=== PATIENT | female | born 1995 | race Caucasian/White ===

== ENCOUNTER 2024-08-08 20:33 | Emergency (ER) | payer BC, SELFPAY ==
[2024-08-08 21:54] VITALS: BP 124/60; PULSE 60; TEMP 36.8; O2SAT 97
[2024-08-08 22:26] VITALS: BP 152/83; PULSE 72; TEMP 36.9; O2SAT 99
--- NOTE | 2024-08-08 23:00 | CT_ITS ---
The [address] [address] Patient Name: JORGE ALBERTO LUNA MRN: [id number] date: 1995 Sex: F Assigned Patient Location: ER Current Patient Location: ER Accession/Order Number: [id number] Exam Date: 08/08/2024 23:59 Report Date: 08/09/2024 01:20 At the request of: PRECIOUS MARKER Procedure: CT abdomen pelvis w con EXAM: CT abdomen pelvis w con HISTORY: LUQ abd pain COMPARISON: CT abdomen pelvis, 12/17/2019. TECHNIQUE: IV contrast enhanced CT imaging the abdomen and pelvis was performed using 100 mL of Omnipaque 300 intravenous contrast. Sagittal and coronal reconstructions are provided. Dose reduction techniques were achieved by using automated exposure control and/or adjustment of mA and/or kV according to patient size and/or use of iterative reconstruction technique. FINDINGS: CT ABDOMEN: The lung bases are clear. The heart is unremarkable. The liver, gallbladder, pancreas, spleen, adrenal glands, stomach, small bowel, aorta and IVC appear within normal limits. There is a 4 mm nonobstructing stone in the midpole of the right kidney on image 46. There are innumerable cysts throughout both kidneys, measuring up to 6.7 cm in the posterior lower pole of the right kidney on image 57. The kidneys are otherwise unremarkable. CT PELVIS: A normal appendix is seen on image 89. The colon, pelvic small bowel loops, urinary bladder and ovaries are unremarkable. There is mild endometrial fluid or thickening, likely physiologic. The uterus is otherwise unremarkable. No inflammatory fat stranding, free fluid, loculated fluid or free air is seen in the abdomen or pelvis. A small benign bone island is seen in the right L2 vertebral body. No acute osseous abnormality or suspicious bony lesion is seen. CT/CT abdomen pelvis w con IMPRESSION: 1. No acute diagnostic abnormality in the abdomen or pelvis. No specific cause of left upper quadrant pain is seen. 2. Normal spleen. No splenomegaly or focal splenic lesion. 3. Nonobstructing 4 mm right renal calculus. 4. Innumerable bilateral renal cystic lesions favoring autosomal dominant polycystic kidney disease. Electronically authenticated by: DAVID DAILEY Date: 08/09/2024 01:20
--- NOTE | 2024-08-08 23:00 | PC.NURSE ---
this patient complains of left upper abdomen pain onset a couple days this patient voices no other
[2024-08-08 23:08] LABS: Basophils Absolute Auto 0.1 10^3/uL (0.0-0.1); Basophils Percent Auto 0.6 % (0.2-2.0); Eosinophils Percent Auto 0.3 % (0.9-7.0); Hemoglobin 14.9 g/dL (12.0-16.0); Immature Granulocytes Abs Auto 0.02 10^3/uL (0.00-0.03); Immature Granulocytes Pct Auto 0.2 % (0.0-0.5); Lymphocytes Absolute Auto 2.5 10^3/uL (1.2-3.8); Mean Corpuscular HGB Conc 34.7 g/dL (29.9-35.2); Mean Corpuscular Hemoglobin 30.4 pg (26.7-34.0); Mean Corpuscular Volume 87.8 fL (81.0-99.0); Mean Platelet Volume 9.8 fL (9.5-13.5); Monocytes Absolute Auto 0.6 10^3/uL (0.3-0.8); Monocytes Percent Auto 6.6 % (1.7-12.0); Neutrophils Absolute Auto 6.1 10^3/uL (1.4-6.5); Neutrophils Percent Auto 65.3 % (43.0-75.0); Platelet Count 354 10^3/uL (150-450); Red Cell Distribution Width 11.7 % (11.0-15.0); White Blood Count 9.3 10^3/uL (4.0-11.0)
--- NOTE | 2024-08-08 23:13 | ED.ABDPAIN1 ---
HPI - Abdominal Pain General Chief Complaint: Abdominal Pain Stated Complaint: ABDOMINAL PAIN Time Seen by Provider: 08/08/24 21:57 Source: patient Mode of arrival: walk-in Limitations: no limitations History of Present Illness HPI narrative: This otherwise healthy 28-year-old female presents for evaluation of left upper quadrant abdominal pain and swelling. The patient states she had an episode of nausea and vomiting earlier today. Afterwards she felt some discomfort in her left upper quadrant and feels that it is swollen. She has a history of polycystic kidney disease. She drinks occasionally on the weekends but denies any history of chronic alcohol use. She denies the possibility of . She has been urinating normally. She has not had a fever. She denies any sore throat. She has not had any diarrhea. She also states for the past several months she has had a decreased appetite and has been less energetic than usual. She denies any weight loss. Related Data Home Medications ?Medication ?Instructions ?Recorded ?Confirmed No Known Home Medications 08/08/24 08/08/24 Allergies Allergy/AdvReac Type Severity Reaction Status Date / Time Penicillins Allergy Unknown Verified 08/08/24 22:28 Review of Systems ROS Status of ROS 10 or more systems reviewed and unremarkable except as noted in history and below Exam Narrative Exam Narrative: Vital signs and Nursing Notes reviewed: Patient is afebrile with a normal pulse, blood pressure is mildly elevated at 152/83, he is not hypoxic with pulse ox of 99% on room air General: Awake, alert, oriented, no acute distress, lying comfortably on the stretcher HEENT: Normocephalic atraumatic, mucous membranes are moist and pink, eyes are clear, normal conjunctiva, vision is grossly intact, posterior pharynx is normal in appearance. Neck: Supple, no meningeal signs, no anterior or posterior cervical lymphadenopathy Chest: Lungs are clear to auscultation with good air entry, there is no wheezing rhonchi or rales appreciated no accessory muscle use, patient is speaking in complete sentences-no chest wall tenderness to palpation CVS: Regular rate and rhythm S1-S2, no murmurs rubs or gallops, pulses are brisk and equal bilaterally ABD: Soft, nondistended, nontender, no rebound guarding or rigidity, bowel sounds are normal, no pulsatile masses appreciated, I do not appreciate any swelling of the left upper quadrant, there is no right upper quadrant tenderness, negative McBurney's point tenderness and negative Montelongo sign. Extremities: Moving all extremities, no lower extremity tenderness or swelling noted, negative Homans' sign, pulses are brisk and equal bilaterally Skin: Normal in appearance without rash,pallor, petechiae or purpura Neuro: No focal deficits Constitutional Vital Signs, click to edit/add: Last Vital Signs Temp 99.5 F 08/09/24 00:29 Pulse 55 L 08/09/24 00:29 Resp 19 08/09/24 00:29 BP 138/87 08/09/24 00:29 Pulse Ox 100 08/09/24 00:29 O2 Del Method Room Air 08/08/24 22:26 Course Vital Signs Vital signs: Vital Signs Temperature 98.3 F 08/08/24 21:54 Pulse Rate 60 08/08/24 21:54 Respiratory Rate 16 08/08/24 21:54 Blood Pressure 124/60 08/08/24 21:54 Pulse Oximetry 97 08/08/24 21:54 Oxygen Delivery Method Room Air 08/08/24 21:54 Temperature 99.5 F 08/09/24 00:29 Pulse Rate 55 L 08/09/24 00:29 Respiratory Rate 19 08/09/24 00:29 Blood Pressure 138/87 08/09/24 00:29 Pulse Oximetry 100 08/09/24 00:29 Oxygen Delivery Method Room Air 08/08/24 22:26 MDM - Abdominal Pain MDM Narrative Medical decision making narrative: This otherwise healthy 28-year-old female presents for evaluation of generalized malaise for the past 2 weeks with decreased energy and an episode of nausea with vomiting today and left upper quadrant abdominal pain. The patient thinks that her spleen is swollen. She denies any injury. She is an occasional drinker. She is not having any fevers or chills. She has no sore throat. She has no bruising or swelling. Her physical exam was benign. Her abdomen is nontender and I do not appreciate any swelling in the right upper quadrant or left upper quadrant. An IV was placed and she was medicated with IV Zofran. Routine labs are reviewed. She has a normal white count and hemoglobin. Electrolytes are normal. Lipase is normal. Urine is normal. Her test is negative. CT scan of the abdomen pelvis was ordered and shows polycystic kidney disease which the patient was aware of as well as a 4 mm stone in the right kidney. The remainder of the CT scan is normal. The CT scan was discussed with the patient and she was given a copy. She is inquiring as to why she has nausea and the pain in her right upper quadrant. I explained to her that it may be a viral syndrome or some degree of constipation however at this time she is stable for discharge. She will be discharged home with a prescription for Zofran and a note for work. Medical Records Attestation: I reviewed the patient's medical records. Medical records narrative: [place] [address] CT Scan Report Signed Patient: JORGE ALBERTO LUNA MR#: [id number] : 1995 Acct:[id number] Age/Sex: 28 / F ADM Date: 08/08/24 Loc: ER Attending Dr: Ordering Physician: Precious Miguel Date of Service: 08/08/24 Procedure(s): CT abdomen pelvis w con Accession Number(s): [id number] cc: Physician,Non-Staff M.D.~ The [place] [id number] Patient Name: JORGE ALBERTO LUNA MRN: [id number] date: 1995 Sex: F Assigned Patient Location: ER Current Patient Location: ER Accession/Order Number: [id number] Exam Date: 08/08/2024 23:59 Report Date: 08/09/2024 01:20 At the request of: PRECIOUS MIGUEL Procedure: CT abdomen pelvis w con EXAM: CT abdomen pelvis w con HISTORY: LUQ abd pain COMPARISON: CT abdomen pelvis, 12/17/2019. TECHNIQUE: IV contrast enhanced CT imaging the abdomen and pelvis was performed using 100 mL of Omnipaque 300 intravenous contrast. Sagittal and coronal reconstructions are provided. Dose reduction techniques were achieved by using automated exposure control and/or adjustment of mA and/or kV according to patient size and/or use of iterative reconstruction technique. FINDINGS: CT ABDOMEN: The lung bases are clear. The heart is unremarkable. The liver, gallbladder, pancreas, spleen, adrenal glands, stomach, small bowel, aorta and IVC appear within normal limits. There is a 4 mm nonobstructing stone in the midpole of the right kidney on image 46. There are innumerable cysts throughout both kidneys, measuring up to 6.7 cm in the posterior lower pole of the right kidney on image 57. The kidneys are otherwise unremarkable. CT PELVIS: A normal appendix is seen on image 89. The colon, pelvic small bowel loops, urinary bladder and ovaries are unremarkable. There is mild endometrial fluid or thickening, likely physiologic. The uterus is otherwise unremarkable. No inflammatory fat stranding, free fluid, loculated fluid or free air is seen in the abdomen or pelvis. A small benign bone island is seen in the right L2 vertebral body. No acute osseous abnormality or suspicious bony lesion is seen. CT/CT abdomen pelvis w con IMPRESSION: 1. No acute diagnostic abnormality in the abdomen or pelvis. No specific cause of left upper quadrant pain is seen. 2. Normal spleen. No splenomegaly or focal splenic lesion. 3. Nonobstructing 4 mm right renal calculus. 4. Innumerable bilateral renal cystic lesions favoring autosomal dominant polycystic kidney disease. Electronically authenticated by: DAVID DAILEY Date: 08/09/2024 01:20 Lab Data Attestation: I reviewed the patient's lab results. Labs: Lab Results 08/08/24 08/08/24 08/08/24 Range/Units 22:33 22:50 23:10 WBC 9.3 (4.0-11.0) 10^3/uL RBC 4.90 (4.20-5.40) 10^6/uL Hgb 14.9 (12.0-16.0) g/dL Hct 43.0 (36.0-48.0) % MCV 87.8 (81.0-99.0) fL MCH 30.4 (26.7-34.0) pg MCHC 34.7 (29.9-35.2) g/dL RDW 11.7 (11.0-15.0) % Plt Count 354 (150-450) 10^3/uL MPV 9.8 (9.5-13.5) fL Neut % (Auto) 65.3 (43.0-75.0) % Lymph % (Auto) 27.0 (20.5-60.0) % [place] % (Auto) 6.6 (1.7-12.0) % Eos % (Auto) 0.3 L (0.9-7.0) % Baso % (Auto) 0.6 (0.2-2.0) % Neut # (Auto) 6.1 (1.4-6.5) 10^3/uL Lymph # (Auto) 2.5 (1.2-3.8) 10^3/uL [place] # (Auto) 0.6 (0.3-0.8) 10^3/uL Eos # (Auto) 0.0 (0.0-0.7) 10^3/uL Baso # (Auto) 0.1 (0.0-0.1) 10^3/uL Abs Immat Gran (auto) 0.02 (0.00-0.03) 10^3/uL Imm/Tot Granulo (auto) 0.2 (0.0-0.5) % Sodium 139 (136-145) mmol/L Potassium 3.8 (3.5-5.1) mmol/L Chloride 104 (98-107) mmol/L Carbon Dioxide 24.2 (21.0-32.0) mmol/L Anion Gap 14.6 BUN 10.0 (7.0-18.0) mg/dL Creatinine 0.82 (0.55-1.02) mg/dL Est GFR ( Amer) >60 (>=60 mL/min/1.73m^2) Est GFR (Non-Af Amer) >60 (>=60 mL/min/1.73m^2) BUN/Creatinine Ratio 12.2 Glucose 87 (74-106) mg/dL Calcium 9.3 (8.5-10.1) mg/dL Total Bilirubin 0.6 (0.2-1.0) mg/dL AST 17 (15-37) U/L ALT 19 (14-59) U/L Alkaline Phosphatase 47 (46-116) U/L Total Protein 7.5 (6.4-8.2) g/dL Albumin 4.0 (3.4-5.0) g/dL Globulin 3.5 g/dL Albumin/Globulin Ratio 1.1 Lipase 21.0 (16.0-77.0) U/L Urine Color Lt. yellow (YELLOW) Urine Clarity Clear (CLEAR) Urine pH 7.5 (5.0-9.0) Ur Specific [place] 1.020 (1.005-1.025) Urine Protein Negative (NEG/TRACE) mg/dL Urine Glucose (UA) Negative (NEGATIVE) mg/dL Urine Ketones Negative (NEGATIVE) mg/dL Urine Occult Blood Negative (NEGATIVE) Urine Nitrite Negative (NEGATIVE) Urine Bilirubin Negative (NEGATIVE) Urine Urobilinogen 0.2 (0.2-1.0) EU/dL Ur Leukocyte Esterase Negative (NEGATIVE) Urine RBC 0-2 (0-2) #/HPF Urine WBC 0-2 A (NONE SEEN) #/HPF Ur Squamous Epith Cells Moderate A (NONE/RARE) #/LPF Urine Crystals None seen (None Seen) #/HPF Urine Bacteria Trace A (NONE SEEN) #/HPF Urine Casts None seen (NONE SEEN) #/LPF Urine Mucus None seen (NONE SEEN) Urine HCG, Qual Negative (NEGATIVE) Monoscreen Negative (NEGATIVE) Discharge Plan Discharge Chief Complaint: Abdominal Pain Clinical Impression: Abdominal pain, Nausea, Polycystic kidney disease Patient Disposition: Home, Self-Care Time of Disposition Decision: 01:39 Condition: Good Prescriptions / Home Meds: No Action No Known Home Medications Print Language: Indonesian Instructions: Abdominal Pain (ED) Referrals: Physician,Non-Staff, [Primary Care Provider] - 1 week
[2024-08-08 23:18] LABS: Alanine Aminotransferase 19 U/L (14-59); Albumin Globulin Ratio 1.1; Alkaline Phosphatase 47 U/L (46-116); Anion Gap 14.6; Aspartate Amino Transferase 17 U/L (15-37); BUN Creatinine Ratio 12.2; Bilirubin Total 0.6 mg/dL (0.2-1.0); Calcium 9.3 mg/dL (8.5-10.1); Carbon Dioxide 24.2 mmol/L (21.0-32.0); Chloride 104 mmol/L (98-107); Estimated GFR (African America >60 (>=60 mL/min/1.73m^2); Estimated GFR (Non-African Ame >60 (>=60 mL/min/1.73m^2); Globulin 3.5 g/dL; Glucose 87 mg/dL (74-106); Potassium 3.8 mmol/L (3.5-5.1); Sodium 139 mmol/L (136-145); Total Protein 7.5 g/dL (6.4-8.2)
[2024-08-08 23:29] LABS: HCG Qualitative Urine* NEGATIVE (NEGATIVE); Internal Control Within Normal Limits
[2024-08-08 23:31] LABS: Bilirubin Urine NEGATIVE (NEGATIVE); Blood Urine NEGATIVE (NEGATIVE); Clarity Urine CLEAR (CLEAR); Color Urine LT. YELLOW (YELLOW); Glucose Urine UA NEGATIVE (NEGATIVE); Ketones Urine NEGATIVE (NEGATIVE); Leukocyte Esterase Urine NEGATIVE (NEGATIVE); Nitrite Urine NEGATIVE (NEGATIVE); Protein Urine NEGATIVE (NEG/TRACE); Urobilinogen Urine 0.2 EU/dL (0.2-1.0); pH Urine 7.5 (5.0-9.0)
[2024-08-08 23:40] LABS: Internal Control Within Normal Limits; Mono Screen NEGATIVE (NEGATIVE)
[2024-08-08 23:45] LABS: Bacteria Urine TRACE #/HPF (NONE SEEN); Cast Seen? NONE SEEN #/LPF (NONE SEEN); Crystals Seen? None Seen #/HPF (None Seen); Mucus Urine NONE SEEN (NONE SEEN); RBC Urine 0-2 #/HPF (0-2); Squamous Epithelial Cell Urine MODERATE #/LPF (NONE/RARE); WBC Urine 0-2 #/HPF (NONE SEEN)
[2024-08-09 00:29] VITALS: BP 138/87; PULSE 55; TEMP 37.5; O2SAT 100
[2024-08-09] MEDS: ONDANSETRON PF 4 MG/2 ML VIAL IV (00:31)
--- NOTE | 2024-08-09 01:12 | PC.NURSE ---
this patient lying awake on the bed looking at cell phone, i informed patient waiting on ct results to come back. this patient voices no concerns and shows no signs of distress
[2024-08-09 01:44] VITALS: BP 129/78; PULSE 59; TEMP 37.1; O2SAT 99
--- NOTE | 2024-08-09 01:51 | PC.NURSE ---
i gave this patient verbal and paper discharge orders and she voices yes to understanding these. at time of discharge this patient voices no concerns and shows no signs of distress
== END 2024-08-09 01:54 | disposition home or self-care (01) ==
PROVIDERS: Emergency Provider Emergency Medicine
DX: R10.12 Left upper quadrant pain (principal); R11.0 Nausea; Q61.3 Polycystic kidney, unspecified; N20.0 Calculus of kidney
CPT/HCPCS: 36415; 74177; 80053; 81001; 83690; 84703; 85025; 86308; 96374; 99284; J2405; Q9967

== ENCOUNTER 2024-11-15 13:48 | Emergency (ER) | payer BC, SELFPAY ==
[2024-11-15 13:53] VITALS: BP 154/92; PULSE 71; TEMP 36.8; O2SAT 98; BMI 29.1
[2024-11-15 14:38] LABS: Bilirubin Urine NEGATIVE (NEGATIVE); Blood Urine TRACE-I (NEGATIVE); Clarity Urine CLEAR (CLEAR); Color Urine YELLOW (YELLOW); Glucose Urine UA NEGATIVE (NEGATIVE); Ketones Urine 40 mg/dL (NEGATIVE); Leukocyte Esterase Urine NEGATIVE (NEGATIVE); Nitrite Urine NEGATIVE (NEGATIVE); Protein Urine TRACE mg/dL (NEG/TRACE); Urobilinogen Urine >=8.0 EU/dL (0.2-1.0)
[2024-11-15] MEDS: 0.9 % SODIUM CHLORIDE 1,000 ML 1000 ML IV ×2 (14:40→15:34)
[2024-11-15] MEDS: ONDANSETRON PF 4 MG/2 ML VIAL IV (14:40)
[2024-11-15 14:42] LABS: Basophils Absolute Auto 0.1 10^3/uL (0.0-0.1); Basophils Percent Auto 0.4 % (0.2-2.0); Eosinophils Percent Auto 0.1 % (0.9-7.0); Hematocrit 41.8 % (36.0-48.0); Hemoglobin 15.4 g/dL (12.0-16.0); Immature Granulocytes Abs Auto 0.07 10^3/uL (0.00-0.03); Immature Granulocytes Pct Auto 0.4 % (0.0-0.5); Lymphocytes Absolute Auto 2.5 10^3/uL (1.2-3.8); Lymphocytes Percent Auto 15.5 % (20.5-60.0); Mean Corpuscular HGB Conc 36.8 g/dL (29.9-35.2); Mean Corpuscular Hemoglobin 31.4 pg (26.7-34.0); Mean Corpuscular Volume 85.3 fL (81.0-99.0); Mean Platelet Volume 9.4 fL (9.5-13.5); Monocytes Absolute Auto 1.2 10^3/uL (0.3-0.8); Monocytes Percent Auto 7.2 % (1.7-12.0); Neutrophils Absolute Auto 12.3 10^3/uL (1.4-6.5); Neutrophils Percent Auto 76.4 % (43.0-75.0); Platelet Count 378 10^3/uL (150-450)
--- NOTE | 2024-11-15 14:44 | PC.NURSE ---
pt reports first and does not currently have an OBGYN, states has been trying OTC meds for nausea and vomiting but not helping.
[2024-11-15 14:45] LABS: Bacteria Urine TRACE #/HPF (NONE SEEN); Cast Seen? NONE SEEN #/LPF (NONE SEEN); Crystals Seen? None Seen #/HPF (None Seen); Mucus Urine NONE SEEN (NONE SEEN); RBC Urine 0-2 #/HPF (0-2); Squamous Epithelial Cell Urine MODERATE #/LPF (NONE/RARE); Urine Culture Indicated NO; WBC Urine NONE SEEN #/HPF (NONE SEEN)
[2024-11-15 15:08] LABS: Alanine Aminotransferase 90 U/L (14-59); Albumin Globulin Ratio 1.1; Albumin Level 4.1 g/dL (3.4-5.0); Alkaline Phosphatase 55 U/L (46-116); Aspartate Amino Transferase 40 U/L (15-37); BUN Creatinine Ratio 14.6; Bilirubin Total 1.8 mg/dL (0.2-1.0); Calcium 9.4 mg/dL (8.5-10.1); Carbon Dioxide 20.6 mmol/L (21.0-32.0); Chloride 98 mmol/L (98-107); Estimated GFR (African America >60 (>=60 mL/min/1.73m^2); Estimated GFR (Non-African Ame >60 (>=60 mL/min/1.73m^2); Globulin 3.8 g/dL; Glucose 111 mg/dL (74-106); Sodium 132 mmol/L (136-145); Total Protein 7.9 g/dL (6.4-8.2)
[2024-11-15 15:12] LABS: HCG Quantitative 80747 mIU/mL
[2024-11-15 15:13] LABS: Potassium 2.6 mmol/L (3.5-5.1)
[2024-11-15] MEDS: POTASSIUM CHLORIDE 10 MEQ ER TABLET 40 MEQ PO (15:21)
[2024-11-15 15:23] VITALS: BP 135/77; PULSE 55; O2SAT 100
--- NOTE | 2024-11-15 15:23 | ED.GENADUL1 ---
HPI HPI - General Adult General Chief complaint: Nausea/Vomiting/Diarrhea Stated complaint: NAUSEA, APPROX 7-10 WKS PG Time Seen by Provider: 11/15/24 13:49 Source: patient Mode of arrival: walk-in History of Present Illness HPI narrative: 28-year-old female presents to the emergency room with chief complaint of nausea and vomiting. She recently discovered she was . She has not followed up or seen [employer]. She believes she is 5 to 7 weeks . This is her first . She states over the last couple of weeks been unable to keep any fluids or food down. She does not currently have an [employer]CH[employer]IC due to insurance reasons. Patient has no other issues or concerns denies any vaginal bleeding discharge or dysuria. Related Data Previous Rx's ?Medication ?Instructions ?Recorded ondansetron 4 mg disintegrating 4 mg PO TID PRN nausea and 11/15/24 tablet vomiting 20 days #30 tabs potassium chloride 20 mEq oral 20 meq PO DAILY 7 days #7 ea 11/15/24 packet Allergies Allergy/AdvReac Type Severity Reaction Status Date / Time Penicillins Allergy Unknown Verified 08/08/24 22:28 Opioid HPI Opioid Management Most Recent Opioid Data: Last Pain Scale 5 08/09/24 00:30 08/09/24 Review of Systems ROS Narrative All Systems are negative except as noted/marked.All systems reviewed and otherwise negative PFSH PFSH Social History Little interest or pleasure in doing things: not at all Feeling down, depressed, or hopeless: not at all Exam Narrative Exam Narrative: All Systems are negative except as noted/marked.All systems reviewed and otherwise negative Nurses note and vital signs reviewed and patient is not hypoxic. General: The patient appears well and in no apparent distress. Patient is resting comfortably on cart. Skin: Warm, dry, no pallor noted. There is no rash noted. Head: Normocephalic, atraumatic Eye: Normal conjunctiva, no drainage, EOMI. PERRL Ears, Nose, Mouth, and Throat: oral mucosa is moist. Nares patent. Mouth without vesicles. Ear canals patent. Tm's without Erythema Cardiovascular: Regular Rate and Rhythm Respiratory: Patient is in no distress, no accessory muscle use, lungs are clear to auscultation, no wheezing, rales or rhonchi Back: non-tender, no CVA tenderness bilaterally to percussion. GI: Normal bowel sounds, no tenderness to palpation, no masses appreciated. No rebound, guarding, or rigidity noted. Musculoskeletal: The patient has no evidence of calf tenderness, no pitting edema, symmetrical pulses noted bilaterally Neurological: A&O x4, normal speech Psychiatric: Cooperative Constitutional Vital Signs, click to edit/add: Last Vital Signs Temp 98.3 F 11/15/24 13:53 Pulse 55 L 11/15/24 15:23 Resp 16 11/15/24 15:23 BP 135/77 11/15/24 15:23 Pulse Ox 100 11/15/24 15:23 Course Vital Signs Vital signs: Vital Signs Temperature 98.3 F 11/15/24 13:53 Pulse Rate 71 11/15/24 13:53 Respiratory Rate 18 11/15/24 13:53 Blood Pressure 154/92 H 11/15/24 13:53 Pulse Oximetry 98 11/15/24 13:53 Temperature 98.3 F 11/15/24 13:53 Pulse Rate 55 L 11/15/24 15:23 Respiratory Rate 16 11/15/24 15:23 Blood Pressure 135/77 11/15/24 15:23 Pulse Oximetry 100 11/15/24 15:23 Medical Decision Making MDM Narrative Medical decision making narrative: 28-year-old female presents to the emergency room with chief complaint of nausea and vomiting. She recently discovered she was . She has not followed up or seen [employer]. She believes she is 5 to 7 weeks . This is her first . She states over the last couple of weeks been unable to keep any fluids or food down. She does not currently have an [employer]CH[employer]IC due to insurance reasons. Patient has no other issues or concerns denies any vaginal bleeding discharge or dysuria. Upon arrival to the emergency room. IV was established. Blood work was obtained.patient was given 2 L of fluid. She is able to tolerate p.o. food crackers at this time. CMP was patient had mildly elevated white blood cell count consistent with hyperemesis sodium is 132 potassium is 2.6. Patient was given IV fluids with Zofran and oral potassium. Patient be able to be discharged home. To Dr. Adams's office. She was given a prescription of Zofran here. We did discuss possibility of Zofran pump once she is established with her [employer]. Patient's vital signs are stable she looks much improved Differential Diagnosis Differential Diagnosis: uti, hyperemesis Medical Records Medical records reviewed: Yes I reviewed the patient's medical records Lab Data Lab results reviewed: Yes I reviewed the patient's lab results Labs: Lab Results 11/15/24 11/15/24 Range/Units 14:09 14:26 WBC 16.0 H (4.0-11.0) 10^3/uL RBC 4.90 (4.20-5.40) 10^6/uL Hgb 15.4 (12.0-16.0) g/dL Hct 41.8 (36.0-48.0) % MCV 85.3 (81.0-99.0) fL MCH 31.4 (26.7-34.0) pg MCHC 36.8 H (29.9-35.2) g/dL RDW 12.0 (11.0-15.0) % Plt Count 378 (150-450) 10^3/uL MPV 9.4 L (9.5-13.5) fL Neut % (Auto) 76.4 H (43.0-75.0) % Lymph % (Auto) 15.5 L (20.5-60.0) % [place] % (Auto) 7.2 (1.7-12.0) % Eos % (Auto) 0.1 L (0.9-7.0) % Baso % (Auto) 0.4 (0.2-2.0) % Neut # (Auto) 12.3 H (1.4-6.5) 10^3/uL Lymph # (Auto) 2.5 (1.2-3.8) 10^3/uL [place] # (Auto) 1.2 H (0.3-0.8) 10^3/uL Eos # (Auto) 0.0 (0.0-0.7) 10^3/uL Baso # (Auto) 0.1 (0.0-0.1) 10^3/uL Abs Immat Gran (auto) 0.07 H (0.00-0.03) 10^3/uL Imm/Tot Granulo (auto) 0.4 (0.0-0.5) % Sodium 132 L (136-145) mmol/L Potassium 2.6 L* (3.5-5.1) mmol/L Chloride 98 (98-107) mmol/L Carbon Dioxide 20.6 L (21.0-32.0) mmol/L Anion Gap 16.0 BUN 13.0 (7.0-18.0) mg/dL Creatinine 0.89 (0.55-1.02) mg/dL Est GFR ( Amer) >60 (>=60 mL/min/1.73m^2) Est GFR (Non-Af Amer) >60 (>=60 mL/min/1.73m^2) BUN/Creatinine Ratio 14.6 Glucose 111 H (74-106) mg/dL Calcium 9.4 (8.5-10.1) mg/dL Total Bilirubin 1.8 H (0.2-1.0) mg/dL AST 40 H (15-37) U/L ALT 90 H (14-59) U/L Alkaline Phosphatase 55 (46-116) U/L Total Protein 7.9 (6.4-8.2) g/dL Albumin 4.1 (3.4-5.0) g/dL Globulin 3.8 g/dL Albumin/Globulin Ratio 1.1 HCG, Quant 24926 mIU/mL Urine Color Yellow (YELLOW) Urine Clarity Clear (CLEAR) Urine pH 7.0 (5.0-9.0) Ur Specific [place] 1.010 (1.005-1.025) Urine Protein Trace (NEG/TRACE) mg/dL Urine Glucose (UA) Negative (NEGATIVE) mg/dL Urine Ketones 40 A (NEGATIVE) mg/dL Urine Occult Blood Trace-i (NEGATIVE) Urine Nitrite Negative (NEGATIVE) Urine Bilirubin Negative (NEGATIVE) Urine Urobilinogen >=8.0 (0.2-1.0) EU/dL Ur Leukocyte Esterase Negative (NEGATIVE) Urine RBC 0-2 (0-2) #/HPF Urine WBC None seen (NONE SEEN) #/HPF Ur Squamous Epith Cells Moderate A (NONE/RARE) #/LPF Urine Crystals None seen (None Seen) #/HPF Urine Bacteria Trace A (NONE SEEN) #/HPF Urine Casts None seen (NONE SEEN) #/LPF Urine Mucus None seen (NONE SEEN) Ur Culture Indicated? No Discharge Plan Discharge Chief Complaint: Nausea/Vomiting/Diarrhea Clinical Impression: Hyperemesis gravidarum, Acute hyponatremia, Acute hypokalemia Patient Disposition: Home, Self-Care Time of Disposition Decision: 16:45 Condition: Good Prescriptions / Home Meds: New ondansetron 4 mg tablet,disintegrating 4 mg PO TID PRN (Reason: nausea and vomiting) 20 Days Qty: 30 0RF potassium chloride 20 mEq packet 20 meq PO DAILY 7 Days Qty: 7 0RF Print Language: Arabic Instructions: Hyperemesis Gravidarum (ED) Referrals: Jaspreet Adams DO [Physician] - 1 week Physician,Non-Staff, MD [Primary Care Provider] - 1 week
[2024-11-15 16:58] VITALS: BP 132/78; PULSE 58; O2SAT 100
== END 2024-11-15 17:00 | disposition home or self-care (01) ==
PROVIDERS: Physician Assistant; Emergency Provider Emergency Medicine
DX: O21.1 Hyperemesis gravidarum with metabolic disturbance (principal); Z3A.01 Less than 8 weeks gestation of pregnancy
CPT/HCPCS: 36415; 80053; 81001; 84702; 85025; 96361; 96374; 99284; J2405

== ENCOUNTER 2024-12-08 14:29 | Emergency (ER) | payer SELFPAY ==
[2024-12-08 14:34] VITALS: BP 122/72; PULSE 56; TEMP 36.7; O2SAT 100; BMI 29.1
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
--- NOTE | 2024-12-08 15:11 | ED_ITS ---
HPI HPI - General Adult General Chief complaint: Nausea/Vomiting/Diarrhea Stated complaint: NAUSEA, VOMITING Time Seen by Provider: 12/08/24 14:50 Source: patient Mode of arrival: walk-in History of Present Illness HPI narrative: Patient is a 29-year-old female who is approximately 10 weeks is coming in for intractable nausea and vomiting. Patient states that she has been having vomiting almost daily during her . Patient was taking vitamins, now she is back to taking her normal vitamins that have iron in them. Patient is going to be seeing Dr. Adams she has not gone to her appointments secondary to not feeling well. Patient does not work. Patient understands if she would go see Dr. Adams, he could help with her intractable nausea and vomiting or possible hyperemesis 3 . She is slightly lightheaded dizzy, no vertigo. No chest pain or shortness of breath. Patient child father is at bedside. No abdominal pain, mild cramping to mid epigastric area. She has no vaginal bleeding, no no pelvic pain, no flank pain, no back pain. Patient says that she has been using Zofran ODT at home with no relief. All systems are negative except as noted/marked. All systems reviewed and otherwise negative. Nurses note and vital signs reviewed and patient is not hypoxic. General: The patient appears well and in no apparent distress. Patient is resting comfortably on cart. Patient is not toxic, lethargic, or listless Skin: Warm, dry, no pallor noted. There is no rash noted. No petechiae, purpura. Head: Normocephalic, atraumatic Eye: Normal conjunctiva, no drainage, EOMI. PERRL Ears, Nose, Mouth, and Throat: oral mucosa is moist. Nares patent. Mouth without vesicles. Cardiovascular: Regular Rate and Rhythm, no murmur, gallop, rub Respiratory: Patient is in no distress, no accessory muscle use, lungs are clear to auscultation, no wheezing, rales or rhonchi Back: non-tender, no CVA tenderness bilaterally to percussion. No CT LS midline pain GI: Mild tenderness to palpation to mid epigastric area, soft, obese, no flank pain bilateral, no suprapubic tenderness to palpation, otherwise no tenderness to palpation, no masses appreciated. No rebound, guarding, or rigidity noted. No distention Musculoskeletal: Patient has full range of motion of all of the extremities, no motor, sensory, or focal neurological deficits Neurological: A&O x4, normal speech Psychiatric: Cooperative Related Data Previous Rx's ?Medication ?Instructions ?Recorded ondansetron 4 mg disintegrating 4 mg PO TID PRN nausea and 11/15/24 tablet vomiting 20 days #30 tabs ondansetron 4 mg disintegrating 4 mg PO Q4H PRN nausea and 12/08/24 tablet vomiting 3 days #6 tabs promethazine 25 mg tablet 25 mg PO BID PRN nausea and 12/08/24 vomiting #7 tabs Allergies Allergy/AdvReac Type Severity Reaction Status Date / Time Penicillins Allergy Unknown Verified 08/08/24 22:28 Opioid HPI Opioid Management Most Recent Opioid Data: Last Pain Scale 5 08/09/24 00:30 08/09/24 PFSH PFSH Social History Little interest or pleasure in doing things: not at all Feeling down, depressed, or hopeless: not at all Exam Constitutional Vital Signs, click to edit/add: Last Vital Signs Temp 98.1 F 12/08/24 14:34 Pulse 56 L 12/08/24 14:34 Resp 16 12/08/24 14:34 BP 122/72 12/08/24 14:34 Pulse Ox 100 12/08/24 14:34 O2 Del Method Room Air 12/08/24 14:34 Course Vital Signs Vital signs: Vital Signs Temperature 98.1 F 12/08/24 14:34 Pulse Rate 56 L 12/08/24 14:34 Respiratory Rate 16 12/08/24 14:34 Blood Pressure 122/72 12/08/24 14:34 Pulse Oximetry 100 12/08/24 14:34 Oxygen Delivery Method Room Air 12/08/24 14:34 Temperature 98.1 F 12/08/24 14:34 Pulse Rate 56 L 12/08/24 14:34 Respiratory Rate 16 12/08/24 14:34 Blood Pressure 122/72 12/08/24 14:34 Pulse Oximetry 100 12/08/24 14:34 Oxygen Delivery Method Room Air 12/08/24 14:34 Medical Decision Making MDM Narrative Medical decision making narrative: Patient seen and examined: IV, electrolytes, CBC, urine, IV Zofran and Compazine. Differential diagnosis includes but is not limited to: Hyperemesis gravidarum, UTI, pyelonephritis, gastroenteritis, food poisoning Diagnostics and management: Patient will have laboratory studies Relevant laboratory interpretation: White blood cells 14, left shift, sodium 134, potassium 3.2,, and carbon dioxide 20, urine shows contamination, urine culture will be done. Radiological studies: None Reevaluation: Patient feels better after IV fluids, IV Zofran and Compazine. Patient has done well oral challenge, patient was given oral potassium 1650 patient is tolerating ice chips and water. Patient be given oral potassium to drink. Shared decision making: I discussed with the patient the necessary laboratory findings and radiological findings. Social barriers to healthcare: There are no food insecurities, there is no issue with transportation, there are no insurance barriers. Disposition: I discussed with the patient initially giving her Zofran ODT that has not been working at home. Patient says that she has been in the ER several times in the last 10 weeks for nausea and vomiting. Patient says that she has been dehydrated and also she has had potassium and other electrolyte abnormalities. Patient has no vaginal bleeding, pelvic pain, no other acute complaints. Lab Data Labs: Lab Results 12/08/24 12/08/24 Range/Units 15:37 15:58 WBC 14.7 H (4.0-11.0) 10^3/uL RBC 4.64 (4.20-5.40) 10^6/uL Hgb 14.5 (12.0-16.0) g/dL Hct 40.1 (36.0-48.0) % MCV 86.4 (81.0-99.0) fL MCH 31.3 (26.7-34.0) pg MCHC 36.2 H (29.9-35.2) g/dL RDW 12.2 (11.0-15.0) % Plt Count 401 (150-450) 10^3/uL MPV 9.0 L (9.5-13.5) fL Seg Neuts % (Manual) 94.0 H (43.0-75.0) Lymphocytes % (Manual) 4.0 L (20.5-60.0) % Monocytes % (Manual) 2.0 (1.7-12.0) % Eosinophils % (Manual) 0.0 L (0.9-7.0) % Basophils % (Manual) 0.0 L (0.2-2.0) % Neutrophils # (Manual) 13.81 H (1.4-6.5) 10^3/uL Lymphocytes # (Manual) 0.58 L (1.20-3.80) 10^3/uL Monocytes # (Manual) 0.29 L (0.30-0.80) 10^3/uL Eosinophils # (Manual) 0.00 (0.00-0.70) 10^3/uL Basophils # (Manual) 0.00 (0.00-0.10) 10^3/uL Sodium 134 L (136-145) mmol/L Potassium 3.2 L (3.5-5.1) mmol/L Chloride 100 (98-107) mmol/L Carbon Dioxide 20.4 L (21.0-32.0) mmol/L Anion Gap 16.8 BUN 11.0 (7.0-18.0) mg/dL Creatinine 0.89 (0.55-1.02) mg/dL Est GFR ( Amer) >60 (>=60 mL/min/1.73m^2) Est GFR (Non-Af Amer) >60 (>=60 mL/min/1.73m^2) BUN/Creatinine Ratio 12.4 Glucose 126 H (74-106) mg/dL Calcium 9.5 (8.5-10.1) mg/dL Lipase 20.0 (16.0-77.0) U/L Urine Color Yellow (YELLOW) Urine Clarity Clear (CLEAR) Urine pH 6.5 (5.0-9.0) Ur Specific [place] 1.025 (1.005-1.025) Urine Protein >=300 A (NEG/TRACE) mg/dL Urine Glucose (UA) Negative (NEGATIVE) mg/dL Urine Ketones >=80 A (NEGATIVE) mg/dL Urine Occult Blood Moderate A (NEGATIVE) Urine Nitrite Negative (NEGATIVE) Urine Bilirubin Negative (NEGATIVE) Urine Urobilinogen 1.0 (0.2-1.0) EU/dL Ur Leukocyte Esterase Negative (NEGATIVE) Urine RBC 5-10 A (0-2) #/HPF Urine WBC 2-5 A (NONE SEEN) #/HPF Ur Squamous Epith Cells Moderate A (NONE/RARE) #/LPF Urine Crystals None seen (None Seen) #/HPF Urine Bacteria Trace A (NONE SEEN) #/HPF Urine Casts None seen (NONE SEEN) #/LPF Urine Mucus Large A (NONE SEEN) Ur Culture Indicated? No ECG Data Attestation: I personally reviewed and interpreted this ECG as follows: (EKG interpretation. Normal sinus rhythm at 83 beats a minute. Normal axis deviation. No acute ST elevation, no acute ectopy. QTc 396.) Discharge Plan Discharge Chief Complaint: Nausea/Vomiting/Diarrhea Clinical Impression: Nausea & vomiting, , Hypokalemia Patient Disposition: Home, Self-Care Time of Disposition Decision: 16:47 Condition: Fair Prescriptions / Home Meds: New promethazine 25 mg tablet 25 mg PO BID PRN (Reason: nausea and vomiting) Qty: 7 0RF ondansetron 4 mg tablet,disintegrating 4 mg PO Q4H PRN (Reason: nausea and vomiting) 3 Days Qty: 6 0RF No Action ondansetron 4 mg tablet,disintegrating 4 mg PO TID PRN (Reason: nausea and vomiting) 20 Days Qty: 30 0RF Print Language: [place] Citizen Instructions: (ED), Hypokalemia (ED), Acute Nausea and Vomiting (ED) Additional Instructions: It is imperative that you call Dr. Adams office tomorrow and make your follow-up appointment. If you continue to have intractable nausea vomiting through , that is one of the multiple reasons why you need to see your FLORICULTURIST for definitive FLORICULTURIST care. Use Zofran as needed orally, use Phenergan suppositories as needed as well. Continue taking your vitamins. Increase Gatorade, Powerade, water Referrals: Physician,Non-Staff, MD [Primary Care Provider] - 1 week
[2024-12-08] MEDS: 0.9 % SODIUM CHLORIDE 1,000 ML 1000 ML IV (15:47)
[2024-12-08] MEDS: PROCHLORPERAZINE 10 MG/2 ML VIAL IV (15:47)
[2024-12-08] MEDS: ONDANSETRON PF 4 MG/2 ML VIAL IV (15:47)
[2024-12-08 16:03] LABS: Hematocrit 40.1 % (36.0-48.0); Hemoglobin 14.5 g/dL (12.0-16.0); Mean Corpuscular HGB Conc 36.2 g/dL (29.9-35.2); Mean Corpuscular Hemoglobin 31.3 pg (26.7-34.0); Mean Corpuscular Volume 86.4 fL (81.0-99.0); Platelet Count 401 10^3/uL (150-450); Red Blood Count 4.64 10^6/uL (4.20-5.40); Red Cell Distribution Width 12.2 % (11.0-15.0); White Blood Count 14.7 10^3/uL (4.0-11.0)
[2024-12-08 16:04] LABS: Bilirubin Urine NEGATIVE (NEGATIVE); Blood Urine MODERATE (NEGATIVE); Clarity Urine CLEAR (CLEAR); Color Urine YELLOW (YELLOW); Glucose Urine UA NEGATIVE (NEGATIVE); Ketones Urine >=80 mg/dL (NEGATIVE); Leukocyte Esterase Urine NEGATIVE (NEGATIVE); Nitrite Urine NEGATIVE (NEGATIVE); Protein Urine >=300 mg/dL (NEG/TRACE); Specific Gravity Urine 1.025 (1.005-1.025); pH Urine 6.5 (5.0-9.0)
[2024-12-08 16:12] LABS: Bacteria Urine TRACE #/HPF (NONE SEEN); Cast Seen? NONE SEEN #/LPF (NONE SEEN); Crystals Seen? None Seen #/HPF (None Seen); Mucus Urine LARGE (NONE SEEN); Squamous Epithelial Cell Urine MODERATE #/LPF (NONE/RARE); Urine Culture Indicated NO
[2024-12-08 16:15] LABS: Anion Gap 16.8; BUN Creatinine Ratio 12.4; Carbon Dioxide 20.4 mmol/L (21.0-32.0); Chloride 100 mmol/L (98-107); Estimated GFR (African America >60 (>=60 mL/min/1.73m^2); Estimated GFR (Non-African Ame >60 (>=60 mL/min/1.73m^2); Glucose 126 mg/dL (74-106); Lymphocytes Absolute Manual 0.58 10^3/uL (1.20-3.80); Monocytes Absolute Manual 0.29 10^3/uL (0.30-0.80); Potassium 3.2 mmol/L (3.5-5.1); Segmented Neut Absolute Manual 13.81 10^3/uL (1.4-6.5); Sodium 134 mmol/L (136-145)
[2024-12-08 16:21] LABS: Calcium 9.5 mg/dL (8.5-10.1)
[2024-12-08] MEDS: POTASSIUM BICARBONATE/CIT 25 MEQ TABLET EFF 50 MEQ PO (16:54)
== END 2024-12-08 17:06 | disposition home or self-care (01) ==
PROVIDERS: Emergency Provider Emergency Medicine
DX: O21.9 Vomiting of pregnancy, unspecified (principal); O99.281 Endocrine, nutritional and metabolic diseases complicating pregnancy, first trimester; E87.6 Hypokalemia; Z3A.10 10 weeks gestation of pregnancy
CPT/HCPCS: 36415; 80048; 81001; 83690; 85007; 85027; 96361; 96374; 96375; 99285; J0780; J2405

== ENCOUNTER 2024-12-11 13:57 | Observation (INO) | payer SELFPAY ==
[2024-12-11] VITALS (8 sets, daily range): BP systolic 117–168; BP diastolic 70–91; PULSE 54–99; TEMP 36.5–37; O2SAT 98–100; BMI 29.1; BMI 28.9
--- NOTE | 2024-12-11 14:36 | ED.GENADUL1 ---
HPI HPI - General Adult General Chief complaint: Nausea/Vomiting/Diarrhea Stated complaint: nausea/vomiting - 10 weeks preg Time Seen by Provider: 12/11/24 13:59 Source: patient Mode of arrival: walk-in Limitations: no limitations History of Present Illness HPI narrative: Patient presents to ED for evaluation of nausea vomiting. Patient is G1, P0 at about 10 weeks. She says she does not have insurance right now and was told to come into the emergency room because she said she had some blood in her vomit and they were concerned so they wanted her to come in for further evaluation. She denies lower abdominal pain or vaginal bleeding. No loss of fluid. Patient does have a history already of hyperemesis and low potassium during . Patient denies fevers or back pain. No UTI symptoms. Patient was supposed to be sent home with suppository Phenergan however they filled tab instead. She said she has not been able to keep anything down at home. Related Data Previous Rx's ?Medication ?Instructions ?Recorded ondansetron 4 mg disintegrating 4 mg PO TID PRN nausea and 11/15/24 tablet vomiting 20 days #30 tabs ondansetron 4 mg disintegrating 4 mg PO Q4H PRN nausea and 12/08/24 tablet vomiting 3 days #6 tabs promethazine 25 mg tablet 25 mg PO BID PRN nausea and 12/08/24 vomiting #7 tabs Allergies Allergy/AdvReac Type Severity Reaction Status Date / Time Penicillins Allergy Unknown Verified 08/08/24 22:28 Opioid HPI Opioid Management Most Recent Opioid Data: Last Pain Scale 5 08/09/24 00:30 08/09/24 Review of Systems ROS Status of ROS 10 or more systems reviewed and unremarkable except as noted in history and below PFSH PFSH Social History Little interest or pleasure in doing things: not at all Feeling down, depressed, or hopeless: not at all Exam Narrative Exam Narrative: General: alert, no acute distress Cardiovascular: regular rate and rhythm, normal peripheral perfusion. Respiratory: Lungs CTA, respirations non labored. Extremities: no deformity, no trauma. Neurological: oriented x 4, LOC appropriate for age. Constitutional Vital Signs, click to edit/add: Last Vital Signs Temp 98.6 F 12/11/24 14:03 Pulse 78 12/11/24 14:03 Resp 18 12/11/24 14:03 BP 131/79 12/11/24 14:03 Pulse Ox 98 12/11/24 14:03 O2 Del Method Room Air 12/11/24 14:03 Course Vital Signs Vital signs: Vital Signs Temperature 98.6 F 12/11/24 14:03 Pulse Rate 78 12/11/24 14:03 Respiratory Rate 18 12/11/24 14:03 Blood Pressure 131/79 12/11/24 14:03 Pulse Oximetry 98 12/11/24 14:03 Oxygen Delivery Method Room Air 12/11/24 14:03 Temperature 98.6 F 12/11/24 14:03 Pulse Rate 78 12/11/24 14:03 Respiratory Rate 18 12/11/24 14:03 Blood Pressure 131/79 12/11/24 14:03 Pulse Oximetry 98 12/11/24 14:03 Oxygen Delivery Method Room Air 12/11/24 14:03 Medical Decision Making MDM Narrative Medical decision making narrative: Patient has a potassium of 2.8. Patient's been admitted in the past for hypokalemia due to her hyperemesis gravidarum. I spoke to Dr. Adams who states to bring the patient back in under Dr. Baca. Dr. Baca is familiar with this patient as well. Dr. Hall said he will begin the work on a Zofran pump for the patient. Patient was given IV potassium as well as p.o. potassium which she was able to keep down point. Patient was given IV hydration as well. Patient will be admitted for replacement of her potassium and Zofran pump. Patient is comfortable with care plan for admission Differential Diagnosis Differential Diagnosis: Hypokalemia hyperemesis gravidarum Medical Records Medical records reviewed: Yes I reviewed the patient's medical records Lab Data Lab results reviewed: Yes I reviewed the patient's lab results Labs: Lab Results 12/11/24 12/11/24 Range/Units 14:00 14:30 WBC 15.8 H (4.0-11.0) 10^3/uL RBC 4.90 (4.20-5.40) 10^6/uL Hgb 15.5 (12.0-16.0) g/dL Hct 41.7 (36.0-48.0) % MCV 85.1 (81.0-99.0) fL MCH 31.6 (26.7-34.0) pg MCHC 37.2 H (29.9-35.2) g/dL RDW 12.4 (11.0-15.0) % Plt Count 442 (150-450) 10^3/uL MPV 9.0 L (9.5-13.5) fL Seg Neuts % (Manual) 83.0 H (43.0-75.0) Lymphocytes % (Manual) 13.0 L (20.5-60.0) % Monocytes % (Manual) 3.0 (1.7-12.0) % Eosinophils % (Manual) 0.0 L (0.9-7.0) % Basophils % (Manual) 1.0 (0.2-2.0) % Neutrophils # (Manual) 13.11 H (1.4-6.5) 10^3/uL Lymphocytes # (Manual) 2.05 (1.20-3.80) 10^3/uL Monocytes # (Manual) 0.47 (0.30-0.80) 10^3/uL Eosinophils # (Manual) 0.00 (0.00-0.70) 10^3/uL Basophils # (Manual) 0.15 H (0.00-0.10) 10^3/uL Sodium 134 L (136-145) mmol/L Potassium 2.8 L* (3.5-5.1) mmol/L Chloride 96 L (98-107) mmol/L Carbon Dioxide 23.0 (21.0-32.0) mmol/L Anion Gap 17.8 BUN 8.0 (7.0-18.0) mg/dL Creatinine 0.83 (0.55-1.02) mg/dL Est GFR ( Amer) >60 (>=60 mL/min/1.73m^2) Est GFR (Non-Af Amer) >60 (>=60 mL/min/1.73m^2) BUN/Creatinine Ratio 9.6 Glucose 92 (74-106) mg/dL Calcium 9.7 (8.5-10.1) mg/dL Total Bilirubin 1.4 H (0.2-1.0) mg/dL AST 41 H (15-37) U/L ALT 89 H (14-59) U/L Alkaline Phosphatase 49 (46-116) U/L Total Protein 7.9 (6.4-8.2) g/dL Albumin 3.9 (3.4-5.0) g/dL Globulin 4.0 g/dL Albumin/Globulin Ratio 1.0 HCG, Quant 24402 mIU/mL Urine Color Dk. orange (YELLOW) Urine Clarity Cloudy A (CLEAR) Urine pH 7.5 (5.0-9.0) Ur Specific [place] 1.015 (1.005-1.025) Urine Protein 30 A (NEG/TRACE) mg/dL Urine Glucose (UA) Negative (NEGATIVE) mg/dL Urine Ketones >=80 A (NEGATIVE) mg/dL Urine Occult Blood Trace-i (NEGATIVE) Urine Nitrite Negative (NEGATIVE) Urine Bilirubin Small A (NEGATIVE) Urine Urobilinogen >=8.0 (0.2-1.0) EU/dL Ur Leukocyte Esterase Negative (NEGATIVE) Urine RBC 0-2 (0-2) #/HPF Urine WBC 0-2 A (NONE SEEN) #/HPF Ur Squamous Epith Cells Rare (NONE/RARE) #/LPF Urine Crystals Seen A (None Seen) #/HPF Amorphous Sediment Many Urine Bacteria Trace A (NONE SEEN) #/HPF Urine Casts None seen (NONE SEEN) #/LPF Urine Mucus Trace A (NONE SEEN) Ur Culture Indicated? No Imaging Data US - abdomen: Attestation: I have reviewed the pertinent imaging results. Discharge Plan Discharge Chief Complaint: Nausea/Vomiting/Diarrhea Clinical Impression: Acute hypokalemia, Hyperemesis gravidarum Patient Disposition: Admitted As Inpatient Time of Disposition Decision: 15:43 Condition: Fair Prescriptions / Home Meds: No Action ondansetron 4 mg tablet,disintegrating 4 mg PO TID PRN (Reason: nausea and vomiting) 20 Days Qty: 30 0RF promethazine 25 mg tablet 25 mg PO BID PRN (Reason: nausea and vomiting) Qty: 7 0RF ondansetron 4 mg tablet,disintegrating 4 mg PO Q4H PRN (Reason: nausea and vomiting) 3 Days Qty: 6 0RF Print Language: [place]ian Referrals: Physician,Non-Staff, MD [Primary Care Provider] - 1 week
[2024-12-11 14:37] LABS: Hematocrit 41.7 % (36.0-48.0); Hemoglobin 15.5 g/dL (12.0-16.0); Mean Corpuscular HGB Conc 37.2 g/dL (29.9-35.2); Mean Corpuscular Hemoglobin 31.6 pg (26.7-34.0); Mean Corpuscular Volume 85.1 fL (81.0-99.0); Platelet Count 442 10^3/uL (150-450); Red Cell Distribution Width 12.4 % (11.0-15.0); White Blood Count 15.8 10^3/uL (4.0-11.0)
[2024-12-11] MEDS: 0.9 % SODIUM CHLORIDE 1,000 ML 1000 ML IV (14:38)
[2024-12-11] MEDS: ONDANSETRON PF 4 MG/2 ML VIAL IV ×2 (14:38→19:58)
[2024-12-11 14:39] LABS: Bilirubin Urine SMALL (NEGATIVE); Blood Urine TRACE-I (NEGATIVE); Clarity Urine CLOUDY (CLEAR); Color Urine DK. ORANGE (YELLOW); Glucose Urine UA NEGATIVE (NEGATIVE); Ketones Urine >=80 mg/dL (NEGATIVE); Leukocyte Esterase Urine NEGATIVE (NEGATIVE); Nitrite Urine NEGATIVE (NEGATIVE); Protein Urine 30 mg/dL (NEG/TRACE); Specific Gravity Urine 1.015 (1.005-1.025); Urobilinogen Urine >=8.0 EU/dL (0.2-1.0); pH Urine 7.5 (5.0-9.0)
[2024-12-11 14:42] LABS: Urine Microscopic Indicated YES
[2024-12-11 14:49] LABS: Bacteria Urine TRACE #/HPF (NONE SEEN); Cast Seen? NONE SEEN #/LPF (NONE SEEN); Mucus Urine TRACE (NONE SEEN); RBC Urine 0-2 #/HPF (0-2); Squamous Epithelial Cell Urine RARE #/LPF (NONE/RARE); Urine Culture Indicated NO; WBC Urine 0-2 #/HPF (NONE SEEN)
[2024-12-11 14:50] LABS: Amorphous Sediment Urine MANY; Crystals Seen? Seen #/HPF (None Seen)
[2024-12-11 14:55] LABS: Alanine Aminotransferase 89 U/L (14-59); Albumin Level 3.9 g/dL (3.4-5.0); Alkaline Phosphatase 49 U/L (46-116); Anion Gap 17.8; Aspartate Amino Transferase 41 U/L (15-37); BUN Creatinine Ratio 9.6; Bilirubin Total 1.4 mg/dL (0.2-1.0); Calcium 9.7 mg/dL (8.5-10.1); Chloride 96 mmol/L (98-107); Estimated GFR (African America >60 (>=60 mL/min/1.73m^2); Estimated GFR (Non-African Ame >60 (>=60 mL/min/1.73m^2); Glucose 92 mg/dL (74-106); Sodium 134 mmol/L (136-145); Total Protein 7.9 g/dL (6.4-8.2)
[2024-12-11 14:58] LABS: Basophils Abs Manual 0.15 10^3/uL (0.00-0.10); Lymphocytes Absolute Manual 2.05 10^3/uL (1.20-3.80); Monocytes Absolute Manual 0.47 10^3/uL (0.30-0.80); Segmented Neut Absolute Manual 13.11 10^3/uL (1.4-6.5)
[2024-12-11 15:00] LABS: Potassium 2.8 mmol/L (3.5-5.1)
[2024-12-11] MEDS: POTASSIUM CHLORIDE 10 MEQ ER TABLET 40 MEQ PO (15:23)
[2024-12-11 15:33] LABS: HCG Quantitative 82514 mIU/mL
[2024-12-11] MEDS: SODIUM CHLORIDE 0.9% IV (15:36)
[2024-12-11] MEDS: POTASSIUM CHLORIDE IV (15:36)
--- NOTE | 2024-12-11 18:07 | P.HP_ITS ---
HPI H&P: HPI History of Present Illness Chief complaint: Hypokalemia Hyperemesis Narrative: Patient currently presented to emergency room with hyperemesis, found to have severe hypokalemia and is admitted for workup and treatment of same Opioid HPI Opioid Management Most Recent Pain and Opioid Data: Last Pain Scale 4 12/11/24 20:00 12/11/24 Last Pain Assessment 12/11/24 20:00 Last ORT Total Score 4 12/11/24 16:31 12/11/24 Last ORT Risk Category Moderate Risk 12/11/24 16:31 12/11/24 PFSH PFSH Social History Highest level of school completed/degree received: high school graduate Little interest or pleasure in doing things: not at all Feeling down, depressed, or hopeless: not at all Meds Home Medications and Allergies Home Medications ?Medication ?Instructions ?Recorded ?Confirmed ?Type ondansetron 4 mg disintegrating 4 mg PO TID PRN nausea and 11/15/24 12/08/24 Rx tablet vomiting 20 days #30 tabs ondansetron 4 mg disintegrating 4 mg PO Q4H PRN nausea and 12/08/24 Rx tablet vomiting 3 days #6 tabs promethazine 25 mg tablet 25 mg PO BID PRN nausea and 12/08/24 Rx vomiting #7 tabs Allergies Allergy/AdvReac Type Severity Reaction Status Date / Time Penicillins Allergy Unknown Verified 08/08/24 22:28 Exam Constitutional Vital Signs, click to edit/add: Last Vital Signs Temp 97.9 F 12/11/24 16:31 Pulse 99 H 12/11/24 16:31 Resp 16 12/11/24 16:31 BP 153/88 H 12/11/24 16:31 Pulse Ox 98 12/11/24 16:31 O2 Del Method Room Air 12/11/24 16:31 Documenting provider has reviewed patient's vital signs: yes Common normals: no apparent distress Chest Common normals: inspection of chest normal Respiratory Common normals: normal respiratory effort GI Common normals: tender Palpation: tender Details: epigastric Neuro Common normals: oriented x3, CN's II-XII intact bilaterally and moves all extremities Results Labs Labs: Short CBC 12/11/24 Range/Units 14:30 WBC 15.8 H (4.0-11.0) 10^3/uL Hgb 15.5 (12.0-16.0) g/dL Hct 41.7 (36.0-48.0) % Plt Count 442 (150-450) 10^3/uL BMP 12/11/24 14:30 Sodium 134 L Potassium 2.8 L* Chloride 96 L Carbon Dioxide 23.0 BUN 8.0 Creatinine 0.83 Glucose 92 Calcium 9.7 Liver Function 12/11/24 Range/Units 14:30 Total Bilirubin 1.4 H (0.2-1.0) mg/dL AST 41 H (15-37) U/L ALT 89 H (14-59) U/L Alkaline Phosphatase 49 (46-116) U/L Albumin 3.9 (3.4-5.0) g/dL Urine 12/11/24 Range/Units 14:00 Urine Color Dk. orange (YELLOW) Urine Clarity Cloudy A (CLEAR) Urine pH 7.5 (5.0-9.0) Ur Specific [place] 1.015 (1.005-1.025) Urine Protein 30 A (NEG/TRACE) mg/dL Urine Glucose (UA) Negative (NEGATIVE) mg/dL Assessment and Plan Assessment and Plan (1) Hyperemesis gravidarum: (2) Hypokalemia: (3) : Plan Admission findings: Sinus tachycardia, borderline elevated hypertension, mild leukocytosis, hypokalemia and elevated liver function test Hyperemesis gravidarum with significant hypokalemia-boluses of potassium, oral potassium, fluids overnight, she is tender in the epigastric area as a possible gastritis is an additional factor for the hyperemesis, start IV Protonix Mild elevation liver function test-check ultrasound, amylase, lipase Intrauterine -plan per obstetrics Admission status: Patient will be placed in observation status, if unable to improve hyperemesis or hypokalemia and requires an additional midnight stay, for medically necessary treatment with a spanning at least 2 midnights and she will be changed to inpatient status
[2024-12-11 18:30] LABS: Amylase 27 U/L (25-115)
[2024-12-11] MEDS: LACTATED RINGER'S SOLUTION 1,000 ML 100 ML IV (18:31)
[2024-12-11] MEDS: PANTOPRAZOLE SODIUM 40 MG VIAL IV (18:31)
[2024-12-11 18:45] LABS: Anion Gap 14.6; BUN Creatinine Ratio 9.3; Calcium 8.8 mg/dL (8.5-10.1); Carbon Dioxide 22.4 mmol/L (21.0-32.0); Chloride 101 mmol/L (98-107); Estimated GFR (African America >60 (>=60 mL/min/1.73m^2); Estimated GFR (Non-African Ame >60 (>=60 mL/min/1.73m^2); Glucose 85 mg/dL (74-106); Sodium 135 mmol/L (136-145)
[2024-12-12] VITALS (12 sets, daily range): BP systolic 136–158; BP diastolic 75–90; PULSE 51–77; TEMP 36.2–36.4; O2SAT 98–99
[2024-12-12] MEDS: ONDANSETRON PF 4 MG/2 ML VIAL IV ×3 (00:40→08:47)
[2024-12-12] MEDS: LACTATED RINGER'S SOLUTION 1,000 ML 100 ML IV (04:40)
[2024-12-12 06:05] LABS: Basophils Absolute Auto 0.1 10^3/uL (0.0-0.1); Basophils Percent Auto 0.4 % (0.2-2.0); Eosinophils Percent Auto 0.1 % (0.9-7.0); Hematocrit 37.4 % (36.0-48.0); Hemoglobin 13.4 g/dL (12.0-16.0); Immature Granulocytes Abs Auto 0.07 10^3/uL (0.00-0.03); Immature Granulocytes Pct Auto 0.6 % (0.0-0.5); Lymphocytes Absolute Auto 2.5 10^3/uL (1.2-3.8); Mean Corpuscular HGB Conc 35.8 g/dL (29.9-35.2); Mean Corpuscular Hemoglobin 30.9 pg (26.7-34.0); Mean Corpuscular Volume 86.4 fL (81.0-99.0); Mean Platelet Volume 9.1 fL (9.5-13.5); Monocytes Absolute Auto 0.8 10^3/uL (0.3-0.8); Monocytes Percent Auto 6.4 % (1.7-12.0); Neutrophils Absolute Auto 9.2 10^3/uL (1.4-6.5); Neutrophils Percent Auto 72.5 % (43.0-75.0); Platelet Count 341 10^3/uL (150-450); Red Blood Count 4.33 10^6/uL (4.20-5.40); Red Cell Distribution Width 12.4 % (11.0-15.0); White Blood Count 12.6 10^3/uL (4.0-11.0)
--- NOTE | 2024-12-12 06:24 | P.DS_ITS ---
DS: Providers Provider Date of admission: 12/11/24 16:02 Primary care physician: Non-Staff Physician, DS: Diagnosis Discharge Diagnosis (1) Hyperemesis gravidarum: (2) Hypokalemia: (3) : Plan Admission findings: Sinus tachycardia, borderline elevated hypertension, mild leukocytosis, hypokalemia and elevated liver function test Hyperemesis gravidarum with significant hypokalemia-boluses of potassium, oral potassium, fluids overnight, she is tender in the epigastric area as a possible gastritis is an additional factor for the hyperemesis, start IV Protonix Mild elevation liver function test-check ultrasound, amylase, lipase Intrauterine -plan per obstetrics Admission status: Patient will be placed in observation status, if unable to improve hyperemesis or hypokalemia and requires an additional midnight stay, for medically necessary treatment with a spanning at least 2 midnights and she will be changed to inpatient status ? DS: Summary Hospital Course Hospital Course: Admitted with hyperemesis of and severe hypokalemia, she did require 3 bolus doses of IV potassium, her potassium after that was improved, still not perfectly normal but much improved and no further emesis after hydration, so should be discharged home in improving condition. Medications to this list. Follow-up with PCP and OB within the next week. Elevated liver function test concerning for acute cholelithiasis or cholecystitis, ultrasound of the abdomen is negative Time Spent with Patient Time attestation: Total time spent providing and/or coordinating discharge services: Exam Constitutional Vital Signs, click to edit/add: Last Vital Signs Temp 97.5 F L 12/12/24 04:00 Pulse 63 12/12/24 06:00 Resp 18 12/12/24 04:00 BP 158/90 H 12/12/24 04:00 Pulse Ox 99 12/12/24 04:00 O2 Del Method Room Air 12/12/24 04:00 Documenting provider has reviewed patient's vital signs: yes Common normals: no apparent distress Chest Common normals: inspection of chest normal Respiratory Common normals: normal respiratory effort GI Common normals: non-tender (Epigastric tenderness resolved) Palpation: tender (Epigastric tenderness resolved) Details: not epigastric Neuro Common normals: oriented x3, CN's II-XII intact bilaterally and moves all extremities DS: Data Data Completed and Pending Labs on day of discharge: Labs from last 24 hours 12/12/24 12/11/24 12/11/24 05:38 18:32 14:30 WBC 12.6 H 15.8 H RBC 4.33 4.90 Hgb 13.4 15.5 Hct 37.4 41.7 MCV 86.4 85.1 MCH 30.9 31.6 MCHC 35.8 H 37.2 H RDW 12.4 12.4 Plt Count 341 442 MPV 9.1 L 9.0 L Neut % (Auto) 72.5 Lymph % (Auto) 20.0 L Simpson % (Auto) 6.4 Eos % (Auto) 0.1 L Baso % (Auto) 0.4 Neut # (Auto) 9.2 H Lymph # (Auto) 2.5 Simpson # (Auto) 0.8 Eos # (Auto) 0.0 Baso # (Auto) 0.1 Abs Immat Gran (auto) 0.07 H Seg Neuts % (Manual) 83.0 H Lymphocytes % (Manual) 13.0 L Monocytes % (Manual) 3.0 Eosinophils % (Manual) 0.0 L Basophils % (Manual) 1.0 Imm/Tot Granulo (auto) 0.6 H Neutrophils # (Manual) 13.11 H Lymphocytes # (Manual) 2.05 Monocytes # (Manual) 0.47 Eosinophils # (Manual) 0.00 Basophils # (Manual) 0.15 H Sodium 135 L 134 L Potassium 3.0 L 2.8 L* Chloride 101 96 L Carbon Dioxide 22.4 23.0 Anion Gap 14.6 17.8 BUN 7.0 8.0 Creatinine 0.75 0.83 Est GFR ( Amer) >60 >60 Est GFR (Non-Af Amer) >60 >60 BUN/Creatinine Ratio 9.3 9.6 Glucose 85 92 Calcium 8.8 9.7 Total Bilirubin 1.4 H AST 41 H ALT 89 H Alkaline Phosphatase 49 Total Protein 7.9 Albumin 3.9 Globulin 4.0 Albumin/Globulin Ratio 1.0 Amylase 27 Lipase 18.0 HCG, Quant [id number] Urine Color Urine Clarity Urine pH Ur Specific [place] Urine Protein Urine Glucose (UA) Urine Ketones Urine Occult Blood Urine Nitrite Urine Bilirubin Urine Urobilinogen Ur Leukocyte Esterase Urine RBC Urine WBC Ur Squamous Epith Cells Urine Crystals Amorphous Sediment Urine Bacteria Urine Casts Urine Mucus Ur Culture Indicated? 12/11/24 14:00 WBC RBC Hgb Hct MCV MCH MCHC RDW Plt Count MPV Neut % (Auto) Lymph % (Auto) Simpson % (Auto) Eos % (Auto) Baso % (Auto) Neut # (Auto) Lymph # (Auto) Simpson # (Auto) Eos # (Auto) Baso # (Auto) Abs Immat Gran (auto) Seg Neuts % (Manual) Lymphocytes % (Manual) Monocytes % (Manual) Eosinophils % (Manual) Basophils % (Manual) Imm/Tot Granulo (auto) Neutrophils # (Manual) Lymphocytes # (Manual) Monocytes # (Manual) Eosinophils # (Manual) Basophils # (Manual) Sodium Potassium Chloride Carbon Dioxide Anion Gap BUN Creatinine Est GFR ( Amer) Est GFR (Non-Af Amer) BUN/Creatinine Ratio Glucose Calcium Total Bilirubin AST ALT Alkaline Phosphatase Total Protein Albumin Globulin Albumin/Globulin Ratio Amylase Lipase HCG, Quant Urine Color Dk. orange Urine Clarity Cloudy A Urine pH 7.5 Ur Specific [place] 1.015 Urine Protein 30 A Urine Glucose (UA) Negative Urine Ketones >=80 A Urine Occult Blood Trace-i Urine Nitrite Negative Urine Bilirubin Small A Urine Urobilinogen >=8.0 Ur Leukocyte Esterase Negative Urine RBC 0-2 Urine WBC 0-2 A Ur Squamous Epith Cells Rare Urine Crystals Seen A Amorphous Sediment Many Urine Bacteria Trace A Urine Casts None seen Urine Mucus Trace A Ur Culture Indicated? No Discharge Plan Discharge Disposition: Home, Self-Care Condition: Fair Discharge Medications: New pantoprazole [Protonix] 40 mg tablet,delayed release (DR/EC) 40 mg PO DAILY Qty: 30 11RF potassium chloride 20 mEq tablet extended release 20 meq PO TID Qty: 90 11RF promethazine 25 mg tablet 25 mg PO Q4H PRN (Reason: nausea and vomiting) Qty: 20 0RF promethazine 25 mg suppository 25 mg AL Q4H PRN (Reason: nausea and vomiting) Qty: 36 0RF Continued ondansetron 4 mg tablet,disintegrating 4 mg PO TID PRN (Reason: nausea and vomiting) 20 Days Qty: 30 0RF promethazine 25 mg tablet 25 mg PO BID PRN (Reason: nausea and vomiting) Qty: 7 0RF Activity: increase activity as tolerated Diet: advance to your usual diet Print Language: Sinhala Patient Instructions: Hyperemesis Gravidarum (DC) Forms: Portal Instructions Follow Up Appointments: December 19 @ 10:30am with Dr. Adams [phone] Discharge Date/Time: 12/12/24 16:18
[2024-12-12 06:33] LABS: Alanine Aminotransferase 76 U/L (14-59); Albumin Level 3.2 g/dL (3.4-5.0); Alkaline Phosphatase 42 U/L (46-116); Anion Gap 16.6; Aspartate Amino Transferase 39 U/L (15-37); BUN Creatinine Ratio 10.9; Bilirubin Total 1.5 mg/dL (0.2-1.0); Calcium 8.5 mg/dL (8.5-10.1); Carbon Dioxide 18.6 mmol/L (21.0-32.0); Chloride 102 mmol/L (98-107); Estimated GFR (African America >60 (>=60 mL/min/1.73m^2); Estimated GFR (Non-African Ame >60 (>=60 mL/min/1.73m^2); Globulin 3.2 g/dL; Glucose 88 mg/dL (74-106); Potassium 3.2 mmol/L (3.5-5.1); Sodium 134 mmol/L (136-145); Total Protein 6.4 g/dL (6.4-8.2)
--- OUTSIDE RECORDS SUMMARY | 2024-12-12 07:10 | XMS_ITS | CCD ---
Author Organization [facility] Care Team Providers Care Shingle Packer Name Role Phone ADEOLA COHEN Admitting Unavailable ADEOLA COHEN Attending Unavailable TAMRA, DR BUTLER Primary Care Unavailable ADELOA COHEN Consulting Unavailable TAMRA, DR BUTLER Primary Care Unavailable ADRIAN CHRISTIANSEN Admitting Unavailable ADRIAN CHRISTIANSEN Attending Unavailable DR MACK SAMUESL Consulting Unavailable JOSE, DR SHERMAN Consulting Unavailable ADRIAN CHRISTIANSEN Consulting Unavailable NO FAMILY, PHYSICIAN Primary Care Provider DO Basilio Graham Emergency Provider [phone] Basilio Azevedo Attending Unavailable Basilio Azevedo Admitting Unavailable NO FAMILY, PHYSICIAN Primary Care Unavailable Allergies Allergy Classification Reported Allergen(s) Allergy Type Date of Onset Reaction(s) Facility (1 source) Penicillins Drug allergy (disorder) 09-28-2014 [facility] Repository (1 source) Penicillins Drug allergy (disorder) 02-22-2022 [facility] Repository Medications Current Medications Medication Drug [...] 04-05-2021 End: 02-20-2022 Promethazine Discontinued 25 MG IN Q6H April 04, 2021 11:00pm February 20, 2022 7:12am Start: 12-27-2019 End: 08-04-2020 take 12.5 mg by mouth every six hours Promethazine Discontinued 12.5 MG PO Q6H December 26, 2019 11:00pm August 04, 2020 9:41am Completed/Discontinued Medications Medication Drug Class(es) Dates Sig (Normalized) Sig (Original) [id number] 200 actuat albuterol 0.09 mg/actuat metered dose [...] D2) 1,250 mcg (50,000 unit) Capsule Discontinued [id number] UNIT PO every week 4 December 26, [...] Amylase [Catalytic activity/Vol] 32 U/L Normal 29-103 [facility] Comment on above: Performed By: #### L YTES, GLU, ETOH, CK, PT, BUN, LIPASE, CREAT, SAMUEL, AST, CBC ####[facility] [id number] [address] Aspartate aminotransferase [ Enzymatic activity/volume] in Serum or PlasmaOrdered By: Basilio Azevedo on 08-11-2023 AST [Catalytic activity/Vol] 24 U/L Normal 13-39 [facility] Comment on above: Performed By: #### L YTES, GLU, ETOH, CK, PT, BUN, LIPASE, CREAT, SAMUEL, AST, CBC ####[facility] Automated basophil %Ordered By: Basilio Azevedo on 08-11-2023 Basophils/100 WBC (Bld) 0.9 % Normal . [facility] Comment on above: Performed By: #### L YTES, GLU, ETOH, CK, PT, BUN, LIPASE, CREAT, SAMUEL, AST, CBC #### [facility] [address] Automated basophil countOrde red By: Basilio Azevedo on 08-11-2023 Basophils (Bld) [#/Vol] 0.1 10*3/uL Normal 0.0-0.2 [facility] Comment on above: Result Comment: PERF ORMED BY: [place] [address] PATHOLOGIST [employer] KEMAR DUKE M.D. Performed By: #### L YTES, GLU, ETOH, CK, PT, BUN, LIPASE, CREAT, SAMUEL, AST, CBC #### [address] Automated blood monocyte cou ntOrdered By: Basilio Azevedo on 08-11-2023 Monocytes (Bld) [#/Vol] 0.5 10*3/uL Normal 0.0-0.8 [facility] Comment on above: Performed By: #### L YTES, GLU, ETOH, CK, PT, BUN, LIPASE, CREAT, SAMUEL, AST, CBC #### [address] Automated eosinophil %Ordere d By: Basilio Azevedo on 08-11-2023 Eosinophils/100 WBC (Bld) 1.3 % Normal . [facility] Comment on above: Performed By: #### L YTES, GLU, ETOH, CK, PT, BUN, LIPASE, CREAT, SAMUEL, AST, CBC #### [address] Automated eosinophil countOr dered By: Basilio Azevedo on 08-11-2023 Eosinophils (Bld) [#/Vol] 0.1 10*3/uL Normal 0.0-0.45 [facility] Comment on above: Performed By: #### L YTES, GLU, ETOH, CK, PT, BUN, LIPASE, CREAT, SAMUEL, AST, CBC #### [address] Automated erythrocytes count in urine sediment (number/area)Ordered By: Basilio Azevedo on 08-11-2023 RBC Auto (Urine sed) [#/Area] 10-19 [HPF] 0-4 [facility] Automated leukocytes count i n urine sediment (number/area)Ordered By: Basilio Azevedo on 08-11-2023 WBC Auto (Urine sed) [#/Area] 3-4 [HPF] 0-4 [facility] Automated monocyte %Ordered By: Basilio Azevedo on 08-11-2023 Monocytes/100 WBC (Bld) 6.9 % Normal . [facility] Comment on above: Performed By: #### L YTES, GLU, ETOH, CK, PT, BUN, LIPASE, CREAT, SAMUEL, AST, CBC #### [address] Automated neutrophil %Ordere d By: Basilio Azevedo on 08-11-2023 Neutrophils/100 WBC (Bld) 67.8 % Normal . [facility] Comment on above: Performed By: #### L YTES, GLU, ETOH, CK, PT, BUN, LIPASE, CREAT, SAMUEL, AST, CBC #### [facility] [address] Automated urine color determ inationOrdered By: Basilio Azevedo on 08-11-2023 Color (U) Yellow Normal Yellow [facility] Comment on above: Order Comment: Name Collection Type:: Clean-Voided Midstream Performed By: #### U HCG, ADDONUAPLUS, URDS #### [facility] [address] Barbiturates [Presence] in U rine by Screen methodOrdered By: Basilio Azevedo on 08-11-2023 Barbiturates Screen Ql (U) Negative Negative [facility] Benzodiazepines Screen Ql (U )Ordered By: Basilio Azevedo on 08-11-2023 Benzodiazepines Ql (U) Negative Negative [facility] Benzoylecgonine [Presence] i n Urine by Screen methodOrdered By: Basilio Azevedo on 08-11-2023 Benzoylecgonine Screen Ql (U) Negative Negative [facility] Bilirubin Test strip Ql (U)O rdered By: Basilio Azevedo on 08-11-2023 Bilirubin Ql (U) Negative Negative [facility] CT abdomen pelvis w conon CT abdomen pelvis w con [facility] [address] CT Scan Report Signed Patient: Chente Gonzalez MR#: [id number] 62 : 1995 Acct:[id number] Age/Sex: 27 / F ADM Date: 08/11/23 Loc: ER Room: Type: [facility] ER Attending Dr: Copies to: Basilio Azevedo DO Ordering Provider: Basilio Azevedo DO Date of Service: 08/11/23 CT/CT chest w con: f ([id number]) CT/CT abdomen pelvis w con: f CT [...] Fercho Huddleston M.D.08/11/2023 8:06 PM Dictation Location: [place] [address] Transcribed By: [facility] 08/11/232005 Dictated By: Fercho Huddleston DO 08/11/231956 Signed By: 08/11/232005 Normal [facility] CT cervical spine wo conon 1 10-12-2022 CT cervical spine wo [facility] [place] [address] [place] [address] CT Scan Report Signed Patient: Chente Gonzalez MR#: [id number] 62 : 1995 Acct:[id number] Age/Sex: 27 / F ADM Date: 08/11/23 Loc: ER Room: Type: [facility] ER Attending Dr: Copies to: Basilio Azevedo [...] Fercho Huddleston M.D.08/11/2023 7:55 PM Dictation Location: [place] [address] Transcribed By: [facility] 08/11/231954 Dictated By: Fercho Huddleston DO 08/11/231952 Signed By: 08/11/231954 Normal [facility] CT facial bones wo champ CT facial bones wo [facility] [place] [address] CT Scan Report Signed Patient: Chente Gonzalez MR#: [id number] [birth year] : 1995 Acct:[id number] Age/Sex: 27 / F ADM Date: 08/11/23 Loc: ER Room: Type: [facility] ER Attending Dr: Copies to: Basilio Azevedo [...] DO 08/11/231954 Signed By: 08/11/231956 Normal [facility] CT head/brain wo conon 08-11 CT head/brain wo con [facility] [address] CT Scan Report Signed Patient: Chente Gonzalez MR#: [id number] [birth year] : 1995 Acct:[id number] Age/Sex: 27 / F ADM Date: 08/11/23 Loc: ER Room: Type: [facility] ER Attending Dr: Copies to: Basilio Azevedo [...] DO 08/11/231951 Signed By: 08/11/231952 Normal [facility] Cannabinoids [Presence] in U rine by Screen methodOrdered By: Basilio Azevedo on 08-11-2023 Cannabinoids Screen Ql (U) Positive Negative [facility] Comment on above: These are unconfirme d results and should not be used for legal purposes. Drug Cut-Off Concentration: AMPH 1000 ng/mL THOMAS 200 ng/mL ARTHUR 200 ng/mL COCM 300 ng/mL OP 300 ng/mL PCP 25 ng/mL THC 20 ng/mL Carbon dioxide, total [Moles /volume] in Serum or PlasmaOrdered By: Basilio Azevedo on 08-11-2023 CO2 [Moles/Vol] 17.8 mmol/L Low 21.0-31.0 [facility] Comment on above: Performed By: #### L YTES, GLU, ETOH, CK, PT, BUN, LIPASE, CREAT, SAMUEL, AST, CBC ####[facility] [id number] Chloride [Moles/volume] in S marline or PlasmaOrdered By: Basilio Azevedo on 08-11-2023 Chloride [Moles/Vol] 108 mmol/L High 98-107 [facility] Comment on above: Performed By: #### L YTES, GLU, ETOH, CK, PT, BUN, LIPASE, CREAT, SAMUEL, AST, CBC ####[facility] [id number] [address] Complete Blood Count Auto Di ffon 08-11-2023 Mean Corpuscular HGB Conc 35.1 g/dL High 32.0-35.0 [facility] Comment on above: Performed By: #### L YTES, GLU, ETOH, CK, PT, BUN, LIPASE, CREAT, SAMUEL, AST, CBC #### [facility] [address] [place] [address] [place] Monocytes/100 WBC (Bld) 17.99 % Normal 0.00-20.00 [facility] Comment on above: Performed By: #### L YTES, GLU, ETOH, CK, PT, BUN, LIPASE, CREAT, SAMUEL, AST, CBC #### [facility] [address] [place] [address] NRBC% 0.1 /100{WBC} Normal 0-0.5 [facility] Comment on above: Performed By: #### L YTES, GLU, ETOH, CK, PT, BUN, LIPASE, CREAT, SAMUEL, AST, CBC #### [address] Creatine kinase [Enzymatic a ctivity/volume] in Serum or PlasmaOrdered By: Basilio Azevedo on 08-11-2023 CK [Catalytic activity/Vol] 225 U/L High 30-223 [facility] Comment on above: Result Comment: PERF ORMED BY: [place] [address] PATHOLOGIST [employer] KEMAR DUKE M.D. Performed By: #### L YTES, GLU, ETOH, CK, PT, BUN, LIPASE, CREAT, SAMUEL, AST, CBC ####[address] Creatinineon 08-11-2023 Creatinine Clr Calc Pharmacy 138.27 Normal [facility] Comment on above: Performed By: #### L YTES, GLU, ETOH, CK, PT, BUN, LIPASE, CREAT, SAMUEL, AST, CBC ####[address] GFR/1.73 sq M.predicted MDRD (S/P/Bld) [Vol rate/Area] mL/min/{1.73_m2} Normal [facility] Comment on above: Performed By: #### L YTES, GLU, ETOH, CK, PT, BUN, LIPASE, CREAT, SAMUEL, AST, CBC ####[address] Creatinine [Mass/volume] in Serum or PlasmaOrdered By: Basilio Azevedo on 08-11-2023 Creatinine [Mass/Vol] 0.68 mg/dL Normal 0.60-1.20 [facility] Comment on above: Performed By: #### L YTES, GLU, ETOH, CK, PT, BUN, LIPASE, CREAT, SAMUEL, AST, CBC ####[facility] [id number] [place] [address] [place] Dipstick and Microscopicon 1 10-12-2022 Appearance (U) Clear Normal Clear [facility] Comment on above: Order Comment: Name Collection Type:: Clean-Voided Midstream Performed By: #### U HCG, ADDONUAPLUS, URDS #### [facility] [address] Bacteria,Urine None Seen Normal None Seen [facility] Comment on above: Order Comment: Name Collection Type:: Clean-Voided Midstream Performed By: #### U HCG, ADDONUAPLUS, URDS #### [facility] [address] [place] [address] Bilirubin,Urine Negative Normal Negative [facility] Comment on above: Order Comment: Name Collection Type:: Clean-Voided Midstream Performed By: #### U HCG, ADDONUAPLUS, URDS #### [facility] [address] [place] [address] Glucose Ql (U) Normal Normal Normal [facility] Comment on above: Order Comment: Name Collection Type:: Clean-Voided Midstream Performed By: #### U HCG, ADDONUAPLUS, URDS #### [facility] [address] [place] [address] [place] Hyaline Casts,Urine 0-8 Normal 0-8 [facility] Comment on above: Order Comment: Name Collection Type:: Clean-Voided Midstream Performed By: #### U HCG, ADDONUAPLUS, URDS #### [facility] [address] [place] [address] [place] Ketones Ql (U) Trace High Negative [facility] Comment on above: Order Comment: Name Collection Type:: Clean-Voided Midstream Performed By: #### U HCG, ADDONUAPLUS, URDS #### [facility] [address] [place] [address] Leukocyte esterase Test strip Ql (U) Negative Normal Negative [facility] Comment on above: Order Comment: Name Collection Type:: Clean-Voided Midstream Performed By: #### U HCG, ADDONUAPLUS, URDS #### [address] Nitrite,Urine Negative Normal Negative [facility] Comment on above: Order Comment: Name Collection Type:: Clean-Voided Midstream Performed By: #### U HCG, ADDONUAPLUS, URDS #### [address] Occult Blood,Urine 2+ High Negative [facility] Comment on above: Order Comment: Name Collection Type:: Clean-Voided Midstream Performed By: #### U HCG, ADDONUAPLUS, URDS #### [address] RBC,Urine 10-19 High 0-4 [facility] Comment on above: Order Comment: Name Collection Type:: Clean-Voided Midstream Performed By: #### U HCG, ADDONUAPLUS, URDS #### [address] Specificy [place],Urine 1.026 Normal 1.001-1.030 [facility] Comment on above: Order Comment: Name Collection Type:: Clean-Voided Midstream Performed By: #### U HCG, ADDONUAPLUS, URDS #### [address] Squamous Epithelial Cell,Urine 0-1 Normal 0-2 [facility] Comment on above: Order Comment: Name Collection Type:: Clean-Voided Midstream Performed By: #### U HCG, ADDONUAPLUS, URDS #### [address] Urobilinogen,Urine Normal Normal Normal [facility] Comment on above: Order Comment: Name Collection Type:: Clean-Voided Midstream Performed By: #### U HCG, ADDONUAPLUS, URDS #### [address] WBC,Urine 3-4 Normal 0-4 [facility] Comment on above: Order Comment: Name Collection Type:: Clean-Voided Midstream Performed By: #### U HCG, ADDONUAPLUS, URDS #### [place] [address] [place] Drug Screen,Urineon 08-11-20 Amphetamine Screen,Urine Negative Normal Negative [facility] Comment on above: Performed By: #### U HCG, ADDONUAPLUS, URDS #### [place] [address] [place] Barbiturate Screen,Urine Negative Normal Negative [facility] Comment on above: Performed By: #### U HCG, ADDONUAPLUS, URDS #### [place] [address] [place] Benzodiazepines Screen,Urine Negative Normal Negative [facility] Comment on above: Performed By: #### U HCG, ADDONUAPLUS, URDS #### [address] Cannabinoid Screen,Urine Positive High Negative [facility] Comment on above: Result Comment: Thes e are unconfirmed results and should not be used for legal purposes. Drug Cut-Off Concentration: AMPH 1000 ng/mL THOMAS 200 ng/mL ARTHUR 200 ng/mL COCM 300 ng/mL OP 300 ng/mL PCP 25 ng/mL THC 20 ng/mL PERFORMED BY: [place] [address] PATHOLOGIST [employer] KEMAR DUKE M.D. Performed By: #### U HCG, ADDONUAPLUS, URDS #### [address] Cocaine Screen,Urine Negative Normal Negative [facility] Comment on above: Performed By: #### U HCG, ADDONUAPLUS, URDS #### [place] [address] [place] Opiate Screen,Urine Negative Normal Negative [facility] Comment on above: Performed By: #### U HCG, ADDONUAPLUS, URDS #### [address] Phencyclidine Screen,Urine Negative Normal Negative [facility] Comment on above: Performed By: #### U HCG, ADDONUAPLUS, URDS #### [facility] [address] [place] [id number] [facility] ECG 12 lead ECGon 08-11-2023 ECG 12 lead ECG [facility] [place] [address] [place] [address] Electrocardiograph Report Signed Patient: Chente Gonzalez MR#: [id number] 62 : 1995 Acct:[id number] Age/Sex: 27 / F ADM Date: 08/11/23 Loc: ER Room: Type: [facility] ER Attending Dr: Ordering Provider: Basilio Azevedo [...] Anterior leads Confirmed by BASILIO AZEVEDO DO ([id number]) on 08/12/2023 1:42:26 AM Referred By: Electronically Signed By:BASILIO AZEVEDO DO Transcribed By: MUS Signed By Basilio Azevedo DO 08/12 0142 Normal [facility] Erythrocyte distribution wid th [Ratio] by Automated countOrdered By: Basilio Azevedo on 08-11-2023 Erythrocyte distribution width (RBC) [Ratio] 12.9 % Normal 11.9-15.3 [facility] Comment on above: Performed By: #### L YTES, GLU, ETOH, CK, PT, BUN, LIPASE, CREAT, SAMUEL, AST, CBC #### [facility] [address] [place], [place] [id number] [facility] Erythrocytes [#/volume] in B lood by Automated countOrdered By: Basilio Azevedo on 08-11-2023 RBC (Bld) [#/Vol] 4.66 10*6/uL Normal 3.60-5.00 [facility] Comment on above: Performed By: #### L YTES, GLU, ETOH, CK, PT, BUN, LIPASE, CREAT, SAMUEL, AST, CBC #### [facility] [address] Ethanol [Mass/volume] in Ser um or PlasmaOrdered By: Basilio Azevedo on 08-11-2023 Ethanol [Mass/Vol] mg/dL Normal [facility] Comment on above: Performed By: #### L YTES, GLU, ETOH, CK, PT, BUN, LIPASE, CREAT, SAMUEL, AST, CBC #### [facility] [address] Ethanol [Mass/Vol] TNP [facility] Comment on above: Test not performed Ethyl Alcohol Profileon 07-28 Percent Ethanol Not performed Normal [facility] Comment on above: Result Comment: PERF ORMED BY: [place] [address] PATHOLOGIST [employer] KEMAR DUKE M.D. Performed By: #### L YTES, GLU, ETOH, CK, PT, BUN, LIPASE, CREAT, SAMUEL, AST, CBC #### [facility] [address] Glucose [Mass/volume] in Ser um or PlasmaOrdered By: Basilio Azevedo on 08-11-2023 Glucose [Mass/Vol] 109 mg/dL High 70-100 [facility] Comment on above: ADA recommended refe rence rangeRandom Glucose Reference Range is dependent on time and content of last meal. Glucose of more than 200 mg/dL in a nonstressed, ambulatory subject supports the diagnosis of Diabetes Mellitus. Result Comment: [place] om Glucose Reference Range is dependent on time and content of last meal. Glucose of more than 200 mg/dL in a nonstressed, ambulatory subject supports the diagnosis of Diabetes Mellitus. ADA recommended reference range Performed By: #### L YTES, GLU, ETOH, CK, PT, BUN, LIPASE, CREAT, SAMUEL, AST, CBC ####[facility] Ock[address] HCG ( test) IA.rapi d Ql (U)Ordered By: Basilio Azevedo on 08-11-2023 HCG ( test) Ql (U) Negative [facility] HCG,Urineon 08-11-2023 Beta HCG ( test) Ql (U) Negative Normal [facility] Comment on above: Order Comment: Name Collection Type:: Clean-Voided Midstream Result Comment: PERF ORMED BY: [place] [address] PATHOLOGIST [employer] KEMAR DUKE M.D. Performed By: #### U HCG, ADDONUAPLUS, URDS #### [facility] [address] [place] [address] Hematocrit [Volume Fraction] of Blood by Automated countOrdered By: Basilio Azevedo on 08-11-2023 Hematocrit (Bld) [Volume fraction] 40.4 % Normal 34.0-46.4 [facility] Comment on above: Performed By: #### L YTES, GLU, ETOH, CK, PT, BUN, LIPASE, CREAT, SAMUEL, AST, CBC #### [facility] [address] [place] [address] Hemoglobin [Mass/volume] in BloodOrdered By: Basilio Azevedo on 08-11-2023 Hemoglobin (Bld) [Mass/Vol] 14.2 g/dL Normal 11.8-15.4 [facility] Comment on above: Performed By: #### L YTES, GLU, ETOH, CK, PT, BUN, LIPASE, CREAT, SAMUEL, AST, CBC #### [facility] [address] [place] [address] INR in Platelet poor plasma by Coagulation assayOrdered By: Basilio Azevedo on 08-11-2023 INR Coag (PPP) [Relative time] 1.0 {INR} Normal [facility] Comment on above: INR Therapeutic Rang [...] heart valves: 3 - 4.5 PERFORMED BY: [place] [address] PATHOLOGIST [employer] KEMAR DUKE M.D. Performed By: #### L YTES, GLU, ETOH, CK, PT, BUN, LIPASE, CREAT, SAMUEL, AST, CBC ####[facility] [id number] Ketones Auto test strip (U) [Mass/Vol]Ordered By: Basilio Azevedo on 08-11-2023 Ketones (U) [Mass/Vol] Trace Negative [facility] - UrinalysisOrder ed By: Basilio Azevedo on 08-11-2023 Hyaline casts LM Ql (Urine sed) 0-8 [LPF] 0-8 [facility] Leukocytes [#/volume] correc sonja for nucleated erythrocytes in Blood by Automated counOrdered By: Basilio Azevedo on 08-11-2023 WBC corrected for nucl RBC Auto (Bld) [#/Vol] 7.9 10*3/uL 3.8-11.6 [facility] Leukocytes [#/volume] in Blo od by Automated countOrdered By: Basilio Azevedo on 08-11-2023 WBC (Bld) [#/Vol] 7.9 10*3/uL Normal 3.8-11.6 [facility] Comment on above: Performed By: #### L YTES, GLU, ETOH, CK, PT, BUN, LIPASE, CREAT, SAMUEL, AST, CBC #### [facility] [address] Lipase [Enzymatic activity/v olume] in Serum or PlasmaOrdered By: Basilio Azevedo on 08-11-2023 Lipase [Catalytic activity/Vol] 13.0 U/L Normal 11.0-82.0 [facility] Comment on above: Result Comment: PERF ORMED BY: [place] [address] PATHOLOGIST [employer] KEMAR DUKE M.D. Performed By: #### L YTES, GLU, ETOH, CK, PT, BUN, LIPASE, CREAT, SAMUEL, AST, CBC ####[facility] [address] Lymphocytes [#/volume] in Bl ood by Automated countOrdered By: Basilio Azevedo on 08-11-2023 Lymphocytes (Bld) [#/Vol] 1.8 10*3/uL Normal 1.00-4.8 [facility] Comment on above: Performed By: #### L YTES, GLU, ETOH, CK, PT, BUN, LIPASE, CREAT, SAMUEL, AST, CBC #### [address] Lymphocytes/100 leukocytes i n Blood by Automated countOrdered By: Basilio Azevedo on 08-11-2023 Lymphocytes/100 WBC (Bld) 23.1 % Normal . [facility] Comment on above: Performed By: #### L YTES, GLU, ETOH, CK, PT, BUN, LIPASE, CREAT, SAMUEL, AST, CBC #### [facility] [address] [place] [address] MCH [Entitic mass] by Automa sonja countOrdered By: Basilio Azevedo on 08-11-2023 MCH (RBC) [Entitic mass] 30.4 pg Normal 24.7-34.3 [facility] Comment on above: Performed By: #### L YTES, GLU, ETOH, CK, PT, BUN, LIPASE, CREAT, SAMUEL, AST, CBC #### [address] MCHC Auto (RBC) [Mass/Vol]Or dered By: Basilio Azevedo on 08-11-2023 MCHC (RBC) [Mass/Vol] 35.1 g/dL 32.0-35.0 [facility] MCV [Entitic volume] by Auto mated countOrdered By: Basilio Azevedo on 08-11-2023 MCV (RBC) [Entitic vol] 86.7 fL Normal 80-100 [facility] Comment on above: Performed By: #### L YTES, GLU, ETOH, CK, PT, BUN, LIPASE, CREAT, SAMUEL, AST, CBC #### [facility] [address] [place] [address] [place] Monocyte distribution width [Entitic volume] in Blood by AutomatedOrdered By: Basilio Azevedo on 08-11-2023 Monocyte distribution width Auto (Bld) [Entitic vol] 17.99 % 0.00-20.00 [facility] Neutrophils [#/volume] in Bl ood by Automated countOrdered By: Basilio Azevedo on 08-11-2023 Neutrophils (Bld) [#/Vol] 5.4 10*3/uL Normal 1.8-7.7 [facility] Comment on above: Performed By: #### L YTES, GLU, ETOH, CK, PT, BUN, LIPASE, CREAT, SAMUEL, AST, CBC #### [facility] [address] Nitrite Test strip Ql (U)Ord ered By: Basilio Azevedo on 08-11-2023 Nitrite Ql (U) Negative Negative [facility] No Panel InformationOrdered By: Basilio Azevedo on 08-11-2023 Estimated GFR (CKD-EPI) > 60.0 mL/Min [facility] Creatinine Clearance (Chem 138.27 [facility] Nucleated erythrocytes [Pres ence] in Blood by Automated countOrdered By: Basilio Azevedo on 08-11-2023 Nucleated RBC Auto Ql (Bld) 0.1 /100{WBC} 0-0.5 [facility] Opiates [Presence] in Urine by Screen methodOrdered By: Basilio Azevedo on 08-11-2023 Opiates Screen Ql (U) Negative Negative [facility] Phencyclidine Screen Ql (U)O rdered By: Basilio Azevedo on 08-11-2023 Phencyclidine Ql (U) Negative Negative [facility] [facility] Platelet mean volume [Entiti c volume] in Blood by Automated countOrdered By: Basilio Azevedo on 08-11-2023 Platelet mean volume (Bld) [Entitic vol] 7.7 fL Normal 6.3-10.7 [facility] Comment on above: Performed By: #### L YTES, GLU, ETOH, CK, PT, BUN, LIPASE, CREAT, SAMUEL, AST, CBC #### [facility] [address] Platelets [#/volume] in Bloo d by Automated countOrdered By: Basilio Azevedo on 08-11-2023 Platelets (Bld) [#/Vol] 307 10*3/uL Normal 150-450 [facility] Comment on above: Performed By: #### L YTES, GLU, ETOH, CK, PT, BUN, LIPASE, CREAT, SAMUEL, AST, CBC #### [facility] [address] Potassium [Moles/volume] in Serum or PlasmaOrdered By: Basilio Azevedo on 08-11-2023 Potassium [Moles/Vol] 3.3 mmol/L Low 3.5-5.1 [facility] Comment on above: Performed By: #### L YTES, GLU, ETOH, CK, PT, BUN, LIPASE, CREAT, SAMUEL, AST, CBC ####[facility] Prothrombin time (PT)Ordered By: Basilio Azevedo on 08-11-2023 PT Coag (PPP) [Time] 12.1 s Normal 9.0-12.9 [facility] Comment on above: A hematocrit value g reater than 55% may lead to inaccurate results in coagulation testing. Patients having hematocrit values >55% require a special collection tube for coagulation studies. Please contact the laboratory at [phone] for redraw instructions. Result Comment: A he matocrit value greater than 55% may lead to inaccurate results in coagulation testing. Patients having hematocrit values >55% require a special collection tube for coagulation studies. Please contact the laboratory at [phone] for redraw instructions. Performed By: #### L YTES, GLU, ETOH, CK, PT, BUN, LIPASE, CREAT, SAMUEL, AST, CBC ####[place] [id number] [place] [id number] [facility] Serum or plasma anion gap de terminationOrdered By: Basilio Azevedo on 08-11-2023 Anion gap [Moles/Vol] 15.5 mmol/L High 6.0-15.0 [facility] Comment on above: Performed By: #### L YTES, GLU, ETOH, CK, PT, BUN, LIPASE, CREAT, SAMUEL, AST, CBC ####[place] [id number] [place] [id number] [facility] Sodium [Moles/volume] in Ser um or PlasmaOrdered By: Basilio Azevedo on 08-11-2023 Sodium [Moles/Vol] 138 mmol/L Normal 136-145 [facility] Comment on above: Performed By: #### L YTES, GLU, ETOH, CK, PT, BUN, LIPASE, CREAT, SAMUEL, AST, CBC ####[address] Specific gravity Auto test s trip (U) [Rel density]Ordered By: Basilio Azevedo on 08-11-2023 Specific gravity (U) [Rel density] 1.026 1.001-1.030 [facility] Squamous epithelial cells de tection in urine sediment by light microscopyOrdered By: Basilio Azevedo on 08-11-2023 Epithelial cells.squamous LM Ql (Urine sed) 0-1 [HPF] 0-2 [facility] Type and Screenon 08-11-2023 ABO and Rh group Nom (Bld) Blood group A Rh(D) negative Normal [facility] Comment on above: Result Comment: PERF ORMED BY: [facility] [address] [place] [id number] PATHOLOGIST [employer]PER[employer] KEMAR DUKE M.D. Urea nitrogen [Mass/volume] in Serum or PlasmaOrdered By: Basilio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
--- NOTE | 2024-12-12 08:16 | CM.NOTE ---
Rounds made with Dr. Baca, pt will discharge to home today. Dr. Adams's office working on Zofran pump for discharge.
[2024-12-12] MEDS: POTASSIUM CHLORIDE 40 MEQ in 0.9 % SODIUM CHLORIDE 250 ML 67.5 MEQ IV (08:51)
--- NOTE | 2024-12-12 09:31 | CM.NOTE ---
Called Dr. Adams's office, they sent order for Zofran pump to [facility]. [facility] will reach out to patient. SW will speak with pt regarding self-pay and possible cost up front for pump if truly self pay.
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
[2024-12-12 14:20] LABS: Anion Gap 13.5; BUN Creatinine Ratio 9.6; Calcium 8.6 mg/dL (8.5-10.1); Carbon Dioxide 21.9 mmol/L (21.0-32.0); Chloride 100 mmol/L (98-107); Estimated GFR (African America >60 (>=60 mL/min/1.73m^2); Estimated GFR (Non-African Ame >60 (>=60 mL/min/1.73m^2); Glucose 134 mg/dL (74-106); Potassium 3.4 mmol/L (3.5-5.1); Sodium 132 mmol/L (136-145)
--- NOTE | 2024-12-12 16:01 | SWNOTE1 ---
SELENA stopped back in to check on pt. She voiced she was not able to complete Medicaid tristan as she needed boyfriend's information. She stated she lives in [place] and will drop off information to [employer] and wants to speak to them anyways. SELENA did notify Angie in [facility] that pt was self pay. Angie messaged back that she has her [employer] forms and information from previous stay.
--- NOTE | 2024-12-16 12:59 | CM.DCFOLLOWU ---
1st attempt 12/16/24, no answer
--- NOTE | 2024-12-17 14:20 | CM.DCFOLLOWU ---
2nd attempt 12/17/24, no answer
--- NOTE | 2024-12-18 13:05 | CM.DCFOLLOWU ---
3rd attempt 12/18/24, no answer
== END 2024-12-12 16:18 | disposition home or self-care (01) ==
LOC: ER 15:43 → MS 12-12 07:08
PROVIDERS: Admitting Provider Family Medicine; Emergency Provider Emergency Medicine; Visit Provider Family Medicine
DX: O21.1 Hyperemesis gravidarum with metabolic disturbance (principal); Z3A.10 10 weeks gestation of pregnancy; O26.891 Other specified pregnancy related conditions, first trimester; R79.89 Other specified abnormal findings of blood chemistry; O16.1 Unspecified maternal hypertension, first trimester
CPT/HCPCS: 36415; 76705; 76801; 80048; 80053; 81001; 82150; 83690; 84702; 85007; 85025; 85027; 94761; 96361; 96365; 96366; 96375; 96376; 99285; G0378; J2405; J3480

== ENCOUNTER 2025-01-04 19:15 | Emergency (ER) | payer MEDICAID, SELFPAY ==
--- OUTSIDE RECORDS SUMMARY | 2025-01-04 19:23 | XMS_ITS | CCD ---
Author Organization [facility] Care Team Providers Care Supervisor Furnace Room Name Role Phone ADEOLA COHEN Admitting Unavailable ADEOLA COHEN Attending Unavailable TAMRA, DR BUTLER Primary Care Unavailable ADEOLA COHEN Consulting Unavailable TAMRA, DR BUTLER Primary Care Unavailable ADRIAN CHRISTIANSEN Admitting Unavailable ADRIAN CHRISTIANSEN Attending Unavailable DR MACK SAMUELS Consulting Unavailable JOSE, DR SHERMAN Consulting Unavailable ADRIAN CHRISTIANSEN Consulting Unavailable NO FAMILY, PHYSICIAN Primary Care Provider Unava ilDO Basilio Arreola Emergency Provider Basilio Azevedo Attending Unavailable Basilio Azevedo Admitting Unavailable NO FAMILY, PHYSICIAN Primary Care Unavailable Unavailable Primary Care Provider UnavailTYRELL Tuttle Attending Unavailable Allergies Allergy Classification Reported Allergen(s) Allergy Type Date of Onset Reaction(s) Facility (1 source) Penicillins Drug allergy (disorder) 09-28-2014 [facility] Repository (1 source) Penicillins Drug allergy (disorder) 02-22-2022 [facility] Repository (2 sources) Penicillins Drug Allergy 12-23-2024 [facility] Medications Current Medications Medication Drug Class(es) Dates Sig (Normalized) Sig (Original) ondansetron 4 mg disintegrating oral tablet (6 sources) Serotonin-3 Receptor Antagonist Start: 04-03-2021 End: [...] 04, 2020 9:41am ran out last night pantoprazole 40 mg delayed release oral tablet (2 sources) Proton Pump Inhibitor Start: 12-12-2024 take 1 tablet by mouth once daily pantoprazole (ProtoNix) 40 MG EC tablet Take 40 mg by mouth Daily 12/12/2024 Active potassium chloride 20 meq extended release oral tablet (2 sources) Start: 12-12-2024 take 1 tablet by mouth in the morning, then take 1 tablet by mouth in the evening, then take 1 tablet by mouth at bedtime potassium chloride CR (K-Tab) 20 MEQ ER tablet Take 20 mEq by mouth in the morning and 20 mEq in the evening and 20 mEq before bedtime. 12/12/2024 Active promethazine hydrochloride 25 mg rectal suppository (6 sources) Phenothiazine Start: 12-13-2024 take 12.5 mg rectal route every six hours as needed for vomiting and nausea promethazine (Phenergan) 25 MG suppository Insert 12.5 mg into the rectum every 6 (six) hours if needed for vomiting or nausea 12/13/2024 Active Start: 02-22-2022 take 25 mg by mouth three times daily Promethazine Active 25 MG PO Three times daily 12 February 21, 2022 11:00pm Start: 04-05-2021 End: 02-20-2022 Promethazine Discontinued 12 .5 MG PO Q6H April 04, 2021 11:00pm February 20, 2022 7:12am 3 doses during day; last dose no later than 4 hr before bedtime Start: 04-05-2021 End: 02-20-2022 Promethazine Discontinued 25 MG CA Q6H April 04, 2021 11:00pm February 20, 2022 7:12am Start: 12-27-2019 End: 08-04-2020 take 12.5 mg by mouth every six hours Promethazine Discontinued 12.5 MG PO Q6H December 26, 2019 11:00pm August 04, 2020 9:41am Completed/Discontinued Medications Medication Drug Class(es) Dates Sig (Normalized) Sig (Original) [id number] 200 actuat albuterol 0.09 mg/actuat metered dose [...] Cephalexin Discontinued 500 MG PO Twice daily 10 03March 07, 2021 11:00pm April 05, 2021 4:46am [...] D2) 1,250 mcg (50,000 unit) Capsule Discontinued 36359 UNIT PO every week 4 December 26, [...] mealtime Prednisone Discontinued 60 MG PO Daily April 02, 2021 11:00pm April 08, 2021 [...] PO 3x/Day before meals & bedtime 1200 30 August 08, 2020 12:00am March 08, 2021 [...] with vomiting, unspecified] Onset: 08-23-2021 Episodic Other aftercare (2 sources) Patient encounter status; Translations: [Encounter for follow-up examination after completed treatment for conditions other than malignant neoplasm] 12-23-2024 Episodic Other complications of (2 sources) Hyperemesis gravidarum; Translations: [Mild hyperemesis gravidarum] 12-23-2024 Episodic Other gastrointestinal disorders (1 source) Diarrhea; [...] on 08-11-2023 Amphetamines Ql (U) Negative Negative [facility] Amylase [Enzymatic activity/ volume] in Serum or PlasmaOrdered By: Basilio Azevedo on 08-11-2023 Amylase [Catalytic activity/Vol] 32 U/L Normal 29-103 [facility] Comment on above: Performed By: #### L YTES, GLU, ETOH, CK, PT, BUN, LIPASE, CREAT, SAMUEL, AST, CBC ####[facility] [id number] [place] [address] [facility] Aspartate aminotransferase [ Enzymatic activity/volume] in Serum or PlasmaOrdered By: Basilio Azevedo on 08-11-2023 AST [Catalytic activity/Vol] 24 U/L Normal 13-39 [facility] Comment on above: Performed By: #### L YTES, GLU, ETOH, CK, PT, BUN, LIPASE, CREAT, SAMUEL, AST, CBC ####[facility] Automated basophil %Ordered By: Basilio Azevedo on 08-11-2023 Basophils/100 WBC (Bld) 0.9 % Normal . [facility] Comment on above: Performed By: #### L YTES, GLU, ETOH, CK, PT, BUN, LIPASE, CREAT, SAMUEL, AST, CBC #### [facility] [address] Automated basophil countOrde red By: Basilio Azevedo on 08-11-2023 Basophils (Bld) [#/Vol] 0.1 10*3/uL Normal 0.0-0.2 [facility] Comment on above: Result Comment: PERF ORMED BY: [place] [address] PATHOLOGIST DIRECTOR OF SUSTAINABILITY KEMAR DUKE M.D. Performed By: #### L YTES, GLU, ETOH, CK, PT, BUN, LIPASE, CREAT, SAMUEL, AST, CBC #### [address] Automated blood monocyte cou ntOrdered By: Basilio Azevedo on 08-11-2023 Monocytes (Bld) [#/Vol] 0.5 10*3/uL Normal 0.0-0.8 [facility] Comment on above: Performed By: #### L YTES, GLU, ETOH, CK, PT, BUN, LIPASE, CREAT, SAMUEL, AST, CBC #### [address] Automated eosinophil %Ordere d By: Basilio Azevedo on 08-11-2023 Eosinophils/100 WBC (Bld) 1.3 % Normal . [facility] Comment on above: Performed By: #### L YTES, GLU, ETOH, CK, PT, BUN, LIPASE, CREAT, SAMUEL, AST, CBC #### [address] Automated eosinophil countOr dered By: Basilio Azevedo on 08-11-2023 Eosinophils (Bld) [#/Vol] 0.1 10*3/uL Normal 0.0-0.45 [facility] Comment on above: Performed By: #### L YTES, GLU, ETOH, CK, PT, BUN, LIPASE, CREAT, SAMUEL, AST, CBC #### [facility] [address] Automated erythrocytes count in urine sediment (number/area)Ordered By: Basilio Azevedo on 08-11-2023 RBC Auto (Urine sed) [#/Area] 10-19 [HPF] 0-4 [facility] Automated leukocytes count i n urine sediment (number/area)Ordered By: Basilio Azevedo on 08-11-2023 WBC Auto (Urine sed) [#/Area] 3-4 [HPF] 0-4 [facility] Automated monocyte %Ordered By: Basilio Azevedo on 08-11-2023 Monocytes/100 WBC (Bld) 6.9 % Normal . [facility] Comment on above: Performed By: #### L YTES, GLU, ETOH, CK, PT, BUN, LIPASE, CREAT, SAMUEL, AST, CBC #### [facility] [address] Automated neutrophil %Ordere d By: Basilio Azevedo on 08-11-2023 Neutrophils/100 WBC (Bld) 67.8 % Normal . [facility] Comment on above: Performed By: #### L YTES, GLU, ETOH, CK, PT, BUN, LIPASE, CREAT, SAMUEL, AST, CBC #### [facility] [address] Automated urine color determ inationOrdered By: Basilio Azevedo on 08-11-2023 Color (U) Yellow Normal Yellow [facility] Comment on above: Order Comment: Name Collection Type:: Clean-Voided Midstream Performed By: #### U HCG, ADDONUAPLUS, URDS #### [address] Barbiturates [Presence] in U rine by Screen methodOrdered By: Basilio Azevedo on 08-11-2023 Barbiturates Screen Ql (U) Negative Negative [facility] Benzodiazepines Screen Ql (U )Ordered By: Basilio Azevedo on 08-11-2023 Benzodiazepines Ql (U) Negative Negative [facility] Benzoylecgonine [Presence] i n Urine by Screen methodOrdered By: Basilio Azevedo on 08-11-2023 Benzoylecgonine Screen Ql (U) Negative Negative [facility] Bilirubin Test strip Ql (U)O rdered By: Basilio Azevedo on 08-11-2023 Bilirubin Ql (U) Negative Negative [facility] CT abdomen pelvis w conon CT abdomen pelvis w con [facility] [place] [address] [place] [address] CT Scan Report Signed Patient: Chente Gonzalez MR#: [id number] [birth year] : 1995 Acct:[id number] Age/Sex: 27 / F ADM Date: 08/11/23 Loc: ER Room: Type: [facility] ER Attending Dr: Copies to: Basilio Azevedo DO Ordering Provider: Basilio Azevedo DO Date of Service: 08/11/23 CT/CT chest w con: f ([id number]) CT/CT abdomen pelvis w con: f CT [...] Fercho Huddleston M.D.08/11/2023 8:06 PM Dictation Location: [place] [address] Transcribed By: [facility] 08/11/232005 Dictated By: Fercho Huddleston DO 08/11/231956 Signed By: 08/11/232005 Normal [facility] CT cervical spine wo conon 1 10-12-2022 CT cervical spine wo [facility] [place] [address] [place] [address] CT Scan Report Signed Patient: Chente Gonzalez MR#: [id number] 62 : 1995 Acct:[id number] Age/Sex: 27 / F ADM Date: 08/11/23 Loc: ER Room: Type: [facility] ER Attending Dr: Copies to: [...] Fercho Huddleston M.D.08/11/2023 7:55 PM Dictation Location: [facility]--05 Transcribed By: [facility] 08/11/231954 Dictated By: Fercho Huddleston DO 08/11/231952 Signed By: 08/11/231954 Normal [facility] Physician [facility] CT facial bones wo conon CT facial bones wo con [facility] [address] CT Scan Report Signed Patient: Chente Gonzalez MR#: [id number] [birth year] : 1995 Acct:[id number] Age/Sex: 27 / F ADM Date: 08/11/23 Loc: ER Room: Type: [facility] ER Attending Dr: Copies to: [...] Fercho Huddleston M.D.08/11/2023 7:57 PM Dictation Location: [facility]--05 Transcribed By: [facility] 08/11/231956 Dictated By: Fercho Huddleston DO 08/11/231954 Signed By: 08/11/231956 [facility] Physician [facility] CT head/brain wo conon 08-11 CT head/brain wo con [facility] [place] [address] [place] [address] CT Scan Report Signed Patient: Chente Gonzalez MR#: [id number] [birth year] : 1995 Acct:[id number] Age/Sex: 27 / F ADM Date: 08/11/23 Loc: ER Room: Type: [facility] ER Attending Dr: Copies to: [...] Fercho Huddleston M.D.08/11/2023 7:53 PM Dictation Location: [place] [address] Transcribed By: [facility] 08/11/231952 Dictated By: Fercho Huddleston DO 08/11/231951 Signed By: 08/11/231952 Normal [facility] Cannabinoids [Presence] in U rine by Screen methodOrdered By: Basilio Azevedo on 08-11-2023 Cannabinoids Screen Ql (U) Positive Negative [facility] Comment on above: These are unconfirme d results and should not be used for legal purposes. Drug Cut-Off Concentration: AMPH 1000 ng/mL THOMAS 200 ng/mL ARTHUR 200 ng/mL COCM 300 ng/mL OP 300 ng/mL PCP 25 ng/mL THC 20 ng/mL Carbon dioxide, total [Moles /volume] in Serum or PlasmaOrdered By: Basilio Azevedo on 08-11-2023 CO2 [Moles/Vol] 17.8 mmol/L Low 21.0-31.0 [facility] Comment on above: Performed By: #### L YTES, GLU, ETOH, CK, PT, BUN, LIPASE, CREAT, SAMUEL, AST, CBC ####[place] [id number] Chloride [Moles/volume] in S marline or PlasmaOrdered By: Basilio Azevedo on 08-11-2023 Chloride [Moles/Vol] 108 mmol/L High 98-107 [facility] Comment on above: Performed By: #### L YTES, GLU, ETOH, CK, PT, BUN, LIPASE, CREAT, SAMUEL, AST, CBC ####[place] [id number] Complete Blood Count Auto Di ffon 08-11-2023 Mean Corpuscular HGB Conc 35.1 g/dL High 32.0-35.0 [facility] Comment on above: Performed By: #### L YTES, GLU, ETOH, CK, PT, BUN, LIPASE, CREAT, SAMUEL, AST, CBC #### [facility] [address] [place] [address] Monocytes/100 WBC (Bld) 17.99 % Normal 0.00-20.00 [facility] Comment on above: Performed By: #### L YTES, GLU, ETOH, CK, PT, BUN, LIPASE, CREAT, SAMUEL, AST, CBC #### [facility] [address] [place] [address] NRBC% 0.1 /100{WBC} Normal 0-0.5 [facility] Comment on above: Performed By: #### L YTES, GLU, ETOH, CK, PT, BUN, LIPASE, CREAT, SAMUEL, AST, CBC #### [address] Creatine kinase [Enzymatic a ctivity/volume] in Serum or PlasmaOrdered By: Basilio Azevedo on 08-11-2023 CK [Catalytic activity/Vol] 225 U/L High 30-223 [facility] Comment on above: Result Comment: PERF ORMED BY: [address] [place] [address] PATHOLOGIST DIRECTOR OF SUSTAINABILITY KEMAR DUKE M.D. Performed By: #### L YTES, GLU, ETOH, CK, PT, BUN, LIPASE, CREAT, SAMUEL, AST, CBC ####[place] [id number] Creatinineon 08-11-2023 Creatinine Clr Calc Pharmacy 138.27 Normal [facility] Comment on above: Performed By: #### L YTES, GLU, ETOH, CK, PT, BUN, LIPASE, CREAT, SAMUEL, AST, CBC ####[place] [id number] GFR/1.73 sq M.predicted MDRD (S/P/Bld) [Vol rate/Area] mL/min/{1.73_m2} Normal [facility] Comment on above: Performed By: #### L YTES, GLU, ETOH, CK, PT, BUN, LIPASE, CREAT, SAMUEL, AST, CBC ####[address] Creatinine [Mass/volume] in Serum or PlasmaOrdered By: Basilio Azevedo on 08-11-2023 Creatinine [Mass/Vol] 0.68 mg/dL Normal 0.60-1.20 [facility] Comment on above: Performed By: #### L YTES, GLU, ETOH, CK, PT, BUN, LIPASE, CREAT, SAMUEL, AST, CBC ####[place] [address] Dipstick and Microscopicon 1 10-12-2022 Appearance (U) Clear Normal Clear [facility] Comment on above: Order Comment: Name Collection Type:: Clean-Voided Midstream Performed By: #### U HCG, ADDONUAPLUS, URDS #### [address] Bacteria,Urine None Seen Normal None Seen [facility] Comment on above: Order Comment: Name Collection Type:: Clean-Voided Midstream Performed By: #### U HCG, ADDONUAPLUS, URDS #### [facility] [address] [place] [address] [place] Bilirubin,Urine Negative Normal Negative [facility] Comment on above: Order Comment: Name Collection Type:: Clean-Voided Midstream Performed By: #### U HCG, ADDONUAPLUS, URDS #### [facility] [address] [place] [address] Glucose Ql (U) Normal Normal Normal [facility] Comment on above: Order Comment: Name Collection Type:: Clean-Voided Midstream Performed By: #### U HCG, ADDONUAPLUS, URDS #### [facility] [address] [place] [address] [place] Hyaline Casts,Urine 0-8 Normal 0-8 [facility] Comment on above: Order Comment: Name Collection Type:: Clean-Voided Midstream Performed By: #### U HCG, ADDONUAPLUS, URDS #### [address] Ketones Ql (U) Trace High Negative [facility] Comment on above: Order Comment: Name Collection Type:: Clean-Voided Midstream Performed By: #### U HCG, ADDONUAPLUS, URDS #### [address] Leukocyte esterase Test strip Ql (U) Negative Normal Negative [facility] Comment on above: Order Comment: Name Collection Type:: Clean-Voided Midstream Performed By: #### U HCG, ADDONUAPLUS, URDS #### [facility] [address] [place] [address] [place] Nitrite,Urine Negative Normal Negative [facility] Comment on above: Order Comment: Name Collection Type:: Clean-Voided Midstream Performed By: #### U HCG, ADDONUAPLUS, URDS #### [place] [address] [place] Occult Blood,Urine 2+ High Negative [facility] Comment on above: Order Comment: Name Collection Type:: Clean-Voided Midstream Performed By: #### U HCG, ADDONUAPLUS, URDS #### [address] [address] [place] RBC,Urine 10-19 High 0-4 [facility] Comment on above: Order Comment: Name Collection Type:: Clean-Voided Midstream Performed By: #### U HCG, ADDONUAPLUS, URDS #### [address] Specificy [place],Urine 1.026 Normal 1.001-1.030 [facility] Comment on above: Order Comment: Name Collection Type:: Clean-Voided Midstream Performed By: #### U HCG, ADDONUAPLUS, URDS #### [address] Squamous Epithelial Cell,Urine 0-1 Normal 0-2 [facility] Comment on above: Order Comment: Name Collection Type:: Clean-Voided Midstream Performed By: #### U HCG, ADDONUAPLUS, URDS #### [address] Urobilinogen,Urine Normal Normal Normal [facility] Comment on above: Order Comment: Name Collection Type:: Clean-Voided Midstream Performed By: #### U HCG, ADDONUAPLUS, URDS #### [address] WBC,Urine 3-4 Normal 0-4 [facility] Comment on above: Order Comment: Name Collection Type:: Clean-Voided Midstream Performed By: #### U HCG, ADDONUAPLUS, URDS #### [place] [address] [place] Drug Screen,Urineon 12-15-20 23 Amphetamine Screen,Urine Negative Normal Negative [facility] Comment on above: Performed By: #### U HCG, ADDONUAPLUS, URDS #### [address] Barbiturate Screen,Urine Negative Normal Negative [facility] Comment on above: Performed By: #### U HCG, ADDONUAPLUS, URDS #### [address] Benzodiazepines Screen,Urine Negative Normal Negative [facility] Comment on above: Performed By: #### U HCG, ADDONUAPLUS, URDS #### [address] Cannabinoid Screen,Urine Positive High Negative [facility] Comment on above: Result Comment: Thes e are unconfirmed results and should not be used for legal purposes. Drug Cut-Off Concentration: AMPH 1000 ng/mL THOMAS 200 ng/mL ARTHUR 200 ng/mL COCM 300 ng/mL OP 300 ng/mL PCP 25 ng/mL THC 20 ng/mL PERFORMED BY: [place] [address] PATHOLOGIST DIRECTOR OF SUSTAINABILITY KEMAR DUKE M.D. Performed By: #### U HCG, ADDONUAPLUS, URDS #### [address] Cocaine Screen,Urine Negative Normal Negative [facility] Comment on above: Performed By: #### U HCG, ADDONUAPLUS, URDS #### [address] Opiate Screen,Urine Negative Normal Negative [facility] Comment on above: Performed By: #### U HCG, ADDONUAPLUS, URDS #### [address] Phencyclidine Screen,Urine Negative Normal Negative [facility] Comment on above: Performed By: #### U HCG, ADDONUAPLUS, URDS #### [address] ECG 12 lead ECGon 08-11-2023 ECG 12 lead ECG [facility] [place] [address] Electrocardiograph Report Signed Patient: Chente Gonzalez MR#: [id number] 62 : 1995 Acct:[id number] Age/Sex: 27 / F ADM Date: 08/11/23 [...] Anterior leads Confirmed by BASILIO AZEVEDO DO ([id number]) on 08/12/2023 1:42:26 AM Referred By: Electronically Signed By:BASILIO AZEVEDO DO Transcribed By: MUS Signed By Basilio Azevedo DO 08/12 0142 Normal [facility] Erythrocyte distribution wid th [Ratio] by Automated countOrdered By: Basilio Azevedo on 08-11-2023 Erythrocyte distribution width (RBC) [Ratio] 12.9 % Normal 11.9-15.3 [facility] Comment on above: Performed By: #### L YTES, GLU, ETOH, CK, PT, BUN, LIPASE, CREAT, SAMUEL, AST, CBC #### [facility] [address] [place] [address] [place] Erythrocytes [#/volume] in B lood by Automated countOrdered By: Basilio Azevedo on 08-11-2023 RBC (Bld) [#/Vol] 4.66 10*6/uL Normal 3.60-5.00 [facility] Comment on above: Performed By: #### L YTES, GLU, ETOH, CK, PT, BUN, LIPASE, CREAT, SAMUEL, AST, CBC #### [facility] [address] [place] [id number] [place] Ethanol [Mass/volume] in Ser um or PlasmaOrdered By: Basilio Azevedo on 08-11-2023 Ethanol [Mass/Vol] mg/dL Normal [facility] Comment on above: Performed By: #### L YTES, GLU, ETOH, CK, PT, BUN, LIPASE, CREAT, SAMUEL, AST, CBC #### [facility] [address] [place] [id number] [place] Ethanol [Mass/Vol] TNP [facility] Comment on above: Test not performed Ethyl Alcohol Profileon 07-28 Percent Ethanol Not performed Normal [facility] Comment on above: Result Comment: PERF ORMED BY: [facility] [address] [place] [address] PATHOLOGIST DIRECTOR OF SUSTAINABILITY KEMAR DUKE M.D. Performed By: #### L YTES, GLU, ETOH, CK, PT, BUN, LIPASE, CREAT, SAMUEL, AST, CBC #### [facility] [address] [place] [id number] [place] Glucose [Mass/volume] in Ser um or PlasmaOrdered By: Basilio Azevedo on 08-11-2023 Glucose [Mass/Vol] 109 mg/dL High 70-100 [facility] Comment on above: ADA recommended refe rence rangeRandom Glucose Reference Range is dependent on time and content of last meal. Glucose of more than 200 mg/dL in a nonstressed, ambulatory subject supports the diagnosis of Diabetes Mellitus. Result Comment: [place] Glucose Reference Range is dependent on time and content of last meal. Glucose of more than 200 mg/dL in a nonstressed, ambulatory subject supports the diagnosis of Diabetes Mellitus. ADA recommended reference range Performed By: #### L YTES, GLU, ETOH, CK, PT, BUN, LIPASE, CREAT, SAMUEL, AST, CBC ####[facility] [place] [address] [facility] HCG ( test) IA.rapi d Ql (U)Ordered By: Basilio Azevedo on 08-11-2023 HCG ( test) Ql (U) Negative [facility] HCG,Urineon 08-11-2023 Beta HCG ( test) Ql (U) Negative Normal [facility] Comment on above: Order Comment: Name Collection Type:: Clean-Voided Midstream Result Comment: PERF ORMED BY: [address] [place] [address] PATHOLOGIST DIRECTOR OF SUSTAINABILITY KEMAR DUKE M.D. Performed By: #### U HCG, ADDONUAPLUS, URDS #### [facility] [address] [place], [place] [id number] [facility] Hematocrit [Volume Fraction] of Blood by Automated countOrdered By: Basilio Azevedo on 08-11-2023 Hematocrit (Bld) [Volume fraction] 40.4 % Normal 34.0-46.4 [facility] Comment on above: Performed By: #### L YTES, GLU, ETOH, CK, PT, BUN, LIPASE, CREAT, SAMUEL, AST, CBC #### [address] Hemoglobin [Mass/volume] in BloodOrdered By: Basilio Azevedo on 08-11-2023 Hemoglobin (Bld) [Mass/Vol] 14.2 g/dL Normal 11.8-15.4 [facility] Comment on above: Performed By: #### L YTES, GLU, ETOH, CK, PT, BUN, LIPASE, CREAT, SAMUEL, AST, CBC #### [address] INR in Platelet poor plasma by Coagulation assayOrdered By: Basilio Azevedo on 08-11-2023 INR Coag (PPP) [Relative time] 1.0 {INR} Normal [facility] Comment on above: INR Therapeutic Rang e [...] heart valves: 3 - 4.5 PERFORMED BY: [place] [address] PATHOLOGIST DIRECTOR OF SUSTAINABILITY KEMAR DUKE M.D. Performed By: #### L YTES, GLU, ETOH, CK, PT, BUN, LIPASE, CREAT, SAMUEL, AST, CBC ####[id number] Ketones Auto test strip (U) [Mass/Vol]Ordered By: Basilio Azevedo on 08-11-2023 Ketones (U) [Mass/Vol] Trace Negative [facility] - UrinalysisOrder ed By: Basilio Azevedo on 08-11-2023 Hyaline casts LM Ql (Urine sed) 0-8 [LPF] 0-8 [facility] Leukocytes [#/volume] correc sonja for nucleated erythrocytes in Blood by Automated counOrdered By: Basilio Azevedo on 08-11-2023 WBC corrected for nucl RBC Auto (Bld) [#/Vol] 7.9 10*3/uL 3.8-11.6 [facility] Leukocytes [#/volume] in Blo od by Automated countOrdered By: Basilio Azevedo on 08-11-2023 WBC (Bld) [#/Vol] 7.9 10*3/uL Normal 3.8-11.6 [facility] Comment on above: Performed By: #### L YTES, GLU, ETOH, CK, PT, BUN, LIPASE, CREAT, SAMUEL, AST, CBC #### [facility] [address] Lipase [Enzymatic activity/v olume] in Serum or PlasmaOrdered By: Basilio Azevedo on 08-11-2023 Lipase [Catalytic activity/Vol] 13.0 U/L Normal 11.0-82.0 [facility] Comment on above: Result Comment: PERF ORMED BY: [facility] [address] [place] [address] PATHOLOGIST DIRECTOR OF SUSTAINABILITY KEMAR DKUE M.D. Performed By: #### L YTES, GLU, ETOH, CK, PT, BUN, LIPASE, CREAT, SAMUEL, AST, CBC ####[facility] [id number] Lymphocytes [#/volume] in Bl ood by Automated countOrdered By: Basilio Azevedo on 08-11-2023 Lymphocytes (Bld) [#/Vol] 1.8 10*3/uL Normal 1.00-4.8 [facility] Comment on above: Performed By: #### L YTES, GLU, ETOH, CK, PT, BUN, LIPASE, CREAT, SAMUEL, AST, CBC #### [facility] [address] [place] [address] [place] Lymphocytes/100 leukocytes i n Blood by Automated countOrdered By: Basilio Azevedo on 08-11-2023 Lymphocytes/100 WBC (Bld) 23.1 % Normal . [facility] Comment on above: Performed By: #### L YTES, GLU, ETOH, CK, PT, BUN, LIPASE, CREAT, SAMUEL, AST, CBC #### [facility] [address] MCH [Entitic mass] by Automa sonja countOrdered By: Basilio Azevedo on 08-11-2023 MCH (RBC) [Entitic mass] 30.4 pg Normal 24.7-34.3 [facility] Comment on above: Performed By: #### L YTES, GLU, ETOH, CK, PT, BUN, LIPASE, CREAT, SAMUEL, AST, CBC #### [address] MCHC Auto (RBC) [Mass/Vol]Or dered By: Basilio Azevedo on 08-11-2023 MCHC (RBC) [Mass/Vol] 35.1 g/dL 32.0-35.0 [facility] MCV [Entitic volume] by Auto mated countOrdered By: Basilio Azevedo on 08-11-2023 MCV (RBC) [Entitic vol] 86.7 fL Normal 80-100 [facility] Comment on above: Performed By: #### L YTES, GLU, ETOH, CK, PT, BUN, LIPASE, CREAT, SAMUEL, AST, CBC #### [facility] [address] Monocyte distribution width [Entitic volume] in Blood by AutomatedOrdered By: Basilio Azevedo on 08-11-2023 Monocyte distribution width Auto (Bld) [Entitic vol] 17.99 % 0.00-20.00 [facility] Neutrophils [#/volume] in Bl ood by Automated countOrdered By: Basilio Azevedo on 08-11-2023 Neutrophils (Bld) [#/Vol] 5.4 10*3/uL Normal 1.8-7.7 [facility] Comment on above: Performed By: #### L YTES, GLU, ETOH, CK, PT, BUN, LIPASE, CREAT, SAMUEL, AST, CBC #### [facility] [address] Nitrite Test strip Ql (U)Ord ered By: Basilio Azevedo on 08-11-2023 Nitrite Ql (U) Negative Negative [facility] No Panel InformationOrdered By: Basilio Azevedo on 08-11-2023 Estimated GFR (CKD-EPI) > 60.0 mL/Min [facility] Creatinine Clearance (Chem 138.27 [facility] Nucleated erythrocytes [Pres ence] in Blood by Automated countOrdered By: Basilio Azevedo on 08-11-2023 Nucleated RBC Auto Ql (Bld) 0.1 /100{WBC} 0-0.5 [facility] Opiates [Presence] in Urine by Screen methodOrdered By: Basilio Azevedo on 08-11-2023 Opiates Screen Ql (U) Negative Negative [facility] Phencyclidine Screen Ql (U)O rdered By: Basilio Azevedo on 08-11-2023 Phencyclidine Ql (U) Negative Negative [facility] Platelet mean volume [Entiti c volume] in Blood by Automated countOrdered By: Basilio Azevedo on 08-11-2023 Platelet mean volume (Bld) [Entitic vol] 7.7 fL Normal 6.3-10.7 [facility] Comment on above: Performed By: #### L YTES, GLU, ETOH, CK, PT, BUN, LIPASE, CREAT, SAMUEL, AST, CBC #### [facility] [address] [place] [address] [place] Platelets [#/volume] in Bloo d by Automated countOrdered By: Basilio Azevedo on 08-11-2023 Platelets (Bld) [#/Vol] 307 10*3/uL Normal 150-450 [facility] Comment on above: Performed By: #### L YTES, GLU, ETOH, CK, PT, BUN, LIPASE, CREAT, SAMUEL, AST, CBC #### [facility] [address] Potassium [Moles/volume] in Serum or PlasmaOrdered By: Basilio Azevedo on 08-11-2023 Potassium [Moles/Vol] 3.3 mmol/L Low 3.5-5.1 [facility] Comment on above: Performed By: #### L YTES, GLU, ETOH, CK, PT, BUN, LIPASE, CREAT, SAMUEL, AST, CBC ####[facility] [id number] Prothrombin time (PT)Ordered By: Basilio Azevedo on 08-11-2023 PT Coag (PPP) [Time] 12.1 s Normal 9.0-12.9 [facility] Comment on above: A hematocrit value g reater than 55% may lead to inaccurate results in coagulation testing. Patients having hematocrit values >55% require a special collection tube for coagulation studies. Please contact the laboratory at [phone] for redraw instructions. Result Comment: A he matocrit value greater than 55% may lead to inaccurate results in coagulation testing. Patients having hematocrit values >55% require a special collection tube for coagulation studies. Please contact the laboratory at [phone] for redraw instructions. Performed By: #### L YTES, GLU, ETOH, CK, PT, BUN, LIPASE, CREAT, SAMUEL, AST, CBC ####[facility] Serum or plasma anion gap de terminationOrdered By: Basilio Azevedo on 08-11-2023 Anion gap [Moles/Vol] 15.5 mmol/L High 6.0-15.0 [facility] Comment on above: Performed By: #### L YTES, GLU, ETOH, CK, PT, BUN, LIPASE, CREAT, SAMUEL, AST, CBC ####[facility] Sodium [Moles/volume] in Ser um or PlasmaOrdered By: Basilio Azevedo on 08-11-2023 Sodium [Moles/Vol] 138 mmol/L Normal 136-145 [facility] Comment on above: Performed By: #### L YTES, GLU, ETOH, CK, PT, BUN, LIPASE, CREAT, SAMUEL, AST, CBC ####[place] [id number] [place] [id number] [facility] Specific gravity Auto test s trip (U) [Rel density]Ordered By: Basilio Azevedo on 08-11-2023 Specific gravity (U) [Rel density] 1.026 1.001-1.030 [facility] Squamous epithelial cells de tection in urine sediment by light microscopyOrdered By: Basilio Azevedo on 08-11-2023 Epithelial cells.squamous LM Ql (Urine sed) 0-1 [HPF] 0-2 [facility] Type and Screenon 08-11-2023 ABO and Rh group Nom (Bld) Blood group A Rh(D) negative Normal [facility] Comment on above: Result Comment: PERF ORMED BY: [facility] [address] [facility] [address] PATHOLOGIST DIRECTOR OF SUSTAINABILITY KEMAR DUKE M.D. Urea nitrogen [Mass/volume] in Serum or PlasmaOrdered By: Basilio Azevedo on 08-11-2023 Urea nitrogen [Mass/Vol] 11 mg/dL Normal 7-25 [facility] Comment on above: Performed By: #### L YTES, GLU, ETOH, CK, PT, BUN, LIPASE, CREAT, SAMUEL, AST, CBC ####[place] [id number] [place] [id number] [facility] Urine bacteria detection by automated methodOrdered By: Basilio Azevedo on 08-11-2023 Bacteria Auto Ql (U) None seen None Seen [facility] Urine clarity by refractomet ry automatedOrdered By: Basilio Azevedo on 08-11-2023 Clarity Refractometry automated (U) Clear Clear [facility] Urine glucose measurement by automated test strip (mass/volume)Ordered By: Basilio Azevedo on 08-11-2023 Glucose Auto test strip (U) [Mass/Vol] Normal mg/dL Normal [facility] Urine hemoglobin detection b y automated test stripOrdered By: Basilio Azevedo on 08-11-2023 Hemoglobin Auto test strip Ql (U) 2+ Negative [facility] Urine leukocyte esterase det ection by automated test stripOrdered By: Basilio Azevedo on 08-11-2023 Leukocyte esterase Auto test strip Ql (U) Negative Negative [facility] Urine pH measurement by auto mated test stripOrdered By: Basilio Azevedo on 08-11-2023 pH (U) 6.5 [pH] Normal 5.0-9.0 [facility] Comment on above: Order Comment: Name Collection Type:: Clean-Voided Midstream Performed By: #### U HCG, ADDONUAPLUS, URDS #### [facility] [address] [place] [address] Urine protein measurement by automated test strip (mass/volume)Ordered By: Basilio Azevedo on 08-11-2023 Protein (U) [Mass/Vol] 30 mg/dL High Negative [facility] Comment on above: Order Comment: Name Collection Type:: Clean-Voided Midstream Performed By: #### U HCG, ADDONUAPLUS, URDS #### [facility] [address] [place] [address] Urobilinogen Auto test strip (U) [Mass/Vol]Ordered By: Basilio Azevedo on 08-11-2023 Urobilinogen (U) [Mass/Vol] Normal mg/dL Normal [facility] XR chest 1V portableon 08-11 XR chest 1V portable [facility] [place] [address] XRay Report Signed Patient: Chente Gonzalez MR#: [id number] 62 : 1995 Acct:[id number] Age/Sex: 27 / F ADM Date: 08/11/23 Loc: ER Room: Type: [facility] ER Attending Dr: Copies to: Basilio Azevedo DO Ordering Provider: Basilio Azevedo DO Date of Service: 08/11/23 XR/XR chest 1V portable: TRAUMATIC INJURY ([id number]) XR/XR knee LT 2V: TRAUMATIC INJURY ([id number]) XR/XR hand RT min 3V*: TRAUMATIC INJURY [...] Fercho Huddleston M.D.08/11/2023 8:08 PM Dictation Location: [place] [address] Transcribed By: [facility] 08/11/232007 Dictated By: Fercho Huddleston DO 08/11/232005 Signed By: 08/11/232007 Normal [facility] BILIRUBIN CONJUGATED (DIRECT )on 03-03-2022 BILI, CONJUGATED 0.3 mg/dL Critically high 0.0-0.2 [facility] Comment on above: Performed By: #### D FERNANDEZ #### [facility] [address] [place] [address] Dr. Yaritza Bojorquez CBC AUTO DIFFon 03-03-2022 BASO # 0.1 103/ul Normal 0.0-0.1 [facility] Comment on above: Performed By: #### C BC #### [facility] [address] [place] [address] Dr. Yaritza Bojorquez Basophils/100 WBC (Bld) 0.5 % Normal 0.2-2.0 [facility] Comment on above: Performed By: #### C BC #### [facility] [address] [place] [address] Dr. Yaritza Bojorquez EO # 0.0 103/ul Normal 0.0-0.7 [facility] Comment on above: Performed By: #### C BC #### [facility] [address] [place] [address] Dr. Yaritza Bojorquez Eosinophils/100 WBC (Bld) 0.1 % Critically low 0.9-7.0 [facility] Comment on above: Performed By: #### C BC #### [facility] [address] [place] [address] Dr. Yaritza Bojorquez Erythrocyte distribution width (RBC) [Ratio] 12.1 % Normal 11.0-15.0 [facility] Comment on above: Performed By: #### C BC #### [facility] [address] [place] [address] Dr. Yaritza Bojorquez Hematocrit (Bld) [Volume fraction] 45.0 % Normal 36.0-48.0 [facility] Comment on above: Performed By: #### C BC #### [facility] [address] [place] [address] Dr. Yaritza Bojorquez Hemoglobin (Bld) [Mass/Vol] 16.5 g/dL Critically high 12.0-16.0 [facility] Comment on above: Performed By: #### C BC #### [facility] [address] [place] [address] Dr. Yaritza Bojorquez IG # 0.05 10e3/ul Critically high 0.00-0.03 [facility] Comment on above: Performed By: #### C BC #### [facility] [address] [place] [address] Dr. Yaritza Bojorquez IG % 0.3 % Normal 0.0-0.5 [facility] Comment on above: Performed By: #### C BC #### [facility] [address] [place] [address] Dr. Yaritza Bojorquez LYMPH # 3.2 103/ul Normal 1.2-3.8 [facility] Comment on above: Performed By: #### C BC #### [facility] [address] [place] [address] Dr. Yaritza Bojorquez Lymphocytes/100 WBC (Bld) 21.6 % Normal 20.5-60.0 [facility] Comment on above: Performed By: #### C BC #### [facility] [address] [place] [address] Dr. Yaritza Bojorquez MANUAL DIFF REQ NO Normal [facility] Comment on above: Performed By: #### C BC #### [facility] [address] [place] [address] Dr. Yaritza Bojorquez MCH (RBC) [Entitic mass] 30.7 pg Normal 26.7-34.0 [facility] Comment on above: Performed By: #### C BC #### [facility] [address] [place] [address] [address] Yaritza Bojorquez MCHC (RBC) [Mass/Vol] 36.7 g/dL Critically high 29.9-35.2 [facility] Comment on above: Performed By: #### C BC #### [facility] [address] [id number] Yaritza Bojorquez MCV (RBC) [Entitic vol] 83.8 fL Normal 81.0-99.0 [facility] Comment on above: Performed By: #### C BC #### [facility] [address] [place] [address] [address] Yaritza Bojorquez MONO # 0.8 103/ul Normal 0.3-0.8 [facility] Comment on above: Performed By: #### C BC #### [facility] [address] [place] [address] Dr. Yaritza Bojorquez Monocytes/100 WBC (Bld) 5.3 % Normal 1.7-12.0 [facility] Comment on above: Performed By: #### C BC #### [facility] [address] [place] [address] Dr. Yaritza Bojorquez NEUT # 10.5 103/ul Critically high 1.4-6.5 [facility] Comment on above: Performed By: #### C BC #### [facility] [address] [place], [place] [id number] Dr. Yaritza Bojorquez Neutrophils/100 WBC (Bld) 72.2 % Normal 43.0-75.0 [facility] Comment on above: Performed By: #### C BC #### [facility] [address] [place], [place] [id number] Dr. Yaritza Bojorquez Platelet mean volume (Bld) [Entitic vol] 10.0 fL Normal 9.5-13.5 [facility] Comment on above: Performed By: #### C BC #### [facility] [address] [place], [place] [id number] Dr. Yaritza Bojorquez PLT 450 103/ul Normal 150-450 [facility] Comment on above: Performed By: #### C BC #### [facility] [address] [place] [address] Dr. Yaritza Bojorquez RBC 5.37 106/ul Normal 4.20-5.40 [facility] Comment on above: Performed By: #### C BC #### [facility] [address] [place] [address] Dr. Yaritza Bojorquez WBC 14.6 103/ul Critically high 4.0-11.0 [facility] Comment on above: Performed By: #### C BC #### [facility] [address] [place] [address] Dr. Yaritza Bojorquez CULTURE URINEon 03-03-2022 CULTURE URINE Culture Observations : LIGHT GROWTH OF MIXED GENITAL KRYSTAL. NO POTENTIAL PATHOGENS SEEN. Normal [facility] Comment on above: Performed By: #### U RCX #### [facility] [address] [place] [address] Dr. Yaritza Bojorquez ER URINE PROFILEon 2 Bilirubin Ql (U) Negative Normal NEGATIVE [facility] Comment on above: Performed By: #### [place] URIBE UMRAJANRO #### [facility] [address] [place] [address] Dr. Yaritza Bojorquez Clarity (U) CLEAR Normal CLEAR [facility] Comment on above: Performed By: #### BABAK MAERO #### [facility] [address] [place] [address] Dr. Yaritza Bojorquez Color (U) DK. YELLOW Normal YELLOW [facility] Comment on above: Performed By: #### BABAK MAERO #### [facility] [address] [place] [address] Dr. Yaritza Bojorquez ERUAHD A micrscopic examina tion will be performed if indicated. Normal [facility] Comment on above: Performed By: #### BABAK MAERO #### [facility] [address] [place] [address] Dr. Yaritza Bojorquez Glucose Ql (U) Negative Normal NEGATIVE [facility] Comment on above: Performed By: #### [place] URIBE UMRAJANRO #### [facility] [address] [place] [address] Dr. Yaritza Bojorquez Hemoglobin Ql (U) Negative Normal NEGATIVE [facility] Comment on above: Performed By: #### E JOJO, UMICRO #### [facility] [address] [place] [address] Dr. Yaritza Bojorquez Ketones Ql (U) >=80 Abnormal NEGATIVE [facility] Comment on above: Performed By: #### E JOJO, UMICRO #### [facility] [address] [place] [address] Dr. Yaritza Bojorquez LEUKOCYTES TRACE Abnormal NEGATIVE [facility] Comment on above: Performed By: #### E JOJO, UMICRO #### [facility] [address] [place] [address] Dr. Yaritza Bojorquez Nitrite Ql (U) Negative Normal NEGATIVE [facility] Comment on above: Performed By: #### E JOJO UMICRO #### [facility] [address] [place] [address] Dr. Yaritza Bojorquez pH (U) 6.5 [pH] Normal 5-9 [facility] Comment on above: Performed By: #### [place] URIBE UMICRO #### [facility] [address] [place] [address] Dr. Yaritza Bojorquez Protein (U) [Mass/Vol] 100 mg/dL Abnormal NEGAT TORSTEN/ TRACE [facility] Comment on above: Performed By: #### [place] URIBE UMICRO #### [facility] [address] [place] [address] Dr. Yaritza Bojorquez SPEC GRAVITY 1.025 Normal 1.005-<=1.0 25 [facility] Comment on above: Performed By: #### [place]oval URIBE UMICRO #### [facility] [address] [place] [address] Dr. Yaritza Bojorquez UR MICRO IND INDICATED Normal [facility] Comment on above: Performed By: #### E JOJO, UMICRO #### [facility] [address] [place] [address] Dr. Yaritza Bojorquez Urobilinogen Qn (U) 4 {Emir'U}/dL Abnormal 0.2 - 1.0 [facility] Comment on above: Performed By: #### E JOJOALBARAJANMARK #### [facility] [address] [place] [address] [address] Yaritza Bojorquez PROF 14(COMP METB)on 022 Albumin [Mass/Vol] 4.5 g/dL Normal 3.4-5.0 [facility] Comment on above: Performed By: #### C MP #### [facility] [address] [place] [address] Dr. Yaritza Bojorquez Albumin/Globulin [Mass ratio] 1.2 {ratio} Normal [facility] Comment on above: Performed By: #### C MP #### [facility] [address] [place] [address] Dr. Yaritza Bojorquez ALP [Catalytic activity/Vol] 48 U/L Normal 46-116 [facility] Comment on above: Performed By: #### C MP #### [facility] [address] [place] [address] Dr. Yaritza Bojorquez ALT [Catalytic activity/Vol] 25 U/L Normal 14-59 [facility] Comment on above: Performed By: #### C MP #### [facility] [address] [place] [address] Dr. Yaritza Bojorquez Anion gap [Moles/Vol] 17.8 mmol/L Normal [facility] Comment on above: Performed By: #### C MP #### [facility] [address] [place] [address] Dr. Yaritza Bojorquez AST [Catalytic activity/Vol] 11 U/L Critically low 15-37 [facility] Comment on above: Performed By: #### C MP #### [facility] [address] [place] [address] Dr. Yaritza Bojorquez Bilirubin [Mass/Vol] 1.4 mg/dL Critically high 0.2-1.0 [facility] Comment on above: Performed By: #### C MP #### [facility] [address] [place] [address] Dr. Yaritza Bojorquez Calcium [Mass/Vol] 9.3 mg/dL Normal 8.5-10.1 [facility] Comment on above: Performed By: #### C MP #### [facility] [address] [place] [address] [address] Yaritza Bojorquez Chloride [Moles/Vol] 98 mmol/L Normal 98-107 [facility] Comment on above: Performed By: #### C MP #### [facility] [address] [place] [address] [address] Yaritza Bojorquez CO2 [Moles/Vol] 19.1 mmol/L Critically low 21.0-32.0 [facility] Comment on above: Performed By: #### C MP #### [facility] [address] [place] [address] [address] Yaritza Bojorquez Creatinine [Mass/Vol] 0.95 mg/dL Normal 0.55-1.02 [facility] Comment on above: Performed By: #### C MP #### [facility] [address] [place] [address] [address] Yaritza Bojorquez EGFR-AF ANDORRAN >60 Normal >=60 [facility] Comment on above: Performed By: #### C MP #### [facility] [address] [place] [address] [address] Yaritza Bojorquez EGFR-NON AF ANDORRAN >60 Normal >=60 [facility] Comment on above: Performed By: #### C MP #### [facility] [address] [place] [address] [address] Yaritza Bojorquez Globulin (S) [Mass/Vol] 3.6 g/dL Normal [facility] Comment on above: Performed By: #### C MP #### [facility] [address] [place] [address] [address] Yaritza Bojorquez Glucose [Mass/Vol] 138 mg/dL Critically high 74-106 T [facility] Comment on above: Performed By: #### C MP #### [facility] [address] [address] [address] Yaritza Bojorquez Potassium [Moles/Vol] 2.9 mmol/L Critically low 3.5-5.1 [facility] Comment on above: Performed By: #### C MP #### [facility] [address] [place] [address] Dr. Yaritza Bojorquez Protein [Mass/Vol] 8.1 g/dL Normal 6.4-8.2 [facility] Comment on above: Performed By: #### C MP #### [facility] [address] [place] [address] Dr. Yaritza Bojorquez Sodium [Moles/Vol] 132 mmol/L Critically low 136-145 Th [facility] Comment on above: Performed By: #### C MP #### [facility] [address] [place] [address] Dr. Yaritza Bojorquez Urea nitrogen [Mass/Vol] 8.0 mg/dL Normal 7.0-18.0 [facility] Comment on above: Performed By: #### C MP #### [facility] [address] [place] [address] Dr. Yaritza Bojorquez Urea nitrogen/Creatinine [Mass ratio] 8.4 mg/mg Normal [facility] Comment on above: Performed By: #### C MP #### [facility] [address] [place] [address] Dr. Yaritza Bojorquez URINE MICROSCOPIC ONLYon BACTERIA MODERATE Abnormal NONE SEEN [facility] Comment on above: Performed By: #### BABAK MAERO #### [facility] [address] [place] [address] Dr. Yaritza Bojorquez Bacteria identified Cx Nom (U) INDICATED Normal [facility] Comment on above: Performed By: #### Sandoval URIBE UMICRO #### [facility] [address] [place] [address] Dr. Yaritza Bojorquez CAST NONE SEEN Normal NONE SEEN [facility] Comment on above: Performed By: #### Sandoval URIBE UMICRO #### [facility] [address] [place] [address] Dr. Yaritza Bojorquez Crystals LM Nom (Urine sed) NONE SEEN Normal NONE SEEN [facility] Comment on above: Performed By: #### Sandoval URIBE UMICRO #### [facility] [address] [place] [address] Dr. Yaritza Bojorquez Epithelial cells LM Ql (Urine sed) MANY Abnormal NONE SEEN /RARE [facility] Comment on above: Performed By: #### E RUR, UMICRO #### [facility] [address] [address] [address] Yaritza Bojorquez MUCOUS SMALL Abnormal NONE SEEN [facility] Comment on above: Performed By: #### E RUR, UMICRO #### [facility] [address] [address] [address] Yaritza Bojorquez RBC 2-5 Abnormal 0-2 [facility] Comment on above: Performed By: #### E RUR, UMICRO #### [facility] [address] [address] [address] Yaritza Bojorquez WBC 5-10 Abnormal NONE SEEN [facility] Comment on above: Performed By: #### E RUR, UMICRO #### [facility] [address] [address] [address] Yaritza Bojorquez XR ABD FLAT UP_PA [...] MACK SAMUELS Date: 2022-03-03 07:46 Normal [facility] Covid-19 PCR (CVDTBH)on 07-29 SARS-CoV-2 (COVID-19) RNA KOLE+probe Ql (Unsp spec) Not detected Normal NOT DETECTED The [facility] Comment on above: Result Comment: This test is not yet approved or cleared by the [place] FDA. When there are no FDA-approved or cleared tests available, and other criteria are met, FDA can make tests available under an emergency access mechanism called an Emergency Use Authorization (EUA). The EUA for this test is supported by the Clinical Research Management Associate of Health and Human Service's (HHS's) declaration [...] consistent with SARS-CoV-2. Performed By: #### C [facility] #### [facility] [address] [place] [address] Dr. Yaritza Bojorquez Provider Note - ED [...] No Current Medications SIGNIFICANT EVENTS: Immunizations Description:Tdap INSURANCE VERIFY REP: Is : no(1) Is : no(1) RESULTS/VITAL SIGNS VITAL SIGNS: T PRBP SpO2O2(LPM) %FiO2 Method 22-Jun-2019 18:54:[id number] 99 room air, no respiratory support 22-Jun-2019 18:07:[id number]/71 97 room air, no respiratory support MEDICAL [...] - Final Verification: completed Procedure performed by: ri Personal Care Assistant(s): none Findings: grossly normal anatomy Specimen: [...] From Triage - ED 22-Jun-2019 18:07 Normal [facility] Risk Screen - Adult Emergenc yon 06-22-2019 Risk Screen - Adult Emergency Preferred Language: Preferred Language: Preferred Language for Discussing Health Care (patient/designee)Japanese Advanced Directives: Advance Directive/DNRno Family Violence Adult: Abuse Screen: Are you or have you been threatened or abused physically, emotionally, or sexually by anyoneno Learning Assessment (Patient): Learning Assessment (Patient): Patient is Able to be Assessed for Learningyes Factors Influencing Readiness to Learnacuteness of illness Factors that Impact Ability to Learnnone Devices/Methods Used to Communicatenone Learning Preferencesaudio Cultural Considerationsnone Developmental Considerationsnone Pentecostal Considerationsnone Learning Assessment (Other Learner): Learning Assessment (Other Learner): Other learner availableno Pressure Injury/TB/Substance: Pressure Injury: Pressure Injury Present on Admissionno Do you have a coughno Substance Use Current or Former Historynever: Cigarette/Tobacco, e-Cigarette/Vaping, Alcohol, Street Drugs Admission Risk Screen: Significant IndicatorsComplete CAGE: CAGE: Is this an injured patient at a Tra[place] Center [place]/[facility]): yes C: Have you ever felt you needed to Cut down on your drinking: no A: Have people Annoyed you by criticizing your drinking: no G: Have you ever felt Guilty about drinking: no E: Have you ever felt you needed a drink first thing in the morning (Eye-group home counselor) to steady your nerves or to get rid of hangover: no Electronic Signatures: Mehdi Chaney) (Signed 26-Oct-2019 18:11) Authored: Preferred Language, Advanced Directives, Family Violence Adult, Learning Assessment (Patient), Learning Assessment (Other Learner), Pressure Injury/TB/Substance, CAGE Last Updated: 22-Jun-2019 18:11 by Mehdi Chaney) [facility] Triage - EDon 06-22-2019 Triage - [...] Accompanied By: self Language: Spoken Language Preferred: Japanese PRIMARY ASSESSMENT CHENTE GONZALEZ's primary assessment is [...] Last Updated: 22-Jun-2019 18:40 by Nitin Singer (YAALA) Normal [facility] Vital Signs Date Time Vital Sign Value Performing Clinician Facility 12-23-2024 13:51-0400 Body mass index (BMI) [Ratio] 31.35 kg/m2 DrDoctor DO Work Phone: [facility] 12-23-2024 13:51-0400 Body weight 85.46 kg DrDoctor DO Work Phone: [facility] 12-23-2024 13:51-0400 Diastolic blood pressure 78 mm[Hg] [employer] Work Phone: [facility] 12-23-2024 13:51-0400 Systolic blood pressure 118 mm[Hg] [employer] DO Work Phone: [facility] 08-11-2023 22:07-0500 Diastolic blood pressure 64 mm[Hg] PHYSICIAN NO [facility] 08-11-2023 22:07-0500 Heart rate 71 /min PHYSICIAN NO [facility] 08-11-2023 22:07-0500 Respiratory rate 18 /min PHYSICIAN NO [facility] 08-11-2023 22:07-0500 SaO2% (BldA) [Mass fraction] 99 % PHYSICIAN NO [facility] 08-11-2023 22:07-0500 Systolic blood pressure 126 mm[Hg] PHYSICIAN NO [facility] 08-11-2023 19:17-0500 Body height 170.18 cm PHYSICIAN NO [facility] 08-11-2023 19:17-0500 Body weight 80.73 kg PHYSICIAN NO [facility] Encounters Encounter Date Encounter Type Care Provider Facility Start: 12-23-2024 End: 12-23-2024 Bamboo flowsheet Tyrell Angie DO Work Phone: [facility] Start: 12-23-2024 End: 12-23-2024 Bamboo flowsheet Tyrell Angie DO Work Phone: [facility] Start: 12-23-2024 End: 12-23-2024 ambulatory TYRELL ANGIE Not Available Start: 12-23-2024 End: 12-23-2024 Office outpatient visit 15 minutes Tyrell Angie DO Work Phone: [facility] Comment on above: Hyperemesis gravidar um; Follow-up exam Start: 08-11-2023 End: 08-11-2023 Emergency department patient visit PHYSICIAN NO [facility] Work Phone: Start: 03-03-2022 End: 03-03-[address] DOCTOR BARBOZA Facility:[facility] Start: 08-23-2021 End: 08-23-2021 ambulatory ADEOLA COHEN Facility:[facility] Procedures Date Procedure Procedure Detail Performing Clinician Start: 08-11-2023 Antibody screen Basilio rodriguez Comment on above: Result Comment: PERF ORMED BY: [facility] [address] [place] [address] PATHOLOGIST DIRECTOR OF SUSTAINABILITY KEMAR DUKE M.D. Start: 08-11-2023 Plain X-ray [...] of Treatment Date Care Activity Detail Author Start: 01-10-2025 End: 01-10-2025 ambulatory 01/10/2025 9:30 AM EDT Initial [facility] [address] [place] [address] [facility] Start: 01-10-2025 End: 01-10-2025 Professional / ancillary services management 01/10/2025 9:00 AM EDT Ancillary Procedure [facility] [address] [place] [address] [facility] Patient Education Head injury in adults Blunt Abdominal Trauma ED Blunt Chest Trauma ED [facility] Work Phone: Patient referral [facility] Work Phone: Immunizations Immunization Date Immunization Notes Care Provider Fa [facility] 08-11-2023 tetanus toxoid, redu christie diphtheria toxoid, and acellular pertussis vaccine, adsorbed PHYSICIAN NO [facility] Payers Date Payer Category Payer Medicaid [facility] [id number] 2023 Self-pay [id number] 2023 Unknown [id number] 2022 Unknown [id number] 1997 Unknown [id number] 1997 Unknown [id number] 1959 Unknown [id number] Unknown Regular Auto/Liability [id number] Unknown HCAP/HFA/FAP Active [id number] Unknown [id number] Social History Date Type Detail Facility Start: 08-11-2023 Tobacco smoking stat [facility] Never smoked tobacco (finding) [facility] Start: 1995 Sex Assigned At Female F [facility] Tobacco smoking stat [facility] Tobacco smoking consumption unknown [facility] Start: 12-22-2024 Gender identity Identifies as female gender (finding) [facility] Sexual orientation Not on file [facility] History of Present illness Narrative 12-23-2024 Nissa Matt LPN - 12/23/2024 1:30 PM EDT Note Date & Type Note Facility 12-23-2024 History of Presen t illness Narrative Reason for Appointment: Patient ID: Chente Gonzalez is a 29 y.o. female who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
[2025-01-04 19:41] VITALS: BP 157/75; PULSE 91; TEMP 36.9; O2SAT 96; BMI 29.1
--- NOTE | 2025-01-04 19:53 | PC.NURSE ---
coughing and spitting in emesis bag
[2025-01-04] MEDS: 0.9 % SODIUM CHLORIDE 1,000 ML 1000 ML IV (20:07)
[2025-01-04] MEDS: ONDANSETRON PF 4 MG/2 ML VIAL IV (20:09)
[2025-01-04] MEDS: METOCLOPRAMIDE HCL 10 MG/2 ML VIAL IVP (20:09)
[2025-01-04 20:26] LABS: Basophils Percent Auto 0.3 % (0.2-2.0); Eosinophils Percent Auto 0.1 % (0.9-7.0); Hemoglobin 14.5 g/dL (12.0-16.0); Immature Granulocytes Abs Auto 0.12 10^3/uL (0.00-0.03); Immature Granulocytes Pct Auto 0.8 % (0.0-0.5); Lymphocytes Absolute Auto 1.6 10^3/uL (1.2-3.8); Lymphocytes Percent Auto 10.3 % (20.5-60.0); Mean Corpuscular HGB Conc 37.2 g/dL (29.9-35.2); Mean Corpuscular Hemoglobin 32.2 pg (26.7-34.0); Mean Corpuscular Volume 86.5 fL (81.0-99.0); Mean Platelet Volume 9.3 fL (9.5-13.5); Monocytes Absolute Auto 0.8 10^3/uL (0.3-0.8); Monocytes Percent Auto 5.3 % (1.7-12.0); Neutrophils Absolute Auto 12.8 10^3/uL (1.4-6.5); Neutrophils Percent Auto 83.2 % (43.0-75.0); Platelet Count 409 10^3/uL (150-450); Red Blood Count 4.51 10^6/uL (4.20-5.40); Red Cell Distribution Width 12.6 % (11.0-15.0); White Blood Count 15.3 10^3/uL (4.0-11.0)
--- NOTE | 2025-01-04 20:35 | ED_ITS ---
HPI HPI - General Adult General Chief complaint: Nausea/Vomiting/Diarrhea Stated complaint: Morning sickness Time Seen by Provider: 01/04/25 19:46 Source: patient Mode of arrival: walk-in Limitations: no limitations History of Present Illness HPI narrative: 29-year-old female presents emergency room chief complaint nausea vomiting. She is approximately 13 weeks . She states she has had nausea and vomiting since 1 PM yesterday. She does have Zofran at home and has not been helping. Patient does states she has smoked marijuana. Patient denies any pain she denies abdominal pain or vaginal bleeding. She has had her intake appointment with her primary SUSTAINABLE AGRICULTURE SPECIALIST. I am familiar with this patient. Related Data Previous Rx's ?Medication ?Instructions ?Recorded ondansetron 4 mg disintegrating 4 mg PO TID PRN nausea and 11/15/24 tablet vomiting 20 days #30 tabs promethazine 25 mg tablet 25 mg PO BID PRN nausea and 12/08/24 vomiting #7 tabs pantoprazole 40 mg tablet,delayed 40 mg PO DAILY #30 t abs 12/12/24 release (Protonix) potassium chloride 20 mEq 20 meq PO TID #90 tabs 12/12 tablet,extended release promethazine 25 mg rectal 25 mg LA Q4H PRN nausea and 12/12/24 suppository vomiting #36 ea promethazine 25 mg tablet 25 mg PO Q4H PRN nausea and 12/12/24 vomiting #20 tabs metoclopramide HCl 10 mg tablet 10 mg PO Q8H PRN nause a and 01/04/25 (Reglan) vomiting #20 tabs Allergies Allergy/AdvReac Type Severity Reaction Status Date / Time Penicillins Allergy Unknown Verified 01/06/25 00:55 Opioid HPI Opioid Management Most Recent Opioid Data: Last Pain Scale 4 12/11/24, 20:00 Last ORT Total Score 4 12/11/24, 16:31 Last ORT Risk Category Moderate Risk 12/11/24, 16:31 Review of Systems ROS Status of ROS 10 or more systems reviewed and unremark able except as noted in history and below [facility] Medical History (Updated 01/06/25 @ 05:29 by Cristal Miguel MD) Hyperemesis gravidarum ?O21.0 - Mild hyperemesis gravidarum (ICD-10) Hypokalemia ?E87.6 - Hypokalemia (ICD-10) ?Z34.90 - Encounter for supervision of normal , unspecified, unspecified trimester (ICD-10) Acute hypokalemia ?E87.6 - Hypokalemia (ICD-10) Social History Highest level of school completed/degree received: high school graduate Little interest or pleasure in doing things: not at all Feeling down, depressed, or hopeless: not at all Exam Narrative Exam Narrative: All Systems are negative except as noted/marked.All systems reviewed and otherwise negative Nurses note and vital signs reviewed and patient is not hypoxic. General: The patient appears well and in no apparent distress. Patient is resting comfortably on cart. Skin: Warm, dry, no pallor noted. There is no rash noted. Head: Normocephalic, atraumatic Eye: Normal conjunctiva, no drainage, EOMI. PERRL Ears, Nose, Mouth, and Throat: oral mucosa is moist. Nares patent. Mouth without vesicles. Ear canals patent. Tm's without Erythema Cardiovascular: Regular Rate and Rhythm Respiratory: Patient is in no distress, no accessory muscle use, lungs are clear to auscultation, no wheezing, rales or rhonchi Back: non-tender, no CVA tenderness bilaterally to percussion. GI: Normal bowel sounds, no tenderness to palpation, no masses appreciated. No rebound, guarding, or rigidity noted. Musculoskeletal: The patient has no evidence of calf tenderness, no pitting edema, symmetrical pulses noted bilaterally Neurological: A&O x4, normal speech Psychiatric: Cooperative Constitutional Vital Signs, click to edit/add: Last Vital Signs Temp 98.4 F 01/04/25 19:41 Pulse 86 01/04/25 20:54 Resp 18 01/04/25 20:54 BP 119/59 01/04/25 20:54 Pulse Ox 98 01/04/25 20:54 O2 Del Method Room Air 01/04/25 20:54 Course Vital Signs Vital signs: Vital Signs Temperature 98.4 F 01/04/25 19:41 Pulse Rate 91 H 01/04/25 19:41 Respiratory Rate 18 01/04/25 19:41 Blood Pressure 157/75 H 01/04/25 19:41 Pulse Oximetry 96 01/04/25 19:41 Oxygen Delivery Method Room Air 01/04/25 19:41 Temperature 98.4 F 01/04/25 19:41 Pulse Rate 86 01/04/25 20:54 Respiratory Rate 18 01/04/25 20:54 Blood Pressure 119/59 01/04/25 20:54 Pulse Oximetry 98 01/04/25 20:54 Oxygen Delivery Method Room Air 01/04/25 20:54 Medical Decision Making MDM Narrative Medical decision making narrative: 29-year-old female presents emergency room chief complaint nausea vomiting. She is approximately 13 weeks . She states she has had nausea and vomiting since 1 PM yesterday. She does have Zofran at home and has not been helping. Patient does states she has smoked marijuana. Patient denies any pain she denies abdominal pain or vaginal bleeding. She has had her intake appointment with her primary SUSTAINABLE AGRICULTURE SPECIALIST. I am familiar with this patient. Patient is currently approximately 13 weeks . heart tones 152. Upon arrival to the emergency room patient was given IV fluids Reglan and Zofran. I am familiar with this patient. Transfer care to Dr. Mathew. Patient be discharged to home diagnosis of nausea vomiting. She will follow-up as scheduled at Dr. Adams's office. Reasons to return to the emergency room were discussed. Differential Diagnosis Differential Diagnosis: , Nausea vomiting, hyperemesis Medical Records Medical records reviewed: Yes I reviewed the patient's medical records Lab Data Lab results reviewed: Yes I reviewed the patient's lab results Labs: Lab Results 01/04/25 01/04/25 Range/Units 20:10 21:35 WBC 15.3 H (4.0-11.0) 10^3/uL RBC 4.51 (4.20-5.40) 10^6/uL Hgb 14.5 (12.0-16.0) g/dL Hct 39.0 (36.0-48.0) % MCV 86.5 (81.0-99.0) fL MCH 32.2 (26.7-34.0) pg MCHC 37.2 H (29.9-35.2) g/dL RDW 12.6 (11.0-15.0) % Plt Count 409 (150-450) 10^3/uL MPV 9.3 L (9.5-13.5) fL Neut % (Auto) 83.2 H (43.0-75.0) % Lymph % (Auto) 10.3 L (20.5-60.0) % [place] % (Auto) 5.3 (1.7-12.0) % Eos % (Auto) 0.1 L (0.9-7.0) % Baso % (Auto) 0.3 (0.2-2.0) % Neut # (Auto) 12.8 H (1.4-6.5) 10^3/uL Lymph # (Auto) 1.6 (1.2-3.8) 10^3/uL [place] # (Auto) 0.8 (0.3-0.8) 10^3/uL Eos # (Auto) 0.0 (0.0-0.7) 10^3/uL Baso # (Auto) 0.0 (0.0-0.1) 10^3/uL Abs Immat Gran (auto) 0.12 H (0.00-0.03) 10^3/uL Imm/Tot Granulo (auto) 0.8 H (0.0-0.5) % Sodium 133 L (136-145) mmol/L Potassium 2.9 L* (3.5-5.1) mmol/L Chloride 96 L (98-107) mmol/L Carbon Dioxide 20.1 L (21.0-32.0) mmol/L Anion Gap 19.8 BUN 11.0 (7.0-18.0) mg/dL Creatinine 0.76 (0.55-1.02) mg/dL Est GFR ( Amer) >60 (>=60 mL/min/1.73m^2) Est GFR (Non-Af Amer) >60 (>=60 mL/min/1.73m^2) BUN/Creatinine Ratio 14.5 Glucose 113 H (74-106) mg/dL Calcium 9.3 (8.5-10.1) mg/dL Total Bilirubin 1.2 H (0.2-1.0) mg/dL AST 20 (15-37) U/L ALT 42 (14-59) U/L Alkaline Phosphatase 50 (46-116) U/L Total Protein 7.7 (6.4-8.2) g/dL Albumin 3.6 (3.4-5.0) g/dL Globulin 4.1 g/dL Albumin/Globulin Ratio 0.9 HCG, Quant 17305 mIU/mL Urine HCG, Qual Positive A (NEGATIVE) Discharge Plan Discharge Chief Complaint: Nausea/Vomiting/Diarrhea Clinical Impression: Nausea & vomiting Patient Disposition: Home, Self-Care Time of Disposition Decision: 21:17 Condition: Good Mode of Transportation: Private Vehicle Prescriptions / Home Meds: New metoclopramide HCl [Reglan] 10 mg tablet 10 mg PO Q8H PRN (Reason: nausea and vomiting) Qty: 20 0RF No Action ondansetron 4 mg tablet,disintegrating 4 mg PO TID PRN (Reason: nausea and vomiting) 20 Days Qty: 30 0RF promethazine 25 mg tablet 25 mg PO BID PRN (Reason: nausea and vomiting) Qty: 7 0RF pantoprazole [Protonix] 40 mg tablet,delayed release (DR/EC) 40 mg PO DAILY Qty: 30 11RF potassium chloride 20 mEq tablet extended release 20 meq PO TID Qty: 90 11RF promethazine 25 mg tablet 25 mg PO Q4H PRN (Reason: nausea and vomiting) Qty: 20 0RF promethazine 25 mg suppository 25 mg LA Q4H PRN (Reason: nausea and vomiting) Qty: 36 0RF Print Language: [place]ian Instructions: Acute Nausea and Vomiting (ED) Referrals: Jaspreet Adams DO [Physician, SUSTAINABLE AGRICULTURE SPECIALIST] - 1 week Referral Note: call office for follow up appointment in nausea and vomiting continue Physician,Non-Staff, MD [Primary Care Provider] - 1 week Discharge Date/Time: 01/04/25 21:51
[2025-01-04 20:54] VITALS: BP 119/59; PULSE 86; O2SAT 98
[2025-01-04 21:08] LABS: Alanine Aminotransferase 42 U/L (14-59); Albumin Globulin Ratio 0.9; Albumin Level 3.6 g/dL (3.4-5.0); Alkaline Phosphatase 50 U/L (46-116); Anion Gap 19.8; Aspartate Amino Transferase 20 U/L (15-37); BUN Creatinine Ratio 14.5; Bilirubin Total 1.2 mg/dL (0.2-1.0); Calcium 9.3 mg/dL (8.5-10.1); Carbon Dioxide 20.1 mmol/L (21.0-32.0); Chloride 96 mmol/L (98-107); Estimated GFR (African America >60 (>=60 mL/min/1.73m^2); Estimated GFR (Non-African Ame >60 (>=60 mL/min/1.73m^2); Globulin 4.1 g/dL; Glucose 113 mg/dL (74-106); HCG Quantitative 55753 mIU/mL; Sodium 133 mmol/L (136-145); Total Protein 7.7 g/dL (6.4-8.2)
[2025-01-04 21:09] LABS: Potassium 2.9 mmol/L (3.5-5.1)
[2025-01-04] MEDS: POTASSIUM CHLORIDE 10 MEQ ER TABLET 20 MEQ PO (21:32)
[2025-01-04 21:52] LABS: HCG Qualitative Urine* POSITIVE (NEGATIVE); Internal Control Within Normal Limits
== END 2025-01-04 21:51 | disposition home or self-care (01) ==
PROVIDERS: Physician Assistant; Emergency Provider Internal Medicine
DX: O21.9 Vomiting of pregnancy, unspecified (principal); Z3A.13 13 weeks gestation of pregnancy
CPT/HCPCS: 36415; 80053; 84702; 84703; 85025; 96361; 96374; 96375; 99284; J2405; J2765

== ENCOUNTER → 2025-01-06 00:47 | Emergency (ER) | payer MEDICAID, SELFPAY ==
[2025-01-06 00:55] VITALS: BP 146/85; PULSE 65; TEMP 37.3; O2SAT 99; BMI 29.1
--- OUTSIDE RECORDS SUMMARY | 2025-01-06 00:56 | XMS_ITS | CCD ---
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 Name Role Phone ADEOLA COHEN Admitting Unavailable ADEOLA COHEN Attending Unavailable TAMRA, DR BUTLER Primary Care Unavailable ADEOLA COHEN Consulting Unavailable TAMRA, DR BUTLER Primary Care Unavailable ADRIAN CHRISTIANSEN Admitting Unavailable ADRIAN CHRISTIANSEN Attending Unavailable DR MACK SAMUELS Consulting Unavailable JOSE, DR SHERMAN Consulting Unavailable ADRIAN CHRISTIANSEN Consulting Unavailable NO FAMILY, PHYSICIAN Primary Care Provider Unava ilDO Basilio Arreola Emergency Provider [phone] Basilio Azevedo Attending Unavailable Basilio Azevedo Admitting Unavailable NO FAMILY, PHYSICIAN Primary Care Unavailable Unavailable Primary Care Provider UnavailTYRELL Tuttle Attending Unavailable Allergies Allergy Classification Reported Allergen(s) Allergy Type Date of Onset Reaction(s) Facility (1 source) Penicillins Drug allergy (disorder) 09-28-2014 [facility] Repository (1 source) Penicillins Drug allergy (disorder) 02-22-2022 [facility] Repository (2 sources) Penicillins Drug [...] 04-05-2021 End: 02-20-2022 Promethazine Discontinued 25 MG OK Q6H April 04, 2021 11:00pm February 20, 2022 7:12am Start: 12-27-2019 End: 08-04-2020 take 12.5 mg by mouth every six hours Promethazine Discontinued 12.5 MG PO Q6H December 26, 2019 11:00pm August 04, 2020 9:41am Completed/Discontinued Medications Medication Drug Class(es) Dates Sig (Normalized) Sig (Original) [id number] 200 actuat albuterol 0.09 mg/actuat metered dose [...] D2) 1,250 mcg (50,000 unit) Capsule Discontinued 70280 UNIT PO every week 4 December 26, [...] on 08-11-2023 Amphetamines Ql (U) Negative Negative [facility] Amylase [Enzymatic activity/ volume] in Serum or PlasmaOrdered By: Basilio Azevedo on 08-11-2023 Amylase [Catalytic activity/Vol] 32 U/L Normal 29-103 [facility] Comment on above: Performed By: #### L YTES, GLU, ETOH, CK, PT, BUN, LIPASE, CREAT, SAMUEL, AST, CBC ####[facility] [id number] [place] [address] [facility] Aspartate aminotransferase [ Enzymatic activity/volume] in Serum or PlasmaOrdered By: Basilio Azevedo on 08-11-2023 AST [Catalytic activity/Vol] 24 U/L Normal 13-39 [facility] Comment on above: Performed By: #### L YTES, GLU, ETOH, CK, PT, BUN, LIPASE, CREAT, SAMUEL, AST, CBC ####[facility] Automated basophil %Ordered By: Basilio Azevedo on 08-11-2023 Basophils/100 WBC (Bld) 0.9 % Normal . [facility] Comment on above: Performed By: #### L YTES, GLU, ETOH, CK, PT, BUN, LIPASE, CREAT, SAMUEL, AST, CBC #### [facility] [address] Automated basophil countOrde red By: Basilio Azevedo on 08-11-2023 Basophils (Bld) [#/Vol] 0.1 10*3/uL Normal 0.0-0.2 [facility] Comment on above: Result Comment: PERF ORMED BY: [place] [address] PATHOLOGIST SPINNING MULE OPERATOR KEMAR DUKE M.D. Performed By: #### L YTES, GLU, ETOH, CK, PT, BUN, LIPASE, CREAT, SAMUEL, AST, CBC #### [address] Automated blood monocyte cou ntOrdered By: Basilio Azevedo on 08-11-2023 Monocytes (Bld) [#/Vol] 0.5 10*3/uL Normal 0.0-0.8 [facility] Comment on above: Performed By: #### L YTES, GLU, ETOH, CK, PT, BUN, LIPASE, CREAT, SAMUEL, AST, CBC #### [address] Automated eosinophil %Ordere d By: Basilio Azevedo on 08-11-2023 Eosinophils/100 WBC (Bld) 1.3 % Normal . [facility] Comment on above: Performed By: #### L YTES, GLU, ETOH, CK, PT, BUN, LIPASE, CREAT, SAMUEL, AST, CBC #### [address] Automated eosinophil countOr dered By: Basilio Azevedo on 08-11-2023 Eosinophils (Bld) [#/Vol] 0.1 10*3/uL Normal 0.0-0.45 [facility] Comment on above: Performed By: #### L YTES, GLU, ETOH, CK, PT, BUN, LIPASE, CREAT, SAMUEL, AST, CBC #### [facility] [address] Automated erythrocytes count in urine sediment (number/area)Ordered By: Basilio Azevedo on 08-11-2023 RBC Auto (Urine sed) [#/Area] 10-19 [HPF] 0-4 [facility] Automated leukocytes count i n urine sediment (number/area)Ordered By: Basilio Azevedo on 08-11-2023 WBC Auto (Urine sed) [#/Area] 3-4 [HPF] 0-4 [facility] Automated monocyte %Ordered By: Basilio Azevedo on 08-11-2023 Monocytes/100 WBC (Bld) 6.9 % Normal . [facility] Comment on above: Performed By: #### L YTES, GLU, ETOH, CK, PT, BUN, LIPASE, CREAT, SAMUEL, AST, CBC #### [facility] [address] Automated neutrophil %Ordere d By: Basilio Azevedo on 08-11-2023 Neutrophils/100 WBC (Bld) 67.8 % Normal . [facility] Comment on above: Performed By: #### L YTES, GLU, ETOH, CK, PT, BUN, LIPASE, CREAT, SAMUEL, AST, CBC #### [facility] [address] Automated urine color determ inationOrdered By: Basilio Azevedo on 08-11-2023 Color (U) Yellow Normal Yellow [facility] Comment on above: Order Comment: Name Collection Type:: Clean-Voided Midstream Performed By: #### U HCG, ADDONUAPLUS, URDS #### [address] Barbiturates [Presence] in U rine by Screen methodOrdered By: Basilio Azevedo on 08-11-2023 Barbiturates Screen Ql (U) Negative Negative [facility] Benzodiazepines Screen Ql (U )Ordered By: Basilio Azevedo on 08-11-2023 Benzodiazepines Ql (U) Negative Negative [facility] Benzoylecgonine [Presence] i n Urine by Screen methodOrdered By: Basilio Azevedo on 08-11-2023 Benzoylecgonine Screen Ql (U) Negative Negative [facility] Bilirubin Test strip Ql (U)O rdered By: Basilio Azevedo on 08-11-2023 Bilirubin Ql (U) Negative Negative [facility] CT abdomen pelvis w conon CT abdomen pelvis w con [facility] [place] [address] [place] [address] CT Scan Report Signed Patient: Chente Gonzalez MR#: [id number] 62 : 1995 Acct:[id number] Age/Sex: 27 / F ADM Date: 08/11/23 Loc: ER Room: Type: [facility] ER Attending Dr: Copies to: Basilio Azevedo DO Ordering Provider: Basilio Azevedo DO Date of Service: 08/11/23 CT/CT chest w con: f ([id number]) CT/CT abdomen pelvis w con: f CT [...] Fercho Huddleston M.D.08/11/2023 8:06 PM Dictation Location: [place] [address] Transcribed By: [facility] 08/11/232005 Dictated By: Fercho Huddleston DO 08/11/231956 Signed By: 08/11/232005 Normal [facility] CT cervical spine wo conon 1 10-12-2022 CT cervical spine wo [facility] [place] [address] [place] [address] CT Scan Report Signed Patient: Chente Gonzalez MR#: [id number] 62 : 1995 Acct:[id number] Age/Sex: 27 / F ADM Date: 08/11/23 Loc: ER Room: Type: [facility] ER Attending Dr: Copies to: Basilio [...] Fercho Huddleston M.D.08/11/2023 7:55 PM Dictation Location: [facility]--05 Transcribed By: [facility] 08/11/231954 Dictated By: Fercho Huddleston DO 08/11/231952 Signed By: 08/11/231954 Normal [facility] CT facial bones wo conon CT facial bones wo con [facility] [place] [address] CT Scan Report Signed Patient: Chente Gonzalez MR#: [id number] 62 : 1995 Acct:[id number] Age/Sex: 27 / F ADM Date: 08/11/23 Loc: ER Room: Type: [facility] ER Attending Dr: Copies to: Basilio [...] 7:57 PM Dictation Location: [facility]--05 Transcribed By: [facility] 08/11/231956 Dictated By: Fercho Huddleston DO 08/11/231954 Signed By: 08/11/231956 [facility] CT head/brain wo conon 08-11 CT head/brain wo con [facility] [place] [address] [place] [address] CT Scan Report Signed Patient: Chente Gonzalez MR#: [id number] [birth year] : 1995 Acct:[id number] Age/Sex: 27 / F ADM Date: 08/11/23 Loc: ER Room: Type: [facility] ER Attending Dr: Copies to: Basilio [...] Fercho Huddleston M.D.08/11/2023 7:53 PM Dictation Location: [place] [address] Transcribed By: [facility] 08/11/231952 Dictated By: Fercho Huddleston DO 08/11/231951 Signed By: 08/11/231952 Normal [facility] Cannabinoids [Presence] in U rine by Screen methodOrdered By: Basilio Azevedo on 08-11-2023 Cannabinoids Screen Ql (U) Positive Negative [facility] Comment on above: These are unconfirme d results and should not be used for legal purposes. Drug Cut-Off Concentration: AMPH 1000 ng/mL THOMAS 200 ng/mL ARTHUR 200 ng/mL COCM 300 ng/mL OP 300 ng/mL PCP 25 ng/mL THC 20 ng/mL Carbon dioxide, total [Moles /volume] in Serum or PlasmaOrdered By: Basilio Azevedo on 08-11-2023 CO2 [Moles/Vol] 17.8 mmol/L Low 21.0-31.0 [facility] Comment on above: Performed By: #### L YTES, GLU, ETOH, CK, PT, BUN, LIPASE, CREAT, SAMUEL, AST, CBC ####[place] [address] Chloride [Moles/volume] in S marline or PlasmaOrdered By: Basilio Azevedo on 08-11-2023 Chloride [Moles/Vol] 108 mmol/L High 98-107 [facility] Comment on above: Performed By: #### L YTES, GLU, ETOH, CK, PT, BUN, LIPASE, CREAT, SAMUEL, AST, CBC ####[place] [address] Complete Blood Count Auto Di ffon 08-11-2023 Mean Corpuscular HGB Conc 35.1 g/dL High 32.0-35.0 [facility] Comment on above: Performed By: #### L YTES, GLU, ETOH, CK, PT, BUN, LIPASE, CREAT, SAMUEL, AST, CBC #### [facility] [address] [place] [address] Monocytes/100 WBC (Bld) 17.99 % Normal 0.00-20.00 [facility] Comment on above: Performed By: #### L YTES, GLU, ETOH, CK, PT, BUN, LIPASE, CREAT, SAMUEL, AST, CBC #### [facility] [address] [place] [address] NRBC% 0.1 /100{WBC} Normal 0-0.5 [facility] Comment on above: Performed By: #### L YTES, GLU, ETOH, CK, PT, BUN, LIPASE, CREAT, SAMUEL, AST, CBC #### [address] Creatine kinase [Enzymatic a ctivity/volume] in Serum or PlasmaOrdered By: Basilio Azevedo on 08-11-2023 CK [Catalytic activity/Vol] 225 U/L High 30-223 [facility] Comment on above: Result Comment: PERF ORMED BY: [address] [address] PATHOLOGIST SPINNING MULE OPERATOR KEMAR DUKE M.D. Performed By: #### L YTES, GLU, ETOH, CK, PT, BUN, LIPASE, CREAT, SAMUEL, AST, CBC ####[place] [address] Creatinineon 08-11-2023 Creatinine Clr Calc Pharmacy 138.27 Normal [facility] Comment on above: Performed By: #### L YTES, GLU, ETOH, CK, PT, BUN, LIPASE, CREAT, SAMUEL, AST, CBC ####[place] [address] GFR/1.73 sq M.predicted MDRD (S/P/Bld) [Vol rate/Area] mL/min/{1.73_m2} Normal [facility] Comment on above: Performed By: #### L YTES, GLU, ETOH, CK, PT, BUN, LIPASE, CREAT, SAMUEL, AST, CBC ####[address] Creatinine [Mass/volume] in Serum or PlasmaOrdered By: Basilio Azevedo on 08-11-2023 Creatinine [Mass/Vol] 0.68 mg/dL Normal 0.60-1.20 [facility] Comment on above: Performed By: #### L YTES, GLU, ETOH, CK, PT, BUN, LIPASE, CREAT, SAMUEL, AST, CBC ####[place] [address] Dipstick and Microscopicon 1 10-12-2022 Appearance (U) Clear Normal Clear [facility] Comment on above: Order Comment: Name Collection Type:: Clean-Voided Midstream Performed By: #### U HCG, ADDONUAPLUS, URDS #### [address] Bacteria,Urine None Seen Normal None Seen [facility] Comment on above: Order Comment: Name Collection Type:: Clean-Voided Midstream Performed By: #### U HCG, ADDONUAPLUS, URDS #### [facility] [address] [place] [address] [place] Bilirubin,Urine Negative Normal Negative [facility] Comment on above: Order Comment: Name Collection Type:: Clean-Voided Midstream Performed By: #### U HCG, ADDONUAPLUS, URDS #### [facility] [address] [place] [address] Glucose Ql (U) Normal Normal Normal [facility] Comment on above: Order Comment: Name Collection Type:: Clean-Voided Midstream Performed By: #### U HCG, ADDONUAPLUS, URDS #### [facility] [address] [place] [address] [place] Hyaline Casts,Urine 0-8 Normal 0-8 [facility] Comment on above: Order Comment: Name Collection Type:: Clean-Voided Midstream Performed By: #### U HCG, ADDONUAPLUS, URDS #### [address] Ketones Ql (U) Trace High Negative [facility] Comment on above: Order Comment: Name Collection Type:: Clean-Voided Midstream Performed By: #### U HCG, ADDONUAPLUS, URDS #### [address] Leukocyte esterase Test strip Ql (U) Negative Normal Negative [facility] Comment on above: Order Comment: Name Collection Type:: Clean-Voided Midstream Performed By: #### U HCG, ADDONUAPLUS, URDS #### [facility] [address] [place] [address] [place] Nitrite,Urine Negative Normal Negative [facility] Comment on above: Order Comment: Name Collection Type:: Clean-Voided Midstream Performed By: #### U HCG, ADDONUAPLUS, URDS #### [place] [address] [place] Occult Blood,Urine 2+ High Negative [facility] Comment on above: Order Comment: Name Collection Type:: Clean-Voided Midstream Performed By: #### U HCG, ADDONUAPLUS, URDS #### [address] [address] [place] RBC,Urine 10-19 High 0-4 [facility] Comment on above: Order Comment: Name Collection Type:: Clean-Voided Midstream Performed By: #### U HCG, ADDONUAPLUS, URDS #### [address] Specificy [place],Urine 1.026 Normal 1.001-1.030 [facility] Comment on above: Order Comment: Name Collection Type:: Clean-Voided Midstream Performed By: #### U HCG, ADDONUAPLUS, URDS #### [address] Squamous Epithelial Cell,Urine 0-1 Normal 0-2 [facility] Comment on above: Order Comment: Name Collection Type:: Clean-Voided Midstream Performed By: #### U HCG, ADDONUAPLUS, URDS #### [address] Urobilinogen,Urine Normal Normal Normal [facility] Comment on above: Order Comment: Name Collection Type:: Clean-Voided Midstream Performed By: #### U HCG, ADDONUAPLUS, URDS #### [address] WBC,Urine 3-4 Normal 0-4 [facility] Comment on above: Order Comment: Name Collection Type:: Clean-Voided Midstream Performed By: #### U HCG, ADDONUAPLUS, URDS #### [place] [address] [place] Drug Screen,Urineon 12-15-20 23 Amphetamine Screen,Urine Negative Normal Negative [facility] Comment on above: Performed By: #### U HCG, ADDONUAPLUS, URDS #### [address] Barbiturate Screen,Urine Negative Normal Negative [facility] Comment on above: Performed By: #### U HCG, ADDONUAPLUS, URDS #### [address] Benzodiazepines Screen,Urine Negative Normal Negative [facility] Comment on above: Performed By: #### U HCG, ADDONUAPLUS, URDS #### [address] Cannabinoid Screen,Urine Positive High Negative [facility] Comment on above: Result Comment: Thes e are unconfirmed results and should not be used for legal purposes. Drug Cut-Off Concentration: AMPH 1000 ng/mL THOMAS 200 ng/mL ARTHUR 200 ng/mL COCM 300 ng/mL OP 300 ng/mL PCP 25 ng/mL THC 20 ng/mL PERFORMED BY: [place] [address] PATHOLOGIST SPINNING MULE OPERATOR KEMAR DUKE M.D. Performed By: #### U HCG, ADDONUAPLUS, URDS #### [address] Cocaine Screen,Urine Negative Normal Negative [facility] Comment on above: Performed By: #### U HCG, ADDONUAPLUS, URDS #### [address] Opiate Screen,Urine Negative Normal Negative [facility] Comment on above: Performed By: #### U HCG, ADDONUAPLUS, URDS #### [address] Phencyclidine Screen,Urine Negative Normal Negative [facility] Comment on above: Performed By: #### U HCG, ADDONUAPLUS, URDS #### [address] ECG 12 lead ECGon 08-11-2023 ECG 12 lead ECG [facility] [place] [address] Electrocardiograph Report Signed Patient: Chente Gonzalez MR#: [id number] 62 : 1995 Acct:[id number] Age/Sex: 27 / F ADM Date: 08/11/23 Loc: ER Room: Type: [facility] ER Attending Dr: Ordering Provider: Basilio [...] Anterior leads Confirmed by BASILIO AZEVEDO DO ([id number]) on 08/12/2023 1:42:26 AM Referred By: Electronically Signed By:BASILIO AZEVEDO DO Transcribed By: MUS Signed By Basilio Azevedo DO 08/12 0142 Normal [facility] Erythrocyte distribution wid th [Ratio] by Automated countOrdered By: Basilio Azevedo on 08-11-2023 Erythrocyte distribution width (RBC) [Ratio] 12.9 % Normal 11.9-15.3 [facility] Comment on above: Performed By: #### L YTES, GLU, ETOH, CK, PT, BUN, LIPASE, CREAT, SAMUEL, AST, CBC #### [facility] [address] [place] [address] [place] Erythrocytes [#/volume] in B lood by Automated countOrdered By: Basilio Azevedo on 08-11-2023 RBC (Bld) [#/Vol] 4.66 10*6/uL Normal 3.60-5.00 [facility] Comment on above: Performed By: #### L YTES, GLU, ETOH, CK, PT, BUN, LIPASE, CREAT, SAMUEL, AST, CBC #### [facility] [address] [place] [id number] [place] Ethanol [Mass/volume] in Ser um or PlasmaOrdered By: Basilio Azevedo on 08-11-2023 Ethanol [Mass/Vol] mg/dL Normal [facility] Comment on above: Performed By: #### L YTES, GLU, ETOH, CK, PT, BUN, LIPASE, CREAT, SAMUEL, AST, CBC #### [facility] [address] [place] [id number] [place] Ethanol [Mass/Vol] TNP [facility] Comment on above: Test not performed Ethyl Alcohol Profileon 07-28 Percent Ethanol Not performed Normal [facility] Comment on above: Result Comment: PERF ORMED BY: [facility] [address] [place] [address] PATHOLOGIST SPINNING MULE OPERATOR KEMAR DUKE M.D. Performed By: #### L YTES, GLU, ETOH, CK, PT, BUN, LIPASE, CREAT, SAMUEL, AST, CBC #### [facility] [address] [place] [id number] [place] Glucose [Mass/volume] in Ser um or PlasmaOrdered By: Basilio Azevedo on 08-11-2023 Glucose [Mass/Vol] 109 mg/dL High 70-100 [facility] Comment on above: ADA recommended refe rence rangeRandom Glucose Reference Range is dependent on time and content of last meal. Glucose of more than 200 mg/dL in a nonstressed, ambulatory subject supports the diagnosis of Diabetes Mellitus. Result Comment: [place] Glucose Reference Range is dependent on time and content of last meal. Glucose of more than 200 mg/dL in a nonstressed, ambulatory subject supports the diagnosis of Diabetes Mellitus. ADA recommended reference range Performed By: #### L YTES, GLU, ETOH, CK, PT, BUN, LIPASE, CREAT, SAMUEL, AST, CBC ####[facility] [place] [address] [facility] HCG ( test) IA.rapi d Ql (U)Ordered By: Basilio Azevedo on 08-11-2023 HCG ( test) Ql (U) Negative [facility] HCG,Urineon 08-11-2023 Beta HCG ( test) Ql (U) Negative Normal [facility] Comment on above: Order Comment: Name Collection Type:: Clean-Voided Midstream Result Comment: PERF ORMED BY: [address] [place] [address] PATHOLOGIST SPINNING MULE OPERATOR KEMAR DUKE M.D. Performed By: #### U HCG, ADDONUAPLUS, URDS #### [facility] [address] [place], [place] [id number] [facility] Hematocrit [Volume Fraction] of Blood by Automated countOrdered By: Basilio Azevedo on 08-11-2023 Hematocrit (Bld) [Volume fraction] 40.4 % Normal 34.0-46.4 [facility] Comment on above: Performed By: #### L YTES, GLU, ETOH, CK, PT, BUN, LIPASE, CREAT, SAMUEL, AST, CBC #### [address] Hemoglobin [Mass/volume] in BloodOrdered By: Basilio Azevedo on 08-11-2023 Hemoglobin (Bld) [Mass/Vol] 14.2 g/dL Normal 11.8-15.4 [facility] Comment on above: Performed By: #### L YTES, GLU, ETOH, CK, PT, BUN, LIPASE, CREAT, SAMUEL, AST, CBC #### [address] INR in Platelet poor plasma by Coagulation assayOrdered By: Basilio Azevedo on 08-11-2023 INR Coag (PPP) [Relative time] 1.0 {INR} Normal [facility] Comment on above: INR Therapeutic [...] heart valves: 3 - 4.5 PERFORMED BY: [place] [address] PATHOLOGIST SPINNING MULE OPERATOR KEMAR DUKE M.D. Performed By: #### L YTES, GLU, ETOH, CK, PT, BUN, LIPASE, CREAT, SAMUEL, AST, CBC ####[facility] [id number] Ketones Auto test strip (U) [Mass/Vol]Ordered By: Basilio Azevedo on 08-11-2023 Ketones (U) [Mass/Vol] Trace Negative [facility] - UrinalysisOrder ed By: Basilio Azevedo on 08-11-2023 Hyaline casts LM Ql (Urine sed) 0-8 [LPF] 0-8 [facility] Leukocytes [#/volume] correc sonja for nucleated erythrocytes in Blood by Automated counOrdered By: Basilio Azevedo on 08-11-2023 WBC corrected for nucl RBC Auto (Bld) [#/Vol] 7.9 10*3/uL 3.8-11.6 [facility] Leukocytes [#/volume] in Blo od by Automated countOrdered By: Basilio Azevedo on 08-11-2023 WBC (Bld) [#/Vol] 7.9 10*3/uL Normal 3.8-11.6 [facility] Comment on above: Performed By: #### L YTES, GLU, ETOH, CK, PT, BUN, LIPASE, CREAT, SAMUEL, AST, CBC #### [facility] [address] Lipase [Enzymatic activity/v olume] in Serum or PlasmaOrdered By: Basilio Azevedo on 08-11-2023 Lipase [Catalytic activity/Vol] 13.0 U/L Normal 11.0-82.0 [facility] Comment on above: Result Comment: PERF ORMED BY: [facility] [address] [place] [address] PATHOLOGIST SPINNING MULE OPERATOR KEMAR DUKE M.D. Performed By: #### L YTES, GLU, ETOH, CK, PT, BUN, LIPASE, CREAT, SAMUEL, AST, CBC ####[facility] [address] Lymphocytes [#/volume] in Bl ood by Automated countOrdered By: Basilio Azevedo on 08-11-2023 Lymphocytes (Bld) [#/Vol] 1.8 10*3/uL Normal 1.00-4.8 [facility] Comment on above: Performed By: #### L YTES, GLU, ETOH, CK, PT, BUN, LIPASE, CREAT, SAMUEL, AST, CBC #### [facility] [address] [place] [address] [place] Lymphocytes/100 leukocytes i n Blood by Automated countOrdered By: Basilio Azevedo on 08-11-2023 Lymphocytes/100 WBC (Bld) 23.1 % Normal . [facility] Comment on above: Performed By: #### L YTES, GLU, ETOH, CK, PT, BUN, LIPASE, CREAT, SAMUEL, AST, CBC #### [facility] [address] MCH [Entitic mass] by Automa sonja countOrdered By: Basilio Azevedo on 08-11-2023 MCH (RBC) [Entitic mass] 30.4 pg Normal 24.7-34.3 [facility] Comment on above: Performed By: #### L YTES, GLU, ETOH, CK, PT, BUN, LIPASE, CREAT, SAMUEL, AST, CBC #### [address] MCHC Auto (RBC) [Mass/Vol]Or dered By: Basilio Azevedo on 08-11-2023 MCHC (RBC) [Mass/Vol] 35.1 g/dL 32.0-35.0 [facility] MCV [Entitic volume] by Auto mated countOrdered By: Basilio Azevedo on 08-11-2023 MCV (RBC) [Entitic vol] 86.7 fL Normal 80-100 [facility] Comment on above: Performed By: #### L YTES, GLU, ETOH, CK, PT, BUN, LIPASE, CREAT, SAMUEL, AST, CBC #### [facility] [address] Monocyte distribution width [Entitic volume] in Blood by AutomatedOrdered By: Basilio Azevedo on 08-11-2023 Monocyte distribution width Auto (Bld) [Entitic vol] 17.99 % 0.00-20.00 [facility] Neutrophils [#/volume] in Bl ood by Automated countOrdered By: Basilio Azevedo on 08-11-2023 Neutrophils (Bld) [#/Vol] 5.4 10*3/uL Normal 1.8-7.7 [facility] Comment on above: Performed By: #### L YTES, GLU, ETOH, CK, PT, BUN, LIPASE, CREAT, SAMUEL, AST, CBC #### [facility] [address] Nitrite Test strip Ql (U)Ord ered By: Basilio Azevedo on 08-11-2023 Nitrite Ql (U) Negative Negative [facility] No Panel InformationOrdered By: Basilio Azevedo on 08-11-2023 Estimated GFR (CKD-EPI) > 60.0 mL/Min [facility] Creatinine Clearance (Chem 138.27 [facility] Nucleated erythrocytes [Pres ence] in Blood by Automated countOrdered By: Basilio Azevedo on 08-11-2023 Nucleated RBC Auto Ql (Bld) 0.1 /100{WBC} 0-0.5 [facility] Opiates [Presence] in Urine by Screen methodOrdered By: Basilio Azevedo on 08-11-2023 Opiates Screen Ql (U) Negative Negative [facility] Phencyclidine Screen Ql (U)O rdered By: Basilio Azevedo on 08-11-2023 Phencyclidine Ql (U) Negative Negative [facility] Platelet mean volume [Entiti c volume] in Blood by Automated countOrdered By: Basilio Azevedo on 08-11-2023 Platelet mean volume (Bld) [Entitic vol] 7.7 fL Normal 6.3-10.7 [facility] Comment on above: Performed By: #### L YTES, GLU, ETOH, CK, PT, BUN, LIPASE, CREAT, SAMUEL, AST, CBC #### [facility] [address] [place] [address] [place] Platelets [#/volume] in Bloo d by Automated countOrdered By: Basilio Azevedo on 08-11-2023 Platelets (Bld) [#/Vol] 307 10*3/uL Normal 150-450 [facility] Comment on above: Performed By: #### L YTES, GLU, ETOH, CK, PT, BUN, LIPASE, CREAT, SAMUEL, AST, CBC #### [facility] [address] Potassium [Moles/volume] in Serum or PlasmaOrdered By: Basilio Azevedo on 08-11-2023 Potassium [Moles/Vol] 3.3 mmol/L Low 3.5-5.1 [facility] Comment on above: Performed By: #### L YTES, GLU, ETOH, CK, PT, BUN, LIPASE, CREAT, SAMUEL, AST, CBC ####[facility] Prothrombin time (PT)Ordered By: Basilio Azevedo on 08-11-2023 PT Coag (PPP) [Time] 12.1 s Normal 9.0-12.9 [facility] Comment on above: A hematocrit value g reater than 55% may lead to inaccurate results in coagulation testing. Patients having hematocrit values >55% require a special collection tube for coagulation studies. Please contact the laboratory at [phone] for redraw instructions. Result Comment: A he matocrit value greater than 55% may lead to inaccurate results in coagulation testing. Patients having hematocrit values >55% require a special collection tube for coagulation studies. Please contact the laboratory at [phone] for redraw instructions. Performed By: #### L YTES, GLU, ETOH, CK, PT, BUN, LIPASE, CREAT, SAMUEL, AST, CBC ####[facility] Serum or plasma anion gap de terminationOrdered By: Basilio Azevedo on 08-11-2023 Anion gap [Moles/Vol] 15.5 mmol/L High 6.0-15.0 [facility] Comment on above: Performed By: #### L YTES, GLU, ETOH, CK, PT, BUN, LIPASE, CREAT, SAMUEL, AST, CBC ####[facility] Sodium [Moles/volume] in Ser um or PlasmaOrdered By: Basilio Azevedo on 08-11-2023 Sodium [Moles/Vol] 138 mmol/L Normal 136-145 [facility] Comment on above: Performed By: #### L YTES, GLU, ETOH, CK, PT, BUN, LIPASE, CREAT, SAMUEL, AST, CBC ####[place] [address] [place] [id number] [facility] Specific gravity Auto test s trip (U) [Rel density]Ordered By: Basilio Azevedo on 08-11-2023 Specific gravity (U) [Rel density] 1.026 1.001-1.030 [facility] Squamous epithelial cells de tection in urine sediment by light microscopyOrdered By: Basilio Azevedo on 08-11-2023 Epithelial cells.squamous LM Ql (Urine sed) 0-1 [HPF] 0-2 [facility] Type and Screenon 08-11-2023 ABO and Rh group Nom (Bld) Blood group A Rh(D) negative Normal [facility] Comment on above: Result Comment: PERF ORMED BY: [facility] [address] [facility] [place] [place] [address] PATHOLOGIST [employer]IN[employer]ING [employer]LE OPERATOR KEMAR DUKE M.D. Urea nitrogen [Mass/volume] in Serum or PlasmaOrdered By: Basiilo Azevedo on 08-11-2023 Urea nitrogen [Mass/Vol] 11 mg/dL Normal 7-25 [facility] Comment on above: Performed By: #### L YTES, GLU, ETOH, CK, PT, BUN, LIPASE, CREAT, SAMUEL, AST, CBC ####[place] [address] [place] [id number] [facility] Urine bacteria detection by automated methodOrdered By: Basilio Azevedo on 08-11-2023 Bacteria Auto Ql (U) None seen None Seen [facility] Urine clarity by refractomet ry automatedOrdered By: Basilio Azevedo on 08-11-2023 Clarity Refractometry automated (U) Clear Clear [facility] Urine glucose measurement by automated test strip (mass/volume)Ordered By: Basilio Azevedo on 08-11-2023 Glucose Auto test strip (U) [Mass/Vol] Normal mg/dL Normal [facility] Urine hemoglobin detection b y automated test stripOrdered By: Basilio Azevedo on 08-11-2023 Hemoglobin Auto test strip Ql (U) 2+ Negative [facility] Urine leukocyte esterase det ection by automated test stripOrdered By: Basilio Azevedo on 08-11-2023 Leukocyte esterase Auto test strip Ql (U) Negative Negative [facility] Urine pH measurement by auto mated test stripOrdered By: Basilio Azevedo on 08-11-2023 pH (U) 6.5 [pH] Normal 5.0-9.0 [facility] Comment on above: Order Comment: Name Collection Type:: Clean-Voided Midstream Performed By: #### U HCG, ADDONUAPLUS, URDS #### [facility] [address] [place] [address] Urine protein measurement by automated test strip (mass/volume)Ordered By: aBsilio Azevedo on 08-11-2023 Protein (U) [Mass/Vol] 30 mg/dL High Negative [facility] Comment on above: Order Comment: Name Collection Type:: Clean-Voided Midstream Performed By: #### U HCG, ADDONUAPLUS, URDS #### [facility] [address] [place] [address] Urobilinogen Auto test strip (U) [Mass/Vol]Ordered By: Basilio Azevedo on 08-11-2023 Urobilinogen (U) [Mass/Vol] Normal mg/dL Normal [facility] XR chest 1V portableon 08-11 XR chest 1V portable [facility] [place] [address] XRay Report Signed Patient: Chente Gonzalez MR#: [id number] 62 : 1995 Acct:[id number] Age/Sex: 27 / F ADM Date: 08/11/23 Loc: ER Room: Type: [facility] ER Attending Dr: Copies to: Basilio Azevedo DO Ordering Provider: Basilio Azevedo DO Date of Service: 08/11/23 XR/XR chest 1V portable: TRAUMATIC INJURY ([id number]) XR/XR knee LT 2V: TRAUMATIC INJURY ([id number]) XR/XR hand RT min 3V*: TRAUMATIC INJURY [...] Fercho Huddleston M.D.08/11/2023 8:08 PM Dictation Location: [place] [address] Transcribed By: [facility] 08/11/232007 Dictated By: Fercho Huddleston DO 08/11/232005 Signed By: 08/11/232007 Normal [facility] BILIRUBIN CONJUGATED (DIRECT )on 03-03-2022 BILI, CONJUGATED 0.3 mg/dL Critically high 0.0-0.2 [facility] Comment on above: Performed By: #### D FERNANDEZ #### [facility] [address] [place] [address] Dr. Yaritza Bojorquez CBC AUTO DIFFon 03-03-2022 BASO # 0.1 103/ul Normal 0.0-0.1 [facility] Comment on above: Performed By: #### C BC #### [facility] [address] [place] [address] Dr. Yaritza Bojorquez Basophils/100 WBC (Bld) 0.5 % Normal 0.2-2.0 [facility] Comment on above: Performed By: #### C BC #### [facility] [address] [place] [address] Dr. Yaritza Bojorquez EO # 0.0 103/ul Normal 0.0-0.7 [facility] Comment on above: Performed By: #### C BC #### [facility] [address] [place] [address] Dr. Yaritza Bojorquez Eosinophils/100 WBC (Bld) 0.1 % Critically low 0.9-7.0 [facility] Comment on above: Performed By: #### C BC #### [facility] [address] [place] [address] Dr. Yaritza Bojorquez Erythrocyte distribution width (RBC) [Ratio] 12.1 % Normal 11.0-15.0 [facility] Comment on above: Performed By: #### C BC #### [facility] [address] [place] [address] Dr. Yaritza Bojorquez Hematocrit (Bld) [Volume fraction] 45.0 % Normal 36.0-48.0 [facility] Comment on above: Performed By: #### C BC #### [facility] [address] [place] [address] Dr. Yaritza Bojorquez Hemoglobin (Bld) [Mass/Vol] 16.5 g/dL Critically high 12.0-16.0 [facility] Comment on above: Performed By: #### C BC #### [facility] [address] [place] [address] Dr. Yaritza Bojorquez IG # 0.05 10e3/ul Critically high 0.00-0.03 [facility] Comment on above: Performed By: #### C BC #### [facility] [address] [place] [address] Dr. Yaritza Bojorquez IG % 0.3 % Normal 0.0-0.5 [facility] Comment on above: Performed By: #### C BC #### [facility] [address] [place] [address] Dr. Yaritza Bojorquez LYMPH # 3.2 103/ul Normal 1.2-3.8 [facility] Comment on above: Performed By: #### C BC #### [facility] [address] [place] [address] Dr. Yaritza Bojorquez Lymphocytes/100 WBC (Bld) 21.6 % Normal 20.5-60.0 [facility] Comment on above: Performed By: #### C BC #### [facility] [address] [place] [address] Dr. Yaritza Bojorquez MANUAL DIFF REQ NO Normal [facility] Comment on above: Performed By: #### C BC #### [facility] [address] [place] [address] Dr. Yaritza Bojorquez MCH (RBC) [Entitic mass] 30.7 pg Normal 26.7-34.0 [facility] Comment on above: Performed By: #### C BC #### [facility] [address] [place] [address] [address] Yaritza Bojorquez MCHC (RBC) [Mass/Vol] 36.7 g/dL Critically high 29.9-35.2 [facility] Comment on above: Performed By: #### C BC #### [facility] [id number] Yaritza Bojorquez MCV (RBC) [Entitic vol] 83.8 fL Normal 81.0-99.0 [facility] Comment on above: Performed By: #### C BC #### [facility] [address] [place] [address] [address] Yaritza Bojorquez MONO # 0.8 103/ul Normal 0.3-0.8 [facility] Comment on above: Performed By: #### C BC #### [facility] [address] [place] [address] Dr. Yaritza Bojorquez Monocytes/100 WBC (Bld) 5.3 % Normal 1.7-12.0 [facility] Comment on above: Performed By: #### C BC #### [facility] [address] [place] [address] Dr. Yaritza Bojorquez NEUT # 10.5 103/ul Critically high 1.4-6.5 [facility] Comment on above: Performed By: #### C BC #### [facility] [address] [place], [place] [id number] Dr. Yaritza Bojorquez Neutrophils/100 WBC (Bld) 72.2 % Normal 43.0-75.0 [facility] Comment on above: Performed By: #### C BC #### [facility] [address] [place], [place] [id number] Dr. Yaritza Bojorquez Platelet mean volume (Bld) [Entitic vol] 10.0 fL Normal 9.5-13.5 [facility] Comment on above: Performed By: #### C BC #### [facility] [address] [place], [place] [id number] Dr. Yaritza Bojorquez PLT 450 103/ul Normal 150-450 [facility] Comment on above: Performed By: #### C BC #### [facility] [address] [place] [address] Dr. Yaritza Bojorquez RBC 5.37 106/ul Normal 4.20-5.40 [facility] Comment on above: Performed By: #### C BC #### [facility] [address] [place] [address] Dr. Yaritza Bojorquez WBC 14.6 103/ul Critically high 4.0-11.0 [facility] Comment on above: Performed By: #### C BC #### [facility] [address] [place] [address] Dr. Yaritza Bojorquez CULTURE URINEon 03-03-2022 CULTURE URINE Culture Observations : LIGHT GROWTH OF MIXED GENITAL KRYSTAL. NO POTENTIAL PATHOGENS SEEN. Normal [facility] Comment on above: Performed By: #### U RCX #### [facility] [address] [place] [address] Dr. Yaritza Bojorquez ER URINE PROFILEon 2 Bilirubin Ql (U) Negative Normal NEGATIVE [facility] Comment on above: Performed By: #### Sandoval URIBE UMRAJANRO #### [facility] [address] [place] [address] Dr. Yaritza Bojorquez Clarity (U) CLEAR Normal CLEAR [facility] Comment on above: Performed By: #### BABAK MAERO #### [facility] [address] [place] [address] Dr. Yaritza Bojorquez Color (U) DK. YELLOW Normal YELLOW [facility] Comment on above: Performed By: #### BABAK MAERO #### [facility] [address] [place] [address] Dr. Yaritza Bojorquez ERUAHD A micrscopic examina tion will be performed if indicated. Normal [facility] Comment on above: Performed By: #### BABAK MAERO #### [facility] [address] [place] [address] Dr. Yaritza Bojorquez Glucose Ql (U) Negative Normal NEGATIVE [facility] Comment on above: Performed By: #### Sandoval URIBE UMRAJANRO #### [facility] [address] [place] [address] Dr. Yaritza Bojorquez Hemoglobin Ql (U) Negative Normal NEGATIVE [facility] Comment on above: Performed By: #### E JOJO, UMICRO #### [facility] [address] [place] [address] Dr. Yaritza Bojorquez Ketones Ql (U) >=80 Abnormal NEGATIVE [facility] Comment on above: Performed By: #### E JOJO, UMICRO #### [facility] [address] [place] [address] Dr. Yaritza Bojorquez LEUKOCYTES TRACE Abnormal NEGATIVE [facility] Comment on above: Performed By: #### E JOJO, UMICRO #### [facility] [address] [place] [address] Dr. Yaritza Bojorquez Nitrite Ql (U) Negative Normal NEGATIVE [facility] Comment on above: Performed By: #### E JOJO UMICRO #### [facility] [address] [place] [address] Dr. Yaritza Bojorquez pH (U) 6.5 [pH] Normal 5-9 [facility] Comment on above: Performed By: #### Sandoval URIBE UMICRO #### [facility] [address] [place] [address] Dr. Yaritza Bojorquez Protein (U) [Mass/Vol] 100 mg/dL Abnormal NEGAT TORSTEN/ TRACE [facility] Comment on above: Performed By: #### Sandoval URIBE UMICRO #### [facility] [address] [place] [address] Dr. Yaritza Boojrquez SPEC GRAVITY 1.025 Normal 1.005-<=1.0 25 [facility] Comment on above: Performed By: #### Sandoval URIBE UMICRO #### [facility] [address] [place] [address] Dr. Yaritza Bojorquez UR MICRO IND INDICATED Normal [facility] Comment on above: Performed By: #### E JOJO, UMICRO #### [facility] [address] [place] [address] Dr. Yaritza Bojorquez Urobilinogen Qn (U) 4 {Emir'U}/dL Abnormal 0.2 - 1.0 [facility] Comment on above: Performed By: #### E JOJOALBARAJANMARK #### [facility] [address] [place] [address] [address] Yaritza Bojorquez PROF 14(COMP METB)on 022 Albumin [Mass/Vol] 4.5 g/dL Normal 3.4-5.0 [facility] Comment on above: Performed By: #### C MP #### [facility] [address] [place] [address] Dr. Yaritza Bojorquez Albumin/Globulin [Mass ratio] 1.2 {ratio} Normal [facility] Comment on above: Performed By: #### C MP #### [facility] [address] [place] [address] Dr. Yaritza Bojorquez ALP [Catalytic activity/Vol] 48 U/L Normal 46-116 [facility] Comment on above: Performed By: #### C MP #### [facility] [address] [place] [address] Dr. Yaritza Bojorquez ALT [Catalytic activity/Vol] 25 U/L Normal 14-59 [facility] Comment on above: Performed By: #### C MP #### [facility] [address] [place] [address] Dr. Yaritza Bojorquez Anion gap [Moles/Vol] 17.8 mmol/L Normal [facility] Comment on above: Performed By: #### C MP #### [facility] [address] [place] [address] Dr. Yaritza Bojorquez AST [Catalytic activity/Vol] 11 U/L Critically low 15-37 [facility] Comment on above: Performed By: #### C MP #### [facility] [address] [place] [address] Dr. Yaritza Bojorquez Bilirubin [Mass/Vol] 1.4 mg/dL Critically high 0.2-1.0 [facility] Comment on above: Performed By: #### C MP #### [facility] [address] [place] [address] Dr. Yaritza Bojorquez Calcium [Mass/Vol] 9.3 mg/dL Normal 8.5-10.1 [facility] Comment on above: Performed By: #### C MP #### [facility] [address] [place] [address] [address] Yaritza Bojorquez Chloride [Moles/Vol] 98 mmol/L Normal 98-107 [facility] Comment on above: Performed By: #### C MP #### [facility] [address] [place] [address] [address] Yaritza Bojorquez CO2 [Moles/Vol] 19.1 mmol/L Critically low 21.0-32.0 [facility] Comment on above: Performed By: #### C MP #### [facility] [address] [place] [address] [address] Yaritza Bojorquez Creatinine [Mass/Vol] 0.95 mg/dL Normal 0.55-1.02 [facility] Comment on above: Performed By: #### C MP #### [facility] [address] [place] [address] [address] Yaritza Bojorquez EGFR-AF SALVADOREAN >60 Normal >=60 [facility] Comment on above: Performed By: #### C MP #### [facility] [address] [place] [address] [address] Yaritza Bojorquez EGFR-NON AF SALVADOREAN >60 Normal >=60 [facility] Comment on above: Performed By: #### C MP #### [facility] [address] [place] [address] [address] Yaritza Bojorquez Globulin (S) [Mass/Vol] 3.6 g/dL Normal [facility] Comment on above: Performed By: #### C MP #### [facility] [address] [place] [address] [address] Yaritza Bojorquez Glucose [Mass/Vol] 138 mg/dL Critically high 74-106 T [facility] Comment on above: Performed By: #### C MP #### [facility] [address] [place] [address] [address] Yaritza Bojorquez Potassium [Moles/Vol] 2.9 mmol/L Critically low 3.5-5.1 [facility] Comment on above: Performed By: #### C MP #### [facility] [address] [place] [address] Dr. Yaritza Bojorquez Protein [Mass/Vol] 8.1 g/dL Normal 6.4-8.2 [facility] Comment on above: Performed By: #### C MP #### [facility] [address] [place] [address] Dr. Yaritza Bojorquez Sodium [Moles/Vol] 132 mmol/L Critically low 136-145 Th [facility] Comment on above: Performed By: #### C MP #### [facility] [address] [place] [address] Dr. Yaritza Bojorquez Urea nitrogen [Mass/Vol] 8.0 mg/dL Normal 7.0-18.0 [facility] Comment on above: Performed By: #### C MP #### [facility] [address] [place] [address] Dr. Yaritza Bojorquez Urea nitrogen/Creatinine [Mass ratio] 8.4 mg/mg Normal [facility] Comment on above: Performed By: #### C MP #### [facility] [address] [place] [address] Dr. Yaritza Bojorquez URINE MICROSCOPIC ONLYon BACTERIA MODERATE Abnormal NONE SEEN [facility] Comment on above: Performed By: #### BABAK MAERO #### [facility] [address] [place] [address] Dr. Yaritza Bojorquez Bacteria identified Cx Nom (U) INDICATED Normal [facility] Comment on above: Performed By: #### Sandoval URIBE UMICRO #### [facility] [address] [place] [address] Dr. Yaritza Bojorquez CAST NONE SEEN Normal NONE SEEN [facility] Comment on above: Performed By: #### Sandoval URIBE UMICRO #### [facility] [address] [place] [address] Dr. Yaritza Bojorquez Crystals LM Nom (Urine sed) NONE SEEN Normal NONE SEEN [facility] Comment on above: Performed By: #### Sandoval URIBE UMICRO #### [facility] [address] [place] [address] Dr. Yaritza Bojorquez Epithelial cells LM Ql (Urine sed) MANY Abnormal NONE SEEN /RARE [facility] Comment on above: Performed By: #### E RUR, UMICRO #### [facility] [address] [place] [address] [address] Yaritza Bojorquez MUCOUS SMALL Abnormal NONE SEEN [facility] Comment on above: Performed By: #### E RUR, UMICRO #### [facility] [address] [place] [address] [address] Yarizta Bojorquez RBC 2-5 Abnormal 0-2 [facility] Comment on above: Performed By: #### E RUR, UMICRO #### [facility] [address] [place] [address] [address] Yaritza Bojorquez WBC 5-10 Abnormal NONE SEEN [facility] Comment on above: Performed By: #### E RUR, UMICRO #### [facility] [address] [place] [address] [address] Yaritza Bojorquez XR ABD FLAT UP_PA [...] MACK SAMUELS Date: 2022-03-03 07:46 Normal [facility] Covid-19 PCR (CVDTBH)on 07-29 SARS-CoV-2 (COVID-19) RNA KOLE+probe Ql (Unsp spec) Not detected Normal NOT DETECTED [facility] Comment on above: Result Comment: This test is not yet approved or cleared by the [place] FDA. When there are no FDA-approved or cleared tests available, and other criteria are met, FDA can make tests available under an emergency access mechanism called an Emergency Use Authorization (EUA). The EUA for this test is supported by the [employer] of Health and Human Service's (HHS's) declaration [...] consistent with SARS-CoV-2. Performed By: #### [facility] #### [facility] [address] [place] [address] Dr. Yaritza Bojorquez Provider Note - ED [...] No Current Medications SIGNIFICANT EVENTS: Immunizations Description:Tdap OIL PIPELINE DISPATCHER: Is : no(1) Is : no(1) RESULTS/VITAL SIGNS VITAL SIGNS: T PRBP SpO2O2(LPM) %FiO2 Method 22-Jun-2019 18:54:[id number] 99 room air, no respiratory support 22-Jun-2019 18:07:[id number] 97 room air, no respiratory support MEDICAL [...] - Final Verification: completed Procedure performed by: fl Student Services Director(s): none Findings: grossly normal anatomy Specimen: no [...] From Triage - ED 22-Jun-2019 18:07 Normal [facility] Risk Screen - Adult Emergenc yon 06-22-2019 Risk Screen - Adult Emergency Preferred Language: Preferred Language: Preferred Language for Discussing Health Care (patient/designee)Malawian Advanced Directives: Advance Directive/DNRno Family Violence Adult: Abuse Screen: Are you or have you been threatened or abused physically, emotionally, or sexually by anyoneno Learning Assessment (Patient): Learning Assessment (Patient): Patient is Able to be Assessed for Learningyes Factors Influencing Readiness to Learnacuteness of illness Factors that Impact Ability to Learnnone Devices/Methods Used to Communicatenone Learning Preferencesaudio Cultural Considerationsnone Developmental Considerationsnone Mandaeism Considerationsnone Learning Assessment (Other Learner): Learning Assessment (Other Learner): Other learner availableno Pressure Injury/TB/Substance: Pressure Injury: Pressure Injury Present on Admissionno Do you have a coughno Substance Use Current or Former Historynever: Cigarette/Tobacco, e-Cigarette/Vaping, Alcohol, Street Drugs Admission Risk Screen: Significant IndicatorsComplete CAGE: CAGE: Is this an injured patient at a Trauma Center ([facility]/[place]): yes C: Have you ever felt you needed to Cut down on your drinking: no A: Have people Annoyed you by criticizing your drinking: no G: Have you ever felt Guilty about drinking: no E: Have you ever felt you needed a drink first thing in the morning (Eye-groundman) to steady your nerves or to get rid of hangover: no Electronic Signatures: Mehdi Chaney) (Signed 26-Oct-2019 18:11) Authored: Preferred Language, Advanced Directives, Family Violence Adult, Learning Assessment (Patient), Learning Assessment (Other Learner), Pressure Injury/TB/Substance, CAGE Last Updated: 22-Jun-2019 18:11 by Mehdi Chaney) [facility] Triage - EDon 06-22-2019 Triage - [...] Accompanied By: self Language: Spoken Language Preferred: Malawian PRIMARY ASSESSMENT CHENTE GONZALEZ's primary assessment is [...] 22-Jun-2019 18:40 by Nitin Singer (AYALA) Normal [facility] Vital Signs Date Time Vital Sign Value Performing Clinician Facility 12-23-2024 13:51-0400 Body mass index (BMI) [Ratio] 31.35 kg/m2 BasharJobs DO Work Phone: [facility] 12-23-2024 13:51-0400 Body weight 85.46 kg BasharJobs DO Work Phone: [facility] 12-23-2024 13:51-0400 Diastolic blood pressure 78 mm[Hg] TyrellWebeeo [employer]! Work Phone: [facility] 12-23-2024 13:51-0400 Systolic blood pressure 118 mm[Hg] TyrellWebeeo DO Work Phone: [facility] 08-11-2023 22:07-0500 Diastolic blood pressure 64 mm[Hg] PHYSICIAN NO [facility] 08-11-2023 22:07-0500 Heart rate 71 /min PHYSICIAN NO [facility] 08-11-2023 22:07-0500 Respiratory rate 18 /min PHYSICIAN NO [facility] 08-11-2023 22:07-0500 SaO2% (BldA) [Mass fraction] 99 % PHYSICIAN NO [facility] 08-11-2023 22:07-0500 Systolic blood pressure 126 mm[Hg] PHYSICIAN NO [facility] 08-11-2023 19:17-0500 Body height 170.18 cm PHYSICIAN NO [facility] 08-11-2023 19:17-0500 Body weight 80.73 kg PHYSICIAN NO [facility] Encounters Encounter Date Encounter Type Care [...] 08-11-2023 Emergency department patient visit PHYSICIAN NO [facility] Work Phone: Start: 03-03-2022 End: 03-03-[address] DOCTOR BARBOZA Facility:[facility]1 Start: 08-23-2021 End: 08-23-2021 ambulatory ADEOLA COHEN Facility:[facility]1 Procedures Date Procedure Procedure Detail Performing Clinician Start: 08-11-2023 Antibody screen Basilio rodriguez Comment on above: Result Comment: PERF ORMED BY: [facility] [address] [place] [address] PATHOLOGIST SPINNING MULE OPERATOR KEMAR DUKE M.D. Start: 08-11-2023 Plain X-ray [...] AM EDT Initial [facility] [address] [place] [address] [facility] Start: 01-10-2025 End: 01-10-2025 Professional / ancillary services management 01/10/2025 9:00 AM EDT Ancillary Procedure [facility] [address] [facility] [place] [place] [address] [facility] Patient Education Head injury in adults Blunt Abdominal Trauma ED Blunt Chest Trauma ED [facility] Work Phone: Patient referral [facility] Work Phone: Immunizations Immunization Date Immunization Notes Care Provider Fa [facility] 08-11-2023 tetanus toxoid, redu christie diphtheria toxoid, and acellular pertussis vaccine, adsorbed PHYSICIAN NO [facility] Payers Date Payer Category Payer Medicaid [facility] [id number] 2023 Self-pay [id number] 2023 Unknown [id number] 2022 Unknown [id number] 1997 Unknown [id number] 1997 Unknown [id number] 1959 Unknown [id number] Unknown Regular Auto/Liability [id number] Unknown HCAP/HFA/FAP Active [id number] Unknown [id number] Social History Date Type Detail Facility Start: 08-11-2023 Tobacco smoking stat [facility] Never smoked tobacco (finding) [facility] Start: 1995 Sex Assigned At Female F [facility] Tobacco smoking stat [facility] Tobacco smoking consumption unknown [facility] [...] nursing note reviewed. Exam conducted with a batter mixer present. Vitals: Estimated body mass index is [...] Tyrell Adams DO documented in this encounter [facility] Healthcare Evaluation note Note Date & Type Note Facility Evaluation note No assessment [facility] Work Phone: Evaluation note Note Date [...] section and content) DATE CREATED AUTHOR [facility]/2019 [facility] DATE CREATED AUTHOR AUTHOR'S ORGANIZ ATION 06/07/2022 [facility] DATE CREATED AUTHOR AUTHOR'S ORGANIZ ATION 01/31/2024 [facility] DATE CREATED AUTHOR AUTHOR'S ORGANIZ ATION 12/24/2024 [facility] EPIC Care Teams (unrecognized sec [...] BE BASED ON THE PRIMARY CLINICAL RECORDS. [facility] [employer] provides no warranty or guarantee of the accuracy or completeness of information in this document.
--- NOTE | 2025-01-06 01:03 | ED_ITS ---
HPI - Nausea/Vomiting/Diarrhea General Chief complaint: Nausea/Vomiting/Diarrhea Stated complaint: VOMITING Time Seen by Provider: 01/06/25 00:53 Source: patient Mode of arrival: walk-in Limitations: no limitations History of Present Illness HPI Narrative: This 29-year-old female who is 13 weeks and seen here yesterday for nausea and vomiting and is followed by Dr. Adams presents for evaluation of ongoing nausea and vomiting. She was given IV Reglan and fluids yesterday and states she was able to stop vomiting for several hours but started vomiting again around 1 AM. She has been vomiting today all afternoon. She states she cannot count the number of times that she has thrown up. She denies any specific abdominal pain or vaginal bleeding. She has had an ultrasound with this . She has suppositories that she has been using and she states she feels that these are giving her diarrhea. She has had approximately 4 episodes of diarrhea today. She denies any specific abdominal pain. She is not having any fever. Related Data Previous Rx's ?Medication ?Instructions ?Recorded ondansetron 4 mg disintegrating 4 mg PO TID PRN nausea and 11/15/24 tablet vomiting 20 days #30 tabs promethazine 25 mg tablet 25 mg PO BID PRN nausea and 12/08/24 vomiting #7 tabs pantoprazole 40 mg tablet,delayed 40 mg PO DAILY #30 t abs 12/12/24 release (Protonix) potassium chloride 20 mEq 20 meq PO TID #90 tabs 12/12 tablet,extended release promethazine 25 mg rectal 25 mg SC Q4H PRN nausea and 12/12/24 suppository vomiting #36 ea promethazine 25 mg tablet 25 mg PO Q4H PRN nausea and 12/12/24 vomiting #20 tabs metoclopramide HCl 10 mg tablet 10 mg PO Q8H PRN nause a and 01/04/25 (Reglan) vomiting #20 tabs Allergies Allergy/AdvReac Type Severity Reaction Status Date / Time Penicillins Allergy Unknown Verified 01/06/25 00:55 Review of Systems ROS Status of ROS 10 or more systems reviewed and unremark able except as noted in history and below [facility] Medical History (Updated 01/06/25 @ 05:29 by Cristal Miguel MD) Hyperemesis gravidarum ?O21.0 - Mild hyperemesis gravidarum (ICD-10) Hypokalemia ?E87.6 - Hypokalemia (ICD-10) ?Z34.90 - Encounter for supervision of normal , unspecified, unspecified trimester (ICD-10) Acute hypokalemia ?E87.6 - Hypokalemia (ICD-10) Social History Highest level of school completed/degree received: high school graduate Little interest or pleasure in doing things: not at all Feeling down, depressed, or hopeless: not at all Exam Narrative Exam Narrative: Vital signs and Nursing Notes reviewed: Patient is afebrile with a normal pulse, blood pressure is mildly elevated at 146/85, she is not hypoxic with pulse ox of 99% on room air General: Awake, alert, oriented, no acute distress, lying comfortably on the stretcher, no respiratory distress, no active vomiting HEENT: Normocephalic atraumatic, mucous membranes are pink and dry, there is no swelling of the tongue, uvula or pharyngeal soft tissues Neck: Supple, no meningeal signs Chest: Lungs are clear to auscultation with good air entry, there is no wheezing rhonchi or rales appreciated no accessory muscle use, patient is speaking in complete sentences-no chest wall tenderness to palpation CVS: Regular rate and rhythm S1-S2, no murmurs rubs or gallops, pulses are brisk and equal bilaterally ABD: Soft, nondistended, nontender, no rebound guarding or rigidity, bowel sounds are normal Extremities: Moving all extremities, no lower extremity tenderness or swelling noted, negative Homans' sign, pulses are brisk and equal bilaterally Skin: Normal in appearance without rash,pallor, petechiae or purpura Neuro: No focal deficits Constitutional Vital Signs, click to edit/add: Last Vital Signs Temp 99.1 F 01/06/25 00:55 Pulse 64 01/06/25 06:29 Resp 16 01/06/25 06:29 BP 143/75 H 01/06/25 06:29 Pulse Ox 100 01/06/25 06:29 O2 Del Method Room Air 01/06/25 06:29 Course Vital Signs Vital signs: Vital Signs Temperature 99.1 F 01/06/25 00:55 Pulse Rate 65 01/06/25 00:55 Respiratory Rate 18 01/06/25 00:55 Blood Pressure 146/85 H 01/06/25 00:55 Pulse Oximetry 99 01/06/25 00:55 Oxygen Delivery Method Room Air 01/06/25 00:55 Temperature 99.1 F 01/06/25 00:55 Pulse Rate 64 01/06/25 06:29 Respiratory Rate 16 01/06/25 06:29 Blood Pressure 143/75 H 01/06/25 06:29 Pulse Oximetry 100 01/06/25 06:29 Oxygen Delivery Method Room Air 01/06/25 06:29 MDM - Nausea/Vomiting/Diarrhea MDM Narrative Medical decision making narrative: This 29-year-old female G1, P0 who is approximately 13 weeks and was seen yesterday for nausea and vomiting associated with her presents for evaluation of ongoing nausea and vomiting. Despite taking Phenergan oral and suppositories as well as Zofran she is unable to stop vomiting. She is not having any abdominal pain or vaginal bleeding. She has been seen during this and had a normal ultrasound performed. Her vital signs are stable and her mucous membranes are dry and she had multiple episodes of dry heaves in the ER. An IV was established and she was given IV fluids Pepcid and IV Compazine. Routine labs are ordered and are reviewed. Her white count is elevated at 15, similar to yesterday. Electrolytes are normal with the exception of a low CO2 at 20.1 and a low potassium of 2.8. Urine is negative for infection or positive for ketones. LFTS and lipase are normal. She was given a liter of normal s jin then a liter of D5LR. After the saline she appeared to be feeling somewhat better and was able to tolerate ice chips. After the second liter of fluids the patient is feeling much better. Her color has improved. She has not had any more vomiting or dry heaves. She will be discharged home at the conclusion of these fluids. She has Phenergan and Zofran at home. She will be given a prescription for oral potassium supplementation. I had ordered a repeat BMP but she declined this and it was canceled. Lab Data Labs: Lab Results 01/06/25 01/06/25 Range/Units 01:36 01:40 WBC 15.7 H (4.0-11.0) 10^3/uL RBC 4.39 (4.20-5.40) 10^6/uL Hgb 14.1 (12.0-16.0) g/dL Hct 37.8 (36.0-48.0) % MCV 86.1 (81.0-99.0) fL MCH 32.1 (26.7-34.0) pg MCHC 37.3 H (29.9-35.2) g/dL RDW 12.4 (11.0-15.0) % Plt Count 400 (150-450) 10^3/uL MPV 9.2 L (9.5-13.5) fL Neut % (Auto) 82.3 H (43.0-75.0) % Lymph % (Auto) 10.7 L (20.5-60.0) % [place] % (Auto) 5.7 (1.7-12.0) % Eos % (Auto) 0.0 L (0.9-7.0) % Baso % (Auto) 0.4 (0.2-2.0) % Neut # (Auto) 12.9 H (1.4-6.5) 10^3/uL Lymph # (Auto) 1.7 (1.2-3.8) 10^3/uL [place] # (Auto) 0.9 H (0.3-0.8) 10^3/uL Eos # (Auto) 0.0 (0.0-0.7) 10^3/uL Baso # (Auto) 0.1 (0.0-0.1) 10^3/uL Abs Immat Gran (auto) 0.14 H (0.00-0.03) 10^3/uL Imm/Tot Granulo (auto) 0.9 H (0.0-0.5) % Sodium 132 L (136-145) mmol/L Potassium 2.8 L* (3.5-5.1) mmol/L Chloride 97 L (98-107) mmol/L Carbon Dioxide 20.9 L (21.0-32.0) mmol/L Anion Gap 16.9 BUN 8.0 (7.0-18.0) mg/dL Creatinine 0.67 (0.55-1.02) mg/dL Est GFR ( Amer) >60 (>=60 mL/min/1.73m^2) Est GFR (Non-Af Amer) >60 (>=60 mL/min/1.73m^2) BUN/Creatinine Ratio 11.9 Glucose 104 (74-106) mg/dL Calcium 9.6 (8.5-10.1) mg/dL Total Bilirubin 1.6 H (0.2-1.0) mg/dL AST 20 (15-37) U/L ALT 38 (14-59) U/L Alkaline Phosphatase 48 (46-116) U/L Total Protein 7.5 (6.4-8.2) g/dL Albumin 3.5 (3.4-5.0) g/dL Globulin 4.0 g/dL Albumin/Globulin Ratio 0.9 Lipase 17.0 (16.0-77.0) U/L Urine Color Dk. orange (YELLOW) Urine Clarity Clear (CLEAR) Urine pH 6.0 (5.0-9.0) Ur Specific [place] 1.025 (1.005-1.025) Urine Protein 100 A (NEG/TRACE) mg/dL Urine Glucose (UA) 100 A (NEGATIVE) mg/dL Urine Ketones >=80 A (NEGATIVE) mg/dL Urine Occult Blood Small A (NEGATIVE) Urine Nitrite Negative (NEGATIVE) Urine Bilirubin Small A (NEGATIVE) Urine Urobilinogen >=8.0 (0.2-1.0) EU/dL Ur Leukocyte Esterase Negative (NEGATIVE) Urine RBC 0-2 (0-2) #/HPF Urine WBC 2-5 A (NONE SEEN) #/HPF Ur Squamous Epith Cells Rare (NONE/RARE) #/LPF Ur Transition Epith Cell Few A (NONE SEEN) #/LPF Urine Crystals None seen (None Seen) #/HPF Urine Bacteria Small A (NONE SEEN) #/HPF Urine Casts Seen A (NONE SEEN) #/LPF WBC Casts Rare Urine Mucus Moderate A (NONE SEEN) Ur Culture Indicated? [place] [place] Plan Discharge Chief Complaint: Nausea/Vomiting/Diarrhea Clinical Impression: Hyperemesis gravidarum, Hypokalemia Prescriptions / Home Meds: No Action ondansetron 4 mg tablet,disintegrating 4 mg PO TID PRN (Reason: nausea and vomiting) 20 Days Qty: 30 0RF promethazine 25 mg tablet 25 mg PO BID PRN (Reason: nausea and vomiting) Qty: 7 0RF pantoprazole [Protonix] 40 mg tablet,delayed release (DR/EC) 40 mg PO DAILY Qty: 30 11RF potassium chloride 20 mEq tablet extended release 20 meq PO TID Qty: 90 11RF promethazine 25 mg tablet 25 mg PO Q4H PRN (Reason: nausea and vomiting) Qty: 20 0RF promethazine 25 mg suppository 25 mg SC Q4H PRN (Reason: nausea and vomiting) Qty: 36 0RF metoclopramide HCl [Reglan] 10 mg tablet 10 mg PO Q8H PRN (Reason: nausea and vomiting) Qty: 20 0RF Print Language: Swedish Referrals: Physician,Non-Staff, MD [Primary Care Provider] - 1 week
[2025-01-06] MEDS: 0.9 % SODIUM CHLORIDE 1,000 ML 1000 ML IV (01:46)
[2025-01-06] MEDS: FAMOTIDINE/PF 20 MG/2 ML VIAL IV (01:46)
[2025-01-06] MEDS: PROCHLORPERAZINE 10 MG/2 ML VIAL IV (01:46)
[2025-01-06 02:03] LABS: Basophils Absolute Auto 0.1 10^3/uL (0.0-0.1); Basophils Percent Auto 0.4 % (0.2-2.0); Hematocrit 37.8 % (36.0-48.0); Hemoglobin 14.1 g/dL (12.0-16.0); Immature Granulocytes Abs Auto 0.14 10^3/uL (0.00-0.03); Immature Granulocytes Pct Auto 0.9 % (0.0-0.5); Lymphocytes Absolute Auto 1.7 10^3/uL (1.2-3.8); Lymphocytes Percent Auto 10.7 % (20.5-60.0); Mean Corpuscular HGB Conc 37.3 g/dL (29.9-35.2); Mean Corpuscular Hemoglobin 32.1 pg (26.7-34.0); Mean Corpuscular Volume 86.1 fL (81.0-99.0); Mean Platelet Volume 9.2 fL (9.5-13.5); Monocytes Absolute Auto 0.9 10^3/uL (0.3-0.8); Monocytes Percent Auto 5.7 % (1.7-12.0); Neutrophils Absolute Auto 12.9 10^3/uL (1.4-6.5); Neutrophils Percent Auto 82.3 % (43.0-75.0); Platelet Count 400 10^3/uL (150-450); Red Blood Count 4.39 10^6/uL (4.20-5.40); Red Cell Distribution Width 12.4 % (11.0-15.0); White Blood Count 15.7 10^3/uL (4.0-11.0)
[2025-01-06 02:03] LABS: Bilirubin Urine SMALL (NEGATIVE); Blood Urine SMALL (NEGATIVE); Clarity Urine CLEAR (CLEAR); Color Urine DK. ORANGE (YELLOW); Glucose Urine UA 100 mg/dL (NEGATIVE); Ketones Urine >=80 mg/dL (NEGATIVE); Leukocyte Esterase Urine NEGATIVE (NEGATIVE); Nitrite Urine NEGATIVE (NEGATIVE); Protein Urine 100 mg/dL (NEG/TRACE); Specific Gravity Urine 1.025 (1.005-1.025); Urobilinogen Urine >=8.0 EU/dL (0.2-1.0)
[2025-01-06 02:10] LABS: Crystals Seen? None Seen #/HPF (None Seen); RBC Urine 0-2 #/HPF (0-2); Squamous Epithelial Cell Urine RARE #/LPF (NONE/RARE); Transitional Epi Cells Urine FEW #/LPF (NONE SEEN)
[2025-01-06 02:11] LABS: Bacteria Urine SMALL #/HPF (NONE SEEN); Cast Seen? SEEN #/LPF (NONE SEEN); Mucus Urine MODERATE (NONE SEEN); Urine Culture Indicated YES-FRMC; White Blood Cell Casts Urine RARE
[2025-01-06 02:19] LABS: Alanine Aminotransferase 38 U/L (14-59); Albumin Globulin Ratio 0.9; Albumin Level 3.5 g/dL (3.4-5.0); Alkaline Phosphatase 48 U/L (46-116); Anion Gap 16.9; Aspartate Amino Transferase 20 U/L (15-37); BUN Creatinine Ratio 11.9; Bilirubin Total 1.6 mg/dL (0.2-1.0); Calcium 9.6 mg/dL (8.5-10.1); Carbon Dioxide 20.9 mmol/L (21.0-32.0); Chloride 97 mmol/L (98-107); Estimated GFR (African America >60 (>=60 mL/min/1.73m^2); Estimated GFR (Non-African Ame >60 (>=60 mL/min/1.73m^2); Glucose 104 mg/dL (74-106); Sodium 132 mmol/L (136-145); Total Protein 7.5 g/dL (6.4-8.2)
[2025-01-06 02:21] LABS: Potassium 2.8 mmol/L (3.5-5.1)
[2025-01-06] MEDS: POTASSIUM CHLORIDE IN WATER 10 MEQ/100 ML PREMIX 100 MEQ IV (03:12)
[2025-01-06] MEDS: DEXTROSE 5%-LACTATED RINGERS 1,000 ML 100 ML IV (03:12)
[2025-01-06 06:29] VITALS: BP 143/75; PULSE 64; O2SAT 100
== END | disposition home or self-care (01) ==
PROVIDERS: Emergency Provider Emergency Medicine
DX: O21.1 Hyperemesis gravidarum with metabolic disturbance (principal); O21.0 Mild hyperemesis gravidarum; Z3A.13 13 weeks gestation of pregnancy; R19.7 Diarrhea, unspecified
CPT/HCPCS: 36415; 80048; 80053; 81003; 83690; 85025; 87086; 96361; 96365; 96366; 96375; 99284; J0780; J3480; J3490

== ENCOUNTER 2025-01-31 15:10 | Outpatient (OUT) | payer SELFPAY ==
--- OUTSIDE RECORDS SUMMARY | 2025-01-24 10:30 | XMS_ITS | Encounter Summary ---
Author Organization [facility] Address [address] [facility] [address] [facility] [place] [address] Care Team Providers Care Cheerleading Coach Name Role Phone Unavailable Primary Care Provider Unavailabl e Encounter Details Date Type Department Care Team (Late st Contact Info) Description 01/24/2025 10:30 AM EDT Ancillary Procedure [facility] [address] [place], [place] [address] Missed menses Social History Tobacco Use Types Packs/Day Years Used Date Smoking Tobacco: Never Assessed Estimated Date of Delivery Comme nts Yes 07/01/2025 Based on Ultraso und Sex and Gender Information Value Date Recorded Sex Assigned at Female 12/22/2024 5:56 PM EDT Legal Sex Female 7:00 PM EDT Gender Identity Female 12/22/2024 5:56 PM EDT Sexual Orientation Not on file documented as of this encounter Plan of Treatment Upcoming Encounters Date Type Department Care Team (Late st Contact Info) Description 02/12/2025 9:00 AM EDT Clinical Support [facility] [address] [place] [address] 02/27/2025 8:50 AM EDT Routine [facility] [address] [place] [address] Jaspreet Adams DO [address] [place], [place] [id number] documented as of this encounter Procedures Procedure Name Priority Date/Time Associated Diagnosis Comments US OB LIMITED 1+ FETUSES Routine 01/24/2025 10:57 AM EDT Missed menses documented in this encounter Results * US OB limited 1+ fetuses (01/24/2025 10:57 AM EDT) Anatomical Region Laterality Modality Body Ultrasound 01/27/2025 10:2 4 AM EDT Narrative 01/27/2025 10:24 AM EDT EXAM: US OB LIMITED 1+ FETUSES HISTORY: Dating. COMPARISON: None available. TECHNIQUE: Two-dimensional transabdominal grayscale ultrasound imaging of the pelvis was performed. FINDINGS: Gestation: Single Presentation: Cephalic Cardiac Activity: 148 beats per minute Placental Location: Posterior with no sonographic abnormalities identified. Amniotic Fluid: Appears adequate MEASUREMENTS: BPD: 3.7 cm EGA: 17 weeks 3 days HC: 13.9 cm EGA: 17 weeks 2 days AC: 11.7 cm EGA: 17 weeks 3 days FL: 2.4 cm EGA: 17 weeks 3 days HC/AC Ratio: 1.19 The gestational age by today's ultrasound is 17 weeks 3 days (+/- 9 days gestation). IMPRESSION: 1. Single, live intrauterine gestation 16 weeks, 0 days by LMP. Today's ultrasound measurements correlate with a gestational age of 17 weeks 3 days. SOFIA is 07/01/2025. Interpreted by: Electronically signed by ALDEN PEREA II, MD, PHD at 27-Jan-2025 10:23:04 AM [facility] Procedure Note Alden Perea MD - 01/27/2025 EXAM: US OB LIMITED 1+ FETUSES HISTORY: Dating. COMPARISON: None available. TECHNIQUE: Two-dimensional transabdominal grayscale ultrasound imaging ofthe pelvis was performed. FINDINGS: Gestation: Single Presentation: Cephalic Cardiac Activity: 148 beats per minute Placental Location: Posterior with no sonographic abnormalitiesidentified. Amniotic Fluid: Appears adequate MEASUREMENTS: BPD: 3.7 cm EGA: 17 weeks 3 days HC: 13.9 cm EGA: 17 weeks 2 days AC: 11.7 cm EGA: 17 weeks 3 days FL: 2.4 cm EGA: 17 weeks 3 days HC/AC Ratio: 1.19 The gestational age by today's ultrasound is 17 weeks 3 days (+/- 9 daysgestation). IMPRESSION: 1. Single, live intrauterine gestation 16 weeks, 0 days by LMP. Today'sultrasound measurements correlate with a gestational age of 17 weeks 3days. SOFIA is 07/01/2025. Interpreted by: Electronically signed by ALDEN PEREA II, MD, PHD [id number] 10:23:04 AM [facility] us Jaspreet Angie DO IMG OB US PROCEDURES Final Resul t documented in this encounter Visit Diagnoses Diagnosis Missed menses documented in this encounter
--- OUTSIDE RECORDS SUMMARY | 2025-01-24 10:30 | XMS_ITS | Encounter Summary ---
Author Organization [facility] Address [address] [facility] [place] [address] Care Team Providers Care Blow Up Operator Name Role Phone Unavailable Primary Care Provider Unavailabl e Encounter Details Date Type Department Care Team (Late st Contact Info) Description 01/24/2025 10:30 AM EDT Ancillary Procedure [facility] [address] [place] [address] Missed menses Social History Tobacco Use [...] Support [facility] [address] [place] [address] 02/27/2025 8:50 AM EDT Routine [facility] [address] [place] [address] Jaspreet Adams DO [address], [place] [id number] documented as of this encounter Procedures Procedure [...] II, MD, PHD at 27-Jan-2025 10:23:04 AM [facility] Procedure Note Alden Perea MD - [...] signed by ALDEN PEREA II, MD, PHD [id number] 10:23:04 AM [facility] us Jaspreet Angie DO IMG OB US PROCEDURES Final Resul t documented in this encounter Visit Diagnoses Diagnosis Missed menses documented in this encounter
--- OUTSIDE RECORDS SUMMARY | 2025-01-24 11:00 | XMS_ITS | Encounter Summary ---
Author Organization [facility] Address [address] [place] [address] Care Team Providers Care Customer Service Administrator Name Role Phone Unavailable Primary Care Provider Unavailabl e Reason for Visit * Reason Comments Amenorrhea Encounter Details Date Type Department Care Team ([facility] Contact Info) Description 01/24/2025 11:00 AM EDT Initial [facility] [address] [facility] [place] [phone] GA: 17w3d Social History Tobacco Use Types Packs/Day Years Used Date Smoking Tobacco: Never Assessed Estimated Date of Delivery Comme nts Yes 07/01/2025 Based on Ultraso und Sex and Gender Information Value Date Recorded Sex Assigned at Female 12/22/2024 5:56 PM EDT Legal Sex Female 7:00 PM EDT Gender Identity Female 12/22/2024 5:56 PM EDT Sexual Orientation Not on file documented as of this encounter Last Filed Vital Signs Vital Sign Reading Time Taken Comments Blood Pressure 142/70 01/24/2025 11:42 AM EDT Pulse - - Temperature - - Respiratory Rate - - Oxygen Saturation - - Inhaled Oxygen Concentration - - Weight 87.3 kg (192 lb 6 oz) 01/24/2025 11:21 AM EDT Height - - Body Mass Index 32.01 12/01/2020 12:00 PM EDT documented in this encounter Progress Notes * Kalyn Jacob MA - 01/24/2025 11:00 AM EDT Reason for Appointment: Patient ID: Chente Gonzalez is a 29 y.o. female who presents for Amenorrhea Patient presents today for a Nurse OB Intake appointment. Patient is 17w3d with a Estimated Date ofDelivery: 07/01/25 OB History Para Term AB Living 1 SAB IAB Ectopic Multiple Live Births # Outcome Date GA Lbr Johan/2nd Weight Sex Type Anes PTL Lv 1 Current Current Medications: has a current medication list which includes the following prescription(s): multivitamin. Medical History: Active Ambulatory Problems Diagnosis Date Noted No Active Ambulatory Problems Resolved Ambulatory Problems Diagnosis Date Noted No Resolved Ambulatory Problems No Additional Past Medical History No family history on file. Social History Tobacco Use Smoking status: Not on file Smokeless tobacco: Not on file Substance Use Topics Alcohol use: Not on file Drug use: Not on file No past surgical history on file. Allergies Allergen Reactions Penicillins Other Reaction(s): Unknown Vitals: Estimated body mass index is 32.01 kg/m?? as calculated from the following: Height as of 12/01/20: 5' 5 . Weight as of this encounter: 192 lb 6 oz. BP: 142/70 Patient's last menstrual period was 10/04/2024 (approximate). Assessment/Plan Diagnoses and all orders for this visit: Missed menses - Type and screen; Future - ABO/Rh; Future - CBC and differential - Hemoglobin A1c - RPR - Rubella antibody, IgG - Hepatitis B surface antigen - Hepatitis C antibody - HIV-1 and HIV-2 antibodies - Urine culture - POCT , urine manually resulted - POCT urinalysis dipstick manually resulted , unspecified gestational age - Type and screen; Future - ABO/Rh; Future - CBC and differential - Hemoglobin A1c - RPR - Rubella antibody, IgG - Hepatitis B surface antigen - Hepatitis C antibody - HIV-1 and HIV-2 antibodies - Rapid drug screen, urine; Future Encounter for supervision of normal first in first trimester - Rapid drug screen, urine; Future - Alpha fetoprotein, maternal; Future Nurse Note: OB Intake: Patient presents today for first OB visit. Patients history has been reviewed in great detail including any potential risks. Patient signed consent forms and patient desires testing in both trimesters. Patient currently has no complaints and has been advised to drink 6-8 glasses of water a day, eatno raw or undercooked meat, and [facility] away from [facility]. Patient has also been advised to not change litter boxes and eat 6 small meals a day. Patient has been consulted regarding the do's and don'ts ofpregnancy. Patient was given labs and all questions and concerns were answered. Pt initial BP 150/90 BP retaken (142/70) Advised pt to return to office in 1wk with Dr. Adams to follow up. Follow Up: Patient is to have labs drawn at directed and return to office for initial OB appointment with provider. Patient may call office as needed with any concerns or questions. Nurse Visit Completed by: Kalyn Jacob MA documented in this encounter Plan of Treatment Upcoming Encounters Date Type Department Care Team (Late st Contact Info) Description 02/12/2025 9:00 AM EDT Clinical Support [facility] OB [address] [place] [address] [address] [place], [place] [address] 02/27/2025 8:50 AM EDT Routine [facility] OB [address] [place] [address] [address] [place], [place] [address] Jaspreet Adams, DO [address] [place] [address] [place] [address] Scheduled Orders Name Type Priority Associated Diagnoses Orde r Schedule Type and screen Lab Routine Missed menses , unspecified gestational age Expected: 01/24/2025 (Approximate), Expires: 01/24/2026 ABO/Rh Lab Routine Missed menses , unspecified gestational age Expected: 01/24/2025 (Approximate), Expires: 01/24/2026 CBC and differential Lab Routine Missed menses , unspecified gestational age Ordered: 01/24/2025 Hemoglobin A1c Lab Routine Missed menses , unspecified gestational age Ordered: 01/24/2025 RPR Lab Routine Missed menses , unspecified gestational age Ordered: 01/24/2025 Rubella antibody, IgG Lab Routine Missed menses , unspecified gestational age Ordered: 01/24/2025 Hepatitis B surface antigen Lab Routine Missed menses , unspecified gestational age Ordered: 01/24/2025 Hepatitis C antibody Lab Routine Missed menses , unspecified gestational age Ordered: 01/24/2025 HIV-1 and HIV-2 antibodies Lab Routine Missed menses , unspecified gestational age Ordered: 01/24/2025 Urine culture Microbiology Routine Missed menses Ordered: 01/24/2025 Rapid drug screen, urine Lab Routine , unspecified gestational age Encounter for supervision of normal first in first trimester Expected: 01/24/2025 (Approximate), Expires: 01/24/2026 Alpha fetoprotein, maternal Lab Routine Encounter for supervision of normal first in first trimester Expected: 01/24/2025 (Approximate), Expires: 03/26/2025 documented as of this encounter Procedures Procedure Name Priority Date/Time Associated Diagnosis Comments POCT , URINE Routine 01/24/2025 11:39 AM EDT Missed menses POCT URINALYSIS DIPSTICK Routine 01/24/2025 11:39 AM EDT Missed menses documented in this encounter Results * (ABNORMAL) POCT urinalysis dipstick manually resulted (01/24/2025 11:39 AM EDT) Color, UA Yellow Clarity, UA Clear Glucose, UA Negative Negative - 2000(110) ++++ mg/dL Bilirubin, UA Negative Negative - 4(70) +++ mg/dL Ketones, UA Negative Negative - 160(16) ++++ mg/dL Spec Grav, UA 1.020 1 - 1.03 Blood, UA Positive Negative - 50 Derick/mcL Comment:Trace-Intact pH, UA 7.0 5 - 9 Protein, UA Negative Negative - 2000(20) ++++ mg/dL Urobilinogen, UA 0.2 0.2 - 12 mg/dL Leukocytes, UA Negative Negative - 500+++ Julio/mcL Nitrite, UA Negative Negative - Positive Urine 01/24/2025 11:3 9 AM EDT Jaspreet Adams DO POINT OF CARE TEST ENTER/EDIT OR DERABLES Final Result * (ABNORMAL) POCT , urine manually resulted (01/24/2025 11:39 AM EDT) Preg Test, Ur Positive Negative Urine 01/24/2025 11:3 9 AM EDT Jaspreet Adams DO POINT OF CARE TEST ENTER/EDIT OR DERABLES Final Result documented in this encounter Visit Diagnoses Diagnosis Missed menses , unspecified gestational age Encounter for supervision of normal first in first trimester documented in this encounter
--- OUTSIDE RECORDS SUMMARY | 2025-01-24 11:00 | XMS_ITS | Encounter Summary ---
Author Organization [facility] Address [address] [place] [address] Care Team Providers Care Manager Clinical Pharmacy Name Role Phone Unavailable Primary Care Provider Unavailabl e Reason for Visit * Reason Comments Amenorrhea Encounter Details Date Type Department Care Team ([facility] Contact Info) Description 01/24/2025 11:00 AM EDT Initial [facility] OB [address] [facility] [place] [phone] GA: 17w3d Social History Tobacco Use Types [...] meat, and [facility] Patient has also been advised to not [...] 02/12/2025 9:00 AM EDT Clinical Support [facility] OB [address] [place] [address] [address] [place], [place] [address] 02/27/2025 8:50 AM EDT [facility] [address] [place] [address] [address] [place], [place] [address] Jaspreet Adams, DO [address] [place] [address] [place] [address] Scheduled Orders Name Type Priority Associated Diagnoses [...]
--- OUTSIDE RECORDS SUMMARY | 2025-01-29 10:20 | XMS_ITS | Encounter Summary ---
Author Organization [facility] Address [address] [facility] [place] [address] Care Team Providers Care Watch Crystal Grinder Name Role Phone Unavailable Primary Care Provider Unavailabl e Reason for Visit * Reason Comments Routine Visit Encounter Details Date Type Department Care Team (Late st Contact Info) Description 01/29/2025 10:20 AM EDT Routine [facility] [address] [facility] [place] [place] [address] Nabila Avila, WILLIE [address] [place] [address] Second trimester ; 18 weeks gestation of Social History Tobacco Use Types Packs/Day Years [...] Sign Reading Time Taken Comments Blood Pressure 136/80 01/29/2025 10:57 AM EDT Pulse - - Temperature - - Respiratory Rate - - Oxygen Saturation - - Inhaled Oxygen Concentration - - Weight 86 kg (189 lb 8 oz) 01/29/2025 10:57 AM E DT Height - - Body Mass Index 31.53 12/01/2020 12:00 PM EDT documented in this encounter Plan of Treatment Upcoming Encounters Date Type Department Care Team (Late st Contact Info) Description 02/12/2025 9:00 AM EDT Clinical Support [facility] [address] [facility] [place] [address] [place] [address] 02/27/2025 8:50 AM EDT Routine [facility] [address] [facility] [place] [place] [phone] Jaspreet Adams, DO [address] [facility] [place] [address] Scheduled Orders Name Type Priority Associated Diagnoses Orde r Schedule Urine culture Microbiology Routine Second trimester Ordered: 01/29/2025 documented as of this encounter Procedures Procedure Name Priority Date/Time Associated Diagnosis Comments POCT URINALYSIS DIPSTICK Routine 01/29/2025 11:02 AM EDT Second trimester documented in this encounter Results * (ABNORMAL) POCT urinalysis dipstick manually resulted (01/29/2025 11:02 AM EDT) Color, UA Yellow Clarity, UA Clear Glucose, UA Negative Negative - 1999(110) ++++ mg/dL Bilirubin, UA Negative Negative - 4(70) +++ mg/dL Ketones, UA Negative Negative - 160(16) ++++ mg/dL Spec Grav, UA 1.020 1 - 1.03 Blood, UA Positive Negative - 50 Derick/mcL Comment:Trace-intact pH, UA 7.0 5 - 9 Protein, UA Trace Negative - 2000(20) ++++ mg/dL Urobilinogen, UA 1.0 0.2 - 12 mg/dL Leukocytes, UA Negative Negative - 500+++ Julio/mcL Nitrite, UA Negative Negative - Positive Urine 01/29/2025 11:0 2 AM EDT Nabila Avila NP POINT OF CARE TEST ENTER/EDIT ORDERABLES Final Result documented in this encounter Visit Diagnoses Diagnosis Second trimester state, incidental 18 weeks gestation of documented in this encounter
--- OUTSIDE RECORDS SUMMARY | 2025-01-29 10:20 | XMS_ITS | Encounter Summary ---
Author Organization [facility] Address [address] [facility] [place] [address] Care Team Providers Care Priming Mixture Carrier Name Role Phone Unavailable Primary Care Provider Unavailabl e Reason for Visit * Reason Comments Routine Visit Encounter Details Date Type Department Care Team ([facility] Contact Info) Description 01/29/2025 10:20 AM EDT Routine [facility] [address] [facility] [place] [address] Nabila Avila NP [address] [facility] [place] [address] Second trimester ; 18 weeks gestation [...] documented in this encounter Progress Notes * Nabila Avila NP - 01/29/2025 10:20 AM EDT Reason for Appointment: Patient ID: Chente Gonzalez is a 29 y.o. female who presents for Routine Visit Patient presents today for Return OB appointment. MEDICATIONS Current Outpatient Medications Medication Instructions Multiple Vitamin (multivitamin) tablet 1 tablet, Daily ALLERGIES Allergies Allergen Reactions Penicillins Other Reaction(s): [...] SYSTEMS Review of Systems: Review of Systems Constitutional: Negative. HENT: Negative. Eyes: Negative. Respiratory: Negative. Cardiovascular: Negative. Gastrointestinal: Negative. Genitourinary: Negative. Musculoskeletal: Negative. Skin: Negative. Neurological: Negative. All other systems reviewed and are negative. Hematological: Negative. Endocrine: Negative. Allergic/Immunologic: Negative. OBJECTIVE Objective: Physical Exam Constitutional: Appearance: Normal [...] nursing note reviewed. Exam conducted with a engrosser present. Vitals: Estimated body mass index is 31.53 kg/m?? as calculated from the following: Height as of 12/01/20: 5' 5 . Weight as of this encounter: 189 lb 8 oz. BP: 136/80 Patient's last menstrual period was 10/04/2024 (approximate). ASSESSMENT & PLAN ICD-10-CM 1. Second trimester Z34.92 POCT urinalysis dipstick manually resulted 2. 18 weeks gestation of Z3A.18 Return OB: Patient presents today for a routine obstetrics appointment. Patient is currently 18w1d . Patient states she is doing well but has complaints of being tired due to current . Patient to return in 2 weeks for nurse visit for B/P recheck. Follow up OB appointment in 4 weeks. Orders Placed This Encounter Procedures POCT urinalysis dipstick manually resulted Follow Up: Patient is to return to office in 2 week for routine OB appointment. Documented by Nabila Avila NP on behalf of: Nabila Avila NP documented in this encounter Plan of Treatment Upcoming Encounters Date Type Department Care Team (Late st Contact Info) Description 02/12/2025 9:00 AM EDT Clinical Support [facility] [address] [facility] [place] [place] [address] 02/27/2025 8:50 AM EDT Routine [facility] OB [address] [place], [place] [address] [place] [address] Jaspreet Adams, DO [address] [place] [address] Scheduled Orders Name Type Priority Associated Diagnoses [...] - 9 Protein, UA Trace Negative - 1999(20) ++++ mg/dL Urobilinogen, UA 1.0 0.2 - [...]
--- OUTSIDE RECORDS SUMMARY | 2025-01-29 11:49 | XMS_ITS | Encounter Summary ---
Author Organization [facility] Address [address] [facility] [place] [address] Care Team Providers Care Rivet Tosser Name Role Phone Unavailable Primary Care Provider Unavailabl e Encounter Details Date Type Department Care Team (Late st Contact Info) Description 12/11/2024 Abstract [facility] OB [address] [place] [place] [phone] Jaspreet Adams DO [address] [place], [facility] Social History Tobacco Use Types Packs/Day Years Used Date Smoking Tobacco: Never Assessed Comments Unknown Sex and Gender Information Value Date Recorded Sex Assigned at Female 12/22/2024 5:56 PM EDT Legal Sex Female 7:00 PM EDT Gender Identity Female 12/22/2024 5:56 PM EDT Sexual Orientation Not on file documented as of this encounter Plan of Treatment Upcoming Encounters Date Type Department Care Team (Late Contact Info) Description 02/12/2025 9:00 AM EDT Clinical Support [facility] OB [address] [place] [place] [phone] 02/27/2025 8:50 AM EDT Routine [facility] OB [address] [place] [place] [address] Jaspreet Adams DO [address] [place], [place] [id number] documented as of this encounter Visit Diagnoses Not on filedocumented in this encounter
--- OUTSIDE RECORDS SUMMARY | 2025-01-29 11:49 | XMS_ITS | Encounter Summary ---
Author Organization [facility] Address [address] [facility] [place] [address] Care Team Providers Care Multi Operation Machine Operator Name Role Phone Unavailable Primary Care Provider Unavailabl e Encounter Details Date Type Department Care Team (Late Contact Info) Description 12/12/2024 Abstract [facility] OB [address] [place] [place] [phone] Jaspreet Adams DO [address] [place], [facility] Social History Tobacco Use Types Packs/Day Years [...] 02/12/2025 9:00 AM EDT Clinical Support [facility] OB [address] [place] [place] [phone] 02/27/2025 8:50 AM EDT Routine [facility] OB [address] [place] [place] [address] Jaspreet Adams DO [address] [place], [place] [id number] documented as of this encounter Visit Diagnoses Not on filedocumented in this encounter
--- OUTSIDE RECORDS SUMMARY | 2025-01-29 11:50 | XMS_ITS | Patient Health Record ---
Author Organization [facility] Blueliv es Address [address] [facility] [place] [address] Care Team Providers Care Slack Line Yarder Name Role Phone Yissel Butler Primary Care Provider Allergies Allergen (clinical drug ingredient) Drug/Non Drug Allergy documented on EMR Reaction Allergy Type Onset Date Status Penicillin Unknown Drug Allergy Active Reason For Referral No Information Medications Medication SIG (Take, Route, Fr equency, Duration) Notes Start Date End Date Status Ondansetron 4 MG 1 tablet on the tong ue and allow to dissolve Orally Once a day Activ e Social History Tobacco Use: Social History Observation Description Date Details (start date - stop date) Never Smoker NA - NA Tobacco Screen: Question Answer Notes Are you a: never smoker Sexual Hx: Question Answer Notes Had sex in the last 12 months (vaginal, oral, or anal)? No Alcohol Screening: Question Answer Notes Did you have a drink contain ing alcohol in the past year? Yes How often did you have a dri nk containing alcohol in the past year? Monthly or less (1 point) Points 1 Interpretation Negative Plan Of Treatment No Information Insurance Providers Payer Name Payer Address Payer Phone Subscriber Number Group Number Insured Name Patient Relationship to Insured Coverage Start Date Coverage End Date [employer] [address] [place] [phone] [id number] JORGE ALBERTO LUNA Self - patient is the insured 2 Medical (General) History Medical History History ICD Code Polycystic Kidney Disease Hospitalization History Reason Date(Month/Year) Hyperemesis 06/2021
--- OUTSIDE RECORDS SUMMARY | 2025-01-29 11:50 | XMS_ITS | Clinical Summary ---
Author Organization [facility] Address [address] [place] [address] Care Team Providers Care Allopathic Doctor Name Role Phone Unavailable Primary Care Provider Unavailabl e Allergies Active Allergy Reactions Criticality Noted Date Comments Penicillins 12/23/2024 Other Reaction(s): Unknown Medications Multiple Vitamin (multivitamin) tablet Take 1 tablet by mouth Daily Active ondansetron ODT (Zofran-ODT) 4 MG disintegrating tablet Take 4 mg by mouth 025 Discontinued potassium chloride CR (K-Tab) 20 MEQ ER tablet Take 20 mEq by mouth in the morning and 20 mEq in the evening and 20 mEq before bedtime. 12/13/19 25 025 Discontinued promethazine (Phenergan) 25 MG suppository Insert 12.5 mg into the rectum every 6 (six) hours if needed for vomiting or nausea 12/14/19 25 025 Discontinued pantoprazole (ProtoNix) 40 MG EC tablet Take 40 mg by mouth Daily 12/13/19 025 Discontinued Encounters Date Type Department Care Team Description 01/29/2025 10:20 AM EDT Routine [facility] [address] [place] [place] [address] Nabila Avila NP Second trimester ; 18 weeks gestation of 01/29/2025 Bamboo flowsheet [facility] [address] [place] [place] [address] Nabila Avila NP 01/24/2025 11:00 AM EDT Initial [facility] OB [address] [place] [address] GA: 17w3d 01/24/2025 10:30 AM EDT Ancillary Procedure [facility] [address] [place] [address] Missed menses 01/06/20[address] [facility] [address] [place] [address] Kalyn Jacob MA 12/23/2024 1:30 PM EDT Office Visit [facility] [address] [place] [address] Jaspreet Adams DO Hyperemesis gravidarum; Follow-up exam 12/23/2024 Bamboo flowsheet [facility] [address] [place] [address] Jaspreet Adams, 12/12/2024 Abstract [facility] [address] [place] [address] Jaspreet Adams, 12/11/2024 Telephone [facility] [address] [place] [address] Jaspreet Adams, 12/11/2024 Abstract [facility] [address] [place] [address] Jaspreet Adams, from Last 3 Months Social History Tobacco Use Types Packs/Day Years Used Date Smoking Tobacco: Never Assessed Estimated Date of Delivery Comme nts Yes 07/01/2025 Based on Ultraso und Sex and Gender Information Value Date Recorded Sex Assigned at Female 12/22/2024 5:56 PM EDT Legal Sex Female 7:00 PM EDT Gender Identity Female 12/22/2024 5:56 PM EDT Sexual Orientation Not on file Last Filed Vital Signs Vital Sign Reading Time Taken Comments Blood Pressure 136/80 01/29/2025 10:57 AM EDT Pulse - - Temperature - - Respiratory Rate - - Oxygen Saturation - - Inhaled Oxygen Concentration - - Weight 86 kg (189 lb 8 oz) 01/29/2025 10:57 AM E DT Height 165.1 cm (5' 5 ) 12/01/2020 12:00 PM EDT Body Mass Index 31.53 12/01/2020 12:00 PM EDT Plan of Treatment Upcoming Encounters Date Type Department Care Team (Late st Contact Info) Description 02/12/2025 9:00 AM EDT Clinical Support [facility] [address] [facility] [place] [address] [place] [phone] 02/27/2025 8:50 AM EDT Routine [facility] [address] [facility] [place] [place] [address] Jaspreet Adams, DO [address] [place] [address] [address] [place] [place], [place] [phone] Procedures Procedure Name Priority Date/Time Associated Diagnosis Comments POCT URINALYSIS DIPSTICK Routine 01/29/2025 11:02 AM EDT Second trimester POCT URINALYSIS DIPSTICK Routine 01/24/2025 11:39 AM EDT Missed menses POCT , URINE Routine 01/24/2025 11:39 AM EDT Missed menses US OB LIMITED 1+ FETUSES Routine 01/24/2025 10:57 AM EDT Missed menses from Last 3 Months Results * (ABNORMAL) POCT urinalysis dipstick manually resulted (01/29/2025 11:02 AM EDT) Only the most recent of2 resultswithin the time period is included. Color, UA Yellow Clarity, UA Clear Glucose, [...] OF CARE TEST ENTER/EDIT ORDERABLES Final Result * (ABNORMAL) POCT , urine manually resulted (01/24/2025 11:39 AM EDT) Preg Test, Ur Positive Negative Urine 01/24/2025 11:3 9 AM EDT Jaspreet Adams DO POINT OF CARE TEST ENTER/EDIT OR DERABLES Final Result * US OB limited 1+ fetuses (01/24/2025 [...] II, MD, PHD at 27-Jan-2025 10:23:04 AM [facility] Procedure Note Alden Perea MD - [...] signed by ALDEN PEREA II, MD, PHD [id number] 10:23:04 AM [facility] us Jaspreet Adams DO IM OB US PROCEDURES Final Resul t from Last 3 Months
--- OUTSIDE RECORDS SUMMARY | 2025-01-29 11:50 | XMS_ITS | Encounter Summary ---
Author Organization [facility] Address [address] [facility] [place] [address] Care Team Providers Care Legal Billing Analyst Name Role Phone Unavailable Primary Care Provider Unavailabl e Encounter Details Date Type Department Care Team (Late st Contact Info) Description 01/29/2025 Bamboo flowsheet [facility] OB [address] [place] [address] Nabila Avila, CREDIT COMPLIANCE OFFICER [address] [facility] [place] [address] Social History Tobacco Use Types Packs/Day Years [...] 02/12/2025 9:00 AM EDT Clinical Support [facility] OB [address] [place] [address] 02/27/2025 8:50 AM EDT Routine [facility] OB [address] [place] [address] Jaspreet Adams, [address] [place], [place] [id number] documented as of this encounter Visit Diagnoses Not on filedocumented in this encounter
--- OUTSIDE RECORDS SUMMARY | 2025-01-29 12:00 | XMS_ITS | CCD ---
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 [facility]. provides no warranty or guarantee of the accuracy or completeness of information in this document.
--- OUTSIDE RECORDS SUMMARY | 2025-01-31 15:12 | XMS_ITS | Encounter Summary ---
Author Organization [facility] Address [address] [facility] [place] [address] Care Team Providers Care Apricot Washer Name Role Phone Unavailable Primary Care Provider Unavailabl e Encounter Details Date Type Department Care Team (Late Contact Info) Description 01/29/2025 External Result Encounter [facility] External Department Unsolicited Nabila Avila, ORNAMENTAL METALWORK DESIGNER [address] [place] [phone] Social History Tobacco Use Types Packs/Day Years [...] Support [facility] [address] [place] [phone] 02/27/2025 8:50 AM EDT Routine [facility] [address] [place] [phone] Jaspreet Adams DO [address] [place], [place] [id number] documented as of this encounter Procedures Procedure Name Priority Date/Time Associated Diagnosis Comments URINARY TRACT INFECTION (HTRX) Routine 01/29/2025 12:18 PM EDT documented in this encounter Results * URINARY TRACT INFECTION (HTRX) (01/29/2025 12:18 PM EDT) [facility] ACINETOBACTER BAUMANII 0.000 19.961 - 24.689 ppm 01/30/2025 7:35 AM EDT [facility] ACINETOBACTER BAUMANII Not Detected 19.961 - 24.689 ppm 01/30/2025 7:35 AM EDT [facility] CITROBACTER FREUNDII 0.000 23.000 - 31.881 ppm 01/30/2025 7:35 AM EDT [facility] CITROBACTER FREUNDII Not Detected 23.000 - 31.881 ppm 01/30/2025 7:35 AM EDT [facility] ENTEROBACTER AEROGENES, CLOACAE 0.000 23.000 - 31.535 ppm 01/30/2025 7:35 AM EDT [facility] ENTEROBACTER AEROGENES, CLOACAE Not Detected 23.000 - 31.535 ppm 01/30/2025 7:35 AM EDT [facility] ENTEROCOCCUS FAECALIS, FAECIUM 0.000 26.000 - 31.575 ppm 01/30/2025 7:35 AM EDT [facility] ENTEROCOCCUS FAECALIS, FAECIUM Not Detected 26.000 - 31.575 ppm 01/30/2025 7:35 AM EDT [facility] ESCHERICHIA COLI 0.000 23.000 - 28.500 ppm 01/30/2025 7:35 AM EDT [facility] ESCHERICHIA COLI Not Detected 23.000 - 28.500 ppm 01/30/2025 7:35 AM EDT [facility] KLEBSIELLA PNEUMONIAE, OXYTOCA 0.000 23.000 - 30.500 ppm 01/30/2025 7:35 AM EDT [facility] KLEBSIELLA PNEUMONIAE, OXYTOCA Not Detected 23.000 - 30.500 ppm 01/30/2025 7:35 AM EDT [facility] MORGANELLA MORGANII 0.000 19.961 - 24.689 ppm 01/30/2025 7:35 AM EDT [facility] MORGANELLA MORGANII Not Detected 19.961 - 24.689 ppm 01/30/2025 7:35 AM EDT [facility] PROTEUS MIRABILIS, VULGARIS 0.000 23.000 - 28.500 ppm 01/30/2025 7:35 AM EDT [facility] PROTEUS MIRABILIS, VULGARIS Not Detected 23.000 - 28.500 ppm 01/30/2025 7:35 AM EDT [facility] PSEUDOMONAS AERUGINOSA 0.000 23.000 - 28.500 ppm 01/30/2025 7:35 AM EDT [facility] PSEUDOMONAS AERUGINOSA Not Detected 23.000 - 28.500 ppm 01/30/2025 7:35 AM EDT [facility] STAPHYLOCOCCUS AUREUS 0.000 26.000 - 30.902 ppm 01/30/2025 7:35 AM EDT [facility] STAPHYLOCOCCUS AUREUS Not Detected 26.000 - 30.902 ppm 01/30/2025 7:35 AM EDT [facility] STREPTOCOCCUS AGALACTIAE (GROUP B STREP) 0.000 26.000 - 32.222 ppm 01/30/2025 7:35 AM EDT [facility] STREPTOCOCCUS AGALACTIAE (GROUP B STREP) Not Detected 26.000 - 32.222 ppm 01/30/2025 7:35 AM EDT [facility] MAYNOR ALBICANS, PARAPSILOSIS, TROPICALIS 0.000 19.961 - 30.770 ppm 01/30/2025 7:35 AM EDT [facility] MAYNOR ALBICANS, PARAPSILOSIS, TROPICALIS Not Detected 19.961 - 30.770 ppm 01/30/2025 7:35 AM EDT [facility] MAYNOR GLABRATA 0.000 23.000 - 32.138 ppm 01/30/2025 7:35 AM EDT [facility] MAYNOR GLABRATA Not Detected 23.000 - 32.138 ppm 01/30/2025 7:35 AM EDT [facility] MAYNOR KRUSEI 0.000 23.000 - 32.271 ppm 01/30/2025 7:35 AM EDT [facility] MAYNOR KRUSEI Not Detected 23.000 - 32.271 ppm 01/30/2025 7:35 AM EDT [facility] SERRATIA MARCESCENS 0.000 23.000 - 31.204 ppm 01/30/2025 7:35 AM EDT [facility] SERRATIA MARCESCENS Not Detected 23.000 - 31.204 ppm 01/30/2025 7:35 AM EDT [facility] STREPTOCOCCUS PYOGENES (GROUP A STREP) 0.000 19.961 - 24.689 ppm 01/30/2025 7:35 AM EDT [facility] STREPTOCOCCUS PYOGENES (GROUP A STREP) Not Detected 19.961 - 24.689 ppm 01/30/2025 7:35 AM EDT [facility] STAPHYLOCOCCUS EPIDERMIDIS, HAEMOLYTICUS, LUGDUNENSIS, SAPROPHYTICUS (URINA 0.000 19.961 - 24.689 ppm 01/30/2025 7:35 AM EDT [facility] STAPHYLOCOCCUS EPIDERMIDIS, HAEMOLYTICUS, LUGDUNENSIS, SAPROPHYTICUS (URINA Not Detected 19.961 - 24.689 ppm 01/30/2025 7:35 AM EDT [facility] STAPHYLOCOCCUS EPIDERMIDIS, HAEMOLYTICUS, LUGDUNENSIS, SAPROPHYTICUS (URINA 0.000 19.961 - 24.689 ppm 01/30/2025 7:35 AM EDT [facility] STAPHYLOCOCCUS EPIDERMIDIS, HAEMOLYTICUS, LUGDUNENSIS, SAPROPHYTICUS (URINA Not Detected 19.961 - 24.689 ppm 01/30/2025 7:35 AM EDT [facility] Urine 01/29/2025 12:1 8 PM EDT 01/30/2025 2:05 AM EDT Nabila Avila NP LAB BLOOD ORDERABLES Final Re sult [facility] [address] [place] [address] documented in this encounter Visit Diagnoses Not on filedocumented in this encounter
--- OUTSIDE RECORDS SUMMARY | 2025-01-31 15:12 | XMS_ITS | Clinical Summary ---
Author Organization [facility] Address [address] [place] [address] Care Team Providers Care Maitre D Name Role Phone Unavailable Primary Care Provider [...] Routine [facility] OB [address] [place] [address] Nabila Avila NP Second trimester ; 18 weeks gestation of 01/29/2025 External Result Encounter [facility] External Department Unsolicited Nabila Avila NP 01/29/2025 Bamboo flowsheet [facility] OB [address] [place] [address] Nabila Avila NP 01/24/2025 11:00 AM EDT Initial [facility] OB [address] [place] [address] [address] [place], [place] [address] GA: 17w3d 01/24/2025 10:30 AM EDT Ancillary Procedure [facility] OB [address] [place] [address] Missed menses 01/06/2025 Telephone [facility] OB [address] [place] [address] [address] [place], [place] [address] Kalyn Jacob MA 12/23/2024 1:30 PM EDT Office Visit [facility] [address] [place] [address] Jaspreet Adams DO Hyperemesis gravidarum; Follow-up exam 12/23/2024 Bamboo flowsheet [facility] OB [address] [place] [address] [address] [place], [place] [address] Jaspreet Adams, 12/12/2024 Abstract [facility] OB [address] [place] [address] [address] [place], [place] [phone] Jaspreet Adams DO 12/11/20[address] [facility] [address] [place] [address] Jaspreet Adams DO 12/11/2024 Abstract [facility] OB [address] [place] [address] [address] [place], [place] [phone] Jaspreet Adams, from Last 3 Months Social [...] EDT Clinical Support [facility] OB [address] [place] [place] [phone] 02/27/2025 8:50 AM EDT Routine [facility] OB [address] [place] [address] [address] [place], [place] [phone] Jaspreet Adams, DO [address] [place] [address] [address] [place], [place] [phone] Procedures Procedure Name Priority Date/Time Associated Diagnosis Comments URINARY TRACT INFECTION (HTRX) Routine 01/29/2025 12:18 PM EDT POCT URINALYSIS DIPSTICK Routine 01/29/2025 11:02 AM EDT Second trimester POCT URINALYSIS DIPSTICK Routine 01/24/2025 11:39 AM EDT Missed menses POCT , URINE Routine 01/24/2025 11:39 AM EDT Missed menses US OB LIMITED 1+ FETUSES Routine 01/24/2025 10:57 AM EDT Missed menses from Last 3 Months Results * URINARY TRACT INFECTION (HTRX) (01/29/2025 12:18 PM EDT) ACINETOBACTER BAUMANII 0.000 19.961 - 24.689 ppm 01/30/2025 7:35 AM EDT [facility] ACINETOBACTER BAUMANII Not Detected 19.961 - 24.689 ppm 01/30/2025 7:35 AM EDT [facility] CITROBACTER FREUNDII 0.000 23.000 - 31.881 ppm 01/30/2025 7:35 AM EDT [facility] CITROBACTER FREUNDII Not Detected 23.000 - 31.881 ppm 01/30/2025 7:35 AM EDT [facility] ENTEROBACTER AEROGENES, CLOACAE 0.000 23.000 - 31.535 ppm 01/30/2025 7:35 AM EDT [facility] ENTEROBACTER AEROGENES, CLOACAE Not Detected 23.000 - 31.535 ppm 01/30/2025 7:35 AM EDT [facility] ENTEROCOCCUS FAECALIS, FAECIUM 0.000 26.000 - 31.575 ppm 01/30/2025 7:35 AM EDT [facility] ENTEROCOCCUS FAECALIS, FAECIUM Not Detected 26.000 - 31.575 ppm 01/30/2025 7:35 AM EDT [facility] ESCHERICHIA COLI 0.000 23.000 - 28.500 ppm 01/30/2025 7:35 AM EDT [facility] ESCHERICHIA COLI Not Detected 23.000 - 28.500 ppm 01/30/2025 7:35 AM EDT [facility] KLEBSIELLA PNEUMONIAE, OXYTOCA 0.000 23.000 - 30.500 ppm 01/30/2025 7:35 AM EDT [facility] KLEBSIELLA PNEUMONIAE, OXYTOCA Not Detected 23.000 - 30.500 ppm 01/30/2025 7:35 AM EDT [facility] MORGANELLA MORGANII 0.000 19.961 - 24.689 ppm 01/30/2025 7:35 AM EDT [facility] MORGANELLA MORGANII Not Detected 19.961 - 24.689 ppm 01/30/2025 7:35 AM EDT [facility] PROTEUS MIRABILIS, VULGARIS 0.000 23.000 - 28.500 ppm 01/30/2025 7:35 AM EDT [facility] PROTEUS MIRABILIS, VULGARIS Not Detected 23.000 - 28.500 ppm 01/30/2025 7:35 AM EDT [facility] PSEUDOMONAS AERUGINOSA 0.000 23.000 - 28.500 ppm 01/30/2025 7:35 AM EDT [facility] PSEUDOMONAS AERUGINOSA Not Detected 23.000 - 28.500 ppm 01/30/2025 7:35 AM EDT [facility] STAPHYLOCOCCUS AUREUS 0.000 26.000 - 30.902 ppm 01/30/2025 7:35 AM EDT [facility] STAPHYLOCOCCUS AUREUS Not Detected 26.000 - 30.902 ppm 01/30/2025 7:35 AM EDT [facility] STREPTOCOCCUS AGALACTIAE (GROUP B STREP) 0.000 26.000 - 32.222 ppm 01/30/2025 7:35 AM EDT [facility] STREPTOCOCCUS AGALACTIAE (GROUP B STREP) Not Detected 26.000 - 32.222 ppm 01/30/2025 7:35 AM EDT [facility] MAYNOR ALBICANS, PARAPSILOSIS, TROPICALIS 0.000 19.961 - 30.770 ppm 01/30/2025 7:35 AM EDT [facility] MAYNOR ALBICANS, PARAPSILOSIS, TROPICALIS Not Detected 19.961 - 30.770 ppm 01/30/2025 7:35 AM EDT [facility] MAYNOR GLABRATA 0.000 23.000 - 32.138 ppm 01/30/2025 7:35 AM EDT [facility] MAYNOR GLABRATA Not Detected 23.000 - 32.138 ppm 01/30/2025 7:35 AM EDT [facility] MAYNOR KRUSEI 0.000 23.000 - 32.271 ppm 01/30/2025 7:35 AM EDT [facility] MAYNOR KRUSEI Not Detected 23.000 - 32.271 ppm 01/30/2025 7:35 AM EDT [facility] SERRATIA MARCESCENS 0.000 23.000 - 31.204 ppm 01/30/2025 7:35 AM EDT [facility] SERRATIA MARCESCENS Not Detected 23.000 - 31.204 ppm 01/30/2025 7:35 AM EDT [facility] STREPTOCOCCUS PYOGENES (GROUP A STREP) 0.000 19.961 - 24.689 ppm 01/30/2025 7:35 AM EDT [facility] STREPTOCOCCUS PYOGENES (GROUP A STREP) Not Detected 19.961 - 24.689 ppm 01/30/2025 7:35 AM EDT [facility] STAPHYLOCOCCUS EPIDERMIDIS, HAEMOLYTICUS, LUGDUNENSIS, SAPROPHYTICUS (URINA 0.000 19.961 - 24.689 ppm 01/30/2025 7:35 AM EDT [facility] STAPHYLOCOCCUS EPIDERMIDIS, HAEMOLYTICUS, LUGDUNENSIS, SAPROPHYTICUS (URINA Not Detected 19.961 - 24.689 ppm 01/30/2025 7:35 AM EDT [facility] STAPHYLOCOCCUS EPIDERMIDIS, HAEMOLYTICUS, LUGDUNENSIS, SAPROPHYTICUS (URINA 0.000 19.961 - 24.689 ppm 01/30/2025 7:35 AM EDT [facility] STAPHYLOCOCCUS EPIDERMIDIS, HAEMOLYTICUS, LUGDUNENSIS, SAPROPHYTICUS (URINA Not Detected 19.961 - 24.689 ppm 01/30/2025 7:35 AM EDT [facility] Urine 01/29/2025 12:1 8 PM EDT 01/30/2025 2:05 AM EDT us Nabila Avila ASSISTANT CORPORATE SECRETARY LAB BLOOD ORDERABLES Final [facility] [address] [place] [address] * (ABNORMAL) POCT urinalysis dipstick manually resulted [...] II, MD, PHD at 27-Jan-2025 10:23:04 AM [facility] Procedure Note Alden Perea MD - [...] signed by ALDEN PEREA II, MD, PHD [id number] 10:23:04 AM [facility] us Jaspreet Adams DO IM OB US PROCEDURES Final Resul t from Last 3 Months
--- OUTSIDE RECORDS SUMMARY | 2025-01-31 15:12 | XMS_ITS | Encounter Summary ---
Author Organization [facility] Address [address] [facility] [place] [address] Care Team Providers Care Dyer Assistant Name Role Phone Unavailable Primary Care Provider Unavailabl e Encounter Details Date Type Department Care Team (Late Contact Info) Description 12/12/2024 Abstract [facility] OB [address] [place], [place] [phone] Jaspreet Adams DO [address] [place], [facility] Social History Tobacco Use Types Packs/Day Years [...] 02/12/2025 9:00 AM EDT Clinical Support [facility] OB [address] [place] [phone] 02/27/2025 8:50 AM EDT Routine [facility] [address] [place] [address] Jaspreet Adams DO [address] [place], [place] [phone] documented as of this encounter Visit Diagnoses Not on filedocumented in this encounter
--- OUTSIDE RECORDS SUMMARY | 2025-01-31 15:12 | XMS_ITS | Encounter Summary ---
Author Organization [facility] Address [address] [facility] [place] [address] Care Team Providers Care Day Care Worker Name Role Phone Unavailable Primary Care Provider Unavailabl e Encounter Details Date Type Department Care Team (Late st Contact Info) Description 01/29/2025 Bamboo flowsheet [facility] OB [address] [place] [address] Nabila Avila, EAR FLAP BINDER [address] [place] [address] Social History Tobacco Use Types Packs/Day [...] 02/12/2025 9:00 AM EDT Clinical Support [facility] OB [address] [place] [address] 02/27/2025 8:50 AM EDT Routine [facility] [address] [place] [address] Jaspreet Adams, [address] [place], [place] [phone] documented as of this encounter Visit Diagnoses Not on filedocumented in this encounter
--- OUTSIDE RECORDS SUMMARY | 2025-01-31 15:13 | XMS_ITS | Patient Health Record ---
Author Organization [facility] [facility] Address [address] [address] Care Team Providers Care Tower Hoist Operator Name Role Phone Yissel Butler Primary Care [...] MEDICAL [address]AC[address] [address] [place] [address] [phone] JORGE ALBERTO LUNA Self - patient is the insured 2 Medical (General) History Medical History History ICD Code Polycystic Kidney Disease Hospitalization History Reason Date(Month/Year) Hyperemesis 06/2021
[2025-01-31 15:42] LABS: BOX Test Reference Lab UNITY; BOX Test Sent Out UNITY BOX
[2025-01-31 15:47] LABS: Basophils Absolute Auto 0.1 10^3/uL (0.0-0.1); Basophils Percent Auto 0.5 % (0.2-2.0); Eosinophils Absolute Auto 0.1 10^3/uL (0.0-0.7); Eosinophils Percent Auto 0.8 % (0.9-7.0); Hematocrit 37.9 % (36.0-48.0); Hemoglobin 13.7 g/dL (12.0-16.0); Immature Granulocytes Abs Auto 0.06 10^3/uL (0.00-0.03); Immature Granulocytes Pct Auto 0.6 % (0.0-0.5); Lymphocytes Absolute Auto 2.1 10^3/uL (1.2-3.8); Lymphocytes Percent Auto 19.3 % (20.5-60.0); Mean Corpuscular HGB Conc 36.1 g/dL (29.9-35.2); Mean Corpuscular Hemoglobin 31.9 pg (26.7-34.0); Mean Corpuscular Volume 88.1 fL (81.0-99.0); Mean Platelet Volume 9.5 fL (9.5-13.5); Monocytes Absolute Auto 0.7 10^3/uL (0.3-0.8); Monocytes Percent Auto 6.6 % (1.7-12.0); Neutrophils Absolute Auto 7.8 10^3/uL (1.4-6.5); Neutrophils Percent Auto 72.2 % (43.0-75.0); Platelet Count 332 10^3/uL (150-450); Red Cell Distribution Width 12.5 % (11.0-15.0); White Blood Count 10.8 10^3/uL (4.0-11.0)
[2025-01-31 15:59] LABS: Amphetamine Screen Urine NEGATIVE (NEGATIVE); Barbiturates Screen Urine NEGATIVE (NEGATIVE); Benzodiazepines Screen Urine NEGATIVE (NEGATIVE); Buprenorphine Screen Urine NEGATIVE (NEGATIVE); Cannabinoid Screen Urine POSITIVE (NEGATIVE); Cocaine Screen Urine NEGATIVE (NEGATIVE); Methadone Screen Urine NEGATIVE (NEGATIVE); Methamphetamines Screen Urine NEGATIVE (NEGATIVE); Opiate Screen Urine NEGATIVE (NEGATIVE); Oxycodone Screen Urine NEGATIVE (NEGATIVE); Phencyclidine Screen Urine NEGATIVE (NEGATIVE); Tricyclic Antidepressant Urine NEGATIVE (NEGATIVE)
[2025-01-31 16:21] LABS: Estimated Average Glucose 94 mg/dL; Glycohemoglobin A1C 4.9 % (4.5-6.2)
[2025-02-01 02:07] LABS: HIV Ab/p24 Ag Screen Non Reactive (Non Reactive)
[2025-02-01 04:07] LABS: HBsAg Screen Negative (Negative); HCV Ab Non Reactive (Non Reactive)
[2025-02-01 06:08] LABS: Rubella Antibodies, IgG 7.29 index (Immune >0.99)
[2025-02-01 13:08] LABS: Rapid Plasma Reagin, Quant Non Reactive titer (NonRea<1:1)
[2025-02-02 01:07] LABS: Gest. Age on Collection Date 18.4 weeks (.); Gestat. Age Based On Ultrasound (.); Insulin Dep Diabetes No (.); Maternal Age At EDD 27.5 yr (.); OSBR Risk 1 IN 10000 (.); Results Report (.)
[2025-02-06 13:08] LABS: Cannabinoid Positive (.); Carboxy THC Conf, MS, UR >750 ng/mL (Cutoff=10)
== END 2025-01-31 15:11 | disposition home or self-care (01) ==
LOC: LAB 15:10
PROVIDERS: Visit Provider Obstetrics & Gynecology
DX: Z34.92 Encounter for supervision of normal pregnancy, unspecified, second trimester (principal); Z36.0 Encounter for antenatal screening for chromosomal anomalies; Z3A.17 17 weeks gestation of pregnancy; N92.6 Irregular menstruation, unspecified
CPT/HCPCS: 36415; 80307; 80349; 82105; 83036; 85025; 86592; 86762; 86803; 86850; 86900; 86901; 87086; 87340; 87389

== ENCOUNTER 2025-03-05 14:58 | Outpatient (REF) | payer SELFPAY ==
--- OUTSIDE RECORDS SUMMARY | 2025-02-19 08:00 | XMS_ITS | Encounter Summary ---
Author Organization [facility] Address [address] [facility] [place] [address] Care Team Providers Care Director Labor Standards Name Role Phone Unavailable Primary Care Provider Unavailabl e Encounter Details Date Type Department Care Team (Latest Contact Info) Description 02/19/2025 8:00 AM EDT Ancillary Procedure [facility] [address] [place] [address] Second trimester ([facility]); Screening, , for anatomic survey ([facility]) Social History Tobacco Use Types Packs/Day Years [...] Care Team (Late st Contact Info) Description 03/19/2025 9:30 AM EDT Ancillary Procedure [facility] [address] [place] [address] 04/03/2025 10:40 AM EDT Routine [facility] [address] [place] [address] Jaspreet Adams, DO [address] [place], [place] [id number] documented as of this encounter Procedures Procedure Name Priority Date/Time Associated Diagnosis Comments US OB 14+ WEEKS ANATOMY SCAN Routine 02/19/2025 8:54 AM EDT Second trimester ([facility]) Screening, , for anatomic survey ([facility]) documented in this encounter Results * US OB 14+ weeks anatomy scan (02/19/2025 8:54 AM EDT) Anatomical Region Laterality Modality Body Ultrasound 02/20/2025 9:48 AM EDT Narrative 02/20/2025 9:48 AM EDT EXAM: US OB 14+ WEEKS ANATOMY SCAN HISTORY: anatomy. COMPARISON: Ob ultrasound 01/24/2025. TECHNIQUE: Two-dimensional transabdominal grayscale ultrasound imaging of the pelvis was performed. FINDINGS: Gestation: Single Presentation: Cephalic Cardiac Activity: 153 beats per minute Placental Location: Posterior with no sonographic abnormalities identified. Distance from Placental Tip to Cervix: 3.7 cm Cervical Length: 5.1 cm Amniotic Fluid: Appears adequate MEASUREMENTS: BPD: 5.1 cm EGA: 21 weeks 4 days HC: 18.9 cm EGA: 21 weeks 1 days AC: 16.9 cm EGA: 21 weeks 6 days FL: 3.6 cm EGA: 21 weeks 2 days HC/AC Ratio: 1.12 The gestational age by today's ultrasound is 21 weeks 3 days (+/- 11 days gestation). Estimated Weight: 435 grams, +/- 65 grams ( 0 lb 15 oz). Weight Percentile for gestational age: 69 % ANATOMY C-Spine: Unremarkable T-Spine: Unremarkable L-Spine: Unremarkable Sacrum: Unremarkable Four Chamber Heart: Not well visualized LVOT: Not visualized RVOT: Not visualized Stomach: Unremarkable Kidneys: Unremarkable Bladder: Unremarkable Diaphragm: Unremarkable Cord insertion: Unremarkable Cord vessels: Three Lateral Ventricles: Unremarkable Cerebellum: Unremarkable Cisterna Magna: Unremarkable Posterior Fossa: Unremarkable Right Femur: Unremarkable Left Femur: Unremarkable Right Tib/Fib: Unremarkable Left Tib/Fib: Unremarkable Right Rad/Ulnar: Unremarkable Left Rad/Ulnar: Unremarkable Right Humerus: Unremarkable Left Humerus: Unremarkable Nose/Lips: Unremarkable Profile: Unremarkable Orbits: Unremarkable IMPRESSION: 1. Single, live intrauterine gestation 21 weeks, 1 days by LMP. Today's ultrasound measurements correlate with a gestational age of 21 weeks 3 days. Estimated weight is 435 grams, +/- 65 grams ( 0 lb 15 oz) which correlates to 69 %. SOFIA by today's ultrasound is 06/29/2025. 2. Unremarkable anatomy with limited visualization of the four-chamber heart and outflow tracts. A short-term follow-up ultrasound is recommended. Interpreted by: Electronically signed by ALDEN PEREA II, MD, PHD at 20-Feb-2025 09:47:05 AM [facility] Procedure Note Alden Perea MD - 02/20/2025 EXAM: US OB 14+ WEEKS ANATOMY SCAN HISTORY: anatomy. COMPARISON: Ob ultrasound 01/24/2025. TECHNIQUE: Two-dimensional transabdominal grayscale ultrasound imaging ofthe pelvis was performed. FINDINGS: Gestation: Single Presentation: Cephalic Cardiac Activity: 153 beats per minute Placental Location: Posterior with no sonographic abnormalitiesidentified. Distance from Placental Tip to Cervix: 3.7 cm Cervical Length: 5.1 cm Amniotic Fluid: Appears adequate MEASUREMENTS: BPD: 5.1 cm EGA: 21 weeks 4 days HC: 18.9 cm EGA: 21 weeks 1 days AC: 16.9 cm EGA: 21 weeks 6 days FL: 3.6 cm EGA: 21 weeks 2 days HC/AC Ratio: 1.12 The gestational age by today's ultrasound is 21 weeks 3 days (+/- 11 daysgestation). Estimated Weight: 435 grams, +/- 65 grams ( 0 lb 15 oz). Weight Percentile for gestational age: 69 % ANATOMY C-Spine: Unremarkable T-Spine: Unremarkable L-Spine: Unremarkable Sacrum: Unremarkable Four Chamber Heart: Not well visualized LVOT: Not visualized RVOT: Not visualized Stomach: Unremarkable Kidneys: Unremarkable Bladder: Unremarkable Diaphragm: Unremarkable Cord insertion: Unremarkable Cord vessels: Three Lateral Ventricles: Unremarkable Cerebellum: Unremarkable Cisterna Magna: Unremarkable Posterior Fossa: Unremarkable Right Femur: Unremarkable Left Femur: Unremarkable Right Tib/Fib: Unremarkable Left Tib/Fib: Unremarkable Right Rad/Ulnar: Unremarkable Left Rad/Ulnar: Unremarkable Right Humerus: Unremarkable Left Humerus: Unremarkable Nose/Lips: Unremarkable Profile: Unremarkable Orbits: Unremarkable IMPRESSION: 1. Single, live intrauterine gestation 21 weeks, 1 days by LMP. Today'sultrasound measurements correlate with a gestational age of 21 weeks 3days. Estimated weight is 435 grams, +/- 65 grams ( 0 lb 15 oz)which correlates to 69 %. SOFIA by today's ultrasound is 06/29/2025. 2. Unremarkable anatomy with limited visualization of thefour-chamber heart and outflow tracts. A short-term follow-up ultrasoundis recommended. Interpreted by: Electronically signed by ALDEN PERAE II, MD, PHD [id number] 09:47:05 AM [facility] us Nabila Avila NP IMG OB US PROCEDURES Final Re sult documented in this encounter Visit Diagnoses Diagnosis Second trimester ([facility]) state, incidental Screening, , for anatomic survey ([facility]) Encounter for anatomic survey documented in this encounter
--- OUTSIDE RECORDS SUMMARY | 2025-03-05 11:00 | XMS_ITS | Encounter Summary ---
Author Organization [facility] Address [address] [facility] [place] [address] Care Team Providers Care Pharmacy Specialist Name Role Phone Unavailable Primary Care Provider Unavailabl e Reason for Visit * Reason Comments Routine Visit Encounter Details Date Type Department Care Team (Latest Contact Info) Description 03/05/2025 11:00 AM EDT Routine [facility] OB [address] [place] [phone] Jaspreet Adams DO [address] [place] [address] Second trimester ([facility]); 23 weeks gestation of ([facility]); Diabetes mellitus screening; Well woman exam with routine gynecological exam; Other insomnia Social History Tobacco Use Types Packs/Day Years [...] Sign Reading Time Taken Comments Blood Pressure 128/78 03/05/2025 11:16 AM EDT Pulse - - Temperature - - Respiratory Rate - - Oxygen Saturation - - Inhaled Oxygen Concentration - - Weight 86.2 kg (190 lb) 03/05/2025 11:16 AM EDT Height - - Body Mass Index 31.62 12/01/2020 12:00 PM EDT documented in this encounter Progress Notes * Rahel Pendleton LPN - 03/05/2025 11:00 AM EDT Reason for Appointment: Patient ID: Chente Gonzalez is a 29 y.o. female who presents for Routine Visit Patient presents today for Annual Exam. and Return OB appointment. MEDICATIONS Current Outpatient Medications Medication Instructions Klor-Con 20 MEQ packet DISSOLVE 1 PACKET IN 4 OZ OF WATER OR OTHER BEVERAGE AND DRINK DAILY FOR 7 DAYS metoclopramide (Reglan) 10 MG tablet TAKE 1 TABLET ORALLY EVERY 8 HOURS NEEDED FOR NAUSEA AND VOMITING Multiple Vitamin (multivitamin) tablet 1 tablet, Daily promethazine (Phenergan) 25 MG tablet TAKE 1 TABLET BY MOUTH TWICE A DAY NEEDED FOR NAUSEA ALLERGIES Allergies Allergen Reactions Penicillins Other Reaction(s): [...] No family history on file. SURGICAL HISTORY History reviewed. No pertinent surgical history. REVIEW OF SYSTEMS Review of Systems: Review of Systems Constitutional: Negative. HENT: Negative. Eyes: Negative. Respiratory: Negative. Cardiovascular: Negative. Gastrointestinal: Negative. Genitourinary: Negative. Musculoskeletal: Negative. Skin: Negative. Neurological: Negative. All other systems reviewed and are negative. Hematological: Negative. Endocrine: Negative. Allergic/Immunologic: Negative. OBJECTIVE Objective: Physical Exam Constitutional: Appearance: Normal appearance. She is well-developed. Genitourinary: Vulva normal. Cardiovascular: Rate and Rhythm: Normal rate and [...] nursing note reviewed. Exam conducted with a pmo business analyst present. Vitals: Estimated body mass index is 31.62 kg/m?? as calculated from the following: Height as of 12/01/20: 5' 5 . Weight as of this encounter: 190 lb. BP: 128/78 Patient's last menstrual period was 10/04/2024 (approximate). ASSESSMENT & PLAN ICD-10-CM 1. Second trimester ([facility]) Z34.92 POCT urinalysis dipstick manually resulted 2. 23 weeks gestation of ([facility]) Z3A.23 3. Diabetes mellitus screening Z13.1 CBC Glucose tolerance, 1 hour CBC Glucose tolerance, 1 hour 4. Well woman exam with routine gynecological exam Z01.419 Pap Smear Return OB/Annual Exam: Patient presents today for a annual exam/routine obstetrics appointment. Patient is currently [id number]. Patient states she is doing well but has complaints of nausea in the morning. Pap was obtained without difficulty and patient was given orders for repeat anatomy scan and glucola and CBC jennifer obtained. Pt has inability to sleep rx for unisom faxed to pharmacy. Orders Placed This Encounter Procedures CBC Glucose tolerance, 1 hour POCT urinalysis dipstick manually resulted Follow Up: Patient is to schedule annual exam for next year and return to office in 4 weeks for OB appointment. Documented by Rahel Pendleton LPN on behalf of: Jaspreet Adams DO documented in this encounter Plan of Treatment Upcoming Encounters Date Type Department Care Team (Late st Contact Info) Description 03/19/2025 9:30 AM EDT Ancillary Procedure [facility] OB [address] [place] [phone] 04/03/2025 10:40 AM EDT Routine [facility] OB [address] [place] [address] Jaspreet Adams DO [address] [place] [address] Scheduled Orders Name Type Priority Associated Diagnoses Orde r Schedule Pap Smear Pathology and Cytology Routine Well woman exam with routine gynecological exam Ordered: 03/05/2025 CBC Lab Routine Diabetes mellitus screening Expected: 03/05/2025 (Approximate), Expires: 03/05/2026 Glucose tolerance, 1 hour Lab Routine Diabetes mellitus screening Expected: 03/05/2025 (Approximate), Expires: 03/05/2026 documented as of this encounter Procedures Procedure Name Priority Date/Time Associated Diagnosis Comments POCT URINALYSIS DIPSTICK Routine 03/05/2025 11:17 AM EDT Second trimester ([facility]) documented in this encounter Results * POCT urinalysis dipstick manually resulted (03/05/2025 11:17 AM EDT) Color, UA Yellow Clarity, UA Clear Glucose, UA Negative Negative - 2000(110) ++++ mg/dL Bilirubin, UA Negative Negative - 4(70) +++ mg/dL Ketones, UA Negative Negative - 160(16) ++++ mg/dL Spec Grav, UA 1.010 1 - 1.03 Blood, UA Negative Negative - 50 Derick/mcL pH, UA 6.0 5 - 9 Protein, UA Negative Negative - 2000(20) ++++ mg/dL Urobilinogen, UA 0.2 0.2 - 12 mg/dL Leukocytes, UA Negative Negative - 500+++ Julio/mcL Nitrite, UA Negative Negative - Positive Urine 03/05/2025 11:1 7 AM EDT Jaspreet Adams DO POINT OF CARE TEST ENTER/EDIT OR DERABLES Final Result documented in this encounter Visit Diagnoses Diagnosis Second trimester ([facility]) state, incidental 23 weeks gestation of ([facility]) Diabetes mellitus screening Screening for diabetes mellitus Well woman exam with routine gynecological exam Routine gynecological examination Other insomnia documented in this encounter
--- OUTSIDE RECORDS SUMMARY | 2025-03-05 15:07 | XMS_ITS | Encounter Summary ---
Author Organization [facility] Address [address] [facility] [place] [address] Care Team Providers Care Canal Superintendent Name Role Phone Unavailable Primary Care Provider Unavailabl e Encounter Details Date Type Department Care Team (Late Contact Info) Description 12/11/2024 Abstract [facility] OB [address] [place] [phone] Jaspreet Adams DO [address] [place], [facility] Social History Tobacco Use Types Packs/Day [...] Department Care Team (Late Contact Info) Description 03/19/2025 9:30 AM EDT Ancillary Procedure [facility] OB [address] [place] [phone] 04/03/2025 10:40 AM EDT Routine [facility] [address] [place] [phone] Jaspreet Adams DO [address] [place], [place] [id number] documented as of this encounter Visit Diagnoses Not on filedocumented in this encounter
--- OUTSIDE RECORDS SUMMARY | 2025-03-05 15:07 | XMS_ITS | Encounter Summary ---
Author Organization [facility] Address [address] [facility] [place] [address] Care Team Providers Care Street Cleaning Equipment Operator Name Role Phone Unavailable Primary Care Provider Unavailabl e Encounter Details Date Type Department Care Team (Late Contact Info) Description 12/12/2024 Abstract [facility] OB [address] [place] [phone] Jaspreet Adams DO [address] [place], [facility] Social History Tobacco Use Types Packs/Day Years [...] 03/19/2025 9:30 AM EDT Ancillary Procedure [facility] OB [address] [place] [phone] 04/03/2025 10:40 AM EDT Routine [facility] [address] [place] [phone] Jaspreet Adams DO [address] [place], [place] [id number] documented as of this encounter Visit Diagnoses Not on filedocumented in this encounter
--- OUTSIDE RECORDS SUMMARY | 2025-03-05 15:07 | XMS_ITS | Encounter Summary ---
Author Organization [facility] Address [address] [facility] [place] [address] Care Team Providers Care Visual Education Teacher Name Role Phone Unavailable Primary Care Provider Unavailabl e Encounter Details Date Type Department Care Team (Late Contact Info) Description 01/31/2025 Abstract [facility] OB [address] [place] [phone] Jaspreet Adams, DO [address] [place], [facility]11 Social History Tobacco Use Types Packs/Day Years [...] Procedure [facility] [address] [place] [address] 04/03/2025 10:40 AM EDT Routine [facility] OB [address] [place] [address] Jaspreet Adams, DO [address] [place], [facility] documented as of this encounter Visit Diagnoses Not on filedocumented in this encounter
--- OUTSIDE RECORDS SUMMARY | 2025-03-05 15:07 | XMS_ITS ---
Author Organization [facility] (ClinicalSummary Clone) Address Unknown Care Team Providers Care Machine Sprayer Name Role Phone Unavailable Primary Care Physician Unavailab le Results * [UNITY] ANEUPLOIDY NIPT Performed by: [id number] Value Range Date Fraction 5.6% 02/06/2025 10 :43 pm UTC Rh(D) NIPT RhD DETECTED 02/06/2025 10:4 3 pm UTC Sex Chromosome Aneuploidy NOT DETECTED 10:43 pm UTC Monosomy X LOW RISK <1 in 10,000 2024 10:43 pm UTC Trisomy 13 LOW RISK <1 in 10,000 2024 10:43 pm UTC Trisomy 18 LOW RISK <1 in 10,000 2024 10:43 pm UTC Trisomy 21 LOW RISK <1 in 10,000 2024 10:43 pm UTC Sex FEMALE 02/06/2025 10:4 3 pm UTC Gestation HARTMANN 02/07/20 10:43 pm UTC For detailed report, see PDF See PDF 02/06/2025 10:43 pm UTC 02/06/2025 10:4 3 pm UTC Social History Observation Value Start Date End Date
--- OUTSIDE RECORDS SUMMARY | 2025-03-05 15:07 | XMS_ITS | Encounter Summary ---
Author Organization [facility] Address [address] [place] [address] Care Team Providers Care Sectionizer Name Role Phone Unavailable Primary Care Provider Unavailabl e Encounter Details Date Type Department Care Team ([facility] st Contact Info) Description 02/24/2025 Telephone [facility] OB [address] [place] [address] Jaspreet Adams, DO [address] [place], [facility]11 Social History Tobacco Use Types Packs/Day [...] on file documented as of this encounter Miscellaneous Notes * Telephone Encounter - Marybel Blair LPN - 02/25/2025 10:29 AM EDT Patient was called made aware and she did voice understanding and she was transferred to clerical to schedule. * Telephone Encounter - Marybel Blair LPN - 02/24/2025 12:05 PM EDT Patient had called the office and was to be transferred back to go over results did not receive transfer, patient was called and asked to return call to advise of ultrasound in 4 weeks for repeat anatomy screen. * Telephone Encounter - Marybel Blair LPN - 02/24/2025 9:27 AM EDT Patient was called and a voicemail was left for the patient to return call to the office to go overresults. documented in this encounter Plan of Treatment Upcoming Encounters Date Type Department Care Team (Late st Contact Info) Description 03/19/2025 9:30 AM EDT Ancillary Procedure [facility] OB [address] [place] [phone] 04/03/2025 10:40 AM EDT Routine [facility] [address] [facility] [place] [place] [phone] Jaspreet Adams, DO [address] [place] [address] Scheduled Orders Name Type Priority Associated Diagnoses Orde r Schedule US OB limited 1+ fetuses Imaging Routine Encounter for follow-up ultrasound of anatomy ([facility]) Expected: 02/25/2025 (Approximate), Expires: 05/27/2025 documented as of this encounter Visit Diagnoses Diagnosis Encounter for follow-up ultrasound of anatomy ([facility]) documented in this encounter
--- OUTSIDE RECORDS SUMMARY | 2025-03-05 15:08 | XMS_ITS | Clinical Summary ---
Author Organization [facility] Healthcare Address [address] [place] [address] Care Team Providers Care Route Sales Specialist Name Role Phone Unavailable Primary Care Provider Unavailabl e Allergies Active Allergy Reactions Criticality Noted Date Comments Penicillins 12/23/2024 Other Reaction(s): Unknown Medications Multiple Vitamin (multivitamin) tablet Take 1 tablet by mouth Daily Active metoclopramide (Reglan) 10 MG tablet TAKE 1 TABLET ORALLY EVERY 8 HOURS NEEDED FOR NAUSEA AND VOMITING 01/05/2025 Active Klor-Con 20 MEQ packet DISSOLVE 1 PACKET IN 4 OZ OF WATER OR OTHER BEVERAGE AND DRINK DAILY FOR 7 DAYS 11/19/2024 Active promethazine (Phenergan) 25 MG tablet TAKE 1 TABLET BY MOUTH TWICE A DAY NEEDED FOR NAUSEA 12/08/2024 Active doxylamine (Unisom) 25 MG tabletIndicatio ns:Other insomnia Take 1 tablet (25 mg) by mouth as needed at bedtime for sleep 30 tablet 03/05/2025 04/04/20 25 Active Encounters Date Type Department Care Team Description 03/05/2025 11:00 AM EDT Routine [facility] [address] [place] [address] Jaspreet Adams DO Second trimester ([facility]); 23 weeks gestation of ([facility]); Diabetes mellitus screening; Well woman exam with routine gynecological exam; Other insomnia 03/05/2025 Abstract [facility] [address] [place] [address] Kalyn Jacob MA 03/05/2025 Bamboo flowsheet [facility] [address] [place] [address] Jaspreet Adams, DO 02/24/[address] [facility] [address] [place] [address] Jaspreet Adams, DO 02/19/2025 8:00 AM EDT Ancillary Procedure [facility] [address] [place] [address] Second trimester ([facility]); Screening, , for anatomic survey ([facility]) 02/12/2025 9:00 AM EDT Clinical Support [facility] [address] [place] [address] Second trimester ([facility]); 20 weeks gestation of ([facility]); Blood pressure check; Screening, , for anatomic survey ([facility]) 01/31/[address] [facility] [address] [place] [address] Jaspreet Adams, DO 01/31/2025 Clinisync Result Encounter [facility] External Department Unsolicited Jaspreet Adams, DO 01/29/2025 10:20 AM EDT Routine [facility] [address] [place] [address] Nabila Avila NP Second trimester ([facility]); 18 weeks gestation of ([facility]) 01/29/2025 External Result Encounter [facility] External Department Unsolicited Nabila Avila NP 01/29/2025 Bamboo flowsheet [facility] [address] [place] [address] Nabila Avila NP 01/24/2025 11:00 AM EDT Initial [facility] [address] [place] [address] GA: 17w3d 01/24/2025 10:30 AM EDT Ancillary Procedure [facility] [address] [place] [address] Missed menses 01/06/[address] [facility] [address] [place] [address] Kalyn Jacob MA 12/23/2024 1:30 PM EDT Office Visit [facility] [address] [place] [address] Jaspreet Adams DO Hyperemesis gravidarum ([facility]); Follow-up exam 12/23/2024 Bamboo flowsheet [facility] [address] [place] [address] Jaspreet Adams, 12/12/2024 Abstract [facility] [address] [place] [address] Jaspreet Adams DO 12/11/[address] [facility] [address] [place] [address] Jaspreet Adams, 12/11/2024 Abstract [facility] [address] [place] [address] Jaspreet Adams DO from Last 3 Months Social History Tobacco [...] (190 lb) 03/05/2025 11:16 AM EDT Height 165.1 cm (5' 5 ) 12/01/2020 12:00 PM EDT Body Mass Index 31.62 12/01/2020 12:00 PM EDT Plan of Treatment Upcoming Encounters Date Type Department Care Team (Late st Contact Info) Description 03/19/2025 9:30 AM EDT Ancillary Procedure [facility] [address] [facility] [place] [address] [place] [address] 04/03/2025 10:40 AM EDT Routine [facility] [address] [facility] [place] [address] Jaspreet Adams, DO [address] [place] [address] Procedures Procedure Name Priority Date/Time Associated Diagnosis Comments POCT URINALYSIS DIPSTICK Routine 03/05/2025 11:17 AM EDT Second trimester ([facility]) US OB 14+ WEEKS ANATOMY SCAN Routine 02/19/2025 8:54 AM EDT Second trimester ([facility]) Screening, , for anatomic survey ([facility]) AFP, SERUM, OPEN SPINA BIFIDA Routine 01/31/2025 3:28 PM EDT HBSAG SCREEN Routine 01/31/2025 3:28 PM EDT RAPID PLASMA REAGIN, QUANT Routine 01/31/2025 3:28 PM EDT HCV ANTIBODY RFX TO QUANT PCR Routine 01/31/2025 3:28 PM EDT ALL RUBELLA IGG AB Routine 01/31/2025 3: 28 PM EDT HIV AB/P24 AG WITH REFLEX Routine 01/31/2025 3:28 PM EDT MLR HEMOGLOBIN A1C Routine 01/31/2025 3: 28 PM EDT ALL TYPE AND SCREEN Routine 01/31/2025 3 :28 PM EDT ALL CBC WITH AUTO DIFF Routine 01/31/2025 3:28 PM EDT BOX TEST Routine 01/31/2025 3:28 PM EDT CANNABINOID CONF, MS, UR Routine 01/31/2025 3:15 PM EDT TBH DRUG SCREEN RAPID (URINE) Routine 01/31/2025 3:15 PM EDT URINARY TRACT INFECTION (HTRX) Routine 01/29/2025 12:18 PM EDT POCT URINALYSIS DIPSTICK Routine 01/29/2025 11:02 AM EDT Second trimester ([facility]) POCT URINALYSIS DIPSTICK Routine 01/24/2025 11:39 AM EDT Missed menses POCT , URINE Routine 01/24/2025 11:39 AM EDT Missed menses US OB LIMITED 1+ FETUSES Routine 01/24/2025 10:57 AM EDT Missed menses from Last 3 Months Results * POCT urinalysis dipstick manually resulted (03/05/2025 11:17 AM EDT) Only the most recent of3 resultswithin the time period is included. Color, UA Yellow Clarity, UA Clear Glucose, UA Negative Negative - 1999(110) ++++ mg/dL Bilirubin, UA Negative Negative - 4(70) +++ mg/dL Ketones, UA Negative Negative - 160(16) ++++ mg/dL Spec Grav, UA 1.010 1 - 1.03 Blood, UA Negative Negative - 50 Derick/mcL pH, UA 6.0 5 - 9 Protein, UA Negative Negative - 1999(20) ++++ mg/dL Urobilinogen, UA 0.2 0.2 - 12 mg/dL Leukocytes, UA Negative Negative - 500+++ Julio/mcL Nitrite, UA Negative Negative - Positive Urine 03/05/2025 11:1 7 AM EDT Jaspreet Adams DO POINT OF CARE TEST ENTER/EDIT OR DERABLES Final Result * US OB 14+ weeks anatomy scan [...] II, MD, PHD at 20-Feb-2025 09:47:05 AM [facility] Procedure Note Alden Perea MD - [...] signed by ALDEN PEREA II, MD, PHD 09:47:05 AM [facility] us Nabila Avila SKIN DRIER IMG OB US PROCEDURES Final Re sult * BOX TEST (01/31/2025 3:28 PM EDT) [facility] BOX TEST SENT OUT [address] [facility] [address] [facility] [address] 01/31/25 [facility] 01/31/2025 3:28 PM EDT 01/31/2025 3:33 PM EDT Narrative CLINISYWY - 01/31/2025 3:42 PM EDT [facility] Result [facility] Jaspreet Angie DO LAB BLOOD ORDERABLES Final Resul t Performing Organization Address [facility] Co de Phone Number [facility] * HBSAG SCREEN (01/31/2025 3:28 PM EDT) [facility] HBSAG SCREEN Negative Negative [facility] Comment: Performed at: [facility] [address] [id number] [employer] Operator: Rome Musa PhD, Phone: [phone] 01/31/2025 3:28 PM EDT 01/31/2025 3:33 PM EDT Narrative CLINISYNC - 02/01/2025 1:08 PM EDT Jaspreet Angie DO LAB BLOOD ORDERABLES Final Resul t Performing Organization Address City/[facility] Co de Phone Number [facility] * RAPID PLASMA REAGIN, QUANT (01/31/2025 3:28 PM EDT) [facility] RAPID PLASMA REAGIN, QUANT Non Reactive NonRea<1: 1 titer [facility] Comment: Please Note: This test does not meet current guidelines for screening and diagnosis of syphilis. This test is intended for following treatment response in patients being treated for syphilis infection. To screen for syphilis infection, a reflex cascade that includes both RPR and a treponema-specific assay should be utilized, such as Treponema pallidum (Syphilis) Screening [place] (361903) or Rapid Plasma Reagin (RPR) Test With Reflex to Quantitative RPR and Confirmatory Treponema pallidum Antibodies (194334). Performed at: [address] [id number] [employer] Operator: Rome Musa PhD, Phone: [phone] 01/31/2025 3:28 PM EDT 01/31/2025 3:33 PM EDT Narrative CLINISYWY - 02/01/2025 1:08 PM EDT Amitive DO LAB BLOOD ORDERABLES Final Resul t Performing Organization Address City/[facility] Co de Phone Number [facility] * HIV AB/P24 AG WITH REFLEX (01/31/2025 3:28 PM EDT) HIV AB/P24 AG SCREEN Non Reactive Non Reactive TB Comment: HIV-1/HIV-2 antibodies and HIV-1 p24 antigen were NOT detected. There is no laboratory evidence of HIV infection. HIV Negative Performed at: [address] [id number] [employer] Operator: Rome Musa PhD, Phone: [phone] 01/31/2025 3:28 PM EDT 01/31/2025 3:33 PM EDT Narrative CLINISYNC - 02/01/2025 2:07 AM EDT YChartso DO LAB BLOOD ORDERABLES Final Resul t Performing Organization Address City/[facility] Co de Phone Number [facility] * AFP, SERUM, OPEN SPINA BIFIDA (01/31/2025 3:28 PM EDT) RESULTS Report . [facility] TEST RESULTS: *Screen Negative* . [facility] GEST. AGE ON COLLECTION DATE 18.4 . weeks [facility] GESTAT. AGE BASED ON Ultrasound . [facility] Comment: 17.4 on 01/24/2025 Recalculations are not recommended when gestational dating by LMP and ultrasound are within 10 days. [age] [facility] RACE . [facility] WEIGHT 189 . lbs [facility] INSULIN DEP DIABETES No . [facility] MULTIPLE GESTATION No . [facility] AFP VALUE 26.0 . ng/mL [facility] AFP MOM 0.66 . [facility] [place] [address] [place] [address] . [facility] INTERPRETATION Comment . [facility] Comment: Interpretation: Screen Negative This result is screen negative for OSB. The AFP MoM calculated is based on the gestational age provided. MS-AFP can identify up to 80% of open neural tube defects. Closed neural tube defects and some open defects may not be detected by this test. This test does not screen for Down Syndrome or Trisomy 18. If screening for Down Syndrome or Trisomy 18 is desired, contact [employer] to discuss available options. The [place] recommends amniocentesis be offered to women age 35 and older. COMMENT: Comment . [facility] Comment: Ashley Rosario, Ph.D., [facility] Director References: Available Upon Request. Multiples Of Median Cutoffs For AFP Elevations Pandey 2.5 Black 2.8 IDD 2.0 Twins 4.5 Abbreviation Definitions IDD - Insulin Dep Diabetes OSBR - Open Spina Bifida Risk For further inquiries contact [facility] at [phone]. This test was developed and its performance characteristics determined by [employer]. It has not been cleared or approved by the Food and Drug Administration. Performed at: [facility] [address] [place], [place] [id number] [employer] Operator: Crissy Silver [facility], Phone: [phone] 01/31/2025 3:28 PM EDT 01/31/2025 3:33 PM EDT Narrative CLINISYNC - 02/02/2025 1:07 AM EDT N N ULTRASOUND [id number] 3 17 N 1 Y 189 N N N N N White/ us Jaspreet Adams DO LAB BLOOD ORDERABLES Final Resul t Performing Organization Address [facility]/ZIP Co de Phone Number [facility] * HCV ANTIBODY RFX TO QUANT PCR (01/31/2025 3:28 PM EDT) Pathologist [facility] HCV AB Non Reactive Non Reactive TB INTERPRETATION: Comment . TB Comment: Not infected with HCV unless early or acute infection is suspected (which may be delayed in an immunocompromised individual), or other evidence exists to indicate HCV infection. Performed at: [facility] [address] [id number] [employer] Operator: Rome Musa PhD, Phone: [phone] 01/31/2025 3:28 PM EDT 01/31/2025 3:33 PM EDT Narrative CLINISYNC - 02/01/2025 6:08 AM EDT Jaspreet Angie DO LAB BLOOD ORDERABLES Final Resul t Performing Organization Address [facility] Co de Phone Number [facility] * MLR HEMOGLOBIN A1C (01/31/2025 3:28 PM EDT) [facility] GLYCOHEMOGLOBIN A1C 4.9 4.5 - 6.2 % [facility] Comment: ADA RECOMMENDED LIMIT 4.0 - 6.0 ADA THERAPEUTIC TARGET < 7.0 ACTION SUGGESTED > 7.0 ESTIMATED AVERAGE GLUCOSE 94 mg/dL TB 01/31/2025 3:28 PM EDT 01/31/2025 3:33 PM EDT Narrative CLINISYNC - 01/31/2025 4:54 PM EDT Jaspreet Angie DO CLINISYNC Final Result Performing Organization Address City/[facility] Co de Phone Number [facility] * ALL TYPE AND SCREEN (01/31/2025 3:28 PM EDT) [facility] BLOOD TYPE A Negative TBH ANTIBODY SCREEN NEGATIVE TB 01/31/2025 3:28 PM EDT 01/31/2025 3:33 PM EDT Narrative CLINISYNC - 01/31/2025 4:29 PM EDT [facility] , Jaspreet Angie DO CLINISYNC Final Result [facility] * ALL RUBELLA IGG AB (01/31/2025 3:28 PM EDT) [facility] RUBELLA ANTIBODIES, IGG 7.29 Immune >0.99 index TBH Comment: Non-immune <0.90 Equivocal 0.90 - 0.99 Immune >0.99 Performed at: [facility] [id number] [employer] Operator: Rome Musa PhD, Phone: [phone] 01/31/2025 3:28 PM EDT 01/31/2025 3:33 PM EDT Narrative [facility] - 02/01/2025 6:08 AM EDT Jaspreet Angie DO CLINISYNC Final Result Performing Organization Address City/[facility]/ZIP Co de Phone Number [facility] * (ABNORMAL) ALL CBC WITH AUTO DIFF (01/31/2025 3:28 PM EDT) [facility] TB WBC 10.8 4.0 - 11.0 10 3/uL TBH TB RBC 4.30 4.20 - 5.40 10 6/uL TBH TB HGB 13.7 12.0 - 16.0 g/dL TB TB HCT 37.9 36.0 - 48.0 % TBH TB MCV 88.1 81.0 - 99.0 fL TB TB MCH 31.9 26.7 - 34.0 pg TBH TB MCHC 36.1(H) 29.9 - 35.2 g/dL TB TB RDW 12.5 11.0 - 15.0 % TBH TBH PLT 332 150 - 450 10 3/uL TBH TBH MPV 9.5 9.5 - 13.5 fL TBH NEUTROPHILS PERCENT AUTO 72.2 43.0 - 75.0 % TBH LYMPHOCYTES PERCENT AUTO 19.3(L) 20.5 - 60.0 % TBH MONOCYTES PERCENT AUTO 6.6 1.7 - 12.0 % TBH TBH EO % 0.8(L) 0.9 - 7.0 % TBH BASOPHILS PERCENT AUTO 0.5 0.2 - 2.0 % TBH IMMATURE GRANULOCYTES PCT AUTO 0.6(H) 0.0 - 0.5 % TBH NEUTROPHILS ABSOLUTE AUTO 7.8(H) 1.4 - 6.5 10 3/uL TBH LYMPHOCYTES ABSOLUTE AUTO 2.1 1.2 - 3.8 10 3/uL TBH MONOCYTES ABSOLUTE AUTO 0.7 0.3 - 0.8 10 3/uL TBH TBH EO # 0.1 0.0 - 0.7 10 3/uL TBH BASOPHILS ABSOLUTE AUTO 0.1 0.0 - 0.1 10 3/uL TBH IMMATURE GRANULOCYTES ABS AUTO 0.06(H) 0.00 - 0.03 10 3/uL TBH 01/31/2025 3:28 PM EDT 01/31/2025 3:33 PM EDT Narrative CLINISYNC - 01/31/2025 3:57 PM EDT us Jaspreet Adams DO CLINISYNC Final Result [facility] * (ABNORMAL) TB DRUG SCREEN RAPID (URINE) (01/31/2025 3:15 PM EDT) Pathologist [facility] CANNABINOID SCREEN URINE POSITIVE(A) NEGATIVE TBH PHENCYCLIDINE SCREEN URINE NEGATIVE NEGATIVE TBH COCAINE SCREEN URINE NEGATIVE NEGATIVE TBH METHAMPHETAMINES SCREEN URINE NEGATIVE NEGATIVE TBH OPIATE SCREEN URINE NEGATIVE NEGATIVE TBH AMPHETAMINE SCREEN URINE NEGATIVE NEGATIVE TBH BENZODIAZEPINES SCREEN URINE NEGATIVE NEGATIVE TBH TRICYCLIC ANTIDEPRESSANT URINE NEGATIVE NEGATIVE TBH METHADONE SCREEN URINE NEGATIVE NEGATIVE TBH BARBITURATES SCREEN URINE NEGATIVE NEGATIVE TBH OXYCODONE SCREEN URINE NEGATIVE NEGATIVE TBH BUPRENORPHINE SCREEN URINE NEGATIVE NEGATIVE TBH Comment: DRUG CLASS TEST SYSTEM CUT-OFF CONCENTRATIONS ARE FOLLOWS: AMP (Amphetamine): 500 ng/mL BAR (Barbiturates): 200 ng/mL BZO (Benzodiazepines): 150 ng/mL BUP (Buprenorphine): 10 ng/mL VILMA (Cocaine): 150 ng/mL mAMP (Methamphetamine): 500 ng/mL MTD (Methadone): 200 ng/mL OPI (Opiates): 100 ng/mL OXY (Oxycodone): 100 ng/mL PCP (Phencyclidine): 25 ng/mL THC (Cannabinoids): 50 ng/mL TCA (Trycyclic Antidepressants): 300 ng/mL 01/31/2025 3:15 PM EDT 01/31/2025 3:34 PM EDT Narrative CLINISYWY - 01/31/2025 4:00 PM EDT Jaspreet Angie DO CLINISYNC Final Result [facility] * (ABNORMAL) CANNABINOID CONF, MS, UR (01/31/2025 3:15 PM EDT) CANNABINOID Positive(A ) . TBH CARBOXY THC CONF, MS, UR >750 Cutoff=10 ng/mL TBH Comment: Performed at: [facility] [place] [address] [place] [id number] [employer] Operator: Brenda Ardon PhD, Phone: [phone] 01/31/2025 3:15 PM EDT 01/31/2025 4:00 PM EDT Narrative CLINISYWY - 02/06/2025 1:08 PM EDT [facility] LAB BLOOD ORDERABLES Final Resul t Performing Organization Address City/[facility]/ZIP Co de Phone Number [facility] * URINARY TRACT INFECTION (HTRX) (01/29/2025 12:18 PM EDT) ACINETOBACTER BAUMANII 0.000 19.961 - 24.689 ppm 01/30/2025 7:35 AM EDT [facility] ACINETOBACTER BAUMANII Not Detected 19.961 - 24.689 ppm 01/30/2025 7:35 AM EDT [facility] CITROBACTER FREUNDII 0.000 23.000 - 31.881 ppm 01/30/2025 7:35 AM EDT [facility] CITROBACTER FREUNDII Not Detected 23.000 - 31.881 ppm 01/30/2025 7:35 AM EDT [facility] ENTEROBACTER AEROGENES, CLOACAE 0.000 23.000 - 31.535 ppm 01/30/2025 7:35 AM EDT [facility] ENTEROBACTER AEROGENES, CLOACAE Not Detected 23.000 - 31.535 ppm 01/30/2025 7:35 AM EDT [facility] ENTEROCOCCUS FAECALIS, FAECIUM 0.000 26.000 - 31.575 ppm 01/30/2025 7:35 AM EDT [facility] ENTEROCOCCUS FAECALIS, FAECIUM Not Detected 26.000 - 31.575 ppm 01/30/2025 7:35 AM EDT [facility] ESCHERICHIA COLI 0.000 23.000 - 28.500 ppm 01/30/2025 7:35 AM EDT [facility] ESCHERICHIA COLI Not Detected 23.000 - 28.500 ppm 01/30/2025 7:35 AM EDT [facility] KLEBSIELLA PNEUMONIAE, OXYTOCA 0.000 23.000 - 30.500 ppm 01/30/2025 7:35 AM EDT [facility] KLEBSIELLA PNEUMONIAE, OXYTOCA Not Detected 23.000 - 30.500 ppm 01/30/2025 7:35 AM EDT [facility] MORGANELLA MORGANII 0.000 19.961 - 24.689 ppm 01/30/2025 7:35 AM EDT [facility] MORGANELLA MORGANII Not Detected 19.961 - 24.689 ppm 01/30/2025 7:35 AM EDT [facility] PROTEUS MIRABILIS, VULGARIS 0.000 23.000 - 28.500 ppm 01/30/2025 7:35 AM EDT [facility] PROTEUS MIRABILIS, VULGARIS Not Detected 23.000 - 28.500 ppm 01/30/2025 7:35 AM EDT [facility] PSEUDOMONAS AERUGINOSA 0.000 23.000 - 28.500 ppm 01/30/2025 7:35 AM EDT [facility] PSEUDOMONAS AERUGINOSA Not Detected 23.000 - 28.500 ppm 01/30/2025 7:35 AM EDT [facility] STAPHYLOCOCCUS AUREUS 0.000 26.000 - 30.902 ppm 01/30/2025 7:35 AM EDT [facility] STAPHYLOCOCCUS AUREUS Not Detected 26.000 - 30.902 ppm 01/30/2025 7:35 AM EDT [facility] STREPTOCOCCUS AGALACTIAE (GROUP B STREP) 0.000 26.000 - 32.222 ppm 01/30/2025 7:35 AM EDT [facility] STREPTOCOCCUS AGALACTIAE (GROUP B STREP) Not Detected 26.000 - 32.222 ppm 01/30/2025 7:35 AM EDT [facility] MAYNOR ALBICANS, PARAPSILOSIS, TROPICALIS 0.000 19.961 - 30.770 ppm 01/30/2025 7:35 AM EDT [facility] MAYNOR ALBICANS, PARAPSILOSIS, TROPICALIS Not Detected 19.961 - 30.770 ppm 01/30/2025 7:35 AM EDT [facility] MAYNOR GLABRATA 0.000 23.000 - 32.138 ppm 01/30/2025 7:35 AM EDT [facility] MAYNOR GLABRATA Not Detected 23.000 - 32.138 ppm 01/30/2025 7:35 AM EDT [facility] MAYNOR KRUSEI 0.000 23.000 - 32.271 ppm 01/30/2025 7:35 AM EDT [facility] MAYNOR KRUSEI Not Detected 23.000 - 32.271 ppm 01/30/2025 7:35 AM EDT [facility] SERRATIA MARCESCENS 0.000 23.000 - 31.204 ppm 01/30/2025 7:35 AM EDT [facility] SERRATIA MARCESCENS Not Detected 23.000 - 31.204 ppm 01/30/2025 7:35 AM EDT [facility] STREPTOCOCCUS PYOGENES (GROUP A STREP) 0.000 19.961 - 24.689 ppm 01/30/2025 7:35 AM EDT [facility] STREPTOCOCCUS PYOGENES (GROUP A STREP) Not Detected 19.961 - 24.689 ppm 01/30/2025 7:35 AM EDT [facility] STAPHYLOCOCCUS EPIDERMIDIS, HAEMOLYTICUS, LUGDUNENSIS, SAPROPHYTICUS (URINA 0.000 19.961 - 24.689 ppm 01/30/2025 7:35 AM EDT [facility] STAPHYLOCOCCUS EPIDERMIDIS, HAEMOLYTICUS, LUGDUNENSIS, SAPROPHYTICUS (URINA Not Detected 19.961 - 24.689 ppm 01/30/2025 7:35 AM EDT [facility] STAPHYLOCOCCUS EPIDERMIDIS, HAEMOLYTICUS, LUGDUNENSIS, SAPROPHYTICUS (URINA 0.000 19.961 - 24.689 ppm 01/30/2025 7:35 AM EDT [facility] STAPHYLOCOCCUS EPIDERMIDIS, HAEMOLYTICUS, LUGDUNENSIS, SAPROPHYTICUS (URINA Not Detected 19.961 - 24.689 ppm 01/30/2025 7:35 AM EDT [facility] Urine 01/29/2025 12:1 8 PM EDT 01/30/2025 2:05 AM EDT Nablia Avila [facility] LAB BLOOD ORDERABLES Final Re sult [facility] [address] [place] [address] * (ABNORMAL) POCT , urine manually resulted [...] II, MD, PHD at 27-Jan-2025 10:23:04 AM [facility] Procedure Note Alden Perea MD - [...] signed by ALDEN PEREA II, MD, PHD [id number] 10:23:04 AM [facility] us Jaspreet Adams DO IMG OB US PROCEDURES Final Resul t from Last 3 Months
--- OUTSIDE RECORDS SUMMARY | 2025-03-05 15:08 | XMS_ITS | Encounter Summary ---
Author Organization [facility] Address [address] [facility] [place] [address] Care Team Providers Care Farm Equipment Engineer Name Role Phone Unavailable Primary Care Provider Unavailabl e Encounter Details Date Type Department Care Team (Late Contact Info) Description 03/05/2025 Bamboo flowsheet [facility] OB [address] [address] Jaspreet Adams, DO [address], [facility] Social History Tobacco Use Types Packs/Day [...] 03/19/2025 9:30 AM EDT Ancillary Procedure [facility] [address] [address] 04/03/2025 10:40 AM EDT Routine [facility] [address] [address] Jaspreet Adams, DO [address], [facility] documented as of this encounter Visit Diagnoses Not on filedocumented in this encounter
--- OUTSIDE RECORDS SUMMARY | 2025-03-05 15:08 | XMS_ITS | Encounter Summary ---
Author Organization [facility] Address [address] [facility] [place] [address] Care Team Providers Care Hardwood Floor Refinisher Name Role Phone Unavailable Primary Care Provider Unavailabl e Encounter Details Date Type Department Care Team (Late st Contact Info) Description 03/05/2025 Abstract [facility] [address] [place] [address] Kalyn Jacob MA Social History Tobacco Use Types Packs/Day Years [...] 03/19/2025 9:30 AM EDT Ancillary Procedure [facility] [address] [place] [id number] 04/03/2025 10:40 AM EDT Routine [facility] [address] [place] [address] Jaspreet Adams DO [facility] [place], [place] [id number] documented as of this encounter Visit Diagnoses Not on filedocumented in this encounter
--- OUTSIDE RECORDS SUMMARY | 2025-03-05 15:08 | XMS_ITS | Patient Health Record ---
Author Organization [facility] Address [address] [place] [address] Care Team Providers Care Environmental Health Manager Name Role Phone Yissel Butler Primary Care [...] [employer]ICAL [employer] [address] [place] [address] [id number] [phone] JORGE ALBERTO LUNA Self - patient is the insured 2 Medical (General) History Medical History History ICD Code Polycystic Kidney Disease Hospitalization History Reason Date(Month/Year) Hyperemesis 06/2021
--- OUTSIDE RECORDS SUMMARY | 2025-03-05 21:28 | XMS_ITS | CCD ---
Author Organization [facility] Inform ion Partnership [facility] Care Team Providers Care Roll Up Guider Operator Name Role Phone ADEOLA COHEN Admitting Unavailable ADEOLA COHEN Attending Unavailable TAMRA, DR BUTLER Primary Care Unavailable ADEOLA COHEN Consulting Unavailable TAMRA, DR BUTLER Primary Care Unavailable ADRIAN CHRISTIANSEN Admitting Unavailable ADRIAN CHRISTIANSEN Attending Unavailable ARVIND, DR MACK Ansari Consulting Unavailable JOSE, DR SHERMAN Consulting Unavailable ADRIAN CHRISTIANSEN Consulting Unavailable NO FAMILY, PHYSICIAN Primary Care Provider Unava surjit Azevedo DO [facility] Emergency Provider Unavailable Primary Care Provider UnavailCristal Swenson Attending Unavailable Cristal Miguel Admitting Unavailable Cristal Miguel DO Attending Provider TYRELL ADAMS Attending Unavailable TYRELL ADAMS Referring Unavailable NABILA AVILA Attending Unavailable NABILA AVILA Referring Unavailable Allergies Allergy Classification Reported Allergen(s) Allergy Type Date of Onset Reaction(s) Facility (1 source) Penicillins Drug allergy (disorder) 09-28-2014 [facility] (8 sources) Penicillins Drug Allergy 12-23-2024 [facility] (1 source) Penicillins Drug allergy (disorder) 02-22-2022 [facility] Medications Current Medications Medication Drug Class(es) Dates Sig (Normalized) Sig (Original) Multiple Vitamin (multivitamin) tablet (6 sources) take 1 tablet by mouth once daily [...] daily as needed for nausea and vomiting 12 February 22, 2022 12:00am Start: 04-05-2021 End: 02-20-2022 [...] 25 mg supposito ry Discontinued 25 MG IN Q6H as needed for nausea and vomiting [...] Drug Class(es) Dates Sig (Normalized) Sig (Original) [id number] 200 actuat albuterol 0.09 mg/actuat metered dose [...] Discontinued 500 MG PO Twice daily 14 7 March 08, 2021 12:00am April 05, 2021 [...] D2) 1,250 mcg (50,000 unit) Capsule Discontinued [id number] UNIT PO every week December 27, 2019 [...] mg Tablet Discontinued 60 MG PO Daily April 03, 2021 12:00am April 08, 2021 [...] 08-11-2023 Episodic Other and delivery including normal (4 sources) ; Translations: [Encounter for supervision of normal , unspecified, unspecified trimester] 01-24-2025 Episodic Residual codes; unclassified (2 sources) Gestation period, 18 weeks; Translations: [18 weeks gestation of ] 01-29-2025 Episodic Sprains and strains (2 sources) Strain [...] Test Name Value Interpretation Reference Range Facility US OB 14+ WEEKS ANATOMY SCAN on 02-19-2025 US OB 14+ WEEKS ANATOMY SCAN EXAM: US OB 14+ WEEKS ANATOMY SCAN [...] II, MD, PHD at 20-Feb-2025 09:47:05 AM [facility] Normal Not Available Comment on above: Order Comment: US OB ANATOMY SINGLE W US OB CERVICAL LENGTH Estimated Date of Delivery: 07/01/25 Gestational Age as of 02/12/2025: 20w1d BOX TESTon 01-31-2025 BOX TEST SENT OUT [employer] [facility] [employer] [address] [employer] [facility] [employer] [address] 01/31/25 [facility] [employer] BOX [facility] No Panel Informationon 01-30 STAPHYLOCOCCUS EPIDERMIDIS, HAEMOLYTICUS, LUGDUNENSIS, SAPROPHYTICUS (URINA 0 [facility] STAPHYLOCOCCUS EPIDERMIDIS, HAEMOLYTICUS, LUGDUNENSIS, SAPROPHYTICUS (URINA Not detected [facility] URINARY TRACT INFECTION (HTR X)on 01-30-2025 ACINETOBACTER BAUMANII 0 [facility] ACINETOBACTER BAUMANII Not detected [facility] MAYNOR ALBICANS, PARAPSILOSIS, TROPICALIS 0 [facility] MAYNOR ALBICANS, PARAPSILOSIS, TROPICALIS Not detected [facility] MAY[facility] GLABRATA 0 [facility] GLABRATA Not detected [facility] KRUSEI 0 [facility] KRUSEI Not detected [facility] CITROBACTER FREUNDII 0 [facility] CITROBACTER FREUNDII Not detected [facility] ENTEROBACTER AEROGENES, CLOACAE 0 [facility] ENTEROBACTER AEROGENES, CLOACAE Not detected [facility] ENTEROCOCCUS FAECALIS, FAECIUM 0 [facility] ENTEROCOCCUS FAECALIS, FAECIUM Not detected [facility] ESCHERICHIA COLI 0 [facility] ESCHERICHIA COLI Not detected [facility] KLEBSIELLA PNEUMONIAE, OXYTOCA 0 [facility] KLEBSIELLA PNEUMONIAE, OXYTOCA Not detected [facility] MORGANELLA MORGANII 0 [facility] MORGANELLA MORGANII Not detected [facility] PROTEUS MIRABILIS, VULGARIS 0 [facility] PROTEUS MIRABILIS, VULGARIS Not detected [facility] PSEUDOMONAS AERUGINOSA 0 [facility] PSEUDOMONAS AERUGINOSA Not detected [facility] SERRATIA MARCESCENS 0 [facility] SERRATIA MARCESCENS Not detected [facility] STAPHYLOCOCCUS AUREUS 0 [facility] STAPHYLOCOCCUS AUREUS Not detected [facility] STREPTOCOCCUS AGALACTIAE (GROUP B STREP) 0 [facility] STREPTOCOCCUS AGALACTIAE (GROUP B STREP) Not detected [facility] STREPTOCOCCUS PYOGENES (GROUP A STREP) 0 [facility] STREPTOCOCCUS PYOGENES (GROUP A STREP) Not detected [facility] Urinalysis macro (dipstick) panel (U)on 01-29-2025 Bilirubin, UA Negative Negative - 4(70) +++ mg/dL [facility] Blood, UA Positive Negative - 50 Derick/mcL [facility] Comment on above: Trace-intact Clarity, UA Clear [facility] Color, UA Yellow [facility] Glucose, UA Negative Negative - 2000(110) ++++ mg/dL [facility] Interpretation and review of laboratory results Abnormal [facility] Ketones, UA Negative Negative - 160(16) ++++ mg/dL [facility] Leukocytes, UA Negative Negative - 500+++ Julio/mcL [facility] Nitrite, UA Negative Negative - Positive [facility] pH, UA 7 5 - 9 [facility] Protein, UA Trace Negative - 2000(20) ++++ mg/dL [facility] Spec Grav, UA 1.02 1 - 1.03 [facility] Urobilinogen, UA 1.0 0.2 - 12 mg/dL [facility] HCG ( test) Ql (U)o n 01-24-2025 Interpretation and review of laboratory results Abnormal [facility] Preg Test, Ur Positive Negative [facility] US [facility] LIMITED 1+ FETUSESon 0 01-24-2025 US [...] II, MD, PHD at 27-Jan-2025 10:23:04 AM [facility] Normal Not Available Comment on above: Order Comment: US OB TRANSVAGINAL No LMP recorded. Urinalysis macro (dipstick) panel (U)on 01-24-2025 Bilirubin, UA Negative Negative - 4(70) +++ mg/dL [facility] Blood, UA Positive Negative - 50 Derick/mcL [facility] Comment on above: Trace-Intact Clarity, UA Clear [facility] Color, UA Yellow [facility] Glucose, UA Negative Negative - 2000(110) ++++ mg/dL [facility] Interpretation and review of laboratory results Abnormal [facility] Ketones, UA Negative Negative - 160(16) ++++ mg/dL [facility] Leukocytes, UA Negative Negative - 500+++ Julio/mcL [facility] Nitrite, UA Negative Negative - Positive [facility] pH, UA 7 5 - 9 [facility] Protein, UA Negative Negative - 1999(20) ++++ mg/dL [facility] Spec Grav, UA 1.02 1 - 1.03 [facility] Urobilinogen, UA 0.2 0.2 - 12 mg/dL [facility] Urine Cultureon 01-06-2025 Bacteria identified Cx Nom (U) No Growth 2 Days PERFORMED BY: [facility] [address] [place] [address] PATHOLOGIST [employer] RAHUL Sanchez [facility] Comment on above: Performed By: #### C UU #### [facility] [address] Amphetamine Screen Ql (U)Ord ered By: Denny Azevedo on 08-11-2023 Amphetamines Ql (U) Negative Negative [facility] Amylase [Enzymatic activity/ volume] in Serum or PlasmaOrdered By: Denny Azevedo on 08-11-2023 Amylase [Catalytic activity/Vol] 32 U/L 29-103 [facility] Aspartate aminotransferase [ Enzymatic activity/volume] in Serum or PlasmaOrdered By: Denny Azevedo on 08-11-2023 AST [Catalytic activity/Vol] 24 U/L 13-39 [facility] Automated erythrocytes count in urine sediment (number/area)Ordered By: Denny Azevedo on 08-11-2023 RBC Auto (Urine sed) [#/Area] 10-19 [HPF] 0-4 [facility] Automated leukocytes count i n urine sediment (number/area)Ordered By: Denny Azevedo on 08-11-2023 WBC Auto (Urine sed) [#/Area] 3-4 [HPF] 0-4 [facility] Barbiturates [Presence] in U rine by Screen methodOrdered By: Denny Azevedo on 08-11-2023 Barbiturates Screen Ql (U) Negative Negative [facility] Basophils Auto (Bld) [#/Vol] Ordered By: Denny Azevedo on 08-11-2023 Basophils (Bld) [#/Vol] 0.1 10*3/uL 0.0-0.2 [facility] Basophils/100 WBC Auto (Bld) Ordered By: Denny Azevedo on 08-11-2023 Basophils/100 WBC (Bld) 0.9 % . [facility] Benzodiazepines Screen Ql (U )Ordered By: Denny Azevedo on 08-11-2023 Benzodiazepines Ql (U) Negative Negative [facility] Benzoylecgonine [Presence] i n Urine by Screen methodOrdered By: Denny Azevedo on 08-11-2023 Benzoylecgonine Screen Ql (U) Negative Negative [facility] Bilirubin Test strip Ql (U)O rdered By: Denny Azevedo on 08-11-2023 Bilirubin Ql (U) Negative Negative [facility] Cannabinoids [Presence] in U rine by Screen methodOrdered By: Denny Azevedo on 08-11-2023 Cannabinoids Screen Ql (U) Positive Negative [facility] Comment on above: These are unconfirme d results and should not be used for legal purposes. Drug Cut-Off Concentration: AMPH 1000 ng/mL THOMAS 200 ng/mL ARTHUR 200 ng/mL COCM 300 ng/mL OP 300 ng/mL PCP 25 ng/mL THC 20 ng/mL Carbon dioxide, total [Moles /volume] in Serum or PlasmaOrdered By: Dneny Azevedo on 08-11-2023 CO2 [Moles/Vol] 17.8 mmol/L 21.0-31.0 [facility] Chloride [Moles/volume] in S marline or PlasmaOrdered By: Denny Azevedo on 08-11-2023 Chloride [Moles/Vol] 108 mmol/L 98-107 [facility] Color Auto (U)Ordered By: French Azevedo on 08-11-2023 Color (U) Yellow Yellow [facility] Creatine kinase [Enzymatic a ctivity/volume] in Serum or PlasmaOrdered By: Denny Azevedo on 08-11-2023 CK [Catalytic activity/Vol] 225 U/L 30-223 [facility] Creatinine [Mass/volume] in Serum or PlasmaOrdered By: Denny Azevedo on 08-11-2023 Creatinine [Mass/Vol] 0.68 mg/dL 0.60-1.[address] [facility] Eosinophils Auto (Bld) [#/Vo l]Ordered By: Denny Azevedo on 08-11-2023 Eosinophils (Bld) [#/Vol] 0.1 10*3/uL 0.0-0.45 [facility] Eosinophils/100 WBC Auto (Bl d)Ordered By: Denny Azevedo on 08-11-2023 Eosinophils/100 WBC (Bld) 1.3 % . [facility] Erythrocyte distribution wid th Auto (RBC) [Ratio]Ordered By: Denny Azevedo on 08-11-2023 Erythrocyte distribution width (RBC) [Ratio] 12.9 % 11.9-15.3 [facility] Ethanol [Mass/volume] in Ser um or PlasmaOrdered By: Denny Azevedo on 08-11-2023 Ethanol [Mass/Vol] mg/dL [facility] Ethanol [Mass/Vol] TNP [facility] Comment on above: Test not performed Glucose [Mass/volume] in Ser um or PlasmaOrdered By: Denny Azevedo on 08-11-2023 Glucose [Mass/Vol] 109 mg/dL 70-100 [facility] Comment on above: ADA recommended refe rence rangeRandom Glucose Reference Range is dependent on time and content of last meal. Glucose of more than 200 mg/dL in a nonstressed, ambulatory subject supports the diagnosis of Diabetes Mellitus. HCG ( test) IA.rapi d Ql (U)Ordered By: Denny Azevedo on 08-11-2023 HCG ( test) Ql (U) Negative [facility] Hematocrit Auto (Bld) [Volum e fraction]Ordered By: Denny Azevedo on 08-11-2023 Hematocrit (Bld) [Volume fraction] 40.4 % 34.0-46.4 [facility] Hemoglobin [Mass/volume] in BloodOrdered By: Denny Azevedo on 08-11-2023 Hemoglobin (Bld) [Mass/Vol] 14.2 g/dL 11.8-15.4 [facility] INR in Platelet poor plasma by Coagulation assayOrdered By: Denny Azevedo on 08-11-2023 INR Coag (PPP) [Relative time] 1.0 {INR} [facility] Comment on above: INR Therapeutic Rang [...] on 08-11-2023 Ketones (U) [Mass/Vol] Trace Negative [facility] - UrinalysisOrder ed By: Denny Azevedo on 08-11-2023 Hyaline casts LM Ql (Urine sed) 0-8 [LPF] 0-8 [facility] Leukocytes [#/volume] correc sonja for nucleated erythrocytes in Blood by Automated counOrdered By: Denny Azevedo on 08-11-2023 WBC corrected for nucl RBC Auto (Bld) [#/Vol] 7.9 10*3/uL 3.8-11.6 [facility] Lipase [Enzymatic activity/v olume] in Serum or PlasmaOrdered By: Denny Azevedo on 08-11-2023 Lipase [Catalytic activity/Vol] 13.0 U/L 11.0-82.0 [facility] Lymphocytes Auto (Bld) [#/Vo l]Ordered By: Denny Azevedo on 08-11-2023 Lymphocytes (Bld) [#/Vol] 1.8 10*3/uL 1.00-4.8 [facility] Lymphocytes/100 WBC Auto (Bl d)Ordered By: Denny Azevedo on 08-11-2023 Lymphocytes/100 WBC (Bld) 23.1 % . [facility] MCH Auto (RBC) [Entitic mass ]Ordered By: Denny Azevedo on 08-11-2023 MCH (RBC) [Entitic mass] 30.4 pg 24.7-34.3 [facility] MCHC Auto (RBC) [Mass/Vol]Or dered By: Denny Azevedo on 08-11-2023 MCHC (RBC) [Mass/Vol] 35.1 g/dL 32.0-35.[address] [facility] MCV Auto (RBC) [Entitic vol] Ordered By: Denny Azevedo on 08-11-2023 MCV (RBC) [Entitic vol] 86.7 fL 80-100 [facility] Monocyte distribution width [Entitic volume] in Blood by AutomatedOrdered By: Denny Azevedo on 08-11-2023 Monocyte distribution width Auto (Bld) [Entitic vol] 17.99 % 0.00-20.00 [facility] Monocytes Auto (Bld) [#/Vol] Ordered By: Denny Azevedo on 08-11-2023 Monocytes (Bld) [#/Vol] 0.5 10*3/uL 0.0-0.8 [facility] Monocytes/100 WBC Auto (Bld) Ordered By: Denny Azevedo on 08-11-2023 Monocytes/100 WBC (Bld) 6.9 % . [facility] Neutrophils Auto (Bld) [#/Vo l]Ordered By: Denny Azevedo on 08-11-2023 Neutrophils (Bld) [#/Vol] 5.4 10*3/uL 1.8-7.7 [facility] Neutrophils/100 WBC Auto (Bl d)Ordered By: Denny Azevedo on 08-11-2023 Neutrophils/100 WBC (Bld) 67.8 % . [facility] Nitrite Test strip Ql (U)Ord ered By: Denny Azevedo on 08-11-2023 Nitrite Ql (U) Negative Negative [facility] No Panel InformationOrdered By: Denny Azevedo on 08-11-2023 Estimated GFR (CKD-EPI) > 60.0 mL/Min [facility] Creatinine Clearance (Chem 138.27 [facility] Nucleated erythrocytes [Pres ence] in Blood by Automated countOrdered By: Denny Azevedo on 08-11-2023 Nucleated RBC Auto Ql (Bld) 0.1 /100{WBC} 0-0.5 [facility] Opiates [Presence] in Urine by Screen methodOrdered By: Denny Azevedo on 08-11-2023 Opiates Screen Ql (U) Negative Negative [facility] Phencyclidine Screen Ql (U)O rdered By: Denny Azevedo on 08-11-2023 Phencyclidine Ql (U) Negative Negative [facility] Platelet mean volume Auto (B ld) [Entitic vol]Ordered By: Denny Azevedo on 08-11-2023 Platelet mean volume (Bld) [Entitic vol] 7.7 fL 6.3-10.7 [facility] Platelets Auto (Bld) [#/Vol] Ordered By: Denny Azevedo on 08-11-2023 Platelets (Bld) [#/Vol] 307 10*3/uL 150-450 [facility] Potassium [Moles/volume] in Serum or PlasmaOrdered By: Denny Azevedo on 08-11-2023 Potassium [Moles/Vol] 3.3 mmol/L 3.5-5.[address] [facility] Protein Auto test strip (U) [Mass/Vol]Ordered By: Denny Azevedo on 08-11-2023 Protein (U) [Mass/Vol] 30 mg/dL Negative [facility] Prothrombin time (PT)Ordered By: Denny Azevedo on 08-11-2023 PT Coag (PPP) [Time] 12.1 s 9.0-12.9 [facility] Comment on above: A hematocrit value g reater than 55% may lead to inaccurate results in coagulation testing. Patients having hematocrit values >55% require a special collection tube for coagulation studies. Please contact the laboratory at [phone] for redraw instructions. RBC Auto (Bld) [#/Vol]Ordere d By: Denny Azevedo on 08-11-2023 RBC (Bld) [#/Vol] 4.66 10*6/uL 3.60-5.00 [facility] Serum or plasma anion gap de terminationOrdered By: Denny Azevedo on 08-11-2023 Anion gap [Moles/Vol] 15.5 mmol/L 6.0-15.0 [facility] Sodium [Moles/volume] in Ser um or PlasmaOrdered By: Denny Azevedo on 08-11-2023 Sodium [Moles/Vol] 138 mmol/L 136-145 [facility] Specific gravity Auto test s trip (U) [Rel density]Ordered By: Denny Azevedo on 08-11-2023 Specific gravity (U) [Rel density] 1.026 1.001-1.03 0 [facility] Squamous epithelial cells de tection in urine sediment by light microscopyOrdered By: Denny Azevedo on 08-11-2023 Epithelial cells.squamous LM Ql (Urine sed) 0-1 [HPF] 0-2 [facility] Urea nitrogen [Mass/volume] in Serum or PlasmaOrdered By: Denny Azevedo on 08-11-2023 Urea nitrogen [Mass/Vol] 11 mg/dL 7-25 [facility] Urine bacteria detection by automated methodOrdered By: Denny Azevedo on 08-11-2023 Bacteria Auto Ql (U) None seen None Seen [facility] Urine clarity by refractomet ry automatedOrdered By: Denny Azevedo on 08-11-2023 Clarity Refractometry automated (U) Clear Clear [facility] Urine glucose measurement by automated test strip (mass/volume)Ordered By: Denny Azevedo on 08-11-2023 Glucose Auto test strip (U) [Mass/Vol] Normal mg/dL Normal [facility] Urine hemoglobin detection b y automated test stripOrdered By: Denny Azevedo on 08-11-2023 Hemoglobin Auto test strip Ql (U) 2+ Negative [facility] Urine leukocyte esterase det ection by automated test stripOrdered By: Denny Azevedo on 08-11-2023 Leukocyte esterase Auto test strip Ql (U) Negative Negative [facility] Urobilinogen Auto test strip (U) [Mass/Vol]Ordered By: Denny Azevedo on 08-11-2023 Urobilinogen (U) [Mass/Vol] Normal mg/dL Normal [facility] WBC Auto (Bld) [#/Vol]Ordere d By: Denny Azevedo on 08-11-2023 WBC (Bld) [#/Vol] 7.9 10*3/uL 3.8-11.6 [facility] pH Auto test strip (U)Ordere d By: Denny Azevedo on 08-11-2023 pH (U) 6.5 [pH] 5.0-9.0 [facility] BILIRUBIN CONJUGATED (DIRECT )on 03-03-2022 BILI, CONJUGATED 0.3 mg/dL Critically high 0.0-0.2 [facility] Comment on above: Performed By: #### D FERNANDEZ #### [facility] [address] [address] [address] Yaritza Bojorquez CBC AUTO DIFFon 03-03-2022 BASO # 0.1 103/ul Normal 0.0-0.1 [facility] Comment on above: Performed By: #### C BC #### [facility] [address] [address] [address] Yaritza Bojorquez Basophils/100 WBC (Bld) 0.5 % Normal 0.2-2.0 [facility] Comment on above: Performed By: #### C BC #### [facility] [address] [place] [address] Dr. Yaritza Bojorquez EO # 0.0 103/ul Normal 0.0-0.7 [facility] Comment on above: Performed By: #### C BC #### [facility] [address] [place] [address] Dr. Yaritza Bojorquez Eosinophils/100 WBC (Bld) 0.1 % Critically low 0.9-7.0 [facility] Comment on above: Performed By: #### C BC #### [facility] [address] [place] [address] Dr. Yaritza Bojorquez Erythrocyte distribution width (RBC) [Ratio] 12.1 % Normal 11.0-15.0 [facility] Comment on above: Performed By: #### C BC #### [facility] [address] [place] [address] Dr. Yaritza Bojorquez Hematocrit (Bld) [Volume fraction] 45.0 % Normal 36.0-48.0 [facility] Comment on above: Performed By: #### C BC #### [facility] [address] [place] [address] Dr. Yaritza Bojorquez Hemoglobin (Bld) [Mass/Vol] 16.5 g/dL Critically high 12.0-16.0 [facility] Comment on above: Performed By: #### C BC #### [facility] [address] [place] [address] Dr. Yaritza Bojorquez IG # 0.05 10e3/ul Critically high 0.00-0.03 [facility] Comment on above: Performed By: #### C BC #### [facility] [address] [place] [address] Dr. Yaritza Bojorquez IG % 0.3 % Normal 0.0-0.5 [facility] Comment on above: Performed By: #### C BC #### [facility] [address] [place] [address] Dr. Yaritza Bojorquez LYMPH # 3.2 103/ul Normal 1.2-3.8 [facility] Comment on above: Performed By: #### C BC #### [facility] [address] [place] [address] Dr. Yaritza Bojorquez Lymphocytes/100 WBC (Bld) 21.6 % Normal 20.5-60.0 [facility] Comment on above: Performed By: #### C BC #### [facility] [address] [place] [address] Dr. Yaritza Bojorquez MANUAL DIFF REQ NO Normal [facility] Comment on above: Performed By: #### C BC #### [facility] [address] [place] [address] Dr. Yaritza Bojorquez MCH (RBC) [Entitic mass] 30.7 pg Normal 26.7-34.0 [facility] Comment on above: Performed By: #### C BC #### [facility] [address] [place] [address] Dr. Yaritza Bojorquez MCHC (RBC) [Mass/Vol] 36.7 g/dL Critically high 29.9-35.2 [facility] Comment on above: Performed By: #### C BC #### [facility] [address] [place] [address] Dr. Yaritza Bojorquez MCV (RBC) [Entitic vol] 83.8 fL Normal 81.0-99.0 [facility] Comment on above: Performed By: #### C BC #### [facility] [address] [place] [address] Dr. Yaritza Bojorquez MONO # 0.8 103/ul Normal 0.3-0.8 [facility] Comment on above: Performed By: #### C BC #### [facility] [address] [place] [address] Dr. Yaritza Bojorquez Monocytes/100 WBC (Bld) 5.3 % Normal 1.7-12.0 [facility] Comment on above: Performed By: #### C BC #### [facility] [address] [place] [address] Dr. Yaritza Bojorquez NEUT # 10.5 103/ul Critically high 1.4-6.5 [facility] Comment on above: Performed By: #### C BC #### [facility] [address] [place] [address] Dr. Yaritza Bojorquez Neutrophils/100 WBC (Bld) 72.2 % Normal 43.0-75.0 [facility] Comment on above: Performed By: #### C BC #### [facility] [address] [place] [address] Dr. Yaritza Bojorquez Platelet mean volume (Bld) [Entitic vol] 10.0 fL Normal 9.5-13.5 [facility] Comment on above: Performed By: #### C BC #### [facility] [address] [place] [address] Dr. Yaritza Bojorquez PLT 450 103/ul Normal 150-450 [facility] Comment on above: Performed By: #### C BC #### [facility] [address] [place] [address] Dr. Yaritza Bojorquez RBC 5.37 106/ul Normal 4.20-5.40 [facility] Comment on above: Performed By: #### C BC #### [facility] [address] [place] [address] Dr. Yaritza Bojorquez WBC 14.6 103/ul Critically high 4.0-11.0 [facility] Comment on above: Performed By: #### C BC #### [facility] [address] [place] [address] Dr. Yaritza Bojorquez CULTURE URINEon 03-03-2022 CULTURE URINE Culture Observations : LIGHT GROWTH OF MIXED GENITAL KRYSTAL. NO POTENTIAL PATHOGENS SEEN. Normal [facility] Comment on above: Performed By: #### U RCX #### [facility] [address] [place] [address] Dr. Yaritza Bojorquez ER URINE PROFILEon 2 Bilirubin Ql (U) Negative Normal NEGATIVE [facility] Comment on above: Performed By: #### E RUR, UMICRO #### [facility] [address] [place] [address] Dr. Yaritza Bojorquez Clarity (U) CLEAR Normal CLEAR [facility] Comment on above: Performed By: #### BABAK MAERO #### [facility] [address] [place] [address] Dr. Yaritza Bojorquez Color (U) DK. YELLOW Normal YELLOW [facility] Comment on above: Performed By: #### BABAK MAERO #### [facility] [address] [place] [address] Dr. Yaritza Bojorquez ERUAHBlanca A micrscopic examina tion will be performed if indicated. Normal [facility] Comment on above: Performed By: #### ALBA MAEICRO #### [facility] [address] [place] [address] Dr. Yaritza Bojorquez Glucose Ql (U) Negative Normal NEGATIVE [facility] Comment on above: Performed By: #### BABAK MAERO #### [facility] [address] [place] [address] Dr. Yaritza Bojorquez Hemoglobin Ql (U) Negative Normal NEGATIVE [facility] Comment on above: Performed By: #### BABAK MAERO #### [facility] [address] [place] [address] Dr. Yaritza Bojorquez Ketones Ql (U) >=80 Abnormal NEGATIVE [facility] Comment on above: Performed By: #### BABAK MAERO #### [facility] [address] [place] [address] Dr. Yaritza Bojorquez LEUKOCYTES TRACE Abnormal NEGATIVE [facility] Comment on above: Performed By: #### BABAK MAERO #### [facility] [address] [place] [address] Dr. Yaritza Bojorquez Nitrite Ql (U) Negative Normal NEGATIVE [facility] Comment on above: Performed By: #### BABAK MEARO #### [facility] [address] [place] [address] Dr. Yaritza Bojorquez pH (U) 6.5 [pH] Normal 5-9 [facility] Comment on above: Performed By: #### BABAK MAERO #### [facility] [address] [place] [address] Dr. Yaritza Bojorquez Protein (U) [Mass/Vol] 100 mg/dL Abnormal NEGAT TORSTEN/ TRACE [facility] Comment on above: Performed By: #### BABAK MAERO #### [facility] [address] [place] [address] Dr. Yaritza Bojorquez SPEC GRAVITY 1.025 Normal 1.005-<=1. 025 [facility] Comment on above: Performed By: #### TAYLA MAE #### [facility] [address] [place] [address] Dr. Yaritza Bojorquez UR MICRO IND INDICATED Normal [facility] Comment on above: Performed By: #### TAYLA MAE #### [facility] [address] [place] [address] Dr. Yaritza Bojorquez Urobilinogen Qn (U) 4 {Emir'U}/dL Abnormal 0.2 - 1.0 [facility] Comment on above: Performed By: #### TAYLA MAE #### [facility] [address] [place] [address] Dr. Yaritza Bojorquez PROF 14(COMP METB)on 022 Albumin [Mass/Vol] 4.5 g/dL Normal 3.4-5.0 [facility] Comment on above: Performed By: #### C MP #### [facility] [address] [place] [address] Dr. Yaritza Bojorquez Albumin/Globulin [Mass ratio] 1.2 {ratio} Normal [facility] Comment on above: Performed By: #### C MP #### [facility] [address] [place] [address] Dr. Yaritza Bojorquez ALP [Catalytic activity/Vol] 48 U/L Normal 46-116 [facility] Comment on above: Performed By: #### C MP #### [facility] [address] [place] [address] Dr. Yaritza Bojorquez ALT [Catalytic activity/Vol] 25 U/L Normal 14-59 [facility] Comment on above: Performed By: #### C MP #### [facility] [address] [place] [address] Dr. Yaritza Bojorquez Anion gap [Moles/Vol] 17.8 mmol/L Normal [facility] Comment on above: Performed By: #### C MP #### [facility] [address] [address] [address] Yaritza Bojorquez AST [Catalytic activity/Vol] 11 U/L Critically low 15-37 [facility] Comment on above: Performed By: #### C MP #### [facility] [address] [place] [address] Dr. Yaritza Bojorquez Bilirubin [Mass/Vol] 1.4 mg/dL Critically high 0.2-1.0 [facility] Comment on above: Performed By: #### C MP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
[2025-03-07 18:13] LABS: Age Gdln ACOG Testing Note (.); IGP, rfx Aptima HPV ASCU Note (.)
== END 2025-03-05 14:59 | disposition home or self-care (01) ==
LOC: LAB 14:58
PROVIDERS: Visit Provider Obstetrics & Gynecology
DX: Z01.419 Encounter for gynecological examination (general) (routine) without abnormal findings (principal)
CPT/HCPCS: 88175

== ENCOUNTER 2025-03-06 10:05 | Outpatient (OUT) | payer SELFPAY ==
[2025-03-06 11:36] LABS: Hematocrit 35.9 % (36.0-48.0); Hemoglobin 13.0 g/dL (12.0-16.0); Immature Granulocytes Abs Auto 0.05 10^3/uL (0.00-0.03); Immature Granulocytes Pct Auto 0.5 % (0.0-0.5); Lymphocytes Absolute Auto 1.6 10^3/uL (1.2-3.8); Mean Corpuscular HGB Conc 36.2 g/dL (29.9-35.2); Mean Corpuscular Hemoglobin 32.8 pg (26.7-34.0); Mean Corpuscular Volume 90.7 fL (81.0-99.0); Platelet Count 271 10^3/uL (150-450); Red Blood Count 3.96 10^6/uL (4.20-5.40); White Blood Count 10.2 10^3/uL (4.0-11.0)
[2025-03-06 11:44] LABS: Glucose 1 Hour 141 mg/dL (<130)
== END 2025-03-06 10:06 | disposition home or self-care (01) ==
LOC: LAB 10:08
PROVIDERS: Visit Provider Obstetrics & Gynecology
DX: Z13.1 Encounter for screening for diabetes mellitus (principal)
CPT/HCPCS: 36415; 82950; 85025

== ENCOUNTER 2025-03-21 08:44 | Outpatient (OUT) | payer SELFPAY ==
--- OUTSIDE RECORDS SUMMARY | 2025-03-19 09:30 | XMS_ITS | Encounter Summary ---
Author Organization [facility] Address [address] [facility] [place] [address] Care Team Providers Care Certified Personal Chef Name Role Phone Unavailable Primary Care Provider Unavailabl e Encounter Details Date Type Department Care Team (Latest Contact Info) Description 03/19/2025 9:30 AM EDT Ancillary Procedure [facility] [address] [facility] [place] [place] [address] Encounter for follow-up ultrasound of anatomy ([facility]) Social History Tobacco Use Types Packs/Day Years [...] Care Team (Late st Contact Info) Description 04/03/2025 10:40 AM EDT Routine [facility] OB [address] [place] [address] Jaspreet Adams, DO [address] [place], [place] [id number] documented as of this encounter Procedures Procedure Name Priority Date/Time Associated Diagnosis Comments US OB LIMITED 1+ FETUSES Routine 03/19/2025 10:09 AM EDT Encounter for follow-up ultrasound of anatomy ([facility]) documented in this encounter Results * US OB limited 1+ fetuses (03/19/2025 10:09 AM EDT) Anatomical Region Laterality Modality Body Ultrasound 03/21/2025 8:32 AM EDT Narrative 03/21/2025 8:32 AM EDT EXAM: US OB LIMITED 1+ FETUSES HISTORY: Follow up anatomy. COMPARISON: Ob ultrasound 02/19/2025. TECHNIQUE: Two-dimensional transabdominal grayscale ultrasound imaging of the pelvis was performed. FINDINGS: Gestation: Single Presentation: Cephalic Cardiac Activity: 153 beats per minute Amniotic Fluid: Appears adequate ANATOMY Four Chamber Heart: Unremarkable LVOT: Unremarkable RVOT: Unremarkable IMPRESSION: 1. Single, live intrauterine gestation 25 weeks, 1 days by LMP. SOFIA by LMP is 07/01/2025. 2. Unremarkable follow-up anatomy of the heart. Interpreted by: Electronically signed by ALDEN PEREA II, MD, PHD at 21-Mar-2025 08:31:03 AM [facility] Procedure Note Alden Perea MD - 03/21/2025 EXAM: US OB LIMITED 1+ FETUSES HISTORY: Follow up anatomy. COMPARISON: Ob ultrasound 02/19/2025. TECHNIQUE: Two-dimensional transabdominal grayscale ultrasound imaging ofthe pelvis was performed. FINDINGS: Gestation: Single Presentation: Cephalic Cardiac Activity: 153 beats per minute Amniotic Fluid: Appears adequate ANATOMY Four Chamber Heart: Unremarkable LVOT: Unremarkable RVOT: Unremarkable IMPRESSION: 1. Single, live intrauterine gestation 25 weeks, 1 days by LMP. SOFIA byLMP is 07/01/2025. 2. Unremarkable follow-up anatomy of the heart. Interpreted by: Electronically signed by ALDEN PEREA II, MD, PHD [id number] 08:31:03 AM [facility] us Nabila Avila NP IMG OB US PROCEDURES Final Re sult documented in this encounter Visit Diagnoses Diagnosis Encounter for follow-up ultrasound of anatomy ([facility]) documented in this encounter
--- OUTSIDE RECORDS SUMMARY | 2025-03-21 08:47 | XMS_ITS | Encounter Summary ---
Author Organization [facility] Address [address] [facility] [place] [address] Care Team Providers Care Head Of Geography Name Role Phone Unavailable Primary Care Provider Unavailabl e Encounter Details Date Type Department Care Team (Late st Contact Info) Description 03/11/2025 Orders Only [facility] [address] [facility] [place] [address] Britt Christensen MA [address] [place] [address] Social History Tobacco Use Types Packs/Day Years [...] AM EDT Routine [facility] [address] [facility] [place] [address] Jaspreet Adams DO [address] [place], [place] [id number] documented as of this encounter Procedures Procedure Name Priority Date/Time Associated Diagnosis Comments PAP SMEAR Routine 03/05/2025 12:00 AM EDT documented in this encounter Results * Pap Smear (03/05/2025 12:00 AM EDT) Swab Cervical swab / Unknown us Jaspreet Adams DO LAB CYTOLOGY ORDERABLES Final Re sult EXTERNAL LAB documented in this encounter Visit Diagnoses Not on filedocumented in this encounter
--- OUTSIDE RECORDS SUMMARY | 2025-03-21 08:47 | XMS_ITS | Encounter Summary ---
Author Organization [facility] Address [address] [facility] [place] [address] Care Team Providers Care Tobacco Sprayer Name Role Phone Unavailable Primary Care Provider Unavailabl e Encounter Details Date Type Department Care Team (Late st Contact Info) Description 12/12/2024 Abstract [facility] OB [address] [place] [address] Jaspreet Adams, [address] [place], [facility] Social History Tobacco Use Types Packs/Day Years [...] Routine [facility] [address] [place] [address] Jaspreet Adams DO [address] [place], [place] [id number] documented as of this encounter Visit Diagnoses Not on filedocumented in this encounter
--- OUTSIDE RECORDS SUMMARY | 2025-03-21 08:47 | XMS_ITS | Encounter Summary ---
Author Organization [facility] Address [address] [facility] [place] [address] Care Team Providers Care Representative Name Role Phone Unavailable Primary Care Provider Unavailabl e Encounter Details Date Type Department Care Team (Late st Contact Info) Description 03/05/2025 Clinisync Result Encounter [facility] External Department Unsolicited Jaspreet Adams, DO [address] [place] [address] Social History Tobacco Use Types Packs/Day Years [...] AM EDT Routine [facility] [address] [facility] [place] [id number] Jaspreet Adams, [address] [place] [address] documented as of this encounter Procedures Procedure Name Priority Date/Time Associated Diagnosis Comments IGP,APTIMA HPV,AGE GDLN Routine 03/05/2025 11:08 AM EDT documented in this encounter Results * IGP,APTIMA HPV,AGE GDLN (03/05/2025 11:08 AM EDT) AGE GDLN ACOG TESTING Note . [facility] Comment: TESTS RESULT FLAG UNITS REF RANGE LAB Clinician Provided Cytology Information Source.............Endocervix Other.............. No. of containers..01 ThinPrep Vial Age Kristyo ACOG Mandie... FLAG LEGEND: L-Low Normal,H-High Normal,LL-Alert Low,HH-Alert High <-Panic Low,>-Panic High,A-Abnormal,AA-Critical Abnormal Performed at: 01 =G [address] [address] Mckenna Polanco MD, IGP, RFX APTIMA HPV ASCU Note . [facility] Comment: TESTS RESULT FLAG UNITS REF RANGE LAB DIAGNOSIS: 02 NEGATIVE FOR INTRAEPITHELIAL LESION OR MALIGNANCY. Specimen adequacy: 02 Satisfactory for evaluation. No endocervical component is identified. Performed by: Andres Pineda Sorting Cows Worker (ASCP) . 02 Note: Note 02 The Pap smear is a screening test designed to aid in the detection of premalignant and malignant conditions of the uterine cervix. It is not a diagnostic procedure and should not be used as the sole means of detecting cervical cancer. Both false-positive and false-negative reports do occur. Test Methodology: Note 02 This liquid based ThinPrep(R) pap test was screened with the use of an image guided system. . 02 The HPV DNA reflex criteria were not met with this specimen result therefore, no HPV testing was performed. FLAG LEGEND: L-Low Normal,H-High Normal,LL-Alert Low,HH-Alert High <-Panic Low,>-Panic High,A-Abnormal,AA-Critical Abnormal Performed at: [address] [phone] Mckenna Polanco MD, Performed at: = - [facility] [id number] Methods Engineer: Mckenna Polanco MD, Phone: [phone] Performed at: [facility] [id number] Methods Engineer: Mckenna Polanco MD, Phone: [phone] 03/05/2025 11:0 8 AM EDT 03/05/2025 3:05 PM EDT Narrative [facility] - 03/07/2025 6:13 PM EDT SPATULA-ALONE ENDOCERVIX us Jaspreet Adams DO LAB BLOOD ORDERABLES Final Resul t [facility] documented in this encounter Visit Diagnoses Not on filedocumented in this encounter
--- OUTSIDE RECORDS SUMMARY | 2025-03-21 08:47 | XMS_ITS | Encounter Summary ---
Author Organization [facility] Address [address] [facility] [place] [address] Care Team Providers Care Consumer Electronic Retail Specialist Name Role Phone Unavailable Primary Care Provider Unavailabl e Encounter Details Date Type Department Care Team (Late st Contact Info) Description 01/31/2025 Abstract [facility] OB [address] [place] [address] Jaspreet Adams DO [address] [place], [facility] Social History Tobacco Use Types Packs/Day [...] Routine [facility] OB [address] [place] [address] Jaspreet Adams DO [address] [place], [place] [id number] documented as of this encounter Visit Diagnoses Not on filedocumented in this encounter
--- OUTSIDE RECORDS SUMMARY | 2025-03-21 08:48 | XMS_ITS | Clinical Summary ---
Author Organization [facility] Address [address] [place] [address] Care Team Providers Care Rewriter Name Role Phone Unavailable Primary Care Provider [...] Encounters Date Type Department Care Team Description 03/19/2025 9:30 AM EDT Ancillary Procedure [facility] [address] [place] [address] Encounter for follow-up ultrasound of anatomy ([facility]) 03/11/2025 Orders Only [facility] [address] [place] [address] Britt Christensen MA 03/06/2025 Telephone [facility] [address] [place] [address] Kalyn Jacob MA 03/06/2025 Clinisync Result Encounter [facility] External Department Unsolicited Jaspreet Adams, DO 03/05/2025 11:00 AM EDT Routine [facility] [address] [place] [address] Jaspreet Adams, DO Second trimester ([facility]); 23 weeks gestation of ([facility]); Diabetes mellitus screening; Well woman exam with routine gynecological exam; Other insomnia 03/05/2025 Clinisync Result Encounter [facility] External Department Unsolicited Jaspreet Adams, DO 03/05/2025 Abstract [facility] [address] [place] [address] Kalyn Jacob TN 03/05/2025 Bamboo flowsheet [facility] [address] [place] [address] Jaspreet Adams, DO 02/24/2025 Telephone [facility] [address] [place] [address] Jaspreet Adams, DO 02/19/2025 8:00 AM EDT Ancillary Procedure [facility] [address] [place] [address] Second trimester ([facility]); Screening, , for anatomic survey ([facility]) 02/12/2025 9:00 AM EDT Clinical Support [facility] [address] [place] [address] Second trimester ([facility]); 20 weeks gestation of ([facility]); Blood pressure check; Screening, , for anatomic survey ([facility]) 01/31/2025 Abstract [facility] [address] [place] [address] Jaspreet Adams, DO 01/31/2025 Clinisync Result Encounter NOMS External Department Unsolicited Jaspreet Adams, DO 01/29/2025 10:20 AM EDT Routine [facility] [address] [place] [address] [phone] Nabila Avila NP Second trimester ([facility]); 18 weeks gestation of ([facility]) 01/29/2025 External Result Encounter [facility]OMS External Department Unsolicited Nabila Avila NP 01/29/2025 Bamboo flowsheet [facility] [address] [place] [address] Nabila Avila NP 01/24/2025 11:00 AM EDT Initial [facility] [address] [place] [address] GA: 17w3d 01/24/2025 10:30 AM EDT Ancillary Procedure [facility] [address] [place] [address] Missed menses 01/06/[address] [facility] [address] [place] [address] Kalyn Jacob MA 12/23/2024 1:30 PM EDT Office Visit [facility] [address] [place] [address] Jaspreet Adams DO Hyperemesis gravidarum ([facility]); Follow-up exam 12/23/2024 Bamboo flowsheet [facility] [address] [place] [address] Jaspreet Adams DO from Last 3 Months [...] AM EDT Routine [facility] [address] [place] [address] Jasprete Adams, DO [address] [place] [address] Procedures Procedure Name Priority Date/Time Associated Diagnosis Comments US OB LIMITED 1+ FETUSES Routine 03/19/2025 10:09 AM EDT Encounter for follow-up ultrasound of anatomy ([facility]) ALL CBC WITH AUTO DIFF Routine 03/06/2025 11:22 AM EDT GLUCOSE 1 HOUR Routine 03/06/2025 11:22 AM EDT POCT URINALYSIS DIPSTICK Routine 03/05/2025 11:17 AM EDT Second trimester ([facility]) IGP,APTIMA HPV,AGE GDLN Routine 03/05/2025 11:08 AM EDT PAP SMEAR Routine 03/05/2025 12:00 AM EDT US OB 14+ WEEKS ANATOMY SCAN Routine 02/19/2025 8:54 AM EDT Second trimester ([facility]) Screening, , for anatomic survey ([facility]) AFP, SERUM, OPEN SPINA BIFIDA Routine 01/31/2025 [...] Routine 01/29/2025 11:02 AM EDT Second trimester ([facility]) POCT URINALYSIS DIPSTICK Routine 01/24/2025 11:39 AM EDT Missed menses POCT , URINE Routine 01/24/2025 11:39 AM EDT Missed menses US OB LIMITED 1+ FETUSES Routine 01/24/2025 10:57 AM EDT Missed menses from Last 3 Months Results * US OB limited 1+ fetuses (03/19/2025 10:09 AM EDT) Only the most recent of2 resultswithin the time period is included. Anatomical Region Laterality Modality Body Ultrasound 03/21/2025 [...] II, MD, PHD at 21-Mar-2025 08:31:03 AM [facility] Procedure Note Alden Perea MD - [...] signed by ALDEN PEREA II, MD, PHD [id number] 08:31:03 AM [facility] us Nabila Avila NP IMG OB US PROCEDURES Final Re sult * (ABNORMAL) GLUCOSE 1 HOUR (03/06/2025 11:22 AM EDT) GLUCOSE 1 HOUR 141(H) <130 mg/dL TBH 03/06/2025 11:2 2 AM EDT 03/06/2025 11:24 AM EDT Narrative ROGER - 03/06/2025 11:47 AM EDT us Jaspreet Adams DO LAB BLOOD ORDERABLES Final Resul t [facility] MCCORMICK * (ABNORMAL) ALL CBC WITH AUTO DIFF (03/06/2025 11:22 AM EDT) Only the most recent of2 resultswithin the time period is included. TB WBC 10.2 4.0 - 11.0 10 3/uL TBH TBH RBC 3.96(L) 4.20 - 5.40 10 6/uL TBH TBH HGB 13.0 12.0 - 16.0 g/dL TBH TBH HCT 35.9(L) 36.0 - 48.0 % TBH TBH MCV 90.7 81.0 - 99.0 fL TBH TBH MCH 32.8 26.7 - 34.0 pg TBH TBH MCHC 36.2(H) 29.9 - 35.2 g/dL TBH TBH RDW 12.1 11.0 - 15.0 % TBH TBH PLT 271 150 - 450 10 3/uL TBH TBH MPV 9.6 9.5 - 13.5 fL TBH NEUTROPHILS PERCENT AUTO 77.1(H) 43.0 - 75.0 % TBH LYMPHOCYTES PERCENT AUTO 15.9(L) 20.5 - 60.0 % TBH MONOCYTES PERCENT AUTO 5.2 1.7 - 12.0 % TBH TBH EO % 0.9 0.9 - 7.0 % TBH BASOPHILS PERCENT AUTO 0.4 0.2 - 2.0 % TBH IMMATURE GRANULOCYTES PCT AUTO 0.5 0.0 - 0.5 % TBH NEUTROPHILS ABSOLUTE AUTO 7.8(H) 1.4 - 6.5 10 3/uL TBH LYMPHOCYTES ABSOLUTE AUTO 1.6 1.2 - 3.8 10 3/uL TBH MONOCYTES ABSOLUTE AUTO 0.5 0.3 - 0.8 10 3/uL TBH TBH EO # 0.1 0.0 - 0.7 10 3/uL TBH BASOPHILS ABSOLUTE AUTO 0.0 0.0 - 0.1 10 3/uL TBH IMMATURE GRANULOCYTES ABS AUTO 0.05(H) 0.00 - 0.03 10 3/uL [facility]H 03/06/2025 11:2 2 AM EDT 03/06/2025 11:24 AM EDT Narrative CLINISYNC - 03/06/2025 11:57 AM EDT Jaspreet Angie DO CLINISYNC Final Result [facility] * POCT urinalysis dipstick manually resulted (03/05/2025 [...] Urine 03/05/2025 11:1 7 AM EDT Jaspreet Angie DO POINT OF CARE TEST ENTER/EDIT OR DERABLES Final Result * IGP,APTIMA HPV,AGE GDLN (03/05/2025 11:08 AM EDT) AGE GDLN ACOG TESTING Note . [facility] Comment: TESTS RESULT FLAG UNITS REF RANGE LAB Clinician Provided Cytology Information Source.............[employer] Other.............. No. of containers..01 ThinPrep Vial Age Brijesh MARTIIN Mandie... FLAG LEGEND: L-Low Normal,H-High Normal,LL-Alert Low,HH-Alert High <-Panic Low,>-Panic High,A-Abnormal,AA-Critical Abnormal Performed at: 01 =[address] [phone] Mckenna Polanco MD, IGP, RFX APTIMA HPV ASCU Note . [facility] Comment: TESTS RESULT FLAG UNITS REF RANGE LAB DIAGNOSIS: 02 NEGATIVE FOR INTRAEPITHELIAL LESION OR MALIGNANCY. Specimen adequacy: 02 Satisfactory for evaluation. No endocervical component is identified. Performed by: 02 Vernell Pineda, Clamshell Operator ([facility]) . 02 Note: Note 02 The Pap [...] <-Panic Low,>-Panic High,A-Abnormal,AA-Critical Abnormal Performed at: [address] [phone] Mckenna Polanco MD, Performed at: [address] [id number] Mortician Helper: Mckenna Polanco MD, Phone: [phone] Performed at: [facility] [address] [id number] Mortician Helper: Mckenna Polanco MD, Phone: [phone] 03/05/2025 11:0 8 AM EDT 03/05/2025 3:05 PM EDT Narrative CLINISYNC - 03/07/2025 6:13 PM EDT SPATULA-ALONE ENDOCERVIX Jaspreet Angie DO LAB BLOOD ORDERABLES Final Resul t Performing Organization Address [facility]/ZIP Co de Phone Number CLINISYNC [facility] * Pap Smear (03/05/2025 12:00 AM EDT) Swab Cervical swab / Unknown Realvu Inco DO LAB CYTOLOGY ORDERABLES Final Re sult Performing Organization Address [facility]/ZIP Co de Phone Number EXTERNAL LAB * US OB 14+ weeks anatomy scan [...] II, MD, PHD at 20-Feb-2025 09:47:05 AM [facility] Procedure Note Alden Perea MD - [...] ALDEN PEREA II, MD, PHD 09:47:05 AM [facility] Nabila Avila JUDICIAL LAW CLERK IMG OB US PROCEDURES Final Re sult * BOX TEST (01/31/2025 3:28 PM EDT) [facility] BOX TEST SENT OUT UNITY BOX [facility] BOX1 UNITY [facility] BOX2 01/31/25 [facility] 01/31/2025 3:28 PM EDT 01/31/2025 3:33 PM EDT Narrative CLINISYNC - 01/31/2025 3:42 PM EDT UNITY BOX us Jaspreet Angie DO LAB BLOOD ORDERABLES Final Resul t Performing Organization Address City/[facility] Co de Phone Number [facility] * HBSAG SCREEN (01/31/2025 3:28 PM EDT) [facility] HBSAG SCREEN Negative Negative [facility] Comment: Performed at: [facility] [address] [id number] Mortician Helper: Rome Musa PhD, Phone: [phone] 01/31/2025 3:28 PM EDT 01/31/2025 3:33 PM EDT Narrative [facility] - 02/01/2025 1:08 PM EDT Jaspreet Angie DO LAB BLOOD ORDERABLES Final Resul t Performing Organization Address City/[facility]/ZIP Co de Phone Number [facility] * RAPID PLASMA REAGIN, QUANT (01/31/2025 3:28 PM EDT) [facility] RAPID PLASMA REAGIN, QUANT Non Reactive NonRea<1: 1 titer [facility] Comment: Please Note: This test does not meet current guidelines for screening and diagnosis of syphilis. This test is intended for following treatment response in patients being treated for syphilis infection. To screen for syphilis infection, a reflex cascade that includes both RPR and a treponema-specific assay should be utilized, such as Treponema pallidum (Syphilis) Screening [place] (048228) or Rapid Plasma Reagin (RPR) Test With Reflex to Quantitative RPR and Confirmatory Treponema pallidum Antibodies (116011). Performed at: [address] [id number] Mortician Helper: Rome Musa PhD, Phone: [phone] 01/31/2025 3:28 PM EDT 01/31/2025 3:33 PM EDT Narrative [facility] - 02/01/2025 1:08 PM EDT Jaspreet Angie DO LAB BLOOD ORDERABLES Final Resul t Performing Organization Address [facility] Co de Phone Number [facility] * HIV AB/P24 AG WITH REFLEX (01/31/2025 3:28 PM EDT) HIV AB/P24 AG SCREEN Non Reactive Non Reactive [facility] Comment: HIV-1/HIV-2 antibodies and HIV-1 p24 antigen were NOT detected. There is no laboratory evidence of HIV infection. HIV Negative Performed at: [address] [id number] Mortician Helper: Rome Musa PhD, Phone: [phone] 01/31/2025 3:28 PM EDT 01/31/2025 3:33 PM EDT Narrative [facility] - 02/01/2025 2:07 AM EDT Realvu Inco DO LAB BLOOD ORDERABLES Final Resul t Performing Organization Address [facility] Co de Phone Number [facility] * AFP, SERUM, OPEN SPINA BIFIDA (01/31/2025 3:28 PM EDT) RESULTS Report . [facility] TEST RESULTS: *Screen Negative* . [facility] GEST. AGE ON COLLECTION DATE 18.4 . weeks [facility] GESTAT. AGE BASED ON Ultrasound . [facility] Comment: 17.4 on 01/24/2025 Recalculations are not recommended when gestational dating by LMP and ultrasound are within 10 days. [age] [facility] RACE . [facility] WEIGHT 189 . lbs [facility] INSULIN DEP DIABETES No . [facility] MULTIPLE GESTATION No . [facility] AFP VALUE 26.0 . ng/mL [facility] AFP MOM 0.66 . [facility] [place] [address] [place] [address] . [facility] INTERPRETATION Comment . [facility] Comment: Interpretation: Screen Negative This result is [...] Customer Services to discuss available options. The [employer] recommends amniocentesis be offered to women age 35 and older. COMMENT: Comment . [facility] Comment: Ashley Rosario, Ph.D., [facility] Director References: Available Upon Request. Multiples Of Median Cutoffs For AFP Elevations Pandey 2.5 Black 2.8 IDD 2.0 Twins 4.5 Abbreviation Definitions IDD - Insulin Dep Diabetes OSBR - Open Spina Bifida Risk For further inquiries contact [facility] at [phone]. This test was developed and its performance characteristics determined by [employer]. It has not been cleared or approved by the Food and Drug Administration. Performed at: [facility] [place], [place] [id number] Mortician Helper: Crissy Silver [facility], Phone: [phone] 01/31/2025 3:28 PM EDT 01/31/2025 3:33 PM EDT Narrative MLNC - 02/02/2025 1:07 AM EDT N N ULTRASOUND [id number] 3 17 N 1 Y 189 N N N N N White/ us Jaspreet Angie DO LAB BLOOD ORDERABLES Final Resul t [facility] * HCV ANTIBODY RFX TO QUANT PCR (01/31/2025 3:28 PM EDT) HCV AB Non Reactive Non Reactive [facility] INTERPRETATION: Comment . [facility] Comment: Not infected with HCV unless early or acute infection is suspected (which may be delayed in an immunocompromised individual), or other evidence exists to indicate HCV infection. Performed at: - [facility] [id number] Mortician Helper: Rome Musa PhD, Phone: [phone] 01/31/2025 3:28 PM EDT 01/31/2025 3:33 PM EDT Narrative CLINISYNC - 02/01/2025 6:08 AM EDT Jaspreet Angie DO LAB BLOOD ORDERABLES Final Resul t Performing Organization Address City/[facility]/ZIP Co de Phone Number [facility] * MLR HEMOGLOBIN A1C (01/31/2025 3:28 PM EDT) [facility] GLYCOHEMOGLOBIN A1C 4.9 4.5 - 6.2 % [facility] Comment: ADA RECOMMENDED LIMIT 4.0 - 6.0 ADA THERAPEUTIC TARGET < 7.0 ACTION SUGGESTED > 7.0 ESTIMATED AVERAGE GLUCOSE 94 mg/dL [facility] 01/31/2025 3:28 PM EDT 01/31/2025 3:33 PM EDT Narrative CLINISYNC - 01/31/2025 4:54 PM EDT [facility] Angie DO CLINISYNC Final Result Performing Organization Address [facility] Co de Phone Number [facility] * ALL TYPE AND SCREEN (01/31/2025 3:28 PM EDT) [facility] BLOOD TYPE A Negative [facility] ANTIBODY SCREEN NEGATIVE TB 01/31/2025 3:28 PM EDT 01/31/2025 3:33 PM EDT Narrative CLINISYNC - 01/31/2025 4:29 PM EDT [facility] , Jaspreet Angie DO CLINISYNC Final Result Performing Organization Address [facility] Co de Phone Number [facility] * ALL RUBELLA IGG AB (01/31/2025 3:28 PM EDT) [facility] RUBELLA ANTIBODIES, IGG 7.29 Immune >0.99 index [facility] Comment: Non-immune <0.90 Equivocal 0.90 - 0.99 Immune >0.99 Performed at: [address] [id number] Mortician Helper: Rome Musa PhD, Phone: [phone] 01/31/2025 3:28 PM EDT 01/31/2025 3:33 PM EDT Narrative CLINISYNC - 02/01/2025 6:08 AM EDT us Jaspreet Angie DO CLINISYNC Final Result [facility] * (ABNORMAL) [facility] DRUG SCREEN RAPID (URINE) (01/31/2025 3:15 PM EDT) CANNABINOID SCREEN URINE POSITIVE(A) NEGATIVE TB[facility] PHENCYCLIDINE [...] PM EDT 01/31/2025 3:34 PM EDT Narrative CLINISYNC - 01/31/2025 4:00 PM EDT us Jaspreet Angie DO CLINISYNC Final Result Performing Organization Address City/[facility]/ZIP Co de Phone Number [facility] * (ABNORMAL) CANNABINOID CONF, MS, UR (01/31/2025 3:15 PM EDT) CANNABINOID Positive(A ) . [facility] CARBOXY THC CONF, MS, UR >750 Cutoff=10 ng/mL [facility] Comment: Performed at: [facility] [address] [place], [place] [id number] Mortician Helper: Brenda Ardon PhD, Phone: [phone] 01/31/2025 3:15 PM EDT 01/31/2025 4:00 PM EDT Narrative CLINISYNC - 02/06/2025 1:08 PM EDT Jaspreet Angie DO LAB BLOOD ORDERABLES Final Resul t Performing Organization Address [facility] Co de Phone Number [facility] * URINARY TRACT INFECTION (HTRX) (01/29/2025 12:18 PM EDT) ACINETOBACTER BAUMANII 0.000 19.961 - 24.689 ppm 01/30/2025 7:35 AM EDT [facility] ACINETOBACTER BAUMANII Not Detected 19.961 - 24.689 ppm 01/30/2025 7:35 AM EDT [facility] CITROBACTER FREUNDII 0.000 23.000 - 31.881 ppm 01/30/2025 7:35 AM EDT [facility] CITROBACTER FREUNDII Not Detected 23.000 - 31.881 ppm 01/30/2025 7:35 AM EDT [facility] ENTEROBACTER AEROGENES, CLOACAE 0.000 23.000 - 31.535 ppm 01/30/2025 7:35 AM EDT [facility] ENTEROBACTER AEROGENES, CLOACAE Not Detected 23.000 - 31.535 ppm 01/30/2025 7:35 AM EDT [facility] ENTEROCOCCUS FAECALIS, FAECIUM 0.000 26.000 - 31.575 ppm 01/30/2025 7:35 AM EDT [facility] ENTEROCOCCUS FAECALIS, FAECIUM Not Detected 26.000 - 31.575 ppm 01/30/2025 7:35 AM EDT [facility] ESCHERICHIA COLI 0.000 23.000 - 28.500 ppm 01/30/2025 7:35 AM EDT [facility] ESCHERICHIA COLI Not Detected 23.000 - 28.500 ppm 01/30/2025 7:35 AM EDT [facility] KLEBSIELLA PNEUMONIAE, OXYTOCA 0.000 23.000 - 30.500 ppm 01/30/2025 7:35 AM EDT [facility] KLEBSIELLA PNEUMONIAE, OXYTOCA Not Detected 23.000 - 30.500 ppm 01/30/2025 7:35 AM EDT [facility] MORGANELLA MORGANII 0.000 19.961 - 24.689 ppm 01/30/2025 7:35 AM EDT [facility] MORGANELLA MORGANII Not Detected 19.961 - 24.689 ppm 01/30/2025 7:35 AM EDT [facility] PROTEUS MIRABILIS, VULGARIS 0.000 23.000 - 28.500 ppm 01/30/2025 7:35 AM EDT [facility] PROTEUS MIRABILIS, VULGARIS Not Detected 23.000 - 28.500 ppm 01/30/2025 7:35 AM EDT [facility] PSEUDOMONAS AERUGINOSA 0.000 23.000 - 28.500 ppm 01/30/2025 7:35 AM EDT [facility] PSEUDOMONAS AERUGINOSA Not Detected 23.000 - 28.500 ppm 01/30/2025 7:35 AM EDT [facility] STAPHYLOCOCCUS AUREUS 0.000 26.000 - 30.902 ppm 01/30/2025 7:35 AM EDT [facility] STAPHYLOCOCCUS AUREUS Not Detected 26.000 - 30.902 ppm 01/30/2025 7:35 AM EDT [facility] STREPTOCOCCUS AGALACTIAE (GROUP B STREP) 0.000 26.000 - 32.222 ppm 01/30/2025 7:35 AM EDT [facility] STREPTOCOCCUS AGALACTIAE (GROUP B STREP) Not Detected 26.000 - 32.222 ppm 01/30/2025 7:35 AM EDT [facility] MAYNOR ALBICANS, PARAPSILOSIS, TROPICALIS 0.000 19.961 - 30.770 ppm 01/30/2025 7:35 AM EDT [facility] MAYNOR ALBICANS, PARAPSILOSIS, TROPICALIS Not Detected 19.961 - 30.770 ppm 01/30/2025 7:35 AM EDT [facility] MAYNOR GLABRATA 0.000 23.000 - 32.138 ppm 01/30/2025 7:35 AM EDT [facility] MAYNOR GLABRATA Not Detected 23.000 - 32.138 ppm 01/30/2025 7:35 AM EDT [facility] MAYNOR KRUSEI 0.000 23.000 - 32.271 ppm 01/30/2025 7:35 AM EDT [facility] MAYNOR KRUSEI Not Detected 23.000 - 32.271 ppm 01/30/2025 7:35 AM EDT [facility] SERRATIA MARCESCENS 0.000 23.000 - 31.204 ppm 01/30/2025 7:35 AM EDT [facility] SERRATIA MARCESCENS Not Detected 23.000 - 31.204 ppm 01/30/2025 7:35 AM EDT [facility] STREPTOCOCCUS PYOGENES (GROUP A STREP) 0.000 19.961 - 24.689 ppm 01/30/2025 7:35 AM EDT [facility] STREPTOCOCCUS PYOGENES (GROUP A STREP) Not Detected 19.961 - 24.689 ppm 01/30/2025 7:35 AM EDT [facility] STAPHYLOCOCCUS EPIDERMIDIS, HAEMOLYTICUS, LUGDUNENSIS, SAPROPHYTICUS (URINA 0.000 19.961 - 24.689 ppm 01/30/2025 7:35 AM EDT [facility] STAPHYLOCOCCUS EPIDERMIDIS, HAEMOLYTICUS, LUGDUNENSIS, SAPROPHYTICUS (URINA Not Detected 19.961 - 24.689 ppm 01/30/2025 7:35 AM EDT [facility] STAPHYLOCOCCUS EPIDERMIDIS, HAEMOLYTICUS, LUGDUNENSIS, SAPROPHYTICUS (URINA 0.000 19.961 - 24.689 ppm 01/30/2025 7:35 AM EDT [facility] STAPHYLOCOCCUS EPIDERMIDIS, HAEMOLYTICUS, LUGDUNENSIS, SAPROPHYTICUS (URINA Not Detected 19.961 - 24.689 ppm 01/30/2025 7:35 AM EDT Psychiatric Urine 01/29/2025 12:1 8 PM EDT 01/30/2025 2:05 AM EDT Nabila Avila JUDICIAL LAW CLERK LAB BLOOD ORDERABLES Final Re sult [facility] [address] [place] [address] * (ABNORMAL) POCT , urine manually resulted (01/24/2025 11:39 AM EDT) Preg Test, Ur Positive Negative Urine 01/24/2025 11:3 9 AM EDT Jaspreet Adams DO POINT OF CARE TEST ENTER/EDIT OR DERABLES Final Result from Last 3 Months
--- OUTSIDE RECORDS SUMMARY | 2025-03-21 08:48 | XMS_ITS | Patient Health Record ---
Author Organization [facility] [employer] es Address [address] [place] [place] [address] Care Team Providers Care Automatic Shirring Machine Operator Name Role Phone Yissel Butler Primary [...] [employer]ICAL M[employer]AC[employer] [address] [place] [address] [phone] JORGE ALBERTO LUNA Self - patient is the insured 2 Medical (General) History Medical History History ICD Code Polycystic Kidney Disease Hospitalization History Reason Date(Month/Year) Hyperemesis 06/2021
--- OUTSIDE RECORDS SUMMARY | 2025-03-21 08:48 | XMS_ITS | Encounter Summary ---
Author Organization [facility] Address [address] [facility] [place] [address] Care Team Providers Care Change Booth Attendant Name Role Phone Unavailable Primary Care Provider Unavailabl e Encounter Details Date Type Department Care Team (Late st Contact Info) Description 03/05/2025 Abstract [facility] [address] [place] [address] Kalny Jacob MA Social History Tobacco Use Types [...] Description 04/03/2025 10:40 AM EDT Routine [facility] [address] [place] [address] Jaspreet Adams DO [address] [place] [address] documented as of this encounter Visit Diagnoses Not on filedocumented in this encounter
[2025-03-21 11:31] LABS: Glucose 1 Hour 181 mg/dL (<180)
[2025-03-21 12:09] LABS: Glucose 2 Hour 162 mg/dL (<155)
[2025-03-21 12:54] LABS: Glucose 3 Hour 75 mg/dL (<140)
== END 2025-03-21 08:45 | disposition home or self-care (01) ==
LOC: LAB 08:46
PROVIDERS: Visit Provider Obstetrics & Gynecology
DX: R73.09 Other abnormal glucose (principal)
CPT/HCPCS: 36415; 82951; 82952

== ENCOUNTER 2025-04-24 11:40 | Outpatient (RCR) | payer OTHER, SELFPAY ==
[2025-04-24 11:45] VITALS: BP 152/86; PULSE 72; TEMP 36.6; O2SAT 96
[2025-04-24] MEDS: RHO(D) IMMUNE GLOBULIN 1,500 UNIT SYRINGE 1500 UNIT IM (11:48)
== END 2025-04-26 23:59 | disposition home or self-care (01) ==
LOC: LAB 11:40
PROVIDERS: Visit Provider Obstetrics & Gynecology
DX: Z67.91 Unspecified blood type, Rh negative (principal)
CPT/HCPCS: 36415; 86850; 86900; 86901; 96372; J2791

== ENCOUNTER 2025-05-15 10:58 | Outpatient (OUT) | payer OTHER, SELFPAY ==
[2025-05-15 11:07] VITALS: BP 142/86; PULSE 78
--- OUTSIDE RECORDS SUMMARY | 2025-05-15 11:16 | XMS_ITS | CCD ---
Author Organization [facility] Care Team Providers Care [place] Worker Name Role Phone ADEOLA COHEN Admitting Unavailable ADEOLA COHEN Attending Unavailable IRMAC, DR BUTLER Primary Care Unavailable ADEOLA COHEN Consulting Unavailable TAMRA, DR BUTLER Primary Care Unavailable ADRIAN CHRISTIANSEN Admitting Unavailable ADRIAN CHRISTIANSEN Attending Unavailable ARVIND, DR MACK Ansari Consulting Unavailable JOSE, DR SHERMAN Consulting Unavailable ADRIAN CHRISTIANSEN Consulting Unavailable NO FAMILY, PHYSICIAN Primary Care Provider Unava DO Denny Patrick Emergency Provider Unavailable Primary Care Provider UnavailCristal Swenson Attending Unavailable Cristal Miguel Admitting Unavailable Cristal Miguel DO Attending Provider Unavailable Primary Care Provider UnavailJASPREET Tuttle Attending Unavailable JASPREET ADAMS Referring Unavailable WILLY AVILA Attending Unavailable WILLY AVILA Referring Unavailable JASPREET ADAMS Attending Unavailable ANGIE, JASPREET Attending Unavailable DEYANIRA MCCLOUD Attending Unavailable AME DEYANIRA Referring Unavailable JASPREET ADAMS Attending Unavailable Allergies Allergy Classification Reported Allergen(s) Allergy Type Date of Onset Reaction(s) Facility (1 source) Penicillins Drug allergy (disorder) 09-28-2014 [facility] Repository (20 sources) Penicillins Drug Allergy 12-23-2024 [facility] (1 source) Penicillins Drug allergy (disorder) 02-22-2022 [facility] Repository Medications Current Medications Medication Drug Class(es) Dates Sig (Normalized) Sig (Original) Blood Glucose Monitoring Suppl (D-Care Glucometer) w/Device kit (11 sources) Start: 03-24-2025 End: 03-24-2026 Blood Glucose Monitoring Suppl (D-Care Glucometer) w/Device kit Indications: Gestational diabetes mellitus (GDM), antepartum, gestational diabetes method of control unspecified ([facility]) , Elevated glucose tolerance test 1 kit Daily Use four times daily to check FSBS. In the morning prior to breakfast & 1 hour after each meal for a total of 4times daily. 1 kit 03/24/2025 03/24/2026 Active doxylamine succinate 25 mg oral tablet (16 sources) Start: 03-05-2025 End: 04-04-2025 doxylamine (Unisom) 25 MG tablet Indications: Other insomnia Take 1 tablet (25 mg) by mouth as needed at bedtime for sleep 30 tablet 03/05/2025 Active isopropyl alcohol 0.7 ml/ml medicated pad (11 sources) Start: 03-24-2025 Alcohol Swabs (Alcohol Prep Pad) 70 % pads Indications: Gestational diabetes mellitus (GDM), antepartum, gestational diabetes method of control unspecified ([facility]) , Elevated glucose tolerance test Apply 1 Pad topically Daily Use four times daily to check FSBS. 150 each 3 03/24/2025 Active Multiple Vitamin (multivitamin) tablet (20 sources) take 1 tablet by mouth once [...] chloride 20 meq extended release oral tablet (20 sources) Start: 12-12-2024 End: 01-24-2025 take 1 tablet by mouth in the morning, then take 1 tablet by mouth in the evening, then take 1 tablet by mouth at bedtime potassium chloride CR (K-Tab) 20 MEQ ER tablet Take 20 mEq by mouth in the morning and 20 mEq in the evening and 20 mEq before bedtime. 12/12/2024 01/24/2025 Discontinued Start: 11-19-2024 Klor-Con 20 ME Q packet DISSOLVE 1 PACKET IN 4 OZ OF WATER OR OTHER BEVERAGE AND DRINK DAILY FOR 7 DAYS 11/19/2024 Active promethazine hydrochloride 25 mg rectal suppository (20 sources) Phenothiazine Start: 12-13-2024 End: 01-24-2025 take 12.5 mg rectal route every six hours as needed for vomiting and nausea promethazine (Phenergan) 25 MG suppository Insert 12.5 mg into the rectum every 6 (six) hours if needed for vomiting or nausea 12/13/2024 01/24/2025 Discontinued Start: 12-08-2024 End: 04-30-2025 take 1 tablet by mouth twice daily as needed for nausea promethazine (Phenergan) 25 MG tablet TAKE 1 TABLET BY MOUTH TWICE A DAY NEEDED FOR NAUSEA 12/08/2024 04/30/2025 Discontinued Start: 02-22-2022 take 1 tablet by vladimir three times daily as needed for nausea [...] 25 mg supposito ry Discontinued 25 MG WI Q6H as needed for nausea and vomiting [...] Drug Class(es) Dates Sig (Normalized) Sig (Original) [id number] 200 actuat albuterol 0.09 mg/actuat metered dose [...] D2) 1,250 mcg (50,000 unit) Capsule Discontinued [id number] UNIT PO every week 4 December 27, 2019 12:00am August 04, 2020 10:41am metoclopramide 10 mg oral tablet (14 sources) Dopamine-2 Receptor Antagonist Start: 01-05-2025 End: 04-30-2025 take 1 tablet by mouth every eight hours as needed for nausea and vomiting metoclopramide (Reglan) 10 MG tablet TAKE 1 TABLET ORALLY EVERY 8 HOURS NEEDED FOR NAUSEA AND VOMITING 01/05/2025 04/30/2025 Discontinued potassium citrate 10 meq extended release oral [...] Classification Problem Date Documented Da te Episodic/Chronic Diabetes or abnormal glucose tolerance complicating ; childbirth; or the puerperium (4 sources) Gestational diabetes mellitus; Translations: [Gestational diabetes mellitus in , unspecified control] 04-30-2025 Episodic E Codes: Cut/pierceb (2 sources) Fishing hook [...] request of Phys. EHR Cmte Other aftercare (4 sources) Patient encounter status; Translations: [Encounter for follow-up examination after completed treatment for conditions other than malignant neoplasm] 12-23-2024 Episodic Other complications of (2 sources) Hyperemesis gravidarum; Translations: [Mild hyperemesis gravidarum] 12-23-2024 Episodic Other complications of (2 sources) size does not accord with dates; Translations: [Uterine size-date discrepancy, second trimester] 04-17-2025 Episodic Other gastrointestinal disorders (2 sources) Diarrhea; Translations: [Diarrhea, unspecified] 08-09-2023 Episodic Comment on above: Problem List clean-u p per request of Phys. EHR Cmte Other injuries and conditions due to external causes (2 sources) Closed injury of head; Translations: [Unspecified injury of head, initial encounter] 08-11-2023 Episodic Other and delivery including normal (14 sources) ; Translations: [Encounter for supervision of normal , unspecified, unspecified trimester] 01-24-2025 Episodic Residual codes; unclassified (2 sources) Insomnia; Translations: [Other insomnia] 03-05-2025 Chronic Residual codes; unclassified (2 sources) Gestation period, 18 weeks; Translations: [18 weeks gestation of ] 01-29-2025 Episodic Residual codes; unclassified (2 sources) Gestation period, 23 weeks; Translations: [23 weeks gestation of ] 03-05-2025 Episodic Residual codes; unclassified (2 sources) Gestation period, 27 weeks; Translations: [27 weeks gestation of ] 04-03-2025 Episodic Residual codes; unclassified (2 sources) Gestation period, 29 weeks; Translations: [29 weeks gestation of ] 04-17-2025 Episodic Residual codes; unclassified (2 sources) Gestation period, 31 weeks; Translations: [31 weeks gestation of ] 04-30-2025 Episodic Residual codes; unclassified (2 sources) Gestation period, 33 weeks; Translations: [33 weeks gestation of ] 05-15-2025 Episodic Sprains and strains (2 sources) Strain [...] Test Name Value Interpretation Reference Range Facility Urinalysis macro (dipstick) panel (U)on 05-15-2025 Bilirubin, UA Negative Negative - 4(70) +++ mg/dL [facility] Blood, UA Positive Negative - 50 Derick/mcL [facility] Comment on above: 1+ Clarity, UA Clear [facility] Color, UA Straw [facility] Glucose, UA Negative Negative - 2000(110) ++++ mg/dL [facility] Interpretation and review of laboratory results Abnormal [facility] Ketones, UA Negative Negative - 160(16) ++++ mg/dL [facility] Leukocytes, UA Negative Negative - 500+++ Julio/mcL [facility] Nitrite, UA Negative Negative - Positive [facility] pH, UA 6 5 - 9 [facility] Protein, UA Positive Negative - 2000(20) ++++ mg/dL [facility] Comment on above: 2+ Spec Grav, UA 1.02 1 - 1.03 [facility] Urobilinogen, UA 1.0 0.2 - 12 mg/dL [facility] US OB FOLLOW UP TRANSABDOMIN AL APPROACHon 04-30-2025 US OB FOLLOW UP TRANSABDOMINAL APPROACH A single, live intrauterine is present with [...] BY: ELECTRONICALLY SIGNED BY: Ramana Lechuga MD Normal Not Available Comment on above: Order Comment: US OB SCAN FOR GROWTH Estimated Date of Delivery: 07/01/25 Gestational Age as of 04/17/2025: 29w2d Urinalysis macro (dipstick) panel (U)on 04-30-2025 Bilirubin, UA Negative Negative - 4(70) +++ mg/dL [facility] Blood, UA Positive Negative - 50 Derick/mcL [facility] Comment on above: 1+ Clarity, UA Clear [facility] Color, UA Yellow [facility] Glucose, UA Negative Negative - 1999(110) ++++ mg/dL [facility] Interpretation and review of laboratory results Abnormal [facility] Ketones, UA Negative Negative - 160(16) ++++ mg/dL [facility] Leukocytes, UA Negative Negative - 500+++ Julio/mcL [facility] Nitrite, UA Negative Negative - Positive [facility] pH, UA 6 5 - 9 [facility] Protein, UA Positive Negative - 2000(20) ++++ mg/dL [facility] Spec Grav, UA 1.01 1 - 1.03 [facility] Urobilinogen, UA 1.0 0.2 - 12 mg/dL [facility] Urinalysis macro (dipstick) panel (U)on 04-17-2025 Bilirubin, UA Negative Negative - 4(70) +++ mg/dL [facility] Blood, UA Positive Negative - 50 Derick/mcL [facility] Clarity, UA Clear [facility] Color, UA Yellow [facility] Glucose, UA Negative Negative - 2000(110) ++++ mg/dL [facility] Interpretation and review of laboratory results Abnormal [facility] Ketones, UA Negative Negative - 160(16) ++++ mg/dL [facility] Leukocytes, UA Positive Negative - 500+++ Julio/mcL [facility] Nitrite, UA Negative Negative - Positive [facility] pH, UA 6 5 - 9 [facility] Protein, UA Negative Negative - 1999(20) ++++ mg/dL [facility] Spec Grav, UA 1.015 1 - 1.03 [facility] Urobilinogen, UA 1.0 0.2 - 12 mg/dL [facility] Urinalysis macro (dipstick) panel (U)on 04-03-2025 Bilirubin, UA Negative Negative - 4(70) +++ mg/dL [facility] Blood, UA Positive Negative - 50 Derick/mcL [facility] Clarity, UA Clear [facility] Color, UA Yellow [facility] Glucose, UA Negative Negative - 1999(110) ++++ mg/dL [facility] Interpretation and review of laboratory results Abnormal [facility] Ketones, UA Negative Negative - 160(16) ++++ mg/dL [facility] Leukocytes, UA Negative Negative - 500+++ Julio/mcL [facility] Nitrite, UA Negative Negative - Positive [facility] pH, UA 6.5 5 - 9 [facility] Protein, UA Negative Negative - 1999(20) ++++ mg/dL [facility] Spec Grav, UA 1.015 1 - 1.03 [facility] Urobilinogen, UA 1.0 0.2 - 12 mg/dL [facility] GLUCOSE TOLERANCE 3 HOURon 0 03-21-2025 GLUCOSE TOLERANCE 3 HOUR High mg/dL [facility] Comment on above: GLU FAST 86 (<95) Co l: 03/21/25 0856 GLU 1HR 181H (<180) Col: 03/21/25 1002 GLU 2HR 162H (<155) Col: 03/21/25 1102 GLU 3HR 75 (<140) Col: 03/21/25 1202 Interpretation and review of laboratory results Abnormal [facility] US OB LIMITED 1+ FETUSESon 0 03-19-2025 US OB LIMITED 1+ FETUSES EXAM: US [...] II, MD, PHD at 21-Mar-2025 08:31:03 AM [facility] Normal Not Available Comment on above: Order Comment: US OB INCOMPLETE ANATOMY Estimated Date of Delivery: 07/01/25 Gestational Age as of 02/24/2025: 21w6d IGP,APTIMA HPV,AGE GDLNon AGE GDLN ACOG TESTING Note . [facility] Comment on above: TESTS RESULT FLAG UN ITS REF RANGE LAB Clinician Provided Cytology Information Source.............[employer] Other.............. No. of containers..01 ThinPrep Vial Age Algo ACOG Mandie... -25 09 FLAG LEGEND: L-Low Normal,H-High Normal,LL-Alert Low,HH-Alert High <-Panic Low,>-Panic High,A-Abnormal,AA-Critical Abnormal Performed at: 01 =G [address] [address] Mckenna Polanco MD, IGP, RFX APTIMA HPV ASCU Note . [facility] Comment on above: TESTS RESULT FLAG UN ITS REF RANGE LAB DIAGNOSIS: 02 NEGATIVE FOR INTRAEPITHELIAL LESION OR MALIGNANCY. Specimen adequacy: 02 Satisfactory for evaluation. No endocervical component is identified. Performed by: 02 Vernell Pineda, [employer] ([facility]) . 02 Note: Note 02 The Pap [...] <-Panic Low,>-Panic High,A-Abnormal,AA-Critical Abnormal Performed at: [address] [facility] [address] [place] [address] Mckenna Polanco MD, Performed at: =G - [facility] [address], [place] [id number] Upholstery Mechanic: Mckenna Polanco MD, Phone: [phone] Performed at: [address] [id number] Upholstery Mechanic: Mckenna Polanco MD, Phone: [phone] [facility] GLUCOSE 1 HOURon 03-06-2025 Glucose [Mass/Vol] 141 mg/dL High NINF - 13 0 mg/dL [facility] Interpretation and review of laboratory results Abnormal [facility] Glucose tolerance, 1 houron 03-06-2025 Glucose Tolerance Test 1 Hour 141 [facility] No Panel Informationon 03-06 [facility] Urinalysis macro (dipstick) panel (U)on 03-05-2025 Bilirubin, UA Negative Negative - 4(70) +++ mg/dL [facility] Blood, UA Negative Negative - 50 Derick/mcL [facility] Clarity, UA Clear [facility] Color, UA Yellow [facility] Glucose, UA Negative Negative - 2000(110) ++++ mg/dL [facility] Interpretation and review of laboratory results Normal [facility] Ketones, UA Negative Negative - 160(16) ++++ mg/dL [facility] Leukocytes, UA Negative Negative - 500+++ Julio/mcL [facility] Nitrite, UA Negative Negative - Positive [facility] pH, UA 6 5 - 9 [facility] Protein, UA Negative Negative - 2000(20) ++++ mg/dL [facility] Spec Grav, UA 1.01 1 - 1.03 [facility] Urobilinogen, UA 0.2 0.2 - 12 mg/dL [facility] US OB 14+ WEEKS ANATOMY SCAN on [...] II, MD, PHD at 20-Feb-2025 09:47:05 AM [facility] [facility] Normal Not Available Comment on above: Order Comment: US OB ANATOMY SINGLE W US OB CERVICAL LENGTH Estimated Date of Delivery: 07/01/25 Gestational Age as of 02/12/2025: 20w1d HBV surface Ag IA Qlon 02-01 Hepatitis B Surface Antigen Negative [facility] BOX TESTon 01-31-2025 BOX TEST SENT OUT [facility] BOX1 [facility] BOX2 01/31/25 [facility] BOX [facility] Drug Screen, Urineon 025 Amphetamine/Methamphet amine Negative [facility] Barbiturates Negative [facility] Benzodiazepines Negative [facility] Cocaine Metabolite Negative [facility] Ecstasy Negative [facility] Methadone Negative [facility] Opiates Negative [facility] Oxycodone Negative [facility] Phencyclidine Negative [facility] Thc Marijuana, Urine Positive [facility] HIV 1+2 Ab+HIV1 p24 Ag IA Ql on 01-31-2025 HIV 1&2 AB/AG Non-Reactive [facility] Hemoglobin A1con 01-31-2025 HbA1c (Bld) [Mass fraction] 4.9 % 4.0 - 6.0 % [facility] No Panel Informationon 01-31 [facility] Rubella IGG immune statuson 01-31-2025 Rubella immune IgG 7.29 [facility] Type and screenon 01-31-2025 Abo/Rh(D) Negative [facility] No Panel Informationon 01-30 STAPHYLOCOCCUS EPIDERMIDIS, HAEMOLYTICUS, LUGDUNENSIS, SAPROPHYTICUS (URINA 0 [facility] STAPHYLOCOCCUS EPIDERMIDIS, HAEMOLYTICUS, LUGDUNENSIS, SAPROPHYTICUS (URINA Not detected [facility] URINARY TRACT INFECTION (HTR X)on 01-30-2025 ACINETOBACTER [...] [facility] STAPHYLOCOCCUS AUREUS Not detected [facility] STREPTOCOCCUS AGALACTIAE (GROUP B STREP) 0 [facility] STREPTOCOCCUS AGALACTIAE (GROUP B STREP) Not detected [facility] STREPTOCOCCUS PYOGENES (GROUP A STREP) 0 [facility] STREPTOCOCCUS PYOGENES (GROUP A STREP) Not detected [facility] Urinalysis macro (dipstick) panel (U)on 01-29-2025 Bilirubin, UA Negative Negative - 4(70) +++ mg/dL [facility] Blood, UA Positive Negative - 50 Derick/mcL [facility] Comment on above: Trace-intact Clarity, UA Clear [facility] Color, UA Yellow [facility] Glucose, UA Negative Negative - 2000(110) ++++ mg/dL [facility] Interpretation and review of laboratory results Abnormal [facility] Ketones, UA Negative Negative - 160(16) ++++ mg/dL [facility] Leukocytes, UA Negative Negative - 500+++ Julio/mcL [facility] Nitrite, UA Negative Negative - Positive [facility] pH, UA 7 5 - 9 [facility] Protein, UA Trace Negative - 2000(20) ++++ mg/dL [facility] Spec Grav, UA 1.02 1 - 1.03 [facility] Urobilinogen, UA 1.0 0.2 - 12 mg/dL [facility] HCG ( test) Ql (U)o n 01-24-2025 Interpretation and review of laboratory results Abnormal [facility] Preg Test, Ur Positive Negative [facility] US OB LIMITED 1+ FETUSESon 0 01-24-2025 [...] II, MD, PHD at 27-Jan-2025 10:23:04 AM [facility] [facility] Normal Not Available Comment on above: Order Comment: US OB TRANSVAGINAL No LMP recorded. Urinalysis macro (dipstick) panel (U)on 01-24-2025 Bilirubin, UA Negative Negative - 4(70) +++ mg/dL [facility] Blood, UA Positive Negative - 50 Derick/mcL [facility] Comment on above: Trace-Intact Clarity, UA Clear [facility] Color, UA Yellow [facility] Glucose, UA Negative Negative - 2000(110) ++++ mg/dL [facility] Interpretation and review of laboratory results Abnormal [facility] Ketones, UA Negative Negative - 160(16) ++++ mg/dL [facility] Leukocytes, UA Negative Negative - 500+++ Julio/mcL [facility] Nitrite, UA Negative Negative - Positive [facility] pH, UA 7 5 - 9 [facility] Protein, UA Negative Negative - 2000(20) ++++ mg/dL [facility] Spec Grav, UA 1.02 1 - 1.03 [facility] Urobilinogen, UA 0.2 0.2 - 12 mg/dL [facility] Urine Cultureon 01-06-2025 Bacteria identified Cx Nom (U) No Growth 2 Days PERFORMED BY: [place] [address] PATHOLOGIST [employer] PRESIDENT RAHUL HOLCOMB M.D. Normal [facility] Comment on above: Performed By: #### C UU #### [address] Amphetamine Screen Ql (U)Ord ered By: Denny Azevedo on 08-11-2023 Amphetamines Ql (U) Negative Negative [facility] Amylase [Enzymatic activity/ volume] in Serum or PlasmaOrdered By: Denny Azevedo on 08-11-2023 Amylase [Catalytic activity/Vol] 32 U/L 29-103 [facility] Aspartate aminotransferase [ Enzymatic activity/volume] in Serum or PlasmaOrdered By: Denny Azevedo on 08-11-2023 AST [Catalytic activity/Vol] 24 U/L 13-39 [facility] Automated erythrocytes count in urine sediment (number/area)Ordered By: Denny Azevedo on 08-11-2023 RBC Auto (Urine sed) [#/Area] 10-19 [HPF] 0-4 [facility] Automated leukocytes count i n urine sediment (number/area)Ordered By: Denny Azevedo on 08-11-2023 WBC Auto (Urine sed) [#/Area] 3-4 [HPF] 0-4 [facility] Barbiturates [Presence] in U rine by Screen methodOrdered By: Denny Azevedo on 08-11-2023 Barbiturates Screen Ql (U) Negative Negative [facility] Basophils Auto (Bld) [#/Vol] Ordered By: Denny Azevedo on 08-11-2023 Basophils (Bld) [#/Vol] 0.1 10*3/uL 0.0-0.2 [facility] Basophils/100 WBC Auto (Bld) Ordered By: Denny Azevedo on 08-11-2023 Basophils/100 WBC (Bld) 0.9 % . [facility] Benzodiazepines Screen Ql (U )Ordered By: Denny Azevedo on 08-11-2023 Benzodiazepines Ql (U) Negative Negative [facility] Benzoylecgonine [Presence] i n Urine by Screen methodOrdered By: Denny Azevedo on 08-11-2023 Benzoylecgonine Screen Ql (U) Negative Negative [facility] Bilirubin Test strip Ql (U)O rdered By: Denny Azevedo on 08-11-2023 Bilirubin Ql (U) Negative Negative [facility] Cannabinoids [Presence] in U rine by Screen methodOrdered By: Denny Azevedo on 08-11-2023 Cannabinoids Screen Ql (U) Positive Negative [facility] Comment on above: These are unconfirme d results and should not be used for legal purposes. Drug Cut-Off Concentration: AMPH 1000 ng/mL THOMAS 200 ng/mL ARTHUR 200 ng/mL COCM 300 ng/mL OP 300 ng/mL PCP 25 ng/mL THC 20 ng/mL Carbon dioxide, total [Moles /volume] in Serum or PlasmaOrdered By: Denny Azevedo on 08-11-2023 CO2 [Moles/Vol] 17.8 mmol/L 21.0-31.0 [facility] Chloride [Moles/volume] in S marline or PlasmaOrdered By: Denny Azevedo on 08-11-2023 Chloride [Moles/Vol] 108 mmol/L 98-[address] [facility] Color Auto (U)Ordered By: French Azevedo on 08-11-2023 Color (U) Yellow Yellow [facility] Creatine kinase [Enzymatic a ctivity/volume] in Serum or PlasmaOrdered By: Denny Azevedo on 08-11-2023 CK [Catalytic activity/Vol] 225 U/L 30-223 [facility] Creatinine [Mass/volume] in Serum or PlasmaOrdered By: Denny Azevedo on 08-11-2023 Creatinine [Mass/Vol] 0.68 mg/dL 0.60-1.20 [facility] Eosinophils Auto (Bld) [#/Vo l]Ordered By: Denny Azevedo on 08-11-2023 Eosinophils (Bld) [#/Vol] 0.1 10*3/uL 0.0-0.45 [facility] Eosinophils/100 WBC Auto (Bl d)Ordered By: Denny Azevedo on 08-11-2023 Eosinophils/100 WBC (Bld) 1.3 % . [facility] Erythrocyte distribution wid th Auto (RBC) [Ratio]Ordered By: Denny Azevedo on 08-11-2023 Erythrocyte distribution width (RBC) [Ratio] 12.9 % 11.9-15.3 [facility] Ethanol [Mass/volume] in Ser um or PlasmaOrdered By: Denny Azevedo on 08-11-2023 Ethanol [Mass/Vol] mg/dL [facility] Ethanol [Mass/Vol] TNP [facility] Comment on above: Test not performed Glucose [Mass/volume] in Ser um or PlasmaOrdered By: Denny Azevedo on 08-11-2023 Glucose [Mass/Vol] 109 mg/dL 70-100 [facility] Comment on above: ADA recommended refe rence rangeRandom Glucose Reference Range is dependent on time and content of last meal. Glucose of more than 200 mg/dL in a nonstressed, ambulatory subject supports the diagnosis of Diabetes Mellitus. HCG ( test) IA.rapi d Ql (U)Ordered By: Denny Azevedo on 08-11-2023 HCG ( test) Ql (U) Negative [facility] Hematocrit Auto (Bld) [Volum e fraction]Ordered By: Denny Azevedo on 08-11-2023 Hematocrit (Bld) [Volume fraction] 40.4 % 34.0-46.4 [facility] Hemoglobin [Mass/volume] in BloodOrdered By: Denny Azevedo on 08-11-2023 Hemoglobin (Bld) [Mass/Vol] 14.2 g/dL 11.8-15.4 [facility] INR in Platelet poor plasma by Coagulation assayOrdered By: Denny Azevedo on 08-11-2023 INR Coag (PPP) [Relative time] 1.0 {INR} [facility] Comment on above: INR Therapeutic Rang e [...] on 08-11-2023 Ketones (U) [Mass/Vol] Trace Negative [facility] Laboratory - UrinalysisOrder ed By: Denny Azevedo on 08-11-2023 Hyaline casts LM Ql (Urine sed) 0-8 [LPF] 0-8 [facility] Leukocytes [#/volume] correc sonja for nucleated erythrocytes in Blood by Automated counOrdered By: Denny Azevedo on 08-11-2023 WBC corrected for nucl RBC Auto (Bld) [#/Vol] 7.9 10*3/uL 3.8-11.6 [facility] Lipase [Enzymatic activity/v olume] in Serum or PlasmaOrdered By: Denny Azevedo on 08-11-2023 Lipase [Catalytic activity/Vol] 13.0 U/L 11.0-82.0 [facility] Lymphocytes Auto (Bld) [#/Vo l]Ordered By: Denny Azevedo on 08-11-2023 Lymphocytes (Bld) [#/Vol] 1.8 10*3/uL 1.00-4.8 [facility] Lymphocytes/100 WBC Auto (Bl d)Ordered By: Denny Azevedo on 08-11-2023 Lymphocytes/100 WBC (Bld) 23.1 % . [facility] MCH Auto (RBC) [Entitic mass ]Ordered By: Denyn Azevedo on 08-11-2023 MCH (RBC) [Entitic mass] 30.4 pg 24.7-34.3 [facility] MCHC Auto (RBC) [Mass/Vol]Or dered By: Denny Azevedo on 08-11-2023 MCHC (RBC) [Mass/Vol] 35.1 g/dL 32.0-35.0 [facility] MCV Auto (RBC) [Entitic vol] Ordered By: Denny Azevedo on 08-11-2023 MCV (RBC) [Entitic vol] 86.7 fL 80-100 [facility] Monocyte distribution width [Entitic volume] in Blood by AutomatedOrdered By: Denny Azevedo on 08-11-2023 Monocyte distribution width Auto (Bld) [Entitic vol] 17.99 % 0.00-20.00 [facility] Monocytes Auto (Bld) [#/Vol] Ordered By: Denny Azevedo on 08-11-2023 Monocytes (Bld) [#/Vol] 0.5 10*3/uL 0.0-0.8 [facility] Monocytes/100 WBC Auto (Bld) Ordered By: Denny Azevedo on 08-11-2023 Monocytes/100 WBC (Bld) 6.9 % . [facility] Neutrophils Auto (Bld) [#/Vo l]Ordered By: Denny Azevedo on 08-11-2023 Neutrophils (Bld) [#/Vol] 5.4 10*3/uL 1.8-7.7 [facility] Neutrophils/100 WBC Auto (Bl d)Ordered By: Denny Azevedo on 08-11-2023 Neutrophils/100 WBC (Bld) 67.8 % . [facility] Nitrite Test strip Ql (U)Ord ered By: Denny Azevedo on 08-11-2023 Nitrite Ql (U) Negative Negative [facility] No Panel InformationOrdered By: Denny Azevedo on 08-11-2023 Estimated GFR (CKD-EPI) > 60.0 mL/Min [facility] Pharmacy Creatinine Clearance (Chem 138.27 [facility] Nucleated erythrocytes [Pres ence] in Blood by Automated countOrdered By: Denny Azevedo on 08-11-2023 Nucleated RBC Auto Ql (Bld) 0.1 /100{WBC} 0-0.5 [facility] Opiates [Presence] in Urine by Screen methodOrdered By: Denny Azevedo on 08-11-2023 Opiates Screen Ql (U) Negative Negative [facility] Phencyclidine Screen Ql (U)O rdered By: Denny Azevedo on 08-11-2023 Phencyclidine Ql (U) Negative Negative [facility] Platelet mean volume Auto (B ld) [Entitic vol]Ordered By: Denny Azevedo on 08-11-2023 Platelet mean volume (Bld) [Entitic vol] 7.7 fL 6.3-10.7 [facility] Platelets Auto (Bld) [#/Vol] Ordered By: Denny Azevedo on 08-11-2023 Platelets (Bld) [#/Vol] 307 10*3/uL 150-450 [facility] Potassium [Moles/volume] in Serum or PlasmaOrdered By: Denny Azevedo on 08-11-2023 Potassium [Moles/Vol] 3.3 mmol/L 3.5-5.1 [facility] Protein Auto test strip (U) [Mass/Vol]Ordered By: Denny Azevedo on 08-11-2023 Protein (U) [Mass/Vol] 30 mg/dL Negative [facility] Prothrombin time (PT)Ordered By: Denny Azevedo on 08-11-2023 PT Coag (PPP) [Time] 12.1 s 9.0-12.[address] [facility] Comment on above: A hematocrit value g reater than 55% may lead to inaccurate results in coagulation testing. Patients having hematocrit values >55% require a special collection tube for coagulation studies. Please contact the laboratory at [phone] for redraw instructions. RBC Auto (Bld) [#/Vol]Ordere d By: Denny Azevedo on 08-11-2023 RBC (Bld) [#/Vol] 4.66 10*6/uL 3.60-5.00 [facility] Serum or plasma anion gap de terminationOrdered By: Denny Azevedo on 08-11-2023 Anion gap [Moles/Vol] 15.5 mmol/L 6.0-15.0 Fi [facility] Sodium [Moles/volume] in Ser um or PlasmaOrdered By: Denny Azevedo on 08-11-2023 Sodium [Moles/Vol] 138 mmol/L 136-145 [facility] Specific gravity Auto test s trip (U) [Rel density]Ordered By: Denny Azevedo on 08-11-2023 Specific gravity (U) [Rel density] 1.026 1.001-1.03 0 [facility] Squamous epithelial cells de tection in urine sediment by light microscopyOrdered By: Denny Azevedo on 08-11-2023 Epithelial cells.squamous LM Ql (Urine sed) 0-1 [HPF] 0-2 [facility] Urea nitrogen [Mass/volume] in Serum or PlasmaOrdered By: Denny Azevedo on 08-11-2023 Urea nitrogen [Mass/Vol] 11 mg/dL 7-25 [facility] Urine bacteria detection by automated methodOrdered By: Denny Azevedo on 08-11-2023 Bacteria Auto Ql (U) None seen None Seen [facility] Urine clarity by refractomet ry automatedOrdered By: Denny Azevedo on 08-11-2023 Clarity Refractometry automated (U) Clear Clear [facility] Urine glucose measurement by automated test strip (mass/volume)Ordered By: Denny Azevedo on 08-11-2023 Glucose Auto test strip (U) [Mass/Vol] Normal mg/dL Normal [facility] Urine hemoglobin detection b y automated test stripOrdered By: Denny Azevedo on 08-11-2023 Hemoglobin Auto test strip Ql (U) 2+ Negative [facility] Urine leukocyte esterase det ection by automated test stripOrdered By: Denny zAevedo on 08-11-2023 Leukocyte esterase Auto test strip Ql (U) Negative Negative [facility] Urobilinogen Auto test strip (U) [Mass/Vol]Ordered By: Denny Azevedo on 08-11-2023 Urobilinogen (U) [Mass/Vol] Normal mg/dL Normal [facility] WBC Auto (Bld) [#/Vol]Ordere d By: Denny Azevedo on 08-11-2023 WBC (Bld) [#/Vol] 7.9 10*3/uL 3.8-11.6 [facility] pH Auto test strip (U)Ordere d By: Denny Azevedo on 08-11-2023 pH (U) 6.5 [pH] 5.0-9.0 [facility] BILIRUBIN CONJUGATED (DIRECT )on 03-03-2022 BILI, CONJUGATED 0.3 mg/dL Critically high 0.0-0.2 [facility] Comment on above: Performed By: #### D FERNANDEZ #### [facility] [address] [place] [address] Dr. Yaritza Bojorquez CBC AUTO DIFFon 03-03-2022 BASO # 0.1 103/ul Normal 0.0-0.1 [facility] Comment on above: Performed By: #### C BC #### [facility] [address] [place] [address] Dr. Yaritza Bojorquez Basophils/100 WBC (Bld) 0.5 % Normal 0.2-2.0 [facility] Comment on above: Performed By: #### C BC #### [facility] [address] [place] [address] Dr. Yaritza Bojorquez EO # 0.0 103/ul Normal 0.0-0.7 [facility] Comment on above: Performed By: #### C BC #### [facility] [address] [place] [address] Dr. Yaritza Bojorquez Eosinophils/100 WBC (Bld) 0.1 % Critically low 0.9-7.0 [facility] Comment on above: Performed By: #### C BC #### [facility] [address] [place] [address] Dr. Yaritza Bojorquez Erythrocyte distribution width (RBC) [Ratio] 12.1 % Normal 11.0-15.0 [facility] Comment on above: Performed By: #### C BC #### [facility] [address] [place] [address] Dr. Yaritza Bojorquez Hematocrit (Bld) [Volume fraction] 45.0 % Normal 36.0-48.0 [facility] Comment on above: Performed By: #### C BC #### [facility] [address] [place] [address] Dr. Yaritza Bojorquez Hemoglobin (Bld) [Mass/Vol] 16.5 g/dL Critically high 12.0-16.0 [facility] Comment on above: Performed By: #### C BC #### [facility] [address] [place] [address] Dr. Yaritza Bojorquez IG # 0.05 10e3/ul Critically high 0.00-0.03 [facility] Comment on above: Performed By: #### C BC #### [facility] [address] [place] [address] Dr. Yaritza Bojorquez IG % 0.3 % Normal 0.0-0.5 [facility] Comment on above: Performed By: #### C BC #### [facility] [address] [place] [address] Dr. Yaritza Bojorquez LYMPH # 3.2 103/ul Normal 1.2-3.8 [facility] Comment on above: Performed By: #### C BC #### [facility] [address] [place] [address] Dr. Yaritza Bojorquez Lymphocytes/100 WBC (Bld) 21.6 % Normal 20.5-60.0 [facility] Comment on above: Performed By: #### C BC #### [facility] [address] [place] [address] Dr. Yaritza Bojorquez MANUAL DIFF REQ NO Normal [facility] Comment on above: Performed By: #### C BC #### [facility] [address] [place] [address] Dr. Yaritza Bojorquez MCH (RBC) [Entitic mass] 30.7 pg Normal 26.7-34.0 [facility] Comment on above: Performed By: #### C BC #### [facility] [address] [address] [address] Yaritza Bojorquez MCHC (RBC) [Mass/Vol] 36.7 g/dL Critically high 29.9-35.2 [facility] Comment on above: Performed By: #### C BC #### [facility] [address] [address] [address] Yaritza Bojorquez MCV (RBC) [Entitic vol] 83.8 fL Normal 81.0-99.0 [facility] Comment on above: Performed By: #### C BC #### [facility] [address] [place] [address] Dr. Yaritza Bojorquez MONO # 0.8 103/ul Normal 0.3-0.8 [facility] Comment on above: Performed By: #### C BC #### [facility] [address] [place] [address] Dr. Yarizta Bojorquez Monocytes/100 WBC (Bld) 5.3 % Normal 1.7-12.0 [facility] Comment on above: Performed By: #### C BC #### [facility] [address] [place] [address] Dr. Yaritza Bojorquez NEUT # 10.5 103/ul Critically high 1.4-6.5 [facility] Comment on above: Performed By: #### C BC #### [facility] [address] [place] [address] Dr. Yaritza Bojorquez Neutrophils/100 WBC (Bld) 72.2 % Normal 43.0-75.0 [facility] Comment on above: Performed By: #### C BC #### [facility] [address] [place] [address] Dr. Yaritza Bojorquez Platelet mean volume (Bld) [Entitic vol] 10.0 fL Normal 9.5-13.5 [facility] Comment on above: Performed By: #### C BC #### [facility] [address] [place] [address] Dr. Yaritza Bojorquez PLT 450 103/ul Normal 150-450 [facility] Comment on above: Performed By: #### C BC #### [facility] [address] [place] [address] Dr. Yaritza Bojorquez RBC 5.37 106/ul Normal 4.20-5.40 [facility] Comment on above: Performed By: #### C BC #### [facility] [address] [place] [address] Dr. Yaritza Bojorquez WBC 14.6 103/ul Critically high 4.0-11.0 [facility] Comment on above: Performed By: #### C BC #### [facility] [address] [place] [address] Dr. Yaritza Bojorquez CULTURE URINEon 03-03-2022 CULTURE URINE Culture Observations : LIGHT GROWTH OF MIXED GENITAL KRYSTAL. NO POTENTIAL PATHOGENS SEEN. Normal [facility] Comment on above: Performed By: #### U RCX #### [facility] [address] [place] [address] Dr. Yaritza Bojorquez ER URINE PROFILEon 2 Bilirubin Ql (U) Negative Normal NEGATIVE [facility] Comment on above: Performed By: #### Sandoval URIBE UMICRO #### [facility] [address] [place] [address] Dr. Yaritza Bojorquez Clarity (U) CLEAR Normal CLEAR [facility] Comment on above: Performed By: #### ALBA MAEICRO #### [facility] [address] [place] [address] Dr. Yaritza Bojorquez Color (U) DK. YELLOW Normal YELLOW [facility] Comment on above: Performed By: #### ALBA MAEICRO #### [facility] [address] [place] [address] Dr. Yaritza Bojorquez ERUAHD A micrscopic examina tion will be performed if indicated. Normal [facility] Comment on above: Performed By: #### ALBA MAEICRO #### [facility] [address] [place] [address] Dr. Yaritza Bojorquez Glucose Ql (U) Negative Normal NEGATIVE [facility] Comment on above: Performed By: #### Sandoval URIBE UMICRO #### [facility] [address] [place] [address] Dr. Yaritza Bojorquez Hemoglobin Ql (U) Negative Normal NEGATIVE [facility] Comment on above: Performed By: #### Sandoval URIBE UMICRO #### [facility] [address] [place] [address] Dr. Yaritza Bojorquez Ketones Ql (U) >=80 Abnormal NEGATIVE [facility] Comment on above: Performed By: #### Sandoval URIBE UMICRO #### [facility] [address] [place] [address] Dr. Yaritza Bojorquez LEUKOCYTES TRACE Abnormal NEGATIVE [facility] Comment on above: Performed By: #### Sandoval URIBE UMICRO #### [facility] [address] [place] [address] Dr. Yaritza Bojorquez Nitrite Ql (U) Negative Normal NEGATIVE [facility] Comment on above: Performed By: #### Sandoval URIBE UMICRO #### [facility] [address] [place] [address] Dr. Yaritza Bojorquez pH (U) 6.5 [pH] Normal 5-9 [facility] Comment on above: Performed By: #### Sandoval URIBE UMICRO #### [facility] [address] [place] [address] Dr. Yaritza Bojorquez Protein (U) [Mass/Vol] 100 mg/dL Abnormal NEGAT TORSTEN/ TRACE [facility] Comment on above: Performed By: #### Sandoval URIBE UMICRO #### [facility] [address] [place] [address] Dr. Yaritza Bojorquez SPEC GRAVITY 1.025 Normal 1.005-<=1. 025 [facility] Comment on above: Performed By: #### Sandoval URIBE UMICRO #### [facility] [address] [place] [address] Dr. Yaritza Bojorquez UR MICRO IND INDICATED Normal [facility] Comment on above: Performed By: #### Sandoval URIBE UMICRO #### [facility] [address] [place] [address] Dr. Yaritza Bojorquez Urobilinogen Qn (U) 4 {Emir'U}/dL Abnormal 0.2 - 1.0 [facility] Comment on above: Performed By: #### E TAYLA URIBE #### [facility] [address] [place] [address] Dr. Yaritza Bojorquez PROF 14(COMP METB)on 022 Albumin [Mass/Vol] 4.5 g/dL Normal 3.4-5.0 [facility] Comment on above: Performed By: #### C MP #### [facility] [address] [place] [address] Dr. Yaritza Bojorquez Albumin/Globulin [Mass ratio] 1.2 {ratio} Normal [facility] Comment on above: Performed By: #### C MP #### [facility] [address] [place] [address] Dr. Yaritza Bojorquez ALP [Catalytic activity/Vol] 48 U/L Normal 46-116 [facility] Comment on above: Performed By: #### C MP #### [facility] [address] [place] [address] Dr. Yaritza Bojorquez ALT [Catalytic activity/Vol] 25 U/L Normal 14-59 [facility] Comment on above: Performed By: #### C MP #### [facility] [address] [place] [address] Dr. Yaritza Bojorquez Anion gap [Moles/Vol] 17.8 mmol/L Normal Th [facility] Comment on above: Performed By: #### C MP #### [facility] [address] [place] [address] Dr. Yaritza Bojorquez AST [Catalytic activity/Vol] 11 U/L Critically low 15-37 [facility] Comment on above: Performed By: #### C MP #### [facility] [address] [place] [address] Dr. Yaritza Bojorquez Bilirubin [Mass/Vol] 1.4 mg/dL Critically high 0.2-1.0 [facility] Comment on above: Performed By: #### C MP #### [facility] [address] [place] [address] Dr. Yaritza Bojorquez Calcium [Mass/Vol] 9.3 mg/dL Normal 8.5-10.1 [facility] Comment on above: Performed By: #### C MP #### [facility] [address] [address] [address] Yaritza Bojorquez Chloride [Moles/Vol] 98 mmol/L Normal 98-107 [facility] Comment on above: Performed By: #### C MP #### [facility] [address] [address] [address] Yaritza Bojorquez CO2 [Moles/Vol] 19.1 mmol/L Critically low 21.0-32.0 [facility] Comment on above: Performed By: #### C MP #### [facility] [address] [address] [address] Yaritza Bojorquez Creatinine [Mass/Vol] 0.95 mg/dL Normal 0.55-1.02 [facility] Comment on above: Performed By: #### C MP #### [facility] [address] [place] [address] Dr. Yaritza Bojorquez EGFR-AF THAI >60 Normal >=60 [facility] Comment on above: Performed By: #### C MP #### [facility] [address] [place] [address] Dr. Yaritza Bojorquez EGFR-NON AF THAI >60 Normal >=60 [facility] Comment on above: Performed By: #### C MP #### [facility] [address] [place] [address] Dr. Yaritza Bojorquez Globulin (S) [Mass/Vol] 3.6 g/dL Normal [facility] Comment on above: Performed By: #### C MP #### [facility] [address] [place] [address] Dr. Yaritza Bojorquez Glucose [Mass/Vol] 138 mg/dL Critically high 74-106 T [facility] Comment on above: Performed By: #### C MP #### [facility] [address] [place] [address] Dr. Yaritza Bojorquez Potassium [Moles/Vol] 2.9 mmol/L Critically low 3.5-5.1 [facility] Comment on above: Performed By: #### C MP #### [facility] [address] [place] [address] Dr. Yaritza Bojorquez Protein [Mass/Vol] 8.1 g/dL Normal 6.4-8.2 [facility] Comment on above: Performed By: #### C MP #### [facility] [address] [place] [address] Dr. Yaritza Bojorquez Sodium [Moles/Vol] 132 mmol/L Critically low 136-145 Th [facility] Comment on above: Performed By: #### C MP #### [facility] [address] [place] [address] Dr. Yaritza Bojorquez Urea nitrogen [Mass/Vol] 8.0 mg/dL Normal 7.0-18.0 [facility] Comment on above: Performed By: #### C MP #### [facility] [address] [place] [address] Dr. Yaritza Bojorquez Urea nitrogen/Creatinine [Mass ratio] 8.4 mg/mg Normal [facility] Comment on above: Performed By: #### C MP #### [facility] [address] [place] [address] Dr. Yaritza Bojorquez URINE MICROSCOPIC ONLYon BACTERIA MODERATE Abnormal NONE SEEN [facility] Comment on above: Performed By: #### Sandoval URIBE UMICRO #### [facility] [address] [place] [address] Dr. Yaritza Bojorquez Bacteria identified Cx Nom (U) INDICATED Normal [facility] Comment on above: Performed By: #### Sandoval URIBE UMICRO #### [facility] [address] [place] [address] Dr. Yaritza Bojorquez CAST NONE SEEN Normal NONE SEEN [facility] Comment on above: Performed By: #### Sandoval URIBE UMICRO #### [facility] [address] [place] [address] Dr. Yaritza Bojorquez Crystals LM Nom (Urine sed) NONE SEEN Normal NONE SEEN [facility] Comment on above: Performed By: #### Sandoval URIBE UMICRO #### [facility] [address] [place] [address] Dr. Yaritza Bojorquez Epithelial cells LM Ql (Urine sed) MANY Abnormal NONE SEEN /RARE [facility] Comment on above: Performed By: #### E RUR, UMICRO #### [facility] [address] [address] [address] Yaritza Bojorquez MUCOUS SMALL Abnormal NONE SEEN [facility] Comment on above: Performed By: #### E RUR, UMICRO #### [facility] [address] [address] [address] Yaritza Bojorquez RBC 2-5 Abnormal 0-2 [facility] Comment on above: Performed By: #### E RUR, UMICRO #### [facility] [address] [address] [address] Yaritza Bojorquez WBC 5-10 Abnormal NONE SEEN [facility] Comment on above: Performed By: #### E RUR, UMICRO #### [facility] [address] [address] [address] Yaritza Bojorquez XR ABD FLAT UP_PA [...] MACK SAMUELS Date: 2022-03-03 07:46 Normal [facility] Covid-19 PCR (CVDTBH)on 07-29 SARS-CoV-2 (COVID-19) RNA KOLE+probe Ql (Unsp spec) Not detected Normal NOT DETECTED [facility] Comment on above: Result Comment: This test is not yet approved or cleared by the [place] FDA. When there are no FDA-approved or cleared tests available, and other criteria are met, FDA can make tests available under an emergency access mechanism called an Emergency Use Authorization (EUA). The EUA for this test is supported by the [place] of Health and Human Service's (HHS's) declaration [...] consistent with SARS-CoV-2. Performed By: #### [facility] #### [facility] [address] [place] [address] Dr. Yaritza Bojorquez Provider Note - ED [...] No Current Medications SIGNIFICANT EVENTS: Immunizations Description:Tdap MAGNETIC RESONANCE IMAGING COORDINATOR: Is : no(1) Is : no(1) RESULTS/VITAL SIGNS VITAL SIGNS: T PRBP SpO2O2(LPM) %FiO2 Method 22-Jun-2019 18:54:[id number] 99 room air, no respiratory support 22-Jun-2019 18:07:[id number] 97 room air, no respiratory support MEDICAL [...] Final Verification: completed Procedure performed by: me Home Energy Consultant Supervisor(s): none Findings: grossly normal anatomy Specimen: no [...] From Triage - ED 22-Jun-2019 18:07 Normal [facility] Risk Screen - Adult Emergenc yon 06-22-2019 Risk Screen - Adult Emergency Preferred Language: Preferred Language: Preferred Language for Discussing Health Care (patient/designee)Guatemalan Advanced Directives: Advance Directive/DNRno Family Violence Adult: Abuse Screen: Are you or have you been threatened or abused physically, emotionally, or sexually by anyoneno Learning Assessment (Patient): Learning Assessment (Patient): Patient is Able to be Assessed for Learningyes Factors Influencing Readiness to Learnacuteness of illness Factors that Impact Ability to Learnnone Devices/Methods Used to Communicatenone Learning Preferencesaudio Cultural Considerationsnone Developmental Considerationsnone Sabianist Considerationsnone Learning Assessment (Other Learner): Learning Assessment (Other Learner): Other learner availableno Pressure Injury/TB/Substance: Pressure Injury: Pressure Injury Present on Admissionno Do you have a coughno Substance Use Current or Former Historynever: Cigarette/Tobacco, e-Cigarette/Vaping, Alcohol, Street Drugs Admission Risk Screen: Significant IndicatorsComplete CAGE: CAGE: Is this an injured patient at a Trauma Center ([facility]/[place]): yes C: Have you ever felt you needed to Cut down on your drinking: no A: Have people Annoyed you by criticizing your drinking: no G: Have you ever felt Guilty about drinking: no E: Have you ever felt you needed a drink first thing in the morning ([employer]-lo[employer] counter) to steady your nerves or to get rid of hangover: no Electronic Signatures: Mehdi Chaney) (Signed 22-Jun-2019 18:11) Authored: Preferred Language, Advanced Directives, Family Violence Adult, Learning Assessment (Patient), Learning Assessment (Other Learner), Pressure Injury/TB/Substance, CAGE Last Updated: 22-Jun-2019 18:11 by Mehdi Chaney (MALU) [facility] Triage - EDon 06-22-2019 Triage - ED [...] Accompanied By: self Language: Spoken Language Preferred: Guatemalan PRIMARY ASSESSMENT CHENTE GONZALEZ's primary assessment is Within Normal Limits. The airway is open and patent. Breathing spontaneous and unlabored with clear breath sounds bilaterally. Circulation is normal with good peripheral pulses. Skin is warm and dry and color is normal for race. Past Medical History: Past Medical History Reviewedyes Electronic Signatures: Nitin Singer (AAYLA) (Signed 22-Jun-2019 18:40) Authored: Triage Mehdi Chaney (RN) (Signed 22-Jun-2019 18:10) Authored: Triage, Past Medical History Last Updated: 22-Jun-2019 18:40 by Nitin Singer (AYALA) Normal [facility] Vital Signs Date Time Vital Sign Value Performing Clinician Facility 05-15-2025 10:03-0400 Body mass index (BMI) [Ratio] 36.08 kg/m2 Deyanira KABA Work Phone: [facility] 05-15-2025 10:03-0400 Body weight 98.34 kg Deyanira Mccloud PA Work Phone: [facility] 05-15-2025 10:03-0400 Diastolic blood pressure 78 mm[Hg] Deyanira Mccloud PA Work Phone: [facility] 05-15-2025 10:03-0400 Systolic blood pressure 140 mm[Hg] Deyanira Mccloud PA Work Phone: [facility] 04-30-2025 15:05-0400 Body mass index (BMI) [Ratio] 35.01 kg/m2 Jaspreet Angie DO Work Phone: [facility] 04-30-2025 15:05-0400 Body weight 95.44 kg Jaspreet Angie DO Work Phone: [facility] 04-30-2025 15:05-0400 Diastolic blood pressure 70 mm[Hg] Jaspreet Angie DO Work Phone: [facility] 04-30-2025 15:05-0400 Systolic blood pressure 120 mm[Hg] Jaspreet Angie DO Work Phone: [facility] 04-17-2025 10:41-0400 Body mass index (BMI) [Ratio] 33.91 kg/m2 Deyanira Mccloud PA Work Phone: [facility] 04-17-2025 10:41-0400 Body weight 92.44 kg Deyanira Denver PA Work Phone: [facility] 04-17-2025 10:41-0400 Diastolic blood pressure 86 mm[Hg] Deyanira Mccloud PA Work Phone: [facility] 04-17-2025 10:41-0400 Systolic blood pressure 134 mm[Hg] Deyanira Mccloud PA Work Phone: [facility] 04-03-2025 10:50-0400 Body mass index (BMI) [Ratio] 33.35 kg/m2 Jaspreet Angie DO Work Phone: [facility] 04-03-2025 10:50-0400 Body weight 90.9 kg Jaspreet Angie DO Work Phone: [facility] 04-03-2025 10:50-0400 Diastolic blood pressure 72 mm[Hg] Jaspreet Angie DO Work Phone: [facility] 04-03-2025 10:50-0400 Systolic blood pressure 130 mm[Hg] Jaspreet Angie DO Work Phone: [facility] 03-05-2025 11:16-0400 Body mass index (BMI) [Ratio] 31.62 kg/m2 Jaspreet Angie DO Work Phone: [facility] 03-05-2025 11:16-0400 Body weight 86.18 kg Jaspreet Angie DO Work Phone: [facility] 03-05-2025 11:16-0400 Diastolic blood pressure 78 mm[Hg] Jaspreet Angie DO Work Phone: [facility] 03-05-2025 11:16-0400 Systolic blood pressure 128 mm[Hg] Jaspreet Angie DO Work Phone: [facility] 06-04-2025 10:57-0400 Body mass index (BMI) [Ratio] 31.53 kg/m2 Willy Mirandaerly [employer] Work Phone: [facility] 01-29-2025 10:57-0400 Body weight 85.96 kg Willy Mirandaerly [employer] Work Phone: [facility] 01-29-2025 10:57-0400 Diastolic blood pressure 80 mm[Hg] Willy Mirandaerly [employer] Work Phone: [facility] 01-29-2025 10:57-0400 Systolic blood pressure 136 mm[Hg] Willy Mirandaerly [employer] Work Phone: [facility] 01-24-2025 11:42-0400 Diastolic blood pressure 70 mm[Hg] [facility]oms Nurse [facility] 01-24-2025 11:42-0400 Systolic blood pressure 142 mm[Hg] Nom Nurse [facility] 01-24-2025 11:21-0400 Body mass index (BMI) [Ratio] 32.01 kg/m2 Nom Nurse [facility] 01-24-2025 11:21-0400 Body weight 87.26 kg [facility] Nurse [facility] 12-23-2024 13:51-0400 Body mass index (BMI) [Ratio] 31.35 kg/m2 Jaspreet Angie DO Work Phone: [facility] 12-23-2024 13:51-0400 Body weight 85.46 kg Jaspreet Angie DO Work Phone: [facility] 12-23-2024 13:51-0400 Diastolic blood pressure 78 mm[Hg] Jaspreet Angie DO Work Phone: [facility] 12-23-2024 13:51-0400 Systolic blood pressure 118 mm[Hg] Jaspreet Angie DO Work Phone: [facility] 08-11-2023 22:07-0500 Diastolic blood pressure 64 mm[Hg] PHYSICIAN NO [facility] 08-11-2023 22:07-0500 Heart rate 71 /min PHYSICIAN NO [facility] 08-11-2023 22:07-0500 Respiratory rate 18 /min PHYSICIAN NO [facility] 08-11-2023 22:07-0500 SaO2% (BldA) [Mass fraction] 99 % PHYSICIAN NO [facility] 08-11-2023 22:07-0500 Systolic blood pressure 126 mm[Hg] PHYSICIAN NO [facility] 08-11-2023 19:17-0500 Body height 170.18 cm PHYSICIAN NO [facility] 08-11-2023 19:17-0500 Body weight 80.73 kg PHYSICIAN NO [facility] Encounters Encounter Date Encounter Type Care Provider Facility Start: 05-15-2025 End: 05-15-2025 Bamboo flowsheet Deyanira KABA Work Phone: [facility] Start: 05-15-2025 End: 05-15-2025 Bamboo flowsheet Deyanira KABA Work Phone: [facility] Start: 05-15-2025 End: 05-15-2025 Office outpatient visit 15 minutes Deyanira KABA Work Phone: [facility] Comment on above: 33 weeks gestation o f ([facility]); Third trimester ([facility]); Gestational diabetes mellitus (GDM), antepartum, gestational diabetes method of control unspecified ([facility]) Start: 04-30-2025 End: 04-30-2025 Office outpatient visit 15 minutes Jaspreet Angie DO Work Phone: [facility] Comment on above: 31 weeks gestation o f ([facility]); Third trimester ([facility]); Gestational diabetes mellitus (GDM), antepartum, gestational diabetes method of control unspecified ([facility]) Start: 04-30-2025 End: 04-30-2025 ambulatory JASPREET ANGIE Not Available Start: 04-17-2025 End: 04-17-2025 Bamboo flowsheet Deyanira KABA Work Phone: [facility] Start: 04-17-2025 End: 04-17-2025 Bamboo flowsheet Deyanira KABA Work Phone: [facility] Start: 04-17-2025 End: 04-17-2025 ambulatory DEYANIRA MCCLOUD Not Available Start: 04-17-2025 End: 04-17-2025 Office outpatient visit 15 minutes Deyanira KABA Work Phone: [facility] Comment on above: Size of fetus incons istent with dates in second trimester ([facility]) (Primary Dx); Third trimester ([facility]); 29 weeks gestation of ([facility]) Start: 04-03-2025 End: 04-03-2025 Bamboo flowsheet Jaspreet Angie DO Work Phone: [facility] Start: 04-03-2025 End: 04-03-2025 Bamboo flowsheet Jaspreet Angie DO Work Phone: [facility] Start: 04-03-2025 End: 04-03-2025 ambulatory JASPREET ANGIE Not Available Start: 04-03-2025 End: 04-03-2025 Office outpatient visit 15 minutes Jaspreet Angie DO Work Phone: [facility] Comment on above: Second trimester pre gnancy ([facility]); 27 weeks gestation of ([facility]) Start: 03-28-2025 End: 03-28-2025 Chart abstracting Scanning Provider External Maternal- Medicine at [facility] Start: 03-21-2025 End: 03-21-2025 Clinisync Result Encounter Jaspreet Angie DO Work Phone: [facility] Unsolicited Start: 03-21-2025 End: 03-21-2025 Clinisync Result Encounter Jaspreet Angie DO Work Phone: [facility] Unsolicited Start: 03-19-2025 End: 03-19-2025 ambulatory JASPREET ANGIE Not Available Start: 03-06-2025 End: 03-06-2025 Clinisync Result Encounter Jaspreet Angie DO Work Phone: [facility] Unsolicited Start: 03-06-2025 End: 03-06-2025 Clinisync Result Encounter Jaspreet Angie DO Work Phone: [facility] Department Unsolicited Start: 03-05-2025 End: 03-05-2025 Bamboo flowsheet Jaspreet Angie DO Work Phone: [facility] Start: 03-05-2025 End: 03-07-2025 Bamboo flowsheet Jaspreet Angie DO Work Phone: [facility] Start: 03-05-2025 End: 03-07-2025 Clinisync Result Encounter Jasprete Angie DO Work Phone: [facility] External Department Unsolicited Start: 03-05-2025 End: 03-05-2025 Patient encounter procedure Jaspreet Angie DO Work Phone: [facility] Start: 03-05-2025 End: 03-05-2025 Periodic preventive med est patient 18-39 yrs Jaspreet Angie DO Work Phone: [facility] Comment on above: Second trimester pre gnancy ([facility]); 23 weeks gestation of ([facility]); Diabetes mellitus screening; Well woman exam with routine gynecological exam; Other insomnia Start: 03-05-2025 End: 03-05-2025 ambulatory JASPREET ANGIE Not Available Start: 02-19-2025 End: 02-19-2025 ambulatory WILLY AVILA Not Available Start: 02-12-2025 End: 02-12-2025 ambulatory JASPREET ANGIE Not Available Start: 01-31-2025 End: 01-31-2025 Clinisync Result Encounter Jaspreet Angie DO Work Phone: [facility] External Department Unsolicited Start: 01-31-2025 End: 01-31-2025 Clinisync Result Encounter Jaspreet Angie DO Work Phone: [facility] External Department Unsolicited Start: 01-29-2025 End: 01-29-2025 Bamboo flowsheet Willy Avila [employer] Work Phone: [facility] Start: 01-29-2025 End: 01-30-2025 Bamboo flowsheet Willy Avila [employer] Work Phone: [facility] Start: 01-29-2025 End: 01-30-2025 External Result Encounter Willy Avila [employer] Work Phone: [facility] External Department Unsolicited Start: 01-29-2025 End: 01-29-2025 ambulatory WILLY AVILA Not Available Start: 01-29-2025 End: 01-29-2025 Office outpatient visit 15 minutes Willy Avila [employer] Work Phone: [facility] Comment on above: Second trimester pre gnancy; 18 weeks gestation of Start: 01-24-2025 End: 01-24-2025 Office outpatient visit 5 minutes [facility] Angie Nurse [facility] Comment on above: GA: 17w3d Start: 01-24-2025 End: 01-24-2025 ambulatory JASPREET ANGIE Not Available Start: 01-06-2025 End: 01-06-2025 ambulatory Cristal Butt Marker Facility:[facility] Start: 01-06-2025 End: 01-06-2025 Departed Referred Cristal Marker DO Work Phone: [facility] Start: 12-23-2024 End: 12-23-2024 Bamboo flowsheet Jaspreet Angie DO Work Phone: [facility] Start: 12-23-2024 End: 12-23-2024 Bamboo flowsheet Jaspreet Angie DO Work Phone: [facility] Start: 12-23-2024 End: 12-23-2024 ambulatory JASPREET ANGIE Not Available Start: 12-23-2024 End: 12-23-2024 Office outpatient visit 15 minutes Jaspreet Angie DO Work Phone: [facility] Comment on above: Hyperemesis gravidar um; Follow-up exam Start: 08-11-2023 End: 08-11-2023 Emergency department patient visit PHYSICIAN SASKIA [facility] Work Phone: Start: 03-03-2022 End: 03-03-[address] DOCTOR BARBOZA Facility:[facility] Start: 08-23-2021 End: 08-23-2021 ambulatory ADEOLA COHEN Facility:[facility] Procedures Date Procedure Procedure Detail Performing Clinician Start: 05-15-2025 Urnls dip stick/tabl et rgnt non-auto w/o micrscp Deyanira KABA Work Phone: Start: 04-30-2025 Urnls dip stick/tabl et rgnt non-auto w/o micrscp Jaspreet Angie DO Work Phone: Start: 04-17-2025 Urnls dip stick/tabl et rgnt non-auto w/o micrscp Jaspreet Angie DO Work Phone: Start: 04-03-2025 Urnls dip stick/tabl et rgnt non-auto w/o micrscp Jaspreet Angie DO Work Phone: Start: 03-21-2025 GLUCOSE TOLERANCE 3 HOUR Jaspreet Angie DO Work Phone: Start: 03-06-[address] gtt 3 specimens Not In System Ref Prov Start: 03-06-2025 GLUCOSE 1 HOUR Jaspreet Fa zio DO Work Phone: Start: 03-05-2025 Urnls dip stick/tabl et rgnt non-auto w/o micrscp Jaspreet Angie DO Work Phone: Start: 03-05-2025 IGP,APTIMA HPV,AGE GDLN Jaspreet Angie DO Work Phone: Start: 02-01-2025 Iaad ia hepatitis b surface antigen Not In System Ref Prov Start: 01-31-2025 BOX TEST Jaspreet Fazi o DO Work Phone: Start: 01-31-2025 Antibody rubella Not In System Ref Prov Start: 01-31-2025 Antibody screen Scannin g External Start: 01-31-2025 Drug scrn 1+ class nonchromo Not In System Ref Prov Start: 01-31-2025 Hemoglobin glycosyla sonja a1c Scanning Provider External Start: 01-31-2025 HIV 1&2 AB/AG SCREEN (P24 AG) Not In System Ref Prov Start: 01-31-2025 TYPE AND SCREEN Not In System Ref Prov Start: 01-29-2025 URINARY TRACT INFECT ION (HTRX) Willy Avila NP Work Phone: Start: 01-29-2025 Urnls dip stick/tabl et rgnt non-auto w/o micrscp Willy Avila NP Work Phone: Start: 01-24-2025 Urnls dip stick/tabl et rgnt non-auto w/o micrscp Jaspreet Angie DO Work Phone: Start: 08-11-2023 Plain [...] Treatment Date Care Activity Detail Author Start: 06-02-2025 End: 06-02-2025 Patient encounter procedure 06/02/2025 11:20 AM EDT Routine [facility] [address] [place] [address] Willy Avila, WILLIE [address] [place] [address] [facility] Start: 04-30-2025 End: 10-28-2025 US biophysical profile w non stress test US biophysical profile w non stress test Imaging Routine Gestational diabetes mellitus (GDM), antepartum, gestational diabetes method of control unspecified ([facility]) Expected: 04/30/2025 (Approximate), Expires: 10/28/2025 [facility] Work Phone: Comment on above: Expected: 04/30/2025 (Approximate), Expires: 10/28/2025 Start: 04-28-2025 Influenza vaccination Influenza Vacc ine [facility] Start: 04-17-2025 End: 08-17-2025 US for US OB follow up transabdominal approach Imaging Routine Size of fetus inconsistent with dates in second trimester ([facility]) Expected: 04/17/2025, Expires: 08/17/2025 [facility] Work Phone: Comment on above: Expected: 04/17/2025 , Expires: 08/17/2025 Start: 04-17-2025 End: 04-17-2025 Patient encounter procedure 04/17/2025 9:50 AM EDT Routine [facility] [address] [place] [address] Deyanira Mccloud PA [address] [place] [address] [facility] Start: 04-03-2025 End: 04-03-2025 ambulatory 04/03/2025 1:30 PM EDT Support Visit Maternal- Medicine at [facility] [address] [place] [phone] Rimma Richey RN [address] [facility], [address] [place] [address] Nikky Gonzalez LD Karl, Deborah, LD [address] [place] [address] [facility]- Medicine at [facility] Start: 04-03-2025 End: 04-03-2025 Patient encounter procedure 04/03/2025 10:40 AM EDT Routine [facility] [address] [place] [phone] Jaspreet Adams, DO [address] [place] [address] [facility] Start: 03-19-2025 End: 03-19-2025 Professional / ancillary services management 03/19/2025 9:30 AM EDT Ancillary Procedure [facility] [address] [facility] [place] [phone] [facility] Start: 03-05-2025 End: 03-05-2026 CBC panel - Blood by Automated count CBC Lab Routine Diabetes mellitus screening Expected: 03/05/2025 (Approximate), Expires: 03/05/2026 [facility] Comment on above: Expected: 03/05/2025 (Approximate), Expires: 03/05/2026 Start: 03-05-2025 End: 03-05-2026 Measurement of glucose 1 hour after glucose challenge for glucose tolerance test Glucose tolerance, 1 hour Lab Routine Diabetes mellitus screening Expected: 03/05/2025 (Approximate), Expires: 03/05/2026 [facility] Comment on above: Expected: 03/05/2025 (Approximate), Expires: 03/05/2026 Start: 03-05-2025 End: 03-05-2025 Patient encounter procedure 03/05/2025 11:00 AM EDT Routine [facility] [address] [place] [phone] Jaspreet Adams, DO [address] [place] [address] Arrived [facility] Comment on above: Arrived Start: 02-27-2025 End: 02-27-2025 Patient encounter procedure 02/27/2025 8:50 AM EDT Routine [facility] [address] [facility] [address] [facility] [place] [phone] Jaspreet Adams, DO [address] [place] [address] [facility] Start: 02-12-2025 End: 02-12-2025 Clinical Support 02/12/2025 9:00 AM EDT Clinical Support [facility] [address] [facility] [place] [phone] [facility] Start: 01-29-2025 End: 01-29-2025 Patient encounter procedure 01/29/2025 10:20 AM EDT Routine [facility] [address] [place] [phone] Willy Avila, WILLIE [address] [place] [phone] [facility] Start: 01-24-2025 End: 01-24-2026 ABO/Rh ABO/Rh Lab Routine Missed menses , unspecified gestational age Expected: 01/24/2025 (Approximate), Expires: 01/24/2026 [facility] Comment on above: Expected: 01/24/2025 (Approximate), Expires: 01/24/2026 Start: 01-24-2025 End: 03-26-2025 Alpha fetoprotein, maternal Alpha fetoprotein, maternal Lab Routine Encounter for supervision of normal first in first trimester Expected: 01/24/2025 (Approximate), Expires: 03/26/2025 [facility] Comment on above: Expected: 01/24/2025 (Approximate), Expires: 03/26/2025 Start: 01-24-2025 End: 01-24-2026 Blood type and Indirect antibody screen panel - Blood Type and screen Lab Routine Missed menses , unspecified gestational age Expected: 01/24/2025 (Approximate), Expires: 01/24/2026 [facility] Work Phone: Comment on above: Expected: 01/24/2025 (Approximate), Expires: 01/24/2026 Start: 01-24-2025 End: 05-30-2026 Drugs of abuse panel - Urine by Screen method Rapid drug screen, urine Lab Routine , unspecified gestational age Encounter for supervision of normal first in first trimester Expected: 01/24/2025 (Approximate), Expires: 01/24/2026 [facility] Comment on above: Expected: 01/24/2025 (Approximate), Expires: 01/24/2026 Start: 01-10-2025 End: 01-10-2025 ambulatory 01/10/2025 9:30 AM EDT Initial [facility] [address] [place] [address] [facility] Start: 01-10-2025 End: 01-10-2025 Professional / ancillary services management 01/10/2025 9:00 AM EDT Ancillary Procedure [facility] [address] [place] [address] [facility] Start: 01-06-2025 Bacteria identified in Urine by Culture Urine Culture [facility] Start: 01-06-2025 Urine culture [facility] Start: 2018 Screening for malign ant neoplasm of cervix Pap Smear [facility] Start: 2016 DTaP,Tdap and Td Vaccines (1 - Tdap) DTaP,Tdap and Td Vaccines (1 - Tdap) [facility] Start: 12-07-2015 Adult BMI Screening Adult BMI Screen ing [facility] Start: 2009 Depression Screening Depression Scre ening [facility] Start: 2009 Tobacco Screening Tobacco Screening [facility] Bacteria identified in Urine by Culture Urine culture Microbiology Routine Missed menses Ordered: 01/24/2025 [facility] Comment on above: Ordered: 01/24/2025 Bacteria identified in Urine by Culture Urine culture Microbiology Routine Second trimester Ordered: 01/29/2025 [facility] Work Phone: Comment on above: Ordered: 01/29/2025 CBC W Auto Different ial panel - Blood CBC and differential Lab Routine Missed menses , unspecified gestational age Ordered: 01/24/2025 [facility] Comment on above: Ordered: 01/24/2025 Cytology Cervical or vaginal smear or scraping study Pap Smear Pathology and Cytology Routine Well woman exam with routine gynecological exam Ordered: 03/05/2025 [facility] Work Phone: Comment on above: Ordered: 03/05/2025 Hemoglobin A1c/Hemoglobin.total in Blood Hemoglobin A1c Lab Routine Missed menses , unspecified gestational age Ordered: 01/24/2025 [facility] Comment on above: Ordered: 01/24/2025 Hepatitis B virus surface Ag [Presence] in Serum or Plasma by Immunoassay Hepatitis B surface antigen Lab Routine Missed menses , unspecified gestational age Ordered: 01/24/2025 [facility] Comment on above: Ordered: 01/24/2025 Hepatitis C virus Ab [Presence] in Serum or Plasma by Immunoassay Hepatitis C antibody Lab Routine Missed menses , unspecified gestational age Ordered: 01/24/2025 [facility] Comment on above: Ordered: 01/24/2025 HIV-1/HIV-2 antigen/antibody combination immunoassay HIV-1 and HIV-2 antibodies Lab Routine Missed menses , unspecified gestational age Ordered: 01/24/2025 [facility] Comment on above: Ordered: 01/24/2025 Patient Education Head injury in adults Blunt Abdominal Trauma ED Blunt Chest Trauma ED [facility] Work Phone: Patient referral [facility] Work Phone: Reagin Ab [Presence] in Serum by RPR RPR Lab Routine Missed menses , unspecified gestational age Ordered: 01/24/2025 [facility] Comment on above: Ordered: 01/24/2025 Rubella antibody, IgG Rubella an tibody, IgG Lab Routine Missed menses , unspecified gestational age Ordered: 01/24/2025 [facility] Comment on above: Ordered: 01/24/2025 Immunizations Immunization Date Immunization Notes Care Provider Fa dhaval 08-11-2023 tetanus toxoid, redu christie diphtheria toxoid, and acellular pertussis vaccine, adsorbed PHYSICIAN NO [facility] Payers Date Payer Category Payer Private Health Insurance [employer] [id number] 2025 Self-pay [id number] 2024 Medicaid [id number] 2024 Medicaid [id number] 1997 Unknown [id number] 1997 Unknown [id number] 1997 Unknown [id number] 1997 Unknown [id number] 1997 Unknown [id number] 1997 Unknown [id number] 1995 Unknown [id number]. 1259 1995 Unknown [id number] 2.16.840.1.565052.3.579.2. 1258 1995 Unknown [id number] 2.16.840.1.652702.3.579.2. 9 1995 Unknown [id number] 2.16.840.1.099738.3.579.2. 9 1997 Unknown [id number] 2.16.840.1.088031.3.579.2. 1259 1995 Unknown [id number] 2.16.840.1.303829.3.579.2. 1259 1997 Unknown [id number] 2.16.840.1.355758.3.579.2. 1259 1959 Unknown [id number] Unknown Regular Auto/Liability [id number] Unknown HCAP/HFA/FAP Active [id number] Unknown [id number] 2.16.840.1.395340.3.579.2. 531 Unknown Regular Auto/Liability [id number] Unknown HCAP/HFA/FAP Active [id number] Social History Date Type Detail Facility Start: 08-11-2023 End: 08-11-2023 Tobacco smoking status MO[facility] Never smoked tobacco (finding) [facility] Start: 1995 Sex Assigned At Female F [facility] Tobacco smoking stat us MOIS Tobacco smoking consumption unknown [facility] Start: 12-22-2024 Gender identity Identifies as female gender (finding) [facility] Sexual orientation Not on file [facility] Start: 01-07-2025 End: 03-26-2025 Sex Female (finding) [facility] Start: 10-08-2024 [facility] Start: 1995 Sex assigned at Not on file [facility] Medical Equipment Procedure Code Equipment Code Equipment Origin al Text Equipment Identifier Dates 1 strip by In Vi tro route Daily Use in the morning prior to breakfast, 1 hour after each meal for a total of 4times daily. [id number] Start: 03-24-2025 End: 04-23-2025 1 each by In Vit ro route Daily Use to check FSBS four times daily [id number] Start: 03-24-2025 End: 04-23-2025 Clinical Notes 12-23-2024 to 05-15-2025 SENDY Fan - 05/15/2025 9:50 AM Dina Pendleton, LORRAINE - 04/30/2025 3:00 PM SENDY Pascual - 04/17/2025 9:50 AM Ilsa Matt, LORRAINE - 04/03/2025 10:40 AM EDT Note Date & Type Note Facility 05-15-2025 History of Present illness Narrative Reason for Appointment: Patient ID: Chente Gonzalez is a 29 y.o. female who presents for No chief complaint on file. Patient presents today for Return OB appointment. MEDICATIONS Current Outpatient Medications Medication Instructions Alcohol Swabs (Alcohol Prep Pad) 70 % pads 1 Pad, Topical, Daily, Use four times daily to check FSBS. Blood Glucose Monitoring Suppl ([employer]mitted[employer] Glucometer) w/Device kit 1 kit, Does not [...] Vitals: Estimated body mass index is 36.08 kg/m as calculated from the following: Height as of 21: 5' 5 . Weight as of this encounter: 216 lb 12.8 oz. BP: 140/78 Patient's last menstrual period was 10/04/2024 (approximate). ASSESSMENT & PLAN ICD-10-CM 1. 33 weeks gestation of ([facility]) Z3A.33 POCT urinalysis dipstick manually resulted 2. Third trimester ([facility]) Z34.93 POCT urinalysis dipstick manually resulted 3. Gestational diabetes mellitus (GDM), antepartum, gestational diabetes method of control unspecified ([facility]) O24.419 Return OB: Patient presents today for [...] of: SENDY Fan documented in this encounter [facility] 04-30-2025 History of Present illness Narrative Reason for Appointment: Patient ID: Chente Gonzalez is a 29 y.o. female who presents for Routine Visit Patient presents today for Return OB appointment. MEDICATIONS Current Outpatient Medications Medication Instructions Alcohol Swabs (Alcohol Prep Pad) 70 % pads 1 Pad, Topical, Daily, Use four times daily to check FSBS. Blood Glucose Monitoring Suppl ([employer] Glucometer) w/Device kit 1 kit, Does not [...] nursing note reviewed. Exam conducted with a arc welding machine operator present. Vitals: Estimated body mass index is 35.01 kg/m as calculated from the following: Height as of 21: 5' 5 . Weight as of this encounter: 210 lb 6.4 oz. BP: 120/70 Patient's last menstrual period was 10/04/2024 (approximate). ASSESSMENT & PLAN ICD-10-CM 1. 31 weeks gestation of ([facility]) Z3A.31 POCT urinalysis dipstick manually resulted 2. Third trimester ([facility]) Z34.93 POCT urinalysis dipstick manually resulted 3. Gestational diabetes mellitus (GDM), antepartum, gestational diabetes method of control unspecified ([facility]) O24.419 US biophysical profile w non stress test Return OB: Patient presents today for a routine obstetrics appointment. Patient is currently 31w1d . Patient states she is doing well but has complaints of being tired due to current . Patient has verbalizes frequent movement. labor precautions was discussed/given and patient was instructed to perform kick counts three times a day. Orders Placed This Encounter Procedures US biophysical profile w non stress test POCT urinalysis dipstick manually resulted Follow Up: Patient is to return to office in 2 week for routine OB appointment. Documented by Rahel Pendleton LPN on behalf of: Jaspreet Adams DO documented in this encounter [facility] 04-17-2025 History of Present illness Narrative Reason for Appointment: Patient ID: Chente Gonzalez is a 29 y.o. female who presents for No chief complaint on file. Patient presents today for Return OB appointment. MEDICATIONS Current Outpatient Medications Medication Instructions Alcohol Swabs (Alcohol Prep Pad) 70 % pads 1 Pad, Topical, Daily, Use four times daily to check FSBS. Blood Glucose Monitoring Suppl ([employer] Glucometer) w/Device kit 1 kit, Does not apply, Daily, Use four times daily to check FSBS. In the morning prior to breakfast & 1 hour after each meal for a total of 4times daily. doxylamine (UNISOM) 25 mg, Oral, Nightly PRN Glucose Blood (Blood Glucose Test) strip 1 strip, In Vitro, Daily, Use in the morning prior to breakfast, 1 hour after each meal for a total of 4times daily. Klor-Con 20 MEQ packet DISSOLVE 1 PACKET IN 4 OZ OF WATER OR OTHER BEVERAGE AND DRINK DAILY FOR 7 DAYS Lancets Ultra Thin misc 1 each, In Vitro, Daily, Use to check FSBS four times daily metoclopramide (Reglan) 10 MG tablet TAKE 1 [...] reviewed. Vitals: Estimated body mass index is 33.91 kg/m as calculated from the following: Height as of 12/01/20: 5' 5 . Weight as of this encounter: 203 lb 12.8 oz. BP: 134/86 Patient's last menstrual period was 10/04/2024 (approximate). ASSESSMENT & PLAN ICD-10-CM 1. Third trimester ([facility]) Z34.93 POCT urinalysis dipstick manually resulted 2. 29 weeks gestation of ([facility]) Z3A.29 POCT urinalysis dipstick manually resulted Return OB: Patient presents today for a routine obstetrics appointment. Patient is currently 29w2d . Patient states she is doing well [...] of: SENDY Fan documented in this encounter [facility] 04-03-2025 History of Present illness Narrative Reason for Appointment: Patient ID: Chente Gonzalez is a 29 y.o. female who presents for Routine Visit Patient presents today for Return OB appointment. MEDICATIONS Current Outpatient Medications Medication Instructions Alcohol Swabs (Alcohol Prep Pad) 70 % pads 1 Pad, Topical, Daily, Use four times daily to check FSBS. Blood Glucose Monitoring Suppl (D-Admittedly Glucometer) w/Device kit 1 kit, Does not apply, Daily, Use four times daily to check FSBS. In the morning prior to breakfast & 1 hour after each meal for a total of 4times daily. doxylamine (UNISOM) 25 mg, Oral, Nightly PRN Glucose Blood (Blood Glucose Test) strip 1 strip, In Vitro, Daily, Use in the morning prior to breakfast, 1 hour after each meal for a total of 4times daily. Klor-Con 20 MEQ packet DISSOLVE 1 PACKET IN 4 OZ OF WATER OR OTHER BEVERAGE AND DRINK DAILY FOR 7 DAYS Lancets Ultra Thin misc 1 each, In Vitro, Daily, Use to check FSBS four times daily metoclopramide (Reglan) 10 MG tablet TAKE 1 [...] nursing note reviewed. Exam conducted with a arc welding machine operator present. Vitals: Estimated body mass index is 33.35 kg/m as calculated from the following: Height as of 12/01/20: 5' 5 . Weight as of this encounter: 200 lb 6.4 oz. BP: 130/72 Patient's last menstrual period was 10/04/2024 (approximate). ASSESSMENT & PLAN ICD-10-CM 1. Second trimester ([facility]) Z34.92 Urine dip 2. 27 weeks gestation of ([facility]) Z3A.27 Urine dip Patient presents today for a routine obstetrics appointment. Patient is currently 27w2d with a Estimated Date of Delivery: 07/01/25. Patient brought in FSBS logs for review and patient still desires to hold off on [facility] referral at this time, referral was previously sent on 03/24/25 and when contacted by [facility] patient will inform them that she will postpone scheduling at this time. Patient to return to clinic in 2 weeks for routine OB appointment. Documented by Nissa Matt LPN on behalf of: Jaspreet Adams DO documented in this encounter [facility] 03-05-2025 History of Present illness Narrative Reason for Appointment: Patient ID: [...] nursing note reviewed. Exam conducted with a arc welding machine operator present. Vitals: Estimated body mass index is 31.62 kg/m as calculated from the following: Height as of 12/01/20: 5' 5 . Weight as of this encounter: 190 lb. BP: 128/78 Patient's last menstrual period was 10/04/2024 (approximate). ASSESSMENT & PLAN ICD-10-CM 1. Second trimester ([facility]) Z34.92 POCT urinalysis dipstick manually resulted 2. 23 weeks gestation of ([facility]) Z3A.23 3. Diabetes mellitus screening Z13.1 CBC Glucose tolerance, 1 hour CBC Glucose tolerance, 1 hour 4. Well woman exam with routine gynecological exam Z01.419 Pap Smear Return OB/Annual Exam: Patient presents today for a annual exam/routine obstetrics appointment. Patient is currently 23w1d . Patient states she is doing well but has complaints of nausea in the morning. Pap was obtained without difficulty and patient was given orders for repeat anatomy scan and glucola and CBC to be obtained. Pt has inability to sleep rx for unisom faxed to pharmacy. Orders Placed This Encounter Procedures CBC Glucose tolerance, 1 hour POCT urinalysis dipstick manually resulted Follow Up: Patient is to schedule annual exam for next year and return to office in 4 weeks for OB appointment. Documented by Rahel Pendleton LPN on behalf of: Jaspreet Adams DO documented in this encounter [facility] 01-29-2025 History of Present illness Narrative Reason for Appointment: Patient ID: [...] nursing note reviewed. Exam conducted with a arc welding machine operator present. Vitals: Estimated body mass index is [...] week for routine OB appointment. Documented by Willy Avila NP on behalf of: Willy Avila NP documented in this encounter [facility] 01-24-2025 History of Present illness Narrative Reason for Appointment: Patient ID: [...] or undercooked meat, and stay away from [facility]. Patient has also been advised to not [...] Kalyn Jacob MA documented in this encounter [facility] 12-23-2024 History of Present illness Narrative Reason for Appointment: Patient ID: [...] nursing note reviewed. Exam conducted with a arc welding machine operator present. Vitals: Estimated body mass index is [...] by Nissa Matt LPN on behalf of: Jaspreet Adams DO documented in this encounter [facility] Evaluation note No assessment inform ation available [facility] Work Phone: Evaluation note Diagnosis Hyperemesis gravidarum Mild hyperemesis gravidarum, unspecified as to episode of care Follow-up exam Unspecified follow-up examination [facility] Diagnosis Missed menses , unspecified gestational age Encounter for supervision of normal first in first trimester [facility] Diagnosis Second trimester state, incidental 18 weeks gestation of [facility] Diagnosis Second trimester ([facility]) state, incidental 23 weeks gestation of ([facility]) Diabetes mellitus screening Screening for diabetes mellitus Well woman exam with routine gynecological exam Routine gynecological examination Other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
[2025-05-15 11:39] VITALS: BP 139/84; PULSE 75
== END 2025-05-15 11:42 | disposition home or self-care (01) ==
LOC: FBCO 11:01 → FBC 11:02
PROVIDERS: Visit Provider Obstetrics & Gynecology
DX: O99.283 Endocrine, nutritional and metabolic diseases complicating pregnancy, third trimester (principal); Z3A.00 Weeks of gestation of pregnancy not specified
CPT/HCPCS: 59025

== ENCOUNTER 2025-05-19 10:40 | Observation (INO) | payer OTHER, SELFPAY ==
[2025-05-19] VITALS (19 sets, daily range): BP systolic 117–150; BP diastolic 58–90; PULSE 73–110; TEMP 37
--- NOTE | 2025-05-19 10:10 | US_ITS ---
The [address] [address] Patient Name: JORGE ALBERTO LUNA MRN: [id number] date: 1995 Sex: F Assigned Patient Location: [facility] Current Patient Location: [facility] Accession/Order Number: [id number] Exam Date: 05/19/2025 10:15 Report Date: 05/19/2025 10:54 At the request of: TYRELL THAPA DO Procedure: US OB BPP w non-stress BIOPHYSICAL PROFILE: CLINICAL INFORMATION: Gestational diabetes mellitus COMPARISON: None There is a single live intrauterine gestation in cephalic presentation. The reported gestational age is 33 weeks 6 days. The heart rate measures 144 beats per minute. FINDINGS: TONE: 1 or more episodes of activity extension and flexion of extremity or opening and closing of the hand [Y] 2/2 GROSS BODY MOVEMENTS: 3 or more discrete body or limb movements [Y] 2/2 BREATHING MOVEMENTS: 1 or more episodes of breathing lasting at least 30 seconds [Y] 2/2 DOYLE: A single deepest vertical pocket of amniotic fluid greater than 2 cm [Y] 2/2 DOYLE: 7.7 cm. This is below the 5th percentile. Total score: 8/8 US/ OB BPP w non-stress IMPRESSION: NORMAL BIOPHYSICAL PROFILE. OLIGOHYDRAMNIOS. Impression dictated by: Rahel Mae M.D. 05/19/2025 10:54 AM Dictation Location: [facility] Electronically authenticated by: [id number] Y Date: 05/19/2025 10:54
--- OUTSIDE RECORDS SUMMARY | 2025-05-19 10:10 | XMS_ITS | CCD ---
Author Organization [facility] Care Team Providers Care Fare Enforcement Officer Name Role Phone ADEOLA COHEN Admitting Unavailable ADEOLA COHEN Attending Unavailable MISC, DR BUTLER Primary Care Unavailable ADEOLA COHEN [...] AVILA Attending Unavailable WILLY AVILA Referring Unavailable ANGIEADRY FELIXY Attending Unavailable ANGIE, JASPREET Attending Unavailable DEYANIRA MCCLOUD Attending Unavailable DEYANIRA MCCLOUD Referring Unavailable ANGIEJASPREET FELIX Attending Unavailable DEYANIRA MCCLOUD Attending Unavailable Allergies Allergy Classification Reported Allergen(s) Allergy Type Date of Onset Reaction(s) Facility (1 source) Penicillins Drug allergy (disorder) 09-28-2014 [facility] Repository (20 sources) Penicillins Drug Allergy 12-23-2024 [facility] (1 source) Penicillins Drug allergy (disorder) 02-22-2022 [facility] Repository Medications Current Medications Medication Drug Class(es) Dates Sig (Normalized) Sig (Original) Blood Glucose Monitoring Suppl (D-Care Glucometer) w/Device kit (11 sources) Start: 03-24-2025 End: 03-24-2026 Blood Glucose Monitoring Suppl (D-Care Glucometer) w/Device kit Indications: Gestational diabetes mellitus (GDM), antepartum, gestational diabetes method of control unspecified ([facility]) , Elevated glucose tolerance test 1 kit [...] antepartum, gestational diabetes method of control unspecified ([facility]) , Elevated glucose tolerance test Apply 1 [...] 25 mg supposito ry Discontinued 25 MG TN Q6H as needed for nausea and vomiting [...] Drug Class(es) Dates Sig (Normalized) Sig (Original) [id number] 200 actuat albuterol 0.09 mg/actuat metered dose [...] D2) 1,250 mcg (50,000 unit) Capsule Discontinued 34021 UNIT PO every week 4 December 27, [...] UA Negative Negative - 4(70) +++ mg/dL [facility] Blood, UA Positive Negative - 50 Derick/mcL [facility] Comment on above: 1+ Clarity, UA Clear [facility] Color, UA Straw [facility] Glucose, UA Negative Negative - 2000(110) ++++ mg/dL [facility] Interpretation and review of laboratory results Abnormal [facility] Ketones, UA Negative Negative - 160(16) ++++ mg/dL [facility] Leukocytes, UA Negative Negative - 500+++ Julio/mcL [facility] Nitrite, UA Negative Negative - Positive [facility] pH, UA 6 5 - 9 [facility] Protein, UA Positive Negative - 2000(20) ++++ mg/dL [facility] Comment on above: 2+ Spec Grav, UA 1.02 1 - 1.03 [facility] Urobilinogen, UA 1.0 0.2 - 12 mg/dL [facility] US OB FOLLOW UP TRANSABDOMIN AL APPROACHon [...] UA Negative Negative - 4(70) +++ mg/dL [facility] Blood, UA Positive Negative - 50 Derick/mcL [facility] Comment on above: 1+ Clarity, UA Clear [facility] Color, UA Yellow [facility] Glucose, UA Negative Negative - 1999(110) ++++ mg/dL [facility] Interpretation and review of laboratory results Abnormal [facility] Ketones, UA Negative Negative - 160(16) ++++ mg/dL [facility] Leukocytes, UA Negative Negative - 500+++ Julio/mcL [facility] Nitrite, UA Negative Negative - Positive [facility] pH, UA 6 5 - 9 [facility] Protein, UA Positive Negative - 2000(20) ++++ mg/dL [facility] Spec Grav, UA 1.01 1 - 1.03 [facility] Urobilinogen, UA 1.0 0.2 - 12 mg/dL [facility] Urinalysis macro (dipstick) panel (U)on 04-17-2025 Bilirubin, UA Negative Negative - 4(70) +++ mg/dL [facility] Blood, UA Positive Negative - 50 Derick/mcL [facility] Clarity, UA Clear [facility] Color, UA Yellow [facility] Glucose, UA Negative Negative - 2000(110) ++++ mg/dL [facility] Interpretation and review of laboratory results Abnormal [facility] Ketones, UA Negative Negative - 160(16) ++++ mg/dL [facility] Leukocytes, UA Positive Negative - 500+++ Julio/mcL [facility] Nitrite, UA Negative Negative - Positive [facility] pH, UA 6 5 - 9 [facility] Protein, UA Negative Negative - 1999(20) ++++ mg/dL [facility] Spec Grav, UA 1.015 1 - 1.03 [facility] Urobilinogen, UA 1.0 0.2 - 12 mg/dL [facility] Urinalysis macro (dipstick) panel (U)on 04-03-2025 Bilirubin, UA Negative Negative - 4(70) +++ mg/dL [facility] Blood, UA Positive Negative - 50 Derick/mcL [facility] Clarity, UA Clear [facility] Color, UA Yellow [facility] Glucose, UA Negative Negative - 1999(110) ++++ mg/dL [facility] Interpretation and review of laboratory results Abnormal [facility] Ketones, UA Negative Negative - 160(16) ++++ mg/dL [facility] Leukocytes, UA Negative Negative - 500+++ Julio/mcL [facility] Nitrite, UA Negative Negative - Positive [facility] pH, UA 6.5 5 - 9 [facility] Protein, UA Negative Negative - 1999(20) ++++ mg/dL [facility] Spec Grav, UA 1.015 1 - 1.03 [facility] Urobilinogen, UA 1.0 0.2 - 12 mg/dL [facility] GLUCOSE TOLERANCE 3 HOURon 0 03-21-2025 GLUCOSE TOLERANCE 3 HOUR High mg/dL [facility] Comment on above: GLU FAST 86 (<95) Co l: 03/21/25 0856 GLU 1HR 181H (<180) Col: 03/21/25 1002 GLU 2HR 162H (<155) Col: 03/21/25 1102 GLU 3HR 75 (<140) Col: 03/21/25 1202 Interpretation and review of laboratory results Abnormal [facility] US OB LIMITED 1+ FETUSESon 0 [...] II, MD, PHD at 21-Mar-2025 08:31:03 AM [facility] Normal Not Available Comment on above: Order Comment: US OB INCOMPLETE ANATOMY Estimated Date of Delivery: 07/01/25 Gestational Age as of 02/24/2025: 21w6d IGP,APTIMA HPV,AGE GDLNon AGE GDLN ACOG TESTING Note . [facility] Comment on above: TESTS RESULT FLAG U NITS REF RANGE LAB Clinician Provided Cytology Information Source.............[employer] Other.............. No. of containers..01 ThinPrep Vial Age Algo ACOG Mandie... -25 09 FLAG LEGEND: L-Low Normal,H-High Normal,LL-Alert Low,HH-Alert High <-Panic Low,>-Panic High,A-Abnormal,AA-Critical Abnormal Performed at: 01 =G [facility] [address] [id number] Mckenna Polanco MD, IGP, RFX APTIMA HPV ASCU Note . [facility] Comment on above: TESTS RESULT FLAG UN ITS REF RANGE LAB DIAGNOSIS: 02 NEGATIVE FOR INTRAEPITHELIAL LESION OR MALIGNANCY. Specimen adequacy: 02 Satisfactory for evaluation. No endocervical component is identified. Performed by: 02 Vernell Pineda, Law Office Assistant ([facility]) . 02 Note: Note 02 The [...] <-Panic Low,>-Panic High,A-Abnormal,AA-Critical Abnormal Performed at: 02 WB [facility] [address] [place] [address] Mckenna Polanco MD, Performed at: =G - [facility] [address] [id number] Powerhouse Engineer: Mckenna Polanco MD, Phone: [phone] Performed at: [address] [id number] Powerhouse Engineer: Mckenna Polanco MD, Phone: [phone] [facility] GLUCOSE 1 HOURon 03-06-2025 Glucose [Mass/Vol] 141 mg/dL High NINF - 13 0 mg/dL [facility] Interpretation and review of laboratory results Abnormal [facility] Glucose tolerance, 1 houron 03-06-2025 Glucose Tolerance Test 1 Hour 141 [facility] No Panel Informationon 03-06 [facility] Urinalysis macro (dipstick) panel (U)on 03-05-2025 Bilirubin, UA Negative Negative - 4(70) +++ mg/dL [facility] Blood, UA Negative Negative - 50 Derick/mcL [facility] Clarity, UA Clear [facility] Color, UA Yellow [facility] Glucose, UA Negative Negative - 2000(110) ++++ mg/dL [facility] Interpretation and review of laboratory results Normal [facility] Ketones, UA Negative Negative - 160(16) ++++ mg/dL [facility] Leukocytes, UA Negative Negative - 500+++ Julio/mcL [facility] Nitrite, UA Negative Negative - Positive [facility] pH, UA 6 5 - 9 [facility] Protein, UA Negative Negative - 2000(20) ++++ mg/dL [facility] Spec Grav, UA 1.01 1 - 1.03 [facility] Urobilinogen, UA 0.2 0.2 - 12 mg/dL [facility] US OB 14+ WEEKS ANATOMY SCAN on [...] II, MD, PHD at 20-Feb-2025 09:47:05 AM [facility] Normal Not Available Comment on above: Order Comment: US OB ANATOMY SINGLE W US OB CERVICAL LENGTH Estimated Date of Delivery: 07/01/25 Gestational Age as of 02/12/2025: 20w1d HBV surface Ag IA Qlon 02-01 Hepatitis B Surface Antigen Negative [facility] BOX TESTon 01-31-2025 BOX TEST SENT OUT [employer] [facility] [employer] [address]OX[employer] [facility] [employer] BOX[address] 01/31/25 [facility] BOX [facility] Drug Screen, Urineon 025 Amphetamine/Methamphet amine Negative [facility] Barbiturates Negative [facility] Benzodiazepines Negative [facility] Cocaine Metabolite Negative [facility] Ecstasy Negative [facility] Methadone Negative [facility] Opiates Negative [facility] Oxycodone Negative [facility] Phencyclidine Negative [facility] Thc Marijuana, Urine Positive [facility] HIV 1+2 Ab+HIV1 p24 Ag IA Ql on 01-31-2025 HIV 1&2 AB/AG Non-Reactive [facility] Hemoglobin A1con 01-31-2025 HbA1c (Bld) [Mass fraction] 4.9 % 4.0 - 6.0 % [facility] No Panel Informationon 01-31 [facility] Rubella IGG immune statuson 01-31-2025 Rubella immune IgG 7.29 [facility] Type and screenon 01-31-2025 Abo/Rh(D) Negative [facility] No Panel Informationon 01-30 STAPHYLOCOCCUS EPIDERMIDIS, HAEMOLYTICUS, [...] S Healthcare STAPHYLOCOCCUS AUREUS 0 NOM S [facility] STAPHYLOCOCCUS AUREUS Not detected N OMS [facility] STREPTOCOCCUS AGALACTIAE (GROUP B STREP) 0 [facility] STREPTOCOCCUS AGALACTIAE (GROUP B STREP) Not detected [facility] STREPTOCOCCUS PYOGENES (GROUP A STREP) 0 [facility] STREPTOCOCCUS PYOGENES (GROUP A STREP) Not detected [facility] Urinalysis macro (dipstick) panel (U)on 01-29-2025 Bilirubin, UA Negative Negative - 4(70) +++ mg/dL [facility] Blood, UA Positive Negative - 50 Derick/mcL [facility] Comment on above: Trace-intact Clarity, UA Clear [facility] Color, UA Yellow [facility] Glucose, UA Negative Negative - 2000(110) ++++ mg/dL [facility] Interpretation and review of laboratory results Abnormal [facility] Ketones, UA Negative Negative - 160(16) ++++ mg/dL [facility] Leukocytes, UA Negative Negative - 500+++ Julio/mcL [facility] Nitrite, UA Negative Negative - Positive [facility] pH, UA 7 5 - 9 [facility] Protein, UA Trace Negative - 2000(20) ++++ mg/dL [facility] Spec Grav, UA 1.02 1 - 1.03 [facility] Urobilinogen, UA 1.0 0.2 - 12 mg/dL [facility] HCG ( test) Ql (U)o n 01-24-2025 Interpretation and review of laboratory results Abnormal [facility] Preg Test, Ur Positive Negative [facility] US OB LIMITED 1+ FETUSESon 0 01-24-2025 [...] II, MD, PHD at 27-Jan-2025 10:23:04 AM [facility] Normal Not Available Comment on above: Order Comment: US OB TRANSVAGINAL No LMP recorded. Urinalysis macro (dipstick) panel (U)on 01-24-2025 Bilirubin, UA Negative Negative - 4(70) +++ mg/dL [facility] Blood, UA Positive Negative - 50 Derick/mcL [facility] Comment on above: Trace-Intact Clarity, UA Clear [facility] Color, UA Yellow [facility] Glucose, UA Negative Negative - 2000(110) ++++ mg/dL [facility] Interpretation and review of laboratory results Abnormal [facility] Ketones, UA Negative Negative - 160(16) ++++ mg/dL [facility] Leukocytes, UA Negative Negative - 500+++ Julio/mcL [facility] Nitrite, UA Negative Negative - Positive [facility] pH, UA 7 5 - 9 [facility] Protein, UA Negative Negative - 2000(20) ++++ mg/dL [facility] Spec Grav, UA 1.02 1 - 1.03 [facility] Urobilinogen, UA 0.2 0.2 - 12 mg/dL [facility] Urine Cultureon 01-06-2025 Bacteria identified Cx Nom (U) No Growth 2 Days PERFORMED BY: [place] [address] PATHOLOGIST CONTRACT SPECIALIST RAHUL HOLCOMB M.D. Normal [facility] Comment on above: Performed By: #### C UU #### [address] Amphetamine Screen Ql (U)Ord ered By: Denny Azevedo on 08-11-2023 Amphetamines Ql (U) Negative Negative [facility] Amylase [Enzymatic activity/ volume] in Serum or PlasmaOrdered By: Denny Azevedo on 08-11-2023 Amylase [Catalytic activity/Vol] 32 U/L 29-103 [facility] Aspartate aminotransferase [ Enzymatic activity/volume] in Serum or PlasmaOrdered By: Denny Azevedo on 08-11-2023 AST [Catalytic activity/Vol] 24 U/L 13-39 [facility] Automated erythrocytes count in urine sediment (number/area)Ordered By: Denny Azevedo on 08-11-2023 RBC Auto (Urine sed) [#/Area] 10-19 [HPF] 0-4 [facility] Automated leukocytes count i n urine sediment (number/area)Ordered By: Denny Azevedo on 08-11-2023 WBC Auto (Urine sed) [#/Area] 3-4 [HPF] 0-4 [facility] Barbiturates [Presence] in U rine by Screen methodOrdered By: Denny Azevedo on 08-11-2023 Barbiturates Screen Ql (U) Negative Negative [facility] Basophils Auto (Bld) [#/Vol] Ordered By: Denny Azevedo on 08-11-2023 Basophils (Bld) [#/Vol] 0.1 10*3/uL 0.0-0.2 [facility] Basophils/100 WBC Auto (Bld) Ordered By: Denny Azevedo on 08-11-2023 Basophils/100 WBC (Bld) 0.9 % . [facility] Benzodiazepines Screen Ql (U )Ordered By: Denny Azevedo on 08-11-2023 Benzodiazepines Ql (U) Negative Negative [facility] Benzoylecgonine [Presence] i n Urine by Screen methodOrdered By: Denny Azevedo on 08-11-2023 Benzoylecgonine Screen Ql (U) Negative Negative [facility] Bilirubin Test strip Ql (U)O rdered By: Denny Azevedo on 08-11-2023 Bilirubin Ql (U) Negative Negative [facility] Cannabinoids [Presence] in U rine by Screen methodOrdered By: Denny Azevedo on 08-11-2023 Cannabinoids Screen Ql (U) Positive Negative [facility] Comment on above: These are unconfirme d results and should not be used for legal purposes. Drug Cut-Off Concentration: AMPH 1000 ng/mL THOMAS 200 ng/mL ARTHUR 200 ng/mL COCM 300 ng/mL OP 300 ng/mL PCP 25 ng/mL THC 20 ng/mL Carbon dioxide, total [Moles /volume] in Serum or PlasmaOrdered By: Denny Azevedo on 08-11-2023 CO2 [Moles/Vol] 17.8 mmol/L 21.0-31.0 [facility] Chloride [Moles/volume] in S marline or PlasmaOrdered By: Denny Azevedo on 08-11-2023 Chloride [Moles/Vol] 108 mmol/L 98-107 [facility] Color Auto (U)Ordered By: French Azevedo on 08-11-2023 Color (U) Yellow Yellow [facility] Creatine kinase [Enzymatic a ctivity/volume] in Serum or PlasmaOrdered By: Denny Azevedo on 08-11-2023 CK [Catalytic activity/Vol] 225 U/L 30-223 [facility] Creatinine [Mass/volume] in Serum or PlasmaOrdered By: Denny Azevedo on 08-11-2023 Creatinine [Mass/Vol] 0.68 mg/dL 0.60-1.20 [facility] Eosinophils Auto (Bld) [#/Vo l]Ordered By: Denny Azevedo on 08-11-2023 Eosinophils (Bld) [#/Vol] 0.1 10*3/uL 0.0-0.45 [facility] Eosinophils/100 WBC Auto (Bl d)Ordered By: Denny Azevedo on 08-11-2023 Eosinophils/100 WBC (Bld) 1.3 % . [facility] Erythrocyte distribution wid th Auto (RBC) [Ratio]Ordered By: Denny Azevedo on 08-11-2023 Erythrocyte distribution width (RBC) [Ratio] 12.9 % 11.9-15.3 [facility] Ethanol [Mass/volume] in Ser um or PlasmaOrdered By: Denny Azevedo on 08-11-2023 Ethanol [Mass/Vol] mg/dL [facility] Ethanol [Mass/Vol] TNP [facility] Comment on above: Test not performed Glucose [Mass/volume] in Ser um or PlasmaOrdered By: Denny Azevedo on 08-11-2023 Glucose [Mass/Vol] 109 mg/dL 70-100 [facility] Comment on above: ADA recommended refe rence rangeRandom Glucose Reference Range is dependent on time and content of last meal. Glucose of more than 200 mg/dL in a nonstressed, ambulatory subject supports the diagnosis of Diabetes Mellitus. HCG ( test) IA.rapi d Ql (U)Ordered By: Denny Azevedo on 08-11-2023 HCG ( test) Ql (U) Negative [facility] Hematocrit Auto (Bld) [Volum e fraction]Ordered By: Denny Azevedo on 08-11-2023 Hematocrit (Bld) [Volume fraction] 40.4 % 34.0-46.4 [facility] Hemoglobin [Mass/volume] in BloodOrdered By: Denny Azevedo on 08-11-2023 Hemoglobin (Bld) [Mass/Vol] 14.2 g/dL 11.8-15.4 [facility] INR in Platelet poor plasma by Coagulation assayOrdered By: Denny Azevedo on 08-11-2023 INR Coag (PPP) [Relative time] 1.0 {INR} [facility] Comment on above: INR Therapeutic [...] on 08-11-2023 Ketones (U) [Mass/Vol] Trace Negative [facility] Laboratory - UrinalysisOrder ed By: Denny Azevedo on 08-11-2023 Hyaline casts LM Ql (Urine sed) 0-8 [LPF] 0-8 [facility] Leukocytes [#/volume] correc sonja for nucleated erythrocytes in Blood by Automated counOrdered By: Denny Azevedo on 08-11-2023 WBC corrected for nucl RBC Auto (Bld) [#/Vol] 7.9 10*3/uL 3.8-11.6 [facility] Lipase [Enzymatic activity/v olume] in Serum or PlasmaOrdered By: Denny Azevedo on 08-11-2023 Lipase [Catalytic activity/Vol] 13.0 U/L 11.0-82.0 [facility] Lymphocytes Auto (Bld) [#/Vo l]Ordered By: Denny Azevedo on 08-11-2023 Lymphocytes (Bld) [#/Vol] 1.8 10*3/uL 1.00-4.8 [facility] Lymphocytes/100 WBC Auto (Bl d)Ordered By: Denny Azevedo on 08-11-2023 Lymphocytes/100 WBC (Bld) 23.1 % . [facility] MCH Auto (RBC) [Entitic mass ]Ordered By: Denny Azevedo on 08-11-2023 MCH (RBC) [Entitic mass] 30.4 pg 24.7-34.3 [facility] MCHC Auto (RBC) [Mass/Vol]Or dered By: Denny Azevedo on 08-11-2023 MCHC (RBC) [Mass/Vol] 35.1 g/dL 32.0-35.0 [facility] MCV Auto (RBC) [Entitic vol] Ordered By: Denny Azevedo on 08-11-2023 MCV (RBC) [Entitic vol] 86.7 fL 80-100 [facility] Monocyte distribution width [Entitic volume] in Blood by AutomatedOrdered By: Denny Azevedo on 08-11-2023 Monocyte distribution width Auto (Bld) [Entitic vol] 17.99 % 0.00-20.00 [facility] Monocytes Auto (Bld) [#/Vol] Ordered By: Denny Azevedo on 08-11-2023 Monocytes (Bld) [#/Vol] 0.5 10*3/uL 0.0-0.8 [facility] Monocytes/100 WBC Auto (Bld) Ordered By: Denny Azevedo on 08-11-2023 Monocytes/100 WBC (Bld) 6.9 % . [facility] Neutrophils Auto (Bld) [#/Vo l]Ordered By: Denny Azevedo on 08-11-2023 Neutrophils (Bld) [#/Vol] 5.4 10*3/uL 1.8-7.7 [facility] Neutrophils/100 WBC Auto (Bl d)Ordered By: Denny Azevedo on 08-11-2023 Neutrophils/100 WBC (Bld) 67.8 % . [facility] Nitrite Test strip Ql (U)Ord ered By: eDnny Azevedo on 08-11-2023 Nitrite Ql (U) Negative Negative [facility] No Panel InformationOrdered By: Denny Azevedo on 08-11-2023 Estimated GFR (CKD-EPI) > 60.0 mL/Min [facility] Creatinine Clearance (Chem 138.27 [facility] Nucleated erythrocytes [Pres ence] in Blood by Automated countOrdered By: Denny Azevedo on 08-11-2023 Nucleated RBC Auto Ql (Bld) 0.1 /100{WBC} 0-0.5 [facility] Opiates [Presence] in Urine by Screen methodOrdered By: Denny Azevedo on 08-11-2023 Opiates Screen Ql (U) Negative Negative [facility] Phencyclidine Screen Ql (U)O rdered By: Denny Azevedo on 08-11-2023 Phencyclidine Ql (U) Negative Negative [facility] Platelet mean volume Auto (B ld) [Entitic vol]Ordered By: Denny Azevedo on 08-11-2023 Platelet mean volume (Bld) [Entitic vol] 7.7 fL 6.3-10.7 [facility] Platelets Auto (Bld) [#/Vol] Ordered By: Denny Azevedo on 08-11-2023 Platelets (Bld) [#/Vol] 307 10*3/uL 150-450 [facility] Potassium [Moles/volume] in Serum or PlasmaOrdered By: Denny Azevedo on 08-11-2023 Potassium [Moles/Vol] 3.3 mmol/L 3.5-5.1 [facility] Protein Auto test strip (U) [Mass/Vol]Ordered By: Denny Azevedo on 08-11-2023 Protein (U) [Mass/Vol] 30 mg/dL Negative [facility] Prothrombin time (PT)Ordered By: Denny Azevedo on 08-11-2023 PT Coag (PPP) [Time] 12.1 s 9.0-12.9 [facility] Comment on above: A hematocrit value g reater than 55% may lead to inaccurate results in coagulation testing. Patients having hematocrit values >55% require a special collection tube for coagulation studies. Please contact the laboratory at [phone] for redraw instructions. RBC Auto (Bld) [#/Vol]Ordere d By: Denny Azevedo on 08-11-2023 RBC (Bld) [#/Vol] 4.66 10*6/uL 3.60-5.00 [facility] Serum or plasma anion gap de terminationOrdered By: Denny Azevedo on 08-11-2023 Anion gap [Moles/Vol] 15.5 mmol/L 6.0-15.0 [facility] Sodium [Moles/volume] in Ser um or PlasmaOrdered By: Denny Azevedo on 08-11-2023 Sodium [Moles/Vol] 138 mmol/L 136-145 [facility] Specific gravity Auto test s trip (U) [Rel density]Ordered By: Denny Azevedo on 08-11-2023 Specific gravity (U) [Rel density] 1.026 1.001-1.03 0 [facility] Squamous epithelial cells de tection in urine sediment by light microscopyOrdered By: Denny Azevedo on 08-11-2023 Epithelial cells.squamous LM Ql (Urine sed) 0-1 [HPF] 0-2 [facility] Urea nitrogen [Mass/volume] in Serum or PlasmaOrdered By: Denny Azevedo on 08-11-2023 Urea nitrogen [Mass/Vol] 11 mg/dL 7-25 [facility] Urine bacteria detection by automated methodOrdered By: Denny Azevedo on 08-11-2023 Bacteria Auto Ql (U) None seen None Seen [facility] Urine clarity by refractomet ry automatedOrdered By: Denny Azevedo on 08-11-2023 Clarity Refractometry automated (U) Clear Clear [facility] Urine glucose measurement by automated test strip (mass/volume)Ordered By: Denny Azevedo on 08-11-2023 Glucose Auto test strip (U) [Mass/Vol] Normal mg/dL Normal [facility] Urine hemoglobin detection b y automated test stripOrdered By: Denny Azevedo on 08-11-2023 Hemoglobin Auto test strip Ql (U) 2+ Negative [facility] Urine leukocyte esterase det ection by automated test stripOrdered By: Denny Azevedo on 08-11-2023 Leukocyte esterase Auto test strip Ql (U) Negative Negative [facility] Urobilinogen Auto test strip (U) [Mass/Vol]Ordered By: Denny Azevedo on 08-11-2023 Urobilinogen (U) [Mass/Vol] Normal mg/dL Normal [facility] WBC Auto (Bld) [#/Vol]Ordere d By: Denny Azevedo on 08-11-2023 WBC (Bld) [#/Vol] 7.9 10*3/uL 3.8-11.6 [facility] pH Auto test strip (U)Ordere d By: Denny Azevedo on 08-11-2023 pH (U) 6.5 [pH] 5.0-9.0 [facility] BILIRUBIN CONJUGATED (DIRECT )on 03-03-2022 BILI, CONJUGATED 0.3 mg/dL Critically high 0.0-0.2 [facility] Comment on above: Performed By: #### D FERNANDEZ #### [facility] [address] [place] [address] Dr. Yaritza Bojorquez CBC AUTO DIFFon 03-03-2022 BASO # 0.1 103/ul Normal 0.0-0.1 [facility] Comment on above: Performed By: #### C BC #### [facility] [address] [place] [address] Dr. Yaritza Bojorquez Basophils/100 WBC (Bld) 0.5 % Normal 0.2-2.0 [facility] Comment on above: Performed By: #### C BC #### [facility] [address] [place] [address] Dr. Yaritza Bojorquez EO # 0.0 103/ul Normal 0.0-0.7 [facility] Comment on above: Performed By: #### C BC #### [facility] [address] [place] [address] Dr. Yaritza Bojorquez Eosinophils/100 WBC (Bld) 0.1 % Critically low 0.9-7.0 [facility] Comment on above: Performed By: #### C BC #### [facility] [address] [place] [address] Dr. Yaritza Bojorquez Erythrocyte distribution width (RBC) [Ratio] 12.1 % Normal 11.0-15.0 [facility] Comment on above: Performed By: #### C BC #### [facility] [address] [place] [address] Dr. Yaritza Bojorquez Hematocrit (Bld) [Volume fraction] 45.0 % Normal 36.0-48.0 [facility] Comment on above: Performed By: #### C BC #### [facility] [address] [place] [address] Dr. Yaritza Bojorquez Hemoglobin (Bld) [Mass/Vol] 16.5 g/dL Critically high 12.0-16.0 [facility] Comment on above: Performed By: #### C BC #### [facility] [address] [place] [address] Dr. Yaritza Bojorquez IG # 0.05 10e3/ul Critically high 0.00-0.03 [facility] Comment on above: Performed By: #### C BC #### [facility] [address] [place] [address] Dr. Yaritza Bojorquez IG % 0.3 % Normal 0.0-0.5 [facility] Comment on above: Performed By: #### C BC #### [facility] [address] [place] [address] Dr. Yaritza Bojorquez LYMPH # 3.2 103/ul Normal 1.2-3.8 [facility] Comment on above: Performed By: #### C BC #### [facility] [address] [place] [address] Dr. Yaritza Bojorquez Lymphocytes/100 WBC (Bld) 21.6 % Normal 20.5-60.0 [facility] Comment on above: Performed By: #### C BC #### [facility] [address] [place] [address] Dr. Yaritza Bojorquez MANUAL DIFF REQ NO Normal [facility] Comment on above: Performed By: #### C BC #### [facility] [address] [place] [address] Dr. Yaritza Bojorquez MCH (RBC) [Entitic mass] 30.7 pg Normal 26.7-34.0 [facility] Comment on above: Performed By: #### C BC #### [facility] [address] [address] [address] Yaritza Bojorquez MCHC (RBC) [Mass/Vol] 36.7 g/dL Critically high 29.9-35.2 [facility] Comment on above: Performed By: #### C BC #### [facility] [address] [place] [address] Dr. Yaritza Bojorquez MCV (RBC) [Entitic vol] 83.8 fL Normal 81.0-99.0 [facility] Comment on above: Performed By: #### C BC #### [facility] [address] [place] [address] Dr. Yaritza Bojorquez MONO # 0.8 103/ul Normal 0.3-0.8 [facility] Comment on above: Performed By: #### C BC #### [facility] [address] [place] [address] Dr. Yaritza Bojorquez Monocytes/100 WBC (Bld) 5.3 % Normal 1.7-12.0 [facility] Comment on above: Performed By: #### C BC #### [facility] [address] [place] [address] Dr. Yaritza Bojorquez NEUT # 10.5 103/ul Critically high 1.4-6.5 [facility] Comment on above: Performed By: #### C BC #### [facility] [address] [place] [address] Dr. Yaritza Bojorquez Neutrophils/100 WBC (Bld) 72.2 % Normal 43.0-75.0 [facility] Comment on above: Performed By: #### C BC #### [facility] [address] [place] [address] Dr. Yaritza Bojorquez Platelet mean volume (Bld) [Entitic vol] 10.0 fL Normal 9.5-13.5 [facility] Comment on above: Performed By: #### C BC #### [facility] [address] [place] [address] Dr. Yaritza Bojorquez PLT 450 103/ul Normal 150-450 [facility] Comment on above: Performed By: #### C BC #### [facility] [address] [place] [address] Dr. Yaritza Bojorquez RBC 5.37 106/ul Normal 4.20-5.40 [facility] Comment on above: Performed By: #### C BC #### [facility] [address] [place] [address] Dr. Yaritza Bojorquez WBC 14.6 103/ul Critically high 4.0-11.0 [facility] Comment on above: Performed By: #### C BC #### [facility] [address] [place] [address] Dr. Yaritza Bojorquez CULTURE URINEon 03-03-2022 CULTURE URINE Culture Observations : LIGHT GROWTH OF MIXED GENITAL KRYSTAL. NO POTENTIAL PATHOGENS SEEN. Normal [facility] Comment on above: Performed By: #### U RCX #### [facility] [address] [place] [address] Dr. Yaritza Bojorquez ER URINE PROFILEon 2 Bilirubin Ql (U) Negative Normal NEGATIVE [facility] Comment on above: Performed By: #### BABAK MAERO #### [facility] [address] [place] [address] Dr. Yaritza Bojorquez Clarity (U) CLEAR Normal CLEAR [facility] Comment on above: Performed By: #### BABAK MAERO #### [facility] [address] [place] [address] Dr. Yaritza Bojorquez Color (U) DK. YELLOW Normal YELLOW [facility] Comment on above: Performed By: #### BABAK MAERO #### [facility] [address] [place] [address] Dr. Yaritza Bojorquez ERUAHD A micrscopic examina tion will be performed if indicated. Normal [facility] Comment on above: Performed By: #### BABAK MAERO #### [facility] [address] [place] [address] Dr. Yaritza Bojorquez Glucose Ql (U) Negative Normal NEGATIVE [facility] Comment on above: Performed By: #### BABAK MAERO #### [facility] [address] [place] [address] Dr. Yaritza Bojorquez Hemoglobin Ql (U) Negative Normal NEGATIVE [facility] Comment on above: Performed By: #### ALBA MAEICRO #### [facility] [address] [place] [address] Dr. Yaritza Bojorquez Ketones Ql (U) >=80 Abnormal NEGATIVE [facility] Comment on above: Performed By: #### Sandoval URIBE UMICRO #### [facility] [address] [place] [address] Dr. Yaritza Bojorquez LEUKOCYTES TRACE Abnormal NEGATIVE [facility] Comment on above: Performed By: #### ALBA MAEICRO #### [facility] [address] [place] [address] Dr. Yaritza Bojorquez Nitrite Ql (U) Negative Normal NEGATIVE [facility] Comment on above: Performed By: #### BABAK MAERO #### [facility] [address] [place] [address] Dr. Yaritza Bojorquez pH (U) 6.5 [pH] Normal 5-9 [facility] Comment on above: Performed By: #### BABAK MAERO #### [facility] [address] [place] [address] Dr. Yaritza Bojorquez Protein (U) [Mass/Vol] 100 mg/dL Abnormal NEGAT TORSTEN/ TRACE [facility] Comment on above: Performed By: #### ALBA MAEICRO #### [facility] [address] [place] [address] Dr. Yaritza Bojorquez SPEC GRAVITY 1.025 Normal 1.005-<=1. 025 [facility] Comment on above: Performed By: #### ALBA MAEICRO #### [facility] [address] [place] [address] Dr. Yaritza Bojorquez UR MICRO IND INDICATED Normal [facility] Comment on above: Performed By: #### Sandoval URIBE UMICRO #### [facility] [address] [place] [address] Dr. Yaritza Bojorquez Urobilinogen Qn (U) 4 {Emir'U}/dL Abnormal 0.2 - 1.0 [facility] Comment on above: Performed By: #### E TAYLA URIBE #### [facility] [address] [place] [address] Dr. Yaritza Bojorquez PROF 14(COMP METB)on 022 Albumin [Mass/Vol] 4.5 g/dL Normal 3.4-5.0 [facility] Comment on above: Performed By: #### C MP #### [facility] [address] [place] [address] Dr. Yaritza Bojorquez Albumin/Globulin [Mass ratio] 1.2 {ratio} Normal [facility] Comment on above: Performed By: #### C MP #### [facility] [address] [place] [address] Dr. Yaritza Bojorquez ALP [Catalytic activity/Vol] 48 U/L Normal 46-116 [facility] Comment on above: Performed By: #### C MP #### [facility] [address] [place] [address] Dr. Yaritza Bojorquez ALT [Catalytic activity/Vol] 25 U/L Normal 14-59 [facility] Comment on above: Performed By: #### C MP #### [facility] [address] [place] [address] Dr. Yarizta Bojorquez Anion gap [Moles/Vol] 17.8 mmol/L Normal [facility] Comment on above: Performed By: #### C MP #### [facility] [address] [place] [address] Dr. Yaritza Bojorquez AST [Catalytic activity/Vol] 11 U/L Critically low 15-37 [facility] Comment on above: Performed By: #### C MP #### [facility] [address] [place] [address] Dr. Yaritza Bojorquez Bilirubin [Mass/Vol] 1.4 mg/dL Critically high 0.2-1.0 [facility] Comment on above: Performed By: #### C MP #### [facility] [address] [place] [address] Dr. Yaritza Bojorquez Calcium [Mass/Vol] 9.3 mg/dL Normal 8.5-10.1 [facility] Comment on above: Performed By: #### C MP #### [facility] [address] [place] [address] Dr. Yaritza Bojorquez Chloride [Moles/Vol] 98 mmol/L Normal 98-107 [facility] Comment on above: Performed By: #### C MP #### [facility] [address] [place] [address] Dr. Yaritza Bojorquez CO2 [Moles/Vol] 19.1 mmol/L Critically low 21.0-32.0 [facility] Comment on above: Performed By: #### C MP #### [facility] [address] [place] [address] Dr. Yaritza Bojorquez Creatinine [Mass/Vol] 0.95 mg/dL Normal 0.55-1.02 [facility] Comment on above: Performed By: #### C MP #### [facility] [address] [place] [address] Dr. Yaritza Bojorquez EGFR-AF POLISH >60 Normal >=60 [facility] Comment on above: Performed By: #### C MP #### [facility] [address] [place] [address] Dr. Yaritza Bojorquez EGFR-NON AF POLISH >60 Normal >=60 [facility] Comment on above: Performed By: #### C MP #### [facility] [address] [place] [address] Dr. Yaritza Bojorquez Globulin (S) [Mass/Vol] 3.6 g/dL Normal [facility] Comment on above: Performed By: #### C MP #### [facility] [address] [place] [address] Dr. Yaritza Bojorquez Glucose [Mass/Vol] 138 mg/dL Critically high 74-106 [facility] Comment on above: Performed By: #### C MP #### [facility] [address] [place] [address] Dr. Yaritza Bojorquez Potassium [Moles/Vol] 2.9 mmol/L Critically low 3.5-5.1 [facility] Comment on above: Performed By: #### C MP #### [facility] [address] [address] [address] Yaritza Bojorquez Protein [Mass/Vol] 8.1 g/dL Normal 6.4-8.2 [facility] Comment on above: Performed By: #### C MP #### [facility] [address] [place] [address] Dr. Yaritza Bojorquez Sodium [Moles/Vol] 132 mmol/L Critically low 136-145 [facility] Comment on above: Performed By: #### C MP #### [facility] [address] [place] [address] Dr. Yaritza Bojorquez Urea nitrogen [Mass/Vol] 8.0 mg/dL Normal 7.0-18.0 [facility] Comment on above: Performed By: #### C MP #### [facility] [address] [place] [address] Dr. Yaritza Bojorquez Urea nitrogen/Creatinine [Mass ratio] 8.4 mg/mg Normal [facility] Comment on above: Performed By: #### C MP #### [facility] [address] [place] [address] Dr. Yaritza Bojorquez URINE MICROSCOPIC ONLYon BACTERIA MODERATE Abnormal NONE SEEN [facility] Comment on above: Performed By: #### Sandoval URIBE UMICRO #### [facility] [address] [place] [address] Dr. Yaritza Bojorquez Bacteria identified Cx Nom (U) INDICATED Normal [facility] Comment on above: Performed By: #### Sandoval URIBE UMICRO #### [facility] [address] [place] [address] Dr. Yaritza Bojorquez CAST NONE SEEN Normal NONE SEEN [facility] Comment on above: Performed By: #### E JOJO UMICRO #### [facility] [address] [place] [address] Dr. Yaritza Bojorquez Crystals LM Nom (Urine sed) NONE SEEN Normal NONE SEEN [facility] Comment on above: Performed By: #### Sandoval URIBE UMICRO #### [facility] [address] [place] [address] Dr. Yaritza Bojorquez Epithelial cells LM Ql (Urine sed) MANY Abnormal NONE SEEN /RARE [facility] Comment on above: Performed By: #### E RUR, UMICRO #### [facility] [address] [address] [address] Yaritza Bojorquez MUCOUS SMALL Abnormal NONE SEEN [facility] Comment on above: Performed By: #### E RUR, UMICRO #### [facility] [address] [address] [address] Yaritza Bojorquez RBC 2-5 Abnormal 0-2 [facility] Comment on above: Performed By: #### E RUR, UMICRO #### [facility] [address] [place] [address] Dr. Yaritza Bojorquez WBC 5-10 Abnormal NONE SEEN [facility] Comment on above: Performed By: #### E RUR, UMICRO #### [facility] [address] [place] [address] Dr. Yaritza Bojorquez XR ABD FLAT UP_PA [...] MACK SAMUELS Date: 2022-03-03 07:46 Normal [facility] Covid-19 PCR (CVDTB)on 07-29 SARS-CoV-2 (COVID-19) RNA KOLE+probe Ql (Unsp spec) Not detected Normal NOT DETECTED [facility] Comment on above: Result Comment: This test is not yet approved or cleared by the [place] FDA. When there are no FDA-approved or cleared tests available, and other criteria are met, FDA can make tests available under an emergency access mechanism called an Emergency Use Authorization (EUA). The EUA for this test is supported by the [place] of Health and Human Service's (HHS's) declaration [...] consistent with SARS-CoV-2. Performed By: #### C [facility] #### [facility] [address] [place] [address] Dr. 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 Risk Screen - Adult Emergenc yon 06-22-2019 Risk Screen - Adult Emergency Preferred Language: Preferred Language: Preferred Language for Discussing Health Care (patient/designee)[place]an Advanced Directives: Advance Directive/DNRno Family Violence Adult: Abuse Screen: Are you or have you been threatened or abused physically, emotionally, or sexually by anyoneno Learning Assessment (Patient): Learning Assessment (Patient): Patient is Able to be Assessed for Learningyes Factors Influencing Readiness to Learnacuteness of illness Factors that Impact Ability to Learnnone Devices/Methods Used to Communicatenone Learning Preferencesaudio Cultural Considerationsnone Developmental Considerationsnone Tenriism Considerationsnone Learning Assessment (Other Learner): Learning Assessment (Other Learner): Other learner availableno Pressure Injury/TB/Substance: Pressure Injury: Pressure Injury Present on Admissionno Do you have a coughno Substance Use Current or Former Historynever: Cigarette/Tobacco, e-Cigarette/Vaping, Alcohol, Street Drugs Admission Risk Screen: Significant IndicatorsComplete CAGE: CAGE: Is this an injured patient at a Trauma Center ([facility]/[place]): yes C: Have you ever felt you needed to Cut down on your drinking: no A: Have people Annoyed you by criticizing your drinking: no G: Have you ever felt Guilty about drinking: no E: Have you ever felt you needed a drink first thing 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 Triage - EDon 06-22-2019 Triage - [...] Accompanied By: self Language: Spoken Language Preferred: [place]an PRIMARY ASSESSMENT CHENTE GONZALEZ's primary assessment is [...] 22-Jun-2019 18:40 by Nitin Singer (AYALA) Normal [facility] Vital Signs Date Time Vital Sign Value Performing Clinician Facility 05-15-2025 10:03-0400 Body mass index (BMI) [Ratio] 36.08 kg/m2 Deyanira Mccloud PA Work Phone: [facility] 05-15-2025 10:03-0400 Body weight 98.34 kg Deyanira Mccloud PA Work Phone: [facility] 05-15-2025 10:03-0400 Diastolic blood pressure 78 mm[Hg] Deyanira Mccloud PA Work Phone: [facility] 05-15-2025 10:03-0400 Systolic blood pressure 140 mm[Hg] Deyanira Mccloud PA Work Phone: [facility] 04-30-2025 15:05-0400 Body mass index (BMI) [Ratio] 35.01 kg/m2 Jaspreet Angie DO Work Phone: [facility] 04-30-2025 15:05-0400 Body weight 95.44 kg Jaspreet Angie DO Work Phone: [facility] 04-30-2025 15:05-0400 Diastolic blood pressure 70 mm[Hg] Jaspreet Angie DO Work Phone: [facility] 04-30-2025 15:05-0400 Systolic blood pressure 120 mm[Hg] Jaspreet Angie DO Work Phone: [facility] 04-17-2025 10:41-0400 Body mass index (BMI) [Ratio] 33.91 kg/m2 Deyanira Mccloud PA Work Phone: [facility] 04-17-2025 10:41-0400 Body weight 92.44 kg Deyanira Juan PA Work Phone: [facility] 04-17-2025 10:41-0400 Diastolic blood pressure 86 mm[Hg] Deyanira Juan PA Work Phone: [facility] 04-17-2025 10:41-0400 Systolic blood pressure 134 mm[Hg] Deyanira Mccloud PA Work Phone: [facility] 04-03-2025 10:50-0400 Body mass index (BMI) [Ratio] 33.35 kg/m2 Jaspreet Angie DO Work Phone: [facility] 04-03-2025 10:50-0400 Body weight 90.9 kg Jaspreet Angie DO Work Phone: [facility] 04-03-2025 10:50-0400 Diastolic blood pressure 72 mm[Hg] Jaspreet Angie DO Work Phone: [facility] 04-03-2025 10:50-0400 Systolic blood pressure 130 mm[Hg] Jaspreet Angie DO Work Phone: [facility] 03-05-2025 11:16-0400 Body mass index (BMI) [Ratio] 31.62 kg/m2 Jaspreet Angie DO Work Phone: [facility] 03-05-2025 11:16-0400 Body weight 86.18 kg Jaspreet Angie DO Work Phone: [facility] 03-05-2025 11:16-0400 Diastolic blood pressure 78 mm[Hg] Jaspreet Angie DO Work Phone: [facility] [facility] 03-05-2025 11:16-0400 Systolic blood pressure 128 mm[Hg] Jaspreet Angie DO Work Phone: [facility] 01-29-2025 10:57-0400 Body mass index (BMI) [Ratio] 31.53 kg/m2 Willy Avila CAR DISPATCHER Work Phone: [facility] 01-29-2025 10:57-0400 Body weight 85.96 kg Willy Austin CAR DISPATCHER Work Phone: [facility] 01-29-2025 10:57-0400 Diastolic blood pressure 80 mm[Hg] Willy Austin CAR DISPATCHER Work Phone: [facility] 01-29-2025 10:57-0400 Systolic blood pressure 136 mm[Hg] Willy Austin CAR DISPATCHER Work Phone: [facility] 01-24-2025 11:42-0400 Diastolic blood pressure 70 mm[Hg] Noms Nurse [facility] 01-24-2025 11:42-0400 Systolic blood pressure 142 mm[Hg] [facility]oms Nurse [facility] 01-24-2025 11:21-0400 Body mass index (BMI) [Ratio] 32.01 kg/m2 [facility] Nurse [facility] 01-24-2025 11:21-0400 Body weight 87.26 kg Nom Nurse [facility] 12-23-2024 13:51-0400 Body mass index (BMI) [Ratio] 31.35 kg/m2 Jaspreet Angie DO Work Phone: [facility] 12-23-2024 13:51-0400 Body weight 85.46 kg Jaspreet Angie DO Work Phone: [facility] 12-23-2024 13:51-0400 Diastolic blood pressure 78 mm[Hg] Jaspreet Angie DO Work Phone: [facility] 12-23-2024 13:51-0400 Systolic blood pressure 118 mm[Hg] Jaspreet Angie DO Work Phone: [facility] 08-11-2023 22:07-0500 Diastolic blood pressure 64 mm[Hg] PHYSICIAN NO [facility] 08-11-2023 22:07-0500 Heart rate 71 /min PHYSICIAN NO [facility] 08-11-2023 22:07-0500 Respiratory rate 18 /min PHYSICIAN NO [facility] 08-11-2023 22:07-0500 SaO2% (BldA) [Mass fraction] 99 % PHYSICIAN NO [facility] 08-11-2023 22:07-0500 Systolic blood pressure 126 mm[Hg] PHYSICIAN NO [facility] 08-11-2023 19:17-0500 Body height 170.18 cm PHYSICIAN NO [facility] 08-11-2023 19:17-0500 Body weight 80.73 kg PHYSICIAN NO [facility] Encounters Encounter Date Encounter Type Care Provider Facility Start: 05-15-2025 End: 05-15-2025 Bamboo flowsheet Deyanira KABA Work Phone: [facility] Start: 05-15-2025 End: 05-15-2025 Bamboo aaronheet Deyanira KABA Work Phone: [facility] Start: 05-15-2025 End: 05-15-2025 ambulatory DEYANIRA MCCLOUD Not Available Start: 05-15-2025 End: 05-15-2025 Office outpatient visit 15 minutes Deyanira KABA Work Phone: [facility] Comment on above: 33 weeks gestation o f ([facility]); Third trimester ([facility]); Gestational diabetes mellitus (GDM), antepartum, gestational diabetes method of control unspecified ([facility]) Start: 04-30-2025 End: 04-30-2025 Office outpatient visit 15 minutes Jaspreet Angie DO Work Phone: [facility] Comment on above: 31 weeks gestation o f ([facility]); Third trimester ([facility]); Gestational diabetes mellitus (GDM), antepartum, gestational diabetes method of control unspecified ([facility]) Start: 04-30-2025 End: 04-30-2025 ambulatory JASPREET ANGIE Not Available Start: 04-17-2025 End: 04-17-2025 Bamboo flowsheet Deyanira KABA Work Phone: [facility] Start: 04-17-2025 End: 04-17-2025 Bamboo flowsheet Deyanira KABA Work Phone: [facility] [facility] Start: 04-17-2025 End: 04-17-2025 ambulatory DEYANIRA MCCLOUD Not Available Start: 04-17-2025 End: 04-17-2025 Office outpatient visit 15 minutes Deyanira KABA Work Phone: [facility] Comment on above: Size of fetus incons istent with dates in second trimester ([facility]) (Primary Dx); Third trimester ([facility]); 29 weeks gestation of ([facility]) Start: 04-03-2025 End: 04-03-2025 Bamboo flowsheet Jaspreet Angie DO Work Phone: [facility] Start: 04-03-2025 End: 04-03-2025 Bamboo flowsheet Jaspreet Angie DO Work Phone: [facility] Start: 04-03-2025 End: 04-03-2025 ambulatory JASPREET ANGIE Not Available Start: 04-03-2025 End: 04-03-2025 Office outpatient visit 15 minutes Jaspreet Angie DO Work Phone: [facility] Comment on above: Second trimester pre gnancy ([facility]); 27 weeks gestation of ([facility]) Start: 03-28-2025 End: 03-28-2025 Chart abstracting Scanning Provider External Maternal- Medicine at [facility] Start: 03-21-2025 End: 03-21-2025 Clinisync Result [...] Unsolicited Start: 03-05-2025 End: 03-05-2025 Bamboo flowsheet Ajspreet Angie DO Work Phone: [facility] Start: 03-05-2025 End: 03-07-2025 Bamboo flowsheet Jaspreet Angie DO Work Phone: [facility] Start: 03-05-2025 End: 03-07-2025 Clinisync Result Encounter Jaspreet Angie DO Work Phone: [facility] Unsolicited Start: 03-05-2025 End: 03-05-2025 Patient encounter procedure Jaspreet Angie DO Work Phone: [facility] Start: 03-05-2025 End: 03-05-2025 Periodic preventive med est patient 18-39 yrs Jaspreet Angie DO Work Phone: [facility] Comment on above: Second trimester pre gnancy ([facility]); 23 weeks gestation of ([facility]); Diabetes mellitus screening; Well woman exam with routine gynecological exam; Other insomnia Start: 03-05-2025 End: 03-05-2025 ambulatory JASPREET ANGIE Not Available Start: 02-19-2025 End: 02-19-2025 ambulatory WILLY AUSTIN Not Available Start: 02-12-2025 End: 02-12-2025 ambulatory JASPREET ANGIE Not Available Start: 01-31-2025 End: 01-31-2025 Clinisync Result Encounter Jaspreet Angie DO Work Phone: [facility] Unsolicited Start: 01-31-2025 End: 01-31-2025 Clinisync Result Encounter Jaspreet Angie DO Work Phone: [facility] Unsolicited Start: 01-29-2025 End: 01-29-2025 Bamboo flowsheet Willy Avila CAR DISPATCHER Work Phone: [facility] Start: 01-29-2025 End: 01-30-2025 Bamboo flowsheet Willyprashant Avila CAR DISPATCHER Work Phone: [facility] Start: 01-29-2025 End: 01-30-2025 External Result Encounter Willy Avila CAR DISPATCHER Work Phone: [facility] Department Unsolicited Start: 01-29-2025 End: 01-29-2025 ambulatory WILLY AVILA Not Available Start: 01-29-2025 End: 01-29-2025 Office outpatient visit 15 minutes Willy Avila CAR DISPATCHER Work Phone: [facility] Comment on above: Second trimester pre gnancy; 18 weeks gestation of Start: 01-24-2025 End: 01-24-2025 Office outpatient visit 5 minutes [facility] Angie Nurse [facility] Comment on above: GA: 17w3d Start: 01-24-2025 End: 01-24-2025 ambulatory JASPREET ANGIE Not Available Start: 01-06-2025 End: 01-06-2025 ambulatory Cristal Butt Marker Facility:[facility] Start: 01-06-2025 End: 01-06-2025 Departed Referred Cristal Marker DO Work Phone: [facility] Start: 12-23-2024 End: 12-23-2024 Bamboo flowsheet [...] 08-11-2023 Emergency department patient visit PHYSICIAN SASKIA [facility] Work Phone: Start: 03-03-2022 End: [...] URINARY TRACT INFECT ION (HTRX) Willy Avila CAR DISPATCHER Work Phone: Start: 01-29-2025 Urnls dip stick/tabl et rgnt non-auto w/o micrscp Willy Avila CAR DISPATCHER Work Phone: Start: 01-24-2025 Urnls dip stick/tabl et rgnt non-auto w/o micrscp Jaspreet Adams DO Work Phone: Start: 08-11-2023 Plain X-ray [...] 11:20 AM EDT Routine [facility] [address] [place] [address] Willy Avila, WILLIE [address] [place] [address] [facility] Start: 04-30-2025 End: 10-28-2025 US biophysical profile w non stress test US biophysical profile w non stress test Imaging Routine Gestational diabetes mellitus (GDM), antepartum, gestational diabetes method of control unspecified ([facility]) Expected: 04/30/2025 (Approximate), Expires: 10/28/2025 [facility] Work Phone: Comment on above: Expected: 04/30/2025 (Approximate), Expires: 10/28/2025 Start: 04-28-2025 Influenza vaccination Influenza Vacc ine [facility] Start: 04-17-2025 End: 08-17-2025 US for US OB follow up transabdominal approach Imaging Routine Size of fetus inconsistent with dates in second trimester ([facility]) Expected: 04/17/2025, Expires: 08/17/2025 [facility] Work Phone: Comment on above: Expected: 04/17/2025 , Expires: 08/17/2025 Start: 04-17-2025 End: 04-17-2025 Patient encounter procedure 04/17/2025 9:50 AM EDT Routine [facility] [address] [place] [address] Deyanira Mccloud PA [address] [place] [address] [facility] Start: 04-03-2025 End: 04-03-2025 ambulatory 04/03/2025 1:30 PM EDT Support Visit Maternal- Medicine at [facility] [address] [place] [id number] Rimma Richey, RN [address] [address] Nikky Gonzalez, BLADE Brian, Consuelo, BLADE [address] [place] [address] Maternal- Medicine at [facility] Start: 04-03-2025 End: 04-03-2025 Patient encounter procedure 04/03/2025 10:40 AM EDT Routine [facility] [address] [place] [phone] Jaspreet Adams, DO [address] [place] [address] [facility] Start: 03-19-2025 End: 03-19-2025 Professional / ancillary services management 03/19/2025 9:30 AM EDT Ancillary Procedure [facility] [address] [place] [phone] [facility] Start: 03-05-2025 End: 03-05-2026 CBC panel - Blood by Automated count CBC Lab Routine Diabetes mellitus screening Expected: 03/05/2025 (Approximate), Expires: 03/05/2026 [facility] Comment on above: Expected: 03/05/2025 (Approximate), Expires: 03/05/2026 Start: 03-05-2025 End: 03-05-2026 Measurement of glucose 1 hour after glucose challenge for glucose tolerance test Glucose tolerance, 1 hour Lab Routine Diabetes mellitus screening Expected: 03/05/2025 (Approximate), Expires: 03/05/2026 [facility] Comment on above: Expected: 03/05/2025 (Approximate), Expires: 03/05/2026 Start: 03-05-2025 End: 03-05-2025 Patient encounter procedure 03/05/2025 11:00 AM EDT Routine [facility] [address] [place], [place] [phone] Jaspreet Adams, DO [address] [place] [address] Arrived [facility] Comment on above: Arrived Start: 02-27-2025 End: 02-27-2025 Patient encounter procedure 02/27/2025 8:50 AM EDT Routine [facility] [address] [place] [phone] Jaspreet Adams DO [address] [place] [address] [facility] Start: 02-12-2025 End: 02-12-2025 Clinical Support 02/12/2025 9:00 AM EDT Clinical Support [facility] [address] [place] [phone] [facility] Start: 01-29-2025 End: 01-29-2025 Patient encounter procedure 01/29/2025 10:20 AM EDT Routine [facility] [address] [place] [phone] Willy Avila, CAR DISPATCHER [address] [place] [phone] [facility] Start: 01-24-2025 End: 01-24-2026 ABO/Rh ABO/Rh Lab Routine Missed menses , unspecified gestational age Expected: 01/24/2025 (Approximate), Expires: 01/24/2026 [facility] Comment on above: Expected: 01/24/2025 (Approximate), Expires: 01/24/2026 Start: 01-24-2025 End: 03-26-2025 Alpha fetoprotein, maternal Alpha fetoprotein, maternal Lab Routine Encounter for supervision of normal first in first trimester Expected: 01/24/2025 (Approximate), Expires: 03/26/2025 [facility] Comment on above: Expected: 01/24/2025 (Approximate), Expires: 03/26/2025 Start: 01-24-2025 End: 01-24-2026 Blood type and Indirect antibody screen panel - Blood Type and screen Lab Routine Missed menses , unspecified gestational age Expected: 01/24/2025 (Approximate), Expires: 01/24/2026 [facility] Work Phone: Comment on above: Expected: 01/24/2025 (Approximate), Expires: 01/24/2026 Start: 01-24-2025 End: 01-24-2026 Drugs of abuse panel - Urine by Screen method Rapid drug screen, urine Lab Routine , unspecified gestational age Encounter for supervision of normal first in first trimester Expected: 01/24/2025 (Approximate), Expires: 01/24/2026 [facility] Comment on above: Expected: 01/24/2025 (Approximate), Expires: 01/24/2026 Start: 01-10-2025 End: 01-10-2025 ambulatory 01/10/2025 9:30 AM EDT Initial [facility] [address] [place] [address] [facility] Start: 01-10-2025 End: 01-10-2025 Professional / ancillary services management 01/10/2025 9:00 AM EDT Ancillary Procedure [facility] [address] [place] [phone] [facility] Start: 01-06-2025 Bacteria identified in Urine by Culture Urine Culture [facility] Start: 01-06-2025 Urine culture [facility] Start: 2018 Screening for malign ant neoplasm of cervix Pap Smear [facility] Start: 2016 DTaP,Tdap and Td Vaccines (1 - Tdap) DTaP,Tdap and Td Vaccines (1 - Tdap) [facility] Start: 12-07-2015 Adult BMI Screening Adult BMI Screen ing [facility] Start: 2009 Depression Screening Depression Scre ening [facility] Start: 2009 Tobacco Screening Tobacco Screening [facility] Bacteria identified in Urine by Culture Urine culture Microbiology Routine Missed menses Ordered: 01/24/2025 [facility] Comment on above: Ordered: 01/24/2025 Bacteria identified in Urine by Culture Urine culture Microbiology Routine Second trimester Ordered: 01/29/2025 [facility] Work Phone: Comment on above: Ordered: 01/29/2025 CBC W Auto Different ial panel - Blood CBC and differential Lab Routine Missed menses , unspecified gestational age Ordered: 01/24/2025 [facility] Comment on above: Ordered: 01/24/2025 Cytology Cervical or vaginal smear or scraping study Pap Smear Pathology and Cytology Routine Well woman exam with routine gynecological exam Ordered: 03/05/2025 [facility] Work Phone: Comment on above: Ordered: 03/05/2025 Hemoglobin A1c/Hemoglobin.total in Blood Hemoglobin A1c Lab Routine Missed menses , unspecified gestational age Ordered: 01/24/2025 [facility] Comment on above: Ordered: 01/24/2025 Hepatitis B virus surface Ag [Presence] in Serum or Plasma by Immunoassay Hepatitis B surface antigen Lab Routine Missed menses , unspecified gestational age Ordered: 01/24/2025 [facility] Comment on above: Ordered: 01/24/2025 Hepatitis C virus Ab [Presence] in Serum or Plasma by Immunoassay Hepatitis C antibody Lab Routine Missed menses , unspecified gestational age Ordered: 01/24/2025 [facility] Comment on above: Ordered: 01/24/2025 HIV-1/HIV-2 antigen/antibody combination immunoassay HIV-1 and HIV-2 antibodies Lab Routine Missed menses , unspecified gestational age Ordered: 01/24/2025 [facility] Comment on above: Ordered: 01/24/2025 Patient Education Head injury in adults Blunt Abdominal Trauma ED Blunt Chest Trauma ED [facility] Work Phone: Patient referral [facility] Work Phone: Reagin Ab [Presence] in Serum by RPR RPR Lab Routine Missed menses , unspecified gestational age Ordered: 01/24/2025 [facility] Comment on above: Ordered: 01/24/2025 Rubella antibody, IgG Rubella an tibody, IgG Lab Routine Missed menses , unspecified gestational age Ordered: 01/24/2025 [facility] Comment on above: Ordered: 01/24/2025 Immunizations Immunization Date Immunization Notes Care Provider Fa aaron 08-11-2023 tetanus toxoid, redu christie diphtheria toxoid, and acellular pertussis vaccine, adsorbed PHYSICIAN NO [facility] Payers Date Payer Category Payer Private Health Insurance [facility] MEDICAID [id number] 2025 Self-pay [id number] 2024 Medicaid [id number] 2024 Medicaid [id number] 1997 Unknown [id number] 2.16.840.1.465948.3.579.2. 593 1997 Unknown [id number] 2.16.840.1.189569.3.579.2. 593 1997 Unknown [id number] 2.16.840.1.305914.3.579.2. 9 1997 Unknown [id number] 2.16.840.1.805241.3.579.2. 1259 1997 Unknown [id number] 2.16.840.1.765279.3.579.2. 1259 1997 Unknown [id number] 2.16.840.1.935628.3.579.2. 1259 1997 Unknown [id number] 2.16.840.1.102572.3.579.2. 1259 1997 Unknown [id number] 2.16.840.1.222854.3.579.2. 1259 1997 Unknown [id number] 2.16.840.1.907990.3.579.2. 1259 1997 Unknown [id number] 2.16.840.1.835902.3.579.2. 1259 1997 Unknown [id number] 2.16.840.1.807121.3.579.2. 1259 1997 Unknown [id number] 2.16.840.1.474415.3.579.2. 1259 1997 Unknown [id number] 2..840.1.112484.3.579.2. 9 1997 Unknown [id number] 2.16.840.1.608109.3.579.2. 1259 1959 Unknown [id number] Unknown Regular Auto/Liability [id number] Unknown HCAP/HFA/FAP Active [id number] Unknown [id number] 2.16.840.1.093939.3.579.2. 531 Unknown Regular Auto/Liability 23-47 [id number] [id number] Unknown HCAP/HFA/FAP Active [id number] Social History Date Type Detail Facility Start: 08-11-2023 End: 08-11-2023 Tobacco smoking status MEIS Never smoked tobacco (finding) [facility] Start: 1995 Sex Assigned At Female F [facility] Tobacco smoking stat us MEIS Tobacco smoking consumption unknown [facility] Start: 12-22-2024 Gender identity Identifies as female gender (finding) [facility] Sexual orientation Not on file [facility] Start: 01-07-2025 End: 03-26-2025 Sex Female (finding) [facility] Start: 10-08-2024 [facility] Start: 1997 Sex assigned at Not on file [facility] [employer] [facility] Procedure Code Equipment Code Equipment Origin al Text Equipment Identifier Dates 1 strip by In Vi tro route Daily Use in the morning prior to breakfast, 1 hour after each meal for a total of 4times daily. [id number] Start: 03-24-2025 End: 04-23-2025 1 each by In Vit ro route Daily Use to check FSBS four times daily [id number] Start: 03-24-2025 End: 04-23-2025 Clinical Notes 12-23-2024 [...] to check FSBS. Blood Glucose Monitoring Suppl (D-Eyeona Glucometer) w/Device kit 1 kit, Does not [...] PLAN ICD-10-CM 1. 33 weeks gestation of ([facility]) Z3A.33 POCT urinalysis dipstick manually resulted 2. Third trimester ([facility]) Z34.93 POCT urinalysis dipstick manually resulted 3. Gestational diabetes mellitus (GDM), antepartum, gestational diabetes method of control unspecified ([facility]) O24.419 Return OB: Patient presents today [...] of: SENDY Fan documented in this encounter [facility] 04-30-2025 History of Present illness Narrative Reason for Appointment: Patient ID: Chente Gonzalez is a 29 y.o. female who presents for Routine Visit Patient presents today for Return OB appointment. MEDICATIONS Current Outpatient Medications Medication Instructions Alcohol Swabs (Alcohol Prep Pad) 70 % pads 1 Pad, Topical, Daily, Use four times daily to check FSBS. Blood Glucose Monitoring Suppl (embraase-Eyeona Glucometer) w/Device kit 1 kit, Does not [...] nursing note reviewed. Exam conducted with a kaiako kura kaupapa maori present. Vitals: Estimated body mass index is 35.01 kg/m as calculated from the following: Height as of 12/01/20: 5' 5 . Weight as of this encounter: 210 lb 6.4 oz. BP: 120/70 Patient's last menstrual period was 10/04/2024 (approximate). ASSESSMENT & PLAN ICD-10-CM 1. 31 weeks gestation of ([facility]) Z3A.31 POCT urinalysis dipstick manually resulted 2. Third trimester ([facility]) Z34.93 POCT urinalysis dipstick manually resulted 3. Gestational diabetes mellitus (GDM), antepartum, gestational diabetes method of control unspecified ([facility]) O24.419 US biophysical profile w non stress [...] by Rahel Pendleton LPN on behalf of: Jasperet Adams DO documented in this encounter [facility] 04-17-2025 History of Present illness Narrative [...] ASSESSMENT & PLAN ICD-10-CM 1. Third trimester ([facility]) Z34.93 POCT urinalysis dipstick manually resulted 2. 29 weeks gestation of ([facility]) Z3A.29 POCT urinalysis dipstick manually resulted Return [...] of: SENDY Fan documented in this encounter [facility] 04-03-2025 History of Present illness Narrative [...] nursing note reviewed. Exam conducted with a kaiako kura kaupapa maori present. Vitals: Estimated body mass index is 33.35 kg/m as calculated from the following: Height as of 21: 5' 5 . Weight as of this encounter: 200 lb 6.4 oz. BP: 130/72 Patient's last menstrual period was 10/04/2024 (approximate). ASSESSMENT & PLAN ICD-10-CM 1. Second trimester ([facility]) Z34.92 Urine dip 2. 27 weeks gestation of ([facility]) Z3A.27 Urine dip Patient presents today for a routine obstetrics appointment. Patient is currently 27w2d with a Estimated Date of Delivery: 07/01/25. Patient brought in FSBS logs for review and patient still desires to hold off on [facility] referral at this time, referral was previously sent on 03/24/25 and when contacted by [facility] patient will inform them that she will postpone scheduling at this time. Patient to return to clinic in 2 weeks for routine OB appointment. Documented by Nissa Matt LPN on behalf of: Jaspreet Adams DO documented in this encounter [facility] 03-05-2025 History of Present illness Narrative [...] nursing note reviewed. Exam conducted with a kaiako kura kaupapa maori present. Vitals: Estimated body mass index is 31.62 kg/m as calculated from the following: Height as of 21: 5' 5 . Weight as of this encounter: 190 lb. BP: 128/78 Patient's last menstrual period was 10/04/2024 (approximate). ASSESSMENT & PLAN ICD-10-CM 1. Second trimester ([facility]) Z34.92 POCT urinalysis dipstick manually resulted 2. 23 weeks gestation of ([facility]) Z3A.23 3. Diabetes mellitus screening Z13.1 [...] Jaspreet Adams DO documented in this encounter [facility] 01-29-2025 History of Present illness Narrative [...] nursing note reviewed. Exam conducted with a kaiako kura kaupapa maori present. Vitals: Estimated body mass index is [...] Willy Avila NP documented in this encounter [facility] 01-24-2025 History of Present illness Narrative [...] or undercooked meat, and stay away from [facility]. Patient has also been advised to not [...] Kalyn Jacob MA documented in this encounter [facility] 12-23-2024 History of Present illness Narrative [...] nursing note reviewed. Exam conducted with a kaiako kura kaupapa maori present. Vitals: Estimated body mass index is [...] Jaspreet Adams DO documented in this encounter [facility] Evaluation note No assessment inform ation available [facility] Work Phone: Evaluation note Diagnosis Hyperemesis [...] unspecified (HHS-HCC) documented in this encounter [facility]InstructionsNot on filedocumented in this [facility] Purpose Family History No Family History [...] section and content) DATE CREATED AUTHOR [facility] DATE CREATED AUTHOR AUTHOR'S ORGANIZ ATION 06/07/2022 [facility] DATE CREATED AUTHOR AUTHOR'S ORGANIZ ATION 01/09/2025 [facility] DATE CREATED AUTHOR AUTHOR'S ORGANWENDI ATION 05/16/[address] [facility] EPIC Care Teams (unrecognized [...] BE BASED ON THE PRIMARY CLINICAL RECORDS. [employer] provides no warranty or guarantee of the accuracy or completeness of information in this document.
--- OUTSIDE RECORDS SUMMARY | 2025-05-19 11:02 | XMS_ITS | CCD ---
Author Organization [facility] Care Team Providers Care Stay Cutter Name Role Phone ADEOLA COHEN Admitting Unavailable ADEOLA COEHN Attending Unavailable MISC, DR BUTLER Primary Care [...] (1 source) Penicillins Drug allergy (disorder) 09-28-2014 [facility] Repository (20 sources) Penicillins Drug Allergy 12-23-2024 [facility] (1 source) Penicillins Drug allergy (disorder) 02-22-[address] [facility] Repository Medications Current Medications Medication Drug Class(es) Dates Sig (Normalized) Sig (Original) Blood Glucose Monitoring Suppl (D-Care Glucometer) w/Device kit (12 sources) Start: 03-24-2025 End: 03-24-2026 Blood Glucose Monitoring Suppl (D-Care Glucometer) w/Device kit Indications: Gestational diabetes mellitus (GDM), antepartum, gestational diabetes method of control unspecified ([facility]) , Elevated glucose tolerance test 1 kit Daily Use four times daily to check FSBS. In the morning prior to breakfast & 1 hour after each meal for a total of 4times daily. 1 kit 03/24/2025 03/24/2026 Active doxylamine succinate 25 mg oral tablet (17 sources) Start: 03-05-2025 End: 04-04-2025 doxylamine (Unisom) 25 MG tablet Indications: Other insomnia Take 1 tablet (25 mg) by mouth as needed at bedtime for sleep 30 tablet 03/05/2025 Active isopropyl alcohol 0.7 ml/ml medicated pad (12 sources) Start: 03-24-2025 Alcohol Swabs (Alcohol Prep Pad) 70 % pads Indications: Gestational diabetes mellitus (GDM), antepartum, gestational diabetes method of control unspecified ([facility]) , Elevated glucose tolerance test Apply 1 [...] 25 mg supposito ry Discontinued 25 MG AL Q6H as needed for nausea and vomiting [...] Drug Class(es) Dates Sig (Normalized) Sig (Original) [id number] 200 actuat albuterol 0.09 mg/actuat metered dose [...] D2) 1,250 mcg (50,000 unit) Capsule Discontinued 08355 UNIT PO every week 4 December 27, [...] Test Name Value Interpretation Reference Range Facility OB BPP W NON-STRESS on 05-19-2025 [place] [address] Ultrasound Report Signed Patient: CHENET GONZALEZ MR#: [id number] : 1995 Acct:[id number] Age/Sex: 29 / F ADM Date: 05/19/25 Loc: [facility] 250-[address]: Jaspreet Adams D.O. Ordering Physician: Jaspreet Adams D.O. Date of Service: 05/19/25 Procedure(s): OB BPP w non-stress Accession Number(s): [id number] cc: Jaspreet Adams D.O.; Physician,Non-Staff M.Tony The [place] [address] Patient Name: CHENTE GONZALEZ MRN: [facility]:[id number] date: 1995 Sex: F Assigned Patient Location: [facility] Current Patient Location: [facility] Accession/Order Number: [id number] Exam Date: 05/19/2025 10:15 Report Date: 05/19/2025 10:54 At the request of: JASPREET AADMS DO Procedure: US OB BPP w non-stress BIOPHYSICAL PROFILE: CLINICAL INFORMATION: Gestational diabetes mellitus COMPARISON: None There is a single live intrauterine gestation in cephalic presentation. The reported gestational age is 33 weeks 6 days. The heart rate measures 144 beats per minute. FINDINGS: TONE: 1 or more episodes of activity extension and flexion of extremity or opening and closing of the hand [Y] 2/2 GROSS BODY MOVEMENTS: 3 or more discrete body or limb movements [Y] 2/2 BREATHING MOVEMENTS: 1 or more episodes of breathing lasting at least 30 seconds [Y] 2/2 DOYLE: A single deepest vertical pocket of amniotic fluid greater than 2 cm [Y] 2/2 DOYLE: 7.7 cm. This is below the 5th percentile. Total score: 8/8 US/US OB BPP w non-stress IMPRESSION: NORMAL BIOPHYSICAL PROFILE. OLIGOHYDRAMNIOS. Impression dictated by: Rahel Mae M.D. 05/19/2025 10:54 AM Dictation Location: [employer] GroupFORMERLY [facility]ITALAdexLink Electronically authenticated by: [id number] Y Date: 05/19/2025 10:54 Dictated By: Rahel Mae M.D. Signed By: 05/19/25 1056 DD/ 1054 TD/TT: Wheel Worker: [facility] Radiology, Radiologi MD guilherme - 05/19/2025 [place] [address] Ultrasound Report Signed Patient: CHENTE GONZALEZ MR#: [id number] : 1995 Acct:[id number] Age/Sex: 29 / F ADM Date: 05/19/25 Loc: [facility] 250-[address]: Jaspreet Adams D.O. Ordering Physician: Jaspreet Adams D.O. Date of Service: 05/19/25 Procedure(s): US OB BPP w non-stress Accession Number(s): [id number] cc: Jaspreet Adams D.O.; Physician,Non-Staff Alejandra The [address] [address] Patient Name: CHENTE GONZALEZ MRN: [facility]:[id number] date: 1995 Sex: F Assigned Patient Location: [facility] Current Patient Location: [facility] Accession/Order Number: [id number] Exam Date: 05/19/2025 10:15 Report Date: 05/19/2025 10:54 At the request of: JASPREET ADAMS DO Procedure: US OB BPP w non-stress BIOPHYSICAL PROFILE: CLINICAL INFORMATION: Gestational diabetes mellitus COMPARISON: None There is a single live intrauterine gestation in cephalic presentation. The reported gestational age is 33 weeks 6 days. The heart rate measures 144 beats per minute. FINDINGS: TONE: 1 or more episodes of activity extension and flexion of extremity or opening and closing of the hand [Y] 2/2 GROSS BODY MOVEMENTS: 3 or more discrete body or limb movements [Y] 2/2 BREATHING MOVEMENTS: 1 or more episodes of breathing lasting at least 30 seconds [Y] 2/2 DOYLE: A single deepest vertical pocket of amniotic fluid greater than 2 cm [Y] 2/2 DOYLE: 7.7 cm. This is below the 5th percentile. Total score: 8/8 US/US OB BPP w non-stress IMPRESSION: NORMAL BIOPHYSICAL PROFILE. OLIGOHYDRAMNIOS. Impression dictated by: Rahel Mae M.D. 05/19/2025 10:54 AM Dictation Location: [employer] Electronically authenticated by: [id number] Y Date: 05/19/2025 10:54 Dictated By: Rahel Mae M.D. Signed By: 05/19/25 1056 DD/ 1054 TD/TT: Wheel Worker: [facility] Radiology Study observation (narrative) [facility] US OB BPP W NON-STRESS Ordered By: Radiologist Radiology on 05-19-2025 [facility] Work Phone: Urinalysis macro (dipstick) panel (U)on 05-15-2025 Bilirubin, UA Negative Negative - 4(70) +++ mg/dL [facility] Blood, UA Positive Negative - 50 Derick/mcL [facility] Comment on above: 1+ Clarity, UA Clear [facility] Color, UA Straw [facility] Glucose, UA Negative Negative - 2000(110) ++++ mg/dL [facility] Interpretation and review of laboratory results Abnormal [facility] Ketones, UA Negative Negative - 160(16) ++++ mg/dL [facility] Leukocytes, UA Negative Negative - 500+++ Julio/mcL [facility] Nitrite, UA Negative Negative - Positive [facility] pH, UA 6 5 - 9 [facility] Protein, UA Positive Negative - 1999(20) ++++ mg/dL [facility] Comment on above: 2+ Spec Grav, UA 1.02 1 - 1.03 [facility] Urobilinogen, UA 1.0 0.2 - 12 mg/dL [facility] US OB FOLLOW UP TRANSABDOMIN AL APPROACHon [...] UA Negative Negative - 4(70) +++ mg/dL [facility] Blood, UA Positive Negative - 50 Derick/mcL [facility] Comment on above: 1+ Clarity, UA Clear [facility] Color, UA Yellow [facility] Glucose, UA Negative Negative - 1999(110) ++++ mg/dL [facility] Interpretation and review of laboratory results Abnormal [facility] Ketones, UA Negative Negative - 160(16) ++++ mg/dL [facility] Leukocytes, UA Negative Negative - 500+++ Julio/mcL [facility] Nitrite, UA Negative Negative - Positive [facility] pH, UA 6 5 - 9 [facility] Protein, UA Positive Negative - 1999(20) ++++ mg/dL [facility] Spec Grav, UA 1.01 1 - 1.03 [facility] Urobilinogen, UA 1.0 0.2 - 12 mg/dL [facility] Urinalysis macro (dipstick) panel (U)on 04-17-2025 Bilirubin, UA Negative Negative - 4(70) +++ mg/dL [facility] Blood, UA Positive Negative - 50 Derick/mcL [facility] Clarity, UA Clear [facility] Color, UA Yellow [facility] Glucose, UA Negative Negative - 1999(110) ++++ mg/dL [facility] Interpretation and review of laboratory results Abnormal [facility] Ketones, UA Negative Negative - 160(16) ++++ mg/dL [facility] Leukocytes, UA Positive Negative - 500+++ Julio/mcL [facility] Nitrite, UA Negative Negative - Positive [facility] pH, UA 6 5 - 9 [facility] Protein, UA Negative Negative - 1999(20) ++++ mg/dL [facility] Spec Grav, UA 1.015 1 - 1.03 [facility] Urobilinogen, UA 1.0 0.2 - 12 mg/dL [facility] Urinalysis macro (dipstick) panel (U)on 04-03-2025 Bilirubin, UA Negative Negative - 4(70) +++ mg/dL [facility] Blood, UA Positive Negative - 50 Derick/mcL [facility] Clarity, UA Clear [facility] Color, UA Yellow [facility] Glucose, UA Negative Negative - 1999(110) ++++ mg/dL [facility] Interpretation and review of laboratory results Abnormal [facility] Ketones, UA Negative Negative - 160(16) ++++ mg/dL [facility] Leukocytes, UA Negative Negative - 500+++ Julio/mcL [facility] Nitrite, UA Negative Negative - Positive [facility] pH, UA 6.5 5 - 9 [facility] Protein, UA Negative Negative - 1999(20) ++++ mg/dL [facility] Spec Grav, UA 1.015 1 - 1.03 [facility] Urobilinogen, UA 1.0 0.2 - 12 mg/dL [facility] GLUCOSE TOLERANCE 3 HOURon 0 03-21-2025 GLUCOSE TOLERANCE 3 HOUR High mg/dL [facility] Comment on above: GLU FAST 86 (<95) Co l: 03/21/25 0856 GLU 1HR 181H (<180) Col: 03/21/25 1002 GLU 2HR 162H (<155) Col: 03/21/25 1102 GLU 3HR 75 (<140) Col: 03/21/25 1202 Interpretation and review of laboratory results Abnormal [facility] US OB LIMITED 1+ FETUSESon 0 03-19-2025 [...] II, MD, PHD at 21-Mar-2025 08:31:03 AM [facility] Normal Not Available Comment on above: Order Comment: US OB INCOMPLETE ANATOMY Estimated Date of Delivery: 07/01/25 Gestational Age as of 02/24/2025: 21w6d IGP,APTIMA HPV,AGE GDLNon AGE GDLN ACOG TESTING Note . [facility] Comment on above: TESTS RESULT FLAG UN ITS REF RANGE LAB Clinician Provided Cytology Information Source.............[facility] Other.............. No. of containers..01 ThinPrep Vial Age Brijesh MARTINI Mandie... -25 09 FLAG LEGEND: L-Low Normal,H-High Normal,LL-Alert Low,HH-Alert High <-Panic Low,>-Panic High,A-Abnormal,AA-Critical Abnormal Performed at: 01 =G [facility] [address] Mckenna Polanco MD, IGP, RFX APTIMA HPV ASCU Note . [facility] Comment on above: TESTS RESULT FLAG UN ITS REF RANGE LAB DIAGNOSIS: 02 NEGATIVE FOR INTRAEPITHELIAL LESION OR MALIGNANCY. Specimen adequacy: 02 Satisfactory for evaluation. No endocervical component is identified. Performed by: Andres Pineda, Heel Cementer ([facility]) . 02 Note: Note 02 The [...] <-Panic Low,>-Panic High,A-Abnormal,AA-Critical Abnormal Performed at: [address] [address] Mckenna Polanco MD, Performed at: = - [facility] [id number] Principal Database Developer: Mckenna Polanco MD, Phone: [phone] Performed at: [facility] [id number] Principal Database Developer: Mceknna Polanco MD, Phone: [phone] [facility] GLUCOSE 1 HOURon 03-06-2025 Glucose [Mass/Vol] 141 mg/dL High NINF - 13 0 mg/dL [facility] Interpretation and review of laboratory results Abnormal [facility] Glucose tolerance, 1 houron 03-06-2025 Glucose Tolerance Test 1 Hour 141 [facility] No Panel Informationon 03-06 [facility] Urinalysis macro (dipstick) panel (U)on 03-05-2025 Bilirubin, UA Negative Negative - 4(70) +++ mg/dL [facility] Blood, UA Negative Negative - 50 Derick/mcL [facility] Clarity, UA Clear [facility] Color, UA Yellow [facility] Glucose, UA Negative Negative - 2000(110) ++++ mg/dL [facility] Interpretation and review of laboratory results Normal [facility] Ketones, UA Negative Negative - 160(16) ++++ mg/dL [facility] Leukocytes, UA Negative Negative - 500+++ Julio/mcL [facility] Nitrite, UA Negative Negative - Positive [facility] pH, UA 6 5 - 9 [facility] Protein, UA Negative Negative - 2000(20) ++++ mg/dL [facility] Spec Grav, UA 1.01 1 - 1.03 [facility] Urobilinogen, UA 0.2 0.2 - 12 mg/dL [facility] US OB 14+ WEEKS ANATOMY SCAN on [...] II, MD, PHD at 20-Feb-2025 09:47:05 AM [facility] Normal Not Available Comment on above: Order Comment: US OB ANATOMY SINGLE W US OB CERVICAL LENGTH Estimated Date of Delivery: 07/01/25 Gestational Age as of 02/12/2025: 20w1d HBV surface Ag IA Qlon 02-01 Hepatitis B Surface Antigen Negative [facility] BOX TESTon 01-31-2025 BOX TEST SENT OUT [facility] [address] [facility] BOX2 01/31/25 [facility] Drug Screen, Urineon 025 Amphetamine/Methamphet amine Negative [facility] Barbiturates Negative [facility] Benzodiazepines Negative [facility] Cocaine Metabolite Negative [facility] Ecstasy Negative [facility] Methadone Negative [facility] Opiates Negative [facility] Oxycodone Negative [facility] Phencyclidine Negative [facility] Thc Marijuana, Urine Positive [facility] HIV 1+2 Ab+HIV1 p24 Ag IA Ql on 01-31-2025 HIV 1&2 AB/AG Non-Reactive [facility] Hemoglobin A1con 01-31-2025 HbA1c (Bld) [Mass fraction] 4.9 % 4.0 - 6.0 % [facility] No Panel Informationon 01-31 [facility] Rubella IGG immune statuson 01-31-2025 Rubella immune IgG 7.29 [facility] Type and screenon 01-31-2025 Abo/Rh(D) Negative [facility] No Panel Informationon 01-30 STAPHYLOCOCCUS EPIDERMIDIS, HAEMOLYTICUS, LUGDUNENSIS, SAPROPHYTICUS (URINA 0 [facility] STAPHYLOCOCCUS EPIDERMIDIS, HAEMOLYTICUS, LUGDUNENSIS, SAPROPHYTICUS (URINA Not detected [facility] URINARY TRACT INFECTION (HTR X)on 01-30-2025 ACINETOBACTER BAUMANII 0 NO [facility] ACINETOBACTER BAUMANII Not detected [facility] ALBICANS, PARAPSILOSIS, TROPICALIS 0 [facility] MAYNOR ALBICANS, PARAPSILOSIS, TROPICALIS Not detected [facility] [place] GLABRATA 0 [facility] [place] GLABRATA Not detected [facility] [place] KRUSEI 0 [facility] [place] KRUSEI Not detected [facility] CITROBACTER FREUNDII 0 [facility] CITROBACTER FREUNDII Not detected NO [facility] ENTEROBACTER AEROGENES, CLOACAE 0 [facility] ENTEROBACTER AEROGENES, CLOACAE Not detected [facility] ENTEROCOCCUS FAECALIS, FAECIUM 0 [facility] ENTEROCOCCUS FAECALIS, FAECIUM Not detected [facility] ESCHERICHIA COLI 0 [facility] ESCHERICHIA COLI Not detected [facility] KLEBSIELLA PNEUMONIAE, OXYTOCA 0 [facility] KLEBSIELLA PNEUMONIAE, OXYTOCA Not detected [facility] MORGANELLA MORGANII 0 [facility] MORGANELLA MORGANII Not detected [facility] PROTEUS MIRABILIS, VULGARIS 0 [facility] PROTEUS MIRABILIS, VULGARIS Not detected [facility] PSEUDOMONAS AERUGINOSA 0 NO [facility] PSEUDOMONAS AERUGINOSA Not detected [facility] SERRATIA MARCESCENS 0 [facility] SERRATIA MARCESCENS Not detected [facility] STAPHYLOCOCCUS AUREUS 0 [facility] STAPHYLOCOCCUS AUREUS Not detected [facility] STREPTOCOCCUS AGALACTIAE (GROUP B STREP) 0 [facility] STREPTOCOCCUS AGALACTIAE (GROUP B STREP) Not detected [facility] STREPTOCOCCUS PYOGENES (GROUP A STREP) 0 [facility] STREPTOCOCCUS PYOGENES (GROUP A STREP) Not detected [facility] Urinalysis macro (dipstick) panel (U)on 01-29-2025 Bilirubin, UA Negative Negative - 4(70) +++ mg/dL [facility] Blood, UA Positive Negative - 50 Derick/mcL [facility] Comment on above: Trace-intact Clarity, UA Clear [facility] Color, UA Yellow [facility] Glucose, UA Negative Negative - 1999(110) ++++ mg/dL [facility] Interpretation and review of laboratory results Abnormal [facility] Ketones, UA Negative Negative - 160(16) ++++ mg/dL [facility] Leukocytes, UA Negative Negative - 500+++ Julio/mcL [facility] Nitrite, UA Negative Negative - Positive [facility] pH, UA 7 5 - 9 [facility] Protein, UA Trace Negative - 2000(20) ++++ mg/dL [facility] Spec Grav, UA 1.02 1 - 1.03 [facility] Urobilinogen, UA 1.0 0.2 - 12 mg/dL [facility] HCG ( test) Ql (U)o n 01-24-2025 Interpretation and review of laboratory results Abnormal [facility] Preg Test, Ur Positive Negative [facility] US OB LIMITED 1+ FETUSESon 0 [...] II, MD, PHD at 27-Jan-2025 10:23:04 AM [facility] Normal Not Available Comment on above: Order Comment: US OB TRANSVAGINAL No LMP recorded. Urinalysis macro (dipstick) panel (U)on 01-24-2025 Bilirubin, UA Negative Negative - 4(70) +++ mg/dL [facility] Blood, UA Positive Negative - 50 Derick/mcL [facility] Comment on above: Trace-Intact Clarity, UA Clear [facility] Color, UA Yellow [facility] Glucose, UA Negative Negative - 1999(110) ++++ mg/dL [facility] Interpretation and review of laboratory results Abnormal [facility] Ketones, UA Negative Negative - 160(16) ++++ mg/dL [facility] Leukocytes, UA Negative Negative - 500+++ Julio/mcL [facility] Nitrite, UA Negative Negative - Positive [facility] pH, UA 7 5 - 9 [facility] Protein, UA Negative Negative - 1999(20) ++++ mg/dL [facility] Spec Grav, UA 1.02 1 - 1.03 [facility] Urobilinogen, UA 0.2 0.2 - 12 mg/dL [facility] Urine Cultureon 01-06-2025 Bacteria identified Cx Nom (U) No Growth 2 Days PERFORMED BY: [facility] [address] [place] [address] PATHOLOGIST YEAST CULTURE DEVELOPER RAHUL HOLCOMB M.D. Normal [facility] Comment on above: Performed By: #### C UU #### [facility] [address] Amphetamine Screen Ql (U)Ord ered By: Denny Azevedo on 08-11-2023 Amphetamines Ql (U) Negative Negative [facility] Amylase [Enzymatic activity/ volume] in Serum or PlasmaOrdered By: Denny Azevedo on 08-11-2023 Amylase [Catalytic activity/Vol] 32 U/L 29-[address] [facility] Aspartate aminotransferase [ Enzymatic activity/volume] in Serum or PlasmaOrdered By: Denny Azevedo on 08-11-2023 AST [Catalytic activity/Vol] 24 U/L 13-[address] [facility] Automated erythrocytes count in urine sediment (number/area)Ordered By: Denny Azevedo on 08-11-2023 RBC Auto (Urine sed) [#/Area] 10-19 [HPF] 0-[address] [facility] Automated leukocytes count i n urine sediment (number/area)Ordered By: Denny Azevedo on 08-11-2023 WBC Auto (Urine sed) [#/Area] 3-4 [HPF] 0-[address] [facility] Barbiturates [Presence] in U rine by Screen methodOrdered By: Denny Azevedo on 08-11-2023 Barbiturates Screen Ql (U) Negative Negative [facility] Basophils Auto (Bld) [#/Vol] Ordered By: Denny Azevedo on 08-11-2023 Basophils (Bld) [#/Vol] 0.1 10*3/uL 0.0-0.[address] [facility] Basophils/100 WBC Auto (Bld) Ordered By: Denny Azevedo on 08-11-2023 Basophils/100 WBC (Bld) 0.9 % . [facility] Benzodiazepines Screen Ql (U )Ordered By: Denny Azevedo on 08-11-2023 Benzodiazepines Ql (U) Negative Negative [facility] Benzoylecgonine [Presence] i n Urine by Screen methodOrdered By: Denny Azevedo on 08-11-2023 Benzoylecgonine Screen Ql (U) Negative Negative [facility] Bilirubin Test strip Ql (U)O rdered By: Denny Azevedo on 08-11-2023 Bilirubin Ql (U) Negative Negative [facility] Cannabinoids [Presence] in U rine by Screen methodOrdered By: Denny Azevedo on 08-11-2023 Cannabinoids Screen Ql (U) Positive Negative [facility] Comment on above: These are unconfirme d results and should not be used for legal purposes. Drug Cut-Off Concentration: AMPH 1000 ng/mL THOMAS 200 ng/mL ARTHUR 200 ng/mL COCM 300 ng/mL OP 300 ng/mL PCP 25 ng/mL THC 20 ng/mL Carbon dioxide, total [Moles /volume] in Serum or PlasmaOrdered By: Denny Azevedo on 08-11-2023 CO2 [Moles/Vol] 17.8 mmol/L 21.0-31.0 [facility] Chloride [Moles/volume] in S marline or PlasmaOrdered By: Denny Azevedo on 08-11-2023 Chloride [Moles/Vol] 108 mmol/L 98-107 [facility] Color Auto (U)Ordered By: French Azevedo on 08-11-2023 Color (U) Yellow Yellow [facility] Creatine kinase [Enzymatic a ctivity/volume] in Serum or PlasmaOrdered By: Denny Azevedo on 08-11-2023 CK [Catalytic activity/Vol] 225 U/L 30-[address] [facility] Creatinine [Mass/volume] in Serum or PlasmaOrdered By: Denny Azevedo on 08-11-2023 Creatinine [Mass/Vol] 0.68 mg/dL 0.60-1.20 [facility] Eosinophils Auto (Bld) [#/Vo l]Ordered By: Denny Azevedo on 08-11-2023 Eosinophils (Bld) [#/Vol] 0.1 10*3/uL 0.0-0.[address] [facility] Eosinophils/100 WBC Auto (Bl d)Ordered By: Denny Azevedo on 08-11-2023 Eosinophils/100 WBC (Bld) 1.3 % . [facility] Erythrocyte distribution wid th Auto (RBC) [Ratio]Ordered By: Denny Azevedo on 08-11-2023 Erythrocyte distribution width (RBC) [Ratio] 12.9 % 11.9-15.[address] [facility] Ethanol [Mass/volume] in Ser um or PlasmaOrdered By: Denny Azevedo on 08-11-2023 Ethanol [Mass/Vol] mg/dL [facility] Ethanol [Mass/Vol] TNP [facility] Comment on above: Test not performed Glucose [Mass/volume] in Ser um or PlasmaOrdered By: Denny Azevedo on 08-11-2023 Glucose [Mass/Vol] 109 mg/dL 70-100 [facility] Comment on above: ADA recommended refe rence rangeRandom Glucose Reference Range is dependent on time and content of last meal. Glucose of more than 200 mg/dL in a nonstressed, ambulatory subject supports the diagnosis of Diabetes Mellitus. HCG ( test) IA.rapi d Ql (U)Ordered By: Denny Azevedo on 08-11-2023 HCG ( test) Ql (U) Negative [facility] Hematocrit Auto (Bld) [Volum e fraction]Ordered By: Denny Azevedo on 08-11-2023 Hematocrit (Bld) [Volume fraction] 40.4 % 34.0-46.[address] [facility] Hemoglobin [Mass/volume] in BloodOrdered By: Denny Azevedo 08-11-2023 Hemoglobin (Bld) [Mass/Vol] 14.2 g/dL 11.8-15.[address] [facility] INR in Platelet poor plasma by Coagulation assayOrdered By: Denny Azevedo on 08-11-2023 INR Coag (PPP) [Relative time] 1.0 {INR} [facility] Comment on above: INR Therapeutic [...] on 08-11-2023 Ketones (U) [Mass/Vol] Trace Negative [facility] - UrinalysisOrder ed By: Denny Azevedo on 08-11-2023 Hyaline casts LM Ql (Urine sed) 0-8 [LPF] 0-[address] [facility] Leukocytes [#/volume] correc sonja for nucleated erythrocytes in Blood by Automated counOrdered By: Denny Azevedo on 08-11-2023 WBC corrected for nucl RBC Auto (Bld) [#/Vol] 7.9 10*3/uL 3.8-11.[address] [facility] Lipase [Enzymatic activity/v olume] in Serum or PlasmaOrdered By: Denny Azevedo on 08-11-2023 Lipase [Catalytic activity/Vol] 13.0 U/L 11.0-82.[address] [facility] Lymphocytes Auto (Bld) [#/Vo l]Ordered By: Denny Azevedo on 08-11-2023 Lymphocytes (Bld) [#/Vol] 1.8 10*3/uL 1.00-4.[address] [facility] Lymphocytes/100 WBC Auto (Bl d)Ordered By: Denny Azevedo on 08-11-2023 Lymphocytes/100 WBC (Bld) 23.1 % . [facility] MCH Auto (RBC) [Entitic mass ]Ordered By: Denny Azevedo on 08-11-2023 MCH (RBC) [Entitic mass] 30.4 pg 24.7-34.[address] [facility] MCHC Auto (RBC) [Mass/Vol]Or dered By: Denny Azevedo on 08-11-2023 MCHC (RBC) [Mass/Vol] 35.1 g/dL 32.0-35.0 [facility] MCV Auto (RBC) [Entitic vol] Ordered By: Denny Azevedo on 08-11-2023 MCV (RBC) [Entitic vol] 86.7 fL 80-[address] [facility] Monocyte distribution width [Entitic volume] in Blood by AutomatedOrdered By: Denny Azevedo on 08-11-2023 Monocyte distribution width Auto (Bld) [Entitic vol] 17.99 % 0.00-20.[address] [facility] Monocytes Auto (Bld) [#/Vol] Ordered By: Denny Azevedo on 08-11-2023 Monocytes (Bld) [#/Vol] 0.5 10*3/uL 0.0-0.[address] [facility] Monocytes/100 WBC Auto (Bld) Ordered By: Denny Azevedo on 08-11-2023 Monocytes/100 WBC (Bld) 6.9 % . [facility] Neutrophils Auto (Bld) [#/Vo l]Ordered By: Denny Azevedo on 08-11-2023 Neutrophils (Bld) [#/Vol] 5.4 10*3/uL 1.8-7.[address] [facility] Neutrophils/100 WBC Auto (Bl d)Ordered By: Denny Azevedo on 08-11-2023 Neutrophils/100 WBC (Bld) 67.8 % . [facility] Nitrite Test strip Ql (U)Ord ered By: Dneny Azevedo on 08-11-2023 Nitrite Ql (U) Negative Negative [facility] No Panel InformationOrdered By: Denny Azevedo on 08-11-2023 Estimated GFR (CKD-EPI) > 60.0 mL/Min [facility] Creatinine Clearance (Chem 138.[address] [facility] Nucleated erythrocytes [Pres ence] in Blood by Automated countOrdered By: Denny Azevedo on 08-11-2023 Nucleated RBC Auto Ql (Bld) 0.1 /100{WBC} 0-0.[address] [facility] Opiates [Presence] in Urine by Screen methodOrdered By: Denny Azevedo on 08-11-2023 Opiates Screen Ql (U) Negative Negative [facility] Phencyclidine Screen Ql (U)O rdered By: Denny Azevedo on 08-11-2023 Phencyclidine Ql (U) Negative Negative [facility] Platelet mean volume Auto (B ld) [Entitic vol]Ordered By: Denny Azevedo on 08-11-2023 Platelet mean volume (Bld) [Entitic vol] 7.7 fL 6.3-10.[address] [facility] Platelets Auto (Bld) [#/Vol] Ordered By: Denny Azevedo on 08-11-2023 Platelets (Bld) [#/Vol] 307 10*3/uL 150-[address] [facility] Potassium [Moles/volume] in Serum or PlasmaOrdered By: Denny Azevedo on 08-11-2023 Potassium [Moles/Vol] 3.3 mmol/L 3.5-5.1 [facility] Protein Auto test strip (U) [Mass/Vol]Ordered By: Denny Azevedo on 08-11-2023 Protein (U) [Mass/Vol] 30 mg/dL Negative [facility] Prothrombin time (PT)Ordered By: Denny Azevedo on 08-11-2023 PT Coag (PPP) [Time] 12.1 s 9.0-12.9 [facility] Comment on above: A hematocrit value g reater than 55% may lead to inaccurate results in coagulation testing. Patients having hematocrit values >55% require a special collection tube for coagulation studies. Please contact the laboratory at [phone] for redraw instructions. RBC Auto (Bld) [#/Vol]Ordere d By: Denny Azevedo on 08-11-2023 RBC (Bld) [#/Vol] 4.66 10*6/uL 3.60-5.00 [facility] Serum or plasma anion gap de terminationOrdered By: Denny Azevedo 08-11-2023 Anion gap [Moles/Vol] 15.5 mmol/L 6.0-15.0 [facility] Sodium [Moles/volume] in Ser um or PlasmaOrdered By: Denny Azevedo 08-11-2023 Sodium [Moles/Vol] 138 mmol/L 136-145 [facility] Specific gravity Auto test s trip (U) [Rel density]Ordered By: Denny Azevedo 08-11-2023 Specific gravity (U) [Rel density] 1.026 1.001-1.[address] [facility] Squamous epithelial cells de tection in urine sediment by light microscopyOrdered By: Denny Azevedo 08-11-2023 Epithelial cells.squamous LM Ql (Urine sed) 0-1 [HPF] 0-[address] [facility] Urea nitrogen [Mass/volume] in Serum or PlasmaOrdered By: Denny Azevedo 08-11-2023 Urea nitrogen [Mass/Vol] 11 mg/dL 7-[address] [facility] Urine bacteria detection by automated methodOrdered By: Denny Azevedo on 08-11-2023 Bacteria Auto Ql (U) None seen None Seen [facility] Urine clarity by refractomet ry automatedOrdered By: Denny Azevedo on 08-11-2023 Clarity Refractometry automated (U) Clear Clear [facility] Urine glucose measurement by automated test strip (mass/volume)Ordered By: Denny Azevedo on 08-11-2023 Glucose Auto test strip (U) [Mass/Vol] Normal mg/dL Normal [facility] Urine hemoglobin detection b y automated test stripOrdered By: Denny Azevedo on 08-11-2023 Hemoglobin Auto test strip Ql (U) 2+ Negative [facility] Urine leukocyte esterase det ection by automated test stripOrdered By: Denny Azevedo on 08-11-2023 Leukocyte esterase Auto test strip Ql (U) Negative Negative [facility] Urobilinogen Auto test strip (U) [Mass/Vol]Ordered By: Denny Azevedo on 08-11-2023 Urobilinogen (U) [Mass/Vol] Normal mg/dL Normal [facility] WBC Auto (Bld) [#/Vol]Ordere d By: Denny Azevedo on 08-11-2023 WBC (Bld) [#/Vol] 7.9 10*3/uL 3.8-11.6 [facility] pH Auto test strip (U)Ordere d By: Denny Azevedo on 08-11-2023 pH (U) 6.5 [pH] 5.0-9.[address] [facility] BILIRUBIN CONJUGATED (DIRECT )on 03-03-2022 BILI, CONJUGATED 0.3 mg/dL Critically high 0.0-0.2 [facility] Comment on above: Performed By: #### D FERNANDEZ #### [facility] [address] [place] [id number] Yaritza Bojorquez CBC AUTO DIFFon 03-03-2022 BASO # 0.1 103/ul Normal 0.0-0.1 [facility] Comment on above: Performed By: #### C BC #### [facility] [address] [address] [address] Yaritza Bojorquez Basophils/100 WBC (Bld) 0.5 % Normal 0.2-2.0 [facility] Comment on above: Performed By: #### C BC #### [facility] [address] [place] [address] Dr. Yaritza Bojorquez EO # 0.0 103/ul Normal 0.0-0.7 [facility] Comment on above: Performed By: #### C BC #### [facility] [address] [address] [address] Yaritza Bojorquez Eosinophils/100 WBC (Bld) 0.1 % Critically low 0.9-7.0 [facility] Comment on above: Performed By: #### C BC #### [facility] [address] [place] [address] Dr. Yaritza Bojorquez Erythrocyte distribution width (RBC) [Ratio] 12.1 % Normal 11.0-15.0 [facility] Comment on above: Performed By: #### C BC #### [facility] [address] [place] [address] Dr. Yaritza Bojorquez Hematocrit (Bld) [Volume fraction] 45.0 % Normal 36.0-48.0 [facility] Comment on above: Performed By: #### C BC #### [facility] [address] [place] [address] Dr. Yaritza Bojorquez Hemoglobin (Bld) [Mass/Vol] 16.5 g/dL Critically high 12.0-16.0 [facility] Comment on above: Performed By: #### C BC #### [facility] [address] [place] [address] Dr. Yaritza Bojorquez IG # 0.05 10e3/ul Critically high 0.00-0.03 [facility] Comment on above: Performed By: #### C BC #### [facility] [address] [place] [address] Dr. Yaritza Bojorquez IG % 0.3 % Normal 0.0-0.5 [facility] Comment on above: Performed By: #### C BC #### [facility] [address] [place] [address] Dr. Yaritza Bojorquez LYMPH # 3.2 103/ul Normal 1.2-3.8 [facility] Comment on above: Performed By: #### C BC #### [facility] [address] [place] [address] Dr. Yaritza Bojorquez Lymphocytes/100 WBC (Bld) 21.6 % Normal 20.5-60.0 [facility] Comment on above: Performed By: #### C BC #### [facility] [address] [place] [address] Dr. Yaritza Bojorquez MANUAL DIFF REQ NO Normal [facility] Comment on above: Performed By: #### C BC #### [facility] [address] [place] [address] Dr. Yaritza Bojorquez MCH (RBC) [Entitic mass] 30.7 pg Normal 26.7-34.0 [facility] Comment on above: Performed By: #### C BC #### [facility] [address] [place] [address] Dr. Yaritza Bojorquez MCHC (RBC) [Mass/Vol] 36.7 g/dL Critically high 29.9-35.2 [facility] Comment on above: Performed By: #### C BC #### [facility] [address] [place] [address] Dr. Yaritza Bojorquez MCV (RBC) [Entitic vol] 83.8 fL Normal 81.0-99.0 [facility] Comment on above: Performed By: #### C BC #### [facility] [address] [place] [address] Dr. Yaritza Bojorquez MONO # 0.8 103/ul Normal 0.3-0.8 [facility] Comment on above: Performed By: #### C BC #### [facility] [address] [place] [address] Dr. Yaritza Bojorquez Monocytes/100 WBC (Bld) 5.3 % Normal 1.7-12.0 [facility] Comment on above: Performed By: #### C BC #### [facility] [address] [place] [address] Dr. Yaritza Bojorquez NEUT # 10.5 103/ul Critically high 1.4-6.5 [facility] Comment on above: Performed By: #### C BC #### [facility] [address] [place] [address] Dr. Yaritza Bojorquez Neutrophils/100 WBC (Bld) 72.2 % Normal 43.0-75.0 [facility] Comment on above: Performed By: #### C BC #### [facility] [address] [place] [address] Dr. Yaritza Bojorquez Platelet mean volume (Bld) [Entitic vol] 10.0 fL Normal 9.5-13.5 [facility] Comment on above: Performed By: #### C BC #### [facility] [address] [place] [address] Dr. Yaritza Bojorquez PLT 450 103/ul Normal 150-450 [facility] Comment on above: Performed By: #### C BC #### [facility] [address] [place] [address] Dr. Yaritza Bojorquez RBC 5.37 106/ul Normal 4.20-5.40 [facility] Comment on above: Performed By: #### C BC #### [facility] [address] [place] [address] Dr. Yaritza Bojorquez WBC 14.6 103/ul Critically high 4.0-11.0 [facility] Comment on above: Performed By: #### C BC #### [facility] [address] [place] [address] Dr. Yaritza Bojorquez CULTURE URINEon 03-03-2022 CULTURE URINE Culture Observations : LIGHT GROWTH OF MIXED GENITAL KRYSTAL. NO POTENTIAL PATHOGENS SEEN. Normal [facility] Comment on above: Performed By: #### U RCX #### [facility] [address] [place] [address] Dr. Yaritza Bojorquez ER URINE PROFILEon 2 Bilirubin Ql (U) Negative Normal NEGATIVE [facility] Comment on above: Performed By: #### E RUR, UMICRO #### [facility] [address] [place] [address] Dr. Yaritza Bojorquez Clarity (U) CLEAR Normal CLEAR [facility] Comment on above: Performed By: #### Sandoval URIBE UMICRO #### [facility] [address] [place] [address] Dr. Yaritza Bojorquez Color (U) DK. YELLOW Normal YELLOW [facility] Comment on above: Performed By: #### E JOJO UMICRO #### [facility] [address] [place] [address] Dr. Yaritza Bojorquez ERUAHD A micrscopic examina tion will be performed if indicated. Normal [facility] Comment on above: Performed By: #### Sandoval URIBE UMICRO #### [facility] [address] [place] [address] Dr. Yaritza Bojorquez Glucose Ql (U) Negative Normal NEGATIVE [facility] Comment on above: Performed By: #### Sandoval URIBE UMICRO #### [facility] [address] [place] [address] Dr. Yaritza Bojorquez Hemoglobin Ql (U) Negative Normal NEGATIVE [facility] Comment on above: Performed By: #### Sandoval URIBE UMICRO #### [facility] [address] [place] [address] Dr. Yaritza Bojorquez Ketones Ql (U) >=80 Abnormal NEGATIVE [facility] Comment on above: Performed By: #### Sandoval URIBE UMICRO #### [facility] [address] [place] [address] Dr. Yaritza Bojorquez LEUKOCYTES TRACE Abnormal NEGATIVE [facility] Comment on above: Performed By: #### Sandoval URIBE UMICRO #### [facility] [address] [place] [address] Dr. Yaritza Bojorquez Nitrite Ql (U) Negative Normal NEGATIVE [facility] Comment on above: Performed By: #### Sandoval URIEB UMICRO #### [facility] [address] [place] [address] Dr. Yaritza Bojorquez pH (U) 6.5 [pH] Normal 5-9 [facility] Comment on above: Performed By: #### Sandoval URIBE UMICRO #### [facility] [address] [place] [address] Dr. Yaritza Bojorquez Protein (U) [Mass/Vol] 100 mg/dL Abnormal NEGAT TORSTEN/ TRACE [facility] Comment on above: Performed By: #### TAYLA MAE #### [facility] [address] [place] [address] Dr. Yaritza Bojorquez SPEC GRAVITY 1.025 Normal 1.005-<=1. 025 [facility] Comment on above: Performed By: #### TAYLA MAE #### [facility] [address] [place] [address] Dr. Yaritza Bojorquez UR MICRO IND INDICATED Normal [facility] Comment on above: Performed By: #### TAYLA MAE #### [facility] [address] [place] [address] Dr. Yaritza Bojorquez Urobilinogen Qn (U) 4 {Emir'U}/dL Abnormal 0.2 - 1.0 [facility] Comment on above: Performed By: #### TAYLA MAE #### [facility] [address] [place] [address] Dr. Yaritza Bojorquez PROF 14(COMP METB)on 022 Albumin [Mass/Vol] 4.5 g/dL Normal 3.4-5.0 [facility] Comment on above: Performed By: #### C MP #### [facility] [address] [place] [address] Dr. Yaritza Bojorquez Albumin/Globulin [Mass ratio] 1.2 {ratio} Normal [facility] Comment on above: Performed By: #### C MP #### [facility] [address] [place] [address] Dr. Yaritza Bojorquez ALP [Catalytic activity/Vol] 48 U/L Normal 46-116 [facility] Comment on above: Performed By: #### C MP #### [facility] [address] [place] [address] Dr. Yaritza Bojorquez ALT [Catalytic activity/Vol] 25 U/L Normal 14-59 [facility] Comment on above: Performed By: #### C MP #### [facility] [address] [address] [address] Yaritza Bojorquez Anion gap [Moles/Vol] 17.8 mmol/L Normal [facility] Comment on above: Performed By: #### C MP #### [facility] [address] [address] [address] Yaritza Bojorquez AST [Catalytic activity/Vol] 11 U/L Critically low 15-37 [facility] Comment on above: Performed By: #### C MP #### [facility] [address] [address] [address] Yaritza Bojorquez Bilirubin [Mass/Vol] 1.4 mg/dL Critically high 0.2-1.0 [facility] Comment on above: Performed By: #### C MP #### [facility] [address] [place] [address] Dr. Yaritza Bojorquez Calcium [Mass/Vol] 9.3 mg/dL Normal 8.5-10.1 [facility] Comment on above: Performed By: #### C MP #### [facility] [address] [address] [address] Yaritza Bojorquez Chloride [Moles/Vol] 98 mmol/L Normal 98-107 [facility] Comment on above: Performed By: #### C MP #### [facility] [address] [place] [address] Dr. Yaritza Bojorquez CO2 [Moles/Vol] 19.1 mmol/L Critically low 21.0-32.0 [facility] Comment on above: Performed By: #### C MP #### [facility] [address] [place] [address] Dr. Yaritza Bojorquez Creatinine [Mass/Vol] 0.95 mg/dL Normal 0.55-1.02 [facility] Comment on above: Performed By: #### C MP #### [facility] [address] [place] [address] Dr. Yaritza Bojorquez EGFR-AF MEXICAN >60 Normal >=60 [facility] Comment on above: Performed By: #### C MP #### [facility] [address] [place] [address] Dr. Yaritza Bojorquez EGFR-NON AF MEXICAN >60 Normal >=60 [facility] Comment on above: Performed By: #### C MP #### [facility] [address] [place] [address] Dr. Yaritza Bojorquez Globulin (S) [Mass/Vol] 3.6 g/dL Normal [facility] Comment on above: Performed By: #### C MP #### [facility] [address] [address] [address] Yaritza Bojorquez Glucose [Mass/Vol] 138 mg/dL Critically high 74-106 T [facility] Comment on above: Performed By: #### C MP #### [facility] [address] [place] [address] Dr. Yaritza Bojorquez Potassium [Moles/Vol] 2.9 mmol/L Critically low 3.5-5.1 [facility] Comment on above: Performed By: #### C MP #### [facility] [address] [place] [address] Dr. Yaritza Bojorquez Protein [Mass/Vol] 8.1 g/dL Normal 6.4-8.2 [facility] Comment on above: Performed By: #### C MP #### [facility] [address] [place] [address] Dr. Yaritza Bojorquez Sodium [Moles/Vol] 132 mmol/L Critically low 136-145 [facility] Comment on above: Performed By: #### C MP #### [facility] [address] [place] [address] Dr. Yaritza Bojorquez Urea nitrogen [Mass/Vol] 8.0 mg/dL Normal 7.0-18.0 [facility] Comment on above: Performed By: #### C MP #### [facility] [address] [place] [address] Dr. Yaritza Bojorquez Urea nitrogen/Creatinine [Mass ratio] 8.4 mg/mg Normal [facility] Comment on above: Performed By: #### C MP #### [facility] [address] [place] [address] Dr. Yaritza Bojorquez URINE MICROSCOPIC ONLYon BACTERIA MODERATE Abnormal NONE SEEN [facility] Comment on above: Performed By: #### E RUR, UMICRO #### [facility] [address] [place] [address] Dr. Yaritza Bojorquez Bacteria identified Cx Nom (U) INDICATED Normal [facility] Comment on above: Performed By: #### E RUR, UMICRO #### [facility] [address] [place] [address] Dr. Yaritza Bojorquez CAST NONE SEEN Normal NONE SEEN [facility] Comment on above: Performed By: #### E RUR, UMICRO #### [facility] [address] [place] [address] Dr. Yaritza Bojorquez Crystals LM Nom (Urine sed) NONE SEEN Normal NONE SEEN [facility] Comment on above: Performed By: #### E RUR, UMICRO #### [facility] [address] [place] [address] Dr. Yaritza Bojorquez Epithelial cells LM Ql (Urine sed) MANY Abnormal NONE SEEN /RARE [facility] Comment on above: Performed By: #### E RUR, UMICRO #### [facility] [address] [place] [address] Dr. Yaritza Bojorquez MUCOUS SMALL Abnormal NONE SEEN [facility] Comment on above: Performed By: #### E RUR, UMICRO #### [facility] [address] [place] [address] Dr. Yaritza Bojorquez RBC 2-5 Abnormal 0-2 [facility] Comment on above: Performed By: #### Sandoval URIBE UMICRO #### [facility] [address] [place] [address] Dr. Yaritza Bojorquez WBC 5-10 Abnormal NONE SEEN [facility] Comment on above: Performed By: #### E JOJO, UMICRO #### [facility] [address] [place] [address] Dr. Yaritza Bojorquez XR ABD FLAT UP_PA [...] MACK SAMUELS Date: 2022-03-03 07:46 Normal [facility] Covid-19 PCR (CVDTB)on 07-29 SARS-CoV-2 (COVID-19) RNA KOLE+probe Ql (Unsp spec) Not detected Normal NOT DETECTED [facility] Comment on above: Result Comment: This test is not yet approved or cleared by the [place] FDA. When there are no FDA-approved or cleared tests available, and other criteria are met, FDA can make tests available under an emergency access mechanism called an Emergency Use Authorization (EUA). The EUA for this test is supported by the [place] of Health and Human Service's (HHS's) declaration [...] consistent with SARS-CoV-2. Performed By: #### [facility] #### [facility] [address] [place] [address] Dr. 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) Is : no(1) RESULTS/VITAL SIGNS VITAL SIGNS: T PRBP SpO2O2(LPM) %FiO2 Method 22-Jun-2019 18:54:[id number] 99 room air, no respiratory support 22-Jun-2019 18:07:[id number] 97 room air, no respiratory support MEDICAL [...] - Final Verification: completed Procedure performed by: mn Editor Department(s): none Findings: grossly normal anatomy Specimen: no [...] From Triage - ED 22-Jun-2019 18:07 Normal [facility] Risk Screen - Adult Emergenc yon 06-22-2019 Risk Screen - Adult Emergency Preferred Language: Preferred Language: Preferred Language for Discussing Health Care (patient/designee)Afghan Advanced Directives: Advance Directive/DNRno Family Violence Adult: Abuse Screen: Are you or have you been threatened or abused physically, emotionally, or sexually by anyoneno Learning Assessment (Patient): Learning Assessment (Patient): Patient is Able to be Assessed for Learningyes Factors Influencing Readiness to Learnacuteness of illness Factors that Impact Ability to Learnnone Devices/Methods Used to Communicatenone Learning Preferencesaudio Cultural Considerationsnone Developmental Considerationsnone Adventism Considerationsnone Learning Assessment (Other Learner): Learning Assessment (Other Learner): Other learner availableno Pressure Injury/TB/Substance: Pressure Injury: Pressure Injury Present on Admissionno Do you have a coughno Substance Use Current or Former Historynever: Cigarette/Tobacco, e-Cigarette/Vaping, Alcohol, Street Drugs Admission Risk Screen: Significant IndicatorsComplete CAGE: CAGE: Is this an injured patient at a Trauma Center ([facility]/[place]/[facility]): yes C: Have you ever felt you needed to Cut down on your drinking: no A: Have people Annoyed you by criticizing your drinking: no G: Have you ever felt Guilty about drinking: no E: Have you ever felt you needed a drink first thing in the morning (Eye-cloth finishing range tender) to steady your nerves or to get rid of hangover: no Electronic Signatures: Mehdi Chaney (MALU) (Signed 22-Jun-2019 18:11) Authored: Preferred Language, Advanced Directives, Family Violence Adult, Learning Assessment (Patient), Learning Assessment (Other Learner), Pressure Injury/TB/Substance, CAGE Last Updated: 22-Jun-2019 18:11 by Mehdi Chaney (RN) [facility] Triage - EDon 06-22-2019 Triage - ED [...] than 3 weeks: no Travel outside of [facility]: no Allergies: yes Last menstrual period: 24-May-2019 [...] Accompanied By: self Language: Spoken Language Preferred: Afghan PRIMARY ASSESSMENT CHENTE GONZALEZ's primary assessment is Within Normal Limits. The airway is open and patent. Breathing spontaneous and unlabored with clear breath sounds bilaterally. Circulation is normal with good peripheral pulses. Skin is warm and dry and color is normal for race. Past Medical History: Past Medical History Reviewedyes Electronic Signatures: Nitin Singer (AYALA) (Signed 22-Jun-2019 18:40) Authored: Triage Mehdi Chaney) (Signed 22-Jun-2019 18:10) Authored: Triage, Past Medical History Last Updated: 22-Jun-2019 18:40 by Nitin Singer (AYALA) Normal [facility] Vital Signs Date Time Vital Sign Value Performing Clinician Facility 05-15-2025 10:03-0400 Body mass index (BMI) [Ratio] 36.08 kg/m2 Deyanira KABA Work Phone: [facility] 05-15-2025 10:03-0400 Body weight 98.34 kg Deyanira KABA Work Phone: [facility] 05-15-2025 10:03-0400 Diastolic blood pressure 78 mm[Hg] Deyanira Mccloud PA Work Phone: [facility] 05-15-2025 10:03-0400 Systolic blood pressure 140 mm[Hg] Deyanira Juan PA Work Phone: [facility] 04-30-2025 15:05-0400 Body mass index (BMI) [Ratio] 35.01 kg/m2 Jaspreet Angie DO Work Phone: [facility] 04-30-2025 15:05-0400 Body weight 95.44 kg Jaspreet Angie DO Work Phone: [facility] 04-30-2025 15:05-0400 Diastolic blood pressure 70 mm[Hg] Jaspreet Angie DO Work Phone: [facility] 04-30-2025 15:05-0400 Systolic blood pressure 120 mm[Hg] Jaspreet Angie DO Work Phone: [facility] 04-17-2025 10:41-0400 Body mass index (BMI) [Ratio] 33.91 kg/m2 Deyanira Mccloud PA Work Phone: [facility] 04-17-2025 10:41-0400 Body weight 92.44 kg Deyanira Juan PA Work Phone: [facility] 04-17-2025 10:41-0400 Diastolic blood pressure 86 mm[Hg] Deyanira Mccloud PA Work Phone: [facility] 04-17-2025 10:41-0400 Systolic blood pressure 134 mm[Hg] Deyanira Mccloud PA Work Phone: [facility] 04-03-2025 10:50-0400 Body mass index (BMI) [Ratio] 33.35 kg/m2 Jaspreet Angie DO Work Phone: [facility] 04-03-2025 10:50-0400 Body weight 90.9 kg Jaspreet Angie DO Work Phone: [facility] 04-03-2025 10:50-0400 Diastolic blood pressure 72 mm[Hg] Jaspreet Angie DO Work Phone: [facility] 04-03-2025 10:50-0400 Systolic blood pressure 130 mm[Hg] Jaspreet Angie DO Work Phone: [facility] 03-05-2025 11:16-0400 Body mass index (BMI) [Ratio] 31.62 kg/m2 Jaspreet Angie DO Work Phone: [facility] 03-05-2025 11:16-0400 Body weight 86.18 kg Jaspreet Angie DO Work Phone: [facility] 03-05-2025 11:16-0400 Diastolic blood pressure 78 mm[Hg] Jaspreet Angie DO Work Phone: [facility] 03-05-2025 11:16-0400 Systolic blood pressure 128 mm[Hg] Jaspreet Angie DO Work Phone: [facility] 01-29-2025 10:57-0400 Body mass index (BMI) [Ratio] 31.53 kg/m2 Willy Austin ATHLETICS DIRECTOR Work Phone: [facility] 01-29-2025 10:57-0400 Body weight 85.96 kg Willy Austin ATHLETICS DIRECTOR Work Phone: [facility] 01-29-2025 10:57-0400 Diastolic blood pressure 80 mm[Hg] Willy Austin ATHLETICS DIRECTOR Work Phone: [facility] 01-29-2025 10:57-0400 Systolic blood pressure 136 mm[Hg] Willy Austin ATHLETICS DIRECTOR Work Phone: [facility] 01-24-2025 11:42-0400 Diastolic blood pressure 70 mm[Hg] Noms Nurse [facility] 01-24-2025 11:42-0400 Systolic blood pressure 142 mm[Hg] Noms Nurse [facility] 01-24-2025 11:21-0400 Body mass index (BMI) [Ratio] 32.01 kg/m2 Nom Nurse [facility] 01-24-2025 11:21-0400 Body weight 87.26 kg Nom Nurse [facility] 12-23-2024 13:51-0400 Body mass index (BMI) [Ratio] 31.35 kg/m2 Jaspreet Angie DO Work Phone: [facility] 12-23-2024 13:51-0400 Body weight 85.46 kg Jaspreet Angie DO Work Phone: [facility] 12-23-2024 13:51-0400 Diastolic blood pressure 78 mm[Hg] Jaspreet Angie DO Work Phone: [facility] 12-23-2024 13:51-0400 Systolic blood pressure 118 mm[Hg] Jaspreet Angie DO Work Phone: [facility] 08-11-2023 22:07-0500 Diastolic blood pressure 64 mm[Hg] PHYSICIAN NO [facility] 08-11-2023 22:07-0500 Heart rate 71 /min PHYSICIAN NO [facility] 08-11-2023 22:07-0500 Respiratory rate 18 /min PHYSICIAN NO [facility] 08-11-2023 22:07-0500 SaO2% (BldA) [Mass fraction] 99 % PHYSICIAN NO [facility] 08-11-2023 22:07-0500 Systolic blood pressure 126 mm[Hg] PHYSICIAN NO [facility] 08-11-2023 19:17-0500 Body height 170.18 cm PHYSICIAN NO [facility] 08-11-2023 19:17-0500 Body weight 80.73 kg PHYSICIAN NO [facility] Encounters Encounter Date Encounter Type Care Provider Facility Start: 05-19-2025 End: 05-19-2025 Clinisync Result Encounter Jaspreet Angie DO Work Phone: [facility] Unsolicited Start: 05-19-2025 End: 05-19-2025 Clinisync Result Encounter Jaspreet Angie DO Work Phone: [facility] External [facility] Unsolicited Start: 05-15-2025 End: 05-15-2025 Bamboo flowsheet Deyanira Mccloud PA Work Phone: [facility] Start: 05-15-2025 End: 05-15-2025 Bamboo flowsheet Deyanira KABA Work Phone: [facility] Start: 05-15-2025 End: 05-15-2025 ambulatory DEYANIRA MCCLOUD Not Available Start: 05-15-2025 End: 05-15-2025 Office outpatient visit 15 minutes Deyanira KABA Work Phone: [facility] Comment on above: 33 weeks gestation o f ([facility]); Third trimester ([facility]); Gestational diabetes mellitus (GDM), antepartum, gestational diabetes method of control unspecified ([facility]) Start: 04-30-2025 End: 04-30-2025 Office outpatient visit 15 minutes Jaspreet Angie DO Work Phone: [facility] Comment on above: 31 weeks gestation o f ([facility]); Third trimester ([facility]); Gestational diabetes mellitus (GDM), antepartum, gestational diabetes method of control unspecified ([facility]) Start: 04-30-2025 End: 04-30-2025 ambulatory JASPREET [...] incons istent with dates in second trimester ([facility]) (Primary Dx); Third trimester ([facility]); 29 weeks gestation of ([facility]) Start: 04-03-2025 End: 04-03-2025 Bamboo flowsheet Jaspreet Angie DO Work Phone: [facility] Start: 04-03-2025 End: 04-03-2025 Bamboo flowsheet Jaspreet Angie DO Work Phone: [facility] Start: 04-03-2025 End: 04-03-2025 ambulatory JASPREET ANGIE Not Available Start: 04-03-2025 End: 04-03-2025 Office outpatient visit 15 minutes Jaspreet Angie DO Work Phone: [facility] Comment on above: Second trimester pre gnancy ([facility]); 27 weeks gestation of ([facility]) Start: 03-28-2025 End: 03-28-2025 Chart abstracting Scanning Provider External Maternal- Medicine at [facility] Start: 03-21-2025 End: 03-21-2025 Clinisync Result Encounter [...] Comment on above: Second trimester pre gnancy ([facility]); 23 weeks gestation of ([facility]); Diabetes mellitus screening; Well woman exam with routine gynecological exam; Other insomnia Start: 03-05-2025 End: 03-05-2025 ambulatory JASPREET ANGIE Not Available Start: 02-19-2025 End: 02-19-2025 ambulatory WILLY AUSTIN Not Available Start: 02-12-2025 End: 02-12-2025 ambulatory JASPREET ANGIE Not Available Start: 01-31-2025 End: 01-31-2025 Clinisync Result Encounter Jaspreet Parikho DO Work Phone: [facility] External [facility] Unsolicited Start: 01-31-2025 End: 01-31-2025 Clinisync Result Encounter Jaspreet Angie DO Work Phone: [facility] External Department Unsolicited Start: 01-29-2025 End: 01-29-2025 Bamboo flowsheet Willy Austin ATHLETICS DIRECTOR Work Phone: [facility] Start: 01-29-2025 End: 01-30-2025 Bamboo flowsheet Willy Austin ATHLETICS DIRECTOR Work Phone: [facility] Start: 01-29-2025 End: 01-30-2025 External Result Encounter Willy Austin ATHLETICS DIRECTOR Work Phone: [facility] External Department Unsolicited Start: 01-29-2025 End: 01-29-2025 ambulatory WILLY AUSTIN Not Available Start: 01-29-2025 End: 01-29-2025 Office outpatient visit 15 minutes Willy Avila ATHLETICS DIRECTOR Work Phone: [facility] Comment on above: Second trimester pre gnancy; 18 weeks gestation of Start: 01-24-2025 End: 01-24-2025 Office outpatient visit 5 minutes [facility] Angie Nurse [facility] Comment on above: GA: 17w3d Start: 01-24-2025 End: 01-24-2025 ambulatory JASPREET ANGIE Not Available Start: 01-06-2025 End: 01-06-2025 ambulatory Cristal Butt Marker Facility:[facility] Start: 01-06-2025 End: 01-06-2025 Departed Referred Cristal Marker DO Work Phone: [facility] Start: 12-23-2024 End: 12-23-2024 Bamboo flowsheet [...] patient visit PHYSICIAN SASKIA HERR [facility] Work Phone: Start: 03-03-2022 End: 03-03-[address] DOCTOR BARBOZA Facility:[facility] Start: 08-23-2021 End: 08-23-2021 ambulatory ADEOLA COHEN Facility:[facility] Procedures Date Procedure Procedure Detail Performing Clinician Start: 05-19-2025 US OB BPP W NON-STRESS Jaspreet Angie DO Work Phone: Start: 05-15-2025 Urnls dip stick/tabl et rgnt non-auto w/o micrscp Deyanira Mccloud PA Work Phone: Start: 04-30-2025 Urnls dip stick/tabl [...] URINARY TRACT INFECT ION (HTRX) Willy Avila ATHLETICS DIRECTOR Work Phone: Start: 01-29-2025 Urnls dip stick/tabl et rgnt non-auto w/o micrscp Willy Avila ATHLETICS DIRECTOR Work Phone: Start: 01-24-2025 Urnls dip stick/tabl et rgnt non-auto w/o micrscp Jaspreet Adams Work Phone: Start: 08-11-2023 Plain X-ray of [...] encounter procedure 06/02/2025 11:20 AM EDT Routine [facility] [address] [place] [address] Willy Avila, ATHLETICS DIRECTOR [address] [place] [phone] [facility] Start: 04-30-2025 End: 10-28-2025 US biophysical profile w non stress test US biophysical profile w non stress test Imaging Routine Gestational diabetes mellitus (GDM), antepartum, gestational diabetes method of control unspecified ([facility]) Expected: 04/30/2025 (Approximate), Expires: 10/28/2025 [facility] Work Phone: Comment on above: Expected: 04/30/2025 (Approximate), Expires: 10/28/2025 Start: 04-28-2025 Influenza vaccination Influenza Vacc ine [facility] Start: 04-17-2025 End: 08-17-2025 US for US OB follow up transabdominal approach Imaging Routine Size of fetus inconsistent with dates in second trimester ([facility]) Expected: 04/17/2025, Expires: 08/17/2025 [facility] Work Phone: Comment on above: Expected: 04/17/2025 , Expires: 08/17/2025 Start: 04-17-2025 End: 04-17-2025 Patient encounter procedure 04/17/2025 9:50 AM EDT Routine [facility] [address] [place] [phone] Deyanira Mccloud PA [address] [place], [place] [id number] [facility] [place] [facility] Start: 04-03-2025 End: 04-03-2025 ambulatory 04/03/2025 1:30 PM EDT Support Visit Maternal- Medicine at [facility] [address] [place] [address] Rimma Richey, MALU [address] [facility], [address] [place] [address] Nikky Gonzalez, Consuelo Blanco, BLADE [address] [place] [address] Maternal- Medicine at [facility] Start: 04-03-2025 End: 04-03-2025 Patient encounter procedure 04/03/2025 10:40 AM EDT Routine [facility] [address] [place] [phone] Jaspreet Adams DO [address] [place], [place] [id number] [facility] Start: 03-19-2025 End: 03-19-2025 Professional / ancillary services management 03/19/2025 9:30 AM EDT Ancillary Procedure [facility] [address] [place] [address] [facility] Start: 03-05-2025 End: 03-05-2026 CBC panel - Blood by Automated count CBC Lab Routine Diabetes mellitus screening Expected: 03/05/2025 (Approximate), Expires: 03/05/2026 [facility] Comment on above: Expected: 03/05/2025 (Approximate), [...] AM EDT Routine [facility] [address] [place] [address] Jaspreet Adams, DO [address] [place] [address] Arrived [facility] Comment on above: Arrived Start: 02-27-2025 End: 02-27-2025 Patient encounter procedure 02/27/2025 8:50 AM EDT Routine [facility] [address] [place] [address] Jaspreet Adams, DO [address] [place] [address] [facility] Start: 02-12-2025 End: 02-12-2025 Clinical Support 02/12/2025 9:00 AM EDT Clinical Support [facility] [address] [place] [address] [facility] Start: 01-29-2025 End: 01-29-2025 Patient encounter procedure 01/29/2025 10:20 AM EDT Routine [facility] [address] [place] [address] [address] [place], [place] [address] Willy Avila, ATHLETICS DIRECTOR [address] [place] [address] [place] [address] [facility] Start: 01-24-2025 End: 01-24-2026 ABO/Rh ABO/Rh Lab Routine Missed menses , unspecified gestational age Expected: 01/24/2025 (Approximate), Expires: 01/24/2026 [facility] Comment on above: Expected: 01/24/2025 (Approximate), Expires: 01/24/2026 Start: 01-24-2025 End: 03-26-2025 Alpha fetoprotein, maternal Alpha fetoprotein, maternal Lab Routine Encounter for supervision of normal first in first trimester Expected: 01/24/2025 (Approximate), Expires: 03/26/2025 [facility] Comment on above: Expected: 01/24/2025 (Approximate), Expires: 03/26/2025 Start: 01-24-2025 End: 01-24-2026 Blood type and Indirect antibody screen panel - Blood Type and screen Lab Routine Missed menses , unspecified gestational age Expected: 01/24/2025 (Approximate), Expires: 01/24/2026 [facility] Work Phone: Comment on above: Expected: 01/24/2025 (Approximate), Expires: 01/24/2026 Start: 01-24-2025 End: 01-24-2026 Drugs of abuse panel - Urine by Screen method Rapid drug screen, urine Lab Routine , unspecified gestational age Encounter for supervision of normal first in first trimester Expected: 01/24/2025 (Approximate), Expires: 01/24/2026 [facility] Comment on above: Expected: 01/24/2025 (Approximate), Expires: 01/24/2026 Start: 01-10-2025 End: 01-10-2025 ambulatory 01/10/2025 9:30 AM EDT Initial [facility] [address] [place] [address] [address] [place], [place] [address] [facility] Start: 01-10-2025 End: 01-10-2025 Professional / ancillary services management 01/10/2025 9:00 AM EDT Ancillary Procedure [facility] [address] [place] [phone] [facility] Start: 01-06-2025 Bacteria identified in Urine by Culture Urine Culture [facility] Start: 01-06-2025 Urine culture [facility] Start: 2018 Screening for malign ant neoplasm of cervix Pap Smear [facility] Start: 2016 DTaP,Tdap and Td Vaccines (1 - Tdap) DTaP,Tdap and Td Vaccines (1 - Tdap) [facility] Start: 12-07-2015 Adult BMI Screening Adult BMI Screen ing [facility] Start: 2009 Depression Screening Depression Scre ening [facility] Start: 2009 Tobacco Screening Tobacco Screening [facility] Bacteria identified in Urine by Culture Urine culture Microbiology Routine Missed menses Ordered: 01/24/2025 [facility] Comment on above: Ordered: 01/24/2025 Bacteria identified in Urine by Culture Urine culture Microbiology Routine Second trimester Ordered: 01/29/2025 [facility] Work Phone: Comment on above: Ordered: 01/29/2025 CBC W Auto Different ial panel - Blood CBC and differential Lab Routine Missed menses , unspecified gestational age Ordered: 01/24/2025 [facility] Comment on above: Ordered: 01/24/2025 Cytology Cervical or vaginal smear or scraping study Pap Smear Pathology and Cytology Routine Well woman exam with routine gynecological exam Ordered: 03/05/2025 [facility] Work Phone: Comment on above: Ordered: 03/05/2025 Hemoglobin A1c/Hemoglobin.total in Blood Hemoglobin A1c Lab Routine Missed menses , unspecified gestational age Ordered: 01/24/2025 [facility] Comment on above: Ordered: 01/24/2025 Hepatitis B virus surface Ag [Presence] in Serum or Plasma by Immunoassay Hepatitis B surface antigen Lab Routine Missed menses , unspecified gestational age Ordered: 01/24/2025 [facility] Comment on above: Ordered: 01/24/2025 Hepatitis C virus Ab [Presence] in Serum or Plasma by Immunoassay Hepatitis C antibody Lab Routine Missed menses , unspecified gestational age Ordered: 01/24/2025 [facility] Comment on above: Ordered: 01/24/2025 HIV-1/HIV-2 antigen/antibody combination immunoassay HIV-1 and HIV-2 antibodies Lab Routine Missed menses , unspecified gestational age Ordered: 01/24/2025 [facility] Comment on above: Ordered: 01/24/2025 Patient Education Head injury in adults Blunt Abdominal Trauma ED Blunt Chest Trauma ED [facility] Work Phone: Patient referral [facility] Work Phone: Reagin Ab [Presence] in Serum by RPR RPR Lab Routine Missed menses , unspecified gestational age Ordered: 01/24/2025 [facility] Comment on above: Ordered: 01/24/2025 Rubella antibody, IgG Rubella an tibody, IgG Lab Routine Missed menses , unspecified gestational age Ordered: 01/24/2025 [facility] Comment on above: Ordered: 01/24/2025 Immunizations Immunization Date Immunization Notes Care Provider [facility] 08-11-2023 tetanus toxoid, redu christie diphtheria toxoid, and acellular pertussis vaccine, adsorbed PHYSICIAN NO [facility] Payers Date Payer Category Payer Private Health Insurance [facility]ICA[facility] ..[id number] 2025 Self-pay [id number] 2024 Medicaid ..[id number] 2024 Medicaid [id number] 1997 Unknown [id number] 2.16.840.1.484464.3.579.2. 593 1997 Unknown [id number] 2.16.840.1.526908.3.579.2. 593 1997 Unknown [id number] 2.16.840.1.121380.3.579.2. 9 1997 Unknown [id number] 2.16.840.1.727538.3.579.2. 1259 1997 Unknown [id number] 2.16.840.1.578002.3.579.2. 1258 1997 Unknown [id number] 2.16.840.1.029616.3.579.2. 1258 1997 Unknown [id number] 2.16.840.1.137888.3.579.2. 1258 1997 Unknown [id number] 2.16.840.1.356438.3.579.2. 1258 1997 Unknown [id number] 2.16.840.1.192305.3.579.2. 9 1997 Unknown [id number] 2.16.840.1.431658.3.579.2. 9 1997 Unknown [id number] 2.16.840.1.038987.3.579.2. 1258 1997 Unknown [id number] 2.16.840.1.227441.3.579.2. 125 1997 Unknown [id number] 2.16.840.1.158488.3.579.2. 1258 1997 Unknown [id number] 2.16.840.1.812217.3.579.2. 1259 1959 Unknown [id number] Unknown Regular Auto/Liability [id number] Unknown HCAP/HFA/FAP Active [id number] Unknown [id number] 2.16.840.1.029334.3.579.2. 531 Unknown Regular Auto/Liability [id number] Unknown HCAP/HFA/FAP Active [id number] Social History Date Type Detail Facility Start: 08-11-2023 End: 08-11-2023 Tobacco smoking status NHIS Never smoked tobacco (finding) [facility] Start: 1995 Sex Assigned At Female F [facility] Tobacco smoking stat us FLIS Tobacco smoking consumption unknown [facility] Start: 12-22-2024 Gender identity Identifies as female gender (finding) [facility] Sexual orientation Not on file [facility] Start: 01-07-2025 End: 03-26-2025 Sex Female (finding) [facility] Start: 10-08-2024 [facility] Start: 1997 Sex assigned at Not on file P [facility] Medical Equipment Procedure Code Equipment Code Equipment Origin al Text Equipment Identifier Dates 1 strip by In Vi tro route Daily Use in the morning prior to breakfast, 1 hour after each meal for a total of 4times daily. [id number] Start: 03-24-2025 End: 04-23-2025 1 each by In Vit ro route Daily Use to check FSBS four times daily [id number] Start: 03-24-2025 End: 04-23-2025 Clinical Notes 12-23-2024 to 05-15-2025 SENDY Fan - 05/15/2025 9:50 AM Dina Pendleton LPN - 04/30/2025 3:00 PM SENDY Pascual - 04/17/2025 9:50 AM Ilsa Matt LPN - 04/03/2025 10:40 AM EDT Note Date [...] to check FSBS. Blood Glucose Monitoring Suppl (Verimed-IGIGI Glucometer) w/Device kit 1 kit, Does not [...] PLAN ICD-10-CM 1. 33 weeks gestation of ([facility]) Z3A.33 POCT urinalysis dipstick manually resulted 2. Third trimester ([facility]) Z34.93 POCT urinalysis dipstick manually resulted 3. Gestational diabetes mellitus (GDM), antepartum, gestational diabetes method of control unspecified ([facility]) O24.419 Return OB: Patient presents today [...] of: SENDY Fan documented in this encounter [facility] 04-30-2025 History of Present illness Narrative Reason [...] nursing note reviewed. Exam conducted with a community mental health social worker present. Vitals: Estimated body mass index is 35.01 kg/m as calculated from the following: Height as of 12/01/20: 5' 5 . Weight as of this encounter: 210 lb 6.4 oz. BP: 120/70 Patient's last menstrual period was 10/04/2024 (approximate). ASSESSMENT & PLAN ICD-10-CM 1. 31 weeks gestation of ([facility]) Z3A.31 POCT urinalysis dipstick manually resulted 2. Third trimester ([facility]) Z34.93 POCT urinalysis dipstick manually resulted 3. Gestational diabetes mellitus (GDM), antepartum, gestational diabetes method of control unspecified ([facility]) O24.419 US biophysical profile w non [...] Jaspreet Adams DO documented in this encounter [facility] 04-17-2025 History of Present illness Narrative Reason for Appointment: Patient ID: Chente Gonzalez is a 29 y.o. female who presents for No chief complaint on file. Patient presents today for Return OB appointment. MEDICATIONS Current Outpatient Medications Medication Instructions Alcohol Swabs (Alcohol Prep Pad) 70 % pads 1 Pad, Topical, Daily, Use four times daily to check FSBS. Blood Glucose Monitoring Suppl (D-IGIGI Glucometer) w/Device kit 1 kit, Does not [...] ASSESSMENT & PLAN ICD-10-CM 1. Third trimester ([facility]) Z34.93 POCT urinalysis dipstick manually resulted 2. 29 weeks gestation of ([facility]) Z3A.29 POCT urinalysis dipstick manually resulted [...] of: SENDY Fan documented in this encounter [facility] 04-03-2025 History of Present illness Narrative Reason for Appointment: Patient ID: Chente Gonzalez is a 29 y.o. female who presents for Routine Visit Patient presents today for Return OB appointment. MEDICATIONS Current Outpatient Medications Medication Instructions Alcohol Swabs (Alcohol Prep Pad) 70 % pads 1 Pad, Topical, Daily, Use four times daily to check FSBS. Blood Glucose Monitoring Suppl ([employer] Glucometer) w/Device kit 1 kit, Does not [...] nursing note reviewed. Exam conducted with a community mental health social worker present. Vitals: Estimated body mass index is 33.35 kg/m as calculated from the following: Height as of 12/01/20: 5' 5 . Weight as of this encounter: 200 lb 6.4 oz. BP: 130/72 Patient's last menstrual period was 10/04/2024 (approximate). ASSESSMENT & PLAN ICD-10-CM 1. Second trimester ([facility]) Z34.92 Urine dip 2. 27 weeks gestation of ([facility]) Z3A.27 Urine dip Patient presents today for a routine obstetrics appointment. Patient is currently 27w2d with a Estimated Date of Delivery: 07/01/25. Patient brought in FSBS logs for review and patient still desires to hold off on [facility] referral at this time, referral was previously sent on 03/24/25 and when contacted by [facility] patient will inform them that she will postpone scheduling at this time. Patient to return to clinic in 2 weeks for routine OB appointment. Documented by Nissa Matt LPN on behalf of: Jaspreet Adams DO documented in this encounter [facility] 03-05-2025 History of Present illness Narrative Reason [...] nursing note reviewed. Exam conducted with a community mental health social worker present. Vitals: Estimated body mass index is 31.62 kg/m as calculated from the following: Height as of 4/6/21: 5' 5 . Weight as of this encounter: 190 lb. BP: 128/78 Patient's last menstrual period was 10/04/2024 (approximate). ASSESSMENT & PLAN ICD-10-CM 1. Second trimester ([facility]) Z34.92 POCT urinalysis dipstick manually resulted 2. 23 weeks gestation of ([facility]) Z3A.23 3. Diabetes mellitus screening Z13.1 [...] Jaspreet Adams DO documented in this encounter [facility] 01-29-2025 History of Present illness Narrative Reason [...] nursing note reviewed. Exam conducted with a community mental health social worker present. Vitals: Estimated body mass index is [...] Willy Avila NP documented in this encounter [facility] 01-24-2025 History of Present illness Narrative Reason [...] or undercooked meat, and stay away from [facility]. Patient has also been advised to [...] Kalyn Jacob MA documented in this encounter [facility] 12-23-2024 History of Present illness Narrative Reason [...] nursing note reviewed. Exam conducted with a community mental health social worker present. Vitals: Estimated body mass index is [...] Jaspreet Adams DO documented in this encounter [facility] Healthcare Evaluation note No assessment inform ation available [facility] Work Phone: Evaluation note Diagnosis [...] encounter [facility]Not on filedocumented [facility] Purpose Family History Relationship Condition Age [...] section and content) DATE CREATED AUTHOR [facility] DATE CREATED AUTHOR AUTHOR'S ORGANIZ ATION 06/07/2022 [facility] DATE CREATED AUTHOR AUTHOR'S ORGANIZ ATION 01/09/2025 [facility] [address] [facility] DATE CREATED AUTHOR AUTHOR'S ORGANIZ ATION 05/16/2025 [facility] EPIC Care Teams (unrecognized [...] BE BASED ON THE PRIMARY CLINICAL RECORDS. [facility], [facility]. provides no warranty or guarantee of the accuracy or completeness of information in this document.
[2025-05-19] MEDS: 0.9 % SODIUM CHLORIDE 1,000 ML 999 ML IV (11:05)
[2025-05-19 11:09] LABS: Hematocrit 35.6 % (36.0-48.0); Hemoglobin 12.7 g/dL (12.0-16.0); Immature Granulocytes Abs Auto 0.09 10^3/uL (0.00-0.03); Immature Granulocytes Pct Auto 0.9 % (0.0-0.5); Lymphocytes Absolute Auto 1.6 10^3/uL (1.2-3.8); Mean Corpuscular HGB Conc 35.7 g/dL (29.9-35.2); Mean Corpuscular Hemoglobin 31.1 pg (26.7-34.0); Mean Corpuscular Volume 87.0 fL (81.0-99.0); Platelet Count 322 10^3/uL (150-450); Red Blood Count 4.09 10^6/uL (4.20-5.40); White Blood Count 10.5 10^3/uL (4.0-11.0)
[2025-05-19] MEDS: BETAMETHASONE ACE/BETAMETHASONE SOD PHOS 30 MG/5 ML 12 MG IM (11:13)
[2025-05-19 11:23] LABS: Alanine Aminotransferase 25 U/L (14-59); Aspartate Amino Transferase 15 U/L (15-37); Blood Urea Nitrogen 7.0 mg/dL (7.0-18.0); Estimated GFR (African America >60 (>=60 mL/min/1.73m^2); Estimated GFR (Non-African Ame >60 (>=60 mL/min/1.73m^2); Uric Acid 4.4 mg/dL (2.6-6.0)
[2025-05-19] MEDS: LABETALOL HCL 100 MG TABLET 200 MG PO (11:34)
[2025-05-19 11:42] LABS: Fibrinogen 552 mg/dL (200-400); INR <0.93; Partial Thromboplastin Time 24.8 sec (22.3-36.2); Prothrombin Time 9.8 sec (9.0-11.6)
[2025-05-19 11:50] LABS: Protein Creatinine Ratio Urine 0.72; Total Protein Urine Random 35.9 mg/dL (<=11.9)
[2025-05-19] MEDS: 0.9 % SODIUM CHLORIDE 1,000 ML 125 ML IV (12:15)
== END 2025-05-19 15:20 | disposition home or self-care (01) ==
LOC: US 10:55 → FBC 10:55
PROVIDERS: Admitting Provider Obstetrics & Gynecology; Visit Provider Obstetrics & Gynecology
DX: O99.891 Other specified diseases and conditions complicating pregnancy (principal); Z3A.33 33 weeks gestation of pregnancy; R03.0 Elevated blood-pressure reading, without diagnosis of hypertension
CPT/HCPCS: 36415; 76818; 82565; 82570; 84156; 84450; 84460; 84520; 84550; 85025; 85384; 85610; 85730; 96372; G0378; G0379; J0702

== ENCOUNTER 2025-05-20 11:06 | Outpatient (OUT) | payer OTHER, SELFPAY ==
--- OUTSIDE RECORDS SUMMARY | 2025-05-15 09:50 | XMS_ITS | Encounter Summary ---
Author Organization [facility] Address [address] [facility] [place] [address] Care Team Providers Care Anesthesiology Resident Name Role Phone Unavailable Primary Care Provider Unavailabl e Encounter Details Date Type Department Care Team ([facility] Contact Info) Description 05/15/2025 9:50 AM EDT Routine [facility] [place] [facility] [address] [facility] [place] [id number] Deyanira Martinez PA [address] [facility] [address] [place], [facility]11 33 weeks gestation of ([facility]); Third trimester ([facility]); Gestational diabetes mellitus (GDM), antepartum, gestational diabetes method of control unspecified ([facility]) Social History Tobacco Use Types Packs/Day Years [...] Sign Reading Time Taken Comments Blood Pressure 140/78 05/15/2025 10:03 AM EDT Pulse - - Temperature - - Respiratory Rate - - Oxygen Saturation - - Inhaled Oxygen Concentration - - Weight 98.3 kg (216 lb 12.8 oz) 025 10:03 AM EDT Height - - Body Mass Index 36.08 12/01/2020 12:00 PM EDT documented in this encounter Progress Notes * SENDY Fan - 05/15/2025 9:50 AM EDT Reason for Appointment: Patient ID: Chente Gonzalez is a 29 y.o. female who presents for No chief complaint on file. Patient presents today for Return OB appointment. MEDICATIONS Current Outpatient Medications Medication Instructions Alcohol Swabs (Alcohol Prep Pad) 70 % pads 1 Pad, Topical, Daily, Use four times daily to check FSBS. Blood Glucose Monitoring Suppl ([employer] Glucometer) w/Device kit 1 kit, Does not apply, Daily, Use four times daily to check FSBS. In the morning prior to breakfast & 1 hour after each meal for a total of 4times daily. doxylamine (UNISOM) 25 mg, Oral, Nightly PRN Klor-Con 20 MEQ packet DISSOLVE 1 PACKET IN 4 OZ OF WATER OR OTHER BEVERAGE AND DRINK DAILY FOR 7 DAYS Multiple Vitamin (multivitamin) tablet 1 tablet, Daily ALLERGIES Allergies Allergen Reactions Penicillins Other Reaction(s): Unknown PROBLEMS Active Ambulatory Problems Diagnosis Date Noted No Active Ambulatory Problems Resolved Ambulatory Problems Diagnosis Date Noted No Resolved Ambulatory Problems No Additional Past Medical History HISTORY PAST MEDICAL HISTORY SOCIAL HISTORY History reviewed. No pertinent past medical history. Social History Tobacco Use Smoking status: Not [...] Exam Constitutional: Appearance: Normal appearance. She is normal weight. HENT: Head: Normocephalic. Cardiovascular: Rate and Rhythm: Normal rate. Pulses: Normal pulses. Pulmonary: Effort: Pulmonary effort is normal. Breath sounds: Normal breath sounds. Abdominal: Palpations: Abdomen is soft. Musculoskeletal: General: Normal range of motion. Neurological: General: No focal deficit present. Mental Status: She is alert and oriented to person, place, and time. Psychiatric: Mood and Affect: Mood normal. Behavior: Behavior normal. Thought Content: Thought content normal. Judgment: Judgment normal. Vitals and nursing note reviewed. Vitals: Estimated body mass index is 36.08 kg/m?? as calculated from the following: Height as of 12/01/20: 5' 5 . Weight as of this encounter: 216 lb 12.8 oz. BP: 140/78 Patient's last menstrual period was 10/04/2024 (approximate). ASSESSMENT & PLAN ICD-10-CM 1. 33 weeks gestation of ([facility]) Z3A.33 POCT urinalysis dipstick manually resulted 2. Third trimester ([facility]) Z34.93 POCT urinalysis dipstick manually resulted 3. Gestational diabetes mellitus (GDM), antepartum, gestational diabetes method of control unspecified ([facility]) O24.419 Return OB: Patient presents today for a routine obstetrics appointment. Patient is currently 33w2d . Patient states she is doing well but has complaints of being tired due to current . Patient has verbalizes frequent movement. labor precautions was discussed/given and patient was instructed to perform kick counts three times a day. Orders Placed This Encounter Procedures POCT urinalysis dipstick manually resulted Follow Up: Patient is to return to office in 1 week for routine OB appointment. Documented by SENDY Fan on behalf of: SENDY Fan documented in this encounter Plan of Treatment Upcoming Encounters Date Type Department Care Team (Late st Contact Info) Description 06/02/2025 11:20 AM EDT Routine [facility] [address] [place] [address] Nabila Avila, WILLIE [address] [facility] [place] [address] documented as of this encounter Procedures Procedure Name Priority Date/Time Associated Diagnosis Comments POCT URINALYSIS DIPSTICK Routine 05/15/2025 10:08 AM EDT 33 weeks gestation of ([facility]) Third trimester ([facility]) documented in this encounter Results * (ABNORMAL) POCT urinalysis dipstick manually resulted (05/15/2025 10:08 AM EDT) Color, UA Straw Clarity, UA Clear Glucose, UA Negative Negative - 2000(110) ++++ mg/dL Bilirubin, UA Negative Negative - 4(70) +++ mg/dL Ketones, UA Negative Negative - 160(16) ++++ mg/dL Spec Grav, UA 1.020 1 - 1.03 Blood, UA Positive Negative - 50 Derick/mcL Comment:1+ pH, UA 6.0 5 - 9 Protein, UA Positive Negative - 2000(20) ++++ mg/dL Comment:2+ Urobilinogen, UA 1.0 0.2 - 12 mg/dL Leukocytes, UA Negative Negative - 500+++ Julio/mcL Nitrite, UA Negative Negative - Positive Urine 05/15/2025 10:0 8 AM EDT Deyanira KABA POINT OF CARE TEST ENTER/EDIT OR DERABLES Final Result documented in this encounter Visit Diagnoses Diagnosis 33 weeks gestation of ([facility]) Third trimester ([facility]) state, incidental Gestational diabetes mellitus (GDM), antepartum, gestational diabetes method of control unspecified ([facility]) documented in this encounter
--- OUTSIDE RECORDS SUMMARY | 2025-05-20 11:08 | XMS_ITS | Clinical Summary ---
Author Organization [facility] Healthcare Address [address] [place] [address] Care Team Providers Care Investment Broker Name Role Phone Unavailable Primary Care Provider Unavailabl e Allergies Active Allergy Reactions Criticality Noted Date Comments Penicillins 12/23/2024 Other Reaction(s): Unknown Medications Multiple Vitamin (multivitamin) tablet Take 1 tablet by mouth Daily Active Klor-Con 20 MEQ packet DISSOLVE 1 PACKET IN 4 OZ OF WATER OR OTHER BEVERAGE AND DRINK DAILY FOR 7 DAYS 11/20/19 25 Active doxylamine (Unisom) 25 MG tabletIndicatio ns:Other insomnia Take 1 tablet (25 mg) by mouth as needed at bedtime for sleep 30 tablet 03/05/20 25 Active Additional Information Patient not taking.Reported on 05/15/2025 Alcohol Swabs (Alcohol Prep Pad) 70 % padsIndications :Gestational diabetes mellitus (GDM), antepartum, gestational diabetes method of control unspecified ([facility]),Maud sonja glucose tolerance test Apply 1 Pad topically Daily Use four times daily to check FSBS. 150 each 3 03/24/20 25 Active Blood Glucose Monitoring Suppl (D-Care Glucometer) w/Device kitIndications: Gestational diabetes mellitus (GDM), antepartum, gestational diabetes method of control unspecified ([facility]),Maud sonja glucose tolerance test 1 kit Daily Use four times daily to check FSBS. In the morning prior to breakfast & 1 hour after each meal for a total of 4times daily. 1 kit 03/24/20 25 026 Active metoclopramide (Reglan) 10 MG tablet TAKE 1 TABLET ORALLY EVERY 8 HOURS NEEDED FOR NAUSEA AND VOMITING 01/06/20 25 025 Discontinued promethazine (Phenergan) 25 MG tablet TAKE 1 TABLET BY MOUTH TWICE A DAY NEEDED FOR NAUSEA 12/09/19 025 Discontinued Lancets Ultra Thin miscIndications :Gestational diabetes mellitus (GDM), antepartum, gestational diabetes method of control unspecified ([facility]),Maud sonja glucose tolerance test 1 each by In Vitro route Daily Use to check FSBS four times daily 150 each 3 03/24/20 25 025 Glucose Blood (Blood Glucose Test) stripIndication s:Gestational diabetes mellitus (GDM), antepartum, gestational diabetes method of control unspecified ([facility]),Maud sonja glucose tolerance test 1 strip by In Vitro route Daily Use in the morning prior to breakfast, 1 hour after each meal for a total of 4times daily. 150 strip 3 03/24/20 025 Encounters Date Type Department Care Team Description 05/19/2025 Clinisync Result Encounter NOMS External Department Unsolicited Tyrell Adams DO 05/15/2025 9:50 AM EDT [place] [address] Deyanira Martinez PA 33 weeks gestation of ([facility]); Third trimester ([facility]); Gestational diabetes mellitus (GDM), antepartum, gestational diabetes method of control unspecified ([facility]) 05/15/2025 Bamboo flowsheet [place] [address] Deyanira Martinez PA 04/30/2025 3:00 PM EDT [place] [address] Tyrell Adams DO 31 weeks gestation of ([facility]); Third trimester ([facility]); Gestational diabetes mellitus (GDM), antepartum, gestational diabetes method of control unspecified ([facility]) 04/30/2025 2:30 PM EDT Ancillary Procedure [place] [address] Size of fetus inconsistent with dates in second trimester ([facility]) 04/17/2025 9:50 AM EDT Routine [facility] [place] [address] Deyanira Martinez PA Size of fetus inconsistent with dates in second trimester ([facility]) (Primary Dx); Third trimester ([facility]); 29 weeks gestation of ([facility]) 04/17/2025 Bamboo flowsheet [facility] [address] [place] [phone] Deyanira Martinez PA 04/03/2025 10:40 AM EDT Routine [facility] [address] [facility] [place] [phone] Tyrell Adams, Second trimester ([facility]); 27 weeks gestation of ([facility]) 04/03/2025 Bamboo flowsheet [facility] Kadie Zam[address] [place] [place] [phone] Tyrell Adams, DO 03/24/2025 Abstract [facility] [place] [address] Tyrell Adams, DO 03/24/2025 Telephone [facility] Kadie Zamora [place] [phone] Tyrell Adams, DO 03/21/2025 Clinisync Result Encounter NOMS External Department Unsolicited Tyrell Adams, DO 03/19/2025 9:30 AM EDT Ancillary Procedure [place] [address] Encounter for follow-up ultrasound of anatomy ([facility]) 03/11/2025 Orders [place] [address] Britt Christensen MA 03/06/2025 Telephone [place] [address] Kalyn Jacob MA 03/06/2025 Clinisync Result Encounter NOMS External Department Unsolicited Tyrell Adams, 03/05/2025 11:00 AM EDT [place] [address] Tyrell Adams, Second trimester ([facility]); 23 weeks gestation of ([facility]); Diabetes mellitus screening; Well woman exam with routine gynecological exam; Other insomnia 03/05/2025 Clinisync Result Encounter NOMS External Department Unsolicited Tyrell Adams, 03/05/2025 Abstract [place] [address] Kalyn Jacob [place] 03/05/2025 Bamboo flowsheet [facility] Kadie MORENOGYCarlos Alberto [address] [place] [place] [address] Tyrell Adams, 02/24/2025 Telephone [facility] Kadie MORENOGYCarlos Alberto [address] [place] [place] [address] Tyrell Adams, 02/19/2025 8:00 AM EDT Ancillary Procedure [place] [address] Second trimester ([facility]); Screening, , for anatomic survey ([facility]) from Last 3 Months Social History Tobacco [...] 12.8 oz) 025 10:03 AM EDT Height 165.1 cm (5' 5 ) 12/01/2020 12:0 0 PM EDT Body Mass Index 36.08 12/01/2020 12:00 PM EDT Plan of Treatment Upcoming Encounters Date Type Department Care Team (Late st Contact Info) Description 06/02/2025 11:20 AM EDT Routine [facility] Kadie [facility] [address] [place] [address] Nabila Avila, BULLET MAKER [address] [place] [address] Procedures Procedure Name Priority Date/Time Associated Diagnosis Comments MHPT FIBRINOGEN Routine 05/19/2025 11:00 AM EDT [facility] APTT Routine 05/19/2025 11:00 AM EDT SRMCOH PROTHROMBIN TIME INR W/O COUM Routine 05/19/2025 11:00 AM EDT [facility] ALT Routine 05/19/2025 11:00 AM EDT [facility] AST Routine 05/19/2025 11:00 AM EDT ALL URIC ACID Routine 05/19/2025 11:00 AM EDT TBH CREATININE Routine 05/19/2025 11:00 AM EDT ALL BUN Routine 05/19/2025 11:00 AM EDT ALL CBC WITH AUTO DIFF Routine 11:00 AM EDT US OB BPP W NON-STRESS 05/19/2025 10:54 AM EDT TBH URINE T PROTEIN CREAT RATIO Routine 05/19/2025 10:50 AM EDT POCT URINALYSIS DIPSTICK Routine 05/15/2025 10:08 AM EDT 33 weeks gestation of ([facility]) Third trimester ([facility]) POCT URINALYSIS DIPSTICK Routine 04/30/2025 3:11 PM EDT 31 weeks gestation of ([facility]) Third trimester ([facility]) US OB FOLLOW UP TRANSABDOMINAL APPROACH Routine 04/30/2025 2:49 PM EDT Size of fetus inconsistent with dates in second trimester ([facility]) POCT URINALYSIS DIPSTICK Routine 04/17/2025 10:45 AM EDT Third trimester ([facility]) 29 weeks gestation of ([facility]) POCT URINALYSIS DIPSTICK Routine 04/03/2025 10:59 AM EDT Second trimester ([facility]) 27 weeks gestation of ([facility]) CULTURE, URINE, ROUTINE Routine 03/31/2025 9:28 AM EDT Missed menses GLUCOSE TOLERANCE 3 HOUR Routine 03/21/2025 8:56 AM EDT US OB LIMITED 1+ FETUSES Routine 03/19/2025 10:09 AM EDT Encounter for follow-up ultrasound of anatomy ([facility]) ALL CBC WITH AUTO DIFF Routine 11:22 AM EDT GLUCOSE 1 HOUR Routine 03/06/2025 11:22 AM EDT POCT URINALYSIS DIPSTICK Routine 03/05/2025 11:17 AM EDT Second trimester ([facility]) IGP,APTIMA HPV,AGE GDLN Routine 03/05/2025 11:08 AM EDT PAP SMEAR Routine 03/05/2025 12:00 AM EDT US OB 14+ WEEKS ANATOMY SCAN Routine 02/19/2025 8:54 AM EDT Second trimester ([facility]) Screening, , for anatomic survey ([facility]) from Last 3 Months Results * TBH CREATININE (05/19/2025 11:00 AM EDT) CREATININE 0.65 0.55 - 1.02 mg/dL TBH TBH EGFR-AF CANADIAN >60 >=60 mL/min/1.7 3m 2 TBH TBH EGFR-NON AF CANADIAN >60 >=60 mL/min/1.7 3m 2 TBH 05/19/2025 11:0 0 AM EDT 05/19/2025 11:06 AM EDT Narrative CLINISYNC - 05/19/2025 11:31 AM EDT Prometheano DO CLINISYNC Final Result Performing Organization Address City/[facility]/ZIP Co de Phone Number [facility] * [facility] PROTHROMBIN TIME INR W/O COUM (05/19/2025 11:00 AM EDT) PROTHROMBIN TIME 9.8 9.0 - 11.6 sec TBH TBH INR <0.93 TBH Comment: DESIRED INR: 2.0-3.0 CONDITIONS NOT LISTED BELOW 2.5-3.5 FOR PROSTHETIC HEART VALVE REPLACEMENT 2.5-3.5 RECURRENT THROMBOSIS 05/19/2025 11:0 0 AM EDT 05/19/2025 11:06 AM EDT Narrative CLINISYNC - 05/19/2025 11:43 AM EDT Tyrell Angie DO CLINISYNC Final Result [facility] * (ABNORMAL) MHPT FIBRINOGEN (05/19/2025 11:00 AM EDT) FIBRINOGEN 552(H) 200 - 400 mg/dL TBH 05/19/2025 11:0 0 AM EDT 05/19/2025 11:06 AM EDT Narrative CLINISYNC - 05/19/2025 11:43 AM EDT Tyrell Angie DO CLINISYNC Final Result Performing Organization Address [facility]/ZIP Co de Phone Number CLINISYNC TB * [facility]CF AST (05/19/2025 11:00 AM EDT) ASPARTATE AMINO TRANSFERASE 15 15 - 37 U/L TBH 05/19/2025 11:0 0 AM EDT 05/19/2025 11:06 AM EDT Narrative CLINISYNC - 05/19/2025 11:31 AM EDT [facility] Angie DO CLINISYNC Final Result Performing Organization Address [facility] de Phone Number CLINISYNC TB * [facility]CF APTT (05/19/2025 11:00 AM EDT) PARTIAL THROMBOPLASTIN TIME 24.8 22.3 - 36.2 sec TBH 05/19/2025 11:0 0 AM EDT 05/19/2025 11:06 AM EDT Narrative CLINISYNC - 05/19/2025 11:43 AM EDT [facility] Angie DO CLINISYNC Final Result Performing Organization Address [facility] Co de Phone Number CLINISYNC TB * [facility]CF ALT (05/19/2025 11:00 AM EDT) ALANINE AMINOTRANSFERASE 25 14 - 59 U/L TBH 05/19/2025 11:0 0 AM EDT 05/19/2025 11:06 AM EDT Narrative CLINISYNC - 05/19/2025 11:31 AM EDT Tyrell Angie DO CLINISYNC Final Result [facility] * ALL URIC ACID (05/19/2025 11:00 AM EDT) Pathologist [facility] URIC ACID 4.4 2.6 - 6.0 mg/dL TB 05/19/2025 11:0 0 AM EDT 05/19/2025 11:06 AM EDT Narrative CLINISYNC - 05/19/2025 11:31 AM EDT [facility] CLINISYNC Final Result Performing Organization Address City/[facility]/ZIP Co de Phone Number [facility] * (ABNORMAL) ALL CBC WITH AUTO DIFF (05/19/2025 11:00 AM EDT) Only the most recent of2 resultswithin the time period is included. Pathologist [facility] TBH WBC 10.5 4.0 - 11.0 10 3/uL TBH TBH RBC 4.09(L) 4.20 - 5.40 10 6/uL TBH TBH HGB 12.7 12.0 - 16.0 g/dL TB TB HCT 35.6(L) 36.0 - 48.0 % TBH TBH MCV 87.0 81.0 - 99.0 fL TBH TBH MCH 31.1 26.7 - 34.0 pg TBH TBH MCHC 35.7(H) 29.9 - 35.2 g/dL TBH TBH RDW 11.9 11.0 - 15.0 % TBH TBH PLT 322 150 - 450 10 3/uL TBH TBH MPV 9.7 9.5 - 13.5 fL TBH NEUTROPHILS PERCENT AUTO 76.3(H) 43.0 - 75.0 % TBH LYMPHOCYTES PERCENT AUTO 14.9(L) 20.5 - 60.0 % TBH MONOCYTES PERCENT AUTO 6.8 1.7 - 12.0 % TBH TBH EO % 0.7(L) 0.9 - 7.0 % TBH BASOPHILS PERCENT AUTO 0.4 0.2 - 2.0 % TBH IMMATURE GRANULOCYTES PCT AUTO 0.9(H) 0.0 - 0.5 % TBH NEUTROPHILS ABSOLUTE AUTO 8.0(H) 1.4 - 6.5 10 3/uL TBH LYMPHOCYTES ABSOLUTE AUTO 1.6 1.2 - 3.8 10 3/uL TBH MONOCYTES ABSOLUTE AUTO 0.7 0.3 - 0.8 10 3/uL TBH TBH EO # 0.1 0.0 - 0.7 10 3/uL TBH BASOPHILS ABSOLUTE AUTO 0.0 0.0 - 0.1 10 3/uL TBH IMMATURE GRANULOCYTES ABS AUTO 0.09(H) 0.00 - 0.03 10 3/uL TBH 05/19/2025 11:0 0 AM EDT 05/19/2025 11:06 AM EDT Narrative CLINISYNC - 05/19/2025 11:15 AM EDT us Tyrell Angie DO CLINISYNC Final Result [facility] * ALL BUN (05/19/2025 11:00 AM EDT) BLOOD UREA NITROGEN 7.0 7.0 - 18.0 mg/dL TBH 05/19/2025 11:0 0 AM EDT 05/19/2025 11:06 AM EDT Narrative CLINISYNC - 05/19/2025 11:31 AM EDT us Tyrell Angie DO CLINISYNC Final Result [facility] * US OB BPP W NON-STRESS (05/19/2025 10:54 AM EDT) Anatomical Region Laterality Modality Other 05/19/2025 10:5 4 AM EDT Narrative 05/19/2025 10:56 AM EDT The [address] [address] Ultrasound Report Signed Patient: CHENTE GONZALEZ MR#: [id number] : 1995 Acct:[id number] Age/Sex: 29 / F ADM Date: 05/19/25 Loc: [facility] 250-[address]: Tyrell Adams D.O. Ordering Physician: Tyrell Adams D.O. Date of Service: 05/19/25 Procedure(s): US OB BPP w non-stress Accession Number(s): [id number] cc: Tyrell Adams D.O.; Physician,Non-Staff M.Tony [place] [address] Patient Name: CHENTE GONZALEZ MRN: [facility]:[id number] date: 1995 Sex: F Assigned Patient Location: [facility] Current Patient Location: [facility] Accession/Order Number: [id number] Exam Date: 05/19/2025 10:15 Report Date: 05/19/2025 10:54 At the request of: TYRELL ADAMS DO Procedure: US OB BPP w [...] Mae M.D. 05/19/2025 10:54 AM Dictation Location: [facility]Every[facility] Electronically authenticated by: [id number] Y Date: 05/19/2025 10:54 Dictated By: Rahel Mae M.D. Signed By: 05/19/25 1056 DD/ 1054 TD/TT: Electrical Manufacturing Engineer: Procedure Note Radiology, Radiologist, - 05/19/2025 [place] [address] Ultrasound Report Signed Patient: CHENTE GONZALEZ NMR#: [id number] : 1995Acct:[id number] Age/Sex: 29 / FADM Date: 05/19/25 Loc: [facility] 250-[address]: Tyrell Adams D.O. Ordering Physician: Tyrell Adams D.O. Date of Service: 05/19/25 Procedure(s): US OB BPP w non-stress Accession Number(s): [id number] cc: Tyrell Adams D.O.; Physician,Non-Staff Aljeandra The [place] [address] Patient Name: CHENTE GONZALEZ MRN: [facility]:[id number] date: 1995 Sex: F Assigned Patient Location: [facility] Current Patient Location: [facility] Accession/Order Number: [id number] Exam Date: 05/19/2025 10:15 Report Date: 05/19/2025 10:54 At the request of: TYRELL ADAMS DO Procedure: US OB BPP w non-stress BIOPHYSICAL PROFILE: CLINICAL INFORMATION: Gestational diabetes mellitus COMPARISON: None There is a single live intrauterine gestation in cephalic presentation.The reported gestational age is 33 weeks 6 days. The heart ratemeasures 144 beats per minute. FINDINGS: TONE: 1 or more episodes of activity extension and flexion of extremity or opening and closing of the hand [Y] 2/2 GROSS BODY MOVEMENTS: 3 or more discrete body or limb movements [Y] 2/2 BREATHING MOVEMENTS: 1 or more episodes of breathing lastingat least 30 seconds [Y] 2/2 DOYLE: A single deepest vertical pocket of amniotic fluid greater than 2 cm [Y] 2/2 DOYLE: 7.7 cm. This is below the 5th percentile. Total score: 8/8 US/US OB BPP w non-stress IMPRESSION: NORMAL BIOPHYSICAL PROFILE. OLIGOHYDRAMNIOS. Impression dictated by: Rahel Mae M.D. 05/19/2025 10:54 AM Dictation Location: [place] [address] Electronically authenticated by: [id number] Y Date: 0:54 Dictated By: Rahel Mae M.D. Signed By:05/19/25 1056 DD/ 1054 TD/TT: Electrical Manufacturing Engineer: us Tyrell Angie DO CLINISYNC IMAGING Final Result * (ABNORMAL) TBH URINE T PROTEIN CREAT RATIO (05/19/2025 10:50 AM EDT) TOTAL PROTEIN URINE RANDOM 35.9(H) <=11.9 mg/dL TBH CREATININE URINE RANDOM 50.11 20.00 - 300.00 mg/dL TBH PROTEIN CREATININE RATIO URINE 0.72 TBH 05/19/2025 10:5 0 AM EDT 05/19/2025 11:06 AM EDT Narrative CLINISYNC - 05/19/2025 11:55 AM EDT Tyrell Angie DO CLINISYNC Final Result [facility] * (ABNORMAL) POCT urinalysis dipstick manually resulted (05/15/2025 10:08 AM EDT) Only the most recent of5 resultswithin the time period is included. Color, UA Straw Clarity, UA Clear Glucose, [...] OR DERABLES Final Result * US OB follow up transabdominal approach (04/30/2025 2:49 PM EDT) Anatomical Region Laterality Modality Body Ultrasound 04/30/2025 3:45 PM EDT Impressions 05/01/2025 7:33 AM EDT Single, live intrauterine , current sonographic age of 31 weeks and 5 days, with an estimated date of delivery of June 27, 2025 * Estimated Weight (g) by Percentile is based upon an accurate estimated age based on last menstrual period. TRANSCRIBED BY: ELECTRONICALLY SIGNED BY: Ramana Lechuga MD Narrative 05/01/2025 7:33 AM EDT A single, live intrauterine is present with [...] 29, 2025 and the weight was 68.8% Procedure Note Ramana Lechuga MD - 05/01/2025 A single, live intrauterine is present with normal cardiacrate of 161 beats per minute. Normal activity and amniotic fluidvolume. Amniotic fluid index is 16.0 cm. Morphology is grossly normal.The current sonographic age is 31 weeks and 5 days, based on thefollowing measurements: BPD 7.9 cm (31 weeks, 4 days) Head Circumference 29.2cm (32 weeks, 2 days) Abdominal Circumference 27.2cm (31 weeks, 2 days) Femur Length 6.1cm (31 weeks, 5 days) Presentation Cephalic Weight (g) by Percentile 50.6 % * These measurements result in an estimated date of delivery of May. The current estimated weight is 1783 grams (3 pound, 15ounces). Comparison made with prior examination of February 19 2025 delivery at thattime was June 29, 2025 and the weight was 68.8% IMPRESSION: Single, live intrauterine , current sonographic age of 31 weeksand 5 days, with an estimated date of delivery of June 27, 2025 * Estimated Weight (g) by Percentile is based upon an accurateestimated age based on last menstrual period. TRANSCRIBED BY: ELECTRONICALLY SIGNED BY: Ramana Lechuga MD Deyanira KABA IMG OB US PROCEDURES Final Resul t * Urine culture (03/31/2025 9:28 AM EDT) Urine Urine specimen obtained by clean catch procedure / Unknown Tyrell Angie DO LAB MICROBIOLOGY - GENERAL ORDER LARRY Final Result EXTERNAL LAB * (ABNORMAL) GLUCOSE TOLERANCE 3 HOUR (03/21/2025 8:56 AM EDT) GLUCOSE TOLERANCE 3 HOUR (H) mg/dL TBH Comment: GLU FAST 86 (<95) Col: 03/21/25 0856 GLU 1HR 181H (<180) Col: 03/21/25 1002 GLU 2HR 162H (<155) Col: 03/21/25 1102 GLU 3HR 75 (<140) Col: 03/21/25 1202 03/21/2025 8:56 AM EDT 03/21/2025 9:09 AM EDT Narrative CLINISYNC - 03/21/2025 12:54 PM EDT Tyrell Angie DO LAB BLOOD ORDERABLES Final Resul t CLINISYNC TBH * US OB limited 1+ fetuses (03/19/2025 [...] heart. Interpreted by: Electronically signed by ALDEN CALLOWAY II, MD, PHD at 21-Mar-2025 08:31:03 AM [facility] Procedure Note Alden Calloway MD - 03/21/2025 EXAM: US OB LIMITED [...] heart. Interpreted by: Electronically signed by ALDEN CALLOWAY II, MD, PHD [id number] 08:31:03 AM [facility] us Nabila Avila BULLET MAKER IMG OB US PROCEDURES Final Re sult * (ABNORMAL) GLUCOSE 1 HOUR (03/06/2025 11:22 AM EDT) GLUCOSE 1 HOUR 141(H) <130 mg/dL [facility] 03/06/2025 11:2 2 AM EDT 03/06/2025 11:24 AM EDT Narrative ROGER - 03/06/2025 11:47 AM EDT us Tyrell Parikho DO LAB BLOOD ORDERABLES Final Resul t ROGER [facility] * IGP,APTIMA HPV,AGE GDLN (03/05/2025 11:08 AM EDT) AGE GDLN ACOG TESTING Note . [facility] Comment: TESTS RESULT FLAG UNITS REF RANGE LAB Clinician Provided Cytology Information Source.............[facility] Other.............. No. of containers..01 ThinPrep Vial Age Algo ACOG Mandie... - 01 FLAG LEGEND: L-Low Normal,H-High Normal,LL-Alert Low,HH-Alert High <-Panic Low,>-Panic High,A-Abnormal,AA-Critical Abnormal Performed at: 01 =G [facility] [place] [address] Mckenna Polanco MD, IGP, RFX APTIMA HPV ASCU Note . [facility] Comment: TESTS RESULT FLAG UNITS REF RANGE LAB DIAGNOSIS: 02 NEGATIVE FOR INTRAEPITHELIAL LESION OR MALIGNANCY. Specimen adequacy: 02 Satisfactory for evaluation. No endocervical component is identified. Performed by: Andres Pineda, Manager Garage ([facility]) . 02 Note: Note 02 [...] High,A-Abnormal,AA-Critical Abnormal Performed at: 02 [address] [facility] [address] [place] [address] Mckenna Polanco MD, Performed at: =G - [facility] [address] [id number] Financial Reporting Specialist: Mckenna Polanco MD, Phone: [phone] Performed at: [facility] [id number] Financial Reporting Specialist: Mckenna Polanco MD, Phone: [phone] 03/05/2025 11:0 8 AM EDT 03/05/2025 3:05 PM EDT Narrative JENNIFERLIBANNC - 03/07/2025 6:13 PM EDT SPATUL[facility]OCERV[facility] us Tyrell Angie DO LAB BLOOD ORDERABLES Final Resul t CLINISYNC TBH * Pap Smear (03/05/2025 12:00 AM EDT) Swab Cervical swab / Unknown us Tyrell Angie DO LAB CYTOLOGY ORDERABLES Final Re sult Performing Organization Address City/State/[facility] Co de Phone Number EXTERNAL LAB * [...] recommended. Interpreted by: Electronically signed by ALDEN CALLOWAY II, MD, PHD at 20-Feb-2025 09:47:05 AM [facility] Procedure Note Alden Calloway MD - 02/20/2025 EXAM: US OB 14+ [...] recommended. Interpreted by: Electronically signed by ALDEN CALLOWAY II, MD, PHD 09:47:05 AM [facility] us Nabila Avila BULLET MAKER IMG OB US PROCEDURES Final Re sult from Last 3 Months Insurance [employer]
--- OUTSIDE RECORDS SUMMARY | 2025-05-20 11:08 | XMS_ITS | Encounter Summary ---
Author Organization [facility] Address [address] [facility] [place] [address] Care Team Providers Care Concierge Receptionist Name Role Phone Unavailable Primary Care Provider Unavailabl e Encounter Details Date Type Department Care Team (Late Contact Info) Description 03/11/2025 Orders Only [facility] [address] [facility] [place] [place] [address] Britt Christensen MA [address] [place] [address] Social History Tobacco Use Types Packs/Day Years [...] Department Care Team (Late Contact Info) Description 06/02/2025 11:20 AM EDT Routine [facility] Kadie [facility] [address] [place] [place] [address] Nabila Avila, WILLIE [address] [place] [address] documented as of this encounter Procedures [...]
--- OUTSIDE RECORDS SUMMARY | 2025-05-20 11:08 | XMS_ITS | Encounter Summary ---
Author Organization [facility] Address [address] [facility] [place] [address] Care Team Providers Care Exceptional Children Teacher Name Role Phone Unavailable Primary Care Provider Unavailabl e Encounter Details Date Type Department Care Team (Late st Contact Info) Description 03/24/2025 Abstract NOM[facility]erny VARGAS [address] [place] [address] Jaspreet Adams DO [address] [place], [facility] Social History Tobacco Use Types Packs/Day [...] Info) Description 06/02/2025 11:20 AM EDT Routine MATTIE VARGAS [address] [place] [address] Nabila Avila NP [address] [place] [address] documented as of this encounter Visit Diagnoses Not on filedocumented in this encounter
--- OUTSIDE RECORDS SUMMARY | 2025-05-20 11:08 | XMS_ITS | Encounter Summary ---
Author Organization [facility] Address [address] [facility] [place] [address] Care Team Providers Care Sugar Cane Planter Machine Operator Name Role Phone Unavailable Primary Care Provider Unavailabl e Encounter Details Date Type Department Care Team (Late st Contact Info) Description 01/31/2025 Abstract NOMFerny VARGAS [address] [place], [place] [address] Jaspreet Adams DO [address], [facility]11 Social History Tobacco Use Types Packs/Day [...] EDT Routine MATTIE VARGAS [address] [place], [place] [address] Nabila Avila NP [address] [place] [address] documented as of this encounter Visit Diagnoses Not on filedocumented in this encounter
--- OUTSIDE RECORDS SUMMARY | 2025-05-20 11:08 | XMS_ITS | Encounter Summary ---
Author Organization [facility] Address [id number] [address] [place] [address] Care Team Providers Care Mash Tub Cooker Operator Name Role Phone Unavailable Primary Care Provider Unavailabl e Encounter Details Date Type Department Care Team (Late st Contact Info) Description 03/28/2025 Orders Only Maternal- Medicine at [facility] [address] [place] [phone] Domenica Ahmadi, ELECTRICAL MAINTENANCE MECHANIC Social History Tobacco Use Types Packs/Day Years Used Date Smoking Tobacco: Never Assessed Estimated Date of Delivery Comme nts Yes 07/01/2025 Based on Ultraso und Sex and Gender Information Value Date Recorded Sex Assigned at Not on file Legal Sex Female 9:06 AM EDT Gender Identity Not on file Sexual Orientation Not on file documented as of this encounter Plan of Treatment Not on file documented as of this encounter Procedures Procedure Name Priority Date/Time Associated Diagnosis Comments UNLISTED LAB TEST Routine 02/11/2025 9:59 AM EDT documented in this encounter Results * Unlisted Lab Test (02/11/2025 9:59 AM EDT) us Jaspreet Adams DO LAB BLOOD ORDERABLES Final Resu lt MANUALLY TRANSCRIBED RESULTS documented in this encounter Visit Diagnoses Not on filedocumented in this encounter
--- OUTSIDE RECORDS SUMMARY | 2025-05-20 11:08 | XMS_ITS | Encounter Summary ---
Author Organization [facility] Address [address] [facility] [place] [address] Care Team Providers Care Glue Spreading Machine Operator Name Role Phone Unavailable Primary Care Provider Unavailabl e Encounter Details Date Type Department Care Team (Late Contact Info) Description 12/12/2024 Abstract MATTIE VARGAS [address] [facility] [place] [address] Jaspreet Adams DO [address] [facility] [address] [place], [place] [address] Social History Tobacco Use Types Packs/Day Years [...] 11:20 AM EDT Routine MATTIE VARGAS [address] [facility] [place] [place] [address] Nabila Avila, WILLIE [address] [place] [address] documented as of this encounter Visit Diagnoses Not on filedocumented in this encounter
--- OUTSIDE RECORDS SUMMARY | 2025-05-20 11:08 | XMS_ITS | Encounter Summary ---
Author Organization [facility] Address [address] [facility] [place] [address] Care Team Providers Care Assistant News Director Name Role Phone Unavailable Primary Care Provider Unavailabl e Encounter Details Date Type Department Care Team (Late st Contact Info) Description 03/05/2025 Abstract NOMFerny VARGAS [address] [place] [address] Kalyn Jacob MA Social History Tobacco [...] VARGAS [address] [place] [address] Nabila Avila, WILLIE [address] [place] [address] documented as of this encounter Visit Diagnoses Not on filedocumented in this encounter
--- OUTSIDE RECORDS SUMMARY | 2025-05-20 11:08 | XMS_ITS | Clinical Summary ---
Author Organization [facility] tem Address [id number] [address] [place] [address] Care Team Providers Care Loader Helper Name Role Phone Unavailable Primary Care Provider Unavailabl e Encounters Date Type Department Care Team Description 03/28/2025 Abstract Maternal- Medicine at [facility] [address] [place] [phone] External, Scanning Provider 03/28/2025 Orders Only Maternal- Medicine at [facility] [address] [place] [phone] Domenica Ahmadi, ELECTRICIAN WIRING from Last 3 Months Social History Tobacco Use Types Packs/Day Years Used Date Smoking Tobacco: Never Assessed Estimated Date of Delivery Comme nts Yes 07/01/2025 Based on Ultraso und Sex and Gender Information Value Date Recorded Sex Assigned at Not on file Legal Sex Female 9:06 AM EDT Gender Identity Not on file Sexual Orientation Not on file Plan of Treatment Health Maintenance Due Date Last Done Comments Depression Screening 2009 Tobacco Screening 2009 Adult BMI Screening 12/07/2015 DTaP,Tdap and Td Vaccines (1 - Tdap) 2016 Pap Smear 2018 Influenza Vaccine 04/28/2025 Medical Devices Not on file Procedures Procedure Name Priority Date/Time Associated Diagnosis Comments GLUCOSE TOLERANCE, 1 HOUR Routine 03/06/2025 from Last 3 Months Results * Glucose tolerance, 1 hour (03/06/2025) Glucose Tolerance Test 1 Hour 141 MANUALLY TRANSCRIBED RESULTS Blood Venous blood / Unknown us Not In System Ref Prov LAB BLOOD ORDERABLES Janna west Result MANUALLY TRANSCRIBED RESULTS from Last 3 Months
--- OUTSIDE RECORDS SUMMARY | 2025-05-20 11:08 | XMS_ITS | Encounter Summary ---
Author Organization [facility] Address [address] [place] [address] Care Team Providers Care Awning Erector Name Role Phone Unavailable Primary Care Provider Unavailabl e Encounter Details Date Type Department Care Team (Late st Contact Info) Description 05/19/2025 Clinisync Result Encounter NOMS External Department Unsolicited Tyrell Adams DO [address] [place] [place] [id number] Social History Tobacco Use Types Packs/Day Years [...] Info) Description 06/02/2025 11:20 AM EDT Routine [facility]erny [place] [facility] [address] [facility] [place] [address] Nabila Avila, WILLIE [address] [place] [address] documented as of this encounter Procedures Procedure Name Priority Date/Time Associated Diagnosis Comments TBH CREATININE Routine 05/19/2025 11:00 AM EDT SRMCOH PROTHROMBIN TIME INR W/O COUM Routine 05/19/2025 11:00 AM EDT MHPT FIBRINOGEN Routine 05/19/2025 11:00 AM EDT [facility] AST Routine 05/19/2025 11:00 AM EDT [facility] APTT Routine 05/19/2025 11:00 AM EDT [facility] ALT Routine 05/19/2025 11:00 AM EDT ALL URIC ACID Routine 05/19/2025 11:00 AM EDT ALL CBC WITH AUTO DIFF Routine 05/19/2025 11:00 AM EDT ALL BUN Routine 05/19/2025 11:00 AM EDT US OB BPP W NON-STRESS 05/19/2025 10:54 AM EDT TBH URINE T PROTEIN CREAT RATIO Routine 05/19/2025 10:50 AM EDT documented in this encounter Results * (ABNORMAL) MHPT FIBRINOGEN (05/19/2025 11:00 AM EDT) FIBRINOGEN 552(H) 200 - 400 mg/dL TBH 05/19/2025 11:0 0 AM EDT 05/19/2025 11:06 AM EDT Narrative CLINISYNC - 05/19/2025 11:43 AM EDT us Tyrell Angie DO CLINISYNC Final Result CLINISYNC TB * [facility]CF APTT (05/19/2025 11:00 AM EDT) PARTIAL THROMBOPLASTIN TIME 24.8 22.3 - 36.2 sec TBH 05/19/2025 11:0 0 AM EDT 05/19/2025 11:06 AM EDT Narrative CLINISYNC - 05/19/2025 11:43 AM EDT Tyrell Parikho DO BULLNC Final Result Performing Organization Address [facility]/ZIP Co de Phone Number [facility] * SRMCOH PROTHROMBIN TIME INR W/O COUM (05/19/2025 11:00 AM EDT) PROTHROMBIN TIME 9.8 9.0 - 11.6 sec TBH TBH INR <0.93 TBH Comment: DESIRED INR: 2.0-3.0 CONDITIONS NOT LISTED BELOW 2.5-3.5 FOR PROSTHETIC HEART VALVE REPLACEMENT 2.5-3.5 RECURRENT THROMBOSIS 05/19/2025 11:0 0 AM EDT 05/19/2025 11:06 AM EDT Narrative CLINISYNC - 05/19/2025 11:43 AM EDT [facility]UR[facility]T Final Result Performing Organization Address [facility]/ZIP Co de Phone Number [facility] ALT (05/19/2025 11:00 AM EDT) ALANINE AMINOTRANSFERASE 25 14 - 59 U/L TB 05/19/2025 11:0 0 AM EDT 05/19/2025 11:06 AM EDT Narrative CLINISYNC - 05/19/2025 11:31 AM EDT Tyrell BURNETT Final Result Performing Organization Address [facility]/ZIP Co de Phone Number [facility] * [facility] AST (05/19/2025 11:00 AM EDT) ASPARTATE AMINO TRANSFERASE 15 15 - 37 U/L TB 05/19/2025 11:0 0 AM EDT 05/19/2025 11:06 AM EDT Narrative CLINISYNC - 05/19/2025 11:31 AM EDT us Tyrell Angie DO CLINISYNC Final Result [facility]INIS[facility]NC [facility] * ALL URIC ACID (05/19/2025 11:00 AM EDT) URIC ACID 4.4 2.6 - 6.0 mg/dL TB 05/19/2025 11:0 0 AM EDT 05/19/2025 11:06 AM EDT Narrative CLINISYNC - 05/19/2025 11:31 AM EDT us Tyrell Angie DO CLINISYNC Final Result Performing Organization Address [facility] Co de Phone Number CLINISYNC [facility] * TB CREATININE (05/19/2025 11:00 AM EDT) CREATININE 0.65 0.55 - 1.02 mg/dL TB TB EGFR-AF MICRONESIAN >60 >=60 mL/min/1.7 3m 2 TBH TBH EGFR-NON AF MICRONESIAN >60 >=60 mL/min/1.7 3m 2 TBH 05/19/2025 11:0 0 AM EDT 05/19/2025 11:06 AM EDT Narrative CLINISYNC - 05/19/2025 11:31 AM EDT us Tyrell Angie DO CLINISYNC Final Result Performing Organization Address City/[facility]/ZIP Co de Phone Number CLINISYNC [facility] * ALL BUN (05/19/2025 11:00 AM EDT) BLOOD UREA NITROGEN 7.0 7.0 - 18.0 mg/dL TB 05/19/2025 11:0 0 AM EDT 05/19/2025 11:06 AM EDT Narrative CLINISYNC - 05/19/2025 11:31 AM EDT us Tyrell Angie DO CLINISYNC Final Result CLINISYNC TBH * (ABNORMAL) ALL CBC WITH AUTO DIFF (05/19/2025 11:00 AM EDT) [facility] TB WBC 10.5 4.0 - 11.0 10 3/uL TBH TBH RBC 4.09(L) 4.20 - 5.40 10 6/uL TBH TBH HGB 12.7 12.0 - 16.0 g/dL TBH TBH HCT 35.6(L) 36.0 - 48.0 % TBH [...] Narrative CLINISYNC - 05/19/2025 11:15 AM EDT Tyrell Adams DO CLINISYJAMIE Final Result MLNC [facility] * US OB BPP W NON-STRESS (05/19/2025 10:54 AM EDT) Anatomical Region Laterality Modality Other 05/19/2025 10:5 4 AM EDT Narrative 05/19/2025 10:56 [place] [address] Ultrasound Report Signed Patient: CHENTE GONZALEZ MR#: [id number] : 1995 Acct:[id number] Age/Sex: 29 / F ADM Date: 05/19/25 Loc: [facility] 250-[address]: Tyrell Adams D.O. Ordering Physician: Tyrell Adams D.O. Date of Service: 05/19/25 Procedure(s): US OB BPP w non-stress Accession Number(s): [id number] cc: Tyrell Adams D.O.; Physician,Non-Staff MRu The [place] [address] Patient Name: CHENTE GONZALEZ MRN: [id number] date: 1995 Sex: F Assigned Patient Location: [facility] Current Patient Location: [facility] Accession/Order Number: [id number] Exam Date: 05/19/2025 10:15 Report Date: 05/19/2025 [...] Mae M.D. 05/19/2025 10:54 AM Dictation Location: [employer] Electronically authenticated by: [id number] Y Date: 05/19/2025 10:54 Dictated By: Rahel Mae M.D. Signed By: 05/19/25 1056 DD/ 1054 TD/TT: Printing Table Hand: Procedure Note Radiology, Radiologist, MD - 05/19/2025 [place] [address] Ultrasound Report Signed Patient: CHENTE GONZALEZ NMR#: [id number] : 1995Acct:[id number] Age/Sex: 29 / FADM Date: 05/19/25 Loc: [facility] 250-[address]: Tyrell Adams D.O. Ordering Physician: Tyrell Adams D.O. Date of Service: 05/19/25 Procedure(s): US OB BPP w non-stress Accession Number(s): [id number] cc: Tyrell Adams D.O.; Physician,Non-Staff Alejandra The [place] [id number] Patient Name: CHENTE GONZALEZ MRN: [id number] date: 1995 Sex: F Assigned Patient Location: [facility] Current Patient Location: [facility] Accession/Order Number: [id number] Exam Date: 05/19/2025 10:15 Report Date: 05/19/2025 [...] is below the 5th percentile. Total score: 04/04 US/US OB BPP w non-stress IMPRESSION: NORMAL BIOPHYSICAL PROFILE. OLIGOHYDRAMNIOS. Impression dictated by: Rahel Mae M.D. 05/19/2025 10:54 AM Dictation Location: [place] [address] Electronically authenticated by: [id number] Y Date: 0:54 Dictated By: Rahel Mae M.D. Signed By:05/19/25 1056 DD/ 1054 TD/TT: Printing Table Hand: Tyrell Angie DO CLINISYNC IMAGING Final Result [...] EDT Tyrell Angie DO CLINISYNC Final Result CLINISYNC TB documented in this encounter Visit Diagnoses Not on filedocumented in this encounter
--- OUTSIDE RECORDS SUMMARY | 2025-05-20 11:08 | XMS_ITS | Encounter Summary ---
Author Organization [facility] Address [address] [facility] [place] [address] Care Team Providers Care Lead Burner Apprentice Name Role Phone Unavailable Primary Care Provider Unavailabl e Encounter Details Date Type Department Care Team (Late Contact Info) Description 05/15/2025 Bamboo flowsheet NOMFerny VARGAS [address] [place] [place] [address] Deyanira Martinez PA [address] [place], [facility]11 Social History Tobacco Use Types [...] 06/02/2025 11:20 AM EDT Routine NOMS Kadie VARGAS [address] [place] [address] Nabila Avila NP [address] [place] [address] documented as of this encounter Visit Diagnoses Not on filedocumented in this encounter
--- NOTE | 2025-05-20 11:09 | US_ITS ---
[address] [address] Patient Name: JORGE ALBERTO LUNA MRN: [id number] date: 1995 Sex: F Assigned Patient Location: [facility] Current Patient Location: Accession/Order Number: [id number] Exam Date: 05/20/2025 11:10 Report Date: 05/20/2025 11:33 At the request of: TYRELL THAPA DO Procedure: US OB amniotic fluid vol ULTRASOUND OB AMNIOTIC FLUID VOLUME CLINICAL DATA: Oligohydramnios COMPARISON: BPP 05/17/2025 There is a single live intrauterine gestation in cephalic presentation. The reported gestational age is 34 weeks 0 days. There is cardiac and somatic activity with heart rate of 142 bpm. The amniotic fluid volume on today's study measures 11.2 cm. This is in low-normal range. The largest pocket is 4.2 cm. US/US OB amniotic fluid vol IMPRESSION: LOW NORMAL AMNIOTIC FLUID VOLUME. Impression dictated by: Rahel Mae M.D. 05/20/2025 11:33 AM Dictation Location: [employer] Electronically authenticated by: [id number] Y Date: 05/20/2025 11:33
--- OUTSIDE RECORDS SUMMARY | 2025-05-20 11:11 | XMS_ITS | CCD ---
Author Organization [facility] Care Team Providers Care Director Of Government Sales Name Role Phone ADEOLA COHEN Admitting Unavailable ADEOLA COHEN Attending Unavailable MISC, DR BUTLER Primary Care Unavailable ADEOLA COHEN Consulting Unavailable TAMRA, DR BUTLER Primary Care Unavailable ADRIAN CHRISTIANSEN Admitting Unavailable ADRIAN CHRISTIANSEN Attending Unavailable ARIVND, DR MACK Ansari Consulting Unavailable JOSE, DR SHERMAN Consulting Unavailable ADRIAN CHRISTIANSEN Consulting Unavailable NO FAMILY, PHYSICIAN Primary Care Provider Unava DO Denny Patrick Emergency Provider [phone] Unavailable Primary Care Provider UnavailCristal Swenson Attending Unavailable Cristal Miguel Admitting Unavailable Cristal Miguel DO Attending Provider Unavailable Primary Care Provider UnavailJASPREET Tuttle Attending Unavailable JASPREET ADMAS Referring Unavailable WILLY AVILA Attending Unavailable WILLY AVILA Referring Unavailable ANGIEJASPREET FELIX Attending Unavailable ANGIE, JASPREET Attending Unavailable DEYANIRA MCCLOUD Attending Unavailable DEYANIRA MCCLOUD Referring Unavailable ANGIEJASPREET FELIX Attending Unavailable DEYANIRA MCCLOUD Attending Unavailable Allergies Allergy Classification Reported Allergen(s) Allergy Type Date of Onset Reaction(s) Facility (1 source) Penicillins Drug allergy (disorder) 09-28-2014 [facility] Repository (20 sources) Penicillins Drug Allergy 12-23-2024 [facility] (1 source) Penicillins Drug allergy (disorder) 02-22-2022 [facility] Repository Medications Current Medications Medication Drug Class(es) Dates Sig (Normalized) Sig (Original) Blood Glucose Monitoring Suppl (D-Care Glucometer) w/Device kit (12 sources) Start: 03-24-2025 End: 03-24-2026 Blood Glucose Monitoring Suppl (D-Care Glucometer) w/Device kit Indications: Gestational diabetes mellitus (GDM), antepartum, gestational diabetes method of control unspecified ([facility]) , Elevated glucose tolerance test 1 kit [...] antepartum, gestational diabetes method of control unspecified ([facility]) , Elevated glucose tolerance test Apply 1 [...] 25 mg supposito ry Discontinued 25 MG HI Q6H as needed for nausea and vomiting [...] Drug Class(es) Dates Sig (Normalized) Sig (Original) [id number] 200 actuat albuterol 0.09 mg/actuat metered dose [...] D2) 1,250 mcg (50,000 unit) Capsule Discontinued 52187 UNIT PO every week 4 December 27, [...] OB BPP W NON-STRESS on 05-19-2025 [place] [address] Ultrasound Report Signed Patient: CHENTE GONZALEZ MR#: [id number] : 1995 Acct:[id number] Age/Sex: 29 / F ADM Date: 05/19/25 Loc: [facility] 250-[address]: Jaspreet Adams D.O. Ordering Physician: Jaspreet Adams D.O. Date of Service: 05/19/25 Procedure(s): OB BPP w non-stress Accession Number(s): [id number] cc: Jaspreet Adams D.O.; Physician,Non-Staff M.Tony The [place] [address] Patient Name: CHENTE GONZALEZ MRN: [facility]:[id number] date: 1995 Sex: F Assigned Patient Location: [facility] Current Patient Location: [facility] Accession/Order Number: [id number] Exam Date: 05/19/2025 10:15 Report Date: 05/19/2025 [...] Mae M.D. 05/19/2025 10:54 AM Dictation Location: [facility] Electronically authenticated by: [id number] Y Date: 05/19/2025 10:54 Dictated By: Rahel Mae M.D. Signed By: 05/19/25 1056 DD/ 1054 TD/TT: Gear Tooth Lapping Machine Operator: [facility] Radiology, Radiologi MD guilherme - 05/19/2025 [place] [address] Ultrasound Report Signed Patient: CHENTE GONZALEZ MR#: [id number] : 1995 Acct:[id number] Age/Sex: 29 / F ADM Date: 05/19/25 Loc: [facility] 250-[address]: Jaspreet Adams D.O. Ordering Physician: Jaspreet Adams D.O. Date of Service: 05/19/25 Procedure(s): US OB BPP w non-stress Accession Number(s): [id number] cc: Jaspreet Adams D.O.; Physician,Non-Staff Alejandra The [address] [address] Patient Name: CHENTE GONZALEZ MRN: [facility]:[id number] date: 1995 Sex: F Assigned Patient Location: [facility] Current Patient Location: [facility] Accession/Order Number: [id number] Exam Date: 05/19/2025 10:15 Report Date: 05/19/2025 [...] Mae M.D. 05/19/2025 10:54 AM Dictation Location: [employer] Electronically authenticated by: [id number] Y Date: 05/19/2025 10:54 Dictated By: Rahel Mae M.D. Signed By: 05/19/25 1056 DD/ 1054 TD/TT: Gear Tooth Lapping Machine Operator: [facility] Radiology Study observation (narrative) [facility] US OB BPP W NON-STRESS Ordered By: Radiologist Radiology on 05-19-2025 [facility] Work Phone: Urinalysis macro (dipstick) panel (U)on 05-15-2025 Bilirubin, UA Negative Negative - 4(70) +++ mg/dL [facility] Blood, UA Positive Negative - 50 Derick/mcL [facility] Comment on above: 1+ Clarity, UA Clear [facility] Color, UA Straw [facility] Glucose, UA Negative Negative - 2000(110) ++++ mg/dL [facility] Interpretation and review of laboratory results Abnormal [facility] Ketones, UA Negative Negative - 160(16) ++++ mg/dL [facility] Leukocytes, UA Negative Negative - 500+++ Julio/mcL [facility] Nitrite, UA Negative Negative - Positive [facility] pH, UA 6 5 - 9 [facility] Protein, UA Positive Negative - 1999(20) ++++ mg/dL [facility] Comment on above: 2+ Spec Grav, UA 1.02 1 - 1.03 [facility] Urobilinogen, UA 1.0 0.2 - 12 mg/dL [facility] US OB FOLLOW UP TRANSABDOMIN AL APPROACHon [...] UA Negative Negative - 4(70) +++ mg/dL [facility] Blood, UA Positive Negative - 50 Derick/mcL [facility] Comment on above: 1+ Clarity, UA Clear [facility] Color, UA Yellow [facility] Glucose, UA Negative Negative - 1999(110) ++++ mg/dL [facility] Interpretation and review of laboratory results Abnormal [facility] Ketones, UA Negative Negative - 160(16) ++++ mg/dL [facility] Leukocytes, UA Negative Negative - 500+++ Julio/mcL [facility] Nitrite, UA Negative Negative - Positive [facility] pH, UA 6 5 - 9 [facility] Protein, UA Positive Negative - 1999(20) ++++ mg/dL [facility] Spec Grav, UA 1.01 1 - 1.03 [facility] Urobilinogen, UA 1.0 0.2 - 12 mg/dL [facility] Urinalysis macro (dipstick) panel (U)on 04-17-2025 Bilirubin, UA Negative Negative - 4(70) +++ mg/dL [facility] Blood, UA Positive Negative - 50 Derick/mcL [facility] Clarity, UA Clear [facility] Color, UA Yellow [facility] Glucose, UA Negative Negative - 1999(110) ++++ mg/dL [facility] Interpretation and review of laboratory results Abnormal [facility] Ketones, UA Negative Negative - 160(16) ++++ mg/dL [facility] Leukocytes, UA Positive Negative - 500+++ Julio/mcL [facility] Nitrite, UA Negative Negative - Positive [facility] pH, UA 6 5 - 9 [facility] Protein, UA Negative Negative - 1999(20) ++++ mg/dL [facility] Spec Grav, UA 1.015 1 - 1.03 [facility] Urobilinogen, UA 1.0 0.2 - 12 mg/dL [facility] Urinalysis macro (dipstick) panel (U)on 04-03-2025 Bilirubin, UA Negative Negative - 4(70) +++ mg/dL [facility] Blood, UA Positive Negative - 50 Derick/mcL [facility] Clarity, UA Clear [facility] Color, UA Yellow [facility] Glucose, UA Negative Negative - 1999(110) ++++ mg/dL [facility] Interpretation and review of laboratory results Abnormal [facility] Ketones, UA Negative Negative - 160(16) ++++ mg/dL [facility] Leukocytes, UA Negative Negative - 500+++ Julio/mcL [facility] Nitrite, UA Negative Negative - Positive [facility] pH, UA 6.5 5 - 9 [facility] Protein, UA Negative Negative - 1999(20) ++++ mg/dL [facility] Spec Grav, UA 1.015 1 - 1.03 [facility] Urobilinogen, UA 1.0 0.2 - 12 mg/dL [facility] GLUCOSE TOLERANCE 3 HOURon 0 03-21-2025 GLUCOSE TOLERANCE 3 HOUR High mg/dL [facility] Comment on above: GLU FAST 86 (<95) Co l: 03/21/25 0856 GLU 1HR 181H (<180) Col: 03/21/25 1002 GLU 2HR 162H (<155) Col: 03/21/25 1102 GLU 3HR 75 (<140) Col: 03/21/25 1202 Interpretation and review of laboratory results Abnormal [facility] US OB LIMITED 1+ FETUSESon 0 [...] II, MD, PHD at 21-Mar-2025 08:31:03 AM [facility] [facility] Normal Not Available Comment on above: Order Comment: US OB INCOMPLETE ANATOMY Estimated Date of Delivery: 07/01/25 Gestational Age as of 02/24/2025: 21w6d IGP,APTIMA HPV,AGE GDLNon AGE GDLN ACOG TESTING Note . [facility] Comment on above: TESTS RESULT FLAG UN ITS REF RANGE LAB Clinician Provided Cytology Information Source.............[facility] Other.............. No. of containers..01 ThinPrep Vial Age Brijesh MARTINI Mandie... -25 09 FLAG LEGEND: L-Low Normal,H-High Normal,LL-Alert Low,HH-Alert High <-Panic Low,>-Panic High,A-Abnormal,AA-Critical Abnormal Performed at: 01 =G [facility] [address] Mckenna Polanco MD, IGP, RFX APTIMA HPV ASCU Note . [facility] Comment on above: TESTS RESULT FLAG UN ITS REF RANGE LAB DIAGNOSIS: 02 NEGATIVE FOR INTRAEPITHELIAL LESION OR MALIGNANCY. Specimen adequacy: 02 Satisfactory for evaluation. No endocervical component is identified. Performed by: Andres Pineda, Rn First Assist ([facility]) . 02 Note: Note 02 [...] <-Panic Low,>-Panic High,A-Abnormal,AA-Critical Abnormal Performed at: [address] [address] Mckenna Polanco MD, Performed at: = - [address] [id number] Associate Professor Plant Pathology: Mckenna Polanco MD, Phone: [phone] Performed at: [facility] [id number] Associate Professor Plant Pathology: Mckenna Polanco MD, Phone: [phone] [facility] GLUCOSE 1 HOURon 03-06-2025 Glucose [Mass/Vol] 141 mg/dL High NINF - 13 0 mg/dL [facility] Interpretation and review of laboratory results Abnormal [facility] Glucose tolerance, 1 houron 03-06-2025 Glucose Tolerance Test 1 Hour 141 [facility] No Panel Informationon 03-06 [facility] Urinalysis macro (dipstick) panel (U)on 03-05-2025 Bilirubin, UA Negative Negative - 4(70) +++ mg/dL [facility] Blood, UA Negative Negative - 50 Derick/mcL [facility] Clarity, UA Clear [facility] Color, UA Yellow [facility] Glucose, UA Negative Negative - 2000(110) ++++ mg/dL [facility] Interpretation and review of laboratory results Normal [facility] Ketones, UA Negative Negative - 160(16) ++++ mg/dL [facility] Leukocytes, UA Negative Negative - 500+++ Julio/mcL [facility] Nitrite, UA Negative Negative - Positive [facility] pH, UA 6 5 - 9 [facility] Protein, UA Negative Negative - 2000(20) ++++ mg/dL [facility] Spec Grav, UA 1.01 1 - 1.03 [facility] Urobilinogen, UA 0.2 0.2 - 12 mg/dL [facility] US OB 14+ WEEKS ANATOMY SCAN on [...] Qlon 02-01 Hepatitis B Surface Antigen Negative [facility] BOX TESTon 01-31-2025 BOX TEST SENT OUT [facility] BOX1 [facility] BOX2 01/31/25 [facility] Drug Screen, Urineon 025 Amphetamine/Methamphet amine Negative [facility] Barbiturates Negative [facility] Benzodiazepines Negative [facility] Cocaine Metabolite Negative [facility] Ecstasy Negative [facility] Methadone Negative [facility] Opiates Negative [facility] Oxycodone Negative [facility] Phencyclidine Negative [facility] Thc Marijuana, Urine Positive [facility] HIV 1+2 Ab+HIV1 p24 Ag IA Ql on 01-31-2025 HIV 1&2 AB/AG Non-Reactive [facility] Hemoglobin A1con 01-31-2025 HbA1c (Bld) [Mass fraction] 4.9 % 4.0 - 6.0 % [facility] No Panel Informationon 01-31 [facility] Rubella IGG immune statuson 01-31-2025 Rubella immune IgG 7.29 [facility] Type and screenon 01-31-2025 Abo/Rh(D) Negative [facility] No Panel Informationon 01-30 STAPHYLOCOCCUS EPIDERMIDIS, HAEMOLYTICUS, LUGDUNENSIS, SAPROPHYTICUS (URINA 0 [facility] STAPHYLOCOCCUS EPIDERMIDIS, HAEMOLYTICUS, LUGDUNENSIS, SAPROPHYTICUS (URINA Not detected [facility] URINARY TRACT INFECTION (HTR X)on 01-30-2025 ACINETOBACTER BAUMANII 0 NO [facility] ACINETOBACTER BAUMANII Not detected [facility] MAYNOR ALBICANS, PARAPSILOSIS, TROPICALIS [address] [facility] [facility] MAYNOR ALBICANS, PARAPSILOSIS, TROPICALIS Not detected [facility] MAYNOR GLABRATA 0 [facility] MAYNOR GLABRATA Not detected [facility] MAYNOR KRUSEI 0 [facility] MAYNOR KRUSEI Not detected [facility] CITROBACTER FREUNDII 0 [facility] CITROBACTER FREUNDII Not detected [facility] ENTEROBACTER AEROGENES, CLOACAE 0 [facility] ENTEROBACTER AEROGENES, CLOACAE Not detected [facility] ENTEROCOCCUS FAECALIS, FAECIUM 0 [facility] ENTEROCOCCUS FAECALIS, FAECIUM Not detected [facility] ESCHERICHIA COLI 0 [facility] ESCHERICHIA COLI Not detected [facility] KLEBSIELLA PNEUMONIAE, OXYTOCA 0 [facility] KLEBSIELLA PNEUMONIAE, OXYTOCA Not detected [facility] MORGANELLA MORGANII 0 [facility] MORGANELLA MORGANII Not detected [facility] PROTEUS MIRABILIS, VULGARIS 0 [facility] PROTEUS MIRABILIS, VULGARIS Not detected [facility] PSEUDOMONAS AERUGINOSA 0 NO [facility] PSEUDOMONAS AERUGINOSA Not detected [facility] SERRATIA MARCESCENS 0 [facility] SERRATIA MARCESCENS Not detected [facility] STAPHYLOCOCCUS AUREUS [address] [facility] [facility] STAPHYLOCOCCUS AUREUS Not detected [facility] STREPTOCOCCUS AGALACTIAE (GROUP B STREP) 0 [facility] STREPTOCOCCUS AGALACTIAE (GROUP B STREP) Not detected [facility] STREPTOCOCCUS PYOGENES (GROUP A STREP) [address] [facility] STREPTOCOCCUS PYOGENES (GROUP A STREP) Not detected [facility] Urinalysis macro (dipstick) panel (U)on 01-29-2025 Bilirubin, UA Negative Negative - 4(70) +++ mg/dL [facility] Blood, UA Positive Negative - 50 Derick/mcL [facility] Comment on above: Trace-intact Clarity, UA Clear [facility] Color, UA Yellow [facility] Glucose, UA Negative Negative - 1999(110) ++++ mg/dL [facility] Interpretation and review of laboratory results Abnormal [facility] Ketones, UA Negative Negative - 160(16) ++++ mg/dL [facility] Leukocytes, UA Negative Negative - 500+++ Julio/mcL [facility] Nitrite, UA Negative Negative - Positive [facility] pH, UA 7 5 - 9 [facility] Protein, UA Trace Negative - 2000(20) ++++ mg/dL [facility] Spec Grav, UA 1.02 1 - 1.03 [facility] Urobilinogen, UA 1.0 0.2 - 12 mg/dL [facility] HCG ( test) Ql (U)o n 01-24-2025 Interpretation and review of laboratory results Abnormal [facility] Preg Test, Ur Positive Negative [facility] US OB LIMITED 1+ FETUSESon 0 [...] II, MD, PHD at 27-Jan-2025 10:23:04 AM [facility] Normal Not Available Comment on above: Order Comment: US OB TRANSVAGINAL No LMP recorded. Urinalysis macro (dipstick) panel (U)on 01-24-2025 Bilirubin, UA Negative Negative - 4(70) +++ mg/dL [facility] Blood, UA Positive Negative - 50 Derick/mcL [facility] Comment on above: Trace-Intact Clarity, UA Clear [facility] Color, UA Yellow [facility] Glucose, UA Negative Negative - 1999(110) ++++ mg/dL [facility] Interpretation and review of laboratory results Abnormal [facility] Ketones, UA Negative Negative - 160(16) ++++ mg/dL [facility] Leukocytes, UA Negative Negative - 500+++ Julio/mcL [facility] Nitrite, UA Negative Negative - Positive [facility] pH, UA 7 5 - 9 [facility] Protein, UA Negative Negative - 1999(20) ++++ mg/dL [facility] Spec Grav, UA 1.02 1 - 1.03 [facility] Urobilinogen, UA 0.2 0.2 - 12 mg/dL [facility] Urine Cultureon 01-06-2025 Bacteria identified Cx Nom (U) No Growth 2 Days PERFORMED BY: [facility] [address] [place] [address] PATHOLOGIST SODA CLERK RAHUL HOLCOMB M.D. Normal [facility] Comment on above: Performed By: #### C UU #### [facility] [address] Amphetamine Screen Ql (U)Ord ered By: Denny Azevedo on 08-11-2023 Amphetamines Ql (U) Negative Negative [facility] Amylase [Enzymatic activity/ volume] in Serum or PlasmaOrdered By: Denny Azevedo on 08-11-2023 Amylase [Catalytic activity/Vol] 32 U/L 29-103 [facility] Aspartate aminotransferase [ Enzymatic activity/volume] in Serum or PlasmaOrdered By: Denny Azevedo on 08-11-2023 AST [Catalytic activity/Vol] 24 U/L 13-39 [facility] Automated erythrocytes count in urine sediment (number/area)Ordered By: Denny Azevedo on 08-11-2023 RBC Auto (Urine sed) [#/Area] 10-19 [HPF] 0-4 [facility] Automated leukocytes count i n urine sediment (number/area)Ordered By: Denny Azevedo on 08-11-2023 WBC Auto (Urine sed) [#/Area] 3-4 [HPF] 0-4 [facility] Barbiturates [Presence] in U rine by Screen methodOrdered By: Denny Azevedo on 08-11-2023 Barbiturates Screen Ql (U) Negative Negative [facility] Basophils Auto (Bld) [#/Vol] Ordered By: Denny Azevedo on 08-11-2023 Basophils (Bld) [#/Vol] 0.1 10*3/uL 0.0-0.2 [facility] Basophils/100 WBC Auto (Bld) Ordered By: Denny Azevedo on 08-11-2023 Basophils/100 WBC (Bld) 0.9 % . [facility] Benzodiazepines Screen Ql (U )Ordered By: Denny Azevedo on 08-11-2023 Benzodiazepines Ql (U) Negative Negative [facility] Benzoylecgonine [Presence] i n Urine by Screen methodOrdered By: Denny Azevedo on 08-11-2023 Benzoylecgonine Screen Ql (U) Negative Negative [facility] Bilirubin Test strip Ql (U)O rdered By: Denny Azevedo on 08-11-2023 Bilirubin Ql (U) Negative Negative [facility] Cannabinoids [Presence] in U rine by Screen methodOrdered By: Denny Azevedo on 08-11-2023 Cannabinoids Screen Ql (U) Positive Negative [facility] Comment on above: These are unconfirme d results and should not be used for legal purposes. Drug Cut-Off Concentration: AMPH 1000 ng/mL THOMAS 200 ng/mL ARTHUR 200 ng/mL COCM 300 ng/mL OP 300 ng/mL PCP 25 ng/mL THC 20 ng/mL Carbon dioxide, total [Moles /volume] in Serum or PlasmaOrdered By: Denny Azevedo on 08-11-2023 CO2 [Moles/Vol] 17.8 mmol/L 21.0-31.0 [facility] Chloride [Moles/volume] in S marline or PlasmaOrdered By: Denny Azevedo on 08-11-2023 Chloride [Moles/Vol] 108 mmol/L 98-107 [facility] Color Auto (U)Ordered By: French Azevedo on 08-11-2023 Color (U) Yellow Yellow [facility] Creatine kinase [Enzymatic a ctivity/volume] in Serum or PlasmaOrdered By: Denny Azevedo on 08-11-2023 CK [Catalytic activity/Vol] 225 U/L 30-223 [facility] Creatinine [Mass/volume] in Serum or PlasmaOrdered By: Denny Azevedo on 08-11-2023 Creatinine [Mass/Vol] 0.68 mg/dL 0.60-1.20 [facility] Eosinophils Auto (Bld) [#/Vo l]Ordered By: Denny Azevedo on 08-11-2023 Eosinophils (Bld) [#/Vol] 0.1 10*3/uL 0.0-0.45 [facility] Eosinophils/100 WBC Auto (Bl d)Ordered By: Denny Azevedo on 08-11-2023 Eosinophils/100 WBC (Bld) 1.3 % . [facility] Erythrocyte distribution wid th Auto (RBC) [Ratio]Ordered By: Denny Azevedo on 08-11-2023 Erythrocyte distribution width (RBC) [Ratio] 12.9 % 11.9-15.3 [facility] Ethanol [Mass/volume] in Ser um or PlasmaOrdered By: Denny Azevedo on 08-11-2023 Ethanol [Mass/Vol] mg/dL [facility] Ethanol [Mass/Vol] TNP [facility] Comment on above: Test not performed Glucose [Mass/volume] in Ser um or PlasmaOrdered By: Denny Azevedo on 08-11-2023 Glucose [Mass/Vol] 109 mg/dL 70-100 [facility] Comment on above: ADA recommended refe rence rangeRandom Glucose Reference Range is dependent on time and content of last meal. Glucose of more than 200 mg/dL in a nonstressed, ambulatory subject supports the diagnosis of Diabetes Mellitus. HCG ( test) IA.rapi d Ql (U)Ordered By: Denny Azevedo on 08-11-2023 HCG ( test) Ql (U) Negative [facility] Hematocrit Auto (Bld) [Volum e fraction]Ordered By: Denny Azevedo on 08-11-2023 Hematocrit (Bld) [Volume fraction] 40.4 % 34.0-46.4 [facility] Hemoglobin [Mass/volume] in BloodOrdered By: Denny Azevedo 08-11-2023 Hemoglobin (Bld) [Mass/Vol] 14.2 g/dL 11.8-15.4 [facility] INR in Platelet poor plasma by Coagulation assayOrdered By: Denny Azevedo on 08-11-2023 INR Coag (PPP) [Relative time] 1.0 {INR} [facility] Comment on above: INR Therapeutic Rang e [...] on 08-11-2023 Ketones (U) [Mass/Vol] Trace Negative [facility] Laboratory - UrinalysisOrder ed By: Denny Azevedo on 08-11-2023 Hyaline casts LM Ql (Urine sed) 0-8 [LPF] 0-8 [facility] Leukocytes [#/volume] correc sonja for nucleated erythrocytes in Blood by Automated counOrdered By: Denny Azevedo on 08-11-2023 WBC corrected for nucl RBC Auto (Bld) [#/Vol] 7.9 10*3/uL 3.8-11.6 [facility] Lipase [Enzymatic activity/v olume] in Serum or PlasmaOrdered By: Denny Azevedo on 08-11-2023 Lipase [Catalytic activity/Vol] 13.0 U/L 11.0-82.0 [facility] Lymphocytes Auto (Bld) [#/Vo l]Ordered By: Denny Azevedo on 08-11-2023 Lymphocytes (Bld) [#/Vol] 1.8 10*3/uL 1.00-4.8 [facility] Lymphocytes/100 WBC Auto (Bl d)Ordered By: Denny Azevedo on 08-11-2023 Lymphocytes/100 WBC (Bld) 23.1 % . [facility] MCH Auto (RBC) [Entitic mass ]Ordered By: Denny Azevedo on 08-11-2023 MCH (RBC) [Entitic mass] 30.4 pg 24.7-34.3 [facility] MCHC Auto (RBC) [Mass/Vol]Or dered By: Denny Azevedo on 08-11-2023 MCHC (RBC) [Mass/Vol] 35.1 g/dL 32.0-35.0 [facility] MCV Auto (RBC) [Entitic vol] Ordered By: Denny Azevedo on 08-11-2023 MCV (RBC) [Entitic vol] 86.7 fL 80-100 [facility] Monocyte distribution width [Entitic volume] in Blood by AutomatedOrdered By: Denny Azevedo on 08-11-2023 Monocyte distribution width Auto (Bld) [Entitic vol] 17.99 % 0.00-20.00 [facility] Monocytes Auto (Bld) [#/Vol] Ordered By: Denny Azevedo on 08-11-2023 Monocytes (Bld) [#/Vol] 0.5 10*3/uL 0.0-0.8 [facility] Monocytes/100 WBC Auto (Bld) Ordered By: Denny Azevedo on 08-11-2023 Monocytes/100 WBC (Bld) 6.9 % . [facility] Neutrophils Auto (Bld) [#/Vo l]Ordered By: Denny Azevedo on 08-11-2023 Neutrophils (Bld) [#/Vol] 5.4 10*3/uL 1.8-7.7 [facility] Neutrophils/100 WBC Auto (Bl d)Ordered By: Denny Azevedo on 08-11-2023 Neutrophils/100 WBC (Bld) 67.8 % . [facility] Nitrite Test strip Ql (U)Ord ered By: Denny Azevedo on 08-11-2023 Nitrite Ql (U) Negative Negative [facility] No Panel InformationOrdered By: Denny Azevedo on 08-11-2023 Estimated GFR (CKD-EPI) > 60.0 mL/Min [facility] Creatinine Clearance (Chem 138.27 [facility] Nucleated erythrocytes [Pres ence] in Blood by Automated countOrdered By: Denny Azevedo on 08-11-2023 Nucleated RBC Auto Ql (Bld) 0.1 /100{WBC} 0-0.5 [facility] Opiates [Presence] in Urine by Screen methodOrdered By: Denny Azevedo on 08-11-2023 Opiates Screen Ql (U) Negative Negative [facility] Phencyclidine Screen Ql (U)O rdered By: Denny Azevedo on 08-11-2023 Phencyclidine Ql (U) Negative Negative [facility] Platelet mean volume Auto (B ld) [Entitic vol]Ordered By: Denny Azevedo on 08-11-2023 Platelet mean volume (Bld) [Entitic vol] 7.7 fL 6.3-10.7 [facility] Platelets Auto (Bld) [#/Vol] Ordered By: Denny Azevedo on 08-11-2023 Platelets (Bld) [#/Vol] 307 10*3/uL 150-450 [facility] Potassium [Moles/volume] in Serum or PlasmaOrdered By: Denny Azevedo on 08-11-2023 Potassium [Moles/Vol] 3.3 mmol/L 3.5-5.1 [facility] Protein Auto test strip (U) [Mass/Vol]Ordered By: Denny Azevedo on 08-11-2023 Protein (U) [Mass/Vol] 30 mg/dL Negative [facility] Prothrombin time (PT)Ordered By: Denny Azevedo on 08-11-2023 PT Coag (PPP) [Time] 12.1 s 9.0-12.9 [facility] Comment on above: A hematocrit value g reater than 55% may lead to inaccurate results in coagulation testing. Patients having hematocrit values >55% require a special collection tube for coagulation studies. Please contact the laboratory at [phone] for redraw instructions. RBC Auto (Bld) [#/Vol]Ordere d By: Denny Azevedo on 08-11-2023 RBC (Bld) [#/Vol] 4.66 10*6/uL 3.60-5.00 [facility] Serum or plasma anion gap de terminationOrdered By: Denny Azevedo 08-11-2023 Anion gap [Moles/Vol] 15.5 mmol/L 6.0-15.0 [facility] Sodium [Moles/volume] in Ser um or PlasmaOrdered By: Denny Azevedo 08-11-2023 Sodium [Moles/Vol] 138 mmol/L 136-145 [facility] Specific gravity Auto test s trip (U) [Rel density]Ordered By: Denny Azevedo 08-11-2023 Specific gravity (U) [Rel density] 1.026 1.001-1.03 0 [facility] Squamous epithelial cells de tection in urine sediment by light microscopyOrdered By: Denny Azevedo 08-11-2023 Epithelial cells.squamous LM Ql (Urine sed) 0-1 [HPF] 0-2 [facility] Urea nitrogen [Mass/volume] in Serum or PlasmaOrdered By: Denny Azevedo 08-11-2023 Urea nitrogen [Mass/Vol] 11 mg/dL 7-25 [facility] Urine bacteria detection by automated methodOrdered By: Denny Azevedo on 08-11-2023 Bacteria Auto Ql (U) None seen None Seen [facility] Urine clarity by refractomet ry automatedOrdered By: Denny Azevedo on 08-11-2023 Clarity Refractometry automated (U) Clear Clear [facility] Urine glucose measurement by automated test strip (mass/volume)Ordered By: Denny Azevedo on 08-11-2023 Glucose Auto test strip (U) [Mass/Vol] Normal mg/dL Normal [facility] Urine hemoglobin detection b y automated test stripOrdered By: Denny Azevedo on 08-11-2023 Hemoglobin Auto test strip Ql (U) 2+ Negative [facility] Urine leukocyte esterase det ection by automated test stripOrdered By: Denny Azevedo on 08-11-2023 Leukocyte esterase Auto test strip Ql (U) Negative Negative [facility] Urobilinogen Auto test strip (U) [Mass/Vol]Ordered By: Denny Azevedo on 08-11-2023 Urobilinogen (U) [Mass/Vol] Normal mg/dL Normal [facility] WBC Auto (Bld) [#/Vol]Ordere d By: Denny Azevedo on 08-11-2023 WBC (Bld) [#/Vol] 7.9 10*3/uL 3.8-11.6 [facility] pH Auto test strip (U)Ordere d By: Denny Azevedo on 08-11-2023 pH (U) 6.5 [pH] 5.0-9.0 [facility] BILIRUBIN CONJUGATED (DIRECT )on 03-03-2022 BILI, CONJUGATED 0.3 mg/dL Critically high 0.0-0.2 [facility] Comment on above: Performed By: #### D FERNANDEZ #### [facility] [address] [place] [id number] [address] Yaritza Bojorquez CBC AUTO DIFFon 03-03-2022 BASO # 0.1 103/ul Normal 0.0-0.1 [facility] Comment on above: Performed By: #### C BC #### [facility] [address] [address] [address] Yaritza Bojorquez Basophils/100 WBC (Bld) 0.5 % Normal 0.2-2.0 [facility] Comment on above: Performed By: #### C BC #### [facility] [address] [place] [address] Dr. Yaritza Bojorquez EO # 0.0 103/ul Normal 0.0-0.7 [facility] Comment on above: Performed By: #### C BC #### [facility] [address] [address] [address] Yaritza Bojorquez Eosinophils/100 WBC (Bld) 0.1 % Critically low 0.9-7.0 [facility] Comment on above: Performed By: #### C BC #### [facility] [address] [place] [address] Dr. Yaritza Bojorquez Erythrocyte distribution width (RBC) [Ratio] 12.1 % Normal 11.0-15.0 [facility] Comment on above: Performed By: #### C BC #### [facility] [address] [place] [address] Dr. Yaritza Bojorquez Hematocrit (Bld) [Volume fraction] 45.0 % Normal 36.0-48.0 [facility] Comment on above: Performed By: #### C BC #### [facility] [address] [place] [address] Dr. Yaritza Bojorquez Hemoglobin (Bld) [Mass/Vol] 16.5 g/dL Critically high 12.0-16.0 [facility] Comment on above: Performed By: #### C BC #### [facility] [address] [place] [address] Dr. Yaritza Bojorquez IG # 0.05 10e3/ul Critically high 0.00-0.03 [facility] Comment on above: Performed By: #### C BC #### [facility] [address] [place] [address] Dr. Yaritza Bojorquez IG % 0.3 % Normal 0.0-0.5 [facility] Comment on above: Performed By: #### C BC #### [facility] [address] [place] [address] Dr. Yaritza Bojorquez LYMPH # 3.2 103/ul Normal 1.2-3.8 [facility] Comment on above: Performed By: #### C BC #### [facility] [address] [place] [address] Dr. Yaritza Bojorquez Lymphocytes/100 WBC (Bld) 21.6 % Normal 20.5-60.0 [facility] Comment on above: Performed By: #### C BC #### [facility] [address] [place] [address] Dr. Yaritza Bojorquez MANUAL DIFF REQ NO Normal [facility] Comment on above: Performed By: #### C BC #### [facility] [address] [place] [address] Dr. Yaritza Bojorquez MCH (RBC) [Entitic mass] 30.7 pg Normal 26.7-34.0 [facility] Comment on above: Performed By: #### C BC #### [facility] [address] [place] [address] Dr. Yaritza Bojorquez MCHC (RBC) [Mass/Vol] 36.7 g/dL Critically high 29.9-35.2 [facility] Comment on above: Performed By: #### C BC #### [facility] [address] [place] [address] Dr. Yaritza Bojorquez MCV (RBC) [Entitic vol] 83.8 fL Normal 81.0-99.0 [facility] Comment on above: Performed By: #### C BC #### [facility] [address] [place] [address] Dr. Yaritza Bojorquez MONO # 0.8 103/ul Normal 0.3-0.8 [facility] Comment on above: Performed By: #### C BC #### [facility] [address] [place] [address] Dr. Yaritza Bojorquez Monocytes/100 WBC (Bld) 5.3 % Normal 1.7-12.0 [facility] Comment on above: Performed By: #### C BC #### [facility] [address] [place] [address] Dr. Yaritza Bojorquez NEUT # 10.5 103/ul Critically high 1.4-6.5 [facility] Comment on above: Performed By: #### C BC #### [facility] [address] [place] [address] Dr. Yaritza Bojorquez Neutrophils/100 WBC (Bld) 72.2 % Normal 43.0-75.0 [facility] Comment on above: Performed By: #### C BC #### [facility] [address] [place] [address] Dr. Yaritza Bojorquez Platelet mean volume (Bld) [Entitic vol] 10.0 fL Normal 9.5-13.5 [facility] Comment on above: Performed By: #### C BC #### [facility] [address] [place] [address] Dr. Yaritza Bojorquez PLT 450 103/ul Normal 150-450 [facility] Comment on above: Performed By: #### C BC #### [facility] [address] [place] [address] Dr. Yaritza Bojorquez RBC 5.37 106/ul Normal 4.20-5.40 [facility] Comment on above: Performed By: #### C BC #### [facility] [address] [place] [address] Dr. Yaritza Bojorquez WBC 14.6 103/ul Critically high 4.0-11.0 [facility] Comment on above: Performed By: #### C BC #### [facility] [address] [place] [address] Dr. Yaritza Bojorquez CULTURE URINEon 03-03-2022 CULTURE URINE Culture Observations : LIGHT GROWTH OF MIXED GENITAL KRYSTAL. NO POTENTIAL PATHOGENS SEEN. Normal [facility] Comment on above: Performed By: #### U RCX #### [facility] [address] [place] [address] Dr. Yaritza Bojorquez ER URINE PROFILEon 2 Bilirubin Ql (U) Negative Normal NEGATIVE [facility] Comment on above: Performed By: #### E RUR, UMICRO #### [facility] [address] [place] [address] Dr. Yaritza Bojorquez Clarity (U) CLEAR Normal CLEAR [facility] Comment on above: Performed By: #### Sandoval URIBE UMICRO #### [facility] [address] [place] [address] Dr. Yaritza Bojorquez Color (U) DK. YELLOW Normal YELLOW [facility] Comment on above: Performed By: #### E JOJO UMICRO #### [facility] [address] [place] [address] Dr. Yaritza Bojorquez ERUAHD A micrscopic examina tion will be performed if indicated. Normal [facility] Comment on above: Performed By: #### Sandoval URIBE UMICRO #### [facility] [address] [place] [address] Dr. Yaritza Bojorquez Glucose Ql (U) Negative Normal NEGATIVE [facility] Comment on above: Performed By: #### Sandoval URIBE UMICRO #### [facility] [address] [place] [address] Dr. Yaritza Bojorquez Hemoglobin Ql (U) Negative Normal NEGATIVE [facility] Comment on above: Performed By: #### Sandoval URIBE UMICRO #### [facility] [address] [place] [address] Dr. Yaritza Bojorquez Ketones Ql (U) >=80 Abnormal NEGATIVE [facility] Comment on above: Performed By: #### Sandoval URIBE UMICRO #### [facility] [address] [place] [address] Dr. Yaritza Bojorquez LEUKOCYTES TRACE Abnormal NEGATIVE [facility] Comment on above: Performed By: #### Sandoval URIBE UMICRO #### [facility] [address] [place] [address] Dr. Yaritza Bojorquez Nitrite Ql (U) Negative Normal NEGATIVE [facility] Comment on above: Performed By: #### Sandoval URIBE UMICRO #### [facility] [address] [place] [address] Dr. Yaritza Bojorquez pH (U) 6.5 [pH] Normal 5-9 [facility] Comment on above: Performed By: #### Sandoval URIBE UMICRO #### [facility] [address] [place] [address] Dr. Yaritza Bojorquez Protein (U) [Mass/Vol] 100 mg/dL Abnormal NEGAT TORSTEN/ TRACE [facility] Comment on above: Performed By: #### TAYLA MAE #### [facility] [address] [place] [address] Dr. Yaritza Bojorquez SPEC GRAVITY 1.025 Normal 1.005-<=1. 025 [facility] Comment on above: Performed By: #### TAYLA MAE #### [facility] [address] [place] [address] Dr. Yaritza Bojorquez UR MICRO IND INDICATED Normal [facility] Comment on above: Performed By: #### TAYLA MAE #### [facility] [address] [place] [address] Dr. Yaritza Bojorquez Urobilinogen Qn (U) 4 {Emir'U}/dL Abnormal 0.2 - 1.0 [facility] Comment on above: Performed By: #### TAYLA MAE #### [facility] [address] [place] [address] Dr. Yaritza Bojorquez PROF 14(COMP METB)on 022 Albumin [Mass/Vol] 4.5 g/dL Normal 3.4-5.0 [facility] Comment on above: Performed By: #### C MP #### [facility] [address] [place] [address] Dr. Yaritza Bojorquez Albumin/Globulin [Mass ratio] 1.2 {ratio} Normal [facility] Comment on above: Performed By: #### C MP #### [facility] [address] [place] [address] Dr. Yaritza Bojorquez ALP [Catalytic activity/Vol] 48 U/L Normal 46-116 [facility] Comment on above: Performed By: #### C MP #### [facility] [address] [place] [address] Dr. Yaritza Bojorquez ALT [Catalytic activity/Vol] 25 U/L Normal 14-59 [facility] Comment on above: Performed By: #### C MP #### [facility] [address] [address] [address] Yaritza Bojorquez Anion gap [Moles/Vol] 17.8 mmol/L Normal [facility] Comment on above: Performed By: #### C MP #### [facility] [address] [address] [address] Yaritza Bojorquez AST [Catalytic activity/Vol] 11 U/L Critically low 15-37 [facility] Comment on above: Performed By: #### C MP #### [facility] [address] [address] [address] Yaritza Bojorquez Bilirubin [Mass/Vol] 1.4 mg/dL Critically high 0.2-1.0 [facility] Comment on above: Performed By: #### C MP #### [facility] [address] [place] [address] Dr. Yraitza Bojorquez Calcium [Mass/Vol] 9.3 mg/dL Normal 8.5-10.1 [facility] Comment on above: Performed By: #### C MP #### [facility] [address] [address] [address] Yaritza Bojorquez Chloride [Moles/Vol] 98 mmol/L Normal 98-107 [facility] Comment on above: Performed By: #### C MP #### [facility] [address] [place] [address] Dr. Yaritza Bojorquez CO2 [Moles/Vol] 19.1 mmol/L Critically low 21.0-32.0 [facility] Comment on above: Performed By: #### C MP #### [facility] [address] [place] [address] Dr. Yaritza Bojorquez Creatinine [Mass/Vol] 0.95 mg/dL Normal 0.55-1.02 [facility] Comment on above: Performed By: #### C MP #### [facility] [address] [place] [address] Dr. Yaritza Bojorquez EGFR-AF NIGERIAN >60 Normal >=60 [facility] Comment on above: Performed By: #### C MP #### [facility] [address] [place] [address] Dr. Yaritza Bojorquez EGFR-NON AF NIGERIAN >60 Normal >=60 [facility] Comment on above: Performed By: #### C MP #### [facility] [address] [place] [address] Dr. Yaritza Bojorquez Globulin (S) [Mass/Vol] 3.6 g/dL Normal [facility] Comment on above: Performed By: #### C MP #### [facility] [address] [address] [address] Yaritza Bojorquez Glucose [Mass/Vol] 138 mg/dL Critically high 74-106 [facility] Comment on above: Performed By: #### C MP #### [facility] [address] [place] [address] Dr. Yaritza Bojorquez Potassium [Moles/Vol] 2.9 mmol/L Critically low 3.5-5.1 [facility] Comment on above: Performed By: #### C MP #### [facility] [address] [place] [address] Dr. Yaritza Bojorquez Protein [Mass/Vol] 8.1 g/dL Normal 6.4-8.2 [facility] Comment on above: Performed By: #### C MP #### [facility] [address] [place] [address] Dr. Yaritza Bojorquez Sodium [Moles/Vol] 132 mmol/L Critically low 136-145 [facility] Comment on above: Performed By: #### C MP #### [facility] [address] [place] [address] Dr. Yaritza Bojorquez Urea nitrogen [Mass/Vol] 8.0 mg/dL Normal 7.0-18.0 [facility] Comment on above: Performed By: #### C MP #### [facility] [address] [place] [address] Dr. Yaritza Bojorquez Urea nitrogen/Creatinine [Mass ratio] 8.4 mg/mg Normal [facility] Comment on above: Performed By: #### C MP #### [facility] [address] [place] [address] Dr. Yaritza Bojorquez URINE MICROSCOPIC ONLYon BACTERIA MODERATE Abnormal NONE SEEN [facility] Comment on above: Performed By: #### E RUR, UMICRO #### [facility] [address] [place] [address] Dr. Yaritaz Bojorquez Bacteria identified Cx Nom (U) INDICATED Normal [facility] Comment on above: Performed By: #### E RUR, UMICRO #### [facility] [address] [place] [address] Dr. Yaritza Bojorquez CAST NONE SEEN Normal NONE SEEN [facility] Comment on above: Performed By: #### E RUR, UMICRO #### [facility] [address] [place] [address] Dr. Yaritza Bojorquez Crystals LM Nom (Urine sed) NONE SEEN Normal NONE SEEN [facility] Comment on above: Performed By: #### E RUR, UMICRO #### [facility] [address] [place] [address] Dr. Yaritza Bojorquez Epithelial cells LM Ql (Urine sed) MANY Abnormal NONE SEEN /RARE [facility] Comment on above: Performed By: #### E RUR, UMICRO #### [facility] [address] [place] [address] Dr. Yaritza Bojorquez MUCOUS SMALL Abnormal NONE SEEN [facility] Comment on above: Performed By: #### E RUR, UMICRO #### [facility] [address] [place] [address] Dr. Yaritza Bojorquez RBC 2-5 Abnormal 0-2 [facility] Comment on above: Performed By: #### Sandoval URIBE UMICRO #### [facility] [address] [place] [address] Dr. Yaritza Bojorquez WBC 5-10 Abnormal NONE SEEN [facility] Comment on above: Performed By: #### E JOJO, UMICRO #### [facility] [address] [place] [address] Dr. Yaritza Bojorquez XR ABD FLAT UP_PA [...] MACK SAMUELS Date: 2022-03-03 07:46 Normal [facility] Covid-19 PCR (CVDTB)on 07-29 SARS-CoV-2 (COVID-19) RNA KOLE+probe Ql (Unsp spec) Not detected Normal NOT DETECTED [facility] Comment on above: Result Comment: This test is not yet approved or cleared by the [place] FDA. When there are no FDA-approved or cleared tests available, and other criteria are met, FDA can make tests available under an emergency access mechanism called an Emergency Use Authorization (EUA). The EUA for this test is supported by the [place] of Health and Human Service's (HHS's) declaration [...] consistent with SARS-CoV-2. Performed By: #### [facility] #### [facility] [address] [place] [address] Dr. Yaritza Bojorquez Provider Note - ED [...] No Current Medications SIGNIFICANT EVENTS: Immunizations Description:Tdap COMPOSITE LAMINATOR: Is : no(1) Is : no(1) RESULTS/VITAL SIGNS VITAL SIGNS: T PRBP SpO2O2(LPM) %FiO2 Method 22-Jun-2019 18:54:[id number] 99 room air, no respiratory support 22-Jun-2019 18:07:[id number]/71 97 room air, no respiratory support MEDICAL [...] - Final Verification: completed Procedure performed by: pa Preparator(s): none Findings: grossly normal anatomy Specimen: no [...] Triage - ED 22-Jun-2019 18:[address] [facility] Risk Screen - Adult Emergenc yon 06-22-2019 Risk Screen - Adult Emergency Preferred Language: Preferred Language: Preferred Language for Discussing Health Care (patient/designee)Togolese Advanced Directives: Advance Directive/DNRno Family Violence Adult: Abuse Screen: Are you or have you been threatened or abused physically, emotionally, or sexually by anyoneno Learning Assessment (Patient): Learning Assessment (Patient): Patient is Able to be Assessed for Learningyes Factors Influencing Readiness to Learnacuteness of illness Factors that Impact Ability to Learnnone Devices/Methods Used to Communicatenone Learning Preferencesaudio Cultural Considerationsnone Developmental Considerationsnone Hinduism Considerationsnone Learning Assessment (Other Learner): Learning Assessment (Other Learner): Other learner availableno Pressure Injury/TB/Substance: Pressure Injury: Pressure Injury Present on Admissionno Do you have a coughno Substance Use Current or Former Historynever: Cigarette/Tobacco, e-Cigarette/Vaping, Alcohol, Street Drugs Admission Risk Screen: Significant IndicatorsComplete CAGE: CAGE: [place] an [place] [place]/[facility]/[place]): yes C: Have you ever felt you needed to Cut down on your drinking: no A: Have people Annoyed you by criticizing your drinking: no G: Have you ever felt Guilty about drinking: no E: Have you ever felt you needed 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) to 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 your nerves or to get rid of hangover: no Electronic Signatures: Mehdi Chaney (MALU) (Signed 22-Jun-2019 18:11) Authored: Preferred Language, Advanced Directives, Family Violence Adult, Learning Assessment (Patient), Learning Assessment (Other Learner), Pressure Injury/TB/Substance, CAGE Last Updated: 22-Jun-2019 18:11 by Mehdi Chaney (RN) [facility] Triage - EDon 06-22-2019 Triage - [...] than 3 weeks: no Travel outside of [facility]: no Allergies: yes Last menstrual period: 24-May-2019 [...] Accompanied By: self Language: Spoken Language Preferred: Togolese PRIMARY ASSESSMENT CHENTE GONZALEZ's primary assessment is [...] 18:40 by Nitin Singer (AYALA) Normal [facility] Vital Signs Date Time Vital Sign Value Performing Clinician Facility 05-15-2025 10:03-0400 Body mass index (BMI) [Ratio] 36.08 kg/m2 Deyanira KABA Work Phone: [facility] 05-15-2025 10:03-0400 Body weight 98.34 kg Deyanira KABA Work Phone: [facility] 05-15-2025 10:03-0400 Diastolic blood pressure 78 mm[Hg] Deyanira Mccloud PA Work Phone: [facility] 05-15-2025 10:03-0400 Systolic blood pressure 140 mm[Hg] Deyanira Juan PA Work Phone: [facility] 04-30-2025 15:05-0400 Body mass index (BMI) [Ratio] 35.01 kg/m2 Jaspreet Angie DO Work Phone: [facility] 04-30-2025 15:05-0400 Body weight 95.44 kg Jaspreet Angie DO Work Phone: [facility] 04-30-2025 15:05-0400 Diastolic blood pressure 70 mm[Hg] Jaspreet Angie DO Work Phone: [facility] 04-30-2025 15:05-0400 Systolic blood pressure 120 mm[Hg] Jaspreet Angie DO Work Phone: [facility] 04-17-2025 10:41-0400 Body mass index (BMI) [Ratio] 33.91 kg/m2 Deyanira Mccloud PA Work Phone: [facility] 04-17-2025 10:41-0400 Body weight 92.44 kg Deyanira Juan PA Work Phone: [facility] 04-17-2025 10:41-0400 Diastolic blood pressure 86 mm[Hg] Deyanira Mccloud PA Work Phone: [facility] 04-17-2025 10:41-0400 Systolic blood pressure 134 mm[Hg] Deyanira Mccloud PA Work Phone: [facility] 04-03-2025 10:50-0400 Body mass index (BMI) [Ratio] 33.35 kg/m2 Jaspreet Angie DO Work Phone: [facility] 04-03-2025 10:50-0400 Body weight 90.9 kg Jaspreet Angie DO Work Phone: [facility] 04-03-2025 10:50-0400 Diastolic blood pressure 72 mm[Hg] Jaspreet Angie DO Work Phone: [facility] 04-03-2025 10:50-0400 Systolic blood pressure 130 mm[Hg] Jaspreet Angie DO Work Phone: [facility] 03-05-2025 11:16-0400 Body mass index (BMI) [Ratio] 31.62 kg/m2 Jaspreet Angie DO Work Phone: [facility] 03-05-2025 11:16-0400 Body weight 86.18 kg Jaspreet Angie DO Work Phone: [facility] 03-05-2025 11:16-0400 Diastolic blood pressure 78 mm[Hg] Jaspreet Angie DO Work Phone: [facility] 03-05-2025 11:16-0400 Systolic blood pressure 128 mm[Hg] Jaspreet Angie DO Work Phone: [facility] 01-29-2025 10:57-0400 Body mass index (BMI) [Ratio] 31.53 kg/m2 Willy Austin [employer] Work Phone: [facility] 01-29-2025 10:57-0400 Body weight 85.96 kg Willy Austin [employer] Work Phone: [facility] 01-29-2025 10:57-0400 Diastolic blood pressure 80 mm[Hg] Willy Austin [employer] Work Phone: [facility] 01-29-2025 10:57-0400 Systolic blood pressure 136 mm[Hg] Willy Austin [employer] Work Phone: [facility] 01-24-2025 11:42-0400 Diastolic blood pressure 70 mm[Hg] [facility] 01-24-2025 11:42-0400 Systolic blood pressure 142 mm[Hg] [facility] 01-24-2025 11:21-0400 Body mass index (BMI) [Ratio] 32.01 kg/m2 Nom Nurse [facility] 01-24-2025 11:21-0400 Body weight 87.26 kg Nom Nurse [facility] 12-23-2024 13:51-0400 Body mass index (BMI) [Ratio] 31.35 kg/m2 Jaspreet Angie DO Work Phone: [facility] 12-23-2024 13:51-0400 Body weight 85.46 kg Jaspreet Angie DO Work Phone: [facility] 12-23-2024 13:51-0400 Diastolic blood pressure 78 mm[Hg] Jaspreet Angie DO Work Phone: [facility] 12-23-2024 13:51-0400 Systolic blood pressure 118 mm[Hg] Jaspreet Angie DO Work Phone: [facility] 08-11-2023 22:07-0500 Diastolic blood pressure 64 mm[Hg] PHYSICIAN NO [facility] 08-11-2023 22:07-0500 Heart rate 71 /min PHYSICIAN NO [facility] 08-11-2023 22:07-0500 Respiratory rate 18 /min PHYSICIAN NO [facility] 08-11-2023 22:07-0500 SaO2% (BldA) [Mass fraction] 99 % PHYSICIAN NO [facility] 08-11-2023 22:07-0500 Systolic blood pressure 126 mm[Hg] PHYSICIAN NO [facility] 08-11-2023 19:17-0500 Body height 170.18 cm PHYSICIAN NO [facility] 08-11-2023 19:17-0500 Body weight 80.73 kg PHYSICIAN NO [facility] Encounters Encounter Date Encounter Type Care Provider [...] on above: 33 weeks gestation o f ([facility]); Third trimester ([facility]); Gestational diabetes mellitus (GDM), antepartum, gestational diabetes method of control unspecified ([facility]) Start: 04-30-2025 End: 04-30-2025 Office outpatient visit 15 minutes Jaspreet Angie DO Work Phone: [facility] Comment on above: 31 weeks gestation o f ([facility]); Third trimester ([facility]); Gestational diabetes mellitus (GDM), antepartum, gestational diabetes method of control unspecified ([facility]) Start: 04-30-2025 End: 04-30-2025 ambulatory JASPREET [...] incons istent with dates in second trimester ([facility]) (Primary Dx); Third trimester ([facility]); 29 weeks gestation of ([facility]) Start: 04-03-2025 End: 04-03-2025 Bamboo flowsheet Jaspreet Angie DO Work Phone: [facility] Start: 04-03-2025 End: 04-03-2025 Bamboo flowsheet Jaspreet Angie DO Work Phone: [facility] Start: 04-03-2025 End: 04-03-2025 ambulatory JASPREET ANGIE Not Available Start: 04-03-2025 End: 04-03-2025 Office outpatient visit 15 minutes Jaspreet Angie DO Work Phone: [facility] Comment on above: Second trimester pre gnancy ([facility]); 27 weeks gestation of ([facility] Start: 03-28-2025 End: 03-28-2025 Chart abstracting Scanning Provider External Maternal- Medicine at [facility] Start: 03-21-2025 End: 03-21-2025 Clinisync [...] Comment on above: Second trimester pre gnancy ([facility]); 23 weeks gestation of ([facility]); Diabetes mellitus screening; Well woman exam with [...] 01-29-2025 End: 01-29-2025 Bamboo flowsheet Willy Austin [employer] Work Phone: [facility] Start: 01-29-2025 End: 01-30-2025 Bamboo flowsheet Willy Austin [employer] Work Phone: [facility] Start: 01-29-2025 End: 01-30-2025 External Result Encounter Willy Austin [employer] Work Phone: [facility] External Department Unsolicited Start: 01-29-2025 End: 01-29-2025 ambulatory WILLY AUSTIN Not Available Start: 01-29-2025 End: 01-29-2025 Office outpatient visit 15 minutes Willy Avila [employer] Work Phone: [facility] Comment on above: Second trimester pre gnancy; 18 weeks gestation of Start: 01-24-2025 End: 01-24-2025 Office outpatient visit 5 minutes [facility] Angie Nurse [facility] Comment on above: [place]: 17w3d Start: 01-24-2025 End: 01-24-2025 ambulatory JASPREET ANGIE Not Available Start: 01-06-2025 End: 01-06-2025 ambulatory Cristal Butt Marker Facility:[facility] Start: 01-06-2025 End: 01-06-2025 Departed Referred Cristal Marker DO Work Phone: [facility] Start: 12-23-2024 End: 12-23-2024 Bamboo flowsheet Jaspreet Angie DO Work Phone: [facility] Start: 12-23-2024 End: 12-23-2024 Bamboo flowsheet Jaspreet Angie DO Work Phone: [facility] Start: 12-23-2024 End: 12-23-2024 ambulatory JASPREET ANGIE Not Available Start: 12-23-2024 End: 12-23-2024 Office outpatient visit 15 minutes Jaspreet Agnie DO Work Phone: [facility] Comment on above: Hyperemesis gravidar um; Follow-up exam Start: 08-11-2023 End: 08-11-2023 Emergency department patient visit PHYSICIAN SASKIA HERR [facility] Work Phone: Start: 03-03-2022 [...] URINARY TRACT INFECT ION (HTRX) Willy Avila [employer] Work Phone: Start: 01-29-2025 Urnls dip stick/tabl et rgnt non-auto w/o micrscp Willy Avila [employer] Work Phone: Start: 01-24-2025 Urnls dip stick/tabl [...] AM EDT Routine [facility] [address] [place] [address] Willy Avila, [employer] [address] [place] [id number] [facility] Start: 04-30-2025 End: 10-28-2025 US biophysical profile w non stress test US biophysical profile w non stress test Imaging Routine Gestational diabetes mellitus (GDM), antepartum, gestational diabetes method of control unspecified ([facility]) Expected: 04/30/2025 (Approximate), Expires: 10/28/2025 [facility] Work Phone: Comment on above: Expected: 04/30/2025 (Approximate), Expires: 10/28/2025 Start: 04-28-2025 Influenza vaccination Influenza Vacc ine [facility] Start: 04-17-2025 End: 08-17-2025 US for US OB follow up transabdominal approach Imaging Routine Size of fetus inconsistent with dates in second trimester ([facility]) Expected: 04/17/2025, Expires: 08/17/2025 [facility] Work Phone: Comment on above: Expected: 04/17/2025 , Expires: 08/17/2025 Start: 04-17-2025 End: 04-17-2025 Patient encounter procedure 04/17/2025 9:50 AM EDT Routine [facility] [address] [place] [phone] Deyanira Mccloud PA [address] [place], [place] [id number] [facility] [place] [facility] Start: 04-03-2025 End: 04-03-2025 ambulatory 04/03/2025 1:30 PM EDT Support Visit Maternal- Medicine at [facility] [address] [place] [address] Rimma Richey, MALU [address] [facility], [address] [place] [address] Nikky Gonzalez, Consuelo Blanco, BLADE [address] [place] [address] Maternal- Medicine at [facility] Start: 04-03-2025 End: 04-03-2025 Patient encounter procedure 04/03/2025 10:40 AM EDT Routine [facility] [address] [place] [phone] Jaspreet Adams DO [address] [place], [place] [id number] [facility] Start: 03-19-2025 End: 03-19-2025 Professional / ancillary services management 03/19/2025 9:30 AM EDT Ancillary Procedure [facility] [address] [place] [address] [facility] Start: 03-05-2025 End: 03-05-2026 CBC panel - Blood by Automated count CBC Lab Routine Diabetes mellitus screening Expected: 03/05/2025 (Approximate), Expires: 03/05/2026 [facility] Comment on above: [...] AM EDT Routine [facility] [address] [place] [address] Jaspreet Adams, DO [address] [place] [address] Arrived [facility] Comment on above: Arrived Start: 02-27-2025 End: 02-27-2025 Patient encounter procedure 02/27/2025 8:50 AM EDT Routine [facility] [address] [place] [address] Jaspreet Adams, DO [address] [place] [address] [facility] Start: 02-12-2025 End: 02-12-2025 Clinical Support 02/12/2025 9:00 AM EDT Clinical Support [facility] [address] [place] [address] [facility] Start: 01-29-2025 End: 01-29-2025 Patient encounter procedure 01/29/2025 10:20 AM EDT Routine [facility] [address] [place] [address] [address] [place], [place] [address] Willy Avila, [employer] [address] [place] [address] [place] [address] [facility] Start: 01-24-2025 End: 01-24-2026 ABO/Rh ABO/Rh Lab Routine Missed menses , unspecified gestational age Expected: 01/24/2025 (Approximate), Expires: 01/24/2026 [facility] Comment on above: Expected: 01/24/2025 (Approximate), Expires: 01/24/2026 Start: 01-24-2025 End: 03-26-2025 Alpha fetoprotein, maternal Alpha fetoprotein, maternal Lab Routine Encounter for supervision of normal first in first trimester Expected: 01/24/2025 (Approximate), Expires: 03/26/2025 [facility] Comment on above: Expected: 01/24/2025 (Approximate), Expires: 03/26/2025 Start: 01-24-2025 End: 01-24-2026 Blood type and Indirect antibody screen panel - Blood Type and screen Lab Routine Missed menses , unspecified gestational age Expected: 01/24/2025 (Approximate), Expires: 01/24/2026 [facility] Work Phone: Comment on above: Expected: 01/24/2025 (Approximate), Expires: 01/24/2026 Start: 01-24-2025 End: 01-24-2026 Drugs of abuse panel - Urine by Screen method Rapid drug screen, urine Lab Routine , unspecified gestational age Encounter for supervision of normal first in first trimester Expected: 01/24/2025 (Approximate), Expires: 01/24/2026 [facility] Comment on above: Expected: 01/24/2025 (Approximate), Expires: 01/24/2026 Start: 01-10-2025 End: 01-10-2025 ambulatory 01/10/2025 9:30 AM EDT Initial [facility] [address] [place] [address] [address] [place], [place] [address] [facility] Start: 01-10-2025 End: 01-10-2025 Professional / ancillary services management 01/10/2025 9:00 AM EDT Ancillary Procedure [facility] [address] [place] [address] [facility] Start: 01-06-2025 Bacteria identified in Urine by Culture Urine Culture [facility] Start: 01-06-2025 Urine culture [facility] Start: 2018 Screening for malign ant neoplasm of cervix Pap Smear [facility] Start: 2016 DTaP,Tdap and Td Vaccines (1 - Tdap) DTaP,Tdap and Td Vaccines (1 - Tdap) [facility] Start: 12-07-2015 Adult BMI Screening Adult BMI Screen ing [facility] Start: 2009 Depression Screening Depression Scre ening [facility] Start: 2009 Tobacco Screening Tobacco Screening [facility] Bacteria identified in Urine by Culture Urine culture Microbiology Routine Missed menses Ordered: 01/24/2025 [facility] Comment on above: Ordered: 01/24/2025 Bacteria identified in Urine by Culture Urine culture Microbiology Routine Second trimester Ordered: 01/29/2025 [facility] Work Phone: Comment on above: Ordered: 01/29/2025 CBC W Auto Different ial panel - Blood CBC and differential Lab Routine Missed menses , unspecified gestational age Ordered: 01/24/2025 [facility] Comment on above: Ordered: 01/24/2025 Cytology Cervical or vaginal smear or scraping study Pap Smear Pathology and Cytology Routine Well woman exam with routine gynecological exam Ordered: 03/05/2025 [facility] Work Phone: Comment on above: Ordered: 03/05/2025 Hemoglobin A1c/Hemoglobin.total in Blood Hemoglobin A1c Lab Routine Missed menses , unspecified gestational age Ordered: 01/24/2025 [facility] Comment on above: Ordered: 01/24/2025 Hepatitis B virus surface Ag [Presence] in Serum or Plasma by Immunoassay Hepatitis B surface antigen Lab Routine Missed menses , unspecified gestational age Ordered: 01/24/2025 [facility] Comment on above: Ordered: 01/24/2025 Hepatitis C virus Ab [Presence] in Serum or Plasma by Immunoassay Hepatitis C antibody Lab Routine Missed menses , unspecified gestational age Ordered: 01/24/2025 [facility] Comment on above: Ordered: 01/24/2025 HIV-1/HIV-2 antigen/antibody combination immunoassay HIV-1 and HIV-2 antibodies Lab Routine Missed menses , unspecified gestational age Ordered: 01/24/2025 [facility] Comment on above: Ordered: 01/24/2025 Patient Education Head injury in adults Blunt Abdominal Trauma ED Blunt Chest Trauma ED [facility] Work Phone: Patient referral [facility] Work Phone: Reagin Ab [Presence] in Serum by RPR RPR Lab Routine Missed menses , unspecified gestational age Ordered: 01/24/2025 [facility] Comment on above: Ordered: 01/24/2025 Rubella antibody, IgG Rubella an tibody, IgG Lab Routine Missed menses , unspecified gestational age Ordered: 01/24/2025 [facility] Comment on above: Ordered: 01/24/2025 Immunizations Immunization Date Immunization Notes Care Provider [facility] 08-11-2023 tetanus toxoid, redu christie diphtheria toxoid, and acellular pertussis vaccine, adsorbed PHYSICIAN NO [facility] Payers Date Payer Category Payer Private Health Insurance [facility]ICA[facility] ..[id number] 2025 Self-pay [id number] 2024 Medicaid ..[id number] 2024 Medicaid [id number] 1997 Unknown [id number] 2.16.840.1.735847.3.579.2. 593 1997 Unknown [id number] 2.16.840.1.956692.3.579.2. 593 1997 Unknown [id number] 2.16.840.1.648568.3.579.2. 9 1997 Unknown [id number] 2.16.840.1.729954.3.579.2. 1259 1997 Unknown [id number] 2.16.840.1.522997.3.579.2. 1258 1997 Unknown [id number] 2.16.840.1.009027.3.579.2. 1258 1997 Unknown [id number] 2.16.840.1.421961.3.579.2. 1258 1997 Unknown [id number] 2.16.840.1.077368.3.579.2. 1258 1997 Unknown [id number] 2.16.840.1.678098.3.579.2. 9 1997 Unknown [id number] 2.16.840.1.118418.3.579.2. 9 1997 Unknown [id number] 2.16.840.1.406207.3.579.2. 1258 1997 Unknown [id number] 2.16.840.1.119731.3.579.2. 125 1997 Unknown [id number] 2.16.840.1.055782.3.579.2. 1258 1997 Unknown [id number] 2.16.840.1.363669.3.579.2. 1259 1959 Unknown [id number] Unknown Regular Auto/Liability [id number] Unknown HCAP/HFA/FAP Active [id number] Unknown [id number] 2.16.840.1.968053.3.579.2. 531 Unknown Regular Auto/Liability [id number] Unknown HCAP/HFA/FAP Active [id number] Social History Date Type Detail Facility Start: 08-11-2023 End: 08-11-2023 Tobacco smoking status NHIS Never smoked tobacco (finding) [facility] Start: 1995 Sex Assigned At Female F [facility] Tobacco smoking stat us DCIS Tobacco smoking consumption unknown [facility] Start: 12-22-2024 Gender identity Identifies as female gender (finding) [facility] Sexual orientation Not on file [facility] Start: 01-07-2025 End: 03-26-2025 Sex Female (finding) [facility] Start: 10-08-2024 [facility] Start: 1997 Sex assigned at Not on file P [facility] Medical Equipment Procedure Code Equipment Code Equipment Origin al Text Equipment Identifier Dates 1 strip by In Vi tro route Daily Use in the morning prior to breakfast, 1 hour after each meal for a total of 4times daily. [id number] Start: 03-24-2025 End: 04-23-2025 1 each by In Vit ro route Daily Use to check FSBS four times daily [id number] Start: 03-24-2025 End: 04-23-2025 Clinical Notes 12-23-2024 [...] to check FSBS. Blood Glucose Monitoring Suppl ([employer]Try[employer] Glucometer) w/Device kit 1 kit, Does not [...] PLAN ICD-10-CM 1. 33 weeks gestation of ([facility]) Z3A.33 POCT urinalysis dipstick manually resulted 2. Third trimester ([facility]) Z34.93 POCT urinalysis dipstick manually resulted 3. Gestational diabetes mellitus (GDM), antepartum, gestational diabetes method of control unspecified ([facility]) O24.419 Return OB: Patient presents today [...] of: SENDY Fan documented in this encounter [facility] 04-30-2025 History of Present illness Narrative [...] nursing note reviewed. Exam conducted with a stone cleaner present. Vitals: Estimated body mass index is 35.01 kg/m as calculated from the following: Height as of 12/01/20: 5' 5 . Weight as of this encounter: 210 lb 6.4 oz. BP: 120/70 Patient's last menstrual period was 10/04/2024 (approximate). ASSESSMENT & PLAN ICD-10-CM 1. 31 weeks gestation of ([facility]) Z3A.31 POCT urinalysis dipstick manually resulted 2. Third trimester ([facility]) Z34.93 POCT urinalysis dipstick manually resulted 3. Gestational diabetes mellitus (GDM), antepartum, gestational diabetes method of control unspecified ([facility]) O24.419 US biophysical profile w non [...] Jaspreet Adams DO documented in this encounter [facility] 04-17-2025 History of Present illness Narrative Reason for Appointment: Patient ID: Chente Gonzalez is a 29 y.o. female who presents for No chief complaint on file. Patient presents today for Return OB appointment. MEDICATIONS Current Outpatient Medications Medication Instructions Alcohol Swabs (Alcohol Prep Pad) 70 % pads 1 Pad, Topical, Daily, Use four times daily to check FSBS. Blood Glucose Monitoring Suppl ([employer] Glucometer) w/Device kit 1 kit, Does not [...] ASSESSMENT & PLAN ICD-10-CM 1. Third trimester ([facility]) Z34.93 POCT urinalysis dipstick manually resulted 2. 29 weeks gestation of ([facility]) Z3A.29 POCT urinalysis dipstick manually resulted [...] of: SENDY Fan documented in this encounter [facility] 04-03-2025 History of Present illness Narrative Reason for Appointment: Patient ID: Chente Gonzalez is a 29 y.o. female who presents for Routine Visit Patient presents today for Return OB appointment. MEDICATIONS Current Outpatient Medications Medication Instructions Alcohol Swabs (Alcohol Prep Pad) 70 % pads 1 Pad, Topical, Daily, Use four times daily to check FSBS. Blood Glucose Monitoring Suppl ([employer] Glucometer) w/Device kit 1 kit, Does not [...] nursing note reviewed. Exam conducted with a stone cleaner present. Vitals: Estimated body mass index is 33.35 kg/m as calculated from the following: Height as of 12/01/20: 5' 5 . Weight as of this encounter: 200 lb 6.4 oz. BP: 130/72 Patient's last menstrual period was 10/04/2024 (approximate). ASSESSMENT & PLAN ICD-10-CM 1. Second trimester ([facility]) Z34.92 Urine dip 2. 27 weeks gestation of ([facility]) Z3A.27 Urine dip Patient presents today for a routine obstetrics appointment. Patient is currently 27w2d with a Estimated Date of Delivery: 07/01/25. Patient brought in FSBS logs for review and patient still desires to hold off on [facility] referral at this time, referral was previously sent on 03/24/25 and when contacted by [facility] patient will inform them that she will postpone scheduling at this time. Patient to return to clinic in 2 weeks for routine OB appointment. Documented by Nissa Matt LPN on behalf of: Jaspreet Adams DO documented in this encounter [facility] 03-05-2025 History of Present illness Narrative [...] nursing note reviewed. Exam conducted with a stone cleaner present. Vitals: Estimated body mass index is 31.62 kg/m as calculated from the following: Height as of 4/6/21: 5' 5 . Weight as of this encounter: 190 lb. BP: 128/78 Patient's last menstrual period was 10/04/2024 (approximate). ASSESSMENT & PLAN ICD-10-CM 1. Second trimester ([facility]) Z34.92 POCT urinalysis dipstick manually resulted 2. 23 weeks gestation of ([facility]) Z3A.23 3. Diabetes mellitus screening Z13.1 [...] Jaspreet Adams DO documented in this encounter [facility] 01-29-2025 History of Present illness Narrative [...] nursing note reviewed. Exam conducted with a stone cleaner present. Vitals: Estimated body mass index is [...] Willy Avila NP documented in this encounter [facility] 01-24-2025 History of Present illness Narrative [...] or undercooked meat, and stay away from [facility]. Patient has also been advised to [...] Kalyn Jacob MA documented in this encounter [facility] 12-23-2024 History of Present illness Narrative [...] nursing note reviewed. Exam conducted with a stone cleaner present. Vitals: Estimated body mass index is [...] Jaspreet Adams DO documented in this encounter [facility] Evaluation note No assessment inform ation available [facility] Work Phone: Evaluation note Diagnosis [...] encounter [facility] HealthcareInstructionsNot on filedocumented in this encounterAdena [facility] Summary Purpose Family History Relationship [...] section and content) DATE [facility] DATE CREATED AUTHOR AUTHOR'S ORGANIZ ATION 06/07/2022 [facility] DATE CREATED AUTHOR AUTHOR'S ORGANIZ ATION 01/09/2025 [facility] DATE CREATED AUTHOR AUTHOR'S ORGANIZ ATION 05/16/2025 [facility] EPIC Care Teams [...] BE BASED ON THE PRIMARY CLINICAL RECORDS. [facility], [facility]. provides no warranty or guarantee of the accuracy or completeness of information in this document.
[2025-05-20] MEDS: BETAMETHASONE ACE/BETAMETHASONE SOD PHOS 30 MG/5 ML 12 MG IM (11:32)
[2025-05-20 11:35] VITALS: BP 134/64; PULSE 92
== END 2025-05-20 12:05 | disposition home or self-care (01) ==
LOC: FBCO 11:07 → FBC 11:09
PROVIDERS: Visit Provider Obstetrics & Gynecology
DX: O41.03X0 Oligohydramnios, third trimester, not applicable or unspecified (principal); Z3A.34 34 weeks gestation of pregnancy; O16.3 Unspecified maternal hypertension, third trimester
CPT/HCPCS: 59025; 76815; 96372; J0702

== ENCOUNTER 2025-05-22 11:06 | Outpatient (OUT) | payer OTHER, SELFPAY ==
--- OUTSIDE RECORDS SUMMARY | 2025-05-22 11:13 | XMS_ITS | CCD ---
Author Organization [facility] Care Team Providers Care Skin Fitter Name Role Phone ADEOLA COHEN Admitting Unavailable [...] Admitting Unavailable Cristal Miguel DO Attending Provider [phone] Unavailable Primary Care Provider UnavailJASPREET Tuttle Attending [...] source) Penicillins Drug allergy (disorder) 09-28-2014 [facility] (20 sources) Penicillins Drug Allergy 12-23-2024 [facility] (1 source) Penicillins Drug allergy (disorder) 02-22-2022 [facility] Repository Medications Current Medications Medication Drug Class(es) Dates Sig (Normalized) Sig (Original) Blood Glucose Monitoring Suppl (D-Care Glucometer) w/Device kit (13 sources) Start: 03-24-2025 End: 03-24-2026 Blood Glucose Monitoring Suppl (D-Care Glucometer) w/Device kit Indications: Gestational diabetes mellitus (GDM), antepartum, gestational diabetes method of control unspecified ([facility]) , Elevated glucose tolerance test 1 kit Daily Use four times daily to check FSBS. In the morning prior to breakfast & 1 hour after each meal for a total of 4times daily. 1 kit 03/24/2025 03/24/2026 Active doxylamine succinate 25 mg oral tablet (18 sources) Start: 03-05-2025 End: 04-04-2025 doxylamine (Unisom) 25 MG tablet Indications: Other insomnia Take 1 tablet (25 mg) by mouth as needed at bedtime for sleep 30 tablet 03/05/2025 Active isopropyl alcohol 0.7 ml/ml medicated pad (13 sources) Start: 03-24-2025 Alcohol Swabs (Alcohol Prep Pad) 70 % pads Indications: Gestational diabetes mellitus (GDM), antepartum, gestational diabetes method of control unspecified ([facility]) , Elevated glucose tolerance test Apply 1 [...] 25 mg supposito ry Discontinued 25 MG DE Q6H as needed for nausea and vomiting [...] Drug Class(es) Dates Sig (Normalized) Sig (Original) [id number] 200 actuat albuterol 0.09 mg/actuat metered dose [...] D2) 1,250 mcg (50,000 unit) Capsule Discontinued 07344 UNIT PO every week 4 December 27, [...] Name Value Interpretation Reference Range Facility US AMNIOTIC FLUID VOLUMEon 0 05-20-2025 [place] [address] Ultrasound Report Signed Patient: CHENTE GONZALEZ MR#: [id number] : 1995 Acct:[id number] Age/Sex: 29 / F ADM Date: 05/20/25 Loc: [facility] 250-[address]: Jaspreet Adams D.O. Ordering Physician: Jaspreet Adams D.O. Date of Service: 05/20/25 Procedure(s): US OB amniotic fluid vol Accession Number(s): [id number] cc: Jaspreet Adams D.O.; Physician,Non-Staff M.DPeggy The [place] [id number] Patient Name: CHENTE GONZALEZ MRN: [facility]:[id number] date: 1995 Sex: F Assigned Patient Location: [facility] Current Patient Location: US Accession/Order Number: [id number] Exam Date: 05/20/2025 11:10 Report Date: 05/20/2025 11:33 At the request of: JASPREET ADAMS DO Procedure: US OB amniotic fluid vol ULTRASOUND OB AMNIOTIC FLUID VOLUME CLINICAL DATA: Oligohydramnios COMPARISON: BPP 05/17/2025 There is a single live intrauterine gestation in cephalic presentation. The reported gestational age is 34 weeks 0 days. There is cardiac and somatic activity with heart rate of 142 bpm. The amniotic fluid volume on today's study measures 11.2 cm. This is in low-normal range. The largest pocket is 4.2 cm. US/US OB amniotic fluid vol IMPRESSION: LOW NORMAL AMNIOTIC FLUID VOLUME. Impression dictated by: Rahel Mae M.D. 05/20/2025 11:33 AM Dictation Location: [place] [address] Electronically authenticated by: [id number] Y Date: 05/20/2025 11:33 Dictated By: Rahel Mae M.D. Signed By: 05/20/25 1136 DD/ 1133 TD/TT: Filament Shaper: [facility] Radiology, Radiologi MD guilherme - 05/20/2025 [place] [address] Ultrasound Report Signed Patient: CHENTE GONZALEZ MR#: [id number] : 1995 Acct:[id number] Age/Sex: 29 / F ADM Date: 05/20/25 Loc: [place] [address]: Jaspreet Adams D.O. Ordering Physician: Jaspreet Adams D.O. Date of Service: 05/20/25 Procedure(s): US OB amniotic fluid vol Accession Number(s): [id number] cc: Jaspreet Adams D.O.; Physician,Non-Staff Alejandra The [place] [id number] Patient Name: CHENTE GONZALEZ MRN: [facility]:[id number] date: 1995 Sex: F Assigned Patient Location: [facility] Current Patient Location: US Accession/Order Number: [id number] Exam Date: 05/20/2025 11:10 Report Date: 05/20/2025 11:33 At the request of: JASPREET ADAMS DO Procedure: US OB amniotic fluid vol ULTRASOUND OB AMNIOTIC FLUID VOLUME CLINICAL DATA: Oligohydramnios COMPARISON: BP 05/17/2025 There is a single live intrauterine gestation in cephalic presentation. The reported gestational age is 34 weeks 0 days. There is cardiac and somatic activity with heart rate of 142 bpm. The amniotic fluid volume on today's study measures 11.2 cm. This is in low-normal range. The largest pocket is 4.2 cm. US/US OB amniotic fluid vol IMPRESSION: LOW NORMAL AMNIOTIC FLUID VOLUME. Impression dictated by: Rahel Mae M.D. 05/20/2025 11:33 AM Dictation Location: [place] [address] Electronically authenticated by: [id number] Y Date: 05/20/2025 11:33 Dictated By: Rahel Mae M.D. Signed By: 05/20/25 1136 DD/ 1133 TD/TT: Filament Shaper: [facility] Radiology Study observation (narrative) [facility] US AMNIOTIC FLUID VOLUMEOrde red By: Radiologist Radiology on 05-20-2025 [facility] Work Phone: US OB BPP W NON-STRESS on 05-19-2025 [place] [address] Ultrasound Report Signed Patient: CHENTE GONZALEZ MR#: [id number] : 1995 Acct:[id number] Age/Sex: 29 / F ADM Date: 05/19/25 Loc: [facility] 250-[address]: Jaspreet Adams D.O. Ordering Physician: Jaspreet Adams D.O. Date of Service: 05/19/25 Procedure(s): US OB BPP w non-stress Accession Number(s): [id number] cc: Jaspreet Adams D.O.; Physician,Non-Staff M.Tony The [place] [id number] Patient Name: CHENTE GONZALEZ MRN: [id number] date: 1995 Sex: F Assigned Patient Location: [facility] Current Patient Location: [facility] Accession/Order Number: [id number] Exam Date: 05/19/2025 10:15 Report Date: 05/19/2025 [...] Mae M.D. 05/19/2025 10:54 AM Dictation Location: [place] [address] Electronically authenticated by: [id number] Y Date: 05/19/2025 10:54 Dictated By: Rahel Mae M.D. Signed By: 05/19/25 1056 DD/ 1054 TD/TT: Filament Shaper: [facility] Radiology, Radiologi MD guilherme - 05/19/2025 [place] [address] Ultrasound Report Signed Patient: CHENTE GONZALEZ MR#: [id number] : 1995 Acct:[id number] Age/Sex: 29 / F ADM Date: 05/19/25 Loc: [facility] 250-[address]: Jaspreet Adams D.O. Ordering Physician: Jaspreet Adams D.O. Date of Service: 05/19/25 Procedure(s): US OB BPP w non-stress Accession Number(s): [id number] cc: Jaspreet Adams D.O.; Physician,Non-Staff Alejandra The [address] [address] Patient Name: CHENTE GONZALEZ MRN: [facility]:[id number] date: 1995 Sex: F Assigned Patient Location: [facility] Current Patient Location: [facility] Accession/Order Number: [id number] Exam Date: 05/19/2025 10:15 Report Date: 05/19/2025 [...] Mae M.D. 05/19/2025 10:54 AM Dictation Location: [place] [address] Electronically authenticated by: [id number] Y Date: 05/19/2025 10:54 Dictated By: Rahel Mae M.D. Signed By: 05/19/25 1056 DD/ 1054 TD/TT: Filament Shaper: [facility] Radiology Study observation (narrative) [facility] US OB BPP W NON-STRESS Ordered By: Radiologist Radiology on 05-19-2025 [facility] Work Phone: Urinalysis macro (dipstick) panel (U)on 05-15-2025 Bilirubin, UA Negative Negative - 4(70) +++ mg/dL [facility] Blood, UA Positive Negative - 50 Derick/mcL [facility] Comment on above: 1+ Clarity, UA Clear [facility] Color, UA Straw [facility] Glucose, UA Negative Negative - 2000(110) ++++ mg/dL [facility] Interpretation and review of laboratory results Abnormal [facility] Ketones, UA Negative Negative - 160(16) ++++ mg/dL [facility] Leukocytes, UA Negative Negative - 500+++ Julio/mcL [facility] Nitrite, UA Negative Negative - Positive [facility] pH, UA 6 5 - 9 [facility] Protein, UA Positive Negative - 2000(20) ++++ mg/dL [facility] Comment on above: 2+ Spec Grav, UA 1.02 1 - 1.03 [facility] Urobilinogen, UA 1.0 0.2 - 12 mg/dL [facility] US OB FOLLOW UP TRANSABDOMIN AL APPROACHon [...] UA Negative Negative - 4(70) +++ mg/dL [facility] Blood, UA Positive Negative - 50 Derick/mcL [facility] Comment on above: 1+ Clarity, UA Clear [facility] Color, UA Yellow [facility] Glucose, UA Negative Negative - 1999(110) ++++ mg/dL [facility] Interpretation and review of laboratory results Abnormal [facility] Ketones, UA Negative Negative - 160(16) ++++ mg/dL [facility] Leukocytes, UA Negative Negative - 500+++ Julio/mcL [facility] Nitrite, UA Negative Negative - Positive [facility] pH, UA 6 5 - 9 [facility] Protein, UA Positive Negative - 1999(20) ++++ mg/dL [facility] Healthcare Spec Grav, UA 1.01 1 - 1.03 [facility] Urobilinogen, UA 1.0 0.2 - 12 mg/dL [facility] Urinalysis macro (dipstick) panel (U)on 04-17-2025 Bilirubin, UA Negative Negative - 4(70) +++ mg/dL [facility] Blood, UA Positive Negative - 50 Derick/mcL [facility] Clarity, UA Clear [facility] Color, UA Yellow [facility] Glucose, UA Negative Negative - 1999(110) ++++ mg/dL [facility] Interpretation and review of laboratory results Abnormal [facility] Ketones, UA Negative Negative - 160(16) ++++ mg/dL [facility] Leukocytes, UA Positive Negative - 500+++ Julio/mcL [facility] Nitrite, UA Negative Negative - Positive [facility] pH, UA 6 5 - 9 [facility] Protein, UA Negative Negative - 1999(20) ++++ mg/dL [facility] Spec Grav, UA 1.015 1 - 1.03 [facility] Urobilinogen, UA 1.0 0.2 - 12 mg/dL [facility] Urinalysis macro (dipstick) panel (U)on 04-03-2025 Bilirubin, UA Negative Negative - 4(70) +++ mg/dL [facility] Blood, UA Positive Negative - 50 Derick/mcL [facility] Clarity, UA Clear [facility] Color, UA Yellow [facility] Glucose, UA Negative Negative - 1999(110) ++++ mg/dL [facility] Interpretation and review of laboratory results Abnormal [facility] Ketones, UA Negative Negative - 160(16) ++++ mg/dL [facility] Leukocytes, UA Negative Negative - 500+++ Julio/mcL [facility] Nitrite, UA Negative Negative - Positive [facility] pH, UA 6.5 5 - 9 [facility] Protein, UA Negative Negative - 2000(20) ++++ mg/dL [facility] Spec Grav, UA 1.015 1 - 1.03 [facility] Urobilinogen, UA 1.0 0.2 - 12 mg/dL [facility] GLUCOSE TOLERANCE 3 HOURon 0 03-21-2025 GLUCOSE TOLERANCE 3 HOUR High mg/dL [facility] Comment on above: GLU FAST 86 (<95) Co l: 03/21/25 0856 GLU 1HR 181H (<180) Col: 03/21/25 1002 GLU 2HR 162H (<155) Col: 03/21/25 1102 GLU 3HR 75 (<140) Col: 03/21/25 1202 Interpretation and review of laboratory results Abnormal [facility] US OB LIMITED 1+ FETUSESon 0 [...] II, MD, PHD at 21-Mar-2025 08:31:03 AM [facility] Normal Not Available Comment on above: Order Comment: US OB INCOMPLETE ANATOMY Estimated Date of Delivery: 07/01/25 Gestational Age as of 02/24/2025: 21w6d IGP,APTIMA HPV,AGE GDLNon AGE GDLN ACOG TESTING Note . [facility] Comment on above: TESTS RESULT FLAG UN ITS REF RANGE LAB Clinician Provided Cytology Information Source.............[employer] Other.............. No. of containers..01 ThinPrep Vial Age Brijesh MARTINI Mandie... FLAG LEGEND: L-Low Normal,H-High Normal,LL-Alert Low,HH-Alert High <-Panic Low,>-Panic High,A-Abnormal,AA-Critical Abnormal Performed at: 01 =[facility] [address] [place] [address] Mckenna Polanco MD, IGP, RFX APTIMA HPV ASCU Note . [facility] Comment on above: TESTS RESULT FLAG UN ITS REF RANGE LAB DIAGNOSIS: 02 NEGATIVE FOR INTRAEPITHELIAL LESION OR MALIGNANCY. Specimen adequacy: 02 Satisfactory for evaluation. No endocervical component is identified. Performed by: Andres Pineda, Non Profit Financial Controller ([facility]) . 02 Note: Note 02 The Pap [...] Low,>-Panic High,A-Abnormal,AA-Critical Abnormal Performed at: [address] [address] Mckenna Polanco MD, Performed at: =G - [facility] [id number] Skidder Operator: Mckenna Polanco MD, Phone: [phone] Performed at: [facility] [id number] Skidder Operator: Mckenna Polanco MD, Phone: [phone] [facility] GLUCOSE 1 HOURon 03-06-2025 Glucose [Mass/Vol] 141 mg/dL High NINF - 13 0 mg/dL [facility] Interpretation and review of laboratory results Abnormal [facility] Glucose tolerance, 1 houron 03-06-2025 Glucose Tolerance Test 1 Hour [facility] No Panel Informationon 03-06 [facility] Urinalysis macro (dipstick) panel (U)on 03-05-2025 Bilirubin, UA Negative Negative - 4(70) +++ mg/dL [facility] Blood, UA Negative Negative - 50 Derick/mcL [facility] Clarity, UA Clear [facility] Color, UA Yellow [facility] Glucose, UA Negative Negative - 2000(110) ++++ mg/dL [facility] Interpretation and review of laboratory results Normal [facility] Ketones, UA Negative Negative - 160(16) ++++ mg/dL [facility] Leukocytes, UA Negative Negative - 500+++ Julio/mcL [facility] Nitrite, UA Negative Negative - Positive [facility] pH, UA 6 5 - 9 [facility] Protein, UA Negative Negative - 2000(20) ++++ mg/dL [facility] Spec Grav, UA 1.01 1 - 1.03 [facility] Urobilinogen, UA 0.2 0.2 - 12 mg/dL [facility] US OB 14+ WEEKS ANATOMY SCAN on [...] II, MD, PHD at 20-Feb-2025 09:47:05 AM [facility] Normal Not Available Comment on above: Order Comment: US OB ANATOMY SINGLE W US OB CERVICAL LENGTH Estimated Date of Delivery: 07/01/25 Gestational Age as of 02/12/2025: 20w1d HBV surface Ag IA Qlon 02-01 Hepatitis B Surface Antigen Negative [facility] BOX TESTon 01-31-2025 BOX TEST SENT OUT [facility] BOX1 [facility] BOX2 01/31/[address] [facility] BOX [facility] Drug Screen, Urineon 025 Amphetamine/Methamphet amine Negative [facility] Barbiturates Negative [facility] Benzodiazepines Negative [facility] Cocaine Metabolite Negative [facility] Ecstasy Negative [facility] Methadone Negative [facility] Opiates Negative [facility] Oxycodone Negative [facility] Phencyclidine Negative [facility] Thc Marijuana, Urine Positive [facility] HIV 1+2 Ab+HIV1 p24 Ag IA Ql on 01-31-2025 HIV 1&2 AB/AG Non-Reactive [facility] Hemoglobin A1con 01-31-2025 HbA1c (Bld) [Mass fraction] 4.9 % 4.0 - 6.0 % [facility] No Panel Informationon 01-31 [facility] Rubella IGG immune statuson 01-31-2025 Rubella immune IgG 7.29 [facility] Type and screenon 01-31-2025 Abo/Rh(D) Negative [facility] No Panel Informationon 01-30 STAPHYLOCOCCUS EPIDERMIDIS, HAEMOLYTICUS, LUGDUNENSIS, SAPROPHYTICUS (URINA 0 [facility] STAPHYLOCOCCUS EPIDERMIDIS, HAEMOLYTICUS, LUGDUNENSIS, SAPROPHYTICUS (URINA Not detected [facility] URINARY TRACT INFECTION (HTR X)on 01-30-2025 [...] (GROUP A STREP) Not detected [facility] Urinalysis macro (dipstick) panel (U)on 01-29-2025 Bilirubin, UA Negative Negative - 4(70) +++ mg/dL [facility] Blood, UA Positive Negative - 50 Derick/mcL [facility] Comment on above: Trace-intact Clarity, UA Clear [facility] Color, UA Yellow [facility] Glucose, UA Negative Negative - 1999(110) ++++ mg/dL [facility] Interpretation and review of laboratory results Abnormal [facility] Ketones, UA Negative Negative - 160(16) ++++ mg/dL [facility] Leukocytes, UA Negative Negative - 500+++ Julio/mcL [facility] Nitrite, UA Negative Negative - Positive [facility] pH, UA 7 5 - 9 [facility] Protein, UA Trace Negative - 2000(20) ++++ mg/dL [facility] Spec Grav, UA 1.02 1 - 1.03 [facility] Urobilinogen, UA 1.0 0.2 - 12 mg/dL [facility] HCG ( test) Ql (U)o n 01-24-2025 Interpretation and review of laboratory results Abnormal [facility] Preg Test, Ur Positive Negative [facility] US OB LIMITED 1+ FETUSESon 0 [...] II, MD, PHD at 27-Jan-2025 10:23:04 AM [facility] Normal Not Available Comment on above: Order Comment: US OB TRANSVAGINAL No LMP recorded. Urinalysis macro (dipstick) panel (U)on 01-24-2025 Bilirubin, UA Negative Negative - 4(70) +++ mg/dL [facility] Blood, UA Positive Negative - 50 Derick/mcL [facility] Comment on above: Trace-Intact Clarity, UA Clear [facility] Color, UA Yellow [facility] Glucose, UA Negative Negative - 1999(110) ++++ mg/dL [facility] Interpretation and review of laboratory results Abnormal [facility] Ketones, UA Negative Negative - 160(16) ++++ mg/dL [facility] Leukocytes, UA Negative Negative - 500+++ Julio/mcL [facility] Nitrite, UA Negative Negative - Positive [facility] pH, UA 7 5 - 9 [facility] Protein, UA Negative Negative - 1999(20) ++++ mg/dL [facility] Spec Grav, UA 1.02 1 - 1.03 [facility] Urobilinogen, UA 0.2 0.2 - 12 mg/dL [facility] Urine Cultureon 01-06-2025 Bacteria identified Cx Nom (U) No Growth 2 Days PERFORMED BY: [facility] [address] [place] [address] PATHOLOGIST WREATH MAKER RAHUL HOLCOMB M.D. Normal [facility] Comment on above: Performed By: #### C UU #### [facility] [address] Amphetamine Screen Ql (U)Ord ered By: Denny Azevedo on 08-11-2023 Amphetamines Ql (U) Negative Negative [facility] Amylase [Enzymatic activity/ volume] in Serum or PlasmaOrdered By: Denny Azevedo on 08-11-2023 Amylase [Catalytic activity/Vol] 32 U/L 29-103 [facility] Aspartate aminotransferase [ Enzymatic activity/volume] in Serum or PlasmaOrdered By: Denny Azevedo on 08-11-2023 AST [Catalytic activity/Vol] 24 U/L 13-39 [facility] Automated erythrocytes count in urine sediment (number/area)Ordered By: Denny Azevedo on 08-11-2023 RBC Auto (Urine sed) [#/Area] 10-19 [HPF] 0-4 [facility] Automated leukocytes count i n urine sediment (number/area)Ordered By: Denny Azevedo on 08-11-2023 WBC Auto (Urine sed) [#/Area] 3-4 [HPF] 0-4 [facility] Barbiturates [Presence] in U rine by Screen methodOrdered By: Denny Azevedo on 08-11-2023 Barbiturates Screen Ql (U) Negative Negative [facility] Basophils Auto (Bld) [#/Vol] Ordered By: Denny Azevedo on 08-11-2023 Basophils (Bld) [#/Vol] 0.1 10*3/uL 0.0-0.2 [facility] Basophils/100 WBC Auto (Bld) Ordered By: Denny Azevedo on 08-11-2023 Basophils/100 WBC (Bld) 0.9 % . [facility] Benzodiazepines Screen Ql (U )Ordered By: Denny Azevedo on 08-11-2023 Benzodiazepines Ql (U) Negative Negative [facility] Benzoylecgonine [Presence] i n Urine by Screen methodOrdered By: Denny Azevedo on 08-11-2023 Benzoylecgonine Screen Ql (U) Negative Negative [facility] Bilirubin Test strip Ql (U)O rdered By: Denny Azevedo on 08-11-2023 Bilirubin Ql (U) Negative Negative [facility] Cannabinoids [Presence] in U rine by Screen methodOrdered By: Denny Azevedo on 08-11-2023 Cannabinoids Screen Ql (U) Positive Negative [facility] Comment on above: These are unconfirme d results and should not be used for legal purposes. Drug Cut-Off Concentration: AMPH 1000 ng/mL THOMAS 200 ng/mL ARTHUR 200 ng/mL COCM 300 ng/mL OP 300 ng/mL PCP 25 ng/mL THC 20 ng/mL Carbon dioxide, total [Moles /volume] in Serum or PlasmaOrdered By: Denny Azevedo on 08-11-2023 CO2 [Moles/Vol] 17.8 mmol/L 21.0-31.0 [facility] Chloride [Moles/volume] in S marline or PlasmaOrdered By: Denny Azevedo on 08-11-2023 Chloride [Moles/Vol] 108 mmol/L 98-107 [facility] Color Auto (U)Ordered By: French Azevedo on 08-11-2023 Color (U) Yellow Yellow [facility] Creatine kinase [Enzymatic a ctivity/volume] in Serum or PlasmaOrdered By: Denny Azevedo on 08-11-2023 CK [Catalytic activity/Vol] 225 U/L 30-223 [facility] Creatinine [Mass/volume] in Serum or PlasmaOrdered By: Denny Azevedo on 08-11-2023 Creatinine [Mass/Vol] 0.68 mg/dL 0.60-1.20 [facility] Eosinophils Auto (Bld) [#/Vo l]Ordered By: Denny Azevedo on 08-11-2023 Eosinophils (Bld) [#/Vol] 0.1 10*3/uL 0.0-0.45 [facility] Eosinophils/100 WBC Auto (Bl d)Ordered By: Denny Azevedo on 08-11-2023 Eosinophils/100 WBC (Bld) 1.3 % . [facility] Erythrocyte distribution wid th Auto (RBC) [Ratio]Ordered By: Denny Azevedo on 08-11-2023 Erythrocyte distribution width (RBC) [Ratio] 12.9 % 11.9-15.3 [facility] Ethanol [Mass/volume] in Ser um or PlasmaOrdered By: Denny Azevedo on 08-11-2023 Ethanol [Mass/Vol] mg/dL [facility] Ethanol [Mass/Vol] TNP [facility] Comment on above: Test not performed Glucose [Mass/volume] in Ser um or PlasmaOrdered By: Denny Azevedo on 08-11-2023 Glucose [Mass/Vol] 109 mg/dL 70-100 [facility] Comment on above: ADA recommended refe rence rangeRandom Glucose Reference Range is dependent on time and content of last meal. Glucose of more than 200 mg/dL in a nonstressed, ambulatory subject supports the diagnosis of Diabetes Mellitus. HCG ( test) IA.rapi d Ql (U)Ordered By: Denny Azevedo on 08-11-2023 HCG ( test) Ql (U) Negative [facility] Hematocrit Auto (Bld) [Volum e fraction]Ordered By: Denny Azevedo on 08-11-2023 Hematocrit (Bld) [Volume fraction] 40.4 % 34.0-46.4 [facility] Hemoglobin [Mass/volume] in BloodOrdered By: Denny Azevedo on 08-11-2023 Hemoglobin (Bld) [Mass/Vol] 14.2 g/dL 11.8-15.4 [facility] INR in Platelet poor plasma by Coagulation assayOrdered By: Denny Azevedo on 08-11-2023 INR Coag (PPP) [Relative time] 1.0 {INR} [facility] Comment on above: INR Therapeutic Rang [...] on 08-11-2023 Ketones (U) [Mass/Vol] Trace Negative [facility] Laboratory - UrinalysisOrder ed By: Denny Azevedo on 08-11-2023 Hyaline casts LM Ql (Urine sed) 0-8 [LPF] 0-8 [facility] Leukocytes [#/volume] correc sonja for nucleated erythrocytes in Blood by Automated counOrdered By: Denny Azevedo on 08-11-2023 WBC corrected for nucl RBC Auto (Bld) [#/Vol] 7.9 10*3/uL 3.8-11.6 [facility] Lipase [Enzymatic activity/v olume] in Serum or PlasmaOrdered By: Denny Azevedo on 08-11-2023 Lipase [Catalytic activity/Vol] 13.0 U/L 11.0-82.0 [facility] Lymphocytes Auto (Bld) [#/Vo l]Ordered By: Denny Azevedo on 08-11-2023 Lymphocytes (Bld) [#/Vol] 1.8 10*3/uL 1.00-4.8 [facility] Lymphocytes/100 WBC Auto (Bl d)Ordered By: Denny Azevedo on 08-11-2023 Lymphocytes/100 WBC (Bld) 23.1 % . [facility] MCH Auto (RBC) [Entitic mass ]Ordered By: Denny Azevedo on 08-11-2023 MCH (RBC) [Entitic mass] 30.4 pg 24.7-34.3 [facility] MCHC Auto (RBC) [Mass/Vol]Or dered By: Denny Azevedo on 08-11-2023 MCHC (RBC) [Mass/Vol] 35.1 g/dL 32.0-35.0 [facility] MCV Auto (RBC) [Entitic vol] Ordered By: Denny Azevedo on 08-11-2023 MCV (RBC) [Entitic vol] 86.7 fL 80-100 [facility] Monocyte distribution width [Entitic volume] in Blood by AutomatedOrdered By: Denny Azevedo on 08-11-2023 Monocyte distribution width Auto (Bld) [Entitic vol] 17.99 % 0.00-20.00 [facility] Monocytes Auto (Bld) [#/Vol] Ordered By: Denny Azevedo on 08-11-2023 Monocytes (Bld) [#/Vol] 0.5 10*3/uL 0.0-0.8 [facility] Monocytes/100 WBC Auto (Bld) Ordered By: Denny Azevedo on 08-11-2023 Monocytes/100 WBC (Bld) 6.9 % . [facility] Neutrophils Auto (Bld) [#/Vo l]Ordered By: Denny Azevedo on 08-11-2023 Neutrophils (Bld) [#/Vol] 5.4 10*3/uL 1.8-7.7 [facility] Neutrophils/100 WBC Auto (Bl d)Ordered By: Denny Azevedo on 08-11-2023 Neutrophils/100 WBC (Bld) 67.8 % . [facility] Nitrite Test strip Ql (U)Ord ered By: Denny Azevedo on 08-11-2023 Nitrite Ql (U) Negative Negative [facility] No Panel InformationOrdered By: Denny Azevedo on 08-11-2023 Estimated GFR (CKD-EPI) > 60.0 mL/Min [facility] Creatinine Clearance (Chem 138.27 [facility] Nucleated erythrocytes [Pres ence] in Blood by Automated countOrdered By: Denny Azevedo on 08-11-2023 Nucleated RBC Auto Ql (Bld) 0.1 /100{WBC} 0-0.5 [facility] Opiates [Presence] in Urine by Screen methodOrdered By: Denny Azevedo on 08-11-2023 Opiates Screen Ql (U) Negative Negative [facility] Phencyclidine Screen Ql (U)O rdered By: Denny Azevedo on 08-11-2023 Phencyclidine Ql (U) Negative Negative [facility] Platelet mean volume Auto (B ld) [Entitic vol]Ordered By: Denny Azevedo on 08-11-2023 Platelet mean volume (Bld) [Entitic vol] 7.7 fL 6.3-10.7 [facility] Platelets Auto (Bld) [#/Vol] Ordered By: Denny Azevedo on 08-11-2023 Platelets (Bld) [#/Vol] 307 10*3/uL 150-450 [facility] Potassium [Moles/volume] in Serum or PlasmaOrdered By: Denny Azevedo on 08-11-2023 Potassium [Moles/Vol] 3.3 mmol/L 3.5-5.1 [facility] Protein Auto test strip (U) [Mass/Vol]Ordered By: Denny Azevedo on 08-11-2023 Protein (U) [Mass/Vol] 30 mg/dL Negative [facility] Prothrombin time (PT)Ordered By: Denny Azevedo on 08-11-2023 PT Coag (PPP) [Time] 12.1 s 9.0-12.9 [facility] Comment on above: A hematocrit value g reater than 55% may lead to inaccurate results in coagulation testing. Patients having hematocrit values >55% require a special collection tube for coagulation studies. Please contact the laboratory at [phone] for redraw instructions. RBC Auto (Bld) [#/Vol]Ordere d By: Denny Azevedo on 08-11-2023 RBC (Bld) [#/Vol] 4.66 10*6/uL 3.60-5.00 [facility] Serum or plasma anion gap de terminationOrdered By: Denny Azeveod on 08-11-2023 Anion gap [Moles/Vol] 15.5 mmol/L 6.0-15.0 [facility] Sodium [Moles/volume] in Ser um or PlasmaOrdered By: Denny Azevedo on 08-11-2023 Sodium [Moles/Vol] 138 mmol/L 136-145 [facility] Specific gravity Auto test s trip (U) [Rel density]Ordered By: Denny Azevedo on 08-11-2023 Specific gravity (U) [Rel density] 1.026 1.001-1.03 0 [facility] Squamous epithelial cells de tection in urine sediment by light microscopyOrdered By: Denny Azevedo on 12-15-2023 Epithelial cells.squamous LM Ql (Urine sed) 0-1 [HPF] 0-2 [facility] Urea nitrogen [Mass/volume] in Serum or PlasmaOrdered By: Denny Azevedo on 08-11-2023 Urea nitrogen [Mass/Vol] 11 mg/dL 7-25 [facility] Urine bacteria detection by automated methodOrdered By: Denny Azevedo on 08-11-2023 Bacteria Auto Ql (U) None seen None Seen [facility] Urine clarity by refractomet ry automatedOrdered By: Denny Azevedo on 08-11-2023 Clarity Refractometry automated (U) Clear Clear [facility] Urine glucose measurement by automated test strip (mass/volume)Ordered By: Denny Azevedo on 08-11-2023 Glucose Auto test strip (U) [Mass/Vol] Normal mg/dL Normal [facility] Urine hemoglobin detection b y automated test stripOrdered By: Denny Azevedo on 08-11-2023 Hemoglobin Auto test strip Ql (U) 2+ Negative [facility] Urine leukocyte esterase det ection by automated test stripOrdered By: Denny Azevedo on 08-11-2023 Leukocyte esterase Auto test strip Ql (U) Negative Negative [facility] Urobilinogen Auto test strip (U) [Mass/Vol]Ordered By: Denny Azevedo on 08-11-2023 Urobilinogen (U) [Mass/Vol] Normal mg/dL Normal [facility] WBC Auto (Bld) [#/Vol]Ordere d By: Denny Azevedo on 08-11-2023 WBC (Bld) [#/Vol] 7.9 10*3/uL 3.8-11.6 [facility] pH Auto test strip (U)Ordere d By: Denny Azevedo on 08-11-2023 pH (U) 6.5 [pH] 5.0-9.0 [facility] BILIRUBIN CONJUGATED (DIRECT )on 03-03-2022 BILI, CONJUGATED 0.3 mg/dL Critically high 0.0-0.2 [facility] Comment on above: Performed By: #### D FERNANDEZ #### [facility] [address] [address] [address] Yaritza Bojorquez CBC AUTO DIFFon 03-03-2022 BASO # 0.1 103/ul Normal 0.0-0.1 [facility] Comment on above: Performed By: #### C BC #### [facility] [address] [place] [address] Dr. Yaritza Bojorquez Basophils/100 WBC (Bld) 0.5 % Normal 0.2-2.0 [facility] Comment on above: Performed By: #### C BC #### [facility] [address] [place] [address] Dr. Yaritza Bojorquez EO # 0.0 103/ul Normal 0.0-0.7 [facility] Comment on above: Performed By: #### C BC #### [facility] [address] [place] [address] Dr. Yaritza Bojorquez Eosinophils/100 WBC (Bld) 0.1 % Critically low 0.9-7.0 [facility] Comment on above: Performed By: #### C BC #### [facility] [address] [place] [address] Dr. Yaritza Bojorquez Erythrocyte distribution width (RBC) [Ratio] 12.1 % Normal 11.0-15.0 [facility] Comment on above: Performed By: #### C BC #### [facility] [address] [place] [address] Dr. Yaritza Bojorquez Hematocrit (Bld) [Volume fraction] 45.0 % Normal 36.0-48.0 [facility] Comment on above: Performed By: #### C BC #### [facility] [address] [place] [address] Dr. Yaritza Bojorquez Hemoglobin (Bld) [Mass/Vol] 16.5 g/dL Critically high 12.0-16.0 [facility] Comment on above: Performed By: #### C BC #### [facility] [address] [place] [address] Dr. Yaritza Bojorquez IG # 0.05 10e3/ul Critically high 0.00-0.03 [facility] Comment on above: Performed By: #### C BC #### [facility] [address] [place] [address] Dr. Yaritza Bojorquez IG % 0.3 % Normal 0.0-0.5 [facility] Comment on above: Performed By: #### C BC #### [facility] [address] [place] [address] Dr. Yaritza Bojorquez LYMPH # 3.2 103/ul Normal 1.2-3.8 [facility] Comment on above: Performed By: #### C BC #### [facility] [address] [place] [address] Dr. Yaritza Bojorquez Lymphocytes/100 WBC (Bld) 21.6 % Normal 20.5-60.0 [facility] Comment on above: Performed By: #### C BC #### [facility] [address] [place] [address] Dr. Yaritza Bojorquez MANUAL DIFF REQ NO Normal [facility] Comment on above: Performed By: #### C BC #### [facility] [address] [place] [address] Dr. Yaritza Bojorquez MCH (RBC) [Entitic mass] 30.7 pg Normal 26.7-34.0 [facility] Comment on above: Performed By: #### C BC #### [facility] [address] [place] [address] Dr. Yaritza Bojorquez MCHC (RBC) [Mass/Vol] 36.7 g/dL Critically high 29.9-35.2 [facility] Comment on above: Performed By: #### C BC #### [facility] [address] [place] [address] Dr. Yaritza Bojorquez MCV (RBC) [Entitic vol] 83.8 fL Normal 81.0-99.0 [facility] Comment on above: Performed By: #### C BC #### [facility] [address] [place] [address] Dr. Yaritza Bojorquez MONO # 0.8 103/ul Normal 0.3-0.8 [facility] Comment on above: Performed By: #### C BC #### [facility] [address] [place] [address] Dr. Yaritza Bojorquez Monocytes/100 WBC (Bld) 5.3 % Normal 1.7-12.0 [facility] Comment on above: Performed By: #### C BC #### [facility] [address] [address] [address] Yaritza Bojorquez NEUT # 10.5 103/ul Critically high 1.4-6.5 [facility] Comment on above: Performed By: #### C BC #### [facility] [address] [address] [address] Yaritza Bojorquez Neutrophils/100 WBC (Bld) 72.2 % Normal 43.0-75.0 [facility] Comment on above: Performed By: #### C BC #### [facility] [address] [place] [address] Dr. Yaritza Bojorquez Platelet mean volume (Bld) [Entitic vol] 10.0 fL Normal 9.5-13.5 [facility] Comment on above: Performed By: #### C BC #### [facility] [address] [place] [address] Dr. Yaritza Bojorquez PLT 450 103/ul Normal 150-450 [facility] Comment on above: Performed By: #### C BC #### [facility] [address] [place] [address] Dr. Yaritza Bojorquez RBC 5.37 106/ul Normal 4.20-5.40 [facility] Comment on above: Performed By: #### C BC #### [facility] [address] [place] [address] Dr. Yaritza Bojorquez WBC 14.6 103/ul Critically high 4.0-11.0 [facility] Comment on above: Performed By: #### C BC #### [facility] [address] [place] [address] Dr. Yaritza Bojorquez CULTURE URINEon 03-03-2022 CULTURE URINE Culture Observations : LIGHT GROWTH OF MIXED GENITAL KRYSTAL. NO POTENTIAL PATHOGENS SEEN. Normal [facility] Comment on above: Performed By: #### U RCX #### [facility] [address] [place] [address] Dr. Yaritza Bojorquez ER URINE PROFILEon Bilirubin Ql (U) Negative Normal NEGATIVE [facility] Comment on above: Performed By: #### Sandoval URIBE UMICRO #### [facility] [address] [place] [address] Dr. Yaritza Bojorquez Clarity (U) CLEAR Normal CLEAR [facility] Comment on above: Performed By: #### Sandoval URIBE UMICRO #### [facility] [address] [place] [address] Dr. Yaritza Bojorquez Color (U) DK. YELLOW Normal YELLOW [facility] Comment on above: Performed By: #### Sandoval URIBE UMICRO #### [facility] [address] [place] [address] Dr. Yaritza Bojorquez ERUAHD A micrscopic examina tion will be performed if indicated. Normal [facility] Comment on above: Performed By: #### Sandoval URIBE UMICRO #### [facility] [address] [place] [address] Dr. Yaritza Bojorquez Glucose Ql (U) Negative Normal NEGATIVE [facility] Comment on above: Performed By: #### Sandoval URIBE UMICRO #### [facility] [address] [place] [address] Dr. Yaritza Bojorquez Hemoglobin Ql (U) Negative Normal NEGATIVE [facility] Comment on above: Performed By: #### Sandoval URIBE UMICRO #### [facility] [address] [place] [address] Dr. Yaritza Bojorquez Ketones Ql (U) >=80 Abnormal NEGATIVE [facility] Comment on above: Performed By: #### ALBA MAEICRO #### [facility] [address] [place] [address] Dr. Yaritza Bojorquez LEUKOCYTES TRACE Abnormal NEGATIVE [facility] Comment on above: Performed By: #### ALBA MAEICRO #### [facility] [address] [place] [address] Dr. Yaritza Bojorquez Nitrite Ql (U) Negative Normal NEGATIVE [facility] Comment on above: Performed By: #### Sandoval URIBE UMICRO #### [facility] [address] [place] [address] Dr. Yaritza Bojorquez pH (U) 6.5 [pH] Normal 5-9 [facility] Comment on above: Performed By: #### TAYLA MAE #### [facility] [address] [place] [address] Dr. Yaritza Bojorquez Protein (U) [Mass/Vol] 100 mg/dL Abnormal NEGAT TORSTEN/ TRACE [facility] Comment on above: Performed By: #### TAYLA MAE #### [facility] [address] [place] [address] Dr. Yaritza Bojorquez SPEC GRAVITY 1.025 Normal 1.005-<=1. 025 [facility] Comment on above: Performed By: #### TAYLA MAE #### [facility] [address] [place] [address] Dr. Yaritza Bojorquez UR MICRO IND INDICATED Normal [facility] Comment on above: Performed By: #### TAYLA MAE #### [facility] [address] [place] [address] Dr. Yaritza Bojorquez Urobilinogen Qn (U) 4 {Emir'U}/dL Abnormal 0.2 - 1.0 [facility] Comment on above: Performed By: #### TAYLA MAE #### [facility] [address] [place] [address] Dr. Yaritza Bojorquez PROF 14(COMP METB)on 022 Albumin [Mass/Vol] 4.5 g/dL Normal 3.4-5.0 [facility] Comment on above: Performed By: #### C MP #### [facility] [address] [place] [address] Dr. Yaritza Bojorquez Albumin/Globulin [Mass ratio] 1.2 {ratio} Normal [facility] Comment on above: Performed By: #### C MP #### [facility] [address] [place] [address] Dr. Yaritza Bojorquez ALP [Catalytic activity/Vol] 48 U/L Normal 46-116 [facility] Comment on above: Performed By: #### C MP #### [facility] [address] [place] [address] Dr. Yaritza Bojorquez ALT [Catalytic activity/Vol] 25 U/L Normal 14-59 [facility] Comment on above: Performed By: #### C MP #### [facility] [address] [place] [address] Dr. Yaritza Bojorquez Anion gap [Moles/Vol] 17.8 mmol/L Normal [facility] Comment on above: Performed By: #### C MP #### [facility] [address] [address] [address] Yaritza Bojorquez AST [Catalytic activity/Vol] 11 U/L Critically low 15-37 [facility] Comment on above: Performed By: #### C MP #### [facility] [address] [place] [address] Dr. Yaritza Bojorquez Bilirubin [Mass/Vol] 1.4 mg/dL Critically high 0.2-1.0 [facility] Comment on above: Performed By: #### C MP #### [facility] [address] [place] [address] Dr. Yaritza Bojorquez Calcium [Mass/Vol] 9.3 mg/dL Normal 8.5-10.1 [facility] Comment on above: Performed By: #### C MP #### [facility] [address] [place] [address] Dr. Yaritza Bojorquez Chloride [Moles/Vol] 98 mmol/L Normal 98-107 [facility] Comment on above: Performed By: #### C MP #### [facility] [address] [place] [address] Dr. Yaritza Bojorquez CO2 [Moles/Vol] 19.1 mmol/L Critically low 21.0-32.0 [facility] Comment on above: Performed By: #### C MP #### [facility] [address] [place] [address] Dr. Yaritza Bojorquez Creatinine [Mass/Vol] 0.95 mg/dL Normal 0.55-1.02 [facility] Comment on above: Performed By: #### C MP #### [facility] [address] [place] [address] Dr. Yaritza Bojorquez EGFR-AF BERMUDIAN >60 Normal >=60 [facility] Comment on above: Performed By: #### C MP #### [facility] [address] [address] [address] Yaritza Bojorquez EGFR-NON AF BERMUDIAN >60 Normal >=60 [facility] Comment on above: Performed By: #### C MP #### [facility] [address] [address] [address] Yaritza Bojorquez Globulin (S) [Mass/Vol] 3.6 g/dL Normal [facility] Comment on above: Performed By: #### C MP #### [facility] [address] [address] [address] Yaritza Bojorquez Glucose [Mass/Vol] 138 mg/dL Critically high 74-106 T [facility] Comment on above: Performed By: #### C MP #### [facility] [address] [address] [address] Yaritza Bojorquez Potassium [Moles/Vol] 2.9 mmol/L Critically low 3.5-5.1 [facility] Comment on above: Performed By: #### C MP #### [facility] [address] [address] [address] Yaritza Bojorquez Protein [Mass/Vol] 8.1 g/dL Normal 6.4-8.2 [facility] Comment on above: Performed By: #### C MP #### [facility] [address] [address] [address] Yaritza Bojorquez Sodium [Moles/Vol] 132 mmol/L Critically low 136-145 Th [facility] Comment on above: Performed By: #### C MP #### [facility] [address] [address] [address] Yaritza Bojorquez Urea nitrogen [Mass/Vol] 8.0 mg/dL Normal 7.0-18.0 [facility] Comment on above: Performed By: #### C MP #### [facility] [address] [address] [address] Yaritza Bojorquez Urea nitrogen/Creatinine [Mass ratio] 8.4 mg/mg Normal [facility] Comment on above: Performed By: #### C MP #### [facility] [address] [place] [address] Dr. Yaritza Bojorquez URINE MICROSCOPIC ONLYon BACTERIA MODERATE Abnormal NONE SEEN [facility] Comment on above: Performed By: #### Sandoval URIBE, UMICRO #### [facility] [address] [place] [address] Dr. Yaritza Bojorquez Bacteria identified Cx Nom (U) INDICATED Normal [facility] Comment on above: Performed By: #### Sandoval URIBE, UMICRO #### [facility] [address] [place] [address] Dr. Yaritza Bojorquez CAST NONE SEEN Normal NONE SEEN [facility] Comment on above: Performed By: #### Sandoval URIBE UMICRO #### [facility] [address] [place] [address] Dr. Yaritza Bojorquez Crystals LM Nom (Urine sed) NONE SEEN Normal NONE SEEN [facility] Comment on above: Performed By: #### Sandoval URIBE UMICRO #### [facility] [address] [place] [address] Dr. Yaritza Bojorquez Epithelial cells LM Ql (Urine sed) MANY Abnormal NONE SEEN /RARE [facility] Comment on above: Performed By: #### Sandoval URIBE UMICRO #### [facility] [address] [place] [address] Dr. Yaritza Bojorquez MUCOUS SMALL Abnormal NONE SEEN [facility] Comment on above: Performed By: #### Sandoval URIBE UMICRO #### [facility] [address] [place] [address] Dr. Yaritza Bojorquez RBC 2-5 Abnormal 0-2 [facility] Comment on above: Performed By: #### Sandoval URIBE UMICRO #### [facility] [address] [place] [address] Dr. Yaritza Bojorquez WBC 5-10 Abnormal NONE SEEN [facility] Comment on above: Performed By: #### Sandoval URIBE UMICRO #### [facility] [address] [place] [address] Dr. Yaritza Bojorquez XR ABD FLAT UP_PA [...] MACK SAMUELS Date: 2022-03-03 07:46 Normal [facility] SARS-CoV-2 (COVID-19) RNA KOLE+probe Ql (Unsp spec) Not detected Normal NOT DETECTED [facility] Comment on above: Result Comment: This test is not yet approved or cleared by the [place] FDA. When there are no FDA-approved or cleared tests available, and other criteria are met, FDA can make tests available under an emergency access mechanism called an Emergency Use Authorization (EUA). The EUA for this test is supported by the [employer] Technician of Health and Human Service's (HHS's) declaration [...] consistent with SARS-CoV-2. Performed By: #### C [facility] #### [facility] [address] [place] [address] Dr. Yaritza Bojorquez Provider Note - ED [...] No Current Medications SIGNIFICANT EVENTS: Immunizations Description:Tdap SECURITIES CLERK: Is : no(1) Is : no(1) RESULTS/VITAL SIGNS VITAL SIGNS: T PRBP SpO2O2(LPM) %FiO2 Method 22-Jun-2019 18:54:[id number] 99 room air, no respiratory support 22-Jun-2019 18:07:[id number] 97 room air, no respiratory support MEDICAL [...] - Final Verification: completed Procedure performed by: Facilitator(s): none Findings: grossly normal anatomy Specimen: no [...] Triage - ED 22-Jun-2019 18:07 Normal [facility] Risk Screen - Adult Emergenc yon 06-22-2019 Risk Screen - Adult Emergency Preferred Language: Preferred Language: Preferred Language for Discussing Health Care (patient/designee)[place]izean Advanced Directives: Advance Directive/DNRno Family Violence Adult: Abuse Screen: Are you or have you been threatened or abused physically, emotionally, or sexually by anyoneno Learning Assessment (Patient): Learning Assessment (Patient): Patient is Able to be Assessed for Learningyes Factors Influencing Readiness to Learnacuteness of illness Factors that Impact Ability to Learnnone Devices/Methods Used to Communicatenone Learning Preferencesaudio Cultural Considerationsnone Developmental Considerationsnone Adventist Considerationsnone Learning Assessment (Other Learner): Learning Assessment (Other Learner): Other learner availableno Pressure Injury/TB/Substance: Pressure Injury: Pressure Injury Present on Admissionno Do you have a coughno Substance Use Current or Former Historynever: Cigarette/Tobacco, e-Cigarette/Vaping, Alcohol, Street Drugs Admission Risk Screen: Significant IndicatorsComplete CAGE: CAGE: Is this an injured patient at a Trauma Center ([facility]/[place]): yes C: Have you ever felt you needed to Cut down on your drinking: no A: Have people Annoyed you by criticizing your drinking: no G: Have you ever felt Guilty about drinking: no E: Have you ever felt you needed a drink first thing in the morning (Eye-pediatric orthodontist) to steady your nerves or to get rid of hangover: no Electronic Signatures: Mehdi Chaney (RN) (Signed 22-Jun-2019 18:11) Authored: Preferred Language, Advanced Directives, Family Violence Adult, Learning Assessment (Patient), Learning Assessment (Other Learner), Pressure Injury/TB/Substance, CAGE Last Updated: 22-Jun-2019 18:11 by Mehdi Chaney (RN) [facility] Triage - EDon 06-22-2019 Triage - [...] than 3 weeks: no Travel outside of [facility] [place]: no Allergies: yes Last menstrual period: 24-May-2019 [...] Accompanied By: self Language: Spoken Language Preferred: [place] PRIMARY ASSESSMENT CHENTE GONZALEZ's primary assessment is Within Normal Limits. The airway is open and patent. Breathing spontaneous and unlabored with clear breath sounds bilaterally. Circulation is normal with good peripheral pulses. Skin is warm and dry and color is normal for race. Past Medical History: Past Medical History Reviewedyes Electronic Signatures: Nitin Singer (AYALA) (Signed 22-Jun-2019 18:40) Authored: Triage Mehdi Chaney (MALU) (Signed 22-Jun-2019 18:10) Authored: Triage, Past Medical History Last Updated: 22-Jun-2019 18:40 by Nitin Singer (AYALA) Normal [facility] Vital Signs Date Time Vital Sign Value Performing Clinician Facility 05-15-2025 10:03-0400 Body mass index (BMI) [Ratio] 36.08 kg/m2 Deyanira KABA Work Phone: [facility] 05-15-2025 10:03-0400 Body weight 98.34 kg Deyanira Juan PA Work Phone: [facility] 05-15-2025 10:03-0400 Diastolic blood pressure 78 mm[Hg] Deyanira Middle[place] PA Work Phone: [facility] 05-15-2025 10:03-0400 Systolic blood pressure 140 mm[Hg] Deyanira [place] PA Work Phone: [facility] 04-30-2025 15:05-0400 Body mass index (BMI) [Ratio] 35.01 kg/m2 Jaspreet Angie DO Work Phone: [facility] 04-30-2025 15:05-0400 Body weight 95.44 kg Jaspreet Angie DO Work Phone: [facility] 04-30-2025 15:05-0400 Diastolic blood pressure 70 mm[Hg] Jaspreet Angie DO Work Phone: [facility] 04-30-2025 15:05-0400 Systolic blood pressure 120 mm[Hg] Jaspreet Angie DO Work Phone: [facility] 04-17-2025 10:41-0400 Body mass index (BMI) [Ratio] 33.91 kg/m2 Deyanira Juan PA Work Phone: [facility] 04-17-2025 10:41-0400 Body weight 92.44 kg Deyanira Juan PA Work Phone: [facility] 04-17-2025 10:41-0400 Diastolic blood pressure 86 mm[Hg] Deyanira Juan PA Work Phone: [facility] 04-17-2025 10:41-0400 Systolic blood pressure 134 mm[Hg] Deyanira Juan PA Work Phone: [facility] 04-03-2025 10:50-0400 Body mass index (BMI) [Ratio] 33.35 kg/m2 Jaspreet Angie DO Work Phone: [facility] 04-03-2025 10:50-0400 Body weight 90.9 kg Jaspreet Angie DO Work Phone: [facility] 04-03-2025 10:50-0400 Diastolic blood pressure 72 mm[Hg] Jaspreet Angie DO Work Phone: [facility] 04-03-2025 10:50-0400 Systolic blood pressure 130 mm[Hg] Jaspreet Angie DO Work Phone: [facility] 03-05-2025 11:16-0400 Body mass index (BMI) [Ratio] 31.62 kg/m2 Jaspreet Angie DO Work Phone: [facility] 03-05-2025 11:16-0400 Body weight 86.18 kg Jaspreet Angie DO Work Phone: [facility] 03-05-2025 11:16-0400 Diastolic blood pressure 78 mm[Hg] Jaspreet Angie DO Work Phone: [facility] 03-05-2025 11:16-0400 Systolic blood pressure 128 mm[Hg] Jaspreet Angie DO Work Phone: [facility] 01-29-2025 10:57-0400 Body mass index (BMI) [Ratio] 31.53 kg/m2 Willy Austin BATCHER OPERATOR Work Phone: [facility] 01-29-2025 10:57-0400 Body weight 85.96 kg Willy Austin BATCHER OPERATOR Work Phone: [facility] 01-29-2025 10:57-0400 Diastolic blood pressure 80 mm[Hg] Willy Austin BATCHER OPERATOR Work Phone: [facility] 01-29-2025 10:57-0400 Systolic blood pressure 136 mm[Hg] Willy Austin BATCHER OPERATOR Work Phone: [facility] 01-24-2025 11:42-0400 Diastolic blood pressure 70 mm[Hg] [facility] Nurse [facility] 01-24-2025 11:42-0400 Systolic blood pressure 142 mm[Hg] [facility] Nurse [facility] 01-24-2025 11:21-0400 Body mass index (BMI) [Ratio] 32.01 kg/m2 [facility] Nurse [facility] 01-24-2025 11:21-0400 Body weight 87.26 kg [facility] Nurse [facility] 12-23-2024 13:51-0400 Body mass index (BMI) [Ratio] 31.35 kg/m2 Jaspreet Angie DO Work Phone: [facility] 12-23-2024 13:51-0400 Body weight 85.46 kg Jaspreet Angie DO Work Phone: [facility] 12-23-2024 13:51-0400 Diastolic blood pressure 78 mm[Hg] Jaspreet Angie DO Work Phone: [facility] 12-23-2024 13:51-0400 Systolic blood pressure 118 mm[Hg] Jaspreet Angie DO Work Phone: [facility] 08-11-2023 22:07-0500 Diastolic blood pressure 64 mm[Hg] PHYSICIAN NO [facility] 08-11-2023 22:07-0500 Heart rate 71 /min PHYSICIAN NO [facility] 08-11-2023 22:07-0500 Respiratory rate 18 /min PHYSICIAN NO [facility] 08-11-2023 22:07-0500 SaO2% (BldA) [Mass fraction] 99 % PHYSICIAN NO [facility] 08-11-2023 22:07-0500 Systolic blood pressure 126 mm[Hg] PHYSICIAN NO [facility] 08-11-2023 19:17-0500 Body height 170.18 cm PHYSICIAN NO [facility] 08-11-2023 19:17-0500 Body weight 80.73 kg PHYSICIAN NO [facility] Encounters Encounter Date Encounter Type Care Provider Facility Start: 05-20-2025 End: 05-20-2025 Clinisync Result Encounter Jaspreet Angie DO Work Phone: [facility] Unsolicited Start: 05-20-2025 End: 05-20-2025 Clinisync Result Encounter Jaspreet Angie DO Work Phone: [facility] Unsolicited Start: 05-19-2025 End: 05-19-2025 Clinisync Result Encounter Jaspreet Angie DO Work Phone: [facility] Unsolicited Start: 05-19-2025 End: 05-19-2025 Clinisync Result Encounter Jaspreet Angie DO Work Phone: [facility] Unsolicited Start: 05-15-2025 End: 05-15-2025 Bamboo flowsheet Deyanira KABA Work Phone: [facility] Start: 05-15-2025 End: 05-15-2025 Bamboo flowsheet Deyanira KABA Work Phone: [facility] Start: 05-15-2025 End: 05-15-2025 ambulatory DEYANIRA MCCLOUD Not Available Start: 05-15-2025 End: 05-15-2025 Office outpatient visit 15 minutes Deyanira KABA Work Phone: [facility] Comment on above: 33 weeks gestation o f ([facility]); Third trimester ([facility]); Gestational diabetes mellitus (GDM), antepartum, gestational diabetes method of control unspecified ([facility]) Start: 04-30-2025 End: 04-30-2025 Office outpatient visit 15 minutes Jaspreet Angie DO Work Phone: [facility] Comment on above: 31 weeks gestation o f ([facility]); Third trimester ([facility]); Gestational diabetes mellitus (GDM), antepartum, gestational diabetes method of control unspecified ([facility]) Start: 04-30-2025 End: 04-30-2025 ambulatory JASPREET ANGIE Not Available Start: 04-17-2025 End: 04-17-2025 Bamboo flowsheet Deyanira KABA Work Phone: [facility] Start: 04-17-2025 End: 04-17-2025 Bamboo flowsheet Deyanira KABA Work Phone: [facility] Start: 04-17-2025 End: 04-17-2025 ambulatory DEYANIRA MCCLOUD Not Available Start: 04-17-2025 End: 04-17-2025 Office outpatient visit 15 minutes Deyanira Mccloud PA Work Phone: [facility] Comment on above: Size of fetus incons istent with dates in second trimester ([facility]) (Primary Dx); Third trimester ([facility]); 29 weeks gestation of ([facility]) Start: 04-03-2025 End: 04-03-2025 Bamboo flowsheet Jaspreet Angie DO Work Phone: [facility] Start: 04-03-2025 End: 04-03-2025 Bamboo flowsheet Jaspreet Angie DO Work Phone: [facility] Start: 04-03-2025 End: 04-03-2025 ambulatory JASPREET ANGIE Not Available Start: 04-03-2025 End: 04-03-2025 Office outpatient visit 15 minutes Jaspreet Angie DO Work Phone: [facility] Comment on above: Second trimester pre gnancy ([facility]); 27 weeks gestation of ([facility]) Start: 03-28-2025 End: 03-28-2025 Chart abstracting Scanning Provider External [facility] Start: 03-21-2025 End: 03-21-2025 Clinisync Result Encounter Jaspreet Angie DO Work Phone: [facility] Unsolicited Start: 03-21-2025 End: 03-21-2025 Clinisync Result Encounter Jaspreet Angie DO Work Phone: [facility] Unsolicited Start: 03-19-2025 End: 03-19-[address] ANGIE Not Available Start: 03-06-2025 End: 03-06-2025 [...] Comment on above: Second trimester pre gnancy ([facility]); 23 weeks gestation of ([facility]); Diabetes mellitus screening; Well woman exam with [...] 01-29-2025 End: 01-29-2025 Bamboo flowsheet Willy Avila BATCHER OPERATOR Work Phone: [facility] Start: 01-29-2025 End: 01-30-2025 Bamboo flowsheet Willy Marrufoerly BATCHER OPERATOR Work Phone: [facility] Start: 01-29-2025 End: 01-30-2025 External Result Encounter Willy Marrufoerly BATCHER OPERATOR Work Phone: [facility] Unsolicited Start: 01-29-2025 End: 01-29-2025 ambulatory WILLY MARRUFOERLY Not Available Start: 01-29-2025 End: 01-29-2025 Office outpatient visit 15 minutes Willy Marrufoerly BATCHER OPERATOR Work Phone: [facility] Comment on above: Second trimester pre gnancy; 18 weeks gestation of Start: 01-24-2025 End: 01-24-2025 Office outpatient visit 5 minutes [facility] Angie Nurse [facility] Comment on above: GA: 17w3d Start: 01-24-2025 End: 01-24-2025 ambulatory JASPREET ANGIE Not Available Start: 01-06-2025 End: 01-06-2025 ambulatory Cristal Butt Marker Facility:[facility] Start: 01-06-2025 End: 01-06-2025 Departed Referred Cristal Marker DO Work Phone: [facility] Start: [...] Emergency department patient visit PHYSICIAN SASKIA HERR [facility] Work Phone: Start: 03-03-2022 End: 03-03-[address] DOCTOR BARBOZA Facility:[facility] Start: 08-23-2021 End: 08-23-2021 ambulatory ADEOLA COHEN Facility:[facility] Procedures Date Procedure Procedure Detail Performing Clinician Start: 05-20-2025 US AMNIOTIC FLUID VOLUME Jaspreet Angie DO Work Phone: Start: 05-19-2025 US OB BPP W NON-STRESS [...] URINARY TRACT INFECT ION (HTRX) Willy Avila BATCHER OPERATOR Work Phone: Start: 01-29-2025 Urnls dip stick/tabl et rgnt non-auto w/o micrscp Willy Avila BATCHER OPERATOR Work Phone: Start: 01-24-2025 Urnls dip stick/tabl [...] EDT Routine [facility] [address] [address] Willy Avila, WILLIE [address] [place] [address] [facility] Start: 04-30-2025 End: 10-28-2025 US biophysical profile w non stress test US biophysical profile w non stress test Imaging Routine Gestational diabetes mellitus (GDM), antepartum, gestational diabetes method of control unspecified ([facility]) Expected: 04/30/2025 (Approximate), Expires: 10/28/2025 [facility] Work Phone: Comment on above: Expected: 04/30/2025 (Approximate), Expires: 10/28/2025 Start: 04-28-2025 Influenza vaccination Influenza Vacc ine [facility] Start: 04-17-2025 End: 08-17-2025 US for US OB follow up transabdominal approach Imaging Routine Size of fetus inconsistent with dates in second trimester ([facility]) Expected: 04/17/2025, Expires: 08/17/2025 [facility] Work Phone: Comment on above: Expected: 04/17/2025 , Expires: 08/17/2025 Start: 04-17-2025 End: 04-17-2025 Patient encounter procedure 04/17/2025 9:50 AM EDT Routine [facility] [place] [facility] [address] [place] [address] Deyanira Mccloud PA [address] [place] [address] [facility] [facility] Start: 04-03-2025 End: 04-03-2025 ambulatory 04/03/2025 1:30 PM EDT Support Visit [facility] [address] [place] [id number] Rimma Richey RN [address] [address] Nikky Gonzalez, BLADE Brian, [place], [place] [address] [place] [address] [facility] Start: 04-03-2025 End: 04-03-2025 Patient encounter procedure 04/03/2025 10:40 AM EDT Routine [facility] [address] [phone] Jaspreet Adams, DO [address] [place] [address] [facility] Start: 03-19-2025 End: 03-19-2025 Professional / ancillary services management 03/19/2025 9:30 AM EDT Ancillary Procedure [facility] [address] [place] [phone] [facility] Start: 03-05-2025 End: 03-05-2026 CBC panel - Blood by Automated count CBC Lab Routine Diabetes mellitus screening Expected: 03/05/2025 (Approximate), Expires: 03/05/2026 [facility] Comment on above: Expected: 03/05/2025 (Approximate), Expires: 03/05/2026 Start: 03-05-2025 End: 03-05-2026 Measurement of glucose 1 hour after glucose challenge for glucose tolerance test Glucose tolerance, 1 hour Lab Routine Diabetes mellitus screening Expected: 03/05/2025 (Approximate), Expires: 03/05/2026 [facility] Comment on above: Expected: 03/05/2025 (Approximate), Expires: 03/05/2026 Start: 03-05-2025 End: 03-05-2025 Patient encounter procedure 03/05/2025 11:00 AM EDT Routine [facility] [address] [place] [phone] Jaspreet Adams, DO [address] [place] [address] Arrived [facility] Comment on above: Arrived Start: 02-27-2025 End: 02-27-2025 Patient encounter procedure 02/27/2025 8:50 AM EDT Routine [facility] [address] [place] [phone] Jaspreet Adams DO [address] [place] [address] [facility] Start: 02-12-2025 End: 02-12-2025 Clinical Support 02/12/2025 9:00 AM EDT Clinical Support [facility] [address] [place] [address] [facility] Start: 01-29-2025 End: 01-29-2025 Patient encounter procedure 01/29/2025 10:20 AM EDT Routine [facility] [address] [place] [phone] Willy Avila, BATCHER OPERATOR [address] [place] [phone] [facility] Start: 01-24-2025 End: 01-24-2026 ABO/Rh ABO/Rh Lab Routine Missed menses , unspecified gestational age Expected: 01/24/2025 (Approximate), Expires: 01/24/2026 [facility] Comment on above: Expected: 01/24/2025 (Approximate), Expires: 01/24/2026 Start: 01-24-2025 End: 03-26-2025 Alpha fetoprotein, maternal Alpha fetoprotein, maternal Lab Routine Encounter for supervision of normal first in first trimester Expected: 01/24/2025 (Approximate), Expires: 03/26/2025 [facility] Comment on above: Expected: 01/24/2025 (Approximate), Expires: 03/26/2025 Start: 01-24-2025 End: 01-24-2026 Blood type and Indirect antibody screen panel - Blood Type and screen Lab Routine Missed menses , unspecified gestational age Expected: 01/24/2025 (Approximate), Expires: 01/24/2026 [facility] Work Phone: Comment on above: Expected: 01/24/2025 (Approximate), Expires: 01/24/2026 Start: 01-24-2025 End: 01-24-2026 Drugs of abuse panel - Urine by Screen method Rapid drug screen, urine Lab Routine , unspecified gestational age Encounter for supervision of normal first in first trimester Expected: 01/24/2025 (Approximate), Expires: 01/24/2026 [facility] Comment on above: Expected: 01/24/2025 (Approximate), Expires: 01/24/2026 Start: 01-10-2025 End: 01-10-2025 ambulatory 01/10/2025 9:30 AM EDT Initial [facility] [address] [place] [address] [facility] Start: 01-10-2025 End: 01-10-2025 Professional / ancillary services management 01/10/2025 9:00 AM EDT Ancillary Procedure [facility] [address] [place] [phone] [facility] Start: 01-06-2025 Bacteria identified in Urine by Culture Urine Culture [facility] Start: 01-06-2025 Urine culture [facility] Start: 2018 Screening for malign ant neoplasm of cervix Pap Smear [facility] Start: 2016 DTaP,Tdap and Td Vaccines (1 - Tdap) DTaP,Tdap and Td Vaccines (1 - Tdap) [facility] Start: 12-07-2015 Adult BMI Screening Adult BMI Screen ing [facility] Start: 2009 Depression Screening Depression Scre ening [facility] Start: 2009 Tobacco Screening Tobacco Screening [facility] Bacteria identified in Urine by Culture Urine culture Microbiology Routine Missed menses Ordered: 01/24/2025 [facility] Comment on above: Ordered: 01/24/2025 Bacteria identified in Urine by Culture Urine culture Microbiology Routine Second trimester Ordered: 01/29/2025 [facility] Work Phone: Comment on above: Ordered: 01/29/2025 CBC W Auto Different ial panel - Blood CBC and differential Lab Routine Missed menses , unspecified gestational age Ordered: 01/24/2025 [facility] Comment on above: Ordered: 01/24/2025 Cytology Cervical or vaginal smear or scraping study Pap Smear Pathology and Cytology Routine Well woman exam with routine gynecological exam Ordered: 03/05/2025 [facility] Work Phone: Comment on above: Ordered: 03/05/2025 Hemoglobin A1c/Hemoglobin.total in Blood Hemoglobin A1c Lab Routine Missed menses , unspecified gestational age Ordered: 01/24/2025 [facility] Comment on above: Ordered: 01/24/2025 Hepatitis B virus surface Ag [Presence] in Serum or Plasma by Immunoassay Hepatitis B surface antigen Lab Routine Missed menses , unspecified gestational age Ordered: 01/24/2025 [facility] Comment on above: Ordered: 01/24/2025 Hepatitis C virus Ab [Presence] in Serum or Plasma by Immunoassay Hepatitis C antibody Lab Routine Missed menses , unspecified gestational age Ordered: 01/24/2025 [facility] Comment on above: Ordered: 01/24/2025 HIV-1/HIV-2 antigen/antibody combination immunoassay HIV-1 and HIV-2 antibodies Lab Routine Missed menses , unspecified gestational age Ordered: 01/24/2025 [facility] Comment on above: Ordered: 01/24/2025 Patient Education Head injury in adults Blunt Abdominal Trauma ED Blunt Chest Trauma ED [facility] Work Phone: Patient referral [facility] Work Phone: Reagin Ab [Presence] in Serum by RPR RPR Lab Routine Missed menses , unspecified gestational age Ordered: 01/24/2025 [facility] Comment on above: Ordered: 01/24/2025 Rubella antibody, IgG Rubella an tibody, IgG Lab Routine Missed menses , unspecified gestational age Ordered: 01/24/2025 [facility] Comment on above: Ordered: 01/24/2025 Immunizations Immunization Date Immunization Notes Care Provider Fa aaron 08-11-2023 tetanus toxoid, redu christie diphtheria toxoid, and acellular pertussis vaccine, adsorbed PHYSICIAN NO [facility] Payers Date Payer Category Payer Private Health Insurance [employer] [id number] 2025 Self-pay [id number] 2024 Medicaid [id number] 2024 Medicaid [id number] 1997 Unknown [id number] 2.16.840.1.026634.3.579.2. 593 1997 Unknown [id number] 2.16.840.1.849541.3.579.2. 593 1997 Unknown [id number] 2.16.840.1.409759.3.579.2. 1258 1997 Unknown [id number] 2.16.840.1.580485.3.579.2. 1259 1997 Unknown [id number] 2.16.840.1.428424.3.579.2. 1259 1997 Unknown [id number] 2.16.840.1.574920.3.579.2. 1259 1997 Unknown [id number] 2.16.840.1.399678.3.579.2. 9 1997 Unknown [id number] 2.16.840.1.033764.3.579.2. 1259 1997 Unknown [id number] 2.16.840.1.421924.3.579.2. 1259 1997 Unknown [id number] 2.16.840.1.000238.3.579.2. 1259 1997 Unknown [id number] 2.16.840.1.093209.3.579.2. 1259 1997 Unknown [id number] 2.16.840.1.986006.3.579.2. 1259 1997 Unknown [id number] 2.16.840.1.135954.3.579.2. 9 1997 Unknown [id number] 2.16840.1.565507.3.579.2. 1259 1959 Unknown [id number] Unknown Regular Auto/Liability [id number] Unknown HCAP/HFA/FAP Active [id number] Unknown [id number] 2.16.840.1.468018.3.579.2. 531 Unknown Regular Auto/Liability 23-47 [id number] Unknown HCAP/HFA/FAP Active [id number] Social History Date Type Detail Facility Start: 08-11-2023 End: 08-11-2023 Tobacco smoking status ALIS Never smoked tobacco (finding) [facility] Start: 1995 Sex Assigned At Female F [facility] Tobacco smoking stat us ALIS Tobacco smoking consumption unknown [facility] Start: 12-22-2024 Gender identity Identifies as female gender (finding) [facility] Sexual orientation Not on file [facility] Start: 01-07-2025 End: 03-26-2025 Sex Female (finding) [facility] Start: 10-08-2024 [facility] Start: 1995 Sex assigned at Not on file [facility] Medical Equipment Procedure Code Equipment Code Equipment Origin al Text Equipment Identifier Dates 1 strip by In Vi tro route Daily Use in the morning prior to breakfast, 1 hour after each meal for a total of 4times daily. [id number] Start: 03-24-2025 End: 04-23-2025 1 each by In Vit ro route Daily Use to check FSBS four times daily [id number] Start: 03-24-2025 End: 04-23-2025 Clinical Notes 12-23-2024 [...] PLAN ICD-10-CM 1. 33 weeks gestation of ([facility]) Z3A.33 POCT urinalysis dipstick manually resulted 2. Third trimester ([facility]) Z34.93 POCT urinalysis dipstick manually resulted 3. Gestational diabetes mellitus (GDM), antepartum, gestational diabetes method of control unspecified ([facility]) O24.419 Return OB: Patient presents today for [...] of: SENDY Fan documented in this encounter [facility] 04-30-2025 History of Present illness Narrative Reason for Appointment: Patient ID: Chente Gonzalez is a 29 y.o. female who presents for Routine Visit Patient presents today for Return OB appointment. MEDICATIONS Current Outpatient Medications Medication Instructions Alcohol Swabs (Alcohol Prep Pad) 70 % pads 1 Pad, Topical, Daily, Use four times daily to check FSBS. Blood Glucose Monitoring Suppl (Traitify Glucometer) w/Device kit 1 kit, Does not [...] nursing note reviewed. Exam conducted with a clinical review specialist present. Vitals: Estimated body mass index is 35.01 kg/m as calculated from the following: Height as of 12/01/20: 5' 5 . Weight as of this encounter: 210 lb 6.4 oz. BP: 120/70 Patient's last menstrual period was 10/04/2024 (approximate). ASSESSMENT & PLAN ICD-10-CM 1. 31 weeks gestation of ([facility]) Z3A.31 POCT urinalysis dipstick manually resulted 2. Third trimester ([facility]) Z34.93 POCT urinalysis dipstick manually resulted 3. Gestational diabetes mellitus (GDM), antepartum, gestational diabetes method of control unspecified ([facility]) O24.419 US biophysical profile w non stress [...] Jaspreet Adams DO documented in this encounter [facility] 04-17-2025 History of Present illness Narrative [...] ASSESSMENT & PLAN ICD-10-CM 1. Third trimester ([facility]) Z34.93 POCT urinalysis dipstick manually resulted 2. 29 weeks gestation of ([facility]) Z3A.29 POCT urinalysis dipstick manually resulted Return [...] of: SENDY Fan documented in this encounter [facility] 04-03-2025 History of Present illness Narrative [...] nursing note reviewed. Exam conducted with a clinical review specialist present. Vitals: Estimated body mass index is 33.35 kg/m as calculated from the following: Height as of 12/01/20: 5' 5 . Weight as of this encounter: 200 lb 6.4 oz. BP: 130/72 Patient's last menstrual period was 10/04/2024 (approximate). ASSESSMENT & PLAN ICD-10-CM 1. Second trimester ([facility]) Z34.92 Urine dip 2. 27 weeks gestation of ([facility]) Z3A.27 Urine dip Patient presents today for a routine obstetrics appointment. Patient is currently 27w2d with a Estimated Date of Delivery: 07/01/25. Patient brought in FSBS logs for review and patient still desires to hold off on [facility] referral at this time, referral was previously sent on 03/24/25 and when contacted by [facility] patient will inform them that she will postpone scheduling at this time. Patient to return to clinic in 2 weeks for routine OB appointment. Documented by Nissa Matt LPN on behalf of: Jaspreet Adams DO documented in this encounter [facility] 03-05-2025 History of Present illness Narrative [...] nursing note reviewed. Exam conducted with a clinical review specialist present. Vitals: Estimated body mass index is 31.62 kg/m as calculated from the following: Height as of 12/01/20: 5' 5 . Weight as of this encounter: 190 lb. BP: 128/78 Patient's last menstrual period was 10/04/2024 (approximate). ASSESSMENT & PLAN ICD-10-CM 1. Second trimester ([facility] Z34.92 POCT urinalysis dipstick manually resulted 2. 23 weeks gestation of ([facility]) Z3A.23 3. Diabetes mellitus screening Z13.1 CBC [...] Jaspreet Adams DO documented in this encounter [facility] 01-29-2025 History of Present illness Narrative [...] nursing note reviewed. Exam conducted with a clinical review specialist present. Vitals: Estimated body mass index is [...] Willy Avila NP documented in this encounter [facility] 01-24-2025 History of Present illness Narrative [...] undercooked meat, and stay away from [facility]. Patient has also been advised to [...] Kalyn Jacob MA documented in this encounter [facility] 12-23-2024 History of Present illness Narrative [...] nursing note reviewed. Exam conducted with a clinical review specialist present. Vitals: Estimated body mass index is [...] Evaluation note No assessment inform ation available [facility] Work Phone: Evaluation note Diagnosis [...] encounter [facility]InstructionsNot on filedocumented in [facility] Summary Purpose Family History Relationship Condition Age [...] section and content) DATE CREATED AUTHOR [facility] DATE CREATED AUTHOR AUTHOR'S ORGANIZ ATION 06/07/2022 [facility] DATE CREATED AUTHOR AUTHOR'S ORGANIZ ATION 01/09/2025 [facility] DATE CREATED AUTHOR AUTHOR'S ORGANIZ ATION 05/16/2025 [facility] EPIC Care Teams (unrecognized sec [...] BE BASED ON THE PRIMARY CLINICAL RECORDS. [facility] [employer] provides no warranty or guarantee of the accuracy or completeness of information in this document.
[2025-05-22 11:14] VITALS: BP 133/74; PULSE 107
== END 2025-05-22 11:42 | disposition home or self-care (01) ==
LOC: FBCO 11:08 → FBC 11:09
PROVIDERS: Visit Provider Obstetrics & Gynecology
DX: O24.419 Gestational diabetes mellitus in pregnancy, unspecified control (principal)
CPT/HCPCS: 59025

== ENCOUNTER 2025-05-26 10:01 | Outpatient (OUT) | payer OTHER, SELFPAY ==
--- OUTSIDE RECORDS SUMMARY | 2025-05-15 09:53 | XMS_ITS ---
Author Name Auto Generated Organization [place] Support Name Relationship Address Phone CHERYL, DEYANIRA Next of Kin [address] [place] [address] + ALLEY, DEYANIRA Next of Kin [address] [place] [address] + ALLEY, DEYANIRA Next of [facility] [address] [place] [address] + ALLEY, DEYANIRA Next of Kin [address] [place] [address] + ALLEY, DEYANIRA Next of Kin [address] [facility] [address] [place] [address] + ALLEY, DEYANIRA Next of Kin [address] [place] [address] + ALLEY, DEYANIRA Next of Kin [address] [facility] [address] [place] [address] + ALLEY, DEYANIRA Next of Kin [address] [place] [address] + ALLEY, DEYANIRA Next of Kin [address] [place] [address] + ALLEY, DEYANIRA Next of Kin [address] [place] [address] + ALLEY, DEYANIRA Next of Kin [address] [place] [address] + ALLEY, DEYANIRA Next of Kin [address] [place] [address] + Alley, Deyanira Next of Kin [address] [place] [address] + ALLEY, DEYANIRA Next of Kin [address] [place] [address] + Care Team Providers Care Chemical Dependency Counselor Name Role Phone Marker, Cristal Butt Attending Unavailable Marker, Cristal Butt Admitting Unavailable ELIER, TYRELL Attending Unavailable ELIER, TYRELL Referring Unavailable GILDA, WILLY Attending Unavailable GILDA, WILLY Referring Unavailable ELIER, TYRELL Attending Unavailable ELIER, TYRELL Attending Unavailable AME, DEYANIRA Attending Unavailable AME, DEYANIRA Referring Unavailable ELIER, TYRELL Attending Unavailable AME, DEYANIRA Attending Unavailable PROBLEMS No Problem Records Found PROCEDURES No Procedure Records Found RESULTS US OB FOLLOW UP TRANSABDOMINAL APPROACH Observed: 04/30/2025 2:18 PM Status: F Source: [facility] Order Comment: US OB SCAN FO [...] Observed: 03/19 9:52 AM Status: F Source: [facility] Order Comment: US OB INCOMPL ETE [...] II, MD, PHD at 21-Mar-2025 08:31:03 AM [facility] US OB 14+ WEEKS ANATOMY SCAN Observed: 0 02/19/2025 7:56 AM Status: F Source: [facility] EP[facility] Order Comment: US OB [...] II, MD, PHD at 20-Feb-2025 09:47:05 AM [facility] US OB LIMITED 1+ FETUSES Observed: 01/24 10:18 AM Status: F Source: [facility] EP[facility] Order Comment: US OB [...] II, MD, PHD at 27-Jan-2025 10:23:04 AM [facility] URINE CULTURE Observed: 01/06/2025 1:40 AM Status: F Source: [facility] No Growth 2 Days PERFORMED BY: [place] [address] PATHOLOGIST [employer] HOC[employer] COACH RAHUL HOLCOMB M.D. Performed By: #### [facility] #### [address] ALLERGIES No Allergies Records Found ENCOUNTERS ADMIT/DISCHARGE ACCOUNT NUMBER ADMITTING ENCOUNTER CLASS LOCATION SOURCE 05/15/2025/05/15/20 [id number] Ambulatory Building:[facility] 04/30/2025/04/30/20 25 [id number] Ambulatory Building:[facility] 04/30/2025/04/30/20 25 [id number] Ambulatory Building:[facility] 04/17/2025/04/17/20 25 [id number] Ambulatory Building:[facility] 04/03/2025/04/03/20 25 [id number] Ambulatory Building:[facility] 03/19/2025/03/19/20 25 [id number] Ambulatory Building:[facility] 03/05/2025/03/05/20 25 [id number] Ambulatory Building:[facility] 02/19/2025/02/20/20 25 [id number] Ambulatory Building:[facility] 02/12/2025/02/13/20 25 [id number] Ambulatory Building:[facility] 01/29/2025/01/30/20 25 [id number] Ambulatory Building:[facility] 01/24/2025/01/25/20 25 [id number] Ambulatory Building:[facility] 01/24/2025/01/25/20 25 [id number] Ambulatory Building:[facility] 01/06/2025/01/07/20 25 [id number] Marker, Cristal Butt [facility] 12/23/2024/12/24/19 [id number] Ambulatory Building:[facility] EPIC PAYERS ENCOUNTER GUARANTOR PAYER SUBSCRIBER SOURCE 05/15/2025 CHENTE SLAUGHTEROB: [place], [place] [address]Kfw: (HP) Primary Insurance:[employer] MEDICAIDPolicy Number: [id number] Date:2025-03-28 CHENTE ALLEYDOB: [id number] [place] [address] [facility] EP[facility] 04/30/2025 CHENTE ALLEYDOB: [place], [place] [address]Owc: (HP) Primary Insurance:[employer] MEDICAIDPolicy Number: [id number] Date:2025-03-28 CHENTE ALLEYDOB: [id number] [place] [address] [facility] EP[facility] 04/30/2025 CHENTE ALLEYDOB: [place], [place] [address]Foy: (HP) Primary Insurance:[employer] MEDICAIDPolicy Number: [id number] Date:2025-03-28 CHENTE ALLEYDOB: [id number] [place] [address] [facility] EP[facility] 04/17/2025 CHENTE ALLEYDOB: [place], [place] [address]Vwh: (HP) [place] Insurance[place]: [id number] Date:2024-10-26 CHENTE ALLEYDOB: [id number] [place] [address] [facility] EP[facility] 04/03/2025 CHENTE ALLEYDOB: [place], [place] [address]Tgr: (HP) Primary Insurance:[place]: [id number] Date:2024-10-26 CHENTE ALLEYDOB: [id number] [place] [address] [facility] EP[facility] 03/19/2025 CHENTE ALLEYDOB: [place], [place] [address]Liw: (HP) Primary Insurance:[place]ID [place] Number: [id number] Date:2024-11-262025-01-25 CHENTE ALLEYDOB: [id number] [place] [address] [facility] EP[facility] 03/05/2025 CHENTE ALLEYDOB: [place], [place] [address]Xxe: (HP) Primary Insurance:[place] Number: [id number] Date:2024-11-262025-01-25 CHENTE ALLEYDOB: [id number] [place] [address] [facility] EP[facility] 02/19/2025 CHENTE ALLEYDOB: [place], [place] [address]Xge: (HP) Primary Insurance:[place]: [id number] Date:2024-11-262025-01-25 CHENTE ALLEYDOB: [id number] [place] [address] [facility] EP[facility] 02/12/2025 CHENTE ALLEYDOB: [place], [place] [address]Dkf: (HP) Primary Insurance:[place]ID [place] Number: [id number] Date:2024-11-262025-01-25 CHENTE ALLEYDOB: [id number] [place], [place] [id number] [place] [address] [facility] 01/29/2025 CHENTE ALLEYDOB: [place], [place] [address]Xyg: (HP) Primary Insurance:[place]ID [place] Number: [id number] Date:2024-11-26 - 2025-01-25 CHENTE ALLEYDOB: [id number] [place] [address] [facility] EP[facility] 01/24/2025 CHENTE ALLEYDOB: [place], [place] [address]Ohh: (HP) Primary Insurance:[place]ID [place] Number: [id number] Date:2024-11-26 CHENTE ALLEYDOB: [id number] [place] [address] [facility] 01/24/2025 CHENTE ALLEYDOB: [place], [place] [address]Jbz: (HP) Primary Insurance:[place] Number: [id number] Date:2024-11-26 CHENTE ALLEYDOB: [id number] [place] [address] [facility] 01/06/[address] [address]Bjc: (HP) Primary Insurance:Self PayPolicy Number: Effective Date:2025-01-06 [facility]
--- NOTE | 2025-05-26 | US_ITS ---
The [address] [address] Patient Name: JORGE ALBERTO LUNA MRN: [id number] date: 1995 Sex: F Assigned Patient Location: [facility] Current Patient Location: Accession/Order Number: [id number] Exam Date: 05/26/2025 10:05 Report Date: 05/26/2025 11:39 At the request of: TYRELL THAPA DO Procedure: US OB BPP w non-stress BIOPHYSICAL PROFILE: CLINICAL INFORMATION: Gestational diabetes mellitus o24.419 COMPARISON: 05/19/2025 There is a single live intrauterine gestation in cephalic presentation. The reported gestational age is 34 weeks 6 days. The heart rate measures 153 beats per minute. FINDINGS: TONE: 1 or more episodes of activity extension and flexion of extremity or opening and closing of the hand [Y] 2/2 GROSS BODY MOVEMENTS: 3 or more discrete body or limb movements [Y] 2/2 BREATHING MOVEMENTS: 1 or more episodes of breathing lasting at least 30 seconds [Y] 2/2 DOYLE: A single deepest vertical pocket of amniotic fluid greater than 2 cm [Y] 2/2 DOYLE: 7.3 cm . This is still below the 5th percentile. Total score: 8/8 US/US OB BPP w non-stress IMPRESSION: NORMAL BIOPHYSICAL PROFILE. CONTINUED OLIGOHYDRAMNIOS. Impression dictated by: Rahel Mae M.D. 05/26/2025 11:39 AM Dictation Location: [place] [address] Electronically authenticated by: [id number] Y Date: 05/26/2025 11:39
[2025-05-26 10:09] VITALS: BP 132/79; PULSE 90
== END 2025-05-26 11:20 | disposition home or self-care (01) ==
LOC: US 10:01 → FBC 10:02
PROVIDERS: Visit Provider Obstetrics & Gynecology
DX: O24.419 Gestational diabetes mellitus in pregnancy, unspecified control (principal); Z3A.34 34 weeks gestation of pregnancy
CPT/HCPCS: 76818

== ENCOUNTER 2025-05-29 11:03 | Outpatient (OUT) | payer OTHER, SELFPAY ==
--- OUTSIDE RECORDS SUMMARY | 2025-05-15 09:53 | XMS_ITS ---
Author Name Auto Generated Organization OHIP Support Name Relationship Address Phone CHERYL, DEYANIRA Next of Kin [address] [place] [address] + ALLEY, DEYANIRA Next of Kin [address] [place] [address] + ALLEY, DEYANIRA Next of [facility] [address] [place] [address] + ALLEY, DEYANIRA Next of Kin [address] [place] [address] + ALLEY, DEYANIRA Next of Kin [address] [address] [place] [address] + ALLEY, DEYANIRA Next of Kin [address] [place] [address] + ALLEY, DEYANIRA Next of Kin [address] [facility] [address] [address] [place] [address] + ALLEY, DEYANIRA Next of Kin [address] [place] [address] + ALLEY, DEYANIRA Next of Kin [address] [place] [address] + ALLEY, DEYANIRA Next of Kin [address] [place] [address] + ALLEY, DEYANIRA Next of Kin [address] [place] [address] + ALLEY, DEYANIRA Next of Kin [address] [place] [address] + Alley, Deyanira Next of Kin [address] [place] [address] + ALLEY, DEYANIRA Next of Kin [address] [place] [address] + Care Team Providers Care Supervisor Char House Name Role Phone TYRELL THAPA Attending Unavailable ELIER, TYRELL Referring Unavailable GILDA, WILLY Attending Unavailable GILDA, WILLY Referring Unavailable ELIER, TYRELL Attending Unavailable ELIER, TYRELL Attending Unavailable AME, DEYANIRA Attending Unavailable AME, DEYANIRA Referring Unavailable ELIER, TYRELL Attending Unavailable AME, DEYANIRA Attending Unavailable Marker, Cristal Butt Attending Unavailable Marker, Cristal Butt Admitting Unavailable PROBLEMS No Problem Records Found PROCEDURES No Procedure Records Found RESULTS US OB FOLLOW UP TRANSABDOMINAL APPROACH Observed: 04/30/2025 2:18 PM Status: F Source: [facility] EPIC Order Comment: US OB SCAN FO R GROWTH Estimated Date of Delivery: 07/01/25 Gestational Age as of 04/17/2025: 29w2d A single, live intrauterine is present with normal cardiac rate of 161 beats per minute. Normal activity and amniotic fluid volume. Amniotic fluid index is 16.0 cm. Morphology is grossly normal. The current sonographic age is 31 weeks and 5 days, based on the following measurements: BPD 7.9 cm (31 weeks, 4 days) Head Circumference 29.2cm (32 weeks, 2 days) Abdominal Circumference 27.2cm (31 weeks, 2 days) Femur Length 6.1cm (31 weeks, 5 days) Presentation Cephalic Weight (g) by Percentile 50.6 % * These measurements result in an estimated date of delivery of June 27, 2025. The current estimated weight is 1783 grams (3 pound, 15 ounces). Comparison made with prior examination of February 19 2025 delivery at that time was June 29, 2025 and the weight was 68.8% IMPRESSION: Single, live intrauterine , current sonographic age of 31 weeks and 5 days, with an estimated date of delivery of June 27, 2025 * Estimated Weight (g) by Percentile is based upon an accurate estimated age based on last menstrual period. TRANSCRIBED BY: ELECTRONICALLY SIGNED BY: Ramana Lechuga MD US OB LIMITED 1+ FETUSES Observed: 03/19 9:52 AM Status: F Source: [facility] EPIC Order Comment: US OB INCOMPL ETE ANATOMY Estimated Date of Delivery: 07/01/25 Gestational Age as of 02/24/2025: 21w6d EXAM: US OB LIMITED 1+ FETUS ES HISTORY: Follow up anatomy. COMPARISON: Ob ultrasound [...] II, MD, PHD at 21-Mar-2025 08:31:03 AM [facility] US OB 14+ WEEKS ANATOMY SCAN Observed: 0 02/19/2025 7:56 AM Status: F Source: [facility] EP[facility] Order Comment: US OB ANATOMY SINGLE W US OB CERVICAL LENGTH Estimated Date of Delivery: 07/01/25 Gestational Age as of 02/12/2025: 20w1d EXAM: US OB 14+ WEEKS ANATOM Y SCAN HISTORY: anatomy. COMPARISON: Ob ultrasound 01/24/2025. [...] II, MD, PHD at 20-Feb-2025 09:47:05 AM [facility] US OB LIMITED 1+ FETUSES Observed: 01/24 10:18 AM Status: F Source: [facility] EP[facility] Order Comment: US OB TRANSVA GINAL No LMP recorded. EXAM: US OB LIMITED 1+ FETUS ES HISTORY: Dating. COMPARISON: None available. TECHNIQUE: Two-dimensional [...] II, MD, PHD at 27-Jan-2025 10:23:04 AM [facility] URINE CULTURE Observed: 01/06/2025 1:40 AM Status: F Source: [facility] No Growth 2 Days PERFORMED BY: [place] [address] PATHOLOGIST BED MACHINE OPERATOR RAHUL HOLCOMB M.D. Performed By: #### CUU #### [address] ALLERGIES No Allergies Records Found ENCOUNTERS ADMIT/DISCHARGE ACCOUNT NUMBER ADMITTING ENCOUNTER CLASS LOCATION SOURCE 05/15/2025/05/15/20 [id number] Ambulatory Building:[facility] EP[facility] 04/30/2025/04/30/20 25 [id number] Ambulatory Building:[facility] 04/30/2025/04/30/20 25 [id number] Ambulatory Building:[facility] 04/17/2025/04/17/20 25 [id number] Ambulatory Building:[facility] 04/03/2025/04/03/20 25 [id number] Ambulatory Building:[facility] 03/19/2025/03/19/20 25 [id number] Ambulatory Building:[facility] 03/05/2025/03/05/20 25 [id number] Ambulatory Building:[facility] 02/19/2025/02/20/20 25 [id number] Ambulatory Building:[facility] 02/12/2025/02/13/20 25 [id number] Ambulatory Building:[facility] 01/29/2025/01/30/20 25 [id number] Ambulatory Building:[facility] 01/24/2025/01/25/20 25 [id number] Ambulatory Building:[facility] 01/24/2025/01/25/20 25 [id number] Ambulatory Building:[facility] 01/06/2025/01/07/20 25 [id number] Marker, Cristal Butt [facility] 12/23/2024/12/24/19 [id number] Ambulatory Building:[facility] EPIC PAYERS ENCOUNTER GUARANTOR PAYER SUBSCRIBER SOURCE 05/15/2025 CHENTE SLAUGHTEROB: [place], [place] [address]Atr: (HP) Primary Insurance:[employer] MEDICAIDPolicy Number: [id number] Date:2025-03-28 CHENTE ALLEYDOB: [id number] [place] [address] [facility] EPIC 04/30/2025 CHENTE ALLEYDOB: [place], [place] [address]Rco: (HP) Primary Insurance:[employer] MEDICAIDPolicy Number: [id number] Date:2025-03-28 CHENTE ALLEYDOB: [id number] [place] [address] [facility] EP[facility] 04/30/2025 CHENTE ALLEYDOB: [place], [place] [address]Pga: (HP) Primary Insurance:[employer] MEDICAIDPolicy Number: [id number] Date:2025-03-28 CHENTE ALLEYDOB: [id number] [place] [address] [facility] EP[facility] 04/17/2025 CHENTE ALLEYDOB: [place], [place] [address]Eip: (HP) [place]ID [place]: [id number] Date:2024-10-26 CHENTE ALLEYDOB: [id number] [place] [address] [facility] EPIC 04/03/2025 CHENTE ALLEYDOB: [place], [place] [address]Fnb: (HP) [place] Number: [id number] Date:2024-10-26 CHENTE ALLEYDOB: [id number] [place] [address] [facility] EP[facility] 03/19/2025 CHENTE ALLEYDOB: [place], [place] [address]Fkw: (HP) [place]: [id number] Date:2024-11-262025-01-25 CHENTE ALLEYDOB: [id number] [place] [address] [facility] EP[facility] 03/05/2025 CHENTE ALLEYDOB: [place], [place] [address]Efj: (HP) [place] Number: [id number] Date:2024-11-262025-01-25 CHENTE ALLEYDOB: [id number] [place] [address] [facility] EP[facility] 02/19/2025 CHENTE ALLEYDOB: [place], [place] [address]Qla: (HP) [place] Number: [id number] Date:2024-11-262025-01-25 CHENTE ALLEYDOB: [id number] [place] [address] [facility] 02/12/2025 CHENTE ALLEYDOB: [place], [place] [address]Wym: (HP) Primary Insurance:MED[place]ID [place] Number: [id number] Date:2024-11-262025-01-25 CHENTE ALLEYDOB: [id number] [place], [place] [address] [place] [address] [facility] 01/29/2025 CHENTE ALLEYDOB: [place], [place] [address]Fcv: (HP) Primary Insurance:MED[place]ID [place]: [id number] Date:2024-11-26 - 2025-01-25 CHENTE ALLEYDOB: [id number] [place] [address] [facility] 01/24/2025 CHENTE ALLEYDOB: [place], [place] [address]Ekv: (HP) Primary Insurance:[place] Number: [id number] Date:2024-11-26 CHENTE ALLEYDOB: [id number] [place] [address] [facility] EP[facility] 01/24/2025 CHENTE ALLEYDOB: [place], [place] [address]Owl: (HP) [place] Insurance[place] Number: [id number] Date:2024-11-26 CHENTE ALLEYDOB: [id number] [place] [address] [facility] EP[facility] 01/06/[address] [address]Ths: (HP) Primary Insurance:Self PayPolicy Number: Effective Date:2025-01-06 [facility]
[2025-05-29 11:11] VITALS: BP 139/75; PULSE 88
== END 2025-05-29 11:30 | disposition home or self-care (01) ==
LOC: FBCO 11:03 → FBC 11:04
PROVIDERS: Visit Provider Obstetrics & Gynecology
DX: O24.419 Gestational diabetes mellitus in pregnancy, unspecified control (principal); Z3A.35 35 weeks gestation of pregnancy
CPT/HCPCS: 59025

== ENCOUNTER 2025-06-02 10:00 | Outpatient (OUT) | payer OTHER, SELFPAY ==
--- OUTSIDE RECORDS SUMMARY | 2025-06-02 10:05 | XMS_ITS | Encounter Summary ---
Author Organization [facility] Address [address] [facility] [place] [address] Care Team Providers Care Public Health Professor Name Role Phone Unavailable Primary Care Provider Unavailabl e Encounter Details Date Type Department Care Team (Late Contact Info) Description 03/11/2025 Orders Only NOM[facility]erny [facility] [address] [facility] [place] [place] [address] Britt Christensen MA [address] [place] [address] Social History Tobacco Use Types Packs/Day Years [...] AM EDT Routine [facility] [address] [place] [place] [address] Nabila Avila, WILLIE [address] [facility] [place] [address] documented as of this encounter Procedures [...]
--- OUTSIDE RECORDS SUMMARY | 2025-06-02 10:05 | XMS_ITS | Clinical Summary ---
Author Organization [facility] tem Address [id number] [address] [place] [address] Care Team Providers Care Aluminum Welder Name Role Phone Unavailable Primary Care Provider Unavailabl e Encounters Date Type Department Care Team Description 03/28/2025 Abstract Maternal- Medicine at [facility] [address] [place] [phone] External, Scanning Provider 03/28/2025 Orders Only Maternal- Medicine at [facility] [address] [place] [phone] Domenica Ahmadi, BDR from Last 3 Months Social History Tobacco [...]
--- OUTSIDE RECORDS SUMMARY | 2025-06-02 10:05 | XMS_ITS | Encounter Summary ---
Author Organization [facility] Address [address] [facility] [place] [address] Care Team Providers Care Gas Flow Regulator Name Role Phone Unavailable Primary Care Provider Unavailabl e Encounter Details Date Type Department Care Team (Late st Contact Info) Description 03/05/2025 Abstract NOMFerny VARGAS [address] [place] [place] [address] Kalyn Jacob MA Social History Tobacco [...] EDT Routine MATTIE VARGAS [address] [place] [address] Nabila Avila, WILLIE [address] [place] [address] documented as of this encounter Visit Diagnoses Not on filedocumented in this encounter
--- OUTSIDE RECORDS SUMMARY | 2025-06-02 10:05 | XMS_ITS | Encounter Summary ---
Author Organization [facility] Address [address] [place] [address] Care Team Providers Care Consulting Sme Name Role Phone Unavailable Primary Care Provider Unavailabl e Encounter Details Date Type Department Care Team (Late st Contact Info) Description 05/26/2025 Clinisync Result Encounter [facility] External Department Unsolicited Tyrell Adams DO [address] [place], [place] [id number] Social History Tobacco Use Types Packs/Day Years Used Date Smoking Tobacco: Never Assessed PHQ-2 Answer Date Recorded Patient Health Questionnaire-2 Score 0 05/26/2025 Estimated Date of Delivery Comme nts Yes [...] EDT Routine [facility] [address] [place] [address] Nabila Avila NP [address] [place] [address] documented as of this encounter Procedures Procedure Name Priority Date/Time Associated Diagnosis Comments US OB BPP W NON-STRESS 05/26/2025 11:39 AM EDT documented in this encounter Results * US OB BPP W NON-STRESS (05/26/2025 11:39 AM EDT) Anatomical Region Laterality Modality Other 05/26/2025 11:3 9 AM EDT Narrative 05/26/2025 11:42 [place] [address] Ultrasound Report Signed Patient: CHENTE GONZALEZ MR#: [id number] : 1995 Acct:[id number] Age/Sex: 29 / F ADM Date: 05/26/25 Loc: US Attending Dr: Tyrell Adams D.O. Ordering Physician: Tyrell Adams D.O. Date of Service: 05/26/25 Procedure(s): US OB BPP w non-stress Accession Number(s): [id number] cc: Tyrell Adams D.O.; Physician,Non-Staff M.DPeggy The [place] [address] Patient Name: CHENTE GONZALEZ MRN: [id number] date: 1995 Sex: F Assigned Patient Location: [facility] Current Patient Location: Accession/Order Number: [id number] Exam Date: 05/26/2025 10:05 Report Date: 05/26/2025 11:39 At the request of: TYRELL ADAMS DO Procedure: US OB BPP w non-stress BIOPHYSICAL PROFILE: CLINICAL INFORMATION: Gestational diabetes mellitus o24.419 COMPARISON: 05/19/2025 There is a single live intrauterine gestation in cephalic presentation. The reported gestational age is 34 weeks 6 days. The heart rate measures 153 beats per minute. FINDINGS: TONE: 1 or [...] greater than 2 cm [Y] 2/2 DOYLE: 7.3 cm . This is still below the 5th percentile. Total score: 8 US/US OB BPP w non-stress IMPRESSION: NORMAL BIOPHYSICAL PROFILE. CONTINUED OLIGOHYDRAMNIOS. Impression dictated by: Rahel Mae M.D. 05/26/2025 11:39 AM Dictation Location: [place] [address] Electronically authenticated by: [id number] Y Date: 05/26/2025 11:39 Dictated By: Rahel Mae M.D. Signed By: 05/26/25 1142 DD/ 1139 TD/TT: Automotive Sales Associate: Procedure Note Radiology, Radiologist, MD - 05/26/2025 [place] [address] Ultrasound Report Signed Patient: CHENTE GONZALEZ NMR#: [id number] : 1995Acct:[id number] Age/Sex: 29 / FADM Date: 05/26/25 Loc: US Attending Dr: Tyrell Adams D.O. Ordering Physician: Tyrell Adams D.O. Date of Service: 05/26/25 Procedure(s): US OB BPP w non-stress Accession Number(s): [id number] cc: yTrell Adams D.O.; Physician,Non-Staff Alejandra The [address] [id number] Patient Name: CHENTE GONZALEZ MRN: [id number] date: 1995 Sex: F Assigned Patient Location: [facility] Current Patient Location: Accession/Order Number: [id number] Exam Date: 05/26/2025 10:05 Report Date: 05/26/2025 11:39 At the request of: TYRELL ADAMS DO Procedure: US OB BPP w non-stress BIOPHYSICAL PROFILE: CLINICAL INFORMATION: Gestational diabetes mellitus o24.419 COMPARISON: 05/19/2025 There is a single live intrauterine gestation in cephalic presentation.The reported gestational age is 34 weeks 6 days. The heart ratemeasures 153 beats per minute. FINDINGS: TONE: 1 or [...] greater than 2 cm [Y] 2/2 DOYLE: 7.3 cm . This is still below the 5th percentile. Total score: 04/04 US/US OB BPP w non-stress IMPRESSION: NORMAL BIOPHYSICAL PROFILE. CONTINUED OLIGOHYDRAMNIOS. Impression dictated by: Rahel Mae M.D. 05/26/2025 11:39 AM Dictation Location: [place] [address] Electronically authenticated by: [id number] Y Date: 1:39 Dictated By: Rahel Mae M.D. Signed By:05/26/25 1142 DD/ 1139 TD/TT: Automotive Sales Associate: us Tyrell Angie DO [facility] Final Result documented in this encounter Visit Diagnoses Not on filedocumented in this encounter
--- OUTSIDE RECORDS SUMMARY | 2025-06-02 10:05 | XMS_ITS ---
Author Organization [facility] Healthcare Address [address] [place] [address] Care Team Providers Care Clinic Clerk Name Role Phone Unavailable Primary Care Provider Unavailabl e Comprehensive Maternal Care (CMC) Status:Enrolled (Active) Start date:05/23/2025 Enrollment date:05/26/2025 Enrollment reason:Identified by Health Plan Case Team Name Relationship Phone Deyanira Phillips LPN(Responsible Staff) Licensed [facility] Nurse [phone] Continued Care and Services Coordination
--- OUTSIDE RECORDS SUMMARY | 2025-06-02 10:05 | XMS_ITS | Encounter Summary ---
Author Organization [facility] Address [address] [place] [address] Care Team Providers Care Full Time Babysitter Name Role Phone Unavailable Primary Care Provider Unavailabl e Encounter Details Date Type Department Care Team (Late Contact Info) Description 05/29/2025 Abstract [facility] [address] [place] [address] Deyanira Phillips LPN [address] [place] [address] Social History Tobacco Use Types Packs/Day Years [...] AM EDT Routine [facility] [place] [facility] [address] [facility] [place] [address] Nabila Avila, WILLIE [address] [place] [address] documented as of this encounter Visit Diagnoses Not on filedocumented in this encounter
--- OUTSIDE RECORDS SUMMARY | 2025-06-02 10:05 | XMS_ITS | Encounter Summary ---
Author Organization [facility] Address [address] [facility] [place] [address] Care Team Providers Care Mental Health Worker Name Role Phone Unavailable Primary Care Provider Unavailabl e Encounter Details Date Type Department Care Team (Late st Contact Info) Description 03/24/2025 Abstract NOMFerny VARGAS [address] [place] [place] [address] Jaspreet Adams DO [address] [place], [facility] Social History Tobacco Use Types Packs/Day Years [...] MATTIE VARGAS [address] [place] [address] Nabila Avila NP [address] [place] [address] documented as of this encounter Visit Diagnoses Not on filedocumented in this encounter
--- OUTSIDE RECORDS SUMMARY | 2025-06-02 10:05 | XMS_ITS | Encounter Summary ---
Author Organization [facility] Address [address] [place] [address] Care Team Providers Care Bobbin Stripper Name Role Phone Unavailable Primary Care Provider Unavailabl e Encounter Details Date Type Department Care Team ([facility] st Contact Info) Description 05/26/2025 Patient Outreach [facility] [address] [place] [address] Deyanira Phillips LPN [address] [place] [address] Social History Tobacco Use Types Packs/Day Years [...] on file documented as of this encounter Functional Status * Over the past 2 weeks, how often have you been bothered by any of the following problems? Question Answer Date of Assessment Author Little interest or pleasure in doing things Not at all 05/26/2025 3:01 PM EDT Deyanira Phillips LPN Feeling down, depressed, or hopeless Not at all 05/26/2025 3:01 PM EDT Deyanira Phillips LPN Patient Health Questionnaire -2 Score 0 05/26/2025 3:01 PM EDT Deyanira Phillips LPN documented as of this encounter Progress Notes * Deyanira Phillips LPN - 05/26/2025 3:00 PM EDT Initial Outreach. Call to pt. Pt report she feels baby moving frequently. Appetite and sleep are adequate, although sleep is interrupted. Bowels are regular. Pt denies any depression or difficulty coping at this time. Pt agrees to monthly outreach. Pt in process of becoming established with [facility]. Meds reviewed. Next OB OV 06/02/25. documented in this encounter Plan of Treatment Upcoming Encounters Date Type Department Care Team (Late st Contact Info) Description 06/02/2025 11:20 AM EDT Routine [facility] [address] [place] [place] [address] Nabila Avila, WILLIE [address] [place] [address] documented as of this encounter Visit Diagnoses Not on filedocumented in this encounter
--- OUTSIDE RECORDS SUMMARY | 2025-06-02 10:05 | XMS_ITS | Patient Health Record ---
Author Organization [facility] Address [address] [facility] [place] [place] [address] Care Team Providers Care Deaf Teacher Name Role Phone Yissel Butler Primary Care [...] MEDICAL MUT[address]JACINTA [address] [place] [address] [phone] [id number] JORGE ALBERTO LUNA Self - patient is the insured 2 Medical (General) History Medical History History ICD Code Polycystic Kidney Disease Hospitalization History Reason Date(Month/Year) Hyperemesis 06/2021
--- OUTSIDE RECORDS SUMMARY | 2025-06-02 10:05 | XMS_ITS | Encounter Summary ---
Author Organization [facility] Address [address] [facility] [place] [address] Care Team Providers Care Reverberatory Furnace Operator Name Role Phone Unavailable Primary Care Provider Unavailabl e Encounter Details Date Type Department Care Team (Late st Contact Info) Description 12/12/2024 Abstract MATTIE VARGAS [address] [facility] [place] [address] Jaspreet Adams DO [address] [facility] [address] [place], [place] [address] Social History Tobacco Use Types Packs/Day Years [...] 11:20 AM EDT Routine MATTIE VARGAS [address] [facility] [place] [address] Nabila Avila, WILLIE [address] [address] documented as of this encounter Visit Diagnoses Not on filedocumented in this encounter
--- OUTSIDE RECORDS SUMMARY | 2025-06-02 10:05 | XMS_ITS | Encounter Summary ---
Author Organization [facility] Address [address] [facility] [place] [address] Care Team Providers Care Senior Occupational Therapist Name Role Phone Unavailable Primary Care Provider Unavailabl e Encounter Details Date Type Department Care Team (Late st Contact Info) Description 05/20/2025 Clinisync Result Encounter [facility] External Department Unsolicited Tyrell Adams DO [address] [place], [facility] Social History Tobacco Use Types Packs/Day [...] AM EDT Routine [facility]y [place] [facility] [address] [facility] [place] [address] Nabila Avila, WILLIE [address] [place] [address] documented as of this encounter Procedures Procedure Name Priority Date/Time Associated Diagnosis Comments US AMNIOTIC FLUID VOLUME 05/20/2025 11:33 AM EDT documented in this encounter Results * US AMNIOTIC FLUID VOLUME (05/20/2025 11:33 AM EDT) Anatomical Region Laterality Modality Radiographic Eileen ging 05/20/2025 11:3 3 AM EDT Narrative 05/20/2025 11:36 AM EDT [address] [address] Ultrasound Report Signed Patient: CHENTE GONZALEZ MR#: [id number] : 1995 Acct:[id number] Age/Sex: 29 / F ADM Date: 05/20/25 Loc: [facility] 250-[address]: Tyrell Adams D.O. Ordering Physician: Tyrell Adams D.O. Date of Service: 05/20/25 Procedure(s): US OB amniotic fluid vol Accession Number(s): [id number] cc: Tyrell Adams D.O.; Physician,Non-Staff Alejandra The [place] [id number] Patient Name: CHENTE GONZALEZ MRN: [id number] date: 1995 Sex: F Assigned Patient Location: [facility] Current Patient Location: US Accession/Order Number: [id number] Exam Date: 05/20/2025 11:10 Report Date: 05/20/2025 11:33 At the request of: TYRELL ADAMS DO Procedure: US OB amniotic fluid vol ULTRASOUND OB AMNIOTIC FLUID VOLUME CLINICAL DATA: Oligohydramnios COMPARISON: [facility] 05/17/2025 There is a single live intrauterine [...] Mae M.D. 05/20/2025 11:33 AM Dictation Location: [facility] Electronically authenticated by: [id number] Y Date: 05/20/2025 11:33 Dictated By: Rahel Mae M.D. Signed By: 05/20/25 1136 DD/ 1133 TD/TT: Distribution Transformer Assembler: Procedure Note Radiology, Radiologist, - 05/20/2025 [place] [address] Ultrasound Report Signed Patient: CHENTE GONZALEZ NMR#: [id number] : 1995Acct:[id number] Age/Sex: 29 / FADM Date: 05/20/25 Loc: [facility] [address]: Tyrell Adams D.O. Ordering Physician: Tyrell Adams D.O. Date of Service: 05/20/25 Procedure(s): US OB amniotic fluid vol Accession Number(s): [id number] cc: Tyrell Adams D.O.; Physician,Non-Staff Alejandra The [place] [id number] Patient Name: CHENTE GONZALEZ MRN: [id number] date: 1995 Sex: F Assigned Patient Location: [facility] Current Patient Location: US Accession/Order Number: [id number] Exam Date: 05/20/2025 11:10 Report Date: 05/20/2025 11:33 At the request of: TYRELL ADAMS DO Procedure: US OB amniotic fluid vol ULTRASOUND OB AMNIOTIC FLUID VOLUME CLINICAL DATA: Oligohydramnios COMPARISON: [facility] 05/17/2025 There is a single live intrauterine gestation in cephalic presentation.The reported gestational age is 34 weeks 0 days. There is cardiac and somatic activity with heart rate of 142 bpm. The amniotic fluid volume on today's study measures 11.2 cm. This is in low-normal range. The largest pocket is 4.2 cm. US/US OB amniotic fluid vol IMPRESSION: LOW NORMAL AMNIOTIC FLUID VOLUME. Impression dictated by: Rahel Mae M.D. 05/20/2025 11:33 AM Dictation Location: [place] [address] Electronically authenticated by: [id number] Y Date: 1:33 Dictated By: Rahel Mae M.D. Signed By:05/20/25 1136 DD/ 1133 TD/TT: Distribution Transformer Assembler: us Tyrell Adams DO IMG XR PROCEDURES Final Result documented in this encounter Visit Diagnoses Not on filedocumented in this encounter
--- OUTSIDE RECORDS SUMMARY | 2025-06-02 10:05 | XMS_ITS | Encounter Summary ---
Author Organization [facility] Address [address] [place] [address] Care Team Providers Care Trimming Cutter Machine Name Role Phone Unavailable Primary Care Provider Unavailabl e Encounter Details Date Type Department Care Team (Late st Contact Info) Description 05/19/2025 Clinisync Result Encounter [facility] External Department Unsolicited Tyrell Adams DO [address] [place] [id number] Social History Tobacco Use Types Packs/Day Years [...] AM EDT Routine [facility] [place] [facility] [address] [facility] [place] [address] Nabila Avila, WILLIE [address] [place] [address] documented as of this encounter Procedures [...] DO BULLNC Final Result Performing Organization Address [facility]/ZIP Co de Phone Number [facility] * SRMCOH PROTHROMBIN TIME INR W/O COUM (05/19/2025 11:00 AM EDT) PROTHROMBIN TIME 9.8 9.0 - 11.6 sec TBH TBH INR <0.93 TBH Comment: DESIRED INR: 2.0-3.0 CONDITIONS NOT LISTED BELOW 2.5-3.5 FOR PROSTHETIC HEART VALVE REPLACEMENT 2.5-3.5 RECURRENT THROMBOSIS 05/19/2025 11:0 0 AM EDT 05/19/2025 11:06 AM EDT Narrative CLINISYNC - 05/19/2025 11:43 AM EDT [facility] [place] Final Result Performing Organization Address [facility]/ZIP Co de Phone Number [facility] * [facility] ALT (05/19/2025 11:00 AM EDT) ALANINE AMINOTRANSFERASE 25 14 - 59 U/L TB 05/19/2025 11:0 0 AM EDT 05/19/2025 11:06 AM EDT Narrative CLINISYNC - 05/19/2025 11:31 AM EDT Tyrell BURNETT Final Result Performing Organization Address [facility]/ZIP Co de Phone Number [facility] * [facility] AST (05/19/2025 11:00 AM EDT) ASPARTATE AMINO TRANSFERASE 15 15 - 37 U/L TB 05/19/2025 11:0 0 AM EDT 05/19/2025 11:06 AM EDT Narrative CLINISYNC - 05/19/2025 11:31 AM EDT us Tyrell Angie DO CLINISYNC Final Result [facility]INISYNC [facility] * ALL URIC ACID (05/19/2025 11:00 AM EDT) URIC ACID 4.4 2.6 - 6.0 mg/dL TB 05/19/2025 11:0 0 AM EDT 05/19/2025 11:06 AM EDT Narrative CLINISYNC - 05/19/2025 11:31 AM EDT us Tyrell Angie DO CLINISYNC Final Result Performing Organization Address [facility] Co de Phone Number CLINISYNC [facility] * TB CREATININE (05/19/2025 11:00 AM EDT) CREATININE 0.65 0.55 - 1.02 mg/dL TB TB EGFR-AF [place] >60 >=60 mL/min/1.7 3m 2 TBH TBH EGFR-NON AF [place] >60 >=60 mL/min/1.7 3m 2 TBH 05/19/2025 11:0 0 AM EDT 05/19/2025 11:06 AM EDT Narrative CLINISYNC - 05/19/2025 11:31 AM EDT us Tyrell Angie DO CLINISYNC Final Result Performing Organization Address City/[facility]/ZIP Co de Phone Number CLINISYNC [facility] * ALL BUN (05/19/2025 11:00 AM EDT) BLOOD UREA NITROGEN 7.0 7.0 - 18.0 mg/dL TB 05/19/2025 11:0 0 AM EDT 05/19/2025 11:06 AM EDT Narrative CLINISYNC - 05/19/2025 11:31 AM EDT us Tyrell Angie DO CLINISYNC Final Result CLINISYNC TBH * (ABNORMAL) ALL CBC WITH AUTO DIFF (05/19/2025 11:00 AM EDT) [facility] TB WBC 10.5 4.0 - 11.0 10 [...] Tyrell Adams DO CLINISYJAMIE Final Result MLNC [facility] * US OB BPP W NON-STRESS (05/19/2025 10:54 AM EDT) Anatomical Region Laterality Modality Other 05/19/2025 10:5 4 AM EDT Narrative 05/19/2025 10:56 [place] [address] Ultrasound Report Signed Patient: CHENTE GONZALEZ MR#: [id number] : 1995 Acct:[id number] Age/Sex: 29 / F ADM Date: 05/19/25 Loc: [facility] 250-[address]: Tyrell Adams D.O. Ordering Physician: Tyrell Adams D.O. Date of Service: 05/19/25 Procedure(s): US OB BPP w non-stress Accession Number(s): [id number] cc: Tyrell Adams D.O.; Physician,Non-Staff MRu The [place] [address] Patient Name: CHENTE GONZALEZ MRN: [id number] date: 1995 Sex: F Assigned Patient Location: [facility] Current Patient Location: [facility] Accession/Order Number: [id number] Exam Date: 05/19/2025 10:15 Report Date: 05/19/2025 [...] Mae M.D. 05/19/2025 10:54 AM Dictation Location: [employer] Electronically authenticated by: [id number] Y Date: 05/19/2025 10:54 Dictated By: Rahel Mae M.D. Signed By: 05/19/25 1056 DD/ 1054 TD/TT: Center Machine Operator: Procedure Note Radiology, Radiologist, MD - 05/19/2025 [place] [address] Ultrasound Report Signed Patient: CHENTE GONZALEZ NMR#: [id number] : 1995Acct:[id number] Age/Sex: 29 / FADM Date: 05/19/25 Loc: [facility] 250-[address]: Tyrell Adams D.O. Ordering Physician: Tyrell Adams D.O. Date of Service: 05/19/25 Procedure(s): US OB BPP w non-stress Accession Number(s): [id number] cc: Tyrell Adams D.O.; Physician,Non-Staff Alejandra The [place] [id number] Patient Name: CHENTE GONZALEZ MRN: [id number] date: 1995 Sex: F Assigned Patient Location: [facility] Current Patient Location: [facility] Accession/Order Number: [id number] Exam Date: 05/19/2025 10:15 Report Date: 05/19/2025 [...] Mae M.D. 05/19/2025 10:54 AM Dictation Location: [place] [address] Electronically authenticated by: [id number] Y Date: 0:54 Dictated By: Rahel Mae M.D. Signed By:05/19/25 1056 DD/ 1054 TD/TT: Center Machine Operator: Tyrell Angie DO CLINISYNC IMAGING Final Result [...]
--- OUTSIDE RECORDS SUMMARY | 2025-06-02 10:05 | XMS_ITS | Clinical Summary ---
Author Organization [facility] Address [address] [place] [address] Care Team Providers Care Security Monitor Name Role Phone Unavailable Primary Care Provider Unavailabl e Allergies Active Allergy Reactions Criticality Noted Date Comments Penicillins 12/23/2024 Other Reaction(s): Unknown Medications Multiple Vitamin (multivitamin) tablet Take 1 tablet by mouth Daily Active Klor-Con 20 MEQ packet DISSOLVE 1 PACKET IN 4 OZ OF WATER OR OTHER BEVERAGE AND DRINK DAILY FOR 7 DAYS 5 Active doxylamine (Unisom) 25 MG tabletIndication s:Other insomnia Take 1 tablet (25 mg) by mouth as needed at bedtime for sleep 30 tablet 5 Active Additional Information Patient not taking.Reported on 05/15/2025 Alcohol Swabs (Alcohol Prep Pad) 70 % padsIndications: Gestational diabetes mellitus (GDM), antepartum, gestational diabetes method of control unspecified (HHS-HCC),Elevat ed glucose tolerance test Apply 1 Pad topically Daily Use four times daily to check FSBS. 150 each 3 5 Active Blood Glucose Monitoring Suppl (D-Care Glucometer) w/Device kitIndications:G estational diabetes mellitus (GDM), antepartum, gestational diabetes method of control unspecified (HHS-HCC),Elevat ed glucose tolerance test 1 kit Daily Use four times daily to check FSBS. In the morning prior to breakfast & 1 hour after each meal for a total of 4times daily. 1 kit 5 03/24/20 26 Active Encounters Date Type Department Care Team Description 05/29/2025 Abstract [facility] [address] [place] [address] Deyanira Phillips LPN 05/26/2025 Patient Outreach [facility] [place] [address] Deyanira Phillips LPN 05/26/2025 Clinisync Result Encounter NOMS External Department Unsolicited Tyrell Adams, DO 05/23/2025 Abstract [place] [address] Tyrell Adams, DO 05/20/2025 Clinisync Result Encounter [facility]OMS External Department Unsolicited Tyrell Adams, DO 05/19/2025 Clinisync Result Encounter NOMS External Department Unsolicited Tyrell Adams, DO 05/15/2025 9:50 AM EDT [place] [address] Deyanira Martinez PA 33 weeks gestation of ([facility]); Third trimester ([facility]); Gestational diabetes mellitus (GDM), antepartum, gestational diabetes method of control unspecified ([facility]) 05/15/2025 Bamboo flowsheet [place] [address] Deyanira Martinez PA 04/30/2025 3:00 PM EDT [place] [address] Tyrell Adams, DO 31 weeks gestation of ([facility]); Third trimester ([facility]); Gestational diabetes mellitus (GDM), antepartum, gestational diabetes method of control unspecified ([facility]) 04/30/2025 2:30 PM EDT Ancillary [place] [address] Size of fetus inconsistent with dates in second trimester ([facility]) 04/17/2025 9:50 AM EDT [place] [phone] Deyanira Martinez PA Size of fetus inconsistent with dates in second trimester ([facility]) (Primary Dx); Third trimester ([facility]); 29 weeks gestation of ([facility]) 04/17/2025 Bamboo flowsheet [facility] [address] [place] [phone] Deyanira Martinez PA 04/03/2025 10:40 AM EDT Routine [facility] [address] [facility] [place] [phone] Tyrell Adams, Second trimester ([facility]); 27 weeks gestation of ([facility]) 04/03/2025 Bamboo flowsheet [facility] [facility] [address] [place] [place] [address] Tyrell Adams, 03/24/2025 Abstract [facility] [facility] [address] [place] [phone] Tyrell Adams, 03/24/2025 Telephone [facility] [place] [address] [place] [address] Tyrell Adams, 03/21/2025 Clinisync Result Encounter NOMS External Department Unsolicited Tyrell Adams, 03/19/2025 9:30 AM EDT Ancillary Procedure [facility] [place] [facility] [address] [place] [place] [phone] Encounter for follow-up ultrasound of anatomy ([facility]) 03/11/2025 Orders [place] [address] Britt Christensen MA 03/06/2025 Telephone [facility] [facility] [address] [facility] [place] [address] Kalyn Jacob MA 03/06/2025 Clinisync Result Encounter NOMS External Department Unsolicited Tyrell Adams DO 03/05/2025 11:00 AM EDT [place] [address] Tyrell Adams DO Second trimester ([facility]); 23 weeks gestation of ([facility]); Diabetes mellitus screening; Well woman exam with routine gynecological exam; Other insomnia 03/05/2025 Clinisync Result Encounter NOMS External Department Unsolicited Tyrell Adams DO 03/05/2025 Abstract [place] [address] Kalyn JacobATOKA, [place] 03/05/2025 Bamboo flowsheet [place] [address] Tyrell Adams DO from Last 3 Months Social [...] AM EDT Routine [facility] [place] [facility] [address] [place] [address] Nabila Avila NP [address] [facility] [address] [place] [address] Procedures Procedure Name Priority Date/Time Associated Diagnosis Comments US OB BPP W NON-STRESS 05/26/2025 11:39 AM EDT US AMNIOTIC FLUID VOLUME 05/20/2025 11:33 AM EDT MHPT FIBRINOGEN Routine 05/19/2025 11:00 [...] 10:08 AM EDT 33 weeks gestation of ([facility]) Third trimester ([facility]) POCT URINALYSIS DIPSTICK Routine 04/30/2025 3:11 PM EDT 31 weeks gestation of ([facility]) Third trimester ([facility]) US OB FOLLOW UP TRANSABDOMINAL APPROACH Routine 04/30/2025 2:49 PM EDT Size of fetus inconsistent with dates in second trimester ([facility]) POCT URINALYSIS DIPSTICK Routine 04/17/2025 10:45 AM EDT Third trimester ([facility]) 29 weeks gestation of ([facility]) POCT URINALYSIS DIPSTICK Routine 04/03/2025 10:59 AM EDT Second trimester ([facility]) 27 weeks gestation of ([facility]) CULTURE, URINE, ROUTINE Routine 03/31/2025 9:28 AM EDT Missed menses GLUCOSE TOLERANCE 3 HOUR Routine 03/21/2025 8:56 AM EDT US OB LIMITED 1+ FETUSES Routine 03/19/2025 10:09 AM EDT Encounter for follow-up ultrasound of anatomy ([facility]) ALL CBC WITH AUTO DIFF Routine 11:22 AM EDT GLUCOSE 1 HOUR Routine 03/06/2025 11:22 AM EDT POCT URINALYSIS DIPSTICK Routine 03/05/2025 11:17 AM EDT Second trimester ([facility]) IGP,APTIMA HPV,AGE GDLN Routine 03/05/2025 11:08 AM EDT PAP SMEAR Routine 03/05/2025 12:00 AM EDT from Last 3 Months Results * US OB BPP W NON-STRESS (05/26/2025 11:39 AM EDT) Only the most recent of2 resultswithin the time period is included. Anatomical Region Laterality Modality Other 05/26/2025 11:3 9 AM EDT Narrative 05/26/2025 11:42 [place] [address] Ultrasound Report Signed Patient: CHENTE GONZALEZ MR#: [id number] : 1995 Acct:[id number] Age/Sex: 29 / F ADM Date: 05/26/25 Loc: US Attending Dr: Tyrell Adams D.O. Ordering Physician: Tyrell Adams D.O. Date of Service: 05/26/25 Procedure(s): US OB BPP w non-stress Accession Number(s): [id number] cc: Tyrell Adams D.O.; Physician,Non-Staff [place] [id number] Patient Name: CHENTE GONZALEZ MRN: [id number] date: 1995 Sex: F Assigned Patient Location: [facility] Current Patient Location: Accession/Order Number: [id number] Exam Date: 05/26/2025 10:05 Report Date: 05/26/2025 [...] still below the 5th percentile. Total score: 8/8 US/US OB BPP w non-stress IMPRESSION: NORMAL BIOPHYSICAL PROFILE. CONTINUED OLIGOHYDRAMNIOS. Impression dictated by: Rahel Mae M.D. 05/26/2025 11:39 AM Dictation Location: [place] [address] Electronically authenticated by: [id number] Y Date: 05/26/2025 11:39 Dictated By: Rahel Mae M.D. Signed By: 05/26/25 1142 DD/ 1139 TD/TT: Tax Commissioner: Procedure Note Radiology, Radiologist, MD - 05/26/2025 [place] [address] Ultrasound Report Signed Patient: CHENTE GONZALEZ NMR#: [id number] : 1995Acct:[id number] Age/Sex: 29 / FADM Date: 05/26/25 Loc: US Attending Dr: Tyrell Adams D.O. Ordering Physician: Tyrell Adams D.O. Date of Service: 05/26/25 Procedure(s): US OB BPP w non-stress Accession Number(s): [id number] cc: Tyrell Adams D.O.; Physician,Non-Staff Alejandra The [place] [phone] Patient Name: CHENTE GONZALEZ MRN: [facility]:[id number] date: 1995 Sex: F Assigned Patient Location: [facility] Current Patient Location: Accession/Order Number: [id number] Exam Date: 05/26/2025 10:05 Report Date: 05/26/2025 [...] Mae M.D. 05/26/2025 11:39 AM Dictation Location: [place] [address] Electronically authenticated by: [id number] Y Date: 1:39 Dictated By: Rahel Mae M.D. Signed By:05/26/25 1142 DD/ 1139 TD/TT: Tax Commissioner: us Tyrell Adams DO CLINISYNC IMAGING Final Result * US AMNIOTIC FLUID VOLUME (05/20/2025 11:33 AM EDT) Anatomical Region Laterality Modality Radiographic Eileen ging 05/20/2025 11:3 3 AM EDT Narrative 05/20/2025 11:36 [place] [address] Ultrasound Report Signed Patient: CHENTE GONZALEZ MR#: [id number] : 1995 Acct:[id number] Age/Sex: 29 / F ADM Date: 05/20/25 Loc: [facility] 250-[address]: Tyrell Adams D.O. Ordering Physician: Tyrell Adams D.O. Date of Service: 05/20/25 Procedure(s): US OB amniotic fluid vol Accession Number(s): [id number] cc: Tyrell Adams D.O.; Physician,Non-Staff Alejandra The [address] [address] Patient Name: CHENTE GONZALEZ MRN: [id number] date: 1995 Sex: F Assigned Patient Location: [facility] Current Patient Location: US Accession/Order Number: [id number] Exam Date: 05/20/2025 11:10 Report Date: 05/20/2025 [...] Mae M.D. 05/20/2025 11:33 AM Dictation Location: [place] [address] Electronically authenticated by: [id number] Y Date: 05/20/2025 11:33 Dictated By: Rahel Mae M.D. Signed By: 05/20/25 1136 DD/ 1133 TD/TT: Tax Commissioner: Procedure Note Radiology, Radiologist, MD - 05/20/2025 [place] [address] Ultrasound Report Signed Patient: CHENTE GONZALEZ NMR#: [id number] : 1995Acct:[id number] Age/Sex: 29 / FADM Date: 05/20/25 Loc: [facility] 250-[address]: Tyrell Adams D.O. Ordering Physician: Tyrell Adams D.O. Date of Service: 05/20/25 Procedure(s): US OB amniotic fluid vol Accession Number(s): [id number] cc: Tyrell Adams D.O.; Physician,Non-Staff Alejandra The [address] [address] Patient Name: CHENTE GONZALEZ MRN: [facility]:[id number] date: 1995 Sex: F Assigned Patient Location: [facility] Current Patient Location: US Accession/Order Number: [id number] Exam Date: 05/20/2025 11:10 Report Date: 05/20/2025 [...] Mae M.D. 05/20/2025 11:33 AM Dictation Location: [facility] Electronically authenticated by: [id number] Y Date: 1:33 Dictated By: Rahel aMe M.D. Signed By:05/20/25 1136 DD/ 1133 TD/TT: Tax Commissioner: Tyrell Adams DO IMG XR PROCEDURES Final Result * TBH CREATININE (05/19/2025 11:00 AM EDT) CREATININE 0.65 0.55 - 1.02 mg/dL TBH TBH EGFR-AF TUVAL[place]AN >60 >=60 mL/min/1.7 3m 2 TBH TBH EGFR-NON AF T[place]VALUAN >60 >=60 mL/min/1.7 3m 2 TBH 05/19/2025 11:0 0 AM EDT 05/19/2025 11:06 AM EDT Narrative CLINISYNC - 05/19/2025 11:31 AM EDT Tyrell Adams DO CLINISYNC Final Result [facility]NC [facility] * SRMCOH PROTHROMBIN TIME INR W/O COUM (05/19/2025 11:00 AM EDT) PROTHROMBIN TIME 9.8 9.0 - 11.6 sec TB TB INR <0.93 TB Comment: DESIRED INR: 2.0-3.0 CONDITIONS NOT LISTED BELOW 2.5-3.5 FOR PROSTHETIC HEART VALVE REPLACEMENT 2.5-3.5 RECURRENT THROMBOSIS 05/19/2025 11:0 0 AM EDT 05/19/2025 11:06 AM EDT Narrative CLINISYNC - 05/19/2025 11:43 AM EDT SezWho Angie DO CLINISYNC Final Result [facility] * (ABNORMAL) MHPT FIBRINOGEN (05/19/2025 11:00 AM EDT) Pathologist [facility] FIBRINOGEN 552(H) 200 - 400 mg/dL [facility] 05/19/2025 11:0 0 AM EDT 05/19/2025 11:06 AM EDT Narrative CLINISYNC - 05/19/2025 11:43 AM EDT [facility] Final Result [facility] * [facility] AST (05/19/2025 11:00 AM EDT) Pathologist [facility] ASPARTATE AMINO TRANSFERASE 15 15 - 37 U/L [facility] 05/19/2025 11:0 0 AM EDT 05/19/2025 11:06 AM EDT Narrative CLINISYNC - 05/19/2025 11:31 AM EDT [facility]NC Final Result [facility] * [facility] APTT (05/19/2025 11:00 AM EDT) PARTIAL THROMBOPLASTIN TIME 24.8 22.3 - 36.2 sec TB 05/19/2025 11:0 0 AM EDT 05/19/2025 11:06 AM EDT Narrative CLINISYNC - 05/19/2025 11:43 AM EDT Tyrell Angie DO CLINISYNC Final Result Performing Organization Address [facility] de Phone Number [facility] * CCF ALT (05/19/2025 11:00 AM EDT) [facility] ALANINE AMINOTRANSFERASE 25 14 - 59 U/L TB 05/19/2025 11:0 0 AM EDT 05/19/2025 11:06 AM EDT [facility] - 05/19/2025 11:31 AM EDT [facility] Final Result Performing Organization Address [facility] Phone Number [facility] * ALL URIC ACID (05/19/2025 11:00 AM EDT) [facility] URIC ACID 4.4 2.6 - 6.0 mg/dL TB 05/19/2025 11:0 0 AM EDT 05/19/2025 11:[address] [facility] 05/19/2025 11:31 AM EDT [facility] Final Result Performing Organization Address [facility] de Phone Number [facility] * (ABNORMAL) ALL CBC WITH AUTO DIFF (05/19/2025 11:00 AM EDT) Only the most recent of2 resultswithin the time period is included. [facility] TBH WBC 10.5 4.0 - 11.0 10 [...] 05/19/2025 11:15 AM EDT Tyrell Adams DO CLINISYNC Final Result [facility] * ALL BUN (05/19/2025 11:00 AM EDT) BLOOD UREA NITROGEN 7.0 7.0 - 18.0 mg/dL TBH 05/19/2025 11:0 0 AM EDT 05/19/2025 11:06 AM EDT Narrative CLINISYNC - 05/19/2025 11:31 AM EDT Tyrell Parikho DO CLINISYNC Final Result Performing Organization Address [facility]/ZIP Co de Phone Number [facility] * (ABNORMAL) TBH URINE T PROTEIN CREAT RATIO (05/19/2025 10:50 AM EDT) TOTAL PROTEIN URINE RANDOM 35.9(H) <=11.9 mg/dL TBH CREATININE URINE RANDOM 50.11 20.00 - 300.00 mg/dL TBH PROTEIN CREATININE RATIO URINE 0.72 TBH 05/19/2025 10:5 0 AM EDT 05/19/2025 11:06 AM EDT Narrative CLINISYNC - 05/19/2025 11:55 AM EDT [facility] Parikho DO JENNIFERISYNC Final Result Performing Organization Address [facility]/ZIP Co de Phone Number [facility] * (ABNORMAL) POCT urinalysis dipstick manually resulted [...] - 9 Protein, UA Positive Negative - 1999(20) ++++ mg/dL Comment:2+ Urobilinogen, UA 1.0 0.2 - 12 mg/dL Leukocytes, UA Negative Negative - 500+++ Julio/mcL Nitrite, UA Negative Negative - Positive Urine 05/15/2025 10:0 8 AM EDT us Deyanira KABA POINT OF CARE TEST ENTER/EDIT [...] LAB BLOOD ORDERABLES Final Resul t CLINISYNC TB * US OB limited 1+ fetuses (03/19/2025 [...] II, MD, PHD at 21-Mar-2025 08:31:03 AM [facility] Procedure Note Alden Perea MD - [...] signed by ALDEN PEREA II, MD, PHD [id number] 08:31:03 AM [facility] us Nabila Avila NP IMG OB US PROCEDURES Final Re sult * (ABNORMAL) GLUCOSE 1 HOUR (03/06/2025 11:22 AM EDT) GLUCOSE 1 HOUR 141(H) <130 mg/dL TBH 03/06/2025 11:2 2 AM EDT 03/06/2025 11:24 AM EDT Narrative CLINISYNC - 03/06/2025 11:47 AM EDT us Tyrell Adams DO LAB BLOOD ORDERABLES Final Resul [...] Low,>-Panic High,A-Abnormal,AA-Critical Abnormal Performed at: 01 =G Aracelis Carter [address] [place] [phone] Mckenna Polanco MD, IGP, RFX APTIMA HPV ASCU Note . [facility] Comment: TESTS RESULT FLAG UNITS REF RANGE LAB DIAGNOSIS: 02 NEGATIVE FOR INTRAEPITHELIAL LESION OR MALIGNANCY. Specimen adequacy: 02 Satisfactory for evaluation. No endocervical component is identified. Performed by: Andres Pineda, Social Service Manager ([facility]) . 02 Note: Note 02 [...] <-Panic Low,>-Panic High,A-Abnormal,AA-Critical Abnormal Performed at: [address] [place] [address] Mckenna Polanco MD, Performed at: = - [facility] [id number] Regional Economist: Mckenna Polanco MD, Phone: [phone] Performed at: [address] [id number] Regional Economist: Mckenna Polanco MD, Phone: [phone] 03/05/2025 11:0 8 AM EDT 03/05/2025 3:05 PM EDT Narrative CLINISYNC - 03/07/2025 6:13 PM EDT SPATULA-ALONE ENDOCERVIX us Tyrell Angie DO LAB BLOOD ORDERABLES Final Resul t [facility] * Pap Smear (03/05/2025 12:00 AM EDT) Swab Cervical swab / Unknown us Tyrell Angie DO LAB CYTOLOGY ORDERABLES Final Re sult EXTERNAL LAB from Last 3 Months Insurance [employer]
--- OUTSIDE RECORDS SUMMARY | 2025-06-02 10:05 | XMS_ITS | Encounter Summary ---
[facility] Address [id number] [address] [place] [address] Care Team Providers Care Environmental Designer Name Role Phone Unavailable Primary Care Provider Unavailabl e Encounter Details Date Type Department Care Team (Late st Contact Info) Description 03/28/2025 Orders Only Maternal- Medicine at [facility] [address] [place] [id number] Domenica Ahmadi, MICROCHIP SPECIALIST Social History Tobacco Use Types Packs/Day Years [...]
--- OUTSIDE RECORDS SUMMARY | 2025-06-02 10:05 | XMS_ITS | Encounter Summary ---
Author Organization [facility] Address [address] [facility] [place] [address] Care Team Providers Care Fraud Examiner Name Role Phone Unavailable Primary Care Provider Unavailabl e Encounter Details Date Type Department Care Team ([facility] Contact Info) Description 05/23/2025 Abstract [facility] [address] [facility] [place] [id number] Jaspreet Adams DO [address] [facility] [address] [place], [facility] Social History Tobacco [...] Phillips LPN documented as of this encounter Plan of Treatment Upcoming Encounters Date Type Department Care Team (Late st Contact Info) Description 06/02/2025 11:20 AM EDT Routine [facility] [address] [facility] [place] [address] Nabila Avila, WILLIE [address] [place] [address] documented as of this encounter Visit Diagnoses Not on filedocumented in this encounter
--- OUTSIDE RECORDS SUMMARY | 2025-06-02 10:05 | XMS_ITS | Encounter Summary ---
Author Organization [facility] Address [address] [facility] [place] [address] Care Team Providers Care Suction Roller Name Role Phone Unavailable Primary Care Provider Unavailabl e Encounter Details Date Type Department Care Team (Late st Contact Info) Description 01/31/2025 Abstract [facility] [address] [place] [address] Jaspreet Adams DO [address] [place], [facility] Social History Tobacco Use Types Packs/Day [...] EDT Routine MATTIE VARGAS [address] [place] [address] Nabila Avila NP [address] [place] [address] documented as of this encounter Visit Diagnoses Not on filedocumented in this encounter
--- OUTSIDE RECORDS SUMMARY | 2025-06-02 10:05 | XMS_ITS | Encounter Summary ---
Author Organization [facility] Address [address] [facility] [place] [address] Care Team Providers Care Gear Setter Name Role Phone Unavailable Primary Care Provider Unavailabl e Encounter Details Date Type Department Care Team (Late st Contact Info) Description 12/11/2024 Abstract [facility] [address] [facility] [place] [address] Jaspreet Adams DO [address] [facility] [address] [place], [place] [address] Social History Tobacco Use Types Packs/Day Years [...] 11:20 AM EDT Routine [facility]IE [facility]ARGAS [address] [facility] [place] [address] Nabila Avila, WILLIE [address] [place] [address] documented as of this encounter Visit Diagnoses Not on filedocumented in this encounter
--- OUTSIDE RECORDS SUMMARY | 2025-06-02 10:10 | XMS_ITS | CCD ---
Author Organization [facility] Care Team Providers Care Patient Manager Name Role Phone ADEOLA COHEN Admitting Unavailable [...] (1 source) Penicillins Drug allergy (disorder) 09-28-2014 [facility] Repository (20 sources) Penicillins Drug Allergy 12-23-2024 [facility] (1 source) Penicillins Drug allergy (disorder) 02-22-2022 [facility] Repository Medications Current Medications Medication Drug Class(es) Dates Sig (Normalized) Sig (Original) Blood Glucose Monitoring Suppl (D-Care Glucometer) w/Device kit (14 sources) Start: 03-24-2025 End: 03-24-2026 Blood Glucose Monitoring Suppl (D-Care Glucometer) w/Device kit Indications: Gestational diabetes mellitus (GDM), antepartum, gestational diabetes method of control unspecified ([facility]) , Elevated glucose tolerance test 1 kit Daily Use four times daily to check FSBS. In the morning prior to breakfast & 1 hour after each meal for a total of 4times daily. 1 kit 03/24/2025 03/24/2026 Active doxylamine succinate 25 mg oral tablet (19 sources) Start: 03-05-2025 End: 04-04-2025 doxylamine (Unisom) 25 MG tablet Indications: Other insomnia Take 1 tablet (25 mg) by mouth as needed at bedtime for sleep 30 tablet 03/05/2025 Active isopropyl alcohol 0.7 ml/ml medicated pad (14 sources) Start: 03-24-2025 Alcohol Swabs (Alcohol Prep Pad) 70 % pads Indications: Gestational diabetes mellitus (GDM), antepartum, gestational diabetes method of control unspecified ([facility]) , Elevated glucose tolerance test Apply [...] 25 mg supposito ry Discontinued 25 MG IA Q6H as needed for nausea and vomiting [...] Drug Class(es) Dates Sig (Normalized) Sig (Original) [id number] 200 actuat albuterol 0.09 mg/actuat metered dose [...] D2) 1,250 mcg (50,000 unit) Capsule Discontinued 29741 UNIT PO every week 4 December 27, [...] Range Facility OB BPP W NON-STRESS on 05-26-2025 [place] [address] Ultrasound Report Signed Patient: CHENTE GONZALEZ MR#: [id number] : 1995 Acct:[id number] Age/Sex: 29 / F ADM Date: 05/26/25 Loc: US Attending Dr: Jaspreet Adams D.O. Ordering Physician: Jaspreet Adams D.O. Date of Service: 05/26/25 Procedure(s): US OB BPP w non-stress Accession Number(s): [id number] cc: Jaspreet Adams D.O.; Physician,Non-Staff M.Tony The [place] [id number] Patient Name: CHENTE GONZALEZ MRN: [facility]:[id number] date: 1995 Sex: F Assigned Patient Location: [facility] Current Patient Location: Accession/Order Number: [id number] Exam Date: 05/26/2025 10:05 Report Date: 05/26/2025 11:39 At the request of: JASPREET AADMS DO [...] still below the 5th percentile. Total score: 8/ US/US OB BPP w non-stress IMPRESSION: NORMAL BIOPHYSICAL PROFILE. CONTINUED OLIGOHYDRAMNIOS. Impression dictated by: Rahel Mae M.D. 05/26/2025 11:39 AM Dictation Location: [place] [address] Electronically authenticated by: [id number] Y Date: 05/26/2025 11:39 Dictated By: Rahel Mae M.D. Signed By: 05/26/25 1142 DD/ 1139 TD/TT: [employer] Head: [facility] Radiology, Radiologi MD guilherme - 05/26/2025 [place] [address] Ultrasound Report Signed Patient: CHENTE GONZALEZ MR#: [id number] : 1995 Acct:[id number] Age/Sex: 29 / F ADM Date: 05/26/25 Loc: US Attending Dr: Jaspreet Adams D.O. Ordering Physician: Jaspreet Adams D.O. Date of Service: 05/26/25 Procedure(s): US OB BPP w non-stress Accession Number(s): [id number] cc: Jaspreet Adams D.O.; Physician,Non-Staff Alejandra The [address] [address] Patient Name: CHENTE GONZALEZ MRN: [facility]:[id number] date: 1995 Sex: F Assigned Patient Location: [facility] Current Patient Location: Accession/Order Number: [id number] Exam Date: 05/26/2025 10:05 Report Date: 05/26/2025 11:39 At the request of: JASPREET ADAMS DO [...] Mae M.D. 05/26/2025 11:39 AM Dictation Location: [place] [address] Electronically authenticated by: [id number] Y Date: 05/26/2025 11:39 Dictated By: Rahel Mae M.D. Signed By: 05/26/25 1142 DD/ 1139 TD/TT: [employer] Head: [facility] Radiology Study observation (narrative) [facility] US OB BPP W NON-STRESS Ordered By: Radiologist Radiology on 05-26-2025 [facility] Work Phone: US AMNIOTIC FLUID VOLUMEon 0 05-20-2025 [place] [address] Ultrasound Report Signed Patient: CHENTE GONZALEZ MR#: [id number] : 1995 Acct:[id number] Age/Sex: 29 / F ADM Date: 05/20/25 Loc: [facility] 250-[address]: Jaspreet Adams D.O. Ordering Physician: Jaspreet Adams D.O. Date of Service: 05/20/25 Procedure(s): US OB amniotic fluid vol Accession Number(s): [id number] cc: Jaspreet Adams D.O.; Physician,Non-Staff Alejandra The [address] [address] Patient Name: CHENTE GONZALEZ MRN: [facility]:[id number] date: 1995 Sex: F Assigned Patient Location: [facility] Current Patient Location: US Accession/Order Number: [id number] Exam Date: 05/20/2025 11:10 Report Date: 05/20/2025 [...] NORMAL AMNIOTIC FLUID VOLUME. Impression dictated by: aRhel Mae M.D. 05/20/2025 11:33 AM Dictation Location: [place] [address] Electronically authenticated by: [id number] Y Date: 05/20/2025 11:33 Dictated By: Rahel Mae M.D. Signed By: 05/20/25 1136 DD/ 1133 TD/TT: [employer] Head: [facility] Radiology, Radiologi MD guilherme - 05/20/[address] [address] Ultrasound Report Signed Patient: CHENTE GONZALEZ MR#: [id number] : 1995 Acct:[id number] Age/Sex: 29 / F ADM Date: 05/20/25 Loc: [facility] 250-[address]: Jaspreet Adams D.O. Ordering Physician: Jaspreet Adams D.O. Date of Service: 05/20/25 Procedure(s): US OB amniotic fluid vol Accession Number(s): [id number] cc: Jaspreet Adams D.O.; Physician,Non-Staff Alejandra [place] [id number] Patient Name: CHENTE GONZALEZ MRN: [id number] date: 1995 Sex: F Assigned Patient Location: [facility] Current Patient Location: US Accession/Order Number: [id number] Exam Date: 05/20/2025 11:10 Report Date: 05/20/2025 [...] Mae M.D. 05/20/2025 11:33 AM Dictation Location: [place] [address] Electronically authenticated by: [id number] Y Date: 05/20/2025 11:33 Dictated By: Rahel Mae M.D. Signed By: 05/20/25 1136 DD/ 1133 TD/TT: [employer] Head: [facility] Radiology Study observation (narrative) [facility] US AMNIOTIC FLUID VOLUMEOrde red By: Radiologist Radiology on 05-20-2025 [facility] Work Phone: US OB BPP W NON-STRESS on 05-19-[address] [address] Ultrasound Report Signed Patient: CHENTE GONZALEZ MR#: [id number] : 1995 Acct:[id number] Age/Sex: 29 / F ADM Date: 05/19/25 Loc: [facility] 250-1 Attending : Jaspreet Adams D.O. Ordering Physician: Jaspreet Adams D.O. Date of Service: 05/19/25 Procedure(s): US OB BPP w non-stress Accession Number(s): [id number] cc: Jaspreet Adams D.O.; Physician,Non-Staff Alejandra [place] [id number] Patient Name: CHENTE GONZALEZ MRN: [facility]:[id number] date: 1995 Sex: F Assigned Patient Location: [facility] Current Patient Location: [facility] Accession/Order Number: [id number] Exam Date: 05/19/2025 10:15 Report Date: 05/19/2025 [...] Mae M.D. 05/19/2025 10:54 AM Dictation Location: [place] [address] Electronically authenticated by: [id number] Y Date: 05/19/2025 10:54 Dictated By: Rahel Mae M.D. Signed By: 05/19/25 1056 DD/ 1054 TD/TT: [employer] Head: [facility] Radiology, Radiologi MD guilherme - 05/19/2025 [place] [address] Ultrasound Report Signed Patient: CHENTE GONZALEZ MR#: [id number] : 1995 Acct:[id number] Age/Sex: 29 / F ADM Date: 05/19/25 Loc: [facility] 250-[address]: Jaspreet Adams D.O. Ordering Physician: Jaspreet Adams D.O. Date of Service: 05/19/25 Procedure(s): US OB BPP w non-stress Accession Number(s): [id number] cc: Jaspreet Adams D.O.; Physician,Non-Staff Alejandra The [place] [address] Patient Name: CHENTE GONZALEZ MRN: [id number] date: 1995 Sex: F Assigned Patient Location: [facility] Current Patient Location: [facility] Accession/Order Number: [id number] Exam Date: 05/19/2025 10:15 Report Date: 05/19/2025 [...] Mae M.D. 05/19/2025 10:54 AM Dictation Location: [place] [address] Electronically authenticated by: [id number] Y Date: 05/19/2025 10:54 Dictated By: Rahel Mae M.D. Signed By: 05/19/25 1056 DD/ 1054 TD/TT: Global Analytics Head: [facility] Radiology Study observation (narrative) [facility] US OB BPP W NON-STRESS Ordered By: Radiologist Radiology on 05-19-2025 [facility] Work Phone: Urinalysis macro (dipstick) panel (U)on 05-15-2025 Bilirubin, UA Negative Negative - 4(70) +++ mg/dL [facility] Blood, UA Positive Negative - 50 Derick/mcL [facility] Comment on above: 1+ Clarity, UA Clear [facility] Color, UA Straw [facility] Glucose, UA Negative Negative - 2000(110) ++++ mg/dL [facility] Interpretation and review of laboratory results Abnormal [facility] Ketones, UA Negative Negative - 160(16) ++++ mg/dL [facility] Leukocytes, UA Negative Negative - 500+++ Julio/mcL [facility] Nitrite, UA Negative Negative - Positive [facility] pH, UA 6 5 - 9 [facility] Protein, UA Positive Negative - 2000(20) ++++ mg/dL [facility] Comment on above: 2+ Spec Grav, UA 1.02 1 - 1.03 [facility] Urobilinogen, UA 1.0 0.2 - 12 mg/dL [facility] US OB FOLLOW UP TRANSABDOMIN AL APPROACHon [...] UA Negative Negative - 4(70) +++ mg/dL [facility] Blood, UA Positive Negative - 50 Derick/mcL [facility] Comment on above: 1+ Clarity, UA Clear [facility] Color, UA Yellow [facility] Glucose, UA Negative Negative - 1999(110) ++++ mg/dL [facility] Interpretation and review of laboratory results Abnormal [facility] Ketones, UA Negative Negative - 160(16) ++++ mg/dL [facility] Leukocytes, UA Negative Negative - 500+++ Julio/mcL [facility] Nitrite, UA Negative Negative - Positive [facility] pH, UA 6 5 - 9 [facility] Protein, UA Positive Negative - 1999(20) ++++ mg/dL [facility] Spec Grav, UA 1.01 1 - 1.03 [facility] Urobilinogen, UA 1.0 0.2 - 12 mg/dL [facility] Urinalysis macro (dipstick) panel (U)on 04-17-2025 Bilirubin, UA Negative Negative - 4(70) +++ mg/dL [facility] Blood, UA Positive Negative - 50 Derick/mcL [facility] Clarity, UA Clear [facility] Color, UA Yellow [facility] Glucose, UA Negative Negative - 2000(110) ++++ mg/dL [facility] Interpretation and review of laboratory results Abnormal [facility] Ketones, UA Negative Negative - 160(16) ++++ mg/dL [facility] Leukocytes, UA Positive Negative - 500+++ Julio/mcL [facility] Nitrite, UA Negative Negative - Positive [facility] pH, UA 6 5 - 9 [facility] Protein, UA Negative Negative - 2000(20) ++++ mg/dL [facility] Spec Grav, UA 1.015 1 - 1.03 [facility] Urobilinogen, UA 1.0 0.2 - 12 mg/dL [facility] Urinalysis macro (dipstick) panel (U)on 04-03-2025 Bilirubin, UA Negative Negative - 4(70) +++ mg/dL [facility] Blood, UA Positive Negative - 50 Derick/mcL [facility] Clarity, UA Clear [facility] Color, UA Yellow [facility] Glucose, UA Negative Negative - 1999(110) ++++ mg/dL [facility] Interpretation and review of laboratory results Abnormal [facility] Ketones, UA Negative Negative - 160(16) ++++ mg/dL [facility] Leukocytes, UA Negative Negative - 500+++ Julio/mcL [facility] Nitrite, UA Negative Negative - Positive [facility] pH, UA 6.5 5 - 9 [facility] Protein, UA Negative Negative - 1999(20) ++++ mg/dL [facility] Spec Grav, UA 1.015 1 - 1.03 [facility] Urobilinogen, UA 1.0 0.2 - 12 mg/dL [facility] GLUCOSE TOLERANCE 3 HOURon 0 03-21-2025 GLUCOSE TOLERANCE 3 HOUR High mg/dL [facility] Comment on above: GLU FAST 86 (<95) Co l: 03/21/25 0856 GLU 1HR 181H (<180) Col: 03/21/25 1002 GLU 2HR 162H (<155) Col: 03/21/25 1102 GLU 3HR 75 (<140) Col: 03/21/25 1202 Interpretation and review of laboratory results Abnormal [facility] US OB LIMITED 1+ FETUSESon 0 [...] II, MD, PHD at 21-Mar-2025 08:31:03 AM [facility] Normal Not Available Comment on above: Order Comment: US OB INCOMPLETE ANATOMY Estimated Date of Delivery: 07/01/25 Gestational Age as of 02/24/2025: 21w6d IGP,APTIMA HPV,AGE GDLNon AGE GDLN ACOG TESTING Note . [facility] Comment on above: TESTS RESULT FLAG UN ITS REF RANGE LAB Clinician Provided Cytology Information Source.............[employer] Other.............. No. of containers..01 ThinPrep Vial Age Algo ACOG Mandie... -25 09 FLAG LEGEND: L-Low Normal,H-High Normal,LL-Alert Low,HH-Alert High <-Panic Low,>-Panic High,A-Abnormal,AA-Critical Abnormal Performed at: 01 =[address] [address] Mckenna Polanco MD, IGP, RFX APTIMA HPV ASCU Note . [facility] Comment on above: TESTS RESULT FLAG UN ITS REF RANGE LAB DIAGNOSIS: 02 NEGATIVE FOR INTRAEPITHELIAL LESION OR MALIGNANCY. Specimen adequacy: 02 Satisfactory for evaluation. No endocervical component is identified. Performed by: 02 Venrell Pineda, Oracle Database Developer ([facility]) . 02 Note: Note 02 The [...] <-Panic Low,>-Panic High,A-Abnormal,AA-Critical Abnormal Performed at: [address] [place] [address] Mckenna Polanco MD, Performed at: = - [facility] [id number] Display Associate: Mckenna Polanco MD, Phone: [phone] Performed at: [facility] [place] [id number] Display Associate: Mckenna Polanco MD, Phone: [phone] [facility] GLU[facility]SE 1 HOURon 03-06-2025 Glucose [Mass/Vol] 141 mg/dL High NINF - 13 0 mg/dL [facility] Interpretation and review of laboratory results Abnormal [facility]IN[facility] Glucose tolerance, 1 houron 03-06-2025 Glucose Tolerance Test [address] [facility] No Panel Informationon 03-06 [facility] Urinalysis macro (dipstick) panel (U)on 03-05-2025 Bilirubin, UA Negative Negative - 4(70) +++ mg/dL [facility] Blood, UA Negative Negative - 50 Derick/mcL [facility] Clarity, UA Clear [facility] Color, UA Yellow [facility] Glucose, UA Negative Negative - 2000(110) ++++ mg/dL [facility] Interpretation and review of laboratory results Normal [facility] Ketones, UA Negative Negative - 160(16) ++++ mg/dL [facility] Leukocytes, UA Negative Negative - 500+++ Julio/mcL [facility] Nitrite, UA Negative Negative - Positive [facility] pH, UA 6 5 - 9 [facility] Protein, UA Negative Negative - 2000(20) ++++ mg/dL [facility] Spec Grav, UA 1.01 1 - 1.03 [facility] Urobilinogen, UA 0.2 0.2 - 12 mg/dL [facility] US OB 14+ WEEKS ANATOMY SCAN on [...] II, MD, PHD at 20-Feb-2025 09:47:05 AM [facility] Normal Not Available Comment on above: Order Comment: US OB ANATOMY SINGLE W US OB CERVICAL LENGTH Estimated Date of Delivery: 07/01/25 Gestational Age as of 02/12/2025: 20w1d HBV surface Ag IA Qlon 02-01 Hepatitis B Surface Antigen Negative [facility] BOX TESTon 01-31-2025 BOX TEST SENT OUT [facility] [email or web address] [address] [facility] [address] 01/31/25 [facility] BOX [facility] Drug Screen, Urineon 025 Amphetamine/Methamphet amine Negative [facility]ines [facility] Cocaine Metabolite Negative [facility] Ecstasy Negative [facility] Methadone Negative [facility] Opiates Negative [facility] Oxycodone Negative [facility] Phencyclidine Negative [facility] Thc Marijuana, Urine Positive [facility] HIV 1+2 Ab+HIV1 p24 Ag IA Ql on 01-31-2025 HIV 1&2 AB/AG Non-Reactive [facility] Hemoglobin A1con 01-31-2025 HbA1c (Bld) [Mass fraction] 4.9 % 4.0 - 6.0 % [facility] No Panel Informationon 01-31 [facility] Rubella IGG immune statuson 01-31-2025 Rubella immune IgG 7.29 [facility] Type and screenon 01-31-2025 Abo/Rh(D) Negative [facility] No Panel Informationon 01-30 STAPHYLOCOCCUS EPIDERMIDIS, HAEMOLYTICUS, [...] Healthcare STREPTOCOCCUS AGALACTIAE (GROUP B STREP) 0 [facility] STREPTOCOCCUS AGALACTIAE (GROUP B STREP) Not detected [facility] STREPTOCOCCUS PYOGENES (GROUP A STREP) 0 [facility] STREPTOCOCCUS PYOGENES (GROUP A STREP) Not detected [facility] Urinalysis macro (dipstick) panel (U)on 01-29-2025 Bilirubin, UA Negative Negative - 4(70) +++ mg/dL [facility] Blood, UA Positive Negative - 50 Derick/mcL [facility] Comment on above: Trace-intact Clarity, UA Clear [facility] Color, UA Yellow [facility] Glucose, UA Negative Negative - 2000(110) ++++ mg/dL [facility] Interpretation and review of laboratory results Abnormal [facility] Ketones, UA Negative Negative - 160(16) ++++ mg/dL [facility] Leukocytes, UA Negative Negative - 500+++ Julio/mcL [facility] Nitrite, UA Negative Negative - Positive [facility] pH, UA 7 5 - 9 [facility] Protein, UA Trace Negative - 2000(20) ++++ mg/dL [facility] Spec Grav, UA 1.02 1 - 1.03 [facility] Urobilinogen, UA 1.0 0.2 - 12 mg/dL [facility] HCG ( test) Ql (U)o n 01-24-2025 Interpretation and review of laboratory results Abnormal [facility] Preg Test, Ur Positive Negative [facility] US OB LIMITED 1+ FETUSESon 0 01-24-2025 [...] II, MD, PHD at 27-Jan-2025 10:23:04 AM [facility] Normal Not Available Comment on above: Order Comment: US OB TRANSVAGINAL No LMP recorded. Urinalysis macro (dipstick) panel (U)on 01-24-2025 Bilirubin, UA Negative Negative - 4(70) +++ mg/dL [facility] Blood, UA Positive Negative - 50 Derick/mcL [facility] Comment on above: Trace-Intact Clarity, UA Clear [facility] Color, UA Yellow [facility] Glucose, UA Negative Negative - 2000(110) ++++ mg/dL [facility] Interpretation and review of laboratory results Abnormal [facility] Ketones, UA Negative Negative - 160(16) ++++ mg/dL [facility] Leukocytes, UA Negative Negative - 500+++ Julio/mcL [facility] Nitrite, UA Negative Negative - Positive [facility] pH, UA 7 5 - 9 [facility] Protein, UA Negative Negative - 2000(20) ++++ mg/dL [facility] Spec Grav, UA 1.02 1 - 1.03 [facility] Urobilinogen, UA 0.2 0.2 - 12 mg/dL [facility] Urine Cultureon 01-06-2025 Bacteria identified Cx Nom (U) No Growth 2 Days PERFORMED BY: [place] [address] PATHOLOGIST ACCOUNTS RECEIVABLE CLERK RAHUL HOLCOMB M.D. Normal [facility] Comment on above: Performed By: #### C UU #### [address] Amphetamine Screen Ql (U)Ord ered By: Denny Azevedo on 08-11-2023 Amphetamines Ql (U) Negative Negative [facility] Amylase [Enzymatic activity/ volume] in Serum or PlasmaOrdered By: Denny Azevedo on 08-11-2023 Amylase [Catalytic activity/Vol] 32 U/L 29-103 [facility] Aspartate aminotransferase [ Enzymatic activity/volume] in Serum or PlasmaOrdered By: Denny Azevedo on 08-11-2023 AST [Catalytic activity/Vol] 24 U/L 13-39 [facility] Automated erythrocytes count in urine sediment (number/area)Ordered By: Denny Azevedo on 08-11-2023 RBC Auto (Urine sed) [#/Area] 10-19 [HPF] 0-4 [facility] Automated leukocytes count i n urine sediment (number/area)Ordered By: Denny Azevedo on 08-11-2023 WBC Auto (Urine sed) [#/Area] 3-4 [HPF] 0-4 [facility] Barbiturates [Presence] in U rine by Screen methodOrdered By: Denny Azevedo on 08-11-2023 Barbiturates Screen Ql (U) Negative Negative [facility] Basophils Auto (Bld) [#/Vol] Ordered By: Denny Azevedo on 08-11-2023 Basophils (Bld) [#/Vol] 0.1 10*3/uL 0.0-0.2 [facility] Basophils/100 WBC Auto (Bld) Ordered By: Denny Azevedo on 08-11-2023 Basophils/100 WBC (Bld) 0.9 % . [facility] Benzodiazepines Screen Ql (U )Ordered By: Denny Azevedo on 08-11-2023 Benzodiazepines Ql (U) Negative Negative [facility] Benzoylecgonine [Presence] i n Urine by Screen methodOrdered By: Denny Azevedo on 08-11-2023 Benzoylecgonine Screen Ql (U) Negative Negative [facility] Bilirubin Test strip Ql (U)O rdered By: Denny Azevedo on 08-11-2023 Bilirubin Ql (U) Negative Negative [facility] Cannabinoids [Presence] in U rine by Screen methodOrdered By: Denny Azevedo on 08-11-2023 Cannabinoids Screen Ql (U) Positive Negative [facility] Comment on above: These are unconfirme d results and should not be used for legal purposes. Drug Cut-Off Concentration: AMPH 1000 ng/mL THOMAS 200 ng/mL ARTHUR 200 ng/mL COCM 300 ng/mL OP 300 ng/mL PCP 25 ng/mL THC 20 ng/mL Carbon dioxide, total [Moles /volume] in Serum or PlasmaOrdered By: Denny Azevedo on 08-11-2023 CO2 [Moles/Vol] 17.8 mmol/L 21.0-31.0 [facility] Chloride [Moles/volume] in S marline or PlasmaOrdered By: Denny Azevedo on 08-11-2023 Chloride [Moles/Vol] 108 mmol/L 98-107 [facility] Color Auto (U)Ordered By: French Azevedo on 08-11-2023 Color (U) Yellow Yellow [facility] [facility] Creatine kinase [Enzymatic a ctivity/volume] in Serum or PlasmaOrdered By: Denny Azevedo on 08-11-2023 CK [Catalytic activity/Vol] 225 U/L 30-223 [facility] Creatinine [Mass/volume] in Serum or PlasmaOrdered By: Denny Azevedo on 08-11-2023 Creatinine [Mass/Vol] 0.68 mg/dL 0.60-1.20 [facility] Eosinophils Auto (Bld) [#/Vo l]Ordered By: Denny Azevedo on 08-11-2023 Eosinophils (Bld) [#/Vol] 0.1 10*3/uL 0.0-0.45 [facility] Eosinophils/100 WBC Auto (Bl d)Ordered By: Denny Azevedo on 08-11-2023 Eosinophils/100 WBC (Bld) 1.3 % . [facility] Erythrocyte distribution wid th Auto (RBC) [Ratio]Ordered By: Denny Azevedo on 08-11-2023 Erythrocyte distribution width (RBC) [Ratio] 12.9 % 11.9-15.3 [facility] Ethanol [Mass/volume] in Ser um or PlasmaOrdered By: Denny Azevedo on 08-11-2023 Ethanol [Mass/Vol] mg/dL [facility] Ethanol [Mass/Vol] TNP [facility] Comment on above: Test not performed Glucose [Mass/volume] in Ser um or PlasmaOrdered By: Denny Azevedo on 08-11-2023 Glucose [Mass/Vol] 109 mg/dL 70-100 [facility] Comment on above: ADA recommended refe rence rangeRandom Glucose Reference Range is dependent on time and content of last meal. Glucose of more than 200 mg/dL in a nonstressed, ambulatory subject supports the diagnosis of Diabetes Mellitus. HCG ( test) IA.rapi d Ql (U)Ordered By: Denny Azevedo on 08-11-2023 HCG ( test) Ql (U) Negative [facility] Hematocrit Auto (Bld) [Volum e fraction]Ordered By: Denny Azevedo on 08-11-2023 Hematocrit (Bld) [Volume fraction] 40.4 % 34.0-46.4 [facility] Hemoglobin [Mass/volume] in BloodOrdered By: Denny Azevedo on 08-11-2023 Hemoglobin (Bld) [Mass/Vol] 14.2 g/dL 11.8-15.4 [facility] INR in Platelet poor plasma by Coagulation assayOrdered By: Denny Azevedo on 08-11-2023 INR Coag (PPP) [Relative time] 1.0 {INR} [facility] Comment on above: INR Therapeutic Rang e [...] on 08-11-2023 Ketones (U) [Mass/Vol] Trace Negative [facility] - UrinalysisOrder ed By: Denny Azevedo on 08-11-2023 Hyaline casts LM Ql (Urine sed) 0-8 [LPF] 0-8 [facility] Leukocytes [#/volume] correc sonja for nucleated erythrocytes in Blood by Automated counOrdered By: Denny Azevedo on 08-11-2023 WBC corrected for nucl RBC Auto (Bld) [#/Vol] 7.9 10*3/uL 3.8-11.6 [facility] Lipase [Enzymatic activity/v olume] in Serum or PlasmaOrdered By: Denny Azevedo on 08-11-2023 Lipase [Catalytic activity/Vol] 13.0 U/L 11.0-82.0 [facility] Lymphocytes Auto (Bld) [#/Vo l]Ordered By: Denny Azevedo on 08-11-2023 Lymphocytes (Bld) [#/Vol] 1.8 10*3/uL 1.00-4.8 [facility] Lymphocytes/100 WBC Auto (Bl d)Ordered By: Denny Azevedo on 08-11-2023 Lymphocytes/100 WBC (Bld) 23.1 % . [facility] MCH Auto (RBC) [Entitic mass ]Ordered By: Denny Azevedo on 08-11-2023 MCH (RBC) [Entitic mass] 30.4 pg 24.7-34.3 [facility] MCHC Auto (RBC) [Mass/Vol]Or dered By: Denny Azevedo on 08-11-2023 MCHC (RBC) [Mass/Vol] 35.1 g/dL 32.0-35.0 [facility] MCV Auto (RBC) [Entitic vol] Ordered By: Denny Azevedo on 08-11-2023 MCV (RBC) [Entitic vol] 86.7 fL 80-100 [facility] Monocyte distribution width [Entitic volume] in Blood by AutomatedOrdered By: Denny Azevedo on 08-11-2023 Monocyte distribution width Auto (Bld) [Entitic vol] 17.99 % 0.00-20.00 [facility] Monocytes Auto (Bld) [#/Vol] Ordered By: Denny Azevedo on 08-11-2023 Monocytes (Bld) [#/Vol] 0.5 10*3/uL 0.0-0.8 [facility] Monocytes/100 WBC Auto (Bld) Ordered By: Denny Azevedo on 08-11-2023 Monocytes/100 WBC (Bld) 6.9 % . [facility] Neutrophils Auto (Bld) [#/Vo l]Ordered By: Denny Azevedo on 08-11-2023 Neutrophils (Bld) [#/Vol] 5.4 10*3/uL 1.8-7.7 [facility] Neutrophils/100 WBC Auto (Bl d)Ordered By: Denny Azevedo on 08-11-2023 Neutrophils/100 WBC (Bld) 67.8 % . [facility] Nitrite Test strip Ql (U)Ord ered By: Denny Azevedo on 08-11-2023 Nitrite Ql (U) Negative Negative [facility] No Panel InformationOrdered By: Denny Azevedo on 08-11-2023 Estimated GFR (CKD-EPI) > 60.0 mL/Min [facility] Creatinine Clearance (Chem 138.27 [facility] Nucleated erythrocytes [Pres ence] in Blood by Automated countOrdered By: Denny Azevedo on 08-11-2023 Nucleated RBC Auto Ql (Bld) 0.1 /100{WBC} 0-0.5 [facility] Opiates [Presence] in Urine by Screen methodOrdered By: Denny Azevedo on 08-11-2023 Opiates Screen Ql (U) Negative Negative [facility] Phencyclidine Screen Ql (U)O rdered By: Denny Azevedo on 08-11-2023 Phencyclidine Ql (U) Negative Negative [facility] Platelet mean volume Auto (B ld) [Entitic vol]Ordered By: Denny Azevedo on 08-11-2023 Platelet mean volume (Bld) [Entitic vol] 7.7 fL 6.3-10.7 [facility] Platelets Auto (Bld) [#/Vol] Ordered By: Denny Azevedo on 08-11-2023 Platelets (Bld) [#/Vol] 307 10*3/uL 150-450 [facility] Potassium [Moles/volume] in Serum or PlasmaOrdered By: Denny Azevedo on 08-11-2023 Potassium [Moles/Vol] 3.3 mmol/L 3.5-5.1 [facility] Protein Auto test strip (U) [Mass/Vol]Ordered By: Denny Azevedo on 08-11-2023 Protein (U) [Mass/Vol] 30 mg/dL Negative [facility] Prothrombin time (PT)Ordered By: Denny Azevedo on 08-11-2023 PT Coag (PPP) [Time] 12.1 s 9.0-12.9 [facility] Comment on above: A hematocrit value g reater than 55% may lead to inaccurate results in coagulation testing. Patients having hematocrit values >55% require a special collection tube for coagulation studies. Please contact the laboratory at [phone] for redraw instructions. RBC Auto (Bld) [#/Vol]Ordere d By: Denny Azevedo on 08-11-2023 RBC (Bld) [#/Vol] 4.66 10*6/uL 3.60-5.00 [facility] Serum or plasma anion gap de terminationOrdered By: Denny Azevedo on 08-11-2023 Anion gap [Moles/Vol] 15.5 mmol/L 6.0-15.0 [facility] Sodium [Moles/volume] in Ser um or PlasmaOrdered By: Denny Azevedo on 08-11-2023 Sodium [Moles/Vol] 138 mmol/L 136-145 [facility] Specific gravity Auto test s trip (U) [Rel density]Ordered By: Denny Azevedo on 08-11-2023 Specific gravity (U) [Rel density] 1.026 1.001-1.03 0 [facility] Squamous epithelial cells de tection in urine sediment by light microscopyOrdered By: Denny Azevedo on 08-11-2023 Epithelial cells.squamous LM Ql (Urine sed) 0-1 [HPF] 0-2 [facility] Urea nitrogen [Mass/volume] in Serum or PlasmaOrdered By: Denny Azevedo on 08-11-2023 Urea nitrogen [Mass/Vol] 11 mg/dL 7-25 [facility] Urine bacteria detection by automated methodOrdered By: Denny Azevedo on 08-11-2023 Bacteria Auto Ql (U) None seen None Seen [facility] Urine clarity by refractomet ry automatedOrdered By: Denny Azevedo on 08-11-2023 Clarity Refractometry automated (U) Clear Clear [facility] Urine glucose measurement by automated test strip (mass/volume)Ordered By: Denny Azevedo on 08-11-2023 Glucose Auto test strip (U) [Mass/Vol] Normal mg/dL Normal [facility] Urine hemoglobin detection b y automated test stripOrdered By: Denny Azevedo on 08-11-2023 Hemoglobin Auto test strip Ql (U) 2+ Negative [facility] Urine leukocyte esterase det ection by automated test stripOrdered By: Denny Azevedo on 08-11-2023 Leukocyte esterase Auto test strip Ql (U) Negative Negative [facility] Urobilinogen Auto test strip (U) [Mass/Vol]Ordered By: Denny Azevedo on 08-11-2023 Urobilinogen (U) [Mass/Vol] Normal mg/dL Normal [facility] WBC Auto (Bld) [#/Vol]Ordere d By: Denny Azevedo on 08-11-2023 WBC (Bld) [#/Vol] 7.9 10*3/uL 3.8-11.6 [facility] pH Auto test strip (U)Ordere d By: Denny Azevedo on 08-11-2023 pH (U) 6.5 [pH] 5.0-9.0 [facility] BILIRUBIN CONJUGATED (DIRECT )on 03-03-2022 BILI, CONJUGATED 0.3 mg/dL Critically high 0.0-0.2 [facility] Comment on above: Performed By: #### D FERNANDEZ #### [facility] [address] [place] [address] Dr. Yaritza Bojorquez CBC AUTO DIFFon 03-03-2022 BASO # 0.1 103/ul Normal 0.0-0.1 [facility] Comment on above: Performed By: #### C BC #### [facility] [address] [place] [address] Dr. Yaritza Bojorquez Basophils/100 WBC (Bld) 0.5 % Normal 0.2-2.0 [facility] Comment on above: Performed By: #### C BC #### [facility] [address] [place] [address] Dr. Yaritza Bojorquez EO # 0.0 103/ul Normal 0.0-0.7 [facility] Comment on above: Performed By: #### C BC #### [facility] [address] [place] [address] Dr. Yaritza Bojorquez Eosinophils/100 WBC (Bld) 0.1 % Critically low 0.9-7.0 [facility] Comment on above: Performed By: #### C BC #### [facility] [address] [place] [address] Dr. Yaritza Bojorquez Erythrocyte distribution width (RBC) [Ratio] 12.1 % Normal 11.0-15.0 [facility] Comment on above: Performed By: #### C BC #### [facility] [address] [place] [address] Dr. Yaritza Bojorquez Hematocrit (Bld) [Volume fraction] 45.0 % Normal 36.0-48.0 [facility] Comment on above: Performed By: #### C BC #### [facility] [address] [place] [address] Dr. Yaritza Bojorquez Hemoglobin (Bld) [Mass/Vol] 16.5 g/dL Critically high 12.0-16.0 [facility] Comment on above: Performed By: #### C BC #### [facility] [address] [place] [address] Dr. Yaritza Bojorquez IG # 0.05 10e3/ul Critically high 0.00-0.03 [facility] Comment on above: Performed By: #### C BC #### [facility] [address] [place] [address] Dr. Yaritza Bojorquez IG % 0.3 % Normal 0.0-0.5 [facility] Comment on above: Performed By: #### C BC #### [facility] [address] [place] [address] Dr. Yaritza Bojorquez LYMPH # 3.2 103/ul Normal 1.2-3.8 [facility] Comment on above: Performed By: #### C BC #### [facility] [address] [place] [address] Dr. Yaritza Bojorquez Lymphocytes/100 WBC (Bld) 21.6 % Normal 20.5-60.0 [facility] Comment on above: Performed By: #### C BC #### [facility] [address] [place] [address] Dr. Yaritza Bojorquez MANUAL DIFF REQ NO Normal [facility] Comment on above: Performed By: #### C BC #### [facility] [address] [place] [address] Dr. Yaritza Bojorquez MCH (RBC) [Entitic mass] 30.7 pg Normal 26.7-34.0 [facility] Comment on above: Performed By: #### C BC #### [facility] [address] [address] [address] Yaritza Bojorquez MCHC (RBC) [Mass/Vol] 36.7 g/dL Critically high 29.9-35.2 [facility] Comment on above: Performed By: #### C BC #### [facility] [address] [place] [address] Dr. Yaritza Bojorquez MCV (RBC) [Entitic vol] 83.8 fL Normal 81.0-99.0 [facility] Comment on above: Performed By: #### C BC #### [facility] [address] [place] [address] Dr. Yaritza Bojorquez MONO # 0.8 103/ul Normal 0.3-0.8 [facility] Comment on above: Performed By: #### C BC #### [facility] [address] [place] [address] Dr. Yaritza Bojorquez Monocytes/100 WBC (Bld) 5.3 % Normal 1.7-12.0 [facility] Comment on above: Performed By: #### C BC #### [facility] [address] [place] [address] Dr. Yaritza Bojorquez NEUT # 10.5 103/ul Critically high 1.4-6.5 [facility] Comment on above: Performed By: #### C BC #### [facility] [address] [place] [address] Dr. Yaritza Bojorquez Neutrophils/100 WBC (Bld) 72.2 % Normal 43.0-75.0 [facility] Comment on above: Performed By: #### C BC #### [facility] [address] [place] [address] Dr. Yaritza Bojorquez Platelet mean volume (Bld) [Entitic vol] 10.0 fL Normal 9.5-13.5 [facility] Comment on above: Performed By: #### C BC #### [facility] [address] [place] [address] Dr. Yaritza Bojorquez PLT 450 103/ul Normal 150-450 [facility] Comment on above: Performed By: #### C BC #### [facility] [address] [place] [address] Dr. Yaritza Bojorquez RBC 5.37 106/ul Normal 4.20-5.40 [facility] Comment on above: Performed By: #### C BC #### [facility] [address] [place] [address] Dr. Yaritza Bojorquez WBC 14.6 103/ul Critically high 4.0-11.0 [facility] Comment on above: Performed By: #### C BC #### [facility] [address] [place] [address] Dr. Yaritza Bojorquez CULTURE URINEon 03-03-2022 CULTURE URINE Culture Observations : LIGHT GROWTH OF MIXED GENITAL KRYSTAL. NO POTENTIAL PATHOGENS SEEN. Normal [facility] Comment on above: Performed By: #### U RCX #### [facility] [address] [place] [address] Dr. Yaritza Bojorquez ER URINE PROFILEon Bilirubin Ql (U) Negative Normal NEGATIVE [facility] Comment on above: Performed By: #### BABAK AMERO #### [facility] [address] [place] [address] Dr. Yaritza Bojorquez Clarity (U) CLEAR Normal CLEAR [facility] Comment on above: Performed By: #### BABAK MAERO #### [facility] [address] [place] [address] Dr. Yaritza Bojorquez Color (U) DK. YELLOW Normal YELLOW [facility] Comment on above: Performed By: #### BABAK MAERO #### [facility] [address] [place] [address] Dr. Yaritza Bojorquez ERUAHD A micrscopic examina tion will be performed if indicated. Normal [facility] Comment on above: Performed By: #### BABAK MAERO #### [facility] [address] [place] [address] Dr. Yaritza Bojorquez Glucose Ql (U) Negative Normal NEGATIVE [facility] Comment on above: Performed By: #### Sandoval URIBE UMICRO #### [facility] [address] [place] [address] Dr. Yaritza Bojorquez Hemoglobin Ql (U) Negative Normal NEGATIVE [facility] Comment on above: Performed By: #### Sandoval URIBE, UMICRO #### [facility] [address] [place] [address] Dr. Yaritza Bojorquez Ketones Ql (U) >=80 Abnormal NEGATIVE [facility] Comment on above: Performed By: #### E JOJO, UMICRO #### [facility] [address] [place] [address] Dr. Yaritza Bojorquez LEUKOCYTES TRACE Abnormal NEGATIVE [facility] Comment on above: Performed By: #### E JOJO, UMICRO #### [facility] [address] [place] [address] Dr. Yaritza Bojorquez Nitrite Ql (U) Negative Normal NEGATIVE [facility] Comment on above: Performed By: #### Sandoval URIBE UMICRO #### [facility] [address] [place] [address] Dr. Yaritza Bojorquez pH (U) 6.5 [pH] Normal 5-9 [facility] Comment on above: Performed By: #### Sandoval URIBE UMICRO #### [facility] [address] [place] [address] Dr. Yaritza Bojorquez Protein (U) [Mass/Vol] 100 mg/dL Abnormal NEGAT TORSTEN/ TRACE [facility] Comment on above: Performed By: #### Sandoval URIBE UMICRO #### [facility] [address] [place] [address] Dr. Yaritza Bojorquez SPEC GRAVITY 1.025 Normal 1.005-<=1. 025 [facility] Comment on above: Performed By: #### Sandoval URIBE UMICRO #### [facility] [address] [place] [address] Dr. Yaritza Bojorquez UR MICRO IND INDICATED Normal [facility] Comment on above: Performed By: #### Sandoval URIBE UMICRO #### [facility] [address] [place] [address] Dr. Yaritza Bojorquez Urobilinogen Qn (U) 4 {Emir'U}/dL Abnormal 0.2 - 1.0 [facility] Comment on above: Performed By: #### E JOJOTAYLA #### [facility] [address] [address] [address] Yaritza Bojorquez PROF 14(COMP METB)on 022 Albumin [Mass/Vol] 4.5 g/dL Normal 3.4-5.0 [facility] Comment on above: Performed By: #### C MP #### [facility] [address] [place] [address] Dr. Yaritza Bojorquez Albumin/Globulin [Mass ratio] 1.2 {ratio} Normal [facility] Comment on above: Performed By: #### C MP #### [facility] [address] [place] [address] Dr. Yaritza Bojorquez ALP [Catalytic activity/Vol] 48 U/L Normal 46-116 [facility] Comment on above: Performed By: #### C MP #### [facility] [address] [place] [address] Dr. Yaritza Bojorquez ALT [Catalytic activity/Vol] 25 U/L Normal 14-59 [facility] Comment on above: Performed By: #### C MP #### [facility] [address] [place] [address] Dr. Yaritza Bojorquez Anion gap [Moles/Vol] 17.8 mmol/L Normal [facility] Comment on above: Performed By: #### C MP #### [facility] [address] [place] [address] Dr. Yaritza Bojorquez AST [Catalytic activity/Vol] 11 U/L Critically low 15-37 [facility] Comment on above: Performed By: #### C MP #### [facility] [address] [place] [address] Dr. Yaritza Bojorquez Bilirubin [Mass/Vol] 1.4 mg/dL Critically high 0.2-1.0 [facility] Comment on above: Performed By: #### C MP #### [facility] [address] [place] [address] Dr. Yaritza Bojorquez Calcium [Mass/Vol] 9.3 mg/dL Normal 8.5-10.1 [facility] Comment on above: Performed By: #### C MP #### [facility] [address] [address] [address] Yaritza Bojorquez Chloride [Moles/Vol] 98 mmol/L Normal 98-107 [facility] Comment on above: Performed By: #### C MP #### [facility] [address] [address] [address] Yaritza Bojorquez CO2 [Moles/Vol] 19.1 mmol/L Critically low 21.0-32.0 [facility] Comment on above: Performed By: #### C MP #### [facility] [address] [address] [address] Yaritza Bojorquez Creatinine [Mass/Vol] 0.95 mg/dL Normal 0.55-1.02 [facility] Comment on above: Performed By: #### C MP #### [facility] [address] [address] [address] Yaritza Bojorquez EGFR-AF FAROESE >60 Normal >=60 [facility] Comment on above: Performed By: #### C MP #### [facility] [address] [address] [address] Yaritza Bojorquez EGFR-NON AF FAROESE >60 Normal >=60 [facility] Comment on above: Performed By: #### C MP #### [facility] [address] [address] [address] Yaritza Bojorquez Globulin (S) [Mass/Vol] 3.6 g/dL Normal [facility] Comment on above: Performed By: #### C MP #### [facility] [address] [address] [address] Yaritza Bojorquez Glucose [Mass/Vol] 138 mg/dL Critically high 74-106 T [facility] Comment on above: Performed By: #### C MP #### [facility] [address] [address] [address] Yaritza Bojorquez Potassium [Moles/Vol] 2.9 mmol/L Critically low 3.5-5.1 [facility] Comment on above: Performed By: #### C MP #### [facility] [address] [place] [address] Dr. Yaritza Bojorquez Protein [Mass/Vol] 8.1 g/dL Normal 6.4-8.2 [facility] Comment on above: Performed By: #### C MP #### [facility] [address] [place] [address] Dr. Yaritza Bojorquez Sodium [Moles/Vol] 132 mmol/L Critically low 136-145 [facility] Comment on above: Performed By: #### C MP #### [facility] [address] [place] [address] Dr. Yaritza Bojorquez Urea nitrogen [Mass/Vol] 8.0 mg/dL Normal 7.0-18.0 [facility] Comment on above: Performed By: #### C MP #### [facility] [address] [place] [address] Dr. Yaritza Bojorquez Urea nitrogen/Creatinine [Mass ratio] 8.4 mg/mg Normal [facility] Comment on above: Performed By: #### C MP #### [facility] [address] [place] [address] Dr. Yaritza Bojorquez URINE MICROSCOPIC ONLYon BACTERIA MODERATE Abnormal NONE SEEN [facility] Comment on above: Performed By: #### BABAK MAERO #### [facility] [address] [place] [address] Dr. Yaritza Bojorquez Bacteria identified Cx Nom (U) INDICATED Normal [facility] Comment on above: Performed By: #### Sandoval URIBE UMICRO #### [facility] [address] [place] [address] Dr. Yaritza Bojorquez CAST NONE SEEN Normal NONE SEEN [facility] Comment on above: Performed By: #### Sandoval URIBE UMICRO #### [facility] [address] [place] [address] Dr. Yaritza Bojorquez Crystals LM Nom (Urine sed) NONE SEEN Normal NONE SEEN [facility] Comment on above: Performed By: #### Sandoval URIBE UMICRO #### [facility] [address] [place] [address] Dr. Yaritza Bojorquez Epithelial cells LM Ql (Urine sed) MANY Abnormal NONE SEEN /RARE [facility] Comment on above: Performed By: #### E RUR, UMICRO #### [facility] [address] [address] [address] Yaritza Bojorquez MUCOUS SMALL Abnormal NONE SEEN [facility] Comment on above: Performed By: #### E RUR, UMICRO #### [facility] [address] [address] [address] Yaritza Bojorquez RBC 2-5 Abnormal 0-2 [facility] Comment on above: Performed By: #### E RUR, UMICRO #### [facility] [address] [address] [address] Yaritza Bojorquez WBC 5-10 Abnormal NONE SEEN [facility] Comment on above: Performed By: #### E RUR, UMICRO #### [facility] [address] [address] [address] Yaritza Bojorquez XR ABD FLAT UP_PA [...] MACK SAMUELS Date: 2022-03-03 07:46 Normal [facility] Covid-19 PCR (CVDTBH)on 07-29 SARS-CoV-2 (COVID-19) RNA KOLE+probe Ql (Unsp spec) Not detected Normal NOT DETECTED [facility] Comment on above: Result Comment: This test is not yet approved or cleared by the [place] FDA. When there are no FDA-approved or cleared tests available, and other criteria are met, FDA can make tests available under an emergency access mechanism called an Emergency Use Authorization (EUA). The EUA for this test is supported by the [place] of Health and Human Service's (HHS's) declaration [...] consistent with SARS-CoV-2. Performed By: #### C COUNT INCLUDES [facility] #### [facility] [address] [place] [address] Dr. Yaritza Bojorquez Provider Note - ED [...] No Current Medications SIGNIFICANT EVENTS: Immunizations Description:Tdap [employer]ING LEAD: Is : no(1) Is : no(1) RESULTS/VITAL SIGNS VITAL SIGNS: T PRBP SpO2O2(LPM) %FiO2 Method 22-Jun-2019 18:[id number] 99 room air, no respiratory support 22-Jun-2019 18:07:[id number] 97 room air, no respiratory support MEDICAL [...] - Final Verification: completed Procedure performed by: nv Branch Sales Manager(s): none Findings: grossly normal anatomy Specimen: no [...] From Triage - ED 22-Jun-2019 18:07 Normal [facility] Risk Screen - Adult Emergenc yon 06-22-2019 Risk Screen - Adult Emergency Preferred Language: Preferred Language: Preferred Language for Discussing Health Care (patient/designee)Yoruba Advanced Directives: Advance Directive/DNRno Family Violence Adult: Abuse Screen: Are you or have you been threatened or abused physically, emotionally, or sexually by anyoneno Learning Assessment (Patient): Learning Assessment (Patient): Patient is Able to be Assessed for Learningyes Factors Influencing Readiness to Learnacuteness of illness Factors that Impact Ability to Learnnone Devices/Methods Used to Communicatenone Learning Preferencesaudio Cultural Considerationsnone Developmental Considerationsnone Roman Catholic Considerationsnone Learning Assessment (Other Learner): Learning Assessment (Other Learner): Other learner availableno Pressure Injury/TB/Substance: Pressure Injury: Pressure Injury Present on Admissionno Do you have a coughno Substance Use Current or Former Historynever: Cigarette/Tobacco, e-Cigarette/Vaping, Alcohol, Street Drugs Admission Risk Screen: Significant IndicatorsComplete CAGE: CAGE: Is this an injured patient at a Trauma Center ([facility]/[place]y [place]): yes C: Have you ever felt you needed to Cut down on your drinking: no A: Have people Annoyed you by criticizing your drinking: no G: Have you ever felt Guilty about drinking: no E: Have you ever felt you needed a drink first thing in the morning (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) to steady your nerves or to get rid of hangover: no Electronic Signatures: Mehdi Chaney) (Signed 22-Jun-2019 18:11) Authored: Preferred Language, Advanced Directives, Family Violence Adult, Learning Assessment (Patient), Learning Assessment (Other Learner), Pressure Injury/TB/Substance, CAGE Last Updated: 22-Jun-2019 18:11 by Mehdi Chaney) [facility] Triage - EDon 06-22-2019 Triage - ED [...] Accompanied By: self Language: Spoken Language Preferred: Yoruba PRIMARY ASSESSMENT CHENTE GONZALEZ's primary assessment is [...] 22-Jun-2019 18:40 by Nitin Singer (AYALA) Normal [facility] Vital Signs Date Time Vital Sign Value Performing Clinician Facility 05-15-2025 10:03-0400 Body mass index (BMI) [Ratio] 36.08 kg/m2 Deyanira Mccloud PA Work Phone: [facility] 05-15-2025 10:03-0400 Body weight 98.34 kg Deyanira Mccloud PA Work Phone: [facility] 05-15-2025 10:03-0400 Diastolic blood pressure 78 mm[Hg] Deyanira Mccloud PA Work Phone: [facility] 05-15-2025 10:03-0400 Systolic blood pressure 140 mm[Hg] Deyanira Mccloud PA Work Phone: [facility] 04-30-2025 15:05-0400 Body mass index (BMI) [Ratio] 35.01 kg/m2 Jaspreet Angie DO Work Phone: [facility] 04-30-2025 15:05-0400 Body weight 95.44 kg Jaspreet Angie DO Work Phone: [facility] 04-30-2025 15:05-0400 Diastolic blood pressure 70 mm[Hg] Jaspreet Angie DO Work Phone: [facility] 04-30-2025 15:05-0400 Systolic blood pressure 120 mm[Hg] Jaspreet Angie DO Work Phone: [facility] 04-17-2025 10:41-0400 Body mass index (BMI) [Ratio] 33.91 kg/m2 Deyanira Mccloud PA Work Phone: [facility] 04-17-2025 10:41-0400 Body weight 92.44 kg Deyanira Mccloud PA Work Phone: [facility] 04-17-2025 10:41-0400 Diastolic blood pressure 86 mm[Hg] Deyanira Mccloud PA Work Phone: [facility] 04-17-2025 10:41-0400 Systolic blood pressure 134 mm[Hg] Deyanira Mccloud PA Work Phone: [facility] 04-03-2025 10:50-0400 Body mass index (BMI) [Ratio] 33.35 kg/m2 Jaspreet Angie DO Work Phone: [facility] 04-03-2025 10:50-0400 Body weight 90.9 kg Jaspreet Angie DO Work Phone: [facility] 04-03-2025 10:50-0400 Diastolic blood pressure 72 mm[Hg] Jaspreet Angie DO Work Phone: [facility] 04-03-2025 10:50-0400 Systolic blood pressure 130 mm[Hg] Jaspreet Angie DO Work Phone: [facility] 03-05-2025 11:16-0400 Body mass index (BMI) [Ratio] 31.62 kg/m2 Jaspreet Angie DO Work Phone: [facility] 03-05-2025 11:16-0400 Body weight 86.18 kg Jaspreet Angie DO Work Phone: [facility] 03-05-2025 11:16-0400 Diastolic blood pressure 78 mm[Hg] Jaspreet Angie DO Work Phone: [facility] 03-05-2025 11:16-0400 Systolic blood pressure 128 mm[Hg] Jaspreet Angie DO Work Phone: [facility] 01-29-2025 10:57-0400 Body mass index (BMI) [Ratio] 31.53 kg/m2 Willy Mirandaerly EQUIPMENT MAINTENANCE TECH Work Phone: [facility] 01-29-2025 10:57-0400 Body weight 85.96 kg Willy Mirandaerly EQUIPMENT MAINTENANCE TECH Work Phone: [facility] 01-29-2025 10:57-0400 Diastolic blood pressure 80 mm[Hg] Willy Mirandaerly EQUIPMENT MAINTENANCE TECH Work Phone: [facility] 01-29-2025 10:57-0400 Systolic blood pressure 136 mm[Hg] Willy Mirandaerly EQUIPMENT MAINTENANCE TECH Work Phone: [facility] 01-24-2025 11:42-0400 Diastolic blood pressure 70 mm[Hg] Noms Nurse [facility] 01-24-2025 11:42-0400 Systolic blood pressure 142 mm[Hg] Nom Nurse [facility] 01-24-2025 11:21-0400 Body mass index (BMI) [Ratio] 32.01 kg/m2 Nom Nurse [facility] 01-24-2025 11:21-0400 Body weight 87.26 kg Nom Nurse [facility] 12-23-2024 13:51-0400 Body mass index (BMI) [Ratio] 31.35 kg/m2 Jaspreet Angie DO Work Phone: [facility] 12-23-2024 13:51-0400 Body weight 85.46 kg Jaspreet Angie DO Work Phone: [facility] 12-23-2024 13:51-0400 Diastolic blood pressure 78 mm[Hg] Jaspreet Angie DO Work Phone: [facility] 12-23-2024 13:51-0400 Systolic blood pressure 118 mm[Hg] Jaspreet Angie DO Work Phone: [facility] 08-11-2023 22:07-0500 Diastolic blood pressure 64 mm[Hg] PHYSICIAN NO [facility] 08-11-2023 22:07-0500 Heart rate 71 /min PHYSICIAN NO [facility] 08-11-2023 22:07-0500 Respiratory rate 18 /min PHYSICIAN NO [facility] 08-11-2023 22:07-0500 SaO2% (BldA) [Mass fraction] 99 % PHYSICIAN NO [facility] 08-11-2023 22:07-0500 Systolic blood pressure 126 mm[Hg] PHYSICIAN NO [facility] 08-11-2023 19:17-0500 Body height 170.18 cm PHYSICIAN NO [facility] 08-11-2023 19:17-0500 Body weight 80.73 kg PHYSICIAN NO [facility] Encounters Encounter Date Encounter Type Care Provider Facility Start: 05-26-2025 End: 05-26-2025 Clinisync Result Encounter Jaspreet Angie DO Work Phone: [facility] Unsolicited Start: 05-26-2025 End: 05-26-2025 Clinisync Result Encounter Jaspreet Angie DO Work [...] Department Unsolicited Start: 05-15-2025 End: 05-15-2025 Bamboo flowsmala KABA Work Phone: [facility] Start: 05-15-2025 End: 05-15-2025 Bamboo flowsheet Deyanira KABA Work Phone: [facility] Start: 05-15-2025 End: 05-15-2025 ambulatory DEYANIRA MCCLOUD Not Available Start: 05-15-2025 End: 05-15-2025 Office outpatient visit 15 minutes Deyanira KABA Work Phone: [facility] Comment on above: 33 weeks gestation o f ([facility]); Third trimester ([facility]); Gestational diabetes mellitus (GDM), antepartum, gestational diabetes method of control unspecified ([facility]) Start: 04-30-2025 End: 04-30-2025 Office outpatient visit 15 minutes Jaspreet Angie DO Work Phone: [facility] Comment on above: 31 weeks gestation o f ([facility]); Third trimester ([facility]); Gestational diabetes mellitus (GDM), antepartum, gestational diabetes method of control unspecified ([facility]) Start: 04-30-2025 End: 04-30-2025 ambulatory JASPREET ANGIE Not Available Start: 04-17-2025 End: 04-17-2025 Bamboo flowsheet Deyanira KABA Work Phone: [facility] [facility] Start: 04-17-2025 End: 04-17-2025 Bamboo flowsheet Deyanira KABA Work Phone: [facility] Start: 04-17-2025 End: 04-17-2025 ambulatory DEYANIRA MCCLOUD Not Available Start: 04-17-2025 End: 04-17-2025 Office outpatient visit 15 minutes Deyanira KABA Work Phone: [facility] Comment on above: Size of fetus incons istent with dates in second trimester ([facility]) (Primary Dx); Third trimester ([facility]); 29 weeks gestation of ([facility]) Start: 04-03-2025 End: 04-03-2025 Bamboo flowsheet Jaspreet Angie DO Work Phone: [facility] Start: 04-03-2025 End: 04-03-2025 Bamboo flowsheet Jaspreet Angie DO Work Phone: [facility] Start: 04-03-2025 End: 04-03-2025 ambulatory JASPREET ANGIE Not Available Start: 04-03-2025 End: 04-03-2025 Office outpatient visit 15 minutes Jaspreet Angie DO Work Phone: [facility] Comment on above: Second trimester pre gnancy ([facility]); 27 weeks gestation of ([facility]) Start: 03-28-2025 End: 03-28-2025 Chart abstracting Scanning Provider External [facility]- Medicine at [facility] Start: 03-21-2025 End: 03-21-2025 Clinisync Result [...] pre gnancy ([facility]); 23 weeks gestation of ([facility]); Diabetes mellitus screening; Well woman exam [...] 01-29-2025 End: 01-29-2025 Bamboo flowsheet Willy Avila EQUIPMENT MAINTENANCE TECH Work Phone: [facility] Start: 01-29-2025 End: 01-30-2025 Bamboo flowsheet Willy Avila EQUIPMENT MAINTENANCE TECH Work Phone: [facility] Start: 01-29-2025 End: 01-30-2025 External Result Encounter Willy Avila EQUIPMENT MAINTENANCE TECH Work Phone: [facility] External Department Unsolicited Start: 01-29-2025 End: 01-29-2025 ambulatory WILLY AUSTIN Not Available Start: 01-29-2025 End: 01-29-2025 Office outpatient visit 15 minutes Willy Avila EQUIPMENT MAINTENANCE TECH Work Phone: [facility] Comment on above: Second trimester pre gnancy; 18 weeks gestation of Start: 01-24-2025 End: 01-24-2025 Office outpatient visit 5 minutes [facility] Angie Nurse [facility] Comment on above: GA: 17w3d Start: 01-24-2025 End: 01-24-2025 ambulatory JASPREET ANGIE Not Available Start: 01-06-2025 End: 01-06-2025 ambulatory Cristal Miguel Facility:[facility] Start: 01-06-2025 End: 01-06-2025 Departed Referred Cristal Miguel DO Work Phone: [facility] Start: 12-23-2024 End: 12-23-2024 Bamboo flowsheet [...] Emergency department patient visit PHYSICIAN SASKIA HERR [facility] Work Phone: Start: 03-03-2022 End: 03-03-[address] DOCTOR BARBOZA Facility:[facility] Start: 08-23-2021 End: 08-23-2021 ambulatory ADEOLA COHEN Facility:[facility] Procedures Date Procedure Procedure Detail Performing Clinician Start: 05-26-2025 US OB BPP W NON-STRESS Jaspreet Angie DO Work Phone: Start: 05-20-2025 US AMNIOTIC FLUID VOLUME Jaspreet Angie DO Work Phone: Start: 05-19-2025 US OB BPP W NON-STRESS Jaspreet Angie DO Work Phone: Start: 05-15-2025 Urnls dip stick/tabl et rgnt non-auto w/o micrscp Deyanira [place] PA Work Phone: Start: 04-30-2025 Urnls dip [...] URINARY TRACT INFECT ION (HTRX) Willy Avila EQUIPMENT MAINTENANCE TECH Work Phone: Start: 01-29-2025 Urnls dip stick/tabl et rgnt non-auto w/o micrscp Willy Avila EQUIPMENT MAINTENANCE TECH Work Phone: Start: 01-24-2025 Urnls dip stick/tabl [...] procedure 06/02/2025 11:20 AM EDT Routine [facility]BG[facility] Alber[facility] [address] [place] [address] Willy Avila, EQUIPMENT MAINTENANCE TECH [address] [place] [phone] [facility] Start: 04-30-2025 End: 10-28-2025 US biophysical profile w non stress test US biophysical profile w non stress test Imaging Routine Gestational diabetes mellitus (GDM), antepartum, gestational diabetes method of control unspecified ([facility]) Expected: 04/30/2025 (Approximate), Expires: 10/28/2025 [facility] Work Phone: Comment on above: Expected: 04/30/2025 (Approximate), Expires: 10/28/2025 Start: 04-28-2025 Influenza vaccination Influenza Vacc ine [facility] Start: 04-17-2025 End: 08-17-2025 US for US OB follow up transabdominal approach Imaging Routine Size of fetus inconsistent with dates in second trimester ([facility]) Expected: 04/17/2025, Expires: 08/17/2025 [facility] Work Phone: Comment on above: Expected: 04/17/2025 , Expires: 08/17/2025 Start: 04-17-2025 End: 04-17-2025 Patient encounter procedure 04/17/2025 9:50 AM EDT Routine [facility] [address] [place] [phone] Deyanira Mccloud PA [address] [place], [place] [phone] [facility] Start: 04-03-2025 End: 04-03-2025 ambulatory 04/03/2025 1:30 PM EDT Support Visit Maternal- Medicine at [facility] [address] [place] [address] Rimma Richey, RN [address] [address] Nikky Gonzalez, BLADE BrianConsuelo, LD [address] [place] [address] [facility]- [facility] at [facility] Start: 04-03-2025 End: 04-03-2025 Patient encounter procedure 04/03/2025 10:40 AM EDT Routine [facility] [address] [place] [address] Jaspreet Adams DO [address] [place] [address] [facility] Start: 03-19-2025 End: 03-19-2025 Professional / ancillary services management 03/19/2025 9:30 AM EDT Ancillary Procedure [facility] [address] [place] [address] [facility] Start: 03-05-2025 End: 03-05-2026 [...] Routine [facility] [address] [place] [address] Jaspreet Adams, DO [address] [place] [address] Arrived [facility] Comment on above: Arrived Start: 02-27-2025 End: 02-27-2025 Patient encounter procedure 02/27/2025 8:50 AM EDT Routine [facility] [address] [place] [address] Jaspreet Adams, DO [address] [place] [address] [facility] Start: 02-12-2025 End: 02-12-2025 Clinical Support 02/12/2025 9:00 AM EDT Clinical Support [facility] [address] [place] [phone] [facility] Start: 01-29-2025 End: 01-29-2025 Patient encounter procedure 01/29/2025 10:20 AM EDT Routine [facility] [address] [place] [address] Willy Avila, EQUIPMENT MAINTENANCE TECH [address] [place] [phone] [facility] Start: 01-24-2025 End: 01-24-2026 ABO/Rh ABO/Rh Lab Routine Missed menses , unspecified gestational age Expected: 01/24/2025 (Approximate), Expires: 01/24/2026 [facility] Comment on above: Expected: 01/24/2025 (Approximate), Expires: 01/24/2026 Start: 01-24-2025 End: 03-26-2025 Alpha fetoprotein, maternal Alpha fetoprotein, maternal Lab Routine Encounter for supervision of normal first in first trimester Expected: 01/24/2025 (Approximate), Expires: 03/26/2025 [facility] Comment on above: Expected: 01/24/2025 (Approximate), Expires: 03/26/2025 Start: 01-24-2025 End: 01-24-2026 Blood type and Indirect antibody screen panel - Blood Type and screen Lab Routine Missed menses , unspecified gestational age Expected: 01/24/2025 (Approximate), Expires: 01/24/2026 [facility] Work Phone: Comment on above: Expected: 01/24/2025 (Approximate), Expires: 01/24/2026 Start: 01-24-2025 End: 01-24-2026 Drugs of abuse panel - Urine by Screen method Rapid drug screen, urine Lab Routine , unspecified gestational age Encounter for supervision of normal first in first trimester Expected: 01/24/2025 (Approximate), Expires: 01/24/2026 [facility] Comment on above: Expected: 01/24/2025 (Approximate), Expires: 01/24/2026 Start: 01-10-2025 End: 01-10-2025 ambulatory 01/10/2025 9:30 AM EDT Initial [facility] [address] [place] [address] [facility] Start: 01-10-2025 End: 01-10-2025 Professional / ancillary services management 01/10/2025 9:00 AM EDT Ancillary Procedure [facility] [address] [place] [address] [facility] Start: 01-06-2025 Bacteria identified in Urine by Culture Urine Culture [facility] Start: 01-06-2025 Urine culture [facility] Start: 2018 Screening for malign ant neoplasm of cervix Pap Smear [facility] Start: 2016 DTaP,Tdap and Td Vaccines (1 - Tdap) DTaP,Tdap and Td Vaccines (1 - Tdap) [facility] Start: 12-07-2015 Adult BMI Screening Adult BMI Screen ing [facility] Start: 2009 Depression Screening Depression Scre ening [facility] Start: 2009 Tobacco Screening Tobacco Screening [facility] Bacteria identified in Urine by Culture Urine culture Microbiology Routine Missed menses Ordered: 01/24/2025 [facility] Comment on above: Ordered: 01/24/2025 Bacteria identified in Urine by Culture Urine culture Microbiology Routine Second trimester Ordered: 01/29/2025 [facility] Work Phone: Comment on above: Ordered: 01/29/2025 CBC W Auto Different ial panel - Blood CBC and differential Lab Routine Missed menses , unspecified gestational age Ordered: 01/24/2025 [facility] Comment on above: Ordered: 01/24/2025 Cytology Cervical or vaginal smear or scraping study Pap Smear Pathology and Cytology Routine Well woman exam with routine gynecological exam Ordered: 03/05/2025 [facility] Work Phone: Comment on above: Ordered: 03/05/2025 Hemoglobin A1c/Hemoglobin.total in Blood Hemoglobin A1c Lab Routine Missed menses , unspecified gestational age Ordered: 01/24/2025 [facility] Comment on above: Ordered: 01/24/2025 Hepatitis B virus surface Ag [Presence] in Serum or Plasma by Immunoassay Hepatitis B surface antigen Lab Routine Missed menses , unspecified gestational age Ordered: 01/24/2025 [facility] Comment on above: Ordered: 01/24/2025 Hepatitis C virus Ab [Presence] in Serum or Plasma by Immunoassay Hepatitis C antibody Lab Routine Missed menses , unspecified gestational age Ordered: 01/24/2025 [facility] Comment on above: Ordered: 01/24/2025 HIV-1/HIV-2 antigen/antibody combination immunoassay HIV-1 and HIV-2 antibodies Lab Routine Missed menses , unspecified gestational age Ordered: 01/24/2025 [facility] Comment on above: Ordered: 01/24/2025 Patient Education Head injury in adults Blunt Abdominal Trauma ED Blunt Chest Trauma ED [facility] Work Phone: Patient referral [facility] Work Phone: Reagin Ab [Presence] in Serum by RPR RPR Lab Routine Missed menses , unspecified gestational age Ordered: 01/24/2025 [facility] Comment on above: Ordered: 01/24/2025 Rubella antibody, IgG Rubella an tibody, IgG Lab Routine Missed menses , unspecified gestational age Ordered: 01/24/2025 [facility] Comment on above: Ordered: 01/24/2025 Immunizations Immunization Date Immunization Notes Care Provider [facility] 08-11-2023 tetanus toxoid, redu christie diphtheria toxoid, and acellular pertussis vaccine, adsorbed PHYSICIAN NO [facility] Payers Date Payer Category Payer Private Health Insurance [facility] MEDICA[facility] [id number] 2025 Self-pay [id number] 2024 Medicaid [id number] 2024 Medicaid [id number] 1997 Unknown [id number] 2.16.840.1.036296.3.579.2. 593 1997 Unknown [id number] 2.16.840.1.163840.3.579.2. 593 1997 Unknown [id number] 2.16.840.1.556040.3.579.2. 1259 1997 Unknown [id number] 2.16.840.1.251385.3.579.2. 1258 1997 Unknown [id number] 2.16.840.1.080419.3.579.2. 9 1997 Unknown [id number] 2.16.840.1.196317.3.579.2. 1258 1997 Unknown [id number] 2.16.840.1.266881.3.579.2. 9 1997 Unknown [id number] 2.16.840.1.785960.3.579.2. 9 1997 Unknown [id number] 2.16.840.1.021321.3.579.2. 9 1997 Unknown [id number] 2.16.840.1.222976.3.579.2. 9 1997 Unknown [id number] 2.16.840.1.437488.3.579.2. 1259 1997 Unknown [id number] 2.16.840.1.458379.3.579.2. 1258 1997 Unknown [id number] 2.16.840.1.072219.3.579.2. 9 1997 Unknown [id number] 2.16.840.1.052351.3.579.2. 9 1959 Unknown [id number] Unknown Regular Auto/Liability [id number] Unknown HCAP/HFA/FAP Active [id number] Unknown [id number] 2.16.840.1.505572.3.579.2. 531 Unknown Regular Auto/Liability [id number] Unknown HCAP/HFA/FAP Active [id number] Social History Date Type Detail Facility Start: 08-11-2023 End: 08-11-2023 Tobacco smoking status NHIS Never smoked tobacco (finding) [facility] Start: 1995 [facility]igned At [facility] Start: 12-22-2024 Gender identity Identifies as female gender (finding) [facility] Sexual orientation Not on file [facility] Start: 01-07-2025 End: 03-26-2025 Sex Female (finding) [facility] Start: 10-08-2024 [facility] Start: 1997 Sex assigned at Not on file [facility] Medical Equipment Procedure Code Equipment Code Equipment Origin al Text Equipment Identifier Dates 1 strip by In Vi tro route Daily Use in the morning prior to breakfast, 1 hour after each meal for a total of 4times daily. [id number] Start: 03-24-2025 End: 04-23-2025 1 each by In Vit ro route Daily Use to check FSBS four times daily [id number] Start: 03-24-2025 End: 04-23-2025 Clinical Notes 12-23-2024 [...] to check FSBS. Blood Glucose Monitoring Suppl ([employer] Glucometer) w/Device kit 1 kit, Does not [...] PLAN ICD-10-CM 1. 33 weeks gestation of ([facility]) Z3A.33 POCT urinalysis dipstick manually resulted 2. Third trimester ([facility]) Z34.93 POCT urinalysis dipstick manually resulted 3. Gestational diabetes mellitus (GDM), antepartum, gestational diabetes method of control unspecified ([facility]) O24.419 Return OB: Patient presents today [...] of: SENDY Fan documented in this encounter [facility] 04-30-2025 History of Present illness Narrative [...] nursing note reviewed. Exam conducted with a cream dipper present. Vitals: Estimated body mass index is 35.01 kg/m as calculated from the following: Height as of 12/01/20: 5' 5 . Weight as of this encounter: 210 lb 6.4 oz. BP: 120/70 Patient's last menstrual period was 10/04/2024 (approximate). ASSESSMENT & PLAN ICD-10-CM 1. 31 weeks gestation of ([facility]) Z3A.31 POCT urinalysis dipstick manually resulted 2. Third trimester ([facility]) Z34.93 POCT urinalysis dipstick manually resulted 3. Gestational diabetes mellitus (GDM), antepartum, gestational diabetes method of control unspecified ([facility]) O24.419 US biophysical profile w non [...] Jaspreet Adams DO documented in this encounter [facility] 04-17-2025 History of Present illness Narrative Reason for Appointment: Patient ID: Chente Gonzalez is a 29 y.o. female who presents for No chief complaint on file. Patient presents today for Return OB appointment. MEDICATIONS Current Outpatient Medications Medication Instructions Alcohol Swabs (Alcohol Prep Pad) 70 % pads 1 Pad, Topical, Daily, Use four times daily to check FSBS. Blood Glucose Monitoring Suppl ([employer] Glucometer) w/Device kit 1 kit, Does not [...] ASSESSMENT & PLAN ICD-10-CM 1. Third trimester ([facility]) Z34.93 POCT urinalysis dipstick manually resulted 2. 29 weeks gestation of ([facility]) Z3A.29 POCT urinalysis dipstick manually resulted [...] of: SENDY Fan documented in this encounter [facility] 04-03-2025 History of Present illness Narrative Reason for Appointment: Patient ID: Chente Gonzalez is a 29 y.o. female who presents for Routine Visit Patient presents today for Return OB appointment. MEDICATIONS Current Outpatient Medications Medication Instructions Alcohol Swabs (Alcohol Prep Pad) 70 % pads 1 Pad, Topical, Daily, Use four times daily to check FSBS. Blood Glucose Monitoring Suppl ([employer] Glucometer) w/Device kit 1 kit, Does not [...] nursing note reviewed. Exam conducted with a cream dipper present. Vitals: Estimated body mass index is 33.35 kg/m as calculated from the following: Height as of 12/01/20: 5' 5 . Weight as of this encounter: 200 lb 6.4 oz. BP: 130/72 Patient's last menstrual period was 10/04/2024 (approximate). ASSESSMENT & PLAN ICD-10-CM 1. Second trimester ([facility]) Z34.92 Urine dip 2. 27 weeks gestation of ([facility]) Z3A.27 Urine dip Patient presents today for a routine obstetrics appointment. Patient is currently 27w2d with a Estimated Date of Delivery: 07/01/25. Patient brought in FSBS logs for review and patient still desires to hold off on [facility] referral at this time, referral was previously sent on 03/24/25 and when contacted by [facility] patient will inform them that she will postpone scheduling at this time. Patient to return to clinic in 2 weeks for routine OB appointment. Documented by Nissa Matt LPN on behalf of: Jaspreet Adams DO documented in this encounter [facility] 03-05-2025 History of Present illness Narrative [...] nursing note reviewed. Exam conducted with a cream dipper present. Vitals: Estimated body mass index is 31.62 kg/m as calculated from the following: Height as of 21: 5' 5 . Weight as of this encounter: 190 lb. BP: 128/78 Patient's last menstrual period was 10/04/2024 (approximate). ASSESSMENT & PLAN ICD-10-CM 1. Second trimester ([facility]) Z34.92 POCT urinalysis dipstick manually resulted 2. 23 weeks gestation of ([facility]) Z3A.23 3. Diabetes mellitus screening Z13.1 [...] Jaspreet Adams DO documented in this encounter [facility] 01-29-2025 History of Present illness Narrative [...] nursing note reviewed. Exam conducted with a cream dipper present. Vitals: Estimated body mass index is [...] Willy Avila NP documented in this encounter [facility] 01-24-2025 History of Present illness Narrative [...] or undercooked meat, and stay away from [facility]. Patient has also been advised to [...] concerns or questions. Nurse Visit Completed by: Kalny Jacob MA documented in this encounter [facility] 12-23-2024 History of Present illness Narrative [...] nursing note reviewed. Exam conducted with a cream dipper present. Vitals: Estimated body mass index is [...] Jaspreet Adams DO documented in this encounter [facility] Healthcare Evaluation note No assessment inform ation available [facility] Work Phone: Evaluation note Diagnosis [...] HealthcareInstructionsNot on filedocumented in this [facility] Summary Purpose Family History Relationship Condition Age [...] section and content) DATE CREATED AUTHOR [facility]/2019 [facility] DATE CREATED AUTHOR AUTHOR'S ORGANIZ ATION 06/07/2022 [facility] DATE CREATED AUTHOR AUTHOR'S ORGANIZ ATION 01/09/2025 [facility] DATE CREATED AUTHOR AUTHOR'S ORGANIZ ATION 05/16/2025 [facility] EPIC Care Teams [...] BE BASED ON THE PRIMARY CLINICAL RECORDS. [facility]. provides no warranty or guarantee of the accuracy or completeness of information in this document.
[2025-06-02 10:36] VITALS: BP 120/72; PULSE 88
== END 2025-06-02 11:13 | disposition home or self-care (01) ==
LOC: US 10:00 → FBC 10:02
PROVIDERS: Visit Provider Obstetrics & Gynecology
DX: O24.419 Gestational diabetes mellitus in pregnancy, unspecified control (principal); Z3A.35 35 weeks gestation of pregnancy
CPT/HCPCS: 76818; 87081; 87184

== ENCOUNTER 2025-06-02 19:48 | Outpatient (REF) | payer OTHER, SELFPAY ==
--- OUTSIDE RECORDS SUMMARY | 2025-06-02 11:20 | XMS_ITS | Encounter Summary ---
Author Organization [facility] Address [address] [place] [address] Care Team Providers Care Muskrat Trapper Name Role Phone Unavailable Primary Care Provider Unavailabl e Reason for Visit * Reason Comments Routine Visit 35w 6d Encounter Details Date Type Department Care Team ([facility] st Contact Info) Description 06/02/2025 11:20 AM EDT Routine [facility] [address] [place] [address] Nabila Avila, WILLIE [address] [place] [address] 35 weeks gestation of ([facility]); Third trimester ([facility]) Social History Tobacco Use Types Packs/Day [...] Sign Reading Time Taken Comments Blood Pressure 126/80 06/02/2025 11:40 AM EDT Pulse - - Temperature - - Respiratory Rate - - Oxygen Saturation - - Inhaled Oxygen Concentration - - Weight 102 kg (224 lb) 06/02/2025 11:40 AM EDT Height - - Body Mass Index 37.28 12/01/2020 12:00 PM EDT documented in this encounter Progress Notes * Nabila Avila, PROOFING MACHINE OPERATOR - 06/02/2025 11:20 AM EDT Reason for Appointment: Patient ID: Chente Gonzalez is a 29 y.o. female who presents for Routine Visit (35w 6d) Patient presents today for Return OB appointment. MEDICATIONS Current Outpatient Medications Medication Instructions Alcohol Swabs (Alcohol Prep Pad) 70 % pads 1 Pad, Topical, Daily, Use four times daily to check FSBS. Blood Glucose Monitoring Suppl ([employer] Glucometer) w/Device kit 1 kit, Does not [...] 1 tablet, Daily ALLERGIES Allergies Allergen Reactions Penicillin G Unknown Penicillins Other Reaction(s): Unknown PROBLEMS Active Ambulatory [...] nursing note reviewed. Exam conducted with a button buttonhole marker present. Vitals: Estimated body mass index is 37.28 kg/m?? as calculated from the following: Height as of 12/01/20: 5' 5 . Weight as of this encounter: 224 lb. BP: 126/80 Patient's last menstrual period was 10/04/2024 (approximate). ASSESSMENT & PLAN ICD-10-CM 1. 35 weeks gestation of ([facility]) Z3A.35 POCT urinalysis dipstick manually resulted 2. Third trimester ([facility]) Z34.93 CULTURE, GROUP B STREP WITH SUSCEPTIBLITY CULTURE, GROUP B STREP WITH SUSCEPTIBLITY CANCELED: CULTURE, GROUP B STREP WITH SUSCEPTIBLITY Return OB: Patient presents today for a routine obstetrics appointment. Patient is currently 35w6d . Patient states she is doing well but has complaints of being tired due to current . Patient has verbalizes frequent movement. labor precautions was discussed/given and patient was instructed to perform kick counts three times a day. Continues to monitor glucose with fasting glucose in 80's and doing well. Orders Placed This Encounter Procedures CULTURE, GROUP B STREP WITH SUSCEPTIBLITY POCT urinalysis dipstick manually resulted Follow Up: Patient is to return to office in 1 week for routine OB appointment. Documented by Nabila Avila NP on behalf of: Nabila Avila NP documented in this encounter Plan of Treatment Upcoming Encounters Date Type Department Care Team (Late st Contact Info) Description 06/12/2025 9:40 AM EDT Routine [facility] [address] [place] [phone] Jaspreet Adams, [address] [place], [place] [id number] Scheduled Orders Name Type Priority Associated Diagnoses Orde r Schedule CULTURE, GROUP B STREP WITH SUSCEPTIBLITY Lab Routine Third trimester ([facility]) Expected: 06/02/2025, Expires: 06/02/2026 documented as of this encounter Procedures Procedure Name Priority Date/Time Associated Diagnosis Comments POCT URINALYSIS DIPSTICK Routine 06/02/2025 11:53 AM EDT 35 weeks gestation of ([facility]) documented in this encounter Results * (ABNORMAL) POCT urinalysis dipstick manually resulted (06/02/2025 11:53 AM EDT) Color, UA Yellow Clarity, UA Clear Glucose, UA Negative Negative - 2000(110) ++++ mg/dL Bilirubin, UA Negative Negative - 4(70) +++ mg/dL Ketones, UA Negative Negative - 160(16) ++++ mg/dL Spec Grav, UA 1.010 1 - 1.03 Blood, UA Positive Negative - 50 Derick/mcL pH, UA 6.5 5 - 9 Protein, UA Trace Negative - 2000(20) ++++ mg/dL Urobilinogen, UA 2.0 0.2 - 12 mg/dL Leukocytes, UA 3+ Negative - 500+++ Julio/mcL Nitrite, UA Negative Negative - Positive Urine 06/02/2025 11:5 3 AM EDT Nabila Avila NP POINT OF CARE TEST ENTER/EDIT ORDERABLES Final Result documented in this encounter Visit Diagnoses Diagnosis 35 weeks gestation of ([facility]) Third trimester ([facility]) state, incidental documented in this encounter
--- OUTSIDE RECORDS SUMMARY | 2025-06-02 19:50 | XMS_ITS | Encounter Summary ---
Author Organization [facility] Address [address] [place] [address] Care Team Providers Care Licensing Coordinator Name Role Phone Unavailable Primary Care Provider Unavailabl e Encounter Details Date Type Department Care Team (Late st Contact Info) Description 06/02/2025 Clinisync Result Encounter [facility] External Department Unsolicited Tyrell dAams DO [address] [place], [place] [phone] Social History Tobacco Use Types Packs/Day Years [...] Routine [facility] [address] [place] [address] Tyrell Adams DO [address] [place], [place] [id number] documented as of this encounter Procedures Procedure Name Priority Date/Time Associated Diagnosis Comments US OB BPP W NON-STRESS 06/02/2025 10:52 AM EDT documented in this encounter Results * US OB BPP W NON-STRESS (06/02/2025 10:52 AM EDT) Anatomical Region Laterality Modality Other 06/02/2025 10:5 2 AM EDT Narrative 06/02/2025 10:[place] [address] Ultrasound Report Signed Patient: CHENTE GONZALEZ MR#: [id number] : 1995 Acct:[id number] Age/Sex: 29 / F ADM Date: 06/02/25 Loc: [facility] 250-[address]: Tyrell Adams D.O. Ordering Physician: Tyrell Adams D.O. Date of Service: 06/02/25 Procedure(s): US OB BPP w non-stress Accession Number(s): [id number] cc: Tyrell Adams D.O.; Physician,Non-Staff M.DPeggy The [place] [address] Patient Name: CHENTE GONZALEZ MRN: [id number] date: 1995 Sex: F Assigned Patient Location: [facility] Current Patient Location: [facility] Accession/Order Number: [id number] Exam Date: 06/02/2025 10:22 Report Date: 06/02/2025 10:52 At the request of: TYRELL ADAMS DO Procedure: US OB BPP w non-stress Biophysical profile. Reason for exam: Gestational diabetes COMPARISON: 05/26/2025 TECHNIQUE: Transabdominal imaging of the gravid uterus was obtained. FINDINGS: The solar system installer reports a BPP of 8 out of 8. DOYLE is normal at 8.9 cm. heart rate 124 bpm. US/US OB BPP w non-stress IMPRESSION: BPP 8 out of 8. Impression dictated by: Ramana Raza Jr., D.O. 06/02/2025 10:52 AM Dictation Location: [place] [address] Electronically authenticated by: [id number] Y Date: 06/02/2025 10:52 Dictated By: Ramana Raza M.D. Signed By: 06/02/25 1054 DD/ 1052 TD/TT: Armature Inspector: Procedure Note Radiology, Radiologist, - 06/02/2025 [place] [address] Ultrasound Report Signed Patient: CHENTE GONZALEZ NMR#: [id number] : 1995Acct:[id number] Age/Sex: 29 / FADM Date: 06/02/25 Loc: [facility] 250-[address]: Tyrell Adams D.O. Ordering Physician: Tyrell Adams D.O. Date of Service: 06/02/25 Procedure(s): US OB BPP w non-stress Accession Number(s): [id number] cc: Tyrell Adams D.O.; Physician,Non-Staff Alejandra The [place] [address] Patient Name: CHENTE GONZALEZ MRN: [id number] date: 1995 Sex: F Assigned Patient Location: [facility] Current Patient Location: [facility] Accession/Order Number: [id number] Exam Date: 06/02/2025 10:22 Report Date: 06/02/2025 10:52 At the request of: TYRELL ADAMS DO Procedure: US OB BPP w non-stress Biophysical profile. Reason for exam: Gestational diabetes COMPARISON: 05/26/2025 TECHNIQUE: Transabdominal imaging of the gravid uterus was obtained. FINDINGS: The solar system installer reports a BPP of 8 out of 8. DOYLE is normal at8.9 cm. heart rate 124 bpm. US/US OB BPP w non-stress IMPRESSION: BPP 8 out of 8. Impression dictated by: Ramana Raza Jr., D.O. 06/02/2025 10:52 AM Dictation Location: [place] [address] Electronically authenticated by: [id number] Y Date: 0:52 Dictated By: Ramana Raza M.D. Signed By:06/02/25 1054 DD/ 1052 TD/TT: Armature Inspector: us Tyrell Adams DO [facility] Final Result documented in this encounter Visit Diagnoses Not on filedocumented in this encounter
--- OUTSIDE RECORDS SUMMARY | 2025-06-02 19:50 | XMS_ITS | Encounter Summary ---
Author Organization [facility] Address [address] [facility] [address] Care Team Providers Care Nut Tapper Name Role Phone Unavailable Primary Care Provider Unavailabl e Encounter Details Date Type Department Care Team (Late Contact Info) Description 01/31/2025 Abstract [facility] [address] [place] [address] Jaspreet Adams DO [address] [place], [place] [address] Social History Tobacco Use Types Packs/Day Years [...] Info) Description 06/12/2025 9:40 AM EDT Routine [facility] [address] [place] [address] Jaspreet Adams DO [address] [place], [facility]11 documented as of this encounter Visit Diagnoses Not on filedocumented in this encounter
--- OUTSIDE RECORDS SUMMARY | 2025-06-02 19:50 | XMS_ITS | Encounter Summary ---
Author Organization [facility] Address [address] [facility] [place] [address] Care Team Providers Care Certified Pathology Assistant Name Role Phone Unavailable Primary Care Provider Unavailabl e Encounter Details Date Type Department Care Team (Late Contact Info) Description 03/24/2025 Abstract [facility] [address] [place] [address] Jaspreet Adams DO [address] [place], [place] [address] Social History Tobacco Use Types Packs/Day Years [...] EDT Routine [facility] [address] [place] [address] Jaspreet Adams DO [address] [place], [facility]11 documented as of this encounter Visit Diagnoses Not on filedocumented in this encounter
--- OUTSIDE RECORDS SUMMARY | 2025-06-02 19:50 | XMS_ITS | Encounter Summary ---
Author Organization [facility] Address [address] [facility] [place] [address] Care Team Providers Care Bar Captain Name Role Phone Unavailable Primary Care Provider Unavailabl e Encounter Details Date Type Department Care Team (Late Contact Info) Description 12/12/2024 Abstract [facility] [address] [place] [address] Jaspreet Adams DO [address] [place], [place] [address] Social History Tobacco Use Types Packs/Day Years [...] EDT Routine [facility] [address] [place] [address] aJspreet Adams DO [address] [place], [facility]11 documented as of this encounter Visit Diagnoses Not on filedocumented in this encounter
--- OUTSIDE RECORDS SUMMARY | 2025-06-02 19:50 | XMS_ITS | Encounter Summary ---
[facility] Address [id number] [address] [place] [address] Care Team Providers Care Animal Ride Attendant Name Role Phone Unavailable Primary Care Provider Unavailabl e Encounter Details Date Type Department Care Team (Late st Contact Info) Description 03/28/2025 Orders Only Maternal- Medicine at [facility] [address] [place] [phone] Domenica Ahmadi, SKY LINE YARDER Social History Tobacco Use Types Packs/Day Years [...]
--- OUTSIDE RECORDS SUMMARY | 2025-06-02 19:50 | XMS_ITS ---
Author Organization [facility] Healthcare Address [address] [place] [address] Care Team Providers Care Skelp Processor Name Role Phone Unavailable Primary Care Provider Unavailabl e Comprehensive Maternal Care ([facility]) Status:Enrolled (Active) Start date:05/23/2025 Enrollment date:05/26/2025 Enrollment reason:Identified by Health Plan Case Team Name Relationship Phone Deyanira Phillips LPN(Responsible Staff) Licensed [facility] Nurse [phone] Continued Care and Services Coordination
--- OUTSIDE RECORDS SUMMARY | 2025-06-02 19:50 | XMS_ITS | Encounter Summary ---
Author Organization [facility] Address [address] [place] [address] Care Team Providers Care Drawing Operator Name Role Phone Unavailable Primary Care Provider Unavailabl e Encounter Details Date Type Department Care Team ([facility] st Contact Info) Description 05/26/2025 Patient Outreach [facility] [address] [place] [address] Deyanira Phillips LPN [address] [place] [address] Social History Tobacco Use Types Packs/Day Years [...] Pt in process of becoming established with [facility]. Meds reviewed. Next OB OV 06/02/25. documented in this encounter Plan of Treatment Upcoming Encounters Date Type Department Care Team (Late st Contact Info) Description 06/12/2025 9:40 AM EDT Routine [facility] [address] [place] [address] Jaspreet Adams DO [address] [place] [address] documented as of this encounter Visit Diagnoses Not on filedocumented in this encounter
--- OUTSIDE RECORDS SUMMARY | 2025-06-02 19:50 | XMS_ITS | Encounter Summary ---
Author Organization [facility] Address [address] [place] [address] Care Team Providers Care Adapted Physical Education Aide Name Role Phone Unavailable Primary Care Provider Unavailabl e Encounter Details Date Type Department Care Team (Late st Contact Info) Description 05/26/2025 Clinisync Result Encounter [facility] External Department Unsolicited Tyrell Adams DO [address] [place], [place] [phone] Social History Tobacco Use Types Packs/Day Years [...] Routine [facility] [address] [place] [address] Tyrell Adams DO [address] [place], [place] [address] documented as of this encounter Procedures Procedure Name Priority Date/Time Associated Diagnosis Comments US OB BPP W NON-STRESS 05/26/2025 11:39 AM EDT documented in this encounter Results * US OB BPP W NON-STRESS (05/26/2025 11:39 AM EDT) Anatomical Region Laterality Modality Other 05/26/2025 11:3 9 AM EDT Narrative 05/26/2025 11:42 [place] [address] Ultrasound Report Signed Patient: CHENTE GONZALEZ MR#: [id number] : 1995 Acct:[id number] Age/Sex: 29 / F ADM Date: 05/26/25 Loc: US Attending Dr: Tyrell Adams D.O. Ordering Physician: Tyrell Adams D.O. Date of Service: 05/26/25 Procedure(s): US OB BPP w non-stress Accession Number(s): [id number] cc: Tyrell Adams D.O.; Physician,Non-Staff M.DPeggy The [place] [id number] Patient Name: CHENTE GONZALEZ MRN: [id number] date: 1995 Sex: F Assigned Patient [facility]: [facility] Current Patient Location: Accession/Order Number: [id number] Exam Date: 05/26/2025 10:05 Report Date: 05/26/2025 [...] Mae M.D. 05/26/2025 11:39 AM Dictation Location: [place] [address] Electronically authenticated by: [id number] Y Date: 05/26/2025 11:39 Dictated By: Rahel Mae M.D. Signed By: 05/26/25 1142 DD/ 1139 TD/TT: Single Pointed Operator: Procedure Note Radiology, Radiologist, MD - 05/26/2025 [place] [address] Ultrasound Report Signed Patient: CHENTE GONZALEZ NMR#: [id number] : 1995Acct:[id number] Age/Sex: 29 FADM Date: 05/26/25 Loc: US Attending Dr: Tyrell Adams D.O. Ordering Physician: Tyrell Adams D.O. Date of Service: 05/26/25 Procedure(s): US OB BPP w non-stress Accession Number(s): [id number] cc: Tyrell Adams D.O.; Physician,Non-Staff Alejandra The [place] [id number] Patient Name: CHENTE GONZALEZ MRN: [id number] date: 1995 Sex: F Assigned Patient Location: [facility] Current Patient Location: Accession/Order Number: [id number] Exam Date: 05/26/2025 10:05 Report Date: 05/26/2025 [...] Mae M.D. 05/26/2025 11:39 AM Dictation Location: [place] [address] Electronically authenticated by: [id number] Y Date: 1:39 Dictated By: Rahel Mae M.D. Signed By:05/26/25 1142 DD/ 1139 TD/TT: Single Pointed Operator: us Tyrell Adams DO [facility] Final Result documented in this encounter Visit Diagnoses Not on filedocumented in this encounter
--- OUTSIDE RECORDS SUMMARY | 2025-06-02 19:50 | XMS_ITS | Clinical Summary ---
Author Organization [facility] tem Address [id number] [address] [place] [address] Care Team Providers Care Urogynaecologist Name Role Phone Unavailable Primary Care Provider Unavailabl e Encounters Date Type Department Care Team Description 03/28/2025 Abstract Maternal- Medicine at [facility] [address] [place] [phone] External, Scanning Provider 03/28/2025 Orders Only Maternal- Medicine at [facility] [address] [place] [phone] Domenica Ahmadi, WINDING RACK OPERATOR from Last 3 Months Social History Tobacco [...]
--- OUTSIDE RECORDS SUMMARY | 2025-06-02 19:50 | XMS_ITS | Encounter Summary ---
Author Organization [facility] Address [address] [place] [address] Care Team Providers Care Arc Cutter Name Role Phone Unavailable Primary Care Provider Unavailabl e Encounter Details Date Type Department Care Team (Late st Contact Info) Description 05/19/2025 Clinisync Result Encounter [facility] External Department Unsolicited Tyrell Adams DO [address] [place] [phone] Social History Tobacco Use Types Packs/Day Years [...] Info) Description 06/12/2025 9:40 AM EDT Routine [facility] [place] [facility] [address] [place], [place] [phone] Tyrell Adams DO [address] [place], [place] [phone] documented as of this encounter Procedures Procedure [...] Tyrell Angie DO CLINISYNC Final Result [facility] * [facility] APTT (05/19/2025 11:00 AM EDT) PARTIAL THROMBOPLASTIN TIME 24.8 22.3 - 36.2 sec TBH 05/19/2025 11:0 0 AM EDT 05/19/2025 11:06 AM EDT Narrative CLINISYNC - 05/19/2025 11:43 AM EDT Tyrell BURNETT Final Result Performing Organization Address [facility] Co de Phone Number [facility] * [facility] PROTHROMBIN TIME INR W/O COUM (05/19/2025 11:00 AM EDT) PROTHROMBIN TIME 9.8 9.0 - 11.6 sec TB TB INR <0.93 TBH Comment: DESIRED INR: 2.0-3.0 CONDITIONS NOT LISTED BELOW 2.5-3.5 FOR PROSTHETIC HEART VALVE REPLACEMENT 2.5-3.5 RECURRENT THROMBOSIS 05/19/2025 11:0 0 AM EDT 05/19/2025 11:06 AM EDT Narrative CLINISYNC - 05/19/2025 11:43 AM EDT Tyrell BURNETT Final Result Performing Organization Address [facility]/ZIP Co de Phone Number [facility] * [facility] ALT (05/19/2025 11:00 AM EDT) ALANINE AMINOTRANSFERASE 25 14 - 59 U/L TB 05/19/2025 11:0 0 AM EDT 05/19/2025 11:06 AM EDT Narrative CLINISYNC - 05/19/2025 11:31 AM EDT Tyrell BURNETT Final Result Performing Organization Address City/[facility]/ZIP Co de Phone Number [facility] * [facility] AST (05/19/2025 11:00 AM EDT) ASPARTATE AMINO TRANSFERASE 15 15 - 37 U/L TB 05/19/2025 11:0 0 AM EDT 05/19/2025 11:06 AM EDT Narrative CLINISYNC - 05/19/2025 11:31 AM EDT us Tyrell Angie DO CLINISYNC Final Result CLINISYNC TB * ALL URIC ACID (05/19/2025 11:00 AM EDT) URIC ACID 4.4 2.6 - 6.0 mg/dL TB 05/19/2025 11:0 0 AM EDT 05/19/2025 11:06 AM EDT Narrative CLINISYNC - 05/19/2025 11:31 AM EDT us Tyrell Angie DO CLINISYNC Final Result Performing Organization Address [facility] Co de Phone Number CLINISYNC TB * TBH CREATININE (05/19/2025 11:00 AM EDT) CREATININE 0.65 0.55 - 1.02 mg/dL TB TBH EGFR-AF UKRAINIAN >60 >=60 mL/min/1.7 3m 2 TBH TBH EGFR-NON AF UKRAINIAN >60 >=60 mL/min/1.7 3m 2 TBH 05/19/2025 11:0 0 AM EDT 05/19/2025 11:06 AM EDT Narrative CLINISYNC - 05/19/2025 11:31 AM EDT Tyrell Angie DO CLINISYNC Final Result Performing Organization Address City/[facility]/ZIP Co de Phone Number CLINISYNC TB * ALL BUN (05/19/2025 11:00 AM EDT) BLOOD UREA NITROGEN 7.0 7.0 - 18.0 mg/dL TB 05/19/2025 11:0 0 AM EDT 05/19/2025 11:06 AM EDT Narrative CLINISYNC - 05/19/2025 11:31 AM EDT Tyrell Angie DO CLINISYNC Final Result CLINISYNC TB * (ABNORMAL) ALL CBC WITH AUTO DIFF (05/19/2025 11:00 AM EDT) [facility] Signature TBH WBC 10.5 4.0 - 11.0 10 [...] AM EDT 05/19/2025 11:06 AM EDT Narrative JENNIFERISYNC - 05/19/2025 11:15 AM EDT Tyrell Adams DO CLINISYNC Final Result [facility] * US OB BPP W NON-STRESS (05/19/2025 10:54 AM EDT) Anatomical Region Laterality Modality Other 05/19/2025 10:5 4 AM EDT Narrative 05/19/2025 10:[place] [address] Ultrasound Report Signed Patient: CHENTE GONZALEZ MR#: [id number] : 1995 Acct:[id number] Age/Sex: 29 / F ADM Date: 05/19/25 Loc: [facility] 250-[address]: Tyrell Adams D.O. Ordering Physician: Tyrell Adams D.O. Date of Service: 05/19/25 Procedure(s): US OB BPP w non-stress Accession Number(s): [id number] cc: Tyrell Adams D.O.; Physician,Non-Staff MRu [place] [address] Patient Name: CHENTE GONZALEZ MRN: [id number] date: 1995 Sex: F Assigned Patient Location: [facility] Current Patient Location: [facility] Accession/Order Number: [id number] Exam Date: 05/19/2025 10:15 Report Date: 05/19/2025 [...] Mae M.D. 05/19/2025 10:54 AM Dictation Location: [place] [address] Electronically authenticated by: [id number] Y Date: 05/19/2025 10:54 Dictated By: Rahel Mae M.D. Signed By: 05/19/25 1056 DD/ 1054 TD/TT: Trade Specialist: Procedure Note Radiology, Radiologist, MD - 05/19/2025 [place] [address] Ultrasound Report Signed Patient: CHENTE GONZALEZ NMR#: [id number] : 1995Acct:[id number] Age/Sex: 29 / FADM Date: 05/19/25 Loc: [facility] 250-[address]: Tyrell Adams D.O. Ordering Physician: Tyrell Adams D.O. Date of Service: 05/19/25 Procedure(s): US OB BPP w non-stress Accession Number(s): [id number] cc: Tyrell Adams D.O.; Physician,Non-Staff [place] [id number] Patient Name: CHENTE GONZALEZ MRN: [id number] date: 1995 Sex: F Assigned Patient Location: [facility] Current Patient Location: [facility] Accession/Order Number: [id number] Exam Date: 05/19/2025 10:15 Report Date: 05/19/2025 [...] Mae M.D. 05/19/2025 10:54 AM Dictation Location: [place] Electronically authenticated by: [id number] Y Date: 0:54 Dictated By: Rahel Mae M.D. Signed By:05/19/25 1056 DD/ 1054 TD/TT: Trade Specialist: Tyrell Angie DO CLINISYNC IMAGING Final Result [...] Angie DO CLINISYNC Final Result CLINISYNC [facility] documented in this encounter Visit Diagnoses Not on filedocumented in this encounter
--- OUTSIDE RECORDS SUMMARY | 2025-06-02 19:50 | XMS_ITS | Encounter Summary ---
Author Organization [facility] Address [address] [facility] [place] [address] Care Team Providers Care Correctional Therapy Teacher Name Role Phone Unavailable Primary Care Provider Unavailabl e Encounter Details Date Type Department Care Team ([facility] Contact Info) Description 05/23/2025 Abstract [facility] [place] [address] [place] [phone] Jaspreet Adams DO [address] [place], [facility] Social History Tobacco Use Types [...] 06/12/2025 9:40 AM EDT Routine [facility] OBGYCarlos Alberto [address] [place] [address] Jaspreet Adams DO [address] [place] [address] documented as of this encounter Visit Diagnoses Not on filedocumented in this encounter
--- OUTSIDE RECORDS SUMMARY | 2025-06-02 19:50 | XMS_ITS | Encounter Summary ---
Author Organization [facility] Address [address] [facility] [place] [address] Care Team Providers Care Wax Molder Name Role Phone Unavailable Primary Care Provider Unavailabl e Encounter Details Date Type Department Care Team (Late st Contact Info) Description 05/20/2025 Clinisync Result Encounter [facility] External Department Unsolicited Tyrell Adams DO [address] [place] [address] Social History Tobacco Use Types Packs/Day Years [...] Routine [facility] [place] [address] [place], [place] [phone] Tyrell Adams DO [address] [place] [address] documented as of this encounter Procedures Procedure Name Priority Date/Time Associated Diagnosis Comments US AMNIOTIC FLUID VOLUME 05/20/2025 11:33 AM EDT documented in this encounter Results * US AMNIOTIC FLUID VOLUME (05/20/2025 11:33 AM EDT) Anatomical Region Laterality Modality Radiographic Eileen ging 05/20/2025 11:3 3 AM EDT Narrative 05/20/2025 11:36 AM EDT [address] [address] Ultrasound Report Signed Patient: CHENTE GONZALEZ MR#: [id number] : 1995 Acct:[id number] Age/Sex: 29 / F ADM Date: 05/20/25 Loc: [facility] 250-[address]: Tyrell Adams D.O. Ordering Physician: Tyrell Adams D.O. Date of Service: 05/20/25 Procedure(s): US OB amniotic fluid vol Accession Number(s): [id number] cc: Tyrell Adams D.O.; Physician,Non-Staff [place] [phone] Patient Name: CHENTE GONZALEZ MRN: [id number] date: 1995 Sex: F Assigned Patient Location: [facility] Current Patient Location: [place] Accession/Order Number: [id number] Exam Date: 05/20/2025 11:10 Report Date: 05/20/2025 11:33 At the request of: TYRELL ADAMS DO Procedure: US OB amniotic fluid vol ULTRASOUND OB AMNIOTIC FLUID VOLUME CLINICAL DATA: Oligohydramnios COMPARISON: [facility] 05/17/2025 There is a single live intrauterine [...] Mae M.D. 05/20/2025 11:33 AM Dictation Location: [place] [address] Electronically authenticated by: [id number] Y Date: 05/20/2025 11:33 Dictated By: Rahel Mae M.D. Signed By: 05/20/25 1136 DD/ 1133 TD/TT: Metal Cut Off Saw Tender: Procedure Note Radiology, Radiologist, - 05/20/2025 [place] [address] Ultrasound Report Signed Patient: CHENTE GONZALEZ NMR#: [id number] : 1995Acct:[id number] Age/Sex: 29 / FADM Date: 05/20/25 Loc: [facility] 250-[address]: Tyrell Adams D.O. Ordering Physician: Tyrell Adams D.O. Date of Service: 05/20/25 Procedure(s): US OB amniotic fluid vol Accession Number(s): [id number] cc: Tyrell Adams D.O.; Physician,Non-Staff Alejandra The [place] [id number] Patient Name: CHENTE GONZALEZ MRN: [id number] date: 1995 Sex: F Assigned Patient Location: [facility] Current Patient Location: [place] Accession/Order Number: [id number] Exam Date: 05/20/2025 11:10 Report Date: 05/20/2025 11:33 At the request of: TYRELL ADAMS DO Procedure: US OB amniotic fluid vol ULTRASOUND OB AMNIOTIC FLUID VOLUME CLINICAL DATA: Oligohydramnios COMPARISON: [facility] 05/17/2025 There is a single live intrauterine [...] Mae M.D. 05/20/2025 11:33 AM [facility]ictation [facility] Electronically authenticated by: [id number] Y Date: 1:33 Dictated By: Rahel Mae M.D. Signed By:05/20/25 1136 DD/ 1133 TD/TT: Metal Cut Off Saw Tender: Tyrell Adams DO IMG XR PROCEDURES Final Result documented in this encounter Visit Diagnoses Not on filedocumented in this encounter
--- OUTSIDE RECORDS SUMMARY | 2025-06-02 19:50 | XMS_ITS | Encounter Summary ---
Author Organization [facility] Address [address] [facility] [place] [address] Care Team Providers Care Flight Control Tower Operator Name Role Phone Unavailable Primary Care Provider Unavailabl e Encounter Details Date Type Department Care Team (Late Contact Info) Description 03/11/2025 Orders Only MATTIE VARGAS [address] [place] [address] Britt Christensen MA [address] [place] [address] Social History Tobacco Use Types Packs/Day Years [...] Department Care Team (Late Contact Info) Description 06/12/2025 9:40 AM EDT Routine [facility] [address] [place] [address] Jaspreet Adams DO [address] [place] [place], [place] [phone] documented as of this encounter Procedures Procedure [...]
--- OUTSIDE RECORDS SUMMARY | 2025-06-02 19:50 | XMS_ITS | Encounter Summary ---
Author Organization [facility] Address [address] [place] [address] Care Team Providers Care Mold Checker Name Role Phone Unavailable Primary Care Provider Unavailabl e Encounter Details Date Type Department Care Team (Late st Contact Info) Description 05/29/2025 Abstract [facility] [address] [place] [address] Deyanira Phillips LPN [address] [place] [address] Social History Tobacco Use Types Packs/Day Years [...] Description 06/12/2025 9:40 AM EDT Routine [facility] [place] OBGYCarlos Alberto [address] [place] [phone] Jaspreet Adams DO [address] [place] [address] documented as of this encounter Visit Diagnoses Not on filedocumented in this encounter
--- OUTSIDE RECORDS SUMMARY | 2025-06-02 19:51 | XMS_ITS | Clinical Summary ---
Author Organization [facility] Address [address] [place] [address] Care Team Providers Care Bar Host Name Role Phone Unavailable Primary Care Provider Unavailabl e Allergies Active Allergy Reactions Criticality Noted Date Comments Penicillin G Unknown 06/02/2025 Penicillins 12/23/2024 Other Reaction(s): Unknown Medications Multiple [...] Encounters Date Type Department Care Team Description 06/02/2025 11:20 AM EDT Routine [facility] Zamora [facility] [place] [address] [place] [address] Nabila Avila NP 35 weeks gestation of ([facility]); Third trimester ([facility]) 06/02/2025 Clinisync Result Encounter [facility]OM[facility] External Department Unsolicited Tyrell Adams, DO 05/29/2025 Abstract [facility] [place] [id number] [place] [address] Deyanira Phillips LPN 05/26/2025 Patient Outreach [facility] [address] [place] [address] Deyanira Phillips LPN 05/26/2025 Clinisync Result Encounter NOMS External Department Unsolicited Tyrell Adams, DO 05/23/2025 Abstract [facility] Kadie Zamora [facility] [address] [place] [address] Tyrell Adams, DO 05/20/2025 Clinisync Result Encounter NOMS External Department Unsolicited Tyrell Adams, DO 05/19/2025 Clinisync Result Encounter NOMS External Department Unsolicited Tyrell Adams, DO 05/15/2025 9:50 AM EDT Routine N[facility]erny Zamora [place] [address] Deyanira Martinez PA 33 weeks gestation of ([facility]); Third trimester ([facility]); Gestational diabetes mellitus (GDM), antepartum, gestational diabetes method of control unspecified ([facility]) 05/15/2025 Bamboo flowsheet [facility] Kadie Zamora [place] [address] Deyanira Martinez PA 04/30/2025 3:00 PM EDT Routine [facility] [place] [place] [address] Tyrell Adams, DO 31 weeks gestation of ([facility]); Third trimester ([facility]); Gestational diabetes mellitus (GDM), antepartum, gestational diabetes method of control unspecified ([facility]) 04/30/2025 2:30 PM EDT Ancillary Procedure [place] [address] Size of fetus inconsistent with dates in second trimester ([facility]) 04/17/2025 9:50 AM EDT Routine [facility] [place] [address] Deyanira Martinez PA Size of fetus inconsistent with dates in second trimester ([facility]) (Primary Dx); Third trimester ([facility]); 29 weeks gestation of ([facility]) 04/17/2025 Bamboo flowsheet [facility] [place] [address] Deyanira Martinez PA 04/03/2025 10:40 AM EDT [place] [address] Tyrell Adams, Second trimester ([facility]); 27 weeks gestation of ([facility]) 04/03/2025 Bamboo flowsheet [facility] Kadie Zamora [place] [address] [phone] Tyrell Adams, DO 03/24/2025 Abstract [facility] [place] [address] Tyrell Adams, DO 03/24/2025 [place]phone [place] [address] Tyrell Adams, DO 03/21/2025 Clinisync Result Encounter NOMS External Department Unsolicited Tyrell Adams, DO 03/19/2025 9:30 AM EDT Ancillary [place] [address] Encounter for follow-up ultrasound of anatomy ([facility]) 03/11/2025 Orders [place] [address] Britt Christensen MA 03/06/2025 [place]phone [place] [address] Kalyn Jacob MA 03/06/2025 Clinisync Result Encounter NOMS External Department Unsolicited Tyrell Adams DO 03/05/2025 11:00 AM EDT [place] [address] Tyrell Adams DO Second trimester ([facility]); 23 weeks gestation of ([facility]); Diabetes mellitus screening; Well woman exam with routine gynecological exam; Other insomnia 03/05/2025 Clinisync Result Encounter NOMS External Department Unsolicited Tyrell Adams DO 03/05/2025 Abstract [place] [address] Kalyn Jacob MA 03/05/2025 Bamboo flowsheet [place] [address] Tyrell Adams DO from Last 3 Months [...] (224 lb) 06/02/2025 11:40 AM EDT Height 165.1 cm (5' 5 ) 12/01/2020 12:00 PM EDT Body Mass Index 37.28 12/01/2020 12:00 PM EDT Plan of Treatment Upcoming Encounters Date Type Department Care Team (Late st Contact Info) Description 06/12/2025 9:40 AM EDT Routine [facility] [address] [facility] [address] [place] [address] Tyrell Adams DO [address] [facility] [place] [address] Procedures Procedure Name Priority Date/Time Associated Diagnosis Comments POCT URINALYSIS DIPSTICK Routine 06/02/2025 11:53 AM EDT 35 weeks gestation of ([facility]) US OB BPP W NON-STRESS 06/02/2025 10:52 AM EDT US OB BPP W NON-STRESS 05/26/2025 11:39 [...] 33 weeks gestation of ([facility]) Third trimester ([facility]) POCT URINALYSIS DIPSTICK Routine 04/30/2025 3:11 PM EDT 31 weeks gestation of ([facility]) Third trimester ([facility]) US OB FOLLOW UP TRANSABDOMINAL APPROACH Routine 04/30/2025 2:49 PM EDT Size of fetus inconsistent with dates in second trimester ([facility]) POCT URINALYSIS DIPSTICK Routine 04/17/2025 10:45 AM EDT Third trimester ([facility]) 29 weeks gestation of ([facility]) POCT URINALYSIS DIPSTICK Routine 04/03/2025 10:59 AM EDT Second trimester ([facility]) 27 weeks gestation of ([facility]) CULTURE, URINE, ROUTINE Routine 03/31/2025 9:28 AM EDT Missed menses GLUCOSE TOLERANCE 3 HOUR Routine 03/21/2025 8:56 AM EDT US OB LIMITED 1+ FETUSES Routine 03/19/2025 10:09 AM EDT Encounter for follow-up ultrasound of anatomy ([facility]) ALL CBC WITH AUTO DIFF Routine 11:22 AM EDT GLUCOSE 1 HOUR Routine 03/06/2025 11:22 AM EDT POCT URINALYSIS DIPSTICK Routine 03/05/2025 11:17 AM EDT Second trimester ([facility]) IGP,APTIMA HPV,AGE GDLN Routine 03/05/2025 11:08 AM EDT PAP SMEAR Routine 03/05/2025 12:00 AM EDT from Last 3 Months Results * (ABNORMAL) POCT urinalysis dipstick manually resulted (06/02/2025 11:53 AM EDT) Only the most recent of6 resultswithin the time period is included. Color, [...] CARE TEST ENTER/EDIT ORDERABLES Final Result * US OB BPP W NON-STRESS (06/02/2025 10:52 AM EDT) Only the most recent of3 resultswithin the time period is included. Anatomical Region Laterality Modality Other 06/02/2025 10:5 2 AM EDT Narrative 06/02/2025 10:54 AM EDT The [address] [address] Ultrasound Report Signed Patient: CHENTE GONZALEZ MR#: [id number] : 1995 Acct:[id number] Age/Sex: 29 / F ADM Date: 06/02/25 Loc: [facility] 250-[address]: Tyrell Adams D.O. Ordering Physician: Tyrell Adams D.O. Date of Service: 06/02/25 Procedure(s): US OB BPP w non-stress Accession Number(s): [id number] cc: Tyrell Adams D.O.; Physician,Non-Staff Alejandra The [address] [address] Patient Name: CHENTE GONZALEZ MRN: [id number] date: 1995 Sex: F Assigned Patient Location: [facility] Current Patient Location: [facility] Accession/Order Number: [id number] Exam Date: 06/02/2025 10:22 Report Date: 06/02/2025 10:52 At the request of: TYRELL ADAMS DO Procedure: US OB BPP w non-stress Biophysical profile. Reason for exam: Gestational diabetes COMPARISON: 05/26/2025 TECHNIQUE: Transabdominal imaging of the gravid uterus was obtained. FINDINGS: The driver education road instructor reports a BPP of 8 out of 8. DOYLE is normal at 8.9 cm. heart rate 124 bpm. US/US OB BPP w non-stress IMPRESSION: BPP 8 out of 8. Impression dictated by: Ramana Raza Jr., D.O. 06/02/2025 10:52 AM Dictation Location: [place] [address] Electronically authenticated by: [id number] Y Date: 06/02/2025 10:52 Dictated By: Ramana Raza M.D. Signed By: 06/02/25 1054 DD/ 1052 TD/TT: Contracts Intern: Procedure Note Radiology, Radiologist, - 06/02/[address] [address] Ultrasound Report Signed Patient: CHENTE GONZALEZ NMR#: [id number] : 1995Acct:[id number] Age/Sex: 29 / FADM Date: 06/02/25 Loc: [facility] 250-[address]: Tyrell Adams D.O. Ordering Physician: Tyrell Adams D.O. Date of Service: 06/02/25 Procedure(s): US OB BPP w non-stress Accession Number(s): [id number] cc: Tyrell Adams D.O.; Physician,Non-Staff Alejandra The [place] [address] Patient Name: CHENTE GONZALEZ MRN: [id number] date: 1995 Sex: F Assigned Patient Location: [facility] Current Patient Location: [facility] Accession/Order Number: [id number] Exam Date: 06/02/2025 10:22 Report Date: 06/02/2025 10:52 At the request of: TYRELL ADAMS DO Procedure: US OB BPP w non-stress Biophysical profile. Reason for exam: Gestational diabetes COMPARISON: 05/26/2025 TECHNIQUE: Transabdominal imaging of the gravid uterus was obtained. FINDINGS: The driver education road instructor reports a BPP of 8 out of 8. DOYLE is normal at8.9 cm. heart rate 124 bpm. US/US OB BPP w non-stress IMPRESSION: BPP 8 out of 8. Impression dictated by: Ramana Raza Jr., D.O. 06/02/2025 10:52 AM Dictation Location: [place] [address] Electronically authenticated by: [id number] Y Date: 0:52 Dictated By: Ramana Raza M.D. Signed By:06/02/25 1054 DD/ 1052 TD/TT: Contracts Intern: us Tyrell Adams DO [facility] IMAGING Final Result * US AMNIOTIC FLUID VOLUME (05/20/2025 11:33 AM EDT) Anatomical Region Laterality Modality Radiographic Eileen ging 05/20/2025 11:3 3 AM EDT Narrative 05/20/2025 11:36 AM EDT [address] [address] Ultrasound Report Signed Patient: CHENTE GONZALEZ MR#: [id number] : 1995 Acct:[id number] Age/Sex: 29 / F ADM Date: 05/20/25 Loc: [facility] 250-[address]: Tyrell Adams D.O. Ordering Physician: Tyrell Adams D.O. Date of Service: 05/20/25 Procedure(s): US OB amniotic fluid vol Accession Number(s): [id number] cc: Tyrell Adams D.O.; Physician,Non-Staff Alejandra [address] [address] Patient Name: CHENTE GONZALEZ MRN: [id number] date: 1995 Sex: F Assigned Patient Location: [facility] Current Patient Location: [place] Accession/Order Number: [id number] Exam Date: 05/20/2025 11:10 Report Date: 05/20/2025 11:33 At the request of: TYRELL ADAMS DO Procedure: US OB amniotic fluid vol ULTRASOUND OB AMNIOTIC FLUID VOLUME CLINICAL DATA: Oligohydramnios COMPARISON: [facility] 05/17/2025 There is a single live [...] Mae M.D. 05/20/2025 11:33 AM Dictation Location: [place] [address] Electronically authenticated by: [id number] Y Date: 05/20/2025 11:33 Dictated By: Rahel Mae M.D. Signed By: 05/20/25 1136 DD/ 1133 TD/TT: Contracts Intern: Procedure Note Radiology, Radiologist, - 05/20/2025 [place] [address] Ultrasound Report Signed Patient: CHENTE GONZALEZ NMR#: [id number] : 1995Acct:[id number] Age/Sex: 29 / FADM Date: 05/20/25 Loc: [facility] 250- Attending Dr: Tyrell Adams D.O. Ordering Physician: Tyrell Adams D.O. Date of Service: 05/20/25 Procedure(s): US OB amniotic fluid vol Accession Number(s): [id number] cc: Tyrell Adams D.O.; Physician,Non-Staff Alejandra The [place] [id number] Patient Name: CHENTE GONZALEZ MRN: [id number] date: 1995 Sex: F Assigned Patient Location: [facility] Current Patient Location: [place] Accession/Order Number: [id number] Exam Date: 05/20/2025 11:10 Report Date: 05/20/2025 11:33 At the request of: TYRELL ADAMS DO Procedure: US OB amniotic fluid vol ULTRASOUND OB AMNIOTIC FLUID VOLUME CLINICAL DATA: Oligohydramnios COMPARISON: [facility] 05/17/2025 There is a single live [...] Mae M.D. 05/20/2025 11:33 AM Dictation Location: [place] [address] Electronically authenticated by: [id number] Y Date: 1:33 Dictated By: Rahel Mae M.D. Signed By:05/20/25 1136 DD/ 1133 TD/TT: Contracts Intern: Tyrell Angie DO IMG XR PROCEDURES Final Result * [facility]H CREATININE (05/19/2025 11:00 AM EDT) CREATININE 0.65 0.55 - 1.02 mg/dL TBH TBH EGFR-AF FILIPINO >60 >=60 mL/min/1.7 3m 2 TBH TBH EGFR-NON AF FILIPINO >60 >=60 mL/min/1.7 3m 2 TBH 05/19/2025 11:0 0 AM EDT 05/19/2025 11:06 AM EDT Narrative [facility] - 05/19/2025 11:31 AM EDT Tyrell Angie DO CL[facility] Final Result [facility] * SRMCOH PROTHROMBIN TIME INR W/O COUM (05/19/2025 11:00 AM EDT) PROTHROMBIN TIME 9.8 9.0 - 11.6 sec TBH TBH INR <0.93 TBH Comment: DESIRED INR: 2.0-3.0 CONDITIONS NOT LISTED BELOW 2.5-3.5 FOR PROSTHETIC HEART VALVE REPLACEMENT 2.5-3.5 RECURRENT THROMBOSIS 05/19/2025 11:0 0 AM EDT 05/19/2025 11:06 AM EDT Narrative [facility]IN[facility]NC - 05/19/2025 11:43 AM EDT Tyrell Angie DO CLINIS[facility]NC Final Result [facility] * (ABNORMAL) MHPT FIBRINOGEN (05/19/2025 11:00 AM EDT) FIBRINOGEN 552(H) 200 - 400 mg/dL TBH 05/19/2025 11:0 0 AM EDT 05/19/2025 11:06 AM EDT Narrative CLINISYNC - 05/19/2025 11:43 AM EDT us Tyrell Angie DO CLINISYNC Final Result [facility] * [facility] AST (05/19/2025 11:00 AM EDT) ASPARTATE AMINO TRANSFERASE 15 15 - 37 U/L TBH 05/19/2025 11:0 0 AM EDT 05/19/2025 11:06 AM EDT Narrative CLINISYNC - 05/19/2025 11:31 AM EDT us Tyrell Angie DO CLINISYNC Final Result [facility] * [facility] APTT (05/19/2025 11:00 AM EDT) PARTIAL THROMBOPLASTIN TIME 24.8 22.3 - 36.2 sec TBH 05/19/2025 11:0 0 AM EDT 05/19/2025 11:06 AM EDT Narrative CLINISYNC - 05/19/2025 11:43 AM EDT Tyrell Angie DO CLINISYNC Final Result [facility] TB * [facility] ALT (05/19/2025 11:00 AM EDT) ALANINE AMINOTRANSFERASE 25 14 - 59 U/L TBH 05/19/2025 11:0 0 AM EDT 05/19/2025 11:06 AM EDT Narrative CLINISYNC - 05/19/2025 11:31 AM EDT Tyrell Angie DO CLINISYNC Final Result [facility] * ALL URIC ACID (05/19/2025 11:00 AM EDT) Pathologist [facility] URIC ACID 4.4 2.6 - 6.0 mg/dL TB 05/19/2025 11:0 0 AM EDT 05/19/2025 11:06 AM EDT Narrative CLINISYNC - 05/19/2025 11:31 AM EDT Tyrell Angie DO [facility]NC Final Result [facility] * (ABNORMAL) ALL CBC WITH AUTO DIFF (05/19/2025 11:00 AM EDT) Only the most recent of2 resultswithin the time period is included. [facility] TBH WBC 10.5 4.0 - 11.0 [...] CLINISYNC - 05/19/2025 11:15 AM EDT Tyrell Angie DO CLINISYNC Final Result [facility] TB * ALL BUN (05/19/2025 11:00 AM EDT) BLOOD UREA NITROGEN 7.0 7.0 - 18.0 mg/dL TBH 05/19/2025 11:0 0 AM EDT 05/19/2025 11:06 AM EDT Narrative CLINISYNC - 05/19/2025 11:31 AM EDT Tyrell Angie DO CLINISYNC Final Result Performing Organization Address [facility] Co de Phone Number [facility]NC TB * (ABNORMAL) TBH URINE T PROTEIN CREAT RATIO (05/19/2025 10:50 AM EDT) TOTAL PROTEIN URINE RANDOM 35.9(H) <=11.9 mg/dL TBH CREATININE URINE RANDOM 50.11 20.00 - 300.00 mg/dL TBH PROTEIN CREATININE RATIO URINE 0.72 TBH 05/19/2025 10:5 0 AM EDT 05/19/2025 11:06 AM EDT Narrative CLINISYNC - 05/19/2025 11:55 AM EDT Tyrell Angie DO CLINISYNC Final Result [facility] * US OB follow up transabdominal approach [...] period. TRANSCRIBED BY: ELECTRONICALLY SIGNED BY: Ramana Lcehuga MD us Deyanira KABA IMG OB US PROCEDURES Final Resul t * Urine culture (03/31/2025 9:28 AM EDT) Urine Urine specimen obtained by clean catch procedure / Unknown us Tyrell Angie DO LAB MICROBIOLOGY - GENERAL [...] Narrative CLINISYNC - 03/21/2025 12:54 PM EDT us Tyrell Angie DO LAB BLOOD ORDERABLES [...] II, MD, PHD at 21-Mar-2025 08:31:03 AM [facility] Procedure Note Alden Calloway MD - [...] signed by ALDEN CALLOWAY II, MD, PHD [id number] 08:31:03 AM [facility] Nabila Avila NP IMG OB US PROCEDURES Final Re sult * (ABNORMAL) GLUCOSE 1 HOUR (03/06/2025 11:22 AM EDT) GLUCOSE 1 HOUR 141(H) <130 mg/dL TBH 03/06/2025 11:2 2 AM EDT 03/06/2025 11:24 AM EDT Narrative CLINISYNC - 03/06/2025 11:47 AM EDT us Tyrell Angie DO LAB BLOOD ORDERABLES Final Resul t [facility] * IGP,APTIMA HPV,AGE GDLN (03/05/2025 11:08 AM EDT) AGE GDLN ACOG TESTING Note . [facility] Comment: TESTS RESULT FLAG UNITS REF RANGE LAB Clinician Provided Cytology Information Source.............[employer] Other.............. No. of containers..01 ThinPrep Vial Age Algo ACOG Mandie... -25 09 FLAG LEGEND: L-Low Normal,H-High Normal,LL-Alert Low,HH-Alert High <-Panic Low,>-Panic High,A-Abnormal,AA-Critical Abnormal Performed at: 01 [facility] [address] [place] [address] Mckenna Polanco MD, IGP, RFX APTIMA HPV ASCU Note . [facility] Comment: TESTS RESULT FLAG UNITS REF RANGE LAB DIAGNOSIS: 02 NEGATIVE FOR INTRAEPITHELIAL LESION OR MALIGNANCY. Specimen adequacy: 02 Satisfactory for evaluation. No endocervical component is identified. Performed by: 02 Vernell Pineda Qualification Engineer ([facility]) . 02 Note: Note 02 The [...] <-Panic Low,>-Panic High,A-Abnormal,AA-Critical Abnormal Performed at: [address] [id number] Mckenna Polanco MD, Performed at: = - [facility] [address] [id number] [employer]der [employer] Fitter: Mckenna Polanco MD, Phone: [phone] Performed at: [facility] [address] [id number] [employer] Fitter: Mckenna Polanco MD, Phone: [phone] 03/05/2025 11:0 8 AM EDT 03/05/2025 3:05 PM EDT Narrative CLINISYNC - 03/07/2025 6:13 PM EDT [facility] us Tyrell Angie DO LAB BLOOD ORDERABLES Final Resul t [facility] * Pap Smear (03/05/2025 12:00 AM EDT) Swab Cervical swab / Unknown us Tyrell Angie DO LAB CYTOLOGY ORDERABLES Final Re sult EXTERNAL LAB from Last 3 Months Insurance [employer]
--- OUTSIDE RECORDS SUMMARY | 2025-06-02 19:51 | XMS_ITS | CCD ---
Author Organization [facility] Care Team Providers Care Platform Consultant Name Role Phone ADEOLA COHEN Admitting Unavailable [...] (1 source) Penicillins Drug allergy (disorder) 09-28-2014 [facility] Repository (20 sources) Penicillins Drug Allergy 12-23-2024 [facility] (1 source) Penicillins Drug allergy (disorder) 02-22-[address] [facility] Repository Medications Current Medications Medication Drug Class(es) Dates Sig (Normalized) Sig (Original) Blood Glucose Monitoring Suppl (D-Care Glucometer) w/Device kit (14 sources) Start: 03-24-2025 End: 03-24-2026 Blood Glucose Monitoring Suppl (D-Care Glucometer) w/Device kit Indications: Gestational diabetes mellitus (GDM), antepartum, gestational diabetes method of control unspecified ([facility]) , Elevated glucose tolerance test 1 [...] gestational diabetes method of control unspecified ([facility]) , Elevated glucose tolerance test Apply [...] 25 mg supposito ry Discontinued 25 MG WA Q6H as needed for nausea and vomiting [...] Drug Class(es) Dates Sig (Normalized) Sig (Original) [id number] 200 actuat albuterol 0.09 mg/actuat metered dose [...] D2) 1,250 mcg (50,000 unit) Capsule Discontinued 53714 UNIT PO every week 4 December 27, [...] OB BPP W NON-STRESS on 05-26-2025 [place] [address] Ultrasound Report Signed Patient: CHENTE GONZALEZ MR#: [id number] : 1995 Acct:[id number] Age/Sex: 29 / F ADM Date: 05/26/25 Loc: US Attending Dr: Jaspreet Adams D.O. Ordering Physician: Jaspreet Adams D.O. Date of Service: 05/26/25 Procedure(s): US OB BPP w non-stress Accession Number(s): [id number] cc: Jaspreet Adams D.O.; Physician,Non-Staff M.Tony The [place] [id number] Patient Name: CHENTE GONZALEZ MRN: [facility]:[id number] date: 1995 Sex: F Assigned Patient Location: [facility] Current Patient Location: Accession/Order Number: [id number] Exam Date: 05/26/2025 10:05 Report Date: 05/26/2025 [...] Mae M.D. 05/26/2025 11:39 AM Dictation Location: [place] [address] Electronically authenticated by: [id number] Y Date: 05/26/2025 11:39 Dictated By: Rahel Mae M.D. Signed By: 05/26/25 1142 DD/ 1139 TD/TT: Etl Consultant: [facility] Radiology, Radiologi MD guilherme - 05/26/2025 [place] [address] Ultrasound Report Signed Patient: CHENTE GONZALEZ MR#: [id number] : 1995 Acct:[id number] Age/Sex: 29 / F ADM Date: 05/26/25 Loc: US Attending Dr: Jaspreet Adams D.O. Ordering Physician: Jaspreet Adams D.O. Date of Service: 05/26/25 Procedure(s): US OB BPP w non-stress Accession Number(s): [id number] cc: Jaspreet Adams D.O.; Physician,Non-Staff Alejandra The [address] [address] Patient Name: CHENTE GONZALEZ MRN: [facility]:[id number] date: 1995 Sex: F Assigned Patient Location: [facility] Current Patient Location: Accession/Order Number: [id number] Exam Date: 05/26/2025 10:05 Report Date: 05/26/2025 [...] Mae M.D. 05/26/2025 11:39 AM Dictation Location: [place] [address] Electronically authenticated by: [id number] Y Date: 05/26/2025 11:39 Dictated By: Rahel Mae M.D. Signed By: 05/26/25 1142 DD/ 1139 TD/TT: Etl Consultant: [facility] Radiology Study observation (narrative) [facility] US OB BPP W NON-STRESS Ordered By: Radiologist Radiology on 05-26-2025 [facility] Work Phone: US AMNIOTIC FLUID VOLUMEon 0 05-20-2025 [place] [address] Ultrasound Report Signed Patient: CHENTE GONZALEZ MR#: [id number] : 1995 Acct:[id number] Age/Sex: 29 / F ADM Date: 05/20/25 Loc: [facility] 250-[address]: Jaspreet Adams D.O. Ordering Physician: Jaspreet Adams D.O. Date of Service: 05/20/25 Procedure(s): US OB amniotic fluid vol Accession Number(s): [id number] cc: Jaspreet Adams D.O.; Physician,Non-Staff Alejandra The [address] [address] Patient Name: CHENTE GONZALEZ MRN: [facility]:[id number] date: 1995 Sex: F Assigned Patient Location: [facility] Current Patient Location: US Accession/Order Number: [id number] Exam Date: 05/20/2025 11:10 Report Date: 05/20/2025 [...] Mae M.D. 05/20/2025 11:33 AM Dictation Location: [place] [address] Electronically authenticated by: [id number] Y Date: 05/20/2025 11:33 Dictated By: Rahel Mae M.D. Signed By: 05/20/25 1136 DD/ 1133 TD/TT: Etl Consultant: [facility] Radiology, Radiologi MD guilherme - 05/20/[address] [address] Ultrasound Report Signed Patient: CHENTE GONZALEZ MR#: [id number] : 1995 Acct:[id number] Age/Sex: 29 / F ADM Date: 05/20/25 Loc: [facility] 250-[address]: Jaspreet Adams D.O. Ordering Physician: Jaspreet Adams D.O. Date of Service: 05/20/25 Procedure(s): US OB amniotic fluid vol Accession Number(s): [id number] cc: Jaspreet Adams D.O.; Physician,Non-Staff Alejandra [place] [id number] Patient Name: CHENTE GONZALEZ MRN: [id number] date: 1995 Sex: F Assigned Patient Location: [facility] Current Patient Location: US Accession/Order Number: [id number] Exam Date: 05/20/2025 11:10 Report Date: 05/20/2025 [...] Mae M.D. 05/20/2025 11:33 AM Dictation Location: [place] [address] Electronically authenticated by: [id number] Y Date: 05/20/2025 11:33 Dictated By: Rahel Mae M.D. Signed By: 05/20/25 1136 DD/ 1133 TD/TT: Etl Consultant: [facility] Radiology Study observation (narrative) [facility] US AMNIOTIC FLUID VOLUMEOrde red By: Radiologist Radiology on 05-20-2025 [facility] Work Phone: US OB BPP W NON-STRESS on 05-19-[address] [address] Ultrasound Report Signed Patient: CHENTE GONZALEZ MR#: [id number] : 1995 Acct:[id number] Age/Sex: 29 / F ADM Date: 05/19/25 Loc: [facility] 250-1 Attending : Jaspreet Adams D.O. Ordering Physician: Jaspreet Adams D.O. Date of Service: 05/19/25 Procedure(s): US OB BPP w non-stress Accession Number(s): [id number] cc: Jaspreet Adams D.O.; Physician,Non-Staff Alejandra [place] [id number] Patient Name: CHENTE GONZALEZ MRN: [facility]:[id number] date: 1995 Sex: F Assigned Patient Location: [facility] Current Patient Location: [facility] Accession/Order Number: [id number] Exam Date: 05/19/2025 10:15 Report Date: 05/19/2025 [...] Mae M.D. 05/19/2025 10:54 AM Dictation Location: [place] [address] Electronically authenticated by: [id number] Y Date: 05/19/2025 10:54 Dictated By: Rahel Mae M.D. Signed By: 05/19/25 1056 DD/ 1054 TD/TT: Etl Consultant: [facility] Radiology, Radiologi MD guilherme - 05/19/2025 [place] [address] Ultrasound Report Signed Patient: CHENTE GONZALEZ MR#: [id number] : 1995 Acct:[id number] Age/Sex: 29 / F ADM Date: 05/19/25 Loc: [facility] 250-[address]: Jaspreet Adams D.O. Ordering Physician: Jaspreet Adams D.O. Date of Service: 05/19/25 Procedure(s): US OB BPP w non-stress Accession Number(s): [id number] cc: Jaspreet Adams D.O.; Physician,Non-Staff Alejandra The [place] [address] Patient Name: CHENTE GONZALEZ MRN: [id number] date: 1995 Sex: F Assigned Patient Location: [facility] Current Patient Location: [facility] Accession/Order Number: [id number] Exam Date: 05/19/2025 10:15 Report Date: 05/19/2025 [...] Mae M.D. 05/19/2025 10:54 AM Dictation Location: [place] [address] Electronically authenticated by: [id number] Y Date: 05/19/2025 10:54 Dictated By: Rahel Mae M.D. Signed By: 05/19/25 1056 DD/ 1054 TD/TT: Etl Consultant: [facility] Radiology Study observation (narrative) [facility] US OB BPP W NON-STRESS Ordered By: Radiologist Radiology on 05-19-2025 [facility] Work Phone: Urinalysis macro (dipstick) panel (U)on 05-15-2025 Bilirubin, UA Negative Negative - 4(70) +++ mg/dL [facility] Blood, UA Positive Negative - 50 Derick/mcL [facility] Comment on above: 1+ Clarity, UA Clear [facility] Color, UA Straw [facility] Glucose, UA Negative Negative - 2000(110) ++++ mg/dL [facility] Interpretation and review of laboratory results Abnormal [facility] Ketones, UA Negative Negative - 160(16) ++++ mg/dL [facility] Leukocytes, UA Negative Negative - 500+++ Julio/mcL [facility] Nitrite, UA Negative Negative - Positive [facility] pH, UA 6 5 - 9 [facility] Protein, UA Positive Negative - 2000(20) ++++ mg/dL [facility] Comment on above: 2+ Spec Grav, UA 1.02 1 - 1.03 [facility] Urobilinogen, UA 1.0 0.2 - 12 mg/dL [facility] US OB FOLLOW UP TRANSABDOMIN AL APPROACHon [...] UA Negative Negative - 4(70) +++ mg/dL [facility] Blood, UA Positive Negative - 50 Derick/mcL [facility] Comment on above: 1+ Clarity, UA Clear [facility] Color, UA Yellow [facility] Glucose, UA Negative Negative - 1999(110) ++++ mg/dL [facility] Interpretation and review of laboratory results Abnormal [facility] Ketones, UA Negative Negative - 160(16) ++++ mg/dL [facility] Leukocytes, UA Negative Negative - 500+++ Julio/mcL [facility] Nitrite, UA Negative Negative - Positive [facility] pH, UA 6 5 - 9 [facility] Protein, UA Positive Negative - 1999(20) ++++ mg/dL [facility] Spec Grav, UA 1.01 1 - 1.03 [facility] Urobilinogen, UA 1.0 0.2 - 12 mg/dL [facility] Urinalysis macro (dipstick) panel (U)on 04-17-2025 Bilirubin, UA Negative Negative - 4(70) +++ mg/dL [facility] Blood, UA Positive Negative - 50 Derick/mcL [facility] Clarity, UA Clear [facility] Color, UA Yellow [facility] Glucose, UA Negative Negative - 2000(110) ++++ mg/dL [facility] Interpretation and review of laboratory results Abnormal [facility] Ketones, UA Negative Negative - 160(16) ++++ mg/dL [facility] Leukocytes, UA Positive Negative - 500+++ Julio/mcL [facility] Nitrite, UA Negative Negative - Positive [facility] pH, UA 6 5 - 9 [facility] Protein, UA Negative Negative - 2000(20) ++++ mg/dL [facility] Spec Grav, UA 1.015 1 - 1.03 [facility] Urobilinogen, UA 1.0 0.2 - 12 mg/dL [facility] Urinalysis macro (dipstick) panel (U)on 04-03-2025 Bilirubin, UA Negative Negative - 4(70) +++ mg/dL [facility] Blood, UA Positive Negative - 50 Derick/mcL [facility] Clarity, UA Clear [facility] Color, UA Yellow [facility] Glucose, UA Negative Negative - 1999(110) ++++ mg/dL [facility] Interpretation and review of laboratory results Abnormal [facility] Ketones, UA Negative Negative - 160(16) ++++ mg/dL [facility] Leukocytes, UA Negative Negative - 500+++ Julio/mcL [facility] Nitrite, UA Negative Negative - Positive [facility] pH, UA 6.5 5 - 9 [facility] Protein, UA Negative Negative - 1999(20) ++++ mg/dL [facility] Spec Grav, UA 1.015 1 - 1.03 [facility] Urobilinogen, UA 1.0 0.2 - 12 mg/dL [facility] GLUCOSE TOLERANCE 3 HOURon 0 03-21-2025 GLUCOSE TOLERANCE 3 HOUR High mg/dL [facility] Comment on above: GLU FAST 86 (<95) Co l: 03/21/25 0856 GLU 1HR 181H (<180) Col: 03/21/25 1002 GLU 2HR 162H (<155) Col: 03/21/25 1102 GLU 3HR 75 (<140) Col: 03/21/25 1202 Interpretation and review of laboratory results Abnormal [facility] US OB LIMITED 1+ FETUSESon 0 03-19-2025 [...] PHD at 21-Mar-2025 08:31:03 AM [facility] Normal Not Available Comment on above: Order Comment: US OB INCOMPLETE ANATOMY Estimated Date of Delivery: 07/01/25 Gestational Age as of 02/24/2025: 21w6d IGP,APTIMA HPV,AGE GDLNon AGE GDLN ACOG TESTING Note . [facility] Comment on above: TESTS RESULT FLAG UN ITS REF RANGE LAB Clinician Provided Cytology Information Source.............[employer] Other.............. No. of containers..01 ThinPrep Vial Age Algo ACOG Mandie... -25 09 FLAG LEGEND: L-Low Normal,H-High Normal,LL-Alert Low,HH-Alert High <-Panic Low,>-Panic High,A-Abnormal,AA-Critical Abnormal Performed at: 01 =[address] [address] Mckenna Polanco MD, IGP, RFX APTIMA HPV ASCU Note . [facility] Comment on above: TESTS RESULT FLAG UN ITS REF RANGE LAB DIAGNOSIS: 02 NEGATIVE FOR INTRAEPITHELIAL LESION OR MALIGNANCY. Specimen adequacy: 02 Satisfactory for evaluation. No endocervical component is identified. Performed by: 02 Vernell Pineda, Almond Paste Mixer ([facility]) . 02 Note: Note 02 [...] <-Panic Low,>-Panic High,A-Abnormal,AA-Critical Abnormal Performed at: [address] [place] [address] Mckenna Polanco MD, Performed at: = - [facility] [id number] Insulation Estimator: Mckenna Polanco MD, Phone: [phone] Performed at: [facility] [place] [id number] Insulation Estimator: Mckenna Polanco MD, Phone: [phone] [facility] GLUCOSE 1 HOURon 03-06-2025 Glucose [Mass/Vol] 141 mg/dL High NINF - 13 0 mg/dL [facility] Interpretation and review of laboratory results Abnormal [facility] Glucose tolerance, 1 houron 03-06-2025 Glucose Tolerance Test 1 Hour 141 [facility] No Panel Informationon 03-06 [facility] Urinalysis macro (dipstick) panel (U)on 03-05-2025 Bilirubin, UA Negative Negative - 4(70) +++ mg/dL [facility] Blood, UA Negative Negative - 50 Derick/mcL [facility] Clarity, UA Clear [facility] Color, UA Yellow [facility] Glucose, UA Negative Negative - 2000(110) ++++ mg/dL [facility] Interpretation and review of laboratory results Normal [facility] Ketones, UA Negative Negative - 160(16) ++++ mg/dL [facility] Leukocytes, UA Negative Negative - 500+++ Julio/mcL [facility] Nitrite, UA Negative Negative - Positive [facility] pH, UA 6 5 - 9 [facility] Protein, UA Negative Negative - 2000(20) ++++ mg/dL [facility] Spec Grav, UA 1.01 1 - 1.[address] [facility] Urobilinogen, UA 0.2 0.2 - 12 mg/dL [facility] US OB 14+ WEEKS ANATOMY SCAN on [...] II, MD, PHD at 20-Feb-2025 09:47:05 AM [facility] Normal Not Available Comment on above: Order Comment: US OB ANATOMY SINGLE W US OB CERVICAL LENGTH Estimated Date of Delivery: 07/01/25 Gestational Age as of 02/12/2025: 20w1d HBV surface Ag IA Qlon 02-01 Hepatitis B Surface Antigen Negative [facility] BOX TESTon 01-31-2025 BOX TEST SENT OUT [facility] BOX1 [facility] BOX2 01/31/25 [facility] BOX [facility] Drug Screen, Urineon 025 Amphetamine/Methamphet amine Negative [facility] Barbiturates Negative [facility] Benzodiazepines Negative [facility] Cocaine Metabolite Negative [facility] Ecstasy Negative [facility] Methadone Negative [facility] Opiates Negative [facility] Oxycodone Negative [facility] Phencyclidine Negative [facility] Thc Marijuana, Urine Positive [facility] HIV 1+2 Ab+HIV1 p24 Ag IA Ql on 01-31-2025 HIV 1&2 AB/AG Non-Reactive [facility] Hemoglobin A1con 01-31-2025 HbA1c (Bld) [Mass fraction] 4.9 % 4.0 - 6.0 % [facility] No Panel Informationon 01-31 [facility] Rubella IGG immune statuson 01-31-2025 Rubella immune IgG 7.29 [facility] Type and screenon 01-31-2025 Abo/Rh(D) Negative [facility] No Panel Informationon 01-30 STAPHYLOCOCCUS EPIDERMIDIS, [...] Healthcare STREPTOCOCCUS AGALACTIAE (GROUP B STREP) 0 [facility] STREPTOCOCCUS AGALACTIAE (GROUP B STREP) Not detected [facility] STREPTOCOCCUS PYOGENES (GROUP A STREP) 0 [facility] STREPTOCOCCUS PYOGENES (GROUP A STREP) Not detected [facility] Urinalysis macro (dipstick) panel (U)on 01-29-2025 Bilirubin, UA Negative Negative - 4(70) +++ mg/dL [facility] Blood, UA Positive Negative - 50 Derick/mcL [facility] Comment on above: Trace-intact Clarity, UA Clear [facility] Color, UA Yellow [facility] Glucose, UA Negative Negative - 2000(110) ++++ mg/dL [facility] Interpretation and review of laboratory results Abnormal [facility] Ketones, UA Negative Negative - 160(16) ++++ mg/dL [facility] Leukocytes, UA Negative Negative - 500+++ Julio/mcL [facility] Nitrite, UA Negative Negative - Positive [facility] pH, UA 7 5 - 9 [facility] Protein, UA Trace Negative - 2000(20) ++++ mg/dL [facility] Spec Grav, UA 1.02 1 - 1.03 [facility] Urobilinogen, UA 1.0 0.2 - 12 mg/dL [facility] HCG ( test) Ql (U)o n 01-24-2025 Interpretation and review of laboratory results Abnormal [facility] Preg Test, Ur Positive Negative [facility] US OB LIMITED 1+ FETUSESon 0 01-24-2025 [...] is 07/01/2025. Interpreted by: Electronically signed by LADEN PEREA II, MD, PHD at 27-Jan-2025 10:23:04 AM [facility] Normal Not Available Comment on above: Order Comment: US OB TRANSVAGINAL No LMP recorded. Urinalysis macro (dipstick) panel (U)on 01-24-2025 Bilirubin, UA Negative Negative - 4(70) +++ mg/dL [facility] Blood, UA Positive Negative - 50 Derick/mcL [facility] Comment on above: Trace-Intact Clarity, UA Clear [facility] Color, UA Yellow [facility] Glucose, UA Negative Negative - 2000(110) ++++ mg/dL [facility] Interpretation and review of laboratory results Abnormal [facility] Ketones, UA Negative Negative - 160(16) ++++ mg/dL [facility] Leukocytes, UA Negative Negative - 500+++ Julio/mcL [facility] Nitrite, UA Negative Negative - Positive [facility] pH, UA 7 5 - 9 [facility] Protein, UA Negative Negative - 2000(20) ++++ mg/dL [facility] Spec Grav, UA 1.02 1 - 1.[address] [facility] Urobilinogen, UA 0.2 0.2 - 12 mg/dL [facility] Urine Cultureon 01-06-2025 Bacteria identified Cx Nom (U) No Growth 2 Days PERFORMED BY: [place] [address] PATHOLOGIST HONING MACHINE OPERATOR SEMIAUTOMATIC RAHUL HOLCOMB M.D. Normal [facility] Comment on above: Performed By: #### C UU #### [address] Amphetamine Screen Ql (U)Ord ered By: Denny Azevedo on 08-11-2023 Amphetamines Ql (U) Negative Negative [facility] Amylase [Enzymatic activity/ volume] in Serum or PlasmaOrdered By: Denny Azevedo on 08-11-2023 Amylase [Catalytic activity/Vol] 32 U/L 29-[address] [facility] Aspartate aminotransferase [ Enzymatic activity/volume] in Serum or PlasmaOrdered By: Denny Azevedo on 08-11-2023 AST [Catalytic activity/Vol] 24 U/L 13-[address] [facility] Automated erythrocytes count in urine sediment (number/area)Ordered By: Denny Azevedo on 08-11-2023 RBC Auto (Urine sed) [#/Area] 10-19 [HPF] 0-[address] [facility] Automated leukocytes count i n urine sediment (number/area)Ordered By: Denny Azevedo on 08-11-2023 WBC Auto (Urine sed) [#/Area] 3-4 [HPF] 0-[address] [facility] Barbiturates [Presence] in U rine by Screen methodOrdered By: Denny Azevedo on 08-11-2023 Barbiturates Screen Ql (U) Negative Negative [facility] Basophils Auto (Bld) [#/Vol] Ordered By: Denny Azevedo on 08-11-2023 Basophils (Bld) [#/Vol] 0.1 10*3/uL 0.0-0.[address] [facility] Basophils/100 WBC Auto (Bld) Ordered By: Denny Azevedo on 08-11-2023 Basophils/100 WBC (Bld) 0.9 % . [facility] Benzodiazepines Screen Ql (U )Ordered By: Denny Azevedo on 08-11-2023 Benzodiazepines Ql (U) Negative Negative [facility] Benzoylecgonine [Presence] i n Urine by Screen methodOrdered By: Denny Azevedo on 08-11-2023 Benzoylecgonine Screen Ql (U) Negative Negative [facility] Bilirubin Test strip Ql (U)O rdered By: Denny Azevedo on 08-11-2023 Bilirubin Ql (U) Negative Negative [facility] Cannabinoids [Presence] in U rine by Screen methodOrdered By: Denny Azevedo on 08-11-2023 Cannabinoids Screen Ql (U) Positive Negative [facility] Comment on above: These are unconfirme d results and should not be used for legal purposes. Drug Cut-Off Concentration: AMPH 1000 ng/mL THOMAS 200 ng/mL ARTHUR 200 ng/mL COCM 300 ng/mL OP 300 ng/mL PCP 25 ng/mL THC 20 ng/mL Carbon dioxide, total [Moles /volume] in Serum or PlasmaOrdered By: Denny Azevedo on 08-11-2023 CO2 [Moles/Vol] 17.8 mmol/L 21.0-31.0 [facility] Chloride [Moles/volume] in S marline or PlasmaOrdered By: Denny Azevedo on 08-11-2023 Chloride [Moles/Vol] 108 mmol/L 98-107 [facility] Color Auto (U)Ordered By: French Azevedo on 08-11-2023 Color (U) Yellow Yellow [facility] Creatine kinase [Enzymatic a ctivity/volume] in Serum or PlasmaOrdered By: Denny Azevedo on 08-11-2023 CK [Catalytic activity/Vol] 225 U/L 30-[address] [facility] Creatinine [Mass/volume] in Serum or PlasmaOrdered By: Denny Azevedo on 08-11-2023 Creatinine [Mass/Vol] 0.68 mg/dL 0.60-1.20 [facility] Eosinophils Auto (Bld) [#/Vo l]Ordered By: Denny Azevedo on 08-11-2023 Eosinophils (Bld) [#/Vol] 0.1 10*3/uL 0.0-0.[address] [facility] Eosinophils/100 WBC Auto (Bl d)Ordered By: Denny Azevedo on 08-11-2023 Eosinophils/100 WBC (Bld) 1.3 % . [facility] Erythrocyte distribution wid th Auto (RBC) [Ratio]Ordered By: Denny Azevedo on 08-11-2023 Erythrocyte distribution width (RBC) [Ratio] 12.9 % 11.9-15.[address] [facility] Ethanol [Mass/volume] in Ser um or PlasmaOrdered By: Denny Azevedo on 08-11-2023 Ethanol [Mass/Vol] mg/dL [facility] Ethanol [Mass/Vol] TNP [facility] Comment on above: Test not performed Glucose [Mass/volume] in Ser um or PlasmaOrdered By: Denny Azevedo on 08-11-2023 Glucose [Mass/Vol] 109 mg/dL 70-100 [facility] Comment on above: ADA recommended refe rence rangeRandom Glucose Reference Range is dependent on time and content of last meal. Glucose of more than 200 mg/dL in a nonstressed, ambulatory subject supports the diagnosis of Diabetes Mellitus. HCG ( test) IA.rapi d Ql (U)Ordered By: Denny Azevedo on 08-11-2023 HCG ( test) Ql (U) Negative [facility] Hematocrit Auto (Bld) [Volum e fraction]Ordered By: Denny Azevedo on 08-11-2023 Hematocrit (Bld) [Volume fraction] 40.4 % 34.0-46.[address] [facility] Hemoglobin [Mass/volume] in BloodOrdered By: Denny Azevedo on 08-11-2023 Hemoglobin (Bld) [Mass/Vol] 14.2 g/dL 11.8-15.[address] [facility] INR in Platelet poor plasma by Coagulation assayOrdered By: Denny Azevedo on 08-11-2023 INR Coag (PPP) [Relative time] 1.0 {INR} [facility] Comment on above: INR Therapeutic Rang [...] Ketones Auto test strip (U) [Mass/Vol]Ordered By: Denyn Azevedo on 08-11-2023 Ketones (U) [Mass/Vol] Trace Negative [facility] - UrinalysisOrder ed By: Denny Azevedo on 08-11-2023 Hyaline casts LM Ql (Urine sed) 0-8 [LPF] 0-[address] [facility] Leukocytes [#/volume] correc sonja for nucleated erythrocytes in Blood by Automated counOrdered By: Denny Azevedo on 08-11-2023 WBC corrected for nucl RBC Auto (Bld) [#/Vol] 7.9 10*3/uL 3.8-11.[address] [facility] Lipase [Enzymatic activity/v olume] in Serum or PlasmaOrdered By: Denny Azevedo on 08-11-2023 Lipase [Catalytic activity/Vol] 13.0 U/L 11.0-82.[address] [facility] Lymphocytes Auto (Bld) [#/Vo l]Ordered By: Denny Azevedo on 08-11-2023 Lymphocytes (Bld) [#/Vol] 1.8 10*3/uL 1.00-4.[address] [facility] Lymphocytes/100 WBC Auto (Bl d)Ordered By: Denny Azevedo on 08-11-2023 Lymphocytes/100 WBC (Bld) 23.1 % . [facility] MCH Auto (RBC) [Entitic mass ]Ordered By: Denny Azevedo on 08-11-2023 MCH (RBC) [Entitic mass] 30.4 pg 24.7-34.[address] [facility] MCHC Auto (RBC) [Mass/Vol]Or dered By: Denny Azevedo on 08-11-2023 MCHC (RBC) [Mass/Vol] 35.1 g/dL 32.0-35.0 [facility] MCV Auto (RBC) [Entitic vol] Ordered By: Denny Azevedo on 08-11-2023 MCV (RBC) [Entitic vol] 86.7 fL 80-[address] [facility] Monocyte distribution width [Entitic volume] in Blood by AutomatedOrdered By: Denny Azevedo on 08-11-2023 Monocyte distribution width Auto (Bld) [Entitic vol] 17.99 % 0.00-20.[address] [facility] Monocytes Auto (Bld) [#/Vol] Ordered By: Denny Azevedo on 08-11-2023 Monocytes (Bld) [#/Vol] 0.5 10*3/uL 0.0-0.[address] [facility] Monocytes/100 WBC Auto (Bld) Ordered By: Denny Azevedo on 08-11-2023 Monocytes/100 WBC (Bld) 6.9 % . [facility] Neutrophils Auto (Bld) [#/Vo l]Ordered By: Denny Azevedo on 08-11-2023 Neutrophils (Bld) [#/Vol] 5.4 10*3/uL 1.8-7.[address] [facility] Neutrophils/100 WBC Auto (Bl d)Ordered By: Denny Azevedo on 08-11-2023 Neutrophils/100 WBC (Bld) 67.8 % . [facility] Nitrite Test strip Ql (U)Ord ered By: Denny Azevedo on 08-11-2023 Nitrite Ql (U) Negative Negative [facility] No Panel InformationOrdered By: Denny Azevedo on 08-11-2023 Estimated GFR (CKD-EPI) > 60.0 mL/Min [facility] Creatinine Clearance (Chem 138.[address] [facility] Nucleated erythrocytes [Pres ence] in Blood by Automated countOrdered By: Denny Azevedo on 08-11-2023 Nucleated RBC Auto Ql (Bld) 0.1 /100{WBC} 0-0.[address] [facility] Opiates [Presence] in Urine by Screen methodOrdered By: Denny Azevedo on 08-11-2023 Opiates Screen Ql (U) Negative Negative [facility] Phencyclidine Screen Ql (U)O rdered By: Denny Azevedo on 08-11-2023 Phencyclidine Ql (U) Negative Negative [facility] Platelet mean volume Auto (B ld) [Entitic vol]Ordered By: Denny Azevedo on 08-11-2023 Platelet mean volume (Bld) [Entitic vol] 7.7 fL 6.3-10.[address] [facility] Platelets Auto (Bld) [#/Vol] Ordered By: Denny Azevedo on 08-11-2023 Platelets (Bld) [#/Vol] 307 10*3/uL 150-[address] [facility] Potassium [Moles/volume] in Serum or PlasmaOrdered By: Denny Azevedo on 08-11-2023 Potassium [Moles/Vol] 3.3 mmol/L 3.5-5.1 [facility] Protein Auto test strip (U) [Mass/Vol]Ordered By: Denny Azevedo on 08-11-2023 Protein (U) [Mass/Vol] 30 mg/dL Negative [facility] Prothrombin time (PT)Ordered By: Denny Azevedo on 08-11-2023 PT Coag (PPP) [Time] 12.1 s 9.0-12.9 [facility] Comment on above: A hematocrit value g reater than 55% may lead to inaccurate results in coagulation testing. Patients having hematocrit values >55% require a special collection tube for coagulation studies. Please contact the laboratory at [phone] for redraw instructions. RBC Auto (Bld) [#/Vol]Ordere d By: Denny Azevedo on 08-11-2023 RBC (Bld) [#/Vol] 4.66 10*6/uL 3.60-5.00 [facility] Serum or plasma anion gap de terminationOrdered By: Denny Azevedo on 08-11-2023 Anion gap [Moles/Vol] 15.5 mmol/L 6.0-15.0 [facility] Sodium [Moles/volume] in Ser um or PlasmaOrdered By: Denny Azevedo on 08-11-2023 Sodium [Moles/Vol] 138 mmol/L 136-145 [facility] Specific gravity Auto test s trip (U) [Rel density]Ordered By: Denny Azevedo on 08-11-2023 Specific gravity (U) [Rel density] 1.026 1.001-1.[address] [facility] Squamous epithelial cells de tection in urine sediment by light microscopyOrdered By: Denny Azevedo on 08-11-2023 Epithelial cells.squamous LM Ql (Urine sed) 0-1 [HPF] 0-[address] [facility] Urea nitrogen [Mass/volume] in Serum or PlasmaOrdered By: Denny Azevedo on 08-11-2023 Urea nitrogen [Mass/Vol] 11 mg/dL 7-[address] [facility] Urine bacteria detection by automated methodOrdered By: Denny Azevedo on 08-11-2023 Bacteria Auto Ql (U) None seen None Seen [facility] Urine clarity by refractomet ry automatedOrdered By: Denny Azevedo on 08-11-2023 Clarity Refractometry automated (U) Clear Clear [facility] Urine glucose measurement by automated test strip (mass/volume)Ordered By: Denny Azevedo on 08-11-2023 Glucose Auto test strip (U) [Mass/Vol] Normal mg/dL Normal [facility] Urine hemoglobin detection b y automated test stripOrdered By: Denny Azevedo on 08-11-2023 Hemoglobin Auto test strip Ql (U) 2+ Negative [facility] Urine leukocyte esterase det ection by automated test stripOrdered By: Denny Azevedo on 08-11-2023 Leukocyte esterase Auto test strip Ql (U) Negative Negative [facility] Urobilinogen Auto test strip (U) [Mass/Vol]Ordered By: Denny Azevedo on 08-11-2023 Urobilinogen (U) [Mass/Vol] Normal mg/dL Normal [facility] WBC Auto (Bld) [#/Vol]Ordere d By: Denny Azevedo on 08-11-2023 WBC (Bld) [#/Vol] 7.9 10*3/uL 3.8-11.6 [facility] pH Auto test strip (U)Ordere d By: Denny Azevedo on 08-11-2023 pH (U) 6.5 [pH] 5.0-9.[address] [facility] BILIRUBIN CONJUGATED (DIRECT )on 03-03-2022 BILI, CONJUGATED 0.3 mg/dL Critically high 0.0-0.2 [facility] Comment on above: Performed By: #### D FERNANDEZ #### [facility] [address] [place] [address] Dr. Yaritza Bojorqeuz CBC AUTO DIFFon 03-03-2022 BASO # 0.1 103/ul Normal 0.0-0.1 [facility] Comment on above: Performed By: #### C BC #### [facility] [address] [place] [address] Dr. Yaritza Bojorquez Basophils/100 WBC (Bld) 0.5 % Normal 0.2-2.0 [facility] Comment on above: Performed By: #### C BC #### [facility] [address] [place] [address] Dr. Yaritza Bojorquez EO # 0.0 103/ul Normal 0.0-0.7 [facility] Comment on above: Performed By: #### C BC #### [facility] [address] [place] [address] Dr. Yaritza Bojorquez Eosinophils/100 WBC (Bld) 0.1 % Critically low 0.9-7.0 [facility] Comment on above: Performed By: #### C BC #### [facility] [address] [place] [address] Dr. Yaritza Bojorquez Erythrocyte distribution width (RBC) [Ratio] 12.1 % Normal 11.0-15.0 [facility] Comment on above: Performed By: #### C BC #### [facility] [address] [place] [address] Dr. Yaritza Bojorquez Hematocrit (Bld) [Volume fraction] 45.0 % Normal 36.0-48.0 [facility] Comment on above: Performed By: #### C BC #### [facility] [address] [place] [address] Dr. Yaritza Bojorqeuz Hemoglobin (Bld) [Mass/Vol] 16.5 g/dL Critically high 12.0-16.0 [facility] Comment on above: Performed By: #### C BC #### [facility] [address] [place] [address] Dr. Yaritza Bojorquez IG # 0.05 10e3/ul Critically high 0.00-0.03 [facility] Comment on above: Performed By: #### C BC #### [facility] [address] [place] [address] Dr. Yaritza Bojorquez IG % 0.3 % Normal 0.0-0.5 [facility] Comment on above: Performed By: #### C BC #### [facility] [address] [place] [address] Dr. Yaritza Bojorquez LYMPH # 3.2 103/ul Normal 1.2-3.8 [facility] Comment on above: Performed By: #### C BC #### [facility] [address] [place] [address] Dr. Yaritza Bojorquez Lymphocytes/100 WBC (Bld) 21.6 % Normal 20.5-60.0 [facility] Comment on above: Performed By: #### C BC #### [facility] [address] [place] [address] Dr. Yaritza Bojorquez MANUAL DIFF REQ NO Normal [facility] Comment on above: Performed By: #### C BC #### [facility] [address] [place] [address] Dr. Yaritza Bojorquez MCH (RBC) [Entitic mass] 30.7 pg Normal 26.7-34.0 [facility] Comment on above: Performed By: #### C BC #### [facility] [address] [address] [address] Yaritza Bojorquez MCHC (RBC) [Mass/Vol] 36.7 g/dL Critically high 29.9-35.2 [facility] Comment on above: Performed By: #### C BC #### [facility] [address] [place] [address] Dr. Yaritza Bojorquez MCV (RBC) [Entitic vol] 83.8 fL Normal 81.0-99.0 [facility] Comment on above: Performed By: #### C BC #### [facility] [address] [place] [address] Dr. Yaritza Bojorquez MONO # 0.8 103/ul Normal 0.3-0.8 [facility] Comment on above: Performed By: #### C BC #### [facility] [address] [place] [address] Dr. Yaritza Bojorquez Monocytes/100 WBC (Bld) 5.3 % Normal 1.7-12.0 [facility] Comment on above: Performed By: #### C BC #### [facility] [address] [place] [address] Dr. Yaritza Bojorquez NEUT # 10.5 103/ul Critically high 1.4-6.5 [facility] Comment on above: Performed By: #### C BC #### [facility] [address] [place] [address] Dr. Yaritza Bojorquez Neutrophils/100 WBC (Bld) 72.2 % Normal 43.0-75.0 [facility] Comment on above: Performed By: #### C BC #### [facility] [address] [place] [address] Dr. Yaritza Bojorquez Platelet mean volume (Bld) [Entitic vol] 10.0 fL Normal 9.5-13.5 [facility] Comment on above: Performed By: #### C BC #### [facility] [address] [place] [address] Dr. Yaritza Bojorquez PLT 450 103/ul Normal 150-450 [facility] Comment on above: Performed By: #### C BC #### [facility] [address] [place] [address] Dr. Yaritza Bojorquez RBC 5.37 106/ul Normal 4.20-5.40 [facility] Comment on above: Performed By: #### C BC #### [facility] [address] [place] [address] Dr. Yaritza Bojorquez WBC 14.6 103/ul Critically high 4.0-11.0 [facility] Comment on above: Performed By: #### C BC #### [facility] [address] [place] [address] Dr. Yaritza Bojorquez CULTURE URINEon 03-03-2022 CULTURE URINE Culture Observations : LIGHT GROWTH OF MIXED GENITAL KRYSTAL. NO POTENTIAL PATHOGENS SEEN. Normal [facility] Comment on above: Performed By: #### U RCX #### [facility] [address] [place] [address] Dr. Yaritza Bojorquez ER URINE PROFILEon Bilirubin Ql (U) Negative Normal NEGATIVE [facility] Comment on above: Performed By: #### BABAK MAERO #### [facility] [address] [place] [address] Dr. Yaritza Bojorquez Clarity (U) CLEAR Normal CLEAR [facility] Comment on above: Performed By: #### BABAK MAERO #### [facility] [address] [place] [address] Dr. Yaritza Bojorquez Color (U) DK. YELLOW Normal YELLOW [facility] Comment on above: Performed By: #### BABAK MAERO #### [facility] [address] [place] [address] Dr. Yaritza Bojorquez ERUAHD A micrscopic examina tion will be performed if indicated. Normal [facility] Comment on above: Performed By: #### BABAK MEARO #### [facility] [address] [place] [address] Dr. Yaritza Bojorquez Glucose Ql (U) Negative Normal NEGATIVE [facility] Comment on above: Performed By: #### Sandoval URIBE UMICRO #### [facility] [address] [place] [address] Dr. Yaritza Bojorquez Hemoglobin Ql (U) Negative Normal NEGATIVE [facility] Comment on above: Performed By: #### Sandoval URIBE, UMICRO #### [facility] [address] [place] [address] Dr. Yaritza Bojorquez Ketones Ql (U) >=80 Abnormal NEGATIVE [facility] Comment on above: Performed By: #### E JOJO, UMICRO #### [facility] [address] [place] [address] Dr. Yaritza Bojorquez LEUKOCYTES TRACE Abnormal NEGATIVE [facility] Comment on above: Performed By: #### E JOJO, UMICRO #### [facility] [address] [place] [address] Dr. Yaritza Bojorquez Nitrite Ql (U) Negative Normal NEGATIVE [facility] Comment on above: Performed By: #### Sandoval URIBE UMICRO #### [facility] [address] [place] [address] Dr. Yaritza Bojorquez pH (U) 6.5 [pH] Normal 5-9 [facility] Comment on above: Performed By: #### Sandoval URIBE UMICRO #### [facility] [address] [place] [address] Dr. Yaritza Bojorquez Protein (U) [Mass/Vol] 100 mg/dL Abnormal NEGAT TORSTEN/ TRACE [facility] Comment on above: Performed By: #### Sandoval URIBE UMICRO #### [facility] [address] [place] [address] Dr. Yaritza Bojorquez SPEC GRAVITY 1.025 Normal 1.005-<=1. 025 [facility] Comment on above: Performed By: #### Sandovla URIBE UMICRO #### [facility] [address] [place] [address] Dr. Yaritza Bojorquez UR MICRO IND INDICATED Normal [facility] Comment on above: Performed By: #### Sandoval URIBE UMICRO #### [facility] [address] [place] [address] Dr. Yaritza Bojorquez Urobilinogen Qn (U) 4 {Emir'U}/dL Abnormal 0.2 - 1.0 [facility] Comment on above: Performed By: #### E JOJOTAYLA #### [facility] [address] [address] [address] Yaritza Bojorquez PROF 14(COMP METB)on 022 Albumin [Mass/Vol] 4.5 g/dL Normal 3.4-5.0 [facility] Comment on above: Performed By: #### C MP #### [facility] [address] [place] [address] Dr. Yaritza Bojorquez Albumin/Globulin [Mass ratio] 1.2 {ratio} Normal [facility] Comment on above: Performed By: #### C MP #### [facility] [address] [place] [address] Dr. Yaritza Bojorquez ALP [Catalytic activity/Vol] 48 U/L Normal 46-116 [facility] Comment on above: Performed By: #### C MP #### [facility] [address] [place] [address] Dr. Yaritza Bojorquez ALT [Catalytic activity/Vol] 25 U/L Normal 14-59 [facility] Comment on above: Performed By: #### C MP #### [facility] [address] [place] [address] Dr. Yaritza Bojorquez Anion gap [Moles/Vol] 17.8 mmol/L Normal [facility] Comment on above: Performed By: #### C MP #### [facility] [address] [place] [address] Dr. Yaritza Bojorquez AST [Catalytic activity/Vol] 11 U/L Critically low 15-37 [facility] Comment on above: Performed By: #### C MP #### [facility] [address] [place] [address] Dr. Yaritza Bojorquez Bilirubin [Mass/Vol] 1.4 mg/dL Critically high 0.2-1.0 [facility] Comment on above: Performed By: #### C MP #### [facility] [address] [place] [address] Dr. Yaritza Bojorquez Calcium [Mass/Vol] 9.3 mg/dL Normal 8.5-10.1 [facility] Comment on above: Performed By: #### C MP #### [facility] [address] [address] [address] Yaritza Bojorquez Chloride [Moles/Vol] 98 mmol/L Normal 98-107 [facility] Comment on above: Performed By: #### C MP #### [facility] [address] [address] [address] Yaritza Bojorquez CO2 [Moles/Vol] 19.1 mmol/L Critically low 21.0-32.0 [facility] Comment on above: Performed By: #### C MP #### [facility] [address] [address] [address] Yaritza Bojorquez Creatinine [Mass/Vol] 0.95 mg/dL Normal 0.55-1.02 [facility] Comment on above: Performed By: #### C MP #### [facility] [address] [address] [address] Yaritza Bojorquez EGFR-AF BELARUSIAN >60 Normal >=60 [facility] Comment on above: Performed By: #### C MP #### [facility] [address] [address] [address] Yaritza Bojorquez EGFR-NON AF BELARUSIAN >60 Normal >=60 [facility] Comment on above: Performed By: #### C MP #### [facility] [address] [address] [address] Yaritza Bojorquez Globulin (S) [Mass/Vol] 3.6 g/dL Normal [facility] Comment on above: Performed By: #### C MP #### [facility] [address] [address] [address] Yaritza Bojorquez Glucose [Mass/Vol] 138 mg/dL Critically high 74-[address] [facility] Comment on above: Performed By: #### C MP #### [facility] [address] [address] [address] Yaritza Bojorquez Potassium [Moles/Vol] 2.9 mmol/L Critically low 3.5-5.1 [facility] Comment on above: Performed By: #### C MP #### [facility] [address] [place] [address] Dr. Yaritza Bojorquez Protein [Mass/Vol] 8.1 g/dL Normal 6.4-8.2 [facility] Comment on above: Performed By: #### C MP #### [facility] [address] [place] [address] Dr. Yaritza Bojorquez Sodium [Moles/Vol] 132 mmol/L Critically low 136-145 [facility] Comment on above: Performed By: #### C MP #### [facility] [address] [place] [address] Dr. Yaritza Bojorquez Urea nitrogen [Mass/Vol] 8.0 mg/dL Normal 7.0-18.0 [facility] Comment on above: Performed By: #### C MP #### [facility] [address] [place] [address] Dr. Yaritza Bojorquez Urea nitrogen/Creatinine [Mass ratio] 8.4 mg/mg Normal [facility] Comment on above: Performed By: #### C MP #### [facility] [address] [place] [address] Dr. Yaritza Bojorquez URINE MICROSCOPIC ONLYon BACTERIA MODERATE Abnormal NONE SEEN [facility] Comment on above: Performed By: #### BABAK MAERO #### [facility] [address] [place] [address] Dr. Yaritza Bojorquez Bacteria identified Cx Nom (U) INDICATED Normal [facility] Comment on above: Performed By: #### Sandoval URIBE UMICRO #### [facility] [address] [place] [address] Dr. Yaritza Bojorquez CAST NONE SEEN Normal NONE SEEN [facility] Comment on above: Performed By: #### Sandoval URIBE UMICRO #### [facility] [address] [place] [address] Dr. Yaritza Bojorquez Crystals LM Nom (Urine sed) NONE SEEN Normal NONE SEEN [facility] Comment on above: Performed By: #### Sandoval URIBE UMICRO #### [facility] [address] [place] [address] Dr. Yaritza Bojorquez Epithelial cells LM Ql (Urine sed) MANY Abnormal NONE SEEN /RARE [facility] Comment on above: Performed By: #### E RUR, UMICRO #### [facility] [address] [address] [address] Yaritza Bojorquez MUCOUS SMALL Abnormal NONE SEEN [facility] Comment on above: Performed By: #### E RUR, UMICRO #### [facility] [address] [address] [address] Yaritza Bojorquez RBC 2-5 Abnormal 0-2 [facility] Comment on above: Performed By: #### E RUR, UMICRO #### [facility] [address] [address] [address] Yaritza Bojorquez WBC 5-10 Abnormal NONE SEEN [facility] Comment on above: Performed By: #### E RUR, UMICRO #### [facility] [address] [address] [address] Yaritza Bojorquez XR ABD FLAT UP_PA [...] MACK SAMUELS Date: 2022-03-03 07:46 Normal [facility] Covid-19 PCR (CVDTBH)on 07-29 SARS-CoV-2 (COVID-19) RNA KOLE+probe Ql (Unsp spec) Not detected Normal NOT DETECTED [facility] Comment on above: Result Comment: This test is not yet approved or cleared by the [place] FDA. When there are no FDA-approved or cleared tests available, and other criteria are met, FDA can make tests available under an emergency access mechanism called an Emergency Use Authorization (EUA). The EUA for this test is supported by the [place] of Health and Human Service's (HHS's) declaration [...] consistent with SARS-CoV-2. Performed By: #### C [facility] #### [facility] [address] [place] [address] Dr. 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 INSPECTOR: Is : no(1) Is : no(1) RESULTS/VITAL SIGNS VITAL SIGNS: T PRBP SpO2O2(LPM) %FiO2 Method 22-Jun-2019 18:54:[id number] 99 room air, no respiratory support 22-Jun-2019 18:07:[id number] 97 room air, no respiratory support MEDICAL [...] - Final Verification: completed Procedure performed by: wv Assistant Golf Coach(s): none Findings: grossly normal anatomy Specimen: no [...] From Triage - ED 22-Jun-2019 18:07 Normal [facility] Risk Screen - Adult Emergenc yon 06-22-2019 Risk Screen - Adult Emergency Preferred Language: Preferred Language: Preferred Language for Discussing Health Care (patient/designee)Indonesian Advanced Directives: Advance Directive/DNRno Family Violence Adult: [...] injured patient at a Trauma Center ([facility]/[place]): yes C: Have you ever felt you needed to Cut down on your drinking: no A: Have people Annoyed you by criticizing your drinking: no G: Have you ever felt Guilty about drinking: no E: Have you ever felt you needed a drink 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 The airway is open and patent. Breathing spontaneous and unlabored with clear breath sounds bilaterally. Circulation is normal with good peripheral pulses. Skin is warm and dry and color is normal for race. Past Medical History: Past Medical History Reviewedyes Electronic Signatures: Nitin Singer (AYALA) (Signed 22-Jun-2019 18:40) Authored: Triage Mehdi Chnaey (RN) (Signed 22-Jun-2019 18:10) Authored: Triage, Past Medical History Last Updated: 22-Jun-2019 18:40 by Nitin Singer (AYALA) Normal [facility] Vital Signs Date Time Vital Sign Value Performing Clinician Facility 05-15-2025 10:03-0400 Body mass index (BMI) [Ratio] 36.08 kg/m2 Deyanira Mccloud PA Work Phone: [facility] 05-15-2025 10:03-0400 Body weight 98.34 kg Deyanira Mccloud PA Work Phone: [facility] 05-15-2025 10:03-0400 Diastolic blood pressure 78 mm[Hg] Deyanira Mccloud PA Work Phone: [facility] 05-15-2025 10:03-0400 Systolic blood pressure 140 mm[Hg] Deyanira Mccloud PA Work Phone: [facility] 04-30-2025 15:05-0400 Body mass index (BMI) [Ratio] 35.01 kg/m2 Jaspreet Angie DO Work Phone: [facility] 04-30-2025 15:05-0400 Body weight 95.44 kg Jaspreet Angie DO Work Phone: [facility] 04-30-2025 15:05-0400 Diastolic blood pressure 70 mm[Hg] Jaspreet Angie DO Work Phone: [facility] 04-30-2025 15:05-0400 Systolic blood pressure 120 mm[Hg] Jaspreet Angie DO Work Phone: [facility] 04-17-2025 10:41-0400 Body mass index (BMI) [Ratio] 33.91 kg/m2 Deyanira Mccloud PA Work Phone: [facility] 04-17-2025 10:41-0400 Body weight 92.44 kg Deyanira Mccloud PA Work Phone: [facility] 04-17-2025 10:41-0400 Diastolic blood pressure 86 mm[Hg] Deyanira Mccloud PA Work Phone: [facility] 04-17-2025 10:41-0400 Systolic blood pressure 134 mm[Hg] Deyanira Mccloud PA Work Phone: [facility] 04-03-2025 10:50-0400 Body mass index (BMI) [Ratio] 33.35 kg/m2 Jaspreet Angie DO Work Phone: [facility] 04-03-2025 10:50-0400 Body weight 90.9 kg Jaspreet Angie DO Work Phone: [facility] 04-03-2025 10:50-0400 Diastolic blood pressure 72 mm[Hg] Jaspreet Angie DO Work Phone: [facility] 04-03-2025 10:50-0400 Systolic blood pressure 130 mm[Hg] Jaspreet Angie DO Work Phone: [facility] 03-05-2025 11:16-0400 Body mass index (BMI) [Ratio] 31.62 kg/m2 Jaspreet Angie DO Work Phone: [facility] 03-05-2025 11:16-0400 Body weight 86.18 kg Jaspreet Angie DO Work Phone: [facility] 03-05-2025 11:16-0400 Diastolic blood pressure 78 mm[Hg] Jaspreet Angie DO Work Phone: [facility] 03-05-2025 11:16-0400 Systolic blood pressure 128 mm[Hg] Jaspreet Angie DO Work Phone: [facility] 01-29-2025 10:57-0400 Body mass index (BMI) [Ratio] 31.53 kg/m2 Willy Mirandaerly MAINTENANCE AND CUSTODIAN SUPERVISOR Work Phone: [facility] 01-29-2025 10:57-0400 Body weight 85.96 kg Willy Mirandaerly MAINTENANCE AND CUSTODIAN SUPERVISOR Work Phone: [facility] 01-29-2025 10:57-0400 Diastolic blood pressure 80 mm[Hg] Willy Mirandaerly MAINTENANCE AND CUSTODIAN SUPERVISOR Work Phone: [facility] 01-29-2025 10:57-0400 Systolic blood pressure 136 mm[Hg] Willy Mirandaerly MAINTENANCE AND CUSTODIAN SUPERVISOR Work Phone: [facility] 01-24-2025 11:42-0400 Diastolic blood pressure 70 mm[Hg] Noms Nurse [facility] 01-24-2025 11:42-0400 Systolic blood pressure 142 mm[Hg] Nom Nurse [facility] 01-24-2025 11:21-0400 Body mass index (BMI) [Ratio] 32.01 kg/m2 Nom Nurse [facility] 01-24-2025 11:21-0400 Body weight 87.26 kg Nom Nurse [facility] 12-23-2024 13:51-0400 Body mass index (BMI) [Ratio] 31.35 kg/m2 Jaspreet Angie DO Work Phone: [facility] 12-23-2024 13:51-0400 Body weight 85.46 kg Jaspreet Angie DO Work Phone: [facility] 12-23-2024 13:51-0400 Diastolic blood pressure 78 mm[Hg] Jaspreet Angie DO Work Phone: [facility] 12-23-2024 13:51-0400 Systolic blood pressure 118 mm[Hg] Jaspreet Angie DO Work Phone: [facility] 08-11-2023 22:07-0500 Diastolic blood pressure 64 mm[Hg] PHYSICIAN NO [facility] 08-11-2023 22:07-0500 Heart rate 71 /min PHYSICIAN NO [facility] 08-11-2023 22:07-0500 Respiratory rate 18 /min PHYSICIAN NO [facility] 08-11-2023 22:07-0500 SaO2% (BldA) [Mass fraction] 99 % PHYSICIAN NO [facility] 08-11-2023 22:07-0500 Systolic blood pressure 126 mm[Hg] PHYSICIAN NO [facility] 08-11-2023 19:17-0500 Body height 170.18 cm PHYSICIAN NO [facility] 08-11-2023 19:17-0500 Body weight 80.73 kg PHYSICIAN NO [facility] Encounters Encounter Date Encounter Type [...] on above: 33 weeks gestation o f ([facility]); Third trimester ([facility]); Gestational diabetes mellitus (GDM), antepartum, gestational diabetes method of control unspecified ([facility]) Start: 04-30-2025 End: 04-30-2025 Office outpatient visit 15 minutes Jaspreet Angie DO Work Phone: [facility] Comment on above: 31 weeks gestation o f ([facility]); Third trimester ([facility]); Gestational diabetes mellitus (GDM), antepartum, gestational diabetes method of control unspecified ([facility]) Start: 04-30-2025 End: 04-30-2025 ambulatory JASPREET [...] incons istent with dates in second trimester ([facility]) (Primary Dx); Third trimester ([facility]); 29 weeks gestation of ([facility]) Start: 04-03-2025 End: 04-03-2025 Bamboo flowsheet Jaspreet Angie DO Work Phone: [facility] Start: 04-03-2025 End: 04-03-2025 Bamboo flowsheet Jaspreet Angie DO Work Phone: [facility] Start: 04-03-2025 End: 04-03-2025 ambulatory JASPREET ANGIE Not Available Start: 04-03-2025 End: 04-03-2025 Office outpatient visit 15 minutes Jaspreet Angie DO Work Phone: [facility] Comment on above: Second trimester pre gnancy ([facility]); 27 weeks gestation of ([facility]) Start: 03-28-2025 End: 03-28-2025 Chart abstracting Scanning Provider External [facility] Start: 03-21-2025 End: 03-21-2025 [...] pre gnancy ([facility]); 23 weeks gestation of ([facility]); Diabetes mellitus screening; Well woman exam with [...] 01-29-2025 End: 01-29-2025 Bamboo flowsheet Willy Avila MAINTENANCE AND CUSTODIAN SUPERVISOR Work Phone: [facility] Start: 01-29-2025 End: 01-30-2025 Bamboo flowsheet Willy Avila MAINTENANCE AND CUSTODIAN SUPERVISOR Work Phone: [facility] Start: 01-29-2025 End: 01-30-2025 External Result Encounter Willy Avila MAINTENANCE AND CUSTODIAN SUPERVISOR Work Phone: [facility] External Department Unsolicited Start: 01-29-2025 End: 01-29-2025 ambulatory WILLY AUSTIN Not Available Start: 01-29-2025 End: 01-29-2025 Office outpatient visit 15 minutes Willy Avila MAINTENANCE AND CUSTODIAN SUPERVISOR Work Phone: [facility] Comment on above: Second trimester pre gnancy; 18 weeks gestation of Start: 01-24-2025 End: 01-24-2025 Office outpatient visit 5 minutes [facility] Angie Nurse [facility] Comment on above: GA: 17w3d Start: 01-24-2025 End: 01-24-2025 ambulatory JASPREET ANGIE Not Available Start: 01-06-2025 End: 01-06-2025 ambulatory Cristal Miguel Facility:[facility] Start: 01-06-2025 End: 01-06-2025 Departed Referred Cristal Miguel DO Work Phone: [facility] Start: 12-23-2024 End: 12-23-2024 Bamboo flowsheet [...] Emergency department patient visit PHYSICIAN SASKIA HERR [facility] Work Phone: Start: 03-03-2022 End: 03-03-[address] DOCTOR BARBOZA Facility:[facility] Start: 08-23-2021 End: 08-23-2021 ambulatory ADEOLA COHEN Facility:[facility] Procedures Date Procedure Procedure Detail Performing Clinician Start: 05-26-2025 US OB BPP W NON-STRESS Jaspreet Angie DO Work Phone: Start: 05-20-2025 US AMNIOTIC FLUID VOLUME Jaspreet Angie DO Work Phone: Start: 05-19-2025 US OB BPP W NON-STRESS Jasprete Angie DO Work Phone: Start: 05-15-2025 Urnls dip stick/tabl et rgnt non-auto w/o micrscp Deyanira [place] PA Work Phone: Start: 04-30-2025 Urnls dip [...] URINARY TRACT INFECT ION (HTRX) Willy Avila MAINTENANCE AND CUSTODIAN SUPERVISOR Work Phone: Start: 01-29-2025 Urnls dip stick/tabl et rgnt non-auto w/o micrscp Willy Avila MAINTENANCE AND CUSTODIAN SUPERVISOR Work Phone: Start: 01-24-2025 Urnls dip stick/tabl [...] EDT Routine [facility] [address] [place] [address] Willy Avila, MAINTENANCE AND CUSTODIAN SUPERVISOR [address] [place] [id number] [facility] Start: 04-30-2025 End: 10-28-2025 US biophysical profile w non stress test US biophysical profile w non stress test Imaging Routine Gestational diabetes mellitus (GDM), antepartum, gestational diabetes method of control unspecified ([facility]) Expected: 04/30/2025 (Approximate), Expires: 10/28/2025 [facility] Work Phone: Comment on above: Expected: 04/30/2025 (Approximate), Expires: 10/28/2025 Start: 04-28-2025 Influenza vaccination Influenza Vacc ine [facility] Start: 04-17-2025 End: 08-17-2025 US for US OB follow up transabdominal approach Imaging Routine Size of fetus inconsistent with dates in second trimester ([facility]) Expected: 04/17/2025, Expires: 08/17/2025 [facility] Work Phone: Comment on above: Expected: 04/17/2025 , Expires: 08/17/2025 Start: 04-17-2025 End: 04-17-2025 Patient encounter procedure 04/17/2025 9:50 AM EDT Routine [facility] [address] [place] [phone] Deyanira Mccloud PA [address] [place], [place] [id number] [facility] Start: 04-03-2025 End: 04-03-2025 ambulatory 04/03/2025 1:30 PM EDT Support Visit [facility] [address] [place] [address] Rimma Richey, RN [address] [address] Nikky Gonzalez, BLADE BrianConsuelo, [place] [address] [place] [address] [facility] Start: 04-03-2025 End: 04-03-2025 Patient encounter procedure 04/03/2025 10:40 AM EDT Routine [facility] [address] [place] [address] Jaspreet Adams DO [address] [place] [address] [facility] Start: 03-19-2025 End: 03-19-2025 Professional / ancillary services management 03/19/2025 9:30 AM EDT Ancillary Procedure [facility] [address] [place] [address] [facility] Start: 03-05-2025 End: 03-05-2026 [...] Routine [facility] [address] [place] [address] Jaspreet Adams, DO [address] [place] [address] Arrived [facility] Comment on above: Arrived Start: 02-27-2025 End: 02-27-2025 Patient encounter procedure 02/27/2025 8:50 AM EDT Routine [facility] [address] [place] [address] Jaspreet Adams, DO [address] [place] [address] [facility] Start: 02-12-2025 End: 02-12-2025 Clinical Support 02/12/2025 9:00 AM EDT Clinical Support [facility] [address] [place] [phone] [facility] Start: 01-29-2025 End: 01-29-2025 Patient encounter procedure 01/29/2025 10:20 AM EDT Routine [facility] [address] [place] [place] [address] Willy Avila, MAINTENANCE AND CUSTODIAN SUPERVISOR [address] [place] [phone] [facility] Start: 01-24-2025 End: 01-24-2026 ABO/Rh ABO/Rh Lab Routine Missed menses , unspecified gestational age Expected: 01/24/2025 (Approximate), Expires: 01/24/2026 [facility] Comment on above: Expected: 01/24/2025 (Approximate), Expires: 01/24/2026 Start: 01-24-2025 End: 03-26-2025 Alpha fetoprotein, maternal Alpha fetoprotein, maternal Lab Routine Encounter for supervision of normal first in first trimester Expected: 01/24/2025 (Approximate), Expires: 03/26/2025 [facility] Comment on above: Expected: 01/24/2025 (Approximate), Expires: 03/26/2025 Start: 01-24-2025 End: 01-24-2026 Blood type and Indirect antibody screen panel - Blood Type and screen Lab Routine Missed menses , unspecified gestational age Expected: 01/24/2025 (Approximate), Expires: 01/24/2026 [facility] Work Phone: Comment on above: Expected: 01/24/2025 (Approximate), Expires: 01/24/2026 Start: 01-24-2025 End: 01-24-2026 Drugs of abuse panel - Urine by Screen method Rapid drug screen, urine Lab Routine , unspecified gestational age Encounter for supervision of normal first in first trimester Expected: 01/24/2025 (Approximate), Expires: 01/24/2026 [facility] Comment on above: Expected: 01/24/2025 (Approximate), Expires: 01/24/2026 Start: 01-10-2025 End: 01-10-2025 ambulatory 01/10/2025 9:30 AM EDT Initial [facility] [address] [place] [address] [facility] Start: 01-10-2025 End: 01-10-2025 Professional / ancillary services management 01/10/2025 9:00 AM EDT Ancillary Procedure [facility] [address] [place] [address] [facility] Start: 01-06-2025 Bacteria identified in Urine by Culture Urine Culture [facility] Start: 01-06-2025 Urine culture [facility] Start: 2018 Screening for malign ant neoplasm of cervix Pap Smear [facility] Start: 2016 DTaP,Tdap and Td Vaccines (1 - Tdap) DTaP,Tdap and Td Vaccines (1 - Tdap) [facility] Start: 12-07-2015 Adult BMI Screening Adult BMI Screen ing [facility] Start: 2009 Depression Screening Depression Scre ening [facility] Start: 2009 Tobacco Screening Tobacco Screening [facility] Bacteria identified in Urine by Culture Urine culture Microbiology Routine Missed menses Ordered: 01/24/[address] [facility] Comment on above: Ordered: 01/24/2025 Bacteria identified in Urine by Culture Urine culture Microbiology Routine Second trimester Ordered: 01/29/20[address] [facility] Work Phone: Comment on above: Ordered: 01/29/2025 CBC W Auto Different ial panel - Blood CBC and differential Lab Routine Missed menses , unspecified gestational age Ordered: 01/24/2025 [facility] Comment on above: Ordered: 01/24/2025 Cytology Cervical or vaginal smear or scraping study Pap Smear Pathology and Cytology Routine Well woman exam with routine gynecological exam Ordered: 03/05/2025 [facility] Work Phone: Comment on above: Ordered: 03/05/2025 Hemoglobin A1c/Hemoglobin.total in Blood Hemoglobin A1c Lab Routine Missed menses , unspecified gestational age Ordered: 01/24/2025 [facility] Comment on above: Ordered: 01/24/2025 Hepatitis B virus surface Ag [Presence] in Serum or Plasma by Immunoassay Hepatitis B surface antigen Lab Routine Missed menses , unspecified gestational age Ordered: 01/24/2025 [facility] Comment on above: Ordered: 01/24/2025 Hepatitis C virus Ab [Presence] in Serum or Plasma by Immunoassay Hepatitis C antibody Lab Routine Missed menses , unspecified gestational age Ordered: 01/24/2025 [facility] Comment on above: Ordered: 01/24/2025 HIV-1/HIV-2 antigen/antibody combination immunoassay HIV-1 and HIV-2 antibodies Lab Routine Missed menses , unspecified gestational age Ordered: 01/24/2025 [facility] Comment on above: Ordered: 01/24/2025 Patient Education Head injury in adults Blunt Abdominal Trauma ED Blunt Chest Trauma ED [facility] Work Phone: Patient referral [facility] Work Phone: Reagin Ab [Presence] in Serum by RPR RPR Lab Routine Missed menses , unspecified gestational age Ordered: 01/24/2025 [facility] Comment on above: Ordered: 01/24/2025 Rubella antibody, IgG Rubella an tibody, IgG Lab Routine Missed menses , unspecified gestational age Ordered: 01/24/2025 [facility] Comment on above: Ordered: 01/24/2025 Immunizations Immunization Date Immunization Notes Care Provider Rosaline [facility] 08-11-2023 tetanus toxoid, redu christie diphtheria toxoid, and acellular pertussis vaccine, adsorbed PHYSICIAN NO [facility] Payers Date Payer Category Payer Private Health Insurance [facility] [id number] 2025 Self-pay [id number] 2024 Medicaid [id number] 2024 Medicaid [id number] 1997 Unknown [id number] 2.16.840.1.190784.3.579.2. 593 1997 Unknown [id number] 2.16.840.1.607874.3.579.2. 593 1997 Unknown [id number] 2.16.840.1.420989.3.579.2. 1259 1997 Unknown [id number] 2.16.840.1.244567.3.579.2. 1258 1997 Unknown [id number] 2.16.840.1.637827.3.579.2. 9 1997 Unknown [id number] 2.16.840.1.772497.3.579.2. 1258 1997 Unknown [id number] 2.16.840.1.791540.3.579.2. 9 1997 Unknown [id number] 2.16.840.1.185595.3.579.2. 9 1997 Unknown [id number] 2.16.840.1.239547.3.579.2. 9 1997 Unknown [id number] 2.16.840.1.065646.3.579.2. 9 1997 Unknown [id number] 2.16.840.1.078829.3.579.2. 1259 1997 Unknown [id number] 2.16.840.1.636430.3.579.2. 1258 1997 Unknown [id number] 2.16.840.1.547187.3.579.2. 9 1997 Unknown [id number] 2.16.840.1.200824.3.579.2. 9 1959 Unknown [id number] Unknown Regular Auto/Liability [id number] Unknown HCAP/HFA/FAP Active [id number] Unknown [id number] 2.16.840.1.103751.3.579.2. 531 Unknown Regular Auto/Liability 23-47 [id number] Unknown HCAP/HFA/FAP Active [id number] Social History Date Type Detail Facility Start: 08-11-2023 End: 08-11-2023 Tobacco smoking status NHIS Never smoked tobacco (finding) [facility] Start: 1995 Sex Assigned At Female F [facility] Start: 12-22-2024 Gender identity Identifies as female gender (finding) [facility] Sexual orientation Not on file [facility] Start: 01-07-2025 End: 03-26-2025 Sex Female (finding) [facility] Start: 10-08-2024 [facility] Start: 1997 Sex assigned at Not on file [email or web address] [facility] Medical Equipment Procedure Code Equipment Code Equipment Origin al Text Equipment Identifier Dates 1 strip by In Vi tro route Daily Use in the morning prior to breakfast, 1 hour after each meal for a total of 4times daily. [id number] Start: 03-24-2025 End: 04-23-2025 1 each by In Vit ro route Daily Use to check FSBS four times daily [id number] Start: 03-24-2025 End: 04-23-2025 Clinical Notes 12-23-2024 [...] to check FSBS. Blood Glucose Monitoring Suppl ([employer] Glucometer) w/Device kit 1 kit, Does not [...] PLAN ICD-10-CM 1. 33 weeks gestation of ([facility]) Z3A.33 POCT urinalysis dipstick manually resulted 2. Third trimester ([facility]) Z34.93 POCT urinalysis dipstick manually resulted 3. Gestational diabetes mellitus (GDM), antepartum, gestational diabetes method of control unspecified ([facility]) O24.419 Return OB: Patient presents today [...] of: SENDY Fan documented in this encounter [facility] 04-30-2025 History of Present illness Narrative Reason [...] nursing note reviewed. Exam conducted with a field kiln burner present. Vitals: Estimated body mass index is 35.01 kg/m as calculated from the following: Height as of 12/01/20: 5' 5 . Weight as of this encounter: 210 lb 6.4 oz. BP: 120/70 Patient's last menstrual period was 10/04/2024 (approximate). ASSESSMENT & PLAN ICD-10-CM 1. 31 weeks gestation of ([facility]) Z3A.31 POCT urinalysis dipstick manually resulted 2. Third trimester ([facility]) Z34.93 POCT urinalysis dipstick manually resulted 3. Gestational diabetes mellitus (GDM), antepartum, gestational diabetes method of control unspecified ([facility]) O24.419 US biophysical profile w non stress [...] Jaspreet Adams DO documented in this encounter [facility] 04-17-2025 History of Present illness Narrative Reason for Appointment: Patient ID: Chente Gonzalez is a 29 y.o. female who presents for No chief complaint on file. Patient presents today for Return OB appointment. MEDICATIONS Current Outpatient Medications Medication Instructions Alcohol Swabs (Alcohol Prep Pad) 70 % pads 1 Pad, Topical, Daily, Use four times daily to check FSBS. Blood Glucose Monitoring Suppl ([employer] Glucometer) w/Device kit 1 kit, Does not [...] ASSESSMENT & PLAN ICD-10-CM 1. Third trimester ([facility]) Z34.93 POCT urinalysis dipstick manually resulted 2. 29 weeks gestation of ([facility]) Z3A.29 POCT urinalysis dipstick manually resulted [...] of: SENDY Fan documented in this encounter [facility] 04-03-2025 History of Present illness Narrative Reason for Appointment: Patient ID: Chente Gonzalez is a 29 y.o. female who presents for Routine Visit Patient presents today for Return OB appointment. MEDICATIONS Current Outpatient Medications Medication Instructions Alcohol Swabs (Alcohol Prep Pad) 70 % pads 1 Pad, Topical, Daily, Use four times daily to check FSBS. Blood Glucose Monitoring Suppl (Trovit Glucometer) w/Device kit 1 kit, Does not [...] nursing note reviewed. Exam conducted with a field kiln burner present. Vitals: Estimated body mass index is 33.35 kg/m as calculated from the following: Height as of 12/01/20: 5' 5 . Weight as of this encounter: 200 lb 6.4 oz. BP: 130/72 Patient's last menstrual period was 10/04/2024 (approximate). ASSESSMENT & PLAN ICD-10-CM 1. Second trimester ([facility]) Z34.92 Urine dip 2. 27 weeks gestation of ([facility]) Z3A.27 Urine dip Patient presents today for a routine obstetrics appointment. Patient is currently 27w2d with a Estimated Date of Delivery: 07/01/25. Patient brought in FSBS logs for review and patient still desires to hold off on [facility] referral at this time, referral was previously sent on 03/24/25 and when contacted by [facility] patient will inform them that she will postpone scheduling at this time. Patient to return to clinic in 2 weeks for routine OB appointment. Documented by Nissa Matt LPN on behalf of: Jaspreet Adams DO documented in this encounter [facility] 03-05-2025 History of Present illness Narrative Reason [...] nursing note reviewed. Exam conducted with a field kiln burner present. Vitals: Estimated body mass index is 31.62 kg/m as calculated from the following: Height as of 21: 5' 5 . Weight as of this encounter: 190 lb. BP: 128/78 Patient's last menstrual period was 10/04/2024 (approximate). ASSESSMENT & PLAN ICD-10-CM 1. Second trimester ([facility]) Z34.92 POCT urinalysis dipstick manually resulted 2. 23 weeks gestation of ([facility]) Z3A.23 3. Diabetes mellitus screening Z13.1 [...] Jaspreet Adams DO documented in this encounter [facility] 01-29-2025 History of Present illness Narrative Reason [...] nursing note reviewed. Exam conducted with a field kiln burner present. Vitals: Estimated body mass index is [...] Willy Avila NP documented in this encounter [facility] 01-24-2025 History of Present illness Narrative Reason [...] or undercooked meat, and stay away from [facility]. Patient has also been advised to [...] Kalyn Jacob MA documented in this encounter [facility] 12-23-2024 History of Present illness Narrative Reason [...] nursing note reviewed. Exam conducted with a field kiln burner present. Vitals: Estimated body mass index is [...] Jaspreet Adams DO documented in this encounter [facility] Evaluation note No assessment inform ation available [facility] Work Phone: Evaluation note Diagnosis [...] encounter [facility]ructionsNot on filedocumented in [facility] Purpose Family History Relationship Condition [...] section and content) DATE CREATED AUTHOR [facility] DATE CREATED AUTHOR AUTHOR'S ORGANIZ ATION 06/07/2022 [facility] DATE CREATED AUTHOR AUTHOR'S ORGANIZ ATION 01/09/2025 [facility] DATE CREATED AUTHOR AUTHOR'S ORGANIZ ATION 05/16/2025 [facility] EPIC Care Teams (unrecognized [...] BE BASED ON THE PRIMARY CLINICAL RECORDS. [facility] [employer] [facility]. provides no warranty or guarantee of the accuracy or completeness of information in this document.
--- OUTSIDE RECORDS SUMMARY | 2025-06-02 19:51 | XMS_ITS | Encounter Summary ---
Author Organization [facility] Address [address] [place] [address] Care Team Providers Care Forensic Pathologist Name Role Phone Unavailable Primary Care Provider Unavailabl e Encounter Details Date Type Department Care Team (Late st Contact Info) Description 03/05/2025 Abstract [facility] [address] [address] Kalyn Jacob MA Social History Tobacco [...] EDT Routine [facility] [address] [address] Jaspreet Adams DO [address] [place], [place] [id number] documented as of this encounter Visit Diagnoses Not on filedocumented in this encounter
== END 2025-06-02 19:49 | disposition home or self-care (01) ==
LOC: LAB 19:48
PROVIDERS: Visit Provider Nurse Practitioner Family
DX: Z34.93 Encounter for supervision of normal pregnancy, unspecified, third trimester (principal)
CPT/HCPCS: 87081

== ENCOUNTER 2025-06-05 14:36 | Emergency (ER) | payer OTHER, SELFPAY ==
--- OUTSIDE RECORDS SUMMARY | 2025-06-05 14:45 | XMS_ITS | CCD ---
Author Organization [facility] Care Team Providers Care Vice President Client Services Name Role Phone ADEOLA COHEN Admitting Unavailable ADEOLA COHEN Attending Unavailable IRMAC, DR BUTLER Primary Care Unavailable ADEOLA COHEN Consulting Unavailable TAMRA, DR BUTLER Primary Care Unavailable ADRIAN CHRISTIANSEN Admitting Unavailable ADRIAN CHRISTIANSEN Attending Unavailable ARVIND, DR MACK Ansari Consulting Unavailable JOSE, DR SHERMAN Consulting Unavailable ADIRAN CHRISTIANSEN Consulting Unavailable NO FAMILY, PHYSICIAN Primary Care Provider Unava ilDO Denny Arreola Emergency Provider Unavailable Primary Care Provider UnavailCristal Swenson Attending Unavailable Cristal Miguel Admitting Unavailable Marker Cristal STANLEY Attending Provider Unavailable Primary Care Provider Unavailabl JASPREET Beltran Attending Unavailable ANGIE, JASPREET Referring Unavailable AUSTINLOLA HODGEA Attending Unavailable AUSTIN, WILLY Referring Unavailable ANGIE, JASPREET Attending Unavailable ANGIE, JASPREET Attending Unavailable JUAN, DEYANIRA Attending Unavailable JUAN, DEYANIRA Referring Unavailable ANGIE, JASPREET Attending Unavailable JUAN DEYANIRA Attending Unavailable AUSTIN, WILLY Attending Unavailable Allergies Allergy Classification Reported Allergen(s) Allergy Type Date of Onset Reaction(s) Facility (1 source) Penicillins Drug allergy (disorder) 09-28-2014 [facility] Repository (20 sources) Penicillins Drug Allergy 12-23-2024 [facility] Healthcare (1 source) Penicillins Drug allergy (disorder) 02-22-2022 [facility] Repository (2 sources) Penicillin G Drug Allergy 06-02-2025 Unknown [facility] Healthcare Medications Current Medications Medication Drug Class(es) Dates Sig (Normalized) Sig (Original) Blood Glucose Monitoring Suppl (D-Care Glucometer) w/Device kit (17 sources) Start: 03-24-2025 End: 03-24-2026 Blood Glucose Monitoring Suppl (D-Care Glucometer) w/Device kit Indications: Gestational diabetes mellitus (GDM), antepartum, gestational diabetes method of control unspecified ([facility]) , Elevated glucose tolerance test 1 kit Daily Use four times daily to check FSBS. In the morning prior to breakfast & 1 hour after each meal for a total of 4times daily. 1 kit 03/24/2025 03/24/2026 Active doxylamine succinate 25 mg oral tablet (20 sources) Start: 03-05-2025 End: 04-04-2025 doxylamine (Unisom) 25 MG tablet Indications: Other insomnia Take 1 tablet (25 mg) by mouth as needed at bedtime for sleep 30 tablet 03/05/2025 Active isopropyl alcohol 0.7 ml/ml medicated pad (17 sources) Start: 03-24-2025 Alcohol Swabs (Alcohol Prep Pad) 70 % pads Indications: Gestational diabetes mellitus (GDM), antepartum, gestational diabetes method of control unspecified ([facility]) , Elevated glucose tolerance test Apply 1 [...] 25 mg supposito ry Discontinued 25 MG VA Q6H as needed for nausea and vomiting [...] Drug Class(es) Dates Sig (Normalized) Sig (Original) [id number] 200 actuat albuterol 0.09 mg/actuat metered dose [...] D2) 1,250 mcg (50,000 unit) Capsule Discontinued 99227 UNIT PO every week 4 December 27, [...] & bedtime 1200 30 August 08, 2020 1:00am March 08, 2021 [...] 08-11-2023 Episodic Other and delivery including normal (16 sources) ; Translations: [Encounter for supervision of [...] [33 weeks gestation of ] 05-15-2025 Episodic Residual codes; unclassified (2 sources) Gestation period, 35 weeks; Translations: [35 weeks gestation of ] 06-02-2025 Episodic Sprains and strains (2 sources) Strain [...] Range Facility OB BPP W NON-STRESS on 06-02-2025 [place] [address] Ultrasound Report Signed Patient: CHENTE GONZALEZ MR#: [id number] : 1995 Acct:[id number] Age/Sex: 29 / F ADM Date: 06/02/25 Loc: [facility] 250-[address]: Jaspreet Adams D.O. Ordering Physician: Jaspreet Adams D.O. Date of Service: 06/02/25 Procedure(s): US OB BPP w non-stress Accession Number(s): [id number] cc: Jaspreet Adams D.O.; Physician,Non-Staff M.DPeggy The [place] [id number] Patient Name: CHENTE GONZALEZ MRN: [facility]:[id number] date: 1995 Sex: F Assigned Patient Location: [facility] Current Patient Location: [facility] Accession/Order Number: [id number] Exam Date: 06/02/2025 10:22 Report Date: 06/02/2025 10:52 At the request of: JASPREET ADAMS DO Procedure: US OB BPP w non-stress Biophysical profile. Reason for exam: Gestational diabetes COMPARISON: 05/26/2025 TECHNIQUE: Transabdominal imaging of the gravid uterus was obtained. FINDINGS: The auricular detoxification specialist reports a BPP of 8 out of 8. DOYLE is normal at 8.9 cm. heart rate 124 bpm. US/US OB BPP w non-stress IMPRESSION: BPP 8 out of 8. Impression dictated by: Ramana Raza Jr., D.O. 06/02/2025 10:52 AM Dictation Location: [place] [address] Electronically authenticated by: [id number] Y Date: 06/02/2025 10:52 Dictated By: Ramana Raza M.D. Signed By: 06/02/25 1054 DD/ 105 TD/TT: Noise Abatement Engineer: [facility] Radiology, Radiologval vanegas MD - 06/02/2025 [place] [address] Ultrasound Report Signed Patient: CHENTE GONZALEZ MR#: [id number] : 1995 Acct:[id number] Age/Sex: 29 / F ADM Date: 06/02/25 Loc: [place] [address]: Jaspreet Adams D.O. Ordering Physician: Jaspreet Adams D.O. Date of Service: 06/02/25 Procedure(s): US OB BPP w non-stress Accession Number(s): [id number] cc: Jaspreet Adams D.O.; Physician,Non-Staff Alejandra The [place] [address] Patient Name: CHENTE GONZALEZ MRN: [facility]:[id number] date: 1995 Sex: F Assigned Patient Location: [facility] Current Patient Location: [facility] Accession/Order Number: [id number] Exam Date: 06/02/2025 10:22 Report Date: 06/02/2025 10:52 At the request of: JASPREET ADAMS DO Procedure: US OB BPP w non-stress Biophysical profile. Reason for exam: Gestational diabetes COMPARISON: 05/26/2025 TECHNIQUE: Transabdominal imaging of the gravid uterus was obtained. FINDINGS: The auricular detoxification specialist reports a BPP of 8 out of 8. DOYLE is normal at 8.9 cm. heart rate 124 bpm. US/US OB BPP w non-stress IMPRESSION: BPP 8 out of 8. Impression dictated by: Ramana Raza Jr., D.O. 06/02/2025 10:52 AM Dictation Location: [employer] Electronically authenticated by: [id number] Y Date: 06/02/2025 10:52 Dictated By: Ramana Raza M.D. Signed By: 06/02/25 1054 DD/ 105 TD/TT: Noise Abatement Engineer: [facility] Radiology Study observation (narrative) [facility] US OB BPP W NON-STRESS Ordered By: Radiologist Radiology on 06-02-2025 [facility] Work Phone: Urinalysis macro (dipstick) panel (U)on 06-02-2025 Bilirubin, UA Negative Negative - 4(70) +++ mg/dL [facility] Blood, UA Positive Negative - 50 Derick/mcL [facility] Clarity, UA Clear [facility] Color, UA Yellow [facility] Glucose, UA Negative Negative - 2000(110) ++++ mg/dL [facility] Interpretation and review of laboratory results Abnormal [facility] Ketones, UA Negative Negative - 160(16) ++++ mg/dL [facility] Leukocytes, UA 3+ Negative - 500+++ Julio/mcL [facility] Nitrite, UA Negative Negative - Positive [facility] pH, UA 6.5 5 - 9 [facility] Protein, UA Trace Negative - 2000(20) ++++ mg/dL [facility] Spec Grav, UA 1.01 1 - 1.03 [facility] Urobilinogen, UA 2.0 0.2 - 12 mg/dL [facility] US OB BPP W NON-STRESS on 05-26-[address] [address] Ultrasound Report Signed Patient: CHENTE GONZALEZ MR#: [id number] : 1995 Acct:[id number] Age/Sex: 29 / F ADM Date: 05/26/25 Loc: US Attending Dr: Jaspreet Adams D.O. Ordering Physician: Jaspreet Adams D.O. Date of Service: 05/26/25 Procedure(s): US OB BPP w non-stress Accession Number(s): [id number] cc: Jaspreet Adams D.O.; Physician,Non-Staff [place] [id number] Patient Name: CHENTE GONZALEZ MRN: [facility]:[id number] date: 1995 Sex: F Assigned Patient Location: [facility] Current Patient Location: Accession/Order Number: [id number] Exam Date: 05/26/2025 10:05 Report Date: 05/26/2025 [...] Mae M.D. 05/26/2025 11:39 AM Dictation Location: [place] [address] Electronically authenticated by: [id number] Y Date: 05/26/2025 11:39 Dictated By: Rahel Mae M.D. Signed By: 05/26/25 1142 DD/ 1139 TD/TT: Noise Abatement Engineer: [facility] Radiology, Radiologval vanegas MD - 05/26/2025 [place] [address] Ultrasound Report Signed Patient: CHENTE GONZALEZ MR#: [id number] : 1995 Acct:[id number] Age/Sex: 29 / F ADM Date: 05/26/25 Loc: US Attending Dr: Jaspreet Adams D.O. Ordering Physician: Jaspreet Adams D.O. Date of Service: 05/26/25 Procedure(s): US OB BPP w non-stress Accession Number(s): [id number] cc: Jaspreet Adams D.O.; Physician,Non-Staff MRu The [place] [id number] Patient Name: CHENTE GONZALEZ MRN: [facility]:[id number] date: 1995 Sex: F Assigned Patient Location: [facility] Current Patient Location: Accession/Order Number: [id number] Exam Date: 05/26/2025 10:05 Report Date: 05/26/2025 [...] Mae M.D. 05/26/2025 11:39 AM Dictation Location: [place] [address] Electronically authenticated by: [id number] Y Date: 05/26/2025 11:39 Dictated By: Rahel Mae M.D. Signed By: 05/26/25 1142 DD/ 1139 TD/TT: Noise Abatement Engineer: [facility] Radiology Study observation (narrative) [facility] US OB BPP W NON-STRESS Ordered By: Radiologist Radiology on 05-26-2025 [facility] Work Phone: US AMNIOTIC FLUID VOLUMEon 0 05-20-2025 [place] [address] Ultrasound Report Signed Patient: CHENTE GONZALEZ MR#: [id number] : 1995 Acct:[id number] Age/Sex: 29 / F ADM Date: 05/20/25 Loc: [place] [address]- Attending Dr: Jaspreet Adams D.O. Ordering Physician: Jaspreet Adams D.O. Date of Service: 05/20/25 Procedure(s): US OB amniotic fluid vol Accession Number(s): [id number] cc: Jaspreet Adams D.O.; Physician,Non-Staff Alejandra The [place] [id number] Patient Name: CHENTE GONZALEZ MRN: [id number]:[id number] date: 1995 Sex: F Assigned Patient Location: [facility] Current Patient Location: US Accession/Order Number: [id number] Exam Date: 05/20/2025 11:10 Report Date: 05/20/2025 [...] Mae M.D. 05/20/2025 11:33 AM Dictation Location: [place] [address] Electronically authenticated by: [id number] Y Date: 05/20/2025 11:33 Dictated By: Rahel Mae M.D. Signed By: 05/20/25 1136 DD/ 1133 TD/TT: Noise Abatement Engineer: [facility] Radiology, Radiologval vanegas MD - 05/20/2025 [place] [address] Ultrasound Report Signed Patient: CHENTE GONZALEZ MR#: [id number] : 1995 Acct:[id number] Age/Sex: 29 / F ADM Date: 05/20/25 Loc: [place] [address]: Jaspreet Adams D.O. Ordering Physician: Jaspreet Adams D.O. Date of Service: 05/20/25 Procedure(s): US OB amniotic fluid vol Accession Number(s): [id number] cc: Jaspreet Adams D.O.; Physician,Non-Staff Alejandra The [place] [id number] Patient Name: CHENTE GONZALEZ MRN: [facility]:[id number] date: 1995 Sex: F Assigned Patient Location: [facility] Current Patient Location: US Accession/Order Number: [id number] Exam Date: 05/20/2025 11:10 Report Date: 05/20/2025 [...] Mae M.D. 05/20/2025 11:33 AM Dictation Location: [place] [address] Electronically authenticated by: [id number] Y Date: 05/20/2025 11:33 Dictated By: Rahel Mae M.D. Signed By: 05/20/25 1136 DD/ 1133 TD/TT: Noise Abatement Engineer: [facility] Radiology Study observation (narrative) [facility] US AMNIOTIC FLUID VOLUMEOrde red By: Radiologist Radiology on 05-20-2025 [facility] Work Phone: US OB BPP W NON-STRESS on 05-19-2025 [place] [address] Ultrasound Report Signed Patient: CHENTE GONZALEZ MR#: [id number] : 1995 Acct:[id number] Age/Sex: 29 / F ADM Date: 05/19/25 Loc: [place] [address]: Jaspreet Adams D.O. Ordering Physician: Jaspreet Adams D.O. Date of Service: 05/19/25 Procedure(s): US OB BPP w non-stress Accession Number(s): [id number] cc: Jaspreet Adams D.O.; Physician,Non-Staff Alejandra The [place] [id number] Patient Name: CHENTE GONZALEZ MRN: [facility]:[id number] date: 1995 Sex: F Assigned Patient Location: [facility] Current Patient Location: [facility] Accession/Order Number: [id number] Exam Date: 05/19/2025 10:15 Report Date: 05/19/2025 [...] Mae M.D. 05/19/2025 10:54 AM Dictation Location: [place] [address] Electronically authenticated by: [id number] Y Date: 05/19/2025 10:54 Dictated By: Rahel Mae M.D. Signed By: 05/19/25 1056 DD/ 1054 TD/TT: Noise Abatement Engineer: [facility] Radiology, Radiologi MD guilherme - 05/19/2025 [place] [address] Ultrasound Report Signed Patient: CHENTE GONZALEZ MR#: [id number] : 1995 Acct:[id number] Age/Sex: 29 / F ADM Date: 05/19/25 Loc: [facility] 250-[address]: Jaspreet Adams D.O. Ordering Physician: Jaspreet Adams D.O. Date of Service: 05/19/25 Procedure(s): US OB BPP w non-stress Accession Number(s): [id number] cc: Jaspreet Adams D.O.; Physician,Non-Staff Alejandra The [address] [address] Patient Name: CHENTE GONZALEZ MRN: [facility]:[id number] date: 1995 Sex: F Assigned Patient Location: [facility] Current Patient Location: [facility] Accession/Order Number: [id number] Exam Date: 05/19/2025 10:15 Report Date: 05/19/2025 [...] Mae M.D. 05/19/2025 10:54 AM Dictation Location: [place] [address] Electronically authenticated by: [id number] Y Date: 05/19/2025 10:54 Dictated By: Rahel Mae M.D. Signed By: 05/19/25 1056 DD/ 1054 TD/TT: Noise Abatement Engineer: [facility] Radiology Study observation (narrative) [facility] US OB BPP W NON-STRESS Ordered By: Radiologist Radiology on 05-19-2025 [facility] Work Phone: Urinalysis macro (dipstick) panel (U)on 05-15-2025 Bilirubin, UA Negative Negative - 4(70) +++ mg/dL [facility] Blood, UA Positive Negative - 50 Derick/mcL [facility] Comment on above: 1+ Clarity, UA Clear [facility] Color, UA Straw [facility] Glucose, UA Negative Negative - 1999(110) ++++ mg/dL [facility] Interpretation and review of laboratory results Abnormal [facility] Ketones, UA Negative Negative - 160(16) ++++ mg/dL [facility] Leukocytes, UA Negative Negative - 500+++ Julio/mcL [facility] Nitrite, UA Negative Negative - Positive [facility] pH, UA 6 5 - 9 [facility] Protein, UA Positive Negative - 1999(20) ++++ mg/dL [facility] Comment on above: 2+ Spec Grav, UA 1.02 1 - 1.03 [facility] Urobilinogen, UA 1.0 0.2 - 12 mg/dL [facility] US OB FOLLOW UP TRANSABDOMIN [...] UA Negative Negative - 4(70) +++ mg/dL [facility] Blood, UA Positive Negative - 50 Derick/mcL [facility] Comment on above: 1+ Clarity, UA Clear [facility] Color, UA Yellow [facility] Glucose, UA Negative Negative - 1999(110) ++++ mg/dL [facility] Interpretation and review of laboratory results Abnormal [facility] Ketones, UA Negative Negative - 160(16) ++++ mg/dL [facility] Leukocytes, UA Negative Negative - 500+++ Julio/mcL [facility] Nitrite, UA Negative Negative - Positive [facility] pH, UA 6 5 - 9 [facility] Protein, UA Positive Negative - 1999(20) ++++ mg/dL [facility] Spec Grav, UA 1.01 1 - 1.03 [facility] Urobilinogen, UA 1.0 0.2 - 12 mg/dL [facility] Urinalysis macro (dipstick) panel (U)on 04-17-2025 Bilirubin, UA Negative Negative - 4(70) +++ mg/dL [facility] Blood, UA Positive Negative - 50 Derick/mcL [facility] Clarity, UA Clear [facility] Color, UA Yellow [facility] Glucose, UA Negative Negative - 1999(110) ++++ mg/dL [facility] Interpretation and review of laboratory results Abnormal [facility] Ketones, UA Negative Negative - 160(16) ++++ mg/dL [facility] Leukocytes, UA Positive Negative - 500+++ Julio/mcL [facility] Nitrite, UA Negative Negative - Positive [facility] pH, UA 6 5 - 9 [facility] Protein, UA Negative Negative - 1999(20) ++++ mg/dL [facility] Spec Grav, UA 1.015 1 - 1.03 [facility] Urobilinogen, UA 1.0 0.2 - 12 mg/dL [facility] Urinalysis macro (dipstick) panel (U)on 04-03-2025 Bilirubin, UA Negative Negative - 4(70) +++ mg/dL [facility] Blood, UA Positive Negative - 50 Derick/mcL [facility] Clarity, UA Clear [facility] Color, UA Yellow [facility] Glucose, UA Negative Negative - 1999(110) ++++ mg/dL [facility] Interpretation and review of laboratory results Abnormal [facility] Ketones, UA Negative Negative - 160(16) ++++ mg/dL [facility] Leukocytes, UA Negative Negative - 500+++ Julio/mcL [facility] Nitrite, UA Negative Negative - Positive [facility] pH, UA 6.5 5 - 9 [facility] Protein, UA Negative Negative - 2000(20) ++++ mg/dL [facility] Spec Grav, UA 1.015 1 - 1.03 [facility] Urobilinogen, UA 1.0 0.2 - 12 mg/dL [facility] GLUCOSE TOLERANCE 3 HOURon 0 03-21-2025 GLUCOSE TOLERANCE 3 HOUR High mg/dL [facility] Comment on above: GLU FAST 86 (<95) Co l: 03/21/25 0856 GLU 1HR 181H (<180) Col: 03/21/25 1002 GLU 2HR 162H (<155) Col: 03/21/25 1102 GLU 3HR 75 (<140) Col: 03/21/25 1202 Interpretation and review of laboratory results Abnormal [facility] US OB LIMITED 1+ FETUSESon 0 03-19-2025 [...] II, MD, PHD at 21-Mar-2025 08:31:03 AM [facility] Normal Not Available Comment on above: Order Comment: US OB INCOMPLETE ANATOMY Estimated Date of Delivery: 07/01/25 Gestational Age as of 02/24/2025: 21w6d IGP,APTIMA HPV,AGE GDLNon AGE GDLN ACOG TESTING Note . [facility] Comment on above: TESTS RESULT FLAG UN ITS REF RANGE LAB Clinician Provided Cytology Information Source.............[employer] Other.............. No. of containers..01 ThinPrep Vial Age Brijesh MARTINI Mandie... FLAG LEGEND: L-Low Normal,H-High Normal,LL-Alert Low,HH-Alert High <-Panic Low,>-Panic High,A-Abnormal,AA-Critical Abnormal Performed at: 01 [facility] [address] [place] [address] Mckenna Polanco MD, IGP, RFX APTIMA HPV ASCU Note . [facility] Comment on above: TESTS RESULT FLAG UN ITS REF RANGE LAB DIAGNOSIS: 02 NEGATIVE FOR INTRAEPITHELIAL LESION OR MALIGNANCY. Specimen adequacy: 02 Satisfactory for evaluation. No endocervical component is identified. Performed by: Andres Pineda Mammography Technician ([facility]) . 02 Note: Note 02 The [...] <-Panic Low,>-Panic High,A-Abnormal,AA-Critical Abnormal Performed at: [address] [address] Mckenna Polanco MD, Performed at: = - [facility] [id number] Ceramic Chemist: Mckenna Polanco MD, Phone: [phone] Performed at: [facility] [id number] Ceramic Chemist: Mckenna Polanco MD, Phone: [phone] [facility] GLUCOSE 1 HOURon 03-06-2025 Glucose [Mass/Vol] 141 mg/dL High NINF - 13 0 mg/dL [facility] Interpretation and review of laboratory results Abnormal [facility] Glucose tolerance, 1 houron 03-06-2025 Glucose Tolerance Test 1 Hour 141 [employer] [facility] No Panel Informationon 03-06 [facility] Urinalysis macro (dipstick) panel (U)on 03-05-2025 Bilirubin, UA Negative Negative - 4(70) +++ mg/dL [facility] Blood, UA Negative Negative - 50 Derick/mcL [facility] Clarity, UA Clear [facility] Color, UA Yellow [facility] Glucose, UA Negative Negative - 2000(110) ++++ mg/dL [facility] Interpretation and review of laboratory results Normal [facility] Ketones, UA Negative Negative - 160(16) ++++ mg/dL [facility] Leukocytes, UA Negative Negative - 500+++ Julio/mcL [facility] Nitrite, UA Negative Negative - Positive [facility] pH, UA 6 5 - 9 [facility] Protein, UA Negative Negative - 2000(20) ++++ mg/dL [facility] Spec Grav, UA 1.01 1 - 1.03 [facility] Urobilinogen, UA 0.2 0.2 - 12 mg/dL [facility] US OB 14+ WEEKS ANATOMY SCAN on 02-19-2025 US OB 14+ WEEKS ANATOMY SCAN EXAM: US OB 14+ WEEKS ANATOMY SCAN HISTORY: anatomy. COMPARISON: ultrasound 01/24/2025. TECHNIQUE: Two-dimensional transabdominal grayscale ultrasound [...] II, MD, PHD at 20-Feb-2025 09:47:05 AM [facility] Normal Not Available Comment on above: Order Comment: US OB ANATOMY SINGLE W US OB CERVICAL LENGTH Estimated Date of Delivery: 07/01/25 Gestational Age as of 02/12/2025: 20w1d HBV surface Ag IA Qlon 02-01 Hepatitis B Surface Antigen Negative [facility] BOX TESTon 01-31-2025 BOX TEST SENT OUT [facility] BOX2 01/31/25 [facility] Drug Screen, Urineon 025 Amphetamine/Methamphet amine Negative [facility] Barbiturates Negative [facility] Benzodiazepines Negative [facility] Cocaine Metabolite Negative [facility] Ecstasy Negative [facility] Methadone Negative [facility] Opiates Negative [facility] Oxycodone Negative [facility] Phencyclidine Negative [facility] Thc Marijuana, Urine Positive [facility] HIV 1+2 Ab+HIV1 p24 Ag IA Ql on 01-31-2025 HIV 1&2 AB/AG Non-Reactive [facility] Hemoglobin A1con 01-31-2025 HbA1c (Bld) [Mass fraction] 4.9 % 4.0 - 6.0 % [facility] No Panel Informationon 01-31 [facility] Rubella IGG immune statuson 01-31-2025 Rubella immune IgG 7.29 [facility] Type and screenon 01-31-2025 Abo/Rh(D) Negative [facility] No Panel Informationon 01-30 STAPHYLOCOCCUS EPIDERMIDIS, HAEMOLYTICUS, LUGDUNENSIS, SAPROPHYTICUS (URINA 0 [facility] STAPHYLOCOCCUS EPIDERMIDIS, HAEMOLYTICUS, LUGDUNENSIS, SAPROPHYTICUS (URINA Not detected [facility] URINARY TRACT INFECTION (HTR X)on 01-30-2025 [...] (GROUP A STREP) Not detected [facility] Urinalysis macro (dipstick) panel (U)on 01-29-2025 Bilirubin, UA Negative Negative - 4(70) +++ mg/dL [facility] Blood, UA Positive Negative - 50 Derick/mcL [facility] Comment on above: Trace-intact Clarity, UA Clear [facility] Color, UA Yellow [facility] Glucose, UA Negative Negative - 2000(110) ++++ mg/dL [facility] Interpretation and review of laboratory results Abnormal [facility] Ketones, UA Negative Negative - 160(16) ++++ mg/dL [facility] Leukocytes, UA Negative Negative - 500+++ Julio/mcL [facility] Nitrite, UA Negative Negative - Positive [facility] pH, UA 7 5 - 9 [facility] Protein, UA Trace Negative - 1999(20) ++++ mg/dL [facility] Spec Grav, UA 1.02 1 - 1.03 [facility] Urobilinogen, UA 1.0 0.2 - 12 mg/dL [facility] HCG ( test) Ql (U)o n 01-24-2025 Interpretation and review of laboratory results Abnormal [facility] Preg Test, Ur Positive Negative [facility] US OB LIMITED 1+ FETUSESon [...] II, MD, PHD at 27-Jan-2025 10:23:04 AM [facility] Normal Not Available Comment on above: Order Comment: US OB TRANSVAGINAL No LMP recorded. Urinalysis macro (dipstick) panel (U)on 01-24-2025 Bilirubin, UA Negative Negative - 4(70) +++ mg/dL [facility] Blood, UA Positive Negative - 50 Derick/mcL [facility] Comment on above: Trace-Intact Clarity, UA Clear [facility] Color, UA Yellow [facility] Glucose, UA Negative Negative - 2000(110) ++++ mg/dL [facility] Interpretation and review of laboratory results Abnormal [facility] Ketones, UA Negative Negative - 160(16) ++++ mg/dL [facility] Leukocytes, UA Negative Negative - 500+++ Julio/mcL [facility] Nitrite, UA Negative Negative - Positive [facility] pH, UA 7 5 - 9 [facility] Protein, UA Negative Negative - 2000(20) ++++ mg/dL [facility] Spec Grav, UA 1.02 1 - 1.03 [facility] Urobilinogen, UA 0.2 0.2 - 12 mg/dL [facility] Urine Cultureon 01-06-2025 Bacteria identified Cx Nom (U) No Growth 2 Days PERFORMED BY: [place] [address] PATHOLOGIST MACHINE [employer]PECT[employer] RAHUL HOLCOMB M.D. Normal [facility] Comment on above: Performed By: #### C UU #### [address] Amphetamine Screen Ql (U)Ord ered By: Denny Azevedo on 08-11-2023 Amphetamines Ql (U) Negative Negative [facility] Amylase [Enzymatic activity/ volume] in Serum or PlasmaOrdered By: Denny Azevedo on 08-11-2023 Amylase [Catalytic activity/Vol] 32 U/L 29-103 [facility] Aspartate aminotransferase [ Enzymatic activity/volume] in Serum or PlasmaOrdered By: Denny Azevedo on 08-11-2023 AST [Catalytic activity/Vol] 24 U/L 13-39 [facility] Automated erythrocytes count in urine sediment (number/area)Ordered By: Denny Azevedo on 08-11-2023 RBC Auto (Urine sed) [#/Area] 10-19 [HPF] 0-4 [facility] Automated leukocytes count i n urine sediment (number/area)Ordered By: Denny Azevedo on 08-11-2023 WBC Auto (Urine sed) [#/Area] 3-4 [HPF] 0-4 [facility] Barbiturates [Presence] in U rine by Screen methodOrdered By: Denny Azevedo on 08-11-2023 Barbiturates Screen Ql (U) Negative Negative [facility] Basophils Auto (Bld) [#/Vol] Ordered By: Denny Azevedo on 08-11-2023 Basophils (Bld) [#/Vol] 0.1 10*3/uL 0.0-0.2 [facility] Basophils/100 WBC Auto (Bld) Ordered By: Denny Azevedo on 08-11-2023 Basophils/100 WBC (Bld) 0.9 % . [facility] Benzodiazepines Screen Ql (U )Ordered By: Denny Azevedo on 08-11-2023 Benzodiazepines Ql (U) Negative Negative [facility] Benzoylecgonine [Presence] i n Urine by Screen methodOrdered By: Denny Azevedo on 08-11-2023 Benzoylecgonine Screen Ql (U) Negative Negative [facility] Bilirubin Test strip Ql (U)O rdered By: Denny Azevedo on 08-11-2023 Bilirubin Ql (U) Negative Negative [facility] Cannabinoids [Presence] in U rine by Screen methodOrdered By: Denny Azevedo on 08-11-2023 Cannabinoids Screen Ql (U) Positive Negative [facility] Comment on above: These are unconfirme d results and should not be used for legal purposes. Drug Cut-Off Concentration: AMPH 1000 ng/mL THOMAS 200 ng/mL ARTHUR 200 ng/mL COCM 300 ng/mL OP 300 ng/mL PCP 25 ng/mL THC 20 ng/mL Carbon dioxide, total [Moles /volume] in Serum or PlasmaOrdered By: Denny Azevedo on 08-11-2023 CO2 [Moles/Vol] 17.8 mmol/L 21.0-31.0 [facility] Chloride [Moles/volume] in S marline or PlasmaOrdered By: Denny Azevedo on 08-11-2023 Chloride [Moles/Vol] 108 mmol/L 98-107 [facility] Color Auto (U)Ordered By: French Azevedo on 08-11-2023 Color (U) Yellow Yellow [facility] Creatine kinase [Enzymatic a ctivity/volume] in Serum or PlasmaOrdered By: Denny Azevedo on 08-11-2023 CK [Catalytic activity/Vol] 225 U/L 30-223 [facility] Creatinine [Mass/volume] in Serum or PlasmaOrdered By: Denny Azevedo on 08-11-2023 Creatinine [Mass/Vol] 0.68 mg/dL 0.60-1.20 [facility] Eosinophils Auto (Bld) [#/Vo l]Ordered By: Denny Azevedo on 08-11-2023 Eosinophils (Bld) [#/Vol] 0.1 10*3/uL 0.0-0.45 [facility] Eosinophils/100 WBC Auto (Bl d)Ordered By: Denny Azevedo on 08-11-2023 Eosinophils/100 WBC (Bld) 1.3 % . [facility] Erythrocyte distribution wid th Auto (RBC) [Ratio]Ordered By: Denny Azevedo on 08-11-2023 Erythrocyte distribution width (RBC) [Ratio] 12.9 % 11.9-15.3 [facility] Ethanol [Mass/volume] in Ser um or [...] ( test) Ql (U) Negative [facility] Hematocrit Auto (Bld) [Volum e fraction]Ordered By: Denny Azevedo on 08-11-2023 Hematocrit (Bld) [Volume fraction] 40.4 % 34.0-46.4 [facility] Hemoglobin [Mass/volume] in BloodOrdered By: Denny Azevedo on 08-11-2023 Hemoglobin (Bld) [Mass/Vol] 14.2 g/dL 11.8-15.4 [facility] INR in Platelet poor plasma by Coagulation assayOrdered By: Denny Azevedo on 08-11-2023 INR Coag (PPP) [Relative time] 1.0 {INR} [facility] Comment on above: INR [...] on 08-11-2023 Ketones (U) [Mass/Vol] Trace Negative [facility] - UrinalysisOrder ed By: Denny Azevedo on 08-11-2023 Hyaline casts LM Ql (Urine sed) 0-8 [LPF] 0-8 [facility] Leukocytes [#/volume] correc sonja for nucleated erythrocytes in Blood by Automated counOrdered By: Denny Azevedo on 08-11-2023 WBC corrected for nucl RBC Auto (Bld) [#/Vol] 7.9 10*3/uL 3.8-11.6 [facility] Lipase [Enzymatic activity/v olume] in Serum or PlasmaOrdered By: Denny Azevedo on 08-11-2023 Lipase [Catalytic activity/Vol] 13.0 U/L 11.0-82.0 [facility] Lymphocytes Auto (Bld) [#/Vo l]Ordered By: Denny Azevedo on 08-11-2023 Lymphocytes (Bld) [#/Vol] 1.8 10*3/uL 1.00-4.8 [facility] Lymphocytes/100 WBC Auto (Bl d)Ordered By: Denny Azevedo on 08-11-2023 Lymphocytes/100 WBC (Bld) 23.1 % . [facility] MCH Auto (RBC) [Entitic mass ]Ordered By: Denny Azevedo on 08-11-2023 MCH (RBC) [Entitic mass] 30.4 pg 24.7-34.3 [facility] MCHC Auto (RBC) [Mass/Vol]Or dered By: Denny Azevedo on 08-11-2023 MCHC (RBC) [Mass/Vol] 35.1 g/dL 32.0-35.0 [facility] MCV Auto (RBC) [Entitic vol] Ordered By: Denny Azevedo on 08-11-2023 MCV (RBC) [Entitic vol] 86.7 fL 80-100 [facility] Monocyte distribution width [Entitic volume] in Blood by AutomatedOrdered By: Denny Azevedo on 08-11-2023 Monocyte distribution width Auto (Bld) [Entitic vol] 17.99 % 0.00-20.00 [facility] Monocytes Auto (Bld) [#/Vol] Ordered By: Denny Azevedo on 08-11-2023 Monocytes (Bld) [#/Vol] 0.5 10*3/uL 0.0-0.8 [facility] Monocytes/100 WBC Auto (Bld) Ordered By: Denny Azevedo on 08-11-2023 Monocytes/100 WBC (Bld) 6.9 % . [facility] Neutrophils Auto (Bld) [#/Vo l]Ordered By: Denny Azevedo on 08-11-2023 Neutrophils (Bld) [#/Vol] 5.4 10*3/uL 1.8-7.7 [facility] Neutrophils/100 WBC Auto (Bl d)Ordered By: Denny Azevedo on 08-11-2023 Neutrophils/100 WBC (Bld) 67.8 % . [facility] Nitrite Test strip Ql (U)Ord ered By: Denny Azevedo on 08-11-2023 Nitrite Ql (U) Negative Negative [facility] No Panel InformationOrdered By: Denny Azevedo on 08-11-2023 Estimated GFR (CKD-EPI) > 60.0 mL/Min [facility] Creatinine Clearance (Chem 138.27 [facility] Nucleated erythrocytes [Pres ence] in Blood by Automated countOrdered By: Denny Azevedo on 08-11-2023 Nucleated RBC Auto Ql (Bld) 0.1 /100{WBC} 0-0.5 [facility] Opiates [Presence] in Urine by Screen methodOrdered By: Denny Azevedo on 08-11-2023 Opiates Screen Ql (U) Negative Negative [facility] Phencyclidine Screen Ql (U)O rdered By: Denny Azevedo on 08-11-2023 Phencyclidine Ql (U) Negative Negative [facility] Platelet mean volume Auto (B ld) [Entitic vol]Ordered By: Denny Azevedo on 08-11-2023 Platelet mean volume (Bld) [Entitic vol] 7.7 fL 6.3-10.7 [facility] Platelets Auto (Bld) [#/Vol] Ordered By: Denny Azevedo on 08-11-2023 Platelets (Bld) [#/Vol] 307 10*3/uL 150-450 [facility] Potassium [Moles/volume] in Serum or PlasmaOrdered By: Denny Azevedo on 08-11-2023 Potassium [Moles/Vol] 3.3 mmol/L 3.5-5.1 [facility] Protein Auto test strip (U) [Mass/Vol]Ordered By: Denny Azevedo on 08-11-2023 Protein (U) [Mass/Vol] 30 mg/dL Negative [facility] Prothrombin time (PT)Ordered By: Denny Azevedo on 08-11-2023 PT Coag (PPP) [Time] 12.1 s 9.0-12.9 [facility] Comment on above: A hematocrit value g reater than 55% may lead to inaccurate results in coagulation testing. Patients having hematocrit values >55% require a special collection tube for coagulation studies. Please contact the laboratory at [phone] for redraw instructions. RBC Auto (Bld) [#/Vol]Ordere d By: Denny Azevedo on 08-11-2023 RBC (Bld) [#/Vol] 4.66 10*6/uL 3.60-5.00 [facility] Serum or plasma anion gap de terminationOrdered By: Denny Azevedo on 08-11-2023 Anion gap [Moles/Vol] 15.5 mmol/L 6.0-15.0 [facility] Sodium [Moles/volume] in Ser um or PlasmaOrdered By: Denny Azevedo on 08-11-2023 Sodium [Moles/Vol] 138 mmol/L 136-145 [facility] Specific gravity Auto test s trip (U) [Rel density]Ordered By: Denny Azevedo on 08-11-2023 Specific gravity (U) [Rel density] 1.026 1.001-1.03 0 [facility] Squamous epithelial cells de tection in urine sediment by light microscopyOrdered By: Denny Azevedo on 08-11-2023 Epithelial cells.squamous LM Ql (Urine sed) 0-1 [HPF] 0-2 [facility] Urea nitrogen [Mass/volume] in Serum or PlasmaOrdered By: Denny Azevedo on 08-11-2023 Urea nitrogen [Mass/Vol] 11 mg/dL 7-25 [facility] Urine bacteria detection by automated methodOrdered By: Denny Azevedo on 08-11-2023 Bacteria Auto Ql (U) None seen None Seen [facility] Urine clarity by refractomet ry automatedOrdered By: Denny Azevedo on 08-11-2023 Clarity Refractometry automated (U) Clear Clear [facility] Urine glucose measurement by automated test strip (mass/volume)Ordered By: Denny Azevedo on 08-11-2023 Glucose Auto test strip (U) [Mass/Vol] Normal mg/dL Normal [facility] Urine hemoglobin detection b y automated test stripOrdered By: Denny Azevedo on 08-11-2023 Hemoglobin Auto test strip Ql (U) 2+ Negative [facility] Urine leukocyte esterase det ection by automated test stripOrdered By: Denny Azevedo on 08-11-2023 Leukocyte esterase Auto test strip Ql (U) Negative Negative [facility] Urobilinogen Auto test strip (U) [Mass/Vol]Ordered By: Denny Azevedo on 08-11-2023 Urobilinogen (U) [Mass/Vol] Normal mg/dL Normal [facility] WBC Auto (Bld) [#/Vol]Ordere d By: Denny Azevedo on 08-11-2023 WBC (Bld) [#/Vol] 7.9 10*3/uL 3.8-11.6 [facility] pH Auto test strip (U)Ordere d By: Denny Azevedo on 08-11-2023 pH (U) 6.5 [pH] 5.0-9.0 [facility] BILIRUBIN CONJUGATED (DIRECT )on 03-03-2022 BILI, CONJUGATED 0.3 mg/dL Critically high 0.0-0.2 [facility] Comment on above: Performed By: #### D FERNANDEZ #### [facility] [address] [place] [address] Dr. Yaritza Bojorquez CBC AUTO DIFFon 03-03-2022 BASO # 0.1 103/ul Normal 0.0-0.1 [facility] Comment on above: Performed By: #### C BC #### [facility] [address] [place] [address] Dr. Yaritza Bojorquez Basophils/100 WBC (Bld) 0.5 % Normal 0.2-2.0 [facility] Comment on above: Performed By: #### C BC #### [facility] [address] [place] [address] Dr. Yaritza Bojorquez EO # 0.0 103/ul Normal 0.0-0.7 [facility] Comment on above: Performed By: #### C BC #### [facility] [address] [place] [address] Dr. Yaritza Bojorquez Eosinophils/100 WBC (Bld) 0.1 % Critically low 0.9-7.0 [facility] Comment on above: Performed By: #### C BC #### [facility] [address] [place] [address] Dr. Yaritza Bojorquez Erythrocyte distribution width (RBC) [Ratio] 12.1 % Normal 11.0-15.0 [facility] Comment on above: Performed By: #### C BC #### [facility] [address] [place] [address] Dr. Yaritza Bojorquez Hematocrit (Bld) [Volume fraction] 45.0 % Normal 36.0-48.0 [facility] Comment on above: Performed By: #### C BC #### [facility] [address] [place] [address] Dr. Yaritza Bojorquez Hemoglobin (Bld) [Mass/Vol] 16.5 g/dL Critically high 12.0-16.0 [facility] Comment on above: Performed By: #### C BC #### [facility] [address] [place] [address] Dr. Yaritza Bojorquez IG # 0.05 10e3/ul Critically high 0.00-0.03 [facility] Comment on above: Performed By: #### C BC #### [facility] [address] [place] [address] Dr. Yaritza Bojorquez IG % 0.3 % Normal 0.0-0.5 [facility] Comment on above: Performed By: #### C BC #### [facility] [address] [place] [address] Dr. Yaritza Bojorquez LYMPH # 3.2 103/ul Normal 1.2-3.8 [facility] Comment on above: Performed By: #### C BC #### [facility] [address] [place] [address] Dr. Yaritza Bojorquez Lymphocytes/100 WBC (Bld) 21.6 % Normal 20.5-60.0 [facility] Comment on above: Performed By: #### C BC #### [facility] [address] [place] [address] Dr. Yaritza Bojorquez MANUAL DIFF REQ NO Normal [facility] Comment on above: Performed By: #### C BC #### [facility] [address] [place] [address] Dr. Yaritza Bojorquez MCH (RBC) [Entitic mass] 30.7 pg Normal 26.7-34.0 [facility] Comment on above: Performed By: #### C BC #### [facility] [address] [place] [address] Dr. Yaritza Bojorquez MCHC (RBC) [Mass/Vol] 36.7 g/dL Critically high 29.9-35.2 [facility] Comment on above: Performed By: #### C BC #### [facility] [address] [place] [address] Dr. Yaritza Bojorquez MCV (RBC) [Entitic vol] 83.8 fL Normal 81.0-99.0 [facility] Comment on above: Performed By: #### C BC #### [facility] [address] [place] [address] Dr. Yaritza Bojorquez MONO # 0.8 103/ul Normal 0.3-0.8 [facility] Comment on above: Performed By: #### C BC #### [facility] [address] [place] [address] Dr. Yaritza Bojorquez Monocytes/100 WBC (Bld) 5.3 % Normal 1.7-12.0 [facility] Comment on above: Performed By: #### C BC #### [facility] [address] [place] [address] Dr. Yaritaz Bojorquez NEUT # 10.5 103/ul Critically high 1.4-6.5 [facility] Comment on above: Performed By: #### C BC #### [facility] [address] [place] [address] Dr. Yaritza Bojorquez Neutrophils/100 WBC (Bld) 72.2 % Normal 43.0-75.0 [facility] Comment on above: Performed By: #### C BC #### [facility] [address] [place] [address] Dr. Yaritza Bojorquez Platelet mean volume (Bld) [Entitic vol] 10.0 fL Normal 9.5-13.5 [facility] Comment on above: Performed By: #### C BC #### [facility] [address] [place] [address] Dr. Yaritza Bojorquez PLT 450 103/ul Normal 150-450 [facility] Comment on above: Performed By: #### C BC #### [facility] [address] [place] [address] Dr. Yaritza Bojorquez RBC 5.37 106/ul Normal 4.20-5.40 [facility] Comment on above: Performed By: #### C BC #### [facility] [address] [place] [address] Dr. Yaritza Bojorquez WBC 14.6 103/ul Critically high 4.0-11.0 [facility] Comment on above: Performed By: #### C BC #### [facility] [address] [place] [address] Dr. Yaritza Bojorquez CULTURE URINEon 03-03-2022 CULTURE URINE Culture Observations : LIGHT GROWTH OF MIXED GENITAL KRYSTAL. NO POTENTIAL PATHOGENS SEEN. Normal [facility] Comment on above: Performed By: #### U RCX #### [facility] [address] [place] [address] Dr. Yaritza Bojorquez ER URINE PROFILEon 2 Bilirubin Ql (U) Negative Normal NEGATIVE [facility] Comment on above: Performed By: #### Sandoval URIBE UMICRO #### [facility] [address] [place] [address] Dr. Yaritza Bojorquez Clarity (U) CLEAR Normal CLEAR [facility] Comment on above: Performed By: #### E JOJO UMICRO #### [facility] [address] [place] [address] Dr. Yaritza Bojorquez Color (U) DK. YELLOW Normal YELLOW [facility] Comment on above: Performed By: #### E JOJO UMICRO #### [facility] [address] [place] [address] Dr. Yaritza CONN A micrscopic examina tion will be performed if indicated. Normal [facility] Comment on above: Performed By: #### Sandoval URIBE UMICRO #### [facility] [address] [place] [address] Dr. Yaritza Bojorquez Glucose Ql (U) Negative Normal NEGATIVE [facility] Comment on above: Performed By: #### Sandoval URIBE UMICRO #### [facility] [address] [place] [address] Dr. Yaritza Bojorquez Hemoglobin Ql (U) Negative Normal NEGATIVE [facility] Comment on above: Performed By: #### Sandoval URIBE UMICRO #### [facility] [address] [place] [address] Dr. Yaritza Bojorquez Ketones Ql (U) >=80 Abnormal NEGATIVE [facility] Comment on above: Performed By: #### Sandoval URIBE UMICRO #### [facility] [address] [place] [address] Dr. Yaritza Bojorquez LEUKOCYTES TRACE Abnormal NEGATIVE [facility] Comment on above: Performed By: #### Sandoval URIBE UMICRO #### [facility] [address] [place] [address] Dr. Yaritza Bojorquez Nitrite Ql (U) Negative Normal NEGATIVE [facility] Comment on above: Performed By: #### Sandoval URIBE UMICRO #### [facility] [address] [place] [address] Dr. Yaritza Bojorquez pH (U) 6.5 [pH] Normal 5-9 [facility] Comment on above: Performed By: #### TAYLA MAE #### [facility] [address] [place] [address] Dr. Yaritza Bojorquez Protein (U) [Mass/Vol] 100 mg/dL Abnormal NEGAT TORSTEN/ TRACE [facility] Comment on above: Performed By: #### TAYLA MAE #### [facility] [address] [place] [address] Dr. Yaritza Bojorquez SPEC GRAVITY 1.025 Normal 1.005-<=1. 025 [facility] Comment on above: Performed By: #### TAYLA MAE #### [facility] [address] [place] [address] Dr. Yaritza Bojorquez UR MICRO IND INDICATED Normal [facility] Comment on above: Performed By: #### TAYLA MAE #### [facility] [address] [place] [address] Dr. Yaritza Bojorquez Urobilinogen Qn (U) 4 {Emir'U}/dL Abnormal 0.2 - 1.0 [facility] Comment on above: Performed By: #### TAYLA MAE #### [facility] [address] [place] [address] Dr. Yaritza Bojorquez PROF 14(COMP METB)on 022 Albumin [Mass/Vol] 4.5 g/dL Normal 3.4-5.0 [facility] Comment on above: Performed By: #### C MP #### [facility] [address] [place] [address] Dr. Yaritza Bojorquez Albumin/Globulin [Mass ratio] 1.2 {ratio} Normal [facility] Comment on above: Performed By: #### C MP #### [facility] [address] [place] [address] Dr. Yaritza Bojorquez ALP [Catalytic activity/Vol] 48 U/L Normal 46-116 [facility] Comment on above: Performed By: #### C MP #### [facility] [address] [address] [address] Yaritza Bojorquez ALT [Catalytic activity/Vol] 25 U/L Normal 14-59 [facility] Comment on above: Performed By: #### C MP #### [facility] [address] [address] [address] Yaritza Bojorquez Anion gap [Moles/Vol] 17.8 mmol/L Normal Th e [facility] Comment on above: Performed By: #### C MP #### [facility] [address] [address] [address] Yaritza Bojorquez AST [Catalytic activity/Vol] 11 U/L Critically low 15-37 [facility] Comment on above: Performed By: #### C MP #### [facility] [address] [place] [address] Dr. Yaritza Bojorquez Bilirubin [Mass/Vol] 1.4 mg/dL Critically high 0.2-1.0 [facility] Comment on above: Performed By: #### C MP #### [facility] [address] [place] [address] Dr. Yaritza Bojorquez Calcium [Mass/Vol] 9.3 mg/dL Normal 8.5-10.1 [facility] Comment on above: Performed By: #### C MP #### [facility] [address] [place] [address] Dr. Yaritza Bojorquez Chloride [Moles/Vol] 98 mmol/L Normal 98-107 [facility] Comment on above: Performed By: #### C MP #### [facility] [address] [address] [address] Yaritza Bojorquez CO2 [Moles/Vol] 19.1 mmol/L Critically low 21.0-32.0 [facility] Comment on above: Performed By: #### C MP #### [facility] [address] [place] [address] Dr. Yaritza Bojorquez Creatinine [Mass/Vol] 0.95 mg/dL Normal 0.55-1.02 [facility] Comment on above: Performed By: #### C MP #### [facility] [address] [address] [address] Yaritza Bojorquez EGFR-AF SIERRA LEONEAN >60 Normal >=60 [facility] Comment on above: Performed By: #### C MP #### [facility] [address] [address] [address] Yaritza Bojorquez EGFR-NON AF SIERRA LEONEAN >60 Normal >=60 [facility] Comment on above: Performed By: #### C MP #### [facility] [address] [address] [address] Yaritza Bojorquez Globulin (S) [Mass/Vol] 3.6 g/dL Normal [facility] Comment on above: Performed By: #### C MP #### [facility] [address] [address] [address] Yaritza Bojorquez Glucose [Mass/Vol] 138 mg/dL Critically high 74-106 T [facility] Comment on above: Performed By: #### C MP #### [facility] [address] [address] [address] Yaritza Bojorquez Potassium [Moles/Vol] 2.9 mmol/L Critically low 3.5-5.1 [facility] Comment on above: Performed By: #### C MP #### [facility] [address] [place] [address] Dr. Yaritza Bojorquez Protein [Mass/Vol] 8.1 g/dL Normal 6.4-8.2 [facility] Comment on above: Performed By: #### C MP #### [facility] [address] [address] [address] Yaritza Bojorquez Sodium [Moles/Vol] 132 mmol/L Critically low 136-145 Th [facility] Comment on above: Performed By: #### C MP #### [facility] [address] [place] [address] Dr. Yaritza Bojorquez Urea nitrogen [Mass/Vol] 8.0 mg/dL Normal 7.0-18.0 [facility] Comment on above: Performed By: #### C MP #### [facility] [address] [address] [address] Yaritza Bojorquez Urea nitrogen/Creatinine [Mass ratio] 8.4 mg/mg Normal [facility] Comment on above: Performed By: #### C MP #### [facility] [address] [place] [address] Dr. Yaritza Bojorquez URINE MICROSCOPIC ONLYon BACTERIA MODERATE Abnormal NONE SEEN [facility] Comment on above: Performed By: #### E RUR, UMICRO #### [facility] [address] [place] [address] Dr. Yaritza Bojorquez Bacteria identified Cx Nom (U) INDICATED Normal [facility] Comment on above: Performed By: #### E RUR, UMICRO #### [facility] [address] [place] [address] Dr. Yaritza Bojorquez CAST NONE SEEN Normal NONE SEEN [facility] Comment on above: Performed By: #### E RUR, UMICRO #### [facility] [address] [place] [address] Dr. Yaritza Bojorquez Crystals LM Nom (Urine sed) NONE SEEN Normal NONE SEEN [facility] Comment on above: Performed By: #### E RUR, UMICRO #### [facility] [address] [place] [address] Dr. Yaritza Bojorquez Epithelial cells LM Ql (Urine sed) MANY Abnormal NONE SEEN /RARE [facility] Comment on above: Performed By: #### E RUR, UMICRO #### [facility] [address] [place] [address] Dr. Yaritza Bojorquez MUCOUS SMALL Abnormal NONE SEEN [facility] Comment on above: Performed By: #### E RUR, UMICRO #### [facility] [address] [place] [address] Dr. Yaritza Bojorquez RBC 2-5 Abnormal 0-2 [facility] Comment on above: Performed By: #### E RUR, UMICRO #### [facility] [address] [place] [address] Dr. Yaritza Bojorquez WBC 5-10 Abnormal NONE SEEN [facility] Comment on above: Performed By: #### E RUR, UMICRO #### [facility] [address] [address] [address] Yaritza Bojorquez XR ABD FLAT UP_PA [...] Date: 2022-03-03 07:46 Normal [facility] Covid-19 PCR (CVDTB)on 07-29 SARS-CoV-2 (COVID-19) RNA KOLE+probe Ql (Unsp spec) Not detected Normal NOT DETECTED [facility] Comment on above: Result Comment: This test is not yet approved or cleared by the [place] FDA. When there are no FDA-approved or cleared tests available, and other criteria are met, FDA can make tests available under an emergency access mechanism called an Emergency Use Authorization (EUA). The EUA for this test is supported by the [place] of Health and Human Service's (HHS's) declaration [...] consistent with SARS-CoV-2. Performed By: #### [facility] #### [facility] [address] [address] [address] Yaritza Bojorquez Provider Note - ED [...] Current Medications SIGNIFICANT EVENTS: Immunizations Description:Tdap INSURANCE VERIFICATION REPRESENTATIVE: Is : no(1) Is : no(1) RESULTS/VITAL SIGNS VITAL SIGNS: T PRBP SpO2O2(LPM) %FiO2 Method 22-Jun-2019 18:54:[id number] 99 room air, no respiratory support 22-Jun-2019 18:07:[id number] 97 room air, no respiratory support MEDICAL [...] - Final Verification: completed Procedure performed by: mt Refrigerator Tester(s): none Findings: grossly normal anatomy Specimen: no [...] Language: Preferred Language for Discussing Health Care (patient/designee)Wolof Advanced Directives: Advance Directive/DNRno Family Violence Adult: Abuse Screen: Are you or have you been threatened or abused physically, emotionally, or sexually by anyoneno Learning Assessment (Patient): Learning Assessment (Patient): Patient is Able to be Assessed for Learningyes Factors Influencing Readiness to Learnacuteness of illness Factors that Impact Ability to Learnnone Devices/Methods Used to Communicatenone Learning Preferencesaudio Cultural Considerationsnone Developmental Considerationsnone Anabaptism Considerationsnone Learning Assessment (Other Learner): Learning Assessment (Other Learner): Other learner availableno Pressure Injury/TB/Substance: Pressure Injury: Pressure Injury Present on Admissionno Do you have a coughno Substance Use Current or Former Historynever: Cigarette/Tobacco, e-Cigarette/Vaping, Alcohol, Street Drugs Admission Risk Screen: Significant IndicatorsComplete CAGE: CAGE: Is this an injured patient at a Trauma Center ([facility]/[place]): yes C: Have you ever felt you needed to Cut down on your drinking: no A: Have people Annoyed you by criticizing your drinking: no G: Have you ever felt Guilty about drinking: no E: Have you ever felt you needed a drink first thing in the morning (Eye-transmission rebuilder) to steady your nerves or to get rid of hangover: no Electronic Signatures: Mehdi Chaney (MALU) (Signed 22-Jun-2019 18:11) Authored: Preferred Language, Advanced Directives, Family Violence Adult, Learning Assessment (Patient), Learning Assessment (Other Learner), Pressure Injury/TB/Substance, CAGE Last Updated: 22-Jun-2019 18:11 by Mehdi Chaney (MALU) [facility] Triage - EDon 06-22-2019 Triage - ED [...] than 3 weeks: no Travel outside of [facility]: no Allergies: yes Last menstrual period: [...] Accompanied By: self Language: Spoken Language Preferred: Wolof PRIMARY ASSESSMENT CHENTE GONZALEZ's primary assessment is [...] Time Vital Sign Value Performing Clinician Facility 06-02-2025 11:40-0400 Body mass index (BMI) [Ratio] 37.28 kg/m2 Willy Avila NP Work Phone: [facility] 06-02-2025 11:40-0400 Body weight 101.61 kg Willy Avila SPOT REMOVER Work Phone: [facility] 06-02-2025 11:40-0400 Diastolic blood pressure 80 mm[Hg] Willy Cardozaly SPOT REMOVER Work Phone: [facility] 06-02-2025 11:40-0400 Systolic blood pressure 126 mm[Hg] Willy Avila SPOT REMOVER Work Phone: [facility] 05-15-2025 10:03-0400 Body mass index (BMI) [Ratio] 36.08 kg/m2 Deyanira Mccloud PA Work Phone: [facility] 05-15-2025 10:03-0400 Body weight 98.34 kg Deyanira Juan PA Work Phone: [facility] 05-15-2025 10:03-0400 Diastolic blood pressure 78 mm[Hg] Deyanira Juan PA Work Phone: [facility] 05-15-2025 10:03-0400 Systolic blood pressure 140 mm[Hg] Deyanira Juan PA Work Phone: [facility] 04-30-2025 15:05-0400 Body mass index (BMI) [Ratio] 35.01 kg/m2 Jaspreet Angie DO Work Phone: [facility] 04-30-2025 15:05-0400 Body weight 95.44 kg Jaspreet Angie DO Work Phone: [facility] 04-30-2025 15:05-0400 Diastolic blood pressure 70 mm[Hg] Jaspreet Angie DO Work Phone: [facility] 04-30-2025 15:05-0400 Systolic blood pressure 120 mm[Hg] Jaspreet Angie DO Work Phone: [facility] 04-17-2025 10:41-0400 Body mass index (BMI) [Ratio] 33.91 kg/m2 Deyanira Juan PA Work Phone: [facility] 04-17-2025 10:41-0400 Body weight 92.44 kg Deyanira KABA Work Phone: [facility] 04-17-2025 10:41-0400 Diastolic blood pressure 86 mm[Hg] Deyanira KABA Work Phone: [facility] 04-17-2025 10:41-0400 Systolic blood pressure 134 mm[Hg] Deyanira KABA Work Phone: [facility] 04-03-2025 10:50-0400 Body mass index (BMI) [Ratio] 33.35 kg/m2 Jaspreet Angie DO Work Phone: [facility] 04-03-2025 10:50-0400 Body weight 90.9 kg Jaspreet Angie DO Work Phone: [facility] 04-03-2025 10:50-0400 Diastolic blood pressure 72 mm[Hg] Jaspreet Angie DO Work Phone: [facility] 04-03-2025 10:50-0400 Systolic blood pressure 130 mm[Hg] Jaspreet Angie DO Work Phone: [facility] 03-05-2025 11:16-0400 Body mass index (BMI) [Ratio] 31.62 kg/m2 Jaspreet Angie DO Work Phone: [facility] 03-05-2025 11:16-0400 Body weight 86.18 kg Jaspreet Angie DO Work Phone: [facility] 03-05-2025 11:16-0400 Diastolic blood pressure 78 mm[Hg] Jaspreet Angie DO Work Phone: [facility] 03-05-2025 11:16-0400 Systolic blood pressure 128 mm[Hg] Jaspreet Angie DO Work Phone: [facility] 01-29-2025 10:57-0400 Body mass index (BMI) [Ratio] 31.53 kg/m2 Willy Avila NP Work Phone: [facility] 01-29-2025 10:57-0400 Body weight 85.96 kg Willy Avila SPOT REMOVER Work Phone: [facility] 01-29-2025 10:57-0400 Diastolic blood pressure 80 mm[Hg] Willy Marrufoerly SPOT REMOVER Work Phone: [facility] 01-29-2025 10:57-0400 Systolic blood pressure 136 mm[Hg] Willy Cardozaly SPOT REMOVER Work Phone: [facility] 01-24-2025 11:42-0400 Diastolic blood pressure 70 mm[Hg] [facility] Nurse [facility] 01-24-2025 11:42-0400 Systolic blood pressure 142 mm[Hg] [facility] Nurse [facility] 01-24-2025 11:21-0400 Body mass index (BMI) [Ratio] 32.01 kg/m2 [facility] Nurse [facility] 01-24-2025 11:21-0400 Body weight 87.26 kg [facility] Nurse [facility] 12-23-2024 13:51-0400 Body mass index (BMI) [Ratio] 31.35 kg/m2 Jaspreet Angie DO Work Phone: [facility] 12-23-2024 13:51-0400 Body weight 85.46 kg Jaspreet Angie DO Work Phone: [facility] 12-23-2024 13:51-0400 Diastolic blood pressure 78 mm[Hg] Jaspreet Angie DO Work Phone: [facility] 12-23-2024 13:51-0400 Systolic blood pressure 118 mm[Hg] Jaspreet Angie DO Work Phone: [facility] 08-11-2023 22:07-0500 Diastolic blood pressure 64 mm[Hg] PHYSICIAN NO [facility] 08-11-2023 22:07-0500 Heart rate 71 /min PHYSICIAN NO [facility] 08-11-2023 22:07-0500 Respiratory rate 18 /min PHYSICIAN NO [facility] 08-11-2023 22:07-0500 SaO2% (BldA) [Mass fraction] 99 % PHYSICIAN NO [facility] 08-11-2023 22:07-0500 Systolic blood pressure 126 mm[Hg] PHYSICIAN NO [facility] 08-11-2023 19:17-0500 Body height 170.18 cm PHYSICIAN NO [facility] 08-11-2023 19:17-0500 Body weight 80.73 kg PHYSICIAN NO [facility] Encounters Encounter Date Encounter Type Care Provider Facility Start: 06-02-2025 End: 06-02-2025 Clinisync Result Encounter Jaspreet Angie DO Work Phone: [facility] Unsolicited Start: 06-02-2025 End: 06-02-2025 Clinisync Result Encounter Jaspreet Angie DO Work Phone: [facility] Unsolicited Start: 06-02-2025 End: 06-02-2025 ambulatory WILLY AVILA Not Available Start: 06-02-2025 End: 06-02-2025 Office outpatient visit 15 minutes Willy Avila SPOT REMOVER Work Phone: [facility] Comment on above: 35 weeks gestation o f ([facility]); Third trimester ([facility]) Start: 05-26-2025 End: 05-26-2025 Clinisync Result Encounter [...] Bamboo flowsheet Deyanira KABA Work Phone: [facility] Start: 05-15-2025 End: 05-15-2025 Bamboo flowsheet Deyanira KABA Work Phone: [facility] Start: 05-15-2025 End: 05-15-2025 ambulatory DEYANIRA MCCLOUD Not Available Start: 05-15-2025 End: 05-15-2025 Office outpatient visit 15 minutes Deyanira KABA Work Phone: [facility] Comment on above: 33 weeks gestation o f ([facility]); Third trimester ([facility]); Gestational diabetes mellitus (GDM), antepartum, gestational diabetes method of control unspecified ([facility]) Start: 04-30-2025 End: 04-30-2025 Office outpatient visit 15 minutes Jaspreet Angie DO Work Phone: [facility] Comment on above: 31 weeks gestation o f ([facility]); Third trimester ([facility]); Gestational diabetes mellitus (GDM), antepartum, gestational diabetes method of control unspecified ([facility]) Start: 04-30-2025 End: 04-30-2025 ambulatory JASPREET ANGIE [...] incons istent with dates in second trimester ([facility]) (Primary Dx); Third trimester ([facility]); 29 weeks gestation of ([facility]) Start: 04-03-2025 End: 04-03-2025 Bamboo flowsheet Jaspreet Angie DO Work Phone: [facility] Start: 04-03-2025 End: 04-03-2025 Bamboo flowsheet Jaspreet Angie DO Work Phone: [facility] Start: 04-03-2025 End: 04-03-2025 ambulatory JASPREET ANGIE Not Available Start: 04-03-2025 End: 04-03-2025 Office outpatient visit 15 minutes Jaspreet Angie DO Work Phone: [facility] Comment on above: Second trimester pre gnancy ([facility]); 27 weeks gestation of ([facility]) Start: 03-28-2025 End: 03-28-2025 Chart abstracting Scanning Provider External [facility]- Medicine at [facility] Start: 03-21-2025 End: 03-21-2025 Clinisync Result [...] trimester pre gnancy ([facility]); 23 weeks gestation of ([facility]); Diabetes mellitus screening; Well woman exam with [...] 01-29-2025 End: 01-29-2025 Bamboo flowsheet Willy Avila SPOT REMOVER Work Phone: [facility] Start: 01-29-2025 End: 01-30-2025 Bamboo flowsheet Willy Avila SPOT REMOVER Work Phone: [facility] Start: 01-29-2025 End: 01-30-2025 External Result Encounter Willy Austin SPOT REMOVER Work Phone: [facility] External Department Unsolicited Start: 01-29-2025 End: 01-29-2025 ambulatory WILLY MARRUFOERLY Not Available Start: 01-29-2025 End: 01-29-2025 Office outpatient visit 15 minutes Willy Avila SPOT REMOVER Work Phone: [facility] Comment on above: Second trimester pre gnancy; 18 weeks gestation of Start: 01-24-2025 End: 01-24-2025 Office outpatient visit 5 minutes [facility] Angie Nurse [facility] Comment on above: GA: 17w3d Start: 01-24-2025 End: 01-24-2025 ambulatory JASPREET ANGIE Not Available Start: 01-06-2025 End: 01-06-2025 ambulatory Cristal Butt Marker Facility:[facility] Start: 01-06-2025 End: 01-06-2025 Departed Referred Cristal Marker DO Work Phone: [facility] Path Spec [facility] [...] 08-11-2023 Emergency department patient visit PHYSICIAN SASK[facility] Work Phone: Start: 03-03-2022 End: 03-03-[address] DOCTOR BARBOZA Facility:[facility] Start: 08-23-2021 End: 08-23-2021 ambulatory ADEOLA COHEN Facility:[facility] Procedures Date Procedure Procedure Detail Performing Clinician Start: 06-02-2025 Urnls dip stick/tabl et rgnt non-auto w/o micrscp Willy Avila NP Work Phone: Start: 06-02-2025 US OB BPP W NON-STRESS Jaspreet Angie DO Work Phone: Start: 05-26-2025 US OB BPP W NON-STRESS [...] Phone: Start: 03-05-2025 IGP,APTIMA HPV,AGE GDLN Jaspreet Parikho DO Work Phone: Start: 02-01-2025 Iaad ia hepatitis b surface antigen Not In System Ref Prov Start: 01-31-2025 BOX TEST Jaspreet terrell DO Work Phone: Start: 01-31-2025 Antibody rubella [...] URINARY TRACT INFECT ION (HTRX) Willy Avila SPOT REMOVER Work Phone: Start: 01-29-2025 Urnls dip stick/tabl et rgnt non-auto w/o micrscp Willy Avila SPOT REMOVER Work Phone: Start: 01-24-2025 Urnls dip stick/tabl [...] Treatment Date Care Activity Detail Author Start: 06-12-2025 End: 06-12-2025 Patient encounter procedure 06/12/2025 9:40 AM EDT Routine [facility] [address] [place] [id number] Jaspreet Adams DO [address] [place], [place] [id number] [facility] [place] [facility] Start: 06-02-2025 End: 06-02-2026 CULTURE, GROUP B STREP WITH SUSCEPTIBLITY CULTURE, GROUP B STREP WITH SUSCEPTIBLITY Lab Routine Third trimester ([facility]) Expected: 06/02/2025, Expires: 06/02/2026 [facility] Work Phone: Comment on above: Expected: 06/02/2025 , Expires: 06/02/2026 Start: 06-02-2025 End: 06-02-2025 Patient encounter procedure 06/02/2025 11:20 AM EDT Routine [facility] [address] [place] [id number] Willy Avila, SPOT REMOVER [address] [place] [id number] [facility] [place] [facility] Start: 04-30-2025 End: 10-28-2025 US biophysical profile w non stress test US biophysical profile w non stress test Imaging Routine Gestational diabetes mellitus (GDM), antepartum, gestational diabetes method of control unspecified ([facility]) Expected: 04/30/2025 (Approximate), Expires: 10/28/2025 [facility] Work Phone: Comment on above: Expected: 04/30/2025 (Approximate), Expires: 10/28/2025 Start: 04-28-2025 Influenza vaccination Influenza Vacc ine [facility] Start: 04-17-2025 End: 08-17-2025 US for US OB follow up transabdominal approach Imaging Routine Size of fetus inconsistent with dates in second trimester ([facility]) Expected: 04/17/2025, Expires: 08/17/2025 [facility] Work Phone: Comment on above: Expected: 04/17/2025 , Expires: 08/17/2025 Start: 04-17-2025 End: 04-17-2025 Patient encounter procedure 04/17/2025 9:50 AM EDT Routine [facility] [address] [place] [id number] Deyanira Mccloud PA [address] [place], [place] [id number] [facility] Start: 04-03-2025 End: 04-03-2025 ambulatory 04/03/2025 1:30 PM EDT Support Visit M[facility]- Medicine at [facility] [address] [place] [address] Rimma Richey RN [address] [facility], [address] [place] [address] Nikky Gonzalez, BLADE Brian, Consuelo, [place] [address] [place] [address] [facility] Start: 04-03-2025 End: 04-03-2025 Patient encounter procedure 04/03/2025 10:40 AM EDT Routine [facility] [address] [place] [phone] Jaspreet Adams DO [address] [place] [address] [facility] Start: 03-19-2025 End: 03-19-2025 Professional / ancillary services management 03/19/2025 9:30 AM EDT Ancillary Procedure [facility] [address] [place] [phone] [facility] Start: 03-05-2025 End: 03-05-2026 [...] [facility] [address] [place] [phone] Jaspreet Aadms, DO [address] [place] [address] Arrived [facility] Comment on above: Arrived Start: 02-27-2025 End: 02-27-2025 Patient encounter procedure 02/27/2025 8:50 AM EDT Routine [facility] [address] [place] [phone] Jaspreet Adams, DO [address] [place] [address] [facility] Start: 02-12-2025 End: 02-12-2025 Clinical Support 02/12/2025 9:00 AM EDT Clinical Support [facility] [address] [place] [phone] [facility] Start: 01-29-2025 End: 01-29-2025 Patient encounter procedure 01/29/2025 10:20 AM EDT Routine [facility] [address] [place] [phone] Willy Avila, SPOT REMOVER [address] [place] [address] [facility] Start: 01-24-2025 End: 01-24-2026 ABO/Rh ABO/Rh Lab Routine Missed menses , unspecified gestational age Expected: 01/24/2025 (Approximate), Expires: 01/24/2026 [facility] Comment on above: Expected: 01/24/2025 (Approximate), Expires: 01/24/2026 Start: 01-24-2025 End: 03-26-2025 Alpha fetoprotein, maternal Alpha fetoprotein, maternal Lab Routine Encounter for supervision of normal first in first trimester Expected: 01/24/2025 (Approximate), Expires: 03/26/2025 [facility] Comment on above: Expected: 01/24/2025 (Approximate), Expires: 03/26/2025 Start: 01-24-2025 End: 01-24-2026 Blood type and Indirect antibody screen panel - Blood Type and screen Lab Routine Missed menses , unspecified gestational age Expected: 01/24/2025 (Approximate), Expires: 01/24/2026 [facility] Work Phone: Comment on above: Expected: 01/24/2025 (Approximate), Expires: 01/24/2026 Start: 01-24-2025 End: 01-24-2026 Drugs of abuse panel - Urine by Screen method Rapid drug screen, urine Lab Routine , unspecified gestational age Encounter for supervision of normal first in first trimester Expected: 01/24/2025 (Approximate), Expires: 01/24/2026 [facility] Comment on above: Expected: 01/24/2025 (Approximate), Expires: 01/24/2026 Start: 01-10-2025 End: 01-10-2025 ambulatory 01/10/2025 9:30 AM EDT Initial [facility] [address] [place] [address] [facility] Start: 01-10-2025 End: 01-10-2025 Professional / ancillary services management 01/10/2025 9:00 AM EDT Ancillary Procedure [facility] [address] [place] [address] [facility] Start: 01-06-2025 Bacteria identified in Urine by Culture Urine Culture [facility] Start: 01-06-2025 Urine culture [facility] Start: 2018 Screening for malign ant neoplasm of cervix Pap Smear [facility] Start: 2016 DTaP,Tdap and Td Vaccines (1 - Tdap) DTaP,Tdap and Td Vaccines (1 - Tdap) [facility] Start: 12-07-2015 Adult BMI Screening Adult BMI Screen ing [facility] Start: 2009 Depression Screening Depression Scre ening [facility] Start: 2009 Tobacco Screening Tobacco Screening [facility] Bacteria identified in Urine by Culture Urine culture Microbiology Routine Missed menses Ordered: 01/24/2025 [facility] Comment on above: Ordered: 01/24/2025 Bacteria identified in Urine by Culture Urine culture Microbiology Routine Second trimester Ordered: 01/29/2025 [facility] Work Phone: Comment on above: Ordered: 01/29/2025 CBC W Auto Different ial panel - Blood CBC and differential Lab Routine Missed menses , unspecified gestational age Ordered: 01/24/2025 [facility] Comment on above: Ordered: 01/24/2025 Cytology Cervical or vaginal smear or scraping study Pap Smear Pathology and Cytology Routine Well woman exam with routine gynecological exam Ordered: 03/05/2025 [facility] Work Phone: Comment on above: Ordered: 03/05/2025 Hemoglobin A1c/Hemoglobin.total in Blood Hemoglobin A1c Lab Routine Missed menses , unspecified gestational age Ordered: 01/24/2025 [facility] Comment on above: Ordered: 01/24/2025 Hepatitis B virus surface Ag [Presence] in Serum or Plasma by Immunoassay Hepatitis B surface antigen Lab Routine Missed menses , unspecified gestational age Ordered: 01/24/2025 [facility] Comment on above: Ordered: 01/24/2025 Hepatitis C virus Ab [Presence] in Serum or Plasma by Immunoassay Hepatitis C antibody Lab Routine Missed menses , unspecified gestational age Ordered: 01/24/2025 [facility] Comment on above: Ordered: 01/24/2025 HIV-1/HIV-2 antigen/antibody combination immunoassay HIV-1 and HIV-2 antibodies Lab Routine Missed menses , unspecified gestational age Ordered: 01/24/2025 [facility] Comment on above: Ordered: 01/24/2025 Patient Education Head injury in adults Blunt Abdominal Trauma ED Blunt Chest Trauma ED [facility] Work Phone: Patient referral [facility] Work Phone: Reagin Ab [Presence] in Serum by RPR RPR Lab Routine Missed menses , unspecified gestational age Ordered: 01/24/2025 [facility] Comment on above: Ordered: 01/24/2025 Rubella antibody, IgG Rubella an tibody, IgG Lab Routine Missed menses , unspecified gestational age Ordered: 01/24/2025 [facility] Comment on above: Ordered: 01/24/2025 Immunizations Immunization Date Immunization Notes Care Provider Fa [facility] 08-11-2023 tetanus toxoid, redu christie diphtheria toxoid, and acellular pertussis vaccine, adsorbed PHYSICIAN NO [facility] Payers Date Payer Category Payer Private Health Insurance [facility] MEDICAID [id number] 2025 Self-pay [id number] 2024 Medicaid [id number] 2024 Medicaid [id number] 1997 Unknown [id number] 2.16.840.1.732314.3.579.2. 593 1997 Unknown [id number] 2.16.840.1.913430.3.579.2. 593 1997 Unknown [id number] 2.16.840.1.469005.3.579.2. 9 1997 Unknown [id number] 2.16.840.1.867252.3.579.2. 1258 1997 Unknown [id number] 2.16.840.1.092481.3.579.2. 1258 1997 Unknown [id number] 2.16.840.1.972754.3.579.2. 1258 1997 Unknown [id number] 2.16.840.1.306883.3.579.2. 1258 1997 Unknown [id number] 2.16.840.1.343291.3.579.2. 1258 1997 Unknown [id number] 2.16.840.1.727431.3.579.2. 1258 1997 Unknown [id number] 2.16.840.1.541928.3.579.2. 1258 1997 Unknown [id number] 2.16.840.1.610353.3.579.2. 9 1997 Unknown [id number] 2.16.840.1.824533.3.579.2. 1258 1997 Unknown [id number] 2.16.840.1.667998.3.579.2. 1258 1997 Unknown [id number] 2.16.840.1.773329.3.579.2. 1258 1997 Unknown [id number] 2.16.840.1.729278.3.579.2. 1259 1959 Unknown [id number] Unknown Regular Auto/Liability [id number] Unknown HCAP/HFA/FAP Active [id number] Unknown [id number] 2.16.840.1.256695.3.579.2. 531 Unknown Regular Auto/Liability [id number] Unknown HCAP/HFA/FAP Active [id number] Social History Date Type Detail Facility Start: 08-11-2023 End: 08-11-2023 Tobacco smoking status NHIS Never smoked tobacco (finding) [facility] Start: 1995 Sex Assigned At Female F [facility] Tobacco smoking stat [facility] Tobacco smoking consumption unknown [facility] Start: 12-22-2024 Gender identity Identifies as female gender (finding) [facility] Start: 05-26-2025 Sexual orientation Not on file [facility] Work Phone: Start: 01-07-2025 End: 03-26-2025 Sex Female (finding) [facility] Start: 10-08-2024 [facility] Start: 1995 Sex assigned at Not on file [facility] Start: 05-26-2025 History of Social function [facility] Work Phone: Medical Equipment Procedure Code Equipment Code Equipment Origin al Text Equipment Identifier Dates 1 strip by In Vi tro route Daily Use in the morning prior to breakfast, 1 hour after each meal for a total of 4times daily. [id number] Start: 03-24-2025 End: 04-23-2025 1 each by In Vit ro route Daily Use to check FSBS four times daily [id number] Start: 03-24-2025 End: 04-23-2025 Clinical Notes 12-23-2024 to 06-02-2025 Willy Avila NP - 06/02/2025 11:20 AM SENDY Pascual - 05/15/2025 9:50 AM Dina Pendleton LPN - 04/30/2025 3:00 PM SENDY Pascual - 04/17/2025 9:50 AM EDT Note Date & Type Note Facility 06-02-2025 History of Present illness Narrative Reason for Appointment: Patient ID: Chente Gonzalez is a 29 y.o. female who presents for Routine Visit (35w 6d) Patient presents today for Return OB appointment. MEDICATIONS Current Outpatient Medications Medication Instructions Alcohol Swabs (Alcohol Prep Pad) 70 % pads 1 Pad, Topical, Daily, Use four times daily to check FSBS. Blood Glucose Monitoring Suppl (IntroFly Glucometer) w/Device kit 1 kit, Does not [...] nursing note reviewed. Exam conducted with a assembly adjuster present. Vitals: Estimated body mass index is 37.28 kg/m as calculated from the following: Height as of 12/01/20: 5' 5 . Weight as of this encounter: 224 lb. BP: 126/80 Patient's last menstrual period was 10/04/2024 (approximate). ASSESSMENT & PLAN ICD-10-CM 1. 35 weeks gestation of ([facility]) Z3A.35 POCT urinalysis dipstick manually resulted 2. Third trimester ([facility]) Z34.93 CULTURE, GROUP B STREP WITH SUSCEPTIBLITY [...] Willy Avila NP documented in this encounter [facility] 05-15-2025 History of Present illness Narrative Reason [...] PLAN ICD-10-CM 1. 33 weeks gestation of ([facility]) Z3A.33 POCT urinalysis dipstick manually resulted 2. Third trimester ([facility]) Z34.93 POCT urinalysis dipstick manually resulted 3. Gestational diabetes mellitus (GDM), antepartum, gestational diabetes method of control unspecified ([facility]) O24.419 Return OB: Patient presents today for [...] of: SENDY Fan documented in this encounter [facility] 04-30-2025 History of Present illness Narrative Reason [...] nursing note reviewed. Exam conducted with a assembly adjuster present. Vitals: Estimated body mass index is 35.01 kg/m as calculated from the following: Height as of 12/01/20: 5' 5 . Weight as of this encounter: 210 lb 6.4 oz. BP: 120/70 Patient's last menstrual period was 10/04/2024 (approximate). ASSESSMENT & PLAN ICD-10-CM 1. 31 weeks gestation of ([facility]) Z3A.31 POCT urinalysis dipstick manually resulted 2. Third trimester ([facility]) Z34.93 POCT urinalysis dipstick manually resulted 3. Gestational diabetes mellitus (GDM), antepartum, gestational diabetes method of control unspecified ([facility]) O24.419 US biophysical profile w non stress [...] Jaspreet Adams DO documented in this encounter [facility] 04-17-2025 History of Present illness Narrative Reason for Appointment: Patient ID: Chente Gonzalez is a 29 y.o. female who presents for No chief complaint on file. Patient presents today for Return OB appointment. MEDICATIONS Current Outpatient Medications Medication Instructions Alcohol Swabs (Alcohol Prep Pad) 70 % pads 1 Pad, Topical, Daily, Use four times daily to check FSBS. Blood Glucose Monitoring Suppl (IntroFly Glucometer) w/Device kit 1 kit, Does not [...] ASSESSMENT & PLAN ICD-10-CM 1. Third trimester ([facility]) Z34.93 POCT urinalysis dipstick manually resulted 2. 29 weeks gestation of ([facility]) Z3A.29 POCT urinalysis dipstick manually resulted Return [...] of: SENDY Fan documented in this encounter [facility] 04-03-2025 History of Present illness Narrative Reason for Appointment: Patient ID: Chente Gonzalez is a 29 y.o. female who presents for Routine Visit Patient presents today for Return OB appointment. MEDICATIONS Current Outpatient Medications Medication Instructions Alcohol Swabs (Alcohol Prep Pad) 70 % pads 1 Pad, Topical, Daily, Use four times daily to check FSBS. Blood Glucose Monitoring Suppl (IntroFly Glucometer) w/Device kit 1 kit, Does not [...] nursing note reviewed. Exam conducted with a assembly adjuster present. Vitals: Estimated body mass index is 33.35 kg/m as calculated from the following: Height as of 21: 5' 5 . Weight as of this encounter: 200 lb 6.4 oz. BP: 130/72 Patient's last menstrual period was 10/04/2024 (approximate). ASSESSMENT & PLAN ICD-10-CM 1. Second trimester ([facility]) Z34.92 Urine dip 2. 27 weeks gestation of ([facility]) Z3A.27 Urine dip Patient presents today for a routine obstetrics appointment. Patient is currently 27w2d with a Estimated Date of Delivery: 07/01/25. Patient brought in FSBS logs for review and patient still desires to hold off on [facility] referral at this time, referral was previously sent on 03/24/25 and when contacted by [facility] patient will inform them that she will postpone scheduling at this time. Patient to return to clinic in 2 weeks for routine OB appointment. Documented by Nissa Matt LPN on behalf of: Jaspreet Adams DO documented in this encounter [facility] 03-05-2025 History of Present illness Narrative Reason [...] nursing note reviewed. Exam conducted with a assembly adjuster present. Vitals: Estimated body mass index is 31.62 kg/m as calculated from the following: Height as of 12/01/20: 5' 5 . Weight as of this encounter: 190 lb. BP: 128/78 Patient's last menstrual period was 10/04/2024 (approximate). ASSESSMENT & PLAN ICD-10-CM 1. Second trimester ([facility]) Z34.92 POCT urinalysis dipstick manually resulted 2. 23 weeks gestation of ([facility]) Z3A.23 3. Diabetes mellitus screening Z13.1 CBC [...] Jaspreet Adams DO documented in this encounter [facility] 01-29-2025 History of Present illness Narrative Reason [...] nursing note reviewed. Exam conducted with a assembly adjuster present. Vitals: Estimated body mass index is [...] Willy Avila NP documented in this encounter [facility] 01-24-2025 History of Present illness Narrative Reason [...] or undercooked meat, and stay away from [facility]. Patient has also been advised to not [...] Kalyn Jacob MA documented in this encounter [facility] 12-23-2024 History of Present illness Narrative Reason [...] nursing note reviewed. Exam conducted with a assembly adjuster present. Vitals: Estimated body mass index is [...] Evaluation note No assessment inform ation available [facility] Work Phone: Evaluation note [...] [facility] Diagnosis 35 weeks gestation of ([facility]) Third trimester ([facility]) state, incidental documented in this encounter [facility] HealthcareInstructionsNot on filedocumented in [facility] Purpose Family History No Family History [...] section and content) DATE CREATED AUTHOR 06/25/2019 [facility] DATE CREATED AUTHOR AUTHOR'S ORGANIZ ATION 06/07/2022 [facility] DATE CREATED AUTHOR AUTHOR'S ORGANIZ ATION 01/09/2025 [facility] DATE CREATED AUTHOR AUTHOR'S ORGANIZ ATION 06/04/2025 [facility] EPIC Care Teams (unrecognized sec [...] Reason Comments Amenorrhea Reason Comments Routine Visit Reason Comments Routine Visit 35w 6d FOR RECORDS PERTAINING TO PATIENTS WHO ARE [...] BE BASED ON THE PRIMARY CLINICAL RECORDS. [facility] [place] [employer] [facility]. provides no warranty or guarantee of the accuracy or completeness of information in this document.
[2025-06-05 14:49] VITALS: BP 145/96; PULSE 99; TEMP 37.1; O2SAT 95; BMI 36.2
--- NOTE | 2025-06-05 15:10 | ED.GENADUL1 ---
HPI HPI - General Adult General Chief complaint: Fever Stated complaint: FEVER, SORE THROAT, COUGH Time Seen by Provider: 06/05/25 14:51 Source: patient Mode of arrival: walk-in Limitations: no limitations History of Present Illness HPI narrative: Patient is a 29-year-old female that presents to the emergency department with complaints of fever, cough, nasal congestion, left ear pain, and sore throat that started yesterday. She states that she took her temperature and the highest was 102. She did have some muscle aches as well. She is almost [address] had [address] Dr. Adams's office to update them and they recommended being evaluated in the emergency department. She states that she did vomit a little bit this morning but denies nausea at this time. She denies any other episodes of vomiting and denies diarrhea. She reports normal movement. She has not had any vaginal bleeding or loss of fluids. Related Data Previous Rx's ?Medication ?Instructions ?Recorded ondansetron 4 mg disintegrating 4 mg PO TID PRN nausea and 11/15/24 tablet vomiting 20 days #30 tabs promethazine 25 mg tablet 25 mg PO BID PRN nausea and 12/08/24 vomiting #7 tabs pantoprazole 40 mg tablet,delayed 40 mg PO DAILY #30 tabs 12/12/24 release (Protonix) potassium chloride 20 mEq 20 meq PO TID #90 tabs 12/12/24 tablet,extended release promethazine 25 mg rectal 25 mg TX Q4H PRN nausea and 12/12/24 suppository vomiting #36 ea promethazine 25 mg tablet 25 mg PO Q4H PRN nausea and 12/12/24 vomiting #20 tabs metoclopramide HCl 10 mg tablet 10 mg PO Q8H PRN nausea and 01/04/25 (Reglan) vomiting #20 tabs labetalol 200 mg tablet 200 mg PO BID 30 days #60 tabs 05/19/25 Allergies Allergy/AdvReac Type Severity Reaction Status Date / Time Penicillins Allergy Unknown Verified 06/05/25 14:55 Opioid HPI Opioid Management Most Recent Opioid Data: Last Pain Scale 5 Today, 15:10 Last ORT Total Score 4 12/11/24, 16:31 Last ORT Risk Category Moderate Risk 12/11/24, 16:31 Urine Cannabinoids, (.) Positive A 01/31/25, 15:15 Ur Phencyclidine Scrn, (NEGATIVE) Negative 01/31/25, 15:15 Review of Systems ROS Status of ROS 10 or more systems reviewed and unremarkable except as noted in history and below [facility] Medical History (Updated 06/05/25 @ 15:49 by SENDY Olea) Hyperemesis gravidarum ?O21.0 - Mild hyperemesis gravidarum (ICD-10) Hypokalemia ?E87.6 - Hypokalemia (ICD-10) ?Z34.90 - Encounter for supervision of normal , unspecified, unspecified trimester (ICD-10) Acute hypokalemia ?E87.6 - Hypokalemia (ICD-10) Social History Highest level of school completed/degree received: high school graduate Little interest or pleasure in doing things: not at all Feeling down, depressed, or hopeless: not at all Exam Narrative Exam Narrative: General: No distress, age-appropriate Skin: Warm, dry, no pallor. No rash. Head: Normocephalic, atraumatic. Neck: Supple, non-tender. Eye: Pupils are equal, round and EOMI. No scleral icterus. Ears, Nose, Mouth, and Throat: TMs visualized bilaterally, nonbulging, ear canals with erythema, no nasal mucosal hypertrophy. Oral mucosa is moist, mild oropharynx erythema, no tonsillar exudates, uvula is mid-line Cardiovascular: Regular Rate and Rhythm without murmur, gallop or rub. Respiratory: No accessory muscle use or respiratory distress. Lungs are clear to auscultation, no wheezing, rales or rhonchi Chest Wall: no tenderness Back: No midline thoracic or lumbar vertebral tenderness. Musculoskeletal: Full ROM of all extremities, no calf or popliteal tenderness GI: Abdomen is soft, gravid, non tender to palpation. No masses appreciated. No rebound, guarding, or rigidity noted. Neurological: A&O x4. No cranial nerve dysfunction observed. No truncal ataxia. Moves all extremities. Sensation intact. Psychiatric: Cooperative and interactive. Normal mood and affect. Constitutional Vital Signs, click to edit/add: Last Vital Signs Temp 98.8 F 06/05/25 14:49 Pulse 85 06/05/25 16:22 Resp 18 06/05/25 16:22 BP 156/93 H 06/05/25 16:22 Pulse Ox 99 06/05/25 16:22 O2 Del Method Room Air 06/05/25 16:22 Documenting provider has reviewed patient's vital signs: yes Course Vital Signs Vital signs: Vital Signs Temperature 98.8 F 06/05/25 14:49 Pulse Rate 99 H 06/05/25 14:49 Respiratory Rate 16 06/05/25 14:49 Blood Pressure 145/96 H 06/05/25 14:49 Pulse Oximetry 95 06/05/25 14:49 Oxygen Delivery Method Room Air 06/05/25 14:49 Temperature 98.8 F 06/05/25 14:49 Pulse Rate 85 06/05/25 16:22 Respiratory Rate 18 06/05/25 16:22 Blood Pressure 156/93 H 06/05/25 16:22 Pulse Oximetry 99 06/05/25 16:22 Oxygen Delivery Method Room Air 06/05/25 16:22 Medical Decision Making MDM Narrative Medical decision making narrative: This is a 29-year-old female who is 36 weeks and 5 days that presented to the emergency department on recommendations by her OB office after she started getting upper respiratory infection symptoms yesterday to include cough, nasal congestion, ear pain, fever with Tmax 102, muscle aches, and sore throat. She reports normal movement, denies vaginal bleeding or loss of fluids. On arrival patient is in no distress, nontoxic-appearing. Gravid abdomen. Vitals are stable, BP is hypertensive. Temperature is afebrile 98.8. No respiratory distress, on 9 9% O2 saturation on room air. Doppler heart tones 144 bpm. COVID-19, influenza A/B, and strep a swabs taken. COVID-19 positive. I discussed results with patient. heart tones were evaluated in the ED and were reassuring at 144 bpm. No signs of distress or labor. Patient remains well-appearing, oxygenating adequately on room air, tolerating PO intake, and has not had recurrent vomiting or dehydration. Ear pain is likely viral-related and not consistent with bacterial otitis media upon exam. Given stable maternal and status, lack of hypoxia or signs of lower respiratory tract involvement, and ability to tolerate oral intake, the patient is deemed appropriate for outpatient management with supportive care. Risks, signs of worsening illness, labor precautions, and infection control measures were thoroughly discussed. The patient was instructed to follow up closely with her OB provider (Dr. Adams) and to return immediately for any warning signs, including decreased movement, shortness of breath, persistent vomiting, or signs of labor. No antibiotics, antivirals, or other medications are indicated at this time. Differential Diagnosis Differential Diagnosis: Viral URI, influenza, COVID-19, streptococcal pharyngitis Lab Data Lab results reviewed: Yes I reviewed the patient's lab results Labs: Lab Results 06/05/25 Range/Units 15:00 Influenza Type A Ag Negative Influenza Type B Ag Negative SARS-CoV-2 Ag (CV2AG) Positive A (NEGATIVE) Streptococcus Screen Negative Discharge Plan Discharge Chief Complaint: Fever Clinical Impression: COVID-19 affecting in third trimester Patient Disposition: Home, Self-Care Time of Disposition Decision: 15:46 Condition: Good Mode of Transportation: Private Vehicle Prescriptions / Home Meds: No Action labetalol 200 mg tablet 200 mg PO BID 30 Days Qty: 60 0RF ondansetron 4 mg tablet,disintegrating 4 mg PO TID PRN (Reason: nausea and vomiting) 20 Days Qty: 30 0RF promethazine 25 mg tablet 25 mg PO BID PRN (Reason: nausea and vomiting) Qty: 7 0RF pantoprazole [Protonix] 40 mg tablet,delayed release (DR/EC) 40 mg PO DAILY Qty: 30 11RF potassium chloride 20 mEq tablet extended release 20 meq PO TID Qty: 90 11RF promethazine 25 mg tablet 25 mg PO Q4H PRN (Reason: nausea and vomiting) Qty: 20 0RF promethazine 25 mg suppository 25 mg TX Q4H PRN (Reason: nausea and vomiting) Qty: 36 0RF metoclopramide HCl [Reglan] 10 mg tablet 10 mg PO Q8H PRN (Reason: nausea and vomiting) Qty: 20 0RF Print Language: Cambodian Instructions: How to Recover from COVID-19 at Home (ED) Additional Instructions: Treatment & Home Care: Rest: Get plenty of rest and avoid strenuous activity. Hydration: Drink fluids frequently to stay hydrated. Fever/Body Aches: Take acetaminophen (Tylenol) 650?1000 mg every 6 hours as needed (do not exceed 3,000 mg/day). Nasal congestion/sore throat: Use saline nasal spray, warm salt water gargles, throat lozenges, and a humidifier if available. Vomiting: If this continues, use OB-approved anti-nausea medication. Monitor movements: You should feel the baby move several times an hour. Call your OB if you notice decreased movement. Warning Signs ? Seek Immediate Medical Attention If You Experience: Shortness of breath or difficulty breathing Chest pain or persistent pressure Confusion or difficulty waking up High fever not responding to acetaminophen Vomiting that prevents you from keeping fluids down Vaginal bleeding or leaking of fluid Painful or regular contractions (possible signs of labor) Decreased movement COVID-19 Isolation Guidance (Per CDC & [facility] Dept.): Stay home and isolate for at least 5 full days from symptom onset. Wear a mask around others for 10 days from symptom onset. You can end isolation after 5 days if symptoms are improving and you are fever-free for 24 hours without medication. Avoid contact with elderly or immunocompromised individuals during your isolation period. Referrals: Jaspreet Adams DO [Physician, PATTERN CHAIN MAKER SUPERVISOR] - 1 week Referral Note: Called to see if their office is okay with you following up Monday for your regularly scheduled appointment Physician,Non-Staff, [Primary Care Provider] - 1 week Discharge Date/Time: 06/05/25 16:25
[2025-06-05 15:31] LABS: SARS-CoV-2 Ag POSITIVE (NEGATIVE)
[2025-06-05 16:22] VITALS: BP 156/93; PULSE 85; O2SAT 99
== END 2025-06-05 16:25 | disposition home or self-care (01) ==
PROVIDERS: Physician Assistant; Emergency Provider Student in an Organized Health Care Education/Training Program
DX: O98.513 Other viral diseases complicating pregnancy, third trimester (principal); U07.1 COVID-19; Z3A.36 36 weeks gestation of pregnancy
CPT/HCPCS: 87070; 87804; 87811; 87880; 99285

== ENCOUNTER 2025-06-12 11:00 | Outpatient (OUT) | payer OTHER, SELFPAY ==
[2025-06-12 11:06] VITALS: BP 133/74; PULSE 78
--- OUTSIDE RECORDS SUMMARY | 2025-06-12 11:06 | XMS_ITS | CCD ---
Author Organization [facility] Care Team Providers Care Human Resources Coordinator Name Role Phone ADEOLA COHEN Admitting Unavailable [...] Admitting Unavailable Marker Cristal STANLEY Attending Provider [phone] Unavailable Primary Care Provider Unavailabl JASPREET Beltran [...] Penicillins Drug allergy (disorder) 09-28-2014 [facility] Repository (20 sources) Penicillins Drug Allergy 12-23-2024 [facility] Healthcare (1 source) Penicillins Drug allergy (disorder) 02-22-2022 [facility] Repository (5 sources) Penicillin G Drug Allergy 06-02-2025 Unknown [facility] Medications Current Medications Medication Drug Class(es) Dates Sig (Normalized) Sig (Original) Blood Glucose Monitoring Suppl (D-Care Glucometer) w/Device kit (20 sources) Start: 03-24-2025 End: 03-24-2026 Blood Glucose Monitoring Suppl (D-Care Glucometer) w/Device kit Indications: Gestational diabetes mellitus (GDM), antepartum, gestational diabetes method of control unspecified ([facility]) , Elevated glucose tolerance test 1 kit [...] Active isopropyl alcohol 0.7 ml/ml medicated pad (20 sources) Start: 03-24-2025 Alcohol Swabs (Alcohol Prep Pad) 70 % pads Indications: Gestational diabetes mellitus (GDM), antepartum, gestational diabetes method of control unspecified ([facility]) , Elevated glucose tolerance test Apply 1 [...] 25 mg supposito ry Discontinued 25 MG KS Q6H as needed for nausea and vomiting [...] Drug Class(es) Dates Sig (Normalized) Sig (Original) [id number] 200 actuat albuterol 0.09 mg/actuat metered dose [...] D2) 1,250 mcg (50,000 unit) Capsule Discontinued 21584 UNIT PO every week 4 December 27, [...] 08-11-2023 Episodic Other and delivery including normal (18 sources) ; Translations: [Encounter for supervision of [...] [35 weeks gestation of ] 06-02-2025 Episodic Residual codes; unclassified (2 sources) Gestation period, 37 weeks; Translations: [37 weeks gestation of ] 06-12-2025 Episodic Sprains and strains (2 sources) Strain [...] Range Facility Urinalysis macro (dipstick) panel (U)on 06-12-2025 Bilirubin, UA Negative Negative - 4(70) +++ mg/dL [facility] Blood, UA Positive Negative - 50 Derick/mcL [facility] Comment on above: Trace Clarity, UA Clear [facility] Color, UA Yellow [facility] Glucose, UA Negative Negative - 2000(110) ++++ mg/dL [facility] Interpretation and review of laboratory results Abnormal [facility] Ketones, UA Negative Negative - 160(16) ++++ mg/dL [facility] Leukocytes, UA Negative Negative - 500+++ Julio/mcL [facility] Nitrite, UA Negative Negative - Positive [facility] pH, UA 6.0 5 - 9 [facility] Protein, UA Positive Negative - 2000(20) ++++ mg/dL [facility] Comment on above: Trace Spec Grav, UA 1.020 1 - 1.03 [facility] Urobilinogen, UA 0.2 0.2 - 12 mg/dL [facility] US OB BPP W NON-STRESS on 06-02-[address] [address] Ultrasound Report Signed Patient: CHENTE GONZALEZ MR#: [id number] : 1995 Acct:[id number] Age/Sex: 29 / F ADM Date: 06/02/25 Loc: [facility] 250-[address]: Jaspreet Adams D.O. Ordering Physician: Jaspreet Adams D.O. Date of Service: 06/02/25 Procedure(s): US OB BPP w non-stress Accession Number(s): [id number] cc: Jaspreet Adams D.O.; Physician,Non-Staff Alejandra The [place] [address] Patient Name: CHENTE GONZALEZ MRN: [facility]:[id number] date: 1995 Sex: F Assigned Patient Location: [facility] Current Patient Location: [facility] Accession/Order Number: [id number] Exam Date: 06/02/2025 10:22 Report Date: 06/02/2025 10:52 At the request of: JASPREET ADAMS DO Procedure: US OB BPP w non-stress Biophysical profile. Reason for exam: Gestational diabetes COMPARISON: 05/26/2025 TECHNIQUE: Transabdominal imaging of the gravid uterus was obtained. FINDINGS: The veterinary anatomist reports a BPP of 8 out of 8. DOYLE is normal at 8.9 cm. heart rate 124 bpm. US/US OB BPP w non-stress IMPRESSION: BPP 8 out of 8. Impression dictated by: Ramana Raza Jr., D.O. 06/02/2025 10:52 AM Dictation Location: [place] [address] Electronically authenticated by: [id number] Y Date: 06/02/2025 10:52 Dictated By: Ramana Raza M.D. Signed By: 06/02/25 1054 DD/ 105 TD/TT: Police Surgeon: [facility] Radiology, Peggyogval vanegas MD - 06/02/2025 [place] [address] Ultrasound Report Signed Patient: CHENTE GONZALEZ MR#: [id number] : 1995 Acct:[id number] Age/Sex: 29 / F ADM Date: 06/02/25 Loc: [facility] 250-[address]: Jaspreet Adams D.O. Ordering Physician: Jaspreet Adams D.O. Date of Service: 06/02/25 Procedure(s): US OB BPP w non-stress Accession Number(s): [id number] cc: Jaspreet Adams D.O.; Physician,Non-Staff Aeljandra [place] [address] Patient Name: CHENTE GONZALEZ MRN: [id number] date: 1995 Sex: F Assigned Patient Location: [facility] Current Patient Location: [facility] Accession/Order Number: [id number] Exam Date: 06/02/2025 10:22 Report Date: 06/02/2025 10:52 At the request of: JASPREET ADAMS DO Procedure: US OB BPP w non-stress Biophysical profile. Reason for exam: Gestational diabetes COMPARISON: 05/26/2025 TECHNIQUE: Transabdominal imaging of the gravid uterus was obtained. FINDINGS: The veterinary anatomist reports a BPP of 8 out of 8. DOYLE is normal at 8.9 cm. heart rate 124 bpm. US/US OB BPP w non-stress IMPRESSION: BPP 8 out of 8. Impression dictated by: Ramana Raza Jr., D.O. 06/02/2025 10:52 AM Dictation Location: [place] [address] Electronically authenticated by: [id number] Y Date: 06/02/2025 10:52 Dictated By: Ramana Raza M.D. Signed By: 06/02/25 1054 DD/ 105 TD/TT: Police Surgeon: [facility] Radiology Study observation (narrative) [facility] US OB BPP W NON-STRESS Ordered By: Radiologist Radiology on 06-02-2025 [facility] Work Phone: Urinalysis [...] mg/dL [facility] Leukocytes, UA 3+ Negative - 500+++ Julio/mcL [facility] Nitrite, UA Negative Negative - Positive [facility] pH, UA 6.5 5 - 9 [facility] Protein, UA Trace Negative - 1999(20) ++++ mg/dL [facility] Spec Grav, UA 1.01 1 - 1.03 [facility] Urobilinogen, UA 2.0 0.2 - 12 mg/dL [facility] Healthcare US OB BPP W NON-STRESS on 05-26-2025 [place] [address] Ultrasound Report Signed Patient: CHENTE GONZALEZ MR#: [id number] : 1995 Acct:[id number] Age/Sex: 29 / F ADM Date: 05/26/25 Loc: US Attending Dr: Jaspreet Adams D.O. Ordering Physician: Jaspreet Adams D.O. Date of Service: 05/26/25 Procedure(s): US OB BPP w non-stress Accession Number(s): [id number] cc: Jaspreet Adams D.O.; Physician,Non-Staff M.DPeggy The [place] [id number] Patient Name: CHENTE GONZALEZ MRN: [id number] date: 1995 Sex: F Assigned Patient Location: [facility] Current Patient Location: Accession/Order Number: [id number] Exam Date: 05/26/2025 10:05 Report Date: 05/26/2025 [...] Mae M.D. 05/26/2025 11:39 AM Dictation Location: [place] [address] Electronically authenticated by: [id number] Y Date: 05/26/2025 11:39 Dictated By: Rahel Mae M.D. Signed By: 05/26/25 1142 DD/ 1139 TD/TT: Police Surgeon: [facility] Radiology, Peggyogval vanegas MD - 05/26/2025 [place] [address] Ultrasound Report Signed Patient: CHENTE GONZALEZ MR#: [id number] : 1995 Acct:[id number] Age/Sex: 29 / F ADM Date: 05/26/25 Loc: US Attending Dr: Jaspreet Adams D.O. Ordering Physician: Jaspreet Adams D.O. Date of Service: 05/26/25 Procedure(s): US OB BPP w non-stress Accession Number(s): [id number] cc: Jaspreet Adams D.O.; Physician,Non-Staff Alejandra The [place] [id number] Patient Name: CHENTE GONZALEZ MRN: [facility]:[id number] date: 1995 Sex: F Assigned Patient Location: [facility] Current Patient Location: Accession/Order Number: [id number] Exam Date: 05/26/2025 10:05 Report Date: 05/26/2025 [...] Mae M.D. 05/26/2025 11:39 AM Dictation Location: [place] [address] Electronically authenticated by: [id number] Y Date: 05/26/2025 11:39 Dictated By: Rahel Mae M.D. Signed By: 05/26/25 1142 DD/ 1139 TD/TT: Police Surgeon: [facility] Radiology Study observation (narrative) [facility] US OB BPP W NON-STRESS Ordered By: Radiologist Radiology on 05-26-2025 [facility] [employer] Work Phone: US AMNIOTIC FLUID VOLUMEon 0 05-20-2025 [place] [address] Ultrasound Report Signed Patient: CHENTE GONZALEZ MR#: [id number] : 1995 Acct:[id number] Age/Sex: 29 / F ADM Date: 05/20/25 Loc: [place] [address]-[address]: Jaspreet Adams D.O. Ordering Physician: Jaspreet Adams D.O. Date of Service: 05/20/25 Procedure(s): US OB amniotic fluid vol Accession Number(s): [id number] cc: Jaspreet Adams D.O.; Physician,Non-Staff Alejandra The [address] [id number] Patient Name: CHENTE GONZALEZ MRN: [facility]:[id number] date: 1995 Sex: F Assigned Patient Location: [facility] Current Patient Location: US Accession/Order Number: [id number] Exam Date: 05/20/2025 11:10 Report Date: 05/20/2025 11:33 At the request of: JASPREET ADAMS DO Procedure: US OB amniotic fluid vol ULTRASOUND OB AMNIOTIC FLUID VOLUME CLINICAL DATA: Oligohydramnios COMPARISON: [facility] [place] 05/17/2025 There is a single live intrauterine [...] Mae M.D. 05/20/2025 11:33 AM Dictation Location: [place] [address] Electronically authenticated by: [id number] Y Date: 05/20/2025 11:33 Dictated By: Rahel Mae M.D. Signed By: 05/20/25 1136 DD/ 1133 TD/TT: Police Surgeon: [facility] RadiologyPeggyogavl vanegas MD - 05/20/[address] [address] Ultrasound Report Signed Patient: CHENTE GONZALEZ MR#: [id number] : 1995 Acct:[id number] Age/Sex: 29 / F ADM Date: 05/20/25 Loc: [facility] 250-[address]: Jaspreet Adams D.O. Ordering Physician: Jaspreet Adams D.O. Date of Service: 05/20/25 Procedure(s): US OB amniotic fluid vol Accession Number(s): [id number] cc: Jaspreet Adams D.O.; Physician,Non-Staff Alejandra [place] [address] Patient Name: CHENTE GONZALEZ MRN: [id number] date: 1995 Sex: F Assigned Patient Location: [facility] Current Patient Location: Accession/Order Number: [id number] Exam Date: 05/20/2025 11:10 Report Date: 05/20/2025 [...] Mae M.D. 05/20/2025 11:33 AM Dictation Location: [place] [address] Electronically authenticated by: [id number] Y Date: 05/20/2025 11:33 Dictated By: Rahel Mae M.D. Signed By: 05/20/25 1136 DD/ 1133 TD/TT: Police Surgeon: [facility] Radiology Study observation (narrative) [facility] US AMNIOTIC FLUID VOLUMEOrde red By: Radiologist Radiology on 05-20-2025 [facility] Work Phone: US OB BPP W NON-STRESS on 05-19-2025 The [place] [id number] Ultrasound Report Signed Patient: CHENTE GONZALEZ MR#: [id number] : 1995 Acct:[id number] Age/Sex: 29 / F ADM Date: 05/19/25 Loc: [facility] 250-[address]: Jaspreet Adams D.O. Ordering Physician: Jaspreet Adams D.O. Date of Service: 05/19/25 Procedure(s): US OB BPP w non-stress Accession Number(s): [id number] cc: Jaspreet Adams D.O.; Physician,Non-Staff Alejandra [place] [address] Patient Name: CHENTE GONZALEZ MRN: [id number] date: 1995 Sex: F Assigned Patient Location: [facility] Current Patient Location: [facility] Accession/Order Number: [id number] Exam Date: 05/19/2025 10:15 Report Date: 05/19/2025 [...] is below the 5th percentile. Total score: 8/ US/US OB BPP w non-stress IMPRESSION: NORMAL BIOPHYSICAL PROFILE. OLIGOHYDRAMNIOS. Impression dictated by: Rahel Mae M.D. 05/19/2025 10:54 AM Dictation Location: [employer] Electronically authenticated by: [id number] Y Date: 05/19/2025 10:54 Dictated By: Rahel Mae M.D. Signed By: 05/19/25 1056 DD/ 1054 TD/TT: Police Surgeon: [facility] Radiology, Radiologval vanegas MD - 05/19/2025 [place] [address] Ultrasound Report Signed Patient: CHENTE GONZALEZ MR#: [id number] : 1995 Acct:[id number] Age/Sex: 29 / F ADM Date: 05/19/25 Loc: [facility] 250-[address]: Jaspreet Adams D.O. Ordering Physician: Jaspreet Adams D.O. Date of Service: 05/19/25 Procedure(s): US OB BPP w non-stress Accession Number(s): [id number] cc: Jaspreet Adams D.O.; Physician,Non-Staff Alejandra The [place] [id number] Patient Name: CHENTE GONZALEZ MRN: [facility]:[id number] date: 1995 Sex: F Assigned Patient Location: [facility] Current Patient Location: [facility] Accession/Order Number: [id number] Exam Date: 05/19/2025 10:15 Report Date: 05/19/2025 [...] Mae M.D. 05/19/2025 10:54 AM Dictation Location: [employer] Electronically authenticated by: [id number] Y Date: 05/19/2025 10:54 Dictated By: Rahel Mae M.D. Signed By: 05/19/25 1056 DD/ 1054 TD/TT: Police Surgeon: [facility] Radiology Study observation [...] Urobilinogen, UA 1.0 0.2 - 12 mg/dL [facility], 1928[facility]1983 US OB FOLLOW UP TRANSABDOMIN AL APPROACHon [...] Urobilinogen, UA 1.0 0.2 - 12 mg/dL [facility] Urinalysis macro (dipstick) panel (U)on 04-17-2025 Bilirubin, [...] Urobilinogen, UA 1.0 0.2 - 12 mg/dL [facility] Urinalysis macro (dipstick) panel (U)on 04-03-2025 Bilirubin, [...] Urobilinogen, UA 1.0 0.2 - 12 mg/dL [facility] GLUCOSE TOLERANCE 3 HOURon 0 03-21-2025 GLUCOSE [...] II, MD, PHD at 21-Mar-2025 08:31:03 AM [facility] Normal Not Available Comment on above: Order Comment: US OB INCOMPLETE ANATOMY Estimated Date of Delivery: 07/01/25 Gestational Age as of 02/24/2025: 21w6d IGP,APTIMA HPV,AGE GDLNon AGE GDLN ACOG TESTING Note . [facility] Comment on above: TESTS RESULT FLAG UN ITS REF RANGE LAB Clinician Provided Cytology Information Source.............[employer] Other.............. No. of containers..01 ThinPrep Vial Age Algo ACOG Mandie... FLAG LEGEND: L-Low Normal,H-High Normal,LL-Alert Low,HH-Alert High <-Panic Low,>-Panic High,A-Abnormal,AA-Critical Abnormal Performed at: 01 =G [facility] [address] [place] [address] Mckenna Polanco MD, IGP, RFX APTIMA HPV ASCU Note . [facility] Comment on above: TESTS RESULT FLAG UN ITS REF RANGE LAB DIAGNOSIS: 02 NEGATIVE FOR INTRAEPITHELIAL LESION OR MALIGNANCY. Specimen adequacy: 02 Satisfactory for evaluation. No endocervical component is identified. Performed by: Andres Pineda, Grants Administrator ([facility]) . 02 Note: Note 02 The Pap [...] High,A-Abnormal,AA-Critical Abnormal Performed at: 02 WB [facility] [address] [place] [address] Mckenna Polanco MD, Performed at: = - [facility] [address] [id number] Jewel Inserter: Mckenna Polanco MD, Phone: [phone] Performed at: - [facility] [address] [id number] Jewel Inserter: Mckenna Polanco MD, Phone: [phone] [facility] GLUCOSE 1 HOURon 03-06-2025 Glucose [Mass/Vol] 141 mg/dL High NINF - 13 0 mg/dL [facility] Interpretation and review of laboratory results Abnormal [facility] Glucose tolerance, 1 houron 03-06-2025 Glucose Tolerance Test 1 Hour 141 [facility] No Panel Informationon 03-06 [facility] [...] Urobilinogen, UA 0.2 0.2 - 12 mg/dL [facility], [facility]1983 US OB 14+ WEEKS ANATOMY SCAN on [...] II, MD, PHD at 20-Feb-2025 09:47:05 AM [facility] Normal Not Available Comment on above: Order Comment: US OB ANATOMY SINGLE W US OB CERVICAL LENGTH Estimated Date of Delivery: 07/01/25 Gestational Age as of 02/12/2025: 20w1d HBV surface Ag IA Qlon 02-01 Hepatitis B Surface Antigen Negative [facility] Sightly [facility] BOX TESTon 01-31-2025 BOX TEST SENT OUT [employer] [email or web address] [employer] [facility] [employer] BOX[address] 01/31/25 [facility] Drug Screen, Urineon 025 Amphetamine/Methamphet amine Negative [facility] Barbiturates Negative [facility] Benzodiazepines Negative [facility] Cocaine Metabolite Negative [facility] Ecstasy Negative [facility] Methadone Negative [facility] Opiates Negative [facility] Oxycodone Negative [facility] Phencyclidine Negative [facility] Thc Marijuana, Urine Positive [facility] HIV 1+2 Ab+HIV1 p24 Ag IA Ql on 01-31-2025 HIV 1&2 AB/AG Non-Reactive [facility] Hemoglobin A1con 01-31-2025 HbA1c (Bld) [Mass fraction] 4.9 % 4.0 - 6.0 % [facility] No Panel Informationon 01-31 [facility] Rubella IGG immune statuson 01-31-2025 Rubella immune IgG 7.29 [facility] Type and screenon 01-31-2025 Abo/Rh(D) Negative [facility] No Panel Informationon 01-30 STAPHYLOCOCCUS EPIDERMIDIS, HAEMOLYTICUS, LUGDUNENSIS, SAPROPHYTICUS (URINA 0 [facility] STAPHYLOCOCCUS EPIDERMIDIS, HAEMOLYTICUS, LUGDUNENSIS, SAPROPHYTICUS (URINA Not detected [facility] URINARY TRACT INFECTION (HTR X)on 01-30-2025 ACINETOBACTER BAUMANII 0 NO [facility] ACINETOBACTER BAUMANII Not detected [facility] [...] detected [facility] PSEUDOMONAS AERUGINOSA 0 NO [facility] PSEUDOMONAS AERUGINOSA Not detected [facility] SERRATIA MARCESCENS 0 [facility] SERRATIA MARCESCENS Not detected [facility] STAPHYLOCOCCUS AUREUS 0 [facility] STAPHYLOCOCCUS AUREUS Not detected N [facility] STREPTOCOCCUS AGALACTIAE (GROUP B STREP) 0 [facility] STREPTOCOCCUS AGALACTIAE (GROUP B STREP) Not detected [facility] STREPTOCOCCUS PYOGENES (GROUP A STREP) 0 [facility] STREPTOCOCCUS PYOGENES (GROUP A STREP) Not detected [facility] Urinalysis macro (dipstick) panel (U)on 01-29-2025 Bilirubin, [...] Urobilinogen, UA 1.0 0.2 - 12 mg/dL [facility] HCG ( test) Ql (U)o n 01-24-2025 Interpretation and review of laboratory results Abnormal [facility] Preg Test, Ur Positive Negative [facility]1983 US OB LIMITED 1+ FETUSESon 0 01-24-2025 [...] II, MD, PHD at 27-Jan-2025 10:23:04 AM [facility] Normal Not Available Comment on above: [...] Spec Grav, UA 1.02 1 - 1.03 [facility] Urobilinogen, UA 0.2 0.2 - 12 mg/dL [facility] Urine Cultureon 01-06-2025 Bacteria identified Cx Nom (U) No Growth 2 Days PERFORMED BY: [place] [address] PATHOLOGIST [employer] RAHUL HOLCOMB M.D. Normal [facility] Comment on above: Performed By: #### C UU #### [address] Amphetamine Screen Ql (U)Ord ered By: Denny Azevedo on 08-11-2023 Amphetamines Ql (U) Negative Negative [facility] Amylase [Enzymatic activity/ volume] in Serum or PlasmaOrdered By: Denny Azevedo on 08-11-2023 Amylase [Catalytic activity/Vol] 32 U/L 29-103 [facility] Aspartate aminotransferase [ Enzymatic activity/volume] in Serum or PlasmaOrdered By: Denny Azevedo on 08-11-2023 AST [Catalytic activity/Vol] 24 U/L 13-39 [facility] Automated erythrocytes count in urine sediment (number/area)Ordered By: Denny Azevedo on 08-11-2023 RBC Auto (Urine sed) [#/Area] 10-19 [HPF] 0-4 [facility] Automated leukocytes count i n urine sediment (number/area)Ordered By: Denny Azevedo on 08-11-2023 WBC Auto (Urine sed) [#/Area] 3-4 [HPF] 0-4 [facility] Barbiturates [Presence] in U rine by Screen methodOrdered By: Denny Azevedo on 08-11-2023 Barbiturates Screen Ql (U) Negative Negative [facility] Basophils Auto (Bld) [#/Vol] Ordered By: Denny Azevedo on 08-11-2023 Basophils (Bld) [#/Vol] 0.1 10*3/uL 0.0-0.2 [facility] Basophils/100 WBC Auto (Bld) Ordered By: Denny Azevedo on 08-11-2023 Basophils/100 WBC (Bld) 0.9 % . [facility] Benzodiazepines Screen Ql (U )Ordered By: Denny Azevedo on 08-11-2023 Benzodiazepines Ql (U) Negative Negative [facility] Benzoylecgonine [Presence] i n Urine by Screen methodOrdered By: Denny Azevedo on 08-11-2023 Benzoylecgonine Screen Ql (U) Negative Negative [facility] Bilirubin Test strip Ql (U)O rdered By: Denny Azevedo on 08-11-2023 Bilirubin Ql (U) Negative Negative [facility] Cannabinoids [Presence] in U rine by Screen methodOrdered By: Denny Azevedo on 08-11-2023 Cannabinoids Screen Ql (U) Positive Negative [facility] Comment on above: These are unconfirme d results and should not be used for legal purposes. Drug Cut-Off Concentration: AMPH 1000 ng/mL THOMAS 200 ng/mL ARTHUR 200 ng/mL COCM 300 ng/mL OP 300 ng/mL PCP 25 ng/mL THC 20 ng/mL Carbon dioxide, total [Moles /volume] in Serum or PlasmaOrdered By: Denny Azevedo on 08-11-2023 CO2 [Moles/Vol] 17.8 mmol/L 21.0-31.0 [facility] Chloride [Moles/volume] in S marline or PlasmaOrdered By: Denny Azevedo on 08-11-2023 Chloride [Moles/Vol] 108 mmol/L 98-107 [facility] Color Auto (U)Ordered By: French Azevedo on 08-11-2023 Color (U) Yellow Yellow [facility] Creatine kinase [Enzymatic a ctivity/volume] in Serum or PlasmaOrdered By: Denny Azevedo on 08-11-2023 CK [Catalytic activity/Vol] 225 U/L 30-223 [facility] Creatinine [Mass/volume] in Serum or PlasmaOrdered By: Denny Azevedo on 08-11-2023 Creatinine [Mass/Vol] 0.68 mg/dL 0.60-1.[address] [facility] Eosinophils Auto (Bld) [#/Vo l]Ordered By: Denny Azevedo on 08-11-2023 Eosinophils (Bld) [#/Vol] 0.1 10*3/uL 0.0-0.45 [facility] Eosinophils/100 WBC Auto (Bl d)Ordered By: Denny Azevedo on 08-11-2023 Eosinophils/100 WBC (Bld) 1.3 % . [facility] Erythrocyte distribution wid th Auto (RBC) [Ratio]Ordered By: Denny Azevedo on 08-11-2023 Erythrocyte distribution width (RBC) [Ratio] 12.9 % 11.9-15.3 [facility] Ethanol [Mass/volume] in Ser um or PlasmaOrdered By: Denny Azevedo on 08-11-2023 Ethanol [Mass/Vol] mg/dL [facility] Ethanol [Mass/Vol] TNP [facility] Comment on above: Test not performed Glucose [Mass/volume] in Ser um or PlasmaOrdered By: Denny Azevedo on 08-11-2023 Glucose [Mass/Vol] 109 mg/dL 70-100 [facility] Comment on above: ADA recommended refe rence rangeRandom Glucose Reference Range is dependent on time and content of last meal. Glucose of more than 200 mg/dL in a nonstressed, ambulatory subject supports the diagnosis of Diabetes Mellitus. HCG ( test) IA.rapi d Ql (U)Ordered By: Denny Azevedo on 08-11-2023 HCG ( test) Ql (U) Negative [facility] Hematocrit Auto (Bld) [Volum e fraction]Ordered By: Denny Azevedo on 08-11-2023 Hematocrit (Bld) [Volume fraction] 40.4 % 34.0-46.4 [facility] Hemoglobin [Mass/volume] in BloodOrdered By: Denny Azevedo on 08-11-2023 Hemoglobin (Bld) [Mass/Vol] 14.2 g/dL 11.8-15.4 [facility] INR in Platelet poor plasma by Coagulation assayOrdered By: Denny Azevedo on 08-11-2023 INR Coag (PPP) [Relative time] 1.0 {INR} [facility] Comment on above: INR Therapeutic [...] on 08-11-2023 Ketones (U) [Mass/Vol] Trace Negative [facility] - UrinalysisOrder ed By: Denny Azevedo on 08-11-2023 Hyaline casts LM Ql (Urine sed) 0-8 [LPF] 0-8 [facility] Leukocytes [#/volume] correc sonja for nucleated erythrocytes in Blood by Automated counOrdered By: Denny Azevedo on 08-11-2023 WBC corrected for nucl RBC Auto (Bld) [#/Vol] 7.9 10*3/uL 3.8-11.6 [facility] Lipase [Enzymatic activity/v olume] in Serum or PlasmaOrdered By: Denny Azevedo on 08-11-2023 Lipase [Catalytic activity/Vol] 13.0 U/L 11.0-82.0 [facility] Lymphocytes Auto (Bld) [#/Vo l]Ordered By: Denny Azevedo on 08-11-2023 Lymphocytes (Bld) [#/Vol] 1.8 10*3/uL 1.00-4.8 [facility] Lymphocytes/100 WBC Auto (Bl d)Ordered By: Denny Azevedo on 08-11-2023 Lymphocytes/100 WBC (Bld) 23.1 % . [facility] MCH Auto (RBC) [Entitic mass ]Ordered By: Denny Azevedo on 08-11-2023 MCH (RBC) [Entitic mass] 30.4 pg 24.7-34.3 [facility] MCHC Auto (RBC) [Mass/Vol]Or dered By: Denny Azevedo on 08-11-2023 MCHC (RBC) [Mass/Vol] 35.1 g/dL 32.0-35.[address] [facility] MCV Auto (RBC) [Entitic vol] Ordered By: Denny Azevedo on 08-11-2023 MCV (RBC) [Entitic vol] 86.7 fL 80-100 [facility] Monocyte distribution width [Entitic volume] in Blood by AutomatedOrdered By: Denny Azevedo on 08-11-2023 Monocyte distribution width Auto (Bld) [Entitic vol] 17.99 % 0.00-20.00 [facility] Monocytes Auto (Bld) [#/Vol] Ordered By: Denny Azevedo on 08-11-2023 Monocytes (Bld) [#/Vol] 0.5 10*3/uL 0.0-0.8 [facility] Monocytes/100 WBC Auto (Bld) Ordered By: Denny Azevedo on 08-11-2023 Monocytes/100 WBC (Bld) 6.9 % . [facility] Neutrophils Auto (Bld) [#/Vo l]Ordered By: Denny Azevedo on 08-11-2023 Neutrophils (Bld) [#/Vol] 5.4 10*3/uL 1.8-7.7 [facility] Neutrophils/100 WBC Auto (Bl d)Ordered By: Denny Azevedo on 08-11-2023 Neutrophils/100 WBC (Bld) 67.8 % . [facility] Nitrite Test strip Ql (U)Ord ered By: Denny Azevedo on 08-11-2023 Nitrite Ql (U) Negative Negative [facility] No Panel InformationOrdered By: Denny Azevedo on 08-11-2023 Estimated GFR (CKD-EPI) > 60.0 mL/Min [facility] Creatinine Clearance (Chem 138.27 [facility] Nucleated erythrocytes [Pres ence] in Blood by Automated countOrdered By: Denny Azevedo on 08-11-2023 Nucleated RBC Auto Ql (Bld) 0.1 /100{WBC} 0-0.5 [facility] Opiates [Presence] in Urine by Screen methodOrdered By: Denny Azevedo on 08-11-2023 Opiates Screen Ql (U) Negative Negative [facility] Phencyclidine Screen Ql (U)O rdered By: Denny Azevedo on 08-11-2023 Phencyclidine Ql (U) Negative Negative [facility] Platelet mean volume Auto (B ld) [Entitic vol]Ordered By: Denny Azevedo on 08-11-2023 Platelet mean volume (Bld) [Entitic vol] 7.7 fL 6.3-10.7 [facility] Platelets Auto (Bld) [#/Vol] Ordered By: Denny Azevedo on 08-11-2023 Platelets (Bld) [#/Vol] 307 10*3/uL 150-450 [facility] Potassium [Moles/volume] in Serum or PlasmaOrdered By: Denny Azevedo on 08-11-2023 Potassium [Moles/Vol] 3.3 mmol/L 3.5-5.[address] [facility] Protein Auto test strip (U) [Mass/Vol]Ordered By: Denny Azevedo on 08-11-2023 Protein (U) [Mass/Vol] 30 mg/dL Negative [facility] Prothrombin time (PT)Ordered By: Denny Azevedo on 08-11-2023 PT Coag (PPP) [Time] 12.1 s 9.0-12.9 [facility] Comment on above: A hematocrit value g reater than 55% may lead to inaccurate results in coagulation testing. Patients having hematocrit values >55% require a special collection tube for coagulation studies. Please contact the laboratory at [phone] for redraw instructions. RBC Auto (Bld) [#/Vol]Ordere d By: Denny Azevedo on 08-11-2023 RBC (Bld) [#/Vol] 4.66 10*6/uL 3.60-5.00 [facility] Serum or plasma anion gap de terminationOrdered By: Denny Azevedo on 08-11-2023 Anion gap [Moles/Vol] 15.5 mmol/L 6.0-15.0 [facility] Sodium [Moles/volume] in Ser um or PlasmaOrdered By: Denny Azevedo on 08-11-2023 Sodium [Moles/Vol] 138 mmol/L 136-145 [facility] Specific gravity Auto test s trip (U) [Rel density]Ordered By: Denny Azevedo on 08-11-2023 Specific gravity (U) [Rel density] 1.026 1.001-1.03 0 [facility] Squamous epithelial cells de tection in urine sediment by light microscopyOrdered By: Denny Azevedo 08-11-2023 Epithelial cells.squamous LM Ql (Urine sed) 0-1 [HPF] 0-2 [facility] Urea nitrogen [Mass/volume] in Serum or PlasmaOrdered By: Denny Azevedo 08-11-2023 Urea nitrogen [Mass/Vol] 11 mg/dL 7-25 [facility] Urine bacteria detection by automated methodOrdered By: Denny Azevedo 08-11-2023 Bacteria Auto Ql (U) None seen None Seen [facility] Urine clarity by refractomet ry automatedOrdered By: Denny Azevedo on 08-11-2023 Clarity Refractometry automated (U) Clear Clear [facility] Urine glucose measurement by automated test strip (mass/volume)Ordered By: Denny Azevedo on 08-11-2023 Glucose Auto test strip (U) [Mass/Vol] Normal mg/dL Normal [facility] Urine hemoglobin detection b y automated test stripOrdered By: Denny Azevedo on 08-11-2023 Hemoglobin Auto test strip Ql (U) 2+ Negative [facility] Urine leukocyte esterase det ection by automated test stripOrdered By: Denny Azevedo on 08-11-2023 Leukocyte esterase Auto test strip Ql (U) Negative Negative [facility] Urobilinogen Auto test strip (U) [Mass/Vol]Ordered By: Denny Azevedo on 08-11-2023 Urobilinogen (U) [Mass/Vol] Normal mg/dL Normal [facility] WBC Auto (Bld) [#/Vol]Ordere d By: Denny Azevedo on 08-11-2023 WBC (Bld) [#/Vol] 7.9 10*3/uL 3.8-11.6 [facility] pH Auto test strip (U)Ordere d By: Denny Azevedo on 08-11-2023 pH (U) 6.5 [pH] 5.0-9.0 [facility] BILIRUBIN CONJUGATED (DIRECT )on 03-03-2022 BILI, CONJUGATED 0.3 mg/dL Critically high 0.0-0.2 [facility] Comment on above: Performed By: #### D FERNANDEZ #### [facility] [address] [place] [address] Dr. Yaritza Bojorquez CBC AUTO DIFFon 03-03-2022 BASO # 0.1 103/ul Normal 0.0-0.1 [facility] Comment on above: Performed By: #### C BC #### [facility] [address] [place] [address] Dr. Yaritza Bojorquez Basophils/100 WBC (Bld) 0.5 % Normal 0.2-2.0 [facility] Comment on above: Performed By: #### C BC #### [facility] [address] [place] [address] Dr. Yaritza Bjoorquez EO # 0.0 103/ul Normal 0.0-0.7 [facility] Comment on above: Performed By: #### C BC #### [facility] [address] [place] [address] Dr. Yaritza Bojorquez Eosinophils/100 WBC (Bld) 0.1 % Critically low 0.9-7.0 [facility] Comment on above: Performed By: #### C BC #### [facility] [address] [place] [address] Dr. Yaritza Bojorquez Erythrocyte distribution width (RBC) [Ratio] 12.1 % Normal 11.0-15.0 [facility] Comment on above: Performed By: #### C BC #### [facility] [address] [place] [address] Dr. Yaritza Bojorquez Hematocrit (Bld) [Volume fraction] 45.0 % Normal 36.0-48.0 [facility] Comment on above: Performed By: #### C BC #### [facility] [address] [place] [address] Dr. Yaritza Bojorquez Hemoglobin (Bld) [Mass/Vol] 16.5 g/dL Critically high 12.0-16.0 [facility] Comment on above: Performed By: #### C BC #### [facility] [address] [place] [address] Dr. Yaritza Bojorquez IG # 0.05 10e3/ul Critically high 0.00-0.03 [facility] Comment on above: Performed By: #### C BC #### [facility] [address] [place] [address] Dr. Yaritza Bojorquez IG % 0.3 % Normal 0.0-0.5 [facility] Comment on above: Performed By: #### C BC #### [facility] [address] [place] [address] Dr. Yaritza Bojorquez LYMPH # 3.2 103/ul Normal 1.2-3.8 [facility] Comment on above: Performed By: #### C BC #### [facility] [address] [place] [address] Dr. Yaritza Bojorquez Lymphocytes/100 WBC (Bld) 21.6 % Normal 20.5-60.0 [facility] Comment on above: Performed By: #### C BC #### [facility] [address] [place] [address] Dr. Yaritza Bojorquez MANUAL DIFF REQ NO Normal [facility] Comment on above: Performed By: #### C BC #### [facility] [address] [place] [address] Dr. Yaritza Bojorquez MCH (RBC) [Entitic mass] 30.7 pg Normal 26.7-34.0 [facility] Comment on above: Performed By: #### C BC #### [facility] [address] [place] [address] Dr. Yaritza Bojorquez MCHC (RBC) [Mass/Vol] 36.7 g/dL Critically high 29.9-35.2 [facility] Comment on above: Performed By: #### C BC #### [facility] [address] [place] [address] Dr. Yaritza Bojorquez MCV (RBC) [Entitic vol] 83.8 fL Normal 81.0-99.0 [facility] Comment on above: Performed By: #### C BC #### [facility] [address] [place] [address] Dr. Yaritza Bojorquez MONO # 0.8 103/ul Normal 0.3-0.8 [facility] Comment on above: Performed By: #### C BC #### [facility] [address] [place] [address] Dr. Yaritza Bojorquez Monocytes/100 WBC (Bld) 5.3 % Normal 1.7-12.0 [facility] Comment on above: Performed By: #### C BC #### [facility] [address] [place] [address] Dr. Yaritza Bojorquez NEUT # 10.5 103/ul Critically high 1.4-6.5 [facility] Comment on above: Performed By: #### C BC #### [facility] [address] [place] [address] Dr. Yaritza Bojorquez Neutrophils/100 WBC (Bld) 72.2 % Normal 43.0-75.0 [facility] Comment on above: Performed By: #### C BC #### [facility] [address] [place] [address] Dr. Yaritza Bojorquez Platelet mean volume (Bld) [Entitic vol] 10.0 fL Normal 9.5-13.5 [facility] Comment on above: Performed By: #### C BC #### [facility] [address] [place] [address] Dr. Yaritza Bojorquez PLT 450 103/ul Normal 150-450 [facility] Comment on above: Performed By: #### C BC #### [facility] [address] [place] [address] Dr. Yaritza Bojorquez RBC 5.37 106/ul Normal 4.20-5.40 [facility] Comment on above: Performed By: #### C BC #### [facility] [address] [place] [address] Dr. Yaritza Bojorquez WBC 14.6 103/ul Critically high 4.0-11.0 [facility] Comment on above: Performed By: #### C BC #### [facility] [address] [place] [address] Dr. Yaritza Bojorquez CULTURE URINEon 03-03-2022 CULTURE URINE Culture Observations : LIGHT GROWTH OF MIXED GENITAL KRYSTAL. NO POTENTIAL PATHOGENS SEEN. Normal [facility] Comment on above: Performed By: #### U RCX #### [facility] [address] [place] [address] Dr. Yaritza Bojorquez ER URINE PROFILEon 2 Bilirubin Ql (U) Negative Normal NEGATIVE [facility] Comment on above: Performed By: #### BABAK MAERO #### [facility] [address] [place] [address] Dr. Yaritza Bojoruqez Clarity (U) CLEAR Normal CLEAR [facility] Comment on above: Performed By: #### Sandoval URIBE UMICRO #### [facility] [address] [place] [address] Dr. Yaritza Bojorquez Color (U) DK. YELLOW Normal YELLOW [facility] Comment on above: Performed By: #### Sandoval URIBE UMICRO #### [facility] [address] [place] [address] Dr. Yaritza CONN A micrscopic examina tion will be performed if indicated. Normal [facility] Comment on above: Performed By: #### Sandoval URIBE UMICRO #### [facility] [address] [place] [address] Dr. Yaritza Bojorquez Glucose Ql (U) Negative Normal NEGATIVE [facility] Comment on above: Performed By: #### Sandoval URIBE UMICRO #### [facility] [address] [place] [address] Dr. Yaritza Bojorquez Hemoglobin Ql (U) Negative Normal NEGATIVE [facility] Comment on above: Performed By: #### Sandoval URIBE UMICRO #### [facility] [address] [place] [address] Dr. Yaritza Bojorquez Ketones Ql (U) >=80 Abnormal NEGATIVE [facility] Comment on above: Performed By: #### Sandoval URIBE UMICRO #### [facility] [address] [place] [address] Dr. Yaritza Bojorquez LEUKOCYTES TRACE Abnormal NEGATIVE [facility] Comment on above: Performed By: #### Sandoval URIBE UMICRO #### [facility] [address] [place] [address] Dr. Yaritza Bojorquez Nitrite Ql (U) Negative Normal NEGATIVE [facility] Comment on above: Performed By: #### Sandoval URIBE UMICRO #### [facility] [address] [place] [address] Dr. Yaritza Bojorquez pH (U) 6.5 [pH] Normal 5-9 [facility] Comment on above: Performed By: #### Sandoval URIBE UMICRO #### [facility] [address] [place] [address] Dr. Yaritza Bojorquez Protein (U) [Mass/Vol] 100 mg/dL Abnormal NEGAT TORSTEN/ TRACE [facility] Comment on above: Performed By: #### Sandoval URIBE UMICRO #### [facility] [address] [place] [address] Dr. Yaritza Bojorquez SPEC GRAVITY 1.025 Normal 1.005-<=1. 025 [facility] Comment on above: Performed By: #### Sandoval URIBE UMICRO #### [facility] [address] [place] [address] Dr. Yaritza Bojorquez UR MICRO IND INDICATED Normal [facility] Comment on above: Performed By: #### Sandoval URIBE UMICRO #### [facility] [address] [place] [address] Dr. Yaritza Bojorquez Urobilinogen Qn (U) 4 {Emir'U}/dL Abnormal 0.2 - 1.0 [facility] Comment on above: Performed By: #### E TAYLA URIBE #### [facility] [address] [place] [address] Dr. Yaritza Bojorquez PROF 14(COMP METB)on 022 Albumin [Mass/Vol] 4.5 g/dL Normal 3.4-5.0 [facility] Comment on above: Performed By: #### C MP #### [facility] [address] [place] [address] Dr. Yaritza Bojorquez Albumin/Globulin [Mass ratio] 1.2 {ratio} Normal [facility] Comment on above: Performed By: #### C MP #### [facility] [address] [place] [address] Dr. Yaritza Bojorquez ALP [Catalytic activity/Vol] 48 U/L Normal 46-116 [facility] Comment on above: Performed By: #### C MP #### [facility] [address] [place] [address] Dr. Yaritza Bojorquez ALT [Catalytic activity/Vol] 25 U/L Normal 14-59 [facility] Comment on above: Performed By: #### C MP #### [facility] [address] [place] [address] Dr. Yaritza Bojorquez Anion gap [Moles/Vol] 17.8 mmol/L Normal [facility] Comment on above: Performed By: #### C MP #### [facility] [address] [place] [address] Dr. Yaritza Bojorquez AST [Catalytic activity/Vol] 11 U/L Critically low 15-37 [facility] Comment on above: Performed By: #### C MP #### [facility] [address] [place] [address] Dr. Yaritza Bojorquez Bilirubin [Mass/Vol] 1.4 mg/dL Critically high 0.2-1.0 [facility] Comment on above: Performed By: #### C MP #### [facility] [address] [address] [address] Yaritza Bojorquez Calcium [Mass/Vol] 9.3 mg/dL Normal 8.5-10.1 [facility] Comment on above: Performed By: #### C MP #### [facility] [address] [address] [address] Yaritza Bojorquez Chloride [Moles/Vol] 98 mmol/L Normal 98-107 [facility] Comment on above: Performed By: #### C MP #### [facility] [address] [place] [address] Dr. Yaritza Bojorquez CO2 [Moles/Vol] 19.1 mmol/L Critically low 21.0-32.0 [facility] Comment on above: Performed By: #### C MP #### [facility] [address] [place] [address] Dr. Yaritza Bojorquez Creatinine [Mass/Vol] 0.95 mg/dL Normal 0.55-1.02 [facility] Comment on above: Performed By: #### C MP #### [facility] [address] [place] [address] Dr. Yaritza Bojorquez EGFR-AF ISRAELI >60 Normal >=60 [facility] Comment on above: Performed By: #### C MP #### [facility] [address] [place] [address] Dr. Yaritza Bojorquez EGFR-NON AF ISRAELI >60 Normal >=60 [facility] Comment on above: Performed By: #### C MP #### [facility] [address] [place] [address] Dr. Yaritza Bojorquez Globulin (S) [Mass/Vol] 3.6 g/dL Normal [facility] Comment on above: Performed By: #### C MP #### [facility] [address] [place] [address] Dr. Yaritza Bojorquez Glucose [Mass/Vol] 138 mg/dL Critically high 74-106 [facility] Comment on above: Performed By: #### C MP #### [facility] [address] [place] [address] Dr. Yaritza Bojorquez Potassium [Moles/Vol] 2.9 mmol/L Critically low 3.5-5.1 [facility] Comment on above: Performed By: #### C MP #### [facility] [address] [place] [address] Dr. Yaritza Bojorquez Protein [Mass/Vol] 8.1 g/dL Normal 6.4-8.2 [facility] Comment on above: Performed By: #### C MP #### [facility] [address] [place] [address] Dr. Yaritza Bojorquez Sodium [Moles/Vol] 132 mmol/L Critically low 136-145 [facility] Comment on above: Performed By: #### C MP #### [facility] [address] [place] [address] Dr. Yaritza Bojorquez Urea nitrogen [Mass/Vol] 8.0 mg/dL Normal 7.0-18.0 [facility] Comment on above: Performed By: #### C MP #### [facility] [address] [place] [address] Dr. Yaritza Bojorquez Urea nitrogen/Creatinine [Mass ratio] 8.4 mg/mg Normal [facility] Comment on above: Performed By: #### C MP #### [facility] [address] [place] [address] Dr. Yaritza Bojorquez URINE MICROSCOPIC ONLYon BACTERIA MODERATE Abnormal NONE SEEN [facility] Comment on above: Performed By: #### Sandoval URIEB UMICRO #### [facility] [address] [place] [address] Dr. Yaritza Bojorquez Bacteria identified Cx Nom (U) INDICATED Normal [facility] Comment on above: Performed By: #### Sandoval URIBE UMICRO #### [facility] [address] [place] [address] Dr. Yaritza Bojorquez CAST NONE SEEN Normal NONE SEEN [facility] Comment on above: Performed By: #### Sandoval URIBE UMICRO #### [facility] [address] [place] [address] Dr. Yaritza Bojorquez Crystals LM Nom (Urine sed) NONE SEEN Normal NONE SEEN [facility] Comment on above: Performed By: #### E RUR, UMICRO #### [facility] [address] [address] [address] Yaritza Bojorquez Epithelial cells LM Ql (Urine sed) MANY Abnormal NONE SEEN /RARE [facility] Comment on above: Performed By: #### E RUR, UMICRO #### [facility] [address] [address] [address] Yaritza Bojorquez MUCOUS SMALL Abnormal NONE SEEN [facility] Comment on above: Performed By: #### E RUR, UMICRO #### [facility] [address] [address] [address] Yaritza Bojorquez RBC 2-5 Abnormal 0-2 [facility] Comment on above: Performed By: #### E RUR, UMICRO #### [facility] [address] [address] [address] Yaritza Bojorquez WBC 5-10 Abnormal NONE SEEN [facility] Comment on above: Performed By: #### E RUR, UMICRO #### [facility] [address] [address] [address] Yaritza Bojorquez XR ABD FLAT UP_PA [...] Date: 2022-03-03 07:46 Normal [facility] Covid-19 PCR (CVDTB)on 07-29 SARS-CoV-2 (COVID-19) RNA KOLE+probe Ql (Unsp spec) Not detected Normal NOT DETECTED [facility] Comment on above: Result Comment: This test is not yet approved or cleared by the [place] FDA. When there are no FDA-approved or cleared tests available, and other criteria are met, FDA can make tests available under an emergency access mechanism called an Emergency Use Authorization (EUA). The EUA for this test is supported by the [place] of Health and Human Service's (HHS's) declaration [...] consistent with SARS-CoV-2. Performed By: #### C [facility] #### [facility] [address] [place] [address] Dr. Yaritza Bojorquez Provider Note - ED [...] No Current Medications SIGNIFICANT EVENTS: Immunizations Description:Tdap IMMIGRATION CASE MANAGER: Is : no(1) Is : no(1) RESULTS/VITAL SIGNS VITAL SIGNS: T PRBP SpO2O2(LPM) %FiO2 Method 22-Jun-2019 18:54:[id number] 99 room air, no respiratory support 22-Jun-2019 18:07:[id number] 97 room air, no respiratory support MEDICAL [...] Final Verification: completed Procedure performed by: me Fireboat Operator(s): none Findings: grossly normal anatomy Specimen: no [...] a critically ill patient: no Electronic Signatures: aBrb Sanchez) (Signed 23-Jun-2019 07:29) Authored: Provider Note - ED v2 Last Updated: 23-Jun-2019 07:29 by Barb Sanchez) References: 1. Data Referenced From Triage - ED 22-Jun-2019 18:07 Normal [facility] Risk Screen - Adult Emergenc yon 06-22-2019 Risk Screen - Adult Emergency Preferred Language: Preferred Language: Preferred Language for Discussing Health Care (patient/designee)[place] Advanced Directives: Advance Directive/DNRno Family Violence Adult: Abuse Screen: Are you or have you been threatened or abused physically, emotionally, or sexually by anyoneno Learning Assessment (Patient): Learning Assessment (Patient): Patient is Able to be Assessed for Learningyes Factors Influencing Readiness to Learnacuteness of illness Factors that Impact Ability to Learnnone Devices/Methods Used to Communicatenone Learning Preferencesaudio Cultural Considerationsnone Developmental Considerationsnone Scientologist Considerationsnone Learning Assessment (Other Learner): Learning Assessment (Other Learner): Other learner availableno Pressure Injury/TB/Substance: Pressure Injury: Pressure Injury Present on Admissionno Do you have a coughno Substance Use Current or Former Historynever: Cigarette/Tobacco, e-Cigarette/Vaping, Alcohol, Street Drugs Admission Risk Screen: Significant IndicatorsComplete CAGE: CAGE: Is this an injured [place] a [place] Center [place]/[facility]y [place]): yes C: Have you ever felt you needed to Cut down on your drinking: no A: Have people Annoyed you by criticizing your drinking: no G: Have you ever felt Guilty about drinking: no E: Have you ever felt you needed a drink first thing in the morning (Eye-mine promotor) to steady your nerves or to get rid of hangover: no Electronic Signatures: Mehdi Chaney (RN) (Signed 22-Jun-2019 18:11) Authored: Preferred Language, Advanced Directives, Family Violence Adult, Learning Assessment (Patient), Learning Assessment (Other Learner), Pressure Injury/TB/Substance, CAGE Last Updated: 22-Jun-2019 18:11 by Mehdi Chaney (RN) [facility] Triage - EDon 06-22-2019 Triage - ED [...] Accompanied By: self Language: Spoken Language Preferred: [place] PRIMARY ASSESSMENT CHENTE GONZALEZ's primary assessment is [...] 22-Jun-2019 18:40 by Nitin Singer (AYALA) Normal [facility] Vital Signs Date Time Vital Sign Value Performing Clinician Facility 06-12-2025 09:50-0400 Body mass index (BMI) [Ratio] 37.61 kg/m2 Jaspreet Angie DO Work Phone: [facility] 06-12-2025 09:50-0400 Body weight 102.51 kg Jaspreet Angie DO Work Phone: [facility] 06-12-2025 09:50-0400 Diastolic blood pressure 72 mm[Hg] Jaspreet Angie DO Work Phone: [facility] 06-12-2025 09:50-0400 Systolic blood pressure 128 mm[Hg] Jaspreet Angie DO Work Phone: [facility] 06-02-2025 11:40-0400 Body mass index (BMI) [Ratio] 37.28 kg/m2 Willy Avila ARMED GUARD Work Phone: [facility] 06-02-2025 11:40-0400 Body weight 101.61 kg Willy Avila ARMED GUARD Work Phone: [facility] 06-02-2025 11:40-0400 Diastolic blood pressure 80 mm[Hg] Willy Avila ARMED GUARD Work Phone: [facility] 06-02-2025 11:40-0400 Systolic blood pressure 126 mm[Hg] Willy Avila ARMED GUARD Work Phone: [facility] 05-15-2025 10:03-0400 Body mass index (BMI) [Ratio] 36.08 kg/m2 Deyanira Juan PA Work Phone: [facility] 05-15-2025 10:03-0400 Body weight 98.34 kg Deyanira [place] PA Work Phone: [facility] 05-15-2025 10:03-0400 Diastolic blood pressure 78 mm[Hg] Deyanira Juan PA Work Phone: [facility] 05-15-2025 10:03-0400 Systolic blood pressure 140 mm[Hg] Deyanira Juan PA Work Phone: [facility] [...] 33.91 kg/m2 Deyanira Juan PA Work Phone: [facility] 04-17-2025 10:41-0400 Body weight 92.44 kg Deyanira Juan PA Work Phone: [facility] 04-17-2025 10:41-0400 Diastolic blood pressure 86 mm[Hg] Deyanira Juan PA Work Phone: [facility] 04-17-2025 10:41-0400 Systolic blood pressure 134 mm[Hg] Deyanira KABA Work Phone: [facility] 04-03-2025 [...] index (BMI) [Ratio] 31.53 kg/m2 Willy Avila ARMED GUARD Work Phone: [facility] 01-29-2025 10:57-0400 Body weight 85.96 kg Willy Austin ARMED GUARD Work Phone: [facility] 01-29-2025 10:57-0400 Diastolic blood pressure 80 mm[Hg] Willy Austin ARMED GUARD Work Phone: [facility] 01-29-2025 10:57-0400 Systolic blood pressure 136 mm[Hg] Willy Avila ARMED GUARD Work Phone: [facility] 01-24-2025 11:42-0400 Diastolic blood pressure 70 mm[Hg] [facility] Nurse [facility] 01-24-2025 11:42-0400 Systolic blood pressure 142 mm[Hg] [facility] Nurse [facility] 01-24-2025 11:21-0400 Body mass index (BMI) [Ratio] 32.01 kg/m2 [facility] Nurse [facility] 01-24-2025 11:21-0400 Body weight 87.26 kg [facility] Nurse [facility] 12-23-2024 13:51-0400 [...] Diastolic blood pressure 64 mm[Hg] PHYSICIAN NO [facility] 08-11-2023 22:07-0500 Heart rate 71 /min PHYSICIAN NO [facility] 08-11-2023 22:07-0500 Respiratory rate 18 /min PHYSICIAN NO [facility] 08-11-2023 22:07-0500 SaO2% (BldA) [Mass fraction] 99 % PHYSICIAN NO [facility] 08-11-2023 22:07-0500 Systolic blood pressure 126 mm[Hg] PHYSICIAN NO [facility] 08-11-2023 19:17-0500 Body height 170.18 cm PHYSICIAN NO [facility] 08-11-2023 19:17-0500 Body weight 80.73 kg PHYSICIAN NO [facility] Encounters Encounter Date Encounter Type Care Provider Facility Start: 06-12-2025 End: 06-12-2025 Bamboo flowsheet Jaspreet Angie DO Work Phone: [facility] Start: 06-12-2025 End: 06-12-2025 Bamboo flowsheet Jaspreet Angie DO Work Phone: [facility] Start: 06-12-2025 End: 06-12-2025 Office outpatient visit 15 minutes Jaspreet Angie DO Work Phone: [facility] Comment on above: Third trimester preg reshma ([facility]); 37 weeks gestation of ([facility]) Start: 06-02-2025 End: 06-02-2025 Clinisync Result Encounter Jaspreet Angie DO Work Phone: [facility] Unsolicited Start: 06-02-2025 End: 06-02-2025 Clinisync Result Encounter Jaspreet Angie DO Work Phone: [facility] Unsolicited Start: 06-02-2025 End: 06-02-2025 ambulatory WILLY AUSTIN Not Available Start: 06-02-2025 End: 06-02-2025 Office outpatient visit 15 minutes Willy Avila ARMED GUARD Work Phone: [facility] Comment on above: 35 weeks gestation o f ([facility]); Third trimester ([facility]) Start: 05-26-2025 End: 05-26-2025 Clinisync Result Encounter [...] flowsheet Deyanira KABA Work Phone: [facility] Start: 05-15-2025 End: 05-15-2025 Bamboo flowsheet Deyanira KABA Work Phone: [facility] Start: 05-15-2025 End: 05-15-2025 ambulatory DEYANIRA MCCLOUD Not Available Start: 05-15-2025 End: 05-15-2025 Office outpatient visit 15 minutes Deyanira KABA Work Phone: [facility] Comment on above: 33 weeks gestation o f ([facility]); Third trimester ([facility]); Gestational diabetes mellitus (GDM), antepartum, gestational diabetes method of control unspecified ([facility]) Start: 04-30-2025 End: 04-30-2025 Office outpatient visit 15 minutes Jaspreet Angie DO Work Phone: [facility] Comment on above: 31 weeks gestation o f ([facility]); Third trimester ([facility]); Gestational diabetes mellitus (GDM), antepartum, gestational diabetes method of control unspecified ([facility]) Start: 04-30-2025 End: 04-30-2025 ambulatory JASPREET ANGIE Not Available Start: 04-17-2025 End: 04-17-2025 Bamboo flowsheet Deyanira KABA Work Phone: [facility] Start: 04-17-2025 End: 04-17-2025 Bamboo flowsheet Deyanira KABA Work Phone: [facility] Start: 04-17-2025 End: 04-17-2025 ambulatory DEYANIRA MCCLOUD Not Available Start: 04-17-2025 End: 04-17-2025 Office outpatient visit 15 minutes Deyanira KABA Work Phone: [facility] Comment on above: Size of fetus incons istent with dates in second trimester ([facility]) (Primary Dx); Third trimester ([facility]); 29 weeks gestation of ([facility]) Start: 04-03-2025 End: 04-03-2025 Bamboo flowsheet Jaspreet Angie DO Work Phone: [facility] Start: 04-03-2025 End: 04-03-2025 Bamboo flowsheet Jaspreet Angie DO Work Phone: [facility] Start: 04-03-2025 End: 04-03-2025 ambulatory JASPREET ANGIE Not Available Start: 04-03-2025 End: 04-03-2025 Office outpatient visit 15 minutes Jaspreet Angie DO Work Phone: [facility] Comment on above: Second trimester pre gnancy ([facility]); 27 weeks gestation of ([facility]) Start: 03-28-2025 End: 03-28-2025 Chart abstracting Scanning Provider External Maternal- Medicine at [facility] Start: 03-21-2025 End: 03-21-2025 Clinisync Result [...] pre gnancy ([facility]); 23 weeks gestation of ([facility]); Diabetes mellitus screening; Well woman exam with [...] 01-29-2025 End: 01-29-2025 Bamboo flowsheet Willy Avila ARMED GUARD Work Phone: [facility] Start: 01-29-2025 End: 01-30-2025 Bamboo flowsheet Willy Avila ARMED GUARD Work Phone: [facility] Start: 01-29-2025 End: 01-30-2025 External Result Encounter Willy Avila ARMED GUARD Work Phone: [facility] Unsolicited Start: 01-29-2025 End: 01-29-2025 ambulatory WILLY AVILA Not Available Start: 01-29-2025 End: 01-29-2025 Office outpatient visit 15 minutes Willy Avila ARMED GUARD Work Phone: [facility] Comment on above: Second trimester pre gnancy; 18 weeks gestation of Start: 01-24-2025 End: 01-24-2025 Office outpatient visit 5 minutes [facility]ie Nurse [facility] Comment on above: GA: 17w3d Start: 01-24-2025 End: 01-24-2025 ambulatory JASPREET ANGIE Not Available Start: 01-06-2025 End: 01-06-2025 ambulatory Cristal Butt Marker Facility:[facility] Start: 01-06-2025 End: 01-06-2025 Departed Referred Cristal Marker DO Work Phone: [facility] Start: [...] 08-11-2023 Emergency department patient visit PHYSICIAN [facility] Work Phone: Start: 03-03-2022 End: 03-03-[address] DOCTOR BARBOZA Facility:[facility] Start: 08-23-2021 End: 08-23-2021 ambulatory ADEOLA COHEN Facility:[facility] Procedures Date Procedure Procedure Detail Performing Clinician Start: 06-12-2025 Urnls dip stick/tabl et rgnt non-auto w/o micrscp Jaspreet Angie DO Work Phone: Start: 06-02-2025 Urnls dip stick/tabl et rgnt [...] Ref Prov Start: 03-06-2025 GLUCOSE 1 HOUR Jaspreetnish vuo DO Work Phone: Start: 03-05-2025 Urnls dip stick/tabl et rgnt non-auto w/o micrscp Jaspreetnish Parikho DO Work Phone: Start: 03-05-2025 IGP,APTIMA HPV,AGE GDLN Jaspreetnish Adams DO Work Phone: Start: 02-01-2025 Iaad ia hepatitis b surface antigen Not In System Ref Prov Start: 01-31-2025 BOX TEST Jaspreetnish terrell DO Work Phone: Start: 01-31-2025 Antibody [...] URINARY TRACT INFECT ION (HTRX) Willy Avila ARMED GUARD Work Phone: Start: 01-29-2025 Urnls dip stick/tabl et rgnt non-auto w/o micrscp Willy Avila ARMED GUARD Work Phone: Start: 01-24-2025 Urnls dip stick/tabl et rgnt non-auto w/o micrscp Jaspreet Parikho DO Work Phone: Start: 08-11-2023 Plain X-ray [...] Treatment Date Care Activity Detail Author Start: 06-19-2025 End: 06-19-2025 Patient encounter procedure 06/19/2025 9:40 AM EDT Routine [facility] [address] [place] [address] Deyanira Mccloud PA [address] [place], [facility] [facility] Start: 06-12-2025 End: 06-12-2025 Patient encounter procedure 06/12/2025 9:40 AM EDT Routine [facility] [address] [place] [address] Jaspreet Adams DO [address] [place], [place] [address] [facility] Start: 06-02-2025 End: 06-02-2026 CULTURE, GROUP B STREP WITH SUSCEPTIBLITY CULTURE, GROUP B STREP WITH SUSCEPTIBLITY Lab Routine Third trimester ([facility]) Expected: 06/02/2025, Expires: 06/02/2026 [facility] Work Phone: Comment on above: Expected: 06/02/2025 , Expires: 06/02/2026 Start: 06-02-2025 End: 06-02-2025 Patient encounter procedure 06/02/2025 11:20 AM EDT Routine [facility] [address] [place] [address] Willy Avila, ARMED GUARD [address] [place] [address] [facility] Start: 04-30-2025 End: 10-28-2025 US biophysical profile w non stress test US biophysical profile w non stress test Imaging Routine Gestational diabetes mellitus (GDM), antepartum, gestational diabetes method of control unspecified ([facility]) Expected: 04/30/2025 (Approximate), Expires: 10/28/2025 [facility] Work Phone: Comment on above: Expected: 04/30/2025 (Approximate), Expires: 10/28/2025 Start: 04-28-2025 Influenza vaccination Influenza Vacc ine [facility] Start: 04-17-2025 End: 08-17-2025 US for US OB follow up transabdominal approach Imaging Routine Size of fetus inconsistent with dates in second trimester ([facility]) Expected: 04/17/2025, Expires: 08/17/2025 [facility] Work Phone: Comment on above: Expected: 04/17/2025 , Expires: 08/17/2025 Start: 04-17-2025 End: 04-17-2025 Patient encounter procedure 04/17/2025 9:50 AM EDT Routine [facility] [address] [place] [id number] Deyanira Mccloud PA [address] [place] [address] [facility] Start: 04-03-2025 End: 04-03-2025 ambulatory 04/03/2025 1:30 PM EDT Support Visit Maternal- Medicine at [facility] [address] [place] [phone] Rimma Richey RN [address] [facility], [address] [place] [address] [place] [address] Nikky Gonzalez LD Karl, Deborah, LD [address] [place] [address] Maternal- Medicine at [facility] Start: 04-03-2025 End: 04-03-2025 Patient encounter procedure 04/03/2025 10:40 AM EDT Routine [facility] [address] [place] [phone] Jaspreet Adams, DO [address] [place] [address] [facility] Start: 03-19-2025 End: 03-19-2025 Professional / ancillary services management 03/19/2025 9:30 AM EDT Ancillary Procedure [facility] [address] [place] [phone] [facility] Start: 03-05-2025 End: 03-05-2026 CBC panel - Blood by Automated count CBC Lab Routine Diabetes mellitus screening Expected: 03/05/2025 (Approximate), Expires: 03/05/2026 [facility] Comment on above: Expected: 03/05/2025 (Approximate), Expires: 03/05/2026 Start: 03-05-2025 End: 03-05-2026 Measurement of glucose 1 hour after glucose challenge for glucose tolerance test Glucose tolerance, 1 hour Lab Routine Diabetes mellitus screening Expected: 03/05/2025 (Approximate), Expires: 03/05/2026 [facility] Comment on above: Expected: 03/05/2025 (Approximate), Expires: 03/05/2026 Start: 03-05-2025 End: 03-05-2025 Patient encounter procedure 03/05/2025 11:00 AM EDT Routine [facility] [address] [place] [phone] Jaspreet Adams, DO [address] [place] [address] Arrived [facility] Comment on above: Arrived Start: 02-27-2025 End: 02-27-2025 Patient encounter procedure 02/27/2025 8:50 AM EDT Routine [facility] [address] [place] [address] Jaspreet Adams DO [address] [place] [address] [facility] Start: 02-12-2025 End: 02-12-2025 Clinical Support 02/12/2025 9:00 AM EDT Clinical Support [facility] [address] [place] [address] [facility] Start: 01-29-2025 End: 01-29-2025 Patient encounter procedure 01/29/2025 10:20 AM EDT Routine [facility] [address] [place] [address] Willy Avila, WILLIE [address] [place] [address] [facility] Start: 01-24-2025 End: 01-24-2026 ABO/Rh ABO/Rh Lab Routine Missed menses , unspecified gestational age Expected: 01/24/2025 (Approximate), Expires: 01/24/2026 [facility] Comment on above: Expected: 01/24/2025 (Approximate), Expires: 01/24/2026 Start: 01-24-2025 End: 03-26-2025 Alpha fetoprotein, maternal Alpha fetoprotein, maternal Lab Routine Encounter for supervision of normal first in first trimester Expected: 01/24/2025 (Approximate), Expires: 03/26/2025 [facility] Comment on above: Expected: 01/24/2025 [...] AM EDT Initial [facility] [address] [place] [address] [facility] Start: 01-10-2025 End: 01-10-2025 Professional / ancillary services management 01/10/2025 9:00 AM EDT Ancillary Procedure [facility] [address] [place] [address] [facility] Start: 01-06-2025 Bacteria identified in Urine by Culture Urine Culture [facility] Start: 01-06-2025 Urine culture [facility] Start: 2018 Screening for malign ant neoplasm of cervix Pap Smear [facility] Start: 2016 DTaP,Tdap and Td Vaccines (1 - Tdap) DTaP,Tdap and Td Vaccines (1 - Tdap) [facility] Start: 12-07-2015 Adult BMI Screening Adult BMI Screen ing [facility] Start: 2009 Depression Screening Depression Scre ening [facility] Start: 2009 Tobacco Screening Tobacco Screening [facility] Bacteria identified in Urine by Culture [...] Abdominal Trauma ED Blunt Chest Trauma ED [facility] Work Phone: Patient referral [facility] Work Phone: Reagin Ab [Presence] in Serum by RPR RPR Lab Routine Missed menses , unspecified gestational age Ordered: 01/24/2025 [facility] Comment on above: Ordered: 01/24/2025 Rubella antibody, IgG Rubella an tibody, IgG Lab Routine Missed menses , unspecified gestational age Ordered: 01/24/2025 [facility] Comment on above: Ordered: 01/24/2025 Immunizations Immunization Date Immunization Notes Care Provider Fa aaron 08-11-2023 tetanus toxoid, redu christie diphtheria toxoid, and acellular pertussis vaccine, adsorbed PHYSICIAN NO FAMILY [facility] Payers Date Payer Category Payer Private Health Insurance [facility] MEDICAID [id number] 2025 Self-pay [id number] 2024 Medicaid [id number] 2024 Medicaid [id number] 1997 Unknown [id number] 2.16.840.1.172704.3.579.2. 593 1997 Unknown [id number] 2.16.840.1.232133.3.579.2. 593 1997 Unknown [id number] 2.16.840.1.245556.3.579.2. 1259 1997 Unknown [id number] 2.16.840.1.970210.3.579.2. 1259 1997 Unknown [id number] 2.16.840.1.740770.3.579.2. 1259 1997 Unknown [id number] 2.16.840.1.367074.3.579.2. 1259 1997 Unknown [id number] 2.16.840.1.759798.3.579.2. 1259 1997 Unknown [id number] 2.16.840.1.177540.3.579.2. 1259 1997 Unknown [id number] 2.16.840.1.947584.3.579.2. 1259 1997 Unknown [id number] 2.16.840.1.718360.3.579.2. 9 1997 Unknown [id number] 2.16.840.1.762851.3.579.2. 9 1997 Unknown [id number] 2.16.840.1.466750.3.579.2. 1258 1997 Unknown [id number] 2.16.840.1.720566.3.579.2. 9 1997 Unknown [id number] 2.16.840.1.043609.3.579.2. 9 1997 Unknown [id number] 2.16.840.1.828718.3.579.2. 1259 1959 Unknown [id number] Unknown Regular Auto/Liability [id number] Unknown HCAP/HFA/FAP Active [id number] Unknown [id number] 2.16.840.1.594141.3.579.2. 531 Unknown Regular Auto/Liability 23-47 [id number] Unknown HCAP/HFA/FAP Active [id number] Social History Date Type Detail Facility Start: 08-11-2023 End: 08-11-2023 Tobacco smoking status NHIS Never smoked tobacco (finding) [facility] Start: 1995 Sex Assigned At Female F [facility] smoking consumption unknown [facility] Start: 12-22-2024 Gender identity Identifies as female gender (finding) [facility] Start: 05-26-2025 Sexual orientation Not on file [facility] Work Phone: Start: 01-07-2025 End: 03-26-2025 Sex Female (finding) [facility] Start: 10-08-2024 [facility] Start: 1995 Sex assigned at Not on file [facility] [employer] Start: 05-26-2025 History of Social function [facility] Work Phone: Start: 11-09-2022 Sex Female MATTIE williamson Medical Equipment Procedure Code Equipment Code Equipment Origin al Text Equipment Identifier Dates 1 strip by In Vi tro route Daily Use in the morning prior to breakfast, 1 hour after each meal for a total of 4times daily. [id number] Start: 03-24-2025 End: 04-23-2025 1 each by In Vit ro route Daily Use to check FSBS four times daily [id number] Start: 03-24-2025 End: 04-23-2025 Clinical Notes 12-23-2024 to 06-12-2025 Nissa Matt LPN - 06/12/2025 9:40 AM Cam Avila NP - 06/02/2025 11:20 AM SENDY Pascual - 05/15/2025 9:50 AM Dina Pendleton LPN - 04/30/2025 3:00 PM EDT Note Date & Type Note Facility 06-12-2025 History of Present illness Narrative Reason for [...] nursing note reviewed. Exam conducted with a coat tailor present. Vitals: Estimated body mass index is 37.61 kg/m as calculated from the following: Height as of 12/01/20: 5' 5 . Weight as of this encounter: 226 lb. BP: 128/72 Patient's last menstrual period was 10/04/2024 (approximate). ASSESSMENT & PLAN ICD-10-CM 1. Third trimester ([facility]) Z34.93 POCT urinalysis dipstick manually resulted 2. 37 weeks gestation of ([facility]) Z3A.37 Patient presents today for a routine [...] history on file. documented in this encounter [facility] 06-02-2025 History of Present illness Narrative Reason for Appointment: Patient ID: Chente Gonzalez is a 29 y.o. female who presents for Routine Visit (35w 6d) Patient presents today for Return OB appointment. MEDICATIONS Current Outpatient Medications Medication Instructions Alcohol Swabs (Alcohol Prep Pad) 70 % pads 1 Pad, Topical, Daily, Use four times daily to check FSBS. Blood Glucose Monitoring Suppl ([employer] Glucometer) w/Device kit 1 kit, Does not [...] nursing note reviewed. Exam conducted with a coat tailor present. Vitals: Estimated body mass index is 37.28 kg/m as calculated from the following: Height as of 21: 5' 5 . Weight as of this encounter: 224 lb. BP: 126/80 Patient's last menstrual period was 10/04/2024 (approximate). ASSESSMENT & PLAN ICD-10-CM 1. 35 weeks gestation of ([facility]) Z3A.35 POCT urinalysis dipstick manually resulted 2. Third trimester ([facility]) Z34.93 CULTURE, GROUP B STREP WITH SUSCEPTIBLITY [...] in this encounter [facility] 05-15-2025 History of Present illness Narrative Reason for Appointment: Patient ID: Chente Gonzalez is a 29 y.o. female who presents for No chief complaint on file. Patient presents today for Return OB appointment. MEDICATIONS Current Outpatient Medications Medication Instructions Alcohol Swabs (Alcohol Prep Pad) 70 % pads 1 Pad, Topical, Daily, Use four times daily to check FSBS. Blood Glucose Monitoring Suppl ([employer] Glucometer) w/Device kit 1 kit, Does not [...] PLAN ICD-10-CM 1. 33 weeks gestation of ([facility]) Z3A.33 POCT urinalysis dipstick manually resulted 2. Third trimester ([facility]) Z34.93 POCT urinalysis dipstick manually resulted 3. Gestational diabetes mellitus (GDM), antepartum, gestational diabetes method of control unspecified ([facility]) O24.419 Return OB: Patient presents today for [...] nursing note reviewed. Exam conducted with a coat tailor present. Vitals: Estimated body mass index is 35.01 kg/m as calculated from the following: Height as of 12/01/20: 5' 5 . Weight as of this encounter: 210 lb 6.4 oz. BP: 120/70 Patient's last menstrual period was 10/04/2024 (approximate). ASSESSMENT & PLAN ICD-10-CM 1. 31 weeks gestation of ([facility]) Z3A.31 POCT urinalysis dipstick manually resulted 2. Third trimester ([facility]) Z34.93 POCT urinalysis dipstick manually resulted 3. Gestational diabetes mellitus (GDM), antepartum, gestational diabetes method of control unspecified ([facility]) O24.419 US biophysical profile w non stress [...] ASSESSMENT & PLAN ICD-10-CM 1. Third trimester ([facility]) Z34.93 POCT urinalysis dipstick manually resulted 2. 29 weeks gestation of ([facility]) Z3A.29 POCT urinalysis dipstick manually resulted Return [...] to check FSBS. Blood Glucose Monitoring Suppl ([employer] Glucometer) w/Device kit 1 kit, Does not [...] nursing note reviewed. Exam conducted with a coat tailor present. Vitals: Estimated body mass index is 33.35 kg/m as calculated from the following: Height as of 12/01/20: 5' 5 . Weight as of this encounter: 200 lb 6.4 oz. BP: 130/72 Patient's last menstrual period was 10/04/2024 (approximate). ASSESSMENT & PLAN ICD-10-CM 1. Second trimester ([facility]) Z34.92 Urine dip 2. 27 weeks gestation of ([facility]) Z3A.27 Urine dip Patient presents today for a routine obstetrics appointment. Patient is currently 27w2d with a Estimated Date of Delivery: 07/01/25. Patient brought in FSBS logs for review and patient still desires to hold off on [facility] referral at this time, referral was previously sent on 03/24/25 and when contacted by [facility] patient will inform them that she [...] nursing note reviewed. Exam conducted with a coat tailor present. Vitals: Estimated body mass index is 31.62 kg/m as calculated from the following: Height as of 12/01/20: 5' 5 . Weight as of this encounter: 190 lb. BP: 128/78 Patient's last menstrual period was 10/04/2024 (approximate). ASSESSMENT & PLAN ICD-10-CM 1. Second trimester ([facility]) Z34.92 POCT urinalysis dipstick manually resulted 2. 23 weeks gestation of ([facility]) Z3A.23 3. Diabetes mellitus screening Z13.1 CBC [...] nursing note reviewed. Exam conducted with a coat tailor present. Vitals: Estimated body mass index is [...] or undercooked meat, and stay away from [facility]. Patient has also been advised to [...] Kalyn Jacob MA documented [facility] [...] nursing note reviewed. Exam conducted with a coat tailor present. Vitals: Estimated body mass index is [...] Evaluation note No assessment inform ation available [facility] Work Phone: Evaluation note Diagnosis [...] antepartum, gestational diabetes method of control unspecified ([facility]) [facility] Diagnosis 33 weeks gestation of ([facility]) Third trimester ([facility]) state, incidental Gestational diabetes mellitus (GDM), antepartum, gestational diabetes method of control unspecified ([facility]) [facility] Diagnosis 35 weeks gestation of ([facility]) Third trimester ([facility]) state, incidental [facility] Diagnosis Third trimester ([facility]) state, incidental 37 weeks gestation of ([facility]) documented in this encounter [facility] HealthcareInstructionsNot on filedocumented [facility] Family History Relationship Condition [...] section and content) DATE CREATED AUTHOR 06/25/2019 [facility] DATE CREATED AUTHOR AUTHOR'S ORGANIZ ATION [facility]20[facility] DATE CREATED AUTHOR AUTHOR'S ORGANIZ ATION 01/09/2025 [facility] DATE CREATED AUTHOR AUTHOR'S ORGANIZ ATION 06/04/2025 [facility] [employer] Care Teams (unrecognized sec tion [...] BE BASED ON THE PRIMARY CLINICAL RECORDS. [facility] [employer] [facility]. provides no warranty or guarantee of the accuracy or completeness of information in this document.
--- NOTE | 2025-06-12 11:35 | US_ITS ---
[address] [address] Patient Name: JORGE ALBERTO LUNA MRN: [id number] date: 1995 Sex: F Assigned Patient Location: [facility] Current Patient Location: Accession/Order Number: [id number] Exam Date: 06/12/2025 11:38 Report Date: 06/12/2025 14:34 At the request of: TYRELL THAPA DO Procedure: US OB BPP w non-stress Biophysical profile. Reason for exam: Gestational diabetes COMPARISON: 06/02/2025 TECHNIQUE: Transabdominal imaging of the gravid uterus was obtained. FINDINGS: The production team member reports a BPP of 8 out of 8. DOYLE is normal at 8.3 cm. heart rate 136 bpm. US/US OB BPP w non-stress IMPRESSION: BPP 8 out of 8. Impression dictated by: Ramana Raza Jr. DPeggyOPeggy 06/12/2025 2:34 PM Dictation Location: [place] [address] Electronically authenticated by: [id number] Y Date: 06/12/2025 14:34
== END 2025-06-12 11:55 | disposition home or self-care (01) ==
LOC: FBCO 11:01 → FBC 11:02
PROVIDERS: Visit Provider Obstetrics & Gynecology
DX: O24.419 Gestational diabetes mellitus in pregnancy, unspecified control (principal); Z3A.37 37 weeks gestation of pregnancy
CPT/HCPCS: 76818

== ENCOUNTER 2025-06-16 10:09 | Outpatient (OUT) | payer OTHER, SELFPAY ==
--- NOTE | 2025-06-16 10:16 | US_ITS ---
[facility] [place] [id number] Patient Name: JORGE ALBERTO LUNA MRN: [id number] date: 1995 Sex: F Assigned Patient Location: [facility] Current Patient Location: Accession/Order Number: [id number] Exam Date: 06/16/2025 10:18 Report Date: 06/16/2025 17:04 At the request of: TYRELL THAPA DO Procedure: US OB BPP w non-stress BIOPHYSICAL PROFILE: CLINICAL INFORMATION: Gestational diabetes mellitus COMPARISON: 06/12/2025 There is a single live intrauterine gestation in cephalic presentation. The reported gestational age is 37 weeks 6 days. The heart rate measures 148 beats per minute. FINDINGS: TONE: 1 or more episodes of activity extension and flexion of extremity or opening and closing of the hand [Y] 2/2 GROSS BODY MOVEMENTS: 3 or more discrete body or limb movements [Y] 2/2 BREATHING MOVEMENTS: 1 or more episodes of breathing lasting at least 30 seconds [Y] 2/2 DOYLE: A single deepest vertical pocket of amniotic fluid greater than 2 cm [Y] 2/2 DOYLE: 9.5 cm . The 5th percentile 7.3 cm. Total score: 8/8 US/US OB BPP w non-stress IMPRESSION: NORMAL BIOPHYSICAL PROFILE Impression dictated by: Rahel Mae M.D. 06/16/2025 5:04 PM Dictation Location: [place] [address] Electronically authenticated by: [id number] Y Date: 06/16/2025 17:04
--- OUTSIDE RECORDS SUMMARY | 2025-06-16 10:17 | XMS_ITS | CCD ---
Author Organization [facility] Care Team Providers Care Power Tong Operator Name Role Phone ADEOLA COHEN Admitting [...] Admitting Unavailable Marker Cristal STANLEY Attending Provider [phone] Unavailable Primary Care Provider Unavailabl e ADRY ADAMSY Attending Unavailable ANGIE, JASPREET Referring Unavailable AUSTIN, WILLY Attending Unavailable AUSTIN, WILLY Referring Unavailable ANGIE, JASPREET Attending Unavailable ANGIE, JASPREET Attending Unavailable JUANDEYANIRA Attending Unavailable JUAN, DEYANIRA Referring Unavailable ANGIE, JASPREET Attending Unavailable JUAN DEYANIRA Attending Unavailable AUSTIN, WILLY Attending Unavailable ANGIE, JASPREET Attending Unavailable Allergies Allergy Classification Reported Allergen(s) Allergy Type Date of Onset Reaction(s) Facility (1 source) Penicillins Drug allergy (disorder) 09-28-2014 [facility] Repository (20 sources) Penicillins Drug Allergy 12-23-2024 [facility] Healthcare (1 source) Penicillins Drug allergy (disorder) 02-22-2022 [facility] Repository (5 sources) Penicillin G Drug Allergy 06-02-2025 Unknown [facility] Healthcare Medications Current Medications Medication Drug Class(es) Dates Sig (Normalized) Sig (Original) Blood Glucose Monitoring Suppl (D-Care Glucometer) w/Device kit (20 sources) Start: 03-24-2025 End: 03-24-2026 Blood Glucose Monitoring Suppl (D-Care Glucometer) w/Device kit Indications: Gestational diabetes mellitus (GDM), antepartum, gestational diabetes method of control unspecified ([facility]) , Elevated glucose tolerance test 1 [...] antepartum, gestational diabetes method of control unspecified ([facility]) , Elevated glucose tolerance test Apply [...] 25 mg supposito ry Discontinued 25 MG MA Q6H as needed for nausea and vomiting [...] Drug Class(es) Dates Sig (Normalized) Sig (Original) [id number] 200 actuat albuterol 0.09 mg/actuat metered dose [...] D2) 1,250 mcg (50,000 unit) Capsule Discontinued 19754 UNIT PO every week 4 December 27, [...] UA Negative Negative - 4(70) +++ mg/dL [facility] Blood, UA Positive Negative - 50 Derick/mcL [facility] Healthcare Comment on above: Trace Clarity, UA Clear [facility] Color, UA Yellow [facility] Glucose, UA Negative Negative - 2000(110) ++++ mg/dL [facility] Interpretation and review of laboratory results Abnormal [facility] Ketones, UA Negative Negative - 160(16) ++++ mg/dL [facility] Leukocytes, UA Negative Negative - 500+++ Julio/mcL [facility] Nitrite, UA Negative Negative - Positive [facility] pH, UA 6.0 5 - 9 [facility] Healthcare Protein, UA Positive Negative - 2000(20) ++++ mg/dL [facility] Comment on above: Trace Spec Grav, UA 1.020 1 - 1.03 [facility] Urobilinogen, UA 0.2 0.2 - 12 mg/dL [facility] Healthcare US OB BPP W NON-STRESS on 06-02-[address] [address] Ultrasound Report Signed Patient: CHENTE GONZALEZ MR#: [id number] : 1995 Acct:[id number] Age/Sex: 29 / F ADM Date: 06/02/25 Loc: [facility] 250-[address]: Jaspreet Adams D.O. Ordering Physician: Jaspreet Adams D.O. Date of Service: 06/02/25 Procedure(s): US OB BPP w non-stress Accession Number(s): [id number] cc: Jaspreet Adams D.O.; Physician,Non-Staff Alejandra The [place] [address] Patient Name: CHENTE GONZALEZ MRN: [facility]:[id number] date: 1995 Sex: F Assigned Patient Location: [facility] Current Patient Location: [facility] Accession/Order Number: [id number] Exam Date: 06/02/2025 10:22 Report Date: 06/02/2025 10:52 At the request of: JASPREET ADAMS DO Procedure: US OB BPP w non-stress Biophysical profile. Reason for exam: Gestational diabetes COMPARISON: 05/26/2025 TECHNIQUE: Transabdominal imaging of the gravid uterus was obtained. FINDINGS: The prepress supervisor reports a BPP of 8 out of 8. DOYLE is normal at 8.9 cm. heart rate 124 bpm. US/US OB BPP w non-stress IMPRESSION: BPP 8 out of 8. Impression dictated by: Ramana Raza Jr., D.O. 06/02/2025 10:52 AM Dictation Location: [place] [address] Electronically authenticated by: [id number] Y Date: 06/02/2025 10:52 Dictated By: Ramana Raza M.D. Signed By: 06/02/25 1054 DD/ 105 TD/TT: Investment Sales Assistant: [facility] Radiology, Radiologval vanegas MD - 06/02/2025 [place] [address] Ultrasound Report Signed Patient: CHENTE GONZALEZ MR#: [id number] : 1995 Acct:[id number] Age/Sex: 29 / F ADM Date: 06/02/25 Loc: [facility] 250-[address]: Jaspreet Adams D.O. Ordering Physician: Jaspreet Adams D.O. Date of Service: 06/02/25 Procedure(s): US OB BPP w non-stress Accession Number(s): [id number] cc: Jaspreet Adams D.O.; Physician,Non-Staff Alejandra [place] [address] Patient Name: CHENTE GONZALEZ MRN: [id number] date: 1995 Sex: F Assigned Patient Location: [facility] Current Patient Location: [facility] Accession/Order Number: [id number] Exam Date: 06/02/2025 10:22 Report Date: 06/02/2025 10:52 At the request of: JASPREET ADAMS DO Procedure: US OB BPP w non-stress Biophysical profile. Reason for exam: Gestational diabetes COMPARISON: 05/26/2025 TECHNIQUE: Transabdominal imaging of the gravid uterus was obtained. FINDINGS: The prepress supervisor reports a BPP of 8 out of 8. DOYLE is normal at 8.9 cm. heart rate 124 bpm. US/US OB BPP w non-stress IMPRESSION: BPP 8 out of 8. Impression dictated by: Ramana Raza Jr., D.O. 06/02/2025 10:52 AM Dictation Location: [place] [address] Electronically authenticated by: [id number] Y Date: 06/02/2025 10:52 Dictated By: Ramana Raza M.D. Signed By: 06/02/25 1054 DD/ 105 TD/TT: Investment Sales Assistant: [facility] Radiology Study observation (narrative) [facility] US OB BPP W NON-STRESS Ordered By: Radiologist Radiology on 06-02-2025 [facility] Work Phone: Urinalysis macro (dipstick) panel (U)on 06-02-2025 Bilirubin, UA Negative Negative - 4(70) +++ mg/dL [facility] Blood, UA Positive Negative - 50 Derick/mcL [facility] Clarity, UA Clear [facility] Color, UA Yellow [facility] Glucose, UA Negative Negative - 1999(110) ++++ mg/dL [facility] Interpretation and review of laboratory results Abnormal [facility] Ketones, UA Negative Negative - 160(16) ++++ mg/dL [facility] Leukocytes, UA 3+ Negative - 500+++ Julio/mcL [facility] Nitrite, UA Negative Negative - Positive [facility] pH, UA 6.5 5 - 9 [facility] Protein, UA Trace Negative - 1999(20) ++++ mg/dL [facility] Spec Grav, UA 1.01 1 - 1.03 [facility] Urobilinogen, UA 2.0 0.2 - 12 mg/dL [facility] Healthcare US OB BPP W NON-STRESS on 05-26-2025 [place] [address] Ultrasound Report Signed Patient: CHENTE GONZALEZ MR#: [id number] : 1995 Acct:[id number] Age/Sex: 29 / F ADM Date: 05/26/25 Loc: US Attending Dr: Jaspreet Adams D.O. Ordering Physician: Jaspreet Adams D.O. Date of Service: 05/26/25 Procedure(s): US OB BPP w non-stress Accession Number(s): [id number] cc: Jaspreet Adams D.O.; Physician,Non-Staff M.DPeggy The [address] [id number] Patient Name: CHENTE GONZALEZ MRN: [id number] date: 1995 Sex: F Assigned Patient Location: [facility] Current Patient Location: Accession/Order Number: [id number] Exam Date: 05/26/2025 10:05 Report Date: 05/26/2025 [...] Mae M.D. 05/26/2025 11:39 AM Dictation Location: [place] [address] Electronically authenticated by: [id number] Y Date: 05/26/2025 11:39 Dictated By: Rahel Mae M.D. Signed By: 05/26/25 1142 DD/ 1139 TD/TT: Investment Sales Assistant: [facility] Radiology, Radiologval vanegas MD - 05/26/2025 [place] [address] Ultrasound Report Signed Patient: CHENTE GONZALEZ MR#: [id number] : 1995 Acct:[id number] Age/Sex: 29 / F ADM Date: 05/26/25 Loc: US Attending Dr: Jaspreet Adams D.O. Ordering Physician: Jaspreet Adams D.O. Date of Service: 05/26/25 Procedure(s): US OB BPP w non-stress Accession Number(s): [id number] cc: Jaspreet Adams D.O.; Physician,Non-Staff Alejandra The [address] [address] Patient Name: CHENTE GONZALEZ MRN: [facility]:[id number] date: 1995 Sex: F Assigned Patient Location: [facility] Current Patient Location: Accession/Order Number: [id number] Exam Date: 05/26/2025 10:05 Report Date: 05/26/2025 [...] Mae M.D. 05/26/2025 11:39 AM Dictation Location: [place] [address] Electronically authenticated by: [id number] Y Date: 05/26/2025 11:39 Dictated By: Rahel Mae M.D. Signed By: 05/26/25 1142 DD/ 1139 TD/TT: Investment Sales Assistant: [facility] Radiology Study observation (narrative) [facility] US OB BPP W NON-STRESS Ordered By: Radiologist Radiology on 05-26-2025 [facility] Work Phone: US AMNIOTIC FLUID VOLUMEon 0 05-20-[address] [address] Ultrasound Report Signed Patient: CHENTE GONZALEZ MR#: [id number] : 1995 Acct:[id number] Age/Sex: 29 / F ADM Date: 05/20/25 Loc: [facility] 250-[address]: Jaspreet Adams D.O. Ordering Physician: Jaspreet Adams D.O. Date of Service: 05/20/25 Procedure(s): US OB amniotic fluid vol Accession Number(s): [id number] cc: Jaspreet Adams D.O.; Physician,Non-Staff Alejandra The [place] [id number] Patient Name: CHENTE GONZALEZ MRN: [facility]:[id number] date: 1995 Sex: F Assigned Patient Location: [facility] Current Patient Location: Accession/Order Number: [id number] Exam Date: 05/20/2025 11:10 Report Date: 05/20/2025 [...] Mae M.D. 05/20/2025 11:33 AM Dictation Location: [place] [address] Electronically authenticated by: [id number] Y Date: 05/20/2025 11:33 Dictated By: Rahel Mae M.D. Signed By: 05/20/25 1136 DD/ 1133 TD/TT: Investment Sales Assistant: [facility] Radiology, Radiologi MD guilherme - 05/20/2025 [place] [address] Ultrasound Report Signed Patient: CHENTE GONZALEZ MR#: [id number] : 1995 Acct:[id number] Age/Sex: 29 / F ADM Date: 05/20/25 Loc: [facility] 250-[address]: Jaspreet Adams D.O. Ordering Physician: Jaspreet Adams D.O. Date of Service: 05/20/25 Procedure(s): US OB amniotic fluid vol Accession Number(s): [id number] cc: Jaspreet Adams D.O.; Physician,Non-Staff [place] [address] Patient Name: CHENTE GONZALEZ MRN: [id number] date: 1995 Sex: F Assigned Patient Location: [facility] Current Patient Location: Accession/Order Number: [id number] Exam Date: 05/20/2025 11:10 Report Date: 05/20/2025 [...] Mae M.D. 05/20/2025 11:33 AM Dictation Location: [place] [address] Electronically authenticated by: [id number] Y Date: 05/20/2025 11:33 Dictated By: Rahel Mae M.D. Signed By: 05/20/25 1136 DD/ 1133 TD/TT: Investment Sales Assistant: [facility] Radiology Study observation (narrative) [facility] US AMNIOTIC FLUID VOLUMEOrde red By: Radiologist Radiology on 05-20-2025 [facility] Work Phone: US OB BPP W NON-STRESS on 05-19-2025 The [place] [id number] Ultrasound Report Signed Patient: CHENTE GONZALEZ MR#: [id number] : 1995 Acct:[id number] Age/Sex: 29 / F ADM Date: 05/19/25 Loc: [facility] 250-[address]: Jaspreet Adams D.O. Ordering Physician: Jaspreet Adams D.O. Date of Service: 05/19/25 Procedure(s): US OB BPP w non-stress Accession Number(s): [id number] cc: Jaspreet Adams D.O.; Physician,Non-Staff Alejandra [place] [address] Patient Name: CHENTE GONZALEZ MRN: [id number] date: 1995 Sex: F Assigned Patient Location: [facility] Current Patient Location: [facility] Accession/Order Number: [id number] Exam Date: 05/19/2025 10:15 Report Date: 05/19/2025 [...] Mae M.D. 05/19/2025 10:54 AM Dictation Location: [place] [address] Electronically authenticated by: [id number] Y Date: 05/19/2025 10:54 Dictated By: Rahel Mae M.D. Signed By: 05/19/25 1056 DD/ 1054 TD/TT: Investment Sales Assistant: [facility] Radiology, Radiologval vanegas MD - 05/19/2025 [place] [address] Ultrasound Report Signed Patient: CHENTE GONZALEZ MR#: [id number] : 1995 Acct:[id number] Age/Sex: 29 / F ADM Date: 05/19/25 Loc: [facility] 250-[address]: Jaspreet Adams D.O. Ordering Physician: Jaspreet Adams D.O. Date of Service: 05/19/25 Procedure(s): US OB BPP w non-stress Accession Number(s): [id number] cc: Jaspreet Adams D.O.; Physician,Non-Staff Alejandra The [place] [id number] Patient Name: CHENTE GONZALEZ MRN: [facility]:[id number] date: 1995 Sex: F Assigned Patient Location: [facility] Current Patient Location: [facility] Accession/Order Number: [id number] Exam Date: 05/19/2025 10:15 Report Date: 05/19/2025 [...] Mae M.D. 05/19/2025 10:54 AM Dictation Location: [employer] Electronically authenticated by: [id number] Y Date: 05/19/2025 10:54 Dictated By: Rahel Mae M.D. Signed By: 05/19/25 1056 DD/ 1054 TD/TT: Investment Sales Assistant: [facility] Radiology Study observation (narrative) [facility] US OB BPP W NON-STRESS Ordered By: Radiologist Radiology on 05-19-2025 [facility] Work Phone: Urinalysis macro (dipstick) panel (U)on 05-15-2025 Bilirubin, UA Negative Negative - 4(70) +++ mg/dL [facility] Blood, UA Positive Negative - 50 Derick/mcL [facility] Comment on above: 1+ Clarity, UA Clear [facility] Color, UA Straw [facility] Glucose, UA Negative Negative - 2000(110) ++++ mg/dL [facility] Interpretation and review of laboratory results Abnormal [facility] Ketones, UA Negative Negative - 160(16) ++++ mg/dL [facility] Leukocytes, UA Negative Negative - 500+++ Julio/mcL [facility] Nitrite, UA Negative Negative - Positive [facility] pH, UA 6 5 - 9 [facility] Protein, UA Positive Negative - 2000(20) ++++ mg/dL [facility] Comment on above: 2+ Spec Grav, UA 1.02 1 - 1.03 [facility] Urobilinogen, UA 1.0 0.2 - 12 mg/dL [facility] US OB FOLLOW UP TRANSABDOMIN AL APPROACHon [...] UA Negative Negative - 4(70) +++ mg/dL [facility] Blood, UA Positive Negative - 50 Derick/mcL [facility] Comment on above: 1+ Clarity, UA Clear [facility] Color, UA Yellow [facility] Glucose, UA Negative Negative - 1999(110) ++++ mg/dL [facility] Interpretation and review of laboratory results Abnormal [facility] Ketones, UA Negative Negative - 160(16) ++++ mg/dL [facility] Leukocytes, UA Negative Negative - 500+++ Julio/mcL [facility] Nitrite, UA Negative Negative - Positive [facility] pH, UA 6 5 - 9 [facility] Protein, UA Positive Negative - 1999(20) ++++ mg/dL [facility] Spec Grav, UA 1.01 1 - 1.03 [facility] Urobilinogen, UA 1.0 0.2 - 12 mg/dL [facility] Urinalysis macro (dipstick) panel (U)on 04-17-2025 Bilirubin, UA Negative Negative - 4(70) +++ mg/dL [facility] Blood, UA Positive Negative - 50 Derick/mcL [facility] Clarity, UA Clear [facility] Color, UA Yellow [facility] Glucose, UA Negative Negative - 1999(110) ++++ mg/dL [facility] Interpretation and review of laboratory results Abnormal [facility] Ketones, UA Negative Negative - 160(16) ++++ mg/dL [facility] Leukocytes, UA Positive Negative - 500+++ Julio/mcL [facility] Nitrite, UA Negative Negative - Positive [facility] pH, UA 6 5 - 9 [facility] Protein, UA Negative Negative - 1999(20) ++++ mg/dL [facility] Spec Grav, UA 1.015 1 - 1.03 [facility] Urobilinogen, UA 1.0 0.2 - 12 mg/dL [facility] Urinalysis macro (dipstick) panel (U)on 04-03-2025 Bilirubin, UA Negative Negative - 4(70) +++ mg/dL [facility] Blood, UA Positive Negative - 50 Derick/mcL [facility] Clarity, UA Clear [facility] Color, UA Yellow [facility] Glucose, UA Negative Negative - 1999(110) ++++ mg/dL [facility] Interpretation and review of laboratory results Abnormal [facility] Ketones, UA Negative Negative - 160(16) ++++ mg/dL [facility] Leukocytes, UA Negative Negative - 500+++ Julio/mcL [facility] Nitrite, UA Negative Negative - Positive [facility] pH, UA 6.5 5 - 9 [facility] Protein, UA Negative Negative - 1999(20) ++++ mg/dL [facility] Spec Grav, UA 1.015 1 - 1.03 [facility] Urobilinogen, UA 1.0 0.2 - 12 mg/dL [facility] GLUCOSE TOLERANCE 3 HOURon 0 03-21-2025 GLUCOSE TOLERANCE 3 HOUR High mg/dL [facility] Comment on above: GLU FAST 86 (<95) Co l: 03/21/25 0856 GLU 1HR 181H (<180) Col: 03/21/25 1002 GLU 2HR 162H (<155) Col: 03/21/25 1102 GLU 3HR 75 (<140) Col: 03/21/25 1202 Interpretation and review of laboratory results Abnormal [facility] US OB LIMITED 1+ FETUSESon [...] II, MD, PHD at 21-Mar-2025 08:31:03 AM [facility] Normal Not Available Comment on above: Order Comment: US OB INCOMPLETE ANATOMY Estimated Date of Delivery: 07/01/25 Gestational Age as of 02/24/2025: 21w6d IGP,APTIMA HPV,AGE GDLNon AGE GDLN ACOG TESTING Note . [facility] Comment on above: TESTS RESULT FLAG U NITS REF RANGE LAB Clinician Provided Cytology Information Source.............[employer] Other.............. No. of containers..01 ThinPrep Vial Age Algo ACOG Mandie... FLAG LEGEND: L-Low Normal,H-High Normal,LL-Alert Low,HH-Alert High <-Panic Low,>-Panic High,A-Abnormal,AA-Critical Abnormal Performed at: 01 =G [facility] [address] [place] [address] Mckenna Polanco MD, IGP, RFX APTIMA HPV ASCU Note . [facility] Comment on above: TESTS RESULT FLAG UN ITS REF RANGE LAB DIAGNOSIS: 02 NEGATIVE FOR INTRAEPITHELIAL LESION OR MALIGNANCY. Specimen adequacy: 02 Satisfactory for evaluation. No endocervical component is identified. Performed by: 02 Vernell Pineda, Architecture Drafter ([facility]) . 02 Note: Note [...] High,A-Abnormal,AA-Critical Abnormal Performed at: 02 WB [facility] [address] [place] [address] Mckenna Polanco MD, Performed at: = - [facility] [address], [place] [id number] Cutting Machine Fixer: Mckenna Polanco MD, Phone: [phone] Performed at: - [facility] [address], [place] [id number] Cutting Machine Fixer: Mckenna Polanco MD, Phone: [phone] [facility] GLUCOSE 1 HOURon 03-06-2025 Glucose [Mass/Vol] 141 mg/dL High NINF - 13 0 mg/dL [facility] Interpretation and review of laboratory results Abnormal [facility] Glucose tolerance, 1 houron 03-06-2025 Glucose Tolerance Test 1 Hour 141 [facility] No Panel Informationon 03-06 [facility] Urinalysis macro (dipstick) panel (U)on 03-05-2025 Bilirubin, UA Negative Negative - 4(70) +++ mg/dL [facility] Blood, UA Negative Negative - 50 Derick/mcL [facility] Clarity, UA Clear [facility] Color, UA Yellow [facility] Glucose, UA Negative Negative - 2000(110) ++++ mg/dL [facility] Interpretation and review of laboratory results Normal [facility] Ketones, UA Negative Negative - 160(16) ++++ mg/dL [facility] Leukocytes, UA Negative Negative - 500+++ Julio/mcL [facility] Nitrite, UA Negative Negative - Positive [facility] pH, UA 6 5 - 9 [facility] Protein, UA Negative Negative - 2000(20) ++++ mg/dL [facility] Spec Grav, UA 1.01 1 - 1.03 [facility] Urobilinogen, UA 0.2 0.2 - 12 mg/dL [facility] US OB 14+ WEEKS ANATOMY SCAN on [...] II, MD, PHD at 20-Feb-2025 09:47:05 AM [facility] Normal Not Available Comment on above: Order Comment: US OB ANATOMY SINGLE W US OB CERVICAL LENGTH Estimated Date of Delivery: 07/01/25 Gestational Age as of 02/12/2025: 20w1d HBV surface Ag IA Qlon 02-01 Hepatitis B Surface Antigen [facility] [employer] [facility] BOX TESTon 01-31-2025 BOX TEST SENT OUT [employer] BOX1 [employer] BOX2 01/31/25 [facility] Drug Screen, Urineon 025 Amphetamine/Methamphet amine Negative [facility] Barbiturates Negative [facility] Benzodiazepines Negative [facility] Cocaine Metabolite Negative [facility] Ecstasy Negative [facility] Methadone Negative [facility] Opiates Negative [facility] Oxycodone Negative [facility] Phencyclidine Negative [facility] Thc Marijuana, Urine Positive [facility] HIV 1+2 Ab+HIV1 p24 Ag IA Ql on 01-31-2025 HIV 1&2 AB/AG Non-Reactive [facility] Hemoglobin A1con 01-31-2025 HbA1c (Bld) [Mass fraction] 4.9 % 4.0 - 6.0 % [facility] No Panel Informationon 01-31 [facility] Rubella IGG immune statuson 01-31-2025 Rubella immune IgG 7.29 [facility] Type and screenon 01-31-2025 Abo/Rh(D) Negative [facility] No Panel Informationon 01-30 STAPHYLOCOCCUS EPIDERMIDIS, HAEMOLYTICUS, LUGDUNENSIS, SAPROPHYTICUS (URINA 0 [facility] STAPHYLOCOCCUS EPIDERMIDIS, HAEMOLYTICUS, LUGDUNENSIS, SAPROPHYTICUS (URINA Not detected [facility] URINARY TRA[facility] INFECTION (HTR X)on 01-30-2025 ACINETOBACTER BAUMANII 0 NO [facility] ACINETOBACTER BAUMANII Not detected [facility] MAYNOR ALBICANS, PARAPSILOSIS, TROPICALIS 0 [facility] MAYNOR ALBICANS, PARAPSILOSIS, TROPICALIS Not detected [facility] MAYNOR GLABRATA 0 [facility] MAYNOR GLABRATA Not detected [facility] MAYNOR KRUSEI 0 [facility] KRUSEI Not detected [facility] CITROBACTER FREUNDII 0 [facility] CITROBACTER FREUNDII Not detected [facility] ENTEROBACTER AEROGENES, CLOACAE 0 [facility] [...] [facility] PROTEUS MIRABILIS, VULGARIS Not detected [facility] PSEUDOMONAS AERUGINOSA 0 NO [facility] PSEUDOMONAS AERUGINOSA Not detected [facility] SERRATIA MARCESCENS 0 [facility] SERRATIA MARCESCENS Not detected [facility] STAPHYLOCOCCUS AUREUS 0 [facility] STAPHYLOCOCCUS AUREUS Not detected [facility] STREPTOCOCCUS AGALACTIAE (GROUP B STREP) 0 [facility] STREPTOCOCCUS AGALACTIAE (GROUP B STREP) Not detected [facility] STREPTOCOCCUS PYOGENES (GROUP A STREP) 0 [facility] STREPTOCOCCUS PYOGENES (GROUP A STREP) Not detected [facility] Urinalysis macro (dipstick) panel (U)on 01-29-2025 Bilirubin, UA Negative Negative - 4(70) +++ mg/dL [facility] Blood, UA Positive Negative - 50 Derick/mcL [facility] Comment on above: Trace-intact Clarity, UA Clear [facility] Color, UA Yellow [facility] Glucose, UA Negative Negative - 2000(110) ++++ mg/dL [facility] Interpretation and review of laboratory results Abnormal [facility] Ketones, UA Negative Negative - 160(16) ++++ mg/dL [facility] Leukocytes, UA Negative Negative - 500+++ Julio/mcL [facility] Nitrite, UA Negative Negative - Positive [facility] pH, UA 7 5 - 9 [facility] Protein, UA Trace Negative - 2000(20) ++++ mg/dL [facility] Spec Grav, UA 1.02 1 - 1.03 [facility] Urobilinogen, UA 1.0 0.2 - 12 mg/dL [facility] HCG ( test) Ql (U)o n 01-24-2025 Interpretation and review of laboratory results Abnormal [facility] Preg Test, Ur Positive Negative [facility] US OB LIMITED 1+ FETUSESon 0 01-24-2025 [...] II, MD, PHD at 27-Jan-2025 10:23:04 AM [facility] Normal Not Available Comment on above: Order Comment: US OB TRANSVAGINAL No LMP recorded. Urinalysis macro (dipstick) panel (U)on 01-24-2025 Bilirubin, UA Negative Negative - 4(70) +++ mg/dL [facility] Blood, UA Positive Negative - 50 Derick/mcL [facility] Comment on above: Trace-Intact Clarity, UA Clear [facility] Color, UA Yellow [facility] Glucose, UA Negative Negative - 1999(110) ++++ mg/dL [facility] Interpretation and review of laboratory results Abnormal [facility] Ketones, UA Negative Negative - 160(16) ++++ mg/dL [facility] Leukocytes, UA Negative Negative - 500+++ Julio/mcL [facility] Nitrite, UA Negative Negative - Positive [facility] pH, UA 7 5 - 9 [facility] Protein, UA Negative Negative - 2000(20) ++++ mg/dL [facility] Spec Grav, UA 1.02 1 - 1.03 [facility] Urobilinogen, UA 0.2 0.2 - 12 mg/dL [facility] Urine Cultureon 01-06-2025 Bacteria identified Cx Nom (U) No Growth 2 Days PERFORMED BY: [place] [address] PATHOLOGIST CHILD PSYCHOLOGIST RAHUL HOLCOMB M.D. Normal [facility] Comment on above: Performed By: #### C UU #### [address] Amphetamine Screen Ql (U)Ord ered By: Denny Azevedo on 08-11-2023 Amphetamines Ql (U) Negative Negative [facility] Amylase [Enzymatic activity/ volume] in Serum or PlasmaOrdered By: Denny Azevedo on 08-11-2023 Amylase [Catalytic activity/Vol] 32 U/L 29-103 [facility] Aspartate aminotransferase [ Enzymatic activity/volume] in Serum or PlasmaOrdered By: Denny Azevedo on 08-11-2023 AST [Catalytic activity/Vol] 24 U/L 13-39 [facility] Automated erythrocytes count in urine sediment (number/area)Ordered By: Denny Azevedo on 08-11-2023 RBC Auto (Urine sed) [#/Area] 10-19 [HPF] 0-4 [facility] Automated leukocytes count i n urine sediment (number/area)Ordered By: Denny Azevedo on 08-11-2023 WBC Auto (Urine sed) [#/Area] 3-4 [HPF] 0-4 [facility] Barbiturates [Presence] in U rine by Screen methodOrdered By: Denny Azevedo on 08-11-2023 Barbiturates Screen Ql (U) Negative Negative [facility] Basophils Auto (Bld) [#/Vol] Ordered By: Denny Azevedo on 08-11-2023 Basophils (Bld) [#/Vol] 0.1 10*3/uL 0.0-0.2 [facility] Basophils/100 WBC Auto (Bld) Ordered By: Denny Azevedo on 08-11-2023 Basophils/100 WBC (Bld) 0.9 % . [facility] Benzodiazepines Screen Ql (U )Ordered By: Denny Azevedo on 08-11-2023 Benzodiazepines Ql (U) Negative Negative [facility] Benzoylecgonine [Presence] i n Urine by Screen methodOrdered By: Denny Azevedo on 08-11-2023 Benzoylecgonine Screen Ql (U) Negative Negative [facility] Bilirubin Test strip Ql (U)O rdered By: Denny Azevedo on 08-11-2023 Bilirubin Ql (U) Negative Negative [facility] Cannabinoids [Presence] in U rine by [...] on 08-11-2023 CO2 [Moles/Vol] 17.8 mmol/L 21.0-31.0 [facility] Chloride [Moles/volume] in S marline or PlasmaOrdered By: Denny Azevedo on 08-11-2023 Chloride [Moles/Vol] 108 mmol/L 98-107 [facility] Color Auto (U)Ordered By: French Azevedo on 08-11-2023 Color (U) Yellow Yellow [facility] Creatine kinase [Enzymatic a ctivity/volume] in Serum or PlasmaOrdered By: Denny Azevedo on 08-11-2023 CK [Catalytic activity/Vol] 225 U/L 30-223 [facility] Creatinine [Mass/volume] in Serum or PlasmaOrdered By: Denny Azevedo on 08-11-2023 Creatinine [Mass/Vol] 0.68 mg/dL 0.60-1.20 [facility] Eosinophils Auto (Bld) [#/Vo l]Ordered By: Denny Azevedo on 08-11-2023 Eosinophils (Bld) [#/Vol] 0.1 10*3/uL 0.0-0.45 [facility] Eosinophils/100 WBC Auto (Bl d)Ordered By: Denny Azevedo on 08-11-2023 Eosinophils/100 WBC (Bld) 1.3 % . [facility] Erythrocyte distribution wid th Auto (RBC) [Ratio]Ordered By: Denny Azevedo on 08-11-2023 Erythrocyte distribution width (RBC) [Ratio] 12.9 % 11.9-15.3 [facility] Ethanol [Mass/volume] in Ser um or PlasmaOrdered By: Denny Azevedo on 08-11-2023 Ethanol [Mass/Vol] mg/dL [facility] Ethanol [Mass/Vol] TNP [facility] Comment on above: Test not performed Glucose [Mass/volume] in Ser um or PlasmaOrdered By: Denny Azevedo on 08-11-2023 Glucose [Mass/Vol] 109 mg/dL 70-100 [facility] Comment on above: ADA recommended refe rence rangeRandom Glucose Reference Range is dependent on time and content of last meal. Glucose of more than 200 mg/dL in a nonstressed, ambulatory subject supports the diagnosis of Diabetes Mellitus. HCG ( test) IA.rapi d Ql (U)Ordered By: Denny Azevedo on 08-11-2023 HCG ( test) Ql (U) Negative [facility] Hematocrit Auto (Bld) [Volum e fraction]Ordered By: Denny Azevedo on 08-11-2023 Hematocrit (Bld) [Volume fraction] 40.4 % 34.0-46.4 [facility] Hemoglobin [Mass/volume] in BloodOrdered By: Denny Azevedo on 08-11-2023 Hemoglobin (Bld) [Mass/Vol] 14.2 g/dL 11.8-15.4 [facility] INR in Platelet poor plasma by Coagulation assayOrdered By: Denny Azevedo on 08-11-2023 INR Coag (PPP) [Relative time] 1.0 {INR} [facility] Comment on above: INR [...] on 08-11-2023 Ketones (U) [Mass/Vol] Trace Negative [facility] Laboratory - UrinalysisOrder ed By: Denny Azevedo on 08-11-2023 Hyaline casts LM Ql (Urine sed) 0-8 [LPF] 0-8 [facility] Leukocytes [#/volume] correc sonja for nucleated erythrocytes in Blood by Automated counOrdered By: Denny Azevedo on 08-11-2023 WBC corrected for nucl RBC Auto (Bld) [#/Vol] 7.9 10*3/uL 3.8-11.6 [facility] Lipase [Enzymatic activity/v olume] in Serum or PlasmaOrdered By: Denny Azevedo on 08-11-2023 Lipase [Catalytic activity/Vol] 13.0 U/L 11.0-82.0 [facility] Lymphocytes Auto (Bld) [#/Vo l]Ordered By: Denny Azevedo on 08-11-2023 Lymphocytes (Bld) [#/Vol] 1.8 10*3/uL 1.00-4.8 [facility] Lymphocytes/100 WBC Auto (Bl d)Ordered By: Denny Azevedo on 08-11-2023 Lymphocytes/100 WBC (Bld) 23.1 % . [facility] MCH Auto (RBC) [Entitic mass ]Ordered By: Denny Azevedo on 08-11-2023 MCH (RBC) [Entitic mass] 30.4 pg 24.7-34.3 [facility] MCHC Auto (RBC) [Mass/Vol]Or dered By: Denny Azevedo on 08-11-2023 MCHC (RBC) [Mass/Vol] 35.1 g/dL 32.0-35.0 [facility] MCV Auto (RBC) [Entitic vol] Ordered By: Denny Azevedo on 08-11-2023 MCV (RBC) [Entitic vol] 86.7 fL 80-100 [facility] Monocyte distribution width [Entitic volume] in Blood by AutomatedOrdered By: Denny Azevedo on 08-11-2023 Monocyte distribution width Auto (Bld) [Entitic vol] 17.99 % 0.00-20.00 [facility] Monocytes Auto (Bld) [#/Vol] Ordered By: Denny Azevedo on 08-11-2023 Monocytes (Bld) [#/Vol] 0.5 10*3/uL 0.0-0.8 [facility] Monocytes/100 WBC Auto (Bld) Ordered By: Denny Azevedo on 08-11-2023 Monocytes/100 WBC (Bld) 6.9 % . [facility] Neutrophils Auto (Bld) [#/Vo l]Ordered By: Denny Azevedo on 08-11-2023 Neutrophils (Bld) [#/Vol] 5.4 10*3/uL 1.8-7.7 [facility] Neutrophils/100 WBC Auto (Bl d)Ordered By: Denny Azevedo on 08-11-2023 Neutrophils/100 WBC (Bld) 67.8 % . [facility] Nitrite Test strip Ql (U)Ord ered By: Denny Azevedo on 08-11-2023 Nitrite Ql (U) Negative Negative [facility] No Panel InformationOrdered By: Denny Azevedo [...] 08-11-2023 Opiates Screen Ql (U) Negative Negative [facility] Phencyclidine Screen Ql (U)O rdered By: Denny Azevedo on 08-11-2023 Phencyclidine Ql (U) Negative Negative [facility] Platelet mean volume Auto (B ld) [Entitic vol]Ordered By: Denny Azevedo on 08-11-2023 Platelet mean volume (Bld) [Entitic vol] 7.7 fL 6.3-10.7 [facility] Platelets Auto (Bld) [#/Vol] Ordered By: Denny Azevedo on 08-11-2023 Platelets (Bld) [#/Vol] 307 10*3/uL 150-450 [facility] Potassium [Moles/volume] in Serum or PlasmaOrdered By: Denny Azevedo on 08-11-2023 Potassium [Moles/Vol] 3.3 mmol/L 3.5-5.1 [facility] Protein Auto test strip (U) [Mass/Vol]Ordered By: Denny Azevedo on 08-11-2023 Protein (U) [Mass/Vol] 30 mg/dL Negative [facility] Prothrombin time (PT)Ordered By: Denny Azevedo on 08-11-2023 PT Coag (PPP) [Time] 12.1 s 9.0-12.9 [facility] Comment on above: A hematocrit value g reater than 55% may lead to inaccurate results in coagulation testing. Patients having hematocrit values >55% require a special collection tube for coagulation studies. Please contact the laboratory at [phone] for redraw instructions. RBC Auto (Bld) [#/Vol]Ordere d By: Denny Azevedo on 08-11-2023 RBC (Bld) [#/Vol] 4.66 10*6/uL 3.60-5.00 [facility] Serum or plasma anion gap de terminationOrdered By: Denny Azevedo on 08-11-2023 Anion gap [Moles/Vol] 15.5 mmol/L 6.0-15.0 [facility] Sodium [Moles/volume] in Ser um or PlasmaOrdered By: Denny Azevedo on 08-11-2023 Sodium [Moles/Vol] 138 mmol/L 136-145 [facility] Specific gravity Auto test s trip (U) [Rel density]Ordered By: Denny Azevedo on 08-11-2023 Specific gravity (U) [Rel density] 1.026 1.001-1.03 0 [facility] Squamous epithelial cells de tection in urine sediment by light microscopyOrdered By: Denny Azevedo on 08-11-2023 Epithelial cells.squamous LM Ql (Urine sed) 0-1 [HPF] 0-2 [facility] Urea nitrogen [Mass/volume] in Serum or PlasmaOrdered By: Denny Azevedo 08-11-2023 Urea nitrogen [Mass/Vol] 11 mg/dL 7-25 [facility] Urine bacteria detection by automated methodOrdered By: Denny Azevedo on 08-11-2023 Bacteria Auto Ql (U) None seen None Seen [facility] Urine clarity by refractomet ry automatedOrdered By: Denny Azevedo 08-11-2023 Clarity Refractometry automated (U) Clear Clear [facility] Urine glucose measurement by automated test strip (mass/volume)Ordered By: Denny Azevedo on 08-11-2023 Glucose Auto test strip (U) [Mass/Vol] Normal mg/dL Normal [facility] Urine hemoglobin detection b y automated test stripOrdered By: Denny Azevedo 08-11-2023 Hemoglobin Auto test strip Ql (U) 2+ Negative [facility] Urine leukocyte esterase det ection by automated test stripOrdered By: Denny Azevedo on 08-11-2023 Leukocyte esterase Auto test strip Ql (U) Negative Negative [facility] Urobilinogen Auto test strip (U) [Mass/Vol]Ordered By: Denny Azevedo on 08-11-2023 Urobilinogen (U) [Mass/Vol] Normal mg/dL Normal [facility] WBC Auto (Bld) [#/Vol]Ordere d By: Denny Azevedo on 08-11-2023 WBC (Bld) [#/Vol] 7.9 10*3/uL 3.8-11.6 [facility] pH Auto test strip (U)Ordere d By: Denny Azevedo on 08-11-2023 pH (U) 6.5 [pH] 5.0-9.0 [facility] BILIRUBIN CONJUGATED (DIRECT )on 03-03-2022 BILI, CONJUGATED 0.3 mg/dL Critically high 0.0-0.2 [facility] Comment on above: Performed By: #### D FERNANDEZ #### [facility] [address] [place] [address] Dr. Yaritza Bojorquez CBC AUTO DIFFon 03-03-2022 BASO # 0.1 103/ul Normal 0.0-0.1 [facility] Comment on above: Performed By: #### C BC #### [facility] [address] [place] [address] Dr. Yaritza Bojorquez Basophils/100 WBC (Bld) 0.5 % Normal 0.2-2.0 [facility] Comment on above: Performed By: #### C BC #### [facility] [address] [place] [address] Dr. Yaritza Bojorquez EO # 0.0 103/ul Normal 0.0-0.7 [facility] Comment on above: Performed By: #### C BC #### [facility] [address] [place] [address] Dr. Yaritza Bojorquez Eosinophils/100 WBC (Bld) 0.1 % Critically low 0.9-7.0 [facility] Comment on above: Performed By: #### C BC #### [facility] [address] [place] [address] Dr. Yaritza Bojorquez Erythrocyte distribution width (RBC) [Ratio] 12.1 % Normal 11.0-15.0 [facility] Comment on above: Performed By: #### C BC #### [facility] [address] [place] [address] Dr. Yaritza Bojorquez Hematocrit (Bld) [Volume fraction] 45.0 % Normal 36.0-48.0 [facility] Comment on above: Performed By: #### C BC #### [facility] [address] [place] [address] Dr. Yaritza Bojorquez Hemoglobin (Bld) [Mass/Vol] 16.5 g/dL Critically high 12.0-16.0 [facility] Comment on above: Performed By: #### C BC #### [facility] [address] [place] [address] Dr. Yaritza Bojorquez IG # 0.05 10e3/ul Critically high 0.00-0.03 [facility] Comment on above: Performed By: #### C BC #### [facility] [address] [place] [address] Dr. Yaritza Bojorquez IG % 0.3 % Normal 0.0-0.5 [facility] Comment on above: Performed By: #### C BC #### [facility] [address] [place] [address] Dr. Yaritza Bojorquez LYMPH # 3.2 103/ul Normal 1.2-3.8 [facility] Comment on above: Performed By: #### C BC #### [facility] [address] [place] [address] Dr. Yaritza Bojorquez Lymphocytes/100 WBC (Bld) 21.6 % Normal 20.5-60.0 [facility] Comment on above: Performed By: #### C BC #### [facility] [address] [place] [address] Dr. Yaritza Bojorquez MANUAL DIFF REQ NO Normal [facility] Comment on above: Performed By: #### C BC #### [facility] [address] [place], [place] [id number] Dr. Yaritza Bojorquez MCH (RBC) [Entitic mass] 30.7 pg Normal 26.7-34.0 [facility] Comment on above: Performed By: #### C BC #### [facility] [address] [place] [address] Dr. Yaritza Bojorquez MCHC (RBC) [Mass/Vol] 36.7 g/dL Critically high 29.9-35.2 [facility] Comment on above: Performed By: #### C BC #### [facility] [address] [place] [address] Dr. Yaritza Bojorquez MCV (RBC) [Entitic vol] 83.8 fL Normal 81.0-99.0 [facility] Comment on above: Performed By: #### C BC #### [facility] [address] [place] [address] Dr. Yaritza Bojorquez MONO # 0.8 103/ul Normal 0.3-0.8 [facility] Comment on above: Performed By: #### C BC #### [facility] [address] [place] [address] Dr. Yaritza Bojorquez Monocytes/100 WBC (Bld) 5.3 % Normal 1.7-12.0 [facility] Comment on above: Performed By: #### C BC #### [facility] [address] [place] [address] Dr. Yaritza Bojorquez NEUT # 10.5 103/ul Critically high 1.4-6.5 [facility] Comment on above: Performed By: #### C BC #### [facility] [address] [place] [address] Dr. Yaritza Bojorquez Neutrophils/100 WBC (Bld) 72.2 % Normal 43.0-75.0 [facility] Comment on above: Performed By: #### C BC #### [facility] [address] [place] [address] Dr. Yaritza Bojorquez Platelet mean volume (Bld) [Entitic vol] 10.0 fL Normal 9.5-13.5 [facility] Comment on above: Performed By: #### C BC #### [facility] [address] [place] [address] Dr. Yaritza Bojorquez PLT 450 103/ul Normal 150-450 [facility] Comment on above: Performed By: #### C BC #### [facility] [address] [place] [address] Dr. Yaritza Bojorquez RBC 5.37 106/ul Normal 4.20-5.40 [facility] Comment on above: Performed By: #### C BC #### [facility] [address] [place] [address] Dr. Yaritza Bojorquez WBC 14.6 103/ul Critically high 4.0-11.0 [facility] Comment on above: Performed By: #### C BC #### [facility] [address] [place] [address] Dr. Yaritza Bojorquez CULTURE URINEon 03-03-2022 CULTURE URINE Culture Observations : LIGHT GROWTH OF MIXED GENITAL KRYSTAL. NO POTENTIAL PATHOGENS SEEN. Normal [facility] Comment on above: Performed By: #### U RCX #### [facility] [address] [place] [address] Dr. Yaritza Bojorquez ER URINE PROFILEon 2 Bilirubin Ql (U) Negative Normal NEGATIVE [facility] Comment on above: Performed By: #### BABAK MAERO #### [facility] [address] [place] [address] Dr. Yaritza Bojorquez Clarity (U) CLEAR Normal CLEAR [facility] Comment on above: Performed By: #### ALBA MAEICRO #### [facility] [address] [place] [address] Dr. Yaritza Bojorquez Color (U) DK. YELLOW Normal YELLOW [facility] Comment on above: Performed By: #### BABAK MAERO #### [facility] [address] [place] [address] Dr. Yaritza Bojorquez ERUAHD A micrscopic examina tion will be performed if indicated. Normal [facility] Comment on above: Performed By: #### BABAK MAERO #### [facility] [address] [place] [address] Dr. Yaritza Bojorquez Glucose Ql (U) Negative Normal NEGATIVE [facility] Comment on above: Performed By: #### E RUR, UMICRO #### [facility] [address] [place] [address] Dr. Yaritza Bojorquez Hemoglobin Ql (U) Negative Normal NEGATIVE [facility] Comment on above: Performed By: #### E RUR, UMICRO #### [facility] [address] [place] [address] Dr. Yaritza Bojorquez Ketones Ql (U) >=80 Abnormal NEGATIVE [facility] Comment on above: Performed By: #### E RUR, UMICRO #### [facility] [address] [place] [address] Dr. Yaritza Bojorquez LEUKOCYTES TRACE Abnormal NEGATIVE [facility] Comment on above: Performed By: #### E JOJO, UMICRO #### [facility] [address] [place] [address] Dr. Yaritza Bojorquez Nitrite Ql (U) Negative Normal NEGATIVE [facility] Comment on above: Performed By: #### Sandoval URIBE, UMICRO #### [facility] [address] [place] [address] Dr. Yaritza Bojorquez pH (U) 6.5 [pH] Normal 5-9 [facility] Comment on above: Performed By: #### E JOJO, UMICRO #### [facility] [address] [place] [address] Dr. Yaritza Bojorquez Protein (U) [Mass/Vol] 100 mg/dL Abnormal NEGAT TORSTEN/ TRACE [facility] Comment on above: Performed By: #### E JOJO, UMICRO #### [facility] [address] [place] [address] Dr. Yaritza Bojorquez SPEC GRAVITY 1.025 Normal 1.005-<=1. 025 [facility] Comment on above: Performed By: #### E CLAIRER, UMICRO #### [facility] [address] [place] [address] Dr. Yaritza Bojorquez UR MICRO IND INDICATED Normal [facility] Comment on above: Performed By: #### E RUCoty, UMICRO #### [facility] [address] [place] [address] Dr. Yaritza Bojorquez Urobilinogen Qn (U) 4 {Emir'U}/dL Abnormal 0.2 - 1.0 [facility] Comment on above: Performed By: #### TAYLA MAE #### [facility] [address] [place] [address] Dr. Yaritza Bojorquez PROF 14(COMP METB)on 022 Albumin [Mass/Vol] 4.5 g/dL Normal 3.4-5.0 [facility] Comment on above: Performed By: #### C MP #### [facility] [address] [place] [address] Dr. Yaritza Bojorquez Albumin/Globulin [Mass ratio] 1.2 {ratio} Normal [facility] Comment on above: Performed By: #### C MP #### [facility] [address] [place] [address] Dr. Yaritza Bojorquez ALP [Catalytic activity/Vol] 48 U/L Normal 46-116 [facility] Comment on above: Performed By: #### C MP #### [facility] [address] [place] [address] Dr. Yaritza Bojorquez ALT [Catalytic activity/Vol] 25 U/L Normal 14-59 [facility] Comment on above: Performed By: #### C MP #### [facility] [address] [place] [address] Dr. Yaritza Bojorquez Anion gap [Moles/Vol] 17.8 mmol/L Normal [facility] Comment on above: Performed By: #### C MP #### [facility] [address] [place] [address] Dr. Yaritza Bojorquez AST [Catalytic activity/Vol] 11 U/L Critically low 15-37 [facility] Comment on above: Performed By: #### C MP #### [facility] [address] [place] [address] Dr. Yaritza Bojorquez Bilirubin [Mass/Vol] 1.4 mg/dL Critically high 0.2-1.0 [facility] Comment on above: Performed By: #### C MP #### [facility] [address] [address] [address] Yaritza Bojorquez Calcium [Mass/Vol] 9.3 mg/dL Normal 8.5-10.1 [facility] Comment on above: Performed By: #### C MP #### [facility] [address] [address] [address] Yaritza Bojorquez Chloride [Moles/Vol] 98 mmol/L Normal 98-107 [facility] Comment on above: Performed By: #### C MP #### [facility] [address] [address] [address] Yaritza Bojorquez CO2 [Moles/Vol] 19.1 mmol/L Critically low 21.0-32.0 [facility] Comment on above: Performed By: #### C MP #### [facility] [address] [place] [address] Dr. Yaritza Bojorquez Creatinine [Mass/Vol] 0.95 mg/dL Normal 0.55-1.02 [facility] Comment on above: Performed By: #### C MP #### [facility] [address] [address] [address] Yaritza Bojorquez EGFR-AF BRAZILIAN >60 Normal >=60 [facility] Comment on above: Performed By: #### C MP #### [facility] [address] [place] [address] Dr. Yaritza Bojorquez EGFR-NON AF BRAZILIAN >60 Normal >=60 [facility] Comment on above: Performed By: #### C MP #### [facility] [address] [place] [address] Dr. Yaritza Bojorquez Globulin (S) [Mass/Vol] 3.6 g/dL Normal [facility] Comment on above: Performed By: #### C MP #### [facility] [address] [place] [place] [address] Dr. Yaritza Bojorquez Glucose [Mass/Vol] 138 mg/dL Critically high 74-106 T [facility] Comment on above: Performed By: #### C MP #### [facility] [address] [place] [address] Dr. Yaritza Bojorquez Potassium [Moles/Vol] 2.9 mmol/L Critically low 3.5-5.1 [facility] Comment on above: Performed By: #### C MP #### [facility] [address] [place] [address] Dr. Yaritza Bojorquez Protein [Mass/Vol] 8.1 g/dL Normal 6.4-8.2 [facility] Comment on above: Performed By: #### C MP #### [facility] [address] [place] [address] Dr. Yaritza Bojorquez Sodium [Moles/Vol] 132 mmol/L Critically low 136-145 Th [facility] Comment on above: Performed By: #### C MP #### [facility] [address] [place] [address] Dr. Yaritza Bojorquez Urea nitrogen [Mass/Vol] 8.0 mg/dL Normal 7.0-18.0 [facility] Comment on above: Performed By: #### C MP #### [facility] [address] [place] [address] Dr. Yaritza Bojorquez Urea nitrogen/Creatinine [Mass ratio] 8.4 mg/mg Normal [facility] Comment on above: Performed By: #### C MP #### [facility] [address] [place] [address] Dr. Yaritza Bojorquez URINE MICROSCOPIC ONLYon BACTERIA MODERATE Abnormal NONE SEEN [facility] Comment on above: Performed By: #### BABAK MAERO #### [facility] [address] [place] [address] Dr. Yaritza Bojorquez Bacteria identified Cx Nom (U) INDICATED Normal [facility] Comment on above: Performed By: #### BABAK MAERO #### [facility] [address] [place] [address] Dr. Yaritza Bojorquez CAST NONE SEEN Normal NONE SEEN [facility] Comment on above: Performed By: #### Sandoval URIBE UMICRO #### [facility] [address] [place] [address] Dr. Yaritza Bojorquez Crystals LM Nom (Urine sed) NONE SEEN Normal NONE SEEN [facility] Comment on above: Performed By: #### E RUR, UMICRO #### [facility] [address] [address] [address] Yaritza Bojorquez Epithelial cells LM Ql (Urine sed) MANY Abnormal NONE SEEN /RARE [facility] Comment on above: Performed By: #### E RUR, UMICRO #### [facility] [address] [address] [address] Yaritza Bojorquez MUCOUS SMALL Abnormal NONE SEEN [facility] Comment on above: Performed By: #### E RUR, UMICRO #### [facility] [address] [address] [address] Yaritza Bojorquez RBC 2-5 Abnormal 0-2 [facility] Comment on above: Performed By: #### E RUR, UMICRO #### [facility] [address] [place] [address] Dr. Yarizta Bojorquez WBC 5-10 Abnormal NONE SEEN [facility] Comment on above: Performed By: #### E RUR, UMICRO #### [facility] [address] [place] [address] Dr. Yaritza Bojorquez XR ABD FLAT UP_PA [...] Normal [facility]on 07-29 SARS-CoV-2 (COVID-19) RNA KOLE+probe Ql (Unsp [...] for this test is supported by the [employer] of Health and Human Service's (HHS's) declaration [...] with SARS-CoV-2. Performed By: #### C [facility] #### [facility] [address] [place] [address] Dr. Yaritza Bojorquez Provider Note - ED [...] No Current Medications SIGNIFICANT EVENTS: Immunizations Description:Tdap COMMISSIONS ANALYST: Is : no(1) Is : no(1) RESULTS/VITAL SIGNS VITAL SIGNS: T PRBP SpO2O2(LPM) %FiO2 Method 22-Jun-2019 18:54:[id number] 99 room air, no respiratory support 22-Jun-2019 18:07:[id number] 97 room air, no respiratory support MEDICAL [...] Final Verification: completed Procedure performed by: me Box Sealing Machine Operator(s): none Findings: grossly normal anatomy Specimen: [...] From Triage - ED 22-Jun-2019 18:07 Normal [facility] Risk Screen - Adult Emergenc yon 06-22-2019 Risk Screen - Adult Emergency Preferred Language: Preferred Language: Preferred Language for Discussing Health Care (patient/designee)Maltese Advanced Directives: Advance Directive/DNRno Family Violence Adult: Abuse Screen: Are you or have you been threatened or abused physically, emotionally, or sexually by anyoneno Learning Assessment (Patient): Learning Assessment (Patient): Patient is Able to be Assessed for Learningyes Factors Influencing Readiness to Learnacuteness of illness Factors that Impact Ability to Learnnone Devices/Methods Used to Communicatenone Learning Preferencesaudio Cultural Considerationsnone Developmental Considerationsnone Catholic Considerationsnone Learning Assessment (Other Learner): Learning Assessment (Other Learner): Other learner availableno Pressure Injury/TB/Substance: Pressure Injury: Pressure Injury Present on Admissionno Do you have a coughno Substance Use Current or Former Historynever: Cigarette/Tobacco, e-Cigarette/Vaping, Alcohol, Street Drugs Admission Risk Screen: Significant IndicatorsComplete CAGE: CAGE: Is this an injured patient at a Trauma Center ([place]/[facility]/[place]/[facility]/[place]): yes C: Have you ever felt you needed to Cut down on your drinking: no A: Have people Annoyed you by criticizing your drinking: no G: Have you ever felt Guilty about drinking: no E: Have you ever felt you needed a drink first thing in the morning (Eye-gum mixer) to steady your nerves or to get rid of hangover: no Electronic Signatures: Mehdi Chaney (MALU) (Signed 22-Jun-2019 18:11) Authored: Preferred Language, Advanced Directives, Family Violence Adult, Learning Assessment (Patient), Learning Assessment (Other Learner), Pressure Injury/TB/Substance, CAGE Last Updated: 22-Jun-2019 18:11 by Mehdi Chaney (MALU) [facility] Triage - EDon 06-22-2019 Triage - [...] Accompanied By: self Language: Spoken Language Preferred: Maltese PRIMARY ASSESSMENT CHENTE GONZALEZ's primary assessment is [...] 22-Jun-2019 18:40 by Nitin Singer (AYALA) Normal [facility] Vital Signs Date Time Vital Sign Value Performing Clinician Facility 06-12-2025 09:50-0400 Body mass index (BMI) [Ratio] 37.61 kg/m2 [employer] DO Work Phone: [facility] 06-12-2025 09:50-0400 Body weight 102.51 kg Jaspreet Angie DO Work Phone: [facility] 06-12-2025 09:50-0400 Diastolic blood pressure 72 mm[Hg] Jaspreet Angie DO Work Phone: [facility] 06-12-2025 09:50-0400 Systolic blood pressure 128 mm[Hg] Jaspreet Angie DO Work Phone: [facility] 06-02-2025 11:40-0400 Body mass index (BMI) [Ratio] 37.28 kg/m2 Willy Avila NP Work Phone: [facility] 06-02-2025 11:40-0400 Body weight 101.61 kg Willy Avila NP Work Phone: [facility] 06-02-2025 11:40-0400 Diastolic blood pressure 80 mm[Hg] Willy Austin PUBLICITY WRITER Work Phone: [facility] 06-02-2025 11:40-0400 Systolic blood pressure 126 mm[Hg] Willy Austin PUBLICITY WRITER Work Phone: [facility] 05-15-2025 10:03-0400 Body mass index (BMI) [Ratio] 36.08 kg/m2 Deyanira Mccloud PA Work Phone: [facility] 05-15-2025 10:03-0400 Body weight 98.34 kg Deyanira Juan PA Work Phone: [facility] 05-15-2025 10:03-0400 Diastolic blood pressure 78 mm[Hg] Deyanira Mccloud PA Work Phone: [facility] 05-15-2025 10:03-0400 Systolic blood pressure 140 mm[Hg] Deyanira Mccloud PA Work Phone: [facility] 04-30-2025 15:05-0400 Body mass index (BMI) [Ratio] 35.01 kg/m2 Jaspreet Angie DO Work Phone: [facility] 04-30-2025 15:05-0400 Body weight 95.44 kg Jaspreet Angie DO Work Phone: [facility] 04-30-2025 15:05-0400 Diastolic blood pressure 70 mm[Hg] Jaspreet Angie DO Work Phone: [facility] 04-30-2025 15:05-0400 Systolic blood pressure 120 mm[Hg] Jaspreet Angie DO Work Phone: [facility] 04-17-2025 10:41-0400 Body mass index (BMI) [Ratio] 33.91 kg/m2 Deyanira Juan PA Work Phone: [facility] 04-17-2025 10:41-0400 Body weight 92.44 kg Deyanira Juan PA Work Phone: [facility] 04-17-2025 10:41-0400 Diastolic blood pressure 86 mm[Hg] Deyanira Mccloud PA Work Phone: [facility] 04-17-2025 10:41-0400 Systolic blood pressure 134 mm[Hg] Deyanira KABA Work Phone: [facility] 04-03-2025 10:50-0400 Body mass index (BMI) [Ratio] 33.35 kg/m2 Jaspreet Angie DO Work Phone: [facility] 04-03-2025 10:50-0400 Body weight 90.9 kg Jaspreet Angie DO Work Phone: [facility] 04-03-2025 10:50-0400 Diastolic blood pressure 72 mm[Hg] Jaspreet Angie DO Work Phone: [facility] 04-03-2025 10:50-0400 Systolic blood pressure 130 mm[Hg] Jaspreet Angie DO Work Phone: [facility] 03-05-2025 11:16-0400 Body mass index (BMI) [Ratio] 31.62 kg/m2 Jaspreet Angie DO Work Phone: [facility] 03-05-2025 11:16-0400 Body weight 86.18 kg Jaspreet Angie DO Work Phone: [facility] 03-05-2025 11:16-0400 Diastolic blood pressure 78 mm[Hg] Jaspreet Angie DO Work Phone: [facility] 03-05-2025 11:16-0400 Systolic blood pressure 128 mm[Hg] Jaspreet Angie DO Work Phone: [facility] 01-29-2025 10:57-0400 Body mass index (BMI) [Ratio] 31.53 kg/m2 Willy Avila PUBLICITY WRITER Work Phone: [facility] 01-29-2025 10:57-0400 Body weight 85.96 kg Willy Avila PUBLICITY WRITER Work Phone: [facility] 01-29-2025 10:57-0400 Diastolic blood pressure 80 mm[Hg] Willy Avila PUBLICITY WRITER Work Phone: [facility] 01-29-2025 10:57-0400 Systolic blood pressure 136 mm[Hg] Willy Avila PUBLICITY WRITER Work Phone: [facility] 01-24-2025 11:42-0400 Diastolic blood pressure 70 mm[Hg] Noms Nurse [facility] 01-24-2025 11:42-0400 Systolic blood pressure 142 mm[Hg] Nom Nurse [facility] 01-24-2025 11:21-0400 Body mass index (BMI) [Ratio] 32.01 kg/m2 Nom Nurse [facility] 01-24-2025 11:21-0400 Body weight 87.26 kg [facility] Nurse [facility] 12-23-2024 13:51-0400 Body mass index (BMI) [Ratio] 31.35 kg/m2 Jaspreet Angie DO Work Phone: [facility] 12-23-2024 13:51-0400 Body weight 85.46 kg Jaspreet Angie DO Work Phone: [facility] 12-23-2024 13:51-0400 Diastolic blood pressure 78 mm[Hg] Jaspreet Angie DO Work Phone: [facility] 12-23-2024 13:51-0400 Systolic blood pressure 118 mm[Hg] Jaspreet Angie DO Work Phone: [facility] 08-11-2023 22:07-0500 Diastolic blood pressure 64 mm[Hg] PHYSICIAN NO [facility] 08-11-2023 22:07-0500 Heart rate 71 /min PHYSICIAN NO [facility] 08-11-2023 22:07-0500 Respiratory rate 18 /min PHYSICIAN NO [facility] 08-11-2023 22:07-0500 SaO2% (BldA) [Mass fraction] 99 % PHYSICIAN NO [facility] 08-11-2023 22:07-0500 Systolic blood pressure 126 mm[Hg] PHYSICIAN NO [facility] 08-11-2023 19:17-0500 Body height 170.18 cm PHYSICIAN NO [facility] 08-11-2023 19:17-0500 Body weight 80.73 kg PHYSICIAN NO [facility] Encounters Encounter Date Encounter Type Care Provider Facility Start: 06-12-2025 End: 06-12-2025 Bamboo flowsheet Jaspreet Angie DO Work Phone: [facility] Start: 06-12-2025 End: 06-12-2025 Bamboo flowsheet Jaspreet Angie DO Work Phone: [facility] Start: 06-12-2025 End: 06-12-2025 ambulatory JASPREET ANGIE Not Available Start: 06-12-2025 End: 06-12-2025 Office outpatient visit 15 minutes Jaspreet Angie DO Work Phone: [facility] Comment on above: Third trimester preg reshma ([facility]); 37 weeks gestation of ([facility]) Start: 06-02-2025 End: 06-02-2025 Clinisync Result Encounter Jaspreet Angie DO Work Phone: [facility] External Department Unsolicited Start: 06-02-2025 End: 06-02-2025 Clinisync Result Encounter Jaspreet Angie DO Work Phone: [facility] External Department Unsolicited Start: 06-02-2025 End: 06-02-2025 ambulatory WILLY AUSTIN Not Available Start: 06-02-2025 End: 06-02-2025 Office outpatient visit 15 minutes Willy Avila PUBLICITY WRITER Work Phone: [facility] Comment on above: 35 weeks gestation o f ([facility]); Third trimester ([facility]) Start: 05-26-2025 End: 05-26-2025 Clinisync Result Encounter Ajspreet Angie DO Work Phone: [facility] External Department [...] [facility] Start: 05-15-2025 End: 05-15-2025 Bamboo flowsheet Deyanira KABA Work Phone: [facility] Start: 05-15-2025 End: 05-15-2025 ambulatory DEYANIRA MCCLOUD Not Available Start: 05-15-2025 End: 05-15-2025 Office outpatient visit 15 minutes Deyanira KABA Work Phone: [facility] Comment on above: 33 weeks gestation o f ([facility]); Third trimester ([facility]); Gestational diabetes mellitus (GDM), antepartum, gestational diabetes method of control unspecified ([facility]) Start: 04-30-2025 End: 04-30-2025 Office outpatient visit 15 minutes Jaspreet Angie DO Work Phone: [facility] Comment on above: 31 weeks gestation o f ([facility]); Third trimester ([facility]); Gestational diabetes mellitus (GDM), antepartum, gestational diabetes method of control unspecified ([facility]) Start: 04-30-2025 End: 04-30-2025 ambulatory JASPREET ANGIE Not Available Start: 04-17-2025 End: 04-17-2025 Bamboo flowsheet Deyanira KABA Work Phone: [facility] Start: 04-17-2025 End: 04-17-2025 Bamboo flowsheet Deyanira KABA Work Phone: [facility] Start: 04-17-2025 End: 04-17-2025 ambulatory DEYANIRA MCCLOUD Not Available Start: 04-17-2025 End: 04-17-2025 Office outpatient visit 15 minutes Deyanira KABA Work Phone: [facility] Comment on above: Size of fetus incons istent with dates in second trimester ([facility]) (Primary Dx); Third trimester ([facility]); 29 weeks gestation of ([facility]) Start: 04-03-2025 End: 04-03-2025 Bamboo flowsheet Jaspreet Angie DO Work Phone: [facility] Start: 04-03-2025 End: 04-03-2025 Bamboo flowsheet Jaspreet Angie DO Work Phone: [facility] Start: 04-03-2025 End: 04-03-2025 ambulatory JASPREET ANGIE Not Available Start: 04-03-2025 End: 04-03-2025 Office outpatient visit 15 minutes Jaspreet Angie DO Work Phone: [facility] Comment on above: Second trimester pre gnancy ([facility]); 27 weeks gestation of ([facility]) Start: 03-28-2025 End: 03-28-2025 Chart abstracting Scanning Provider External Maternal- Medicine at [facility] Start: 03-21-2025 End: 03-21-2025 Clinisync [...] Comment on above: Second trimester pre gnancy ([facility]); 23 weeks gestation of ([facility]); Diabetes mellitus screening; Well woman exam [...] Unsolicited Start: 01-29-2025 End: 01-29-2025 Bamboo flowsheet Willyprashant Avila PUBLICITY WRITER Work Phone: [facility] Start: 01-29-2025 End: 01-30-2025 Bamboo flowsheet Willy Austin PUBLICITY WRITER Work Phone: [facility] Start: 01-29-2025 End: 01-30-2025 External Result Encounter Willy Austin PUBLICITY WRITER Work Phone: [facility] External Department Unsolicited Start: 01-29-2025 End: 01-29-2025 ambulatory WILLY AUSTIN Not Available Start: 01-29-2025 End: 01-29-2025 Office outpatient visit 15 minutes Willy Avila PUBLICITY WRITER Work Phone: [facility] Comment on above: Second trimester pre gnancy; 18 weeks gestation of Start: 01-24-2025 End: 01-24-2025 Office outpatient visit 5 minutes [facility] Angie Nurse [facility] Comment on above: GA: 17w3d Start: 01-24-2025 End: 01-24-2025 ambulatory JASPREET ANGIE Not Available Start: 01-06-2025 End: 01-06-2025 ambulatory Cristal Butt Marker Facility:[facility] Start: 01-06-2025 End: 01-06-2025 Departed Referred Cristal Marker DO Work Phone: [facility] Path Spec [facility] [...] 08-11-2023 Emergency department patient visit PHYSICIAN [facility] Work Phone: Start: 03-03-2022 End: [...] Prov Start: 03-06-2025 GLUCOSE 1 HOUR Jaspreet [employer] [facility] hor[facility] DO Work Phone: Start: 03-05-2025 Urnls dip stick/tabl et rgnt non-auto w/o micrscp Jaspreet Angie DO Work Phone: Start: 03-05-2025 IGP,APTIMA HPV,AGE GDLN [facility] Work Phone: Start: 02-01-2025 Iaad ia hepatitis b surface antigen Not In System Ref Prov Start: 01-31-2025 BOX TEST [facility] DO Work Phone: Start: 01-31-2025 Antibody rubella [...] URINARY TRACT INFECT ION (HTRX) Willy Avila PUBLICITY WRITER Work Phone: Start: 01-29-2025 Urnls dip stick/tabl et rgnt non-auto w/o micrscp Willy Avila PUBLICITY WRITER Work Phone: Start: 01-24-2025 Urnls dip stick/tabl [...] encounter procedure 06/19/2025 9:40 AM EDT Routine [facility] [address] [place] [address] Deyanira Mccloud PA [address] [place], [facility] Start: 06-12-2025 End: 06-12-2025 Patient encounter procedure 06/12/2025 9:40 AM EDT Routine [facility]BG[facility] Alberto [address] [place] [address] Jaspreet Adams DO [address] [place] [place], [place] [id number] [facility] Start: 06-02-2025 End: 06-02-2026 CULTURE, GROUP B STREP WITH SUSCEPTIBLITY CULTURE, GROUP B STREP WITH SUSCEPTIBLITY Lab Routine Third trimester ([facility]) Expected: 06/02/2025, Expires: 06/02/2026 [facility] Work Phone: Comment on above: Expected: 06/02/2025 , Expires: 06/02/2026 Start: 06-02-2025 End: 06-02-2025 Patient encounter procedure 06/02/2025 11:20 AM EDT Routine [facility] [address] [place] [id number] Willy Avila NP [address] [place] [address] [facility] [place] [facility] Start: 04-30-2025 End: 10-28-2025 US biophysical profile w non stress test US biophysical profile w non stress test Imaging Routine Gestational diabetes mellitus (GDM), antepartum, gestational diabetes method of control unspecified ([facility]) Expected: 04/30/2025 (Approximate), Expires: 10/28/2025 [facility] Work Phone: Comment on above: Expected: 04/30/2025 (Approximate), Expires: 10/28/2025 Start: 04-28-2025 Influenza vaccination Influenza Vacc ine [facility] Start: 04-17-2025 End: 08-17-2025 US for US OB follow up transabdominal approach Imaging Routine Size of fetus inconsistent with dates in second trimester ([facility]) Expected: 04/17/2025, Expires: 08/17/2025 [facility] Work Phone: Comment on above: Expected: 04/17/2025 , Expires: 08/17/2025 Start: 04-17-2025 End: 04-17-2025 Patient encounter procedure 04/17/2025 9:50 AM EDT Routine [facility] [address] [place] [phone] Deyanira Mccloud PA [address] [place] [address] [facility] [place] [facility]BG[facility] Alber[facility] Start: 04-03-2025 End: 04-03-2025 ambulatory 04/03/2025 1:30 PM EDT Support Visit Maternal- Medicine at [facility] [address] [place] [id number] Rimma Richey RN [address] [facility], [address] [place] [address], [place] [address] Nikky Gonzalez, BLADE Brian, Consuelo, [place] [address] [place] [address] [facility]- [facility] at [facility] Start: 04-03-2025 End: 04-03-2025 Patient encounter procedure 04/03/2025 10:40 AM EDT Routine [facility] [address] [place] [phone] Jaspreet Adams, DO [address] [place] [address] [facility] Start: 03-19-2025 End: 03-19-2025 Professional / ancillary services management 03/19/2025 9:30 AM EDT Ancillary Procedure [facility] [address] [place] [address] [facility] Start: 03-05-2025 End: 03-05-2026 CBC panel - Blood by Automated count CBC Lab Routine Diabetes mellitus screening Expected: 03/05/2025 (Approximate), Expires: 03/05/2026 [facility] Comment on above: Expected: 03/05/2025 (Approximate), Expires: 03/05/2026 Start: 03-05-2025 End: 03-05-2026 Measurement of glucose 1 hour after glucose challenge for glucose tolerance test Glucose tolerance, 1 hour Lab Routine Diabetes mellitus screening Expected: 03/05/2025 (Approximate), Expires: 03/05/2026 [facility] Comment on above: Expected: 03/05/2025 (Approximate), Expires: 03/05/2026 Start: 03-05-2025 End: 03-05-2025 Patient encounter procedure 03/05/2025 11:00 AM EDT Routine [facility] [address] [place] [phone] Jaspreet Adams, DO [address] [place], [place] [id number] Arrived [facility] Comment on above: Arrived Start: 02-27-2025 End: 02-27-2025 Patient encounter procedure 02/27/2025 8:50 AM EDT Routine [facility] [address] [place] [address] Jaspreet Adams, [address] [place] [address] [facility] Start: 02-12-2025 End: 02-12-2025 Clinical Support 02/12/2025 9:00 AM EDT Clinical Support [facility] [address] [place] [address] [facility] Start: 01-29-2025 End: 01-29-2025 Patient encounter procedure 01/29/2025 10:20 AM EDT Routine [facility] [address] [place] [address] Willy Avila, PUBLICITY WRITER [address] [place] [address] [facility] Start: 01-24-2025 End: 01-24-2026 ABO/Rh ABO/Rh Lab Routine Missed menses , unspecified gestational age Expected: 01/24/2025 (Approximate), Expires: 01/24/2026 [facility] Comment on above: Expected: 01/24/2025 (Approximate), Expires: 01/24/2026 Start: 01-24-2025 End: 03-26-2025 Alpha fetoprotein, maternal Alpha fetoprotein, maternal Lab Routine Encounter for supervision of normal first in first trimester Expected: 01/24/2025 (Approximate), Expires: 03/26/2025 [facility] Comment on above: Expected: 01/24/2025 [...] AM EDT Initial [facility] [address] [place] [phone] [facility] Start: 01-10-2025 End: 01-10-2025 Professional / ancillary services management 01/10/2025 9:00 AM EDT Ancillary Procedure [facility] [address] [place] [phone] [facility] Start: 01-06-2025 Bacteria identified in Urine by Culture Urine Culture [facility] Start: 01-06-2025 Urine culture [facility] Start: 2018 Screening for malign ant neoplasm of cervix Pap Smear [facility] Start: 2016 DTaP,Tdap and Td Vaccines (1 - Tdap) DTaP,Tdap and Td Vaccines (1 - Tdap) [facility] Start: 12-07-2015 Adult BMI Screening Adult BMI Screen ing [facility] Start: 2009 Depression Screening Depression Scre ening [facility] Start: 2009 Tobacco Screening Tobacco Screening [facility] Bacteria identified in Urine by Culture Urine culture Microbiology Routine Missed menses Ordered: 01/24/2025 [facility] Comment on above: Ordered: 01/24/2025 Bacteria identified in Urine by Culture Urine culture Microbiology Routine Second trimester Ordered: 01/29/2025 [facility] Work Phone: Comment on above: Ordered: 01/29/2025 CBC W Auto Different ial panel - Blood CBC and differential Lab Routine Missed menses , unspecified gestational age Ordered: 01/24/2025 [facility] Comment on above: Ordered: 01/24/2025 Cytology Cervical or vaginal smear or scraping study Pap Smear Pathology and Cytology Routine Well woman exam with routine gynecological exam Ordered: 03/05/2025 [facility] Work Phone: Comment on above: Ordered: 03/05/2025 Hemoglobin A1c/Hemoglobin.total in Blood Hemoglobin A1c Lab Routine Missed menses , unspecified gestational age Ordered: 01/24/2025 [facility] Comment on above: Ordered: 01/24/2025 Hepatitis B virus surface Ag [Presence] in Serum or Plasma by Immunoassay Hepatitis B surface antigen Lab Routine Missed menses , unspecified gestational age Ordered: 01/24/2025 [facility] Comment on above: Ordered: 01/24/2025 Hepatitis C virus Ab [Presence] in Serum or Plasma by Immunoassay Hepatitis C antibody Lab Routine Missed menses , unspecified gestational age Ordered: 01/24/2025 [facility] Comment on above: Ordered: 01/24/2025 HIV-1/HIV-2 antigen/antibody combination immunoassay HIV-1 and HIV-2 antibodies Lab Routine Missed menses , unspecified gestational age Ordered: 01/24/2025 [facility] Comment on above: Ordered: 01/24/2025 Patient Education Head injury in adults Blunt Abdominal Trauma ED Blunt Chest Trauma ED [facility] Work Phone: Patient referral [facility] Work Phone: Reagin Ab [Presence] in Serum by RPR RPR Lab Routine Missed menses , unspecified gestational age Ordered: 01/24/2025 [facility] Comment on above: Ordered: 01/24/2025 Rubella antibody, IgG Rubella an tibody, IgG Lab Routine Missed menses , unspecified gestational age Ordered: 01/24/2025 [facility] Comment on above: Ordered: 01/24/2025 Immunizations Immunization Date Immunization Notes Care Provider Fa cili 08-11-2023 tetanus toxoid, redu christie diphtheria toxoid, and acellular pertussis vaccine, adsorbed PHYSICIAN NO [facility] Payers Date Payer Category Payer Private Health Insurance [facility] MEDICAID [id number] 2025 Self-pay [id number] 2024 Medicaid [id number] 2024 Medicaid [id number] 1997 Unknown [id number] 2.16.840.1.224874.3.579.2. 593 1997 Unknown [id number] 2.16.840.1.810375.3.579.2. 593 1997 Unknown [id number] 2.16.840.1.968331.3.579.2. 1259 1997 Unknown [id number] 2.16.840.1.979522.3.579.2. 1259 1997 Unknown [id number] 2.16.840.1.464862.3.579.2. 1259 1997 Unknown [id number] 2.16.840.1.037802.3.579.2. 1259 1997 Unknown [id number] 2.16.840.1.805444.3.579.2. 1259 1997 Unknown [id number] 2.16.840.1.321608.3.579.2. 1259 1997 Unknown [id number] 2.16.840.1.246021.3.579.2. 9 1997 Unknown [id number] 2.16.840.1.897545.3.579.2. 9 1997 Unknown [id number] 2.16.840.1.043239.3.579.2. 1258 1997 Unknown [id number] 2.16.840.1.158450.3.579.2. 9 1997 Unknown [id number] 2.16.840.1.649830.3.579.2. 1258 1997 Unknown [id number] 2.16.840.1.996956.3.579.2. 9 1997 Unknown [id number] 2.16840.1.823816.3.579.2. 1258 1997 Unknown [id number] 2.16.840.1.329056.3.579.2. 9 1959 Unknown [id number] Unknown Regular Auto/Liability 78094 [id number] Unknown HCAP/HFA/FAP Active [id number] Unknown [id number] 2.16.840.1.712450.3.579.2. 531 Unknown Regular Auto/Liability 23-47 [id number] Unknown HCAP/HFA/FAP Active [id number] Social History Date Type Detail Facility Start: 08-11-2023 End: 08-11-2023 Tobacco smoking status VAIS Never smoked tobacco (finding) [facility] Start: 1995 Sex Assigned At Female F [facility] Tobacco smoking stat us VAIS Tobacco smoking consumption unknown [facility] Start: 12-22-2024 Gender identity Identifies as female gender (finding) [facility] Start: 05-26-2025 Sexual orientation Not on file [facility] Work Phone: Start: 01-07-2025 End: 03-26-2025 Sex Female (finding) [facility] Start: 10-08-2024 [facility] Start: 1997 Sex assigned at Not on file P [employer] [facility] Start: 05-26-2025 History of Social function [facility] Work Phone: Start: 11-09-2022 Sex Female [facility] Medical Equipment Procedure Code Equipment Code Equipment Origin al Text Equipment Identifier Dates 1 strip by In Vi tro route Daily Use in the morning prior to breakfast, 1 hour after each meal for a total of 4times daily. [id number] Start: 03-24-2025 End: 04-23-2025 1 each by In Vit ro route Daily Use to check FSBS four times daily [id number] Start: 03-24-2025 End: 04-23-2025 Clinical Notes 12-23-2024 [...] nursing note reviewed. Exam conducted with a filling separator present. Vitals: Estimated body mass index is 37.61 kg/m as calculated from the following: Height as of 21: 5' 5 . Weight as of this encounter: 226 lb. BP: 128/72 Patient's last menstrual period was 10/04/2024 (approximate). ASSESSMENT & PLAN ICD-10-CM 1. Third trimester ([facility]) Z34.93 POCT urinalysis dipstick manually resulted 2. 37 weeks gestation of ([facility]) Z3A.37 Patient presents today for a [...] history on file. documented in this encounter [facility] 06-02-2025 History of Present illness Narrative Reason for Appointment: Patient ID: Chente Gonzalez is a 29 y.o. female who presents for Routine Visit (35w 6d) Patient presents today for Return OB appointment. MEDICATIONS Current Outpatient Medications Medication Instructions Alcohol Swabs (Alcohol Prep Pad) 70 % pads 1 Pad, Topical, Daily, Use four times daily to check FSBS. Blood Glucose Monitoring Suppl ([employer] Glucometer) w/Device kit 1 kit, Does not [...] nursing note reviewed. Exam conducted with a filling separator present. Vitals: Estimated body mass index is 37.28 kg/m as calculated from the following: Height as of 21: 5' 5 . Weight as of this encounter: 224 lb. BP: 126/80 Patient's last menstrual period was 10/04/2024 (approximate). ASSESSMENT & PLAN ICD-10-CM 1. 35 weeks gestation of ([facility]) Z3A.35 POCT urinalysis dipstick manually resulted 2. Third trimester ([facility]) Z34.93 CULTURE, GROUP B STREP WITH [...] Willy Avila NP documented in this encounter [facility] 05-15-2025 History of Present illness [...] to check FSBS. Blood Glucose Monitoring Suppl ([employer] Glucometer) w/Device kit 1 kit, Does [...] PLAN ICD-10-CM 1. 33 weeks gestation of ([facility]) Z3A.33 POCT urinalysis dipstick manually resulted 2. Third trimester ([facility]) Z34.93 POCT urinalysis dipstick manually resulted 3. Gestational diabetes mellitus (GDM), antepartum, gestational diabetes method of control unspecified ([facility]) O24.419 Return OB: Patient presents today [...] of: SENDY Fan documented in this encounter [facility] 04-30-2025 History of Present illness [...] nursing note reviewed. Exam conducted with a filling separator present. Vitals: Estimated body mass index is 35.01 kg/m as calculated from the following: Height as of 21: 5' 5 . Weight as of this encounter: 210 lb 6.4 oz. BP: 120/70 Patient's last menstrual period was 10/04/2024 (approximate). ASSESSMENT & PLAN ICD-10-CM 1. 31 weeks gestation of ([facility]) Z3A.31 POCT urinalysis dipstick manually resulted 2. Third trimester ([facility]) Z34.93 POCT urinalysis dipstick manually resulted 3. Gestational diabetes mellitus (GDM), antepartum, gestational diabetes method of control unspecified ([facility]) O24.419 US biophysical profile w [...] Jaspreet Adams DO documented in this encounter [facility] 04-17-2025 History of Present illness [...] ASSESSMENT & PLAN ICD-10-CM 1. Third trimester ([facility]) Z34.93 POCT urinalysis dipstick manually resulted 2. 29 weeks gestation of ([facility]) Z3A.29 POCT urinalysis dipstick manually resulted [...] of: SENDY Fan documented in this encounter [facility] 04-03-2025 History of Present illness Narrative Reason for Appointment: Patient ID: Chente Gonzalez is a 29 y.o. female who presents for Routine Visit Patient presents today for Return OB appointment. MEDICATIONS Current Outpatient Medications Medication Instructions Alcohol Swabs (Alcohol Prep Pad) 70 % pads 1 Pad, Topical, Daily, Use four times daily to check FSBS. Blood Glucose Monitoring Suppl ([employer] Glucometer) w/Device kit 1 kit, Does not [...] nursing note reviewed. Exam conducted with a filling separator present. Vitals: Estimated body mass index is 33.35 kg/m as calculated from the following: Height as of 12/01/20: 5' 5 . Weight as of this encounter: 200 lb 6.4 oz. BP: 130/72 Patient's last menstrual period was 10/04/2024 (approximate). ASSESSMENT & PLAN ICD-10-CM 1. Second trimester ([facility]) Z34.92 Urine dip 2. 27 weeks gestation of ([facility]) Z3A.27 Urine dip Patient presents today for a routine obstetrics appointment. Patient is currently 27w2d with a Estimated Date of Delivery: 07/01/25. Patient brought in FSBS logs for review and patient still desires to hold off on [facility] referral at this time, referral was previously sent on 03/24/25 and when contacted by [facility] patient will inform them that she will postpone scheduling at this time. Patient to return to clinic in 2 weeks for routine OB appointment. Documented by Nissa Matt LPN on behalf of: Jaspreet Adams DO documented in this encounter [facility] 03-05-2025 History of Present illness [...] nursing note reviewed. Exam conducted with a filling separator present. Vitals: Estimated body mass index is 31.62 kg/m as calculated from the following: Height as of 12/01/20: 5' 5 . Weight as of this encounter: 190 lb. BP: 128/78 Patient's last menstrual period was 10/04/2024 (approximate). ASSESSMENT & PLAN ICD-10-CM 1. Second trimester ([facility]) Z34.92 POCT urinalysis dipstick manually resulted 2. 23 weeks gestation of ([facility]) Z3A.23 3. Diabetes mellitus screening Z13.1 [...] Jaspreet Adams DO documented in this encounter [facility] 01-29-2025 History of Present illness [...] nursing note reviewed. Exam conducted with a filling separator present. Vitals: Estimated body mass index is [...] Willy Avila NP documented in this encounter [facility] 01-24-2025 History of Present illness [...] undercooked meat, and stay away from [facility]. Patient has also been advised to [...] Kalyn Jacob MA documented in this encounter [facility] 12-23-2024 History of Present illness [...] nursing note reviewed. Exam conducted with a filling separator present. Vitals: Estimated body mass index is [...] Jaspreet Adams DO documented in this encounter [facility] Healthcare Evaluation note No assessment inform ation available [facility] Work Phone: Evaluation note [...] encounter [facility] HealthcareInstructionsNot on filedocumented in this encounterProSt. Rita'[facility] Summary Purpose Family History No [...] section and content) DATE CREATED AUTHOR [facility]/2019 [facility] DATE CREATED AUTHOR AUTHOR'S ORGANIZ ATION 06/07/2022 [facility] DATE CREATED AUTHOR AUTHOR'S ORGANIZ ATION 01/09/2025 [facility] DATE CREATED AUTHOR AUTHOR'S ORGANIZ ATION 06/14/2025 [facility] EPIC Care Teams (unrecognized sec [...] BE BASED ON THE PRIMARY CLINICAL RECORDS. [employer] provides no warranty or guarantee of the accuracy or completeness of information in this document.
[2025-06-16 10:38] VITALS: BP 118/65; PULSE 78
== END 2025-06-16 11:04 | disposition home or self-care (01) ==
LOC: US 10:09 → FBC 10:13
PROVIDERS: Visit Provider Obstetrics & Gynecology
DX: O24.419 Gestational diabetes mellitus in pregnancy, unspecified control (principal); Z3A.37 37 weeks gestation of pregnancy
CPT/HCPCS: 76818

== ENCOUNTER 2025-06-19 11:09 | Outpatient (OUT) | payer OTHER, SELFPAY ==
--- OUTSIDE RECORDS SUMMARY | 2025-06-12 09:40 | XMS_ITS | Encounter Summary ---
Author Organization [facility] Address [address] [place] [address] Care Team Providers Care Viner Operator Name Role Phone Unavailable Primary Care Provider Unavailabl e Reason for Visit * ReasonCommentsRoutine Visit Encounter Details DateTypeDepartmentCare Team (Latest Contact Info)Agxkopbbzne43/16/2025 9:40 AM EDTRoutine NOMFerny [facility] [address] [place] [address] Jaspreet Adams DO [address] [place] [address] Third trimester ([facility]); 37 weeks gestation of ([facility]) Social History Tobacco UseTypesPacks/DayYears UsedDateSmoking Tobacco: Never AssessedPHQ-2 AnswerDate RecordedPatient Health Questionnaire-2 Mzmvq147 Estimated Date of SihpcmvlDnizgpjpYnc82/04/2025ased on UltrasoundSex and Gender InformationValueDate RecordedSex Assigned at KuqltIzlayb21/27/2025 5:56 PM EDT Legal GjmKhtqux56/15/2023 7:00 PM EDTGender BhlieidoOplzhx15/27/2025 5:56 PM EDT Sexual OrientationNot on filedocumented as of this encounter Last Filed Vital Signs Vital SignReadingTime TakenCommentsBlood Nstrcwmv901/7206/12/2025 9:50 AM EDT Pulse--Temperature--Respiratory Rate--Oxygen Saturation--Inhaled Oxygen Concentration--Daizqw668 kg (226 lb)06/12/2025 9:50 AM EDTHeight--Body Mass [...] to check FSBS. Blood Glucose Monitoring Suppl ([employer] Glucometer) w/Device kit 1 kit, Does not [...] nursing note reviewed. Exam conducted with a ecommerce project manager present. Vitals: Estimated body mass index is 37.61 kg/m?? as calculated from the following: Height as of 12/01/20: 5' 5 . Weight as of this encounter: 226 lb. BP: 128/72 Patient's last menstrual period was 10/04/2024 (approximate). ASSESSMENT & PLAN ICD-10-CM 1. Third trimester ([facility]) Z34.93 POCT urinalysis dipstick manually resulted 2. 37 weeks gestation of ([facility]) Z3A.37 Patient presents today for a routine [...] Plan of Treatment DateTypeDepartmentCare Team (Latest Contact Info)Eqntcadgaze44/30/2025 9:20 AM EDTRoutine [facility] [address] [place] [id number] Deyanira Martinez PA [address] [place] [address] documented as of this encounter Procedures Procedure NamePriorityDate/TimeAssociated DiagnosisCommentsPOCT URINALYSIS CLKCVDTDFmkvtpg99/16/2025 9:56 AM EDT Third trimester ([facility]) documented in this encounter Results * (ABNORMAL) POCT urinalysis dipstick manually resulted (06/12/2025 9:56 AM EDT) ComponentValueRef RangeTest MethodAnalysis TimePerformed AtPathologist SignatureColor, UAYellowClarity, UAClearGlucose, UANegativeNegative - 2000(110) ++++ mg/dLBilirubin, UANegativeNegative - 4(70) +++ mg/dLKetones, UA NegativeNegative - 160(16) ++++ mg/dLSpec Grav, UA1.0201 - 1.03Blood, UA PositiveNegative - 50 Derick/mcLComment:TracepH, UA6.05 - 9Protein, UAPositive Negative - 2000(20) ++++ mg/dLComment:TraceUrobilinogen, UA0.20.2 - 12 mg/dL Leukocytes, UANegativeNegative - 500+++ Julio/mcLNitrite, UANegativeNegative - PositiveSpecimen (Source)Anatomical Location / LateralityCollection Method / VolumeCollection TimeReceived HeowTiwag74/16/2025 9:56 AM EDT Narrative Authorizing ProviderResult TypeResult StatusCorey Angie DOPOINT OF CARE TEST ENTER/EDIT ORDERABLESFinal Result documented in this encounter Visit Diagnoses Diagnosis Third trimester ([facility]) state, incidental 37 weeks gestation of ([facility]) documented in this encounter
--- OUTSIDE RECORDS SUMMARY | 2025-06-19 09:40 | XMS_ITS | Encounter Summary ---
Author Organization [facility] Address [address] [place] [place] [address] Care Team Providers Care Refuse And Recycling Worker Name Role Phone Unavailable Primary Care Provider Unavailabl e Reason for Visit * ReasonCommentsRoutine Visit Encounter Details DateTypeDepartmentCare Team (Latest Contact Info)Wtdyekgzdzo75/23/2025 9:40 AM EDTRoutine [facility] [address] [place] [address] Deyanira Martinez PA [address] [place] [address] Third trimester ([facility]); 38 weeks gestation of ([facility]) Social History Tobacco UseTypesPacks/DayYears UsedDateSmoking Tobacco: Never AssessedPHQ-2 AnswerDate RecordedPatient Health Questionnaire-2 Yywpr324 Estimated Date of JafjarrxQjcasjwsXwa72/04/2025ased on UltrasoundSex and Gender InformationValueDate RecordedSex Assigned at YsdkgHdwnqw21/27/2025 5:56 PM EDT Legal OrpGhznys96/15/2023 7:00 PM EDTGender OmqjlstiIjyjnw34/27/2025 5:56 PM EDT Sexual OrientationNot on filedocumented as of this encounter Last Filed Vital Signs Vital SignReadingTime TakenCommentsBlood Vzcewtse027/7006/19/2025 10:26 AM EDT Pulse--Temperature--Respiratory Rate--Oxygen Saturation--Inhaled Oxygen Concentration--Doqoya835 kg (228 lb)06/19/2025 10:26 AM EDTHeight--Body Mass Index37.9404 12:00 PM EDTdocumented in this encounter Plan of Treatment DateTypeDepartmentCare Team (Latest Contact Info)Wfcecljyrqz49/30/2025 9:20 AM EDTRoutine [facility] [address] [place] [address] Deyanira Martinez PA [address] [place] [address] documented as of this encounter Procedures Procedure NamePriorityDate/TimeAssociated DiagnosisCommentsPOCT URINALYSIS WRHEWFIVIaqffjm31/23/2025 10:26 AM EDT 38 weeks gestation of ([facility]) documented in this encounter Results * (ABNORMAL) [...] / LateralityCollection Method / VolumeCollection Time Received UzrkSrlxg87/23/2025 10:26 AM EDT Narrative Authorizing ProviderResult TypeResult StatusDeyanira Martinez PAPOINT OF CARE TEST ENTER/EDIT ORDERABLESFinal Result documented in this encounter Visit Diagnoses Diagnosis Third trimester ([facility]) state, incidental 38 weeks gestation of ([facility]) documented in this encounter
--- OUTSIDE RECORDS SUMMARY | 2025-06-19 11:13 | XMS_ITS | Encounter Summary ---
Author Organization [facility] Address [address] [facility] [place] [address] Care Team Providers Care Control Inspector Name Role Phone Unavailable Primary Care Provider Unavailabl e Encounter Details DateTypeDepartmentCare Team (Latest Contact Info)Olngepmojjc88/16/2025Bamboo flowsheet NOM[facility]erny [facility] [address] [place] [address] Jaspreet Adams DO [address] [facility] [address] [facility] [address] Eryn [place], [facility]11 Social History Tobacco UseTypesPacks/DayYears UsedDateSmoking Tobacco: Never AssessedPHQ-2 AnswerDate RecordedPatient Health Questionnaire-2 [id number] Estimated Date of ClsvtscjTzuymksdSsq05/04/2025Based on UltrasoundSex and Gender InformationValueDate RecordedSex Assigned at JbjttOlotgl77/27/2025 5:56 PM EDT Legal RlbRuannn76/15/2023 7:00 PM EDTGender VvibwodkOuioot39/27/2025 5:56 PM EDT Sexual OrientationNot on filedocumented as of this encounter Plan of Treatment DateTypeDepartmentCare Team (Latest Contact Info)Sjyxdyretzs47/30/2025 9:20 AM EDTRoutine NOMFerny VARGAS [address] [place] [address] Deyanira Martinez PA [address] [place] [address] documented as of this encounter Visit Diagnoses Not on filedocumented in this encounter
--- OUTSIDE RECORDS SUMMARY | 2025-06-19 11:13 | XMS_ITS | Clinical Summary ---
Author Organization [facility] tem Address [id number] [place] [address] Care Team Providers Care Film Technician Name Role Phone Unavailable Primary Care Provider Unavailabl e Encounters DateTypeDepartmentCare AlmqUjysaviryij76/01/2025bstract Maternal- Medicine at [facility] [address] [place] [address] External, Scanning Provider 03/28/2025Orders Only Maternal- Medicine at [facility] [address] [place] [id number] Domenica Ahmadi, PUBLICITY EXPERT from Last 3 Months Social History Tobacco UseTypesPacks/DayYears UsedDateSmoking Tobacco: Never Assessed Estimated Date of NrqhueqnKjamzzmxPgk54/04/2025ased on UltrasoundSex and Gender InformationValueDate RecordedSex Assigned at BirthNot on fileLegal SexFemale 03/26/2025 9:06 AM EDTGender IdentityNot on fileSexual OrientationNot on file Plan of Treatment Health MaintenanceDue DateLast DoneCommentsDepression Hbkgkwptn77/11/2010Tobacco Ocgkxnyoo62/11/2010dult BMI Vblesjqmj90/11/2016DTaP,Tdap and Td Vaccines (1 - Tdap)2016Pap Smear2018Influenza Epgizre6504/28/2025 Medical Devices Not on file
--- OUTSIDE RECORDS SUMMARY | 2025-06-19 11:13 | XMS_ITS | Encounter Summary ---
Author Organization [facility] Address [address] [place] [address] Care Team Providers Care Grinding And Spraying Supervisor Name Role Phone Unavailable Primary Care Provider Unavailabl e Encounter Details DateTypeDepartmentCare Team (Latest Contact Info)Kccgzdedpre92/09/2025Telephone [facility] [address] [place] [phone] Britt Christensen MA [address] [facility] [address] [place] [address] Social History Tobacco UseTypesPacks/DayYears UsedDateSmoking Tobacco: Never AssessedPHQ-2 AnswerDate RecordedPatient Health Questionnaire-2 Wfstc486 Estimated Date of QptlcuwqZojyyvsuSve33/04/2025Based on UltrasoundSex and Gender InformationValueDate RecordedSex Assigned at LscjiAsviqh14/27/2025 5:56 PM EDT Legal ZduUjwxwi24/15/2023 7:00 PM EDTGender SgkenejrVzhnah12/27/2025 5:56 PM EDT Sexual OrientationNot on filedocumented as of this encounter Miscellaneous Notes * Telephone Encounter - Britt Christensen MA - 06/05/2025 1:22 PM EDT Pt called she is running a high fever since last night. Pt states she feels horrible. Pt is 36 weeks and does not know if its the flu or Covid. Pt was advised to go and get checked out at the hospital. The hospital can swab and evaluate you. PVU. documented in this encounter Plan of Treatment DateTypeDepartmentCare Team (Latest Contact Info)Qblyjvxenps65/30/2025 9:20 AM EDTRoutine [facility]ie [facility]ARGAS [address] [place] [address] Deyanira Martinez PA [address] [facility] [address] [place], [place] [id number] documented as of this encounter Visit Diagnoses Not on filedocumented in this encounter
--- OUTSIDE RECORDS SUMMARY | 2025-06-19 11:14 | XMS_ITS | Encounter Summary ---
Author Organization [facility] Address [address] [facility] [place] [address] Care Team Providers Care Scallop Dredger Name Role Phone Unavailable Primary Care Provider Unavailabl e Encounter Details DateTypeDepartmentCare Team (Latest Contact Info)Dmtarfzhmek76/23/2025amboo flowsheet MATTIE VARGAS [address] [place] [address] Deyanira Martinez, PA [address] [facility] [address] [place], [facility]11 Social History Tobacco UseTypesPacks/DayYears UsedDateSmoking Tobacco: Never AssessedPHQ-2 AnswerDate RecordedPatient Health Questionnaire-2 [id number] Estimated Date of YiwldlrfYozpkvljMen16/04/2025Based on UltrasoundSex and Gender InformationValueDate RecordedSex Assigned at OflnbDevtew88/27/2025 5:56 PM EDT Legal BuyYilncb85/15/2023 7:00 PM EDTGender VmzfyuwqGqkmws17/27/2025 5:56 PM EDT Sexual OrientationNot on filedocumented as of this encounter Plan of Treatment DateTypeDepartmentCare Team (Latest Contact Info)Aofjqovhzlh58/30/2025 9:20 AM EDTRoutine NOMFerny VARGAS [address] [place] [address] Deyanira Martinez, PA [address] [facility] [address] [place], [place] [id number] documented as of this encounter Visit Diagnoses Not on filedocumented in this encounter
--- OUTSIDE RECORDS SUMMARY | 2025-06-19 11:14 | XMS_ITS | Clinical Summary ---
Author Organization [facility] Address [address] [place] [address] Care Team Providers Care Retail Pharmacist Name Role Phone Unavailable Primary Care Provider Unavailabl e Allergies Active AllergyReactionsCriticalityNoted DateCommentsPenicillin GUnknown 06/02/20255274Hatsmoaxcvs64/28/2025 Other Reaction(s): Unknown Medications MedicationSigDispense QuantityRefillsLast FilledStart DateEnd DateStatus Multiple Vitamin (multivitamin) tablet Take 1 tablet by mouth DailyActive Klor-Con 20 MEQ packet DISSOLVE 1 PACKET IN 4 OZ OF WATER OR OTHER BEVERAGE AND DRINK DAILY FOR 7 DAYS 5Active doxylamine (Unisom) 25 MG tablet Indications:Other insomniaTake 1 tablet (25 mg) by mouth as needed at bedtime for sleep 30 tablet 5Active Additional Information Patient not taking.Reported on 05/15/2025 Alcohol Swabs (Alcohol Prep Pad) 70 % pads Indications:Gestational diabetes mellitus (GDM), antepartum, gestational diabetes method of control unspecified(HHS-HCC),Elevated glucose tolerance test Apply 1 Pad topically Daily Use four times daily to check FSBS. 150 each 5Active Blood Glucose Monitoring Suppl (D-Care Glucometer) w/Device kit Indications:Gestational diabetes mellitus (GDM), antepartum, gestational diabetes method of control unspecified(HHS-HCC),Elevated glucose tolerance test1 kit Daily Use four times daily to check FSBS. In the morning prior to breakfast & 1 hour after each meal for a total of 4times daily. 1 kit 506Active Encounters DateTypeDepartmentCare DnvmIiqcizmiyok65/23/2025 9:40 AM EDTRoutine [facility] [place] [facility] [address] [place] [address] Deyanira Martinez PA Third trimester ([facility]); 38 weeks gestation of ([facility])06/19/2025amboo flowsheet [facility] [place] [facility] [address] [place] [address] Deyanira Martinez PA 06/12/2025 9:40 AM EDTRoutine [facility] [place] [facility] [address] [place] [address] Tyrell Adams, Third trimester ([facility]); 37 weeks gestation of ([facility])06/12/2025amb flowsheet [facility] [place] [facility] [address] [place] [address] Tyrell Adams, 06/05/2025Telephone [facility] [place] [facility] [address] [place] [address] Britt Christensen MA 06/02/2025 11:20 AM EDTRoutine [facility] [place] [facility] [address] [place] [address] Nabila Avila NP 35 weeks gestation of ([facility]); Third trimester ([facility])06/02/2025linisync Result Encounter [facility] External Department Unsolicited Tyrell Adams, DO 05/29/2025bstract [facility] [address] [place] [address] Deyanira Phillips LPN 05/26/2025Patient Outreach [facility] [address] [place] [address] Deyanira Phillips LPN 05/26/2025linisync Result Encounter [facility]OM[facility] External Department Unsolicited Tyrell Adams, DO 05/23/2025bstract [facility] [place] [facility] [address] [place] [address] Tyrell Adams, DO 5Clinisync Result Encounter NOMS External Department Unsolicited Tyrell Adams, DO 5Clinisync Result Encounter NOMS External Department Unsolicited Tyrell Adams, DO 05/15/2025 9:50 AM EDTRoutine [facility] [place] [facility] [place] [address] Deyanira Martinez PA 33 weeks gestation of ([facility]); Third trimester ([facility]); Gestational diabetes mellitus (GDM), antepartum, gestational diabetes method of control unspecified([facility])05/15/2025amboo flowsheet [facility] [place] [facility] [place] [address] Deyanira Martinez PA 04/30/2025 3:00 PM EDTRoutine [facility] [place] [facility] [place] [address] Tyrell Adams, DO 31 weeks gestation of ([facility]); Third trimester ([facility]); Gestational diabetes mellitus (GDM), antepartum, gestational diabetes method of control unspecified([facility])04/30/2025 2:30 PM EDTAncillary Procedure [facility] [place] [facility] [place] [address] Size of fetus inconsistent with dates in second trimester ([facility])04/17/2025 9:50 AM EDTRoutine [facility] [place] [facility] [place] [address] Deyanira Martinez PA Size of fetus inconsistent with dates in second trimester ([facility]) (Primary Dx); Third trimester ([facility]); 29 weeks gestation of ([facility])5Bamboo flowsheet [facility] [place] [address] Deyanira Martinez PA 04/03/2025 10:40 [place] [address] Tyrell Adams, DO Second trimester ([facility]); 27 weeks gestation of ([facility])04/03/2025amboo flowsheet [facility] [place] [facility] [place] [address] Tyrell Adams, DO 03/24/2025bstract [facility] [place] [address] Tyrell Adams, DO 03/24/2025Telephone [facility] [place] [address] Tyrell Adams, DO 03/21/2025linisync Result Encounter NOMS External Department Unsolicited Tyrell Adams, DO 03/19/2025 9:30 AM EDTAncillary Procedure [facility] [place] [facility] [address] [place] [phone] Encounter for follow-up ultrasound of anatomy ([facility])from Last 3 Months Social History Tobacco UseTypesPacks/DayYears UsedDateSmoking Tobacco: Never AssessedPHQ-2 AnswerDate RecordedPatient Health Questionnaire-2 Oeucw487 Estimated Date of HososzhdBiwopwrxLzy42/04/2025ased on UltrasoundSex and Gender InformationValueDate RecordedSex Assigned at UztviJziqbj06/27/2025 5:56 PM EDT Legal ZdpDeidts61/15/2023 7:00 PM EDTGender ZbdrvydhJkjvzg60/27/2025 5:56 PM EDT Sexual OrientationNot on file Last Filed Vital Signs Vital SignReadingTime TakenCommentsBlood Mhwbrskv488/7010 10:26 AM EDT Pulse--Temperature--Respiratory Rate--Oxygen Saturation--Inhaled Oxygen Concentration--Odquxz413 kg (228 lb)06/19/2025 10:26 AM OVYCirgfq117.1 cm (5' 5 )12/01/2020 12:00 PM EDTBody Mass Index37.9412/01/2020 12:00 PM EDT Plan of Treatment DateTypeDepartmentCare Team (Latest Contact Info)Fgbgxwtfjyp68/30/2025 9:20 AM EDTRoutine [facility] [place] [facility] [address] [place] [address] Deyanira Martinez PA [address] [place] [address] Procedures Procedure NamePriorityDate/TimeAssociated DiagnosisCommentsPOCT URINALYSIS PIOOLEOHUcnavcz90/23/2025 10:26 AM EDT 38 weeks gestation of ([facility]) POCT URINALYSIS FEXJDPWQEhenrsb99/16/2025 9:56 AM EDT Third trimester ([facility]) POCT URINALYSIS AMEGCIIBSmhbptk25/06/2025 11:53 AM EDT 35 weeks gestation of ([facility]) US OB BPP W NON-LUYPIU3206/02/2025 10:52 AM EDT US OB BPP W NON-CETYKZ0505/26/2025 11:39 AM EDT US AMNIOTIC FLUID HUGXCJ3705/20/2025 11:33 AM EDT MHPT FPDRHAGLQPVfgifwj36/22/2025 11:00 AM EDT [facility] UWFRRmukpxj38/22/2025 11:00 AM EDT SRMCOH PROTHROMBIN TIME INR W/O CMQSHhsohww34/22/2025 11:00 AM EDT [facility] UDZOrynlzc44/22/2025 11:00 AM EDT [facility] PZUXuvixop65/22/2025 11:00 AM EDT ALL URIC CULAHhhytgc68/22/2025 11:00 AM EDT TBH HUKHRSJZGSWsmzlya02/22/2025 11:00 AM EDT ALL LOUFgmtjlk35/22/2025 11:00 AM EDT ALL CBC WITH AUTO MBEBFkbwdmv35/22/2025 11:00 AM EDT US OB BPP W NON-BCEURL0305/19/2025 10:54 AM EDT TB[facility] URINE T PROTEIN CREAT UDTNKJdnhdio17/22/2025 10:50 AM EDT POCT URINALYSIS GHIYFBCUKxgnpaz92/18/2025 10:08 AM EDT 33 weeks gestation of (HHS-HCC) Third trimester (HHS-HCC) POCT URINALYSIS HMLMPQVUAxbzxmh28/03/2025 3:11 PM EDT 31 weeks gestation of ([facility]) Third trimester (HHS-HCC) US OB FOLLOW UP TRANSABDOMINAL HVVURFWFTqhhvtl46/03/2025 2:49 PM EDT Size of fetus inconsistent with dates in second trimester (HHS-HCC) POCT URINALYSIS POCPMSAASrrqfyp90/21/2025 10:45 AM EDT Third trimester (HHS-HCC) 29 weeks gestation of (HHS-HCC) POCT URINALYSIS FZSEVCZARoozgzn73/07/2025 10:59 AM EDT Second trimester (HHS-HCC) 27 weeks gestation of (HHS-HCC) CULTURE, URINE, UGKKYCPZyglnis88/04/2025 9:28 AM EDT Missed menses GLUCOSE TOLERANCE 3 YNPVTfdqybb63/25/2025 8:56 AM EDT US OB LIMITED 1+ SGHAMRCJcdnlah49/23/2025 10:09 AM EDT Encounter for follow-up ultrasound of anatomy ([facility]) from Last 3 Months Results * (ABNORMAL) POCT urinalysis dipstick manually resulted (06/19/2025 10:26 AM EDT) Only the most recent of7 resultswithin the time period is included. ComponentValueRef RangeTest MethodAnalysis TimePerformed AtPathologist Signature Color, UAYellowClarity, UAClearGlucose, UANegativeNegative - 2000(110) ++++ mg/dLBilirubin, UANegativeNegative - 4(70) +++ mg/dLKetones, UANegativeNegative - 160(16) ++++ mg/dLSpec Grav, UA1.0201 - 1.03Blood, UAPositiveNegative - 50 Derick/mcLpH, UA6.05 - 9Protein, UA1+Negative - 2000(20) ++++ mg/dLUrobilinogen, UA >=8.00.2 - 12 mg/dLLeukocytes, UATraceNegative - 500+++ Julio/mcLNitrite, UA NegativeNegative - PositiveSpecimen (Source)Anatomical Location / Laterality Collection Method / VolumeCollection TimeReceived JwubAwoor27/23/2025 10:26 AM EDT Narrative Authorizing ProviderResult TypeResult StatusTwin County Regional Healthcare TEST ENTER/EDIT ORDERABLESFinal Result * US OB BPP W NON-STRESS (06/02/2025 10:52 AM EDT) Only the most recent of3 resultswithin the time period is included. Anatomical RegionLateralityModalityOtherSpecimen (Source)Anatomical Location / LateralityCollection Method / VolumeCollection TimeReceived Time06/02/2025 10:52 AM EDT Narrative 06/02/2025 10:54 AM EDT [facility] ?[address] ? [place] [address] ? Ultrasound Report ? Signed ? Patient: ALLEY,CHENTE N ?MR#: [id number] ?? : 1995 ?Acct:[id number] ?? Age/Sex: 29 / F ?ADM Date: 10/06/25 ?? Loc: [facility] ??250-1 ? Attending Dr: Tyrell Adams D.O. ? Ordering Physician: Tyrell Adams D.O. ?? Date of Service: 06/02/25 ?? Procedure(s): US OB BPP w non-stress ?? Accession Number(s): [id number] ? cc: Tyrell Adams D.O.; Physician,Non-Staff M.D. ? [facility] ? [address] ? [place] [address] ? Patient Name: ?? CHENTE Carcamo JOSÉNish ? MRN: [facility]:[id number] ? date: 1995 ?Sex: F ?? Assigned Patient Location: [facility] ?? Current Patient Location: [facility] ?? Accession/Order Number: [id number] ?? Exam Date: 06/02/2025 ??10:22 ?Report Date: 06/02/2025 ??10:52 ? At the request of: ?? TYRELL ??ANGIE ??DO ? Procedure: ??US OB BPP w non-stress ? Biophysical profile. ? Reason for exam: Gestational diabetes ? COMPARISON: 05/26/2025 ? TECHNIQUE: Transabdominal imaging of the gravid uterus was obtained. ? FINDINGS: The deputy sheriff custody reports a BPP of 8 out of 8. ??DOYLE is normal at 8.9 ?? cm. ?? heart rate 124 bpm. ? US/US OB BPP w non-stress ?? IMPRESSION: BPP 8 out of 8. ? Impression dictated by: Ramana Raza Jr. D.OPeggy ??06/02/2025 10:52 AM ? Dictation Location: RADIO-PC-22 ? Electronically authenticated by: [id number] ??Y ?? Date: 06/02/2025 ??10:52 ? Dictated By: ?Ramana Raza M.D. ? Signed By: ?06/02/25 1054 ? DD/ 1052 ? TD/TT: ? Golf Course Mechanic: Procedure Note Radiology, Radiologist, MD - 06/02/2025 [place] [address] Ultrasound Report Signed Patient: CHENTE GONZALEZ NMR#: [id number] : 1995Acct:[id number] Age/Sex: 29 / FADM Date: 06/02/25 Loc: [facility] 250-[address]: Tyrell Adams D.O. Ordering Physician: Tyrell Adams D.O. Date of Service: 06/02/25 Procedure(s): US OB BPP w non-stress Accession Number(s): [id number] cc: Tyrell Adams D.O.; Physician,Non-Staff [place] [address] Patient Name: CHENTE GONZALEZ MRN: [facility]:[id number] date: 1995 Sex: F Assigned Patient Location: [facility] Current Patient Location: [facility] Accession/Order Number: [id number] Exam Date: 06/02/2025 10:22 Report Date: 06/02/2025 10:52 At the request of: TYRELL ADAMS DO Procedure: US OB BPP w non-stress Biophysical profile. Reason for exam: Gestational diabetes COMPARISON: 05/26/2025 TECHNIQUE: Transabdominal imaging of the gravid uterus was obtained. FINDINGS: The deputy sheriff custody reports a BPP of 8 out of 8. DOYLE is normal at8.9 cm. heart rate 124 bpm. US/US OB BPP w non-stress IMPRESSION: BPP 8 out of 8. Impression dictated by: Ramana Raza Jr., D.O. 06/02/2025 10:52 AM Dictation Location: [place] [address] Electronically authenticated by: [id number] Y Date: 0:52 Dictated By: Ramana Raza M.D. Signed By:06/02/25 1054 DD/ 1052 TD/TT: Golf Course Mechanic: Authorizing ProviderResult TypeResult StatusCorey Angie DOCLINISYNC IMAGINGFinal Result * US AMNIOTIC FLUID VOLUME (05/20/2025 11:33 AM EDT)Anatomical RegionLaterality ModalityRadiographic ImagingSpecimen (Source)Anatomical Location / Laterality Collection Method / VolumeCollection TimeReceived Time05/20/2025 11:33 AM EDT Narrative 05/20/2025 11:36 AM EDT [facility] ?[address] ? [place] [address] ? Ultrasound Report ? Signed ? Patient: JOSÉNish,CHENTE N ?MR#: [id number] ?? : 1995 ?Acct:[id number] ?? Age/Sex: 29 / F ?ADM Date: 05/20/25 ?? Loc: [facility] ??250-1 ? Attending Dr: Tyrell Adams D.O. ? Ordering Physician: Tyrell Adams D.O. ?? Date of Service: 05/20/25 ?? Procedure(s): US OB amniotic fluid vol ?? Accession Number(s): [id number] ? cc: Tyrell Adams D.O.; Physician,Non-Staff M.D. ? [facility] ? [address] [place] [address] ? [place] [address] ? Patient Name: ?? CHENTE GONZALEZ ? MRN: [facility]:[id number] ? date: 1995 ?Sex: F ?? Assigned Patient Location: [facility] ?? Current Patient Location: US ?? Accession/Order Number: [id number] ?? Exam Date: 05/20/2025 ??11:10 ?Report Date: 05/20/2025 ??11:33 ? At the request of: ?? TYRELL ??ANGIE ??DO ? Procedure: ??US OB amniotic fluid vol ? ULTRASOUND OB AMNIOTIC FLUID VOLUME ? CLINICAL DATA: Oligohydramnios ? COMPARISON: [facility] 05/17/2025 ? There is a single live intrauterine gestation in cephalic presentation. ??The ?? reported gestational age is 34 weeks 0 days. ??There is cardiac and ?? somatic activity with heart rate of 142 bpm. ??The amniotic fluid volume on ?? today's study measures 11.2 cm. ??This is in low-normal range. ??The largest ?? pocket is 4.2 cm. ? US/US OB amniotic fluid vol ?? IMPRESSION: ? LOW NORMAL AMNIOTIC FLUID VOLUME. ? Impression dictated by: Rahel Mae M.D. ??05/20/2025 11:33 AM ? Dictation Location: RADIO-PC-30 ? Electronically authenticated by: [id number] ??Y ?? Date: 05/20/2025 ??11:33 ? Dictated By: ?Rahel Mae M.D. ? Signed By: ?05/20/25 1136 ? DD/ 1133 ? TD/TT: ? Golf Course Mechanic: Procedure Note Radiology, Radiologist, MD - 05/20/2025 [place] [address] Ultrasound Report Signed Patient: CHENTE GONZALEZ NMR#: [id number] : 1995Acct:[id number] Age/Sex: 29 / FADM Date: 05/20/25 Loc: [facility] 250-[address]: Tyrell Adams D.O. Ordering Physician: Tyrell Adams D.O. Date of Service: 05/20/25 Procedure(s): US OB amniotic fluid vol Accession Number(s): [id number] cc: Tyrell Adams D.O.; Physician,Non-Staff Ale[place] [id number] Patient Name: CHENTE GONZALEZ MRN: [facility]:[id number] date: 1995 Sex: F Assigned Patient Location: [facility] Current Patient Location: US Accession/Order Number: [id number] Exam Date: 05/20/2025 11:10 Report Date: 05/20/2025 [...] 05/20/2025 11:33 AM Dictation Location: [place] [address] Electronically authenticated by: [id number] Y Date: 1:33 Dictated By: Rahel Mae M.D. Signed By:05/20/25 1136 DD/ 1133 TD/TT: Golf Course Mechanic: Authorizing ProviderResult TypeResult StatusCorey Angie HARRISMG XR PROCEDURESFinal Result * TBH CREATININE (05/19/2025 11:00 AM EDT)ComponentValueRef RangeTest Method Analysis TimePerformed AtPathologist SignatureCREATININE0.650.55 - 1.02 mg/dL TBHTBH EGFR-AF RUSSIAN>60>=60 mL/min/1.73m 2TBHTBH EGFR-NON AF RUSSIAN>60 >=60 mL/min/1.73m 2TBHSpecimen (Source)Anatomical Location / Laterality Collection Method / VolumeCollection TimeReceived Time05/19/2025 11:00 AM EDT 05/19/2025 11:06 AM EDT Narrative [facility] - 05/19/2025 11:31 AM EDT Authorizing ProviderResult TypeResult StatusCorey Angie MASTERSLINISYNCFinal Result Performing OrganizationAddressCity/State/ZIP CodePhone Number [facility] * SRMCOH PROTHROMBIN TIME INR W/O COUM (05/19/2025 11:00 AM EDT)ComponentValue Ref RangeTest MethodAnalysis TimePerformed AtPathologist SignaturePROTHROMBIN TIME9.89.0 - 11.6 secTBHTBH INR<0.93TBHComment: DESIRED INR: 2.0-3.0 CONDITIONS NOT LISTED BELOW 2.5-3.5 FOR PROSTHETIC HEART VALVE REPLACEMENT 2.5-3.5 RECURRENT THROMBOSIS Specimen (Source)Anatomical Location / LateralityCollection Method / Volume Collection TimeReceived Time05/19/2025 11:00 AM EDT05/19/2025 11:06 AM EDT Narrative [facility] - 05/19/2025 11:43 AM EDT Authorizing ProviderResult TypeResult StatusCorey Angie DOCLINISYNCFinal Result Performing OrganizationAddressCity/State/ZIP CodePhone Number [facility] * (ABNORMAL) MHPT FIBRINOGEN (05/19/2025 11:00 AM EDT)ComponentValueRef Range Test MethodAnalysis TimePerformed AtPathologist JgzeydrgvJVNMHQWYFK399(H)200 - 400 mg/dLTBHSpecimen (Source)Anatomical Location / LateralityCollection Method / VolumeCollection TimeReceived Time05/19/2025 11:00 AM EDT05/19/2025 11:06 AM EDT Narrative [facility] - 05/19/2025 11:43 AM EDT Authorizing ProviderResult TypeResult StatusCorey Angie DOCLINISYNCFinal Result Performing OrganizationAddressCity/State/ZIP CodePhone Number [facility] * [facility] AST (05/19/2025 11:00 AM EDT)ComponentValueRef RangeTest MethodAnalysis TimePerformed AtPathologist SignatureASPARTATE AMINO EDSYISKVUZE5860 - 37 U/L TBHSpecimen (Source)Anatomical Location / LateralityCollection Method / Volume Collection TimeReceived Time05/19/2025 11:00 AM EDT05/19/2025 11:06 AM EDT Narrative [facility] - 05/19/2025 11:31 AM EDT Authorizing ProviderResult TypeResult StatusCorey Angie DOCLINISYNCFinal Result Performing OrganizationAddressCity/State/ZIP CodePhone Number [facility] * [facility] APTT (05/19/2025 11:00 AM EDT)ComponentValueRef RangeTest MethodAnalysis TimePerformed AtPathologist SignaturePARTIAL THROMBOPLASTIN TIME24.822.3 - 36.2 secTBHSpecimen (Source)Anatomical Location / LateralityCollection Method / VolumeCollection TimeReceived Time05/19/2025 11:00 AM EDT05/19/2025 11:06 AM EDT Narrative [facility] - 05/19/2025 11:43 AM EDT Authorizing ProviderResult TypeResult StatusCorey Angie DOCLINISYNCFinal Result Performing OrganizationAddressCity/State/ZIP CodePhone Number [facility] * [facility] ALT (05/19/2025 11:00 AM EDT)ComponentValueRef RangeTest MethodAnalysis TimePerformed AtPathologist SignatureALANINE ZZRUCJLILQRJDCMA5648 - 59 U/LTBH Specimen (Source)Anatomical Location / LateralityCollection Method / Volume Collection TimeReceived Time05/19/2025 11:00 AM EDT05/19/2025 11:06 AM EDT Narrative [facility] - 05/19/2025 11:31 AM EDT Authorizing ProviderResult TypeResult StatusCorey Angie DOCLINISYNCFinal Result Performing OrganizationAddressCity/State/ZIP CodePhone Number [facility] * ALL URIC ACID (05/19/2025 11:00 AM EDT)ComponentValueRef RangeTest Method Analysis TimePerformed AtPathologist SignatureURIC ACID4.42.6 - 6.0 mg/dLTBH Specimen (Source)Anatomical Location / LateralityCollection Method / Volume Collection TimeReceived Time05/19/2025 11:00 AM EDT05/19/2025 11:06 AM EDT Narrative [facility] - 05/19/2025 11:31 AM EDT Authorizing ProviderResult TypeResult StatusCorey Angie DOCLINISYNCFinal Result Performing OrganizationAddressCity/State/ZIP CodePhone Number [facility] * (ABNORMAL) ALL CBC WITH AUTO DIFF (05/19/2025 11:00 AM EDT)ComponentValueRef RangeTest MethodAnalysis TimePerformed AtPathologist SignatureTBH WBC10.54.0 - 11.0 10 3/uLTBHTBH RBC4.09(L)4.20 - 5.40 10 6/uLTBHTBH HGB12.712.0 - 16.0 g/dL TBHTBH HCT35.6(L)36.0 - 48.0 %TBHTBH MCV87.081.0 - 99.0 fLTBHTBH MCH31.126.7 - 34.0 pgTBHTBH MCHC35.7(H)29.9 - 35.2 g/dLTBHTBH RDW11.911.0 - 15.0 %TBHTBH PLT 530687 - 450 10 3/uLTBHTBH MPV9.79.5 - 13.5 fLTBHNEUTROPHILS PERCENT AUTO76.3 (H)43.0 - 75.0 %TBHLYMPHOCYTES PERCENT AUTO14.9(L)20.5 - 60.0 %TBHMONOCYTES PERCENT AUTO6.81.7 - 12.0 %TBHTBH EO %0.7(L)0.9 - 7.0 %TBHBASOPHILS PERCENT AUTO0.40.2 - 2.0 %TBHIMMATURE GRANULOCYTES PCT AUTO0.9(H)0.0 - 0.5 %TBH NEUTROPHILS ABSOLUTE AUTO8.0(H)1.4 - 6.5 10 3/uLTBHLYMPHOCYTES ABSOLUTE AUTO 1.61.2 - 3.8 10 3/uLTBHMONOCYTES ABSOLUTE AUTO0.70.3 - 0.8 10 3/uLTBHTBH EO # 0.10.0 - 0.7 10 3/uLTBHBASOPHILS ABSOLUTE AUTO0.00.0 - 0.1 10 3/uLTBHIMMATURE GRANULOCYTES ABS AUTO0.09(H)0.00 - 0.03 10 3/uLTBHSpecimen (Source)Anatomical Location / LateralityCollection Method / VolumeCollection TimeReceived Time 05/19/2025 11:00 AM EDT05/19/2025 11:06 AM EDT Narrative [facility] - 05/19/2025 11:15 AM EDT Authorizing ProviderResult TypeResult StatusCorey Angie DOCLINISYNCFinal Result Performing OrganizationAddressCity/State/ZIP CodePhone Number [facility] * ALL BUN (05/19/2025 11:00 AM EDT)ComponentValueRef RangeTest MethodAnalysis TimePerformed AtPathologist SignatureBLOOD UREA NITROGEN7.07.0 - 18.0 mg/dLTBH Specimen (Source)Anatomical Location / LateralityCollection Method / Volume Collection TimeReceived Time05/19/2025 11:00 AM EDT05/19/2025 11:06 AM EDT [facility] - 05/19/2025 11:31 AM EDT Authorizing ProviderResult TypeResult StatusCorey Angie DOCLINISYNCFinal Result Performing OrganizationAddressty/State/ZIP CodePhone Number [facility] * (ABNORMAL) TB[facility] URINE T PROTEIN CREAT RATIO (05/19/2025 10:50 AM EDT)Component ValueRef RangeTest MethodAnalysis TimePerformed AtPathologist SignatureTOTAL PROTEIN URINE NIWSUK20.9(H)<=11.9 mg/dLTBHCREATININE URINE VMIRUB30.1120.00 - 300.00 mg/dLTBHPROTEIN CREATININE RATIO URINE0.72TBHSpecimen (Source) Anatomical Location / LateralityCollection Method / VolumeCollection Time Received Time05/19/2025 10:50 AM EDT05/19/2025 11:06 AM EDT Narrative [facility] - 05/19/2025 11:55 AM EDT Authorizing ProviderResult TypeResult StatusCorey Angie DOCLINISYNCFinal Result Performing OrganizationAddressCity/State/ZIP CodePhone Number [facility] * OB follow up transabdominal approach (04/30/2025 2:49 PM EDT)Anatomical RegionLateralityModalityBodyUltrasoundSpecimen (Source)Anatomical Location / LateralityCollection Method / VolumeCollection TimeReceived Time04/30/2025 3:45 PM EDT Impressions 05/01/2025 7:33 AM EDT Single, live intrauterine , current sonographic age of 31 weeks and 5 days, with an estimated date of delivery of June 27, 2025 * ??Estimated Weight (g) by Percentile is based upon an accurate estimated age based onlast menstrual period. ?? TRANSCRIBED BY: ? ELECTRONICALLY SIGNED BY: Ramana Lechuga MD Narrative 05/01/2025 7:33 AM EDT A single, live intrauterine is present with normal cardiac rate of 161 beats per minute. Normal activity and amniotic fluid volume. Amniotic fluid index is 16.0 cm. Morphology is grossly normal. The current sonographic age is 31 weeks and 5 days, based on the following measurements: BPD ? 7.9 cm (31 weeks, 4 ??days) Head Circumference ?29.2cm (32 weeks, 2 ??days) Abdominal Circumference ?27.2cm (31 ??weeks, 2 ?? days) Femur Length ?6.1cm (31 weeks, 5 days) Presentation ? Cephalic ? Weight (g) by Percentile ??50.6 % * These measurements result in an estimated date of delivery of ??June 27, 2025. ?The current estimated weight is 1783 ?? grams (3 ??pound, 15 ??ounces). ?? Comparison made with prior examination of February [...] BY: ELECTRONICALLY SIGNED BY: Ramana Lechuga MD Authorizing ProviderResult TypeResult StatusDeyanira CastAdventHealth [facility] OB US PROCEDURES Final Result * Urine culture (03/31/2025 9:28 AM EDT)Specimen (Source)Anatomical Location / LateralityCollection Method / VolumeCollection TimeReceived TimeUrineUrine specimen obtained by clean catch procedure / Unknown Narrative Authorizing ProviderResult TypeResult StatusCorenish MONTERROSO MICROBIOLOGY - GENERAL ORDERABLESFinal ResultPerforming OrganizationAddressCity/State/ZIP Code Phone Number EXTERNAL LAB * (ABNORMAL) GLUCOSE TOLERANCE 3 HOUR (03/21/2025 8:56 AM EDT)ComponentValueRef RangeTest MethodAnalysis TimePerformed AtPathologist SignatureGLUCOSE TOLERANCE 3 HOUR(H)mg/dLTBHComment: GLU FAST 86 (<95) Col: 03/21/25 0856 GLU 1HR 181H (<180) Col: 03/21/25 1002 GLU 2HR 162H (<155) Col: 03/21/25 1102 GLU 3HR 75 (<140) Col: 03/21/25 1202 Specimen (Source)Anatomical Location / LateralityCollection Method / Volume Collection TimeReceived Time03/21/2025 8:56 AM EDT03/21/2025 9:09 AM EDT Narrative [facility] - 03/21/2025 12:54 PM EDT Authorizing ProviderResult TypeResult StatusCorey Angie DOLAB BLOOD ORDERABLES Final ResultPerforming OrganizationAddressCity/State/ZIP CodePhone Number [facility] * US OB limited 1+ fetuses (03/19/2025 10:09 AM EDT)Anatomical RegionLaterality ModalityBodyUltrasoundSpecimen (Source)Anatomical Location / Laterality Collection Method / VolumeCollection TimeReceived Time03/21/2025 8:32 AM EDT Narrative 03/21/2025 8:32 AM EDT EXAM: US OB LIMITED 1+ FETUSES HISTORY: ??Follow up anatomy. COMPARISON: ??Ob ultrasound 02/19/2025. TECHNIQUE: Two-dimensional transabdominal grayscale ultrasound imaging of the pelvis was performed. FINDINGS: Gestation: Single Presentation: ??Cephalic ?? Cardiac Activity: ??153 beats per minute Amniotic Fluid: Appears adequate ANATOMY Four Chamber Heart: Unremarkable LVOT: Unremarkable RVOT: Unremarkable IMPRESSION: 1. Single, live intrauterine gestation 25 weeks, 1 ??days by LMP. ??SOFIA by LMP is 07/01/2025. 2. Unremarkable follow-up anatomy of the heart. Interpreted by: Electronically signed by ALDEN PEREA II, ?? , PHD at 21-Mar-2025 08:31:03 AM [facility] Procedure Note Alden Perea MD - [...] signed by ALDEN PEREA II, MD, PHD 08:31:03 AM [facility] Authorizing ProviderResult TypeResult StatusKrprashant Avila NPIMG OB US PROCEDURESFinal Result from Last 3 Months Insurance
--- OUTSIDE RECORDS SUMMARY | 2025-06-19 11:15 | XMS_ITS | CCD ---
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 UANegativeNegative - 4(70) +++ mg/dLNOMS HealthcareBlood, UAPositive Negative - 50 Derick/mcLNOMS HealthcareComment on above:1+Clarity, UAClearNOMS HealthcareColor, UAStrawNOMS HealthcareGlucose, UANegativeNegative - 2000(110) ++++ mg/dLNOMS HealthcareInterpretation and review of laboratory resultsAbnormal NOMS HealthcareKetones, UANegativeNegative - 160(16) ++++ mg/dLNOMS Healthcare Leukocytes, UANegativeNegative - 500+++ Julio/mcLNOMS HealthcareNitrite, UA NegativeNegative - PositiveNOMS HealthcarepH, UA65 - 9NOMS HealthcareProtein, UA PositiveNegative - 2000(20) ++++ mg/dLNOMS HealthcareComment on above:2+Spec Grav, UA1.021 - 1.03NOMS HealthcareUrobilinogen, UA1.00.2 - 12 mg/dLNOMS HealthcareNOMS HealthcareUS OB FOLLOW UP TRANSABDOMINAL APPROACHon 15-75-6648AL OB FOLLOW UP TRANSABDOMINAL APPROACHA single, live intrauterine is present with normal [...] menstrual period. TRANSCRIBED BY: ELECTRONICALLY SIGNED BY: Ammon QuinterosNot AvailableComment on above:Order Comment: US OB SCAN FOR GROWTH Estimated Date of Delivery: 07/01/25 Gestational Age as of 04/17/2025: 58l1jKvafecmqas macro (dipstick) panel (U)on 31-50-8005Jxgwldcxg, UANegativeNegative - 4(70) +++ mg/dLNOMS HealthcareBlood, UAPositiveNegative - 50 Derick/mcLNOMS HealthcareComment on above:1+Clarity, UA ClearNOMS HealthcareColor, UAYellowNOMS HealthcareGlucose, UANegativeNegative - 1999(110) ++++ mg/dLNOMS HealthcareInterpretation and review of laboratory resultsAbnormalNOMS HealthcareKetones, UANegativeNegative - 160(16) ++++ mg/dL NOMS HealthcareLeukocytes, UANegativeNegative - 500+++ Julio/mcLNOMS Healthcare Nitrite, UANegativeNegative - PositiveNOMS HealthcarepH, UA65 - 9[facility] Healthcare Protein, UAPositiveNegative - 1999(20) ++++ mg/dLNOMS HealthcareSpec Grav, UA 1.011 - 1.03NOMS HealthcareUrobilinogen, UA1.00.2 - 12 mg/dLNOMS HealthcareNOMS HealthcareUrinalysis macro (dipstick) panel (U)on 97-97-5381Wqhzqtjpl, UA NegativeNegative - 4(70) +++ mg/dLNOMS HealthcareBlood, UAPositiveNegative - 50 Derick/mcLNOMS HealthcareClarity, UAClearNOMS HealthcareColor, UAYellowNOMS HealthcareGlucose, UANegativeNegative - 1999(110) ++++ mg/dLNOMS Healthcare Interpretation and review of laboratory resultsAbnormalNOMS HealthcareKetones, UANegativeNegative - 160(16) ++++ mg/dLNOMS HealthcareLeukocytes, UAPositive Negative - 500+++ Julio/mcLNOMS HealthcareNitrite, UANegativeNegative - Positive NOMS HealthcarepH, UA65 - 9NOMS HealthcareProtein, UANegativeNegative - 1999(20) ++++ mg/dLNOMS HealthcareSpec Grav, UA1.0151 - 1.03NOMS HealthcareUrobilinogen, UA1.00.2 - 12 mg/dLNOMS HealthcareNOMS HealthcareUrinalysis macro (dipstick) panel (U)on 73-29-6240Wtjqqggnd, UANegativeNegative - 4(70) +++ mg/dLNOMS HealthcareBlood, UAPositiveNegative - 50 Derick/mcLNOMS HealthcareClarity, UAClear NOMS HealthcareColor, UAYellowNOMS HealthcareGlucose, UANegativeNegative - 1999(110) ++++ mg/dLNOMS HealthcareInterpretation and review of laboratory resultsAbnormalNOAL HealthcareKetones, UANegativeNegative - 160(16) ++++ mg/dL NOMS HealthcareLeukocytes, UANegativeNegative - 500+++ Julio/mcLNOMS Healthcare Nitrite, UANegativeNegative - PositiveNOMS HealthcarepH, UA6.55 - 9NOMS HealthcareProtein, UANegativeNegative - 2000(20) ++++ mg/dLNOMS HealthcareSpec Grav, UA1.0151 - 1.03NOMS HealthcareUrobilinogen, UA1.00.2 - 12 mg/dLNOMS HealthcareNOMS HealthcareGLUCOSE TOLERANCE 3 HOURon 82-32-9413RADOKQM TOLERANCE 3 HOURHighmg/dLNOMS HealthcareComment on above:GLU FAST 86 (<95) Col: 03/21/25 0856 GLU 1HR 181H (<180) Col: 03/21/25 1002 GLU 2HR 162H (<155) Col: 03/21/25 1102 GLU 3HR 75 (<140) Col: 03/21/25 1202 Interpretation and review of laboratory resultsAbnormalMOAB REGIONAL [facility]ITAL HealthcareCLINISYNC NOMS HealthcareUS OB LIMITED 1+ FETUSESon 80-81-2463UJ OB LIMITED 1+ FETUSES EXAM: US OB [...] II, MD, PHD at 21-Mar-2025 08:31:03 AM [facility] TeleradiologyNormalNot AvailableComment on above:Order Comment: US OB INCOMPLETE ANATOMY Estimated Date of Delivery: 07/01/25 Gestational Age as of 02/24/2025: 08v3tXBH,APTIMA HPV,AGE GDLNon 65-29-6424ESQ [facility] AC TESTINGNotsandoval.[facility] HealthcareComment on above:TESTS RESULT FLAG UNITS REF RANGE LAB Clinician Provided Cytology Information Source.............[employer] Other.............. No. of containers..01 ThinPrep Vial Age Brijesh LIANET Mandie... FLAG LEGEND: L-Low Normal,H-High Normal,LL-Alert Low,HH-Alert High <-Panic Low,>-Panic High,A-Abnormal,AA-Critical Abnormal Performed at: 01 =G [address] [address] Mckenna Polanco MD, IGP, RFX APTIMA HPV ASCUNote.[facility] HealthcareComment on above:TESTS RESULT FLAG UNITS REF RANGE LAB DIAGNOSIS: 02 NEGATIVE FOR INTRAEPITHELIAL LESION OR MALIGNANCY. Specimen adequacy: 02 Satisfactory for evaluation. No endocervical component is identified. Performed by: 02 Vernell Pineda, Communications Manager ([facility]) . 02 Note: Note 02 [...] <-Panic Low,>-Panic High,A-Abnormal,AA-Critical Abnormal Performed at: [address] [address] Mckenna Polanco MD, Performed at: = - [facility] [id number] [employer] Tanker Driver: Mckenna Polanco MD, Phone: [phone] Performed at: [facility] [address] [id number] [employer] Tanker Driver: Mckenna Polanco MD, Phone: [phone] [facility] ENDOCERVIX CLINISYNCNOMS HealthcareGLUCOSE 1 HOURon 47-19-5359Nemibpy [Mass/Vol]141 mg/dL HighNINF - 130 mg/dLNOAL HealthcareInterpretation and review of laboratory resultsAbnormalNOMS HealthcareCLINISYNCGlucose tolerance, 1 houron 03-06-2025 Glucose Tolerance Test 1 Luxd766TfcJqmymf Health SystemNo Panel Informationon 10-72-6941VRSD HealthcareUrinalysis macro (dipstick) panel (U)on 03-05-2025 Bilirubin, UANegativeNegative - 4(70) +++ mg/dLNOMS HealthcareBlood, UANegative Negative - 50 Derick/mcLNOAL HealthcareClarity, UAClearNOMS HealthcareColor, UA YellowNOMS HealthcareGlucose, UANegativeNegative - 2000(110) ++++ mg/dLNOAL HealthcareInterpretation and review of laboratory resultsNormalNOAL Healthcare Ketones, UANegativeNegative - 160(16) ++++ mg/dLNOAL HealthcareLeukocytes, UA NegativeNegative - 500+++ Julio/mcLNOAL HealthcareNitrite, UANegativeNegative - PositiveNOMS HealthcarepH, UA65 - 9NOAL HealthcareProtein, UANegativeNegative - 2000(20) ++++ mg/dLNOAL HealthcareSpec Grav, UA1.011 - 1.03NOAL Healthcare Urobilinogen, UA0.20.2 - 12 mg/dLNOSaint John's HospitalNOAL HealthcareUS OB 14+ WEEKS ANATOMY SCANon 37-75-9432RA OB 14+ WEEKS ANATOMY SCANEXAM: US OB 14+ WEEKS ANATOMY SCAN HISTORY: [...] II, MD, PHD at 20-Feb-2025 09:47:05 AM [facility] TeleradiologyNormalNot AvailableComment on above:Order Comment: US OB ANATOMY SINGLE W US OB CERVICAL LENGTH Estimated Date of Delivery: 07/01/25 Gestational Age as of 02/12/2025: 34y9eJPF surface Ag IA Qlon 78-13-8406Psyriaxnq B Surface AntigenNegativeProMedica Health SystemProMedica Health SystemBOX TEST on 21-15-4064VSX TEST SENT OUTUNITY BOXNOAL DfhbsaprwsKCH7TREJBCUYA Healthcare BOX20/02/25NOAL HealthcareUNITY BOX CLINISYNCDrug Screen, Urineon 48-48-3837Nrpijrjaojb/MethamphetamineNegative [facility] SystemBarbituratesNegativeProMedica Health System BenzodiazepinesNegativeProMedica Health SystemCocaine MetaboliteNegative [facility] SystemEcstasyNegativeProMedica Health SystemMethadoneNegative [facility] SystemOpiatesNegativeProMedica Health SystemOxycodoneNegative [facility] SystemPhencyclidineNegativeProMedica Health SystemThc Marijuana, UrinePositiveProMedica Health SystemHIV 1+2 Ab+HIV1 p24 Ag IA Qlon 39-34-6331JWQ 1&2 AB/AGNon-ReactiveProSuburban Community Hospital & Brentwood HospitalHemoglobin A1con 27-57-5173WcZ6p (Bld) [Mass fraction]4.9 %4.0 - 6.0 %[facility] SystemNo Panel Informationon 95-73-4140AIUY HealthcareRubella IGG immune statuson 22-20-4768Ufhkfmg immune IgG7.29ProMercy Health St. [facility] SystemType and screenon 30-72-7950Ths/Rh(D)NegativeProSuburban Community Hospital & Brentwood HospitalNo Panel Informationon 48-49-8886FVTITFYZXKZGGZ EPIDERMIDIS, HAEMOLYTICUS, LUGDUNENSIS, SAPROPHYTICUS (WCROP9PEKA HealthcareSTAPHYLOCOCCUS EPIDERMIDIS, HAEMOLYTICUS, LUGDUNENSIS, SAPROPHYTICUS (URINANot detectedNOMS HealthcareURINARY TRACT INFECTION (HTRX)on 67-64-9891HSHAPHVTBFTMA FLWVWZEY2SBRH HealthcareACINETOBACTER BAUMANIINot detectedNOMS HealthcareCANDIDA ALBICANS, PARAPSILOSIS, WGMQUKYBWR3OCQU HealthcareCANDIDA ALBICANS, PARAPSILOSIS, TROPICALISNot detectedNOMS Healthcare MAYNOR HSAHCXRD2FYFR HealthcareCANDIDA GLABRATANot detectedNOMS Healthcare MAYNOR BXTOXL8NNCQ HealthcareCANDIDA KRUSEINot detectedNOMS Healthcare CITROBACTER LSDERXVW4JOLP HealthcareCITROBACTER FREUNDIINot detectedNOMS HealthcareENTEROBACTER AEROGENES, TWGZHOQ6LLXA HealthcareENTEROBACTER AEROGENES, CLOACAENot detectedNOMS HealthcareENTEROCOCCUS FAECALIS, DLMRKUT1GWWR Healthcare ENTEROCOCCUS FAECALIS, FAECIUMNot detectedNOMS HealthcareESCHERICHIA YPSA7FEWU HealthcareESCHERICHIA COLINot detectedNOMS HealthcareKLEBSIELLA PNEUMONIAE, VHMFWWY7XNJB HealthcareKLEBSIELLA PNEUMONIAE, OXYTOCANot detectedNOMS Healthcare MORGANELLA PNOUSYVS5SGKK HealthcareMORGANELLA MORGANIINot detectedNOMS HealthcarePROTEUS MIRABILIS, GFBSRNNH1ZJAL HealthcarePROTEUS MIRABILIS, VULGARIS Not detectedNOMS HealthcarePSEUDOMONAS YQTTXYUANP0SBNN HealthcarePSEUDOMONAS AERUGINOSANot detectedNOMS HealthcareSERRATIA YGXZPEGKPY6AUSY HealthcareSERRATIA MARCESCENSNot detectedNOMS HealthcareSTAPHYLOCOCCUS SPPQVY0RUQC Healthcare STAPHYLOCOCCUS AUREUSNot detectedNOMS HealthcareSTREPTOCOCCUS AGALACTIAE (GROUP B STREP)0NOMS HealthcareSTREPTOCOCCUS AGALACTIAE (GROUP B STREP)Not detectedNOMS HealthcareSTREPTOCOCCUS PYOGENES (GROUP A STREP)0NOMS HealthcareSTREPTOCOCCUS PYOGENES (GROUP A STREP)Not detectedNOMS HealthcareNOMS HealthcareUrinalysis macro (dipstick) panel (U)on 98-84-8888Chfndjbst, UANegativeNegative - 4(70) +++ mg/dLNOMS HealthcareBlood, UAPositiveNegative - 50 Derick/mcLNOMS HealthcareComment on above:Trace-intactClarity, UAClearNOMS HealthcareColor, UAYellowNOMS HealthcareGlucose, UANegativeNegative - 2000(110) ++++ mg/dLNOMS Healthcare Interpretation and review of laboratory resultsAbnormalNOMS HealthcareKetones, UANegativeNegative - 160(16) ++++ mg/dLNOMS HealthcareLeukocytes, UANegative Negative - 500+++ Julio/mcLNOMS HealthcareNitrite, UANegativeNegative - Positive NOMS HealthcarepH, UA75 - 9NOMS HealthcareProtein, UATraceNegative - 2000(20) ++++ mg/dLNOMS HealthcareSpec Grav, UA1.021 - 1.03NOMS HealthcareUrobilinogen, UA1.00.2 - 12 mg/dLNOMS HealthcareNOMS HealthcareHCG ( test) Ql (U)on 77-76-9504Jlgdkqygpkoebi and review of laboratory resultsAbnormalNOMS Healthcare Preg Test, UrPositiveNegativeNOMS HealthcareNOMS HealthcareUS OB LIMITED 1+ FETUSESon 28-27-4439XO OB LIMITED 1+ FETUSESEXAM: US OB LIMITED 1+ FETUSES HISTORY: Dating. [...] II, MD, PHD at 27-Jan-2025 10:23:04 AM [facility] TeleradiologyNormalNot AvailableComment on above:Order Comment: US OB TRANSVAGINAL No LMP recorded.Urinalysis macro (dipstick) panel (U)on 78-02-3573Myqqdvstd, UA NegativeNegative - 4(70) +++ mg/dLNOMS HealthcareBlood, UAPositiveNegative - 50 Derick/mcLNOMS HealthcareComment on above:Trace-IntactClarity, UAClearNOMS HealthcareColor, UAYellowNOMS HealthcareGlucose, UANegativeNegative - 2000(110) ++++ mg/dLNOMS HealthcareInterpretation and review of laboratory resultsAbnormal NOMS HealthcareKetones, UANegativeNegative - 160(16) ++++ mg/dLNOMS Healthcare Leukocytes, UANegativeNegative - 500+++ Julio/mcLNOMS HealthcareNitrite, UA NegativeNegative - PositiveNOMS HealthcarepH, UA75 - 9NOMS HealthcareProtein, UA NegativeNegative - 2000(20) ++++ mg/dLNOMS HealthcareSpec Grav, UA1.021 - 1.03 NOMS HealthcareUrobilinogen, UA0.20.2 - 12 mg/dLNOMS HealthcareNOMS Healthcare Urine Cultureon 61-42-6412Cvfdzfrl identified Cx Nom (U)No Growth 2 Days PERFORMED BY: [place] [address] PATHOLOGIST CHIEF DESIGN DRAFTER RAHUL HOLCOMB M.D.NormalLake City Va Medical Center Physician GroupComment on above: Performed By: #### CUU #### [address] Wise StreetAmphetamine Screen Ql (U)Ordered By: Denny Azevedo on 90-49-1641Zdgwncsdlyou Ql (U)NegativeNegativeTrumbull Regional Medical Center Amylase [Enzymatic activity/volume] in Serum or PlasmaOrdered By: Denny Azevedo on 52-95-5630Dkugwod [Catalytic activity/Vol]32 U/S55-598MtjeeoqehTrumbull Regional Medical CenterAspartate aminotransferase [Enzymatic activity/volume] in Serum or PlasmaOrdered By: Denny Azevedo on 02-44-6474NHP [Catalytic activity/Vol]24 U/L 13-39Tr[facility] Medical CenterAutomated erythrocytes count in urine sediment (number/area)Ordered By: Denny Azevedo on 47-95-0028IZQ Auto (Urine sed) [#/Area]10-19 [HPF]0-4FProtestant HospitalAutomated leukocytes count in urine sediment (number/area)Ordered By: Denny Azevedo on 88-27-4926ZMQ Auto (Urine sed) [#/Area]3-4 [HPF]0-4FProtestant Hospital Barbiturates [Presence] in Urine by Screen methodOrdered By: Denny Azevedo on 25-95-5192Cwpolqsnvtwq Screen Ql (U)NegativeNegWilson Street HospitalBasophils Auto (Bld) [#/Vol]Ordered By: Denny Azevedo on 08-11-2023 Basophils (Bld) [#/Vol]0.1 10*3/uL0.0-0.2FProtestant Hospital Basophils/100 WBC Auto (Bld)Ordered By: Denny Azevedo on 56-66-7464Lbpjdiaaj/100 WBC (Bld)0.9 %.[facility] Medical CenterBenzodiazepines Screen Ql (U) Ordered By: Denny Azevedo on 41-93-4709Xoobwortduewpbw Ql (U)NegativeNegative [facility] CenterBenzoylecgonine [Presence] in Urine by Screen methodOrdered By: Denny Azevedo on 99-92-7365Ehwsxwlvqxkveis Screen Ql (U) NegativeNegativeTrumbull Regional Medical CenterBilirubin Test strip Ql (U) Ordered By: Denny Azevedo on 41-72-4620Qkebmisrm Ql (U)NegativeNegativeTrumbull Regional Medical CenterCannabinoids [Presence] in Urine by Screen methodOrdered By: Denny Azevedo on 82-64-3078Ehnhdkomggel Screen Ql (U)PositiveNegative [facility] CenterComment on above:These are unconfirmed results and should not be used for legal purposes. Drug Cut-Off Concentration: AMPH 1000 ng/mL THOMAS 200 ng/mL ARTHUR 200 ng/mL COCM 300 ng/mL OP 300 ng/mL PCP 25 ng/mL THC 20 ng/mLCarbon dioxide, total [Moles/volume] in Serum or PlasmaOrdered By: Denny Azevedo on 47-24-1944TU9 [Moles/Vol]17.8 mmol/L21.0-31.0[facility] CenterChloride [Moles/volume] in Serum or PlasmaOrdered By: Denny Azevedo on 08-12-4851Cvgcznay [Moles/Vol]108 mmol/Y02-248AtkonuxpaTrumbull Regional Medical CenterColor Auto (U)Ordered By: Denny Azevedo on 82-37-2434Aqdzd (U) YellowYellowTrumbull Regional Medical CenterCreatine kinase [Enzymatic activity/volume] in Serum or PlasmaOrdered By: Denny Azevedo on 54-50-9201JA [Catalytic activity/Vol]225 U/G90-646NatwybukwTrumbull Regional Medical CenterCreatinine [Mass/volume] in Serum or PlasmaOrdered By: Denny Azevedo on 08-11-2023 Creatinine [Mass/Vol]0.68 mg/dL0.60-1.20[facility] Eosinophils Auto (Bld) [#/Vol]Ordered By: Denny Azevedo on 10-96-4375Gvegpauuymr (Bld) [#/Vol]0.1 10*3/uL0.0-0.45[facility] Eosinophils/100 WBC Auto (Bld)Ordered By: Denny Azevedo on 08-11-2023 Eosinophils/100 WBC (Bld)1.3 %.[facility] Medical CenterErythrocyte distribution width Auto (RBC) [Ratio]Ordered By: Denny Azevedo on 08-11-2023 Erythrocyte distribution width (RBC) [Ratio]12.9 %11.9-15.3FProtestant HospitalEthanol [Mass/volume] in Serum or PlasmaOrdered By: Denny Azevedo on 50-89-5981Tvmkyum [Mass/Vol]mg/dLTrumbull Regional Medical CenterEthanol [Mass/Vol]TNPTrumbull Regional Medical CenterComment on above:Test not performedGlucose [Mass/volume] in Serum or PlasmaOrdered By: Denny Azevedo on 90-71-5398Twfponf [Mass/Vol]109 mg/kZ96-301XypozzjwtTrumbull Regional Medical Center Comment on above:ADA recommended reference rangeRandom Glucose Reference Range is dependent on time and content of last meal. Glucose of more than 200 mg/dL in a nonstressed, ambulatory subject supports the diagnosisof Diabetes Mellitus. HCG ( test) IA.rapid Ql (U)Ordered By: Denny Azevedo on 51-51-9799YFZ ( test) Ql (U)NegativeTrumbull Regional Medical CenterHematocrit Auto (Bld) [Volume fraction]Ordered By: Denny Azevedo on 42-71-3432Xielpmgzpv (Bld) [Volume fraction]40.4 %34.0-46.4FProtestant HospitalHemoglobin [Mass/volume] in BloodOrdered By: Denny Azevedo on 12-36-9641Lpbjvxuwbf (Bld) [Mass/Vol]14.2 g/dL11.8-15.4FProtestant HospitalINR in Platelet poor plasma by Coagulation assayOrdered By: Denny Azevedo on 33-74-9428CDJ Coag (PPP) [Relative time]1.0 {INR}[facility] CenterComment on above: INR Therapeutic Range A) Pre- and Peroperative [...] By: Denny Azevedo on 08-11-2023 Ketones (U) [Mass/Vol]TraceNegativeTrumbull Regional Medical CenterLaboratory - UrinalysisOrdered By: Denny Azevedo on 56-90-2456Wwdukee casts LM Ql (Urine sed)0-8 [LPF]0-8[facility] CenterLeukocytes [#/volume] corrected for nucleated erythrocytes in Blood by Automated counOrdered By: Denny Azevedo on 05-10-7763DHT corrected for nucl RBC Auto (Bld) [#/Vol]7.9 10*3/uL3.8-11.6 [facility] CenterLipase [Enzymatic activity/volume] in Serum or PlasmaOrdered By: Denny Azevedo on 99-43-5341Hvllhf [Catalytic activity/Vol]13.0 U/L11.0-82.0[facility] Medical CenterLymphocytes Auto (Bld) [#/Vol] Ordered By: Denny Azevedo on 49-04-1984Ozbhiujnvlp (Bld) [#/Vol]1.8 10*3/uL 1.00-4.8[facility] Medical CenterLymphocytes/100 WBC Auto (Bld)Ordered By: Denny Azevedo on 44-93-6797Byjttgvbndm/100 WBC (Bld)23.1 %.[facility] Auto (RBC) [Entitic mass]Ordered By: Denny Azevedo on 43-65-3066KPM (RBC) [Entitic mass]30.4 pg24.7-34.3FProtestant HospitalMCHC Auto (RBC) [Mass/Vol]Ordered By: Denny Azevedo on 34-28-8824VIVS (RBC) [Mass/Vol]35.1 g/dL32.0-35.0[facility] CenterMCV Auto (RBC) [Entitic vol]Ordered By: Denny Azevedo on 09-76-0460GGR (RBC) [Entitic vol]86.7 yK52-187WsihppomlTrumbull Regional Medical CenterMonocyte distribution width [Entitic volume] in Blood by AutomatedOrdered By: Denny Azevedo on 08-11-2023 Monocyte distribution width Auto (Bld) [Entitic vol]17.99 %0.00-20.00[facility] Medical CenterMonocytes Auto (Bld) [#/Vol]Ordered By: Denny Azevedo on 40-32-8218Busojmera (Bld) [#/Vol]0.5 10*3/uL0.0-0.8[facility] CenterMonocytes/100 WBC Auto (Bld)Ordered By: Denny Azevedo on 08-11-2023 Monocytes/100 WBC (Bld)6.9 %.[facility] Medical CenterNeutrophils Auto (Bld) [#/Vol]Ordered By: Denny Azevedo on 02-95-2470Elpdnwnyfti (Bld) [#/Vol]5.4 10*3/uL1.8-7.7FProtestant HospitalNeutrophils/100 WBC Auto (Bld) Ordered By: Denny Azevedo on 64-23-2191Mxnmqztnarp/100 WBC (Bld)67.8 %.[facility] Medical CenterNitrite Test strip Ql (U)Ordered By: Denny Azevedo on 41-12-6406Zsllipp Ql (U)NegativeNegativeTrumbull Regional Medical CenterNo Panel InformationOrdered By: Denny Azevedo on 52-88-3609Skcrymeao GFR (CKD-EPI)> 60.0 mL/MinTrumbull Regional Medical CenterPharmacy Creatinine Clearance (Chem 138.27[facility] Medical CenterNucleated erythrocytes [Presence] in Blood by Automated countOrdered By: Denny Azevedo on 17-26-3581Iinmmhyei RBC Auto Ql (Bld)0.1 /100{WBC}0-0.5FProtestant HospitalOpiates [Presence] in Urine by Screen methodOrdered By: Denny Azevedo on 08-11-2023 Opiates Screen Ql (U)NegativeNegWilson Street [facility] Phencyclidine Screen Ql (U)Ordered By: Denny Azevedo on 37-01-1097Wieytmiepnbtb Ql (U)NegativeNegativeTrumbull Regional Medical CenterPlatelet mean volume Auto (Bld) [Entitic vol]Ordered By: Denny Azevedo on 78-26-1494Wpswfrgj mean volume (Bld) [Entitic vol]7.7 fL6.3-10.7FProtestant HospitalPlatelets Auto (Bld) [#/Vol]Ordered By: Denny Azevedo on 78-54-6374Cwmbtoisu (Bld) [#/Vol]307 10*3/gW812-786BprfvzbrtTrumbull Regional Medical CenterPotassium [Moles/volume] in Serum or PlasmaOrdered By: Denny Azevedo on 84-88-0129Jrrtobjwl [Moles/Vol]3.3 mmol/L 3.5-5.1FProtestant HospitalProtein Auto test strip (U) [Mass/Vol] Ordered By: Denny Azevedo on 20-77-2825Oglkmxg (U) [Mass/Vol]30 mg/dLNegative [facility] CenterProthrombin time (PT)Ordered By: Denny Azevedo on 72-05-6152HX Coag (PPP) [Time]12.1 s9.0-12.9[facility] Comment on above:A hematocrit value greater than 55% may lead to inaccurate results in coagulation testing. Patientshaving hematocrit values >55% require a special collection tube for coagulation studies. Please contact the laboratory at [phone] for redraw instructions.RBC Auto (Bld) [#/Vol]Ordered By: Denny Azevedo on 87-01-2373NLD (Bld) [#/Vol]4.66 10*6/uL3.60-5.00[facility] Hospitalerum or plasma anion gap determinationOrdered By: Denny Azevedo 97-31-2114Gxsck gap [Moles/Vol]15.5 mmol/L6.0-15.0[facility] Hospitalodium [Moles/volume] in Serum or PlasmaOrdered By: Denny Azevedo 47-76-6507Ftmaqh [Moles/Vol]138 mmol/M437-560CovvmukqtTrumbull Regional Medical Center Specific gravity Auto test strip (U) [Rel density]Ordered By: Denny Azevedo 17-79-3106Ejhritwf gravity (U) [Rel density]1.0261.001-1.030[facility] Hospitalquamous epithelial cells detection in urine sediment by light microscopyOrdered By: Denny Azevedo on 50-81-3676Wsaxsyrfkl cells.squamous LM Ql (Urine sed)0-1 [HPF]0-2FProtestant HospitalUrea nitrogen [Mass/volume] in Serum or PlasmaOrdered By: Denny Azevedo 42-09-9250Pvgw nitrogen [Mass/Vol]11 mg/dL7-25[facility] CenterUrine bacteria detection by automated methodOrdered By: Denny Azevedo 14-09-7043Qiirreev Auto Ql (U)None seenNone SeenTrumbull Regional Medical CenterUrine clarity by refractometry automatedOrdered By: Denny Azevedo on 62-71-8143Iergecg Refractometry automated (U)ClearCleMercy Health St. Joseph Warren HospitalUrine glucose measurement by automated test strip (mass/volume)Ordered By: Denny Azevedo on 14-79-2751Gmnczwf Auto test strip (U) [Mass/Vol]Normal mg/dLNoWayne HealthCare Main CampusUrine hemoglobin detection by automated test stripOrdered By: Denny Azevedo on 39-47-1577Hylozxrqif Auto test strip Ql (U)2+ NegativeTrumbull Regional Medical CenterUrine leukocyte esterase detection by automated test stripOrdered By: Denny Azevedo on 56-20-4174Andgjgygv esterase Auto test strip Ql (U)NegativeNegativeTrumbull Regional Medical Center Urobilinogen Auto test strip (U) [Mass/Vol]Ordered By: Denny Azevedo on 09-00-5491Uirdhdsshjom (U) [Mass/Vol]Normal mg/dLTogus VA Medical CenterWBC Auto (Bld) [#/Vol]Ordered By: Denny Azevedo on 52-28-5723YRK (Bld) [#/Vol]7.9 10*3/uL3.8-11.6FProtestant HospitalpH Auto test strip (U)Ordered By: Denny Azevedo on 51-49-5918xP (U)6.5 [pH]5.0-9.0[facility] CenterBILIRUBIN CONJUGATED (DIRECT)on 98-64-4841XYOP, CONJUGATED0.3 mg/dLCritically high0.0-0.2The [facility] CenterComment on above: Performed By: #### DBIL #### [facility] [address] [place] [address] Dr. Yaritza BojorquezT.J. [facility] AUTO DIFFon 63-98-4812DDKR #0.1 103/ulNormal0.0-0.1The [facility] Medical CenterComment on above:Performed By: #### CBC #### [facility] [address] [address] [address] Yaritza Shieldssophils/100 WBC (Bld)0.5 %Normal0.2-2.0[facility] Comment on above:Performed By: #### CBC #### [facility] [address] [place] [address] Dr. Yaritza Blue #0.0 103/ulNormal0.0-0.7The [facility] CenterComment on above: Performed By: #### CBC #### [facility] [address] [place] [address] Dr. Yaritza Tafoyaosinophils/100 WBC (Bld)0.1 %Critically low0.9-7.0The [facility] CenterComment on above:Performed By: #### CBC #### [facility] [address] [place] [address] Dr. Yaritza Tafoyarythrocyte distribution width (RBC) [Ratio]12.1 %Gysmpw30.0-15.0 The [facility] CenterComment on above:Performed By: #### CBC #### [facility] [address] [place] [address] Dr. Yaritza BojorquezHematocrit (Bld) [Volume fraction]45.0 %Odnjwa94.0-48.0The [facility] CenterComment on above:Performed By: #### CBC #### [facility] [address] [place] [address] Dr. Yaritza BojorquezHemoglobin (Bld) [Mass/Vol]16.5 g/dLCritically high12.0-16.0The [facility] CenterComment on above:Performed By: #### CBC #### [facility] [address] [place] [address] Dr. Yaritza Chandler #0.05 10e3/ulCritically high0.00-0.03The [facility] Comment on above:Performed By: #### CBC #### [facility] [address] [place] [address] Dr. Yaritza Chandler %0.3 %Normal0.0-0.5The [facility] CenterComment on above: Performed By: #### CBC #### [facility] [address] [place] [address] Dr. Yaritza Cruz #3.2 103/ulNormal1.2-3.8The [facility] CenterComment on above:Performed By: #### CBC #### [facility] [address] [place] [address] Dr. Yaritza Akersmphocytes/100 WBC (Bld)21.6 %Zgczyp93.5-60.0The [facility] CenterComment on above:Performed By: #### CBC #### [facility] [address] [place] [address] Dr. Yaritza GuidryUAL DIFF REQNONormalThe [facility]S Medical CenterComment on above: Performed By: #### CBC #### [facility] [address] [place] [address] Dr. Yaritza Tesfaye (RBC) [Entitic mass]30.7 nmQbibuu00.7-34.0The [facility] CenterComment on above:Performed By: #### CBC #### [facility] [address] [place] [address] Dr. Yaritza Tesfaye (RBC) [Mass/Vol]36.7 g/dLCritically high29.9-35.2The [facility] CenterComment on above:Performed By: #### CBC #### [facility] [address] [place] [address] Dr. Yaritza Tesfaye (RBC) [Entitic vol]83.8 rAOuyzob67.0-99.0The [facility] CenterComment on above:Performed By: #### CBC #### [facility] [address] [place] [address] Dr. Yaritza Mercedes #0.8 103/ulNormal0.3-0.8The [facility] CenterComment on above:Performed By: #### CBC #### [facility] [address] [place] [address] Dr. Yaritza Jonesocytes/100 WBC (Bld)5.3 %Normal1.7-12.0[facility] Comment on above:Performed By: #### CBC #### [facility] [address] [place] [address] Dr. Yaritza Pearce #10.5 103/ulCritically high1.4-6.5The [facility] Comment on above:Performed By: #### CBC #### [facility] [address] [place] [address] Dr. Yaritza Alegriautrophils/100 WBC (Bld)72.2 %Blhkhe57.0-75.0The [facility]ment on above:Performed By: #### CBC #### [facility] [address] [place] [address] Dr. Yaritza Blevinslet mean volume (Bld) [Entitic vol]10.0 fLNormal9.5-13.5The [facility] CenterComment on above:Performed By: #### CBC #### [facility] [address] [place] [address] Dr. Yaritza BojorquezPLT450 103/oxPmgepm394-434Pas [facility] on above: Performed By: #### CBC #### [facility] [address] [place] [address] Dr. Yaritza BojorquezRBC5.37 106/ulNormal4.20-5.40The [facility]S Medical CenterComment on above:Performed By: #### CBC #### [facility] [address] [place] [address] Dr. Yaritza BojorquezWBC14.6 103/ulCritically high4.0-11.0The [facility]ment on above:Performed By: #### CBC #### [facility] [address] [place] [address] Dr. Yaritza Vuong URINEon 51-66-0356NAGFBKH URINECulture Observations: LIGHT GROWTH OF MIXED GENITAL KRYSTAL. NO POTENTIAL PATHOGENS SEEN.NormalThe [facility]S Medical CenterComment on above:Performed By: #### URCX #### [facility] [address] [place] [address] Dr. Yaritza Bosch URINE PROFILEon 99-15-9481Dmkmqvrsb Ql (U)NegativeNormal NEGATIVEThe [facility]S Medical CenterComment on above:Performed By: #### ERUR, UMICRO #### [facility] [address] [place] [address] Dr. Yaritza BojorquezClarity (U)CLEARNormalCLEARThe [facility]S Medical CenterComment on above: Performed By: #### NENO UMICRO #### [facility] [address] [address] [address] Yaritza Cornell (U) YELLOWNormalYELLOWTogus Va Medical CenterComment on above:Performed By: #### NENO, UMICRO #### [facility] [address] [address] [address] Yaritza Day micrscopic examination will be performed if indicated. NormalTrinity Health System West Campus HospitalComment on above:Performed By: #### NENO UMICRO #### [facility] [address] [address] [address] Yaritza BojorquezGlucose Ql (U)NegativeNormalNEGATIVETogus Va Medical CenterComment on above:Performed By: #### NENO UMICRO #### [facility] [address] [address] [address] Yaritza BojorquezHemoglobin Ql (U)NegativeNormalNEGATIVEKettering Health Preble on above:Performed By: #### NENO UMICRO #### [facility] [address] [address] [address] Yaritza Jay Ql (U)>=80AbnormalNEGATIVETogus Va Medical CenterComment on above:Performed By: #### NENO UMICRO #### [facility] [address] [address] [address] Yaritza BojorquezLEUKOCYTESTRACEAbnormalNEGATIVETogus Va Medical CenterComment on above:Performed By: #### NENO, UMICRO #### [facility] [address] [address] [address] Yaritza BojorquezNitrite Ql (U)NegativeNormalNEGATIVETogus Va Medical CenterComment on above:Performed By: #### NENO, UMICRO #### [facility] [address] [address] [address] Yaritza BojorquezpH (U)6.5 [pH]Normal5-9[facility] Medical CenterComment on above: Performed By: #### ERUR, UMICRO #### [facility] [address] [place] [address] Dr. Yaritza BojorquezProtein (U) [Mass/Vol]100 mg/dLAbnormalNEGATIVE/ TRACEThe [facility]S Medical CenterComment on above:Performed By: #### NENO UMICRO #### [facility] [address] [place] [address] Dr. Yaritza BojorquezSPEC GRAVITY1.306Eorbyw9.005-<=1.025The [facility]S Medical CenterComment on above:Performed By: #### ALBA LAZCANOICRO #### [facility] [address] [place] [address] Dr. Yaritza Rodriguez MICRO INDINDICATEDNoMount St. Mary Hospitale [facility] Medical CenterComment on above: Performed By: #### BABAK LAZCANORO #### [facility] [address] [place] [address] Dr. Yaritza Lemosbilinogen Qn (U)4 {Emir'U}/dLAbnormal0.2 - 1.0The [facility]S Medical CenterComment on above:Performed By: #### NENO RAJANRO #### [facility] [address] [place] [address] Dr. Yaritza BojorquezPROF 14(COMP METB)on 28-63-1905Kdaavco [Mass/Vol]4.5 g/dLNormal 3.4-5.0The [facility] Medical CenterComment on above:Performed By: #### CMP #### [facility] [address] [place] [address] Dr. Yaritza BojorquezAlbumin/Globulin [Mass ratio]1.2 {ratio}NormalThe [facility]'S Medical CenterComment on above:Performed By: #### CMP #### [facility] [address] [place] [address] Dr. Yaritza Banks [Catalytic activity/Vol]48 U/DBjcvis50-421Vvq [facility] CenterComment on above:Performed By: #### CMP #### [facility] [address] [place] [address] Dr. Yaritza Garcia [Catalytic activity/Vol]25 U/VPigeqo35-55Wlt [facility] CenterComment on above:Performed By: #### CMP #### [facility] [address] [address] [address] Yaritza Escalante gap [Moles/Vol]17.8 mmol/LNormalTog[facility] Comment on above:Performed By: #### CMP #### [facility] [address] [address] [address] Yaritza BojorquezAST [Catalytic activity/Vol]11 U/LCritically way15-89Ptt [facility] Medical CenterComment on above:Performed By: #### CMP #### [facility] [address] [address] [address] Yaritza BojorquezBilirubin [Mass/Vol]1.4 mg/dLCritically high0.2-1.0The [facility] Medical CenterComment on above:Performed By: #### CMP #### [facility] [address] [address] [address] Yaritza BojorquezCalcium [Mass/Vol]9.3 mg/dLNormal8.5-10.1[facility] Comment on above:Performed By: #### CMP #### [facility] [address] [address] [address] Yaritza BojorquezChloride [Moles/Vol]98 mmol/APffcys59-100PfjTogus Va Medical Center Comment on above:Performed By: #### CMP #### [facility] [address] [address] [address] Yaritza BojorquezCO2 [Moles/Vol]19.1 mmol/LCritically low21.0-32.0The [facility] Medical CenterComment on above:Performed By: #### CMP #### [facility] [address] [address] [address] Yaritza BojorquezCreatinine [Mass/Vol]0.95 mg/dLNormal0.55-1.02The [facility] Medical CenterComment on above:Performed By: #### CMP #### [facility] [address] [address] [address] Vigil ChangEGFR-AF GUATEMALAN>60Normal>=60The [facility]S Medical CenterComment on above:Performed By: #### CMP #### [facility] [address] [address] [address] Yaritza Chavez-NON AF GUATEMALAN>60Normal>=60The [facility] CenterComment on above:Performed By: #### CMP #### [facility] [address] [address] [address] Yaritza BojorquezGlobulin (S) [Mass/Vol]3.6 g/dLNormalThProMedica Memorial HospitalComment on above:Performed By: #### CMP #### [facility] [address] [address] [address] Yaritza BojorquezGlucose [Mass/Vol]138 mg/dLCritically djtw32-006Ecp [facility] CenterComment on above:Performed By: #### CMP #### [facility] [address] [address] [address] Yaritza BojorquezPotassium [Moles/Vol]2.9 mmol/LCritically low3.5-5.1The [facility] CenterComment on above:Performed By: #### CMP #### [facility] [address] [address] [address] Yaritza BojorquezProtein [Mass/Vol]8.1 g/dLNormal6.4-8.2The [facility] Comment on above:Performed By: #### CMP #### [facility] [address] [address] [address] Yaritza BojorquezSodium [Moles/Vol]132 mmol/LCritically rbk333-675Syo [facility] CenterComment on above:Performed By: #### CMP #### [facility] [address] [address] [address] Yaritza BojorquezUrea nitrogen [Mass/Vol]8.0 mg/dLNormal7.0-18.0The [facility] Medical CenterComment on above:Performed By: #### CMP #### [facility] [address] [address] [address] Yaritza BojorquezUrea nitrogen/Creatinine [Mass ratio]8.4 mg/mgNormalThProMedica Memorial HospitalComment on above:Performed By: #### CMP #### [facility] [address] [address] [address] Yaritza Justin MICROSCOPIC ONLYon [id number]GGEY SEENKettering Health Dayton on above:Performed By: #### NENO, UMICRO #### [facility] [address] [address] [address] Yaritza Hidalgo identified Cx Nom (U)INDICATEDNoDayton VA Medical CenterComhenry ford [facility] on above:Performed By: #### RACHELLER, UMICRO #### [facility] [address] [address] [address] Yaritza Jones SEENNormwiNONE [facility] on above:Performed By: #### NENO UMICRO #### [facility] [address] [address] [address] Yaritza Cochran LM Nom (Urine sed)NONE SEENNormalNONE SEENKettering Health [place] on above:Performed By: #### NENO UMICRO #### [facility] [address] [address] [address] Vigil ChangEpithelial cells LM Ql (Urine sed)MANYAbnormalNONE SEEN /RAREKettering Health Dayton on above:Performed By: #### NENO UMICRO #### [facility] [address] [address] [address] Yaritza LeeMALLAbnormalNONE SEENKettering Health Dayton on above:Performed By: #### NENO UMICRO #### [facility] [address] [address] [address] Yaritza BojorquezLanwhWZR3-6Yrrcauad5-2PloKettering Health Dayton on above:Performed By: #### RACHELLER, UMICRO #### [facility] [address] [address] [address] Yaritza WhitlockBC5-10AbnormalNONE SEENKettering Health Dayton on above: Performed By: #### ERUR, TAYLA #### [facility] [address] [place], [place] [address] Dr. Yaritza BojorquezXR ABD FLAT UP_PA Coreen [id number] ABD FLAT UP_PA CHEXAMINATION: XR ABD FLAT UP_PA CH HISTORY: NAUSEA [...] Electronically authenticated by: MACK SAMUELS Date: 2022-03-03 07:46NoDayton VA Medical CenterCovid-19 PCR (CVDTBH)on [id number]-CoV-2 (COVID-19) RNA KOLE+probe Ql (Unsp spec)Not detectedNormalNOT DETECTEDTogus Va Medical Center Comment on above:Result Comment: This test is not yet approved or cleared by the [place] FDA. When there are no FDA-approved or cleared tests available, and other criteria are met, FDA can make tests available under an emergency access mechanism called an Emergency Use Authorization (EUA). The EUA for this test is supported by the [employer] of Health and Human Service's (HHS's) declaration that circumstances exist to justify the emergency use of in vitro diagnostics for the detection and/or diagnosis of the virus that causes COVID- 19. This EUA will remain in effect (meaning [...] of clinical signs and symptoms consistent with SARS-CoV-2.Performed By: #### CVDTBH #### [facility] [address], [place] [address] Dr. Yaritza BojorquezProvider Note - ED v2on [id number] Note - ED a1Ahjnyhry Note - ED v2: Chart Review: ED [...] No Current Medications SIGNIFICANT EVENTS: Immunizations Description:Tdap [employer]: Is : no(1) Is : no(1) RESULTS/VITAL SIGNS VITAL SIGNS: T PRBP SpO2O2(LPM) %FiO2 Method 22-Jun-2019 18:54:00-8274192/69 99 room air, no respiratory support 22-Jun-2019 18:07:00-36.37623410/71 97 room air, no respiratory support MEDICAL [...] - Final Verification: completed Procedure performed by: hi Package Wrapper(s): none Findings: grossly normal anatomy Specimen: no [...] Data Referenced From Triage - ED 22-Jun-2019 18:07[facility]Risk Screen - Adult Emergencyon [id number] Screen - Adult Emergency Preferred Language: Preferred Language: Preferred Language for Discussing Health Care (patient/designee)Senegalese Advanced Directives: Advance Directive/DNRno Family Violence Adult: Abuse Screen: Are you or have you been threatened or abused physically, emotionally, or sexually by anyoneno Learning Assessment (Patient): Learning Assessment (Patient): Patient is Able to be Assessed for Learningyes Factors Influencing Readiness to Learnacuteness of illness Factors that Impact Ability to Learnnone Devices/Methods Used to Communicatenone Learning Preferencesaudio Cultural Considerationsnone Developmental Considerationsnone Denominational Considerationsnone Learning Assessment (Other Learner): Learning Assessment (Other Learner): Other learner availableno Pressure Injury/TB/Substance: Pressure Injury: Pressure Injury Present on Admissionno Do you have a coughno Substance Use Current or Former Historynever: Cigarette/Tobacco, e-Cigarette/Vaping, Alcohol, Street Drugs Admission Risk Screen: Significant IndicatorsComplete CAGE: CAGE: Is this an injured patient at a Tra[place] Center [place]/[place]): yes C: Have you ever felt you needed to Cut down on your drinking: no A: Have people Annoyed you by criticizing your drinking: no G: Have you ever felt Guilty about drinking: no E: Have you ever felt you needed a drink first thing in the morning (Eye-planer hand) to steady your nerves or to get rid of hangover: no Electronic Signatures: Mehdi Chaney (RN) (Signed 22-Jun-2019 18:11) Authored: Preferred Language, Advanced Directives, Family Violence Adult, Learning Assessment (Patient), Learning Assessment (Other Learner), Pressure Injury/TB/Substance, CAGE Last Updated: 22-Jun-2019 18:11 by Mehdi Chaney (MALU)[facility] HospitalTriage - Desi [id number] - Maryann Triage: The patient and/or guardian verbally acknowledges [...] than 3 weeks: no Travel outside of [facility]: no Allergies: yes Last menstrual period: [...] Accompanied By: self Language: Spoken Language Preferred: Senegalese PRIMARY ASSESSMENT CHENTE GONZALEZ's primary assessment is [...] Last Updated: 22-Jun-2019 18:40 by Nitin Singer (AYALA)[facility] Vital Signs Date TimeVital SignValuePerforming OxguungnpRrdqokyy03-22-3088 09:50-0400Body mass index (BMI) [Ratio]37.61 kg/g6Qwizf Angie DO Work Phone: 1(597)[facility] [place], [place] [address]Triqmptbpg03-43-2599 09:50-0400Body .51 kgCorey Angie DO Work Phone: 1(904)[facility] [place], [place] [address]Uwajflwnzt81-27-3666 09:50-0400Diastolic blood pemmvznj09 mm[Hg]Jaspreet Angie DO Work Phone: 1(391)[facility] [place], [place] [address]Qlxdgrptfo18-64-5495 09:50-0400Systolic blood mm[Hg]Jaspreet Angie DO Work Phone: 1(377)[facility] [place], [place] [address]Ucwloyxcoh70-20-3086 11:40-0400Body mass index (BMI) [Ratio]37.28 kg/p9MjcgkshtWilly Avila NUCLEAR LICENSING ENGINEER Work Phone: 1(248)[address] [place], [place] [address]10-06-2025 11:40-0400Body tidzsj363.61 kgWilly Avila NUCLEAR LICENSING ENGINEER Work Phone: 1(253)[facility] [place], [place] [address]Wnvjougfdb50-82-9694 11:40-0400Diastolic blood lhnjfqje17 mm[Hg]Willy Avila NUCLEAR LICENSING ENGINEER Work Phone: 1(724)[facility] [place], [place] [address]Fevxdscplk81-59-9754 11:40-0400Systolic blood cewikeon578 mm[Hg]Willy Avila NUCLEAR LICENSING ENGINEER Work Phone: [phone])[address] [place], [place] [address]709-18-2025 10:03-0400Body mass index (BMI) [Ratio]36.08 kg/m2Deyanira KABA Work Phone: [phone])[address] [place], [place] [address]709-18-2025 10:03-0400Body uxepbb05.34 kgDeyanira KABA Work Phone: 1(957)[facility] [place], [place] [address]Pnvmylixiz52-90-8958 10:03-0400Diastolic blood ayompwal52 mm[Hg]Deyanira KABA Work Phone: 1(687)[facility] [place] [address]-18-2025 10:03-0400Systolic blood ijbsbolq587 mm[Hg]Deyanira KABA Work Phone: [facility]ullivanQkzssjfnsk22-95-4843 15:05-0400Body mass index (BMI) [Ratio]35.01 kg/b5Essvd Angie DO Work Phone: [facility]SullivanApkjkifrut74-26-0685 15:05-0400Body tkubay71.44 kgCorey Angie DO Work Phone: [facility]SullivanEprxpquhek29-17-2318 15:05-0400Diastolic blood yrxqthmf33 mm[Hg]Jaspreet Angie DO Work Phone: [facility]-SullivanJhmqzyvtvr60-73-8100 15:05-0400Systolic blood juorapwx322 mm[Hg]Jaspreet Angie DO Work Phone: [facility]-SullivanYdrsjmfojp45-38-0207 10:41-0400Body mass index (BMI) [Ratio]33.91 kg/m2Deyanira KABA Work Phone: [facility]-SullivanIlpijcueit47-30-3054 10:41-0400Body .44 kgDeyanira KABA Work Phone: [facility]-SullivanAbtuwrtlpi97-28-3834 10:41-0400Diastolic blood olfqqlxn04 mm[Hg]Deyanira KABA Work Phone: [facility]-SullivanLgfamorjag35-73-9376 10:41-0400Systolic blood jtdnulrt207 mm[Hg]Deyanira KABA Work Phone: [facility]-SullivanRzcxvxefvq77-07-6733 10:50-0400Body mass index (BMI) [Ratio]33.35 kg/e5Reome Angie DO Work Phone: [facility]SullivanJsoziohccd61-88-0396 10:50-0400Body lyjnjx24.9 kg Jaspreet Angie DO Work Phone: [facility]SullivanYhbdvmsvjt88-10-9806 10:50-0400Diastolic blood hrojsgoa97 mm[Hg]Jaspreet Angie DO Work Phone: [facility]SullivanEkglezgspo27-35-1291 10:50-0400Systolic blood zkedualn563 mm[Hg]Jaspreet Angie DO Work Phone: [facility]-SullivanCcjokmoiyd85-96-2228 11:16-0400Body mass index (BMI) [Ratio]31.62 kg/q6Xrrcy Angie DO Work Phone: [facility]-SullivanAcyrofuegx22-19-6315 11:16-0400Body lvyvsg64.18 kgCorey Angie DO Work Phone: 1(400)471-[facility]-SullivanJzpfjgiyqs80-46-8052 11:16-0400Diastolic blood yomndnpp73 mm[Hg]Jaspreet Angie DO Work Phone: 1(326)716-[address] [place], [place] [address]Vyzfnxsdry38-48-1726 11:16-0400Systolic blood rapoxjem609 mm[Hg]Jaspreet Angie DO Work Phone: 1(029)237-[address] [place], [place] [address]Kicvzfvmyy12-46-7673 10:57-0400Body mass index (BMI) [Ratio]31.53 kg/l1LraqxawaWilly Avila NUCLEAR LICENSING ENGINEER Work Phone: 1(435)878-[address] [place], [place] [address]Atizfkntmw89-72-7738 10:57-0400Body kstcju05.96 kgKrprashant Avila NUCLEAR LICENSING ENGINEER Work Phone: [phone] [place], [place] [address]Ijhmfxvngm45-66-9099 10:57-0400Diastolic blood ksdwcaoc16 mm[Hg]Willy Avila NUCLEAR LICENSING ENGINEER Work Phone: [phone] [place], [place] [address]Oqoibbiidi47-06-9139 10:57-0400Systolic blood mm[Hg]Willy Avila NUCLEAR LICENSING ENGINEER Work Phone: 1([phone] [place], [place] [address]Viiawveqlc94-00-5482 11:42-0400Diastolic blood ddqtducf39 mm[Hg][facility]05-30-2025 11:42-0400Systolic blood vldvlerj524 mm[Hg][facility]05-30-2025 11:21-0400Body mass index (BMI) [Ratio]32.01 kg/m2[facility]05-30-2025 11:21-0400Body kvtvuz90.26 kgKindred Hospital04-28-2025 13:51-0400Body mass index (BMI) [Ratio]31.35 kg/i5Evhkh Angie DO Work Phone: [facility]SullivanYmugmfkqhv92-45-8219 13:51-0400Body zynwju99.46 kgCorey Angie DO Work Phone: [facility]SullivanNmkecfcxyj81-08-8630 13:51-0400Diastolic blood duijbbqt10 mm[Hg]Jaspreet Angie DO Work Phone: [facility]OSaint [facility] HospitalBmcjocdaht40-70-4089 13:51-0400Systolic blood bpjfatme381 mm[Hg]Jaspreet Angie DO Work Phone: [facility]-SullivanOvoxkmwide60-67-4198 22:07-0500Diastolic blood fkfedswi26 mm[Hg]PHYSICIAN NO [facility]12-15-2023 22:07-0500Heart rate71 /minPHYSICIAN [facility] 08-11-2023 22:07-0500Respiratory rate18 /minPHYSICIAN [facility]12-15-2023 22:07-1533RkC1% (BldA) [Mass fraction]99 % PHYSICIAN NO [facility]12-15-2023 22:07-0500 Systolic blood llvcpuni068 mm[Hg]PHYSICIAN [facility]12-15-2023 19:17-0500Body gydghm334.18 cmPHYSICIAN [facility]23 19:17-0500Body ieljzi43.73 kgPHYSICIAN [facility] Encounters Encounter DateEncounter TypeCare ProviderFacilityStart: 06-12-2025 End: 42-14-0349Rtipql flowsheetCorey Angie DO Work Phone: [facility] OBGYNStart: 06-12-2025 End: 21-51-6202Ztaauc flowsheetCorey Angie DO Work Phone: [facility] OBGYNStart: 06-12-2025 End: 40-17-6881lnqxwzkytbETQCF FAZIONot AvailableStart: 06-12-2025 End: 82-96-5001Aegmep outpatient visit 15 minutesCorey Angie DO Work Phone: noms Mon[place] OBGYNComment on above:Third trimester ([facility]); 37 weeks gestation of ([facility])Start: 06-02-2025 End: 38-01-9368Zkrhrvigu Result EncounterCorey Angie DO Work Phone: noms External Department UnsolicitedStart: 06-02-2025 End: 16-91-3799Jrtifrnoy Result EncounterCorey Angie DO Work Phone: noms External Department UnsolicitedStart: 06-02-2025 End: 71-97-5104rslxhoqtllSSPSHBPA EBERLYNot AvailableStart: 06-02-2025 End: 37-59-4225Uxnujb outpatient visit 15 minutesWilly Avila NUCLEAR LICENSING ENGINEER Work Phone: noms Moneta OBGYNComment on above:35 weeks gestation of ([facility]); Third trimester ([facility])Start: 05-26-2025 End: 53-55-4734Umyrxnigk Result EncounterCorey Angie DO Work Phone: noms External Department UnsolicitedStart: 05-26-2025 End: 66-59-8416Jhdebhixq Result EncounterCorey Angie DO Work Phone: noms External Department UnsolicitedStart: 05-20-2025 End: 48-64-5468Nglbertsl Result EncounterCorey Angie DO Work Phone: noms External Department UnsolicitedStart: 05-20-2025 End: 54-17-6707Beoosousf Result EncounterCorey Angie DO Work Phone: noms External Department UnsolicitedStart: 05-19-2025 End: 00-33-9476Qnsfcmxhc Result EncounterCorey Angie DO Work Phone: noms External Department UnsolicitedStart: 05-19-2025 End: 80-24-6973Xqmhumxso Result EncounterCorey Angie DO Work Phone: NOMS External Department UnsolicitedStart: 05-15-2025 End: 62-51-4839Lrebrv Effie KABA Work Phone: NO Kadie OBGYNStart: 05-15-2025 End: 14-35-7877Bgqwgp Effie KABA Work Phone: [facility] OBGYNStart: 05-15-2025 End: 25-71-8195nyuznlbcnpRUD RAMEYNot AvailableStart: 05-15-2025 End: 73-22-0802Xdlrlf outpatient visit 15 minutesDeyanira KABA Work Phone: NOMS Kadie OBGYNComment on above:33 weeks gestation of ([facility]); Third trimester ([facility]); Gestational diabetes mellitus (GDM), antepartum, gestational diabetes method of control unspecified([facility])Start: 04-30-2025 End: 84-54-9010Keczan outpatient visit 15 minutesCorey Angie DO Work Phone: NOMS Kadie OBGYNComment on above:31 weeks gestation of ([facility]); Third trimester ([facility]); Gestational diabetes mellitus (GDM), antepartum, gestational diabetes method of control unspecified([facility])Start: 04-30-2025 End: 25-40-8429dcrrukryzuSKJEP FAZIONot AvailableStart: 04-17-2025 End: 64-11-0576Hhsidd Effie KABA Work Phone: N[facility]ie OBGYNStart: 04-17-2025 End: 14-20-5748Fxfpdv Effie KABA Work Phone: [facility] OBGYNStart: 04-17-2025 End: 27-59-8492qqvopcdpkiJNS RAMEYNot AvailableStart: 04-17-2025 End: 68-05-5546Khygdj outpatient visit 15 minutesDeyanira KABA Work Phone: NOMS Kadie OBGYNComment on above:Size of fetus inconsistent with dates in second trimester ([facility]) (Primary Dx); Third trimester ([facility]); 29 weeks gestation of ([facility])Start: 04-03-2025 End: 99-34-4630Zqbcod flowsheetCorey Angie DO Work Phone: noms [facility]ie OBGYNStart: 04-03-2025 End: 03-20-8429Fmjhlf flowsheetCorey Angie DO Work Phone: noms [facility] OBGYNStart: 04-03-2025 End: 64-55-3708ygzkmfxoosKPAIF FAZIONot AvailableStart: 04-03-2025 End: 25-88-2531Brjauk outpatient visit 15 minutesCorey Angie DO Work Phone: NOES Moneta OBGYNComment on above:Second trimester ([facility]); 27 weeks gestation of ([facility])Start: 03-28-2025 End: 89-92-3583Oumwm abstractingScanning Provider ExternalMaternal- Medicine at [facility] Hospitaltart: 03-21-2025 End: 73-49-6369Zxdhmtwmy Result EncounterCorey Angie DO Work Phone: noms External Department UnsolicitedStart: 03-21-2025 End: 87-45-4052Menavamkn Result EncounterCorey Angie DO Work Phone: noms External Department UnsolicitedStart: 03-19-2025 End: 99-56-9088pfebmtrbqbSEXLQ FAZIONot AvailableStart: 03-06-2025 End: 86-21-5995Dqsvindkq Result EncounterCorey Angie DO Work Phone: noms External Department UnsolicitedStart: 03-06-2025 End: 66-56-2079Kpkozdvdl Result EncounterCorey Angie DO Work Phone: noms External Department UnsolicitedStart: 03-05-2025 End: 46-77-4296Vlabay flowsheetCorey Angie DO Work Phone: NOMS BCP OBStart: 03-05-2025 End: 83-67-9585Tvjkye flowsheetCorey Angie DO Work Phone: NOMS BCP OBStart: 03-05-2025 End: 42-47-2218Nookmhmxv Result EncounterCorey Angie DO Work Phone: NOMS External Department UnsolicitedStart: 03-05-2025 End: 21-50-3993Glwpcel encounter procedureCorey Angie DO Work Phone: NOMS HealthcareStart: 03-05-2025 End: 93-44-9993Khkmilzl preventive med est patient 18-39 yrsCorey Angie DO Work Phone: [facility] OBComment on above:Second trimester ([facility]); 23 weeks gestation of ([facility]); Diabetes mellitus screening; Well woman exam with routine gynecological exam; Other insomniaStart: 03-05-2025 End: 01-51-1930lvieymlsccIHZYL FAZIONot AvailableStart: 02-19-2025 End: 30-55-8779fnbvpdjniiQHQAGLTF EBERLYNot AvailableStart: 02-12-2025 End: 45-43-4379roffjimthsHBKZF FAZIONot AvailableStart: 01-31-2025 End: 22-38-0476Gacdczvsr Result EncounterCorey Angie DO Work Phone: NOMS External Department UnsolicitedStart: 01-31-2025 End: 70-54-1123Itetmbots Result EncounterCorey Angie DO Work Phone: NOMS External Department UnsolicitedStart: 01-29-2025 End: 96-46-6378Ckvgse flowsheetLolaa Austin NUCLEAR LICENSING ENGINEER Work Phone: NOMS BCP OBStart: 01-29-2025 End: 50-30-4658Htcbjl flowsheetKristina Austin NUCLEAR LICENSING ENGINEER Work Phone: NOMS BCP OBStart: 01-29-2025 End: 40-86-0892Iykjlcam Result EncounterWilly Avila NUCLEAR LICENSING ENGINEER Work Phone: NOMS External Department UnsolicitedStart: 01-29-2025 End: 06-37-7641eshddfgcijNCEOMIJY EBERLYNot AvailableStart: 01-29-2025 End: 23-35-1955Poplvs outpatient visit 15 minutesWilly Avila NUCLEAR LICENSING ENGINEER Work Phone: NOMS BCP OBComment on above:Second trimester ; 18 weeks gestation of pregnancyStart: 01-24-2025 End: 43-94-6449Rjwdaz outpatient visit 5 minutesNoms Bcp Ob Angie NurseNOMS BCP OBComment on above:GA: 20m0fKntkj: 01-24-2025 End: 90-44-1667tbhnvesywkFOXBO FAZIONot AvailableStart: 01-06-2025 End: 22-30-9278gdlfahzhrnAiptkzg Filomena MarkerFacility:[facility] Hospitaltart: 01-06-2025 End: 14-38-0815Jincrjdf ReferredMelissa Marker DO Work Phone: [facility]-LAB Path Spec Kadie HospStart: 12-23-2024 End: 86-11-3509Brlsqp flowsheetCorey Angie DO Work Phone: NOMS BCP OBStart: 12-23-2024 End: 78-30-8731Jlbrsg flowsheetCorey Angie DO Work Phone: NOMS BCP OBStart: 12-23-2024 End: 59-43-9445gwftdiqqocZHNDQ FAZIONot AvailableStart: 12-23-2024 End: 84-33-5381Opsrhk outpatient visit 15 minutesCorey Angie DO Work Phone: noMS BCP OBComment on above:Hyperemesis gravidarum; Follow-up examStart: 08-11-2023 End: 55-34-8724Tswaflwdu department patient visitPHYSICIAN NO [facility] Work Phone: Start: 03-03-2022 End: 02-61-4908aihujbpuyzLG DOCTOR MISCFacility:V3Uwina: 08-23-2021 End: 77-37-6195ezhrpowrflZXIBSG RODRIGUEZFacility:H1 Procedures DateProcedureProcedure DetailPerforming ClinicianStart: 14-99-6845Ganhd dip stick/tablet rgnt non-auto w/o micrscpCorey Angie DO Work Phone: Start: 27-78-2107Xkeyx dip stick/tablet rgnt non-auto w/o micrscpKristina Austin NUCLEAR LICENSING ENGINEER Work Phone: Start: 34-98-3463PC OB BPP W NON-STRESSCorey Angie DO Work Phone: Start: 86-94-2971CO OB BPP W NON-STRESSCorey Angie DO Work Phone: Start: 04-55-3703NJ AMNIOTIC FLUID VOLUMECorey Angie DO Work Phone: Start: 98-90-7220NX OB BPP W NON-STRESSCorey Angie DO Work Phone: Start: 84-39-1132Xneuz dip stick/tablet rgnt non-auto w/o micrscpAmy Juan KABA Work Phone: Start: 34-73-1737Nwryr dip stick/tablet rgnt non-auto w/o micrscpCorey Angie DO Work Phone: Start: 79-01-8801Uxcft dip stick/tablet rgnt non-auto w/o micrscpCorey Angie DO Work Phone: Start: 64-75-2447Odvat dip stick/tablet rgnt non-auto w/o micrscpCorey Angie DO Work Phone: Start: 79-94-1996UUVSQMQ TOLERANCE 3 HOURCorey Angie DO Work Phone: Start: 77-15-9546Vsstovb tolerance test gtt 3 specimensNot In System Ref ProvStart: 50-52-9934NEVXFFC 1 HOURCorey Angie DO Work Phone: Start: 60-17-6415Bzgdi dip stick/tablet rgnt non-auto w/o micrscpCorey Angie DO Work Phone: Start: 58-06-8457ZFG,APTIMA HPV,AGE GDLNCorey Angie DO Work Phone: Start: 21-37-1074Pikx ia hepatitis b surface antigen Not In System Ref ProvStart: 34-01-8628WZH TESTCorey Angie DO Work Phone: Start: 79-01-9096Hqdujfjd rubellaNot In System Ref ProvStart: 98-34-2110Xgejcbpx screenScanning ExternalStart: 47-78-9770Lmfm scrn 1+ class nonchromoNot In System Ref ProvStart: 59-17-5835Obeqmdpwtq glycosylated s4sWphxelfj Provider ExternalStart: 87-64-4070KGI 1&2 AB/AG SCREEN (P24 AG)Not In System Ref ProvStart: 47-24-5983MDWA AND SCREENNot In System Ref ProvStart: 49-06-4759UMCZGAB TRACT INFECTION (HTRX)Willy Avila NP Work Phone: Start: 87-89-7009Whvdx dip stick/tablet rgnt non-auto w/o micrscpWilly Avila NP Work Phone: Start: 78-00-1431Rjdhm dip stick/tablet rgnt non-auto w/o micrscpCorey Angie DO Work Phone: Start: 55-95-4121Ftogq X-ray of right handPHYSICIAN NO FAMILYStart: 25-72-4166Zapzffgd tomography of abdomen and pelvis with contrast PHYSICIAN NO FAMILYStart: 37-75-2276KB cervical spine without contrastPHYSICIAN NO FAMILYStart: 71-26-8756TE of facial bones without contrastPHYSICIAN NO FAMILY Start: 32-66-1551UB of head without contrastPHYSICIAN NO FAMILYStart: 08-11-2023 CT of thorax with contrastPHYSICIAN NO FAMILYStart: 08-11-2023 End: 74-26-7710Brfij chest X-rayPHYSICIAN NO FAMILY Plan of Treatment DateCare ActivityDetailAuthorStart: 06-19-2025 End: 82-54-8671Nwpwvxt encounter emvcoughf92/23/2025 9:40 AM EDT Routine [facility]ie VARGAS [address] [place], [id number] Deyanira Martinez PA [address] [place], [place] [id number] NOMS Kadie OBGYNStart: 06-12-2025 End: 06-14-7098Ostnhwy encounter xsjbitbvy60/16/2025 9:40 AM EDT Routine [facility] VARGAS [address] [place], [id number] Jaspreet Adams DO [address] [place] [address] NOMS Kadie OBGYNStart: 06-02-2025 End: 53-23-1243MVMFKCW, GROUP B STREP WITH SUSCEPTIBLITYCULTURE, GROUP B STREP WITH SUSCEPTIBLITY Lab Routine Third trimester ([facility]) Expected: 06/02/2025, Expires: [facility] Work Phone: comment on above:Expected: 06/02/2025, Expires: 06/02/2026Start: 06-02-2025 End: 09-16-2167Jqxfmbo encounter otabumpir78/06/2025 11:20 AM EDT Routine NOMFerny VARGAS [address] [place] [address] Willy Avila, NUCLEAR LICENSING ENGINEER [address] [place] [address] NOMFerny [place] OBGYNStart: 04-30-2025 End: 35-86-6187CB biophysical profile w non stress testUS biophysical profile w non stress test Imaging Routine Gestational diabetes mellitus (GDM),antepartum, gestational diabetes method of control unspecified ([facility]) Expected: 04/30/2025 (Approximate), Expires: 10/28/2025[facility] Work Phone: comment on above:Expected: 04/30/2025 (Approximate), Expires: 10/28/2025Start: 18-91-0847Thmxnbvmr vaccinationInfluenza Vaccine [facility] Mercytart: 04-17-2025 End: 24-92-8714MO for pregnancyUS OB follow up transabdominal approach Imaging Routine Size of fetus inconsistent with dates in second trimester ([facility]) Expected: 04/17/2025, Expires: 08/17/2025[facility] Work Phone: comment on above:Expected: 04/17/2025, Expires: 08/17/2025Start: 04-17-2025 End: 90-85-0686Wckdpyk encounter menupayxs62/21/2025 9:50 AM EDT Routine MATTIE VARGAS [address] [place], [id number] Deyanira Martinez PA [address] [place] [address] NOMFerny [place] OBGYNStart: 04-03-2025 End: 58-95-5938wxjmupvask92/07/2025 1:30 PM EDT Support Visit Maternal- Medicine at [facility] [address] [place] [phone] Rimma Richey RN [address] [facility]Sand[facility], [address] [place] [address], [place] [address] Nikky Gonzalez, Consuelo Blanco, [place] [address] [place] [address] [facility]: 04-03-2025 End: 02-28-6330Svoaxor encounter mwrvlqtdu36/07/2025 10:40 AM EDT Routine [facility] BCP OB [address] [place] [phone] Jaspreet Adams, DO [facility] [place] [address] NOMS BCP OBStart: 03-19-2025 End: 19-30-6564Mdbdajrfxsyb / ancillary services /23/2025 9:30 AM EDT Ancillary Procedure [facility] BCP OB [address] [place] [address] NOMS BCP OBStart: 03-05-2025 End: 78-51-0213JXI panel - Blood by Automated countCBC Lab Routine Diabetes mellitus screening Expected: 03/05/2025 (Approximate), Expires: 03/05/2026[facility] HealthcareComment on above:Expected: 03/05/2025 (Approximate), Expires: 03/05/2026Start: 03-05-2025 End: 24-59-1410Sptfxxvreno of glucose 1 hour after glucose challenge for glucose tolerance testGlucose tolerance, 1 hour Lab Routine Diabetes mellitus screening Expected: 03/05/2025 (Approximate), Expires: 03/05/2026[facility] HealthcareComment on above:Expected: 03/05/2025 (Approximate), Expires: 03/05/2026Start: 03-05-2025 End: 40-47-3520Knjtjri encounter mqkjygjob88/09/2025 11:00 AM EDT Routine [facility] BCP OB [address] [place] [phone] Jaspreet Adams, DO [facility] [address] [place], [place] [id number] ArrivedNOMS BCP OBComment on above: ArrivedStart: 02-27-2025 End: 63-20-0242Ngihnxr encounter azerispqw15/03/2025 8:50 AM EDT Routine [facility]CP OB [address] [place] [address] Jaspreet Adams DO [address] [place] [address] NOMS BCP OBStart: 02-12-2025 End: 70-33-0269Vpskehff Kplexlx6102/12/2025 9:00 AM EDT Clinical Support [facility] OB [address] [place] [address] NOMS BCP OB Start: 01-29-2025 End: 80-47-6285Uivxbhx encounter eiyuroyze46/04/2025 10:20 AM EDT Routine NOM[facility] OB [address] [place] [address] Willy Avila, NUCLEAR LICENSING ENGINEER [address] [place] [address] NOMS BCP OBStart: 01-24-2025 End: 11-54-3153UCY/RhABO/Rh Lab Routine Missed menses , unspecified gestational age Expected: 01/24/2025 (Approximate), Expires: 01/24/2026[facility] HealthcareComment on above:Expected: 01/24/2025 (Approximate), Expires: 01/24/2026Start: 01-24-2025 End: 04-01-4034Yuvld fetoprotein, maternalAlpha fetoprotein, maternal Lab Routine Encounter for supervision of normal first in first trimester Expected: 01/24/2025 (Approximate), Expires: 03/26/2025[facility] HealthcareComment on above:Expected: 01/24/2025 (Approximate), Expires: 03/26/2025Start: 01-24-2025 End: 78-59-4222Vbual type and Indirect antibody screen panel - BloodType and screen Lab Routine Missed menses , unspecified gestational age Expected: 01/24/2025 (Approximate), Expires: 01/24/2026[facility] Work Phone: comment on above:Expected: 01/24/2025 (Approximate), Expires: 01/24/2026Start: 01-24-2025 End: 26-32-7891Gexql of abuse panel - Urine by Screen methodRapid drug screen, urine Lab Routine , unspecified gestational age Encounter for supervision of normal first in first trimester Expected: 01/24/2025 (Approximate), Expires: 01/24/2026NO[facility] HealthcareComment on above:Expected: 01/24/2025 (Approximate), Expires: 01/24/2026Start: 01-10-2025 End: 48-03-3698igcmiiybgp37/16/2025 9:30 AM EDT Initial [facility] [address] [facility] [address] [address] [place] [place] [address] TYOS BCP OBStart: 01-10-2025 End: 09-39-9202Kxjdahnbueno / ancillary services ksdqugfbbe96/16/2025 9:00 AM EDT Ancillary Procedure [facility] [address] [place] [address] [facility] OBStart: 20-49-7361Ikfiugee identified in Urine by CultureUrine CultureMercy Health St. Joseph Warren Hospitaltart: 05-62-7108Cwhuq cultureMercy Health St. Joseph Warren Hospitaltart: 62-91-6589Pdekltdgy for malignant neoplasm of cervixPap SmearProMercy Health St. Charles Hospital SystemStart: 25-74-7939TNmF,Tdap and Td Vaccines (1 - Tdap)DTaP,Tdap and Td Vaccines (1 - Tdap)[facility] SystemStart: 75-87-0784Guzre BMI ScreeningAdult BMI ScreeningProMercy Health St. Charles Hospital SystemStart: 72-45-0076Jttctpyasv ScreeningDepression ScreeningProMercy Health St. Charles Hospital SystemStart: 85-04-7005Ernfttr ScreeningTobacco ScreeningUniversity Hospitals [facility] System Bacteria identified in Urine by CultureUrine culture Microbiology Routine Missed menses Ordered: 01/24/2025[facility] HealthcareComment on above:Ordered: 01/24/2025 Bacteria identified in Urine by CultureUrine culture Microbiology Routine Second trimester Ordered: 01/29/2025[facility] Work Phone: comment on above:Ordered: 01/29/2025BC W Auto Differential panel - BloodCBC and differential Lab Routine Missed menses , unspecified gestational age Ordered: 01/24/2025[facility] HealthcareComment on above:Ordered: 01/24/2025ytology Cervical or vaginal smear or scraping studyPap Smear Pathology and Cytology Routine Well woman exam with routine gynecological exam Ordered: 03/05/2025[facility] Work Phone: comment on above:Ordered: 03/05/2025Hemoglobin A1c/Hemoglobin.total in BloodHemoglobin A1c Lab Routine Missed menses , unspecified gestational age Ordered: 01/24/2025[facility] HealthcareComment on above: Ordered: 01/24/2025Hepatitis B virus surface Ag [Presence] in Serum or Plasma by ImmunoassayHepatitis B surface antigen Lab Routine Missed menses , unspecified gestational age Ordered: 01/24/2025[facility] HealthcareComment on above: Ordered: 01/24/2025Hepatitis C virus Ab [Presence] in Serum or Plasma by ImmunoassayHepatitis C antibody Lab Routine Missed menses , unspecified gestational age Ordered: 01/24/2025[facility] HealthcareComment on above:Ordered: 01/24/2025HIV-1/HIV-2 antigen/antibody combination immunoassayHIV-1 and HIV-2 antibodies Lab Routine Missed menses , unspecified gestational age Ordered: 01/24/2025[facility] HealthcareComment on above:Ordered: 01/24/2025Patient EducationHead injury in adults Blunt Abdominal Trauma ED Blunt Chest Trauma ED [facility] Work Phone: Patient referralMer[facility] Health St[facility] Work Phone: Reagin Ab [Presence] in Serum by RPRRPR Lab Routine Missed menses , unspecified gestational age Ordered: 01/24/2025[facility] HealthcareComment on above:Ordered: 01/24/2025Rubella antibody, IgGRubella antibody, IgG Lab Routine Missed menses , unspecified gestational age Ordered: 01/24/2025[facility] HealthcareComment on above:Ordered: 01/24/2025 Immunizations Immunization DateImmunizationNotesCare PhfwmjdnWdxfzydf82-44-1114lkvyvnl toxoid, reduced diphtheria toxoid, and acellular pertussis vaccine, adsorbedPHYSICIAN NO [facility] Payers DatePayer CategoryPayerPolicy [id number] Health InsuranceCAR[facility]OPUSHM[facility]ICA[facility] [id number]-jnk [id number] [id number] [id number] 2..1.704749.3.57[id number] 2.0.1.098241.3.57[id number] 2..1.098230.3.57[id number] 2..1.732180.3.579.2.842304-10-9591Ogidqqq79004441 2..1.719479.3.57[id number] 2.0.1.333168.3.57[id number] 2..1.091532.3.57[id number] 2..1.339098.3.57[id number] 2..1.165043.3.57[id number] 2..1.143728.3.57[id number] 2..1.531846.3.57[id number] 2..1.849335.3.579.[id number] 2..1.947941.3.579.2.693823-08-6880Ktidfyc54907572 2..1.175133.3.579.2.399906-36-5321Hbwbebd8690492 2..1.535267.3.579.2.766525-43-9388Xdlzcwq3513513 2..1.242451.3.579.2.084565-28-4517Ttkuqwv872948785955ZeiiuqsLxbszwe Auto/[id number] 4266x8p0-q421-51q4-666d-6ms68w589j4tBuzceehSEEH/HFA/FAP Tcjurh26n1c507-j146-36kl-[id number] 2..1.119318.3.579.2.531UnknownRegular Auto/Lhxnozssy18-3615050 7ae13r61-524x-348v-a2b8-7a1ls1160359QvgggqkQTFE/HFA/FAP [id number] 99266u73-u113-9u9p-860z-se8w73jrb1iw Social History DateTypeDetailFacilityStart: 08-11-2023 End: 65-88-7959Ftwhpzf smoking status NHISNever smoked tobacco (finding) [facility] Hospitaltart: 34-39-8022Phn Assigned At BirthFeAshtabula County Medical CenterTobasaint [facility] [place] smoking status NHISTobacco smoking consumption unknownMOAB REGIONAL [facility]ITAL HealthcareStart: 68-34-8680Daxwvv identityIdentifies as female gender (finding)[facility] HealthcareStart: 10-24-8019Zqpjxs orientationNot on [facility] Work Phone: Start: 01-07-2025 End: 48-28-2611MlzXujajr (finding)[facility] Hospitaltart: 84-70-0825ZupbhegwmZCIE HealthcareStart: 83-46-4553Mnq assigned at birthNot on [facility] SystemStart: 48-20-5965Ckikgex of Social functionMOAB REGIONAL HOSPITAL Healthcare Work Phone: Start: 91-83-5455QkfGvoafhLFBK Healthcare Medical Equipment Procedure CodeEquipment CodeEquipment Original TextEquipment IdentifierDates1 strip by In Vitro route Daily Use in the morning prior to breakfast, 1 hour after each meal for atotal of 4times daily.[id number]: 03-24-2025 End: each by In Vitro route Daily Use to check FSBS four times daily [id number]: 03-24-2025 End: 04-23-2025 Clinical Notes 12-23-2024 to 06-12-2025 Note Date & [id number] History of Present illness Narrative* Nissa Matt, LORRAINE - 06/12/2025 9:40 AM EDT Reason for Appointment: Patient ID: Chente Gonzalez is a 29 y.o. female who presents for Routine Visit Patient presents today for Return OB appointment. MEDICATIONS Current Outpatient Medications Medication Instructions Alcohol Swabs (Alcohol Prep Pad) 70 % pads 1 Pad, Topical, Daily, Use four times daily to check FSBS. Blood Glucose Monitoring Suppl (DataPop Glucometer) w/Device kit 1 kit, Does not [...] nursing note reviewed. Exam conducted with a wildlife control agent present. Vitals: Estimated body mass index is 37.61 kg/m as calculated from the following: Height as of 4/6/21: 5' 5 . Weight as of this encounter: 226 lb. BP: 128/72 Patient's last menstrual period was 10/04/2024 (approximate). ASSESSMENT & PLAN ICD-10-CM 1. Third trimester ([facility]) Z34.93 POCT urinalysis dipstick manually resulted 2. 37 weeks gestation of ([facility]) Z3A.37 Patient presents today for a [...] surgical history on file. [facility]Miss[facility]-[id number] History of Present illness Narrative* Willy Avila NP - 06/02/2025 11:20 AM EDT Reason for [...] nursing note reviewed. Exam conducted with a wildlife control agent present. Vitals: Estimated body mass index is 37.28 kg/m as calculated from the following: Height as of 12/01/20: 5' 5 . Weight as of this encounter: 224 lb. BP: 126/80 Patient's last menstrual period was 10/04/2024 (approximate). ASSESSMENT & PLAN ICD-10-CM 1. 35 weeks gestation of ([facility]) Z3A.35 POCT urinalysis dipstick manually resulted 2. Third trimester ([facility]) Z34.93 CULTURE, GROUP B STREP WITH [...] of: Willy Avila NP documented in this encounterMissouri Baptist Hospital-[id number] History of Present illness Narrative* SENDY Fan - 05/15/2025 9:50 AM EDT Reason for Appointment: Patient ID: Chente Gonzalez is a 29 y.o. female who presents for No chief complaint on file. Patient presents today for Return OB appointment. MEDICATIONS Current Outpatient Medications Medication Instructions Alcohol Swabs (Alcohol Prep Pad) 70 % pads 1 Pad, Topical, Daily, Use four times daily to check FSBS. Blood Glucose Monitoring Suppl ([employer] Glucometer) w/Device kit 1 kit, Does not [...] PLAN ICD-10-CM 1. 33 weeks gestation of ([facility]) Z3A.33 POCT urinalysis dipstick manually resulted 2. Third trimester ([facility]) Z34.93 POCT urinalysis dipstick manually resulted 3. Gestational diabetes mellitus (GDM), antepartum, gestational diabetes method of control unspecified ([facility]) O24.419 Return OB: Patient presents today [...] behalf of: SENDY Fan documented in this encounterMissouri Baptist Hospital-[id number] History of Present illness Narrative* Rahel Pendleton LPN - 04/30/2025 3:00 PM EDT Reason for Appointment: Patient ID: Chente Gonzalez is a 29 y.o. female who presents for Routine Visit Patient presents today for Return OB appointment. MEDICATIONS Current Outpatient Medications Medication Instructions Alcohol Swabs (Alcohol Prep Pad) 70 % pads 1 Pad, Topical, Daily, Use four times daily to check FSBS. Blood Glucose Monitoring Suppl ([employer] Glucometer) w/Device kit 1 kit, Does not [...] nursing note reviewed. Exam conducted with a wildlife control agent present. Vitals: Estimated body mass index is 35.01 kg/m as calculated from the following: Height as of 12/01/20: 5' 5 . Weight as of this encounter: 210 lb 6.4 oz. BP: 120/70 Patient's last menstrual period was 10/04/2024 (approximate). ASSESSMENT & PLAN ICD-10-CM 1. 31 weeks gestation of ([facility]) Z3A.31 POCT urinalysis dipstick manually resulted 2. Third trimester ([facility]) Z34.93 POCT urinalysis dipstick manually resulted 3. Gestational diabetes mellitus (GDM), antepartum, gestational diabetes method of control unspecified ([facility]) O24.419 US biophysical profile w non [...] of: Jaspreet Adams DO documented in this encounterMissouri Baptist Hospital-[id number] History of Present illness Narrative* SENDY Fan - 04/17/2025 9:50 AM EDT Reason for Appointment: Patient [...] ASSESSMENT & PLAN ICD-10-CM 1. Third trimester ([facility]) Z34.93 POCT urinalysis dipstick manually resulted 2. 29 weeks gestation of ([facility]) Z3A.29 POCT urinalysis dipstick manually resulted [...] behalf of: SENDY Fan documented in this encounterMissouri Baptist Hospital-[id number] History of Present illness Narrative* Nissa Matt, LORRAINE - 04/03/2025 10:40 AM EDT Reason for Appointment: Patient ID: [...] nursing note reviewed. Exam conducted with a wildlife control agent present. Vitals: Estimated body mass index is 33.35 kg/m as calculated from the following: Height as of 12/01/20: 5' 5 . Weight as of this encounter: 200 lb 6.4 oz. BP: 130/72 Patient's last menstrual period was 10/04/2024 (approximate). ASSESSMENT & PLAN ICD-10-CM 1. Second trimester ([facility]) Z34.92 Urine dip 2. 27 weeks gestation of ([facility]) Z3A.27 Urine dip Patient presents today for a routine obstetrics appointment. Patient is currently 27w2d with a Estimated Date of Delivery: 07/01/25. Patient brought in FSBS logs for review and patient still desires to hold off on [facility] referral at this time, referral was previously sent on 03/24/25 and when c ontacted by [facility] patient will inform them that she will postpone scheduling at this time. Patient toreturn to clinic in 2 weeks for routine OB appointment. Documented by Nissa Matt LPN on behalf of: Jaspreet Adams DO documented in this encounterMissouri Baptist Hospital-[id number] History of Present illness Narrative* Rahel Pendleton LPN - 03/05/2025 11:00 AM [...] nursing note reviewed. Exam conducted with a wildlife control agent present. Vitals: Estimated body mass index is 31.62 kg/m as calculated from the following: Height as of 12/01/20: 5' 5 . Weight as of this encounter: 190 lb. BP: 128/78 Patient's last menstrual period was 10/04/2024 (approximate). ASSESSMENT & PLAN ICD-10-CM 1. Second trimester ([facility]) Z34.92 POCT urinalysis dipstick manually resulted 2. 23 weeks gestation of ([facility]) Z3A.23 3. Diabetes mellitus screening Z13.1 CBC Glucose tolerance, 1 hour CBC Glucose tolerance, 1 hour 4. Well woman exam with routine gynecological exam Z01.419 Pap Smear Return OB/Annual Exam: Patient presents today for a annual exam/routine obstetrics appointment. Patient is currently [id number]. Patient states she is doing well but [...] of: Jaspreet Adams DO documented in this encounterMissouri Baptist Hospital-[id number] History of Present illness Narrative* Willy Avila NP - 01/29/2025 10:20 AM EDT [...] nursing note reviewed. Exam conducted with a wildlife control agent present. Vitals: Estimated body mass index is [...] of: Willy Avila NP documented in this encounterMissouri Baptist Hospital-[id number] History of Present illness Narrative* Kalyn Jacob MA - 01/24/2025 11:00 AM [...] or undercooked meat, and [facility] from [facility]. Patient has also been advised to not [...] by: Kalyn Jacob MA documented in this encounterMissouri Baptist Hospital-[id number] History of Present illness Narrative* Nissa Matt LPN - 12/23/2024 1:30 PM EDT Reason for Appointment: Patient ID: Chente [...] nursing note reviewed. Exam conducted with a wildlife control agent present. Vitals: Estimated body mass index is [...] ultrasound. Patient given proof of to turn infor Medicaid Insurance. Documented by Nissa Matt LPN on behalf of: Jaspreet Adams DO documented in this encounterNOMS HealthcareEvaluation noteNo assessment information availableMercy Health St. [facility] Work Phone: Evaluation note* Diagnosis Hyperemesis gravidarum Mild hyperemesis gravidarum, unspecified [...] (GDM), antepartum, gestational diabetes method of control unspecified([facility]) documented in this encounter [facility] HealthcareEvaluation note* Diagnosis 33 weeks gestation of ([facility]) Third trimester ([facility]) state, incidental Gestational diabetes mellitus (GDM), antepartum, gestational diabetes method of control unspecified([facility]) documented in this encounter [facility] HealthcareEvaluation note* Diagnosis 35 weeks gestation of ([facility]) Third trimester ([facility]) state, incidental documented in this encounter [facility] HealthcareEvaluation note* Diagnosis Third trimester ([facility]) state, incidental 37 weeks gestation of ([facility]) documented in this encounter [facility] HealthcareInstructionsNot on filedocumented in this encounterPremier Health [facility] Summary Purpose Family History No Family History Records Found Relationship Condition Age at Onset Recorded Date/T alicia brother Polycystic kidney disease Unknown fatherPolycystic kidney diseaseUnknown Advance Directives No Advanced Directives Records Found [...] section and content) DATE CREATED AUTHOR 06/25/2019 [facility] DATE CREATED AUTHOR AUTHOR'S ORGANIZ ATION 06/07/2022 [facility] DATE CREATED AUTHOR AUTHOR'S ORGANIZ ATION 01/09/2025 [facility] DATE CREATED AUTHOR AUTHOR'S ORGANIZ ATION 06/14/2025 [facility] EPIC Care Teams (unrecognized sec tion and content) Team Status: Active Member Role Status Dates PHYSICIAN NO FAMILY Primary Care Provider Active Team Status: Inactive Member Role Status Dates PHYSICIAN NO FAMILY Primary Care Provider Active Michelle Douglass ProviderActive Team Status: Inactive Member Role Status Dates DO Sanchez Bran Provider Active Start: January 06, 2025 End: January 06, 2025 Goals (unrecognized section and content) Goals may be documented in a n alternate sectionGoals may be documented in an alternate sectionNot on filedocumented as of this encounter Reason for Visit (unrecogniz ed section and content) ReasonCommentsFollow-upReasonCommentsAmenorrheaReasonCommentsRoutine VisitReasonCommentsRoutine Kewop59g 6d FOR RECORDS PERTAINING TO PATIENTS WHO [...] BE BASED ON THE PRIMARY CLINICAL RECORDS. [facility]. provides no warranty or guarantee of the accuracy or completeness of information in this document.
[2025-06-19 11:19] VITALS: BP 131/88; PULSE 86
== END 2025-06-19 12:10 | disposition home or self-care (01) ==
LOC: FBCO 11:10 → FBC 11:11
PROVIDERS: Visit Provider Obstetrics & Gynecology
DX: O99.283 Endocrine, nutritional and metabolic diseases complicating pregnancy, third trimester (principal)
CPT/HCPCS: 59025

== ENCOUNTER 2025-06-23 10:00 | Outpatient (OUT) | payer OTHER, SELFPAY ==
--- NOTE | 2025-06-23 10:02 | US_ITS ---
The [address] [address] Patient Name: JORGE ALBERTO LUNA MRN: [id number] date: 1995 Sex: F Assigned Patient Location: Current Patient Location: [place] Accession/Order Number: [id number] Exam Date: 06/23/2025 10:03 Report Date: 06/23/2025 10:45 At the request of: TYRELL THAPA DO Procedure: US OB BPP w non-stress BIOPHYSICAL PROFILE: CLINICAL INFORMATION: Gestational diabetes mellitus COMPARISON: 06/16/2025 There is a single live intrauterine gestation in cephalic presentation. The reported gestational age is 38 weeks 6 days. The heart rate [id number] beats per minute. FINDINGS: TONE: 1 or more episodes of activity extension and flexion of extremity or opening and closing of the hand [Y] 2/2 GROSS BODY MOVEMENTS: 3 or more discrete body or limb movements [Y] 2/2 BREATHING MOVEMENTS: 1 or more episodes of breathing lasting at least 30 seconds [Y] 2/2 DOYLE: A single deepest vertical pocket of amniotic fluid greater than 2 cm [Y] 2/2 DOYLE: 7.0 cm . The 5th percentile 7.2 cm. Total score: 8/8 US/ OB BPP w non-stress IMPRESSION: NORMAL BIOPHYSICAL PROFILE. BORDERLINE OLIGOHYDRAMNIOS. Impression dictated by: Rahel Mae M.D. 06/23/2025 10:45 AM Dictation Location: [place] [address] Electronically authenticated by: [id number] Y Date: 06/23/2025 10:45
[2025-06-23 10:20] VITALS: BP 143/74; PULSE 82
--- OUTSIDE RECORDS SUMMARY | 2025-06-23 10:28 | XMS_ITS | CCD ---
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 mg/dLNOMS Healthcare Leukocytes, UANegativeNegative - 500+++ Julio/mcLNOMS HealthcareNitrite, UA NegativeNegative - PositiveNOMS HealthcarepH, UA65 - 9NOMS HealthcareProtein, UA PositiveNegative - 2000(20) ++++ mg/dLNOMS HealthcareComment on above:2+Spec Grav, UA1.021 - 1.03NOMS HealthcareUrobilinogen, UA1.00.2 - 12 mg/dLNOMS HealthcareNOMS HealthcareUS OB FOLLOW UP TRANSABDOMINAL APPROACHon 72-93-2272XP OB FOLLOW UP TRANSABDOMINAL APPROACHA single, live [...] Delivery: 07/01/25 Gestational Age as of 04/17/2025: 66x3vRkpwoudsil macro (dipstick) panel (U)on 84-86-1208Seatrxwau, UANegativeNegative - 4(70) +++ mg/dLNOMS HealthcareBlood, UAPositiveNegative - 50 Derick/mcLNOMS HealthcareComment on above:1+Clarity, UA ClearNOMS HealthcareColor, UAYellowNOMS HealthcareGlucose, UANegativeNegative - 2000(110) ++++ mg/dLNOMS HealthcareInterpretation and review of laboratory resultsAbnormalNOMS HealthcareKetones, UANegativeNegative - 160(16) ++++ mg/dL NOMS HealthcareLeukocytes, UANegativeNegative - 500+++ Julio/mcLNOMS Healthcare Nitrite, UANegativeNegative - PositiveNOMS HealthcarepH, UA65 - 9NOMS Healthcare Protein, UAPositiveNegative - 2000(20) ++++ mg/dLNOMS HealthcareSpec Grav, UA 1.011 - 1.03NOMS HealthcareUrobilinogen, UA1.00.2 - 12 mg/dLNOMS HealthcareNOMS HealthcareUrinalysis macro (dipstick) panel (U)on 86-24-0201Ojwseegjh, UA NegativeNegative - 4(70) +++ mg/dLNOMS HealthcareBlood, UAPositiveNegative - 50 Derick/mcLNOMS HealthcareClarity, UAClearNOMS HealthcareColor, UAYellowNOMS HealthcareGlucose, UANegativeNegative - 2000(110) ++++ mg/dLNOMS Healthcare Interpretation and review of laboratory resultsAbnormalNOMS HealthcareKetones, UANegativeNegative - 160(16) ++++ mg/dLNOMS HealthcareLeukocytes, UAPositive Negative - 500+++ Julio/mcLNOMS HealthcareNitrite, UANegativeNegative - Positive NOMS HealthcarepH, UA65 - 9NOMS HealthcareProtein, UANegativeNegative - 2000(20) ++++ mg/dLNOMS HealthcareSpec Grav, UA1.0151 - 1.03NOMS HealthcareUrobilinogen, UA1.00.2 - 12 mg/dLNOMS HealthcareNOMS HealthcareUrinalysis macro (dipstick) panel (U)on 87-14-6305Txcbbbmiu, UANegativeNegative - 4(70) +++ mg/dLNOMS HealthcareBlood, UAPositiveNegative - 50 Derick/mcLNOMS HealthcareClarity, UAClear NOMS HealthcareColor, UAYellowNOMS HealthcareGlucose, UANegativeNegative - 2000(110) ++++ mg/dLNOMS HealthcareInterpretation and review of laboratory resultsAbnormalNOMS HealthcareKetones, UANegativeNegative - 160(16) ++++ mg/dL NOMS HealthcareLeukocytes, UANegativeNegative - 500+++ Julio/mcLNOMS Healthcare Nitrite, UANegativeNegative - PositiveNOMS HealthcarepH, UA6.55 - 9NOMS HealthcareProtein, UANegativeNegative - 2000(20) ++++ mg/dLNOMS HealthcareSpec Grav, UA1.0151 - 1.03NOMS HealthcareUrobilinogen, UA1.00.2 - 12 mg/dLNOMS HealthcareNOMS HealthcareGLUCOSE TOLERANCE 3 HOURon 66-63-4050CKNJCGW TOLERANCE 3 HOURHighmg/dLNOMS HealthcareComment on above:GLU FAST 86 (<95) Col: 07/25/25 0856 GLU 1HR 181H (<180) Col: 03/21/25 1002 GLU 2HR 162H (<155) Col: 03/21/25 1102 GLU 3HR 75 (<140) Col: 03/21/25 1202 Interpretation and review of laboratory resultsAbnoalSheltering Arms Hospital HealthcareUS OB LIMITED 1+ FETUSESon 82-85-1124SK OB LIMITED 1+ FETUSES EXAM: US OB [...] II, MD, PHD at 21-Mar-2025 08:31:03 AM [facility] TeleradiologyNormalNot AvailableComment on above:Order Comment: US OB INCOMPLETE ANATOMY Estimated Date of Delivery: 07/01/25 Gestational Age as of 02/24/2025: 50s2rLAE,APTIMA HPV,AGE GDLNon 19-54-6574MKR GDLN ACOG TESTINGNote.[facility] HealthcareComment on above:TESTS RESULT FLAG UNITS REF RANGE LAB Clinician Provided Cytology Information Source.............[employer] Other.............. No. of containers..01 ThinPrep Vial Age Kristyo LIANET Mandie... -25 09 FLAG LEGEND: L-Low Normal,H-High Normal,LL-Alert Low,HH-Alert High <-Panic Low,>-Panic High,A-Abnormal,AA-Critical Abnormal Performed at: 01 =G [facility] [place] [address] Mckenna Polanco MD, IGP, RFX APTIMA HPV ASCUNote.[facility] HealthcareComment on above:TESTS RESULT FLAG UNITS REF RANGE LAB DIAGNOSIS: 02 NEGATIVE FOR INTRAEPITHELIAL LESION OR MALIGNANCY. Specimen adequacy: 02 Satisfactory for evaluation. No endocervical component is identified. Performed by: Andres Pineda, [place] Representative ([facility]) . 02 Note: Note 02 [...] <-Panic Low,>-Panic High,A-Abnormal,AA-Critical Abnormal Performed at: [address] [address] Mckenna Polanco MD, Performed at: =G - [facility] [address] [id number] Hand Fur Cleaner: Mckenna Polanco MD, Phone: [phone] Performed at: - [facility] [id number] Hand Fur Cleaner: Mckenna Polanco MD, Phone: [phone] [facility] ENDOCERVIX CLINISYNCNOCA HealthcareGLUCOSE 1 HOURon 73-21-4837Jouwham [Mass/Vol]141 mg/dL HighNINF - 130 mg/dLNOCA HealthcareInterpretation and review of laboratory resultsAbnormalUTAH STATE HOSPITAL HealthcareCLINISYNCGlucose tolerance, 1 houron 03-06-2025 Glucose Tolerance Test 1 Glde301AhqPjkmop Health SystemNo Panel Informationon 06-26-6303JQWN HealthcareUrinalysis macro (dipstick) panel (U)on 03-05-2025 Bilirubin, UANegativeNegative - 4(70) +++ mg/dLNOCA HealthcareBlood, UANegative Negative - 50 Derick/mcLNOCA HealthcareClarity, UAClearNOMS HealthcareColor, UA YellowNOMS HealthcareGlucose, UANegativeNegative - 2000(110) ++++ mg/dLNOCA HealthcareInterpretation and review of laboratory resultsNormalSSM Health [facility] Ketones, UANegativeNegative - 160(16) ++++ mg/dLNOCA HealthcareLeukocytes, UA NegativeNegative - 500+++ Julio/mcLNOMS HealthcareNitrite, UANegativeNegative - PositiveNOMS HealthcarepH, UA65 - 9NOMS HealthcareProtein, UANegativeNegative - 2000(20) ++++ mg/dLNOMS HealthcareSpec Grav, UA1.011 - 1.03NOCA Healthcare Urobilinogen, UA0.20.2 - 12 mg/dLNovant Health New Hanover Regional Medical CenterUS OB 14+ WEEKS ANATOMY SCANon 85-49-2254NL OB 14+ WEEKS ANATOMY SCANEXAM: US OB [...] II, MD, PHD at 20-Feb-2025 09:47:05 AM [facility] TeleradiologyNormalNot AvailableComment on above:Order Comment: US OB ANATOMY SINGLE W US OB CERVICAL LENGTH Estimated Date of Delivery: 07/01/25 Gestational Age as of 02/12/2025: 27h8rFCN surface Ag IA Qlon 50-55-1394Cdvlbpjqs B Surface AntigenNegativeProMedica Health SystemProMedica Health SystemBOX TEST on 60-49-0328TUU TEST SENT OUTUNITY BOXNOCA SlifojcdihUSR6WQFCXEVVM Healthcare BOX26/02/19NOCA HealthcareUNITY BOX CLINISYNCDrug Screen, Urineon 22-91-3816Xixnbfpzaqa/MethamphetamineNegative [facility] Health SystemBarbituratesNegativeProMedica Health System BenzodiazepinesNegativeProMedica Health SystemCocaine MetaboliteNegative [facility] SystemEcstasyNegativeProMedica Health SystemMethadoneNegative [facility] SystemOpiatesNegativeSpringfield HospitalMedica Health SystemOxycodoneNegative [facility] SystemPhencyclidineNegativeProMedica Health SystemThc Marijuana, UrinePositiveProMedica Health SystemHIV 1+2 Ab+HIV1 p24 Ag IA Qlon 54-51-9122DBZ 1&2 AB/AGNon-ReactiveACMC Healthcare Systemca [facility] SystemHemoglobin A1con 85-81-8417QlI5b (Bld) [Mass fraction]4.9 %4.0 - 6.0 %[facility] Hospitaledica Health SystemNo Panel Informationon 28-29-6845ZXIW HealthcareRubella IGG immune statuson 64-06-4102Qcrbfsj immune IgG7.29ProFayette Medical Center Health SystemType and screenon 26-35-2081Ssg/Rh(D)NegativeProGuernsey Memorial Hospital SystemNo Panel Informationon 07-88-3365LNJHDFZDGYILPR EPIDERMIDIS, HAEMOLYTICUS, LUGDUNENSIS, SAPROPHYTICUS (CESTC4JVQF HealthcareSTAPHYLOCOCCUS EPIDERMIDIS, HAEMOLYTICUS, LUGDUNENSIS, SAPROPHYTICUS (URINANot detectedNOMS HealthcareURINARY TRACT INFECTION (HTRX)on 01-40-9469GGHHASJIYEOZV PBQAWSQL5RHDY HealthcareACINETOBACTER BAUMANIINot detectedNOMS HealthcareCANDIDA ALBICANS, PARAPSILOSIS, JFKAWDBEJT2HKFC HealthcareCANDIDA ALBICANS, PARAPSILOSIS, TROPICALISNot detectedNOMS Healthcare MAYNOR IZMMKUHC7MAYI HealthcareCANDIDA GLABRATANot detectedNOMS Healthcare MAYNOR QNYYRY3ICGU HealthcareCANDIDA KRUSEINot detectedNOMS Healthcare CITROBACTER USEEWJJB1NUQE HealthcareCITROBACTER FREUNDIINot detectedNOMS HealthcareENTEROBACTER AEROGENES, HCQSHFN6ZIZM HealthcareENTEROBACTER AEROGENES, CLOACAENot detectedNOMS HealthcareENTEROCOCCUS FAECALIS, FJAKTGE7RLAZ Healthcare ENTEROCOCCUS FAECALIS, FAECIUMNot detectedNOMS HealthcareESCHERICHIA AZDU6SJZM HealthcareESCHERICHIA COLINot detectedNOMS HealthcareKLEBSIELLA PNEUMONIAE, YXQEGHB7VHTS HealthcareKLEBSIELLA PNEUMONIAE, OXYTOCANot detectedNOMS Healthcare MORGANELLA QRXXSJMD0YTXL HealthcareMORGANELLA MORGANIINot detectedNOMS HealthcarePROTEUS MIRABILIS, BPCFCQUS8CHZR HealthcarePROTEUS MIRABILIS, VULGARIS Not detectedNOMS HealthcarePSEUDOMONAS NTHMSZEWVC5RTOF HealthcarePSEUDOMONAS AERUGINOSANot detectedNOMS HealthcareSERRATIA VXUJWKGKUJ7PMBO HealthcareSERRATIA MARCESCENSNot detectedNOMS HealthcareSTAPHYLOCOCCUS RQRHOK7WGAU Healthcare STAPHYLOCOCCUS AUREUSNot detectedNOMS HealthcareSTREPTOCOCCUS AGALACTIAE (GROUP B STREP)0NOMS HealthcareSTREPTOCOCCUS AGALACTIAE (GROUP B STREP)Not detectedNOMS HealthcareSTREPTOCOCCUS PYOGENES (GROUP A STREP)0NOMS HealthcareSTREPTOCOCCUS PYOGENES (GROUP A STREP)Not detectedNOMS HealthcareNOMS HealthcareUrinalysis macro (dipstick) panel (U)on 03-94-1074Fwjshkodv, UANegativeNegative - 4(70) +++ mg/dLNOMS HealthcareBlood, UAPositiveNegative - 50 Derick/mcLNOMS HealthcareComment on above:Trace-intactClarity, UAClearNOMS HealthcareColor, UAYellowNOMS HealthcareGlucose, UANegativeNegative - 2000(110) ++++ mg/dLNOMS Healthcare Interpretation and review of laboratory resultsAbnormalNOMS HealthcareKetones, UANegativeNegative - 160(16) ++++ mg/dLNOMS HealthcareLeukocytes, UANegative Negative - 500+++ Julio/mcLNOMS HealthcareNitrite, UANegativeNegative - Positive NOMS HealthcarepH, UA75 - 9NOMS HealthcareProtein, UATraceNegative - 1999(20) ++++ mg/dLNOMS HealthcareSpec Grav, UA1.021 - 1.03NOMS HealthcareUrobilinogen, UA1.00.2 - 12 mg/dLNOMS HealthcareNOMS HealthcareHCG ( test) Ql (U)on 17-04-6842Kxanwdugqljnta and review of laboratory resultsAbnormalNOMS Healthcare Preg Test, UrPositiveNegativeNOMS HealthcareNOMS HealthcareUS OB LIMITED 1+ FETUSESon 91-54-5327VV OB LIMITED 1+ FETUSESEXAM: US OB LIMITED [...] at 27-Jan-2025 10:23:04 AM [facility] TeleradiologyNormalNot AvailableComment on above:Order Comment: US OB TRANSVAGINAL No LMP recorded.Urinalysis macro (dipstick) panel (U)on 30-26-1585Lijvpvmnv, UA NegativeNegative - 4(70) +++ mg/dLNOMS HealthcareBlood, UAPositiveNegative - 50 Derick/mcLNOMS HealthcareComment on above:Trace-IntactClarity, UAClearNOMS HealthcareColor, UAYellowNOMS HealthcareGlucose, UANegativeNegative - 1999(110) ++++ mg/dLNOCA HealthcareInterpretation and review of laboratory resultsAbnormal NOMS HealthcareKetones, UANegativeNegative - 160(16) ++++ mg/dLUTAH [facility] Healthcare Leukocytes, UANegativeNegative - 500+++ Julio/mcLNOCA HealthcareNitrite, UA NegativeNegative - PositiveNOMS HealthcarepH, UA75 - 9NOCA HealthcareProtein, UA NegativeNegative - 2000(20) ++++ mg/dLNOCA HealthcareSpec Grav, UA1.021 - 1.03 NOMS HealthcareUrobilinogen, UA0.20.2 - 12 mg/dLNOKindred HospitalNOCA Healthcare Urine Cultureon 59-78-6899Biufrkxd identified Cx Nom (U)No Growth 2 Days PERFORMED BY: [place] [address] PATHOLOGIST FLAT SURFACER RAHUL HOLCOMB M.D.[facility] Physician GroupComment on above: Performed By: #### CUU #### [address] Carter StreetAmphetamine Screen Ql (U)Ordered By: Denny Azevedo on 06-21-0648Dqpsyapwdtan Ql (U)NegativeNegativeSelect Medical Specialty Hospital - [facility] Amylase [Enzymatic activity/volume] in Serum or PlasmaOrdered By: Denny Azevedo on 48-53-5047Xkaiwfg [Catalytic activity/Vol]32 U/P32-589XwdofsjzvSelect Medical Specialty Hospital - ColumbusAspartate aminotransferase [Enzymatic activity/volume] in Serum or PlasmaOrdered By: Denny Azevedo on 73-32-2985XKV [Catalytic activity/Vol]24 U/L 13-39[facility] ColumbusAutomated erythrocytes count in urine sediment (number/area)Ordered By: Denny Azevedo on 28-25-4996XFC Auto (Urine sed) [#/Area]10-19 [HPF]0-4FMary Rutan HospitalAutomated leukocytes count in urine sediment (number/area)Ordered By: Denny Azevedo on 13-82-4598JDG Auto (Urine sed) [#/Area]3-4 [HPF]0-4FMary Rutan Hospital Barbiturates [Presence] in Urine by Screen methodOrdered By: Denny Azevedo on 47-11-6038Wppdgqqhbeum Screen Ql (U)NegativeNegativeSelect Medical Specialty Hospital - ColumbusBasophils Auto (Bld) [#/Vol]Ordered By: Denny Azevedo on 08-11-2023 Basophils (Bld) [#/Vol]0.1 10*3/uL0.0-0.2FMary Rutan Hospital Basophils/100 WBC Auto (Bld)Ordered By: Denny Azevedo on 01-55-1620Jkqxywrmg/100 WBC (Bld)0.9 %.[facility] - ColumbusBenzodiazepines Screen Ql (U) Ordered By: Denny Azevedo on 38-84-6500Mfnghtuvyelnztk Ql (U)NegativeNegative [facility] ColumbusBenzoylecgonine [Presence] in Urine by Screen methodOrdered By: Denny Azevedo on 98-84-4545Wkxewudtuhbosma Screen Ql (U) NegativeNegPaulding County HospitalBilirubin Test strip Ql (U) Ordered By: Denny Azevedo on 73-91-2032Helhbqppa Ql (U)NegativeNegPaulding County HospitalCannabinoids [Presence] in Urine by Screen methodOrdered By: Denny Azevedo on 78-79-1595Rklwdzptopej Screen Ql (U)PositiveNegative [facility] ColumbusComment on above:These are unconfirmed results and should not be used for legal purposes. Drug Cut-Off Concentration: AMPH 1000 ng/mL THOMAS 200 ng/mL ARTHUR 200 ng/mL COCM 300 ng/mL OP 300 ng/mL PCP 25 ng/mL THC 20 ng/mLCarbon dioxide, total [Moles/volume] in Serum or PlasmaOrdered By: Denny Azevedo on 14-97-6763PO4 [Moles/Vol]17.8 mmol/L21.0-31.0[facility] ColumbusChloride [Moles/volume] in Serum or PlasmaOrdered By: Denny Azevedo 54-62-1542Qbnxdmzf [Moles/Vol]108 mmol/Q70-866IbxpomasySelect Medical Specialty Hospital - ColumbusColor Auto (U)Ordered By: Denny Azevedo on 00-46-6715Aoavp (U) YellowYellowSelect Medical Specialty Hospital - ColumbusCreatine kinase [Enzymatic activity/volume] in Serum or PlasmaOrdered By: Denny Azevedo on 81-30-8838MF [Catalytic activity/Vol]225 U/K90-315JrfrqbiidSelect Medical Specialty Hospital - ColumbusCreatinine [Mass/volume] in Serum or PlasmaOrdered By: Denny Azevedo on 08-11-2023 Creatinine [Mass/Vol]0.68 mg/dL0.60-1.20[facility] Eosinophils Auto (Bld) [#/Vol]Ordered By: Denny Azevedo on 10-58-5428Kaykixsnjlm (Bld) [#/Vol]0.1 10*3/uL0.0-0.45[facility] Eosinophils/100 WBC Auto (Bld)Ordered By: Denny Azevedo on 08-11-2023 Eosinophils/100 WBC (Bld)1.3 %.[facility] ColumbusErythrocyte distribution width Auto (RBC) [Ratio]Ordered By: Denny Azevedo on 08-11-2023 Erythrocyte distribution width (RBC) [Ratio]12.9 %11.9-15.3FMary Rutan HospitalEthanol [Mass/volume] in Serum or PlasmaOrdered By: Denny Azevedo on 05-29-8582Edtwrmw [Mass/Vol]mg/dLSelect Medical Specialty Hospital - ColumbusEthanol [Mass/Vol]TNPSelect Medical Specialty Hospital - ColumbusComment on above:Test not performedGlucose [Mass/volume] in Serum or PlasmaOrdered By: Denny Azevedo on 92-84-1088Ujgisto [Mass/Vol]109 mg/bK22-484RhxenjlymSelect Medical Specialty Hospital - Columbus Comment on above:ADA recommended reference rangeRandom Glucose Reference Range is dependent on time and content of last meal. Glucose of more than 200 mg/dL in a nonstressed, ambulatory subject supports the diagnosisof Diabetes Mellitus. HCG ( test) IA.rapid Ql (U)Ordered By: Denny Azevedo on 29-50-1205OAY ( test) Ql (U)NegativeSelect Medical Specialty Hospital - ColumbusHematocrit Auto (Bld) [Volume fraction]Ordered By: Denny Azevedo on 14-18-0647Ndxfhgfunu (Bld) [Volume fraction]40.4 %34.0-46.4FMary Rutan HospitalHemoglobin [Mass/volume] in BloodOrdered By: Denny Azevedo on 90-74-2914Hqqqymmzdj (Bld) [Mass/Vol]14.2 g/dL11.8-15.4FMary Rutan HospitalINR in Platelet poor plasma by Coagulation assayOrdered By: Denny Azevedo on 10-02-0505OZT Coag (PPP) [Relative time]1.0 {INR}[facility] - ColumbusComment on above: INR Therapeutic Range A) Pre- [...] By: Denny Azevedo on 08-11-2023 Ketones (U) [Mass/Vol]TraceNegativeSelect Medical Specialty Hospital - ColumbusLaboratory - UrinalysisOrdered By: Denny Azevedo on 18-68-4275Knfutmo casts LM Ql (Urine sed)0-8 [LPF]0-8[facility] - ColumbusLeukocytes [#/volume] corrected for nucleated erythrocytes in Blood by Automated counOrdered By: Denny Azevedo on 15-64-6658TMO corrected for nucl RBC Auto (Bld) [#/Vol]7.9 10*3/uL3.8-11.6 [facility] ColumbusLipase [Enzymatic activity/volume] in Serum or PlasmaOrdered By: Denny Azevedo on 22-58-5420Pdujqn [Catalytic activity/Vol]13.0 U/L11.0-82.0[facility] - ColumbusLymphocytes Auto (Bld) [#/Vol] Ordered By: Denny Azevedo on 91-13-9777Oulvyjxukjj (Bld) [#/Vol]1.8 10*3/uL 1.00-4.8[facility] ColumbusLymphocytes/100 WBC Auto (Bld)Ordered By: Denny Azevedo on 20-22-8420Vqnyqbtdzxi/100 WBC (Bld)23.1 %.[facility] - ColumbusMCH Auto (RBC) [Entitic mass]Ordered By: Denny Azevedo on 88-48-5244JWG (RBC) [Entitic mass]30.4 pg24.7-34.3FMary Rutan HospitalMCHC Auto (RBC) [Mass/Vol]Ordered By: Denny Azevedo on 71-55-9761TJPC (RBC) [Mass/Vol]35.1 g/dL32.0-35.0[facility] ColumbusMCV Auto (RBC) [Entitic vol]Ordered By: Denny Azevedo on 90-38-0438CFA (RBC) [Entitic vol]86.7 pC88-524NfxtguwvmSelect Medical Specialty Hospital - ColumbusMonocyte distribution width [Entitic volume] in Blood by AutomatedOrdered By: Denny Azevedo on 08-11-2023 Monocyte distribution width Auto (Bld) [Entitic vol]17.99 %0.00-20.00[facility] - ColumbusMonocytes Auto (Bld) [#/Vol]Ordered By: Denny Azevedo on 83-46-5952Arnlwkvja (Bld) [#/Vol]0.5 10*3/uL0.0-0.8[facility] ColumbusMonocytes/100 WBC Auto (Bld)Ordered By: Denny Azevedo on 08-11-2023 Monocytes/100 WBC (Bld)6.9 %.[facility] - ColumbusNeutrophils Auto (Bld) [#/Vol]Ordered By: Denny Azevedo on 95-90-2396Oeeohbzhleq (Bld) [#/Vol]5.4 10*3/uL1.8-7.7FMary Rutan HospitalNeutrophils/100 WBC Auto (Bld) Ordered By: Denny Azevedo on 00-92-6614Zephnsncjzm/100 WBC (Bld)67.8 %.[facility] - ColumbusNitrite Test strip Ql (U)Ordered By: Denny Azevedo on 63-43-9711Rfpjcmb Ql (U)NegativeNegativeSelect Medical Specialty Hospital - ColumbusNo Panel InformationOrdered By: Denny Azevedo on 78-22-2712Ewutcgvfn GFR (CKD-EPI)> 60.0 mL/MinSelect Medical Specialty Hospital - ColumbusPharmacy Creatinine Clearance (Chem 138.27[facility] ColumbusNucleated erythrocytes [Presence] in Blood by Automated countOrdered By: Denny Azevedo on 10-97-4329Ygicakcnj RBC Auto Ql (Bld)0.1 /100{WBC}0-0.5FMary Rutan HospitalOpiates [Presence] in Urine by Screen methodOrdered By: Denny Azevedo on 08-11-2023 Opiates Screen Ql (U)NegativeNegativeSelect Medical Specialty Hospital - Columbus Phencyclidine Screen Ql (U)Ordered By: Denny Azevedo on 33-27-1549Jyctnpsgralik Ql (U)NegativeNegativeSelect Medical Specialty Hospital - ColumbusPlatelet mean volume Auto (Bld) [Entitic vol]Ordered By: Denny Azevedo on 20-83-0343Itirticx mean volume (Bld) [Entitic vol]7.7 fL6.3-10.7FMary Rutan HospitalPlatelets Auto (Bld) [#/Vol]Ordered By: Denny Azevedo on 23-75-9010Liambsbtr (Bld) [#/Vol]307 10*3/vG418-399EyktvrnemSelect Medical Specialty Hospital - ColumbusPotassium [Moles/volume] in Serum or PlasmaOrdered By: Denny Azevedo on 19-67-9084Tcjyyydlf [Moles/Vol]3.3 mmol/L 3.5-5.1FMary Rutan HospitalProtein Auto test strip (U) [Mass/Vol] Ordered By: Denny Azevedo on 80-31-7871Slsnqbo (U) [Mass/Vol]30 mg/dLNegAshtabula County Medical CenterProthrombin time (PT)Ordered By: Denny Azevedo on 82-38-2778BL Coag (PPP) [Time]12.1 s9.0-12.9[facility] Comment on above:A hematocrit value greater than 55% may lead to inaccurate results in coagulation testing. Patientshaving hematocrit values >55% require a special collection tube for coagulation studies. Please contact the laboratory at [phone] for redraw instructions.RBC Auto (Bld) [#/Vol]Ordered By: Denny Azevedo on 46-62-3937APJ (Bld) [#/Vol]4.66 10*6/uL3.60-5.00[facility] – Jacksonerum or plasma anion gap determinationOrdered By: Denny Azevedo on 21-92-0466Sstgy gap [Moles/Vol]15.5 mmol/L6.0-15.0[facility] – Jacksonodium [Moles/volume] in Serum or PlasmaOrdered By: Denny Azevedo on 92-29-1120Sqlhxg [Moles/Vol]138 mmol/F595-058LaugrzwceSelect Medical Specialty Hospital - Columbus Specific gravity Auto test strip (U) [Rel density]Ordered By: Denny Azevedo on 35-74-0335Gsnvlilb gravity (U) [Rel density]1.0261.001-1.030[facility] – Jacksonquamous epithelial cells detection in urine sediment by light microscopyOrdered By: Denny Azevedo on 32-58-0434Laapjrfyka cells.squamous LM Ql (Urine sed)0-1 [HPF]0-2FMary Rutan HospitalUrea nitrogen [Mass/volume] in Serum or PlasmaOrdered By: Denny Azevedo on 77-14-8691Ahzn nitrogen [Mass/Vol]11 mg/dL7-25[facility] - ColumbusUrine bacteria detection by automated methodOrdered By: Denny Azevedo on 43-61-5440Ggjfdjtl Auto Ql (U)None seenNone SeenSelect Medical Specialty Hospital - ColumbusUrine clarity by refractometry automatedOrdered By: Denny Azevedo 18-12-5709Jlsrmzk Refractometry automated (U)ClearCleOhioHealth Grady Memorial HospitalUrine glucose measurement by automated test strip (mass/volume)Ordered By: Denny Azevedo 92-77-3483Echxeji Auto test strip (U) [Mass/Vol]Normal mg/dLFirelands Regional Medical Center South CampusUrine hemoglobin detection by automated test stripOrdered By: Denny Azevedo 94-23-0302Yawgmqgszg Auto test strip Ql (U)2+ NegativeSelect Medical Specialty Hospital - ColumbusUrine leukocyte esterase detection by automated test stripOrdered By: Denny Azevedo 24-69-1582Ysmemtegy esterase Auto test strip Ql (U)NegativeNegativeSelect Medical Specialty Hospital - Columbus Urobilinogen Auto test strip (U) [Mass/Vol]Ordered By: Denny Azevedo on 54-51-2143Wgisopwplacu (U) [Mass/Vol]Normal mg/dLNoSt. Rita's HospitalWBC Auto (Bld) [#/Vol]Ordered By: Denny Azevedo on 67-99-6467WHQ (Bld) [#/Vol]7.9 10*3/uL3.8-11.6FMary Rutan HospitalpH Auto test strip (U)Ordered By: Denny Azevedo on 37-45-5300yD (U)6.5 [pH]5.0-9.0[facility] - ColumbusBILIRUBIN CONJUGATED (DIRECT)on 56-89-3833HKOR, CONJUGATED0.3 mg/dLCritically high0.0-0.2The Madison HealthComment on above: Performed By: #### DBIL #### [facility] [address] [address] [address] Yaritza Washburn AUTO DIFFon 36-23-2745SAGJ #0.1 103/ulNormal0.0-0.1The [facility] HealthComment on above:Performed By: #### CBC #### [facility] [address] [address] [address] Yaritza BojorquezBasophils/100 WBC (Bld)0.5 %Normal0.2-2.0[facility] Comment on above:Performed By: #### CBC #### [facility] [address] [address] [address] Yaritza Blue #0.0 103/ulNormal0.0-0.7The [facility] HealthComment on above: Performed By: #### CBC #### [facility] [address] [address] [address] Yaritza Tafoyaosinophils/100 WBC (Bld)0.1 %Critically low0.9-7.0The [facility] HealthComment on above:Performed By: #### CBC #### [facility] [address] [address] [address] Yaritza Tafoyarythrocyte distribution width (RBC) [Ratio]12.1 %Xhphba61.0-15.0 The [facility] HealthComment on above:Performed By: #### CBC #### [facility] [facility] [address] [address] [address] Yaritza BojorquezHematocrit (Bld) [Volume fraction]45.0 %Ydmwhg00.0-48.0The [facility] HealthComment on above:Performed By: #### CBC #### [facility] [address] [place] [address] Dr. Yaritza BojorquezHemoglobin (Bld) [Mass/Vol]16.5 g/dLCritically high12.0-16.0The [facility] HealthComment on above:Performed By: #### CBC #### [facility] [address] [place] [address] Dr. Yaritza Chandler #0.05 10e3/ulCritically high0.00-0.03The [facility] Comment on above:Performed By: #### CBC #### [facility] [address] [place] [address] Dr. Yaritza Chandler %0.3 %Normal0.0-0.5The [facility] HealthComment on above: Performed By: #### CBC #### [facility] [address] [place] [address] Dr. Yaritza Cruz #3.2 103/ulNormal1.2-3.8The [facility] HealthComment on above:Performed By: #### CBC #### [facility] [address] [place] [address] Dr. Yaritza Gillhocytes/100 WBC (Bld)21.6 %Qsmtnu96.5-60.0The [facility] HealthComment on above:Performed By: #### CBC #### [facility] [address] [place] [address] Dr. Yaritza GuidryUAL DIFF REQNONormalThe [facility] HealthComment on above: Performed By: #### CBC #### [facility] [address] [place] [address] Dr. Yaritza Ocampo (RBC) [Entitic mass]30.7 uaSkcbje65.7-34.0The [facility] HealthComment on above:Performed By: #### CBC #### [facility] [address] [place] [address] Dr. Yaritza Tesfaye (RBC) [Mass/Vol]36.7 g/dLCritically high29.9-35.2The [facility] HealthComment on above:Performed By: #### CBC #### [facility] [address] [place] [address] Dr. Yaritza Conteh (RBC) [Entitic vol]83.8 rMFlmpgq57.0-99.0The [facility] HealthComment on above:Performed By: #### CBC #### [facility] [address] [place] [address] Dr. Yaritza Mercedes #0.8 103/ulNormal0.3-0.8The [facility] HealthComment on above:Performed By: #### CBC #### [facility] [address] [place] [address] Dr. Yaritza Jonesocytes/100 WBC (Bld)5.3 %Normal1.7-12.0[facility] Comment on above:Performed By: #### CBC #### [facility] [address] [place] [address] Dr. Yaritza Pearce #10.5 103/ulCritically high1.4-6.5[facility] Comment on above:Performed By: #### CBC #### [facility] [address] [place] [address] Dr. Yaritza Alegriautrophils/100 WBC (Bld)72.2 %Dfjbzw81.0-75.0The [facility] HealthComment on above:Performed By: #### CBC #### [facility] [address] [place] [address] Dr. Yaritza Blevinslet mean volume (Bld) [Entitic vol]10.0 fLNormal9.5-13.5The [facility] HealthComment on above:Performed By: #### CBC #### [facility] [address] [place] [address] Dr. Yaritza Burdick450 103/whVelxzy941-517Qcg [facility] HealthComment on above: Performed By: #### CBC #### [facility] [address] [place] [address] Dr. Yaritza BojorquezRBC5.37 106/ulNormal4.20-5.40The [facility] HealthComment on above:Performed By: #### CBC #### [facility] [address] [place] [address] Dr. Yaritza BojorquezWBC14.6 103/ulCritically high4.0-11.0The [facility] HealthComment on above:Performed By: #### CBC #### [facility] [address] [place] [address] Dr. Yaritza Vuong URINEon 83-94-9030JSPHIIU URINECulture Observations: LIGHT GROWTH OF MIXED GENITAL KRYSTAL. NO POTENTIAL PATHOGENS SEEN.NormalParkview Health Montpelier HospitalComment on above:Performed By: #### URCX #### [facility] [address] [place] [address] Dr. Yaritza Bosch URINE PROFILEon 29-19-0853Vakbchrfa Ql (U)NegativeNormal NEGATIVEThe Madison HealthComment on above:Performed By: #### BABAK LAZCANORO #### [facility] [address] [place] [address] Dr. Yaritza BojorquezClarity (U)CLEARNormalCLEARThe [facility] HealthComment on above: Performed By: #### BABAK LAZCANORO #### [facility] [address] [place] [address] Dr. Yaritza Cornell (U)DK. YELLOWNormalYELLOWParkview Health Montpelier HospitalComment on above:Performed By: #### ALBA LAZCANOICRO #### [facility] [address] [place] [address] Dr. Yaritza Day micrscopic examination will be performed if indicated. NormalParkview Health Montpelier HospitalComment on above:Performed By: #### NENO UMICRO #### [facility] [address] [place] [address] Dr. Yaritza Osbornose Ql (U)NegativeNormalNEGATIVEThe [facility] HealthComment on above:Performed By: #### NENO UMICRO #### [facility] [address] [place] [address] Dr. Yilan ChangHemoglobin Ql (U)NegativeNormalNEGATIVEThe [facility] on above:Performed By: #### BABAK LAZCANORO #### [facility] [address] [place] [address] Dr. Yaritza Chatmanones Ql (U)>=80AbnormalNEGATIVEThe [facility] HealthComment on above:Performed By: #### BABAK LAZCANORO #### [facility] [address] [place] [address] Dr. Yaritza BojorquezLEUKOCYTESTRACEAbnormalNEGATIVEThe [facility] HealthComment on above:Performed By: #### BABAK LAZCANORO #### [facility] [address] [place] [address] Dr. Yaritza BojorquezNitrite Ql (U)NegativeNormalNEGATIVEThe [facility] HealthComment on above:Performed By: #### BABAK LAZCANORO #### [facility] [address] [place] [address] Dr. Yaritza BojorquezpH (U)6.5 [pH]Normal5-9The [facility] HealthComment on above: Performed By: #### BABAK LAZCANORO #### [facility] [address] [place] [address] Dr. Yaritza BojorquezProtein (U) [Mass/Vol]100 mg/dLAbnormalNEGATIVE/ TRACEThe [facility] HealthComment on above:Performed By: #### BABAK LAZCANORO #### [facility] [address] [place] [address] Dr. Yaritza BojorquezSPEC GRAVITY1.401Qsqlgz7.005-<=1.025The [facility] HealthComment on above:Performed By: #### BABAK LAZCANORO #### [facility] [address] [place] [address] Dr. Yaritza Rodriguez MICRO INDINDICATEDNormalThe [facility] HealthComment on above: Performed By: #### BABAK LAZCANORO #### [facility] [address] [place] [address] Dr. Yilan ChangUrobilinogen Qn (U)4 {Emir'U}/dLAbnormal0.2 - 1.0The [facility] HealthComment on above:Performed By: #### TAYLA LAZCANO #### [facility] [address] [address] [address] Yraitza BojorquezPROF 14(COMP METB)on 22-57-8397Bjfbldm [Mass/Vol]4.5 g/dLNormal 3.4-5.0The [facility] HealthComment on above:Performed By: #### CMP #### [facility] [address] [place] [address] Dr. Yaritza BojorquezAlbumin/Globulin [Mass ratio]1.2 {ratio}NormalThe [facility] HealthComment on above:Performed By: #### CMP #### [facility] [address] [place] [address] Dr. Yaritza MedinaP [Catalytic activity/Vol]48 U/YPqogja87-596Daa [facility] HealthComment on above:Performed By: #### CMP #### [facility] [address] [address] [address] Yaritza Garcia [Catalytic activity/Vol]25 U/ALhrwme10-24Ewm [facility] HealthComment on above:Performed By: #### CMP #### [facility] [address] [place] [address] Dr. Yaritza Escalante gap [Moles/Vol]17.8 mmol/LNormalThe [facility] Comment on above:Performed By: #### CMP #### [facility] [address] [place] [address] Dr. Yaritza BojorquezAST [Catalytic activity/Vol]11 U/LCritically lgm20-75Vnr [facility] HealthComment on above:Performed By: #### CMP #### [facility] [address] [place] [address] Dr. Yaritza BojorquezBilirubin [Mass/Vol]1.4 mg/dLCritically high0.2-1.0The [facility] HealthComment on above:Performed By: #### CMP #### [facility] [address] [address] [address] Yaritza BojorquezCalcium [Mass/Vol]9.3 mg/dLNormal8.5-10.1The [facility] Comment on above:Performed By: #### CMP #### [facility] [address] [place] [address] Dr. Yaritza BojorquezChloride [Moles/Vol]98 mmol/OVinnqg70-624Gnp [facility] Comment on above:Performed By: #### CMP #### [facility] [address] [place] [address] Dr. Yaritza BojorquezCO2 [Moles/Vol]19.1 mmol/LCritically low21.0-32.0The [facility] HealthComment on above:Performed By: #### CMP #### [facility] [address] [place] [address] Dr. Yaritza BojorquezCreatinine [Mass/Vol]0.95 mg/dLNormal0.55-1.02The [facility] HealthComment on above:Performed By: #### CMP #### [facility] [address] [place] [address] Dr. Vigil ChangEGFR-AF ALBANIAN>60Normal>=60The [facility] HealthComment on above:Performed By: #### CMP #### [facility] [address] [place] [address] Dr. Yaritza TafoyaGFR-NON AF ALBANIAN>60Normal>=60The [facility] HealthComment on above:Performed By: #### CMP #### [facility] [address] [place] [address] Dr. Yaritza BojorquezGlobulin (S) [Mass/Vol]3.6 g/dLNormalThe [facility] HealthComment on above:Performed By: #### CMP #### [facility] [address] [place] [address] Dr. Yaritza BojorquezGlucose [Mass/Vol]138 mg/dLCritically azrw46-503Qcd [facility] HealthComment on above:Performed By: #### CMP #### [facility] [address] [place] [address] Dr. Yaritza BojorquezPotassium [Moles/Vol]2.9 mmol/LCritically low3.5-5.1The [facility] HealthComment on above:Performed By: #### CMP #### [facility] [address] [place] [address] Dr. Yaritza BojorquezProtein [Mass/Vol]8.1 g/dLNormal6.4-8.2The [facility] Comment on above:Performed By: #### CMP #### [facility] [address] [place] [address] Dr. Yaritza BojorquezSodium [Moles/Vol]132 mmol/LCritically jty883-268Aau [facility] HealthComment on above:Performed By: #### CMP #### [facility] [address] [place] [address] Dr. Yaritza BojorquezUrea nitrogen [Mass/Vol]8.0 mg/dLNormal7.0-18.0The [facility] HealthComment on above:Performed By: #### CMP #### [facility] [address] [place] [address] Dr. Yaritza Barahona nitrogen/Creatinine [Mass ratio]8.4 mg/mgNoTriHealth McCullough-Hyde Memorial HospitalComment on above:Performed By: #### CMP #### [facility] [address] [place] [address] Dr. Yaritza Justin MICROSCOPIC ONLYon 59-59-1918AGNQZEDKAGGMMNTNYntjuoulEPLT SEENParkview Health Montpelier HospitalComment on above:Performed By: #### BABAK LAZCANORO #### [facility] [address] [place] [address] Dr. Yaritza Hidalgo identified Cx Nom (U)INDICATEDNoTriHealth McCullough-Hyde Memorial HospitalComment on above:Performed By: #### NENO UMICRO #### [facility] [address] [place] [address] Dr. Yaritza Jones SEENSsm Saint [facility] Health CenteralNONE SEENParkview Health Montpelier HospitalComment on above:Performed By: #### NENO UMRAJANRO #### [facility] [address] [place] [address] Dr. Yaritza BojorquezCrystals LM Nom (Urine sed)NONE SEENNormalNONE SEENThe [facility] HealthComment on above:Performed By: #### ERUR, UMICRO #### [facility] [address] [address] [address] Vigil ChangEpithelial cells LM Ql (Urine sed)MANYAbnormalNONE SEEN /RAREThe [facility] HealthComformerly [facility] on above:Performed By: #### ERUR, UMICRO #### [facility] [address] [address] [address] Yaritza BojorquezMUCOUSSMALLAbnormalNONE SEENThe [facility] HealthComformerly [facility] on above:Performed By: #### RACHELLER, UMICRO #### [facility] [address] [place] [address] Dr. Yaritza BojorquezXkhliGRM4-5Cankbszt0-8[facility] on above:Performed By: #### NENO, UMICRO #### [facility] [address] [place] [address] Dr. Yaritza BojorquezWBC5-10AbnormalNONE SEENThe [facility] HealthComformerly [facility] on above: Performed By: #### ERUCoty, UMICRO #### [facility] [address] [place] [address] Dr. Yaritza BojorquezXR ABD FLAT UP_PA Coreen 97-12-3359RT ABD FLAT UP_PA CHEXAMINATION: XR ABD FLAT [...] Electronically authenticated by: MACK SAMUELS Date: 2022-03-03 07:46[facility] CompanyCovid-19 PCR (CVDTBH)on 20-43-9606JHLJ-CoV-2 (COVID-19) RNA KOLE+probe Ql (Unsp spec)Not detectedNormalNOT DETECTEDThe [facility] Comment on above:Result Comment: This test is not yet approved or cleared by the [place] FDA. When there are no FDA-approved or cleared tests available, and other criteria are met, FDA can make tests available under an emergency access mechanism called an Emergency Use Authorization (EUA). The EUA for this test is supported by the [employer] Worker of Health and Human Service's (HHS's) declaration [...] consistent with SARS-CoV-2.Performed By: #### CVDTBH #### [facility] [address] [place] [address] Dr. Yaritza BojorquezProvider Note - ED v2on 37-78-1970Pfursknx Note - ED v0Pcprgjnh Note - ED v2: Chart Review: ED [...] No Current Medications SIGNIFICANT EVENTS: Immunizations Description:Tdap HATCHERY MANAGER: Is : no(1) Is : no(1) RESULTS/VITAL SIGNS VITAL SIGNS: T PRBP SpO2O2(LPM) %FiO2 Method 22-Jun-2019 18:54:00-1512941/69 99 room air, no respiratory support 22-Jun-2019 18:07:00-36.86645160/71 97 room air, no respiratory support MEDICAL [...] - Final Verification: completed Procedure performed by: Oracle Consultant(s): none Findings: grossly normal anatomy Specimen: no [...] ED v2 Last Updated: 23-Jun-2019 07:29 by Babr Sanchez) References: 1. Data Referenced From Triage - ED 22-Jun-2019 18:07[facility] NortheastRisk Screen - Adult Emergencyon 03-17-1449Ukmz Screen - Adult Emergency Preferred Language: Preferred Language: Preferred Language for Discussing Health Care (patient/designee)Moroccan Advanced Directives: Advance Directive/DNRno Family Violence Adult: [...] an injured patient at a Trauma Center ([facility]): yes C: Have you ever felt you needed to Cut down on your drinking: no A: Have people Annoyed you by criticizing your drinking: no G: Have you ever felt Guilty about drinking: no E: Have you ever felt you needed a drink first thing in the morning (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) to steady your nerves or to get rid of hangover: no Electronic Signatures: Mehdi Chaney (RN) (Signed 22-Jun-2019 18:11) Authored: Preferred Language, Advanced Directives, Family Violence Adult, Learning Assessment (Patient), Learning Assessment (Other Learner), Pressure Injury/TB/Substance, CAGE Last Updated: 22-Jun-2019 18:11 by Mehdi Chaney (RN)[facility] 20-48-2580Qvnjjf - EDQuick Triage: The patient and/or guardian verbally acknowledges [...] Accompanied By: self Language: Spoken Language Preferred: Moroccan PRIMARY ASSESSMENT CHENTE GONZALEZ's primary assessment is [...] Last Updated: 22-Jun-2019 18:40 by Nitin Singer (AYALA)[facility] Vital Signs Date TimeVital SignValuePerforming AsopkjpmhQbouiwth13-03-8844 10:26-0400Body mass index (BMI) [Ratio]37.94 kg/m2Deyanira KABA Work Phone: [facility]'s HospitalLrwcuipusy26-75-5135 10:260400Body ddintq481.42 kgDeyanira KABA Work Phone: [phone]'s HospitalVeflzhpzzc12-09-8922 10:260400Diastolic blood vwygqxjc85 mm[Hg]Deyanira KABA Work Phone: [facility] HospitalXaptyckmby10-40-7827 10:260400Systolic blood mmzrrpna930 mm[Hg]Deyanira KABA Work Phone: [facility]'s HospitalXkspbgjknk15-28-1876 09:50-0400Body mass index (BMI) [Ratio]37.61 kg/t5EepzcJaspreet Adams DO Work Phone: [phone] [place] [address]-16-2025 09:50-0400Body ieywpi224.51 kgCorey Angie DO Work Phone: [phone] [place] [address]-16-2025 09:50-0400Diastolic blood qpftbfso10 mm[Hg]Jaspreet Angie DO Work Phone: [phone] [place], [place] [address]Pewycejvev66-03-3446 09:50-0400Systolic blood vrgzoeuz188 mm[Hg]Jaspreet Angie DO Work Phone: [phone] [place], [place] [address]Biqkmgpmdv21-89-2932 11:40-0400Body mass index (BMI) [Ratio]37.28 kg/d2YvpufpwuWilly Avila ENGINEERING AND DEVELOPMENT DIRECTOR Work Phone: [phone] [place] [address]-06-2025 11:40-0400Body .61 kgKrprashant Avila ENGINEERING AND DEVELOPMENT DIRECTOR Work Phone: [phone] [place], [place] [address]Uxbphwymrr57-09-4869 11:40-0400Diastolic blood sitwintz43 mm[Hg]Willy Avila ENGINEERING AND DEVELOPMENT DIRECTOR Work Phone: [phone] [place] [address]-06-2025 11:40-0400Systolic blood rwwkixnv950 mm[Hg]Willy Avila ENGINEERING AND DEVELOPMENT DIRECTOR Work Phone: [phone] [place], [place] [address]Rnoudvboew47-04-3904 10:03-0400Body mass index (BMI) [Ratio]36.08 kg/m2Amy Juan PA Work Phone: [phone] [place], [place] [address]Pjsejaotnd52-92-8134 10:03-0400Body qmffaa00.34 kgAmy Juan PA Work Phone: [phone] [place] [address]-18-2025 10:03-0400Diastolic blood uzmabbxi26 mm[Hg]Deyanira Martinez PA Work Phone: [phone] [place] [address]-18-2025 10:03-0400Systolic blood pifpainu152 mm[Hg]Deyanira Martinez PA Work Phone: [phone] [place] [address]-03-2025 15:05-0400Body mass index (BMI) [Ratio]35.01 kg/o5Tdayq Angie DO Work Phone: [phone] [place] [address]-03-2025 15:05-0400Body qhixsl10.44 kgCorey Angie DO Work Phone: [phone]-[facility]'s HospitalVpmdncgjlh77-33-1859 15:05-0400Diastolic blood keexedev97 mm[Hg]Jaspreet Angie DO Work Phone: [facility]'s HospitalEhcethfpwo51-68-5588 15:05-0400Systolic blood ndvfydel735 mm[Hg]Jaspreet Angie DO Work Phone: [phone] [place], [place] [address]Pualqqcggc16-39-3225 10:41-0400Body mass index (BMI) [Ratio]33.91 kg/m2Amy Juan KABA Work Phone: [phone] [place], [place] [address]Mhnkaykehz53-62-1013 10:41-0400Body frysgz01.44 kgAmy Juan KABA Work Phone: [phone] [place], [place] [address]Ctsrotyctg46-28-2970 10:41-0400Diastolic blood tbvetakn09 mm[Hg]Deyanira KABA Work Phone: [phone] [place], [place] [address]Lyduweaagm86-64-0583 10:41-0400Systolic blood kxheolid961 mm[Hg]Deyanira KABA Work Phone: [phone] [place], [place] [address]Lmtduayfhv93-23-3827 10:50-0400Body mass index (BMI) [Ratio]33.35 kg/s0Abcsn Angie DO Work Phone: [phone] [place], [place] [address]Zmoqyxlusk37-67-6386 10:50-0400Body .9 kg Jaspreet Angie DO Work Phone: [phone] [place], [place] [address]Oruximzsbp15-17-6010 10:50-0400Diastolic blood vzdcgenp37 mm[Hg]Jaspreet Angie DO Work Phone: [phone] [place], [place] [address]Vqearizukb20-43-7184 10:50-0400Systolic blood pffokmat408 mm[Hg]Jaspreet Angie DO Work Phone: [phone] [place], [place] [address]Epwuzkjlqo34-17-9969 11:16-0400Body mass index (BMI) [Ratio]31.62 kg/l7Veric Angie DO Work Phone: [phone] [place], [place] [address]Mohjcpmgdi83-43-3423 11:16-0400Body ylbqdu70.18 kgCorey Angie DO Work Phone: [phone] [place], [place] [address]Fhbbtqojpf37-34-1099 11:16-0400Diastolic blood qpifwccz92 mm[Hg]Jaspreet Angie DO Work Phone: [phone] [place], [place] [address]Lyyndsiroj60-41-5584 11:16-0400Systolic blood lcsckbik804 mm[Hg]Jaspreet Angie DO Work Phone: [phone] [place], [place] [address]Vxzbwzvxim76-22-1182 10:57-0400Body mass index (BMI) [Ratio]31.53 kg/e8AcnawvxhWilly Avila ENGINEERING AND DEVELOPMENT DIRECTOR Work Phone: [phone] [place], [place] [address]Jzlqairmkk11-12-8226 10:57-0400Body wmonxa10.96 kgKrprashant Avila ENGINEERING AND DEVELOPMENT DIRECTOR Work Phone: [phone] [place], [place] [address]Akewbmqniu09-13-5708 10:57-0400Diastolic blood zrgecxyh12 mm[Hg]Willy Avila ENGINEERING AND DEVELOPMENT DIRECTOR Work Phone: [phone] [place], [place] [address]Bhhtyhguvr54-79-3985 10:57-0400Systolic blood eulrzwoy850 mm[Hg]Willy Avila ENGINEERING AND DEVELOPMENT DIRECTOR Work Phone: [phone] [place], [place] [address]Zdhzedqqqb62-06-5690 11:42-0400Diastolic blood wtluwder55 mm[Hg][facility]05-30-2025 11:42-0400Systolic blood rcqacnez681 mm[Hg][facility]05-30-2025 11:21-0400Body mass index (BMI) [Ratio]32.01 kg/m2[facility]05-30-2025 11:21-0400Body vrebyj09.26 kgP[facility] Hospital04-28-2025 13:51-0400Body mass index (BMI) [Ratio]31.35 kg/e9Itxmq Angie DO Work Phone: [phone] [place], [place] [address]Ocxxklrwbp93-29-9710 13:51-0400Body .46 kgCorey Angie DO Work Phone: [phone] [place], [place] [address]Nlwnlsuhvu98-09-6393 13:51-0400Diastolic blood udqzkhrb98 mm[Hg]Jaspreet Angie DO Work Phone: NOKind[facility] HospitalVlowgafcbn41-66-5446 13:51-0400Systolic blood mm[Hg]Jaspreet Angie DO Work Phone: NOKindred HospitalQaibvtprmj21-64-0567 22:07-0500Diastolic blood kubcugjo55 mm[Hg]PHYSICIAN [facility]12-15-2023 22:07-0500Heart rate71 /minPHYSICIAN [facility] 08-11-2023 22:07-0500Respiratory rate18 /minPHYSICIAN [facility]12-15-2023 22:07-7843ZwI9% (BldA) [Mass fraction]99 % PHYSICIAN NO [facility]12-15-2023 22:07-0500 Systolic blood agwcrxak774 mm[Hg]PHYSICIAN [facility]12-15-2023 19:17-0500Body eunjrh348.18 cmPHYSICIAN [facility]12-15-2023 19:17-0500Body ywvdxh51.73 kgPHYSICIAN [facility] Encounters Encounter DateEncounter TypeCare ProviderFacilityStart: 06-19-2025 End: 16-20-5112Mfgjgi Effie KABA Work Phone: [facility] OBGYNStart: 06-19-2025 End: 45-53-6534Ldcbywfelton KABA Work Phone: [facility] [place] OBGYNStart: 06-19-2025 End: 68-67-8574gwawgtgbyjQTV RAMEYNot AvailableStart: 06-19-2025 End: 93-64-9461Aexezl outpatient visit 15 minutesDeyanira KABA Work Phone: [facility] OBGYNComment on above:Third trimester ([facility]); 38 weeks gestation of ([facility])Start: 06-12-2025 End: 95-80-6454Jranok flowsheetCorey Angie DO Work Phone: [facility]BGYNStart: 06-12-2025 End: 37-91-7488Eueuxc flowsheetCorey Angie DO Work Phone: [facility] [place] OBGYNStart: 06-12-2025 End: 50-70-3118bsxvnzhhmyQSOQZ FAZIONot AvailableStart: 06-12-2025 End: 82-23-0934Gmtmge outpatient visit 15 minutesCorey Angie DO Work Phone: NOEM [facility] OBGYNComment on above:Third trimester ([facility] 37 weeks gestation of ([facility])Start: 06-02-2025 End: 57-52-8574Bvivkdufx Result EncounterCorey Angie DO Work Phone: noms External Department UnsolicitedStart: 06-02-2025 End: 72-04-4228Pkxmaezwf Result EncounterCorey Angie DO Work Phone: NOAZ External Department UnsolicitedStart: 06-02-2025 End: 59-05-5809nevyjxwpgvPGJPTSIV EBERLYNot AvailableStart: 06-02-2025 End: 15-18-7387Eyqpoc outpatient visit 15 minutesKristina Austin ENGINEERING AND DEVELOPMENT DIRECTOR Work Phone: NOXV [place] OBGYNComment on above:35 weeks gestation of ([facility]); Third trimester ([facility])Start: 05-26-2025 End: 26-78-6626Hpurhhqfo Result EncounterCorey Angie DO Work Phone: NOKY External Department UnsolicitedStart: 05-26-2025 End: 60-11-2927Hexgargbx Result EncounterCorey Angie DO Work Phone: NOUN External Department UnsolicitedStart: 05-20-2025 End: 99-32-2058Lbawzwfgs Result EncounterCorey Angie DO Work Phone: [facility] External Department UnsolicitedStart: 05-20-2025 End: 86-68-2939Amehzxuep Result EncounterCorey Angie DO Work Phone: [facility] External Department UnsolicitedStart: 05-19-2025 End: 14-16-2201Geymyeuct Result EncounterCorey Angie DO Work Phone: [facility] External Department UnsolicitedStart: 05-19-2025 End: 71-89-8484Ciijkevon Result EncounterCorey Angie DO Work Phone: [facility] External Department UnsolicitedStart: 05-15-2025 End: 42-76-6371Xugkap Effie KABA Work Phone: [place] OBGYNStart: 05-15-2025 End: 26-04-1138Cqjnnw Effie KABA Work Phone: NOMS [facility] OBGYNStart: 05-15-2025 End: 19-47-1262ncmdurpywcDTZ Mitra AvailableStart: 05-15-2025 End: 61-15-2440Abfaxl outpatient visit 15 minutesDeyanira KABA Work Phone: NOMS Veronica OBGYNComment on above:33 weeks gestation of ([facility]); Third trimester ([facility]); Gestational diabetes mellitus (GDM), antepartum, gestational diabetes method of control unspecified([facility])Start: 04-30-2025 End: 93-95-8218Zubyop outpatient visit 15 minutesCorey Angie DO Work Phone: NOMS Veronica OBGYNComment on above:31 weeks gestation of ([facility]); Third trimester ([facility]); Gestational diabetes mellitus (GDM), antepartum, gestational diabetes method of control unspecified([facility])Start: 04-30-2025 End: 15-45-6865fbhtbklqogVPXVR FAZIONot AvailableStart: 04-17-2025 End: 40-66-2406Ahmfwf Effie KABA Work Phone: [facility] [place] [facility]BGYNStart: 04-17-2025 End: 71-34-1825Zxmgmv flowsheetDeyanira KABA Work Phone: [place] OBGYNStart: 04-17-2025 End: 67-21-6982edpaynkjgtYYC JUANNot AvailableStart: 04-17-2025 End: 84-01-2632Njntox outpatient visit 15 minutesAmy Juan KABA Work Phone: NOMS Veronica OBGYNComment on above:Size of fetus inconsistent with dates in second trimester ([facility]) (Primary Dx); Third trimester ([facility]); 29 weeks gestation of ([facility])Start: 04-03-2025 End: 69-46-8329Hlfbzp flowsheetCorey Angie DO Work Phone: [facility] [place] [facility]BGYNStart: 04-03-2025 End: 15-04-5874Afkzge flowsheetCorey Angie DO Work Phone: [facility] OBGYNStart: 04-03-2025 End: 08-83-4494ojofxboiqjAXXQW FAZIONot AvailableStart: 04-03-2025 End: 26-99-0604Wftbxa outpatient visit 15 minutesCorey Angie DO Work Phone: NOMS Veronica OBGYNComment on above:Second trimester ([facility]); 27 weeks gestation of ([facility])Start: 03-28-2025 End: 34-81-7642Oxkzg abstractingScanning Provider ExternalMaternal- Medicine at Pomerene Hospitaltart: 03-21-2025 End: 26-98-4255Sqysielwh Result EncounterCorey Angie DO Work Phone: [facility] External Department UnsolicitedStart: 03-21-2025 End: 15-78-2008Vsulgbasr Result EncounterCorey Angie DO Work Phone: [facility] External Department UnsolicitedStart: 03-19-2025 End: 86-53-2669tnmukkysllCEF RAMEYNot AvailableStart: 03-06-2025 End: 04-92-6661Rxmnksozm Result EncounterCorey Angie DO Work Phone: noMS External Department UnsolicitedStart: 03-06-2025 End: 65-57-9919Vbxxjsswi Result EncounterCorey Angie DO Work Phone: noms External Department UnsolicitedStart: 03-05-2025 End: 51-69-4322Mbvqbm flowsheetCorey Angie DO Work Phone: [facility] BCP OBStart: 03-05-2025 End: 55-99-7917Qnlwza flowsheetCorey Angie DO Work Phone: NOXL BCP OBStart: 03-05-2025 End: 92-11-1201Egteeuhln Result EncounterCorey Angie DO Work Phone: noms External Department UnsolicitedStart: 03-05-2025 End: 37-40-5350Oxcaizq encounter procedureCorey Angie DO Work Phone: NOAZ HealthcareStart: 03-05-2025 End: 99-02-8322Ihpuqsqd preventive med est patient 18-39 yrsCorey Angie DO Work Phone: noms [facility] OBComment on above:Second trimester ([facility] 23 weeks gestation of ([facility]); Diabetes mellitus screening; Well woman exam with routine gynecological exam; Other insomniaStart: 03-05-2025 End: 83-72-9539najnyebnabWKUGQ FAZIONot AvailableStart: 02-19-2025 End: 20-37-3045rdjozntyosYJMIJWSU EBERLYNot AvailableStart: 02-12-2025 End: 21-64-8631jgeksuyvyjCXM RAMEYNot AvailableStart: 01-31-2025 End: 72-85-3943Ogmwjgqnj Result EncounterCorey Angie DO Work Phone: noms External Department UnsolicitedStart: 01-31-2025 End: 43-96-2931Skgvyoflg Result EncounterCorey Angie DO Work Phone: [facility] External Department UnsolicitedStart: 01-29-2025 End: 26-60-9879Mwdvfd flowsheetKarlaa Austin ENGINEERING AND DEVELOPMENT DIRECTOR Work Phone: NOM[facility] BCP OBStart: 01-29-2025 End: 07-99-0102Dmuezu flowsheetKristina Austin ENGINEERING AND DEVELOPMENT DIRECTOR Work Phone: [facility]OM[facility] BCP OBStart: 01-29-2025 End: 06-95-0545Feigiucu Result EncounterKristina Austin ENGINEERING AND DEVELOPMENT DIRECTOR Work Phone: NOMS External Department UnsolicitedStart: 01-29-2025 End: 15-50-1866rswnqsoxduNKAJMVYK NIRUERLYNot AvailableStart: 01-29-2025 End: 73-42-6926Fstrsm outpatient visit 15 minutesKrprashant Avila ENGINEERING AND DEVELOPMENT DIRECTOR Work Phone: NOMS BCP OBComment on above:Second trimester ; 18 weeks gestation of pregnancyStart: 01-24-2025 End: 09-82-8966Vstazw outpatient visit 5 minutesNoms Bcp Ob Angie NurseNOMS BCP OBComment on above:GA: 70p5yVovwd: 01-24-2025 End: 49-16-0979wwqsgrfphwRIOXG FAZIONot AvailableStart: 01-06-2025 End: 09-74-8182apojisawfoLathndk Filomena MarkerFacility:[facility]sontart: 01-06-2025 End: 35-18-9695Yimznpbo ReferredMelissa Marker DO Work Phone: [facility]-LAB Path Spec Veronica HospStart: 12-23-2024 End: 09-10-3919Lacaie flowsheetCorey Angie DO Work Phone: [facility] BCP OBStart: 12-23-2024 End: 81-65-7457Pbxtpu flowsheetCorey Angie DO Work Phone: [facility] BCP OBStart: 12-23-2024 End: 81-16-8848hdkqvgthbcPZOHQ FAZIONot AvailableStart: 12-23-2024 End: 41-06-9677Feaduu outpatient visit 15 minutesCorey Angie DO Work Phone: NOQR [facility] OBComment on above:Hyperemesis gravidarum; Follow-up examStart: 08-11-2023 End: 84-94-2185Phpepphng department patient visitPHYSICIAN [facility] Work Phone: Start: 03-03-2022 End: 11-84-9914aauofgiagyEL DOCTOR MISCFacility:B8Atowj: 08-23-2021 End: 04-12-3619hfhboytcxrOEZHMT RODRIGUEZFacility:H1 Procedures DateProcedureProcedure DetailPerforming ClinicianStart: 80-71-1196Zycgn dip stick/tablet rgnt non-auto w/o micrscpAmy Juan KABA Work Phone: Start: 74-58-4613Nrfay dip stick/tablet rgnt non-auto w/o micrscpCorey Angie DO Work Phone: Start: 02-97-4409Pxwho dip stick/tablet rgnt non-auto w/o micrscpKristina Austin TAPIA Work Phone: Start: 44-16-1896MZ OB BPP W NON-STRESSCorey Angie DO Work Phone: Start: 32-37-4378MT OB BPP W NON-STRESSCorey Angie DO Work Phone: Start: 46-81-9408AO AMNIOTIC FLUID VOLUMECorey Angie DO Work Phone: Start: 08-10-1619DE OB BPP W NON-STRESSCorey Angie DO Work Phone: Start: 99-86-0382Ximgz dip stick/tablet rgnt non-auto w/o micrscpAmy Juan KABA Work Phone: Start: 20-23-8842Wpsqt dip stick/tablet rgnt non-auto w/o micrscpCorey Angie DO Work Phone: Start: 28-66-6529Hiabg dip stick/tablet rgnt non-auto w/o micrscpCorey Angie DO Work Phone: Start: 49-57-0941Igxgv dip stick/tablet rgnt non-auto w/o micrscpCorey Angie DO Work Phone: Start: 38-07-0431IPDMRWI TOLERANCE 3 HOURCorey Angie DO Work Phone: Start: 18-86-8870Hacochz tolerance test gtt 3 specimensNot In System Ref ProvStart: 55-26-0550TJBERGZ 1 HOURCorey Angie DO Work Phone: Start: 23-94-7736Jiwhy dip stick/tablet rgnt non-auto w/o micrscpCorey Angie DO Work Phone: Start: 82-97-2427OFZ,APTIMA HPV,AGE GDLNCorey Angie DO Work Phone: Start: 08-24-4496Ysgj ia hepatitis b surface antigen Not In System Ref ProvStart: 52-42-2544GWZ TESTCorey Angie DO Work Phone: Start: 49-68-2120Rqjmogpa rubellaNot In System Ref ProvStart: 78-66-7850Tgoshlkr screenScanning ExternalStart: 55-15-8378Ymwd scrn 1+ class nonchromoNot In System Ref ProvStart: 57-70-2865Uhtiujvaxg glycosylated z4aTtwynqbt Provider ExternalStart: 90-08-0906KLD 1&2 AB/AG SCREEN (P24 AG)Not In System Ref ProvStart: 32-12-6392HVYG AND SCREENNot In System Ref ProvStart: 74-89-7019FPARMIX TRACT INFECTION (HTRX)Willy Avila ENGINEERING AND DEVELOPMENT DIRECTOR Work Phone: Start: 43-71-0225Lkrzc dip stick/tablet rgnt non-auto w/o micrscpKristina Austin ENGINEERING AND DEVELOPMENT DIRECTOR Work Phone: Start: 30-59-4130Lnxuj dip stick/tablet rgnt non-auto w/o micrscpCorey Angie DO Work Phone: Start: 50-49-2329Ahjba X-ray of right handPHYSICIAN NO FAMILYStart: 26-78-2538Mokqgdgg tomography of abdomen and pelvis with contrast PHYSICIAN NO FAMILYStart: 98-79-7070IQ cervical spine without contrastPHYSICIAN NO FAMILYStart: 11-49-4679RJ of facial bones without contrastPHYSICIAN NO FAMILY Start: 37-53-4538SP of head without contrastPHYSICIAN NO FAMILYStart: 08-11-2023 CT of thorax with contrastPHYSICIAN NO FAMILYStart: 08-11-2023 End: 89-09-2251Eszrc chest X-rayPHYSICIAN NO FAMILY Plan of Treatment DateCare ActivityDetailAuthorStart: 06-26-2025 End: 37-99-9240Wvddize encounter tuswvgcod28/30/2025 9:20 AM EDT Routine [facility] [address], [id number] Deyanira Martinez, PA [address] [place] [address] NOMS Veronica OBGYNStart: 06-19-2025 End: 15-84-6758Zcwqgxo encounter jkuasoipk95/23/2025 9:40 AM EDT Routine [facility] [place] [facility] [address], [id number] Deyanira Martinez PA [address] [place] [address] NOMS Veronica OBGYNStart: 06-12-2025 End: 18-08-5428Hgajisy encounter mxunowsgu37/16/2025 9:40 AM EDT Routine [facility] [address] [place], [id number] Jaspreet Adams DO [address] [place] [place], [place] [id number] MATTIE Veronica OBGYNStart: 06-02-2025 End: 71-46-1500VOJANRU, GROUP B STREP WITH SUSCEPTIBLITYCULTURE, GROUP B STREP WITH SUSCEPTIBLITY Lab Routine Third trimester ([facility]) Expected: 06/02/2025, Expires: [facility] Work Phone: comment on above:Expected: 06/02/2025, Expires: 06/02/2026Start: 06-02-2025 End: 45-96-8692Hamexgi encounter /06/2025 11:20 AM EDT Routine [facility] [place] [facility] [address] [place] [phone] Willy Avila, ENGINEERING AND DEVELOPMENT DIRECTOR [address] [place] [phone] KUNALFerny Veronica OBGYNStart: 04-30-2025 End: 24-06-6334MM biophysical profile w non stress testUS biophysical profile w non stress test Imaging Routine Gestational diabetes mellitus (GDM),antepartum, gestational diabetes method of control unspecified ([facility]) Expected: 04/30/2025 (Approximate), Expires: 10/28/2025[facility] Work Phone: comment on above:Expected: 04/30/2025 (Approximate), Expires: 10/28/2025Start: 26-81-7960Quxnezgtg vaccinationInfluenza Vaccine [facility] SystemStart: 04-17-2025 End: 86-11-4458GN for pregnancyUS OB follow up transabdominal approach Imaging Routine Size of fetus inconsistent with dates in second trimester ([facility]) Expected: 04/17/2025, Expires: 08/17/2025[facility] Work Phone: comment on above:Expected: 04/17/2025, Expires: 08/17/2025Start: 04-17-2025 End: 38-83-0473Mdnipdm encounter ubnhwoamg56/21/2025 9:50 AM EDT Routine [facility] [address], [id number] Deyanira Martinez PA [address] [place], [place] [id number] NOMS Veronica OBGYNStart: 04-03-2025 End: 21-47-2816ccpmfceirv25/07/2025 1:30 PM EDT Support Visit Maternal- Medicine at [place] [id number] [place] [address] Rimma Richey RN [address] [facility], [address] [place] [address] Nikky Gonzalez, BLADE Brian, Consuelo, [place] [address] [place] [address] [facility]: 04-03-2025 End: 69-08-1497Fdxebxs encounter fbqbwjewn60/07/2025 10:40 AM EDT Routine [facility] [address], [place] [address] Jaspreet Adams DO [address] [place], [place] [id number] NOMS BCP OBStart: 03-19-2025 End: 67-11-0017Guhupfgcceiw / ancillary services ertqhcqajk97/23/2025 9:30 AM EDT Ancillary Procedure [facility] [address], [place] [address] NOMS BCP OBStart: 03-05-2025 End: 98-17-3564ATU panel - Blood by Automated countCBC Lab Routine Diabetes mellitus screening Expected: 03/05/2025 (Approximate), Expires: 03/05/2026NOMS HealthcareComment on above:Expected: 03/05/2025 (Approximate), Expires: 03/05/2026Start: 03-05-2025 End: 83-18-6650Dgaunztofsf of glucose 1 hour after glucose challenge for glucose tolerance testGlucose tolerance, 1 hour Lab Routine Diabetes mellitus screening Expected: 03/05/2025 (Approximate), Expires: 03/05/2026NOMS HealthcareComment on above:Expected: 03/05/2025 (Approximate), Expires: 03/05/2026Start: 03-05-2025 End: 56-40-8246Bckwdck encounter ozrvkvwmg78/09/2025 11:00 AM EDT Routine [facility] [address], [place] [address] Jaspreet Adams, [address] [place] [address] ArrivedNOCA BCP OBComment on above: ArrivedStart: 02-27-2025 End: 80-06-6172Shzjpoo encounter auzrisxwe96/03/2025 8:50 AM EDT Routine [facility] [place] [address] [address] Jaspreet Adams, DO [address] [place] [address] NOMS BCP OBStart: 02-12-2025 End: 05-08-3527Qrmetkvn Vveucyz8302/12/2025 9:00 AM EDT Clinical Support [facility] [address] [place] [address] MOFN BCP OB Start: 01-29-2025 End: 05-96-8871Liuotuw encounter wnpuafuwa96/04/2025 10:20 AM EDT Routine [facility] [address] [place] [address] Willy Avila, ENGINEERING AND DEVELOPMENT DIRECTOR [address] [place] [address] NOMS BCP OBStart: 01-24-2025 End: 64-06-7069MXX/RhABO/Rh Lab Routine Missed menses , unspecified gestational age Expected: 01/24/2025 (Approximate), Expires: 01/24/2026NOMS HealthcareComment on above:Expected: 01/24/2025 (Approximate), Expires: 01/24/2026Start: 01-24-2025 End: 49-84-3532Pqnqu fetoprotein, maternalAlpha fetoprotein, maternal Lab Routine Encounter for supervision of normal first in first trimester Expected: 01/24/2025 (Approximate), Expires: 03/26/2025NOMS HealthcareComment on above:Expected: 01/24/2025 (Approximate), Expires: 03/26/2025Start: 01-24-2025 End: 80-83-9450Zzgsb type and Indirect antibody screen panel - BloodType and screen Lab Routine Missed menses , unspecified gestational age Expected: 01/24/2025 (Approximate), Expires: 01/24/2026[facility] Work Phone: comment on above:Expected: 01/24/2025 (Approximate), Expires: 01/24/2026Start: 01-24-2025 End: 45-25-7050Mxgua of abuse panel - Urine by Screen methodRapid drug screen, urine Lab Routine , unspecified gestational age Encounter for supervision of normal first in first trimester Expected: 01/24/2025 (Approximate), Expires: 01/24/2026NOCA HealthcareComment on above:Expected: 01/24/2025 (Approximate), Expires: 01/24/2026Start: 01-10-2025 End: 24-49-7551jxanutuvlg66/16/2025 9:30 AM EDT Initial [facility] [address] [place] [address] [address] [place], [place] [address] [facility]S [facility] OBStart: 01-10-2025 End: 46-51-2370Uzshhltenvpe / ancillary services vbqcujophj08/16/2025 9:00 AM EDT Ancillary Procedure [facility] [address] [place] [address] EDSS [facility] OBStart: 44-53-3428Zsohzkoq identified in Urine by CultureUrine CultureHolzer Medical Center – Jacksontart: 95-22-9763Qbdzj cultureHolzer Medical Center – Jacksontart: 39-50-0695Oljrqctku for malignant neoplasm of cervixPap SmearSCCI Hospital Lima SystemStart: 20-26-0186RVaL,Tdap and Td Vaccines (1 - Tdap)DTaP,Tdap and Td Vaccines (1 - Tdap)[facility] SystemStart: 40-94-8659Zyuti BMI ScreeningAdult BMI ScreeningAtrium Health Wake Forest Baptist Medical Centertart: 93-19-3847Tykgrfgynp ScreeningDepression ScreeningAtrium Health Wake Forest Baptist Medical Centertart: 73-40-5806Cnzycon ScreeningTobacco ScreeningLakeHealth [facility] Bacteria identified in Urine by CultureUrine culture Microbiology Routine Missed menses Ordered: 01/24/2025[facility] HealthcareComment on above:Ordered: 01/24/2025 Bacteria identified in Urine by CultureUrine culture Microbiology Routine Second trimester Ordered: 01/29/2025[facility] Healthcare Work Phone: comment on above:Ordered: 01/29/2025BC W Auto Differential panel - BloodCBC and differential Lab Routine Missed menses , unspecified gestational age Ordered: 01/24/2025[facility] HealthcareComment on above:Ordered: 01/24/2025ytology Cervical or vaginal smear or scraping studyPap Smear Pathology and Cytology Routine Well woman exam with routine gynecological exam Ordered: 03/05/2025[facility] Healthcare Work Phone: comment on above:Ordered: 03/05/2025Hemoglobin A1c/Hemoglobin.total in BloodHemoglobin A1c Lab Routine Missed menses , unspecified gestational age Ordered: 01/24/2025[facility] HealthcareComment on above: Ordered: 01/24/2025Hepatitis B virus surface Ag [Presence] in Serum or Plasma by ImmunoassayHepatitis B surface antigen Lab Routine Missed menses , unspecified gestational age Ordered: 01/24/2025[facility] HealthcareComment on above: Ordered: 01/24/2025Hepatitis C virus Ab [Presence] in Serum or Plasma by ImmunoassayHepatitis C antibody Lab Routine Missed menses , unspecified gestational age Ordered: 01/24/2025[facility] HealthcareComment on above:Ordered: 01/24/2025HIV-1/HIV-2 antigen/antibody combination immunoassayHIV-1 and HIV-2 antibodies Lab Routine Missed menses , unspecified gestational age Ordered: 01/24/2025[facility] HealthcareComment on above:Ordered: 01/24/2025Patient EducationHead injury in adults Blunt Abdominal Trauma ED Blunt Chest Trauma ED [facility] Work Phone: Patient [facility] Work Phone: Reagin Ab [Presence] in Serum by RPRRPR Lab Routine Missed menses , unspecified gestational age Ordered: 01/24/2025[facility] HealthcareComment on above:Ordered: 01/24/2025Rubella antibody, IgGRubella antibody, IgG Lab Routine Missed menses , unspecified gestational age Ordered: 01/24/2025[facility] HealthcareComment on above:Ordered: 01/24/2025 Immunizations Immunization DateImmunizationNotesCare ItcxmgrmLfbvyhou87-62-4907mwxvkaa toxoid, reduced diphtheria toxoid, and acellular pertussis vaccine, adsorbedPHYSICIAN [facility] Payers DatePayer CategoryPayerPolicy [id number] Health [facility] [id number]-ymd [id number] [id number] [id number] [id number] 2.840.1.342325.3.57[id number] 2.0.1.084224.3.57[id number] 2.840.1.037229.3.57[id number] 2.840.1.424689.3.57[id number] 2.840.1.377120.3.57[id number] 2.840.1.455944.3.579.[id number] 2.840.1.654385.3.57[id number] 2.840.1.467428.3.57[id number] 2.16840.1.975988.3.57[id number] 2.840.1.537519.3.57[id number] 2.840.1.029025.3.57[id number] 2.840.1.240267.3.57[id number] 2..0.1.712832.3.579.2.9[id number] 2..0.1.727695.3.57[id number] 2..0.1.681914.3.579.[id number] 2.0.1.103949.3.57[id number] 2..0.1.430238.3.579.2.243315-07-2348Fqboaew108302789449NriaqhsUayobrn Auto/[id number] 9437v1y5-q749-99q9-269b-8hh58p604l0sDtgyrvoXRMM/HFA/FAP Pjyinr76a3p773-p278-70iy-sd[id number] 2.0.1.957485.3.579.2.531UnknownRegular Auto/Wapydwlhh53-5757218 8mn32s97-677r-135d-a8q3-6j7ud5023944XtifatiMURZ/HFA/FAP [id number] 71968n38-d997-9y4b-862t-cc2s23ost4vf Social History DateTypeDetailFacilityStart: 08-11-2023 End: 27-63-6519Lqllrac smoking status NHISNever smoked tobacco (finding) [facility]art: 58-42-4766Dho Assigned At BirthFemale [facility] ColumbusTobacco smoking status NHISTobacco smoking consumption unknownUTAH STATE HOSPITAL HealthcareStart: 58-73-2473Wengud identityIdentifies as female gender (finding)[facility] HealthcareStart: 70-51-4266Qgkdxi orientationNot on [facility] Work Phone: Start: 01-07-2025 End: 91-15-7213RpuIfloel (finding)[facility]art: 79-16-6961PciyfsjalJOZK HealthcareStart: 02-19-1483Drd assigned at birthNot on fileRegional Medical Center North by South St. Vincent[facility] Hospital Westchestertart: 69-17-3500Gjjrbyc of Social functionUTAH STATE HOSPITAL [employer] Work Phone: Start: 56-94-1900BzwNozfofYLZX Healthcare Medical Equipment Procedure CodeEquipment CodeEquipment Original TextEquipment IdentifierDates1 strip by In Vitro route Daily Use in the morning prior to breakfast, 1 hour after each meal for atotal of 4times daily.[id number]: 03-24-2025 End: each by In Vitro route Daily Use to check FSBS four times daily [id number]: 03-24-2025 End: 04-23-2025 Clinical Notes 12-23-2024 to 06-19-2025 Note Date & GgvuIybeIwchmoiv55-78-1331 History of Present illness Narrative* SENDY Fan - 06/19/2025 9:40 AM EDT [...] ASSESSMENT & PLAN ICD-10-CM 1. Third trimester ([facility]) Z34.93 2. 38 weeks gestation of ([facility]) Z3A.38 POCT urinalysis dipstick manually resulted Return [...] behalf of: SENDY Fan documented in this encounterSSM Health Cardinal Glennon Children's HospitalEpweomteft06-66-3990 History of Present illness Narrative* Nissa Matt LPN - 06/12/2025 9:40 AM EDT Reason for Appointment: Patient ID: Chente Gonzalez is a 29 y.o. female who presents for Routine Visit Patient presents today for Return OB appointment. MEDICATIONS Current Outpatient Medications Medication Instructions Alcohol Swabs (Alcohol Prep Pad) 70 % pads 1 Pad, Topical, Daily, Use four times daily to check FSBS. Blood Glucose Monitoring Suppl ([employer] Glucometer) w/Device kit 1 kit, Does not [...] nursing note reviewed. Exam conducted with a postmaster relief present. Vitals: Estimated body mass index is 37.61 kg/m as calculated from the following: Height as of 12/01/20: 5' 5 . Weight as of this encounter: 226 lb. BP: 128/72 Patient's last menstrual period was 10/04/2024 (approximate). ASSESSMENT & PLAN ICD-10-CM 1. Third trimester ([facility]) Z34.93 POCT urinalysis dipstick manually resulted 2. 37 weeks gestation of ([facility]) Z3A.37 Patient presents today for a routine [...] surgical history on file. [facility]SS[facility] [id number] History of Present illness Narrative* Willy Avila [...] nursing note reviewed. Exam conducted with a postmaster relief present. Vitals: Estimated body mass index is 37.28 kg/m as calculated from the following: Height as of 12/01/20: 5' 5 . Weight as of this encounter: 224 lb. BP: 126/80 Patient's last menstrual period was 10/04/2024 (approximate). ASSESSMENT & PLAN ICD-10-CM 1. 35 weeks gestation of ([facility]) Z3A.35 POCT urinalysis dipstick manually resulted 2. Third trimester ([facility]) Z34.93 CULTURE, GROUP B STREP WITH SUSCEPTIBLITY [...] of: Willy Avila NP documented in this encounterSS[facility] [id number] History of Present illness Narrative* SENDY Fan [...] to check FSBS. Blood Glucose Monitoring Suppl ([employer] Glucometer) w/Device kit 1 kit, Does not [...] PLAN ICD-10-CM 1. 33 weeks gestation of ([facility]) Z3A.33 POCT urinalysis dipstick manually resulted 2. Third trimester [facility] [place] Z34.93 POCT urinalysis dipstick manually resulted 3. Gestational diabetes mellitus (GDM), antepartum, gestational diabetes method of control unspecified ([facility]) O24.419 Return OB: Patient presents today for [...] behalf of: SENDY Fan documented in this encounterSSM Health Cardinal Glennon Children's [id number] History of Present illness Narrative* Rahel Pendleton [...] to check FSBS. Blood Glucose Monitoring Suppl (V[employer]ampo Glucometer) w/Device kit 1 kit, Does not [...] nursing note reviewed. Exam conducted with a postmaster relief present. Vitals: Estimated body mass index is 35.01 kg/m as calculated from the following: Height as of 12/01/20: 5' 5 . Weight as of this encounter: 210 lb 6.4 oz. BP: 120/70 Patient's last menstrual period was 10/04/2024 (approximate). ASSESSMENT & PLAN ICD-10-CM 1. 31 weeks gestation of ([facility]) Z3A.31 POCT urinalysis dipstick manually resulted 2. Third trimester ([facility]) Z34.93 POCT urinalysis dipstick manually resulted 3. Gestational diabetes mellitus (GDM), antepartum, gestational diabetes method of control unspecified ([facility]) O24.419 US biophysical profile w non stress [...] of: Jaspreet Adams DO documented in this encounterSSM Health Cardinal Glennon Children's [id number] History of Present illness Narrative* SENDY Fan [...] ASSESSMENT & PLAN ICD-10-CM 1. Third trimester ([facility]) Z34.93 POCT urinalysis dipstick manually resulted 2. 29 weeks gestation of ([facility]) Z3A.29 POCT urinalysis dipstick manually resulted Return [...] behalf of: SENDY Fan documented in this encounterSSM Health Cardinal Glennon Children's [id number] History of Present illness Narrative* Nissa Matt LPN - 04/03/2025 10:40 AM EDT Reason for [...] nursing note reviewed. Exam conducted with a postmaster relief present. Vitals: Estimated body mass index is 33.35 kg/m as calculated from the following: Height as of 12/01/20: 5' 5 . Weight as of this encounter: 200 lb 6.4 oz. BP: 130/72 Patient's last menstrual period was 10/04/2024 (approximate). ASSESSMENT & PLAN ICD-10-CM 1. Second trimester ([facility]) Z34.92 Urine dip 2. 27 weeks gestation of ([facility]) Z3A.27 Urine dip Patient presents today for a routine obstetrics appointment. Patient is currently 27w2d with a Estimated Date of Delivery: 07/01/25. Patient brought in FSBS logs for review and patient still desires to hold off on [facility] referral at this time, referral was previously sent on 03/24/25 and when c ontacted by [facility] patient will inform them that she will postpone scheduling at this time. Patient toreturn to clinic in 2 weeks for routine OB appointment. Documented by Nissa Matt LPN on behalf of: Jaspreet Adams DO documented in this encounterSSM Health Cardinal Glennon Children's [id number] History of Present illness Narrative* Rahel Pendleton [...] nursing note reviewed. Exam conducted with a postmaster relief present. Vitals: Estimated body mass index is 31.62 kg/m as calculated from the following: Height as of 21: 5' 5 . Weight as of this encounter: 190 lb. BP: 128/78 Patient's last menstrual period was 10/04/2024 (approximate). ASSESSMENT & PLAN ICD-10-CM 1. Second trimester ([facility]) Z34.92 POCT urinalysis dipstick manually resulted 2. 23 weeks gestation of ([facility]) Z3A.23 3. Diabetes mellitus screening Z13.1 CBC Glucose tolerance, 1 hour CBC Glucose tolerance, 1 hour 4. Well woman exam with routine gynecological exam Z01.419 Pap Smear Return OB/Annual Exam: Patient presents today for a annual exam/routine obstetrics appointment. Patient is currently 22i3wumwtnyac. Patient states she is doing well but [...] of: Jaspreet Adams DO documented in this encounterSSM Health Cardinal Glennon Children's [id number] History of Present illness Narrative* Willy Avila, WILLIE - 01/29/2025 10:20 AM EDT Reason for [...] nursing note reviewed. Exam conducted with a postmaster relief present. Vitals: Estimated body mass index is [...] of: Willy Avila NP documented in this encounterSSM Health Cardinal Glennon Children's [id number] History of Present illness Narrative* Kalyn Jacob [...] by: Kalyn Jacob MA documented in this encounterSSM Health Cardinal Glennon Children's [id number] History of Present illness Narrative* Nissa Matt [...] nursing note reviewed. Exam conducted with a postmaster relief present. Vitals: Estimated body mass index is [...] ultrasound. Patient given proof of to turn [facility] Medicaid Insurance. Documented by Nissa Matt LPN on behalf of: Jaspreet Adams DO documented in this encounterNOMS HealthcareEvaluation noteNo assessment information availableSelect Medical [facility] Work Phone: Evaluation note* Diagnosis Hyperemesis [...] note* Diagnosis Third trimester ([facility]) state, incidental 38 weeks gestation of ([facility]) documented in this encounter [facility] HealthcareInstructionsNot on filedocumented in this encounterProGuernsey Memorial Hospital System Summary Purpose Family History [...] section and content) DATE CREATED AUTHOR 06/25/2019 [facility] DATE CREATED AUTHOR AUTHOR'S ORGANIZ ATION 06/07/2022 [facility] DATE CREATED AUTHOR AUTHOR'S ORGANIZ ATION 01/09/2025 [facility] DATE CREATED AUTHOR AUTHOR'S ORGANIZ ATION 06/20/2025 [facility] EPIC Care Teams (unrecognized [...] (unrecogniz ed section and content) ReasonCommentsFollow-upReasonCommentsAmenorrheaReasonCommentsRoutine VisitReasonCommentsRoutine Wodsr93p 6d FOR RECORDS PERTAINING TO PATIENTS WHO [...] BE BASED ON THE PRIMARY CLINICAL RECORDS. [facility]Photo[facility]. provides no warranty or guarantee of the accuracy or completeness of information in this document.
== END 2025-06-23 11:01 | disposition home or self-care (01) ==
LOC: US 10:00 → FBC 10:09
PROVIDERS: Visit Provider Obstetrics & Gynecology
DX: O24.419 Gestational diabetes mellitus in pregnancy, unspecified control (principal); Z3A.38 38 weeks gestation of pregnancy
CPT/HCPCS: 76818

== ENCOUNTER 2025-06-26 11:02 | Outpatient (OUT) | payer OTHER, SELFPAY ==
--- OUTSIDE RECORDS SUMMARY | 2025-06-12 09:40 | XMS_ITS | Encounter Summary ---
Author Organization [facility] Address [address] [place] [address] Care Team Providers Care Biomass Plant Manager Name Role Phone Unavailable Primary Care Provider Unavailabl e Reason for Visit * ReasonCommentsRoutine Visit Encounter Details DateTypeDepartmentCare Team (Latest Contact Info)Djkfvvcsxtt41/16/2025 9:40 AM EDTRoutine NOMFerny [facility] [address] [place] [address] Jaspreet Adams DO [address] [place] [address] Third trimester ([facility]); 37 weeks gestation of ([facility]) Social History Tobacco UseTypesPacks/DayYears UsedDateSmoking Tobacco: Never AssessedPHQ-2 AnswerDate RecordedPatient Health Questionnaire-2 [id number] Estimated Date of OsejiiqjOzinqbouCgc01/04/2025ased on UltrasoundSex and Gender InformationValueDate RecordedSex Assigned at KkzqtTqsvst17/27/2025 5:56 PM EDT Legal KobVkbobf11/15/2023 7:00 PM EDTGender AvtvgywnQlfgsl27/27/2025 5:56 PM EDT Sexual OrientationNot on filedocumented as of this encounter Last Filed Vital Signs Vital SignReadingTime TakenCommentsBlood Kojepzmd330/7206/12/2025 9:50 AM EDT Pulse--Temperature--Respiratory Rate--Oxygen Saturation--Inhaled Oxygen Concentration--Mjrgrq259 kg (226 lb)06/12/2025 9:50 AM EDTHeight--Body Mass Index37.6104 12:00 PM EDTdocumented in this encounter Progress Notes * Nissa Matt LPN - 06/12/2025 9:40 AM EDT Reason for Appointment: Patient ID: Chente Gonzalez is a 29 y.o. female who presents for Routine Visit Patient presents today for Return OB appointment. MEDICATIONS Current Outpatient Medications Medication Instructions Alcohol Swabs (Alcohol Prep Pad) 70 % pads 1 Pad, Topical, Daily, Use four times daily to check FSBS. Blood Glucose Monitoring Suppl ([employer] Glucometer) w/Device kit 1 kit, Does not [...] Vitamin (multivitamin) tablet 1 tablet, Daily ALLERGIES Allergies[1] PROBLEMS Active Ambulatory Problems Diagnosis Date Noted No Active Ambulatory Problems Resolved Ambulatory Problems Diagnosis Date Noted No Resolved Ambulatory Problems No Additional Past Medical History HISTORY PAST MEDICAL HISTORY SOCIAL HISTORY Medical History[2] Social History Tobacco Use Smoking status: Not on file Smokeless tobacco: Not on file Substance Use Topics Alcohol use: Not on file Drug use: Not on file FAMILY HISTORY Family History[3] SURGICAL HISTORY Surgical History[4] REVIEW OF SYSTEMS Review of Systems: Review [...] nursing note reviewed. Exam conducted with a corporate legal manager present. Vitals: Estimated body mass index is 37.61 kg/m?? as calculated from the following: Height as of 12/01/20: 5' 5 . Weight as of this encounter: 226 lb. BP: 128/72 Patient's last menstrual period was 10/04/2024 (approximate). ASSESSMENT & PLAN ICD-10-CM 1. Third trimester ([facility]) Z34.93 POCT urinalysis dipstick manually resulted 2. 37 weeks gestation of ([facility]) Z3A.37 Patient presents today for a routine obstetrics appointment. Patient is currently 37w2d with a Estimated Date of Delivery: 07/01/25. Return to clinic in 1 week. Documented by Nissa Matt LPN on behalf of: Jaspreet Adams DO [1] Allergies Allergen Reactions Penicillin G Unknown Penicillins Other Reaction(s): Unknown [2] No past medical history on file. [3] No family history on file. [4] No past surgical history on file. documented in this encounter Plan of Treatment DateTypeDepartmentCare Team (Latest Contact Info)Udtbkowjyql29/16/2025 10:30 AM ESTPostpartum Visit [facility] [address] [place] [address] Deyanira Martinez PA [address] [place] [address] documented as of this encounter Procedures Procedure NamePriorityDate/TimeAssociated DiagnosisCommentsPOCT URINALYSIS OGMAXAFXLpfixfd75/16/2025 9:56 AM EDT Third trimester ([facility]) documented in this encounter Results * (ABNORMAL) POCT urinalysis dipstick manually resulted (06/12/2025 9:56 AM EDT) ComponentValueRef RangeTest MethodAnalysis TimePerformed AtPathologist SignatureColor, UAYellowClarity, UAClearGlucose, UANegativeNegative - 1999(110) ++++ mg/dLBilirubin, UANegativeNegative - 4(70) +++ mg/dLKetones, UA NegativeNegative - 160(16) ++++ mg/dLSpec Grav, UA1.0201 - 1.03Blood, UA PositiveNegative - 50 Derick/mcLComment:TracepH, UA6.05 - 9Protein, UAPositive Negative - 2000(20) ++++ mg/dLComment:TraceUrobilinogen, UA0.20.2 - 12 mg/dL Leukocytes, UANegativeNegative - 500+++ Julio/mcLNitrite, UANegativeNegative - PositiveSpecimen (Source)Anatomical Location / LateralityCollection Method / VolumeCollection TimeReceived OcssYlqms55/16/2025 9:56 AM EDT Narrative Authorizing ProviderResult TypeResult StatusCorey Angie DOPOINT OF CARE TEST ENTER/EDIT ORDERABLESFinal Result documented in this encounter Visit Diagnoses Diagnosis Third trimester ([facility]) state, incidental 37 weeks gestation of ([facility]) documented in this encounter
--- OUTSIDE RECORDS SUMMARY | 2025-06-19 09:40 | XMS_ITS | Encounter Summary ---
Author Organization [facility] Address [address] [address] Care Team Providers Care Woolen Tester Name Role Phone Unavailable Primary Care Provider Unavailabl e Reason for Visit * ReasonCommentsRoutine Visit Encounter Details DateTypeDepartmentCare Team (Latest Contact Info)Lvgwnbjfmau63/23/2025 9:40 AM EDTRoutine [facility] [address] [place] [phone] Deyanira Martinez PA [address] [place] [address] Third trimester ([facility]); 38 weeks gestation of ([facility]) Social History Tobacco UseTypesPacks/DayYears UsedDateSmoking Tobacco: Never AssessedPHQ-2 AnswerDate RecordedPatient Health Questionnaire-2 Ddcvs846 Estimated Date of NfbuzyxzFfkszrbuVio68/04/2025ased on UltrasoundSex and Gender InformationValueDate RecordedSex Assigned at AsccsUjbdti18/27/2025 5:56 PM EDT Legal FnvGclmez04/15/2023 7:00 PM EDTGender CqajcwrqBcocup91/27/2025 5:56 PM EDT Sexual OrientationNot on filedocumented as of this encounter Last Filed Vital Signs Vital SignReadingTime TakenCommentsBlood Tpcgipfx158/7006/19/2025 10:26 AM EDT Pulse--Temperature--Respiratory Rate--Oxygen Saturation--Inhaled Oxygen Concentration--Qjzsdp727 kg (228 lb)06/19/2025 10:26 AM EDTHeight--Body Mass [...] to check FSBS. Blood Glucose Monitoring Suppl ([employer] Glucometer) w/Device kit 1 kit, Does not [...] ([facility]) Z34.93 2. 38 weeks gestation of ([facility]) Z3A.38 POCT urinalysis dipstick manually resulted [...] Plan of Treatment DateTypeDepartmentCare Team (Latest Contact Info)Wzyfnufzbab56/16/2025 10:30 AM ESTPostpartum Visit [facility] [address] [place] [phone] Deyanira Martinez PA [address] [place] [address] documented as of this encounter Procedures Procedure NamePriorityDate/TimeAssociated DiagnosisCommentsPOCT URINALYSIS PAVZEBUZUubgigb11/23/2025 10:26 AM EDT 38 weeks gestation of ([facility]) documented in this encounter Results * [...] / LateralityCollection Method / VolumeCollection Time Received IoahNrrxz98/23/2025 10:26 AM EDT Narrative Authorizing ProviderResult TypeResult StatusLifePoint Health TEST ENTER/EDIT ORDERABLESFinal Result documented in this encounter Visit Diagnoses Diagnosis Third trimester ([facility]) state, incidental 38 weeks gestation of ([facility]) documented in this encounter
--- OUTSIDE RECORDS SUMMARY | 2025-06-26 09:20 | XMS_ITS | Encounter Summary ---
Author Organization [facility] Address [address] [facility] [facility] [place] [address] Care Team Providers Care Mainspring Torque Tester Name Role Phone Unavailable Primary Care Provider Unavailabl e Reason for Visit * ReasonCommentsRoutine Visit Encounter Details DateTypeDepartmentCare Team (Latest Contact Info)Jgxoniwurzo08/30/2025 9:20 AM EDTRoutine [facility] [address] [place] [phone] Deyanira Martinez PA [address] [place] [address] 39 weeks gestation of ([facility]); Third trimester ([facility]) Social History Tobacco UseTypesPacks/DayYears UsedDateSmoking Tobacco: Never AssessedPHQ-2 AnswerDate RecordedPatient Health Questionnaire-2 Otdke005 Estimated Date of VwqrvxbuHdpjrammGlr66/04/2025ased on UltrasoundSex and Gender InformationValueDate RecordedSex Assigned at YxbzdOgnvmx80/27/2025 5:56 PM EDT Legal NkpTzfwdb80/15/2023 7:00 PM EDTGender WpwidrvqWaknkq06/27/2025 5:56 PM EDT Sexual OrientationNot on filedocumented as of this encounter Last Filed Vital Signs Vital SignReadingTime TakenCommentsBlood Hakkiaxx720/801 9:45 AM EDT Pulse--Temperature--Respiratory Rate--Oxygen Saturation--Inhaled Oxygen Concentration--Cencrw074 kg (233 lb 12.8 oz)06/26/2025 9:45 AM EDTHeight--Body Mass Index38.9104 12:00 PM EDTdocumented in this encounter Plan of Treatment DateTypeDepartmentCare Team (Latest Contact Info)Akmwfdfrwbm59/16/2025 10:30 AM ESTPostpartum Visit [facility]BGYCarlos Alberto [address] [place] [phone] Deyanira Martinez PA [address] [place], [place] [phone] documented as of this encounter Procedures Procedure NamePriorityDate/TimeAssociated DiagnosisCommentsPOCT URINALYSIS RIYOVLJIWzqmlgs18/30/2025 9:55 AM EDT 39 weeks gestation of ([facility]) Third trimester ([facility]) documented in this encounter Results * [...] / LateralityCollection Method / VolumeCollection Time Received PunuEklhq80/30/2025 9:55 AM EDT Narrative Authorizing ProviderResult TypeResult StatusDeyanira Martinez PAPOINT OF CARE TEST ENTER/EDIT ORDERABLESFinal Result documented in this encounter Visit Diagnoses Diagnosis 39 weeks gestation of ([facility]) Third trimester ([facility]) state, incidental documented in this encounter
--- OUTSIDE RECORDS SUMMARY | 2025-06-26 11:05 | XMS_ITS | Encounter Summary ---
Author Organization [facility] Address [address] [place] [address] Care Team Providers Care Acute Care Surgeon Name Role Phone Unavailable Primary Care Provider Unavailabl e Encounter Details DateTypeDepartmentCare Team (Latest Contact Info)Nnbdpilszze00/16/2025Bamboo flowsheet NOM[facility]y [facility] [address] [place] [place] [address] Jaspreet Adams DO [address] [place] [address] Social History Tobacco UseTypesPacks/DayYears UsedDateSmoking Tobacco: Never AssessedPHQ-2 AnswerDate RecordedPatient Health Questionnaire-2 Yuwuz820 Estimated Date of VywqqcsvDmydzcgsUvp53/04/2025Based on UltrasoundSex and Gender InformationValueDate RecordedSex Assigned at UkhhlSxnewu99/27/2025 5:56 PM EDT Legal TebFzyjne18/15/2023 7:00 PM EDTGender DbhljufyMzrflc31/27/2025 5:56 PM EDT Sexual OrientationNot on filedocumented as of this encounter Plan of Treatment DateTypeDepartmentCare Team (Latest Contact Info)Quhwclxursq19/16/2025 10:30 AM ESTPostpartum Visit NOMFerny [facility] [address] [place] [address] Deyanira Martinez PA [address] [place] [address] documented as of this encounter Visit Diagnoses Not on filedocumented in this encounter
--- OUTSIDE RECORDS SUMMARY | 2025-06-26 11:05 | XMS_ITS | Encounter Summary ---
Author Organization [facility] Address [address] [facility] [place] [address] Care Team Providers Care Guest Relations Receptionist Name Role Phone Unavailable Primary Care Provider Unavailabl e Encounter Details DateTypeDepartmentCare Team (Latest Contact Info)Zizwilzvpxx64/30/2025Bamboo flowsheet NOM[facility]y [facility]ARGAS [address] [place] [place] [address] Deyanira Martinez PA [address] [place] [address] Social History Tobacco UseTypesPacks/DayYears UsedDateSmoking Tobacco: Never AssessedPHQ-2 AnswerDate RecordedPatient Health Questionnaire-2 Jwxoo947 Estimated Date of WouwfflvUxnkmzkmSsj09/04/2025Based on UltrasoundSex and Gender InformationValueDate RecordedSex Assigned at CouyjOhzxbb37/27/2025 5:56 PM EDT Legal CcbCcaaqy72/15/2023 7:00 PM EDTGender ClxpjrwbWvkkzs86/27/2025 5:56 PM EDT Sexual OrientationNot on filedocumented as of this encounter Plan of Treatment DateTypeDepartmentCare Team (Latest Contact Info)Qdmuhcfwztm16/16/2025 10:30 AM ESTPostpartum Visit [facility] [address] [place] [address] Deyanira Martinez, PA [address] [place], [facility] documented as of this encounter Visit Diagnoses Not on filedocumented in this encounter
--- OUTSIDE RECORDS SUMMARY | 2025-06-26 11:05 | XMS_ITS | Encounter Summary ---
Author Organization [facility] Address [address] [place] [address] Care Team Providers Care Biofuels Plant Superintendent Name Role Phone Unavailable Primary Care Provider Unavailabl e Encounter Details DateTypeDepartmentCare Team (Latest Contact Info)Qmdvjwrfgqb55/28/2025Patient Outreach [facility] [address] [place] [address] Deyanira Phillips LPN [address] [place] [address] Social History Tobacco UseTypesPacks/DayYears UsedDateSmoking Tobacco: Never AssessedPHQ-2 AnswerDate RecordedPatient Health Questionnaire-2 Dzqxp326 Estimated Date of KdsaduvcAqfvlrbqYvh65/04/2025Based on UltrasoundSex and Gender InformationValueDate RecordedSex Assigned at ZufwzHwnnfo94/27/2025 5:56 PM EDT Legal ZndBpkjwu68/15/2023 7:00 PM EDTGender IrnqgbjrNntvgg34/27/2025 5:56 PM EDT Sexual OrientationNot on filedocumented as of this encounter Progress Notes * Deyanira Phillips LPN - 06/24/2025 10:08 AM EDT Monthly Outreach. Call to pt X2, LVM. documented in this encounter Plan of Treatment DateTypeDepartmentCare Team (Latest Contact Info)Envpbitbvor28/16/2025 10:30 AM ESTPostpartum Visit [facility] [address] [place] [address] Deyanira Martinez PA [address] [place] [address] documented as of this encounter Visit Diagnoses Not on filedocumented in this encounter
--- OUTSIDE RECORDS SUMMARY | 2025-06-26 11:05 | XMS_ITS | Clinical Summary ---
Author Organization [facility] Address [id number] [address] [place] [address] Care Team Providers Care Metal Bonding Press Operator Name Role Phone Unavailable Primary Care Provider Unavailabl e Encounters DateTypeDepartmentCare YwkxUfmfmutfhtx06/01/2025bstract Maternal- Medicine at [facility] [address] [place] [address] External, Scanning Provider 03/28/2025Orders Only Maternal- Medicine at [facility] [address] [place] [id number] Domenica Ahmadi, PLATFORM SUPERVISOR from Last 3 Months Social History Tobacco UseTypesPacks/DayYears UsedDateSmoking Tobacco: Never Assessed Estimated Date of RzlkzwasZojeeaunZes16/04/2025ased on UltrasoundSex and Gender InformationValueDate RecordedSex Assigned at BirthNot on fileLegal SexFemale 03/26/2025 9:06 AM EDTGender IdentityNot on fileSexual OrientationNot on file Plan of Treatment Health MaintenanceDue DateLast DoneCommentsDepression Owlkrpiys11/11/2010Tobacco Wnnubbmrm68/11/2010dult BMI Mqqfrmvci05/11/2016DTaP,Tdap and Td Vaccines (1 - Tdap)2016Pap Smear2018Influenza Vwbjisc6704/28/2025 Medical Devices Not on file
--- OUTSIDE RECORDS SUMMARY | 2025-06-26 11:05 | XMS_ITS | Encounter Summary ---
Author Organization [facility] Address [address] [facility] [place] [address] Care Team Providers Care Painter Tumbling Barrel Name Role Phone Unavailable Primary Care Provider Unavailabl e Encounter Details DateTypeDepartmentCare Team (Latest Contact Info)Iykpxamdawz11/23/2025Bamboo flowsheet [facility] [address] [place] [place] [address] Deyanira Martinez PA [address] [place] [address] Social History Tobacco UseTypesPacks/DayYears UsedDateSmoking Tobacco: Never AssessedPHQ-2 AnswerDate RecordedPatient Health Questionnaire-2 Cdbjp012 Estimated Date of YlnusrnvEpekkjwiVom10/04/2025Based on UltrasoundSex and Gender InformationValueDate RecordedSex Assigned at SmiosKzfqvd82/27/2025 5:56 PM EDT Legal OebVmfple70/15/2023 7:00 PM EDTGender JgsxsrlmBgcxze21/27/2025 5:56 PM EDT Sexual OrientationNot on filedocumented as of this encounter Plan of Treatment DateTypeDepartmentCare Team (Latest Contact Info)Mhcertfgqja79/16/2025 10:30 AM ESTPostpartum Visit [facility] [address] [place] [address] Deyanira Martinez, PA [address] [place], [facility] documented as of this encounter Visit Diagnoses Not on filedocumented in this encounter
--- OUTSIDE RECORDS SUMMARY | 2025-06-26 11:05 | XMS_ITS | Encounter Summary ---
Author Organization [facility] Address [address] [place] [address] Care Team Providers Care Production Laborer Name Role Phone Unavailable Primary Care Provider Unavailabl e Encounter Details DateTypeDepartmentCare Team (Latest Contact Info)Cspkywgdtsy99/27/2025linisync Result Encounter [facility] External Department Unsolicited Tyrell Adams DO [address] [place] [address] Social History Tobacco UseTypesPacks/DayYears UsedDateSmoking Tobacco: Never AssessedPHQ-2 AnswerDate RecordedPatient Health Questionnaire-2 Leyzn082 Estimated Date of VkjxpkayJxuddryyFsn98/04/2025Based on UltrasoundSex and Gender InformationValueDate RecordedSex Assigned at JfdvpWkrhuu54/27/2025 5:56 PM EDT Legal GjaHogxba86/15/2023 7:00 PM EDTGender OczmnsyaKmomov91/27/2025 5:56 PM EDT Sexual OrientationNot on filedocumented as of this encounter Plan of Treatment DateTypeDepartmentCare Team (Latest Contact Info)Dnfdwuwkejc05/16/2025 10:30 AM ESTPostpartum Visit [facility] [address] [place] [address] Deyanira Martinez PA [address] [place] [address] documented as of this encounter Procedures Procedure NamePriorityDate/TimeAssociated DiagnosisCommentsUS OB BPP W NON-JNKTDT0406/23/2025 10:45 AM EDT documented in this encounter Results * US OB BPP W NON-STRESS (06/23/2025 10:45 AM EDT)Anatomical Region LateralityModalityOtherSpecimen (Source)Anatomical Location / Laterality Collection Method / VolumeCollection TimeReceived Time06/23/2025 10:45 AM EDT Narrative 06/23/2025 10:48 AM EDT [facility] ?[address] ? [place], [facility]11 ? Ultrasound Report ? Signed ? Patient: CHERYL,CHENTE N ?MR#: [id number] ?? : 1995 ?Acct:[id number] ?? Age/Sex: 29 / F ?ADM Date: 06/23/25 ?? Loc: [facility] ??250-1 ? Attending Dr: Tyrell Adams D.O. ? Ordering Physician: Tyrell Adams D.O. ?? Date of Service: 06/23/25 ?? Procedure(s): US OB BPP w non-stress ?? Accession Number(s): [id number] ? cc: Tyrell Adams D.O.; Physician,Non-Staff M.D. ? [facility] ? [address] ? [place] [address] ? Patient Name: ?? CHENTE GONZALEZ ? MRN: [facility]:[id number] ? date: 1995 ?Sex: F ?? Assigned Patient Location: US ?? Current Patient Location: US ?? Accession/Order Number: [id number] ?? Exam Date: 06/23/2025 ??10:03 ?Report Date: 06/23/2025 ??10:45 ? At the request of: ?? TYRELL ??ANGIE ??DO ? Procedure: ??US OB BPP w non-stress ? BIOPHYSICAL PROFILE: ? CLINICAL INFORMATION: Gestational diabetes mellitus ? COMPARISON: 06/16/2025 ? There is a single live intrauterine gestation in cephalic presentation. ??The ?? reported gestational age is 38 weeks 6 days. ??The heart rate lqeweaui831 ?? beats per minute. ? FINDINGS: ? TONE: 1 or more episodes of activity extension and flexion of ?? extremity or opening and closing of the hand ?[Y] ? 2/2 ?? GROSS BODY MOVEMENTS: 3 or more discrete body or limb movements ?[Y] ? 2/2 ?? BREATHING MOVEMENTS: 1 or more episodes of breathing lasting at ?? least 30 seconds ? [Y] ? 2/2 ?? DOYLE: A single deepest vertical pocket of amniotic fluid greater than 2 cm ? [Y] ? 2/2 ?DOYLE: 7.0 cm . The 5th percentile 7.2 cm. ? Total score: ? 8/8 ? US/US OB BPP w non-stress ?? IMPRESSION: ? NORMAL BIOPHYSICAL PROFILE. ? BORDERLINE OLIGOHYDRAMNIOS. ? Impression dictated by: Rahel Mae M.D. ??06/23/2025 10:45 AM ? Dictation Location: RADIO-PC-02 ? Electronically authenticated by: [id number] ??Y ?? Date: 06/23/2025 ??10:45 ? Dictated By: ?Rahel Mae M.D. ? Signed By: ?10/27/25 1048 ? DD/ 1045 ? TD/TT: ? Credit Collections Rep: Procedure Note Radiology, Radiologist, MD - 06/23/2025 [place] [address] Ultrasound Report Signed Patient: CHENTE GONZALEZ NMR#: [id number] : 1995Acct:[id number] Age/Sex: Date: 06/23/25 Loc: [facility] 250-[address]: Tyrell Adams D.O. Ordering Physician: Tyrell Adams D.O. Date of Service: 06/23/25 Procedure(s): US OB BPP w non-stress Accession Number(s): [id number] cc: Tyrell Adams D.O.; Physician,Non-Staff M.Tony The [address] [address] Patient Name: CHENTE GONZALEZ MRN: [id number] date: 1995 Sex: F Assigned Patient Location: US Current Patient Location: [place] Accession/Order Number: [id number] Exam Date: 06/23/2025 10:03 Report Date: 06/23/2025 10:45 At the request of: TYRELL ADAMS DO Procedure: US OB BPP w non-stress BIOPHYSICAL PROFILE: CLINICAL INFORMATION: Gestational diabetes mellitus COMPARISON: 06/16/2025 There is a single live intrauterine gestation in cephalic presentation.The reported gestational age is 38 weeks 6 days. The heart ozqxxanlhwmv990 beats per minute. FINDINGS: TONE: 1 or [...] greater than 2 cm [Y] 2/2 DOYLE: 7.0 cm . The 5th percentile 7.2 cm. Total score: 8/8 US/US OB BPP w non-stress IMPRESSION: NORMAL BIOPHYSICAL PROFILE. BORDERLINE OLIGOHYDRAMNIOS. Impression dictated by: Rahel Mae M.D. 06/23/2025 10:45 AM Dictation Location: [place] [address] Electronically authenticated by: [id number] Y Date: 0:45 Dictated By: Rahel Mae M.D. Signed By:06/23/25 1048 DD/ 1045 TD/TT: Credit Collections Rep: Authorizing ProviderResult TypeResult StatusCorey Angie DOCLINISYNC IMAGINGFinal Result documented in this encounter Visit Diagnoses Not on filedocumented in this encounter
--- OUTSIDE RECORDS SUMMARY | 2025-06-26 11:05 | XMS_ITS ---
Author Organization [facility] Source Produ ction (ClinicalSummary Clone) Address Unknown Care Team Providers Care Showroom Executive Director Name Role Phone Unavailable Primary Care Physician Unavailab le Results * [UNITY] ANEUPLOIDY NIPT Performed by: SocialVolt Component Value Range Date Fraction 5.6% 02/06/2025 10:43 pm UTCRh(D) NIPTRhD YYFBXNAQ27/12/2025 10:43 pm UTCSex Chromosome AneuploidyNOT QHADJRDG71/12/2025 10:43 pm UTCMonosomy XLOW RISK <1 in 10:43 pm UTCTrisomy 13LOW RISK <1 in , 10:43 pm UTCTrisomy 18LOW RISK <1 in , 10:43 pm UTCTrisomy 21LOW RISK <1 in , 10:43 pm UTCFetal HzmQRWHNH41/12/2025 10:43 pm UTCPregnancy ZfdhlewseVZFVGBEMQ55/12/2025 10:43 pm UTCFor detailed report, see PDFSee PDF 02/06/2025 10:43 pm UTC02/06/2025 10:43 pm UTC Social History Observation Value Start Date End Date
--- OUTSIDE RECORDS SUMMARY | 2025-06-26 11:06 | XMS_ITS | CCD ---
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 Patient Name: CHENTE GONZALEZ MRN: [id number] date: 1995 Sex: F Assigned Patient Location: [facility] Current Patient Location: [facility] Accession/Order Number: [id number] Exam Date: 05/19/2025 10:15 Report Date: 05/19/2025 [...] Mae M.D. 05/19/2025 10:54 AM D[facility]ation [facility] Electronically authenticated by: [id number] Y Date: 05/19/2025 10:54 Dictated By: Rahel Mae M.D. Signed By: 05/19/25 1056 DD/ 1054 TD/TT: Expanded Function Dental Assistant:TBHRadiology, Radiologist, - 05/19/2025 [place] [address] Ultrasound Report Signed Patient: CHENTE GONZALEZ MR#: [id number] : 1995 Acct:[id number] Age/Sex: 29 / F ADM Date: 05/19/25 Loc: [facility] 250-[address]: Jaspreet Adams D.O. Ordering Physician: Jaspreet Adams D.O. Date of Service: 05/19/25 Procedure(s): US OB BPP w non-stress Accession Number(s): [id number] cc: Jaspreet Adams D.O.; Physician,Non-Staff Alejandra The [address] [address] Patient Name: CHENTE GONZALEZ MRN: [facility]:[id number] date: 1995 Sex: F Assigned Patient Location: [facility] Current Patient Location: [facility] Accession/Order Number: [id number] Exam Date: 05/19/2025 10:15 Report Date: 05/19/2025 [...] Mae M.D. 05/19/2025 10:54 AM Dictation Location: [place] [address] Electronically authenticated by: [id number] Y Date: 05/19/2025 10:54 Dictated By: Rahel Mae M.D. Signed By: 05/19/25 1056 DD/ 1054 TD/TT: Expanded Function Dental Assistant: MATTIE HealthcareRadiology Study observation (narrative)MATTIE ProUS OB BPP W NON-STRESSOrdered By: Radiologist Radiology on 87-68-9269CXTK Healthcare Work Phone: Urinalysis macro (dipstick) panel [...] HealthcareNOMS HealthcareUS OB FOLLOW UP TRANSABDOMINAL APPROACHon 50-33-0866PE OB FOLLOW UP TRANSABDOMINAL APPROACHA single, live [...] menstrual period. TRANSCRIBED BY: ELECTRONICALLY SIGNED BY: Brooke QuinterosalNot AvailableComment on above:Order Comment: US OB SCAN FOR GROWTH Estimated Date of Delivery: 07/01/25 Gestational Age as of 04/17/2025: 77w3rFnrywjsbmu macro (dipstick) panel (U)on 37-31-5863Amsgxdeau, UANegativeNegative - 4(70) +++ mg/dLNOMS HealthcareBlood, UAPositiveNegative [...] mg/dLNOMS HealthcareNOMS HealthcareUrinalysis macro (dipstick) panel (U)on 94-75-3326Wsjlyjljq, UA NegativeNegative - 4(70) +++ mg/dLNOMS HealthcareBlood, [...] mg/dLNOMS HealthcareNOMS HealthcareUrinalysis macro (dipstick) panel (U)on 34-69-7535Oyealrifn, UANegativeNegative - 4(70) +++ mg/dLNOMS HealthcareBlood, UAPositiveNegative - 50 Derick/mcLNOMS HealthcareClarity, UAClear NOMS HealthcareColor, UAYellowNOMS HealthcareGlucose, UANegativeNegative - 2000(110) ++++ mg/dLNOMS HealthcareInterpretation and review of laboratory resultsAbnormalNONV HealthcareKetones, UANegativeNegative - 160(16) ++++ mg/dL NOMS HealthcareLeukocytes, UANegativeNegative - 500+++ Julio/mcLNOMS Healthcare Nitrite, UANegativeNegative - PositiveNOMS HealthcarepH, UA6.55 - 9NOMS HealthcareProtein, UANegativeNegative - 2000(20) ++++ mg/dLNOMS HealthcareSpec Grav, UA1.0151 - 1.03NOMS HealthcareUrobilinogen, UA1.00.2 - 12 mg/dLNOMS HealthcareNOMS HealthcareGLUCOSE TOLERANCE 3 HOURon 94-42-0188NTORWMR TOLERANCE 3 HOURHighmg/dLNOMS HealthcareComment on above:GLU FAST 86 (<95) Col: 03/21/25 0856 GLU 1HR 181H (<180) Col: 03/21/25 1002 GLU 2HR 162H (<155) Col: 03/21/25 1102 GLU 3HR 75 (<140) Col: 03/21/25 1202 Interpretation and review of laboratory resultsAbnormalGUNNISON VALLEY [facility]ITAL HealthcareCLINISYNC NOMS HealthcareUS OB LIMITED 1+ FETUSESon 72-67-6813ML OB LIMITED 1+ FETUSES EXAM: US OB [...] II, MD, PHD at 21-Mar-2025 08:31:03 AM [facility] TeleradiologyNormalNot AvailableComment on above:Order Comment: US OB INCOMPLETE ANATOMY Estimated Date of Delivery: 07/01/25 Gestational Age as of 02/24/2025: 88j5oDKM,APTIMA HPV,AGE GDLNon 13-59-0900VAJ GDLN ACOG TESTINGNote.NOMS HealthcareComment on above:TESTS RESULT FLAG UNITS REF RANGE LAB Clinician Provided Cytology Information Source.............[employer] Other.............. No. of containers..01 ThinPrep Vial Age Brjiesh LIANET Mandie... FLAG LEGEND: L-Low Normal,H-High Normal,LL-Alert Low,HH-Alert High <-Panic Low,>-Panic High,A-Abnormal,AA-Critical Abnormal Performed at: 01 =[facility] [address] Mckenna Polanco MD, IGP, RFX APTIMA HPV ASCUNote.NOM HealthcareComment on above:TESTS RESULT FLAG UNITS REF RANGE LAB DIAGNOSIS: 02 NEGATIVE FOR INTRAEPITHELIAL LESION OR MALIGNANCY. Specimen adequacy: 02 Satisfactory for evaluation. No endocervical component is identified. Performed by: 02 Vernell Pineda, Rfid Systems Engineer (ASC) . 02 Note: Note 02 The Pap [...] <-Panic Low,>-Panic High,A-Abnormal,AA-Critical Abnormal Performed at: [address] [address] Mckenna Polanco MD, Performed at: =G - [facility] [address] [id number] Outside Medical Sales Representative: Mckenna Polanco MD, Phone: [phone] Performed at: - [facility] [id number] Outside Medical Sales Representative: Mckenna Polanco MD, Phone: [phone] SPATULA-ALONE ENDOCERVIX CLINISYNCNONV HealthcareGLUCOSE 1 HOURon 14-44-8418Ijluoug [Mass/Vol]141 mg/dL HighNINF - 130 mg/dLNONV HealthcareInterpretation and review of laboratory resultsAbnormalNONV HealthcareCLINISYNCGlucose tolerance, 1 houron 03-06-2025 Glucose Tolerance Test [address] [place], [place] [address]No Panel Informationon 03-26-6717NLZX HealthcareUrinalysis macro (dipstick) panel (U)on 03-05-2025 Bilirubin, UANegativeNegative - 4(70) +++ mg/dLNOMS HealthcareBlood, UANegative Negative - 50 Derick/mcLNONV HealthcareClarity, UAClearNOMS HealthcareColor, UA YellowNONV HealthcareGlucose, UANegativeNegative - 2000(110) ++++ mg/dLNONV HealthcareInterpretation and review of laboratory resultsNormalNOCoxHealth Ketones, UANegativeNegative - 160(16) ++++ mg/dLGUNNISON VALLEY HOSPITAL HealthcareLeukocytes, UA NegativeNegative - 500+++ Julio/mcLNONV HealthcareNitrite, UANegativeNegative - PositiveNOMS HealthcarepH, UA65 - 9NONV HealthcareProtein, UANegativeNegative - 2000(20) ++++ mg/dLNONV HealthcareSpec Grav, UA1.011 - 1.03NONV Healthcare Urobilinogen, UA0.20.2 - 12 mg/dLNOMS HealthcareNONV HealthcareUS OB 14+ WEEKS ANATOMY SCANon 44-62-2233DN OB 14+ WEEKS ANATOMY SCANEXAM: US OB [...] II, MD, PHD at 20-Feb-2025 09:47:05 AM [facility] TeleradiologyNormalNot AvailableComment on above:Order Comment: US OB ANATOMY SINGLE W US OB CERVICAL LENGTH Estimated Date of Delivery: 07/01/25 Gestational Age as of 02/12/2025: 71i2lRNX surface Ag IA Qlon 16-52-2874Ysamxxiir B Surface AntigenNegativeProMedica Health SystemProMedica Health SystemBOX TEST on 92-55-0928LFD TEST SENT OUTUNITY BOXNONV TjznmuopfnQYM2KFUXQKMKL Healthcare BOX/02/19NONV HealthcareUNITY BOX CLINISYNCDrug Screen, Urineon 99-19-9628Tjvyyihorvv/MethamphetamineNegative [facility] Health SystemBarbituratesNegativeProMedica Health System BenzodiazepinesNegativeProMedica Health SystemCocaine MetaboliteNegative [facility] SystemEcstasyNegativeProMedica Health SystemMethadoneNegative [facility] SystemOpiatesNegativeProMedica Health SystemOxycodoneNegative [facility] SystemPhencyclidineNegativeProMedica Health SystemThc Marijuana, UrinePositiveProMedica Health SystemHIV 1+2 Ab+HIV1 p24 Ag IA Qlon 39-13-7938PPD 1&2 AB/AGNon-ReactiveProMercy Health – The Jewish Hospital SystemHemoglobin A1con 18-76-4834DjY6x (Bld) [Mass fraction]4.9 %4.0 - 6.0 %[facility] SystemNo Panel Informationon 78-41-6651WCOL HealthcareRubella IGG immune statuson 02-40-9374Egndinq immune IgG7.29ProMercy Health – The Jewish Hospital SystemType and screenon 78-60-9758Nif/Rh(D)NegativeProMercy Health – The Jewish Hospital SystemNo Panel Informationon 78-13-4892EALTAPTUJJOQKD EPIDERMIDIS, HAEMOLYTICUS, LUGDUNENSIS, SAPROPHYTICUS (CHERD4KQKN HealthcareSTAPHYLOCOCCUS EPIDERMIDIS, HAEMOLYTICUS, LUGDUNENSIS, SAPROPHYTICUS (URINANot detectedNOMS HealthcareURINARY TRACT INFECTION (HTRX)on 21-10-1496EVKIOWOCCEBTE CUMCAJXS9JLSY HealthcareACINETOBACTER BAUMANIINot detectedNOMS HealthcareCANDIDA ALBICANS, PARAPSILOSIS, XDTYRMSZTS5YFPE HealthcareCANDIDA ALBICANS, PARAPSILOSIS, TROPICALISNot detectedNOMS Healthcare MAYNOR MOCBELMF8SGYU HealthcareCANDIDA GLABRATANot detectedNOMS Healthcare MAYNOR KGEDSG7EMDQ HealthcareCANDIDA KRUSEINot detectedNOMS Healthcare CITROBACTER AVGUJEZA8KJKI HealthcareCITROBACTER FREUNDIINot detectedNOMS HealthcareENTEROBACTER AEROGENES, TUCELTZ1GJSE HealthcareENTEROBACTER AEROGENES, CLOACAENot detectedNOMS HealthcareENTEROCOCCUS FAECALIS, NDJDLLM6DEHZ Healthcare ENTEROCOCCUS FAECALIS, FAECIUMNot detectedNOMS HealthcareESCHERICHIA USGL2ZAUU HealthcareESCHERICHIA COLINot detectedNOMS HealthcareKLEBSIELLA PNEUMONIAE, NHNCLHK4ZVRV HealthcareKLEBSIELLA PNEUMONIAE, OXYTOCANot detectedNOMS Healthcare MORGANELLA WRYHPRSZ2WNCP HealthcareMORGANELLA MORGANIINot detectedNOMS HealthcarePROTEUS MIRABILIS, HMHIMWGH8BKNZ HealthcarePROTEUS MIRABILIS, VULGARIS Not detectedNOMS HealthcarePSEUDOMONAS YHJJRSGTYL4TOSG HealthcarePSEUDOMONAS AERUGINOSANot detectedNOMS HealthcareSERRATIA DDPOOBHBRM6BHKM HealthcareSERRATIA MARCESCENSNot detectedNOMS HealthcareSTAPHYLOCOCCUS VSVXJD1UNGP Healthcare STAPHYLOCOCCUS AUREUSNot detectedNOMS HealthcareSTREPTOCOCCUS AGALACTIAE (GROUP B STREP)0NOMS HealthcareSTREPTOCOCCUS AGALACTIAE (GROUP B STREP)Not detectedNOMS HealthcareSTREPTOCOCCUS PYOGENES (GROUP A STREP)0NOMS HealthcareSTREPTOCOCCUS PYOGENES (GROUP A STREP)Not detectedNOMS HealthcareNOMS HealthcareUrinalysis macro (dipstick) panel (U)on 88-69-8109Xyqvzxrll, UANegativeNegative - 4(70) +++ mg/dLNOMS HealthcareBlood, UAPositiveNegative - 50 Derick/mcLNOMS HealthcareComment on above:Trace-intactClarity, UAClearNOMS HealthcareColor, UAYellowNOMS HealthcareGlucose, UANegativeNegative - 2000(110) ++++ mg/dLNOMS Healthcare Interpretation and review of laboratory resultsAbnormalNONV HealthcareKetones, UANegativeNegative - 160(16) ++++ mg/dLNONV HealthcareLeukocytes, UANegative Negative - 500+++ Julio/mcLNOMS HealthcareNitrite, UANegativeNegative - Positive NOMS HealthcarepH, UA75 - 9NOMS HealthcareProtein, UATraceNegative - 2000(20) ++++ mg/dLNOMS HealthcareSpec Grav, UA1.021 - 1.03NOMS HealthcareUrobilinogen, UA1.00.2 - 12 mg/dLNOMS HealthcareNOMS HealthcareHCG ( test) Ql (U)on 77-11-7134Jcrepavgxbhftw and review of laboratory resultsAbnoUniversity of Pennsylvania Health System Preg Test, UrPositiveNegativeNOMS HealthcareNOMS HealthcareUS OB LIMITED 1+ FETUSESon 53-49-0542NF OB LIMITED 1+ FETUSESEXAM: US OB LIMITED [...] II, MD, PHD at 27-Jan-2025 10:23:04 AM [facility] TeleradiologyNormalNot AvailableComment on above:Order Comment: US OB TRANSVAGINAL No LMP recorded.Urinalysis macro (dipstick) panel (U)on 55-31-8188Fbhuabyah, UA NegativeNegative - 4(70) +++ mg/dLNOMS HealthcareBlood, [...] - 12 mg/dLNOMS HealthcareNOMS Healthcare Urine Cultureon 73-74-7104Egmvrypi identified Cx Nom (U)No Growth 2 Days PERFORMED BY: [place] [address] PATHOLOGIST ANIMAL RESEARCHER RAHUL HOLCOMB M.D.NormalThe [facility] Physician GroupComment on above: Performed By: #### CUU #### [address] StreetAmphetamine Screen Ql (U)Ordered By: Denny Azevedo on 74-89-3331Qauonwbotmnq Ql (U)NegativeNegativeUniversity Hospitals Conneaut Medical Center Amylase [Enzymatic activity/volume] in Serum or PlasmaOrdered By: Denny Azevedo on 04-61-1664Vwwxqit [Catalytic activity/Vol]32 U/K51-191IelhvtaflUniversity Hospitals Conneaut Medical CenterAspartate aminotransferase [Enzymatic activity/volume] in Serum or PlasmaOrdered By: Denny Azevedo on 15-58-2374BPB [Catalytic activity/Vol]24 U/L 13-39[facility] Medical CenterAutomated erythrocytes count in urine sediment (number/area)Ordered By: Denny Azevedo on 05-00-0703ENV Auto (Urine sed) [#/Area]10-19 [HPF]0-4FPaulding County HospitalAutomated leukocytes count in urine sediment (number/area)Ordered By: Denny Azevedo on 60-66-7161JJY Auto (Urine sed) [#/Area]3-4 [HPF]0-4FPaulding County Hospital Barbiturates [Presence] in Urine by Screen methodOrdered By: Denny Azevedo on 76-74-1741Wwgalxrhdygj Screen Ql (U)NegativeNegBlanchard Valley Health SystemBasophils Auto (Bld) [#/Vol]Ordered By: Denny Azevedo on 08-11-2023 Basophils (Bld) [#/Vol]0.1 10*3/uL0.0-0.2FPaulding County Hospital Basophils/100 WBC Auto (Bld)Ordered By: Denny Azevedo on 53-77-7118Bpurauvnt/100 WBC (Bld)0.9 %.[facility] Medical CenterBenzodiazepines Screen Ql (U) Ordered By: Denny Azevedo on 06-04-9380Xfwwgzkelevvhai Ql (U)NegativeNegative [facility] Medical CenterBenzoylecgonine [Presence] in Urine by Screen methodOrdered By: Denny Azevedo on 56-44-3436Srqfxmvowhmtbjt Screen Ql (U) NegativeNegativeUniversity Hospitals Conneaut Medical CenterBilirubin Test strip Ql (U) Ordered By: Denny Azevedo on 49-02-7710Wmbqpnwcb Ql (U)NegativeNegativeUniversity Hospitals Conneaut Medical CenterCannabinoids [Presence] in Urine by Screen methodOrdered By: Denny Azevedo on 21-92-9009Aubracrrafok Screen Ql (U)PositiveNegative [facility] Medical CenterComment on above:These are unconfirmed results and should not be used for legal purposes. Drug Cut-Off Concentration: AMPH 1000 ng/mL THOMAS 200 ng/mL ARTHUR 200 ng/mL COCM 300 ng/mL OP 300 ng/mL PCP 25 ng/mL THC 20 ng/mLCarbon dioxide, total [Moles/volume] in Serum or PlasmaOrdered By: Denny Azevedo on 62-97-5285VU6 [Moles/Vol]17.8 mmol/L21.0-31.0[facility] Medical CenterChloride [Moles/volume] in Serum or PlasmaOrdered By: Denny Azevedo on 76-50-3120Jfsjeemr [Moles/Vol]108 mmol/W64-507OalkzcycqUniversity Hospitals Conneaut Medical CenterColor Auto (U)Ordered By: Denny Azevedo on 15-83-6950Yevzx (U) YellowYellowUniversity Hospitals Conneaut Medical CenterCreatine kinase [Enzymatic activity/volume] in Serum or PlasmaOrdered By: Denny Aezvedo on 67-58-3926AO [Catalytic activity/Vol]225 U/H05-886OwqjtgbchUniversity Hospitals Conneaut Medical CenterCreatinine [Mass/volume] in Serum or PlasmaOrdered By: Denny Azevedo on 08-11-2023 Creatinine [Mass/Vol]0.68 mg/dL0.60-1.20[facility] Eosinophils Auto (Bld) [#/Vol]Ordered By: Denny Azevedo on 17-96-5321Lpymhkafsgf (Bld) [#/Vol]0.1 10*3/uL0.0-0.45[facility] Eosinophils/100 WBC Auto (Bld)Ordered By: Denny Azevedo on 08-11-2023 Eosinophils/100 WBC (Bld)1.3 %.[facility] Medical CenterErythrocyte distribution width Auto (RBC) [Ratio]Ordered By: Denny Azevedo on 08-11-2023 Erythrocyte distribution width (RBC) [Ratio]12.9 %11.9-15.3FPaulding County HospitalEthanol [Mass/volume] in Serum or PlasmaOrdered By: Denny Azevedo on 53-42-7305Siwobmv [Mass/Vol]mg/dLUniversity Hospitals Conneaut Medical CenterEthanol [Mass/Vol]TNPUniversity Hospitals Conneaut Medical CenterComment on above:Test not performedGlucose [Mass/volume] in Serum or PlasmaOrdered By: Denny Azevedo on 40-92-6733Ankurwy [Mass/Vol]109 mg/hQ15-580LedamdwqkUniversity Hospitals Conneaut Medical Center Comment on above:ADA recommended reference rangeRandom Glucose Reference Range is dependent on time and content of last meal. Glucose of more than 200 mg/dL in a nonstressed, ambulatory subject supports the diagnosisof Diabetes Mellitus. HCG ( test) IA.rapid Ql (U)Ordered By: Denny Azevedo on 57-08-7553EAS ( test) Ql (U)NegativeUniversity Hospitals Conneaut Medical CenterHematocrit Auto (Bld) [Volume fraction]Ordered By: Denny Azevedo on 24-75-1246Ikhyonzbxu (Bld) [Volume fraction]40.4 %34.0-46.4FPaulding County HospitalHemoglobin [Mass/volume] in BloodOrdered By: Denny Azevedo on 38-96-8032Socliwpxwt (Bld) [Mass/Vol]14.2 g/dL11.8-15.4FPaulding County HospitalINR in Platelet poor plasma by Coagulation assayOrdered By: Denny Azevedo on 57-20-4790CRN Coag (PPP) [Relative time]1.0 {INR}[facility] CenterComment on above: INR Therapeutic Range [...] By: Denny Azevedo on 08-11-2023 Ketones (U) [Mass/Vol]TraceNegativeUniversity Hospitals Conneaut Medical CenterLaboratory - UrinalysisOrdered By: Denny Azevedo on 80-67-5379Ykvofeo casts LM Ql (Urine sed)0-8 [LPF]0-8[facility] Medical CenterLeukocytes [#/volume] corrected for nucleated erythrocytes in Blood by Automated counOrdered By: Denny Azevedo on 52-02-7110BXI corrected for nucl RBC Auto (Bld) [#/Vol]7.9 10*3/uL3.8-11.6 [facility] Medical CenterLipase [Enzymatic activity/volume] in Serum or PlasmaOrdered By: Denny Azevedo on 78-03-4156Nqwugk [Catalytic activity/Vol]13.0 U/L11.0-82.0[facility] Medical CenterLymphocytes Auto (Bld) [#/Vol] Ordered By: Denny Azevedo on 44-51-5468Acmbzledlnh (Bld) [#/Vol]1.8 10*3/uL 1.00-4.8[facility] Medical CenterLymphocytes/100 WBC Auto (Bld)Ordered By: Denny Azevedo on 94-10-8700Vlxbenhwzco/100 WBC (Bld)23.1 %.[facility] Auto (RBC) [Entitic mass]Ordered By: Denny Azevedo on 35-97-9602VFI (RBC) [Entitic mass]30.4 pg24.7-34.3FPaulding County HospitalMCHC Auto (RBC) [Mass/Vol]Ordered By: Denny Azevedo on 03-46-0418LQXM (RBC) [Mass/Vol]35.1 g/dL32.0-35.0[facility] Medical CenterMCV Auto (RBC) [Entitic vol]Ordered By: Denny Azevedo on 13-51-5796RVO (RBC) [Entitic vol]86.7 hR03-491WeuokthkrUniversity Hospitals Conneaut Medical CenterMonocyte distribution width [Entitic volume] in Blood by AutomatedOrdered By: Denny Azevedo on 08-11-2023 Monocyte distribution width Auto (Bld) [Entitic vol]17.99 %0.00-20.00[facility] Medical CenterMonocytes Auto (Bld) [#/Vol]Ordered By: Denny Azevedo on 27-41-9282Kbdplhwbh (Bld) [#/Vol]0.5 10*3/uL0.0-0.8[facility] Medical CenterMonocytes/100 WBC Auto (Bld)Ordered By: Denny Azevedo on 08-11-2023 Monocytes/100 WBC (Bld)6.9 %.[facility] Medical CenterNeutrophils Auto (Bld) [#/Vol]Ordered By: Denny Azevedo on 47-85-7555Qjueglknhmd (Bld) [#/Vol]5.4 10*3/uL1.8-7.7FPaulding County HospitalNeutrophils/100 WBC Auto (Bld) Ordered By: Denny Azevedo on 20-15-5936Rzpegssvnjh/100 WBC (Bld)67.8 %.[facility] Medical CenterNitrite Test strip Ql (U)Ordered By: Denny Azevedo on 04-46-9274Iqdwued Ql (U)NegativeNegativeUniversity Hospitals Conneaut Medical CenterNo Panel InformationOrdered By: Denny Azevedo on 47-46-4821Ldcnbgdlc GFR (CKD-EPI)> 60.0 mL/MinUniversity Hospitals Conneaut Medical CenterPharmacy Creatinine Clearance (Chem 138.27[facility] CenterNucleated erythrocytes [Presence] in Blood by Automated countOrdered By: Denny Azevedo on 16-48-2873Wetflvivv RBC Auto Ql (Bld)0.1 /100{WBC}0-0.5FPaulding County HospitalOpiates [Presence] in Urine by Screen methodOrdered By: Denny Azevedo on 08-11-2023 Opiates Screen Ql (U)NegativeNegBlanchard Valley Health System Phencyclidine Screen Ql (U)Ordered By: Denny Azevedo on 95-74-3646Iekpolujqyftu Ql (U)NegativeNegBlanchard Valley Health SystemPlatelet mean volume Auto (Bld) [Entitic vol]Ordered By: Denny Azevedo on 80-22-0977Muhfvjqe mean volume (Bld) [Entitic vol]7.7 fL6.3-10.7FPaulding County HospitalPlatelets Auto (Bld) [#/Vol]Ordered By: Denny Azevedo on 97-44-9791Fftyygpfl (Bld) [#/Vol]307 10*3/oD999-823RhqtwqvoeUniversity Hospitals Conneaut Medical CenterPotassium [Moles/volume] in Serum or PlasmaOrdered By: Denny Azevedo on 93-37-9267Vzzkdwxay [Moles/Vol]3.3 mmol/L 3.5-5.1FPaulding County HospitalProtein Auto test strip (U) [Mass/Vol] Ordered By: Denny Azevedo on 96-42-6160Qalnvko (U) [Mass/Vol]30 mg/dLNegative [facility] Medical CenterProthrombin time (PT)Ordered By: Denny Azevedo on 68-27-3303HP Coag (PPP) [Time]12.1 s9.0-12.9[facility] Comment on above:A hematocrit value greater than 55% may lead to inaccurate results in coagulation testing. Patientshaving hematocrit values >55% require a special collection tube for coagulation studies. Please contact the laboratory at [phone] for redraw instructions.RBC Auto (Bld) [#/Vol]Ordered By: Denny Azevedo on 33-83-6566RUA (Bld) [#/Vol]4.66 10*6/uL3.60-5.00Wilson Memorial Hospitalerum or plasma anion gap determinationOrdered By: Denny Azevedo on 75-44-0386Krcex gap [Moles/Vol]15.5 mmol/L6.0-15.0Wilson Memorial Hospitalodium [Moles/volume] in Serum or PlasmaOrdered By: Denny Azevedo 46-69-9368Ktbwyf [Moles/Vol]138 mmol/K932-365XfrmddwfnUniversity Hospitals Conneaut Medical Center Specific gravity Auto test strip (U) [Rel density]Ordered By: Denny Azevedo on 23-31-6688Xfoanukt gravity (U) [Rel density]1.0261.001-1.030Wilson Memorial Hospitalquamous epithelial cells detection in urine sediment by light microscopyOrdered By: Denny Azevedo on 76-98-5744Zriszoxvaw cells.squamous LM Ql (Urine sed)0-1 [HPF]0-2FPaulding County HospitalUrea nitrogen [Mass/volume] in Serum or PlasmaOrdered By: Denny Azevedo on 69-97-6883Fvra nitrogen [Mass/Vol]11 mg/dL7-25[facility] CenterUrine bacteria detection by automated methodOrdered By: Denny Azevedo on 50-15-4814Ivpebmyp Auto Ql (U)None seenNone SeenUniversity Hospitals Conneaut Medical CenterUrine clarity by refractometry automatedOrdered By: Denny Azevedo on 37-37-8800Maxjnqk Refractometry automated (U)ClearClearFPaulding County HospitalUrine glucose measurement by automated test strip (mass/volume)Ordered By: Denny Azevedo on 08-54-7764Ewiwtbi Auto test strip (U) [Mass/Vol]Normal mg/dLClinton Memorial HospitalUrine hemoglobin detection by automated test stripOrdered By: Denny Azevedo on 59-89-7945Kzffmkmyot Auto test strip Ql (U)2+ NegativeUniversity Hospitals Conneaut Medical CenterUrine leukocyte esterase detection by automated test stripOrdered By: Denny Azevedo on 47-18-0263Jswuferyy esterase Auto test strip Ql (U)NegativeNegativeUniversity Hospitals Conneaut Medical Center Urobilinogen Auto test strip (U) [Mass/Vol]Ordered By: Denny Azevedo on 57-02-4584Xidbqkhzerwy (U) [Mass/Vol]Normal mg/dLKindred HealthcareWBC Auto (Bld) [#/Vol]Ordered By: Denny Azevedo on 07-84-2379QQA (Bld) [#/Vol]7.9 10*3/uL3.8-11.6FPaulding County HospitalpH Auto test strip (U)Ordered By: Denny Azevedo on 71-46-9427gR (U)6.5 [pH]5.0-9.0[facility] Medical CenterBILIRUBIN CONJUGATED (DIRECT)on 27-57-5568QNNJ, CONJUGATED0.3 mg/dLCritically high0.0-0.2The Regional Medical CenterComment on above: Performed By: #### DBIL #### [facility] [address] [address] [address] Yaritza BojorquezUOFL HEALTH [facility] AUTO DIFFon 64-13-3681GBQJ #0.1 103/ulNormal0.0-0.1The Regional Medical CenterComment on above:Performed By: #### CBC #### [facility] [address] [address] [address] Yaritza BojorquezBasophils/100 WBC (Bld)0.5 %Normal0.2-2.0[facility] Comment on above:Performed By: #### CBC #### [facility] [address] [place] [address] Dr. Yaritza Blue #0.0 103/ulNormal0.0-0.7The [facility] Medical CenterComment on above: Performed By: #### CBC #### [facility] [address] [place] [address] Dr. Yaritza Tafoyaosinophils/100 WBC (Bld)0.1 %Critically low0.9-7.0The [facility] Medical CenterComment on above:Performed By: #### CBC #### [facility] [address] [place] [address] Dr. Yaritza Tafoyarythrocyte distribution width (RBC) [Ratio]12.1 %Dxomyo79.0-15.0 The [facility] Medical CenterComment on above:Performed By: #### CBC #### [facility] [address] [place] [address] Dr. Yaritza BojorquezHematocrit (Bld) [Volume fraction]45.0 %Ycufog87.0-48.0The Regional Medical CenterComment on above:Performed By: #### CBC #### [facility] [address] [place] [address] Dr. Yaritza BojorquezHemoglobin (Bld) [Mass/Vol]16.5 g/dLCritically high12.0-16.0The [facility] Hospitalment on above:Performed By: #### CBC #### [facility] [address] [place] [address] Dr. Yaritza Chandler #0.05 10e3/ulCritically high0.00-0.03[facility] Comment on above:Performed By: #### CBC #### [facility] [address] [place] [address] Dr. Yaritza Chandler %0.3 %Normal0.0-0.5The [facility] Medical CenterComment on above: Performed By: #### CBC #### [facility] [address] [place] [address] Dr. Yaritza Galo #3.2 103/ulNormal1.2-3.8The Regional Medical CenterComment on above:Performed By: #### CBC #### [facility] [address] [place] [address] Dr. Yaritza Akersmphocytes/100 WBC (Bld)21.6 %Uxcvot47.5-60.0[facility] on above:Performed By: #### CBC #### [facility] [address] [place] [address] Dr. Yaritza GuidryUAL DIFF REQNONormalThe Regional Medical CenterComment on above: Performed By: #### CBC #### [facility] [address] [place] [address] Dr. Yaritza Tesfaye (RBC) [Entitic mass]30.7 mcRjvqmt25.7-34.0The [facility] Medical CenterComment on above:Performed By: #### CBC #### [facility] [address] [place] [address] Dr. Yaritza Tesfaye (RBC) [Mass/Vol]36.7 g/dLCritically high29.9-35.2The [facility] Medical CenterComment on above:Performed By: #### CBC #### [facility] [address] [place] [address] Dr. Yaritza Tesfaye (RBC) [Entitic vol]83.8 rFLkonlc36.0-99.0The [facility] Medical CenterComment on above:Performed By: #### CBC #### [facility] [address] [place] [address] Dr. Yaritza Mercedes #0.8 103/ulNormal0.3-0.8The [facility] Medical CenterComment on above:Performed By: #### CBC #### [facility] [address] [place] [address] Dr. Yaritza Jonesocytes/100 WBC (Bld)5.3 %Normal1.7-12.0[facility] Comment on above:Performed By: #### CBC #### [facility] [address] [place] [address] Dr. Yaritza Pearce #10.5 103/ulCritically high1.4-6.5[facility] Comment on above:Performed By: #### CBC #### [facility] [address] [address] [address] Yaritza Alegriautrophils/100 WBC (Bld)72.2 %Xxycuv51.0-75.0The [facility] Medical CenterComment on above:Performed By: #### CBC #### [facility] [address] [place] [address] Dr. Yaritza Blevinslet mean volume (Bld) [Entitic vol]10.0 fLNormal9.5-13.5The [facility] Medical CenterComment on above:Performed By: #### CBC #### [facility] [address] [place] [address] Dr. Yaritza BojorquezPLT450 103/puMofjgk367-962Qxu [facility] Medical CenterCommymichigan medical center clare on above: Performed By: #### CBC #### [facility] [address] [place] [address] Dr. Yaritza BojorquezRBC5.37 106/ulNormal4.20-5.40The [facility] Medical CenterComment on above:Performed By: #### CBC #### [facility] [address] [place] [address] Dr. Yaritza BojorquezWBC14.6 103/ulCritically high4.0-11.0The [facility] Medical CenterComment on above:Performed By: #### CBC #### [facility] [address] [place] [address] Dr. Yaritza Vuong URINEon 33-55-7178IYZKSUT URINECulture Observations: LIGHT GROWTH OF MIXED GENITAL KRYSTAL. NO POTENTIAL PATHOGENS SEEN.NormalThe Regional Medical CenterComment on above:Performed By: #### URCX #### [facility] [address] [place] [address] Dr. Yaritza Bosch URINE PROFILEon 20-00-1367Zrknkwtty Ql (U)NegativeNormal NEGATIVEThe Regional Medical CenterComment on above:Performed By: #### ERUR, UMICRO #### [facility] [address] [place] [address] Dr. Yaritza BojorquezClarity (U)CLEARNormalCLEARThe Regional Medical CenterComment on above: Performed By: #### NENO UMICRO #### [facility] [address] [address] [address] Yaritza Cornell (U) YELLOWNormalYELLOWUniversity Hospitals Lake West Medical CenterComment on above:Performed By: #### NENO UMICRO #### [facility] [address] [address] [address] Yaritza Day micrscopic examination will be performed if indicated. NormalThe Reynolds HospitalComment on above:Performed By: #### NENO UMICRO #### [facility] [address] [address] [address] Yaritza BojorquezGlucose Ql (U)NegativeNormalNEGATIVEUniversity Hospitals Lake West Medical CenterComment on above:Performed By: #### NENO UMICRO #### [facility] [address] [address] [address] Yaritza BojorquezHemoglobin Ql (U)NegativeNormalNEGATIVESumma Health [facility]ron Campus on above:Performed By: #### NENO UMICRO #### [facility] [address] [address] [address] Yaritza Jay Ql (U)>=80AbnormalNEGATIVEUniversity Hospitals Lake West Medical CenterComment on above:Performed By: #### NENO UMICRO #### [facility] [address] [address] [address] Yaritza BojorquezLEUKOCYTESTRACEAbnormalNEGATIVEUniversity Hospitals Lake West Medical CenterComment on above:Performed By: #### NENO, UMICRO #### [facility] [address] [address] [address] Yaritza BojorquezNitrite Ql (U)NegativeNormalNEGATIVEUniversity Hospitals Lake West Medical CenterComment on above:Performed By: #### NENO, UMICRO #### [facility] [address] [address] [address] Yaritza BojorquezpH (U)6.5 [pH]Normal5-9[facility] Medical CenterComment on above: Performed By: #### NENO UMICRO #### [facility] [address] [place] [address] Dr. Yaritza BojorquezProtein (U) [Mass/Vol]100 mg/dLAbnormalNEGATIVE/ TRACEThe Regional Medical CenterComment on above:Performed By: #### ALBA LAZCANOICRO #### [facility] [address] [place] [address] Dr. Yaritza BojorquezSPEC GRAVITY1.046Ettaku8.005-<=1.025The [facility] Medical CenterComment on above:Performed By: #### ALBA LAZCANOICRO #### [facility] [address] [place] [address] Dr. Yaritza Rodriguez FINLAND INDINDICATEDFormerly [facility], [facility] Hospitale Regional Medical CenterComment on above: Performed By: #### BABAK LAZCANORO #### [facility] [address] [place] [address] Dr. Yaritza Lemosbiltoñito Qn (U)4 {Emir'U}/dLAbnormal0.2 - 1.0The [facility] Medical CenterComment on above:Performed By: #### NENO RAJANRO #### [facility] [address] [place] [address] Dr. Yaritza Jerez 14(COMP METB)on 39-19-9258Hlilscd [Mass/Vol]4.5 g/dLNormal 3.4-5.0The [facility] Medical CenterComment on above:Performed By: #### CMP #### [facility] [address] [place] [address] Dr. Yaritza BojorquezAlbumin/Globulin [Mass ratio]1.2 {ratio}NormalThe Regional Medical CenterComment on above:Performed By: #### CMP #### [facility] [address] [place] [address] Dr. Yarizta Banks [Catalytic activity/Vol]48 U/QPlrpma99-249Vyg Regional Medical CenterCommymichigan medical center clare on above:Performed By: #### CMP #### [facility] [address] [place] [address] Dr. Yaritza Garcia [Catalytic activity/Vol]25 U/RZpfytu72-46Yjg [facility] Medical CenterComment on above:Performed By: #### CMP #### [facility] [address] [address] [address] Yaritza Escalante gap [Moles/Vol]17.8 mmol/LNormalUniversity Hospitals [facility] Comment on above:Performed By: #### CMP #### [facility] [address] [address] [address] Yaritza BojorquezAST [Catalytic activity/Vol]11 U/LCritically ods11-19Lwl [facility] CenterComment on above:Performed By: #### CMP #### [facility] [address] [address] [address] Yaritza BojorquezBilirubin [Mass/Vol]1.4 mg/dLCritically high0.2-1.0The [facility] Medical CenterComment on above:Performed By: #### CMP #### [facility] [address] [address] [address] Yaritza BojorquezCalcium [Mass/Vol]9.3 mg/dLNormal8.5-10.1[facility] Comment on above:Performed By: #### CMP #### [facility] [address] [place] [address] Dr. Yaritza BojorquezChloride [Moles/Vol]98 mmol/XQmashi62-812Dgk [facility] Comment on above:Performed By: #### CMP #### [facility] [address] [address] [address] Yaritza BojorquezCO2 [Moles/Vol]19.1 mmol/LCritically low21.0-32.0The [facility] Medical CenterComment on above:Performed By: #### CMP #### [facility] [address] [address] [address] Yaritza BojorquezCreatinine [Mass/Vol]0.95 mg/dLNormal0.55-1.02The [facility] Medical CenterComment on above:Performed By: #### CMP #### [facility] [address] [address] [address] Vigil ChangEGFR-AF RWANDAN>60Normal>=60The [facility] Medical CenterComment on above:Performed By: #### CMP #### [facility] [address] [address] [address] Yaritza TafoyaGFR-NON AF RWANDAN>60Normal>=60The [facility] Medical CenterComment on above:Performed By: #### CMP #### [facility] [address] [address] [address] Yaritza BojorquezGlobulin (S) [Mass/Vol]3.6 g/dLNormalThCentervilleComment on above:Performed By: #### CMP #### [facility] [address] [address] [address] Yaritza BojorquezGlucose [Mass/Vol]138 mg/dLCritically rlkh71-605Dfc [facility] CenterComment on above:Performed By: #### CMP #### [facility] [address] [address] [address] Yaritza BojorquezPotassium [Moles/Vol]2.9 mmol/LCritically low3.5-5.1The [facility] Medical CenterComment on above:Performed By: #### CMP #### [facility] [address] [address] [address] Yairtza BojorquezProtein [Mass/Vol]8.1 g/dLNormal6.4-8.2The [facility] Comment on above:Performed By: #### CMP #### [facility] [address] [address] [address] Yaritza BojorquezSodium [Moles/Vol]132 mmol/LCritically bmh947-453Htp [facility] CenterComment on above:Performed By: #### CMP #### [facility] [address] [address] [address] Yaritza BojorquezUrea nitrogen [Mass/Vol]8.0 mg/dLNormal7.0-18.0The [facility] Medical CenterComment on above:Performed By: #### CMP #### [facility] [address] [address] [address] Yaritza BojorquezUrea nitrogen/Creatinine [Mass ratio]8.4 mg/mgNormKindred Hospital LimaComment on above:Performed By: #### CMP #### [facility] [address] [address] [address] Yaritza Justin MICROSCOPIC ONLYon 72-79-2495ZHPHDRJWDFUHCLINRvsoqgtvPWLU SEENSelect [facility]ty [facility] on above:Performed By: #### ERUR, UMICRO #### [facility] [address] [address] [address] Yaritza Hidalgo identified Cx Nom (U)INDICATEDMercer County Community Hospital on above:Performed By: #### ERUR, UMICRO #### [facility] [address] [place] [address] Dr. Yaritza Jones SEENWatchungNONE SEENSelect Medical Specialty [facility] on above:Performed By: #### NENO, UMICRO #### [facility] [address] [place] [address] Dr. Yaritza Cochran LM Nom (Urine sed)NONE SEENNormalNONE SEENSelect Medical Specialty [facility] on above:Performed By: #### NENO UMICRO #### [facility] [address] [address] [address] Vigil ChangEjose dthelial cells LM Ql (Urine sed)MANYAbnormalNONE SEEN /RARESelect Medical Specialty [facility] on above:Performed By: #### NENO, UMICRO #### [facility] [address] [address] [address] Yaritza LeeMALLAbnormalNONE SEENSelect Medical Specialty [facility] on above:Performed By: #### NENO, UMICRO #### [facility] [address] [address] [address] Yaritza BojorquezMhwnrINV8-0Podnvhqo1-6UwySelect Medical Specialty Hospital [facility] on above:Performed By: #### ERUR, UMICRO #### [facility] [address] [address] [address] Yaritza BojorquezWBC5-10AbnormalNONE SEENThe Reynolds HospitalComment on above: Performed By: #### ERURTAYLA #### [facility] [address] [address] [address] Yaritza BojorquezXR ABD FLAT UP_PA Coreen 48-54-1133IT ABD FLAT UP_PA CHEXAMINATION: XR ABD FLAT [...] Electronically authenticated by: MACK SAMUELS Date: 2022-03-03 07:46NoSouthwest General Health CenterCovid-19 PCR (CVDTBH)on 85-63-1534ONBG-CoV-2 (COVID-19) RNA KOLE+probe Ql (Unsp spec)Not detectedNormalNOT DETECTEDThe [facility] Comment on above:Result Comment: This test is not yet approved or cleared by the [place] FDA. When there are no FDA-approved or cleared tests available, and other criteria are met, FDA can make tests available under an emergency access mechanism called an Emergency Use Authorization (EUA). The EUA for this test is supported by the [place] of Health and Human Service's (HHS's) declaration [...] consistent with SARS-CoV-2.Performed By: #### CVDTBH #### [facility] [address] [place], [place] [address] Dr. 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(1) Is : no(1) RESULTS/VITAL SIGNS VITAL SIGNS: T PRBP SpO2O2(LPM) %FiO2 Method 22-Jun-2019 18:54:00-6083616/69 99 room air, no respiratory support 22-Jun-2019 18:07:00-36.58045282/71 97 room air, no respiratory support MEDICAL [...] - Final Verification: completed Procedure performed by: ma Automatic Bandsaw Tender(s): none Findings: grossly normal anatomy Specimen: no [...] Data Referenced From Triage - ED 22-Jun-2019 18:07[facility] HospitalRisk Screen - Adult Emergencyon 36-95-0381Bqyx Screen - Adult Emergency Preferred Language: Preferred Language: Preferred Language for Discussing Health Care (patient/designee)[place] Advanced Directives: Advance Directive/DNRno Family Violence Adult: Abuse Screen: Are you or have you been threatened or abused physically, emotionally, or sexually by anyoneno Learning Assessment (Patient): Learning Assessment (Patient): Patient is Able to be Assessed for Learningyes Factors Influencing Readiness to Learnacuteness of illness Factors that Impact Ability to Learnnone Devices/Methods Used to Communicatenone Learning Preferencesaudio Cultural Considerationsnone Developmental Considerationsnone Oriental Orthodox Considerationsnone Learning Assessment (Other Learner): Learning Assessment (Other Learner): Other learner availableno Pressure Injury/TB/Substance: Pressure Injury: Pressure Injury Present on Admissionno Do you have a coughno Substance Use Current or Former Historynever: Cigarette/Tobacco, e-Cigarette/Vaping, Alcohol, Street Drugs Admission Risk Screen: Significant IndicatorsComplete CAGE: CAGE: Is this an injured patient at a Trauma Center ([facility]/[place]): yes C: Have you ever felt you needed to Cut down on your drinking: no A: Have people Annoyed you by criticizing your drinking: no G: Have you ever felt Guilty about drinking: no E: Have you ever felt you needed a drink first thing in 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) to steady your nerves or to get rid of hangover: no Electronic Signatures: Mehdi Chaney (MALU) (Signed 22-Jun-2019 18:11) Authored: Preferred Language, Advanced Directives, Family Violence Adult, Learning Assessment (Patient), Learning Assessment (Other Learner), Pressure Injury/TB/Substance, CAGE Last Updated: 22-Jun-2019 18:11 by Mehdi Chaney (MALU)[facility] HospitalJennifer - Desi 87-84-6834Jdafse - EDQuick Triage: The patient and/or guardian [...] than 3 weeks: no [facility]: no Allergies: yes Last menstrual period: 24-May-2019 [...] Accompanied By: self Language: Spoken Language Preferred: [place] PRIMARY ASSESSMENT CHENTE GONZALEZ's primary assessment is [...] History Last Updated: 22-Jun-2019 18:40 by Nitin Singer)[facility] Vital Signs Date TimeVital SignValuePerforming WdoijtkrhKbsnrsjy31-29-4025 10:26-0400Body mass index (BMI) [Ratio]37.94 kg/m2Deyanira KABA Work Phone: [phone] [place], [place] [address]Flzclquhya66-78-5510 10:26-0400Body gasctn537.42 kgDeyanira Juan KABA Work Phone: [phone] [place], [place] [address]Bavgdzpaez40-42-1382 10:26-0400Diastolic blood iykcwzov92 mm[Hg]Deyanira KABA Work Phone: [phone] [place], [place] [address]Didivhxmwe64-45-7192 10:26-0400Systolic blood nbcqhvsy939 mm[Hg]Deyanira Martinez PA Work Phone: [phone] [place], [place] [address]Eeldvtttoh49-28-9894 09:50-0400Body mass index (BMI) [Ratio]37.61 kg/l7Igabd Angie DO Work Phone: [phone] [place], [place] [address]Emaxvhuwrg11-30-9718 09:50-0400Body jqsuza657.51 kgCorey Angie DO Work Phone: [phone] [place], [place] [address]Pkolcnsvtg88-60-2856 09:50-0400Diastolic blood psmnnqzu51 mm[Hg]Jaspreet Angie DO Work Phone: [phone] [place], [place] [address]Wvvdmzdxfl66-43-0376 09:50-0400Systolic blood vrepeygr000 mm[Hg]Jaspreet Angie DO Work Phone: [phone] [place], [place] [address]Xjsnwfomoy54-90-9309 11:40-0400Body mass index (BMI) [Ratio]37.28 kg/l8FjhrbzzcWilly Avila FOOT TENDER Work Phone: [phone] [place], [place] [address]Iwcdaiuuum51-37-4219 11:40-0400Body tvebir829.61 kgWilly Avila FOOT TENDER Work Phone: [phone] [place], [place] [address]Lwzddahbee83-52-0749 11:40-0400Diastolic blood mm[Hg]Willy Avila FOOT TENDER Work Phone: [phone] [place], [place] [address]Gwspbftwdd43-55-8132 11:40-0400Systolic blood bfhfixqg109 mm[Hg]Willy Avila NP Work Phone: [facility] CenterRikyixdmin44-31-1636 10:03-0400Body mass index (BMI) [Ratio]36.08 kg/m2Amy Juan KABA Work Phone: [facility] CenterEfivwjmsku13-55-1019 10:03-0400Body naduwq91.34 kgAmy Juan KABA Work Phone: [facility] CenterAuucvknaiw70-01-5754 10:03-0400Diastolic blood gbzpuvlx83 mm[Hg]Deyanira KABA Work Phone: [facility] CenterKgvflebnwn63-85-2192 10:03-0400Systolic blood wsalgrmg783 mm[Hg]Deyanira KABA Work Phone: [facility] CenterHzcttreiux51-89-2249 15:05-0400Body mass index (BMI) [Ratio]35.01 kg/o0Bnmqt Angie DO Work Phone: [facility] CenterJmuboanvdo40-21-0066 15:05-0400Body hxzefg65.44 kgCorey Angie DO Work Phone: [facility] CenterDvgzzudvsc96-30-1267 15:05-0400Diastolic blood onxuzapp70 mm[Hg]Jaspreet Angie DO Work Phone: [facility] CenterOkzoyofjxg90-01-3929 15:05-0400Systolic blood rjixnhfb863 mm[Hg]Jaspreet Angie DO Work Phone: [facility] CenterUwbzeffbac00-72-6402 10:41-0400Body mass index (BMI) [Ratio]33.91 kg/m2Amy Juan KABA Work Phone: [facility] CenterLcosrxkywj92-43-3057 10:41-0400Body pulqmj26.44 kgDeyanira KABA Work Phone: [facility] CenterRauukwhago89-94-9684 10:41-0400Diastolic blood kqoaowuk68 mm[Hg]Deyanira KABA Work Phone: [facility] CenterFhkcljlpsu10-98-2596 10:41-0400Systolic blood vvxqigyd060 mm[Hg]Deyanira KABA Work Phone: [phone])313-[address] [place], [place] [address]Hluoxktekc20-07-2949 10:50-0400Body mass index (BMI) [Ratio]33.35 kg/c5Kcjif Angie DO Work Phone: [phone] [place], [place] [address]Dqcmvioeks75-20-1517 10:50-0400Body .9 kg Jaspreet Angie DO Work Phone: [phone] [place], [place] [address]Lrrpwzzfyy61-17-8703 10:50-0400Diastolic blood lurmfmjc16 mm[Hg]Jaspreet Angie DO Work Phone: [phone] [place], [place] [address]Cmffadkkfr88-28-4064 10:50-0400Systolic blood yrninewd812 mm[Hg]Jaspreet Angie DO Work Phone: [phone] [place], [place] [address]Gvtauahswe09-66-8064 11:16-0400Body mass index (BMI) [Ratio]31.62 kg/s7Hhxft Angie DO Work Phone: [phone])[facility] [place], [place] [address]Yhxhkkxfpt09-22-1526 11:16-0400Body pdxovc93.18 kgCorey Angie DO Work Phone: [phone])[facility] [place], [place] [address]Wfxydrvtck37-97-0898 11:16-0400Diastolic blood mehwwejo98 mm[Hg]Jaspreet Angie DO Work Phone: [phone] [place], [place] [address]Sphuzkmkwr56-98-1310 11:16-0400Systolic blood utpgwawe125 mm[Hg]Jaspreet Angie DO Work Phone: [phone] [place], [place] [address]Tsjlquhiud83-18-3675 10:57-0400Body mass index (BMI) [Ratio]31.53 kg/h1JwotfommWilly Avila FOOT TENDER Work Phone: [phone])550-[address] [place], [place] [address]Eirksegpfu52-05-0650 10:57-0400Body xcegtw77.96 kgWilly Avila FOOT TENDER Work Phone: [phone] [place], [place] [address]Heqrtekvbr24-19-9296 10:57-0400Diastolic blood oftiqxqp48 mm[Hg]Willy Avila FOOT TENDER Work Phone: [phone])327-[address] [place], [place] [address]Fmcttelcvw82-74-3024 10:57-0400Systolic blood kgapdigz893 mm[Hg]Willy Avila FOOT TENDER Work Phone: [facility] CenterRsdjvvbsyw32-85-8524 11:42-0400Diastolic blood oqfdvrml61 mm[Hg][facility]05-30-2025 11:42-0400Systolic blood rxfmozco731 mm[Hg][facility]05-30-2025 11:21-0400Body mass index (BMI) [Ratio]32.01 kg/m2[facility]05-30-2025 11:21-0400Body xzchyr23.26 kgFreeman [facility] Institute04-28-2025 13:51-0400Body mass index (BMI) [Ratio]31.35 kg/o8Cjppv Angie DO Work Phone: [facility] CenterZnbqaszyve95-28-2333 13:51-0400Body tuotah15.46 kgCorey Angie DO Work Phone: [facility] CenterDuqdbzkbhf24-12-7352 13:51-0400Diastolic blood opeauwvi90 mm[Hg]Jaspreet Angie DO Work Phone: [place] [address]Opvebujwmb01-53-6097 13:51-0400Systolic blood oudtqcsv151 mm[Hg]Jaspreet Angie DO Work Phone: [facility] CenterMjkrwjsqaz56-12-6995 22:07-0500Diastolic blood duoenofj36 mm[Hg][facility]12-15-2023 22:07-0500Heart rate71 /minPHYSICIAN [facility] 08-11-2023 22:07-0500Respiratory rate18 /minPHYSICIAN [facility]12-15-2023 22:07-2231FoT3% (BldA) [Mass fraction]99 % PHYSICIAN [facility]12-15-2023 22:07-0500 Systolic blood oonncpvu168 mm[Hg][facility]12-15-2023 19:17-0500Body aehlzq874.18 cmPHYSICIAN [facility]12-15-2023 19:17-0500Body kprvqa68.73 kgPHYSICIAN NO [facility] Encounters Encounter DateEncounter TypeCare ProviderFacilityStart: 06-23-2025 End: 81-35-6489Uudwsrwzt Result EncounterCorey Angie DO Work Phone: [facility] External Department UnsolicitedStart: 06-23-2025 End: 58-08-1183Knxiymyik Result EncounterCorey Angie DO Work Phone: [facility] External Department UnsolicitedStart: 06-19-2025 End: 49-27-8348Kttnek aaronRichard KABA Work Phone: [facility] OBGYNStart: 06-19-2025 End: 04-55-9220Lycrvt Effie Martinez PA Work Phone: [facility]BGYNStart: 06-19-2025 End: 67-65-8377kgvxqjgyqtDQQ JUANNot AvailableStart: 06-19-2025 End: 26-12-3480Taqgpw outpatient visit 15 minutesAmy Juan KABA Work Phone: [facility] OBGYNComment on above:Third trimester ([facility] 38 weeks gestation of ([facility])Start: 06-12-2025 End: 45-48-4027Qasdve flowsheetCorey Angie DO Work Phone: [facility] OBGYNStart: 06-12-2025 End: 06-62-0629Wqpjlm flowsheetCorey Angie DO Work Phone: [facility]BGYNStart: 06-12-2025 End: 61-62-9362murixqwaefYFMEI FAZIONot AvailableStart: 06-12-2025 End: 26-46-0314Kgmqzr outpatient visit 15 minutesCorey Angie DO Work Phone: NOMS Kadie OBGYNComment on above:Third trimester ([facility]); 37 weeks gestation of ([facility])Start: 06-02-2025 End: 98-48-9764Puobkcvxq Result EncounterCorey Angie DO Work Phone: noms External Department UnsolicitedStart: 06-02-2025 End: 13-23-9141Pxlavdiyz Result EncounterCorey Angie DO Work Phone: noms External Department UnsolicitedStart: 06-02-2025 End: 39-04-6957ruofdwwiivYQASOVJJ EBERLYNot AvailableStart: 06-02-2025 End: 15-05-5925Wjoptq outpatient visit 15 minutesWilly Avila NP Work Phone: NORE Reynolds OBGYNComment on above:35 weeks gestation of ([facility]); Third trimester ([facility])Start: 05-26-2025 End: 58-62-2456Gnibkowxd Result EncounterCorey Angie DO Work Phone: noms External Department UnsolicitedStart: 05-26-2025 End: 84-31-6741Jhjdcegad Result EncounterCorey Angie DO Work Phone: noms External Department UnsolicitedStart: 05-20-2025 End: 64-20-2463Lpaicodvr Result EncounterCorey Angie DO Work Phone: noms External Department UnsolicitedStart: 05-20-2025 End: 89-31-6747Elvjvgehs Result EncounterCorey Angie DO Work Phone: noms External Department UnsolicitedStart: 05-19-2025 End: 29-76-8344Qmldjovax Result EncounterCorey Angie DO Work Phone: noms External Department UnsolicitedStart: 05-19-2025 End: 09-17-6840Dalbevuio Result EncounterCorey Angie DO Work Phone: noms External Department UnsolicitedStart: 05-15-2025 End: 62-65-7596Suoyfd Effie KABA Work Phone: NOBV Kadie OBGYNStart: 05-15-2025 End: 01-16-8400Ibdliu Effie KABA Work Phone: NO Reynolds OBGYNStart: 05-15-2025 End: 19-25-3268fkyreuulvzXDB RAMEYNot AvailableStart: 05-15-2025 End: 37-39-4625Yoyybn outpatient visit 15 minutesDeyanira KABA Work Phone: NOMS Kadie OBGYNComment on above:33 weeks gestation of ([facility]); Third trimester ([facility]); Gestational diabetes mellitus (GDM), antepartum, gestational diabetes method of control unspecified([facility])Start: 04-30-2025 End: 90-83-2801Ajhstw outpatient visit 15 minutesCorey Angie DO Work Phone: NOMS Kadie OBGYNComment on above:31 weeks gestation of ([facility]); Third trimester ([facility]); Gestational diabetes mellitus (GDM), antepartum, gestational diabetes method of control unspecified([facility])Start: 04-30-2025 End: 61-50-6392ldpfpnjjsuZKUYY FAZIONot AvailableStart: 04-17-2025 End: 32-83-9841Pflakc Effie KABA Work Phone: NOMS Reynolds OBGYNStart: 04-17-2025 End: 28-56-0960Uhjjuw Effie KABA Work Phone: NOMS Kadie OBGYNStart: 04-17-2025 End: 63-39-4122perlhlwtwaIJO RAMEYNot AvailableStart: 04-17-2025 End: 80-83-8297Pqpstm outpatient visit 15 minutesDeyanira KABA Work Phone: NOMS Kadie OBGYNComment on above:Size of fetus inconsistent with dates in second trimester ([facility]) (Primary Dx); Third trimester ([facility]); 29 weeks gestation of ([facility])Start: 04-03-2025 End: 40-77-0018Goxoxa flowsheetCorey Angie DO Work Phone: noms Reynolds OBGYNStart: 04-03-2025 End: 48-39-0687Dkfihq flowsheetCorey Angie DO Work Phone: NOZB Reynolds OBGYNStart: 04-03-2025 End: 61-04-1919ghqtlwmfvxFTBLR FAZIONot AvailableStart: 04-03-2025 End: 61-75-4195Fbqitw outpatient visit 15 minutesCorey Angie DO Work Phone: NOMS Reynolds OBGYNComment on above:Second trimester ([facility]); 27 weeks gestation of ([facility])Start: 03-28-2025 End: 46-24-9670Nuovn abstractingScanning Provider ExternalMaternal- Medicine at [facility] Hospitaltart: 03-21-2025 End: 64-76-4090Jfpgkpiwe Result EncounterCorey Angie DO Work Phone: NOOP External Department UnsolicitedStart: 03-21-2025 End: 47-74-2762Apnbkcvkf Result EncounterCorey Angie DO Work Phone: noms External Department UnsolicitedStart: 03-19-2025 End: 17-44-7339bpgvotthxrMAK RAMEYNot AvailableStart: 03-06-2025 End: 38-90-8296Oktvlxkqp Result EncounterCorey Angie DO Work Phone: NOEJ External Department UnsolicitedStart: 03-06-2025 End: 72-87-8698Jjhnfuwsv Result EncounterCorey Angie DO Work Phone: noms External Department UnsolicitedStart: 03-05-2025 End: 41-89-6793Ilysly flowsheetCorey Angie DO Work Phone: NOIX BCP OBStart: 03-05-2025 End: 84-41-6301Xcwbrq flowsheetCorey Angie DO Work Phone: NOMS BCP OBStart: 03-05-2025 End: 94-47-7086Colpteuxl Result EncounterCorey Angie DO Work Phone: NOMS External Department UnsolicitedStart: 03-05-2025 End: 43-02-0818Tsynnif encounter procedureCorey Angie DO Work Phone: NOMS HealthcareStart: 03-05-2025 End: 48-43-5216Sekwzujj preventive med est patient 18-39 yrsCorey Angie DO Work Phone: NOM[facility] OBComment on above:Second trimester ([facility]); 23 weeks gestation of ([facility]); Diabetes mellitus screening; Well woman exam with routine gynecological exam; Other insomniaStart: 03-05-2025 End: 40-87-4940bswwklsmfyOKOBQ FAZIONot AvailableStart: 02-19-2025 End: 25-05-3567zcobnzmlciSZWVSKVT EBERLYNot AvailableStart: 02-12-2025 End: 62-78-0889pecdhylpuoIBA RAMEYNot AvailableStart: 01-31-2025 End: 71-87-7720Kdhlytqge Result EncounterCorey Angie DO Work Phone: NOMS External Department UnsolicitedStart: 01-31-2025 End: 79-86-8958Zzccuvhwi Result EncounterCorey Angie DO Work Phone: NOMS External Department UnsolicitedStart: 01-29-2025 End: 69-57-4223Lxbbgn flowsheetKristina Austin FOOT TENDER Work Phone: NOMS BCP OBStart: 01-29-2025 End: 26-42-6436Xyjgtk flowsheetKristina Austin FOOT TENDER Work Phone: NOMS BCP OBStart: 01-29-2025 End: 82-60-5077Szenlwer Result EncounterKristina Austin FOOT TENDER Work Phone: NOMS External Department UnsolicitedStart: 01-29-2025 End: 84-69-2584wkivwcqutiNFRZIESM EBERLYNot AvailableStart: 01-29-2025 End: 40-96-9837Upegnk outpatient visit 15 minutesWilly Avila FOOT TENDER Work Phone: NOMS BCP OBComment on above:Second trimester ; 18 weeks gestation of pregnancyStart: 01-24-2025 End: 47-78-8246Pejbsh outpatient visit 5 minutesNoms Bcp Ob Angie NurseNOMS BCP OBComment on above:GA: 09e5zUocwo: 01-24-2025 End: 93-52-5131nypgcepmjrUDLNJ FAZIONot AvailableStart: 01-06-2025 End: 16-42-7066uuxyovilxpLzafzpo Filomena MarkerFacility:[facility] Hospitaltart: 01-06-2025 End: 21-01-9988Dpkpppro ReferredMelissa Marker DO Work Phone: [facility] Ctr-LAB Path Spec Kadie HospStart: 12-23-2024 End: 01-55-9306Cxzhlg flowsheetCorey Angie DO Work Phone: NOMS BCP OBStart: 12-23-2024 End: 75-76-9588Tfkobs flowsheetCorey Angie DO Work Phone: NOMS BCP OBStart: 12-23-2024 End: 78-68-5479orbtfmxpmpPCOOP FAZIONot AvailableStart: 12-23-2024 End: 14-00-9425Gjqjrj outpatient visit 15 minutesCorey Angie DO Work Phone: NOMS BCP OBComment on above:Hyperemesis gravidarum; Follow-up examStart: 08-11-2023 End: 17-08-6575Xoddwtprj department patient visitPHYSICIAN NO [facility] Work Phone: Start: 03-03-2022 End: 69-55-8735koryfvirywED DOCTOR MISCFacility:N2Zlkyw: 08-23-2021 End: 49-77-0601mtcamfstlyKEZRGM RODRIGUEZFacility:H1 Procedures DateProcedureProcedure DetailPerforming ClinicianStart: 15-44-6453OU OB BPP W NON-STRESSCorey Angie DO Work Phone: Start: 63-49-6319Wghuf dip stick/tablet rgnt non-auto w/o micrscpAmy Juan KABA Work Phone: Start: 10-50-4878Jorwu dip stick/tablet rgnt non-auto w/o micrscpCorey Angie DO Work Phone: Start: 24-68-5948Mngnw dip stick/tablet rgnt non-auto w/o micrscpKristina Austin FOOT TENDER Work Phone: Start: 62-50-1109LI OB BPP W NON-STRESSCorey Angie DO Work Phone: Start: 72-95-5840BK OB BPP W NON-STRESSCorey Angie DO Work Phone: Start: 56-50-7165RY AMNIOTIC FLUID VOLUMECorey Angie DO Work Phone: Start: 98-16-7669EX OB BPP W NON-STRESSCorey Angie DO Work Phone: Start: 63-81-9716Qbunb dip stick/tablet rgnt non-auto w/o micrscpAmy Juan KABA Work Phone: Start: 02-88-2888Qpjup dip stick/tablet rgnt non-auto w/o micrscpCorey Angie DO Work Phone: Start: 62-57-0196Buziu dip stick/tablet rgnt non-auto w/o micrscpCorey Angie DO Work Phone: Start: 25-10-7801Sodcf dip stick/tablet rgnt non-auto w/o micrscpCorey Angie DO Work Phone: Start: 94-72-3279KJKDDGV TOLERANCE 3 HOURCorey Angie DO Work Phone: Start: 58-06-1865Cgdgyxq tolerance test gtt 3 specimensNot In System Ref ProvStart: 23-84-6509VNSQXXJ 1 HOURCorey Angie DO Work Phone: Start: 03-11-2454Ztouc dip stick/tablet rgnt non-auto w/o micrscpCorey Angie DO Work Phone: Start: 80-25-1306XSJ,APTIMA HPV,AGE GDLNCorey Angie DO Work Phone: Start: 95-67-6229Onmx ia hepatitis b surface antigen Not In System Ref ProvStart: 03-71-2804OMD TESTCorey Angie DO Work Phone: Start: 79-29-1978Gnmiwrsd rubellaNot In System Ref ProvStart: 02-79-8269Qyxjirxb screenScanning ExternalStart: 34-25-8105Canm scrn 1+ class nonchromoNot In System Ref ProvStart: 50-05-5160Pgpackvbdm glycosylated l2bRhinnpsd Provider ExternalStart: 42-06-8183ZKP 1&2 AB/AG SCREEN (P24 AG)Not In System Ref ProvStart: 17-91-5787ETLW AND SCREENNot In System Ref ProvStart: 00-87-5074BHXVLVZ TRACT INFECTION (HTRX)Willy Avila NP Work Phone: Start: 23-71-5186Vcjjk dip stick/tablet rgnt non-auto w/o micrscpWilly Avila NP Work Phone: Start: 49-53-0829Qhqqi dip stick/tablet rgnt non-auto w/o micrscpCorey Angie DO Work Phone: Start: 72-21-5104Ezvqn X-ray of right handPHYSICIAN NO FAMILYStart: 13-35-9348Zjjqktoh tomography of abdomen and pelvis with contrast PHYSICIAN NO FAMILYStart: 44-24-7894BS cervical spine without contrastPHYSICIAN NO FAMILYStart: 43-38-4553WG of facial bones without contrastPHYSICIAN NO FAMILY Start: 47-46-4069CW of head without contrastPHYSICIAN NO FAMILYStart: 08-11-2023 CT of thorax with contrastPHYSICIAN NO FAMILYStart: 08-11-2023 End: 12-90-9664Ciepy chest X-rayPHYSICIAN NO FAMILY Plan of Treatment DateCare ActivityDetailAuthorStart: 06-26-2025 End: 84-41-4029Ylwmqrq encounter qrwreuyoa74/30/2025 9:20 AM EDT Routine NOMS Kadie MORENOGYCarlos Alberto [address] [place], [id number] Deyanira Martinez, PA [address] [place] [address] NOMFerny [place] OBGYNStart: 06-19-2025 End: 59-12-6142Axasodw encounter /23/2025 9:40 AM EDT Routine NOMS Kadie VARGAS [address] [place], [id number] Deyanira Martinez, PA [address] [place], [place] [address] NOMFerny [place] OBGYNStart: 06-12-2025 End: 26-36-5771Irkpnjs encounter qgxlwpcub29/16/2025 9:40 AM EDT Routine NOMFerny VARGAS [address] [place], [id number] Jaspreet Adams DO [address] [place] [address] NOMFerny [place] OBGYNStart: 06-02-2025 End: 33-44-0925VYGEGRR, GROUP B STREP WITH SUSCEPTIBLITYCULTURE, GROUP B STREP WITH SUSCEPTIBLITY Lab Routine Third trimester ([facility]) Expected: 06/02/2025, Expires: 06/02/2026[facility] Work Phone: comment on above:Expected: 06/02/2025, Expires: 06/02/2026Start: 06-02-2025 End: 72-24-9346Shndpxh encounter mouxbsgoi75/06/2025 11:20 AM EDT Routine [facility] OBGYN [address] [place] [address] Willy Avila NP [address] [place] [address] NOMS Kadie OBGYNStart: 04-30-2025 End: 62-42-5735EZ biophysical profile w non stress testUS biophysical profile w non stress test Imaging Routine Gestational diabetes mellitus (GDM),antepartum, gestational diabetes method of control unspecified ([facility]) Expected: 04/30/2025 (Approximate), Expires: 10/28/2025NONV Healthcare Work Phone: comment on above:Expected: 04/30/2025 (Approximate), Expires: 10/28/2025Start: 50-90-7058Xndaobrxr vaccinationInfluenza Vaccine [facility] HospitalCreate! Art CollectiveBinghamton State Hospitaltart: 04-17-2025 End: 53-61-1893AJ for pregnancyUS OB follow up transabdominal approach Imaging Routine Size of fetus inconsistent with dates in second trimester ([facility]) Expected: 04/17/2025, Expires: 08/17/2025[facility] Work Phone: comment on above:Expected: 04/17/2025, Expires: 08/17/2025Start: 04-17-2025 End: 07-44-4129Edtpdzp encounter kyogpkepu87/21/2025 9:50 AM EDT Routine [facility] OBGYN [address] [place], [id number] Deyanira Martinez, PA [address] [place] [address] MATTIE [place] OBGYNStart: 04-03-2025 End: 84-42-0909fonwhmrddf86/07/2025 1:30 PM EDT Support Visit Maternal- Medicine at [facility] [address] [place] [address] Rimma Richey, RN [address], [address] [place] [address], [place] [address] Nikky Gonzalez, BLADE Brian, Consuelo, LD [address] [facility] [place] [address] [facility]: 04-03-2025 End: 37-21-4261Ufkievu encounter /07/2025 10:40 AM EDT Routine NOMS BCP OB [address] [place] [address] Jaspreet Adams, DO [address] [place] [address] NOMS BCP OBStart: 03-19-2025 End: 94-85-0858Bnftvveyetfx / ancillary services rhknzkldod62/23/2025 9:30 AM EDT Ancillary Procedure [facility]OM[facility] OB [address] [place] [address] NOMS BCP OBStart: 03-05-2025 End: 36-38-0269BDD panel - Blood by Automated countCBC Lab Routine Diabetes mellitus screening Expected: 03/05/2025 (Approximate), Expires: 03/05/2026NOMS HealthcareComment on above:Expected: 03/05/2025 (Approximate), Expires: 03/05/2026Start: 03-05-2025 End: 93-66-0188Hgfsudzznrb of glucose 1 hour after glucose challenge for glucose tolerance testGlucose tolerance, 1 hour Lab Routine Diabetes mellitus screening Expected: 03/05/2025 (Approximate), Expires: 03/05/2026NOMS HealthcareComment on above:Expected: 03/05/2025 (Approximate), Expires: 03/05/2026Start: 03-05-2025 End: 25-35-5468Fiwwmzv encounter rftcuyjyn84/09/2025 11:00 AM EDT Routine [facility]CP [facility] [address] [place] [address] Jaspreet Adams, DO [address] [place] [address] ArrivedNOMS BCP OBComment on above: ArrivedStart: 02-27-2025 End: 94-26-9079Rrswexx encounter /03/2025 8:50 AM EDT Routine NOMS BCP OB [address] [place] [address] Jaspreet Adams, DO [address] [place] [address] NOMS BCP OBStart: 02-12-2025 End: 92-79-8506Kuoudqtj Njotlxs4602/12/2025 9:00 AM EDT Clinical Support NOMS BCP OB [address] [place] [address] NOMS BCP OB Start: 01-29-2025 End: 65-86-2858Ibsqqgk encounter /04/2025 10:20 AM EDT Routine [facility]OM[facility] BCP OB [address] [place], [place] [address] Willy Avila, FOOT TENDER [address] [place] [address] NOMS BCP OBStart: 01-24-2025 End: 22-51-9281NCN/RhABO/Rh Lab Routine Missed menses , unspecified gestational age Expected: 01/24/2025 (Approximate), Expires: 01/24/2026NOMS HealthcareComment on above:Expected: 01/24/2025 (Approximate), Expires: 01/24/2026Start: 01-24-2025 End: 42-37-8983Yjgne fetoprotein, maternalAlpha fetoprotein, maternal Lab Routine Encounter for supervision of normal first in first trimester Expected: 01/24/2025 (Approximate), Expires: 03/26/2025NONV HealthcareComment on above:Expected: 01/24/2025 (Approximate), Expires: 03/26/2025Start: 01-24-2025 End: 62-22-9011Gwtrk type and Indirect antibody screen panel - BloodType and screen Lab Routine Missed menses , unspecified gestational age Expected: 01/24/2025 (Approximate), Expires: 01/24/2026N[facility]S Healthcare Work Phone: comment on above:Expected: 01/24/2025 (Approximate), Expires: 01/24/2026Start: 01-24-2025 End: 14-06-1469Sikpv of abuse panel - Urine by Screen methodRapid drug screen, urine Lab Routine , unspecified gestational age Encounter for supervision of normal first in first trimester Expected: 01/24/2025 (Approximate), Expires: 01/24/2026NOMS HealthcareComment on above:Expected: 01/24/2025 (Approximate), Expires: 01/24/2026Start: 01-10-2025 End: 82-10-3770wlwjmprzwy69/16/2025 9:30 AM EDT Initial [facility] [address] [place] [address] NOMS BCP OBStart: 01-10-2025 End: 02-84-1290Pfowwklvjgdx / ancillary services ogldbpzqfb53/16/2025 9:00 AM EDT Ancillary Procedure [facility] [address] [place] [address] [phone] BCP OBStart: 77-31-5110Jfredaoc identified in Urine by CultureUrine [facility] Hospitaltart: 11-80-0703Zdsyy [facility]tart: 86-49-9237Yhldyuyqw for malignant neoplasm of cervixPap SmearProVitaFlavor [facility] SystemStart: 66-23-2825ULaV,Tdap and Td Vaccines (1 - Tdap)DTaP,Tdap and Td Vaccines (1 - Tdap)[facility] SystemStart: 00-11-5631Cffmc BMI ScreeningAdult BMI ScreeningProMercy Health – The Jewish Hospital SystemStart: 49-02-1738Irvvwxbiqo ScreeningDepression ScreeningKettering Health Hamilton SystemStart: 32-00-1166Rdpgfgq ScreeningTobacco ScreeningMercy Health [facility] Bacteria identified in Urine by CultureUrine culture Microbiology Routine Missed menses Ordered: 01/24/2025[facility] HealthcareComment on above:Ordered: 01/24/2025 Bacteria identified in Urine by CultureUrine culture Microbiology Routine Second trimester Ordered: 01/29/2025[facility] Healthcare Work Phone: comment on above:Ordered: 01/29/2025BC W Auto Differential panel - BloodCBC and differential Lab Routine Missed menses , unspecified gestational age Ordered: 01/24/2025[facility] HealthcareComment on above:Ordered: 01/24/2025ytology Cervical or vaginal smear or scraping studyPap Smear Pathology and Cytology Routine Well woman exam with routine gynecological exam Ordered: 03/05/2025[facility] Healthcare Work Phone: comment on above:Ordered: 03/05/2025Hemoglobin A1c/Hemoglobin.total in BloodHemoglobin A1c Lab Routine Missed menses , unspecified gestational age Ordered: 01/24/2025[facility] HealthcareComment on above: Ordered: 01/24/2025Hepatitis B virus surface Ag [Presence] in Serum or Plasma by ImmunoassayHepatitis B surface antigen Lab Routine Missed menses , unspecified gestational age Ordered: 01/24/2025[facility] HealthcareComment on above: Ordered: 01/24/2025Hepatitis C virus Ab [Presence] in Serum or Plasma by ImmunoassayHepatitis C antibody Lab Routine Missed menses , unspecified gestational age Ordered: 01/24/2025[facility] HealthcareComment on above:Ordered: 01/24/2025HIV-1/HIV-2 antigen/antibody combination immunoassayHIV-1 and HIV-2 antibodies Lab Routine Missed menses , unspecified gestational age Ordered: 01/24/2025[facility] HealthcareComment on above:Ordered: 01/24/2025Patient EducationHead injury in adults Blunt Abdominal Trauma ED Blunt Chest Trauma ED [facility] Work Phone: Patient [facility] Work Phone: Reagin Ab [Presence] in Serum by RPRRPR Lab Routine Missed menses , unspecified gestational age Ordered: 01/24/2025NONV HealthcareComment on above:Ordered: 01/24/2025Rubella antibody, IgGRubella antibody, IgG Lab Routine Missed menses , unspecified gestational age Ordered: 01/24/2025NONV HealthcareComment on above:Ordered: 01/24/2025 Immunizations Immunization DateImmunizationNotesCare CucredciNhxmqlmw71-99-8000lyygwup toxoid, reduced diphtheria toxoid, and acellular pertussis vaccine, adsorbedPHYSICIAN NO [facility] Payers DatePayer CategoryPayerPolicy [id number] Health InsuranceCARECITIZENS [facility]ALTH[facility] MEDICAID [id number] [id number] [id number] [id number] 10.13.830.1.012341.3.57[id number] 2.16.840.1.785098.3.57[id number] 2.16.840.1.098554.3.57[id number] 2.16840.1.225722.3.57[id number] 2.16840.1.089379.3.57[id number] 2.840.1.123561.3.57[id number] 2.840.1.246509.3.57[id number] 2.0.1.581490.3.57[id number] 2.840.1.117787.3.579.2.[id number] 2.840.1.044755.3.57[id number] 2.840.1.231587.3.57[id number] 2.840.1.167486.3.57[id number] 2.840.1.411036.3.57[id number] 2.16840.1.745124.3.57[id number] 2.16840.1.380094.3.57[id number] 2.16.840.1.919630.3.579.2.180[id number] Auto/[id number] 8144l9l4-v150-73c7-355d-5xi72q095k3nCkgrnobZWNO/HFA/FAP Wlnopm08e9t748-s265-93xw-[id number] 2.16.840.1.802298.3.579.2.531UnknownRegular Auto/Qmeudypoj75-8006028 5pw26p06-955a-302h-d5s2-5a6qv3037419EfieystSQUL/HFA/FAP [id number] 17307a33-g029-2l5e-930z-ss2k76umh5cz Social History DateTypeDetailFacilityStart: 08-11-2023 End: 86-35-3636Ciivgcp smoking status NHISNever smoked tobacco (finding) [facility] Hospitaltart: 09-29-2934Zcf Assigned At BirthFeCrystal Clinic Orthopedic CenterTobacc smoking status NHISTobacco smoking consumption unknownGUNNISON VALLEY [facility]ITAL HealthcareStart: 01-16-7786Daclvl identityIdentifies as female gender (finding)[facility] HealthcareStart: 88-93-4885Bcmwdo orientationNot on [facility] Work Phone: Start: 01-07-2025 End: 14-36-5302QrcAroysb (finding)[facility] Hospitaltart: 99-38-4014DydyaapnwHCNW HealthcareStart: 37-10-7711Rop assigned at birthNot on [facility] HospitalVipVentasd Bidstalk SystemStart: 35-58-3396Xoubnpt of Social functionGUNNISON VALLEY HOSPITAL Healthcare Work Phone: Start: 57-29-3541EjsVjocbzQSAA Healthcare Medical Equipment Procedure CodeEquipment CodeEquipment Original TextEquipment IdentifierDates1 strip by In Vitro route Daily Use in the morning prior to breakfast, 1 hour after each meal for atotal of 4times daily.[id number]: 03-24-2025 End: each by In Vitro route Daily Use to check FSBS four times daily [id number]: 03-24-2025 End: 04-23-2025 Clinical Notes 12-23-2024 to 06-19-2025 Note Date & [id number] History of Present illness Narrative* SENDY Fan [...] to check FSBS. Blood Glucose Monitoring Suppl ([employer] Glucometer) w/Device kit 1 kit, Does not [...] Third trimester ([facility]) Z34.93 2. 38 weeks gestation of ([facility]) Z3A.38 POCT urinalysis dipstick manually resulted Return [...] behalf of: SENDY Fan documented in this encounterHedrick Medical [id number] History of Present illness Narrative* Nissa Matt, [...] nursing note reviewed. Exam conducted with a [facility] certified concierge present. Vitals: Estimated body mass index is 37.61 kg/m as calculated from the following: Height as of 12/01/20: 5' 5 . Weight as of this encounter: 226 lb. BP: 128/72 Patient's last menstrual period was 10/04/2024 (approximate). ASSESSMENT & PLAN ICD-10-CM 1. Third trimester ([facility]) Z34.93 POCT urinalysis dipstick manually resulted 2. 37 weeks gestation of ([facility]) Z3A.37 Patient presents today for a routine [...] surgical history on file. documented in this encounterHedrick Medical [id number] History of Present illness Narrative* Willy Avila [...] to check FSBS. Blood Glucose Monitoring Suppl ([employer] Glucometer) w/Device kit 1 kit, Does not [...] nursing note reviewed. Exam conducted with a [employer] certified concierge present. Vitals: Estimated body mass index is 37.28 kg/m as calculated from the following: Height as of 21: 5' 5 . Weight as of this encounter: 224 lb. BP: 126/80 Patient's last menstrual period was 10/04/2024 (approximate). ASSESSMENT & PLAN ICD-10-CM 1. 35 weeks gestation of ([facility]) Z3A.35 POCT urinalysis dipstick manually resulted 2. Third trimester ([facility]) Z34.93 CULTURE, GROUP B STREP WITH SUSCEPTIBLITY [...] of: Willy Avila NP documented in this encounterHedrick Medical [id number] History of Present illness Narrative* SENDY Fan [...] to check FSBS. Blood Glucose Monitoring Suppl ([employer] Glucometer) w/Device kit 1 kit, Does not [...] gestation of ([facility]) Z3A.33 POCT urinalysis dipstick manually resulted 2. Third trimester ([facility]) Z34.93 POCT urinalysis dipstick manually resulted 3. Gestational diabetes mellitus (GDM), antepartum, gestational diabetes method of control unspecified ([facility]) O24.419 Return OB: Patient presents today for [...] behalf of: SENDY Fan documented in this encounterHedrick Medical [id number] History of Present illness Narrative* Rahel Pendleton [...] nursing note reviewed. Exam conducted with a nca certified concierge present. Vitals: Estimated body mass index is 35.01 kg/m as calculated from the following: Height as of 12/01/20: 5' 5 . Weight as of this encounter: 210 lb 6.4 oz. BP: 120/70 Patient's last menstrual period was 10/04/2024 (approximate). ASSESSMENT & PLAN ICD-10-CM 1. 31 weeks gestation of ([facility]) Z3A.31 POCT urinalysis dipstick manually resulted 2. Third trimester ([facility]) Z34.93 POCT urinalysis dipstick manually resulted 3. Gestational diabetes mellitus (GDM), antepartum, gestational diabetes method of control unspecified ([facility]) O24.419 US biophysical profile w non stress [...] of: Jaspreet Adams DO documented in this encounterHedrick Medical [id number] History of Present illness Narrative* SENDY Fan [...] to check FSBS. Blood Glucose Monitoring Suppl ([employer] Glucometer) w/Device kit 1 kit, Does not [...] Third trimester ([facility]) Z34.93 POCT urinalysis dipstick manually resulted 2. 29 weeks gestation of ([facility]) Z3A.29 POCT urinalysis dipstick manually resulted Return [...] behalf of: SENDY Fan documented in this encounterHedrick Medical [id number] History of Present illness Narrative* Nissa Matt, SYSTEM VALIDATION ENGINEER - 04/03/2025 10:40 AM EDT Reason for Appointment: Patient ID: Chente Gonzalez is a 29 y.o. female who presents for Routine Visit Patient presents today for Return OB appointment. MEDICATIONS Current Outpatient Medications Medication Instructions Alcohol Swabs (Alcohol Prep Pad) 70 % pads 1 Pad, Topical, Daily, Use four times daily to check FSBS. Blood Glucose Monitoring Suppl ([employer] Glucometer) w/Device kit 1 kit, Does not [...] nursing note reviewed. Exam conducted with a nca certified concierge present. Vitals: Estimated body mass index is 33.35 kg/m as calculated from the following: Height as of 21: 5' 5 . Weight as of this encounter: 200 lb 6.4 oz. BP: 130/72 Patient's last menstrual period was 10/04/2024 (approximate). ASSESSMENT & PLAN ICD-10-CM 1. Second trimester ([facility]) Z34.92 Urine dip 2. 27 weeks gestation of ([facility]) Z3A.27 Urine dip Patient presents today for a routine obstetrics appointment. Patient is currently 27w2d with a Estimated Date of Delivery: 07/01/25. Patient brought in FSBS logs for review and patient still desires to hold off on [facility] referral at this time, referral was previously sent on 03/24/25 and when c ontacted by [facility] patient will inform them that she will postpone scheduling at this time. Patient toreturn to clinic in 2 weeks for routine OB appointment. Documented by Nissa Matt LPN on behalf of: Jaspreet Adams DO documented in this encounterHedrick Medical [id number] History of Present illness Narrative* Rahel Pendleton, SYSTEM VALIDATION ENGINEER - 03/05/2025 11:00 AM EDT Reason for [...] nursing note reviewed. Exam conducted with a nca certified concierge present. Vitals: Estimated body mass index is 31.62 kg/m as calculated from the following: Height as of 21: 5' 5 . Weight as of this encounter: 190 lb. BP: 128/78 Patient's last menstrual period was 10/04/2024 (approximate). ASSESSMENT & PLAN ICD-10-CM 1. Second trimester ([facility]) Z34.92 POCT urinalysis dipstick manually resulted 2. 23 weeks gestation of ([facility]) Z3A.23 3. Diabetes mellitus screening Z13.1 CBC Glucose tolerance, 1 hour CBC Glucose tolerance, 1 hour 4. Well woman exam with routine gynecological exam Z01.419 Pap Smear Return OB/Annual Exam: Patient presents today for a annual exam/routine obstetrics appointment. Patient is currently [id number]. Patient states she is doing well but [...] of: Jaspreet Adams DO documented in this encounterHedrick Medical [id number] History of Present illness Narrative* Willy Avila [...] nursing note reviewed. Exam conducted with a nca certified concierge present. Vitals: Estimated body mass index is [...] of: Willy Avila NP documented in this encounterHedrick Medical [id number] History of Present illness Narrative* Kalyn Jacob [...] or undercooked meat, and stay away from [facility]. Patient has also been advised to [...] by: Kalyn Jacob MA documented in this encounterHedrick Medical [id number] History of Present illness Narrative* Nissa Matt [...] nursing note reviewed. Exam conducted with a [employer]ca certified concierge present. Vitals: Estimated body mass index is [...] ultrasound. [facility]. Documented by Nissa Matt LPN on behalf of: Jaspreet Adams DO documented in this encounterNOMS HealthcareEvaluation noteNo assessment information availableUniversity Hospitals [facility] Work Phone: Evaluation note* Diagnosis Hyperemesis [...] encounter NOMS HealthcareInstructionsNot on filedocumented in this encounterKettering Health [facility] System Summary Purpose Family History Relationship Condition Age at Onset Recorded Date/T alicia brother Polycystic kidney disease Unknown fatherPolycystic kidney diseaseUnknown Advance Directives Advance Directive Response Recorded Date/ Time Advance Directives No January 18 9 1:06pm Advance Directive Response Recorded Date/ Time Advance Directives No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
--- OUTSIDE RECORDS SUMMARY | 2025-06-26 11:06 | XMS_ITS | Clinical Summary ---
Author Organization [facility] Healthcare Address [address] [place] [address] Care Team Providers Care Requirements Manager Name Role Phone Unavailable Primary Care Provider Unavailabl e Allergies Active AllergyReactionsCriticalityNoted DateCommentsPenicillin GUnknown 06/02/20254203Shfmgqrgfak54/28/2025 Other Reaction(s): Unknown Medications MedicationSigDispense QuantityRefillsLast FilledStart DateEnd DateStatus Multiple Vitamin (multivitamin) tablet Take 1 tablet by mouth DailyActive Klor-Con 20 MEQ packet DISSOLVE 1 PACKET IN 4 OZ OF WATER OR OTHER BEVERAGE AND DRINK DAILY FOR 7 DAYS 11/19/2024tive labetalol (Normodyne) 200 MG tablet Take 1 tablet by mouth in the morning and 1 tablet before bedtime.05/19/2025 Active doxylamine (Unisom) 25 MG tablet Indications:Other insomniaTake 1 tablet (25 mg) by mouth as needed at bedtime for sleep 30 tablet Discontinued Alcohol Swabs (Alcohol Prep Pad) 70 % pads Indications:Gestational diabetes mellitus (GDM), antepartum, gestational diabetes method of control unspecified(HHS-HCC),Elevated glucose tolerance test Apply 1 Pad topically Daily Use four times daily to check FSBS. 150 each Discontinued Blood Glucose Monitoring Suppl (D-Care Glucometer) w/Device kit Indications:Gestational diabetes mellitus (GDM), antepartum, gestational diabetes method of control unspecified(HHS-HCC),Elevated glucose tolerance test1 kit Daily Use four times daily to check FSBS. In the morning prior to breakfast & 1 hour after each meal for a total of 4times daily. 1 kit /30/2025Discontinued Encounters DateTypeDepartmentCare MiqsPlbbskrsfzy27/30/2025 9:20 AM EDTRoutine NOMS Kadie Zam[address] [place] [address] Deyanira Martinez PA 39 weeks gestation of ([facility]); Third trimester ([facility])06/26/2025amboo flowsheet NOMS Kadie VARGAS [address] [place] [place] [address] [phone] Deyanira Martinez PA 06/24/2025Patient Outreach NOMS [facility] [address] [place] [address] Deyanira Phillips LPN 06/23/2025linisync Result Encounter NOMS External Department Unsolicited Tyrell Adams DO 06/19/2025 9:40 AM EDTRoutine NOMS Kadie Zamora [facility] [place] [place] [address] [phone] Deyanira Martinez PA Third trimester ([facility]); 38 weeks gestation of ([facility])06/19/2025amboo flowsheet NOMS Kadie VARGAS [address] [place] [address] [address] [place] [phone] Deyanira Martinez PA 06/12/2025 9:40 AM EDTRoutine NOMS Kadie Zamora [facility] [place] [place] [address] Tyrell Admas, Third trimester ([facility]); 37 weeks gestation of ([facility])06/12/2025amboo flowsheet NOMS Kadie VARGAS [address] [place] [address] [address] [place] [phone] Tyrell Adams DO 06/05/2025Telephone NOMS Kadie Zamora [facility] [place] [place] [address] Britt Christensen MA 06/02/2025 11:20 AM EDTRoutine NOMS Kadie MORENOGYN [address] [place] [address] Nabila Avila NP 35 weeks gestation of ([facility]); Third trimester ([facility])5Clinisync Result Encounter NOMS External Department Unsolicited Tyrell Adams, DO 5Abstract NOMS [facility] [address] [place] [address] Deyanira Phillips, LEAD JAVASCRIPT ENGINEER 05/26/2025Patient Outreach NOMS [facility] [address] [place] [address] Deyanira Phillips, LEAD JAVASCRIPT ENGINEER 5Clinisync Result Encounter NOMS External Department Unsolicited Tyrell Adams, DO 5Abstract NOMS Kadie MORENOGYCarlos Alberto [address] [address] [place] [place] [address] Tyrell Adams, DO 5Clinisync Result Encounter NOMS External Department Unsolicited Tyrell Adams, DO 05/19/2025linisync Result Encounter NOMS External Department Unsolicited Tyrell Adams, DO 05/15/2025 9:50 AM EDTRoutine NOMS Kadie Zamora [place] [address] Deyanira Martinez PA 33 weeks gestation of ([facility]); Third trimester ([facility]); Gestational diabetes mellitus (GDM), antepartum, gestational diabetes method of control unspecified([facility])5Bamboo flowsheet NOMS Kadie Zamora [place] [address] Deyanira Martinez PA 04/30/2025 3:00 PM EDTRoutine NOMS Kadie Zamora [place] [address] Tyrell Adams DO 31 weeks gestation of ([facility]); Third trimester ([facility]); Gestational diabetes mellitus (GDM), antepartum, gestational diabetes method of control unspecified([facility])04/30/2025 2:30 PM EDTAncillary Procedure NOMS Kadie OBMICKYN [address] [address] [place] [place] [address] Size of fetus inconsistent with dates in second trimester ([facility])04/17/2025 9:50 AM EDTRoutine NOMS Kadie MORENOGYN [address] [facility] [address] [place] [address] [place] [address] Deyanira Martinez PA Size of fetus inconsistent with dates in second trimester ([facility]) (Primary Dx); Third trimester ([facility]); 29 weeks gestation of ([facility])04/17/2025amboo flowsheet NOMS Kadie VARGAS [address] [facility] [address] [place] [address] [place] [address] Deyanira Martinez PA 04/03/2025 10:40 AM EDTRoutine NOMS Kadie VARGAS [address] [place] [place] [address] Tyrell Adams DO Second trimester ([facility]); 27 weeks gestation of ([facility])04/03/2025amboo flowsheet NOMS Kadie VARGAS [address] [address] [place] [address] [place] [address] Tyrell Adams DO from Last 3 Months Social History Tobacco UseTypesPacks/DayYears UsedDateSmoking Tobacco: Never AssessedPHQ-2 AnswerDate RecordedPatient Health Questionnaire-2 Gnjge794 Estimated Date of WwbtfgsrSzcdnidcMqw95/04/2025Based on UltrasoundSex and Gender InformationValueDate RecordedSex Assigned at CmbgkNkketh63/27/2025 5:56 PM EDT Legal JqlTguqcd53/15/2023 7:00 PM EDTGender AmuujwynTgjeqr84/27/2025 5:56 PM EDTSexual OrientationNot on file Last Filed Vital Signs Vital SignReadingTime TakenCommentsBlood Tkqlsmky934/8010 9:45 AM EDT Pulse--Temperature--Respiratory Rate--Oxygen Saturation--Inhaled Oxygen Concentration--Aebsqr133 kg (233 lb 12.8 oz)06/26/2025 9:45 AM EEZAvkjfo892.1 cm (5' 5 )12/01/2020 12:00 PM EDTBody Mass Index38.9112/01/2020 12:00 PM EDT Plan of Treatment DateTypeDepartmentCare Team (Latest Contact Info)Cxeclfcfyoc86/16/2025 10:30 AM ESTPostpartum Visit NOMS Kadie OBGYCarlos Alberto [address] [place] [address] Deyanira Martinez PA [address] [place] [address] Procedures Procedure NamePriorityDate/TimeAssociated DiagnosisCommentsPOCT URINALYSIS QEWVXQMHFbptcog38/30/2025 9:55 AM EDT 39 weeks gestation of ([facility]) Third trimester ([facility]) US OB BPP W NON-YGGOXX3906/23/2025 10:45 AM EDT POCT URINALYSIS HPRVNQOJPbbxqom89/23/2025 10:26 AM EDT 38 weeks gestation of ([facility]) POCT URINALYSIS IZAVURQQXdokrrl26/16/2025 9:56 AM EDT Third trimester ([facility]) POCT URINALYSIS UUJYGYKEJhpabib80/06/2025 11:53 AM EDT 35 weeks gestation of ([facility]) US OB BPP W NON-ABRBFC3706/02/2025 10:52 AM EDT US OB BPP W NON-WPUAWN66/ 11:39 AM EDT US AMNIOTIC FLUID PTQSMV9105/20/2025 11:33 AM EDT MHPT DYZDQDAJNXDmrpduh29/22/2025 11:00 AM EDT CCF BQXYQjztqjb29/22/2025 11:00 AM EDT SRMCOH PROTHROMBIN TIME INR W/O KRNACdyrgmv67/22/2025 11:00 AM EDT CCF PDEZqpzold13/22/2025 11:00 AM EDT CCF BOOKkuchrz25/22/2025 11:00 AM EDT ALL URIC ZEHSUircuew45/22/2025 11:00 AM EDT TBH JTKBBACYIRUayxqbx76/22/2025 11:00 AM EDT ALL IGDHtnlcls99/22/2025 11:00 AM EDT ALL CBC WITH AUTO KMRMGxzpgnx55/22/2025 11:00 AM EDT US OB BPP W NON-UHFQRB3905/19/2025 10:54 AM EDT TBH URINE T PROTEIN CREAT JWHDEDoajpdo14/22/2025 10:50 AM EDT POCT URINALYSIS NVTBZTJNWiaqgpo77/18/2025 10:08 AM EDT 33 weeks gestation of ([facility]) Third trimester ([facility]) POCT URINALYSIS DOWJXUEWStkxbuk51/03/2025 3:11 PM EDT 31 weeks gestation of ([facility]) Third trimester ([facility]) US OB FOLLOW UP TRANSABDOMINAL FEVQZVGMRprkuex63/03/2025 2:49 PM EDT Size of fetus inconsistent with dates in second trimester ([facility]) POCT URINALYSIS TUTMZMDNZqrymxn14/21/2025 10:45 AM EDT Third trimester ([facility]) 29 weeks gestation of ([facility]) POCT URINALYSIS DWCPMRMMZtzxmmq14/07/2025 10:59 AM EDT Second trimester ([facility]) 27 weeks gestation of ([facility]) CULTURE, URINE, MUBIZRWVryeamg80/04/2025 9:28 AM EDT Missed menses from Last 3 Months Results * (ABNORMAL) POCT urinalysis dipstick manually resulted (06/26/2025 9:55 AM EDT) Only the most recent of8 resultswithin the time period is included. ComponentValueRef RangeTest MethodAnalysis TimePerformed AtPathologist Signature Color, UAYellowClarity, UAClearGlucose, UANegativeNegative - 2000(110) ++++ mg/dLBilirubin, UANegativeNegative - 4(70) +++ mg/dLKetones, UANegativeNegative - 160(16) ++++ mg/dLSpec Grav, UA1.0201 - 1.03Blood, UAPositiveNegative - 50 Derick/mcLpH, UA6.05 - 9Protein, UA3+Negative - 2000(20) ++++ mg/dLUrobilinogen, UA 1.00.2 - 12 mg/dLLeukocytes, UAPositiveNegative - 500+++ Julio/mcLNitrite, UA NegativeNegative - PositiveSpecimen (Source)Anatomical Location / Laterality Collection Method / VolumeCollection TimeReceived AtgyGjgfq51/30/2025 9:55 AM EDT Narrative Authorizing ProviderResult TypeResult StatusCranberry Specialty HospitalOINT OF CARE TEST ENTER/EDIT ORDERABLESFinal Result * US OB BPP W NON-STRESS (06/23/2025 10:45 AM EDT) Only the most recent of4 resultswithin the time period is included. Anatomical RegionLateralityModalityOtherSpecimen (Source)Anatomical Location / LateralityCollection Method / VolumeCollection TimeReceived Time06/23/2025 10:45 AM EDT Narrative 06/23/2025 10:48 AM EDT [facility] ?[address] ? [place] [address] ? Ultrasound Report ? Signed ? Patient: CHERYL,CHENTE N ?MR#: [id number] ?? : 1995 ?Acct:[id number] ?? Age/Sex: 29 / F ?ADM Date: 06/23/25 ?? Loc: [facility] ??250-1 ? Attending Dr: Tyrell Adams D.O. ? Ordering Physician: Tyrell Adams D.O. ?? Date of Service: 06/23/25 ?? Procedure(s): US OB BPP w non-stress ?? Accession Number(s): [id number] ? cc: Tyrell Adams D.O.; Physician,Non-Staff Alejandra ? [facility] ? [address] ? [place] [address] ? Patient Name: ?? CHENTE GONZALEZ ? MRN: [facility]:[id number] ? date: 1995 ?Sex: F ?? Assigned Patient Location: US ?? Current Patient Location: US ?? Accession/Order Number: [id number] ?? Exam Date: 06/23/2025 ??10:03 ?Report Date: 06/23/2025 ??10:45 ? At the request of: ?? TYRELL ??ANGIE ??DO ? Procedure: ??US OB BPP w non-stress ? BIOPHYSICAL PROFILE: ? CLINICAL INFORMATION: Gestational diabetes mellitus ? COMPARISON: 06/16/2025 ? There is a single live intrauterine gestation in cephalic presentation. ??The ?? reported gestational age is 38 weeks 6 days. ??The heart rate umvrbuwy197 ?? beats per minute. ? FINDINGS: ? [...] M.D. ??06/23/2025 10:45 AM ? Dictation Location: [facility]--02 ? Electronically authenticated by: [id number] ??Y ?? Date: 06/23/2025 ??10:45 ? Dictated By: ?Rahel Mae M.D. ? Signed By: ?06/23/ 1048 ? DD/ 1045 ? TD/TT: ? Shoe Stamper: Procedure Note Radiology, Radiologist, - 06/23/2025 [place] [address] Ultrasound Report Signed Patient: CHENTE GONZALEZ NMR#: [id number] : 1995Acct:[id number] Age/Sex: FADM Date: 06/23/25 Loc: [facility] 250-[address]: Tyrell Adams D.O. Ordering Physician: Tyrell Adams D.O. Date of Service: 06/23/25 Procedure(s): US OB BPP w non-stress Accession Number(s): [id number] cc: Tyrell Adams D.O.; Physician,Non-Staff M.DPeggy The [place] [id number] Patient Name: CHENTE GONZALEZ MRN: [id number] date: 1995 Sex: F Assigned Patient Location: Current Patient Location: US Accession/Order Number: [id number] Exam Date: 06/23/2025 10:03 Report Date: 06/23/2025 10:45 At the request of: TYRELL ADAMS DO Procedure: US OB BPP w non-stress BIOPHYSICAL PROFILE: CLINICAL INFORMATION: Gestational diabetes mellitus COMPARISON: 06/16/2025 There is a single live intrauterine gestation in cephalic presentation.The reported gestational age is 38 weeks 6 days. The heart bevvughqmfqp833 beats per minute. FINDINGS: TONE: 1 or [...] Mae M.D. 06/23/2025 10:45 AM Dictation Location: [place] [address] Electronically authenticated by: [id number] Y Date: 0:45 Dictated By: Rahel Mae M.D. Signed By:06/23/25 1048 DD/ 1045 TD/TT: Shoe Stamper: Authorizing ProviderResult TypeResult StatusCorey Angie DOCLINISYNC IMAGINGFinal Result * US AMNIOTIC FLUID VOLUME (05/20/2025 11:33 AM EDT)Anatomical RegionLaterality ModalityRadiographic ImagingSpecimen (Source)Anatomical Location / Laterality Collection Method / VolumeCollection TimeReceived Time05/20/2025 11:33 AM EDT Narrative 05/20/2025 11:36 AM EDT [facility] ?[address] ? [place] [address] ? Ultrasound Report ? Signed ? Patient: CHENTE GONZALEZ ?MR#: [id number] ?? : 1995 ?Acct:[id number] ?? Age/Sex: 29 / F ?ADM Date: 05/20/25 ?? Loc: [facility] ??250-1 ? Attending Dr: Tyrell Adams D.O. ? Ordering Physician: Tyrell Adams D.O. ?? Date of Service: 05/20/25 ?? Procedure(s): US OB amniotic fluid vol ?? Accession Number(s): [id number] ? cc: Tyrell Adams D.O.; Physician,Non-Staff M.D. ? [facility] ? [address] ? [place] [address] ? Patient Name: ?? CHENTE GONZALEZ ? MRN: [id number] ? date: 1995 ?Sex: F ?? Assigned Patient Location: [facility] ?? Current Patient Location: US ?? Accession/Order Number: [id number] ?? Exam Date: 05/20/2025 ??11:10 ?Report Date: 05/20/2025 ??11:33 ? At the request of: ?? TYRELL ??ANGIE ??DO ? Procedure: ??US OB amniotic fluid vol ? ULTRASOUND OB AMNIOTIC FLUID VOLUME ? CLINICAL DATA: Oligohydramnios ? COMPARISON: BPP 05/17/2025 ? There is a single live [...] Dictation Location: [facility]-30 ? Electronically authenticated by: [id number] ??Y ?? Date: 05/20/2025 ??11:33 ? Dictated By: ?Rahel Mae M.D. ? Signed By: ?05/20/25 1136 ? DD/ 1133 ? TD/TT: ? Shoe Stamper: Procedure Note Radiology, Radiologist, MD - 05/20/2025 [place] [address] Ultrasound Report Signed Patient: CHENTE GONZALEZ NMR#: [id number] : 1995Acct:[id number] Age/Sex: 29 / FADM Date: 05/20/25 Loc: [facility] 250-[address]: Tyrell Adams D.O. Ordering Physician: Tyrlel Adams D.O. Date of Service: 05/20/25 Procedure(s): US OB amniotic fluid vol Accession Number(s): [id number] cc: Tyrell Adams D.O.; Physician,Non-Staff M.D. The [address] [address] Patient Name: CHENTE GONZALEZ MRN: [id number] date: 1995 Sex: F Assigned Patient Location: [facility] Current Patient Location: US Accession/Order Number: [id number] Exam Date: 05/20/2025 11:10 Report Date: 05/20/2025 [...] Mae M.D. 05/20/2025 11:33 AM Dictation Location: [place] [address] Electronically authenticated by: [id number] Y Date: 1:33 Dictated By: Rahel Mae M.D. Signed By:05/20/25 1136 DD/ 1133 TD/TT: Shoe Stamper: Authorizing ProviderResult TypeResult StatusCorenish Adams DOIMG XR PROCEDURESFinal Result * TBH CREATININE (05/19/2025 11:00 AM EDT)ComponentValueRef RangeTest Method Analysis TimePerformed AtPathologist SignatureCREATININE0.650.55 - 1.02 mg/dL TBHTBH EGFR-AF ARMENIAN>60>=60 mL/min/1.73m 2TBHTBH EGFR-NON AF ARMENIAN>60 >=60 mL/min/1.73m 2TBHSpecimen (Source)Anatomical Location / Laterality Collection Method / VolumeCollection TimeReceived Time05/19/2025 11:00 AM EDT 05/19/2025 11:06 AM EDT Narrative CLINISYNC - 05/19/2025 11:31 AM EDT Authorizing ProviderResult TypeResult StatusTyrell Adams DOCLINISYNCFinal Result Performing OrganizationAddressCity/State/ZIP CodePhone Number CLINISYNC TB[facility] * SRMCOH PROTHROMBIN TIME INR W/O COUM [...] Angie DOCLINISYNCFinal Result Performing OrganizationAddressCity/State/ZIP CodePhone Number [facility] * (ABNORMAL) MHPT FIBRINOGEN (05/19/2025 11:00 AM EDT)ComponentValueRef Range Test MethodAnalysis TimePerformed AtPathologist WcopdxnhvUSDYWNSIGB022(H)200 - 400 mg/dLTBHSpecimen (Source)Anatomical Location / LateralityCollection Method / VolumeCollection TimeReceived Time05/19/2025 11:00 AM EDT05/19/2025 11:06 AM EDT Narrative CLINISYNM - 05/19/2025 11:43 AM EDT Authorizing ProviderResult TypeResult StatusCorey Angie DOCLINISYNCFinal Result Performing OrganizationAddressCity/State/ZIP CodePhone Number [facility] * C[facility] AST (05/19/2025 11:00 AM EDT)ComponentValueRef RangeTest MethodAnalysis TimePerformed AtPathologist SignatureASPARTATE AMINO TZWTTIKCICW8787 - 37 U/L TBHSpecimen (Source)Anatomical Location / LateralityCollection Method / Volume Collection TimeReceived Time05/19/2025 11:00 AM EDT05/19/2025 11:06 AM EDT Narrative CLINISYNC - 05/19/2025 11:31 AM EDT Authorizing ProviderResult TypeResult StatusCorey Angie DOCLINISYNCFinal Result Performing OrganizationAddressCity/State/ZIP CodePhone Number [facility] * [facility] APTT (05/19/2025 11:00 AM EDT)ComponentValueRef RangeTest MethodAnalysis TimePerformed AtPathologist SignaturePARTIAL THROMBOPLASTIN TIME24.822.3 - 36.2 secTBHSpecimen (Source)Anatomical Location / LateralityCollection Method / VolumeCollection TimeReceived Time05/19/2025 11:00 AM EDT05/19/2025 11:06 AM EDT Narrative CLINISYNC - 05/19/2025 11:43 AM EDT Authorizing ProviderResult TypeResult StatusCorey Angie DOCLINISYNCFinal Result Performing OrganizationAddressCity/State/ZIP CodePhone Number [facility] * [facility] ALT (05/19/2025 11:00 AM EDT)ComponentValueRef RangeTest MethodAnalysis TimePerformed AtPathologist SignatureALANINE MRNAYQKBSLUCFXBN7641 - 59 U/LTBH Specimen (Source)Anatomical Location / LateralityCollection Method / Volume Collection TimeReceived Time05/19/2025 11:00 AM EDT05/19/2025 11:06 AM EDT Narrative CLINISYNM - 05/19/2025 11:31 AM EDT Authorizing ProviderResult TypeResult StatusCorey Angie DOCLINISYNCFinal Result Performing OrganizationAddressCity/State/ZIP CodePhone Number [facility] * ALL URIC ACID (05/19/2025 11:00 AM EDT)ComponentValueRef RangeTest Method Analysis TimePerformed AtPathologist SignatureURIC ACID4.42.6 - 6.0 mg/dLTBH Specimen (Source)Anatomical Location / LateralityCollection Method / Volume Collection TimeReceived Time05/19/2025 11:00 AM EDT05/19/2025 11:06 AM EDT Narrative CLINISYNC - 05/19/2025 11:31 AM EDT Authorizing ProviderResult TypeResult StatusCorey Angie DOCLINISYNCFinal Result Performing OrganizationAddressty/State/ZIP CodePhone Number [facility] * (ABNORMAL) ALL CBC WITH AUTO DIFF (05/19/2025 11:00 AM EDT)ComponentValueRef RangeTest MethodAnalysis TimePerformed AtPathologist SignatureTBH WBC10.54.0 - 11.0 10 3/uLTBHTBH RBC4.09(L)4.20 - 5.40 10 6/uLTBHTBH HGB12.712.0 - 16.0 g/dLTBHTBH HCT35.6(L)36.0 - 48.0 %TBHTBH MCV87.081.0 - 99.0 fLTBHTBH MCH31.1 26.7 - 34.0 pgTBHTBH MCHC35.7(H)29.9 - 35.2 g/dLTBHTBH RDW11.911.0 - 15.0 %TBH TBH DLQ060305 - 450 10 3/uLTBHTBH MPV9.79.5 - 13.5 fLTBHNEUTROPHILS PERCENT AUTO76.3(H)43.0 - 75.0 %TBHLYMPHOCYTES PERCENT AUTO14.9(L)20.5 - 60.0 %TBH MONOCYTES PERCENT AUTO6.81.7 - 12.0 %TBHTBH EO %0.7(L)0.9 - 7.0 %TBHBASOPHILS PERCENT AUTO0.40.2 - 2.0 %TBHIMMATURE GRANULOCYTES PCT AUTO0.9(H)0.0 - 0.5 % TBHNEUTROPHILS ABSOLUTE AUTO8.0(H)1.4 - 6.5 10 3/uLTBHLYMPHOCYTES ABSOLUTE AUTO1.61.2 - 3.8 10 3/uLTBHMONOCYTES ABSOLUTE AUTO0.70.3 - 0.8 10 3/uLTBHTBH EO #0.10.0 - 0.7 10 3/uLTBHBASOPHILS ABSOLUTE AUTO0.00.0 - 0.1 10 3/uLTBH IMMATURE GRANULOCYTES ABS AUTO0.09(H)0.00 - 0.03 10 3/uLTBHSpecimen (Source) Anatomical Location / LateralityCollection Method / VolumeCollection Time Received Time05/19/2025 11:00 AM EDT05/19/2025 11:06 AM EDT Narrative CLINISYNC - 05/19/2025 11:15 AM EDT Authorizing ProviderResult TypeResult StatusCorey Angie DOCLINISYNCFinal Result Performing OrganizationAddressCity/State/ZIP CodePhone Number [facility]INIS[facility]NC [facility] * ALL BUN (05/19/2025 11:00 AM EDT)ComponentValueRef RangeTest MethodAnalysis TimePerformed AtPathologist SignatureBLOOD UREA NITROGEN7.07.0 - 18.0 mg/dLTBH Specimen (Source)Anatomical Location / LateralityCollection Method / Volume Collection TimeReceived Time05/19/2025 11:00 AM EDT05/19/2025 11:06 AM EDT Narrative ROGER - 05/19/2025 11:31 AM EDT Authorizing ProviderResult TypeResult StatusCorey Angie DOCLINISYNCFinal Result Performing OrganizationAddressCity/State/ZIP CodePhone Number MLNM [facility] * (ABNORMAL) TBH URINE T PROTEIN CREAT RATIO (05/19/2025 10:50 AM EDT)Component ValueRef RangeTest MethodAnalysis TimePerformed AtPathologist SignatureTOTAL PROTEIN URINE NJHLAB91.9(H)<=11.9 mg/dLTBHCREATININE URINE OPWQLN54.1120.00 - 300.00 mg/dLTBHPROTEIN CREATININE RATIO URINE0.72TBHSpecimen (Source) Anatomical Location / LateralityCollection Method / VolumeCollection Time Received Time05/19/2025 10:50 AM EDT05/19/2025 11:06 AM EDT Narrative MLNM - 05/19/2025 11:55 AM EDT Authorizing ProviderResult TypeResult StatusCorey Angie DOCLINISYNCFinal Result Performing OrganizationAddressCity/State/ZIP CodePhone Number MLNC TB * US OB follow up transabdominal approach [...] Ramana Lechuga MD Authorizing ProviderResult TypeResult StatusDeyanira BROWER OB US PROCEDURES Final Result * Urine culture (03/31/2025 9:28 AM EDT)Specimen (Source)Anatomical Location / LateralityCollection Method / VolumeCollection TimeReceived TimeUrineUrine specimen obtained by clean catch procedure / Unknown Narrative Authorizing ProviderResult TypeResult StatusTyrell MONTERROSO MICROBIOLOGY - GENERAL ORDERABLESFinal ResultPerforming OrganizationAddressCity/State/ZIP Code Phone Number EXTERNAL LAB from Last 3 Months Insurance
[2025-06-26 11:10] VITALS: BP 135/79; PULSE 105
== END 2025-06-26 11:55 | disposition home or self-care (01) ==
LOC: FBCO 11:02 → FBC 11:04
PROVIDERS: Visit Provider Obstetrics & Gynecology
DX: O24.419 Gestational diabetes mellitus in pregnancy, unspecified control (principal); O99.283 Endocrine, nutritional and metabolic diseases complicating pregnancy, third trimester; Z3A.39 39 weeks gestation of pregnancy
CPT/HCPCS: 59025

== ENCOUNTER 2025-06-30 10:07 | Outpatient (OUT) | payer OTHER, SELFPAY ==
--- OUTSIDE RECORDS SUMMARY | 2025-06-19 08:40 | XMS_ITS | Encounter Summary ---
Author Organization [facility] Address [address] [place] [address] Care Team Providers Care Drag Sawyer Name Role Phone Unavailable Primary Care Provider Unavailabl e Reason for Visit * ReasonCommentsRoutine Visit Encounter Details DateTypeDepartmentCare Team (Latest Contact Info)Palnbaolrvm87/23/2025 9:40 AM EDTRoutine [facility] [address] [place] [address] Deyanira Martinez PA [address] [place] [address] Third trimester ([facility]); 38 weeks gestation of ([facility]) Social History Tobacco UseTypesPacks/DayYears UsedDateSmoking Tobacco: Never AssessedPHQ-2 AnswerDate RecordedPatient Health Questionnaire-2 Ftixz396 Estimated Date of KrzotyqzKyfnpghyTrl16/04/2025ased on UltrasoundSex and Gender InformationValueDate RecordedSex Assigned at EkahwYokftk41/27/2025 5:56 PM EDT Legal VpfJrwwng10/15/2023 7:00 PM EDTGender NwogaxylWqpjkf11/27/2025 5:56 PM EDT Sexual OrientationNot on filedocumented as of this encounter Last Filed Vital Signs Vital SignReadingTime TakenCommentsBlood Iduuovvt104/7006/19/2025 10:26 AM EDT Pulse--Temperature--Respiratory Rate--Oxygen Saturation--Inhaled Oxygen Concentration--Pgdtzn547 kg (228 lb)06/19/2025 10:26 AM EDTHeight--Body Mass [...] to check FSBS. Blood Glucose Monitoring Suppl ([employer] Glucometer) w/Device kit 1 kit, Does not [...] ([facility]) Z34.93 2. 38 weeks gestation of ([facility]) Z3A.38 POCT urinalysis dipstick manually resulted Return [...] Plan of Treatment DateTypeDepartmentCare Team (Latest Contact Info)Dzgpfdmhyaj47/16/2025 10:30 AM ESTPostpartum Visit [facility] [address] [place] [phone] Deyanira Martinez PA [address] [place] [address] documented as of this encounter Procedures Procedure NamePriorityDate/TimeAssociated DiagnosisCommentsPOCT URINALYSIS MQRZMMAYCnclkwb87/23/2025 10:26 AM EDT 38 weeks gestation of ([facility]) documented in this encounter Results * [...] / LateralityCollection Method / VolumeCollection Time Received VsjyVznnf14/23/2025 10:26 AM EDT Narrative Authorizing ProviderResult TypeResult StatusSentara [facility] Hospital TEST ENTER/EDIT ORDERABLESFinal Result documented in this encounter Visit Diagnoses Diagnosis Third trimester ([facility]) state, incidental 38 weeks gestation of ([facility]) documented in this encounter
--- OUTSIDE RECORDS SUMMARY | 2025-06-26 08:20 | XMS_ITS | Encounter Summary ---
Author Organization [facility] Address [address] [place] [address] Care Team Providers Care Project Production Engineer Name Role Phone Unavailable Primary Care Provider Unavailabl e Reason for Visit * ReasonCommentsRoutine Visit Encounter Details DateTypeDepartmentCare Team (Latest Contact Info)Kskfdvwombw57/30/2025 9:20 AM EDTRoutine [facility] [address] [place] [phone] Deyanira Martinez PA [address] [place] [address] 39 weeks gestation of ([facility]); Third trimester ([facility]) Social History Tobacco UseTypesPacks/DayYears UsedDateSmoking Tobacco: Never AssessedPHQ-2 AnswerDate RecordedPatient Health Questionnaire-2 Lxvhb624 Estimated Date of OzqnaqoeDbtbkjppUad92/04/2025ased on UltrasoundSex and Gender InformationValueDate RecordedSex Assigned at QqcszBijyqo93/27/2025 5:56 PM EDT Legal HqtNnubbz11/15/2023 7:00 PM EDTGender LhjgaepuZkfqzf40/27/2025 5:56 PM EDT Sexual OrientationNot on filedocumented as of this encounter Last Filed Vital Signs Vital SignReadingTime TakenCommentsBlood Laospuyg656/801 9:45 AM EDT Pulse--Temperature--Respiratory Rate--Oxygen Saturation--Inhaled Oxygen Concentration--Onymng571 kg (233 lb 12.8 oz)06/26/2025 9:45 AM [...] nursing note reviewed. Exam conducted with a insurance examiner present. Vitals: Estimated body mass index is 38.91 kg/m?? as calculated from the following: Height as of 21: 5' 5 . Weight as of this encounter: 233 lb 12.8 oz. BP: 130/80 Patient's last menstrual period was 10/04/2024 (approximate). Assessment/Plan ICD-10-CM 1. 39 weeks gestation of ([facility]) Z3A.39 POCT urinalysis dipstick manually resulted 2. Third trimester ([facility]) Z34.93 POCT urinalysis dipstick manually resulted Return [...] Plan of Treatment DateTypeDepartmentCare Team (Latest Contact Info)Efljwivswlo23/16/2025 10:30 AM ESTPostpartum Visit [facility] [address] [place] [phone] Deyanira Martinez PA [address] [place] [address] documented as of this encounter Procedures Procedure NamePriorityDate/TimeAssociated DiagnosisCommentsPOCT URINALYSIS XGVTGEKDIltiemg69/30/2025 9:55 AM EDT 39 weeks gestation of ([facility]) Third trimester ([facility]) documented in this encounter Results * [...] / LateralityCollection Method / VolumeCollection Time Received DjqqOjkui05/30/2025 9:55 AM EDT Narrative Authorizing ProviderResult TypeResult StatusBon [facility] TEST ENTER/EDIT ORDERABLESFinal Result documented in this encounter Visit Diagnoses Diagnosis 39 weeks gestation of ([facility]) Third trimester ([facility]) state, incidental documented in this encounter
--- OUTSIDE RECORDS SUMMARY | 2025-06-30 10:10 | XMS_ITS | Encounter Summary ---
Author Organization [facility] Address [address] [place] [address] Care Team Providers Care Jockey'S Agent Name Role Phone Unavailable Primary Care Provider Unavailabl e Encounter Details DateTypeDepartmentCare Team (Latest Contact Info)Pkayhxdvbnv14/28/2025Patient Outreach [facility] [address] [place] [address] Deyanira Phillips LPN [address] [place] [address] Social History Tobacco UseTypesPacks/DayYears UsedDateSmoking Tobacco: Never AssessedPHQ-2 AnswerDate RecordedPatient Health Questionnaire-2 Vpcng792 Estimated Date of EvepnvtkWplrrmwaOsy93/04/2025Based on UltrasoundSex and Gender InformationValueDate RecordedSex Assigned at RjbwvBmnljw18/27/2025 5:56 PM EDT Legal RziRpwntj07/15/2023 7:00 PM EDTGender GcfbfhiiQwyorp61/27/2025 5:56 PM EDT Sexual OrientationNot on filedocumented as of this encounter Progress Notes * Deyanira Phillips LPN - 06/24/2025 10:08 AM EDT Monthly Outreach. Call to pt X2, LVM. documented in this encounter Plan of Treatment DateTypeDepartmentCare Team (Latest Contact Info)Yohiltnwnnv13/16/2025 10:30 AM ESTPostpartum Visit [facility] Kadie VARGAS [address] [place] [phone] Deyanira Martinez PA [address] [facility] [address] [place] [address] documented as of this encounter Visit Diagnoses Not on filedocumented in this encounter
--- OUTSIDE RECORDS SUMMARY | 2025-06-30 10:10 | XMS_ITS | Clinical Summary ---
Author Organization [facility] Healthcare Address [address] [place] [address] Care Team Providers Care Child And Adolescent Psychologist Name Role Phone Unavailable Primary Care Provider Unavailabl e Allergies Active AllergyReactionsCriticalityNoted DateCommentsPenicillin GUnknown 06/02/20259016Ftmmpqvsung08/28/2025 Other Reaction(s): Unknown Medications MedicationSigDispense QuantityRefillsLast FilledStart [...] 4times daily. 1 kit /30/2025Discontinued Encounters DateTypeDepartmentCare HxotRuzoozobxam07/30/2025 9:20 AM EDTRoutine [facility] Kadie Zamora [address] [place] [address] Deyanira Martinez PA 39 weeks gestation of ([facility]); Third trimester ([facility])06/26/2025amboo flowsheet [facility] Kadie VARGAS [address] [place] [place] [address] [phone] Deyanira Martinez PA 06/24/2025Patient Outreach [facility] [address] [place] [address] Deyanira Phillips LPN 06/23/2025linisync Result Encounter NOMS External Department Unsolicited Tyrell Adams DO 06/19/2025 9:40 AM EDTRoutine [facility] Kaide Zamora [facility] [place] [place] [address] [phone] Deyanira Martinez PA Third trimester ([facility]); 38 weeks gestation of ([facility])06/19/2025amboo flowsheet [facility] Kadie VARGAS [address] [place] [address] [address] [place] [phone] Deyanira Martinez PA 06/12/2025 9:40 AM EDTRoutine [facility] Kadie Zamora [facility] [place] [place] [address] Tyrell Adams, Third trimester ([facility]); 37 weeks gestation of ([facility])06/12/2025amboo flowsheet [facility] Kadie VARGAS [address] [place] [address] [address] [place] [address] [phone] Tyrell Adams DO 06/05/2025Telephone [facility] Kadie Zamora [facility] [place] [place] [address] Britt Christensen MA 06/02/2025 11:20 AM EDTRoutine [facility]S Kadie MORENOGYN [address] [place] [address] Nabila Avila NP 35 weeks gestation of ([facility]); Third trimester ([facility])5Clinisync Result Encounter NOMS External Department Unsolicited Tyrell Adams, DO 5Abstract [facility] [address] [place] [address] Deyanira Phillips, CALCINER OPERATOR 05/26/2025Patient Outreach [facility] [address] [place] [address] Deyanira Phillips, CALCINER OPERATOR 5Clinisync Result Encounter NOMS External Department Unsolicited Tyrell Adams, DO 5Abstract [facility]S Kadie MORENOGYCarlos Alberto [address] [place] [place] [address] Tyrell Adams, DO 5Clinisync Result Encounter NOMS External Department Unsolicited Tyrell Adams, DO 05/19/2025linisync Result Encounter NOMS External Department Unsolicited Tyrell Adams, DO 05/15/2025 9:50 AM EDTRoutine NOMS Kadie Zamora [address] [place] [address] Deyanira Martinez PA 33 weeks gestation of ([facility]); Third trimester ([facility]); Gestational diabetes mellitus (GDM), antepartum, gestational diabetes method of control unspecified([facility])5Bamboo flowsheet N[facility]S Kadie Zamora [address] [place] [address] Deyanira Martinez PA 04/30/2025 3:00 PM EDTRoutine NOMS Kadie Zamora [address] [place] [address] Tyrell Adams DO 31 weeks gestation of ([facility]); Third trimester ([facility]); Gestational diabetes mellitus (GDM), antepartum, gestational diabetes method of control unspecified([facility])04/30/2025 2:30 PM EDTAncillary Procedure [facility]S Kadie OBMICKYN [address] [place] [place] [address] Size of fetus inconsistent with dates in second trimester ([facility])04/17/2025 9:50 AM EDTRoutine NOMS Kadie MORENOGYN [address] [place] [address] [place] [address] Deyanira Martinez PA Size of fetus inconsistent with dates in second trimester ([facility]) (Primary Dx); Third trimester ([facility]); 29 weeks gestation of ([facility])04/17/2025amboo flowsheet [facility]S Kadie VARGAS [address] [place] [address] [place] [address] Deaynira Martinez PA 04/03/2025 10:40 AM EDTRoutine NOMS Kadie VARGAS [address] [place] [address] [place] [address] Tyrell Adams DO Second trimester ([facility]); 27 weeks gestation of ([facility])04/03/2025amboo flowsheet [facility] Kadie VARGAS [address] [place] [address] [place] [address] Tyrell Adams DO from Last 3 Months Social History Tobacco UseTypesPacks/DayYears UsedDateSmoking Tobacco: Never AssessedPHQ-2 AnswerDate RecordedPatient Health Questionnaire-2 Szejz454 Estimated Date of VljmrdjsDyigxaztMgb56/04/2025Based on UltrasoundSex and Gender InformationValueDate RecordedSex Assigned at CobxjTfxbaz71/27/2025 5:56 PM EDT Legal ZrtGqosap93/15/2023 7:00 PM EDTGender ExuqbxxeAtcysl68/27/2025 5:56 PM EDT Sexual OrientationNot on file Last Filed Vital Signs Vital SignReadingTime TakenCommentsBlood Oalgxrxn124/8010 9:45 AM EDT Pulse--Temperature--Respiratory Rate--Oxygen Saturation--Inhaled Oxygen Concentration--Pnqhal424 kg (233 lb 12.8 oz)06/26/2025 9:45 AM BKBAgcdfl313.1 cm (5' 5 )12/01/2020 12:00 PM EDTBody Mass Index38.9112/01/2020 12:00 PM EDT Plan of Treatment DateTypeDepartmentCare Team (Latest Contact Info)Dzyjdlpplrw82/16/2025 10:30 AM ESTPostpartum Visit NOMS Kadie OBGYCarlos Alberto [address] [place] [place] [address] Deyanira Martinez PA [address] [facility] [address] [place] [address] Procedures Procedure NamePriorityDate/TimeAssociated DiagnosisCommentsPOCT URINALYSIS WDIRTUBKZykpzvq95/30/2025 9:55 AM EDT 39 weeks gestation of ([facility]) Third trimester ([facility]) US OB BPP W NON-JLEJJW0706/23/2025 10:45 AM EDT POCT URINALYSIS WNQPCWOMCknqdzd57/23/2025 10:26 AM EDT 38 weeks gestation of ([facility]) POCT URINALYSIS JAJDZFOXQwgoppe11/16/2025 9:56 AM EDT Third trimester ([facility]) POCT URINALYSIS CSIILVZVYyjkntz05/06/2025 11:53 AM EDT 35 weeks gestation of ([facility]) US OB BPP W NON-KDLONP6406/02/2025 10:52 AM EDT US OB BPP W NON-PFKFYB94/ 11:39 AM EDT US AMNIOTIC FLUID DMAKDJ6205/20/2025 11:33 AM EDT MHPT PZHAKQICIEKbrkzja84/22/2025 11:00 AM EDT C[facility] ROJCCwjqcsp47/22/2025 11:00 AM EDT SRMCOH PROTHROMBIN TIME INR W/O DATKHmcpkmg05/22/2025 11:00 AM EDT C[facility] IKHZjjqwyr96/22/2025 11:00 AM EDT [facility] UGCBbtzxnf54/22/2025 11:00 AM EDT ALL URIC YQYJRkcksja72/22/2025 11:00 AM EDT TBH BZBXURRSHOOcpolgi71/22/2025 11:00 AM EDT ALL DSZUiohjli66/22/2025 11:00 AM EDT ALL CBC WITH AUTO MMAFKlujuuw92/22/2025 11:00 AM EDT US OB BPP W NON-HNTLGL4805/19/2025 10:54 AM EDT TBH URINE T PROTEIN CREAT ZABTWQlzmcix15/22/2025 10:50 AM EDT POCT URINALYSIS PFMHPMNFYstvsbw78/18/2025 10:08 AM EDT 33 weeks gestation of ([facility]) Third trimester ([facility]) POCT URINALYSIS QAYOYYHCKywaufz40/03/2025 3:11 PM EDT 31 weeks gestation of ([facility]) Third trimester ([facility]) US OB FOLLOW UP TRANSABDOMINAL EGNHEWGEPcpvxtr18/03/2025 2:49 PM EDT Size of fetus inconsistent with dates in second trimester ([facility]) POCT URINALYSIS EQQEEZHZHtcppsx48/21/2025 10:45 AM EDT Third trimester ([facility]) 29 weeks gestation of ([facility]) POCT URINALYSIS TYBVXDFLJrleqil49/07/2025 10:59 AM EDT Second trimester ([facility]) 27 weeks gestation of ([facility]) CULTURE, URINE, VGJFINSWygidvv49/04/2025 9:28 AM EDT Missed menses from Last [...] / Laterality Collection Method / VolumeCollection TimeReceived QejrEwirq20/30/2025 9:55 AM EDT Narrative Authorizing ProviderResult TypeResult StatusLakeville HospitalOINT OF CARE TEST ENTER/EDIT ORDERABLESFinal Result * US OB BPP W NON-STRESS (06/23/2025 10:45 AM EDT) Only the most recent of4 resultswithin the time period is included. Anatomical RegionLateralityModalityOtherSpecimen (Source)Anatomical Location / LateralityCollection Method / VolumeCollection TimeReceived Time06/23/2025 10:45 AM EDT Narrative 06/23/2025 10:48 AM EDT [facility] ?[address] ? [place] [address] ? Ultrasound Report ? Signed ? Patient: CHERYL,CHENTE N ?MR#: [id number] ?? : 1995 ?Acct:[id number] ?? Age/Sex: 29 / F ?ADM Date: 06/23/25 ?? Loc: [facility] ??250-1 ? Attending Dr: Tyrell Adams D.O. ? Ordering Physician: Tyrell Adams D.O. ?? Date of Service: 06/23/25 ?? Procedure(s): US OB BPP w non-stress ?? Accession Number(s): [id number] ? cc: Tyrell Adams D.O.; Physician,Non-Staff Alejandra ? [facility] ? [address] ? [place] [address] ? Patient Name: ?? CHENTE GONZALEZ ? MRN: [facility]:[id number] ? date: 1995 ?Sex: F ?? Assigned Patient Location: US ?? Current Patient Location: US ?? Accession/Order Number: [id number] ?? Exam Date: 06/23/2025 ??10:03 ?Report Date: 06/23/2025 ??10:45 ? At the request of: ?? TYRELL ??ANGIE ??DO ? Procedure: ??US OB BPP w non-stress ? BIOPHYSICAL PROFILE: ? CLINICAL INFORMATION: Gestational diabetes mellitus ? COMPARISON: 06/16/2025 ? There is a single live intrauterine gestation in cephalic presentation. ??The ?? reported gestational age is 38 weeks 6 days. ??The heart rate tgyprlzr438 ?? beats per minute. ? FINDINGS: ? [...] M.D. ??06/23/2025 10:45 AM ? Dictation Location: [facility]02 ? Electronically authenticated by: [id number] ??Y ?? Date: 06/23/2025 ??10:45 ? Dictated By: ?Rahel Mae M.D. ? Signed By: ?06/23/ 1048 ? DD/ 1045 ? TD/TT: ? Clinical Laboratory Science Professor: Procedure Note Radiology, Radiologist, - 06/23/2025 [place] [address] Ultrasound Report Signed Patient: CHENTE GONZALEZ NMR#: [id number] : 1995Acct:[id number] Age/Sex: FADM Date: 06/23/25 Loc: [facility] 250-[address]: Tyrell Adams D.O. Ordering Physician: Tyrell Adams D.O. Date of Service: 06/23/25 Procedure(s): US OB BPP w non-stress Accession Number(s): [id number] cc: Tyrell Adams D.O.; Physician,Non-Staff M.DPeggy The [place] [id number] Patient Name: CHENTE GONZALEZ MRN: [id number] date: 1995 Sex: F Assigned Patient Location: Current Patient Location: US Accession/Order Number: [id number] Exam Date: 06/23/2025 10:03 Report Date: 06/23/2025 10:45 At the request of: TYRELL ADAMS DO Procedure: US OB BPP w non-stress BIOPHYSICAL PROFILE: CLINICAL INFORMATION: Gestational diabetes mellitus COMPARISON: 06/16/2025 There is a single live intrauterine gestation in cephalic presentation.The reported gestational age is 38 weeks 6 days. The heart beats per minute. FINDINGS: TONE: 1 or [...] Mae M.D. 06/23/2025 10:45 AM Dictation Location: [place] [address] Electronically authenticated by: [id number] Y Date: 0:45 Dictated By: Rahel Mae M.D. Signed By:06/23/25 1048 DD/ 1045 TD/TT: Clinical Laboratory Science Professor: Authorizing ProviderResult TypeResult StatusCorey Angie DOCLINISYNC IMAGINGFinal Result * US AMNIOTIC FLUID VOLUME (05/20/2025 11:33 AM EDT)Anatomical RegionLaterality ModalityRadiographic ImagingSpecimen (Source)Anatomical Location / Laterality Collection Method / VolumeCollection TimeReceived Time05/20/2025 11:33 AM EDT Narrative 05/20/2025 11:36 AM EDT [facility] ?[address] ? [place] [address] ? Ultrasound Report ? Signed ? Patient: CHENTE GONZALEZ ?MR#: [id number] ?? : 1995 ?Acct:[id number] ?? Age/Sex: 29 / F ?ADM Date: 05/20/25 ?? Loc: [facility] ??250-1 ? Attending Dr: Tyrell Adams D.O. ? Ordering Physician: Tyrell Adams D.O. ?? Date of Service: 05/20/25 ?? Procedure(s): US OB amniotic fluid vol ?? Accession Number(s): [id number] ? cc: Tyrell Adams D.O.; Physician,Non-Staff M.D. ? [facility] ? [address] ? [place] [address] ? Patient Name: ?? CHENTE GONZALEZ ? MRN: [id number] ? date: 1995 ?Sex: F ?? Assigned Patient Location: [facility] ?? Current Patient Location: US ?? Accession/Order Number: [id number] ?? Exam Date: 05/20/2025 ??11:10 ?Report Date: [...] Dictation Location: [facility]-30 ? Electronically authenticated by: [id number] ??Y ?? Date: 05/20/2025 ??11:33 ? Dictated By: ?Rahel aMe M.D. ? Signed By: ?05/20/25 1136 ? DD/ 1133 ? TD/TT: ? Clinical Laboratory Science Professor: Procedure Note Radiology, Radiologist, MD - 05/20/2025 [place] [address] Ultrasound Report Signed Patient: CHENTE GONZALEZ NMR#: [id number] : 1995Acct:[id number] Age/Sex: 29 / FADM Date: 05/20/25 Loc: [facility] 250-[address]: Tyrell Adams D.O. Ordering Physician: Tyrell Adams D.O. Date of Service: 05/20/25 Procedure(s): US OB amniotic fluid vol Accession Number(s): [id number] cc: Tyrell Adams D.O.; Physician,Non-Staff M.D. The [address] [address] Patient Name: CHENTE GONZALEZ MRN: [id number] date: 1995 Sex: F Assigned Patient Location: [facility] Current Patient Location: US Accession/Order Number: [id number] Exam Date: 05/20/2025 11:10 Report Date: 05/20/2025 [...] Mae M.D. 05/20/2025 11:33 AM Dictation Location: [place] [address] Electronically authenticated by: [id number] Y Date: 1:33 Dictated By: Rahel Mae M.D. Signed By:05/20/25 1136 DD/ 1133 TD/TT: Clinical Laboratory Science Professor: Authorizing ProviderResult TypeResult StatusCorenish Adams DOIMG XR PROCEDURESFinal Result * TBH CREATININE (05/19/2025 11:00 AM EDT)ComponentValueRef RangeTest Method Analysis TimePerformed AtPathologist SignatureCREATININE0.650.55 - 1.02 mg/dL TBHTBH EGFR-AF LUXEMBOURGER>60>=60 mL/min/1.73m 2TBHTBH EGFR-NON AF LUXEMBOURGER>60 >=60 mL/min/1.73m 2TBHSpecimen (Source)Anatomical Location / Laterality [...] Angie DOCLINISYNCFinal Result Performing OrganizationAddressCity/State/ZIP CodePhone Number [facility] * (ABNORMAL) MHPT FIBRINOGEN (05/19/2025 11:00 AM EDT)ComponentValueRef Range Test MethodAnalysis TimePerformed AtPathologist TdpiodduuZADNQYQDTN839(H)200 - 400 mg/dLTBHSpecimen (Source)Anatomical Location / LateralityCollection Method / VolumeCollection TimeReceived Time05/19/2025 11:00 AM EDT05/19/2025 11:06 AM EDT Narrative CLINISYNE - 05/19/2025 11:43 AM EDT Authorizing ProviderResult TypeResult StatusCorey Angie DOCLINISYNCFinal Result Performing OrganizationAddressCity/State/ZIP CodePhone Number [facility] * CCF AST (05/19/2025 11:00 AM EDT)ComponentValueRef RangeTest MethodAnalysis TimePerformed AtPathologist SignatureASPARTATE AMINO ODPCRQODGDX0485 - 37 U/L TBHSpecimen (Source)Anatomical Location / LateralityCollection Method / Volume Collection TimeReceived Time05/19/2025 11:00 AM EDT05/19/2025 11:06 AM EDT Narrative CLINISYNC - 05/19/2025 11:31 AM EDT Authorizing ProviderResult TypeResult StatusCorey Angie DOCLINISYNCFinal Result Performing OrganizationAddressCity/State/ZIP CodePhone Number [facility] * CCF APTT (05/19/2025 11:00 AM EDT)ComponentValueRef RangeTest MethodAnalysis TimePerformed AtPathologist SignaturePARTIAL THROMBOPLASTIN TIME24.822.3 - 36.2 secTBHSpecimen (Source)Anatomical Location / LateralityCollection Method / VolumeCollection TimeReceived Time05/19/2025 11:00 AM EDT05/19/2025 11:06 AM EDT Narrative CLINISYNC - 05/19/2025 11:43 AM EDT Authorizing ProviderResult TypeResult StatusCorey Angie DOCLINISYNCFinal Result Performing OrganizationAddressCity/State/ZIP CodePhone Number [facility] * [facility] ALT (05/19/2025 11:00 AM EDT)ComponentValueRef RangeTest MethodAnalysis TimePerformed AtPathologist SignatureALANINE UNBCJXEDENPMMDYQ2508 - 59 U/LTBH Specimen (Source)Anatomical Location / LateralityCollection Method / Volume Collection TimeReceived Time05/19/2025 11:00 AM EDT05/19/2025 11:06 AM EDT Narrative CLINISYNE - 05/19/2025 11:31 AM EDT Authorizing ProviderResult TypeResult StatusCorey Angie DOCLINISYNCFinal Result Performing OrganizationAddressCity/State/ZIP CodePhone Number [facility] * ALL URIC ACID (05/19/2025 11:00 AM EDT)ComponentValueRef RangeTest Method Analysis TimePerformed AtPathologist SignatureURIC ACID4.42.6 - 6.0 mg/dLTBH Specimen (Source)Anatomical Location / LateralityCollection Method / Volume Collection TimeReceived Time05/19/2025 11:00 AM EDT05/19/2025 11:06 AM EDT Narrative CLINISYNC - 05/19/2025 11:31 AM EDT Authorizing ProviderResult TypeResult StatusCorey Angie DOCLINISYNCFinal Result Performing OrganizationAddressty/State/ZIP CodePhone Number [facility] * (ABNORMAL) ALL CBC WITH AUTO DIFF (05/19/2025 11:00 AM EDT)ComponentValueRef RangeTest MethodAnalysis TimePerformed AtPathologist SignatureTBH WBC10.54.0 - 11.0 10 3/uLTBHTBH RBC4.09(L)4.20 - 5.40 10 6/uLTBHTBH HGB12.712.0 - 16.0 g/dLTBHTBH HCT35.6(L)36.0 - 48.0 %TBHTBH MCV87.081.0 - 99.0 fLTBHTBH MCH31.1 26.7 - 34.0 pgTBHTBH MCHC35.7(H)29.9 - 35.2 g/dLTBHTBH RDW11.911.0 - 15.0 %TBH TBH TET149468 - 450 10 3/uLTBHTBH MPV9.79.5 - 13.5 [...] DOCLINISYNCFinal Result Performing OrganizationAddressCity/State/ZIP CodePhone Number CLINISYNC [facility] * ALL BUN (05/19/2025 11:00 AM EDT)ComponentValueRef RangeTest MethodAnalysis TimePerformed AtPathologist SignatureBLOOD UREA NITROGEN7.07.0 - 18.0 mg/dLTBH Specimen (Source)Anatomical Location / LateralityCollection Method / Volume Collection TimeReceived Time05/19/2025 11:00 AM EDT05/19/2025 11:06 AM EDT Narrative ROGER - 05/19/2025 11:31 AM EDT Authorizing ProviderResult TypeResult StatusCorey Angie DOCLINISYNCFinal Result Performing OrganizationAddressCity/State/ZIP CodePhone Number [facility] * (ABNORMAL) TBH URINE T PROTEIN CREAT RATIO (05/19/2025 10:50 AM EDT)Component ValueRef RangeTest MethodAnalysis TimePerformed AtPathologist SignatureTOTAL PROTEIN URINE PYBQNW59.9(H)<=11.9 mg/dLTBHCREATININE URINE SZMWCR52.1120.00 - 300.00 mg/dLTBHPROTEIN CREATININE RATIO URINE0.72TBHSpecimen (Source) Anatomical Location / LateralityCollection Method / VolumeCollection Time Received Time05/19/2025 10:50 AM EDT05/19/2025 11:06 AM EDT Narrative MLNE - 05/19/2025 11:55 AM EDT Authorizing ProviderResult [...]
--- OUTSIDE RECORDS SUMMARY | 2025-06-30 10:10 | XMS_ITS | Encounter Summary ---
Author Organization [facility] Address [address] [place] [address] Care Team Providers Care Senior Bi Architect Name Role Phone Unavailable Primary Care Provider Unavailabl e Encounter Details DateTypeDepartmentCare Team (Latest Contact Info)Bwxqiegjpfb57/27/2025linisync Result Encounter [facility] External Department Unsolicited Tyrell Adams DO [address] [place] [address] Social History Tobacco UseTypesPacks/DayYears UsedDateSmoking Tobacco: Never AssessedPHQ-2 AnswerDate RecordedPatient Health Questionnaire-2 Wjroj310 Estimated Date of HfeqbcolZwzhkypqBpr18/04/2025Based on UltrasoundSex and Gender InformationValueDate RecordedSex Assigned at AgkdcJjkzly03/27/2025 5:56 PM EDT Legal ZcaXdmuoh42/15/2023 7:00 PM EDTGender NzkrcpxeMugkmy06/27/2025 5:56 PM EDT Sexual OrientationNot on filedocumented as of this encounter Plan of Treatment DateTypeDepartmentCare Team (Latest Contact Info)Aqawfmkbhmx37/16/2025 10:30 AM ESTPostpartum Visit [facility] Kadie OBGYN [address] [place] [address] Deyanira Martinez PA [address] [place] [address] documented as of this encounter Procedures Procedure NamePriorityDate/TimeAssociated DiagnosisCommentsUS OB BPP W NON-ZVEJYF4906/23/2025 10:45 AM EDT documented in this encounter Results * US OB BPP W NON-STRESS (06/23/2025 10:45 AM EDT)Anatomical Region LateralityModalityOtherSpecimen (Source)Anatomical Location / Laterality Collection Method / VolumeCollection TimeReceived Time06/23/2025 10:45 AM EDT Narrative 06/23/2025 10:48 AM EDT [facility] ?[address] ? [place], [facility] ? Ultrasound Report ? Signed ? Patient: CHERYL,CHENTE N ?MR#: [id number] ?? : 1995 ?Acct:[id number] ?? Age/Sex: 29 / F ?ADM Date: 06/23/25 ?? Loc: [facility] ??250-1 ? Attending Dr: Tyrell Adams D.O. ? Ordering Physician: Tyrell Adams D.O. ?? Date of Service: 06/23/25 ?? Procedure(s): US OB BPP w non-stress ?? Accession Number(s): [id number] ? cc: Tyrell Adams D.O.; Physician,Non-Staff M.D. ? [facility] ? [address] ? [place] [address] ? Patient Name: ?? CHENTE GONZALEZ ? MRN: [facility]:[id number] ? date: 1995 ?Sex: F ?? Assigned Patient Location: US ?? Current Patient Location: US ?? Accession/Order Number: [id number] ?? Exam Date: 06/23/2025 ??10:03 ?Report Date: 06/23/2025 ??10:45 ? At the request of: ?? TYRELL ??ANGIE ??DO ? Procedure: ??US OB BPP w non-stress ? BIOPHYSICAL PROFILE: ? CLINICAL INFORMATION: Gestational diabetes mellitus ? COMPARISON: 06/16/2025 ? There is a single live intrauterine gestation in cephalic presentation. ??The ?? reported gestational age is 38 weeks 6 days. ??The heart rate mtkgfyfg163 ?? beats per minute. ? FINDINGS: ? [...] Dictation Location: [facility]-02 ? Electronically authenticated by: [id number] ??Y ?? Date: 06/23/2025 ??10:45 ? Dictated By: ?Rahel Mae M.D. ? Signed By: ?10/27/25 1048 ? DD/ 1045 ? TD/TT: ? Customer Success Intern: Procedure Note Radiology, Radiologist, MD - 06/23/2025 [place] [address] Ultrasound Report Signed Patient: CHENTE GONZALEZ NMR#: [id number] : 1995Acct:[id number] Age/Sex: Date: 06/23/25 Loc: [facility] 250-[address]: Tyrell Adams D.O. Ordering Physician: Tyrell Adams D.O. Date of Service: 06/23/25 Procedure(s): US OB BPP w non-stress Accession Number(s): [id number] cc: Tyrell Adams D.O.; Physician,Non-Staff M.Tony The [address] [address] Patient Name: CHENTE GONZALEZ MRN: [id number] date: 1995 Sex: F Assigned Patient Location: US Current Patient Location: US Accession/Order Number: [id number] Exam Date: 06/23/2025 10:03 Report Date: 06/23/2025 10:45 At the request of: TYRELL ADAMS DO Procedure: US OB BPP w non-stress BIOPHYSICAL PROFILE: CLINICAL INFORMATION: Gestational diabetes mellitus COMPARISON: 06/16/2025 There is a single live intrauterine gestation in cephalic presentation.The reported gestational age is 38 weeks 6 days. The heart oogfqbgmpdhg888 beats per minute. FINDINGS: TONE: 1 or [...] Mae M.D. 06/23/2025 10:45 AM Dictation Location: [place] [address] Electronically authenticated by: [id number] Y Date: 0:45 Dictated By: Rahel Mae M.D. Signed By:06/23/25 1048 DD/ 1045 TD/TT: Customer Success Intern: Authorizing ProviderResult TypeResult StatusCorey Angie DOCLINISYNC IMAGINGFinal Result documented in this encounter Visit Diagnoses Not on filedocumented in this encounter
--- OUTSIDE RECORDS SUMMARY | 2025-06-30 10:10 | XMS_ITS | Clinical Summary ---
Author Organization [employer] s tem Address [facility] [place], [place]-[id number] [address] [place] [address] Care Team Providers Care Facepiece Line Supervisor Name Role Phone Unavailable Primary Care Provider Unavailabl e Social History Tobacco UseTypesPacks/DayYears UsedDateSmoking Tobacco: Never Assessed Estimated Date of BkrwridoIaxcyhmeMuw62/04/2025Based on UltrasoundSex and Gender InformationValueDate RecordedSex Assigned at BirthNot on fileLegal SexFemale 03/26/2025 9:06 AM EDTGender IdentityNot on fileSexual OrientationNot on file Plan of Treatment Health MaintenanceDue DateLast DoneCommentsDepression Fibsjtyyx61/11/2010Tobacco Meoirmcfw51/11/2010dult BMI Vyoeobqhk87/11/2016DTaP,Tdap and Td Vaccines (1 - Tdap)2016Pap Smear2018Influenza Jpvzkms5104/28/2025RSV ( or age 60+ yrs) (No Doses Required)Completed Medical Devices Not on file
--- OUTSIDE RECORDS SUMMARY | 2025-06-30 10:10 | XMS_ITS | Patient Health Record ---
Author Organization [employer] [facility] es Address [address] [place] [address] Care Team Providers Care Watch Crystal Molder Name Role Phone waqarYissel Rodriges Primary Care Provider Allergies Allergen (clinical drug ingredient) Drug/Non Drug Allergy documented on EMR Reaction Allergy Type Onset Date Status PenicillinUnknownDrug AllergyActive Reason For Referral No Information Medications Medication SIG (Take, Route, Frequency, Duration) Notes Start Date End Date Status Ondansetron 4 MG Tablet Disintegrating 1 tablet on the tongue and allow to dissolve Orally Once a day Active Social History Tobacco Use: Social History Observation Description Date Details (start date - stop date) Never Smoker NA - NA Social History GeneralSocial InfoQuestionAnswerNotesTransition of Care:ER/UC/hospital since last office visit?Yes, report on fileSubstance abuse/mental health issues of patient/familyPatient -Rx Drug AbuseMedical CannabisAbility to understand healthcare/treatmentPatient:GoodTobacco Screen:Are you a:never smokerSexual Hx: Had sex in the last 12 months (vaginal, oral, or anal)?NoSocial/Support Concerns:Patient:NoAlcohol Screening:Did you have a drink containing alcohol in the past year?Yes? How often did you have a drink containing alcohol in the past year?Monthly or less (1 point)Riazqn2EztxmrontrigvzIinaywleUbizratjgcvpd Barrier:Language Barrier?:No Plan Of Treatment No Information Insurance Providers Payer Name Payer Address Payer Phone Subscriber Number Group Number Insured Name Patient Relationship to Insured Coverage Start Date Coverage End Date [employer] M[employer] [address] [place] [phone] [id number] JORGE ALBERTO LUNA Self - patient is the insured 2 Medical (General) History Medical History History ICD Code Polycystic Kidney Disease Hospitalization History Reason Date(Month/Year) Hyperemesis 06/2021
--- OUTSIDE RECORDS SUMMARY | 2025-06-30 10:10 | XMS_ITS | Encounter Summary ---
Author Organization [facility] Address [address] [facility] [place] [address] Care Team Providers Care Rivet Sorter Name Role Phone Unavailable Primary Care Provider Unavailabl e Encounter Details DateTypeDepartmentCare Team (Latest Contact Info)Poiotqbytjn78/23/2025Bamboo flowsheet NOMFerny VARGAS [address] [place] [address] Deyanira Martinez PA [address] [facility] [address] [place] [address] Social History Tobacco UseTypesPacks/DayYears UsedDateSmoking Tobacco: Never AssessedPHQ-2 AnswerDate RecordedPatient Health Questionnaire-2 Tbata413 Estimated Date of PrjaotsyWfeigvpoJox11/04/2025Based on UltrasoundSex and Gender InformationValueDate RecordedSex Assigned at KgdxpAbywff82/27/2025 5:56 PM EDT Legal QbzUbzhyb72/15/2023 7:00 PM EDTGender AckzoralTuxdnt65/27/2025 5:56 PM EDT Sexual OrientationNot on filedocumented as of this encounter Plan of Treatment DateTypeDepartmentCare Team (Latest Contact Info)Qlozdcurunv83/16/2025 10:30 AM ESTPostpartum Visit [facility] Kadie VARGAS [address] [place] [address] Deyanira Martinez, PA [address] [facility] [address] [place], [facility]11 documented as of this encounter Visit Diagnoses Not on filedocumented in this encounter
--- OUTSIDE RECORDS SUMMARY | 2025-06-30 10:10 | XMS_ITS | Encounter Summary ---
Author Organization [facility] Address [address] [facility] [place] [address] Care Team Providers Care Global Compensation Manager Name Role Phone Unavailable Primary Care Provider Unavailabl e Encounter Details DateTypeDepartmentCare Team (Latest Contact Info)Ufmlcykazwc07/30/2025Bamboo flowsheet NOMFerny VARGAS [address] [place] [address] Deyanira Martinez PA [address] [facility] [address] [place] [address] Social History Tobacco UseTypesPacks/DayYears UsedDateSmoking Tobacco: Never AssessedPHQ-2 AnswerDate RecordedPatient Health Questionnaire-2 Srdha455 Estimated Date of SyjdphncDddfaniuTbn33/04/2025Based on UltrasoundSex and Gender InformationValueDate RecordedSex Assigned at GzdypAdqnhv16/27/2025 5:56 PM EDT Legal LntBqbkep72/15/2023 7:00 PM EDTGender VkefzvbsOfotqg89/27/2025 5:56 PM EDT Sexual OrientationNot on filedocumented as of this encounter Plan of Treatment DateTypeDepartmentCare Team (Latest Contact Info)Posacqnoawr70/16/2025 10:30 AM ESTPostpartum Visit [facility] Kadie VARGAS [address] [place] [address] Deyanira Martinez, PA [address] [facility] [address] [place], [facility]11 documented as of this encounter Visit Diagnoses Not on filedocumented in this encounter
--- NOTE | 2025-06-30 10:11 | US_ITS ---
[place] [id number] Patient Name: JORGE ALBERTO LUNA MRN: [facility]:[id number] date: 1995 Sex: F Assigned Patient Location: [facility] Current Patient Location: [facility] Accession/Order Number: [id number] Exam Date: 06/30/2025 10:12 Report Date: 06/30/2025 11:30 At the request of: TYRELL THAPA DO Procedure: US OB BPP w non-stress BIOPHYSICAL PROFILE: CLINICAL INFORMATION: Gestational diabetes mellitus COMPARISON: 06/23/2025 There is a single live intrauterine gestation in cephalic presentation. The reported gestational age is 39 weeks 6 days. The heart rate measures 147 beats per minute. FINDINGS: TONE: 1 or more episodes of activity extension and flexion of extremity or opening and closing of the hand [Y] 2/2 GROSS BODY MOVEMENTS: 3 or more discrete body or limb movements [Y] 2/2 BREATHING MOVEMENTS: 1 or more episodes of breathing lasting at least 30 seconds [Y] 2/2 DOYLE: A single deepest vertical pocket of amniotic fluid greater than 2 cm [Y] 2/2 DOYLE: 7.6 cm. The 5th percentile is 7.2 cm Total score: 8/8 US/US OB BPP w non-stress IMPRESSION: NORMAL BIOPHYSICAL PROFILE. BORDERLINE OLIGOHYDRAMNIOS. Impression dictated by: Rahel Mae M.D. 06/30/2025 11:30 AM Dictation Location: [place] [address] Electronically authenticated by: [id number] Y Date: 06/30/2025 11:30
== END 2025-06-30 11:53 | disposition home or self-care (01) ==
LOC: US 10:07 → FBC 10:08
PROVIDERS: Visit Provider Obstetrics & Gynecology
DX: O24.419 Gestational diabetes mellitus in pregnancy, unspecified control (principal); Z3A.39 39 weeks gestation of pregnancy
CPT/HCPCS: 76818; 84112

== ENCOUNTER 2025-07-01 22:08 | Inpatient (IN) | payer OTHER, SELFPAY ==
--- OUTSIDE RECORDS SUMMARY | 2025-06-19 08:40 | XMS_ITS | Encounter Summary ---
Author Organization [facility] Address [address] [place] [address] Care Team Providers Care Hadoop Infrastructure Architect Name Role Phone Unavailable Primary Care Provider Unavailabl e Reason for Visit * ReasonCommentsRoutine Visit Encounter Details DateTypeDepartmentCare Team (Latest Contact Info)Iyscubeaqbi12/23/2025 9:40 AM EDTRoutine [facility] [address] [place] [phone] Deyanira Martinez PA [address] [place] [address] Third trimester ([facility]); 38 weeks gestation of ([facility]) Social History Tobacco UseTypesPacks/DayYears UsedDateSmoking Tobacco: Never AssessedPHQ-2 AnswerDate RecordedPatient Health Questionnaire-2 Knqxn535 Estimated Date of LmquplynDobbmnliJio01/04/2025ased on UltrasoundSex and Gender InformationValueDate RecordedSex Assigned at HodngNaexgy47/27/2025 5:56 PM EDT Legal TirVvoocn41/15/2023 7:00 PM EDTGender YwahgjczXivvpg41/27/2025 5:56 PM EDT Sexual OrientationNot on filedocumented as of this encounter Last Filed Vital Signs Vital SignReadingTime TakenCommentsBlood Hqtpackb930/7006/19/2025 10:26 AM EDT Pulse--Temperature--Respiratory Rate--Oxygen Saturation--Inhaled Oxygen Concentration--Yurwos089 kg (228 lb)06/19/2025 10:26 AM EDTHeight--Body Mass Index37.9404 12:00 PM EDTdocumented in this encounter Progress Notes * SENDY Fan - 06/19/2025 9:40 AM EDT Reason for Appointment: Patient ID: Chente Gonzalez is a 29 y.o. female who presents for Routine Visit Patient presents today for Return OB appointment. MEDICATIONS Current Outpatient Medications Medication Instructions Alcohol Swabs (Alcohol Prep Pad) 70 % pads 1 Pad, Topical, Daily, Use four times daily to check FSBS. Blood Glucose Monitoring Suppl ([employer] Glucometer) w/Device kit 1 kit, Does not [...] Negative. Endocrine: Negative. Allergic/Immunologic: Negative. OBJECTIVE Objective: OBGyn Exam Vitals: Estimated body mass index is 37.61 kg/m?? as calculated from the following: Height as of 12/01/20: 5' 5 . Weight as of 06/12/25: 226 lb. BP: Patient's last menstrual period was 10/04/2024 (approximate). ASSESSMENT & PLAN ICD-10-CM 1. Third trimester ([facility]) Z34.93 2. 38 weeks gestation of ([facility]) Z3A.38 POCT urinalysis dipstick manually resulted Return OB: Patient presents today for a routine obstetrics appointment. Patient is currently 38w2d . Patient states she is doing well [...] week for routine OB appointment. Documented by Anne-Marie Denton CST on behalf of: SENDY Fan documented in this encounter Plan of Treatment DateTypeDepartmentCare Team (Latest Contact Info)Tdknnetxacb92/16/2025 10:30 AM ESTPostpartum Visit [facility] [address] [place] [phone] Deyanira Martinez PA [address] [place] [address] documented as of this encounter Procedures Procedure NamePriorityDate/TimeAssociated DiagnosisCommentsPOCT URINALYSIS EEKGGLFLRwdxvgg36/23/2025 10:26 AM EDT 38 weeks gestation of ([facility]) documented in this encounter Results * (ABNORMAL) POCT urinalysis dipstick manually resulted (06/19/2025 10:26 AM EDT)ComponentValueRef RangeTest MethodAnalysis TimePerformed AtPathologist SignatureColor, UAYellowClarity, UAClearGlucose, UANegativeNegative - 2000(110) ++++ mg/dLBilirubin, UANegativeNegative - 4(70) +++ mg/dLKetones, UA NegativeNegative - 160(16) ++++ mg/dLSpec Grav, UA1.0201 - 1.03Blood, UA PositiveNegative - 50 Derick/mcLpH, UA6.05 - 9Protein, UA1+Negative - 2000(20) ++++ mg/dLUrobilinogen, UA>=8.00.2 - 12 mg/dLLeukocytes, UATraceNegative - 500+++ Julio/mcLNitrite, UANegativeNegative - PositiveSpecimen (Source) Anatomical Location / LateralityCollection Method / VolumeCollection Time Received HrnoNgimy55/23/2025 10:26 AM EDT Narrative Authorizing ProviderResult TypeResult StatusSentara [facility] TEST ENTER/EDIT ORDERABLESFinal Result documented in this encounter Visit Diagnoses Diagnosis Third trimester ([facility]) state, incidental 38 weeks gestation of ([facility]) documented in this encounter
--- OUTSIDE RECORDS SUMMARY | 2025-06-26 08:20 | XMS_ITS | Encounter Summary ---
Author Organization [facility] Address [address] [place] [address] Care Team Providers Care Entertainment Musician Name Role Phone Unavailable Primary Care Provider Unavailabl e Reason for Visit * ReasonCommentsRoutine Visit Encounter Details DateTypeDepartmentCare Team (Latest Contact Info)Gjhlizvwqpv58/30/2025 9:20 AM EDTRoutine [facility] [address] [place] [phone] Deyanira Martinez PA [address] [place] [address] 39 weeks gestation of ([facility]); Third trimester ([facility]) Social History Tobacco UseTypesPacks/DayYears UsedDateSmoking Tobacco: Never AssessedPHQ-2 AnswerDate RecordedPatient Health Questionnaire-2 Ghaqz993 Estimated Date of UroiitlpEhwvleaeJcb64/04/2025ased on UltrasoundSex and Gender InformationValueDate RecordedSex Assigned at HtekqEqzsyk36/27/2025 5:56 PM EDT Legal XfxPaxmib05/15/2023 7:00 PM EDTGender QpprmavwTwtcnw68/27/2025 5:56 PM EDT Sexual OrientationNot on filedocumented as of this encounter Last Filed Vital Signs Vital SignReadingTime TakenCommentsBlood Ragikkvf704/801 9:45 AM EDT Pulse--Temperature--Respiratory Rate--Oxygen Saturation--Inhaled Oxygen Concentration--Ktdznz357 kg (233 lb 12.8 oz)06/26/2025 9:45 AM [...] nursing note reviewed. Exam conducted with a die storage worker present. Vitals: Estimated body mass index is 38.91 kg/m?? as calculated from the following: Height as of 21: 5' 5 . Weight as of this encounter: 233 lb 12.8 oz. BP: 130/80 Patient's last menstrual period was 10/04/2024 (approximate). Assessment/Plan ICD-10-CM 1. 39 weeks gestation of ([facility]) Z3A.39 POCT urinalysis dipstick manually resulted 2. Third trimester ([facility]) Z34.93 POCT urinalysis dipstick manually [...] Plan of Treatment DateTypeDepartmentCare Team (Latest Contact Info)Ntkluvimxjm24/16/2025 10:30 AM ESTPostpartum Visit [facility] [address] [place] [phone] Deyanira Martinez PA [address] [place] [address] documented as of this encounter Procedures Procedure NamePriorityDate/TimeAssociated DiagnosisCommentsPOCT URINALYSIS ZXOHEBMVOuuatpc16/30/2025 9:55 AM EDT 39 weeks gestation of ([facility]) Third trimester ([facility]) documented in this encounter Results * [...] / LateralityCollection Method / VolumeCollection Time Received TyjlNbrae13/30/2025 9:55 AM EDT Narrative Authorizing ProviderResult TypeResult Status[facility] TEST ENTER/EDIT ORDERABLESFinal Result documented in this encounter Visit Diagnoses Diagnosis 39 weeks gestation of ([facility]) Third trimester ([facility]) state, incidental documented in this encounter
--- OUTSIDE RECORDS SUMMARY | 2025-07-01 22:13 | XMS_ITS | Encounter Summary ---
Author Organization [facility] Address [address] [facility] [place] [address] Care Team Providers Care Glass Beveller Name Role Phone Unavailable Primary Care Provider Unavailabl e Encounter Details DateTypeDepartmentCare Team (Latest Contact Info)Quetxmrrpyn77/30/2025Bamboo flowsheet NOMFerny VARGAS [address] [place] [address] Deyanira Martinez PA [address] [facility] [address] [place] [address] Social History Tobacco UseTypesPacks/DayYears UsedDateSmoking Tobacco: Never AssessedPHQ-2 AnswerDate RecordedPatient Health Questionnaire-2 Gjvar571 Estimated Date of BndvhhyfEhqgczaoDuc65/04/2025Based on UltrasoundSex and Gender InformationValueDate RecordedSex Assigned at KooqqFzkasd48/27/2025 5:56 PM EDT Legal WyiTzzafa93/15/2023 7:00 PM EDTGender RpzawztjFldwjr53/27/2025 5:56 PM EDT Sexual OrientationNot on filedocumented as of this encounter Plan of Treatment DateTypeDepartmentCare Team (Latest Contact Info)Gzidkucoiia99/16/2025 10:30 AM ESTPostpartum Visit [facility] Kadie VARGAS [address] [place] [address] Deyanira Martinez PA [address] [facility] [address] [place], [facility]11 documented as of this encounter Visit Diagnoses Not on filedocumented in this encounter
--- OUTSIDE RECORDS SUMMARY | 2025-07-01 22:13 | XMS_ITS | Clinical Summary ---
Author Organization [employer] s tem Address [facility] [id number] [place] [address] Care Team Providers Care Carpenter Bridge Name Role Phone Unavailable Primary Care Provider Unavailabl e Social History Tobacco UseTypesPacks/DayYears UsedDateSmoking Tobacco: Never Assessed Estimated Date of PggjvbbjLhrjildfXsa43/04/2025Based on UltrasoundSex and Gender InformationValueDate RecordedSex Assigned at BirthNot on fileLegal SexFemale 03/26/2025 9:06 AM EDTGender IdentityNot on fileSexual OrientationNot on file Plan of Treatment Health MaintenanceDue DateLast DoneCommentsDepression Fprejrgcr16/11/2010Tobacco Tmkhimbdv35/11/2010dult BMI Fzyxrlbjv84/11/2016DTaP,Tdap and Td Vaccines (1 - Tdap)2016Pap Smear2018Influenza Piriuqz8504/28/2025RSV ( or age 60+ yrs) (No Doses Required)Completed Medical Devices Not on file
--- OUTSIDE RECORDS SUMMARY | 2025-07-01 22:13 | XMS_ITS | Encounter Summary ---
Author Organization [facility] Address [address] [place] [address] Care Team Providers Care Denture Technician Name Role Phone Unavailable Primary Care Provider Unavailabl e Encounter Details DateTypeDepartmentCare Team (Latest Contact Info)Oygngvhyzgr21/03/2025Clinisync Result Encounter [facility] External Department Unsolicited Tyrell Adams DO [address] [facility] [place] [address] Social History Tobacco UseTypesPacks/DayYears UsedDateSmoking Tobacco: Never AssessedPHQ-2 AnswerDate RecordedPatient Health Questionnaire-2 Ljsah452 Estimated Date of MizpgmxlHjtwenqgEee34/04/2025Based on UltrasoundSex and Gender InformationValueDate RecordedSex Assigned at TmeaqPfjxtv08/27/2025 5:56 PM EDT Legal AqgVdnlit14/15/2023 7:00 PM EDTGender GcupiqkbCxgmao43/27/2025 5:56 PM EDT Sexual OrientationNot on filedocumented as of this encounter Plan of Treatment DateTypeDepartmentCare Team (Latest Contact Info)Ejwwuswryeq09/16/2025 10:30 AM ESTPostpartum Visit [facility] Kadie OBGYN [address] [facility] [address] [place] [address] Deyanira Martinez PA [address] [place] [address] documented as of this encounter Procedures Procedure NamePriorityDate/TimeAssociated DiagnosisCommentsUS OB BPP W NON-OLVMMS6006/30/2025 11:30 AM EST documented in this encounter Results * US OB BPP W NON-STRESS (06/30/2025 11:30 AM EST)Anatomical Region LateralityModalityOtherSpecimen (Source)Anatomical Location / Laterality Collection Method / VolumeCollection TimeReceived Time06/30/2025 11:30 AM EST Narrative 06/30/2025 11:33 AM EST [facility] ?[address] ? [place] [address] ? Ultrasound Report ? Signed ? Patient: CHERYL,CHENTE N ?MR#: [id number] ?? : 1995 ?Acct:[id number] ?? Age/Sex: 29 / F ?ADM Date: 06/30/25 ?? Loc: [facility] ??250-1 ? Attending Dr: Tyrell Adams D.O. ? Ordering Physician: Tyrell Adams D.O. ?? Date of Service: 06/30/25 ?? Procedure(s): US OB BPP w non-stress ?? Accession Number(s): [id number] ? cc: Tyrell Adams D.O.; Physician,Non-Staff M.D. ? [facility] ? [address] ? [place] [address] ? Patient Name: ?? CHENTE GONZALEZ ? MRN: [facility]:[id number] ? date: 1995 ?Sex: F ?? Assigned Patient Location: [facility] ?? Current Patient Location: [facility] ?? Accession/Order Number: [id number] ?? Exam Date: 06/30/2025 ??10:12 ?Report Date: 06/30/2025 ??11:30 ? At the request of: ?? TYRELL ??ANGIE ??DO ? Procedure: ??US OB BPP w non-stress ? BIOPHYSICAL PROFILE: ? CLINICAL INFORMATION: Gestational diabetes mellitus ? COMPARISON: 06/23/2025 ? There is a single live intrauterine gestation in cephalic presentation. ??The ?? reported gestational age is 39 weeks 6 days. ??The heart rate measures ?? 147 beats per minute. ? FINDINGS: ? TONE: [...] 2 cm ? [Y] ? 2/2 ?DOYLE: 7.6 cm. ??The 5th percentile is 7.2 cm ? Total score: ? 8/8 ? US/US OB BPP w non-stress ?? IMPRESSION: ? NORMAL BIOPHYSICAL PROFILE. ? BORDERLINE OLIGOHYDRAMNIOS. ? Impression dictated by: Rahel Mae M.D. ??06/30/2025 11:30 AM ? Dictation Location: RADIO-PC-02 ? Electronically authenticated by: [id number] ??Y ?? Date: 06/30/2025 ??11:30 ? Dictated By: ?Rahel Mae M.D. ? Signed By: ?11/03/25 1133 ? DD/ 1130 ? TD/TT: ? Events Intern: Procedure Note Radiology, Radiologist, MD - 06/30/2025 [place] [address] Ultrasound Report Signed Patient: CHENTE GONZALEZ NMR#: [id number] : 1995Acct:[id number] Age/Sex: 29 FADM Date: 06/30/25 Loc: [facility] 250-[address]: Tyrell Adams D.O. Ordering Physician: Tyrell Adams D.O. Date of Service: 06/30/25 Procedure(s): OB BPP w non-stress Accession Number(s): [id number] cc: Tyrell Adams D.O.; Physician,Non-Staff M.DPeggy The [place] [address] Patient Name: CHENTE GONZALEZ MRN: [id number] date: 1995 Sex: F Assigned Patient Location: [facility] Current Patient Location: [facility] Accession/Order Number: [id number] Exam Date: 06/30/2025 10:12 Report Date: 06/30/2025 11:30 At the request of: TYRELL ADAMS DO Procedure: US OB BPP w non-stress BIOPHYSICAL PROFILE: CLINICAL INFORMATION: Gestational diabetes mellitus COMPARISON: 06/23/2025 There is a single live intrauterine gestation in cephalic presentation.The reported gestational age is 39 weeks 6 days. The heart ratemeasures 147 beats per minute. FINDINGS: TONE: 1 or [...] greater than 2 cm [Y] 2/2 DOYLE: 7.6 cm. The 5th percentile is 7.2 cm Total score: 8/8 US/US OB BPP w non-stress IMPRESSION: NORMAL BIOPHYSICAL PROFILE. BORDERLINE OLIGOHYDRAMNIOS. Impression dictated by: Rahel Mae M.D. 06/30/2025 11:30 AM Dictation Location: [place] [address] Electronically authenticated by: [id number] Y Date: :30 Dictated By: Rahel Mae M.D. Signed By:06/30/25 1133 DD/ 1130 TD/TT: Events Intern: Authorizing ProviderResult TypeResult StatusCorey Angie DOCLINISYNC IMAGINGFinal Result documented in this encounter Visit Diagnoses Not on filedocumented in this encounter
--- OUTSIDE RECORDS SUMMARY | 2025-07-01 22:13 | XMS_ITS | Encounter Summary ---
Author Organization [facility] Address [address] [place] [address] Care Team Providers Care Obstetrician And Gynaecologist Name Role Phone Unavailable Primary Care Provider Unavailabl e Encounter Details DateTypeDepartmentCare Team (Latest Contact Info)Yzrjyunjtrs65/28/2025Patient Outreach [facility] [address] [place] [address] Deyanira Phillips LPN [address] [place] [address] Social History Tobacco UseTypesPacks/DayYears UsedDateSmoking Tobacco: Never AssessedPHQ-2 AnswerDate RecordedPatient Health Questionnaire-2 Wgxkg368 Estimated Date of OxkmkpryEobmpobqVrx37/04/2025Based on UltrasoundSex and Gender InformationValueDate RecordedSex Assigned at WggtfLtcstc15/27/2025 5:56 PM EDT Legal LmyOxmjli18/15/2023 7:00 PM EDTGender FsligdlpCfqkmy59/27/2025 5:56 PM EDT Sexual OrientationNot on filedocumented as of this encounter Progress Notes * Deyanira Phillips LPN - 06/24/2025 10:08 AM EDT Monthly Outreach. Call to pt X2, LVM. documented in this encounter Plan of Treatment DateTypeDepartmentCare Team (Latest Contact Info)Bjipjgryduk94/16/2025 10:30 AM ESTPostpartum Visit [facility] Kadie VARGAS [address] [place] [address] eDyanira Martinez PA [address] [facility] [address] [place] [address] documented as of this encounter Visit Diagnoses Not on filedocumented in this encounter
--- OUTSIDE RECORDS SUMMARY | 2025-07-01 22:13 | XMS_ITS | Encounter Summary ---
Author Organization [facility] Address [address] [facility] [place] [address] Care Team Providers Care Executive Producer Name Role Phone Unavailable Primary Care Provider Unavailabl e Encounter Details DateTypeDepartmentCare Team (Latest Contact Info)Wfjcuwifmbx24/23/2025Bamboo flowsheet NOMFerny VARGAS [address] [place] [address] Deyanira Martinez PA [address] [facility] [address] [place] [address] Social History Tobacco UseTypesPacks/DayYears UsedDateSmoking Tobacco: Never AssessedPHQ-2 AnswerDate RecordedPatient Health Questionnaire-2 Enpbn326 Estimated Date of FzaxdikmWsglobpcKnt49/04/2025Based on UltrasoundSex and Gender InformationValueDate RecordedSex Assigned at JiykqDqarto48/27/2025 5:56 PM EDT Legal PaaVtcteg31/15/2023 7:00 PM EDTGender WdgjtzloEmefls11/27/2025 5:56 PM EDT Sexual OrientationNot on filedocumented as of this encounter Plan of Treatment DateTypeDepartmentCare Team (Latest Contact Info)Czxplpwxngz78/16/2025 10:30 AM ESTPostpartum Visit [facility] Kadie VARGAS [address] [place] [address] Deyanira Martinez, PA [address] [facility] [address] [place], [facility]11 documented as of this encounter Visit Diagnoses Not on filedocumented in this encounter
--- OUTSIDE RECORDS SUMMARY | 2025-07-01 22:13 | XMS_ITS | Encounter Summary ---
Author Organization [facility] Address [address] [place] [address] Care Team Providers Care Windows Security Engineer Name Role Phone Unavailable Primary Care Provider Unavailabl e Encounter Details DateTypeDepartmentCare Team (Latest Contact Info)Jcxfcbvauql19/27/2025linisync Result Encounter [facility] External Department Unsolicited Tyrell Adams DO [address] [facility] [place] [address] Social History Tobacco UseTypesPacks/DayYears UsedDateSmoking Tobacco: Never AssessedPHQ-2 AnswerDate RecordedPatient Health Questionnaire-2 Ibeoc574 Estimated Date of SujaaiepSetghhwdAge98/04/2025Based on UltrasoundSex and Gender InformationValueDate RecordedSex Assigned at JvalfLfqsqa15/27/2025 5:56 PM EDT Legal MstYcpdny88/15/2023 7:00 PM EDTGender MbczhplnYbkzdk93/27/2025 5:56 PM EDT Sexual OrientationNot on filedocumented as of this encounter Plan of Treatment DateTypeDepartmentCare Team (Latest Contact Info)Rrstczbmjxt62/16/2025 10:30 AM ESTPostpartum Visit [facility] Kadie [facility]BGYN [address] [facility] [place] [address] Deyanira Martinez PA [address] [place] [address] documented as of this encounter Procedures Procedure NamePriorityDate/TimeAssociated DiagnosisCommentsUS OB BPP W NON-QJCMYD8606/23/2025 10:45 AM EDT documented in this encounter Results * US OB BPP W NON-STRESS (06/23/2025 10:45 AM EDT)Anatomical Region LateralityModalityOtherSpecimen (Source)Anatomical Location / Laterality Collection Method / VolumeCollection TimeReceived Time06/23/2025 10:45 AM EDT Narrative 06/23/2025 10:48 AM EDT [facility] ?[address] ? [place], [facility] ? Ultrasound Report ? Signed ? Patient: CHERYL,CHENTE N ?MR#: [id number] ?? : 1995 ?Acct:[id number] ?? Age/Sex: 29 / F ?ADM Date: 06/23/25 ?? Loc: [facility] ??250-1 ? Attending Dr: Tyrell Adams D.O. ? Ordering Physician: Tyrell Adams D.O. ?? Date of Service: 06/23/25 ?? Procedure(s): US OB BPP w non-stress ?? Accession Number(s): [id number] ? cc: Tyrell Adams D.O.; Physician,Non-Staff M.D. ? [facility] ? [address] ? [place] [address] ? Patient Name: ?? CHENTE GONZALEZ ? MRN: [facility]:[id number] ? date: 1995 ?Sex: F ?? Assigned Patient Location: US ?? Current Patient Location: US ?? Accession/Order Number: [id number] ?? Exam Date: 06/23/2025 ??10:03 ?Report Date: 06/23/2025 ??10:45 ? At the request of: ?? TYRELL ??ANGIE ??DO ? Procedure: ??US OB BPP w non-stress ? BIOPHYSICAL PROFILE: ? CLINICAL INFORMATION: Gestational diabetes mellitus ? COMPARISON: 06/16/2025 ? There is a single live intrauterine gestation in cephalic presentation. ??The ?? reported gestational age is 38 weeks 6 days. ??The heart rate xftpawtf669 ?? beats per minute. ? FINDINGS: ? [...] Dictation Location: RADIO-PC-02 ? Electronically authenticated by: [id number] ??Y ?? Date: 06/23/2025 ??10:45 ? Dictated By: ?Rahel Mae M.D. ? Signed By: ?10/27/25 1048 ? DD/ 1045 ? TD/TT: ? Supervisor Electronics Testing: Procedure Note Radiology, Radiologist, MD - 06/23/2025 [place] [address] Ultrasound Report Signed Patient: CHENTE GONZALEZ NMR#: [id number] : 1995Acct:[id number] Age/Sex: Date: 06/23/25 Loc: [facility] 250-[address]: Tyrell Adams D.O. Ordering Physician: Tyrell Adams D.O. Date of Service: 06/23/25 Procedure(s): US OB BPP w non-stress Accession Number(s): [id number] cc: Tyrell Adams D.O.; Physician,Non-Staff M.Tony The [address] [address] Patient Name: CHENTE GONZALEZ MRN: [facility]:[id number] date: 1995 Sex: F Assigned Patient Location: US Current Patient Location: [place] Accession/Order Number: [id number] Exam Date: 06/23/2025 10:03 Report Date: 06/23/2025 10:45 At the request of: TYRELL ADAMS DO Procedure: US OB BPP w non-stress BIOPHYSICAL PROFILE: CLINICAL INFORMATION: Gestational diabetes mellitus COMPARISON: 06/16/2025 There is a single live intrauterine gestation in cephalic presentation.The reported gestational age is 38 weeks 6 days. The heart ltoefkmczrxc515 beats per minute. FINDINGS: TONE: 1 or [...] Mae M.D. 06/23/2025 10:45 AM Dictation Location: [place] [address] Electronically authenticated by: [id number] Y Date: 0:45 Dictated By: Rahel Mae M.D. Signed By:06/23/25 1048 DD/ 1045 TD/TT: Supervisor Electronics Testing: Authorizing ProviderResult TypeResult StatusCorey Angie DOCLINISYNC IMAGINGFinal Result documented in this encounter Visit Diagnoses Not on filedocumented in this encounter
--- OUTSIDE RECORDS SUMMARY | 2025-07-01 22:13 | XMS_ITS | Encounter Summary ---
Author Organization [facility] Address [address] [place] [address] Care Team Providers Care Acid Bath Mixer Name Role Phone Unavailable Primary Care Provider Unavailabl e Encounter Details DateTypeDepartmentCare Team (Latest Contact Info)Gzenhwsxuct23/03/2025linisync Result Encounter [facility] External Department Unsolicited Jaspreet Adams DO [address] [place] [address] Social History Tobacco UseTypesPacks/DayYears UsedDateSmoking Tobacco: Never AssessedPHQ-2 AnswerDate RecordedPatient Health Questionnaire-2 Bbrct503 Estimated Date of XmjxeihkPrdydbagLim25/04/2025Based on UltrasoundSex and Gender InformationValueDate RecordedSex Assigned at FnlauLlhtxa33/27/2025 5:56 PM EDT Legal MwoQrbcee77/15/2023 7:00 PM EDTGender ZuhkbagcAwrevq35/27/2025 5:56 PM EDT Sexual OrientationNot on filedocumented as of this encounter Plan of Treatment DateTypeDepartmentCare Team (Latest Contact Info)Vdzqdkckxkg25/16/2025 10:30 AM ESTPostpartum Visit [facility] Kadie VARGAS [address] [facility] [place] [address] Deyanira Martinez PA [address] [place] [address] documented as of this encounter Procedures Procedure NamePriorityDate/TimeAssociated DiagnosisCommentsAMNISURERoutine 06/30/2025 10:40 AM EST documented in this encounter Results * AMNISURE (06/30/2025 10:40 AM EST)ComponentValueRef RangeTest MethodAnalysis TimePerformed AtPathologist SignatureTBH AMNISURENEGATIVENEGATIVETBHSpecimen (Source)Anatomical Location / LateralityCollection Method / VolumeCollection TimeReceived Time06/30/2025 10:40 AM EST06/30/2025 10:56 AM EST Narrative [facility] - 06/30/2025 11:12 AM EST Authorizing ProviderResult TypeResult StatusCorey Angie DOLAB BLOOD ORDERABLES Final ResultPerforming OrganizationAddressCity/State/ZIP CodePhone Number [facility] documented in this encounter Visit Diagnoses Not on filedocumented in this encounter
--- OUTSIDE RECORDS SUMMARY | 2025-07-01 22:13 | XMS_ITS | CCD ---
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 Jaspreet Adams D.O. Ordering Physician: Jaspreet Adams D.O. Date of Service: 06/02/25 Procedure(s): US OB BPP w non-stress Accession Number(s): [id number] cc: Jaspreet Adams D.O.; Physician,Non-Staff Ale[place]andra [place] [address] Patient Name: CHENTE GONZALEZ MRN: [facility]:[id number] date: 1995 Sex: F Assigned Patient Location: [facility] Current Patient Location: [facility] Accession/Order Number: [id number] Exam Date: 06/02/2025 10:22 Report Date: 06/02/2025 10:52 At the request of: JASPREET ADAMS DO Procedure: US OB BPP w non-stress Biophysical profile. Reason for exam: Gestational diabetes COMPARISON: 05/26/2025 TECHNIQUE: Transabdominal imaging of the gravid uterus was obtained. FINDINGS: The cable tv installer reports a BPP of 8 out of 8. DOYLE is normal at 8.9 cm. heart rate 124 bpm. US/US OB BPP w non-stress IMPRESSION: BPP 8 out of 8. Impression dictated by: Ramana Raza Jr., D.O. 06/02/2025 10:52 AM Dictation Location: [place] [address] Electronically authenticated by: [id number] Y Date: 06/02/2025 10:52 Dictated By: Ramana Raza M.D. Signed By: 06/02/25 1054 DD/ 1052 TD/TT: Marine Service Manager: MATTIE HealthcareRadiology Study observation (narrative)[facility]OMS HealthcareUS OB BPP W NON-STRESSOrdered By: Radiologist Radiology on 11-12-8398EFUW [employer] Work Phone: Urinalysis macro (dipstick) panel (U)on 06-02-2025 Bilirubin, UANegativeNegative - 4(70) +++ mg/dLNOMS HealthcareBlood, UAPositive Negative - 50 Derick/mcLNOMS HealthcareClarity, UAClearNOMS HealthcareColor, UA YellowNOTN HealthcareGlucose, UANegativeNegative - 2000(110) ++++ mg/dLNOMS HealthcareInterpretation and review of laboratory resultsAbnormalNOTN Healthcare Ketones, UANegativeNegative - 160(16) ++++ mg/dLNOTN HealthcareLeukocytes, UA3+ Negative - 500+++ Julio/mcLNOTN HealthcareNitrite, UANegativeNegative - Positive NOMS HealthcarepH, UA6.55 - 9NOMS HealthcareProtein, UATraceNegative - 2000(20) ++++ mg/dLNOMS HealthcareSpec Grav, UA1.011 - 1.03NOMS HealthcareUrobilinogen, UA2.00.2 - 12 mg/dLNOTN HealthcareNOMS HealthcareUS OB BPP W NON-STRESSon 87-02-6688Vlf[place], [place] [address] Ultrasound Report Signed Patient: CHENTE GONZALEZ MR#: [id number] : 1995 Acct:[id number] Age/Sex: 29 / F ADM Date: 05/26/25 Loc: US Attending Dr: Jaspreet Adams D.O. Ordering Physician: Jaspreet Adams D.O. Date of Service: 05/26/25 Procedure(s): US OB BPP w non-stress Accession Number(s): [id number] cc: Jaspreet Adams D.O.; Physician,Non-Staff M.Tony The [address] [id number] Patient Name: CHENTE GONZALEZ MRN: [id number] date: 1995 Sex: F Assigned Patient Location: [facility] Current Patient Location: Accession/Order Number: [id number] Exam Date: 05/26/2025 10:05 Report Date: 05/26/2025 [...] Mae M.D. 05/26/2025 11:39 AM Dictation Location: [place] [address] Electronically authenticated by: [id number] Y Date: 05/26/2025 11:39 Dictated By: Rahel Mae M.D. Signed By: 05/26/25 1142 DD/ 1139 TD/TT: Marine Service Manager:TBHRadiology, Radiologist, - 05/26/2025 [place] [address] Ultrasound Report Signed Patient: CHENTE GONZALEZ MR#: [id number] : 1995 Acct:[id number] Age/Sex: 29 / F ADM Date: 05/26/25 Loc: US Attending Dr: Jaspreet Adams D.O. Ordering Physician: Jaspreet Adams D.O. Date of Service: 05/26/25 Procedure(s): US OB BPP w non-stress Accession Number(s): [id number] cc: Jaspreet Adams D.O.; Physician,Non-Staff Alejandra The [address] [address] Patient Name: CHENTE GONZALEZ MRN: [id number] date: 1995 Sex: F Assigned Patient Location: [facility] Current Patient Location: Accession/Order Number: [id number] Exam Date: 05/26/2025 10:05 Report Date: 05/26/2025 [...] Mae M.D. 05/26/2025 11:39 AM Dictation Location: [place] [address] Electronically authenticated by: [id number] Y Date: 05/26/2025 11:39 Dictated By: Rahel Mae M.D. Signed By: 05/26/25 1142 DD/ 1139 TD/TT: Marine Service Manager: MATTIE HealthcareRadiology Study observation (narrative)NOMS HealthcareUS OB BPP W NON-STRESSOrdered By: Radiologist Radiology on 67-84-1823SS[facility] Healthcare Work Phone: US AMNIOTIC FLUID VOLUMEon 21-80-7073NiiHewitt, [place] [address] Ultrasound Report Signed Patient: CHENTE GONZALEZ MR#: [id number] : 1995 Acct:[id number] Age/Sex: 29 / F ADM Date: 05/20/25 Loc: [facility] 250-[address]: Jaspreet Adams D.O. Ordering Physician: Jaspreet Adams D.O. Date of Service: 05/20/25 Procedure(s): US OB amniotic fluid vol Accession Number(s): [id number] cc: Jaspreet Adams D.O.; Physician,Non-Staff Alejandra The [place] [id number] Patient Name: CHENTE GONZALEZ MRN: [id number] date: 1995 Sex: F Assigned Patient Location: [facility] Current Patient Location: [place] Accession/Order Number: [id number] Exam Date: 05/20/2025 11:10 Report Date: 05/20/2025 [...] Mae M.D. 05/20/2025 11:33 AM Dictation Location: [place] [address] Electronically authenticated by: [id number] Y Date: 05/20/2025 11:33 Dictated By: Rahel Mae M.D. Signed By: 05/20/25 1136 DD/ 1133 TD/TT: Marine Service Manager:BILLYadiology, Radiologist, MD - 05/20/2025 [place] [address] Ultrasound Report Signed Patient: CHENTE GONZALEZ MR#: [id number] : 1995 Acct:[id number] Age/Sex: 29 / F ADM Date: 05/20/25 Loc: [facility] 250-[address]: Jaspreet Adams D.O. Ordering Physician: Jaspreet Adams D.O. Date of Service: 05/20/25 Procedure(s): US OB amniotic fluid vol Accession Number(s): [id number] cc: Jaspreet Adams D.O.; Physician,Non-Staff Alejandra [place] [id number] Patient Name: CHENTE GONZALEZ MRN: [id number] date: 1995 Sex: F Assigned Patient Location: [facility] Current Patient Location: [place] Accession/Order Number: [id number] Exam Date: 05/20/2025 11:10 Report Date: 05/20/2025 [...] Mae M.D. 05/20/2025 11:33 AM Dictation Location: [place] [address] Electronically authenticated by: [id number] Y Date: 05/20/2025 11:33 Dictated By: Rahel Mae M.D. Signed By: 05/20/25 1136 DD/ 1133 TD/TT: Marine Service Manager: NOMS HealthcareRadiology Study observation (narrative)NOMS HealthcareUS AMNIOTIC FLUID VOLUMEOrdered By: Radiologist Radiology on 13-81-7137GTTK Healthcare Work Phone: US OB BPP W NON-STRESSon 08-26-[address] [address] Ultrasound Report Signed Patient: CHENTE GONZALEZ MR#: [id number] : 1995 Acct:[id number] Age/Sex: 29 / F ADM Date: 05/19/25 Loc: [facility] 250-[address]: Jaspreet Adams D.O. Ordering Physician: Jaspreet Adams D.O. Date of Service: 05/19/25 Procedure(s): US OB BPP w non-stress Accession Number(s): [id number] cc: Jaspreet Adams D.O.; Physician,Non-Staff MRu [place] [id number] Patient Name: CHENTE GONZALEZ MRN: [id number] date: 1995 Sex: F Assigned Patient Location: [facility] Current Patient Location: [facility] Accession/Order Number: [id number] Exam Date: 05/19/2025 10:15 Report Date: 05/19/2025 [...] Mae M.D. 05/19/2025 10:54 AM Dictation Location: [place] [address] Electronically authenticated by: [id number] Y Date: 05/19/2025 10:54 Dictated By: Rahel Mae M.D. Signed By: 05/19/25 1056 DD/ 1054 TD/TT: Marine Service Manager:BILLYadiolognish, Radiologist, - 05/19/2025 [place] [address] Ultrasound Report Signed Patient: CHENTE GONZALEZ MR#: [id number] : 1995 Acct:[id number] Age/Sex: 29 / F ADM Date: 05/19/25 Loc: [facility] 250-[address]: Jaspreet Adams D.O. Ordering Physician: Jaspreet Adams D.O. Date of Service: 05/19/25 Procedure(s): US OB BPP w non-stress Accession Number(s): [id number] cc: Jaspreet Adams D.O.; Physician,Non-Staff Alejandra The [place] [address] Patient Name: CHENTE GONZALEZ MRN: [facility]:[id number] date: 1995 Sex: F Assigned Patient Location: [facility] Current Patient Location: [facility] Accession/Order Number: [id number] Exam Date: 05/19/2025 10:15 Report Date: 05/19/2025 [...] Mae M.D. 05/19/2025 10:54 AM Dictation Location: [place] [address] Electronically authenticated by: [id number] Y Date: 05/19/2025 10:54 Dictated By: Rahel Mae M.D. Signed By: 05/19/25 1056 DD/ 1054 TD/TT: Marine Service Manager: [facility] HealthcareRadiology Study observation (narrative)[facility] HealthcareUS OB BPP W NON-STRESSOrdered By: Radiologist Radiology on 93-47-0383HRPD Healthcare Work Phone: Urinalysis macro (dipstick) panel (U)on 05-15-2025 Bilirubin, UANegativeNegative - 4(70) +++ mg/dLNOMS HealthcareBlood, UAPositive Negative - 50 Derick/mcLNOMS HealthcareComment on above:1+Clarity, UAClearNOMS HealthcareColor, UAStrawNOTN HealthcareGlucose, UANegativeNegative - 2000(110) ++++ mg/dLNOMS HealthcareInterpretation and review of laboratory resultsAbnormal [facility] HealthcareKetones, UANegativeNegative - 160(16) ++++ mg/dLNOMS Healthcare Leukocytes, UANegativeNegative - 500+++ Julio/mcLNOMS HealthcareNitrite, UA NegativeNegative - PositiveNOMS HealthcarepH, UA65 - 9NOMS HealthcareProtein, UA PositiveNegative - 2000(20) ++++ mg/dLNOMS HealthcareComment on above:2+Spec Grav, UA1.021 - 1.03NOMS HealthcareUrobilinogen, UA1.00.2 - 12 mg/dLNOMS HealthcareNOMS HealthcareUS OB FOLLOW UP TRANSABDOMINAL APPROACHon 24-28-9119EP OB FOLLOW UP TRANSABDOMINAL APPROACHA single, live [...] menstrual period. TRANSCRIBED BY: ELECTRONICALLY SIGNED BY: Ginette Quinteros AvailableComment on above:Order Comment: US OB SCAN FOR GROWTH Estimated Date of Delivery: 07/01/25 Gestational Age as of 04/17/2025: 56i3fEkgcmmkead macro (dipstick) panel (U)on 36-67-0597Vrjbbpbbm, UANegativeNegative - 4(70) +++ mg/dLNOMS HealthcareBlood, UAPositiveNegative [...] mg/dLNOMS HealthcareNOMS HealthcareUrinalysis macro (dipstick) panel (U)on 72-95-5330Pdqwrevqb, UA NegativeNegative - 4(70) +++ mg/dLNOMS HealthcareBlood, [...] mg/dLNOMS HealthcareNOMS HealthcareUrinalysis macro (dipstick) panel (U)on 11-05-5192Avpbuefhd, UANegativeNegative - 4(70) +++ mg/dLNOMS HealthcareBlood, UAPositiveNegative - 50 Derick/mcLNOMS HealthcareClarity, UAClear NOMS HealthcareColor, UAYellowNOMS HealthcareGlucose, UANegativeNegative - 2000(110) ++++ mg/dLNOMS HealthcareInterpretation and review of laboratory resultsAbnormalNOMS HealthcareKetones, UANegativeNegative - 160(16) ++++ mg/dL N[facility] HealthcareLeukocytes, UANegativeNegative - 500+++ Julio/[facility] Healthcare Nitrite, UANegativeNegative - PositiveNOMS HealthcarepH, UA6.55 - 9NOMS HealthcareProtein, UANegativeNegative - 2000(20) ++++ mg/dLNOMS HealthcareSpec Grav, UA1.0151 - 1.03NOMS HealthcareUrobilinogen, UA1.00.2 - 12 mg/dLNOMS HealthcareNOMS HealthcareGLUCOSE TOLERANCE 3 HOURon 11-29-8773QNXHKTX TOLERANCE 3 HOURHighmg/dLNOMS HealthcareComment on above:GLU FAST 86 (<95) Col: 03/21/25 0856 GLU 1HR 181H (<180) Col: 03/21/25 1002 GLU 2HR 162H (<155) Col: 03/21/25 1102 GLU 3HR 75 (<140) Col: 03/21/25 1202 Interpretation and review of laboratory resultsAbnoThedaCare Regional Medical Center–NeenahUS OB LIMITED 1+ FETUSESon 72-58-0727DF OB LIMITED 1+ FETUSES EXAM: US OB [...] II, MD, PHD at 21-Mar-2025 08:31:03 AM [facility] TeleradiologyNormalNot AvailableComment on above:Order Comment: US OB INCOMPLETE ANATOMY Estimated Date of Delivery: 07/01/25 Gestational Age as of 02/24/2025: 47i1sICN,APTIMA HPV,AGE GDLNon 56-32-8584FPG GDLN ACOG TESTINGNote.[facility] HealthcareComment on above:TESTS RESULT FLAG UNITS REF RANGE LAB Clinician Provided Cytology Information Source.............[employer] Other.............. No. of containers..01 ThinPrep Vial Age Kristyo LIANET Mandie... FLAG LEGEND: L-Low Normal,H-High Normal,LL-Alert Low,HH-Alert High <-Panic Low,>-Panic High,A-Abnormal,AA-Critical Abnormal Performed at: 01 =[facility] [place] [address] Mckenna Polanco MD, IGP, RFX APTIMA HPV ASCUNote.NOMS HealthcareComment on above:TESTS RESULT FLAG UNITS REF RANGE LAB DIAGNOSIS: 02 NEGATIVE FOR INTRAEPITHELIAL LESION OR MALIGNANCY. Specimen adequacy: 02 Satisfactory for evaluation. No endocervical component is identified. Performed by: Andres Pineda, Market Research Executive ([facility]) . 02 Note: Note 02 The [...] Low,>-Panic High,A-Abnormal,AA-Critical Abnormal Performed at: [address] [facility] [address] [address] Mckenna Polanco MD, Performed at: =G - [facility] [address] [id number] Brim Ironer Hand: Mckenna Polanco MD, Phone: [phone] Performed at: - [facility] [address] [id number] Brim Ironer Hand: Mckenna Polanco MD, Phone: [phone] SPATULA-ALONE ENDOCERVIX CLINISYNCNOTN HealthcareGLUCOSE 1 HOURon 70-30-7887Eimygzy [Mass/Vol]141 mg/dL HighNINF - 130 mg/dLNOMS HealthcareInterpretation and review of laboratory resultsAbnormalVA HOSPITAL HealthcareCLINISYNCGlucose tolerance, 1 houron 03-06-2025 Glucose Tolerance Test [address] [place] [address] SystemNo Panel Informationon 51-84-1891YGGB HealthcareUrinalysis macro (dipstick) panel (U)on 03-05-2025 Bilirubin, UANegativeNegative - 4(70) +++ mg/dLNOMS HealthcareBlood, UANegative Negative - 50 Derick/mcLNOMS HealthcareClarity, UAClearNOMS HealthcareColor, UA YellowNOMS HealthcareGlucose, UANegativeNegative - 2000(110) ++++ mg/dLNOTN HealthcareInterpretation and review of laboratory resultsNormalNOMercy Hospital Joplin Ketones, UANegativeNegative - 160(16) ++++ mg/dLNOMS HealthcareLeukocytes, UA NegativeNegative - 500+++ Julio/mcLNOMS HealthcareNitrite, UANegativeNegative - PositiveNOMS HealthcarepH, UA65 - 9NOMS HealthcareProtein, UANegativeNegative - 2000(20) ++++ mg/dLNOMS HealthcareSpec Grav, UA1.011 - 1.03[facility] Healthcare Urobilinogen, UA0.20.2 - 12 mg/dLNOMS HealthcareNOMS HealthcareUS OB 14+ WEEKS ANATOMY SCANon 13-95-1509AU OB 14+ WEEKS ANATOMY SCANEXAM: US OB [...] II, MD, PHD at 20-Feb-2025 09:47:05 AM [facility] TeleradiologyNormalNot AvailableComment on above:Order Comment: US OB ANATOMY SINGLE W US OB CERVICAL LENGTH Estimated Date of Delivery: 07/01/25 Gestational Age as of 02/12/2025: 38j0eOEL surface Ag IA Qlon 61-06-0311Feinxpnas B Surface AntigenNegativeProMedica Health SystemProMedica Health SystemBOX TEST on 30-82-2109UCM TEST SENT OUTUNITY BOXNOMS UpbpgvgigfBGA6PKZBMUAMJ Healthcare BOX26/02/19NOMS HealthcareUNITY BOX CLINISYNCDrug Screen, Urineon 26-57-2596Poujdugyrwj/MethamphetamineNegative [facility] Health SystemBarbituratesNegativeProMedica Health System BenzodiazepinesNegativeProMedica Health SystemCocaine MetaboliteNegative [facility] SystemEcstasyNegativeProMedica Health SystemMethadoneNegative [facility] SystemOpiatesNegativeProMedica Health SystemOxycodoneNegative [facility] SystemPhencyclidineNegativeNortheastern Vermont Regional HospitalMedica Health SystemThc Marijuana, UrinePositiveSouthern [facility] Center SystemHIV 1+2 Ab+HIV1 p24 Ag IA Qlon 10-41-8060ZDM 1&2 AB/AGNon-ReactiveSouthern Ohio Medical Center SystemHemoglobin A1con 03-76-0721OsT8b (Bld) [Mass fraction]4.9 %4.0 - 6.0 %[facility] SystemNo Panel Informationon 29-07-3239KFGR HealthcareRubella IGG immune statuson 79-41-2076Bpovqzm immune IgG7.29[facility] SystemType and screenon 00-04-9484Rmg/Rh(D)NegativeSouthern [facility] Medical Center SystemNo Panel Informationon 96-80-1391GDSILDLXLGTEUV EPIDERMIDIS, HAEMOLYTICUS, LUGDUNENSIS, SAPROPHYTICUS (XAYNS0ZKNO HealthcareSTAPHYLOCOCCUS EPIDERMIDIS, HAEMOLYTICUS, LUGDUNENSIS, SAPROPHYTICUS (URINANot detectedNOMS HealthcareURINARY TRACT INFECTION (HTRX)on 12-53-0406TJVQMLXHFDXPW NFGECEYF8NSSI HealthcareACINETOBACTER BAUMANIINot detectedNOMS HealthcareCANDIDA ALBICANS, PARAPSILOSIS, DMGPIAKHVB7BJUW HealthcareCANDIDA ALBICANS, PARAPSILOSIS, TROPICALISNot detectedNOMS Healthcare MAYNOR ACGQKADD4MIXX HealthcareCANDIDA GLABRATANot detectedNOMS Healthcare MAYNOR KORRYZ1KMYL HealthcareCANDIDA KRUSEINot detectedNOMS Healthcare CITROBACTER DNGHWYFM1XVSQ HealthcareCITROBACTER FREUNDIINot detectedNOMS HealthcareENTEROBACTER AEROGENES, BIGSFVY3JZML HealthcareENTEROBACTER AEROGENES, CLOACAENot detectedNOMS HealthcareENTEROCOCCUS FAECALIS, LHPKQZM8JPQG Healthcare ENTEROCOCCUS FAECALIS, FAECIUMNot detectedNOMS HealthcareESCHERICHIA WDKX0LHSB HealthcareESCHERICHIA COLINot detectedNOMS HealthcareKLEBSIELLA PNEUMONIAE, AMUVZLU7STRS HealthcareKLEBSIELLA PNEUMONIAE, OXYTOCANot detectedNOMS Healthcare MORGANELLA XGJSAYNI2NKDQ HealthcareMORGANELLA MORGANIINot detectedNOMS HealthcarePROTEUS MIRABILIS, TIRPEDHB7IGGM HealthcarePROTEUS MIRABILIS, VULGARIS Not detectedNOMS HealthcarePSEUDOMONAS VHJTFFAPZM2JIIJ HealthcarePSEUDOMONAS AERUGINOSANot detectedNOMS HealthcareSERRATIA HGKHNAXVVN6LKGU HealthcareSERRATIA MARCESCENSNot detectedNOMS HealthcareSTAPHYLOCOCCUS BYDARG0VMKK Healthcare STAPHYLOCOCCUS AUREUSNot detectedNOMS HealthcareSTREPTOCOCCUS AGALACTIAE (GROUP B STREP)0NOMS HealthcareSTREPTOCOCCUS AGALACTIAE (GROUP B STREP)Not detectedNOMS HealthcareSTREPTOCOCCUS PYOGENES (GROUP A STREP)0NOMS HealthcareSTREPTOCOCCUS PYOGENES (GROUP A STREP)Not detectedNOMS HealthcareNOMS HealthcareUrinalysis macro (dipstick) panel (U)on 11-58-0668Jcplzfxon, UANegativeNegative - 4(70) +++ mg/dLNOMS HealthcareBlood, UAPositiveNegative [...] mg/dLNOMS HealthcareNOMS HealthcareHCG ( test) Ql (U)on 40-58-7058Zgbjlidwskvqtk and review of laboratory resultsAbnormalNOMS Healthcare Preg Test, UrPositiveNegativeNOMS HealthcareNOMS HealthcareUS OB LIMITED 1+ FETUSESon 29-29-9850RC OB LIMITED 1+ FETUSESEXAM: US OB LIMITED [...] II, MD, PHD at 27-Jan-2025 10:23:04 AM [facility] TeleradiologyNormalNot AvailableComment on above:Order Comment: US OB TRANSVAGINAL No LMP recorded.Urinalysis macro (dipstick) panel (U)on 02-22-5861Mngmpcafi, UA NegativeNegative - 4(70) +++ mg/dLNOMS HealthcareBlood, UAPositiveNegative - 50 Derick/mcLNOMS HealthcareComment on above:Trace-IntactClarity, UAClearNOMS HealthcareColor, UAYellowNOMS HealthcareGlucose, UANegativeNegative - 2000(110) ++++ mg/dLNOMS HealthcareInterpretation and review of laboratory resultsAbnormal NOMS HealthcareKetones, UANegativeNegative - 160(16) ++++ mg/dLNOTN Healthcare Leukocytes, UANegativeNegative - 500+++ Julio/mcLNOTN HealthcareNitrite, UA NegativeNegative - PositiveNOMS HealthcarepH, UA75 - 9NOMS HealthcareProtein, UA NegativeNegative - 2000(20) ++++ mg/dLNOTN HealthcareSpec Grav, UA1.021 - 1.03 NOMS HealthcareUrobilinogen, UA0.20.2 - 12 mg/dLNOMercy Hospital JoplinNOTN Healthcare Urine Cultureon 32-14-9210Temojadk identified Cx Nom (U)No Growth 2 Days PERFORMED BY: [place] [address] PATHOLOGIST BOWL SANDER RAHUL HOLCOMB M.D.NormalDesoto Memorial Hospital Physician GroupComment on above: Performed By: #### CUU #### [address] StreetAmphetamine Screen Ql (U)Ordered By: Denny Azevedo on 74-22-2836Fpbbhjudpzaa Ql (U)NegativeNegKettering Health Washington Township Amylase [Enzymatic activity/volume] in Serum or PlasmaOrdered By: Denny Azevedo on 49-45-7426Avnmgij [Catalytic activity/Vol]32 U/R48-292PtemeccfmMedina HospitalAspartate aminotransferase [Enzymatic activity/volume] in Serum or PlasmaOrdered By: Denny Azevedo on 15-66-7060CEP [Catalytic activity/Vol]24 U/L 13-39Medina HospitalAutomated erythrocytes count in urine sediment (number/area)Ordered By: Denny Azevedo on 99-41-6678LGG Auto (Urine sed) [#/Area]10-19 [HPF]0-4FSouthview Medical CenterAutomated leukocytes count in urine sediment (number/area)Ordered By: Denny Azevedo on 57-82-8709RTE Auto (Urine sed) [#/Area]3-4 [HPF]0-4FSouthview Medical Center Barbiturates [Presence] in Urine by Screen methodOrdered By: Denny Azevedo on 80-67-0034Oojgjqmqeldg Screen Ql (U)NegativeNegKettering Health Washington TownshipBasophils Auto (Bld) [#/Vol]Ordered By: Denny Azevedo on 08-11-2023 Basophils (Bld) [#/Vol]0.1 10*3/uL0.0-0.2FSouthview Medical Center Basophils/100 WBC Auto (Bld)Ordered By: Denny Azevedo on 72-62-3735Xwsfilkvm/100 WBC (Bld)0.9 %.Medina HospitalBenzodiazepines Screen Ql (U) Ordered By: Denny Azevedo on 27-13-4620Iaikifqkgzxuaoh Ql (U)NegativeNegative Medina HospitalBenzoylecgonine [Presence] in Urine by Screen methodOrdered By: Denny Azevedo on 21-26-3801Ivyfkyqzawitkzl Screen Ql (U) NegativeNegativeMedina HospitalBilirubin Test strip Ql (U) Ordered By: Denny Azevedo on 03-14-0123Djwvvrhds Ql (U)NegativeNegativeMedina HospitalCannabinoids [Presence] in Urine by Screen methodOrdered By: Denny Azevedo on 35-17-4103Nflvecmgiyqm Screen Ql (U)PositiveNegative Medina HospitalComment on above:These are unconfirmed results and should not be used for legal purposes. Drug Cut-Off Concentration: AMPH 1000 ng/mL THOMAS 200 ng/mL ARTHUR 200 ng/mL COCM 300 ng/mL OP 300 ng/mL PCP 25 ng/mL THC 20 ng/mLCarbon dioxide, total [Moles/volume] in Serum or PlasmaOrdered By: Denny Azevedo 92-93-3762YS5 [Moles/Vol]17.8 mmol/L21.0-31.0Medina HospitalChloride [Moles/volume] in Serum or PlasmaOrdered By: Denny Azevedo 86-99-4737Uxtaoqcg [Moles/Vol]108 mmol/V60-520GhuskzgijMedina HospitalColor Auto (U)Ordered By: Denny Azevedo on 57-93-0857Jtoge (U) YellowYellowMedina HospitalCreatine kinase [Enzymatic activity/volume] in Serum or PlasmaOrdered By: Denny Azevedo 50-95-9562UM [Catalytic activity/Vol]225 U/S43-588JsifhbmhsMedina HospitalCreatinine [Mass/volume] in Serum or PlasmaOrdered By: Denny Azevedo on 08-11-2023 Creatinine [Mass/Vol]0.68 mg/dL0.60-1.20[facility] Eosinophils Auto (Bld) [#/Vol]Ordered By: Denny Azevedo on 03-14-5239Ffnznukrgwd (Bld) [#/Vol]0.1 10*3/uL0.0-0.45[facility] Eosinophils/100 WBC Auto (Bld)Ordered By: Denny Azevedo on 08-11-2023 Eosinophils/100 WBC (Bld)1.3 %.Medina HospitalErythrocyte distribution width Auto (RBC) [Ratio]Ordered By: Denny Azevedo on 08-11-2023 Erythrocyte distribution width (RBC) [Ratio]12.9 %11.9-15.3FSouthview Medical CenterEthanol [Mass/volume] in Serum or PlasmaOrdered By: Denny Azevedo on 02-37-5084Vgqorpu [Mass/Vol]mg/dLMedina HospitalEthanol [Mass/Vol]TNPMedina HospitalComment on above:Test not performedGlucose [Mass/volume] in Serum or PlasmaOrdered By: Denny Azevedo on 32-66-2960Tqusgtg [Mass/Vol]109 mg/gR89-558RnlumzbolMedina Hospital Comment on above:ADA recommended reference rangeRandom Glucose Reference Range is dependent on time and content of last meal. Glucose of more than 200 mg/dL in a nonstressed, ambulatory subject supports the diagnosisof Diabetes Mellitus. HCG ( test) IA.rapid Ql (U)Ordered By: Denny Azevedo on 21-90-8460DPV ( test) Ql (U)NegativeMedina HospitalHematocrit Auto (Bld) [Volume fraction]Ordered By: Denny Azevedo on 78-70-6192Timanlojpq (Bld) [Volume fraction]40.4 %34.0-46.4FSouthview Medical CenterHemoglobin [Mass/volume] in BloodOrdered By: Denny Azevedo on 85-13-6328Yoaztydzxg (Bld) [Mass/Vol]14.2 g/dL11.8-15.4FSouthview Medical CenterINR in Platelet poor plasma by Coagulation assayOrdered By: Denny Azevedo on 62-84-6099YNP Coag (PPP) [Relative time]1.0 {INR}Medina HospitalComment on above: INR Therapeutic Range A) Pre- [...] By: Denny Azevedo on 08-11-2023 Ketones (U) [Mass/Vol]TraceNegativeMedina HospitalLaboratory - UrinalysisOrdered By: Denny Azevedo on 72-01-5838Mwzhgzu casts LM Ql (Urine sed)0-8 [LPF]0-8[facility] HospitalLeukocytes [#/volume] corrected for nucleated erythrocytes in Blood by Automated counOrdered By: Denny Azevedo on 16-52-7050HLW corrected for nucl RBC Auto (Bld) [#/Vol]7.9 10*3/uL3.8-11.6 [facility] HospitalLipase [Enzymatic activity/volume] in Serum or PlasmaOrdered By: Denny Azevedo on 77-63-7394Dlbkvj [Catalytic activity/Vol]13.0 U/L11.0-82.0Medina HospitalLymphocytes Auto (Bld) [#/Vol] Ordered By: Denny Azevedo on 32-84-7859Nfbrunwusmg (Bld) [#/Vol]1.8 10*3/uL 1.00-4.8[facility]ina HospitalLymphocytes/100 WBC Auto (Bld)Ordered By: Denny Azevedo on 90-32-6081Klbtqloclha/100 WBC (Bld)23.1 %.[facility] Auto (RBC) [Entitic mass]Ordered By: Denny Azevedo on 56-87-4005KJE (RBC) [Entitic mass]30.4 pg24.7-34.3[facility] CenterMCHC Auto (RBC) [Mass/Vol]Ordered By: Denny Azevedo on 64-11-4843YEOH (RBC) [Mass/Vol]35.1 g/dL32.0-35.0[facility] HospitalMCV Auto (RBC) [Entitic vol]Ordered By: Denny Azevedo on 85-54-9908RAG (RBC) [Entitic vol]86.7 cO39-916VpjkoomalMedina HospitalMonocyte distribution width [Entitic volume] in Blood by AutomatedOrdered By: Denny Azevedo on 08-11-2023 Monocyte distribution width Auto (Bld) [Entitic vol]17.99 %0.00-20.00[facility] HospitalMonocytes Auto (Bld) [#/Vol]Ordered By: Denny Azevedo on 77-16-6348Wocnbpqfr (Bld) [#/Vol]0.5 10*3/uL0.0-0.8[facility] HospitalMonocytes/100 WBC Auto (Bld)Ordered By: Denny Azevedo on 08-11-2023 Monocytes/100 WBC (Bld)6.9 %.[facility] HospitalNeutrophils Auto (Bld) [#/Vol]Ordered By: Denny Azevedo on 09-17-9050Zejxtaqvpkj (Bld) [#/Vol]5.4 10*3/uL1.8-7.7FSouthview Medical CenterNeutrophils/100 WBC Auto (Bld) Ordered By: Denny Azevedo on 81-76-0167Aoqtkfznaiu/100 WBC (Bld)67.8 %.[facility] HospitalNitrite Test strip Ql (U)Ordered By: Denny Azevedo on 73-03-0967Nphjliq Ql (U)NegativeNegativeMedina HospitalNo Panel InformationOrdered By: Denny Azevedo on 57-88-9471Vmepdwupx GFR (CKD-EPI)> 60.0 mL/MinMedina HospitalPharmacy Creatinine Clearance (Chem 138.27[facility] HospitalNucleated erythrocytes [Presence] in Blood by Automated countOrdered By: Denny Azevedo on 08-29-9396Noihplzwe RBC Auto Ql (Bld)0.1 /100{WBC}0-0.5FSouthview Medical CenterOpiates [Presence] in Urine by Screen methodOrdered By: Denny Azevedo on 08-11-2023 Opiates Screen Ql (U)NegativeNegKettering Health [facility] Phencyclidine Screen Ql (U)Ordered By: Denny Azevedo on 06-76-4176Zjffittsisnkh Ql (U)NegativeNegativeMedina HospitalPlatelet mean volume Auto (Bld) [Entitic vol]Ordered By: Denny Azevedo on 83-50-4619Ufrsgkhd mean volume (Bld) [Entitic vol]7.7 fL6.3-10.7FSouthview Medical CenterPlatelets Auto (Bld) [#/Vol]Ordered By: Denny Azevedo on 53-56-5165Nvvthnfte (Bld) [#/Vol]307 10*3/hQ247-939GhrhreierMedina HospitalPotassium [Moles/volume] in Serum or PlasmaOrdered By: Denny Azevedo on 92-45-9882Qjpqdsoji [Moles/Vol]3.3 mmol/L 3.5-5.1FSouthview Medical CenterProtein Auto test strip (U) [Mass/Vol] Ordered By: Denny Azevedo on 99-33-0851Njxafnd (U) [Mass/Vol]30 mg/dLNegHolmes County Joel Pomerene Memorial HospitalProthrombin time (PT)Ordered By: Denny Azevedo on 72-06-6868ZP Coag (PPP) [Time]12.1 s9.0-12.9[facility] Comment on above:A hematocrit value greater than 55% may lead to inaccurate results in coagulation testing. Patientshaving hematocrit values >55% require a special collection tube for coagulation studies. Please contact the laboratory at [phone] for redraw instructions.RBC Auto (Bld) [#/Vol]Ordered By: Denny Azevedo on 09-89-8739YEZ (Bld) [#/Vol]4.66 10*6/uL3.60-5.00[facility] Hospitalerum or plasma anion gap determinationOrdered By: Denny Azevedo on 74-15-7196Cgkix gap [Moles/Vol]15.5 mmol/L6.0-15.0[facility] Hospitalodium [Moles/volume] in Serum or PlasmaOrdered By: Denny Azevedo on 10-46-0576Sdrswg [Moles/Vol]138 mmol/H358-407ExofoqhqfMedina Hospital Specific gravity Auto test strip (U) [Rel density]Ordered By: Denny Azevedo on 48-99-7057Vjwdqpcv gravity (U) [Rel density]1.0261.001-1.030[facility] Hospitalquamous epithelial cells detection in urine sediment by light microscopyOrdered By: Denny Azevedo on 43-47-7245Alsvlkpjsm cells.squamous LM Ql (Urine sed)0-1 [HPF]0-2FSouthview Medical CenterUrea nitrogen [Mass/volume] in Serum or PlasmaOrdered By: Denny Azevedo on 93-91-3718Hmik nitrogen [Mass/Vol]11 mg/dL7-25Med[facility] HospitalUrine bacteria detection by automated methodOrdered By: Denny Azevedo on 81-49-7002Tpgnsueh Auto Ql (U)None seenNone SeenMedina HospitalUrine clarity by refractometry automatedOrdered By: Denny Azevedo on 34-58-1167Zmbnmyk Refractometry automated (U)ClearClearFSouthview Medical CenterUrine glucose measurement by automated test strip (mass/volume)Ordered By: Denny Azevedo 63-30-1243Kxjdapj Auto test strip (U) [Mass/Vol]Normal mg/dLBrown Memorial HospitalUrine hemoglobin detection by automated test stripOrdered By: Denny Azevedo 96-73-9063Sudvbndkfw Auto test strip Ql (U)2+ NegativeMedina HospitalUrine leukocyte esterase detection by automated test stripOrdered By: Denny Azevedo 74-24-4557Nfujozigk esterase Auto test strip Ql (U)NegativeNegativeMedina Hospital Urobilinogen Auto test strip (U) [Mass/Vol]Ordered By: Denny Azevedo 79-62-4979Fvivfmwntghz (U) [Mass/Vol]Normal mg/dLKettering Health Washington TownshipWBC Auto (Bld) [#/Vol]Ordered By: Denny Azevedo on 30-96-6298ZVV (Bld) [#/Vol]7.9 10*3/uL3.8-11.6FSouthview Medical CenterpH Auto test strip (U)Ordered By: Denny Azevedo on 81-61-5137hY (U)6.5 [pH]5.0-9.0[facility] HospitalBILIRUBIN CONJUGATED (DIRECT)on 72-44-9554FOBM, CONJUGATED0.3 mg/dLCritically high0.0-0.2The [facility] SystemComment on above: Performed By: #### DBIL #### [facility] [address] [address] [address] Yaritza Washburn AUTO DIFFon 06-93-1332GOOV #0.1 103/ulNormal0.0-0.1The [facility] SystemComment on above:Performed By: #### CBC #### [facility] [address] [place] [address] Dr. Yaritza BojorquezBasophils/100 WBC (Bld)0.5 %Normal0.2-2.0The [facility] Comment on above:Performed By: #### CBC #### [facility] [address] [address] [address] Yaritza Blue #0.0 103/ulNormal0.0-0.7The [facility] SystemComment on above: Performed By: #### CBC #### [facility] [address] [place] [address] Dr. Yaritza Tafoyaosinophils/100 WBC (Bld)0.1 %Critically low0.9-7.0The [facility] SystemComment on above:Performed By: #### CBC #### [facility] [address] [place] [address] Dr. Yaritza Tafoyarythrocyte distribution width (RBC) [Ratio]12.1 %Camwmi48.0-15.0 The [facility] SystemComment on above:Performed By: #### CBC #### [facility] [address] [place] [address] Dr. Yaritza BojorquezHematocrit (Bld) [Volume fraction]45.0 %Ovfhes46.0-48.0The [facility] SystemComment on above:Performed By: #### CBC #### [facility] [address] [address] [address] Yaritza BojorquezHemoglobin (Bld) [Mass/Vol]16.5 g/dLCritically high12.0-16.0The [facility] SystemComment on above:Performed By: #### CBC #### [facility] [address] [address] [address] Yaritza Chandler #0.05 10e3/ulCritically high0.00-0.03The [facility] Comment on above:Performed By: #### CBC #### [facility] [address] [address] [address] Yaritza Chandler %0.3 %Normal0.0-0.5The [facility] SystemComment on above: Performed By: #### CBC #### [facility] [address] [place] [address] Dr. Yaritza Cruz #3.2 103/ulNormal1.2-3.8The [facility] SystemComment on above:Performed By: #### CBC #### [facility] [address] [place] [address] Dr. Yaritza Gillhocytes/100 WBC (Bld)21.6 %Mhidor68.5-60.0The [facility] SystemComment on above:Performed By: #### CBC #### [facility] [address] [place] [address] Dr. Yaritza GuidryUAL DIFF REQNONormalThe [facility] SystemComment on above: Performed By: #### CBC #### [facility] [address] [place] [address] Dr. Yaritza Tesfaye (RBC) [Entitic mass]30.7 acJzvidd77.7-34.0The [facility] SystemComment on above:Performed By: #### CBC #### [facility] [address] [place] [address] Dr. Yaritza Tesfaye (RBC) [Mass/Vol]36.7 g/dLCritically high29.9-35.2The [facility] SystemComment on above:Performed By: #### CBC #### [facility] [address] [place] [address] Dr. Yaritza TesfayeV (RBC) [Entitic vol]83.8 iHJyklqa12.0-99.0The [facility] SystemComment on above:Performed By: #### CBC #### [facility] [address] [place] [address] Dr. Yaritza Mercedes #0.8 103/ulNormal0.3-0.8The [facility] SystemComment on above:Performed By: #### CBC #### [facility] [address] [place] [address] Dr. Yaritza Jonesocytes/100 WBC (Bld)5.3 %Normal1.7-12.0The [facility] Comment on above:Performed By: #### CBC #### [facility] [address] [place] [address] Dr. Yaritza Pearce #10.5 103/ulCritically high1.4-6.5The [facility] Comment on above:Performed By: #### CBC #### [facility] [address] [place] [address] Dr. Yaritza Alegriautrophils/100 WBC (Bld)72.2 %Mkyqxu24.0-75.0The [facility] SystemComment on above:Performed By: #### CBC #### [facility] [address] [place] [address] Dr. Yaritza Blevinslet mean volume (Bld) [Entitic vol]10.0 fLNormal9.5-13.5The [facility] SystemComment on above:Performed By: #### CBC #### [facility] [address] [place] [address] Dr. Yaritza AraujoT450 103/eeAvfbwb000-760Jzv [facility] SystemComment on above: Performed By: #### CBC #### [facility] [address] [place] [address] Dr. Yaritza BojorquezRBC5.37 106/ulNormal4.20-5.40The [facility] SystemComment on above:Performed By: #### CBC #### [facility] [address] [address] [address] Yaritza BojorquezWBC14.6 103/ulCritically high4.0-11.0The [facility] SystemComment on above:Performed By: #### CBC #### [facility] [address] [address] [address] Yaritza BojorquezCULTURE URINEon 79-59-6569VBQROHT URINECulture Observations: LIGHT GROWTH OF MIXED GENITAL KRYSTAL. NO POTENTIAL PATHOGENS SEEN.NormalSelect Medical Specialty Hospital - Cincinnati NorthComment on above:Performed By: #### URCX #### [facility] [address] [place] [address] Dr. Yaritza Bosch URINE PROFILEon 38-90-7628Rylfzrunl Ql (U)NegativeNormal NEGATIVESelect Medical Specialty Hospital - [facility] NorthComment on above:Performed By: #### NENO UMICRO #### [facility] [address] [place] [address] Dr. Yaritza BojorquezClarity (U)CLEARNormalCLEARSelect Medical Specialty Hospital - [place] NorthComment on above: Performed By: #### NENO UMICRO #### [facility] [address] [place] [address] Dr. Yaritza Cornell (U)DK. YELLOWNormalYELLOWSelect Medical Specialty Hospital - Cincinnati NorthComment on above:Performed By: #### NENO UMICRO #### [facility] [address] [place] [address] Dr. Yaritza Day micrscopic examination will be performed if indicated. NormalSelect Medical Specialty Hospital - Cincinnati NorthComment on above:Performed By: #### NENO UMICRO #### [facility] [address] [place] [address] Dr. Yaritza BojorquezGlucose Ql (U)NegativeNormalNEGATIVESelect Medical Specialty Hospital - [place] NorthComment on above:Performed By: #### ERUCoty UMICRO #### [facility] [address] [place] [address] Dr. Yaritza BojorquezHemoglobin Ql (U)NegativeNormalNEGATIVEGlenbeigh Hospital on above:Performed By: #### NENO UMICRO #### [facility] [address] [place] [address] Dr. Yaritza Jay Ql (U)>=80AbnormalNEGATIVEThe [facility] on above:Performed By: #### NENO UMICRO #### [facility] [address] [place] [address] Dr. Yaritza McmillanOCYTESTRACEAbnormalNEGATIVEThe [facility] SystemComvon [facility] on above:Performed By: #### NENO UMICRO #### [facility] [address] [place] [address] Dr. Yaritza Wiggins Ql (U)NegativeNormalNEGATIVEThe [facility] SystemComment on above:Performed By: #### NENO UMICRO #### [facility] [address] [place] [address] Dr. Yaritza BojorquezpH (U)6.5 [pH]Normal5-9The [facility] Health SystemComvon [facility] on above: Performed By: #### NENO UMICRO #### [facility] [address] [place] [address] Dr. Yaritza BojorquezProtein (U) [Mass/Vol]100 mg/dLAbnormalNEGATIVE/ TRACEThe [facility] Health SystemComvon [facility] on above:Performed By: #### NENO UMICRO #### [facility] [address] [place] [address] Dr. Yaritza BojorquezSPEC GRAVITY1.302Azxjst0.005-<=1.025The [facility] on above:Performed By: #### NENO UMICRO #### [facility] [address] [place] [address] Dr. Yaritza Rodriguez MICRO INDINDICATEDNormalThe [facility] Health SystemComment on above: Performed By: #### NENO UMICRO #### [facility] [address] [place] [address] Dr. Yaritza Mariano Qn (U)4 {Emir'U}/dLAbnormal0.2 - 1.0The [facility] Health SystemComment on above:Performed By: #### ERURTAYLA #### [facility] [address] [address] [address] Yaritza Jerez 14(COMP METB)on 06-10-1543Jikqdap [Mass/Vol]4.5 g/dLNormal 3.4-5.0The [facility] SystemComment on above:Performed By: #### CMP #### [facility] [address] [place] [address] Dr. Yaritza BojorquezAlbumin/Globulin [Mass ratio]1.2 {ratio}NormalThe [facility]als Health SystemComment on above:Performed By: #### CMP #### [facility] [address] [place] [address] Dr. Yaritza MedinaP [Catalytic activity/Vol]48 U/EUzwsfi85-040Kps [facility] SystemComment on above:Performed By: #### CMP #### [facility] [address] [place] [address] Dr. Yaritza MedinaT [Catalytic activity/Vol]25 U/FSkjylf11-55Djj [facility] SystemComment on above:Performed By: #### CMP #### [facility] [address] [place] [address] Dr. Yaritza Escalante gap [Moles/Vol]17.8 mmol/LNormalThe [facility] Comment on above:Performed By: #### CMP #### [facility] [address] [place] [address] Dr. Yaritza BojorquezAST [Catalytic activity/Vol]11 U/LCritically grq86-52Evd [facility] SystemComment on above:Performed By: #### CMP #### [facility] [address] [place] [address] Dr. Yaritza BojorquezBilirubin [Mass/Vol]1.4 mg/dLCritically high0.2-1.0The [facility] SystemComment on above:Performed By: #### CMP #### [facility] [address] [place] [address] Dr. Yaritza BojorquezCalcium [Mass/Vol]9.3 mg/dLNormal8.5-10.1The [facility] Comment on above:Performed By: #### CMP #### [facility] [address] [address] [address] Yaritza BojorquezChloride [Moles/Vol]98 mmol/PGnmews98-203Koy [facility] Comment on above:Performed By: #### CMP #### [facility] [address] [address] [address] Yaritza BojorquezCO2 [Moles/Vol]19.1 mmol/LCritically low21.0-32.0The [facility] SystemComment on above:Performed By: #### CMP #### [facility] [address] [address] [address] Yaritza BojorquezCreatinine [Mass/Vol]0.95 mg/dLNormal0.55-1.02The [facility] SystemComment on above:Performed By: #### CMP #### [facility] [address] [address] [address] Yaritza TafoyaGFR-AF GAMBIAN>60Normal>=60The [facility] SystemComment on above:Performed By: #### CMP #### [facility] [address] [address] [address] Yaritza TafoyaGFR-NON AF GAMBIAN>60Normal>=60The [facility] SystemComment on above:Performed By: #### CMP #### [facility] [address] [address] [address] Yaritza BojorquezGlobulin (S) [Mass/Vol]3.6 g/dLNormalThe [facility] SystemComment on above:Performed By: #### CMP #### [facility] [address] [address] [address] Yaritza BojorquezGlucose [Mass/Vol]138 mg/dLCritically tipf45-922Ipf [facility] SystemComment on above:Performed By: #### CMP #### [facility] [address] [place] [address] Dr. Yaritza BojorquezPotassium [Moles/Vol]2.9 mmol/LCritically low3.5-5.1The [facility] SystemComment on above:Performed By: #### CMP #### [facility] [address] [address] [address] Yaritza BojorquezProtein [Mass/Vol]8.1 g/dLNormal6.4-8.2The [facility] Comment on above:Performed By: #### CMP #### [facility] [address] [address] [address] Yaritza BojorquezSodium [Moles/Vol]132 mmol/LCritically dnq825-159Vgs [facility] SystemComment on above:Performed By: #### CMP #### [facility] [address] [address] [address] Yaritza BojorquezUrea nitrogen [Mass/Vol]8.0 mg/dLNormal7.0-18.0The [facility] SystemComment on above:Performed By: #### CMP #### [facility] [address] [address] [address] Yaritza Barahona nitrogen/Creatinine [Mass ratio]8.4 mg/mgNormalThe [facility] SystemComment on above:Performed By: #### CMP #### [facility] [address] [address] [address] Yraitza TOLENTINOon 66-07-8727AIQWCIGFSLBJPMQMIqtpgrggXFBA SEENSelect Medical Specialty Hospital - [facility] NorthComment on above:Performed By: #### NENO UMICRO #### [facility] [address] [address] [address] Yaritza Hidalgo identified Cx Nom (U)INDICATEDNoOhioHealth Marion General Hospitale [facility] SystemComment on above:Performed By: #### NENO UMICRO #### [facility] [address] [address] [address] Yaritza Jones SEENNormalNONE SEENSelect Medical Specialty Hospital - [facility] NorthComvon [facility] on above:Performed By: #### NENO UMICRO #### [facility] [address] [address] [address] Yaritza Cochran LM Nom (Urine sed)NONE SEENNormnjNONE SEENThe [facility] HospitalComment on above:Performed By: #### ERUR, UMICRO #### [facility] [address] [address] [address] Vigil ChangEpithelial cells LM Ql (Urine sed)MANYAbnormalNONE SEEN /RAREThe [facility] Health SystemComvon [facility] on above:Performed By: #### ERUR, UMICRO #### [facility] [address] [address] [address] Yaritza BojorquezMUCOUSSMALLAbnormalNONE SEENThe [facility] Health SystemComment on above:Performed By: #### ERUR, UMICRO #### [facility] [address] [address] [address] Yaritza BojorquezRassgBVE5-4Rsixkpdr5-5Yss [facility] SystemComment on above:Performed By: #### ERUR, UMICRO #### [facility] [address] [address] [address] Yaritza BojorquezWBC5-10AbnormalNONE SEENThe [facility] Health SystemComment on above: Performed By: #### ERUR, UMICRO #### [facility] [address] [address] [address] Yaritza BojorquezXR ABD FLAT UP_PA Coreen 82-75-4735VB ABD FLAT UP_PA CHEXAMINATION: XR ABD FLAT [...] Electronically authenticated by: MACK SAMUELS Date: 2022-03-03 07:46NoOhio Valley HospitalCovid-19 PCR (CVDTB)on 17-95-5646FUEQ-CoV-2 (COVID-19) RNA KOLE+probe Ql (Unsp spec)Not detectedNormalNOT DETECTEDThe [facility] Comment on above:Result Comment: This test is not yet approved or cleared by the [place] FDA. When there are no FDA-approved or cleared tests available, and other criteria are met, FDA can make tests available under an emergency access mechanism called an Emergency Use Authorization (EUA). The EUA for this test is supported by the [place] of Health and Human Service's (HHS's) declaration [...] consistent with SARS-CoV-2.Performed By: #### CVDTBH #### [facility] [address] [place] [address] Dr. Yaritza BojorquezProvider Note - ED v2on 14-25-7428Gbtceatj Note - ED e6Bhtobwvf Note - ED v2: Chart Review: ED [...] No Current Medications SIGNIFICANT EVENTS: Immunizations Description:Tdap PSYCHIATRIC NURSE: Is : no(1) Is : no(1) RESULTS/VITAL SIGNS VITAL SIGNS: T PRBP SpO2O2(LPM) %FiO2 Method 22-Jun-2019 18:54:00-1390233/69 99 room air, no respiratory support 22-Jun-2019 18:07:00-36.40568571/71 97 room air, no respiratory support MEDICAL [...] Final Verification: completed Procedure performed by: me [employer] Consultant(s): none Findings: grossly normal anatomy Specimen: [...] Data Referenced From Triage - ED 22-Jun-2019 18:07[facility]iRisk Screen - Adult Emergencyon 93-90-6458Ttdb Screen - Adult Emergency Preferred Language: Preferred Language: Preferred Language for Discussing Health Care (patient/designee)Montenegrin Advanced Directives: Advance Directive/DNRno Family Violence Adult: Abuse Screen: Are you or have you been threatened or abused physically, emotionally, or sexually by anyoneno Learning Assessment (Patient): Learning Assessment (Patient): Patient is Able to be Assessed for Learningyes Factors Influencing Readiness to Learnacuteness of illness Factors that Impact Ability to Learnnone Devices/Methods Used to Communicatenone Learning Preferencesaudio Cultural Considerationsnone Developmental Considerationsnone Methodist Considerationsnone Learning Assessment (Other Learner): Learning Assessment (Other Learner): Other learner availableno Pressure Injury/TB/Substance: Pressure Injury: Pressure Injury Present on Admissionno Do you have a coughno Substance Use Current or Former Historynever: Cigarette/Tobacco, e-Cigarette/Vaping, Alcohol, Street Drugs Admission Risk Screen: Significant IndicatorsComplete CAGE: CAGE: Is this an injured patient at a Trauma Center ([facility]/[place]): yes C: Have you ever felt you needed to Cut down on your drinking: no A: Have people Annoyed you by criticizing your drinking: no G: Have you ever felt Guilty about drinking: no E: Have you ever felt you needed a drink first thing in the 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 (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) to steady your nerves or to get rid of hangover: no Electronic Signatures: Mehdi Chaney (RN) (Signed 22-Jun-2019 18:11) Authored: Preferred Language, Advanced Directives, Family Violence Adult, Learning Assessment (Patient), Learning Assessment (Other Learner), Pressure Injury/TB/Substance, CAGE Last Updated: 22-Jun-2019 18:11 by Mehdi Chaney (RN)[facility]iTriage - EDon 83-07-5541Qgludk - EDQuick Triage: The patient and/or guardian [...] Accompanied By: self Language: Spoken Language Preferred: Montenegrin PRIMARY ASSESSMENT CHENTE GONZALEZ's primary assessment is [...] Last Updated: 22-Jun-2019 18:40 by Nitin Singer (AYALA)[facility] Vital Signs Date TimeVital SignValuePerforming FzkdfbgjnSanagkwh35-95-7601 09:45-0400Body mass index (BMI) [Ratio]38.91 kg/m2Deyanira KABA Work Phone: [phone] HospitalMlrupwzulf44-54-9451 09:45-0400Body pwbhvu194.05 kgDeyanira KABA Work Phone: [phone])8873[facility] HospitalByfiebpapw33-21-8219 09:45-0400Diastolic blood vkrcangp67 mm[Hg]Deyanira KABA Work Phone: [facility] HospitalXnimabqybm86-85-1120 09:45-0400Systolic blood mqnzfnyc754 mm[Hg]Deyanira KABA Work Phone: [phone] HospitalWvidfwdcls81-43-6170 10:26-0400Body mass index (BMI) [Ratio]37.94 kg/m2Deyanira Martinez PA Work Phone: [facility] HospitalJepjeuavqu54-12-3209 10:26-0400Body tljymc136.42 kgDeyanira Martinez PA Work Phone: 1(419)483-[address] [place], [place] [address]Uqsvwwjbnn42-63-2534 10:26-0400Diastolic blood dplygzlw64 mm[Hg]Deyanira KABA Work Phone: 1(087)[facility] [place], [place] [address]Yfezspzcfk23-19-4130 10:26-0400Systolic blood gpsvbcke609 mm[Hg]Deyanira KABA Work Phone: 1(462)[facility] [place], [place] [address]Ncfpqfwkfc37-50-7314 09:50-0400Body mass index (BMI) [Ratio]37.61 kg/k6Fkqwb Angie DO Work Phone: 1(191)[facility] [place], [place] [address]Urkoizhwwj94-26-4280 09:50-0400Body .51 kgCorey Angie DO Work Phone: 1(302)[facility] [place] [address]-16-2025 09:50-0400Diastolic blood aahsfjvx01 mm[Hg]Jaspreet Angie DO Work Phone: 1(380)[facility] [place], [place] [address]Cdlfdhjsdk58-77-6482 09:50-0400Systolic blood lpwprevi990 mm[Hg]Jaspreet Angie DO Work Phone: 1(288)[address] [place], [place] [address]357310-06-2025 11:40-0400Body mass index (BMI) [Ratio]37.28 kg/w8OmcytuleWilly Avila EDUCATION PARAPROFESSIONAL Work Phone: 1(354)[address] [place], [place] 7357310-06-2025 11:40-0400Body asgeoy268.61 kgKradana Austin EDUCATION PARAPROFESSIONAL Work Phone: 1(564)[address] [place], [place] [address]7310-06-2025 11:40-0400Diastolic blood jlfvtbna01 mm[Hg]Willy Austin EDUCATION PARAPROFESSIONAL Work Phone: 1(512)[address] [place], [place] [address]7310-06-2025 11:40-0400Systolic blood sxzwaejv950 mm[Hg]Willy Austin EDUCATION PARAPROFESSIONAL Work Phone: 1(676)[address] [place], [place] 7357309-18-2025 10:03-0400Body mass index (BMI) [Ratio]36.08 kg/m2Deyanira KABA Work Phone: 1(647)[facility] [place], [place] [address]Ilmtqopjtq08-65-5752 10:03-0400Body zlffaa82.34 kgDeyanira KABA Work Phone: 1(419)[address] [place], [place] 7357309-18-2025 10:03-0400Diastolic blood iskphwkf87 mm[Hg]Deyanira KABA Work Phone: 1(372)801-[facility] HospitalPrusestdrl64-17-7308 10:03-0400Systolic blood mm[Hg]Deyanira Martinez PA Work Phone: [facility] HospitalXroaenvura77-45-9855 15:05-0400Body mass index (BMI) [Ratio]35.01 kg/t3Hrrhq Angie DO Work Phone: 1(228)499-[address] [place], [place] [address]Oidbhafrza37-66-7561 15:05-0400Body gpefnj88.44 kgCorey Angie DO Work Phone: 1(236)801-[address] [place], [place] [address]Zhwncmqhdv81-06-8715 15:05-0400Diastolic blood abyosvrh17 mm[Hg]Jaspreet Angie DO Work Phone: 1(236)812-[address] [place], [place] [address]Qotgibnkrm81-95-6114 15:05-0400Systolic blood mm[Hg]Jaspreet Angie DO Work Phone: 1(235)710-[address] [place], [place] [address]Ittiasjwkl43-30-1399 10:41-0400Body mass index (BMI) [Ratio]33.91 kg/m2Amy Juan PA Work Phone: 1(836)163-[address] [place], [place] [address]Erduxoembp53-38-8536 10:41-0400Body xljmje27.44 kgDeyanira Juan PA Work Phone: 1(122)960-[facility] HospitalMraornwnns41-97-6469 10:41-0400Diastolic blood zwndyocq90 mm[Hg]Deyanira Martinez PA Work Phone: 1(469)518-[address] [place] [address]-21-2025 10:41-0400Systolic blood hicjxixd284 mm[Hg]Deyanira Martinez PA Work Phone: 1(655)230-[address] [place], [place] [address]Dkqrceyxsp61-17-4203 10:50-0400Body mass index (BMI) [Ratio]33.35 kg/x8Evgjb Angie DO Work Phone: 1(088)937-[facility] HospitalXthfldttbb91-15-8744 10:50-0400Body mmyaaf11.9 kg Jaspreet Angie DO Work Phone: 1(039)565-[address] [place] [address]-07-2025 10:50-0400Diastolic blood gwroigeq64 mm[Hg]Jaspreet Angie DO Work Phone: 1(864)861-[address] [place], [place] [address]Utrpdhmpmw85-53-3038 10:50-0400Systolic blood zyahwthv134 mm[Hg]Jaspreet Angie DO Work Phone: 1(310)[facility] [place], [place] [address]Uiilgaespe51-95-8034 11:16-0400Body mass index (BMI) [Ratio]31.62 kg/h3Flrvj Angie DO Work Phone: 1(090)[address] [place], [place] 7357307-09-2025 11:16-0400Body blnoxu29.18 kgCorey Angie DO Work Phone: 1(444)[address] [place], [place] 7357307-09-2025 11:16-0400Diastolic blood dibwzbrx21 mm[Hg]Jaspreet Angie DO Work Phone: 1(532)[facility] [place], [place] [address]Idlqpqmeax48-49-6083 11:16-0400Systolic blood hsiaokbk481 mm[Hg]Jaspreet Angie DO Work Phone: 1(902)[address] [place], [place] 7357306-04-2025 10:57-0400Body mass index (BMI) [Ratio]31.53 kg/k4LinbtmtqWilly Avila EDUCATION PARAPROFESSIONAL Work Phone: 1(974)[facility] [place], [place] [address]Eudswvrmqv39-62-2707 10:57-0400Body nlurrv07.96 kgKrprashant Avila EDUCATION PARAPROFESSIONAL Work Phone: 1(433)[facility] [place], [place] [address]Ajangyifno55-81-8664 10:57-0400Diastolic blood grdnaqrs87 mm[Hg]Willy Avila EDUCATION PARAPROFESSIONAL Work Phone: 1(443)[address] [place], [place] 7357306-04-2025 10:57-0400Systolic blood arlqeeti858 mm[Hg]Willy Avila EDUCATION PARAPROFESSIONAL Work Phone: 1(198)[address] [place], [place] 7357305-30-2025 11:42-0400Diastolic blood mguhxsmr63 mm[Hg][facility]05-30-2025 11:42-0400Systolic blood iovyjosa368 mm[Hg][facility]05-30-2025 11:21-0400Body mass index (BMI) [Ratio]32.01 kg/m2[facility]05-30-2025 11:21-0400Body jcsohd04.26 kg[facility]04-28-2025 13:51-0400Body mass index (BMI) [Ratio]31.35 kg/n1Gfloa Angie DO Work Phone: [facility] HospitalMqvyrlnuuj60-94-8257 13:51-0400Body kfwbul03.46 kgCorey Angie DO Work Phone: [facility] HospitalLedxasqchz63-99-0026 13:51-0400Diastolic blood oirwxarc65 mm[Hg]Jaspreet Angie DO Work Phone: [facility] HospitalBzvgrvdumm32-79-8896 13:51-0400Systolic blood fouxnahp358 mm[Hg]Jaspreet Angie DO Work Phone: [facility] HospitalOdyuxppegq10-05-8189 22:07-0500Diastolic blood irrykkgz19 mm[Hg]PHYSICIAN [facility]12-15-2023 22:07-0500Heart rate71 /minPHYSICIAN [facility] 08-11-2023 22:07-0500Respiratory rate18 /minPHYSICIAN [facility]12-15-2023 22:07-8227BtB6% (BldA) [Mass fraction]99 % PHYSICIAN [facility]12-15-2023 22:07-0500 Systolic blood zajcxolm458 mm[Hg]PHYSICIAN [facility]12-15-2023 19:17-0500Body ooxtmb348.18 cmPHYSICIAN [facility]12-15-2023 19:17-0500Body wxlvji82.73 kgPHYSICIAN [facility] Encounters Encounter DateEncounter TypeCare ProviderFacilityStart: 06-30-2025 End: 79-63-2776Apsbatuyx Result EncounterCorey Angie DO Work Phone[facility] External Department UnsolicitedStart: 06-30-2025 End: 42-52-9776Udtroutgv Result EncounterCorey Angie DO Work Phone: noms External Department UnsolicitedStart: 06-26-2025 End: 75-61-7698Nnbrfp Effie Martinez PA Work Phone: [facility] [place] [facility]YNStart: 06-26-2025 End: 42-07-2215Acmcgf flowsheetDeyanira Martinez PA Work Phone: NOXR [place] [facility]BGYNStart: 06-26-2025 End: 15-10-4249yiaekmbxlsDOY RAMEYNot AvailableStart: 06-26-2025 End: 05-88-9736Tqsdtp outpatient visit 15 minutesAmy Juan KABA Work Phone: NOXH [place] OBGYNComment on above:39 weeks gestation of ([facility]); Third trimester ([facility])Start: 06-23-2025 End: 99-53-1473Ukdwoxxph Result EncounterCorey Angie DO Work Phone: noms External Department UnsolicitedStart: 06-23-2025 End: 15-52-5908Mxpspugxa Result EncounterCorey Angie DO Work Phone: [facility] External Department UnsolicitedStart: 06-19-2025 End: 97-92-0415Injkrc Effie KABA Work Phone: [facility] [place] [facility]BGYNStart: 06-19-2025 End: 52-15-7554Efxfrk aaronheetDeyanira Martinez PA Work Phone: [facility] [place] [facility]BGYNStart: 06-19-2025 End: 01-72-2419fwqjodowcaUZD RAMEYNot AvailableStart: 06-19-2025 End: 60-94-6296Qimdok outpatient visit 15 minutesAmy Juan KABA Work Phone: [facility] [place] OBGYNComment on above:Third trimester ([facility]); 38 weeks gestation of ([facility])Start: 06-12-2025 End: 94-70-1225Jtdilv flowsheetCorey Angie DO Work Phone: NOQY [place] [facility]BGYNStart: 06-12-2025 End: 55-90-7449Ywwbgs flowsheetCorey Angie DO Work Phone: NOSO [place] [facility]BGYNStart: 06-12-2025 End: 66-16-4681prvnfdblmbYXGME FAZIONot AvailableStart: 06-12-2025 End: 25-34-7917Rqfdgq outpatient visit 15 minutesCorey Angie DO Work Phone: NOHR [place] OBGYNComment on above:Third trimester ([facility]); 37 weeks gestation of ([facility])Start: 06-02-2025 End: 56-71-0993Fbdjjiaha Result EncounterCorey Angie DO Work Phone: noms External Department UnsolicitedStart: 06-02-2025 End: 60-84-7185Ouoafodtn Result EncounterCorey Angie DO Work Phone: noms External Department UnsolicitedStart: 06-02-2025 End: 75-70-4348ecjrvkswvsZUDMWMIY EBERLYNot AvailableStart: 06-02-2025 End: 79-17-8001Sikxka outpatient visit 15 minutesKristina Austin EDUCATION PARAPROFESSIONAL Work Phone: noms [place] OBGYNComment on above:35 weeks gestation of ([facility]); Third trimester ([facility])Start: 05-26-2025 End: 72-55-8809Txvoiqfdo Result EncounterCorey Angie DO Work Phone: n[facility] External Department UnsolicitedStart: 05-26-2025 End: 32-35-4042Uaohdbijn Result EncounterCorey Angie DO Work Phone: noms External Department UnsolicitedStart: 05-20-2025 End: 58-59-1822Vovrqopnv Result EncounterCorey Angie DO Work Phone: n[facility] External Department UnsolicitedStart: 05-20-2025 End: 63-63-2167Xsmbxqsgm Result EncounterCorey Angie DO Work Phone: noMS External Department UnsolicitedStart: 05-19-2025 End: 37-24-2851Cqjdjfnwo Result EncounterCorey Angie DO Work Phone: noMS External Department UnsolicitedStart: 05-19-2025 End: 16-47-2955Lszoitbdk Result EncounterCorey Angie DO Work Phone: noMS External Department UnsolicitedStart: 05-15-2025 End: 04-05-0490Pfjjly Effie KABA Work Phone: [facility] [place] [facility]BGYNStart: 05-15-2025 End: 53-93-4498Wdovow Effie KABA Work Phone: [facility] [place] [facility]BGYNStart: 05-15-2025 End: 29-42-5566aixrpeklpnMFH Mitra AvailableStart: 05-15-2025 End: 53-19-4069Bxtzqs outpatient visit 15 minutesDeyanira KABA Work Phone: [facility] [place] OBGYNComment on above:33 weeks gestation of ([facility]); Third trimester ([facility]); Gestational diabetes mellitus (GDM), antepartum, gestational diabetes method of control unspecified([facility])Start: 04-30-2025 End: 22-84-1787Mitked outpatient visit 15 minutesCorey Angie DO Work Phone: [facility] [place] OBGYNComment on above:31 weeks gestation of ([facility]); Third trimester ([facility]); Gestational diabetes mellitus (GDM), antepartum, gestational diabetes method of control unspecified([facility])Start: 04-30-2025 End: 54-47-5366opwbtuwxphPELEE FAZIONot AvailableStart: 04-17-2025 End: 29-46-7341Tqhizy Effie KABA Work Phone: [facility] [place] [facility]BGYNStart: 04-17-2025 End: 26-14-1018Nntqcv flowsRichard KABA Work Phone: [facility] [place] OBGYNStart: 04-17-2025 End: 59-00-0445abdsmxztknRES Mitra AvailableStart: 04-17-2025 End: 34-28-1968Yqsjrg outpatient visit 15 minutesAmy Juan KABA Work Phone: [facility] [place] OBGYNComment on above:Size of fetus inconsistent with dates in second trimester ([facility]) (Primary Dx); Third trimester ([facility]); 29 weeks gestation of ([facility])Start: 04-03-2025 End: 25-56-2100Mzjefb flowsheetCorey Angie DO Work Phone: [facility] [place] [facility]BGYNStart: 04-03-2025 End: 27-20-1789Tdhjkc flowsheetCorey Anige DO Work Phone: [facility] [place] [facility]BGYNStart: 04-03-2025 End: 03-56-2844hstuvbdlxtKYJWX FAZIONot AvailableStart: 04-03-2025 End: 96-58-0720Bvovnt outpatient visit 15 minutesCorey Angie DO Work Phone: [facility] [place] OBGYNComment on above:Second trimester ([facility]); 27 weeks gestation of ([facility])Start: 03-28-2025 End: 32-32-9510Oredq abstractingScanning Provider ExternalMaternal- Medicine at [facility] Hospitaltart: 03-21-2025 End: 59-90-3677Ejzblhljs Result EncounterCorey Angie DO Work Phone: NOMS External Department UnsolicitedStart: 03-21-2025 End: 68-96-0347Xxqtdqqpi Result EncounterCorey Angie DO Work Phone: [facility] External Department UnsolicitedStart: 03-19-2025 End: 14-85-5086zwpofsexapYRFHY FAZIONot AvailableStart: 03-06-2025 End: 65-71-6258Fwsnasvrv Result EncounterCorey Angie DO Work Phone: noms External Department UnsolicitedStart: 03-06-2025 End: 74-90-6194Zxfqockte Result EncounterCorey Angie DO Work Phone: n[facility] External Department UnsolicitedStart: 03-05-2025 End: 54-48-1000Dsqjak flowsheetCorey Angie DO Work Phone: noms BCP OBStart: 03-05-2025 End: 56-69-6606Egnxcv flowsheetCorey Angie DO Work Phone: noms BCP OBStart: 03-05-2025 End: 63-10-0865Oyadkubyo Result EncounterCorey Angie DO Work Phone: noms External Department UnsolicitedStart: 03-05-2025 End: 68-22-3688Kcavxrb encounter procedureCorey Angie DO Work Phone: noms HealthcareStart: 03-05-2025 End: 69-52-7764Idiquwyv preventive med est patient 18-39 yrsCorey Angie DO Work Phone: noms [facility] OBComment on above:Second trimester ([facility] 23 weeks gestation of ([facility]); Diabetes mellitus screening; Well woman exam with routine gynecological exam; Other insomniaStart: 03-05-2025 End: 38-81-9806zzfzgeeilnBYOPP FAZIONot AvailableStart: 02-19-2025 End: 00-12-1239jlfbqwofupIYQFCAFU EBERLYNot AvailableStart: 02-12-2025 End: 48-25-9980xoynxkixziVKLMA FAZIONot AvailableStart: 01-31-2025 End: 59-09-4259Nbayhuath Result EncounterCorey Angie DO Work Phone: noms External Department UnsolicitedStart: 01-31-2025 End: 64-78-9676Emrsqzdcu Result EncounterCorey Angie DO Work Phone: NOM[facility] External Department UnsolicitedStart: 01-29-2025 End: 24-00-3798Ytynfp flowsheetWilly Cardozaly EDUCATION PARAPROFESSIONAL Work Phone: NOMS BCP OBStart: 01-29-2025 End: 97-60-1716Jlhzdf flowsheetKristina Austin EDUCATION PARAPROFESSIONAL Work Phone: NOMS BCP OBStart: 01-29-2025 End: 43-05-4795Fvsdvnzk Result EncounterKristina Austin EDUCATION PARAPROFESSIONAL Work Phone: NOM[facility] External Department UnsolicitedStart: 01-29-2025 End: 11-19-8073boianwmqbdUXEVLYKI EBERLYNot AvailableStart: 01-29-2025 End: 45-13-4926Ipmauj outpatient visit 15 minutesKrprashant Avila EDUCATION PARAPROFESSIONAL Work Phone: NOMS BCP OBComment on above:Second trimester ; 18 weeks gestation of pregnancyStart: 01-24-2025 End: 54-16-4962Klwmtu outpatient visit 5 minutesNoms Bcp Ob Angie NurseNOMS BCP OBComment on above:GA: 14t8vXizyw: 01-24-2025 End: 01-99-0638lejnnsrmnlABKXM FAZIONot AvailableStart: 01-06-2025 End: 88-93-6555cbusgvvgwlWhrxpib Filomena MarkerFacility:[facility] Hospitaltart: 01-06-2025 End: 04-95-1753Szlmdstn ReferredMelissa Marker DO Work Phone: [facility] Path Spec [facility] HospStart: 12-23-2024 End: 65-56-9778Eompgm flowsheetCorey Angie DO Work Phone: NOMS BCP OBStart: 12-23-2024 End: 87-73-5032Ucvvmz flowsheetCorey Angie DO Work Phone: NOMS BCP OBStart: 12-23-2024 End: 54-84-8769ieavretmhhPJXFQ FAZIONot AvailableStart: 12-23-2024 End: 36-12-5983Ljlsnp outpatient visit 15 minutesCorey Angie DO Work Phone: NOQO [facility] OBComment on above:Hyperemesis gravidarum; Follow-up examStart: 08-11-2023 End: 82-74-4463Ijiqgvisf department patient visitPHYSICIAN [facility] Work Phone: Start: 03-03-2022 End: 57-42-4656rqroltqrxcFG DOCTOR MISCFacility:W0Ixnso: 08-23-2021 End: 49-13-4759scbvbxwhgnHPFOGY RODRIGUEZFacility:H1 Procedures DateProcedureProcedure DetailPerforming ClinicianStart: 29-37-6394PQ OB BPP W NON-STRESSCorey Angie DO Work Phone: Start: 50-34-3236CKSKIORWElbvc Angie DO Work Phone: Start: 61-73-4843Wlhyu dip stick/tablet rgnt non-auto w/o micrscpAmy Juan KABA Work Phone: Start: 78-43-1585MB OB BPP W NON-STRESSCorey Angie DO Work Phone: Start: 22-74-5555Ubgei dip stick/tablet rgnt non-auto w/o micrscpAmy Juan KABA Work Phone: Start: 74-97-0596Jnlwg dip stick/tablet rgnt non-auto w/o micrscpCorey Angie DO Work Phone: Start: 72-76-6129Rqsgn dip stick/tablet rgnt non-auto w/o micrscpKristina Austin TAPIA Work Phone: Start: 68-66-6089PG OB BPP W NON-STRESSCorey Angie DO Work Phone: Start: 07-00-9718XL OB BPP W NON-STRESSCorey Angie DO Work Phone: Start: 58-30-2518ZT AMNIOTIC FLUID VOLUMECorey Angie DO Work Phone: Start: 12-89-7929CU OB BPP W NON-STRESSCorey Angie DO Work Phone: Start: 89-70-5391Kqqed dip stick/tablet rgnt non-auto w/o micrscpAmy Juan PA Work Phone: Start: 82-99-6738Yaqdb dip stick/tablet rgnt non-auto w/o micrscpCorey Angie DO Work Phone: Start: 12-95-0036Skrnh dip stick/tablet rgnt non-auto w/o micrscpCorey Angie DO Work Phone: Start: 15-52-9341Fpwba dip stick/tablet rgnt non-auto w/o micrscpCorey Angie DO Work Phone: Start: 64-14-4156AQPYNMK TOLERANCE 3 HOURCorey Angie DO Work Phone: Start: 83-30-5245Sidpzkf tolerance test gtt 3 specimensNot In System Ref ProvStart: 86-51-9999EJKETPR 1 HOURCorey Angie DO Work Phone: Start: 62-85-4118Pjwer dip stick/tablet rgnt non-auto w/o micrscpCorey Angie DO Work Phone: Start: 05-32-0293OZS,APTIMA HPV,AGE GDLNCorey Angie DO Work Phone: Start: 52-76-4951Stau ia hepatitis b surface antigen Not In System Ref ProvStart: 93-21-8321YQM TESTCorey Angie DO Work Phone: Start: 80-34-1656Zgyltmjq rubellaNot In System Ref ProvStart: 10-54-1494Unmdanwe screenScanning ExternalStart: 96-74-1661Otyb scrn 1+ class nonchromoNot In System Ref ProvStart: 90-30-5251Aiupxihdbx glycosylated b6bOcvjxesh Provider ExternalStart: 00-77-3109ABZ 1&2 AB/AG SCREEN (P24 AG)Not In System Ref ProvStart: 81-53-3338CBAH AND SCREENNot In System Ref ProvStart: 36-30-9489KLBGGZX TRACT INFECTION (HTRX)Willy Avila EDUCATION PARAPROFESSIONAL Work Phone: Start: 54-22-8777Cerpe dip stick/tablet rgnt non-auto w/o micrscpWilly Avila EDUCATION PARAPROFESSIONAL Work Phone: Start: 71-41-9073Kytqd dip stick/tablet rgnt non-auto w/o micrscpCorey Angie DO Work Phone: Start: 00-54-3662Wrmzq X-ray of right handPHYSICIAN NO FAMILYStart: 77-92-4457Hizocdss tomography of abdomen and pelvis with contrast PHYSICIAN NO FAMILYStart: 44-73-7264DX cervical spine without contrastPHYSICIAN NO FAMILYStart: 91-48-8430VS of facial bones without contrastPHYSICIAN NO FAMILY Start: 84-21-0896QU of head without contrastPHYSICIAN NO FAMILYStart: 08-11-2023 CT of thorax with contrastPHYSICIAN NO FAMILYStart: 08-11-2023 End: 75-22-6143Xdczx chest X-rayPHYSICIAN NO FAMILY Plan of Treatment DateCare ActivityDetailAuthorStart: 08-12-2025 End: 75-62-9376ogbattyrua80/16/2025 10:30 AM EST Visit MATTIE VARGAS [address] [place] [address] Deyanira Martinez PA [address] [place] [address] MATTIE BLANDtart: 06-26-2025 End: 88-15-7033Ekalmkj encounter ohdylozal86/30/2025 9:20 AM EDT Routine [facility] [address] [place], [id number] Deyanira Martinez, PA [address] [place] [address] [facility] [place] OBGYNStart: 06-19-2025 End: 77-22-7799Dxzhfcw encounter hptrvybna00/23/2025 9:40 AM EDT Routine [facility] [place] [facility] [address] [place], [id number] Deyanira Martinez, PA [address] [place] [address] [facility] [place] [facility]BGYNStart: 06-12-2025 End: 17-18-2845Qcodmzo encounter ioggnljgz50/16/2025 9:40 AM EDT Routine [facility] [place] [facility] [address] [place], [id number] Jaspreet Adams DO [address] [place] [address] [facility] [place] [facility]BGYNStart: 06-02-2025 End: 71-16-9477UTBDWZV, GROUP B STREP WITH SUSCEPTIBLITYCULTURE, GROUP B STREP WITH SUSCEPTIBLITY Lab Routine Third trimester ([facility]) Expected: 06/02/2025, Expires: 06/02/2026[facility] Work Phone: comment on above:Expected: 06/02/2025, Expires: 06/02/2026Start: 06-02-2025 End: 14-97-5789Yjncldy encounter yxeqmhvwi30/06/2025 11:20 AM EDT Routine [facility] [place] [facility] [address] [place] [id number] Willy Avila, WILLIE [address] [place] [id number] NOMFerny [place] OBGYNStart: 04-30-2025 End: 65-20-8087MZ biophysical profile w non stress testUS biophysical profile w non stress test Imaging Routine Gestational diabetes mellitus (GDM),antepartum, gestational diabetes method of control unspecified ([facility]) Expected: 04/30/2025 (Approximate), Expires: 10/28/2025[facility] Work Phone: comment on above:Expected: 04/30/2025 (Approximate), Expires: 10/28/2025Start: 69-38-0241Sticvtspb vaccinationInfluenza Vaccine FirstHealthtart: 04-17-2025 End: 10-13-4269BH for pregnancyUS OB follow up transabdominal approach Imaging Routine Size of fetus inconsistent with dates in second trimester ([facility]) Expected: 04/17/2025, Expires: 08/17/2025[facility] [employer] Work Phone: comment on above:Expected: 04/17/2025, Expires: 08/17/2025Start: 04-17-2025 End: 77-60-3458Zncjhxt encounter mwnlndcek43/21/2025 9:50 AM EDT Routine NOMFerny VARG[facility] [address] [place], [id number] Deyanira Martinez PA [address] [place] [address] NOMFerny [place] OBGYNStart: 04-03-2025 End: 52-42-8853uazkptgxfb97/07/2025 1:30 PM EDT Support Visit Maternal- Medicine at [facility] [address] [place] [id number] Rimma Richey RN [address] [facility], [address] [place] [id number] Nikky Gonzalez, BLADE Brian, Consuel[place], [place] [address] [place] [address] [facility] 04-03-2025 End: 08-49-9420Mtvsmoh encounter galshxehq51/07/2025 10:40 AM EDT Routine NOMS BCP OB [address] [place], [place] [address] Jaspreet Adams, DO [address], [place] [address] NOMS BCP OBStart: 03-19-2025 End: 70-49-4758Rdwqkouknqhn / ancillary services fqnymxmuth05/23/2025 9:30 AM EDT Ancillary Procedure NOMS BCP OB [address] [place], [place] [address] NOMS BCP OBStart: 03-05-2025 End: 50-07-4464RTU panel - Blood by Automated countCBC Lab Routine Diabetes mellitus screening Expected: 03/05/2025 (Approximate), Expires: 03/05/2026NOTN HealthcareComment on above:Expected: 03/05/2025 (Approximate), Expires: 03/05/2026Start: 03-05-2025 End: 97-55-6399Foszdyvjtjf of glucose 1 hour after glucose challenge for glucose tolerance testGlucose tolerance, 1 hour Lab Routine Diabetes mellitus screening Expected: 03/05/2025 (Approximate), Expires: 03/05/2026NOTN HealthcareComment on above:Expected: 03/05/2025 (Approximate), Expires: 03/05/2026Start: 03-05-2025 End: 20-15-4708Yerasqr encounter dtrvbkoav07/09/2025 11:00 AM EDT Routine NOMS BCP OB [address] [place] [address] Jaspreet Adams, DO [address] [place] [address] ArrivedNOMS BCP OBComment on above: ArrivedStart: 02-27-2025 End: 88-02-2207Vclhgge encounter civmzmouy05/03/2025 8:50 AM EDT Routine NOMS BCP OB [address] [place] [address] Jaspreet Adams, [address] [facility] [place] [address] NOMS BCP OBStart: 02-12-2025 End: 37-61-1415Owvcrwev Snhpeos0602/12/2025 9:00 AM EDT Clinical Support NOMS BCP OB [address] [place] [address] [facility] BCP OB Start: 01-29-2025 End: 86-55-8759Cpwtrjf encounter utnljuvxw00/04/2025 10:20 AM EDT Routine [facility] OB [address] [place] [address] Willy Avila, EDUCATION PARAPROFESSIONAL [address] [place] [id number] [facility] BCP OBStart: 01-24-2025 End: 42-61-4287VXQ/RhABO/Rh Lab Routine Missed menses , unspecified gestational age Expected: 01/24/2025 (Approximate), Expires: 01/24/2026NOMS HealthcareComment on above:Expected: 01/24/2025 (Approximate), Expires: 01/24/2026Start: 01-24-2025 End: 33-57-7749Dlwct fetoprotein, maternalAlpha fetoprotein, maternal Lab Routine Encounter for supervision of normal first in first trimester Expected: 01/24/2025 (Approximate), Expires: 03/26/2025NOMS HealthcareComment on above:Expected: 01/24/2025 (Approximate), Expires: 03/26/2025Start: 01-24-2025 End: 55-37-8134Lvknb type and Indirect antibody screen panel - BloodType and screen Lab Routine Missed menses , unspecified gestational age Expected: 01/24/2025 (Approximate), Expires: 01/24/2026[facility] Work Phone: comment on above:Expected: 01/24/2025 (Approximate), Expires: 01/24/2026Start: 01-24-2025 End: 50-80-8114Szmji of abuse panel - Urine by Screen methodRapid drug screen, urine Lab Routine , unspecified gestational age Encounter for supervision of normal first in first trimester Expected: 01/24/2025 (Approximate), Expires: 01/24/2026NOMS HealthcareComment on above:Expected: 01/24/2025 (Approximate), Expires: 01/24/2026Start: 01-10-2025 End: 38-07-9165ojsotzdill86/16/2025 9:30 AM EDT Initial [facility] OB [address] [place], [place] [address] [place] [address] [facility] OBStart: 01-10-2025 End: 40-16-3807Arloapudkjxu / ancillary services mrbjtcjapq98/16/2025 9:00 AM EDT Ancillary Procedure [facility] [place] [address] [place] [address] [facility]IR [facility] OBStart: 37-98-8869Idqgcpdu identified in Urine by CultureUrine [facility] Hospitaltart: 54-97-8165Dccsp [facility]: 07-05-1523Vkkcwaacu for malignant neoplasm of cervixPap SmearSouthern Ohio Medical Center SystemStart: 71-31-5365PLjQ,Tdap and Td Vaccines (1 - Tdap)DTaP,Tdap and Td Vaccines (1 - Tdap)[facility] SystemStart: 82-02-0553Fkokt BMI ScreeningAdult BMI ScreeningSouthern Ohio Medical Center SystemStart: 61-68-8790Kssindeeqk ScreeningDepression ScreeningSouthern Ohio Medical Center SystemStart: 99-82-2249Ckoggtk ScreeningTobacco ScreeningProMedica Health System Bacteria identified in Urine by CultureUrine culture Microbiology Routine Missed menses Ordered: 01/24/2025[facility] HealthcareComment on above:Ordered: 01/24/2025 Bacteria identified in Urine by CultureUrine culture Microbiology Routine Second trimester Ordered: 01/29/2025[facility] Work Phone: comment on above:Ordered: 01/29/2025BC W Auto Differential panel - BloodCBC and differential Lab Routine Missed menses , unspecified gestational age Ordered: 01/24/2025[facility] HealthcareComment on above:Ordered: 01/24/2025ytology Cervical or vaginal smear or scraping studyPap Smear Pathology and Cytology Routine Well woman exam with routine gynecological exam Ordered: 03/05/2025[facility] Work Phone: comment on above:Ordered: 03/05/2025Hemoglobin A1c/Hemoglobin.total in BloodHemoglobin A1c Lab Routine Missed menses , unspecified gestational age Ordered: 01/24/2025[facility] HealthcareComment on above: Ordered: 01/24/2025Hepatitis B virus surface Ag [Presence] in Serum or Plasma by ImmunoassayHepatitis B surface antigen Lab Routine Missed menses , unspecified gestational age Ordered: 01/24/2025[facility] HealthcareComment on above: Ordered: 01/24/2025Hepatitis C virus Ab [Presence] in Serum or Plasma by ImmunoassayHepatitis C antibody Lab Routine Missed menses , unspecified gestational age Ordered: 01/24/2025[facility] HealthcareComment on above:Ordered: 01/24/2025HIV-1/HIV-2 antigen/antibody combination immunoassayHIV-1 and HIV-2 antibodies Lab Routine Missed menses , unspecified gestational age Ordered: 01/24/2025[facility] HealthcareComment on above:Ordered: 01/24/2025Patient EducationHead injury in adults Blunt Abdominal Trauma ED Blunt Chest Trauma ED [facility] Work Phone: Patient referralSumma Health Barber[facility] Work Phone: Reagin Ab [Presence] in Serum by RPRRPR Lab Routine Missed menses , unspecified gestational age Ordered: 01/24/2025[facility] HealthcareComment on above:Ordered: 01/24/2025Rubella antibody, IgGRubella antibody, IgG Lab Routine Missed menses , unspecified gestational age Ordered: 01/24/2025NOTN HealthcareComment on above:Ordered: 01/24/2025 Immunizations Immunization DateImmunizationNotesCare UbhpunbjYmxwnzja56-98-5539rowjefy toxoid, reduced diphtheria toxoid, and acellular pertussis vaccine, adsorbedPHYSICIAN NO [facility] Payers DatePayer CategoryPayerPolicy [id number] Health InsuranceCARESOURCE MEDICAID ..[id number] [id number] [id number] 2.1.440351.3.57[id number] ..1.405036.3.57[id number] 2..1.189681.3.57[id number] 2..1.197357.3.57[id number] 2.16.840.1.078388.3.57[id number] 2.16.840.1.762339.3.57[id number] 2.16.840.1.939120.3.57[id number] 2.16.840.1.450197.3.579.[id number] 2.16.840.1.674331.3.57[id number] 2.840.1.300943.3.57[id number] 2.840.1.383528.3.579.[id number] 2.0.1.205192.3.57[id number] 2.840.1.706247.3.57[id number] 2.840.1.935597.3.579.2.829[id number] 2.0.1.277449.3.57[id number] 2.16840.1.114175.3.57[id number] 2.840.1.424881.3.579.2.616376-85-6953Msmodrb6261333 2.16840.1.475894.3.579.2.507693-61-3558Pxkkczc354550137430GrrcrgvYbifvfh Auto/[id number] 7140m8u9-n649-69t0-509z-3rk58s103s7tXeujvivVDNB/HFA/FAP Lctrig20x2u607-u842-42eh-[id number] 2.16.840.1.461054.3.579.2.531UnknownRegular Auto/Xobfbybqm07-1279572 3yx60x89-849f-724v-n1n7-0d4rn8778918ZoxcthrMELA/HFA/FAP PbtuxrP461297 28642m80-d051-3z2h-924w-bu2s27pqy9up Social History DateTypeDetailFacilityStart: 08-11-2023 End: 67-78-7035Qrsykfd smoking status NHISNever smoked tobacco (finding) [facility]tart: 04-19-0857Rdw Assigned At BirthFeMadison HealthTobacc smoking status NHISTobacco smoking consumption unknownNOTN HealthcareStart: 78-64-6826Gbohct identityIdentifies as female gender (finding)[facility] HealthcareStart: 91-19-6211Zowuyq orientationNot on [facility] Work Phone: Start: 01-07-2025 End: 10-52-0731KxnSwacqu (finding)[facility] Hospitaltart: 58-57-3146WxyhbqgvpMRYY HealthcareStart: 89-53-5315Het assigned at birthNot on [facility] AndersonFOOTBEAT [facility] Healthwy Health SystemStart: 77-81-5595Dtdtild of Social functionNOTN Healthcare Work Phone: Start: 62-36-9113DgfTjbwlvZXZS Healthcare Medical Equipment Procedure CodeEquipment CodeEquipment Original TextEquipment IdentifierDates1 strip by In Vitro route Daily Use in the morning prior to breakfast, 1 hour after each meal for atotal of 4times daily.[id number]: 03-24-2025 End: each by In Vitro route Daily Use to check FSBS four times daily [id number]: 03-24-2025 End: 04-23-2025 Clinical Notes 12-23-2024 to 06-26-2025 Note Date & EintEskgRfsymcpw21-82-5976 History of Present illness Narrative* SENDY Fan - 06/26/2025 9:20 AM EDT [...] nursing note reviewed. Exam conducted with a principal technical specialist present. Vitals: Estimated body mass index is 38.91 kg/m as calculated from the following: Height as of 21: 5' 5 . Weight as of this encounter: 233 lb 12.8 oz. BP: 130/80 Patient's last menstrual period was 10/04/2024 (approximate). Assessment/Plan ICD-10-CM 1. 39 weeks gestation of ([facility]) Z3A.39 POCT urinalysis dipstick manually resulted 2. Third trimester ([facility]) Z34.93 POCT urinalysis dipstick manually resulted [...] behalf of: SENDY Fan documented in this encounterSalem Memorial District HospitalKtullpmsir42-73-4407 History of Present illness Narrative* SENDY Fan [...] ASSESSMENT & PLAN ICD-10-CM 1. Third trimester ([facility]) Z34.93 2. 38 weeks gestation of ([facility]) Z3A.38 POCT urinalysis dipstick manually resulted [...] behalf of: SENDY Fan documented in this encounterSalem Memorial District HospitalDozoyblavt98-19-1420 History of Present illness Narrative* Nissa Matt [...] nursing note reviewed. Exam conducted with a principal technical specialist present. Vitals: Estimated body mass index is 37.61 kg/m as calculated from the following: Height as of 12/01/20: 5' 5 . Weight as of this encounter: 226 lb. BP: 128/72 Patient's last menstrual period was 10/04/2024 (approximate). ASSESSMENT & PLAN ICD-10-CM 1. Third trimester ([facility]) Z34.93 POCT urinalysis dipstick manually resulted 2. 37 weeks gestation of ([facility]) Z3A.37 Patient presents today for a [...] surgical history on file. documented in this encounterSalem Memorial District HospitalHlklbpzvym18-62-8219 History of Present illness Narrative* Willy Avila [...] nursing note reviewed. Exam conducted with a principal technical specialist present. Vitals: Estimated body mass index is 37.28 kg/m as calculated from the following: Height as of 12/01/20: 5' 5 . Weight as of this encounter: 224 lb. BP: 126/80 Patient's last menstrual period was 10/04/2024 (approximate). ASSESSMENT & PLAN ICD-10-CM 1. 35 weeks gestation of ([facility]) Z3A.35 POCT urinalysis dipstick manually resulted 2. Third trimester ([facility]) Z34.93 CULTURE, GROUP B STREP WITH [...] of: Willy Avila NP documented in this encounterSalem Memorial District HospitalMxmoiodvov38-19-9247 History of Present illness Narrative* SENDY Fan [...] to check FSBS. Blood Glucose Monitoring Suppl (Synthe[employer]io Glucometer) w/Device kit 1 kit, Does not [...] PLAN ICD-10-CM 1. 33 weeks gestation of ([facility]) Z3A.33 POCT urinalysis dipstick manually resulted 2. Third trimester ([facility]) Z34.93 POCT urinalysis dipstick manually resulted 3. Gestational diabetes mellitus (GDM), antepartum, gestational diabetes method of control unspecified ([facility]) O24.419 Return OB: Patient presents today [...] behalf of: SENDY Fan documented in this encounterSalem Memorial District HospitalMpozdqhcpw61-39-0314 History of Present illness Narrative* Rahel Pendleton [...] to check FSBS. Blood Glucose Monitoring Suppl (Synthesio Glucometer) w/Device kit 1 kit, Does not [...] nursing note reviewed. Exam conducted with a principal technical specialist present. Vitals: Estimated body mass index is 35.01 kg/m as calculated from the following: Height as of 12/01/20: 5' 5 . Weight as of this encounter: 210 lb 6.4 oz. BP: 120/70 Patient's last menstrual period was 10/04/2024 (approximate). ASSESSMENT & PLAN ICD-10-CM 1. 31 weeks gestation of ([facility]) Z3A.31 POCT urinalysis dipstick manually resulted 2. Third trimester ([facility]) Z34.93 POCT urinalysis dipstick manually resulted 3. Gestational diabetes mellitus (GDM), antepartum, gestational diabetes method of control unspecified ([facility]) O24.419 US biophysical profile w non [...] of: Jaspreet Adams DO documented in this encounterSalem Memorial District HospitalZbzontbmsi64-19-3068 History of Present illness Narrative* SEDNY Fan - 04/17/2025 9:50 AM EDT Reason [...] ASSESSMENT & PLAN ICD-10-CM 1. Third trimester ([facility]) Z34.93 POCT urinalysis dipstick manually resulted 2. 29 weeks gestation of ([facility]) Z3A.29 POCT urinalysis dipstick manually resulted [...] behalf of: SENDY Fan documented in this encounterSalem Memorial District HospitalPqcfnorifx77-11-6632 History of Present illness Narrative* Nissa Matt, [...] nursing note reviewed. Exam conducted with a principal technical specialist present. Vitals: Estimated body mass index is 33.35 kg/m as calculated from the following: Height as of 21: 5' 5 . Weight as of this encounter: 200 lb 6.4 oz. BP: 130/72 Patient's last menstrual period was 10/04/2024 (approximate). ASSESSMENT & PLAN ICD-10-CM 1. Second trimester ([facility]) Z34.92 Urine dip 2. 27 weeks gestation of ([facility]) Z3A.27 Urine dip Patient presents today for a routine obstetrics appointment. Patient is currently 27w2d with a Estimated Date of Delivery: 07/01/25. Patient brought in FSBS logs for review and patient still desires to hold off on [facility] referral at this time, referral was previously sent on 03/24/25 and when c ontacted by [facility] patient will inform them that she will postpone scheduling at this time. Patient toreturn to clinic in 2 weeks for routine OB appointment. Documented by Nissa Matt LPN on behalf of: Jaspreet Adams DO documented in this encounterSalem Memorial District HospitalLmrtcfeaqj54-51-0830 History of Present illness Narrative* Rahel Pendleton [...] nursing note reviewed. Exam conducted with a principal technical specialist present. Vitals: Estimated body mass index is 31.62 kg/m as calculated from the following: Height as of 21: 5' 5 . Weight as of this encounter: 190 lb. BP: 128/78 Patient's last menstrual period was 10/04/2024 (approximate). ASSESSMENT & PLAN ICD-10-CM 1. Second trimester ([facility]) Z34.92 POCT urinalysis dipstick manually resulted 2. 23 weeks gestation of ([facility]) Z3A.23 3. Diabetes mellitus screening Z13.1 CBC Glucose tolerance, 1 hour CBC Glucose tolerance, 1 hour 4. Well woman exam with routine gynecological exam Z01.419 Pap Smear Return OB/Annual Exam: Patient presents today for a annual exam/routine obstetrics appointment. Patient is currently 67p6xlmurvvmo. Patient states she is doing well but [...] of: Jaspreet Adams DO documented in this encounterSalem Memorial District HospitalDzjbrguewv61-27-0104 History of Present illness Narrative* Willy Avila [...] nursing note reviewed. Exam conducted with a principal technical specialist present. Vitals: Estimated body mass index [...] of: Willy Avila NP documented in this encounterSalem Memorial District HospitalQojcmraxld39-01-9898 History of Present illness Narrative* Kalyn Jacob [...] by: Kalyn Jacob MA documented in this encounterSalem Memorial District HospitalDzrdhpoayv89-73-9899 History of Present illness Narrative* Nissa Matt [...] nursing note reviewed. Exam conducted with a principal technical specialist present. Vitals: Estimated body mass index [...] ultrasound. [facility]. Documented by Nissa Matt LPN on behalf of: Jaspreet Adams DO documented in this encounterNOMS HealthcareEvaluation noteNo assessment information availableSumma Health [facility]tr Work Phone: Evaluation note* Diagnosis Hyperemesis [...] in this encounter [facility] HealthcareEvaluation note* Diagnosis 39 weeks gestation of ([facility]) Third trimester ([facility]) state, incidental documented in this encounter [facility] HealthcareInstructionsNot on filedocumented in this encounterCleveland Clinic Summary Purpose Family History Relationship Condition Age [...] section and content) DATE CREATED AUTHOR 06/25/2019 [facility] DATE CREATED AUTHOR AUTHOR'S ORGANIZ ATION 06/07/2022 [facility] DATE CREATED AUTHOR AUTHOR'S ORGANIZ ATION 01/09/2025 [facility] DATE CREATED AUTHOR AUTHOR'S ORGANIZ ATION 06/27/2025 [facility] EPIC Care Teams [...] (unrecogniz ed section and content) ReasonCommentsFollow-upReasonCommentsAmenorrheaReasonCommentsRoutine VisitReasonCommentsRoutine Ovihd63e 6d FOR RECORDS PERTAINING TO PATIENTS WHO [...] BE BASED ON THE PRIMARY CLINICAL RECORDS. [facility]. provides no warranty or guarantee of the accuracy or completeness of information in this document.
--- OUTSIDE RECORDS SUMMARY | 2025-07-01 22:14 | XMS_ITS | Clinical Summary ---
Author Organization [facility] Healthcare Address [address] [place] [address] Care Team Providers Care Audio Video Technician Name Role Phone Unavailable Primary Care Provider Unavailabl e Allergies Active AllergyReactionsCriticalityNoted DateCommentsPenicillin GUnknown 06/02/20259972Wghpasulluw35/28/2025 Other Reaction(s): Unknown Medications MedicationSigDispense QuantityRefillsLast FilledStart [...] a total of 4times daily. 1 kit Discontinued Encounters DateTypeDepartmentCare NgseJvjeaothghm70/03/2025linisync Result Encounter NOMS External Department Unsolicited Tyrell Adams, DO 06/30/2025linisync Result Encounter NOMS External Department Unsolicited Tyrell Adams, DO 06/26/2025 9:20 AM EDTRoutine NOMS Kadie [address] [place] [address] Deyanira Martinez PA 39 weeks gestation of ([facility]); Third trimester ([facility])06/26/2025amboo flowsheet NOMS Kadie [address] [place] [address] Deyanira Martinez PA 06/24/2025Patient Outreach NOMS [address] [place] [address] Deyanira Phillips LPN 06/23/2025linisync Result Encounter NOMS External Department Unsolicited Tyrell Adams, DO 06/19/2025 9:40 AM EDTRoutine NOMS Kadie [address] [place] [place] [place] [address] Deyanira Martinez PA Third trimester ([facility]); 38 weeks gestation of ([facility])06/19/2025amb flowsheet NOMS Kadie [address] [place] [address] Deyanira Martinez PA 06/12/2025 9:40 AM EDTRoutine NOMS Kadie [address] [place] [address] Tyrell Adams, Third trimester ([facility]); 37 weeks gestation of ([facility])06/12/2025amboo flowsheet NOMS Kadie [address] [place] [address] Tyrell Adams, DO 06/05/2025Telephone NOMS [facility] [address] [place] [address] Britt Christensen MA 06/02/2025 11:20 AM EDTRoutine NOMS [facility] [address] [place] [address] Nabila Avila NP 35 weeks gestation of ([facility]); Third trimester ([facility])5Clinisync Result Encounter NOMS External Department Unsolicited Tyrell Adams, DO 5Abstract NOMS [facility] [address] [place] [address] Deyanira Phillips LPN 05/26/2025Patient Outreach NOMS [facility] [address] [place] [address] Deyanira Phillips LPN 5Clinisync Result Encounter NOMS External Department Unsolicited Tyrell Adams, DO 5Abstract NOM[facility] [address] [place] [address] Tyrell Adams, DO 5Clinisync Result Encounter NOMS External Department Unsolicited Tyrell Adams, DO 5Clinisync Result Encounter NOMS External Department Unsolicited Tyrell Adams, DO 05/15/2025 9:50 AM EDTRoutine NOMS [facility] [address] [place] [address] Deyanira Martinez, PA 33 weeks gestation of ([facility]); Third trimester ([facility]); Gestational diabetes mellitus (GDM), antepartum, gestational diabetes method of control unspecified([facility])5Bamboo flowsheet N[facility] [address] [place] [address] Deyanira Martinez PA 04/30/2025 3:00 PM EDTRoutine NOMS Kadie Zamora [facility] [place] [id number] Tyrell Adams DO 31 weeks gestation of ([facility]); Third trimester ([facility]); Gestational diabetes mellitus (GDM), antepartum, gestational diabetes method of control unspecified([facility])04/30/2025 2:30 PM EDTAncillary Procedure NOMS Kadie VARGAS [address] [place] [address] Size of fetus inconsistent with dates in second trimester ([facility])04/17/2025 9:50 AM EDTRoutine NOMS Kadie Zamora [facility] [place] [address] Deyanira Martinez PA Size of fetus inconsistent with dates in second trimester ([facility]) (Primary Dx); Third trimester ([facility]); 29 weeks gestation of ([facility])04/17/2025amboo flowsheet NOMS Kadie Zamora [facility] [place] [address] Deyanira Martinez PA 04/03/2025 10:40 AM EDTRoutine NOMS Kadie Zamora [facility] [place] [address] Tyrell Adams DO Second trimester ([facility]); 27 weeks gestation of ([facility])04/03/2025amboo flowsheet NOMS Kadie VARGAS [address] [place] [place] [address] Tyrell Adams DO from Last 3 Months Social History Tobacco UseTypesPacks/DayYears UsedDateSmoking Tobacco: Never AssessedPHQ-2 AnswerDate RecordedPatient Health Questionnaire-2 Psjds241 Estimated Date of PvxuocaeHohcqmbuRkw01/04/2025Based on UltrasoundSex and Gender InformationValueDate RecordedSex Assigned at VjpweGjtyzh44/27/2025 5:56 PM EDT Legal FcdPcmmkv27/15/2023 7:00 PM EDTGender UinaqvuuTbbknv94/27/2025 5:56 PM EDT Sexual OrientationNot on file Last Filed Vital Signs Vital SignReadingTime TakenCommentsBlood Lmbfuysy757/8010 9:45 AM EDT Pulse--Temperature--Respiratory Rate--Oxygen Saturation--Inhaled Oxygen Concentration--Bniyjj488 kg (233 lb 12.8 oz)06/26/2025 9:45 AM IAREmvqbx444.1 cm (5' 5 )12/01/2020 12:00 PM EDTBody Mass Index38.9112/01/2020 12:00 PM EDT Plan of Treatment DateTypeDepartmentCare Team (Latest Contact Info)Odyleydnmfk40/16/2025 10:30 AM ESTPostpartum Visit NOMS Kadie MORENOGYCarlos Alberto [address] [place] [address] Deyanira Martinez PA [address] [place] [address] Procedures Procedure NamePriorityDate/TimeAssociated DiagnosisCommentsUS OB BPP W NON-IPSQLV9306/30/2025 11:30 AM EST OFSHPGAGFplckuu48/03/2025 10:40 AM EST POCT URINALYSIS HDEPFQFGRgudehs81/30/2025 9:55 AM EDT 39 weeks gestation of ([facility]) Third trimester ([facility]) US OB BPP W NON-AJMICU8106/23/2025 10:45 AM EDT POCT URINALYSIS EDCXZXIJKpeneit13/23/2025 10:26 AM EDT 38 weeks gestation of ([facility]) POCT URINALYSIS KGXOWHXGAszfhdq67/16/2025 9:56 AM EDT Third trimester ([facility]) POCT URINALYSIS AVOYQVBVVyqursm33/06/2025 11:53 AM EDT 35 weeks gestation of ([facility]) US OB BPP W NON-YPMBSG2806/02/2025 10:52 AM EDT US OB BPP W NON-PMCIRB5705/26/2025 11:39 AM EDT US AMNIOTIC FLUID JJOBDC8905/20/2025 11:33 AM EDT MHPT QBCTJMHBUIFeuvwtk91/22/2025 11:00 AM EDT CCF TFFNEcygqgd04/22/2025 11:00 AM EDT SRMCOH PROTHROMBIN TIME INR W/O GANEMhcaqje36/22/2025 11:00 AM EDT CCF LFYIjtnruw77/22/2025 11:00 AM EDT C[facility] YKCNbnawhh00/22/2025 11:00 AM EDT ALL URIC QWILWnurebx56/22/2025 11:00 AM EDT TBH RDVLNTPOZVVcjtmcc06/22/2025 11:00 AM EDT ALL EPJXrabvss76/22/2025 11:00 AM EDT ALL CBC WITH AUTO EJYXCauojge79/22/2025 11:00 AM EDT US OB BPP W NON-VQBQTA1605/19/2025 10:54 AM EDT TBH URINE T PROTEIN CREAT AJOHATviyegw76/22/2025 10:50 AM EDT POCT URINALYSIS HYHBFQMEYouobuq73/18/2025 10:08 AM EDT 33 weeks gestation of ([facility]) Third trimester ([facility]) POCT URINALYSIS WJOFHJCCYczgddw92/03/2025 3:11 PM EDT 31 weeks gestation of ([facility]) Third trimester ([facility]) US OB FOLLOW UP TRANSABDOMINAL EGBFGIFCJnblmae70/03/2025 2:49 PM EDT Size of fetus inconsistent with dates in second trimester ([facility]) POCT URINALYSIS ZCFMAMXYCaxfjyi34/21/2025 10:45 AM EDT Third trimester ([facility]) 29 weeks gestation of ([facility]) POCT URINALYSIS GTAJLJMXRfnjrxn36/07/2025 10:59 AM EDT Second trimester ([facility]) 27 weeks gestation of ([facility]) CULTURE, URINE, DFLCVQAOhftgpm48/04/2025 9:28 AM EDT Missed menses from Last 3 Months Results * US OB BPP W NON-STRESS (06/30/2025 11:30 AM EST) Only the most recent of5 resultswithin the time period is included. Anatomical RegionLateralityModalityOtherSpecimen (Source)Anatomical Location / LateralityCollection Method / VolumeCollection TimeReceived Time06/30/2025 11:30 AM EST Narrative 06/30/2025 11:33 AM EST The [facility] ?[address] ? [place] [address] ? Ultrasound Report ? Signed ? Patient: CHENTE GONZALEZ ?MR#: [id number] ?? : 1995 ?Acct:[id number] ?? Age/Sex: 29 / F ?ADM Date: 06/30/25 ?? Loc: [facility] ??250-1 ? Attending Dr: Tyrell Adams D.O. ? Ordering Physician: Tyrell Aadms D.O. ?? Date of Service: 06/30/25 ?? Procedure(s): US OB BPP w non-stress ?? Accession Number(s): [id number] ? cc: Angie,Tyrell D.O.; Physician,Non-Staff M.D. ? [facility] ? [address] ? [place] [address] ? Patient Name: ?? CHENTE GONZALEZ ? MRN: [facility]:[id number] ? date: 1995 ?Sex: F ?? Assigned Patient Location: [facility] ?? Current Patient Location: [facility] ?? Accession/Order Number: [id number] ?? Exam Date: 06/30/2025 ??10:12 ?Report Date: [...] Dictation Location: RADIO-PC-02 ? Electronically authenticated by: [id number] ??Y ?? Date: 06/30/2025 ??11:30 ? Dictated By: ?Rahel Mae M.D. ? Signed By: ?06/30/25 1133 ? DD/ 1130 ? TD/TT: ? Executive Director Of Marketing: Procedure Note Radiology, Radiologist, MD - 06/30/[address] [address] Ultrasound Report Signed Patient: CHENTE GONZALEZ [facility]#: [id number] : 1995Acct:[id number] Age/Sex: 29 / FADM Date: 06/30/25 Loc: [facility] 250-[address]: Tyrell Adams D.O. Ordering Physician: Tyrell Adams D.O. Date of Service: 06/30/25 Procedure(s): US OB BPP w non-stress Accession Number(s): [id number] cc: Tyrell Adams D.O.; Physician,Non-Staff [place] [address] Patient Name: CHENTE GONZALEZ MRN: [facility]:[id number] date: 1995 Sex: F Assigned Patient Location: [facility] Current Patient Location: [facility] Accession/Order Number: [id number] Exam Date: 06/30/2025 10:12 Report Date: 06/30/2025 [...] Mae M.D. 06/30/2025 11:30 AM Dictation Location: [place] [address] Electronically authenticated by: [id number] Y Date: 1:30 Dictated By: Rahel Mae M.D. Signed By:06/30/25 1133 DD/ 1130 TD/TT: Executive Director Of Marketing: Authorizing ProviderResult TypeResult StatusCorey Angie DOCLINISYNC IMAGINGFinal Result * AMNISURE (06/30/2025 10:40 AM EST)ComponentValueRef RangeTest MethodAnalysis TimePerformed AtPathologist SignatureTBH AMNISURENEGATIVENEGATIVETBHSpecimen (Source)Anatomical Location / LateralityCollection Method / VolumeCollection TimeReceived Time06/30/2025 10:40 AM EST06/30/2025 10:56 AM EST Narrative CLINISYNC - 06/30/2025 11:12 AM EST Authorizing ProviderResult TypeResult StatusCorenish Adams DOLAB BLOOD ORDERABLES Final ResultPerforming OrganizationAddressCity/State/ZIP CodePhone Number CLINISYNC TBH * (ABNORMAL) POCT urinalysis dipstick manually resulted [...] / Laterality Collection Method / VolumeCollection TimeReceived ZvobBwshb95/30/2025 9:55 AM EDT Narrative Authorizing ProviderResult TypeResult Valentin Martinez PAPOINT OF CARE TEST ENTER/EDIT ORDERABLESFinal Result * US AMNIOTIC FLUID VOLUME (05/20/2025 11:33 AM EDT)Anatomical RegionLaterality ModalityRadiographic ImagingSpecimen (Source)Anatomical Location / Laterality Collection Method / VolumeCollection TimeReceived Time05/20/2025 11:33 AM EDT Narrative 05/20/2025 11:36 AM EDT [facility] ?[address] ? [place] [address] ? Ultrasound Report ? Signed ? Patient: ALLEY,CHENTE N ?MR#: [id number] ?? : 1995 ?Acct:[id number] ?? Age/Sex: 29 / F ?ADM Date: 05/20/25 ?? Loc: [facility] ??250-1 ? Attending Dr: Tyrell Adams D.O. ? Ordering Physician: Tyrell Adams D.O. ?? Date of Service: 05/20/25 ?? Procedure(s): US OB amniotic fluid vol ?? Accession Number(s): [id number] ? cc: Tyrell Adams D.O.; Physician,Non-Staff M.D. ? [facility] ? [address] ? [place] [address] ? Patient Name: ?? CHENTE GONZALEZ ? MRN: [facility]:[id number] ? date: 1995 ?Sex: F ?? Assigned Patient Location: [facility] ?? Current Patient Location: US ?? Accession/Order Number: [id number] ?? Exam Date: 05/20/2025 ??11:10 ?Report Date: [...] Dictation Location: RADIO-PC-30 ? Electronically authenticated by: [id number] ??Y ?? Date: 05/20/2025 ??11:33 ? Dictated By: ?Rahel Mae M.D. ? Signed By: ?05/20/25 1136 ? DD/ ? TD/TT: ? Executive Director Of Marketing: Procedure Note Radiology, Radiologist, - 05/20/2025 [place] [address] Ultrasound Report Signed Patient: CHENTE GONZALEZ NMR#: [id number] : 1995Acct:[id number] Age/Sex: 29 / FADM Date: 05/20/25 Loc: [facility] 250-[address]: Tyrell Adams D.O. Ordering Physician: Tyrell Adams D.O. Date of Service: 05/20/25 Procedure(s): US OB amniotic fluid vol Accession Number(s): [id number] cc: Tyrell Adams D.O.; Physician,Non-Staff Alejandra The [place] [id number] Patient Name: CHENTE GONZALEZ MRN: [facility]:[id number] date: 1995 Sex: F Assigned Patient Location: [facility] Current Patient Location: US Accession/Order Number: [id number] Exam Date: 05/20/2025 11:10 Report Date: 05/20/2025 11:33 At the request of: TYRELL ADAMS DO Procedure: US OB amniotic fluid vol ULTRASOUND OB AMNIOTIC FLUID VOLUME CLINICAL DATA: Oligohydramnios COMPARISON: [facility] 05/17/2025 There is a single live intrauterine [...] Mae M.D. 05/20/2025 11:33 AM Dictation Location: [place] [address] Electronically authenticated by: [id number] Y Date: 1:33 Dictated By: Rahel Mae M.D. Signed By:05/20/25 1136 DD/ 1133 TD/TT: Executive Director Of Marketing: Authorizing ProviderResult TypeResult StatusCorey Angie DOIMG XR PROCEDURESFinal Result * TBH CREATININE (05/19/2025 11:00 AM EDT)ComponentValueRef RangeTest Method Analysis TimePerformed AtPathologist SignatureCREATININE0.650.55 - 1.02 mg/dL TBHTBH EGFR-AF QATARI>60>=60 mL/min/1.73m 2TBHTBH EGFR-NON AF QATARI>60 >=60 mL/min/1.73m 2TBHSpecimen (Source)Anatomical Location / Laterality Collection Method / VolumeCollection TimeReceived Time05/19/2025 11:00 AM EDT 05/19/2025 11:06 AM EDT Narrative CLINISYAR - 05/19/2025 11:31 AM EDT Authorizing ProviderResult TypeResult StatusCorey Angie DOCLINISYNCFinal Result Performing OrganizationAddressCity/State/ZIP CodePhone Number [facility] * SRMCOH PROTHROMBIN TIME INR W/O [...] Angie DOCLINISYNCFinal Result Performing OrganizationAddressCity/State/ZIP CodePhone Number [facility] * (ABNORMAL) MHPT FIBRINOGEN (05/19/2025 11:00 AM EDT)ComponentValueRef Range Test MethodAnalysis TimePerformed AtPathologist EwtzqppjzTYKXABAEVT444(H)200 - 400 mg/dLTBHSpecimen (Source)Anatomical Location / LateralityCollection Method / VolumeCollection TimeReceived Time05/19/2025 11:00 AM EDT05/19/2025 11:06 AM EDT Narrative CLINISYNC - 05/19/2025 11:43 AM EDT Authorizing ProviderResult TypeResult StatusCorey Angie DOCLINISYNCFinal Result Performing OrganizationAddressCity/State/ZIP CodePhone Number [facility] * C[facility] AST (05/19/2025 11:00 AM EDT)ComponentValueRef RangeTest MethodAnalysis TimePerformed AtPathologist SignatureASPARTATE AMINO CRGHVFXTOQO9214 - 37 U/L TBHSpecimen (Source)Anatomical Location / LateralityCollection Method / Volume Collection TimeReceived Time05/19/2025 11:00 AM EDT05/19/2025 11:06 AM EDT [facility]ative [facility] 05/19/2025 11:31 AM EDT Authorizing ProviderResult TypeResult StatusCorey Angie DOCLINISYNCFinal Result Performing OrganizationAdd[facility]/State/ZIP CodePhone Number [facility] * [facility] APTT (05/19/2025 11:00 AM EDT)ComponentValueRef RangeTest MethodAnalysis TimePerformed AtPathologist SignaturePARTIAL THROMBOPLASTIN TIME24.822.3 - 36.2 secTBHSpecimen (Source)Anatomical Location / LateralityCollection Method / VolumeCollection TimeReceived Time05/19/2025 11:00 AM EDT05/19/2025 11:06 AM EDT Narrative [facility] - 05/19/2025 11:43 AM EDT Authorizing ProviderResult TypeResult StatusCorey Angie DOCLINISYNCFinal Result Performing OrganizationAddEinstein [facility]aty/State/ZIP CodePhone Number [facility] * C[facility] ALT (05/19/2025 11:00 AM EDT)ComponentValueRef RangeTest MethodAnalysis TimePerformed AtPathologist SignatureALANINE RDSNDBVLBBFAMKGL2729 - 59 U/LTBH Specimen (Source)Anatomical Location / LateralityCollection Method / Volume Collection TimeReceived Time05/19/2025 11:00 AM EDT05/19/2025 11:06 AM EDT Narrative CLINISYNC - 05/19/2025 11:31 AM EDT Authorizing ProviderResult TypeResult StatusCorey Angie DOCLINISYNCFinal Result Performing OrganizationAddressCity/State/ZIP CodePhone Number [facility] * ALL URIC ACID (05/19/2025 11:00 AM EDT)ComponentValueRef RangeTest Method Analysis TimePerformed AtPathologist SignatureURIC ACID4.42.6 - 6.0 mg/dLTBH Specimen (Source)Anatomical Location / LateralityCollection Method / Volume Collection TimeReceived Time05/19/2025 11:00 AM EDT05/19/2025 11:06 AM EDT Narrative CLINISYNC - 05/19/2025 11:31 AM EDT Authorizing ProviderResult TypeResult StatusCorey Angie DOCLINISYNCFinal Result Performing OrganizationAddressCity/State/ZIP CodePhone Number [facility] * (ABNORMAL) ALL CBC WITH AUTO DIFF (05/19/2025 11:00 AM EDT)ComponentValueRef RangeTest MethodAnalysis TimePerformed AtPathologist SignatureTBH WBC10.54.0 - 11.0 10 3/uLTBHTBH RBC4.09(L)4.20 - 5.40 10 6/uLTBHTBH HGB12.712.0 - 16.0 g/dLTBHTBH HCT35.6(L)36.0 - 48.0 %TBHTBH MCV87.081.0 - 99.0 fLTBHTBH MCH31.1 26.7 - 34.0 pgTBHTBH MCHC35.7(H)29.9 - 35.2 g/dLTBHTBH RDW11.911.0 - 15.0 %TBH TBH XGR381928 - 450 10 3/uLTBHTBH MPV9.79.5 - 13.5 [...] Time05/19/2025 11:00 AM EDT05/19/2025 11:06 AM EDT [facility] - 05/19/2025 11:15 AM EDT Authorizing ProviderResult TypeResult StatusCorey Angie DOCLINISYNCFinal Result Performing OrganizationAddressCity/State/ZIP CodePhone Number [facility] * ALL BUN (05/19/2025 11:00 AM EDT)ComponentValueRef RangeTest MethodAnalysis TimePerformed AtPathologist SignatureBLOOD UREA NITROGEN7.07.0 - 18.0 mg/dLTBH Specimen (Source)Anatomical Location / LateralityCollection Method / Volume Collection TimeReceived Time05/19/2025 11:00 AM EDT05/19/2025 11:06 AM EDT [facility] - 05/19/2025 11:31 AM EDT Authorizing ProviderResult TypeResult StatusCorey Angie DOCLINISYNCFinal Result Performing OrganizationAddEinstein [facility]/State/ZIP CodePhone Number [facility] * (ABNORMAL) TBH URINE T PROTEIN CREAT RATIO (05/19/2025 10:50 AM EDT)Component ValueRef RangeTest MethodAnalysis TimePerformed AtPathologist SignatureTOTAL PROTEIN URINE VKJSQJ16.9(H)<=11.9 mg/dLTBHCREATININE URINE EKLNQY63.1120.00 - 300.00 mg/dLTBHPROTEIN CREATININE RATIO URINE0.72TBHSpecimen (Source) Anatomical Location / LateralityCollection Method / VolumeCollection Time Received Time05/19/2025 10:50 AM EDT05/19/2025 11:06 AM EDT Narrative [facility] - 05/19/2025 11:55 AM EDT Authorizing ProviderResult TypeResult StatusCorey Angie DOCLINISYNCFinal Result Performing OrganizationAddressCity/State/ZIP CodePhone Number [facility] * US OB follow up transabdominal [...] BY: Ramana Lechuga MD Authorizing ProviderResult TypeResult StatusPaul A. [facility] US PROCEDURES Final Result * Urine culture (03/31/2025 9:28 AM EDT)Specimen (Source)Anatomical Location / LateralityCollection Method / VolumeCollection TimeReceived TimeUrineUrine specimen obtained by clean catch procedure / Unknown Narrative Authorizing ProviderResult TypeResult StatusCorenish MONTERROSO MICROBIOLOGY - GENERAL ORDERABLESFinal ResultPerforming OrganizationAddressCity/State/ZIP Code Phone Number EXTERNAL LAB from Last 3 Months Insurance
[2025-07-01 23:44] VITALS: BP 138/84; PULSE 91
[2025-07-01] MEDS: OXYTOCIN/0.9 % SODIUM CHLORIDE 10 UNITS/500 ML PLAST..BAG 6 UNIT IV (23:45)
[2025-07-01] MEDS: 0.9 % SODIUM CHLORIDE 1,000 ML 125 ML IV (23:45)
[2025-07-01 23:52] LABS: Hematocrit 35.3 % (36.0-48.0); Hemoglobin 12.2 g/dL (12.0-16.0); Mean Corpuscular HGB Conc 34.6 g/dL (29.9-35.2); Mean Corpuscular Hemoglobin 30.3 pg (26.7-34.0); Mean Corpuscular Volume 87.6 fL (81.0-99.0); Platelet Count 318 10^3/uL (150-450); Red Blood Count 4.03 10^6/uL (4.20-5.40); White Blood Count 9.1 10^3/uL (4.0-11.0)
[2025-07-02] VITALS (57 sets, daily range): BP systolic 119–181; BP diastolic 59–104; PULSE 61–118; TEMP 35.9–37.4
[2025-07-02 00:04] LABS: Cannabinoid Screen Urine NEGATIVE (NEGATIVE); Methamphetamines Screen Urine NEGATIVE (NEGATIVE); Tricyclic Antidepressant Urine NEGATIVE (NEGATIVE)
[2025-07-02] MEDS: VANCOMYCIN HCL 1,000 MG in 0.9 % SODIUM CHLORIDE 250 ML 250 MG IV ×2 (00:30→12:33)
[2025-07-02] MEDS: LABETALOL HCL 100 MG TABLET 200 MG PO ×4 (01:30→22:47)
[2025-07-02] MEDS: 0.9 % SODIUM CHLORIDE 1,000 ML 125 ML IV (09:00)
[2025-07-02] MEDS: OXYTOCIN/0.9 % SODIUM CHLORIDE 10 UNITS/500 ML PLAST..BAG 60 UNIT IV (11:27)
[2025-07-02] MEDS: ROPIVACAINE HCL/PF 400 MG/200 ML PREMIX 6 MG EPIDURAL (14:12)
[2025-07-02] MEDS: OXYTOCIN/0.9 % SODIUM CHLORIDE 20 UNITS/1,000 ML PLAST..BAG 125 UNIT IV (15:42)
--- NOTE | 2025-07-02 15:53 | PM.OBPRCVD ---
Procedure Intrapartal events: None Induction method: per pitocin protocol Delivery augmentation: rupture of membranes and pitocin Delivery monitor: external FHT and external uterine Route of delivery: Episiotomy Description: none L&D Laceration Description: perineal - 2nd degree Delivery repair: Vicryl Estimated blood loss (mL): 250 Anesthesia type: Epidural Disposition: floor Infant Delivery date: 07/02/25 Gender: female presentation: vertex Placental delivery description: Spontaneous cord description: 3 Vessels
[2025-07-02] MEDS: GLYCERIN/WITCH HAZEL PADS 1 PAD TOPICAL (21:54)
[2025-07-02] MEDS: BENZOCAINE/MENTHOL 85 GRAM SPRAY BOTTLE 1 APPLIC TOPICAL (21:55)
[2025-07-02] MEDS: IBUPROFEN 600 MG TABLET PO (22:47)
[2025-07-03 00:38] VITALS: BP 133/70; PULSE 104
[2025-07-03 06:18] LABS: Hematocrit 31.2 % (36.0-48.0); Hemoglobin 10.8 g/dL (12.0-16.0); Immature Granulocytes Abs Auto 0.07 10^3/uL (0.00-0.03); Immature Granulocytes Pct Auto 0.6 % (0.0-0.5); Lymphocytes Absolute Auto 1.9 10^3/uL (1.2-3.8); Mean Corpuscular HGB Conc 34.6 g/dL (29.9-35.2); Mean Corpuscular Hemoglobin 30.6 pg (26.7-34.0); Mean Corpuscular Volume 88.4 fL (81.0-99.0); Platelet Count 261 10^3/uL (150-450); Red Blood Count 3.53 10^6/uL (4.20-5.40); White Blood Count 11.5 10^3/uL (4.0-11.0)
[2025-07-03 06:20] VITALS: BP 141/74; PULSE 81
[2025-07-03] MEDS: LABETALOL HCL 100 MG TABLET 200 MG PO ×3 (06:21→23:26)
[2025-07-03] MEDS: IBUPROFEN 600 MG TABLET PO ×2 (07:21→16:23)
--- NOTE | 2025-07-03 08:06 | PM.OBPN ---
OB - PN: Subj Subjective Patient comments: no complaints and pain well controlled status: doing well Exam Constitutional Vital Signs, click to edit/add: Last Vital Signs Temp 99.4 F 07/02/25 20:28 Pulse 81 07/03/25 06:20 Resp 16 07/03/25 01:05 BP 141/74 07/03/25 06:20 O2 Del Method Room Air 07/03/25 01:05 Documenting provider has reviewed patient's vital signs: yes Common normals: no apparent distress Respiratory Common normals: normal respiratory effort and clear to auscultation bilaterally Cardio Common normals: regular rate and regular rhythm GI Common normals: Normal to inspection, nondistended, normoactive bowel sounds present Extremity Common normals: no clubbing, cyanosis or edema and no calf tenderness Results Labs Labs: Short CBC 07/03/25 Range/Units 06:10 WBC 11.5 H (4.0-11.0) 10^3/uL Hgb 10.8 L (12.0-16.0) g/dL Hct 31.2 L (36.0-48.0) % Plt Count 261 (150-450) 10^3/uL OB - PN: A/P Plan - Vaginal Delivery day: 1 Plan: routine care Time Spent with Patient Time: Total time spent is greater than 50% in coordination of care (as documented) at patient's floor/unit and/or counseling patient: Total time spent with greater than 50% in coordination of care (as documented) at patient's floor/unit and/or counseling patient: less than 15 minutes
[2025-07-03] MEDS: DOCUSATE SODIUM 100 MG CAPSULE PO ×2 (09:04→23:26)
[2025-07-03 09:11] VITALS: BP 141/76; PULSE 95; TEMP 37.1
[2025-07-03 18:36] VITALS: BP 142/76; PULSE 94
[2025-07-03 23:26] VITALS: BP 155/78; PULSE 98
[2025-07-04] VITALS: TEMP 36.9
[2025-07-04 06:53] VITALS: BP 186/84; PULSE 100
[2025-07-04] MEDS: LABETALOL HCL 100 MG TABLET 200 MG PO (06:53)
[2025-07-04 08:25] VITALS: BP 136/63; PULSE 85; TEMP 36.7
[2025-07-04] MEDS: IBUPROFEN 600 MG TABLET PO ×2 (08:31)
[2025-07-04] MEDS: DOCUSATE SODIUM 100 MG CAPSULE PO (08:32)
[2025-07-04 08:35] VITALS: BP 136/63; PULSE 85
[2025-07-04] MEDS: RHO(D) IMMUNE GLOBULIN 1,500 UNIT SYRINGE 1500 UNIT IM (08:38)
--- NOTE | 2025-07-04 08:51 | P.OBPN_ITS ---
OB - PN: Subj Subjective Patient comments: no complaints and pain well controlled Bradford status: doing well Exam Constitutional Vital Signs, click to edit/add: Last Vital Signs Temp 98.5 F 07/04/25 00:00 Pulse 85 07/04/25 08:35 Resp 17 07/04/25 00:00 BP 136/63 07/04/25 08:35 O2 Del Method Room Air 07/04/25 00:00 Documenting provider has reviewed patient's vital signs: yes Common normals: no apparent distress Respiratory Common normals: normal respiratory effort and clear to auscultation bilaterally Cardio Common normals: regular rate and regular rhythm GI Common normals: Normal to inspection, nondistended, normoactive bowel sounds present Extremity Common normals: no clubbing, cyanosis or edema and no calf tenderness OB - PN: A/P Plan - Vaginal Delivery day: 2 Plan: routine care, discharge home and follow up 6 weeks Time Spent with Patient Time: Total time spent is greater than 50% in coordination of care (as documented) at patient's floor/unit and/or counseling patient: Total time spent with greater than 50% in coordination of care (as documented) at patient's floor/unit and/or counseling patient: less than 15 minutes
== END 2025-07-04 13:35 | disposition home or self-care (01) | DRG 560 ==
PROVIDERS: Admitting Provider Obstetrics & Gynecology; Visit Provider Obstetrics & Gynecology
DX: O24.429 Gestational diabetes mellitus in childbirth, unspecified control (principal); O70.1 Second degree perineal laceration during delivery; Z3A.40 40 weeks gestation of pregnancy; Z37.0 Single live birth; O26.893 Other specified pregnancy related conditions, third trimester; Z67.11 Type A blood, Rh negative; Z86.16 Personal history of COVID-19
CPT/HCPCS: 36415; 59050; 59410; 76818; 80307; 84112; 85025; 85027; 85461; 86850; 86900; 86901; J0665; J2300; J2791; J2795; J3373

== ENCOUNTER 2025-07-07 08:40 | Outpatient (OUT) | payer OTHER, SELFPAY ==
--- OUTSIDE RECORDS SUMMARY | 2025-06-26 08:20 | XMS_ITS | Encounter Summary ---
Author Organization [facility] Address [address] [place] [address] Care Team Providers Care Skin Care Technician Name Role Phone Unavailable Primary Care Provider Unavailabl e Reason for Visit * ReasonCommentsRoutine Visit Encounter Details DateTypeDepartmentCare Team (Latest Contact Info)Qqvspyzfrmz30/30/2025 9:20 AM EDTRoutine [facility] [address] [place] [phone] Deyanira Martinez PA [address] [place] [address] 39 weeks gestation of ([facility]); Third trimester ([facility]) Social History Tobacco UseTypesPacks/DayYears UsedDateSmoking Tobacco: Never AssessedPHQ-2 AnswerDate RecordedPatient Health Questionnaire-2 Afqyh574 Estimated Date of YsgntcfsLujpxjewEbo33/04/2025ased on UltrasoundSex and Gender InformationValueDate RecordedSex Assigned at OtoquDkygcf98/27/2025 5:56 PM EDT Legal GnkSsdzzm61/15/2023 7:00 PM EDTGender XzcwbvooYafadb42/27/2025 5:56 PM EDT Sexual OrientationNot on filedocumented as of this encounter Last Filed Vital Signs Vital SignReadingTime TakenCommentsBlood Edjgqzln497/801 9:45 AM EDT Pulse--Temperature--Respiratory Rate--Oxygen Saturation--Inhaled Oxygen Concentration--Kykwjo246 kg (233 lb 12.8 oz)06/26/2025 9:45 AM EDTHeight--Body Mass Index38.9104/01/2021 12:00 PM EDTdocumented in this encounter Progress Notes * SENDY Fan - 06/26/2025 9:20 AM EDT Reason for Appointment: Patient ID: Chente Gonzalez is a 29 y.o. female who presents for Routine Visit Patient presents today for Return OB appointment. MEDICATIONS Current Outpatient Medications Medication Instructions Klor-Con 20 MEQ packet DISSOLVE 1 PACKET IN 4 OZ OF WATER OR OTHER BEVERAGE AND DRINK DAILY FOR 7 DAYS labetalol (Normodyne) 200 MG tablet 1 tablet, 2 times daily Multiple Vitamin (multivitamin) tablet 1 tablet, Daily [...] nursing note reviewed. Exam conducted with a geospatial information scientist present. Vitals: Estimated body mass index is 38.91 kg/m?? as calculated from the following: Height as of 21: 5' 5 . Weight as of this encounter: 233 lb 12.8 oz. BP: 130/80 Patient's last menstrual period was 10/04/2024 (approximate). Assessment/Plan ICD-10-CM 1. 39 weeks gestation of ([facility]) Z3A.39 POCT urinalysis dipstick manually resulted 2. Third trimester ([facility]) Z34.93 POCT urinalysis dipstick manually resulted Return OB: Patient presents today for a routine obstetrics appointment. Patient is currently 39w2d . Patient states she is doing well [...] week for routine OB appointment. Documented by Marybel Blair LPN on behalf of: SENDY Fan documented in this encounter Plan of Treatment DateTypeDepartmentCare Team (Latest Contact Info)Wsbzhynjzcw14/16/2025 10:30 AM ESTPostpartum Visit [facility] [address] [place] [address] Deyanira Martinez PA [address] [place] [address] documented as of this encounter Procedures Procedure NamePriorityDate/TimeAssociated DiagnosisCommentsPOCT URINALYSIS REWENEYTYrpwpcl92/30/2025 9:55 AM EDT 39 weeks gestation of ([facility]) Third trimester ([facility]) documented in this encounter Results * (ABNORMAL) POCT urinalysis dipstick manually resulted (06/26/2025 9:55 AM EDT) ComponentValueRef RangeTest MethodAnalysis TimePerformed AtPathologist SignatureColor, UAYellowClarity, UAClearGlucose, UANegativeNegative - 2000(110) ++++ mg/dLBilirubin, UANegativeNegative - 4(70) +++ mg/dLKetones, UA NegativeNegative - 160(16) ++++ mg/dLSpec Grav, UA1.0201 - 1.03Blood, UA PositiveNegative - 50 Derick/mcLpH, UA6.05 - 9Protein, UA3+Negative - 2000(20) ++++ mg/dLUrobilinogen, UA1.00.2 - 12 mg/dLLeukocytes, UAPositiveNegative - 500+++ Julio/mcLNitrite, UANegativeNegative - PositiveSpecimen (Source) Anatomical Location / LateralityCollection Method / VolumeCollection Time Received TsmaHroof65/30/2025 9:55 AM EDT Narrative Authorizing ProviderResult TypeResult StatusFauquier Health System TEST ENTER/EDIT ORDERABLESFinal Result documented in this encounter Visit Diagnoses Diagnosis 39 weeks gestation of ([facility]) Third trimester ([facility]) state, incidental documented in this encounter
--- OUTSIDE RECORDS SUMMARY | 2025-07-07 08:44 | XMS_ITS | Encounter Summary ---
Author Organization [facility] Address [address] [place] [address] Care Team Providers Care Drill Setup Operator Name Role Phone Unavailable Primary Care Provider Unavailabl e Encounter Details DateTypeDepartmentCare Team (Latest Contact Info)Sfoxwvonixm60/27/2025linisync Result Encounter [facility] External Department Unsolicited Tyrell Adams DO [address] [place] [address] Social History Tobacco UseTypesPacks/DayYears UsedDateSmoking Tobacco: Never AssessedPHQ-2 AnswerDate RecordedPatient Health Questionnaire-2 Ponar392 Estimated Date of GvzustkyTsgqvdyrItc82/04/2025Based on UltrasoundSex and Gender InformationValueDate RecordedSex Assigned at NqfdoGyuzam52/27/2025 5:56 PM EDT Legal KolDgezlb92/15/2023 7:00 PM EDTGender FqnanylqNhiihb27/27/2025 5:56 PM EDT Sexual OrientationNot on filedocumented as of this encounter Plan of Treatment DateTypeDepartmentCare Team (Latest Contact Info)Zptrxkwoapy01/16/2025 10:30 AM ESTPostpartum Visit [facility] [address] [facility] [address] [place] [address] Deyanira Martinez PA [address] [place] [address] documented as of this encounter Procedures Procedure NamePriorityDate/TimeAssociated DiagnosisCommentsUS OB BPP W NON-CWOPPJ1006/23/2025 10:45 AM EDT documented in this encounter Results * US OB BPP W NON-STRESS (06/23/2025 10:45 AM EDT)Anatomical Region LateralityModalityOtherSpecimen (Source)Anatomical Location / Laterality Collection Method / VolumeCollection TimeReceived Time06/23/2025 10:45 AM EDT Narrative 06/23/2025 10:48 AM EDT [facility] ?[address] ? [place], [facility] ? Ultrasound Report ? Signed ? Patient: CHERYL,CHENTE N ?MR#: [id number] ?? : 1995 ?Acct:[id number] ?? Age/Sex: 29 / F ?ADM Date: 06/23/25 ?? Loc: [facility] ??250-1 ? Attending Dr: Tyrell Adams D.O. ? Ordering Physician: Tyrell Adams D.O. ?? Date of Service: 06/23/25 ?? Procedure(s): US OB BPP w non-stress ?? Accession Number(s): [id number] ? cc: Tyrell Adams D.O.; Physician,Non-Staff M.D. ? [facility] ? [address] ? [place] [address] ? Patient Name: ?? CHENTE GONZALEZ ? MRN: [facility]:[id number] ? date: 1995 ?Sex: F ?? Assigned Patient Location: US ?? Current Patient Location: US ?? Accession/Order Number: [id number] ?? Exam Date: 06/23/2025 ??10:03 ?Report Date: 06/23/2025 ??10:45 ? At the request of: ?? TYRELL ??ANGIE ??DO ? Procedure: ??US OB BPP w non-stress ? BIOPHYSICAL PROFILE: ? CLINICAL INFORMATION: Gestational diabetes mellitus ? COMPARISON: 06/16/2025 ? There is a single live intrauterine gestation in cephalic presentation. ??The ?? reported gestational age is 38 weeks 6 days. ??The heart rate fbaczqeq018 ?? beats per minute. ? FINDINGS: ? [...] Dictation Location: RADIO-PC-02 ? Electronically authenticated by: [id number] ??Y ?? Date: 06/23/2025 ??10:45 ? Dictated By: ?Rahel Mae M.D. ? Signed By: ?10/27/25 1048 ? DD/ 1045 ? TD/TT: ? Network Developer: Procedure Note Radiology, Radiologist, MD - 06/23/2025 [place] [address] Ultrasound Report Signed Patient: CHENTE GONZALEZ NMR#: [id number] : 1995Acct:[id number] Age/Sex: Date: 06/23/25 Loc: [facility] 250-[address]: Tyrell Adams D.O. Ordering Physician: Tyrell Adams D.O. Date of Service: 06/23/25 Procedure(s): US OB BPP w non-stress Accession Number(s): [id number] cc: Tyrell Adams D.O.; Physician,Non-Staff M.Tony The [address] [address] Patient Name: CHENTE GONZALEZ MRN: [id number] date: 1995 Sex: F Assigned Patient Location: US Current Patient Location: US Accession/Order Number: [id number] Exam Date: 06/23/2025 10:03 Report Date: 06/23/2025 10:45 At the request of: TYRELL ADAMS DO Procedure: US OB BPP w non-stress BIOPHYSICAL PROFILE: CLINICAL INFORMATION: Gestational diabetes mellitus COMPARISON: 06/16/2025 There is a single live intrauterine gestation in cephalic presentation.The reported gestational age is 38 weeks 6 days. The heart heqtiqdfaglk298 beats per minute. FINDINGS: TONE: 1 or [...] Mae M.D. 06/23/2025 10:45 AM Dictation Location: [place] [address] Electronically authenticated by: [id number] Y Date: 0:45 Dictated By: Rahel Mae M.D. Signed By:06/23/25 1048 DD/ 1045 TD/TT: Network Developer: Authorizing ProviderResult TypeResult StatusCorey Angie DOCLINISYNC IMAGINGFinal Result documented in this encounter Visit Diagnoses Not on filedocumented in this encounter
--- OUTSIDE RECORDS SUMMARY | 2025-07-07 08:44 | XMS_ITS | Encounter Summary ---
Author Organization [facility] Address [address] [place] [address] Care Team Providers Care Water Chemist Name Role Phone Unavailable Primary Care Provider Unavailabl e Encounter Details DateTypeDepartmentCare Team (Latest Contact Info)Gpwvhxutdfi87/28/2025Patient Outreach [facility] [address] [place] [address] Deyanira Phillips LPN [address] [place] [address] Social History Tobacco UseTypesPacks/DayYears UsedDateSmoking Tobacco: Never AssessedPHQ-2 AnswerDate RecordedPatient Health Questionnaire-2 Utifw284 Estimated Date of GfqamovsPxsnxpdhZji42/04/2025Based on UltrasoundSex and Gender InformationValueDate RecordedSex Assigned at EkcdtDwznun51/27/2025 5:56 PM EDT Legal ChpYdjyyr03/15/2023 7:00 PM EDTGender WmfqegcjObyrxr06/27/2025 5:56 PM EDT Sexual OrientationNot on filedocumented as of this encounter Progress Notes * Deyanira Phillips LPN - 06/24/2025 10:08 AM EDT Monthly Outreach. Call to pt X2, LVM. documented in this encounter Plan of Treatment DateTypeDepartmentCare Team (Latest Contact Info)Fxavcemgoci74/16/2025 10:30 AM ESTPostpartum Visit [facility] [address] [place] [phone] Deyanira Martinez PA [address] [facility] [place] [address] documented as of this encounter Visit Diagnoses Not on filedocumented in this encounter
--- OUTSIDE RECORDS SUMMARY | 2025-07-07 08:44 | XMS_ITS | Encounter Summary ---
Author Organization [facility] Address [address] [facility] [place] [address] Care Team Providers Care Loading Machine Operator Helper Name Role Phone Unavailable Primary Care Provider Unavailabl e Encounter Details DateTypeDepartmentCare Team (Latest Contact Info)Wxifjxibcoy58/30/2025Bamboo flowsheet [facility] [address] [place] [place] [address] Deyanira Martinez PA [address] [facility] [address] [place] [address] Social History Tobacco UseTypesPacks/DayYears UsedDateSmoking Tobacco: Never AssessedPHQ-2 AnswerDate RecordedPatient Health Questionnaire-2 Xbofc774 Estimated Date of CbdalnhxWccggvabIth11/04/2025Based on UltrasoundSex and Gender InformationValueDate RecordedSex Assigned at MjyobBsjmti62/27/2025 5:56 PM EDT Legal QofKvrfpj18/15/2023 7:00 PM EDTGender PmfbhhheHamwna90/27/2025 5:56 PM EDT Sexual OrientationNot on filedocumented as of this encounter Plan of Treatment DateTypeDepartmentCare Team (Latest Contact Info)Wpiimzqfagk87/16/2025 10:30 AM ESTPostpartum Visit [facility] [address] [place] [place] [address] Deyanira Martinez, PA [address] [facility] [address] [place], [facility] documented as of this encounter Visit Diagnoses Not on filedocumented in this encounter
--- OUTSIDE RECORDS SUMMARY | 2025-07-07 08:45 | XMS_ITS | CCD ---
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 date: 1995 Sex: F Assigned Patient Location: [facility] Current Patient Location: [facility] Accession/Order Number: [id number] Exam Date: 06/02/2025 10:22 Report Date: 06/02/2025 10:52 At the request of: JASPREET ADAMS DO Procedure: US OB BPP w non-stress Biophysical profile. Reason for exam: Gestational diabetes COMPARISON: 05/26/2025 TECHNIQUE: Transabdominal imaging of the gravid uterus was obtained. FINDINGS: The warp trucker reports a BPP of 8 out of 8. DOYLE is normal at 8.9 cm. heart rate 124 bpm. US/US OB BPP w non-stress IMPRESSION: BPP 8 out of 8. Impression dictated by: Ramana Raza Jr., D.O. 06/02/2025 10:52 AM Dictation Location: [place] [address] Electronically authenticated by: [id number] Y Date: 06/02/2025 10:52 Dictated By: Ramana Raza M.D. Signed By: 06/02/25 1054 DD/ 105 TD/TT: Vegetable Tier: [facility] HOSPITALFerny HealthcareRadiology Study observation (narrative)NOMS HealthcareUS OB BPP W NON-STRESSOrdered By: Radiologist Radiology on 67-61-4948N[facility]CE [facility] Work Phone: Urinalysis macro (dipstick) panel [...] mg/dLNOMS HealthcareNOMS HealthcareUS OB BPP W NON-STRESSon 54-68-7299[address] [address] Ultrasound Report Signed Patient: CHENTE GONZALEZ MR#: [id number] : 1995 Acct:[id number] Age/Sex: 29 / F ADM Date: 05/26/25 Loc: US Attending Dr: Jaspreet Adams D.O. Ordering Physician: Jaspreet Adams D.O. Date of Service: 05/26/25 Procedure(s): US OB BPP w non-stress Accession Number(s): [id number] cc: Jaspreet Adams D.O.; Physician,Non-Staff Alejandra [address] [address] Patient Name: CHENTE GONZALEZ MRN: [facility]:[id number] date: 1995 Sex: F Assigned Patient Location: [facility] Current Patient Location: Accession/Order Number: [id number] Exam Date: 05/26/2025 10:05 Report Date: 05/26/2025 [...] Mae M.D. 05/26/2025 11:39 AM Dictation Location: [place] [address] Electronically authenticated by: [id number] Y Date: 05/26/2025 11:39 Dictated By: Rahel Mae M.D. Signed By: 05/26/25 1142 DD/ 1139 TD/TT: Vegetable Tier:BILLYadiology, Radiologist, - 05/26/2025 [place] [address] Ultrasound Report Signed Patient: CHENTE GONZALEZ MR#: [id number] : 1995 Acct:[id number] Age/Sex: 29 / F ADM Date: 05/26/25 Loc: US Attending Dr: Jaspreet Adams D.O. Ordering Physician: Jaspreet Adams D.O. Date of Service: 05/26/25 Procedure(s): US OB BPP w non-stress Accession Number(s): [id number] cc: Jaspreet Adams D.O.; Physician,Non-Staff Alejandra The [place] [id number] Patient Name: CHENTE GONZALEZ MRN: [id number]:[id number] date: 1995 Sex: F Assigned Patient Location: [facility] Current Patient Location: Accession/Order Number: [id number] Exam Date: 05/26/2025 10:05 Report Date: 05/26/2025 [...] Mae M.D. 05/26/2025 11:39 AM Dictation Location: RADIO-PC-02 Electronically authenticated by: [id number] Y Date: 05/26/2025 11:39 Dictated By: Rahel Mae M.D. Signed By: 05/26/25 1142 DD/ 1139 TD/TT: Vegetable Tier: MATTIE HealthcareRadiology Study observation (narrative)NOMFerny HealthcareUS OB BPP W NON-STRESSOrdered By: Radiologist Radiology on 31-26-6167[facility] Work Phone: US AMNIOTIC FLUID VOLUMEon [phone] [address] Ultrasound Report Signed Patient: CHENTE GONZALEZ MR#: [id number] : 1995 Acct:[id number] Age/Sex: 29 / F ADM Date: 05/20/25 Loc: [place] [address]: Jaspreet Adams D.O. Ordering Physician: Jaspreet Adams D.O. Date of Service: 05/20/25 Procedure(s): US OB amniotic fluid vol Accession Number(s): [id number] cc: Jaspreet Adams D.O.; Physician,Non-Staff Alejandra The [place] [id number] Patient Name: CHENTE GONZALEZ MRN: [id number] date: 1995 Sex: F Assigned Patient Location: [facility] Current Patient Location: [place] Accession/Order Number: [id number] Exam Date: 05/20/2025 11:10 Report Date: 05/20/2025 [...] Mae M.D. 05/20/2025 11:33 AM Dictation Location: [place] [address] Electronically authenticated by: [id number] Y Date: 05/20/2025 11:33 Dictated By: Rahel Mae M.D. Signed By: 05/20/25 1136 DD/ 1133 TD/TT: Vegetable Tier:TBHRadiology, Radiologist, MD - 05/20/2025 [place] [address] Ultrasound Report Signed Patient: CHENTE GONZALEZ MR#: [id number] : 1995 Acct:[id number] Age/Sex: 29 / F ADM Date: 05/20/25 Loc: [place] [address]: Jaspreet Admas D.O. Ordering Physician: Jaspreet Adams D.O. Date of Service: 05/20/25 Procedure(s): US OB amniotic fluid vol Accession Number(s): [id number] cc: Jaspreet Adams D.O.; Physician,Non-Staff Alejandra The [address] [address] Patient Name: CHENTE GONZALEZ MRN: [id number] date: 1995 Sex: F Assigned Patient Location: [facility] Current Patient Location: [place] Accession/Order Number: [id number] Exam Date: 05/20/2025 11:10 Report Date: 05/20/2025 [...] Mae M.D. 05/20/2025 11:33 AM Dictation Location: [employer] Electronically authenticated by: [id number] Y Date: 05/20/2025 11:33 Dictated By: Rahel Mae M.D. Signed By: 05/20/25 1136 DD/ 1133 TD/TT: Vegetable Tier: MATTIE HealthcareRadiology Study observation (narrative)NOMFerny HealthcareUS AMNIOTIC FLUID VOLUMEOrdered By: Radiologist Radiology on 76-77-9580[facility] Work Phone: US OB BPP W NON-STRESSon [phone] [address] Ultrasound Report Signed Patient: CHENTE GONZALEZ MR#: [id number] : 1995 Acct:[id number] Age/Sex: 29 / F ADM Date: 05/19/25 Loc: [facility] 250-[address]: Jaspreet Adams D.O. Ordering Physician: Jaspreet Adams D.O. Date of Service: 05/19/25 Procedure(s): US OB BPP w non-stress Accession Number(s): [id number] cc: Jaspreet Adams D.O.; Physician,Non-Staff Alejandra The [place] [id number] Patient Name: CHENTE GONZALEZ MRN: [id number] date: 1995 Sex: F Assigned Patient Location: [facility] Current Patient Location: [facility] Accession/Order Number: [id number] Exam Date: 05/19/2025 10:15 Report Date: 05/19/2025 [...] Mae M.D. 05/19/2025 10:54 AM Dictation Location: [employer] Electronically authenticated by: [id number] Y Date: 05/19/2025 10:54 Dictated By: Rahel Mae M.D. Signed By: 05/19/25 1056 DD/ 1054 TD/TT: Vegetable Tier:TBHRadiology, Radiologist, MD - 05/19/2025 [place] [address] Ultrasound Report Signed Patient: CHENTE GONZALEZ MR#: [id number] : 1995 Acct:[id number] Age/Sex: 29 / F ADM Date: 05/19/25 Loc: [facility] 250-[address]: Jaspreet Adams D.O. Ordering Physician: Jaspreet Adams D.O. Date of Service: 05/19/25 Procedure(s): US OB BPP w non-stress Accession Number(s): [id number] cc: Jaspreet Adams D.O.; Physician,Non-Staff Alejandra The [address] [address] Patient Name: CHENTE GONZALEZ MRN: [id number] date: 1995 Sex: F Assigned Patient Location: [facility] Current Patient Location: [facility] Accession/Order Number: [id number] Exam Date: 05/19/2025 10:15 Report Date: 05/19/2025 [...] Mae M.D. 05/19/2025 10:54 AM Dictation Location: [employer] Electronically authenticated by: [id number] Y Date: 05/19/2025 10:54 Dictated By: Rahel Mae M.D. Signed By: 05/19/25 1056 DD/ 1054 TD/TT: Vegetable Tier: MATTIE HealthcareRadiology Study observation (narrative)NOMS HealthcareUS OB BPP W NON-STRESSOrdered By: Radiologist Radiology on 99-19-2971[facility] Work Phone: Urinalysis macro (dipstick) panel [...] HealthcareNOMS HealthcareUS OB FOLLOW UP TRANSABDOMINAL APPROACHon 95-32-7539KE OB FOLLOW UP TRANSABDOMINAL APPROACHA single, live [...] menstrual period. TRANSCRIBED BY: ELECTRONICALLY SIGNED BY: Rafael QuinterosrmalNot AvailableComment on above:Order Comment: US OB SCAN FOR GROWTH Estimated Date of Delivery: 07/01/25 Gestational Age as of 04/17/2025: 38i5vPvslparhys macro (dipstick) panel (U)on 65-95-5216Eundmcmig, UANegativeNegative - 4(70) +++ mg/dLNOMS HealthcareBlood, UAPositiveNegative [...] mg/dLNOMS HealthcareNOMS HealthcareUrinalysis macro (dipstick) panel (U)on 85-31-6748Vjlehmcji, UA NegativeNegative - 4(70) +++ mg/dLNOMS HealthcareBlood, [...] mg/dLNOMS HealthcareNOMS HealthcareUrinalysis macro (dipstick) panel (U)on 64-42-5242Gfoccorpi, UANegativeNegative - 4(70) +++ mg/dLNOMS HealthcareBlood, UAPositiveNegative - 50 Derick/mcLNOMS HealthcareClarity, UAClear NOMS HealthcareColor, UAYellowNOMS HealthcareGlucose, UANegativeNegative - 1999(110) ++++ mg/dLNOMT HealthcareInterpretation and review of laboratory resultsAbnormalNOMT HealthcareKetones, UANegativeNegative - 160(16) ++++ mg/dL NOMS HealthcareLeukocytes, UANegativeNegative - 500+++ Julio/mcLNOMS Healthcare Nitrite, UANegativeNegative - PositiveNOMS HealthcarepH, UA6.55 - 9NOMS HealthcareProtein, UANegativeNegative - 2000(20) ++++ mg/dLNOMS HealthcareSpec Grav, UA1.0151 - 1.03NOMS HealthcareUrobilinogen, UA1.00.2 - 12 mg/dLNOMS HealthcareNOMS HealthcareGLUCOSE TOLERANCE 3 HOURon 33-34-9554AWULZIU TOLERANCE 3 HOURHighmg/dLNOMS HealthcareComment on above:GLU FAST 86 (<95) Col: 03/21/25 0856 GLU 1HR 181H (<180) Col: 03/21/25 1002 GLU 2HR 162H (<155) Col: 03/21/25 1102 GLU 3HR 75 (<140) Col: 03/21/25 1202 Interpretation and review of laboratory resultsAbnormalNOMT HealthcareCLINISYNC NOMS HealthcareUS OB LIMITED 1+ FETUSESon 01-72-5317YZ OB LIMITED 1+ FETUSES EXAM: US OB [...] at 21-Mar-2025 08:31:03 AM [facility] [place] TeleradiologyNormalNot AvailableComment on above:Order Comment: US OB INCOMPLETE ANATOMY Estimated Date of Delivery: 07/01/25 Gestational Age as of 02/24/2025: 50r0tCMB,APTIMA HPV,AGE GDLNon 49-27-3550GSW GDLN ACOG TESTINGNote.[facility] HealthcareComment on above:TESTS RESULT FLAG UNITS REF RANGE LAB Clinician Provided Cytology Information Source.............[employer] Other.............. No. of containers..01 ThinPrep Vial Age Algo ACOG Mandie... FLAG LEGEND: L-Low Normal,H-High Normal,LL-Alert Low,HH-Alert High <-Panic Low,>-Panic High,A-Abnormal,AA-Critical Abnormal Performed at: 01 =[address] [address] Mkcenna Polanco MD, IGP, RFX APTIMA HPV ASCUNote.[facility] HealthcareComment on above:TESTS RESULT FLAG UNITS REF RANGE LAB DIAGNOSIS: 02 NEGATIVE FOR INTRAEPITHELIAL LESION OR MALIGNANCY. Specimen adequacy: 02 Satisfactory for evaluation. No endocervical component is identified. Performed by: 02 Vernell Pineda, Powder Press Operator ([facility]) . 02 Note: Note 02 The [...] <-Panic Low,>-Panic High,A-Abnormal,AA-Critical Abnormal Performed at: [address] [address] Mckenna Polanco MD, Performed at: = - [facility] [id number] Technical Operations Vice President: Mckenna Polanco MD, Phone: [phone] Performed at: [facility] [address] [id number] Technical Operations Vice President: Mckenna Polanco MD, Phone: [phone] SPATULA-ALONE ENDOCERVIX CLINISYNCNOMT HealthcareGLUCOSE 1 HOURon 73-95-4163Ccovpnp [Mass/Vol]141 mg/dL HighNINF - 130 mg/dLNOMT HealthcareInterpretation and review of laboratory resultsAbnormalNOMT HealthcareCLINISYNCGlucose tolerance, 1 houron 03-06-2025 Glucose Tolerance Test 1 Gyyz267OjwHdntdm Actinobac Biomed SystemNo Panel Informationon 17-79-0584UDLF HealthcareUrinalysis macro (dipstick) panel (U)on 03-05-2025 Bilirubin, UANegativeNegative - 4(70) +++ mg/dLNOMS HealthcareBlood, UANegative Negative - 50 Derick/mcLNOMS HealthcareClarity, UAClearNOMS HealthcareColor, UA YellowNOMS HealthcareGlucose, UANegativeNegative - 2000(110) ++++ mg/dLNOMS HealthcareInterpretation and review of laboratory resultsNormalNOMS Healthcare Ketones, UANegativeNegative - 160(16) ++++ mg/dLNOMS HealthcareLeukocytes, UA NegativeNegative - 500+++ Julio/mcLNOMS HealthcareNitrite, UANegativeNegative - PositiveNOMS HealthcarepH, UA65 - 9NOMS HealthcareProtein, UANegativeNegative - 2000(20) ++++ mg/dLNOMS HealthcareSpec Grav, UA1.011 - 1.03N[facility]S Healthcare Urobilinogen, UA0.20.2 - 12 mg/dLNOMS HealthcareNOMS HealthcareUS OB 14+ WEEKS ANATOMY SCANon 55-61-1614JH OB 14+ WEEKS ANATOMY SCANEXAM: US OB [...] II, MD, PHD at 20-Feb-2025 09:47:05 AM [facility] [place] TeleradiologyNormalNot AvailableComment on above:Order Comment: US OB ANATOMY SINGLE W US OB CERVICAL LENGTH Estimated Date of Delivery: 07/01/25 Gestational Age as of 02/12/2025: 89u4bWXV surface Ag IA Qlon 28-66-2493Fmpapfbpw B Surface AntigenNegativeProMedica Health SystemProMedica Health SystemBOX TEST on 62-34-5755BNP TEST SENT OUTUNITY BOXNOMT TlneeyucdmCHS4OUAMPJRHV Healthcare BOX20/02/25NOMT HealthcareUNITY BOX CLINISYNCDrug Screen, Urineon 41-93-0044Fmuprifzgcs/MethamphetamineNegative [facility] SystemBarbituratesNegativeProMedica Health System BenzodiazepinesNegativeProMedica Health SystemCocaine MetaboliteNegative [facility] SystemEcstasyNegativeProMedica Health SystemMethadoneNegative [facility] SystemOpiatesNegativeProMedica Health SystemOxycodoneNegative [facility] SystemPhencyclidineNegativeProMedica Health SystemThc Marijuana, UrinePositiveHolden Memorial HospitalMedica Health SystemHIV 1+2 Ab+HIV1 p24 Ag IA Qlon 70-17-9966CKU 1&2 AB/AGNon-ReactiveHolden Memorial HospitalMedica Health SystemHemoglobin A1con 90-73-5659OvB7y (Bld) [Mass fraction]4.9 %4.0 - 6.0 %[facility]edica Health SystemNo Panel Informationon 12-71-8123UQQS HealthcareRubella IGG immune statuson 06-16-2277Ncpkjod immune IgG7.29ProProtestant Deaconess Hospital SystemType and screenon 30-53-8527Obq/Rh(D)NegativeProProtestant Deaconess Hospital SystemNo Panel Informationon 25-58-6695AVJPISGWIOFEVJ EPIDERMIDIS, HAEMOLYTICUS, LUGDUNENSIS, SAPROPHYTICUS (OMOEG5WXJJ HealthcareSTAPHYLOCOCCUS EPIDERMIDIS, HAEMOLYTICUS, LUGDUNENSIS, SAPROPHYTICUS (URINANot detectedNOMS HealthcareURINARY TRACT INFECTION (HTRX)on 88-15-0817KBEXRHZGTHUZD CWSJRHFC0OVOV HealthcareACINETOBACTER BAUMANIINot detectedNOMS HealthcareCANDIDA ALBICANS, PARAPSILOSIS, CTWDCNIPTH2XGCE HealthcareCANDIDA ALBICANS, PARAPSILOSIS, TROPICALISNot detectedNOMS Healthcare MAYNOR NDQEKJFS3FPWM HealthcareCANDIDA GLABRATANot detectedNOMS Healthcare MAYNOR XHSVHA8DOOS HealthcareCANDIDA KRUSEINot detectedNOMS Healthcare CITROBACTER PAIUSTPO2CDAE HealthcareCITROBACTER FREUNDIINot detectedNOMS HealthcareENTEROBACTER AEROGENES, YJPBAIM0YYCP HealthcareENTEROBACTER AEROGENES, CLOACAENot detectedNOMS HealthcareENTEROCOCCUS FAECALIS, LMUDORP9LMOQ Healthcare ENTEROCOCCUS FAECALIS, FAECIUMNot detectedNOMS HealthcareESCHERICHIA STBQ1UNBV HealthcareESCHERICHIA COLINot detectedNOMS HealthcareKLEBSIELLA PNEUMONIAE, GYJKSSB9OUPR HealthcareKLEBSIELLA PNEUMONIAE, OXYTOCANot detectedNOMS Healthcare MORGANELLA TTOFUSHS9MXGQ HealthcareMORGANELLA MORGANIINot detectedNOMS HealthcarePROTEUS MIRABILIS, CJQXNIAA8ZENR HealthcarePROTEUS MIRABILIS, VULGARIS Not detectedNOMS HealthcarePSEUDOMONAS AEHJBZZARB3KYYY HealthcarePSEUDOMONAS AERUGINOSANot detectedNOMS HealthcareSERRATIA VZYPNAMZSY3NAPY HealthcareSERRATIA MARCESCENSNot detectedNOMS HealthcareSTAPHYLOCOCCUS HRSNAA3PZXW Healthcare STAPHYLOCOCCUS AUREUSNot detectedNOMS HealthcareSTREPTOCOCCUS AGALACTIAE (GROUP B STREP)0NOMS HealthcareSTREPTOCOCCUS AGALACTIAE (GROUP B STREP)Not detectedNOMS HealthcareSTREPTOCOCCUS PYOGENES (GROUP A STREP)0NOMS HealthcareSTREPTOCOCCUS PYOGENES (GROUP A STREP)Not detectedNOMS HealthcareNOMT HealthcareUrinalysis macro (dipstick) panel (U)on 63-85-2929Prmfwoqqu, UANegativeNegative - 4(70) +++ mg/dLNOMS HealthcareBlood, UAPositiveNegative - 50 Derick/mcLNOMS HealthcareComment on above:Trace-intactClarity, UAClearNOMS HealthcareColor, UAYellowNOMS HealthcareGlucose, UANegativeNegative - 2000(110) ++++ mg/dLNOMS Healthcare Interpretation and review of laboratory resultsAbnormalNOMT HealthcareKetones, UANegativeNegative - 160(16) ++++ mg/dLNOMS HealthcareLeukocytes, UANegative Negative - 500+++ Julio/mcLNOMS HealthcareNitrite, UANegativeNegative - Positive NOMS HealthcarepH, UA75 - 9NOMS HealthcareProtein, UATraceNegative - 2000(20) ++++ mg/dLNOMS HealthcareSpec Grav, UA1.021 - 1.03NOMS HealthcareUrobilinogen, UA1.00.2 - 12 mg/dLNOMS HealthcareNOMT HealthcareHCG ( test) Ql (U)on 67-27-7813Tomtbbcbckdgrk and review of laboratory resultsAbnormalVALLEY VIEW [facility]ENTER Healthcare Preg Test, UrPositiveNegativeNOMS HealthcareNOMS HealthcareUS OB LIMITED 1+ FETUSESon 24-54-6270NX OB LIMITED 1+ FETUSESEXAM: US OB LIMITED [...] II, MD, PHD at 27-Jan-2025 10:23:04 AM [facility] TeleradiologyNormalNot AvailableComment on above:Order Comment: US OB TRANSVAGINAL No LMP recorded.Urinalysis macro (dipstick) panel (U)on 86-53-5236Fiphrlkah, UA NegativeNegative - 4(70) +++ mg/dLNOMS HealthcareBlood, [...] - 12 mg/dLNOMS HealthcareNOMS Healthcare Urine Cultureon 46-72-9760Rgkxrpdl identified Cx Nom (U)No Growth 2 Days PERFORMED BY: [place] [address] PATHOLOGIST MAINTENANCE CHIEF RAHUL HOLCOMB M.D.NormalThe [facility] Physician GroupComment on above: Performed By: #### CUU #### [address] Cruz StreetAmphetamine Screen Ql (U)Ordered By: Denny Azevedo on 40-65-8442Afqmagtufjtr Ql (U)NegativeNegativeMary [facility] Hospital Amylase [Enzymatic activity/volume] in Serum or PlasmaOrdered By: eDnny Azevedo on 70-52-8004Bkaxybg [Catalytic activity/Vol]32 U/Y85-954RsrkgcosiMary Rutan HospitalAspartate aminotransferase [Enzymatic activity/volume] in Serum or PlasmaOrdered By: Denny Azevedo on 18-54-3515SHO [Catalytic activity/Vol]24 U/L 13-39Mary Rut[facility] HospitalAutomated erythrocytes count in urine sediment (number/area)Ordered By: Denny Azevedo on 32-86-3114XLF Auto (Urine sed) [#/Area]10-19 [HPF]0-4FUniversity Hospitals Lake West Medical CenterAutomated leukocytes count in urine sediment (number/area)Ordered By: Denny Azevedo on 35-66-3040EKY Auto (Urine sed) [#/Area]3-4 [HPF]0-4FUniversity Hospitals Lake West Medical Center Barbiturates [Presence] in Urine by Screen methodOrdered By: Denny Azevedo on 17-81-2905Ikfdduxkauqg Screen Ql (U)NegativeNegativeMary Rutan HospitalBasophils Auto (Bld) [#/Vol]Ordered By: Denny Azevedo on 08-11-2023 Basophils (Bld) [#/Vol]0.1 10*3/uL0.0-0.2FUniversity Hospitals Lake West Medical Center Basophils/100 WBC Auto (Bld)Ordered By: Denny Azevedo on 22-49-5129Sxxqglefl/100 WBC (Bld)0.9 %.Mary Rut[facility] HospitalBenzodiazepines Screen Ql (U) Ordered By: Denny Azevedo on 29-05-1208Zruycitatejeclt Ql (U)NegativeNegative [facility] HospitalBenzoylecgonine [Presence] in Urine by Screen methodOrdered By: Denny Azevedo on 47-67-9890Mrpisvuvuzuwhyz Screen Ql (U) NegativeNegativeMary Rutan HospitalBilirubin Test strip Ql (U) Ordered By: Denny Azevedo on 22-42-8823Gdstiwizr Ql (U)NegativeNegativeMary Rutan HospitalCannabinoids [Presence] in Urine by Screen methodOrdered By: Denny Azevedo on 88-15-9866Syzdtrcalavj Screen Ql (U)PositiveNegative [facility] HospitalComment on above:These are unconfirmed results and should not be used for legal purposes. Drug Cut-Off Concentration: AMPH 1000 ng/mL THOMAS 200 ng/mL ARTHUR 200 ng/mL COCM 300 ng/mL OP 300 ng/mL PCP 25 ng/mL THC 20 ng/mLCarbon dioxide, total [Moles/volume] in Serum or PlasmaOrdered By: Denny Azevedo on 67-57-1203AE1 [Moles/Vol]17.8 mmol/L21.0-31.0Mary [facility] HospitalChloride [Moles/volume] in Serum or PlasmaOrdered By: Denny Azevedo on 25-98-6180Grqdluko [Moles/Vol]108 mmol/A43-895CmjgawhzmMary Rutan HospitalColor Auto (U)Ordered By: Denny Azevedo on 23-81-9259Ioagw (U) YellowYellowMary Rutan HospitalCreatine kinase [Enzymatic activity/volume] in Serum or PlasmaOrdered By: Denny Azevedo on 43-43-9338PN [Catalytic activity/Vol]225 U/A04-950QllmrrrkkMary Rutan HospitalCreatinine [Mass/volume] in Serum or PlasmaOrdered By: Denny Azevedo on 08-11-2023 Creatinine [Mass/Vol]0.68 mg/dL0.60-1.20[facility] Eosinophils Auto (Bld) [#/Vol]Ordered By: Denny Azevedo on 36-45-3599Qwksrrejime (Bld) [#/Vol]0.1 10*3/uL0.0-0.45[facility] Eosinophils/100 WBC Auto (Bld)Ordered By: Denny Azevedo on 08-11-2023 Eosinophils/100 WBC (Bld)1.3 %.Mary Rutan HospitalErythrocyte distribution width Auto (RBC) [Ratio]Ordered By: Denny Azevedo on 08-11-2023 Erythrocyte distribution width (RBC) [Ratio]12.9 %11.9-15.3FUniversity Hospitals Lake West Medical CenterEthanol [Mass/volume] in Serum or PlasmaOrdered By: Denny Azevedo on 57-22-1446Pybqvpr [Mass/Vol]mg/dLMary Rutan HospitalEthanol [Mass/Vol]TNPMary Rutan HospitalComment on above:Test not performedGlucose [Mass/volume] in Serum or PlasmaOrdered By: Denny Azevedo on 01-33-8045Tasxekb [Mass/Vol]109 mg/vF05-455MijzvflviMary Rutan Hospital Comment on above:ADA recommended reference rangeRandom Glucose Reference Range is dependent on time and content of last meal. Glucose of more than 200 mg/dL in a nonstressed, ambulatory subject supports the diagnosisof Diabetes Mellitus. HCG ( test) IA.rapid Ql (U)Ordered By: Denny Azevedo on 37-06-1175CIS ( test) Ql (U)NegativeMary Rutan HospitalHematocrit Auto (Bld) [Volume fraction]Ordered By: Denny Azevedo on 31-27-9393Chricvkxsb (Bld) [Volume fraction]40.4 %34.0-46.4FUniversity Hospitals Lake West Medical CenterHemoglobin [Mass/volume] in BloodOrdered By: Denny Azevedo on 53-48-6954Oypjtzpopo (Bld) [Mass/Vol]14.2 g/dL11.8-15.4FUniversity Hospitals Lake West Medical CenterINR in Platelet poor plasma by Coagulation assayOrdered By: Denny Azevedo on 54-02-8796OVY Coag (PPP) [Relative time]1.0 {INR}Mary Rutan HospitalComment on above: INR Therapeutic Range A) [...] By: Denny Azevedo on 08-11-2023 Ketones (U) [Mass/Vol]TraceNegativeMary Rutan HospitalLaboratory - UrinalysisOrdered By: Denny Azevedo on 58-63-9330Lgvxgmp casts LM Ql (Urine sed)0-8 [LPF]0-8Mary Rutan HospitalLeukocytes [#/volume] corrected for nucleated erythrocytes in Blood by Automated counOrdered By: Denny Azevedo on 46-41-6863TBF corrected for nucl RBC Auto (Bld) [#/Vol]7.9 10*3/uL3.8-11.6 [facility] HospitalLipase [Enzymatic activity/volume] in Serum or PlasmaOrdered By: Denny Azevedo on 13-78-5036Wzbepa [Catalytic activity/Vol]13.0 U/L11.0-82.0Mary Rutan HospitalLymphocytes Auto (Bld) [#/Vol] Ordered By: Denny Azevedo on 12-03-8496Yfeasfempzx (Bld) [#/Vol]1.8 10*3/uL 1.00-4.8Mary Rutan HospitalLymphocytes/100 WBC Auto (Bld)Ordered By: Denny Azevedo on 08-66-6540Layufaupyqb/100 WBC (Bld)23.1 %.[facility] Auto (RBC) [Entitic mass]Ordered By: Denny Azevedo on 59-06-6020ILE (RBC) [Entitic mass]30.4 pg24.7-34.3FACMC Healthcare System GlenbeighHC Auto (RBC) [Mass/Vol]Ordered By: Denny Azevedo on 44-99-5278UVQN (RBC) [Mass/Vol]35.1 g/dL32.0-35.0Mary Rutan HospitalMCV Auto (RBC) [Entitic vol]Ordered By: Denny Azevedo on 20-26-1174YVI (RBC) [Entitic vol]86.7 wV82-393KdmudrvndMary Rutan HospitalMonocyte distribution width [Entitic volume] in Blood by AutomatedOrdered By: Denny Azevedo on 08-11-2023 Monocyte distribution width Auto (Bld) [Entitic vol]17.99 %0.00-20.00[facility] HospitalMonocytes Auto (Bld) [#/Vol]Ordered By: Denny Azevedo on 75-27-6430Eadrtkkka (Bld) [#/Vol]0.5 10*3/uL0.0-0.8[facility] HospitalMonocytes/100 WBC Auto (Bld)Ordered By: Denny Azevedo on 08-11-2023 Monocytes/100 WBC (Bld)6.9 %.[facility] HospitalNeutrophils Auto (Bld) [#/Vol]Ordered By: Denny Azevedo on 66-85-2321Usqnginphme (Bld) [#/Vol]5.4 10*3/uL1.8-7.7FUniversity Hospitals Lake West Medical CenterNeutrophils/100 WBC Auto (Bld) Ordered By: Denny Azevedo on 52-24-6041Xgoarhnvurb/100 WBC (Bld)67.8 %.[facility] HospitalNitrite Test strip Ql (U)Ordered By: Denny Azevedo on 98-15-1653Dvvwlyc Ql (U)NegativeNegativeMary Rutan HospitalNo Panel InformationOrdered By: Denny Azevedo on 05-81-4283Qrqmgnywf GFR (CKD-EPI)> 60.0 mL/MinMary Rutan HospitalPharmacy Creatinine Clearance (Chem 138.27Mary Rutan HospitalNucleated erythrocytes [Presence] in Blood by Automated countOrdered By: Denny Azevedo on 44-05-2469Tqjadyujk RBC Auto Ql (Bld)0.1 /100{WBC}0-0.5FUniversity Hospitals Lake West Medical CenterOpiates [Presence] in Urine by Screen methodOrdered By: Denny Azevedo on 08-11-2023 Opiates Screen Ql (U)NegativeNegativeMary [facility]an Hospital Phencyclidine Screen Ql (U)Ordered By: Denny Azevedo on 27-37-6232Ttpzbducgqijo Ql (U)NegativeNegMcKitrick HospitalPlatelet mean volume Auto (Bld) [Entitic vol]Ordered By: Denny Azevedo on 32-96-2276Qvkqbarc mean volume (Bld) [Entitic vol]7.7 fL6.3-10.7FUniversity Hospitals Lake West Medical CenterPlatelets Auto (Bld) [#/Vol]Ordered By: Denny Azevedo on 89-26-9140Yhfmnorrr (Bld) [#/Vol]307 10*3/iX381-047UxrfocnwkMary Rutan HospitalPotassium [Moles/volume] in Serum or PlasmaOrdered By: Denny Azevedo on 79-40-0941Urkhlcbta [Moles/Vol]3.3 mmol/L 3.5-5.1FUniversity Hospitals Lake West Medical CenterProtein Auto test strip (U) [Mass/Vol] Ordered By: Denny Azevedo on 06-65-4657Pnfksft (U) [Mass/Vol]30 mg/dLNegative [facility] HospitalProthrombin time (PT)Ordered By: Denny Azevedo on 21-59-8530PJ Coag (PPP) [Time]12.1 s9.0-12.9[facility] Comment on above:A hematocrit value greater than 55% may lead to inaccurate results in coagulation testing. Patientshaving hematocrit values >55% require a special collection tube for coagulation studies. Please contact the laboratory at [phone] for redraw instructions.RBC Auto (Bld) [#/Vol]Ordered By: Denny Azevedo on 64-12-0018BAE (Bld) [#/Vol]4.66 10*6/uL3.60-5.00[facility] Townshiperum or plasma anion gap determinationOrdered By: Denny Azevedo on 92-56-1068Zpndn gap [Moles/Vol]15.5 mmol/L6.0-15.0[facility] Townshipodium [Moles/volume] in Serum or PlasmaOrdered By: Denny Azevedo on 24-22-4953Becrwh [Moles/Vol]138 mmol/A027-574RnlecvyykMary Rutan Hospital Specific gravity Auto test strip (U) [Rel density]Ordered By: Denny Azevedo on 58-42-4382Fiyshxfo gravity (U) [Rel density]1.0261.001-1.030[facility] Townshipquamous epithelial cells detection in urine sediment by light microscopyOrdered By: Denny Azevedo on 19-67-6455Bdhgkqgrce cells.squamous LM Ql (Urine sed)0-1 [HPF]0-2FUniversity Hospitals Lake West Medical CenterUrea nitrogen [Mass/volume] in Serum or PlasmaOrdered By: Denny Azevedo on 69-84-2367Sxkj nitrogen [Mass/Vol]11 mg/dL7-25Mary Rutan HospitalUrine bacteria detection by automated methodOrdered By: Denny Azevedo on 72-07-2804Gfspkrkf Auto Ql (U)None seenNone SeenMary Rutan HospitalUrine clarity by refractometry automatedOrdered By: Denny Azevedo on 80-15-7781Rcbriew Refractometry automated (U)ClearClearFUniversity Hospitals Lake West Medical CenterUrine glucose measurement by automated test strip (mass/volume)Ordered By: Denny Azevedo on 76-20-2994Oxzrgyk Auto test strip (U) [Mass/Vol]Normal mg/dLNormal [facility] HospitalUrine hemoglobin detection by automated test stripOrdered By: Denny Azevedo on 59-81-0276Ieqqhewzuk Auto test strip Ql (U)2+ NegativeMary Rutan HospitalUrine leukocyte esterase detection by automated test stripOrdered By: Denny Azevedo on 20-02-0519Abijmjjta esterase Auto test strip Ql (U)NegativeNegativeMary Rutan Hospital Urobilinogen Auto test strip (U) [Mass/Vol]Ordered By: Denny Azevedo on 24-24-7248Zzewvuezbysf (U) [Mass/Vol]Normal mg/dLNormAshtabula County Medical CenterWBC Auto (Bld) [#/Vol]Ordered By: Denny Azevedo on 01-83-4458QIJ (Bld) [#/Vol]7.9 10*3/uL3.8-11.6FUniversity Hospitals Lake West Medical CenterpH Auto test strip (U)Ordered By: Denny Azevedo on 34-08-9901wJ (U)6.5 [pH]5.0-9.0[facility] HospitalBILIRUBIN CONJUGATED (DIRECT)on 01-18-9939VRJI, CONJUGATED0.3 mg/dLCritically high0.0-0.2The [facility] CenterComment on above: Performed By: #### DBIL #### [facility] [address] [address] [address] Yaritza Tillman AUTO DIFFon 69-83-1963TWCB #0.1 103/ulNormal0.0-0.1The [facility] CenterComment on above:Performed By: #### CBC #### [facility] [address] [address] [address] Yaritza BojorquezBasophils/100 WBC (Bld)0.5 %Normal0.2-2.0The [facility] Comment on above:Performed By: #### CBC #### [facility] [address] [address] [address] Yaritza Blue #0.0 103/ulNormal0.0-0.7The [facility] CenterComment on above: Performed By: #### CBC #### [facility] [address] [place] [address] Dr. Yaritza Tafoyaosinophils/100 WBC (Bld)0.1 %Critically low0.9-7.0The [facility] CenterComment on above:Performed By: #### CBC #### [facility] [address] [place] [address] Dr. Yaritza Tafoyarythrocyte distribution width (RBC) [Ratio]12.1 %Ydpsgk74.0-15.0 The [facility] CenterComment on above:Performed By: #### CBC #### [facility] [address] [place] [address] Dr. Yaritza BojorquezHematocrit (Bld) [Volume fraction]45.0 %Rdjkqy91.0-48.0The [facility] CenterComment on above:Performed By: #### CBC #### [facility] [address] [place] [address] Dr. Yaritza BojorquezHemoglobin (Bld) [Mass/Vol]16.5 g/dLCritically high12.0-16.0The [facility] CenterComment on above:Performed By: #### CBC #### [facility] [address] [place] [address] Dr. Yaritza Chandler #0.05 10e3/ulCritically high0.00-0.03The [facility] Comment on above:Performed By: #### CBC #### [facility] [address] [place] [address] Dr. Yaritza Chandler %0.3 %Normal0.0-0.5The [facility] CenterComment on above: Performed By: #### CBC #### [facility] [address] [place] [address] Dr. Yaritza Cruz #3.2 103/ulNormal1.2-3.8The [facility] CenterComment on above:Performed By: #### CBC #### [facility] [address] [place] [address] Dr. Yilan ChangLymphocytes/100 WBC (Bld)21.6 %Hxdqpv77.5-60.0The [facility] CenterComment on above:Performed By: #### CBC #### [facility] [address] [place] [address] Dr. Yaritza Garcia DIFF REQNONormalThe [facility] CenterComment on above: Performed By: #### CBC #### [facility] [address] [place] [address] Dr. Yaritza Tesfaye (RBC) [Entitic mass]30.7 ygTmkxyw58.7-34.0The [facility] CenterComment on above:Performed By: #### CBC #### [facility] [address] [place] [address] Dr. Yaritza Tesfaye (RBC) [Mass/Vol]36.7 g/dLCritically high29.9-35.2The [facility] CenterComment on above:Performed By: #### CBC #### [facility] [address] [place] [address] Dr. Yaritza Tesfaye (RBC) [Entitic vol]83.8 sPEkimxh78.0-99.0The [facility] CenterComment on above:Performed By: #### CBC #### [facility] [address] [place] [address] Dr. Yaritza Mercedes #0.8 103/ulNormal0.3-0.8The [facility] CenterComment on above:Performed By: #### CBC #### [facility] [address] [place] [address] Dr. Yaritza Jonesocytes/100 WBC (Bld)5.3 %Normal1.7-12.0[facility] Comment on above:Performed By: #### CBC #### [facility] [address] [place] [address] Dr. Yaritza Pearce #10.5 103/ulCritically high1.4-6.5The [facility] Comment on above:Performed By: #### CBC #### [facility] [address] [place] [address] Dr. Yaritza Mayoophils/100 WBC (Bld)72.2 %Mdejmo96.0-75.0The [facility] CenterComment on above:Performed By: #### CBC #### [facility] [address] [place] [address] Dr. Yaritza Maots mean volume (Bld) [Entitic vol]10.0 fLNormal9.5-13.5The [facility] CenterComment on above:Performed By: #### CBC #### [facility] [address] [place] [address] Dr. Yaritza AraujoT450 103/tdMdemms456-786Ieb [facility] on above: Performed By: #### CBC #### [facility] [address] [place] [address] Dr. Yaritza BojorquezRBC5.37 106/ulNormal4.20-5.40The [facility] CenterComment on above:Performed By: #### CBC #### [facility] [address] [place] [address] Dr. Yaritza BojorquezWBC14.6 103/ulCritically high4.0-11.0The [facility] Centerment on above:Performed By: #### CBC #### [facility] [address] [place] [address] Dr. Yaritza Vuong URINEon 32-79-3474GUSTYAJ URINECulture Observations: LIGHT GROWTH OF MIXED GENITAL KRYSTAL. NO POTENTIAL PATHOGENS SEEN.NormalThe [facility] CenterComment on above:Performed By: #### URCX #### [facility] [address] [place] [address] Dr. Yaritza Bosch URINE PROFILEon 38-32-6972Ruszgawze Ql (U)NegativeNormal NEGATIVEThe [facility] CenterComment on above:Performed By: #### BABAK LAZCANORO #### [facility] [address] [place] [address] Dr. Yaritza BojorquezClarity (U)CLEARNormalCLEARThe [facility] CenterComment on above: Performed By: #### BABAK LAZCANORO #### [facility] [address] [address] [address] Yaritza Cornell (U)DK. YELLOWNormalYELLOWSumma Health Akron CampusComment on above:Performed By: #### BABAK LAZCANORO #### [facility] [address] [place] [address] Dr. Yaritza Day micrscopic examination will be performed if indicated. NormalThe [facility] Medical CenterComment on above:Performed By: #### NENO UMICRO #### [facility] [address] [place] [address] Dr. Yaritza BojorquezGlucose Ql (U)NegativeNormalNEGATIVESumma Health [facility]ron CampusComment on above:Performed By: #### NENO UMRAJANRO #### [facility] [address] [place] [address] Dr. Yaritza BojorquezHemoglobin Ql (U)NegativeNormalNEGATIVESelect Medical [facility]ty [facility] on above:Performed By: #### NENO UMICRO #### [facility] [address] [place] [address] Dr. Yaritza Jay Ql (U)>=80AbnormalNEGATIVESumma Health [facility] CampusComment on above:Performed By: #### NENO UMICRO #### [facility] [address] [place] [address] Dr. Yaritza BojorquezLEUKOCYTESTRACEAbnormalNEGATIVESumma Health [facility] CampusComment on above:Performed By: #### NENO UMICRO #### [facility] [address] [place] [address] Dr. Yaritza Vidaltrite Ql (U)NegativeNormalNEGATIVESumma Health [facility]ron CampusComment on above:Performed By: #### NENO UMICRO #### [facility] [address] [place] [address] Dr. Yaritza BojorquezpH (U)6.5 [pH]Normal5-9[facility] CampusComment on above: Performed By: #### NENO UMICRO #### [facility] [address] [place] [address] Dr. Yaritza BojorquezProtein (U) [Mass/Vol]100 mg/dLAbnormalNEGATIVE/ TRACEThe [facility] CenterComment on above:Performed By: #### TAYLA LAZCANO #### [facility] [address] [place] [address] Dr. Yaritza BojorquezSPEC GRAVITY1.082Bnafwf7.005-<=1.025The [facility] CenterComment on above:Performed By: #### TAYLA LAZCANO #### [facility] [address] [place] [address] Dr. Yaritza Rodriguez MICRO INDINDICATEDNormalThe [facility] CenterComment on above: Performed By: #### TAYLA LAZCANO #### [facility] [address] [place] [address] Dr. Yaritza Mariano Qn (U)4 {Emir'U}/dLAbnormal0.2 - 1.0The [facility] CenterComment on above:Performed By: #### TAYLA LAZCANO #### [facility] [address] [place] [address] Dr. Yaritza BojorquezPROF 14(COMP METB)on 23-03-5816Hldzjnk [Mass/Vol]4.5 g/dLNormal 3.4-5.0The [facility] CenterComment on above:Performed By: #### CMP #### [facility] [address] [place] [address] Dr. Yaritza BojorquezAlbumin/Globulin [Mass ratio]1.2 {ratio}NormalThe [facility] CenterComment on above:Performed By: #### CMP #### [facility] [address] [place] [address] Dr. Yaritza Banks [Catalytic activity/Vol]48 U/BTisaro74-996Bzb [facility] CenterComsparrow ionia hospital on above:Performed By: #### CMP #### [facility] [address] [place] [address] Dr. Yaritza Garcia [Catalytic activity/Vol]25 U/FPrzzfe07-87Ujh [facility] CenterComment on above:Performed By: #### CMP #### [facility] [address] [address] [address] Yaritza BojorquezAnion gap [Moles/Vol]17.8 mmol/LNormalThe [facility] Comment on above:Performed By: #### CMP #### [facility] [address] [address] [address] Yaritza BojorquezAST [Catalytic activity/Vol]11 U/LCritically xci34-09Aeg [facility] CenterComment on above:Performed By: #### CMP #### [facility] [address] [address] [address] Yaritza BojorquezBilirubin [Mass/Vol]1.4 mg/dLCritically high0.2-1.0The [facility] CenterComment on above:Performed By: #### CMP #### [facility] [address] [address] [address] Yaritza BojorquezCalcium [Mass/Vol]9.3 mg/dLNormal8.5-10.1[facility] Comment on above:Performed By: #### CMP #### [facility] [address] [address] [address] Yaritza BojorquezChloride [Moles/Vol]98 mmol/WVefwcw46-288Apu [facility] Comment on above:Performed By: #### CMP #### [facility] [address] [address] [address] Yaritza BojorquezCO2 [Moles/Vol]19.1 mmol/LCritically low21.0-32.0The [facility] CenterComment on above:Performed By: #### CMP #### [facility] [address] [address] [address] Yaritza BojorquezCreatinine [Mass/Vol]0.95 mg/dLNormal0.55-1.02The [facility] CenterComment on above:Performed By: #### CMP #### [facility] [address] [address] [address] Vigil ChangEGFR-AF BURMESE>60Normal>=60The [facility] CenterComment on above:Performed By: #### CMP #### [facility] [address] [address] [address] Yaritza TafoyaGFR-NON AF BURMESE>60Normal>=60The [facility] CenterComment on above:Performed By: #### CMP #### [facility] [address] [address] [address] Yaritza BojorquezGlobulin (S) [Mass/Vol]3.6 g/dLNormalThAvita Health SystemComment on above:Performed By: #### CMP #### [facility] [address] [address] [address] Yaritza BojorquezGlucose [Mass/Vol]138 mg/dLCritically reks47-324Tjh [facility] CenterComment on above:Performed By: #### CMP #### [facility] [address] [address] [address] Yaritza BojorquezPotassium [Moles/Vol]2.9 mmol/LCritically low3.5-5.1The [facility] CenterComment on above:Performed By: #### CMP #### [facility] [address] [address] [address] Yaritza BojorquezProtein [Mass/Vol]8.1 g/dLNormal6.4-8.2The [facility] Comment on above:Performed By: #### CMP #### [facility] [address] [address] [address] Yaritza BojorquezSodium [Moles/Vol]132 mmol/LCritically tnr468-270Wqh [facility] CenterComment on above:Performed By: #### CMP #### [facility] [address] [address] [address] Yaritza BojorquezUrea nitrogen [Mass/Vol]8.0 mg/dLNormal7.0-18.0The [facility] CenterComment on above:Performed By: #### CMP #### [facility] [address] [place] [address] Dr. Yaritza Barahona nitrogen/Creatinine [Mass ratio]8.4 mg/mgNormalThe [facility] CenterComment on above:Performed By: #### CMP #### [facility] [address] [address] [address] Yaritza Justin MICROSCOPIC ONLYon 64-81-0978OJMEXMFQYBKADKXQSibmkpouAULN SEENSumma Health [facility] CampusComsparrow ionia hospital on above:Performed By: #### NENO UMICRO #### [facility] [address] [address] [address] Yaritza Hidalgo identified Cx Nom (U)INDICATEDNormalThe [facility] CenterComment on above:Performed By: #### NENO UMICRO #### [facility] [address] [place] [address] Dr. Yaritza RosenNONSandoval SEENNormalNONE SEENSumma Health Akron CampusComsparrow ionia hospital on above:Performed By: #### NENO UMICRO #### [facility] [address] [place] [address] Dr. Yaritza Riveraystals LM Nom (Urine sed)NONE SEENNormalNONE SEENThe [facility] CenterComsparrow ionia hospital on above:Performed By: #### NENO UMICRO #### [facility] [address] [place] [address] Dr. Vigil ChangEpithelial cells LM Ql (Urine sed)MANYAbnormalNONE SEEN /RAREThe [facility] CenterComsparrow ionia hospital on above:Performed By: #### NENO UMICRO #### [facility] [address] [place] [address] Dr. Yaritza LeeMALLAbnormalNONE SEENSumma Health Akron CampusComsparrow ionia hospital on above:Performed By: #### NENO UMICRO #### [facility] [address] [place] [address] Dr. Yaritza BojorquezHrwznEKN3-8Gjxdytsz9-6SgrNewark Hospital on above:Performed By: #### NENO UMICRO #### [facility] [address] [place] [address] Dr. Yaritza BojorquezWBC5-10AbnormalNONE SEENSumma Health Akron CampusComsparrow ionia hospital on above: Performed By: #### NENO UMICRO #### [facility] [address] [place] [address] Dr. Yaritza BojorquezXR ABD FLAT UP_PA Coreen 07-81-2036DZ ABD FLAT UP_PA CHEXAMINATION: XR ABD FLAT [...] Electronically authenticated by: MACK SAMUELS Date: 2022-03-03 07:46NoMount Carmel Health SystemCovid-19 PCR ([facility]ITALTB)on 70-35-0866VDBS-CoV-2 (COVID-19) RNA KOLE+probe Ql (Unsp spec)Not detectedNormalNOT DETECTEDThe [facility] Comment on above:Result Comment: This test is not yet approved or cleared by the [place] FDA. When there are no FDA-approved or cleared tests available, and other criteria are met, FDA can make tests available under an emergency access mechanism called an Emergency Use Authorization (EUA). The EUA for this test is supported by the [place] of Health and Human Service's (HHS's) declaration [...] consistent with SARS-CoV-2.Performed By: #### CVDTBH #### [facility] [address] [address] [address] Yaritza BojorquezProvider Note - ED v2on 29-74-0692Yadcuqsb Note - ED g8Emduuagd Note - ED v2: Chart Review: ED [...] No Current Medications SIGNIFICANT EVENTS: Immunizations Description:Tdap LEGAL STENOGRAPHER: Is : no(1) Is : no(1) RESULTS/VITAL SIGNS VITAL SIGNS: T PRBP SpO2O2(LPM) %FiO2 Method 22-Jun-2019 18:54:00-1502013/69 99 room air, no respiratory support 22-Jun-2019 18:07:00-36.77549096/71 97 room air, no respiratory support MEDICAL [...] Final Verification: completed Procedure performed by: wv Manager Concrete(s): none Findings: grossly normal anatomy Specimen: no [...] Data Referenced From Triage - ED 22-Jun-2019 18:07[facility] HealthRisk Screen - Adult Emergencyon 99-44-3033Olgd Screen - Adult Emergency Preferred Language: Preferred [...] Communicatenone Learning Preferencesaudio Cultural Considerationsnone Developmental Considerationsnone Jew Considerationsnone Learning Assessment (Other Learner): Learning Assessment (Other Learner): Other learner availableno Pressure Injury/TB/Substance: Pressure Injury: Pressure Injury Present on Admissionno Do you have a coughno Substance Use Current or Former Historynever: Cigarette/Tobacco, e-Cigarette/Vaping, Alcohol, Street Drugs Admission Risk Screen: Significant IndicatorsComplete CAGE: CAGE: [place] [place] yes C: Have you ever felt you needed to Cut down on your drinking: no A: Have people Annoyed you by criticizing your drinking: no G: Have you ever felt Guilty about drinking: no E: Have you ever felt you needed a drink first thing in the morning (Eye-inter com installer) to steady your nerves or to get rid of hangover: no Electronic Signatures: Mehdi Chaney (MALU) (Signed 22-Jun-2019 18:11) Authored: Preferred Language, Advanced Directives, Family Violence Adult, Learning Assessment (Patient), Learning Assessment (Other Learner), Pressure Injury/TB/Substance, CAGE Last Updated: 22-Jun-2019 18:11 by Mehdi Chaney)[facility]compass HealthDanishiayola - Desi 82-53-5957Owakdd - Maryann Triage: The patient and/or guardian [...] than 3 weeks: no Travel outside of [facility]: no Allergies: yes Last menstrual period: [...] Last Updated: 22-Jun-2019 18:40 by Nitin Singer (AYALA)[facility] Vital Signs Date TimeVital SignValuePerforming NshubnogpVsiyshui96-32-7317 09:45-0400Body mass index (BMI) [Ratio]38.91 kg/m2Amy Juan PA Work Phone: [phone] [place], [place] [address]Wfxzghykub26-85-4976 09:45-0400Body nsfumw949.05 kgDeyanira Martinez PA Work Phone: [phone] [place], [place] [address]Gbjpyxhpub79-64-0920 09:45-0400Diastolic blood mm[Hg]Deyanira Martinez PA Work Phone: [phone] [place], [place] [address]Yffdthrzmz57-49-9101 09:45-0400Systolic blood lyqpbdtw773 mm[Hg]Deyanira Martinez PA Work Phone: [phone] [place], [place] [address]Zexnpkkang25-70-6434 10:26-0400Body mass index (BMI) [Ratio]37.94 kg/m2Amy Juan PA Work Phone: [phone] [place], [place] [address]Cxqkboaqgz98-51-5648 10:26-0400Body lnuglj433.42 kgDeyanira Martinez PA Work Phone: [phone] [place], [place] [address]Usohznzvmw24-51-0962 10:26-0400Diastolic blood qeorrngf81 mm[Hg]Deyanira Martinez PA Work Phone: [phone] [place], [place] [address]Tdwcajbyio67-36-5344 10:26-0400Systolic blood mm[Hg]Deyanira Martinez PA Work Phone: [phone] [place], [place] [address]Alultezvyq76-62-3200 09:50-0400Body mass index (BMI) [Ratio]37.61 kg/e7Swdyp Angie DO Work Phone: [phone] [place], [place] [address]Btazsdodpm59-51-6789 09:50-0400Body bktcny292.51 kgCorey Angie DO Work Phone: [phone] [place], [place] [address]Jcmqroonxd38-95-3962 09:50-0400Diastolic blood xlnidibm09 mm[Hg]Jaspreet Angie DO Work Phone: [phone] [place], [place] [address]Xawfrkpccv37-00-4833 09:50-0400Systolic blood tpnxoeoh229 mm[Hg]Jaspreet Angie DO Work Phone: [phone] [place], [place] [address]Aywztbuayl07-25-6520 11:40-0400Body mass index (BMI) [Ratio]37.28 kg/z6Mgzdqhmg [place] DEFENSIVE FIRE CONTROL SYSTEMS OPERATOR Work Phone: [facility] MedicineQbknviycpx51-06-6841 11:40-0400Body zqeajj608.61 kgWilly Avila DEFENSIVE FIRE CONTROL SYSTEMS OPERATOR Work Phone: [facility] MedicineRfwouysppp46-14-7598 11:40-0400Diastolic blood yjapauxx83 mm[Hg]Willy Avila DEFENSIVE FIRE CONTROL SYSTEMS OPERATOR Work Phone: [phone]-[facility] MedicineNgpehqetxs27-97-2505 11:40-0400Systolic blood sicubhhn665 mm[Hg]Willy Avila DEFENSIVE FIRE CONTROL SYSTEMS OPERATOR Work Phone: [phone])351-[address] [place], [place] [address]Xrhuxxfmzs88-21-3272 10:03-0400Body mass index (BMI) [Ratio]36.08 kg/m2Deyanira KABA Work Phone: [phone])987-[facility] MedicineIpvcyprmbc45-28-1462 10:03-0400Body yztslt73.34 kgAmy Juan KABA Work Phone: [phone])289-[facility] CenterFre[facility] & Sports MedicineHipwveucns00-85-2233 10:03-0400Diastolic blood olxxgapx32 mm[Hg]Deyanira Martinez PA Work Phone: 1([phone])341-[address] [place], [place] [address]Nzswmcttfl31-11-4692 10:03-0400Systolic blood iqooazie725 mm[Hg]Deyanira Martinez PA Work Phone: 1([phone])331-[address] [place], [place] [address]Yyxuikfche48-25-4258 15:05-0400Body mass index (BMI) [Ratio]35.01 kg/b1Mqhwa Angie DO Work Phone: [phone])523-[facility] MedicineVtajnjspqi71-61-0952 15:05-0400Body jmnyzj37.44 kgCorey Angie DO Work Phone: [phone]-[facility] MedicinePnlaqiljed02-42-0381 15:05-0400Diastolic blood mm[Hg]Jaspreet Angie DO Work Phone: [phone])587-[facility] MedicineXumhhakjgl93-41-2997 15:05-0400Systolic blood dlnayixr690 mm[Hg]Jaspreet Angie DO Work Phone: [phone])843-[facility] MedicineLzzwhehykj26-06-9935 10:41-0400Body mass index (BMI) [Ratio]33.91 kg/m2Deyanira Martinez PA Work Phone: [facility] MedicineWekwgjfkoi46-85-5513 10:41-0400Body vahgtj69.44 kgDeyanira Martinez PA Work Phone: [facility] MedicineLuslvuiacb99-15-0097 10:41-0400Diastolic blood mfwvcsvu61 mm[Hg]Deyanira Martinez PA Work Phone: [facility] MedicineDevrtcdygt42-36-9279 10:41-0400Systolic blood esvkyupt170 mm[Hg]Deyanira Martinez PA Work Phone: [facility] MedicineRrikgvyjcv10-46-6187 10:50-0400Body mass index (BMI) [Ratio]33.35 kg/c2Hhenx Angie DO Work Phone: [phone])681-[address] [place], [place] [address]Xelixheqhl47-40-0139 10:50-0400Body ndvwev08.9 kg Jaspreet Angie DO Work Phone: [facility] MedicineJykdbaigiu76-10-1996 10:50-0400Diastolic blood vevcopzk85 mm[Hg]Jaspreet Angie DO Work Phone: [phone])317-[address] [place], [place] [address]Rfqiltqwcy11-97-5127 10:50-0400Systolic blood oikjqhep295 mm[Hg]Jaspreet Angie DO Work Phone: [phone])346-[address] [place], [place] [address]Ombjwcmwkl23-63-9073 11:16-0400Body mass index (BMI) [Ratio]31.62 kg/t3Anitx Angie DO Work Phone: [phone] [place], [place] [address]Ntgvskvwmj23-30-4080 11:16-0400Body xlijox37.18 kgCorey Angie DO Work Phone: [phone]-[facility] MedicineGrbbeuwdhj46-76-5557 11:16-0400Diastolic blood fhptrlco56 mm[Hg]Jaspreet Angie DO Work Phone: 1(180)657-[address] [place], [place] [address]Vkdvcyflhk79-66-5855 11:16-0400Systolic blood mm[Hg]Jaspreet Angie DO Work Phone: [facility] MedicineLnadqvcakw18-70-7550 10:57-0400Body mass index (BMI) [Ratio]31.53 kg/k4NmbqtpxiWilly Avila DEFENSIVE FIRE CONTROL SYSTEMS OPERATOR Work Phone: 1(455)970-[address] [place], [place] [address]Oqrdwxayxe80-27-4946 10:57-0400Body osamxx73.96 kgWilly Avila DEFENSIVE FIRE CONTROL SYSTEMS OPERATOR Work Phone: [phone])529-[address] [place], [place] [address]Aynoxjsocy64-57-8093 10:57-0400Diastolic blood hgbrpiro26 mm[Hg]Willy Mirandaerly DEFENSIVE FIRE CONTROL SYSTEMS OPERATOR Work Phone: 1(297)937-[address] [place], [place] [address]Ycrorfashq54-15-6670 10:57-0400Systolic blood uqastakt746 mm[Hg]Willy Avila DEFENSIVE FIRE CONTROL SYSTEMS OPERATOR Work Phone: [phone])[phone]05-30-2025 11:42-0400Diastolic blood eklqppne92 mm[Hg][facility]05-30-2025 11:42-0400Systolic blood enrewnam416 mm[Hg][facility]05-30-2025 11:21-0400Body mass index (BMI) [Ratio]32.01 kg/m2[facility]05-30-2025 11:21-0400Body ysuvec20.26 kg[facility]04-28-2025 13:51-0400Body mass index (BMI) [Ratio]31.35 kg/n0Mjtqn Angie DO Work Phone: [phone])289-[address] [place], [place] [address]Lcwixldbro38-80-9839 13:51-0400Body .46 kgCorey Angie DO Work Phone: 1(183)662-[address] [place], [place] [address]Wnqczlfbea10-59-9946 13:51-0400Diastolic blood tanmgpnf58 mm[Hg]Jaspreet Angie DO Work Phone: 1(394)962-[address] [place] [address]-28-2025 13:51-0400Systolic blood tuvcqsfd565 mm[Hg]Jaspreet Angie DO Work Phone: [phone])723-[address] [place], [place] [address]Mcwbdeslnz52-86-3837 22:07-0500Diastolic blood jgpvigwf49 mm[Hg]PHYSICIAN [facility]12-15-2023 22:07-0500Heart rate71 /minPHYSICIAN [facility] 08-11-2023 22:07-0500Respiratory rate18 /minPHYSICIAN NO [facility]12-15-2023 22:07-9638QzY1% (BldA) [Mass fraction]99 % PHYSICIAN NO [facility]12-15-2023 22:07-0500 Systolic blood bbtbmups146 mm[Hg]PHYSICIAN NO [facility]12-15-2023 19:17-0500Body dauhos737.18 cmPHYSICIAN NO [facility]12-15-2023 19:17-0500Body ejaeti39.73 kgPHYSICIAN NO [facility] Encounters Encounter DateEncounter TypeCare ProviderFacilityStart: 07-03-2025 End: 98-31-5118Dbxdcttou Result EncounterCorey Angie DO Work Phone: noms External Department UnsolicitedStart: 07-03-2025 End: 17-19-1104Nrnwpuntm Result EncounterCorey Angie DO Work Phone: noms External Department UnsolicitedStart: 07-01-2025 End: 25-02-2026Slahvfmvt Result EncounterCorey Angie DO Work Phone: noms External Department UnsolicitedStart: 07-01-2025 End: 41-15-1316Xbaesqwcs Result EncounterCorey Angie DO Work Phone: noms External Department UnsolicitedStart: 06-30-2025 End: 05-66-1706Ltgybpnti Result EncounterCorey Angie DO Work Phone: noms External Department UnsolicitedStart: 06-30-2025 End: 50-26-9227Mwqkxottc Result EncounterCorey Angie DO Work Phone: noms External Department UnsolicitedStart: 06-26-2025 End: 19-78-4540Nfqvhz Effie KABA Work Phone: noms [facility]YNStart: 06-26-2025 End: 68-92-6175Gwcmgbfelton KABA Work Phone: NOMS [facility] OBGYNStart: 06-26-2025 End: 71-02-3947yftmsfcyjxFUV RAMEYNot AvailableStart: 06-26-2025 End: 53-76-2843Bqvtth outpatient visit 15 minutesAmy Juan SENDY Work Phone: NOMS [place] OBGYNComment on above:39 weeks gestation of ([facility]); Third trimester ([facility])Start: 06-23-2025 End: 79-31-2936Ijbskzxjm Result EncounterCorey Angie DO Work Phone: NOMS External Department UnsolicitedStart: 06-23-2025 End: 32-74-3524Mkuwkhwhr Result EncounterCorey Angie DO Work Phone: NOMS External Department UnsolicitedStart: 06-19-2025 End: 39-98-8704Udznyz aaronRichard KABA Work Phone: NOMS [facility]BGYNStart: 06-19-2025 End: 24-00-4591Reaytt flowsRichard Juan PA Work Phone: NOMS [facility] OBGYNStart: 06-19-2025 End: 07-44-2510ytozcridlnLCF JUANNot AvailableStart: 06-19-2025 End: 43-69-8627Cumkjx outpatient visit 15 minutesAmy Floyds Knobs PA Work Phone: NOMS [facility] OBGYNComment on above:Third trimester ([facility]); 38 weeks gestation of ([facility])Start: 06-12-2025 End: 39-70-3189Jdoxjx flowsheetCorey Angie DO Work Phone: NOMS [facility] OBGYNStart: 06-12-2025 End: 98-96-3073Izxvgt flowsheetCorey Angie DO Work Phone: NOMS [facility]BGYNStart: 06-12-2025 End: 37-23-2906mxlcdunflyGRHVT FAZIONot AvailableStart: 06-12-2025 End: 14-12-2966Jywipi outpatient visit 15 minutesCorey Angie DO Work Phone: NOVC [facility] OBGYNComment on above:Third trimester ([facility]); 37 weeks gestation of ([facility])Start: 06-02-2025 End: 72-64-9014Bcmzqohdd Result EncounterCorey Angie DO Work Phone: noms External Department UnsolicitedStart: 06-02-2025 End: 28-15-3341Jbqwbhuqz Result EncounterCorey Nagie DO Work Phone: noms External Department UnsolicitedStart: 06-02-2025 End: 34-80-8551lquoeyoaueTLOUQXOC EBERLYNot AvailableStart: 06-02-2025 End: 82-25-1295Ctxypp outpatient visit 15 minutesWilly Avila DEFENSIVE FIRE CONTROL SYSTEMS OPERATOR Work Phone: noms [facility]onica OBGYNComment on above:35 weeks gestation of ([facility]); Third trimester ([facility])Start: 05-26-2025 End: 14-58-5694Syetqmnii Result EncounterCorey Angie DO Work Phone: noms External Department UnsolicitedStart: 05-26-2025 End: 61-79-2272Geazddmao Result EncounterCorey Angie DO Work Phone: noms External Department UnsolicitedStart: 05-20-2025 End: 53-05-5855Ynrppwbzz Result EncounterCorey Angie DO Work Phone: noms External Department UnsolicitedStart: 05-20-2025 End: 96-94-4690Rivdglmdm Result EncounterCorey Angie DO Work Phone: noms External Department UnsolicitedStart: 05-19-2025 End: 64-92-1421Lnxmykgxg Result EncounterCorey Angie DO Work Phone: noms External Department UnsolicitedStart: 05-19-2025 End: 53-10-4352Npmcmxbko Result EncounterCorey Angie DO Work Phone: NOMS External Department UnsolicitedStart: 05-15-2025 End: 08-32-4405Jqjooz aaronRichard KABA Work Phone: NO [facility]BGYNStart: 05-15-2025 End: 32-13-3010Yylsnx aaronRichard KABA Work Phone: NO [facility]YNStart: 05-15-2025 End: 36-08-5290nhcditupgpQUM JUANNot AvailableStart: 05-15-2025 End: 72-68-5160Psmoip outpatient visit 15 minutesDeyanira KABA Work Phone: NOLJ [facility] OBGYNComment on above:33 weeks gestation of ([facility]); Third trimester ([facility]); Gestational diabetes mellitus (GDM), antepartum, gestational diabetes method of control unspecified([facility])Start: 04-30-2025 End: 30-95-2168Bwxqag outpatient visit 15 minutesCorey Angie DO Work Phone: NOMS [facility]onica OBGYNComment on above:31 weeks gestation of ([facility]); Third trimester ([facility]); Gestational diabetes mellitus (GDM), antepartum, gestational diabetes method of control unspecified([facility])Start: 04-30-2025 End: 86-91-3050dhcngfeouaLHKME FAZIONot AvailableStart: 04-17-2025 End: 49-30-9202Bzryge aaronRichard KABA Work Phone: NO [facility]BGYNStart: 04-17-2025 End: 00-11-9865Kcxtby aaronRichard KABA Work Phone: NOMS [facility] OBGYNStart: 04-17-2025 End: 14-43-7498tdelfsvocxMDP APRILEYNot AvailableStart: 04-17-2025 End: 83-62-1646Dqvmdu outpatient visit 15 minutesDeyanira KABA Work Phone: NOFA [facility] OBGYNComment on above:Size of fetus inconsistent with dates in second trimester ([facility]) (Primary Dx); Third trimester ([facility]); 29 weeks gestation of ([facility])Start: 04-03-2025 End: 59-11-0673Pofyxy flowsheetCorey Angie DO Work Phone: NOQB [facility]BGYNStart: 04-03-2025 End: 75-24-0653Walioc flowsheetCorey Angie DO Work Phone: NOPV [facility] OBGYNStart: 04-03-2025 End: 4655vtdttirftnASLGR FAZIONot AvailableStart: 04-03-2025 End: 53-01-8935Lworju outpatient visit 15 minutesCorey Angie DO Work Phone: NOXK [facility] OBGYNComment on above:Second trimester ([facility]); 27 weeks gestation of ([facility])Start: 03-28-2025 End: 85-92-1695Oumry abstractingScanning Provider ExternalMaternal- Medicine at [facility] Hospitaltart: 03-21-2025 End: 33-87-4376Hwkpqejqy Result EncounterCorey Angie DO Work Phone: noms External Department UnsolicitedStart: 03-21-2025 End: 82-61-7882Usczkmfjk Result EncounterCorey Angie DO Work Phone: noms External Department UnsolicitedStart: 03-19-2025 End: 84-83-6691nulrshscbiDYCQP FAZIONot AvailableStart: 03-06-2025 End: 79-84-9634Jdvambdig Result EncounterCorey Angie DO Work Phone: noms External Department UnsolicitedStart: 03-06-2025 End: 17-99-4555Ibyvwvdzr Result EncounterCorey Angie DO Work Phone: NOMS External Department UnsolicitedStart: 03-05-2025 End: 65-82-5477Jywawy flowsheetCorey Angie DO Work Phone: NOMS BCP OBStart: 03-05-2025 End: 88-09-3765Bwnvid flowsheetCorey Angie DO Work Phone: NOHB BCP OBStart: 03-05-2025 End: 85-28-7740Emnqvggsf Result EncounterCorey Angie DO Work Phone: NOFA External Department UnsolicitedStart: 03-05-2025 End: 59-64-5369Zyernga encounter procedureCorey Angie DO Work Phone: NOMS HealthcareStart: 03-05-2025 End: 24-80-8140Xdnbpqyt preventive med est patient 18-39 yrsCorey Angie DO Work Phone: noms BCP OBComment on above:Second trimester ([facility]); 23 weeks gestation of ([facility]); Diabetes mellitus screening; Well woman exam with routine gynecological exam; Other insomniaStart: 03-05-2025 End: 17-70-0507jhbjsgjtsrSWAEU FAZIONot AvailableStart: 02-19-2025 End: 44-08-6214eenvbcgaxbHXIAZQOM EBERLYNot AvailableStart: 02-12-2025 End: 98-00-4936kdsoszblkaJHPTL FAZIONot AvailableStart: 01-31-2025 End: 63-42-2370Oqpmhndqm Result EncounterCorey Angie DO Work Phone: NOMS External Department UnsolicitedStart: 01-31-2025 End: 68-13-1623Nznesrxjq Result EncounterCorey Angie DO Work Phone: noMS External Department UnsolicitedStart: 01-29-2025 End: 68-24-7236Bjueep flowsRico Avila DEFENSIVE FIRE CONTROL SYSTEMS OPERATOR Work Phone: noms BCP OBStart: 01-29-2025 End: 28-88-7131Cdmgea flowsRico Avila DEFENSIVE FIRE CONTROL SYSTEMS OPERATOR Work Phone: NOMS BCP OBStart: 01-29-2025 End: 10-49-8507Dovsmjcf Result EncounterWilly Avila DEFENSIVE FIRE CONTROL SYSTEMS OPERATOR Work Phone: NOMS External Department UnsolicitedStart: 01-29-2025 End: 82-10-8302qfzgssmdfuFDJGOUWX EBERLYNot AvailableStart: 01-29-2025 End: 01-35-2279Tdaorr outpatient visit 15 minutesWilly Avila DEFENSIVE FIRE CONTROL SYSTEMS OPERATOR Work Phone: NOMS BCP OBComment on above:Second trimester ; 18 weeks gestation of pregnancyStart: 01-24-2025 End: 58-44-6599Pjrmza outpatient visit 5 minutesNoms Bcp Ob Angie NurseNOMS BCP OBComment on above:GA: 21m0vNbunh: 01-24-2025 End: 72-39-0928wqpqkkpayeOYTXN FAZIONot AvailableStart: 01-06-2025 End: 19-20-3133qrelyyuuguTcdrite Filomena MarkerFacility:[facility] Townshiptart: 01-06-2025 End: 61-88-3485Vhktenwj ReferredMelissa Marker DO Work Phone: [facility] Path Spec [facility] HospStart: 12-23-2024 End: 58-90-6010Fbvqkx flowsheetCorey Angie DO Work Phone: NOMS BCP OBStart: 12-23-2024 End: 25-88-5192Uvbbmg flowsheetCorey Angie DO Work Phone: NOMS BCP OBStart: 12-23-2024 End: 93-96-8800aojxlrmjksUQIOI FAZIONot AvailableStart: 12-23-2024 End: 87-48-7595Vouqbk outpatient visit 15 minutesCorey Angie DO Work Phone: NOMS BCP OBComment on above:Hyperemesis gravidarum; Follow-up examStart: 08-11-2023 End: 28-46-4304Pqtgronjo department patient visitPHYSICIAN NO FAMILYFirelands [facility] Work Phone: Start: 03-03-2022 End: 06-11-3498qoyeaayeatCS DOCTOR MISCFacility:G1Jobxc: 08-23-2021 End: 78-84-3392dwmzacgioaZYAVBW RODRIGUEZFacility:H1 Procedures DateProcedureProcedure DetailPerforming ClinicianStart: 35-05-1353IRT CBC WITH AUTO DIFFCorey Angie DO Work Phone: Start: 22-20-3543WVSM CBC WITH PLATELET NO DIFFERENTIALCorey Angie DO Work Phone: Start: 49-26-6381SH OB BPP W NON-STRESSCorey Angie DO Work Phone: Start: 68-13-8428GJTPOLEWNowcf Angie DO Work Phone: Start: 07-26-4596Wjlua dip stick/tablet rgnt non-auto w/o micrscpAmy Juan KABA Work Phone: Start: 61-29-9444PY OB BPP W NON-STRESSCorey Angie DO Work Phone: Start: 03-81-8483Srzsi dip stick/tablet rgnt non-auto w/o micrscpAmy Juan KABA Work Phone: Start: 74-16-1911Xgkfi dip stick/tablet rgnt non-auto w/o micrscpCorey Angie DO Work Phone: Start: 91-71-7071Lkfiu dip stick/tablet rgnt non-auto w/o micrscpKristina Austin TAPIA Work Phone: Start: 11-00-9186MI OB BPP W NON-STRESSCorey Angie DO Work Phone: Start: 25-55-0279PC OB BPP W NON-STRESSCorey Angie DO Work Phone: Start: 45-10-4928QN AMNIOTIC FLUID VOLUMECorey Angie DO Work Phone: Start: 35-58-7550OJ OB BPP W NON-STRESSCorey Angie DO Work Phone: Start: 68-94-9013Ymigb dip stick/tablet rgnt non-auto w/o micrscpAmy Juan PA Work Phone: Start: 41-28-7292Adxln dip stick/tablet rgnt non-auto w/o micrscpCorey Angie DO Work Phone: Start: 82-53-5566Bypqm dip stick/tablet rgnt non-auto w/o micrscpCorey Angie DO Work Phone: Start: 70-25-7939Oyqzb dip stick/tablet rgnt non-auto w/o micrscpCorey Angie DO Work Phone: Start: 01-46-9918YHGIPWW TOLERANCE 3 HOURCorey Angie DO Work Phone: Start: 78-02-0424Hqbfvnq tolerance test gtt 3 specimensNot In System Ref ProvStart: 04-25-0564XYBAMSO 1 HOURCorey Angie DO Work Phone: Start: 71-96-0776Kakgm dip stick/tablet rgnt non-auto w/o micrscpCorey Angie DO Work Phone: Start: 95-30-1094LFO,APTIMA HPV,AGE GDLNCorey Angie DO Work Phone: Start: 04-44-5307Nrkh ia hepatitis b surface antigen Not In System Ref ProvStart: 10-32-8325PHE TESTCorey Angie DO Work Phone: Start: 72-66-4925Bugwgfzo rubellaNot In System Ref ProvStart: 32-24-0373Zkhirnon screenScanning ExternalStart: 17-85-4669Dtym scrn 1+ class nonchromoNot In System Ref ProvStart: 81-96-2363Wbsinoemhf glycosylated k7nXavbdvrp Provider ExternalStart: 24-06-1367ZKW 1&2 AB/AG SCREEN (P24 AG)Not In System Ref ProvStart: 89-37-7599GXKV AND SCREENNot In System Ref ProvStart: 88-05-0148XHLIBPE TRACT INFECTION (HTRX)Willy Avila DEFENSIVE FI[employer] CONTROL SYSTEMS OPERATOR Work Phone: Start: 67-49-6520Ykzdn dip stick/tablet rgnt non-auto w/o micrscpWilly Avila DEFENSIVE FIRE CONTROL SYSTEMS OPERATOR Work Phone: Start: 30-57-0415Brlts dip stick/tablet rgnt non-auto w/o micrscpCorey Angie DO Work Phone: Start: 36-40-2988Gglai X-ray of right handPHYSICIAN NO FAMILYStart: 93-32-0674Rddnzguq tomography of abdomen and pelvis with contrast PHYSICIAN NO FAMILYStart: 25-66-3661PP cervical spine without contrastPHYSICIAN NO FAMILYStart: 69-66-5108RW of facial bones without contrastPHYSICIAN NO FAMILY Start: 56-88-9732VD of head without contrastPHYSICIAN NO FAMILYStart: 08-11-2023 CT of thorax with contrastPHYSICIAN NO FAMILYStart: 08-11-2023 End: 63-74-4610Cdtvi chest X-rayPHYSICIAN NO FAMILY Plan of Treatment DateCare ActivityDetailAuthorStart: 08-12-2025 End: 31-48-8329mftejdnhxq44/16/2025 10:30 AM EST Visit MATTIE VARGAS [address], [place] [id number] Deyanira Martinez PA [address] [address] MATTIE BLANDtart: 06-26-2025 End: 07-18-4752Rzvzfhm encounter nyaucssvl06/30/2025 9:20 AM EDT Routine NOMFerny VARGAS [address] [place], [id number] Deyanira Martinez, PA [address] [place], [place] [id number] NOMFerny Veronica OBGYNStart: 06-19-2025 End: 10-09-5636Pegvztr encounter nstxfntag19/23/2025 9:40 AM EDT Routine [facility] [address] [place], [id number] Deyanira Martinez, PA [address] [facility] [address] [place], [place] [id number] NOMFerny Veronica OBGYNStart: 06-12-2025 End: 64-93-7899Epljwip encounter /16/2025 9:40 AM EDT Routine NOMS Veronica OBGYCarlos Alberto [address] [place], [id number] Jaspreet Adams DO [address] [place] [place], [place] [id number] NOMFerny ChaparroQuincy OBGYNStart: 06-02-2025 End: 41-07-2650QIKDABY, GROUP B STREP WITH SUSCEPTIBLITYCULTURE, GROUP B STREP WITH SUSCEPTIBLITY Lab Routine Third trimester ([facility]) Expected: 06/02/2025, Expires: 06/02/2026[facility] Work Phone: comment on above:Expected: 06/02/2025, Expires: 06/02/2026Start: 06-02-2025 End: 52-63-1207Elhmzot encounter catdsjxvm93/06/2025 11:20 AM EDT Routine N[facility]Ferny [place] [facility] [address] [place] [phone] Willy Avila, DEFENSIVE FIRE CONTROL SYSTEMS OPERATOR [address] [facility] [address] [place] [phone] NOMFerny [place] OBGYNStart: 04-30-2025 End: 94-51-6226FL biophysical profile w non stress testUS biophysical profile w non stress test Imaging Routine Gestational diabetes mellitus (GDM),antepartum, gestational diabetes method of control unspecified ([facility]) Expected: 04/30/2025 (Approximate), Expires: 10/28/2025[facility] Work Phone: comment on above:Expected: 04/30/2025 (Approximate), Expires: 10/28/2025Start: 44-42-3675Dlnlzievk vaccinationInfluenza Vaccine [facility] Centertart: 04-17-2025 End: 93-55-2998EK for pregnancyUS OB follow up transabdominal approach Imaging Routine Size of fetus inconsistent with dates in second trimester ([facility]) Expected: 04/17/2025, Expires: 08/17/2025[facility] Work Phone: comment on above:Expected: 04/17/2025, Expires: 08/17/2025Start: 04-17-2025 End: 24-43-1332Apqbcrd encounter tyfbvlyzn88/21/2025 9:50 AM EDT Routine MATTIE VARGAS [address] [place], [id number] Deyanira Martinez PA [address] [facility] [address] [place] [address] MATTIE [place] OBGYNStart: 04-03-2025 End: 81-17-6371oruidfvaxq85/07/2025 1:30 PM EDT Support Visit Maternal- Medicine at [facility] [address] [place] [phone] Rimma Richey RN [address] [facility]ULSASandoval [facility], [address] [place] [address] [place] [address] Nikky Gonzalez LD Karl, Deborah, LD [address] [place] [address] [facility]art: 04-03-2025 End: 24-58-3426Qqoidlm encounter ymigjgrkb07/07/2025 10:40 AM EDT Routine [facility] OB [address], [place] [phone] Jaspreet Adams, DO [facility] [place] [address] N[facility] BCP OBStart: 03-19-2025 End: 38-05-4286Almjqrcdoigp / ancillary services auubzveajg49/23/2025 9:30 AM EDT Ancillary Procedure [facility] BCP OB [address] [place] [address] N[facility] BCP OBStart: 03-05-2025 End: 67-02-7018OBL panel - Blood by Automated countCBC Lab Routine Diabetes mellitus screening Expected: 03/05/2025 (Approximate), Expires: 03/05/2026NOMS HealthcareComment on above:Expected: 03/05/2025 (Approximate), Expires: 03/05/2026Start: 03-05-2025 End: 31-84-1790Nlnogthfgkw of glucose 1 hour after glucose challenge for glucose tolerance testGlucose tolerance, 1 hour Lab Routine Diabetes mellitus screening Expected: 03/05/2025 (Approximate), Expires: 03/05/2026NOMS HealthcareComment on above:Expected: 03/05/2025 (Approximate), Expires: 03/05/2026Start: 03-05-2025 End: 04-16-4589Raoevbp encounter kkzgjphqi19/09/2025 11:00 AM EDT Routine [facility] BCP OB [address] [place] [id number] Jaspreet Adams, DO [address] [place], [place] [id number] ArrivedNOMT BCP OBComment on above: ArrivedStart: 02-27-2025 End: 86-43-4406Fdefuky encounter jrugvlzsg39/03/2025 8:50 AM EDT Routine [facility] BCP OB [address] [address] [place] [place] [id number] Jaspreet Adams DO [address] [facility] [place] [address] NOMS BCP OBStart: 02-12-2025 End: 25-57-0635Uxksvesh Zahvutj9602/12/2025 9:00 AM EDT Clinical Support [facility] BCP OB [address] [place] [id number] N[facility] BCP OB Start: 01-29-2025 End: 94-62-2129Neipevs encounter adrtfeshi66/04/2025 10:20 AM EDT Routine [facility] BCP OB [address] [place] [phone] Willy Avila, [employer] [address] [facility] [place] [phone] NOMS BCP OBStart: 01-24-2025 End: 43-49-9955NFO/RhABO/Rh Lab Routine Missed menses , unspecified gestational age Expected: 01/24/2025 (Approximate), Expires: 01/24/2026[facility] HealthcareComment on above:Expected: 01/24/2025 (Approximate), Expires: 01/24/2026Start: 01-24-2025 End: 10-91-1168Ymyim fetoprotein, maternalAlpha fetoprotein, maternal Lab Routine Encounter for supervision of normal first in first trimester Expected: 01/24/2025 (Approximate), Expires: 03/26/2025[facility] HealthcareComment on above:Expected: 01/24/2025 (Approximate), Expires: 03/26/2025Start: 01-24-2025 End: 31-15-5790Kslep type and Indirect antibody screen panel - BloodType and screen Lab Routine Missed menses , unspecified gestational age Expected: 01/24/2025 (Approximate), Expires: 01/24/2026[facility] Work Phone: comment on above:Expected: 01/24/2025 (Approximate), Expires: 01/24/2026Start: 01-24-2025 End: 16-10-9541Mzrqe of abuse panel - Urine by Screen methodRapid drug screen, urine Lab Routine , unspecified gestational age Encounter for supervision of normal first in first trimester Expected: 01/24/2025 (Approximate), Expires: 01/24/2026[facility] HealthcareComment on above:Expected: 01/24/2025 (Approximate), Expires: 01/24/2026Start: 01-10-2025 End: 45-69-2990cddlxufygg91/16/2025 9:30 AM EDT Initial [facility] [address] [place] [address] [phone] BCP OBStart: 01-10-2025 End: 57-31-1584Xttnioewfqlh / ancillary services fanipzyrgr91/16/2025 9:00 AM EDT Ancillary Procedure [facility] OB [facility] [place] [place] [address] BQFI [facility] OBStart: 46-49-3938Spuedqdr identified in Urine by CultureUrine [facility] Hospitaltart: 05-64-5154Rdcil [facility] Hospitaltart: 20-69-7152Muxmmblrz for malignant neoplasm of cervixPap SmearProProtestant Deaconess Hospital SystemStart: 20-53-1054BXgN,Tdap and Td Vaccines (1 - Tdap)DTaP,Tdap and Td Vaccines (1 - Tdap)[facility] SystemStart: 16-88-5514Eynya BMI ScreeningAdult BMI ScreeningProProtestant Deaconess Hospital SystemStart: 06-33-9049Oslmwvemba ScreeningDepression ScreeningProProtestant Deaconess Hospital SystemStart: 41-97-9711Xmufbdg ScreeningTobacco ScreeningProProtestant Deaconess Hospital System Bacteria identified in Urine by CultureUrine culture Microbiology Routine Missed menses Ordered: 01/24/2025[facility] HealthcareComment on above:Ordered: 01/24/2025 Bacteria identified in Urine by CultureUrine culture Microbiology Routine Second trimester Ordered: 01/29/2025[facility] Work Phone: comment on above:Ordered: 01/29/2025BC W Auto Differential panel - BloodCBC and differential Lab Routine Missed menses , unspecified gestational age Ordered: 01/24/2025[facility] HealthcareComment on above:Ordered: 01/24/2025ytology Cervical or vaginal smear or scraping studyPap Smear Pathology and Cytology Routine Well woman exam with routine gynecological exam Ordered: 03/05/2025[facility] Healthcare Work Phone: comment on above:Ordered: 03/05/2025Hemoglobin A1c/Hemoglobin.total in BloodHemoglobin A1c Lab Routine Missed menses , unspecified gestational age Ordered: 01/24/2025[facility] HealthcareComment on above: Ordered: 01/24/2025Hepatitis B virus surface Ag [Presence] in Serum or Plasma by ImmunoassayHepatitis B surface antigen Lab Routine Missed menses , unspecified gestational age Ordered: 01/24/2025[facility] HealthcareComment on above: Ordered: 01/24/2025Hepatitis C virus Ab [Presence] in Serum or Plasma by ImmunoassayHepatitis C antibody Lab Routine Missed menses , unspecified gestational age Ordered: 01/24/2025[facility] HealthcareComment on above:Ordered: 01/24/2025HIV-1/HIV-2 antigen/antibody combination immunoassayHIV-1 and HIV-2 antibodies Lab Routine Missed menses , unspecified gestational age Ordered: 01/24/2025[facility] HealthcareComment on above:Ordered: 01/24/2025Patient EducationHead injury in adults Blunt Abdominal Trauma ED Blunt Chest Trauma ED [facility] Work Phone: [facility] referralU[facility] Work Phone: Reagin Ab [Presence] in Serum by RPRRPR Lab Routine Missed menses , unspecified gestational age Ordered: 01/24/2025[facility] HealthcareComment on above:Ordered: 01/24/2025Rubella antibody, IgGRubella antibody, IgG Lab Routine Missed menses , unspecified gestational age Ordered: 01/24/2025[facility] HealthcareComment on above:Ordered: 01/24/2025 Immunizations Immunization DateImmunizationNotesCare ZhzankajPxbslbhr92-03-2504ahxuqtt toxoid, reduced diphtheria toxoid, and acellular pertussis vaccine, adsorbedPHYSICIAN NO [facility] Payers DatePayer CategoryPayerPolicy [id number] Health InsuranceCARESOURCE MEDICAID [id number] [id number] [id number] 2..1.330746.3.57[id number] 2..1.824758.3.57[id number] ..1.370645.3.579.2.514726-20-8103Unxjybr2088 2..1.397148.3.57[id number] 2..1.445120.3.57[id number] 2.16.840.1.890680.3.57[id number] 2.840.1.707933.3.57[id number] 2.840.1.510170.3.57[id number] 2.0.1.156624.3.57[id number] 2.0.1.578296.3.57[id number] 2.0.1.241669.3.57[id number] 2.0.1.285636.3.57[id number] 2.0.1.378660.3.57[id number] 2..1.751933.3.579.[id number] 2.0.1.417431.3.57[id number] 2..1.449106.3.579.2.658306-57-5207Jljuken1239111 2.0.1.250603.3.579.2.[id number] 2..1.246427.3.579.2.554212-16-7952Zzehqcg956095460318QhosdjhNpqupiu Auto/[id number] 9881t5j6-n894-24p7-421u-6xf84l153h5wHepjqwyPOAH/HFA/FAP Qbjiae66j3k454-n737-79be-[id number] 2.16.840.1.227460.3.579.2.531UnknownRegular Auto/Vwxvdmujl82-8837147 9xv00t60-392m-788r-d9f2-2e6kp8032979PscacyrBGFR/HFA/FAP [id number] 23133q81-e527-9d3l-412x-tm7k52syl8iu Social History DateTypeDetailFacilityStart: 08-11-2023 End: 77-19-3927Ktytjdj smoking status NHISNever smoked tobacco (finding) [facility] Townshiptart: 40-91-1602Bum Assigned At BirthFeTogus VA Medical CenterTobasaint [facility] smoking status NHISTobacco smoking consumption unknownVALLEY VIEW MEDICAL [facility]ENTER HealthcareStart: 06-75-5700Hiyqdj identityIdentifies as female gender (finding)[facility] HealthcareStart: 27-17-5039Rswpcn orientationNot on [facility] Work Phone: Start: 01-07-2025 End: 91-92-9331SngJpgdfj (finding)[facility] Townshiptart: 37-66-4611UqyikascaNQNQ HealthcareStart: 84-04-3394Joj assigned at birthNot on [facility] SystemStart: 70-41-5879Gldislr of Social functionVALLEY VIEW MEDICAL CENTER Healthcare Work Phone: Start: 86-53-5664KctCknjhrYSJO Healthcare Medical Equipment Procedure CodeEquipment CodeEquipment Original TextEquipment IdentifierDates1 strip by In Vitro route Daily Use in the morning prior to breakfast, 1 hour after each meal for atotal of 4times daily.[id number]: 03-24-2025 End: each by In Vitro route Daily Use to check FSBS four times daily [id number]: 03-24-2025 End: 04-23-2025 Clinical Notes 12-23-2024 to 06-26-2025 Note Date & VdkdIopjXzzczpvx13-37-9559 History of Present illness Narrative* SENDY Fan [...] nursing note reviewed. Exam conducted with a risk consultant present. Vitals: Estimated body mass index is 38.91 kg/m as calculated from the following: Height as of 21: 5' 5 . Weight as of this encounter: 233 lb 12.8 oz. BP: 130/80 Patient's last menstrual period was 10/04/2024 (approximate). Assessment/Plan ICD-10-CM 1. 39 weeks gestation of ([facility]) Z3A.39 POCT urinalysis dipstick manually resulted 2. Third trimester ([facility]) Z34.93 POCT urinalysis dipstick manually resulted Return [...] behalf of: SENDY Fan documented in this encounterFreeman Orthopaedics & Sports MedicineIpkscxbprf61-13-4622 History of Present illness Narrative* SENDY Fan [...] ASSESSMENT & PLAN ICD-10-CM 1. Third trimester ([facility]) Z34.93 2. 38 weeks gestation of ([facility]) Z3A.38 POCT urinalysis dipstick manually resulted Return [...] behalf of: SENDY Fan documented in this encounterFreeman Orthopaedics & Sports MedicineSmlawbxscu31-26-3864 History of Present illness Narrative* Nissa Matt [...] nursing note reviewed. Exam conducted with a risk consultant present. Vitals: Estimated body mass index is 37.61 kg/m as calculated from the following: Height as of 12/01/20: 5' 5 . Weight as of this encounter: 226 lb. BP: 128/72 Patient's last menstrual period was 10/04/2024 (approximate). ASSESSMENT & PLAN ICD-10-CM 1. Third trimester ([facility]) Z34.93 POCT urinalysis dipstick manually resulted 2. 37 weeks gestation of ([facility]) Z3A.37 Patient presents today for a routine [...] surgical history on file. documented in this encounterFreeman Orthopaedics & Sports MedicineKqfabwipto27-93-8913 History of Present illness Narrative* Willy Avila [...] nursing note reviewed. Exam conducted with a risk consultant present. Vitals: Estimated body mass index is 37.28 kg/m as calculated from the following: Height as of 21: 5' 5 . Weight as of this encounter: 224 lb. BP: 126/80 Patient's last menstrual period was 10/04/2024 (approximate). ASSESSMENT & PLAN ICD-10-CM 1. 35 weeks gestation of ([facility]) Z3A.35 POCT urinalysis dipstick manually resulted 2. Third trimester ([facility]) Z34.93 CULTURE, GROUP B STREP WITH SUSCEPTIBLITY [...] of: Willy Avila NP documented in this encounterFreeman Orthopaedics & Sports MedicineQcmjyaklkj33-96-0250 History of Present illness Narrative* SENDY Fan [...] to check FSBS. Blood Glucose Monitoring Suppl (RECUPYL-Swarm Mobile Glucometer) w/Device kit 1 kit, Does not [...] PLAN ICD-10-CM 1. 33 weeks gestation of ([facility]) Z3A.33 POCT urinalysis dipstick manually resulted 2. Third trimester ([facility]) Z34.93 POCT urinalysis dipstick manually resulted 3. Gestational diabetes mellitus (GDM), antepartum, gestational diabetes method of control unspecified ([facility]) O24.419 Return OB: Patient presents today for [...] behalf of: SENDY Fan documented in this encounterFreeman Orthopaedics & Sports MedicineEbanwsmigy21-04-0922 History of Present illness Narrative* Rhael Pendleton, LORRAINE - 04/30/2025 3:00 PM EDT Reason for [...] nursing note reviewed. Exam conducted with a risk consultant present. Vitals: Estimated body mass index is 35.01 kg/m as calculated from the following: Height as of 12/01/20: 5' 5 . Weight as of this encounter: 210 lb 6.4 oz. BP: 120/70 Patient's last menstrual period was 10/04/2024 (approximate). ASSESSMENT & PLAN ICD-10-CM 1. 31 weeks gestation of ([facility]) Z3A.31 POCT urinalysis dipstick manually resulted 2. Third trimester ([facility]) Z34.93 POCT urinalysis dipstick manually resulted 3. Gestational diabetes mellitus (GDM), antepartum, gestational diabetes method of control unspecified ([facility]) O24.419 US biophysical profile w non stress [...] of: Jaspreet Adams DO documented in this encounterFreeman Orthopaedics & Sports MedicineNuubttzjzg28-23-4098 History of Present illness Narrative* SENDY Fan [...] ASSESSMENT & PLAN ICD-10-CM 1. Third trimester ([facility]) Z34.93 POCT urinalysis dipstick manually resulted 2. 29 weeks gestation of ([facility]) Z3A.29 POCT urinalysis dipstick manually resulted Return [...] behalf of: SENDY Fan documented in this encounterFreeman Orthopaedics & Sports MedicineCdtkqilpdw34-87-2585 History of Present illness Narrative* Nissa Matt, SLAB PULLER - 04/03/2025 10:40 AM EDT Reason for Appointment: Patient ID: Chente Gonzalez is a 29 y.o. female who presents for Routine Visit Patient presents today for Return OB appointment. MEDICATIONS Current Outpatient Medications Medication Instructions Alcohol Swabs (Alcohol Prep Pad) 70 % pads 1 Pad, Topical, Daily, Use four times daily to check FSBS. Blood Glucose Monitoring Suppl (D-Swarm Mobile Glucometer) w/Device kit 1 kit, Does not [...] nursing note reviewed. Exam conducted with a risk consultant present. Vitals: Estimated body mass index is 33.35 kg/m as calculated from the following: Height as of 12/01/20: 5' 5 . Weight as of this encounter: 200 lb 6.4 oz. BP: 130/72 Patient's last menstrual period was 10/04/2024 (approximate). ASSESSMENT & PLAN ICD-10-CM 1. Second trimester ([facility]) Z34.92 Urine dip 2. 27 weeks gestation of ([facility]) Z3A.27 Urine dip Patient presents today for a routine obstetrics appointment. Patient is currently 27w2d with a Estimated Date of Delivery: 07/01/25. Patient brought in FSBS logs for review and patient still desires to hold off on [facility] referral at this time, referral was previously sent on 03/24/25 and when c ontacted by [facility] patient will inform them that she will postpone scheduling at this time. Patient toreturn to clinic in 2 weeks for routine OB appointment. Documented by Nissa Matt LPN on behalf of: Jaspreet Adams DO documented in this encounterFreeman Orthopaedics & Sports MedicineUfstblutgy90-23-0665 History of Present illness Narrative* Rahel Pendleton [...] nursing note reviewed. Exam conducted with a risk consultant present. Vitals: Estimated body mass index is 31.62 kg/m as calculated from the following: Height as of 21: 5' 5 . Weight as of this encounter: 190 lb. BP: 128/78 Patient's last menstrual period was 10/04/2024 (approximate). ASSESSMENT & PLAN ICD-10-CM 1. Second trimester ([facility]) Z34.92 POCT urinalysis dipstick manually resulted 2. 23 weeks gestation of ([facility]) Z3A.23 3. Diabetes mellitus screening Z13.1 CBC Glucose tolerance, 1 hour CBC Glucose tolerance, 1 hour 4. Well woman exam with routine gynecological exam Z01.419 Pap Smear Return OB/Annual Exam: Patient presents today for a annual exam/routine obstetrics appointment. Patient is currently 81h6znwkfqggy. Patient states she is doing well but [...] of: Jaspreet Adams DO documented in this encounterFreeman Orthopaedics & Sports MedicineNpogceeubh37-46-6611 History of Present illness Narrative* Willy Avila [...] nursing note reviewed. Exam conducted with a risk consultant present. Vitals: Estimated body mass index is [...] of: Willy Avila NP documented in this encounterFreeman Orthopaedics & Sports MedicineKoinqagico66-29-5082 History of Present illness Narrative* Kalyn Jacob [...] or undercooked meat, and stay away from [facility]. Patient has also been advised to [...] by: Kalyn Jacob MA documented in this encounterFreeman Orthopaedics & Sports MedicinePvolhbsviy38-26-9309 History of Present illness Narrative* Nissa Matt [...] nursing note reviewed. Exam conducted with a risk consultant present. Vitals: Estimated body mass index is [...] ultrasound. Patient given proof of [facility]. Documented by Nissa Matt LPN on behalf of: Jaspreet Adams DO documented in this encounterNOMS HealthcareEvaluation noteNo assessment information availableFisher-Titus Medical Center Work Phone: Evaluation note* Diagnosis Hyperemesis gravidarum [...] HealthcareEvaluation note* Diagnosis 39 weeks gestation of (HHS-HCC) Third trimester (HHS-HCC) state, incidental documented in this encounter [facility] HealthcareInstructionsNot on filedocumented in this encounterSamaritan North Health [facility] Summary Purpose Family History Relationship Condition [...] section and content) DATE CREATED AUTHOR 06/25/2019 [facility] DATE CREATED AUTHOR AUTHOR'S ORGANIZ ATION 06/07/2022 [facility] DATE CREATED AUTHOR AUTHOR'S ORGANIZ ATION 01/09/2025 [facility] DATE CREATED AUTHOR AUTHOR'S ORGANIZ ATION 06/27/2025 [facility] EPIC Care Teams [...] (unrecogniz ed section and content) ReasonCommentsFollow-upReasonCommentsAmenorrheaReasonCommentsRoutine VisitReasonCommentsRoutine Grdnm14h 6d FOR RECORDS PERTAINING TO PATIENTS WHO [...] BE BASED ON THE PRIMARY CLINICAL RECORDS. [facility] provides no warranty or guarantee of the accuracy or completeness of information in this document.
--- OUTSIDE RECORDS SUMMARY | 2025-07-07 08:45 | XMS_ITS | Clinical Summary ---
Author Organization [facility] Healthcare Address [address] [place] [address] [address] Care Court Crier Name Role Phone Unavailable Primary Care Provider Unavailabl e Allergies Active AllergyReactionsCriticalityNoted DateCommentsPenicillin GUnknown 06/02/20253706Dmjwruiblwx69/28/2025 Other Reaction(s): Unknown Medications MedicationSigDispense QuantityRefillsLast FilledStart [...] 4times daily. 1 kit /30/2025Discontinued Encounters DateTypeDepartmentCare YhaiEhmqliuxmdh23/06/2025Clinisync Result Encounter NOMS External Department Unsolicited AngieTyrell, DO 5Clinisync Result Encounter NOMS External Department Unsolicited AngieEleniy, DO 5Clinisync Result Encounter NOMS External Department Unsolicited Angie Tyrell, DO 06/30/2025linisync Result Encounter NOMS External Department Unsolicited Angie Tyrell, DO 06/26/2025 9:20 AM EDTRoutine NOMS Kadie OBMICKYN [address] [place] [place] [address] Deyanira Martinez PA 39 weeks gestation of ([facility]); Third trimester ([facility])06/26/2025amb flowsheet NOMS Kadie VARGAS [address] [place] [address] Deyanira Martinez PA 06/24/2025Patient Outreach NOMS [facility] [address] [place] [address] Deyanira Phillips LPN 06/23/2025linisync Result Encounter NOMS External Department Unsolicited Tyrell Admas, DO 06/19/2025 9:40 AM EDTRoutine NOMS Kadie VARGAS [address] [place] [place] [address] Deyanira Martinez PA Third trimester ([facility]); 38 weeks gestation of ([facility])06/19/2025amboo flowsheet NOMS Kadie OBBRADLEY [address] [place] [address] Deyanira Martinez PA 06/12/2025 9:40 AM EDTRoutine NOMS Kadie OBGYN [address] [place] [address] Tyrell Adams, DO Third trimester ([facility]); 37 weeks gestation of ([facility])06/12/2025amboo flowsheet NOMS [facility]BGYN [address] [facility] [place] [address] [place] [phone] Tyrell Adams, DO 06/05/2025Telephone N[facility] [place] [facility] [address] [facility] [place] [address] [place] [phone] Britt Christensen MA 06/02/2025 11:20 AM EDTRoutine NOMS [facility] [address] [facility] [place] [address] [place] [phone] Nabila Avila NP 35 weeks gestation of ([facility]); Third trimester ([facility])06/02/2025linisync Result Encounter NOMS External Department Unsolicited Tyrell Adams, DO 05/29/2025bstract NOMS [facility] [address] [place] [address] Deyanira Phillips LPN 05/26/2025Patient Outreach NOMS [facility] [address] [place] [address] Deyanira Phillips LPN 05/26/2025linisync Result Encounter NOMS External Department Unsolicited Tyrell Adams, DO 05/23/2025bstract N[facility] [place] [facility] [address] [facility] [place] [address] [place] [address] Tyrell Adams, DO 05/20/2025linisync Result Encounter NOMS External Department Unsolicited Tyrell Adams, DO 05/19/2025linisync Result Encounter NOMS External Department Unsolicited Tyrell Adams, DO 05/15/2025 9:50 AM EDTRoutine NOMS [facility] [address] [facility] [place] [address] [place] [address] Deyanira Martinez, PA 33 weeks gestation of ([facility]); Third trimester ([facility]); Gestational diabetes mellitus (GDM), antepartum, gestational diabetes method of control unspecified([facility])5Bamboo flowsheet NOMS Kadie VARGAS [address] [facility] [place] [address] [place] [address] Deyanira Martinez PA 04/30/2025 3:00 PM EDTRoutine NOMS Kadie Zamora [facility] [place] [address] [place] [address] Tyrell Adams DO 31 weeks gestation of ([facility]); Third trimester ([facility]); Gestational diabetes mellitus (GDM), antepartum, gestational diabetes method of control unspecified([facility])04/30/2025 2:30 PM EDTAncillary Procedure NOMS Kadie Zamora [facility] [place] [address] [place] [address] Size of fetus inconsistent with dates in second trimester ([facility])04/17/2025 9:50 AM EDTRoutine NOMS Kadie Zamora [facility] [place] [address] [place] [address] Deyanira Martinez PA Size of fetus inconsistent with dates in second trimester ([facility]) (Primary Dx); Third trimester ([facility]); 29 weeks gestation of ([facility])5Bamboo flowsheet NOMS Kadie VARGAS [address] [facility] [place] [address] [place] [address] Deyanira Martinez PA from Last 3 Months Social History Tobacco UseTypesPacks/DayYears UsedDateSmoking Tobacco: Never AssessedPHQ-2 AnswerDate RecordedPatient Health Questionnaire-2 Repyp726 Estimated Date of KbkhwwviBjptfjbwDxn94/04/2025ased on UltrasoundSex and Gender InformationValueDate RecordedSex Assigned at NoydoWqmdls82/27/2025 5:56 PM EDT Legal LqnXpdsqs51/15/2023 7:00 PM EDTGender WhaycopwWbrzqf49/27/2025 5:56 PM EDT Sexual OrientationNot on file Last Filed Vital Signs Vital SignReadingTime TakenCommentsBlood Dpbdqmgz340/8010/ 9:45 AM EDT Pulse--Temperature--Respiratory Rate--Oxygen Saturation--Inhaled Oxygen Concentration--Ksjijq114 kg (233 lb 12.8 oz)06/26/2025 9:45 AM YUNOabtlo333.1 cm (5' 5 )12/01/2020 12:00 PM EDTBody Mass Index38.9112/01/2020 12:00 PM EDT Plan of Treatment DateTypeDepartmentCare Team (Latest Contact Info)Wcasogfwwpr03/16/2025 10:30 AM ESTPostpartum Visit NOMS [facility] [address] [facility] [place] [place] [phone] Deyanira Martinez PA [address] [facility] [address] [place] [address] Procedures Procedure NamePriorityDate/TimeAssociated DiagnosisCommentsALL CBC WITH AUTO DKPCFgjxelr16/06/2025 6:10 AM EST HP CBC WITH PLATELET NO KWWKLVZIWBSNYesymtr74/04/2025 10:55 PM EST TB[facility] DRUG SCREEN RAPID (URINE)Zxugbzk8507/01/2025 10:20 PM EST US OB BPP W NON-FOGYXM2906/30/2025 11:30 AM EST ISEHQDAYOvcgdjy58/03/2025 10:40 AM EST POCT URINALYSIS TPHTYYZMFadcwhd68/30/2025 9:55 AM EDT 39 weeks gestation of ([facility]) Third trimester ([facility]) US OB BPP W NON-SAFVTH7106/23/2025 10:45 AM EDT POCT URINALYSIS HMODTMEBDqaqkwr07/23/2025 10:26 AM EDT 38 weeks gestation of ([facility]) POCT URINALYSIS DYUPRELKYtkwbcc98/16/2025 9:56 AM EDT Third trimester ([facility]) POCT URINALYSIS WEFPGIYUJeehocy48/06/2025 11:53 AM EDT 35 weeks gestation of ([facility]) US OB BPP W NON-GINCWP1406/02/2025 10:52 AM EDT US OB BPP W NON-PMWGCE7205/26/2025 11:39 AM EDT US AMNIOTIC FLUID WOSCSG9505/20/2025 11:33 AM EDT MHPT QRYCGNZZRTUftpsla02/22/2025 11:00 AM EDT CCF SGTZTnumkuo28/22/2025 11:00 AM EDT SRMCOH PROTHROMBIN TIME INR W/O SJINNdttuwp33/22/2025 11:00 AM EDT C[facility] ZBVPotaqsv43/22/2025 11:00 AM EDT [facility] GVFMyvwzzk29/22/2025 11:00 AM EDT ALL URIC EOAVAinxemt91/22/2025 11:00 AM EDT TBH MBABRQYTZNQyvqhat49/22/2025 11:00 AM EDT ALL YZDAvzcmia73/22/2025 11:00 AM EDT ALL CBC WITH AUTO NYLHPevmsvv38/22/2025 11:00 AM EDT US OB BPP W NON-QXAVPY6905/19/2025 10:54 AM EDT TB[facility] URINE T PROTEIN CREAT QSJCELmwhjgu03/22/2025 10:50 AM EDT POCT URINALYSIS BJLQOYPYDhsylnb59/18/2025 10:08 AM EDT 33 weeks gestation of ([facility]) Third trimester ([facility]) POCT URINALYSIS KFYOTBAWJgjmzcz80/03/2025 3:11 PM EDT 31 weeks gestation of ([facility]) Third trimester ([facility]) US OB FOLLOW UP TRANSABDOMINAL BVMWGDJDCuyuyek73/03/2025 2:49 PM EDT Size of fetus inconsistent with dates in second trimester ([facility]) POCT URINALYSIS VNXDHWIWAmpuecz78/21/2025 10:45 AM EDT Third trimester ([facility]) 29 weeks gestation of ([facility]) from Last 3 Months Results * (ABNORMAL) ALL CBC WITH AUTO DIFF (07/03/2025 6:10 AM EST) Only the most recent of2 resultswithin the time period is included. ComponentValueRef RangeTest MethodAnalysis TimePerformed AtPathologist Signature TBH WBC11.5(H)4.0 - 11.0 10 3/uLTBHTBH RBC3.53(L)4.20 - 5.40 10 6/uLTBHTBH HGB 10.8(L)12.0 - 16.0 g/dLTBHTBH HCT31.2(L)36.0 - 48.0 %TBHTBH MCV88.481.0 - 99.0 fLTBHTBH MCH30.626.7 - 34.0 pgTBHTBH MCHC34.629.9 - 35.2 g/dLTBHTBH RDW13.211.0 - 15.0 %TBHTBH EMY189066 - 450 10 3/uLTBHTBH MPV9.3(L)9.5 - 13.5 fLTBH NEUTROPHILS PERCENT AUTO74.643.0 - 75.0 %TBHLYMPHOCYTES PERCENT AUTO16.2(L)20.5 - 60.0 %TBHMONOCYTES PERCENT AUTO7.71.7 - 12.0 %TBHTBH EO %0.6(L)0.9 - 7.0 %TBH BASOPHILS PERCENT AUTO0.30.2 - 2.0 %TBHIMMATURE GRANULOCYTES PCT AUTO0.6(H)0.0 - 0.5 %TBHNEUTROPHILS ABSOLUTE AUTO8.6(H)1.4 - 6.5 10 3/uLTBHLYMPHOCYTES ABSOLUTE AUTO1.91.2 - 3.8 10 3/uLTBHMONOCYTES ABSOLUTE AUTO0.9(H)0.3 - 0.8 10 3/uLTBHTBH EO #0.10.0 - 0.7 10 3/uLTBHBASOPHILS ABSOLUTE AUTO0.00.0 - 0.1 10 3/uLTBH IMMATURE GRANULOCYTES ABS AUTO0.07(H)0.00 - 0.03 10 3/uLTBHSpecimen (Source) Anatomical Location / LateralityCollection Method / VolumeCollection Time Received Time07/03/2025 6:10 AM EST07/03/2025 6:14 AM EST Narrative CLINISYNC - 07/03/2025 6:20 AM EST Authorizing ProviderResult TypeResult StatusCorey Angie DOCLINISYNCFinal Result Performing OrganizationAddressCity/State/ZIP CodePhone Number [facility] * (ABNORMAL) [facility] CBC WITH PLATELET NO DIFFERENTIAL (07/01/2025 10:55 PM EST) ComponentValueRef RangeTest MethodAnalysis TimePerformed AtPathologist SignatureTBH WBC9.14.0 - 11.0 10 3/uLTBHTBH RBC4.03(L)4.20 - 5.40 10 6/uLTBH TBH HGB12.212.0 - 16.0 g/dLTBHTBH HCT35.3(L)36.0 - 48.0 %TBHTBH MCV87.681.0 - 99.0 fLTBHTBH MCH30.326.7 - 34.0 pgTBHTBH MCHC34.629.9 - 35.2 g/dLTBHTBH RDW 12.911.0 - 15.0 %TBHTBH NMI425646 - 450 10 3/uLTBHTBH MPV10.19.5 - 13.5 fLTBH Specimen (Source)Anatomical Location / LateralityCollection Method / Volume Collection TimeReceived Time07/01/2025 10:55 PM EST07/01/2025 11:49 PM EST Narrative CLINISYNC - 07/02/2025 12:00 AM EST Authorizing ProviderResult TypeResult StatusCorey Angie DOCLINISYNCFinal Result Performing OrganizationAddressCity/State/ZIP CodePhone Number [facility] * [facility] DRUG SCREEN RAPID (URINE) (07/01/2025 10:20 PM EST)ComponentValueRef Range Test MethodAnalysis TimePerformed AtPathologist SignatureCANNABINOID SCREEN URINENEGATIVENEGATIVETBHPHENCYCLIDINE SCREEN URINENEGATIVENEGATIVETBHCOCAINE SCREEN URINENEGATIVENEGATIVETBHMETHAMPHETAMINES SCREEN URINENEGATIVENEGATIVE TBHOPIATE SCREEN URINENEGATIVENEGATIVETBHAMPHETAMINE SCREEN URINENEGATIVE NEGATIVETBHBENZODIAZEPINES SCREEN URINENEGATIVENEGATIVETBHTRICYCLIC ANTIDEPRESSANT URINENEGATIVENEGATIVETBHMETHADONE SCREEN URINENEGATIVENEGATIVE TBHBARBITURATES SCREEN URINENEGATIVENEGATIVETBHOXYCODONE SCREEN URINENEGATIVE NEGATIVETBHBUPRENORPHINE SCREEN URINENEGATIVENEGATIVETBHComment: DRUG CLASS TEST SYSTEM CUT-OFF CONCENTRATIONS ARE FOLLOWS: AMP (Amphetamine): 500 ng/mL BAR (Barbiturates): 200 ng/mL BZO (Benzodiazepines): 150 ng/mL BUP (Buprenorphine): 10 ng/mL VILMA (Cocaine): 150 ng/mL mAMP (Methamphetamine): 500 ng/mL MTD (Methadone): 200 ng/mL OPI (Opiates): 100 ng/mL OXY (Oxycodone): 100 ng/mL PCP (Phencyclidine): 25 ng/mL THC (Cannabinoids): 50 ng/mL TCA (Trycyclic Antidepressants): 300 ng/mL Specimen (Source)Anatomical Location / LateralityCollection Method / Volume Collection TimeReceived Time07/01/2025 10:20 PM EST07/01/2025 11:49 PM EST Narrative CLINISYNC - 07/02/2025 12:04 AM EST Authorizing ProviderResult TypeResult StatusCorey Angie DOCLINISYNCFinal Result Performing OrganizationAddressCity/State/ZIP CodePhone Number [facility] * US OB BPP W NON-STRESS (06/30/2025 11:30 AM EST) Only the most recent of5 resultswithin the time period is included. Anatomical RegionLateralityModalityOtherSpecimen (Source)Anatomical Location / LateralityCollection Method / VolumeCollection TimeReceived Time06/30/2025 11:30 AM EST Narrative 06/30/2025 11:33 AM EST [facility] ?[address] ? [place] [address] ? Ultrasound Report ? Signed ? Patient: ALLEY,CHENTE N ?MR#: [id number] ?? : 1995 ?Acct:[id number] ?? Age/Sex: 29 / F ?ADM Date: 06/30/25 ?? Loc: [facility] ??250-1 ? Attending Dr: Tyrell Adams D.O. ? Ordering Physician: Tyrell Adams D.O. ?? Date of Service: 06/30/25 ?? Procedure(s): US OB BPP w non-stress ?? Accession Number(s): [id number] ? cc: Tyrell Adams D.O.; Physician,Non-Staff M.DPeggy ? [facility] ? [address] ? [place] [address] ? Patient Name: ?? CHENTE GONZALEZ ? MRN: [facility]:[id number] ? date: 1995 ?Sex: F ?? Assigned Patient Location: [facility] ?? Current Patient Location: [facility] ?? Accession/Order Number: [id number] ?? Exam Date: 06/30/2025 ??10:12 ?Report Date: [...] Dictation Location: RADIO-PC-02 ? Electronically authenticated by: [id number] ??Y ?? Date: 06/30/2025 ??11:30 ? Dictated By: ?Rahel Mae M.D. ? Signed By: ?11/03/25 1133 ? DD/ 1130 ? TD/TT: ? Building Construction Professor: Procedure Note Radiology, Radiologist, MD - 06/30/2025 [place] [address] Ultrasound Report Signed Patient: CHENTE GONZALEZ NMR#: [id number] : 1995Acct:[id number] Age/Sex: 29 / FADM Date: 06/30/25 Loc: [facility] 250-[address]: Tyrell Adams D.O. Ordering Physician: Tyrell Adams D.O. Date of Service: 06/30/25 Procedure(s): OB BPP w non-stress Accession Number(s): [id number] cc: Tyrell Adams D.O.; Physician,Non-Staff M.Tony The [place] [id number] Patient Name: CHENTE GONZALEZ MRN: [id number] date: 1995 Sex: F Assigned Patient Location: [facility] Current Patient Location: [facility] Accession/Order Number: [id number] Exam Date: 06/30/2025 10:12 Report Date: 06/30/2025 [...] Mae M.D. 06/30/2025 11:30 AM Dictation Location: [place] [address] Electronically authenticated by: [id number] Y Date: 1:30 Dictated By: Rahel Mae M.D. Signed By:06/30/25 1133 DD/ 1130 TD/TT: Building Construction Professor: Authorizing ProviderResult TypeResult StatusCorey Angie DOCLINISYNC IMAGINGFinal Result * AMNISURE (06/30/2025 10:40 AM EST)ComponentValueRef RangeTest MethodAnalysis TimePerformed AtPathologist SignatureTBH AMNISURENEGATIVENEGATIVETBHSpecimen (Source)Anatomical Location / LateralityCollection Method / VolumeCollection TimeReceived Time06/30/2025 10:40 AM EST06/30/2025 10:56 AM EST Narrative CLINISYNC - 06/30/2025 11:12 AM EST Authorizing ProviderResult TypeResult StatusCorey Angie DOLAB BLOOD ORDERABLES Final ResultPerforming OrganizationAddressCity/State/ZIP CodePhone Number [facility] * (ABNORMAL) POCT urinalysis dipstick manually resulted (06/26/2025 9:55 AM EDT) Only the most recent of7 [...] / Laterality Collection Method / VolumeCollection TimeReceived BnmbUdzmj87/30/2025 9:55 AM EDT Narrative Authorizing ProviderResult TypeResult StatusAmy [facility] TEST ENTER/EDIT ORDERABLESFinal Result * US AMNIOTIC FLUID VOLUME (05/20/2025 11:33 AM EDT)Anatomical RegionLaterality ModalityRadiographic ImagingSpecimen (Source)Anatomical Location / Laterality Collection Method / VolumeCollection TimeReceived Time05/20/2025 11:33 AM EDT Narrative 05/20/2025 11:36 AM EDT [facility] ?[address] ? [place] [address] ? Ultrasound Report ? Signed ? Patient: ALLEY,CHENTE N ?MR#: [id number] ?? : 1995 ?Acct:[id number] ?? Age/Sex: 29 / F ?ADM Date: 05/20/25 ?? Loc: [facility] ??250-1 ? Attending Dr: Tyrell Adams D.O. ? Ordering Physician: Tyrell Adams D.O. ?? Date of Service: 05/20/25 ?? Procedure(s): US OB amniotic fluid vol ?? Accession Number(s): [id number] ? cc: Tyrell Adams D.O.; Physician,Non-Staff M.D. ? [facility] ? [address] ? [place] [address] ? Patient Name: ?? CHENTE GONZALEZ ? MRN: [id number] ? date: 1995 ?Sex: F ?? Assigned Patient Location: [facility] ?? Current Patient Location: US ?? Accession/Order Number: [id number] ?? Exam Date: 05/20/2025 ??11:10 ?Report Date: 05/20/2025 ??11:33 ? At the request of: ?? TYRELL ??ANGIE ??DO ? Procedure: ??US OB amniotic fluid vol ? ULTRASOUND OB AMNIOTIC FLUID VOLUME ? CLINICAL DATA: Oligohydramnios ? COMPARISON: [facility] 05/17/2025 ? There is a single live [...] Dictation Location: RADIO-PC-30 ? Electronically authenticated by: [id number] ??Y ?? Date: 05/20/2025 ??11:33 ? Dictated By: ?Rahel Mae M.D. ? Signed By: ?05/20/25 1136 ? DD/ 1133 ? TD/TT: ? Building Construction Professor: Procedure Note Radiology, Radiologist, - 05/20/2025 [place] [address] Ultrasound Report Signed Patient: CHENTE GONZALEZ NMR#: [id number] : 1995Acct:[id number] Age/Sex: 29 / FADM Date: 05/20/25 Loc: [facility] 250-[address]: Tyrell Adams D.O. Ordering Physician: Tyrell Adams D.O. Date of Service: 05/20/25 Procedure(s): US OB amniotic fluid vol Accession Number(s): [id number] cc: Tyrell Adams D.O.; Physician,Non-Staff M.DPeggy The [address] [address] Patient Name: CHENTE GONZALEZ MRN: [id number] date: 1995 Sex: F Assigned Patient Location: [facility] Current Patient Location: [place] Accession/Order Number: [id number] Exam Date: 05/20/2025 11:10 Report Date: 05/20/2025 [...] Mae M.D. 05/20/2025 11:33 AM Dictation Location: [place] [address] Electronically authenticated by: [id number] Y Date: 1:33 Dictated By: Rahel Mae M.D. Signed By:05/20/25 1136 DD/ 1133 TD/TT: Building Construction Professor: Authorizing ProviderResult TypeResult StatusTyrell Adams DOIMG XR PROCEDURESFinal Result * TBH CREATININE (05/19/2025 11:00 AM EDT)ComponentValueRef RangeTest Method Analysis TimePerformed AtPathologist SignatureCREATININE0.650.55 - 1.02 mg/dL TBHTBH EGFR-AF TOGOLESE>60>=60 mL/min/1.73m 2TBHTBH EGFR-NON AF TOGOLESE>60 >=60 mL/min/1.73m 2TBHSpecimen (Source)Anatomical Location / Laterality [...] Angie DOCLINISYNCFinal Result Performing OrganizationAddressCity/State/ZIP CodePhone Number [facility] * (ABNORMAL) MHPT FIBRINOGEN (05/19/2025 11:00 AM EDT)ComponentValueRef Range Test MethodAnalysis TimePerformed AtPathologist OzgxtdhahGLPFOYYHVR674(H)200 - 400 mg/dLTBHSpecimen (Source)Anatomical Location / LateralityCollection Method / VolumeCollection TimeReceived Time05/19/2025 11:00 AM EDT05/19/2025 11:06 AM EDT Narrative CLINISYNC - 05/19/2025 11:43 AM EDT Authorizing ProviderResult TypeResult StatusCorey Angie DOCLINISYNCFinal Result Performing OrganizationAddressCity/State/ZIP CodePhone Number [facility] * CCF AST (05/19/2025 11:00 AM EDT)ComponentValueRef RangeTest MethodAnalysis TimePerformed AtPathologist SignatureASPARTATE AMINO DVOYMEPKFJB3234 - 37 U/L TBHSpecimen (Source)Anatomical Location / LateralityCollection Method / Volume Collection TimeReceived Time05/19/2025 11:00 AM EDT05/19/2025 11:06 AM EDT Narrative CLINISYNC - 05/19/2025 11:31 AM EDT Authorizing ProviderResult TypeResult StatusCorey Angie DOCLINISYNCFinal Result Performing OrganizationAddressCity/State/ZIP CodePhone Number [facility] * [facility] APTT (05/19/2025 11:00 AM EDT)ComponentValueRef RangeTest MethodAnalysis TimePerformed AtPathologist SignaturePARTIAL THROMBOPLASTIN TIME24.822.3 - 36.2 secTBHSpecimen (Source)Anatomical Location / LateralityCollection Method / VolumeCollection TimeReceived Time05/19/2025 11:00 AM EDT05/19/2025 11:06 AM EDT Narrative CLINISYAL - 05/19/2025 11:43 AM EDT Authorizing ProviderResult TypeResult StatusCorey Angie DOCLINISYNCFinal Result Performing OrganizationAddressCity/State/ZIP CodePhone Number [facility] * CCF ALT (05/19/2025 11:00 AM EDT)ComponentValueRef RangeTest MethodAnalysis TimePerformed AtPathologist SignatureALANINE MFSUJKQKJWIIMNFQ0665 - 59 U/LTBH Specimen (Source)Anatomical Location / LateralityCollection Method / Volume Collection TimeReceived Time05/19/2025 11:00 AM EDT05/19/2025 11:06 AM EDT Narrative CLINISYAL - 05/19/2025 11:31 AM EDT Authorizing ProviderResult TypeResult StatusCorey Angie DOCLINISYNCFinal Result Performing OrganizationAddressCity/State/ZIP CodePhone Number [facility] * ALL URIC ACID (05/19/2025 11:00 AM EDT)ComponentValueRef RangeTest Method Analysis TimePerformed AtPathologist SignatureURIC ACID4.42.6 - 6.0 mg/dLTBH Specimen (Source)Anatomical Location / LateralityCollection Method / Volume Collection TimeReceived Time05/19/2025 11:00 AM EDT05/19/2025 11:06 AM EDT Narrative CLINISYAL - 05/19/2025 11:31 AM EDT Authorizing ProviderResult TypeResult StatusCorey Angie DOCLINISYNCFinal Result Performing OrganizationAddressty/State/ZIP CodePhone Number [facility] * ALL BUN (05/19/2025 11:00 AM EDT)ComponentValueRef RangeTest MethodAnalysis TimePerformed AtPathologist SignatureBLOOD UREA NITROGEN7.07.0 - 18.0 mg/dLTBH Specimen (Source)Anatomical Location / LateralityCollection Method / Volume Collection TimeReceived Time05/19/2025 11:00 AM EDT05/19/2025 11:06 AM EDT Narrative CLINISYNC - 05/19/2025 11:31 AM EDT Authorizing ProviderResult TypeResult StatusCorey Angie DOCLINISYNCFinal Result Performing OrganizationAddressCity/State/ZIP CodePhone Number [facility] * (ABNORMAL) [facility] URINE T PROTEIN CREAT RATIO (05/19/2025 10:50 AM EDT)Component ValueRef RangeTest MethodAnalysis TimePerformed AtPathologist SignatureTOTAL PROTEIN URINE RHFANP27.9(H)<=11.9 mg/dLTBHCREATININE URINE XGGNHK80.1120.00 - 300.00 mg/dLTBHPROTEIN CREATININE RATIO URINE0.72TBHSpecimen (Source) Anatomical Location / LateralityCollection Method / VolumeCollection Time Received Time05/19/2025 10:50 AM EDT05/19/2025 11:06 AM EDT Narrative MLAL - 05/19/2025 11:55 AM EDT Authorizing ProviderResult [...] BY: Ramana Lechuga MD Authorizing ProviderResult TypeResult StatusAmy Juan [facility]ORE[facility] OB US PROCEDURES Final Result from Last 3 Months Insurance
--- OUTSIDE RECORDS SUMMARY | 2025-07-07 08:45 | XMS_ITS | Encounter Summary ---
Author Organization [facility] Address [address] [place] [address] Care Team Providers Care A Class Lineman Name Role Phone Unavailable Primary Care Provider Unavailabl e Encounter Details DateTypeDepartmentCare Team (Latest Contact Info)Riegrwdgrwc26/04/2025Clinisync Result Encounter [facility] External Department Unsolicited Jaspreet Adams DO [address] [place] [address] Social History Tobacco UseTypesPacks/DayYears UsedDateSmoking Tobacco: Never AssessedPHQ-2 AnswerDate RecordedPatient Health Questionnaire-2 Ciivf941 Estimated Date of GoctviofZatdzafoTbr09/04/2025Based on UltrasoundSex and Gender InformationValueDate RecordedSex Assigned at SecpaSplmcs35/27/2025 5:56 PM EDT Legal LpkLhlkup79/15/2023 7:00 PM EDTGender KpnhamrrWexaqj59/27/2025 5:56 PM EDT Sexual OrientationNot on filedocumented as of this encounter Plan of Treatment DateTypeDepartmentCare Team (Latest Contact Info)Zmzsjckdvfa46/16/2025 10:30 AM ESTPostpartum Visit [facility] Kadie VARGAS [address] [place] [address] Deyanira Martinez PA [address] [place] [address] documented as of this encounter Procedures Procedure NamePriorityDate/TimeAssociated DiagnosisCommentsHMHP CBC WITH PLATELET NO FAYEOVMAQTAYKkpnsfm84/04/2025 10:55 PM EST TB DRUG SCREEN RAPID (URINE)Lipzngr6307/01/2025 10:20 PM EST documented in this encounter Results * (ABNORMAL) HP CBC WITH PLATELET NO DIFFERENTIAL (07/01/2025 10:55 PM EST) ComponentValueRef RangeTest MethodAnalysis TimePerformed AtPathologist SignatureTBH WBC9.14.0 - 11.0 10 3/uLTBHTBH RBC4.03(L)4.20 - 5.40 10 6/uLTBH TBH HGB12.212.0 - 16.0 g/dLTBHTBH HCT35.3(L)36.0 - 48.0 %TBHTBH MCV87.681.0 - 99.0 fLTBHTBH MCH30.326.7 - 34.0 pgTBHTBH MCHC34.629.9 - 35.2 g/dLTBHTBH RDW 12.911.0 - 15.0 %TBHTBH CJX772157 - 450 10 3/uLTBHTBH MPV10.19.5 - 13.5 fLTBH Specimen (Source)Anatomical Location / LateralityCollection Method / Volume Collection TimeReceived Time07/01/2025 10:55 PM EST07/01/2025 11:49 PM EST Narrative [facility] - 07/02/2025 12:00 AM EST Authorizing ProviderResult TypeResult StatusCorey Angie DOCLINISYNCFinal Result Performing OrganizationAddressCity/State/ZIP CodePhone Number [facility] * TB DRUG SCREEN RAPID (URINE) (07/01/2025 10:20 PM [...] DOCLINISYNCFinal Result Performing OrganizationAddressCity/State/ZIP CodePhone Number [facility] TB documented in this encounter Visit Diagnoses Not on filedocumented in this encounter
--- OUTSIDE RECORDS SUMMARY | 2025-07-07 08:45 | XMS_ITS | Encounter Summary ---
Author Organization [facility] Address [address] [place] [address] Care Team Providers Care Senior Care Manager Name Role Phone Unavailable Primary Care Provider Unavailabl e Encounter Details DateTypeDepartmentCare Team (Latest Contact Info)Qhknotdftad37/03/2025linisync Result Encounter [facility] External Department Unsolicited Jaspreet Adams DO [address] [place] [address] Social History Tobacco UseTypesPacks/DayYears UsedDateSmoking Tobacco: Never AssessedPHQ-2 AnswerDate RecordedPatient Health Questionnaire-2 Wrdmc235 Estimated Date of ZjqaerjdBexnjkrvUcp88/04/2025Based on UltrasoundSex and Gender InformationValueDate RecordedSex Assigned at OxoolIvsmdz99/27/2025 5:56 PM EDT Legal XfhYgaidw63/15/2023 7:00 PM EDTGender IxevirwyYwgrmg78/27/2025 5:56 PM EDT Sexual OrientationNot on filedocumented as of this encounter Plan of Treatment DateTypeDepartmentCare Team (Latest Contact Info)Cuyqlmkrnis49/16/2025 10:30 AM ESTPostpartum Visit [facility] Kadie VARGAS [address] [address] [place] [address] Deyanira Martinez PA [address] [place] [address] documented as of this encounter Procedures [...]
--- OUTSIDE RECORDS SUMMARY | 2025-07-07 08:45 | XMS_ITS | Encounter Summary ---
Author Organization [facility] Address [address] [place] [address] Care Team Providers Care Scribing Machine Operator Name Role Phone Unavailable Primary Care Provider Unavailabl e Encounter Details DateTypeDepartmentCare Team (Latest Contact Info)Yppqbdkltwt49/03/2025Clinisync Result Encounter [facility] External Department Unsolicited Tyrell Adams DO [address] [place] [address] Social History Tobacco UseTypesPacks/DayYears UsedDateSmoking Tobacco: Never AssessedPHQ-2 AnswerDate RecordedPatient Health Questionnaire-2 Aghul282 Estimated Date of OxffiireCmooxzzlQow76/04/2025Based on UltrasoundSex and Gender InformationValueDate RecordedSex Assigned at LdvaiMmlcje22/27/2025 5:56 PM EDT Legal XyoEdnyjy76/15/2023 7:00 PM EDTGender GwxlbeloIzceyg51/27/2025 5:56 PM EDT Sexual OrientationNot on filedocumented as of this encounter Plan of Treatment DateTypeDepartmentCare Team (Latest Contact Info)Yuhdamddpmn45/16/2025 10:30 AM ESTPostpartum Visit [facility] Kadie OBGYN [address] [place] [address] Deyanira Martinez PA [address] [place] [address] documented as of this encounter Procedures Procedure NamePriorityDate/TimeAssociated DiagnosisCommentsUS OB BPP W NON-OVNGWS5506/30/2025 11:30 AM EST documented in this encounter Results * US OB BPP W NON-STRESS (06/30/2025 11:30 AM EST)Anatomical Region LateralityModalityOtherSpecimen (Source)Anatomical Location / Laterality Collection Method / VolumeCollection TimeReceived Time06/30/2025 11:30 AM EST Narrative 06/30/2025 11:33 AM EST [facility] ?[address] ? [place] [address] ? Ultrasound Report ? Signed ? Patient: CHERYL,CHENTE N ?MR#: [id number] ?? : 1995 ?Acct:[id number] ?? Age/Sex: 29 / F ?ADM Date: 06/30/25 ?? Loc: [facility] ??250-1 ? Attending Dr: Tyrell Adams D.O. ? Ordering Physician: Tyrell Adams D.O. ?? Date of Service: 06/30/25 ?? Procedure(s): US OB BPP w non-stress ?? Accession Number(s): [id number] ? cc: Tyrell Adams D.O.; Physician,Non-Staff M.D. ? [facility] ? [address] ? [place] [address] ? Patient Name: ?? CHENTE GONZALEZ ? MRN: [facility]:[id number] ? date: 1995 ?Sex: F ?? Assigned Patient Location: [facility] ?? Current Patient Location: [facility] ?? Accession/Order Number: [id number] ?? Exam Date: 06/30/2025 ??10:12 ?Report Date: [...] Dictation Location: RADIO-PC-02 ? Electronically authenticated by: [id number] ??Y ?? Date: 06/30/2025 ??11:30 ? Dictated By: ?Rahel Mae M.D. ? Signed By: ?11/03/25 1133 ? DD/ 1130 ? TD/TT: ? Civil Geotechnical Engineer: Procedure Note Radiology, Radiologist, MD - 06/30/2025 [place] [address] Ultrasound Report Signed Patient: CHENTE GONZALEZ NMR#: [id number] : 1995Acct:[id number] Age/Sex: 29 FADM Date: 06/30/25 Loc: [facility] 250-[address]: Tyrell Adams D.O. Ordering Physician: Tyrell Adams D.O. Date of Service: 06/30/25 Procedure(s): OB BPP w non-stress Accession Number(s): [id number] cc: Tyrell Adams D.O.; Physician,Non-Staff M.DPeggy The [place] [address] Patient Name: CHENTE GONZALEZ MRN: [facility]:[id number] date: 1995 Sex: F Assigned Patient Location: [facility] Current Patient Location: [facility] Accession/Order Number: [id number] Exam Date: 06/30/2025 10:12 Report Date: 06/30/2025 [...] Mae M.D. 06/30/2025 11:30 AM Dictation Location: [place] [address] Electronically authenticated by: [id number] Y Date: :30 Dictated By: Rahel Mae M.D. Signed By:06/30/25 1133 DD/ 1130 TD/TT: Civil Geotechnical Engineer: Authorizing ProviderResult TypeResult StatusCorey Angie DOCLINISYNC IMAGINGFinal Result documented in this encounter Visit Diagnoses Not on filedocumented in this encounter
--- OUTSIDE RECORDS SUMMARY | 2025-07-07 08:45 | XMS_ITS ---
Author Organization [facility] Address [address] [place] [address] Care Team Providers Care Career Coach Name Role Phone Unavailable Primary Care Provider Unavailabl e Inpatient Discharge Transitional Care Management (TCM) Status:Identified (Enrolling) Start date:07/04/2025 Enrollment reason:Identified using hospital discharge data Overview Patient discharged from [facility] on 07/04. Please contact for hospital [facility]ENN[facility]O and schedulefollow-up appointment within 7-14 days. Continued Care and Services Coordination
--- OUTSIDE RECORDS SUMMARY | 2025-07-07 08:45 | XMS_ITS | Encounter Summary ---
Author Organization [facility] Address [address] [place] [address] Care Team Providers Care Dog Handler Name Role Phone Unavailable Primary Care Provider Unavailabl e Encounter Details DateTypeDepartmentCare Team (Latest Contact Info)Digbogwyqby53/06/2025Clinisync Result Encounter [facility] External Department Unsolicited Jaspreet Adams DO [address] [place] [address] Social History Tobacco UseTypesPacks/DayYears UsedDateSmoking Tobacco: Never AssessedPHQ-2 AnswerDate RecordedPatient Health Questionnaire-2 Hluzq272 Estimated Date of AlzlclvnXwnvbuqzJwq43/04/2025Based on UltrasoundSex and Gender InformationValueDate RecordedSex Assigned at OmwiuFbrlpq07/27/2025 5:56 PM EDT Legal KztHtwsqv05/15/2023 7:00 PM EDTGender TjhebsllNfnazk40/27/2025 5:56 PM EDT Sexual OrientationNot on filedocumented as of this encounter Plan of Treatment DateTypeDepartmentCare Team (Latest Contact Info)Xjjzojamhwx50/16/2025 10:30 AM ESTPostpartum Visit [facility] Kadie VARGAS [address] [place] [address] Deyanira Martinez PA [address] [place] [address] documented as of this encounter Procedures Procedure NamePriorityDate/TimeAssociated DiagnosisCommentsALL CBC WITH AUTO LLNGOpdhbre62/01/2025 6:10 AM EST documented in this encounter Results * (ABNORMAL) ALL CBC WITH AUTO DIFF (07/03/2025 6:10 AM EST)ComponentValueRef RangeTest MethodAnalysis TimePerformed AtPathologist SignatureTBH WBC11.5(H) 4.0 - 11.0 10 3/uLTBHTBH RBC3.53(L)4.20 - 5.40 10 6/uLTBHTBH HGB10.8(L)12.0 - 16.0 g/dLTBHTBH HCT31.2(L)36.0 - 48.0 %TBHTBH MCV88.481.0 - 99.0 fLTBHTBH MCH 30.626.7 - 34.0 pgTBHTBH MCHC34.629.9 - 35.2 g/dLTBHTBH RDW13.211.0 - 15.0 % TBHTBH FHJ643262 - 450 10 3/uLTBHTBH MPV9.3(L)9.5 - 13.5 fLTBHNEUTROPHILS PERCENT AUTO74.643.0 - 75.0 %TBHLYMPHOCYTES PERCENT AUTO16.2(L)20.5 - 60.0 % TBHMONOCYTES PERCENT AUTO7.71.7 - 12.0 %TBHTBH EO %0.6(L)0.9 - 7.0 %TBH BASOPHILS PERCENT AUTO0.30.2 - 2.0 %TBHIMMATURE GRANULOCYTES PCT AUTO0.6(H)0.0 - 0.5 %TBHNEUTROPHILS ABSOLUTE AUTO8.6(H)1.4 - 6.5 10 3/uLTBHLYMPHOCYTES ABSOLUTE AUTO1.91.2 - 3.8 10 3/uLTBHMONOCYTES ABSOLUTE AUTO0.9(H)0.3 - 0.8 10 3/uLTBHTBH EO #0.10.0 - 0.7 10 3/uLTBHBASOPHILS ABSOLUTE AUTO0.00.0 - 0.1 10 3/uLTBHIMMATURE GRANULOCYTES ABS AUTO0.07(H)0.00 - 0.03 10 3/uLTBHSpecimen (Source)Anatomical Location / LateralityCollection Method / VolumeCollection TimeReceived Time07/03/2025 6:10 AM EST07/03/2025 6:14 AM EST Narrative [facility] - 07/03/2025 6:20 AM EST Authorizing ProviderResult TypeResult StatusCorey Angie DOCLINISYNCFinal Result Performing OrganizationAddressCity/State/ZIP CodePhone Number [facility] TB documented in this encounter Visit Diagnoses Not on filedocumented in this encounter
--- OUTSIDE RECORDS SUMMARY | 2025-07-07 08:45 | XMS_ITS | Clinical Summary ---
Author Organization [employer] s tem Address [id number] [address] [place] [address] Care Team Providers Care Reel Slitter Name Role Phone Unavailable Primary Care Provider Unavailabl e Social History Tobacco UseTypesPacks/DayYears UsedDateSmoking Tobacco: Never Assessed Estimated Date of BrxtpeqbMxfzfpihFor42/04/2025Based on UltrasoundSex and Gender InformationValueDate RecordedSex Assigned at BirthNot on fileLegal SexFemale 03/26/2025 9:06 AM EDTGender IdentityNot on fileSexual OrientationNot on file Plan of Treatment Health MaintenanceDue DateLast DoneCommentsDepression Ddznucgci25/11/2010Tobacco Mjerfvonu67/11/2010dult BMI Btafhxnpl12/11/2016DTaP,Tdap and Td Vaccines (1 - Tdap)2016Pap Smear2018Influenza Ygwanrp2304/28/2025RSV ( or age 60+ yrs) (No Doses Required)Completed Medical Devices Not on file
--- NOTE | 2025-07-07 16:42 | PC.NURSE ---
Chente, reji other and 5 day old daughter, Arline, arrive for follow up. Parents states are doing well and feel baby is doing well also. Parents have not had a stool since just prior to discharge from hospital. Parents report baby waking to nurse every 2 hours one 3 hour stretch at night. Denies nipple pain or tenderness with latching and is changing 5-6 wet diapers daily. Baby sleeps between feeds. Parents states uses swaddle all the time Discussed use of swaddles and integration of reflexes. Parents voice understanding of need for baby to express reflexes as appropriate. Chente with VSS and assessment WNL. States have been nursing so much, I am not sure if milk is in. Breast softly firm, expresses drops of milk. Baby to breast after weight check and assessment. Mom has hand on baby's head and just moves head inf for latch. Demo of easier hand placement and latch. Baby latches well. Mom continues to move hand to cover head. Flexes chin to chest of baby and baby stops sucking. Explained chin lifted off chest allows for easier swallows for baby and mom tries to allow baby more flexed head back . Baby resumes feeding. Sucks are short and choppy, then after 5 minutes baby begins with long deep draws at breast. Obvious swallows noted. Feeds well for 20 minutes 1 breast. Baby Pamula with VSS and assessment WNL. Parents to keep scheduled appointment with PCP tomorrow and discuss stooling with the provider. Aware to call for concerns and of [facility] group for weight check and support. Will call after PCP appointment for further support appointment. Family leaves together. No concerns voiced.
[2025-07-07 16:47] VITALS: BP 132/84; PULSE 92; TEMP 37.1; O2SAT 96
== END 2025-07-07 16:48 | disposition home or self-care (01) ==
LOC: FBCO 08:41
PROVIDERS: Visit Provider Obstetrics & Gynecology
DX: Z39.1 Encounter for care and examination of lactating mother (principal)